=== PATIENT | female | born 1940 | race Caucasian/White ===

== ENCOUNTER 2023-05-11 09:53 | Outpatient (OUT) | payer MEDICARE, OTHER, SELFPAY ==
--- NOTE | 2023-05-11 09:56 | VEIN_ITS ---
Patient: DANIS MARTINO Exam Date: 05/11/2023 : 1940 Gender:F Ordering : DR UNA BACON M.D. Admission #: [id number] Family : DR Robert Lopez D.O. Order #: [id number] CLICK HERE TO VIEW EXAM RADIOLOGY REPORT PROCEDURE: FACILITY [facility] COMPREHENSIVE VEIN CENTER - OFFICE VISIT INITIAL COMPARISON: None. PROGRESS NOTES: [age] old female who presents with a 20 year history of bulging dilated veins, discolored and painful legs, swelling, cramping, edema. The patient's right leg symptoms are worse than the left. There has been a progression of symptoms over time. This increases with prolonged leg dependency. The patient describes an improvement with rest and elevation. The patient denies any signs and symptoms to suggest arterial ischemia. The patient describes a family history varicose veins on maternal side, diabetes, heart disease, cancer. The patient has drinking and smoking history of : Former smoker. Denies alcohol use. Patient has a past medical history significant for history of deep vein thrombosis, pulmonary hypertension, chronic venous insufficiency, back pain, arthritis, sciatica, diabetes. The patient has history of prior deep venous thrombus and pulmonary embolus. See separate history and physical for medication list. No prior treatment for varicose or spider veins. Past treatments have included use of compression stockings. After review of nurse notes, history and physical exam I discussed at length the pathophysiology of venous hypertension and possible treatments, therapies and strategies available. We discussed at length the importance of elevating the lower extremities above the level of the heart, increased physical activity and compression stocking use. Ultrasound venous reflux study performed today was discussed at length with the patient. The report demonstrates abnormally dilated and incompetent bilateral great saphenous and anterior accessory saphenous veins, numerous dilated incompetent branch saphenous varicosities, several incompetent applied science and technologies dean veins. PHYSICAL EXAM: The right leg demonstrates multiple varicosities, prominent reticular and spider veins, no ulceration, marked edema, moderate skin discoloration. The left leg demonstrates multiple varicosities, several reticular and spider veins, no ulceration, moderate edema, moderate skin discoloration. Both thighs, legs and feet were symmetrically warm to the touch. Good posterior tibial and dorsalis pedis pulses were present bilaterally. IMPRESSION: 1. Bilateral lower extremity venous insufficiency 2. Bilateral lower extremity varicose veins 3. Bilateral lower extremity subcutaneous edema 4. No flow significant arterial disease 5. CEAP: C4a, EC, AP, MA PLAN: 1. Continued use of compression stockings 2. Elevated legs and increased physical activity symptomatic relief 3. Endovenous laser ablation of right GSV, left GSV, right AASV, left AASV, bilateral microfoam chemical ablation, and bilateral sclerotherapy. Nurse notes, history and physical were reviewed and confirmed, see attached forms. The nurse was present throughout the physical exam and consultation Dictated by: Nick Sanchez M.D. on 05/11/2023 at 12:43 Approved by: Nick Sanchez M.D. on 05/11/2023 at 12:51
--- NOTE | 2023-05-11 09:56 | VEIN_ITS ---
Patient: DANIS MARTINO Exam Date: 05/11/2023 : 1940 Gender:F Ordering : DR UNA BACON M.D. Admission #: [id number] Family : DR Robert Lopez D.O. Order #: [id number] CLICK HERE TO VIEW EXAM RADIOLOGY REPORT PROCEDURE: VC EXT VENOUS REFLUX DEBRA LMTD COMPARISON: None. INDICATIONS: Pain due to varicose veins of bilateral legs I83.813 TECHNIQUE: Duplex imaging of the lower extremity to assess the deep and superficial venous system for the presence of deep or superficial venous incompetence and to document the location and severity of disease. The study includes evaluation of the great saphenous vein (GSV), anterior accessory saphenous vein (AASV) and small saphenous vein (SSV). Patient scanned in reverse Trendelenburg and standing. FINDINGS: RIGHT LOWER EXTREMITY: Saphenofemoral Junction Reflux: Yes 10.3mm 1.1 sec GSV: Diam (mm) Reflux/ Time (sec) Proximal Thigh 9.5 Yes 0.8 Mid Thigh 6.6 Yes 0.6 Distal Thigh 3.3 Yes 2.1 Prox Calf 5.5 Yes 1.7 Mid Calf 4.0 Yes 0.4 Saphenopopliteal Junction Reflux: 3.3mm Yes 0.5 SSV: Proximal Calf 3.6 Yes 0.2 Mid Calf 2.8 Yes 0.3 AASV: Proximal Thigh 5.5 Yes 2.1 Mid Thigh 5.5 Yes 1.6 Distal Thigh Thrombi: No acute or chronic thrombus visualized. Compressibility: Normal. Flow: Mild deep venous reflux. Preforator: Dist/medial lower leg 3.1mm, 4.2s reflux. Dist medial lower leg 5.8 mm, 2.2s reflux. Prox post medial calf 3.4 mm, 1.2s reflux. Tech Note: Complex fluid collection medial right popliteal fossa measures 3.1 x 1.8 x 0.9 cm. Limited visualization of calf veins due to edema and body habitus. Large varicose vein mid thigh that decompresses GSV measures 6.7 mm with 0.7s reflux. Incompetent varicose vein medial knee measures 4.7 mm with 1.0s reflux. Distal medial lower leg varicosity off of machine burrer measures 4.0 mm with 1.2s reflux. Mid lateral lower leg varicose vein measures 4.1 mm with 0.8s reflux. LEFT LOWER EXTREMITY: Saphenofemoral Junction Reflux: Yes 11.9 mm 3.6 sec GSV: Diam (mm) Reflux/Time (sec) Proximal Thigh 10.2 Yes 4.5 Mid Thigh 6.9 Yes 0.9 Distal Thigh 5.8 Yes 1.7 Prox Calf 5.0 Yes 0.4 Mid Calf 3.8 Yes 2.6 Saphenopopliteal Junction Relux: 3.1 mm Yes 0.2 SSV: Proximal Calf 3.3 Yes 0.2 Mid Calf 3.3 Yes 1.3 AASV: Proximal Thigh 5.5 Yes 1.0 Mid Thigh 6.7 Yes 1.6 Distal Thigh Thrombi: Partial compression of distal femoral vein. Compressibility: Partial compression of dist FV. Flow: Moderate reflux in popliteal vein. Operations Consultant: Distal medial lower leg 2.5 mm, 1.4s reflux. Proximal posterior calf 4.1 mm with 1.5s reflux. Tech Note: Limited visualization of calf veins due to edema and body habitus. Patient unable to tolerate compression of distal thigh femoral vein. Thigh extension of SSV. Incompetent varicose vein proximal medial lower leg 4.4mm with 1.0s reflux. Proximal posterior calf varicose vein off of machine burrer measures 3.4 mm with 2.6s reflux. Varicose vein proximal medial anterior lower leg measures 3.5 mm with 0.4s reflux. Mid medial thigh varicose vein off GSV measures 4.0 mm with 3.3s reflux. CONCLUSION: 1. Abnormally dilated and incompetent bilateral great saphenous veins and bilateral anterior accessory saphenous veins. 2. Numerous dilated and incompetent branch saphenous varicosities bilaterally. 3. Several dilated and incompetent machine burrer veins bilaterally. Dictated by: Nick Sanchez M.D. on 05/11/2023 at 11:33 Approved by: Nick Sanchez M.D. on 05/11/2023 at 12:43
== END 2023-05-11 09:54 ==
PROVIDERS: PCP Radiology Diagnostic Radiology; Visit Provider Radiology Diagnostic Radiology
DX: I83.813 Varicose veins of bilateral lower extremities with pain (principal)
CPT/HCPCS: 93970; G0463

== ENCOUNTER 2023-05-24 09:54 | Outpatient (OUT) | payer MEDICARE, OTHER, SELFPAY ==
--- NOTE | 2023-05-24 09:56 | VEIN_ITS ---
The [address] [address] Patient Name: DANIS MARTINO MRN: [id number] date: 1940 Sex: F Assigned Patient Location: Current Patient Location: Accession/Order Number: [id number] Exam Date: 05/24/2023 10:00 Report Date: 05/24/2023 11:25 At the request of: UNA BACON Procedure: VC Endovenous Ablation 1VeinRT EXAMINATION: VC Endovenous Ablation 1VeinRT HISTORY: Pain due to varicose veins of bilateral legs I83.813 COMPARISON: No relevant comparison available. TECHNIQUE: The risks and benefits of the procedure had been previously discussed, and were rediscussed at length. Informed written consent was obtained. Sarah Beth Holly and Khanh Kenny assisted. Time out procedure was performed. The right lower extremity was prepared and draped in the usual sterile fashion to allow knee flexion in the sterile field. Duplex ultrasound probe was draped in a sterile cover, sterile transmission gel was used. Venous mapping was performed with the areas of dilation and large tributaries marked. The total length was 39 cm from the entry 5 cm below the knee to 3 cm below the saphenofemoral junction. Initial access was obtained in the lower calf however the wire could not be advanced through the area of tortuosity in the upper to mid calf. The diameter of the greater saphenous vein ranged from 4-10 mm. A 30 gauge needle and 1% buffered lidocaine was used to anesthetize the entry site. A 4 mm incision was made with a scalpel and the saphenous vein was entered percutaneously under direct ultrasound guidance with a micropuncture set, a single stick was successful in gaining access. A micro-guide wire was inserted and the needle removed. A micro-set including a dilator was inserted over the microwire and the needle and dilator were removed. A 0.018 guide wire was inserted through the micro-set and threaded through the saphenous vein to the saphenofemoral junction. The dilator was removed and an introducer sheath was inserted over the wire until the end of the sheath entered the saphenofemoral junction. The dilator and wire were removed and the 600 micron fiber was introduced and placed and positioned so that it extended beyond the sheath and was 3 cm peripheral to the saphenofemoral femoral junction. Final position of the fiber was determined by ultrasound guidance and duplex imaging. Tumescent anesthetic was delivered by ultrasound guidance. 300 cc of fluid was delivered along the entire course of the saphenous vein. The solution consisted of 1000 cc of normal saline with 40 mL of 1% lidocaine and 20 mL of sodium bicarbonate. A final positioning check was made. The energy source was turned on by means of the foot pedal and the fiber and sheath were withdrawn. The total number of Joules delivered was 2368. The laser was active for 296 seconds under continuous pulse, average laser use of 8 J. Laser start time 10:59 AM 05/24/2023 . Laser stop time 11:04 AM 05/24/2023 . A duplex ultrasound revealed compressibility and flow at the saphenofemoral junction immediately after the procedure. Hemostasis at the access site was achieved. The skin incision of the saphenous vein was closed with a 4 x 4. A compression stocking was applied. Postop instructions were given. A follow up appointment was recommended and scheduled. The patient tolerated the procedure well and was discharged in good condition . IMPRESSION: Technically successful endovenous laser ablation right great saphenous vein Electronically authenticated by: UNA BACON Date: 05/24/2023 11:25
[2023-05-24] MEDS: 0.9 % SODIUM CHLORIDE 500 ML, LIDOCAINE HCL 20 ML, SODIUM BICARBONATE 10 MEQ INJ (10:23)
[2023-05-24] MEDS: LIDOCAINE HCL 10 ML, SODIUM BICARBONATE 1 MEQ INJ (10:24)
== END 2023-05-24 09:55 | disposition home or self-care (01) ==
LOC: VC 09:55
PROVIDERS: PCP Radiology Diagnostic Radiology; Visit Provider Radiology Diagnostic Radiology
DX: I83.813 Varicose veins of bilateral lower extremities with pain (principal)
CPT/HCPCS: 36478

== ENCOUNTER 2023-06-02 08:53 | Outpatient (RCR) | payer MEDICARE, OTHER, SELFPAY | END 2023-06-27 16:50 | disposition home or self-care (01) | LOC: MM 08:53 | PROVIDERS: PCP Internal Medicine; Visit Provider Internal Medicine | DX: Z51.81 Encounter for therapeutic drug level monitoring (principal); Z79.01 Long term (current) use of anticoagulants; I82.409 Acute embolism and thrombosis of unspecified deep veins of unspecified lower extremity | CPT/HCPCS: 85610; G0463 ==

== ENCOUNTER 2023-06-02 10:47 | Outpatient (OUT) | payer MEDICARE, OTHER, SELFPAY ==
--- NOTE | 2023-06-02 10:48 | VEIN_ITS ---
Patient: DANIS MARTINO Exam Date: 06/02/2023 : 1940 Gender:F Ordering : DR UNA BACON M.D. Admission #: [id number] Family : Order #: [id number] CLICK HERE TO VIEW EXAM RADIOLOGY REPORT PROCEDURE: VC FACILITY EST LMTD VEIN CENTER - OFFICE VISIT FOLLOW UP COMPARISON: None. PROGRESS NOTES: The patient reports pronounced tenderness within medial right thigh which has slowly been improving. Patient was unable to wear compression stockings postprocedure and has been having her leg wrapped by her daughter. The patient has followed our recommendations to walk 20-30 minutes once or twice per day on most days, but some days is unable to walk due to pain from chronic sciatica. Physical exam demonstrates mild bruising of medial right thigh. No erythema or swelling to suggest infection. 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 Review of the ultrasound performed the same day demonstrates occlusive thrombus extending throughout the treated vein, see separate report, consistent with a successful ablation. No thrombus extending into or beyond the saphenofemoral junction. The patient expressed a desire to proceed with treatment of left great saphenous vein after allowing more time for right leg to heal. The patient was informed that treatment was a process and would require several procedures/sessions, but these could be stretched out to accommodate patient. IMPRESSION: 1. Successful ablation of the right great saphenous vein 2. Persistent varicose veins and bilateral lower extremity symptoms PLAN: Endovenous laser ablation of left great saphenous vein. Nurse notes, history and physical were reviewed and confirmed, see attached forms. The nurse was present throughout the physical exam and consultation Dictated by: Nick Sanchez M.D. on 06/02/2023 at 11:47 Approved by: Nick Sanchez M.D. on 06/02/2023 at 11:54
--- NOTE | 2023-06-02 10:49 | VEIN_ITS ---
Patient: DANIS MARTINO Exam Date: 06/02/2023 : 1940 Gender:F Ordering : DR UNA BACON M.D. Admission #: [id number] Family : Order #: [id number] CLICK HERE TO VIEW EXAM RADIOLOGY REPORT PROCEDURE: VC EXT VENOUS RT LMTD COMPARISON: None. INDICATIONS: I80.01 Phlebitis of superficial veins of rt lower extremity TECHNIQUE: Lower extremity albert scale and Duplex Doppler evaluation of the deep venous system from the inguinal ligament through the calf veins. FINDINGS: REGION: Right lower extremity. THROMBI: Negative for DVT. Heat induced thrombus visualized 1.9 cm from the SFJ. The heat induced thrombus extends from groin to mid thigh. COMPRESSIBILITY: Non-compressible segments. FLOW: Areas of no flow. OTHER: CONCLUSION: 1. Successful post ablation occlusion of treated portion of right great saphenous vein. Dictated by: Nick Sanchez M.D. on 06/02/2023 at 11:46 Approved by: Nick Sanchez M.D. on 06/02/2023 at 11:47
== END 2023-06-02 10:48 | disposition home or self-care (01) ==
LOC: VC 10:47
PROVIDERS: PCP Radiology Diagnostic Radiology; Visit Provider Radiology Diagnostic Radiology
DX: I80.01 Phlebitis and thrombophlebitis of superficial vessels of right lower extremity (principal); I83.813 Varicose veins of bilateral lower extremities with pain
CPT/HCPCS: 93971; G0463

== ENCOUNTER 2023-06-28 09:04 | Outpatient (RCR) | payer MEDICARE, OTHER, SELFPAY | END 2023-07-28 17:23 | disposition home or self-care (01) | LOC: MM 09:04 | PROVIDERS: Visit Provider Internal Medicine | DX: I83.813 Varicose veins of bilateral lower extremities with pain (principal); Z51.81 Encounter for therapeutic drug level monitoring; Z79.01 Long term (current) use of anticoagulants; I82.409 Acute embolism and thrombosis of unspecified deep veins of unspecified lower extremity | CPT/HCPCS: 36478; 85610; G0463 ==

== ENCOUNTER 2023-06-28 10:02 | Outpatient (OUT) | payer MEDICARE, OTHER, SELFPAY ==
--- NOTE | 2023-06-28 10:04 | VEIN_ITS ---
[address] [address] Patient Name: DANIS MARTINO MRN: [id number] date: 1940 Sex: F Assigned Patient Location: Current Patient Location: Accession/Order Number: [id number] Exam Date: 06/28/2023 10:05 Report Date: 06/28/2023 11:08 At the request of: UNA BACON Procedure: VC Endovenous Ablation 1VeinRT EXAMINATION: VC Endovenous Ablation 1VeinRT HISTORY: I83.813 Pain due to varicose veins of bilateral leg veins COMPARISON: No relevant comparison available. TECHNIQUE: The risks and benefits of the procedure had been previously discussed, and were rediscussed at length. Informed written consent was obtained. Sarah Beth Holly and Khanh Kenny assisted. Time out procedure was performed. The right lower extremity was prepared and draped in the usual sterile fashion to allow knee flexion in the sterile field. Duplex ultrasound probe was draped in a sterile cover, sterile transmission gel was used. Venous mapping was performed with the areas of dilation and large tributaries marked. The total length was 17 cm from the entry mid thigh to 3 cm below the saphenofemoral junction. The diameter of the anterior accessory saphenous vein ranged from 4-6 mm. A 30 gauge needle and 1% buffered lidocaine was used to anesthetize the entry site. A 4 mm incision was made with a scalpel and the saphenous vein was entered percutaneously under direct ultrasound guidance with a micropuncture set, a single stick was successful in gaining access. A micro-guide wire was inserted and the needle removed. A micro-set including a dilator was inserted over the microwire and the needle and dilator were removed. A 0.018 guide wire was inserted through the micro-set and threaded through the saphenous vein to the saphenofemoral junction. The dilator was removed and an introducer sheath was inserted over the wire until the end of the sheath entered the saphenofemoral junction. The dilator and wire were removed and the 600 micron fiber was introduced and placed and positioned so that it extended beyond the sheath and was 3 cm peripheral to the saphenofemoral femoral junction. Final position of the fiber was determined by ultrasound guidance and duplex imaging. Tumescent anesthetic was delivered by ultrasound guidance. 150 cc of fluid was delivered along the entire course of the saphenous vein. The solution consisted of 1000 cc of normal saline with 40 mL of 1% lidocaine and 20 mL of sodium bicarbonate. A final positioning check was made. The energy source was turned on by means of the foot pedal and the fiber and sheath were withdrawn. The total number of Joules delivered was 640. The laser was active for 80 seconds under continuous pulse, average laser use of 8 J. Laser start time 10:39 AM 06/28/2023 . Laser stop time 10:43 AM 06/28/2023 . A duplex ultrasound revealed compressibility and flow at the saphenofemoral junction immediately after the procedure. Hemostasis at the access site was achieved. The skin incision of the saphenous vein was closed with a 4 x 4. A compression stocking was applied. Postop instructions were given. A follow up appointment was recommended and scheduled. The patient tolerated the procedure well and was discharged in good condition . VEIN/VC Endovenous Ablation 1VeinRT IMPRESSION: Technically successful endovenous laser ablation of the right anterior accessory saphenous vein Electronically authenticated by: UNA BACON Date: 06/28/2023 11:08
[2023-06-28] MEDS: LIDOCAINE HCL 10 ML, SODIUM BICARBONATE 1 MEQ INJ (11:05)
[2023-06-28] MEDS: 0.9 % SODIUM CHLORIDE 500 ML, LIDOCAINE HCL 20 ML, SODIUM BICARBONATE 10 MEQ INJ (11:10)
== END 2023-06-28 10:03 | disposition home or self-care (01) ==
LOC: VC 10:02
PROVIDERS: PCP Radiology Diagnostic Radiology; Visit Provider Radiology Diagnostic Radiology
DX: I83.813 Varicose veins of bilateral lower extremities with pain (principal)
CPT/HCPCS: 36478

== ENCOUNTER 2023-06-30 15:59 | Emergency (ER) | payer MEDICARE, OTHER, SELFPAY ==
[2023-06-30 16:04] VITALS: BP 158/90; PULSE 82; RESP 18; TEMP 36.6; O2SAT 94
[2023-06-30] MEDS: BACITRACIN 0.9 GM PACKET 1 PACKET TOPICAL (17:03)
[2023-06-30] MEDS: ADACEL DIPH,PERTUSS(ACELL),TET VAC/PF 0.5 ML ADULT SYRINGE IM (17:04)
--- NOTE | 2023-06-30 17:18 | ED.SKABFB1 ---
HPI - Skin/Abscess/Foreign Bdy General Chief complaint: Skin/Abscess/Foreign Body Stated complaint: LACERATION Time Seen by Provider: 06/30/23 16:26 Source: patient Mode of arrival: Wheelchair Limitations: no limitations History of Present Illness HPI narrative: patient is an 82-year-old female presents to the emergency department for the evaluation of a skin tear/laceration to the right doherty. She states just prior to arrival she bumped her doherty into a wheelchair and sustained a laceration. She has a history of peripheral edema and takes a diuretic daily for this. She has also had cellulitis in this leg previously so she states it is sore. She denies any falls or other injuries. Unknown last tetanus shot. Currently she is draining serosanguineous fluid from the area of laceration. Related Data Previous Rx's Medication Instructions Recorded cephalexin 500 mg capsule 500 mg PO Q8H 7 days #21 caps 06/30/23 mupirocin 2 % topical ointment 1 applic topical BID #15 grams 06/30/23 Allergies Allergy/AdvReac Type Severity Reaction Status Date / Time Penicillins Allergy Severe Verified 06/30/23 16:08 adhesive tape Allergy Intermediate Verified 06/30/23 16:08 celecoxib [From Celebrex] Allergy Intermediate Verified 06/30/23 16:08 Review of Systems ROS Constitutional Denies: fever or chills Cardiovascular Denies: chest pain Respiratory Denies: shortness of breath Gastrointestinal Denies: nausea or vomiting Musculoskeletal Reports: extremity pain; Denies: back pain or neck pain Integumentary/Breast Denies: rash Hematologic/Lymphatic Reports: easy bruising Exam Narrative Exam Narrative: Gen.: Awake, alert, in no distress Head: Normocephalic, atraumatic ENT: Moist mucous membranes Respiratory: No respiratory distress Extremities: Moves extremities equally, 5 cm L-shaped laceration to the right anterior doherty, the surface of the skin appears bruised and ecchymotic consistent with a skin tear, laceration extends mildly into the subcutaneous tissue and there is serosanguineous fluid leaking from the laceration. No muscle, fascia or bony visualization Psych: Normal mood and affect Neuro: No focal neuro deficit Skin: Warm, dry Constitutional Vital Signs, click to edit/add: Last Vital Signs Temp 98 F 06/30/23 16:04 Pulse 82 06/30/23 16:04 Resp 18 08/03/23 16:04 BP 158/90 H 06/30/23 16:04 Pulse Ox 94 L 06/30/23 16:04 O2 Del Method Room Air 06/30/23 16:04 Course Vital Signs Vital signs: Vital Signs Temperature 98 F 06/30/23 16:04 Pulse Rate 82 06/30/23 16:04 Respiratory Rate 18 06/30/23 16:04 Blood Pressure 158/90 H 06/30/23 16:04 Pulse Oximetry 94 L 06/30/23 16:04 Oxygen Delivery Method Room Air 06/30/23 16:04 Temperature 98 F 06/30/23 16:04 Pulse Rate 82 06/30/23 16:04 Respiratory Rate 18 06/30/23 16:04 Blood Pressure 158/90 H 06/30/23 16:04 Pulse Oximetry 94 L 06/30/23 16:04 Oxygen Delivery Method Room Air 06/30/23 16:04 MDM - Skin/Abscess/Foreign Bdy MDM Narrative Medical decision making narrative: Laceration was repaired without difficulty, tetanus updated in the Emergency Room. The patient was cautioned that because of her peripheral edema, the area will continue to leak fluid for several days. she has an appointment with her doctor next week who can reevaluate the area and determine when sutures need to be removed although she was instructed to have the sutures removed in 8-10 days. Antibiotic ointment and Keflex were given for home to prevent infection as the patient has a history of cellulitis to this leg. She is neurovascularly intact at discharge. Laceration repair: Done under sterile conditions. The use of Shur-Clens prep the area. Local injection with lidocaine 1% was used, approximately 5 cc. The wound was irrigated copiously with normal saline. The wound was explored there was no evidence of foreign material. The laceration was approximated with 3-0 nylon. 5 simple interrupted sutures were placed. Patient tolerated the procedure well. The patient was neurovascularly intact post. the patient had bacitracin applied to the laceration and a dry sterile dressing was place. The patient will need to follow-up in the next 8-10 days for removal Discharge Plan Discharge Chief Complaint: Skin/Abscess/Foreign Body Clinical Impression: Laceration of right lower leg Patient Disposition: Home, Self-Care Time of Disposition Decision: 17:14 Condition: Good Prescriptions / Home Meds: New mupirocin 2 % ointment 1 applic topical BID Qty: 15 0RF cephalexin 500 mg capsule 500 mg PO Q8H 7 Days Qty: 21 0RF Instructions: Laceration (ED) Additional Instructions: Sutures removed in 8-[address] Lopez; apply antibiotic ointment to sutures and cover with dressing of your choice; dressing changes once daily Stand Alone Forms: Portal Instructions Referrals: Robert Lopez DO [Primary Care Provider] - 1 week
--- NOTE | 2023-06-30 17:20 | PC.NURSE ---
laceration cleansed with sterile saline and hibiclens, [address] and bacitracin applied prior to dessing.
== END 2023-06-30 17:56 | disposition home or self-care (01) ==
PROVIDERS: Emergency Provider Emergency Medicine; PCP Internal Medicine
DX: S81.811A Laceration without foreign body, right lower leg, initial encounter (principal); Z23 Encounter for immunization; W22.8XXA Striking against or struck by other objects, initial encounter
CPT/HCPCS: 12002; 90471; 90715; 99283

== ENCOUNTER 2023-07-06 12:50 | Outpatient (OUT) | payer MEDICARE, OTHER, SELFPAY ==
--- NOTE | 2023-07-06 12:52 | VEIN_ITS ---
Patient: DANIS MARTINO Exam Date: 07/06/2023 : 1940 Gender:F Ordering : DR UNA BACON M.D. Admission #: [id number] Family : Order #: [id number] CLICK HERE TO VIEW EXAM RADIOLOGY REPORT PROCEDURE: VC EXT VENOUS RT LMTD COMPARISON: VC EXT VENOUS RT LMTD, 06/02/2023. INDICATIONS: I80.01 Phlebitis of superficial veins of rt lower extremity TECHNIQUE: Lower extremity albert scale and Duplex Doppler evaluation of the deep venous system from the inguinal ligament through the calf veins. FINDINGS: REGION: Right lower extremity. THROMBI: Negative for DVT. Heat induced thrombus in AASV 4.1 cm from SFJ and extends to mid thigh. COMPRESSIBILITY: Non-compressible segments. FLOW: Areas of no flow. OTHER: Complex cystic area medial right popliteal fossa measures 4.4 x 2.8 x 1.6 cm. CONCLUSION: 1. Successful post ablation occlusion of right anterior accessory saphenous vein. Dictated by: Nick Sanchez M.D. on 07/06/2023 at 13:58 Approved by: Nick Sanchez M.D. on 07/06/2023 at 14:00
--- NOTE | 2023-07-06 12:52 | VEIN_ITS ---
Patient: DANIS MARTINO Exam Date: 07/06/2023 : 1940 Gender:F Ordering : DR UNA BACON M.D. Admission #: [id number] Family : Order #: [id number] CLICK HERE TO VIEW EXAM RADIOLOGY REPORT PROCEDURE: [facility] EST [facility] - OFFICE VISIT FOLLOW UP [facility] PROGRESS NOTES: The patient reports improvement in leg symptoms. There has been interval reduction in varicosities. The patient has followed our recommendations to walk 20-30 minutes once or twice per day since the procedure. Physical exam demonstrates decrease in varicosities of the leg. 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 New wound anterior right doherty; patient describes injuring area on her wheelchair and is currently being seen by wound clinic. Review of the ultrasound performed the same day demonstrates occlusive thrombus extending throughout the treated vein(s), see separate report, consistent with a successful ablation. No thrombus extending into or beyond the saphenofemoral junction. The patient expressed a desire to proceed with treatment of remaining incompetent varicosities. The patient was informed that treatment was a process and would require several procedures/sessions. VEIN/[facility] EST LMTD IMPRESSION: 1. Successful ablation of the right anterior accessory saphenous vein(s). 2. 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 PLAN: 1. Endovenous laser ablation of left anterior accessory saphenous vein. Nurse notes, history and physical were reviewed and confirmed, see attached forms. The nurse was present throughout the physical exam and consultation Dictated by: Nick Sanchez M.D. on 07/06/2023 at 14:00 Approved by: Nick Sanchez M.D. on 07/06/2023 at 14:02
== END 2023-07-06 12:51 | disposition home or self-care (01) ==
LOC: VC 12:51
PROVIDERS: PCP Radiology Diagnostic Radiology; Visit Provider Radiology Diagnostic Radiology
DX: I80.01 Phlebitis and thrombophlebitis of superficial vessels of right lower extremity (principal); I83.813 Varicose veins of bilateral lower extremities with pain
CPT/HCPCS: 93971; G0463

== ENCOUNTER 2023-07-18 12:58 | Outpatient (OUT) | payer MEDICARE, OTHER, SELFPAY | END 2023-07-18 12:59 | disposition home or self-care (01) | LOC: WC 12:58 | PROVIDERS: PCP Radiology Diagnostic Radiology; Visit Provider Physician Assistant | DX: I87.331 Chronic venous hypertension (idiopathic) with ulcer and inflammation of right lower extremity (principal); L97.811 Non-pressure chronic ulcer of other part of right lower leg limited to breakdown of skin; R60.1 Generalized edema | CPT/HCPCS: G0463 ==

== ENCOUNTER 2023-07-20 11:01 | Outpatient (OUT) | payer MEDICARE, OTHER, SELFPAY ==
[2023-07-20 11:37] LABS: Bilirubin Urine NEGATIVE (NEGATIVE); Blood Urine TRACE-I (NEGATIVE); Color Urine LT. YELLOW (YELLOW); Glucose Urine UA NEGATIVE (NEGATIVE); Ketones Urine NEGATIVE (NEGATIVE); Leukocyte Esterase Urine MODERATE (NEGATIVE); Nitrite Urine NEGATIVE (NEGATIVE); Protein Urine NEGATIVE (NEG/TRACE); Specific Gravity Urine 1.015 (1.005-1.025); Urobilinogen Urine 0.2 EU/dL (0.2-1.0); pH Urine 6.5 (5.0-9.0)
[2023-07-20 11:38] LABS: Clarity Urine SLIGHTLY CLOUDY (CLEAR)
[2023-07-20 11:49] LABS: Bacteria Urine TRACE #/HPF (NONE SEEN); Mucus Urine NONE SEEN (NONE SEEN); RBC Urine NONE SEEN #/HPF (0-2); Squamous Epithelial Cell Urine FEW #/LPF (NONE/RARE)
[2023-07-20 11:50] LABS: Cast Seen? NONE SEEN #/LPF (NONE SEEN); Crystals Seen? None Seen #/HPF (None Seen); Urine Culture Indicated ALREADY ORDERED
== END 2023-07-20 11:02 | disposition home or self-care (01) ==
PROVIDERS: PCP Internal Medicine; Visit Provider Internal Medicine
DX: R30.0 Dysuria (principal); I83.813 Varicose veins of bilateral lower extremities with pain; Z51.81 Encounter for therapeutic drug level monitoring; Z79.01 Long term (current) use of anticoagulants; I82.409 Acute embolism and thrombosis of unspecified deep veins of unspecified lower extremity
CPT/HCPCS: 81001; 85610; 87086

== ENCOUNTER 2023-07-29 08:37 | Outpatient (RCR) | payer MEDICARE, OTHER, SELFPAY | END 2023-08-26 16:41 | disposition home or self-care (01) | LOC: MM 08:37 | PROVIDERS: PCP Internal Medicine; Visit Provider Internal Medicine | DX: Z51.81 Encounter for therapeutic drug level monitoring (principal); Z79.01 Long term (current) use of anticoagulants; I82.409 Acute embolism and thrombosis of unspecified deep veins of unspecified lower extremity | CPT/HCPCS: 85610; G0463 ==

== ENCOUNTER 2023-08-04 10:54 | Outpatient (OUT) | payer MEDICARE, OTHER, SELFPAY | END 2023-08-04 10:55 | disposition home or self-care (01) | LOC: WC 10:54 | PROVIDERS: PCP Internal Medicine; Visit Provider Surgery | DX: I87.331 Chronic venous hypertension (idiopathic) with ulcer and inflammation of right lower extremity (principal); L97.811 Non-pressure chronic ulcer of other part of right lower leg limited to breakdown of skin; Z51.81 Encounter for therapeutic drug level monitoring; Z79.01 Long term (current) use of anticoagulants; I82.409 Acute embolism and thrombosis of unspecified deep veins of unspecified lower extremity | CPT/HCPCS: A6213; G0463 ==

== ENCOUNTER 2023-08-04 11:49 | Outpatient (OUT) | payer MEDICARE, OTHER, SELFPAY ==
[2023-08-04 12:16] LABS: Basophils Percent Auto 0.8 % (0.2-2.0); Eosinophils Absolute Auto 0.1 10^3/uL (0.0-0.7); Eosinophils Percent Auto 1.7 % (0.9-7.0); Hematocrit 41.5 % (36.0-48.0); Hemoglobin 13.6 g/dL (12.0-16.0); Immature Granulocytes Abs Auto 0.01 10^3/uL (0.00-0.03); Immature Granulocytes Pct Auto 0.2 % (0.0-0.5); Lymphocytes Absolute Auto 0.9 10^3/uL (1.2-3.8); Mean Corpuscular HGB Conc 32.8 g/dL (29.9-35.2); Mean Corpuscular Hemoglobin 30.3 pg (26.7-34.0); Mean Corpuscular Volume 92.4 fL (81.0-99.0); Monocytes Absolute Auto 0.6 10^3/uL (0.3-0.8); Monocytes Percent Auto 10.7 % (1.7-12.0); Neutrophils Absolute Auto 3.7 10^3/uL (1.4-6.5); Neutrophils Percent Auto 69.6 % (43.0-75.0); Platelet Count 182 10^3/uL (150-450); Red Blood Count 4.49 10^6/uL (4.20-5.40); Red Cell Distribution Width 13.3 % (11.0-15.0); White Blood Count 5.2 10^3/uL (4.0-11.0)
[2023-08-04 13:22] LABS: Anion Gap 10.6; BUN Creatinine Ratio 19.5; Calcium 9.5 mg/dL (8.5-10.1); Carbon Dioxide 29.7 mmol/L (21.0-32.0); Chloride 105 mmol/L (98-107); Estimated GFR (African America >60 (>=60); Estimated GFR (Non-African Ame >60 (>=60); Glucose 112 mg/dL (74-106); Potassium 4.3 mmol/L (3.5-5.1); Sodium 141 mmol/L (136-145)
== END 2023-08-04 11:50 | disposition home or self-care (01) ==
LOC: LAB 11:56
PROVIDERS: PCP Internal Medicine; Visit Provider Physician Assistant
DX: L03.115 Cellulitis of right lower limb (principal); Z51.81 Encounter for therapeutic drug level monitoring; Z79.01 Long term (current) use of anticoagulants; I82.409 Acute embolism and thrombosis of unspecified deep veins of unspecified lower extremity
CPT/HCPCS: 36415; 80048; 85025; 85610

== ENCOUNTER 2023-08-11 09:23 | Outpatient (OUT) | payer MEDICARE, OTHER, SELFPAY | END 2023-08-11 09:24 | disposition home or self-care (01) | LOC: WC 09:24 | PROVIDERS: PCP Internal Medicine; Visit Provider Physician Assistant | DX: I87.331 Chronic venous hypertension (idiopathic) with ulcer and inflammation of right lower extremity (principal); L97.811 Non-pressure chronic ulcer of other part of right lower leg limited to breakdown of skin | CPT/HCPCS: 94667; A6213; G0463 ==

== ENCOUNTER 2023-08-11 11:36 | Inpatient (IN) | payer MEDICARE, OTHER, SELFPAY ==
[2023-08-11] VITALS (9 sets, daily range): BP systolic 149–161; BP diastolic 55–89; PULSE 64–88; RESP 16–20; TEMP 36.3–37.2; O2SAT 93–98; BMI 52.1; BMI 54.1
--- NOTE | 2023-08-11 11:58 | ED_ITS ---
HPI - General Adult General Chief complaint: Extremity Injury, Lower Stated complaint: LOWER EXTREMITY INJURY RIGHT LEG Time Seen by Provider: 08/11/23 11:52 Source: patient Mode of arrival: Wheelchair History of Present Illness HPI narrative: 82-year-old female presents for right leg wound and to be admitted. She was sent here from wound care. In early June she sustained a wound to her lower right leg anteriorly when she hit it on a piece of metal. She's been on two different antibiotics and it has not improved and now has foul-smelling purulent drainage. No fever or vomiting. the pain is moderate. Related Data Home Medications Medication Instructions Recorded Confirmed atorvastatin 20 mg tablet 20 mg PO QPM 08/11/23 08/11/23 colestipol 1 gram tablet 1 g PO DAILY 08/11/23 08/11/23 furosemide 40 mg tablet 40 mg PO DAILY 08/11/23 08/11/23 levetiracetam 500 mg tablet 1,500 mg PO DAILY 08/11/23 08/11/23 losartan 50 mg tablet 50 mg PO DAILY 08/11/23 08/11/23 polysaccharide iron complex 150 mg 150 mg PO .every other day 08/11/23 08/11/23 iron capsule (iFerex 150) potassium chloride 10 mEq 10 meq PO DAILY 08/11/23 08/11/23 capsule,extended release warfarin 5 mg tablet 2.5 mg PO DAILY 08/11/23 08/11/23 Allergies Allergy/AdvReac Type Severity Reaction Status Date / Time Penicillins Allergy Severe Verified 06/30/23 16:08 adhesive tape Allergy Intermediate Verified 06/30/23 16:08 celecoxib [From Celebrex] Allergy Intermediate Verified 06/30/23 16:08 Review of Systems ROS Narrative A ten point review of systems is negative except as noted above. Exam Narrative Exam Narrative: Nurses note and vital signs reviewed and patient is not hypoxic. General: The patient appears well and in no apparent distress. Patient is resting comfortably on cart. Skin: Warm, dry, no pallor noted. There is no rash noted. Head: Normocephalic, atraumatic Eye: Normal conjunctiva, no drainage Ears, Nose, Mouth, and Throat: oral mucosa is moist. Nares patent. Cardiovascular: Regular Rate and Rhythm Respiratory: Patient is in no distress, no accessory muscle use, lungs are clear to auscultation, no wheezing, rales or rhonchi Back: non-tender GI: nontender Musculoskeletal: right lower leg anteriorly has an open wound with foul-smelling purulent drainage. Culture taken. Neurological: A&O, normal speech Psychiatric: Cooperative Constitutional Vital Signs, click to edit/add: Last Vital Signs Temp 98.4 F 08/11/23 11:43 Pulse 78 08/11/23 13:04 Resp 16 08/11/23 13:04 BP 160/55 H 08/11/23 13:04 Pulse Ox 98 08/11/23 13:04 O2 Del Method Room Air 08/11/23 12:23 Course Vital Signs Vital signs: Vital Signs Temperature 98.4 F 08/11/23 11:43 Pulse Rate 88 08/11/23 11:43 Respiratory Rate 16 08/11/23 11:43 Blood Pressure 154/88 H 08/11/23 11:43 Pulse Oximetry 97 08/11/23 11:43 Oxygen Delivery Method Room Air 08/11/23 11:43 Temperature 98.4 F 08/11/23 11:43 Pulse Rate 78 08/11/23 13:04 Respiratory Rate 16 08/11/23 13:04 Blood Pressure 160/55 H 08/11/23 13:04 Pulse Oximetry 98 08/11/23 13:04 Oxygen Delivery Method Room Air 08/11/23 12:23 Medical Decision Making MDM Narrative Medical decision making narrative: there is no gas in the soft tissues. Blood cultures are obtained as well as a wound culture and she's given IV Vanco and Zosyn with cultures pending. Treatment diagnosis and disposition were discussed with the patient. Differential Diagnosis Differential Diagnosis: cellulitis, abscess, osteomyelitis Lab Data Lab results reviewed: Yes I reviewed the patient's lab results Labs: Lab Results 08/11/23 Range/Units 12:15 WBC 5.5 (4.0-11.0) 10^3/uL RBC 4.38 (4.20-5.40) 10^6/uL Hgb 13.5 (12.0-16.0) g/dL Hct 41.2 (36.0-48.0) % MCV 94.1 (81.0-99.0) fL MCH 30.8 (26.7-34.0) pg MCHC 32.8 (29.9-35.2) g/dL RDW 13.3 (11.0-15.0) % Plt Count 197 (150-450) 10^3/uL MPV 10.4 (9.5-13.5) fL Neut % (Auto) 72.9 (43.0-75.0) % Lymph % (Auto) 16.5 L (20.5-60.0) % [place] % (Auto) 8.4 (1.7-12.0) % Eos % (Auto) 1.3 (0.9-7.0) % Baso % (Auto) 0.7 (0.2-2.0) % Neut # (Auto) 4.0 (1.4-6.5) 10^3/uL Lymph # (Auto) 0.9 L (1.2-3.8) 10^3/uL [place] # (Auto) 0.5 (0.3-0.8) 10^3/uL Eos # (Auto) 0.1 (0.0-0.7) 10^3/uL Baso # (Auto) 0.0 (0.0-0.1) 10^3/uL Abs Immat Gran (auto) 0.01 (0.00-0.03) 10^3/uL Imm/Tot Granulo (auto) 0.2 (0.0-0.5) % Sodium 141 (136-145) mmol/L Potassium 4.2 (3.5-5.1) mmol/L Chloride 104 (98-107) mmol/L Carbon Dioxide 28.2 (21.0-32.0) mmol/L Anion Gap 13.0 BUN 21.0 H (7.0-18.0) mg/dL Creatinine 0.80 (0.55-1.02) mg/dL Est GFR ( Amer) >60 (>=60) Est GFR (Non-Af Amer) >60 (>=60) BUN/Creatinine Ratio 26.3 Glucose 105 (74-106) mg/dL Calcium 9.5 (8.5-10.1) mg/dL Imaging Data right tibia-fibula: Radiologist's impression: Procedure: XR tibia fibula RT 2V STUDY: XR tibia fibula RT 2V, [id number] HISTORY: leg wound, rule out soft tissue gas COMPARISON: None FINDINGS: No acute fracture, dislocation, or suspicious osseous lesion. Soft tissue defect of the mid/lower anterior doherty. No underlying soft tissue gas or radiopaque foreign body. No adjacent osteolysis to suggest osteomyelitis. Large plantar calcaneal spur and mild Achilles insertional enthesopathy. 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 IMPRESSION: No soft tissue gas or evidence of osteomyelitis. Electronically authenticated by: JAREN WRIGHT Date: 08/11/2023 12:54 Discharge Plan Discharge Chief Complaint: Extremity Injury, Lower Clinical Impression: Cellulitis of leg Patient Disposition: Admitted As Inpatient Time of Disposition Decision: 13:20 Condition: Good
--- NOTE | 2023-08-11 12:00 | XR_ITS ---
The [address] [address] Patient Name: DANIS MARTINO MRN: [id number] date: 1940 Sex: F Assigned Patient Location: ER Current Patient Location: ER Accession/Order Number: [id number] Exam Date: 08/11/2023 12:10 Report Date: 08/11/2023 12:54 At the request of: SACHA LUCAS Procedure: XR tibia fibula RT 2V STUDY: XR tibia fibula RT 2V, [id number] HISTORY: leg wound, rule out soft tissue gas COMPARISON: None FINDINGS: No acute fracture, dislocation, or suspicious osseous lesion. Soft tissue defect of the mid/lower anterior doherty. No underlying soft tissue gas or radiopaque foreign body. No adjacent osteolysis to suggest osteomyelitis. Large plantar calcaneal spur and mild Achilles insertional enthesopathy. 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 XR/XR tibia fibula RT 2V IMPRESSION: No soft tissue gas or evidence of osteomyelitis. Electronically authenticated by: JAREN WRIGHT Date: 08/11/2023 12:54
--- NOTE | 2023-08-11 12:24 | PC.NURSE ---
wound culture completa nd wet to dry dressing in place using sterile saline and gauze.
[2023-08-11 13:01] LABS: Basophils Percent Auto 0.7 % (0.2-2.0); Eosinophils Absolute Auto 0.1 10^3/uL (0.0-0.7); Eosinophils Percent Auto 1.3 % (0.9-7.0); Hematocrit 41.2 % (36.0-48.0); Hemoglobin 13.5 g/dL (12.0-16.0); Immature Granulocytes Abs Auto 0.01 10^3/uL (0.00-0.03); Immature Granulocytes Pct Auto 0.2 % (0.0-0.5); Lymphocytes Absolute Auto 0.9 10^3/uL (1.2-3.8); Lymphocytes Percent Auto 16.5 % (20.5-60.0); Mean Corpuscular HGB Conc 32.8 g/dL (29.9-35.2); Mean Corpuscular Hemoglobin 30.8 pg (26.7-34.0); Mean Corpuscular Volume 94.1 fL (81.0-99.0); Mean Platelet Volume 10.4 fL (9.5-13.5); Monocytes Absolute Auto 0.5 10^3/uL (0.3-0.8); Monocytes Percent Auto 8.4 % (1.7-12.0); Neutrophils Percent Auto 72.9 % (43.0-75.0); Platelet Count 197 10^3/uL (150-450); Red Blood Count 4.38 10^6/uL (4.20-5.40); Red Cell Distribution Width 13.3 % (11.0-15.0); White Blood Count 5.5 10^3/uL (4.0-11.0)
[2023-08-11 13:17] LABS: Calcium 9.5 mg/dL (8.5-10.1); Carbon Dioxide 28.2 mmol/L (21.0-32.0); Chloride 104 mmol/L (98-107); Estimated GFR (African America >60 (>=60); Estimated GFR (Non-African Ame >60 (>=60); Glucose 105 mg/dL (74-106); Potassium 4.2 mmol/L (3.5-5.1); Sodium 141 mmol/L (136-145)
[2023-08-11 13:20] LABS: BUN Creatinine Ratio 26.3
[2023-08-11] MEDS: PIPERACILLIN SODIUM/TAZOBACTAM 4.5 GM in 0.9 % SODIUM CHLORIDE 50 ML IV (13:35)
[2023-08-11] MEDS: VANCOMYCIN HCL 2,000 MG in 0.9 % SODIUM CHLORIDE 500 ML 250 MG IV (14:07)
[2023-08-11] MEDS: DIPHENHYDRAMINE HCL 50 MG/ML (1ML) VIAL 25 MG IV (16:55)
[2023-08-11] MEDS: DEXAMETHASONE SODIUM PHOSPHATE 4 MG/ML VIAL IV (16:55)
[2023-08-11] MEDS: LACTATED RINGER'S SOLUTION 1,000 ML 50 ML IV (17:07)
[2023-08-11] MEDS: HYOSCYAMINE SULFATE 0.125 MG TAB.SUBL SL (17:07)
[2023-08-11] MEDS: LEVETIRACETAM 500 MG TABLET 1500 MG PO (17:54)
[2023-08-11] MEDS: IRON POLYSACCHARIDE COMPLEX 150 MG CAPSULE PO (17:54)
[2023-08-11] MEDS: POTASSIUM CHLORIDE 10 MEQ ER TABLET PO (17:54)
[2023-08-11] MEDS: LOSARTAN POTASSIUM 50 MG TABLET PO (17:54)
--- NOTE | 2023-08-11 18:14 | P.HP_ITS ---
H&P: HPI History of Present Illness Chief complaint: LOWER EXTREMITY INJURY RIGHT LEG/CELLULITIS OF LEG Narrative: Seen over thelast 2 week with infectin right lower leg -= was better on doxy, and then worse - seen by wound, recommended admission for IV antibiotics and possible surgical procedure Review of Systems ROS Status of ROS 10 or more systems reviewed and unremarkable except as noted in history and below [facility] Medical History (Updated 08/11/23 @ 15:24 by Jeanna Godinez) Surgical History (Updated 08/11/23 @ 15:24 by Jeanna Godinez) Meds Home Medications and Allergies Home Medications Medication Instructions Recorded Confirmed Type atorvastatin 20 mg tablet 20 mg PO QPM 08/11/23 08/11/23 History colestipol 1 gram tablet 1 g PO DAILY 08/11/23 08/11/23 History furosemide 40 mg tablet 40 mg PO DAILY 08/11/23 08/11/23 History levetiracetam 500 mg tablet 750 mg PO BID 08/11/23 08/11/23 History losartan 50 mg tablet 50 mg PO DAILY 08/11/23 08/11/23 History polysaccharide iron complex 150 mg 150 mg PO .every other day 08/11/23 08/11/23 History iron capsule (iFerex 150) potassium chloride 10 mEq 10 meq PO DAILY 08/11/23 08/11/23 History capsule,extended release warfarin 5 mg tablet 2.5 mg PO DAILY 08/11/23 08/11/23 History Allergies Allergy/AdvReac Type Severity Reaction Status Date / Time Penicillins Allergy Severe Verified 06/30/23 16:08 adhesive tape Allergy Intermediate Verified 06/30/23 16:08 celecoxib [From Celebrex] Allergy Intermediate Verified 06/30/23 16:08 Exam Constitutional Vital Signs, click to edit/add: Last Vital Signs Temp 99 F 08/11/23 17:07 Pulse 76 08/11/23 17:07 Resp 16 08/11/23 17:07 BP 149/73 H 08/11/23 17:07 Pulse Ox 96 08/11/23 17:49 O2 Del Method Room Air 08/11/23 17:49 Documenting provider has reviewed patient's vital signs: yes Common normals: no apparent distress Chest Common normals: inspection of chest normal and palpation of chest normal Cardio Common normals: regular rate and no murmurs GI Common normals: Normal to inspection, nondistended, normoactive bowel sounds present, soft to palpation, non-tender and no masses Extremity Common normals: abnormal to inspection (open wound R lower ext - see wound consult notes for details) Results Labs Labs: Short CBC 08/11/23 Range/Units 12:15 WBC 5.5 (4.0-11.0) 10^3/uL Hgb 13.5 (12.0-16.0) g/dL Hct 41.2 (36.0-48.0) % Plt Count 197 (150-450) 10^3/uL BMP 08/11/23 12:15 Sodium 141 Potassium 4.2 Chloride 104 Carbon Dioxide 28.2 BUN 21.0 H Creatinine 0.80 Glucose 105 Calcium 9.5 Assessment and Plan Assessment and Plan (1) Cellulitis of leg: (2) Laceration of right lower leg: (3) Apnea, sleep: Plan Open wound Right lower leg - IV ab, culture taken, - serial labs Hx DVT and Pulm embolism - follow inr - sl low but with antibiotics it may creep up - monitor daily Hypercholesrterolemia - diet and meds Seizure D/O - maintain meds Hypertension - on meds - follow -= with possible spread of infection - watch for hypotension Sleep apnea - hjas home machine - ok to use
[2023-08-11 18:29] LABS: INR 1.74; Prothrombin Time 17.9 sec (9.0-11.6)
[2023-08-11] MEDS: TRAMADOL HCL 50 MG TABLET PO (18:49)
[2023-08-11] MEDS: WARFARIN SODIUM 2.5 MG TABLET PO (20:24)
[2023-08-11] MEDS: ATORVASTATIN CALCIUM 20 MG TABLET PO (20:24)
[2023-08-11] MEDS: L. ACIDOPHILUS/L.BULGARICUS 1 PACKET GRAN.PACK PO (20:24)
[2023-08-11] MEDS: PIPERACILLIN SODIUM/TAZOBACTAM 3.375 GM in 0.9 % SODIUM CHLORIDE 50 ML IV (21:48)
[2023-08-12] MEDS: TRAMADOL HCL 50 MG TABLET PO ×2 (01:59→10:42)
[2023-08-12] MEDS: PIPERACILLIN SODIUM/TAZOBACTAM 3.375 GM in 0.9 % SODIUM CHLORIDE 50 ML IV ×3 (04:05→22:21)
[2023-08-12 04:43] VITALS: O2SAT 94
[2023-08-12 05:27] LABS: Basophils Percent Auto 0.5 % (0.2-2.0); Hematocrit 39.6 % (36.0-48.0); Hemoglobin 12.8 g/dL (12.0-16.0); Immature Granulocytes Abs Auto 0.01 10^3/uL (0.00-0.03); Immature Granulocytes Pct Auto 0.2 % (0.0-0.5); Lymphocytes Absolute Auto 0.4 10^3/uL (1.2-3.8); Lymphocytes Percent Auto 9.1 % (20.5-60.0); Mean Corpuscular HGB Conc 32.3 g/dL (29.9-35.2); Mean Corpuscular Hemoglobin 30.3 pg (26.7-34.0); Mean Corpuscular Volume 93.8 fL (81.0-99.0); Mean Platelet Volume 10.6 fL (9.5-13.5); Monocytes Absolute Auto 0.2 10^3/uL (0.3-0.8); Neutrophils Absolute Auto 3.7 10^3/uL (1.4-6.5); Neutrophils Percent Auto 86.2 % (43.0-75.0); Platelet Count 198 10^3/uL (150-450); Red Blood Count 4.22 10^6/uL (4.20-5.40); Red Cell Distribution Width 13.2 % (11.0-15.0); White Blood Count 4.3 10^3/uL (4.0-11.0)
[2023-08-12 05:29] VITALS: BP 128/67; PULSE 67; RESP 20; TEMP 36.4; O2SAT 95
[2023-08-12 05:37] LABS: Erythrocyte Sedimentation Rate 34 mm/hr (<=30)
[2023-08-12 05:43] LABS: Anion Gap 13.2; BUN Creatinine Ratio 22.2; Calcium 9.2 mg/dL (8.5-10.1); Chloride 104 mmol/L (98-107); Estimated GFR (African America >60 (>=60); Estimated GFR (Non-African Ame >60 (>=60); Glucose 151 mg/dL (74-106); Potassium 4.2 mmol/L (3.5-5.1); Sodium 140 mmol/L (136-145)
[2023-08-12 05:53] LABS: C Reactive Protein <0.2 mg/dL (<=1.0)
[2023-08-12 07:48] LABS: INR 1.76; Prothrombin Time 18.1 sec (9.0-11.6)
[2023-08-12] MEDS: L. ACIDOPHILUS/L.BULGARICUS 1 PACKET GRAN.PACK PO ×2 (08:38→21:18)
[2023-08-12] MEDS: LOSARTAN POTASSIUM 50 MG TABLET PO (08:39)
[2023-08-12] MEDS: LEVETIRACETAM 250 MG TABLET 750 MG PO ×2 (08:39→21:18)
[2023-08-12] MEDS: HYOSCYAMINE SULFATE 0.125 MG TAB.SUBL SL ×2 (08:39→10:40)
[2023-08-12] MEDS: POTASSIUM CHLORIDE 10 MEQ ER TABLET PO (08:39)
--- NOTE | 2023-08-12 09:13 | P.PN_ITS ---
Progress Note: Subjective Subjective Interval history: No complaints this morning, pain fairly well controlled with tramadol Exam Constitutional Vital Signs, click to edit/add: Last Vital Signs Temp 97.6 F 08/12/23 05:29 Pulse 67 08/12/23 05:29 Resp 20 08/12/23 05:29 BP 128/67 08/12/23 05:29 Pulse Ox 95 08/12/23 05:29 O2 Del Method Room Air 08/12/23 05:29 Documenting provider has reviewed patient's vital signs: yes Common normals: no apparent distress Chest Common normals: inspection of chest normal and palpation of chest normal Cardio Common normals: regular rate and no murmurs GI Common normals: Normal to inspection, nondistended, normoactive bowel sounds present, soft to palpation, non-tender and no masses Extremity Common normals: abnormal to inspection (open wound R lower ext - see wound consult notes for details) Progress Note: Objective Labs Labs: Short CBC 08/11/23 08/12/23 Range/Units 12:15 05:01 WBC 5.5 4.3 (4.0-11.0) 10^3/uL Hgb 13.5 12.8 (12.0-16.0) g/dL Hct 41.2 39.6 (36.0-48.0) % Plt Count 197 198 (150-450) 10^3/uL BMP 08/11/23 08/12/23 12:15 05:01 Sodium 141 140 Potassium 4.2 4.2 Chloride 104 104 Carbon Dioxide 28.2 27.0 BUN 21.0 H 18.0 Creatinine 0.80 0.81 Glucose 105 151 H Calcium 9.5 9.2 Progress Note: A&P Assessment and Plan (1) Cellulitis of leg: (2) Laceration of right lower leg: (3) Apnea, sleep: Plan Open wound Right lower leg - IV ab, culture taken, patient was seen and wound management the previous day, will reevaluate again today. Previous surgical interventions or debridements Hx DVT and Pulm embolism - follow inr - sl low but with antibiotics it may creep up - monitor daily Hypercholesterolemia - diet and meds Seizure D/O - maintain meds Hypertension - on meds - follow -= with possible spread of infection - watch for hypotension Sleep apnea - has home machine - ok to use
--- NOTE | 2023-08-12 09:26 | CM.NOTE ---
Rounds made with Dr. Alcantara, awaiting podiatry input for plan of care. No discharge today. PT will also evaluate pt today.
--- NOTE | 2023-08-12 09:39 | SWNOTE1 ---
SW received fax and pt is current with [facility].
--- NOTE | 2023-08-12 10:19 | SWNOTE1 ---
SW met with pt to discuss dc needs. Pt lives at home by herself. She has family in the area she can call if needed. Pt uses a walker at home and it is [address] Pt has [facility] coming in daily to do dressing changes on wounds. Pt denies having any needs at this time and her plan is to return home. SW to follow as needed.
[2023-08-12] MEDS: LOSARTAN POTASSIUM 50 MG TABLET 100 MG PO (10:40)
--- NOTE | 2023-08-12 11:00 | PT.DAILY ---
Physical Therapy Daily Note PT Daily Note/Assess Start: 08/12/23 10:58 Freq: Status: Active Protocol: Document 08/12/23 10:58 NISHANT (Rec: 08/12/23 10:59 NISHANT [id number]) Visit Not Completed Visit Not Completed Visit Not Completed Due to: Pt refusing Other Reason Visit Not Completed Pt declines PT this morning as she is in a lot of pain (at wound site) and just got comfortable in bed. Reports she has been up with nursing to the restroom and this went well. Will follow up later time/date. Physical Therapy Daily Note/Assessment Time In/Time Out Time In 09:35 Time Out 09:37 Pain In Pain N/A Pain Out Pain N/A GG. Functional Abilities and Goals-Complete for Swing Bed Patients Only [id number]. Self-Care [id number]. Mobility
[2023-08-12] MEDS: SODIUM HYPOCHLORITE HALF STRENGTH (0.25%) 473 ML BOTTLE 30 ML MISC (14:09)
[2023-08-12] MEDS: HYDROMORPHONE HCL 0.5 MG/0.5 ML SYRINGE IV (14:28)
[2023-08-12 14:31] VITALS: BP 145/75; PULSE 97; RESP 16; TEMP 36.8; O2SAT 95
--- NOTE | 2023-08-12 14:33 | CM.NOTE ---
Important Message From Medicare discussed with pt, pt verbalizes understanding and signs paper. Original given to pt and copy placed on pt's chart.
--- NOTE | 2023-08-12 15:58 | SWNOTE1 ---
SW left packet on floor for nursing to send dc orders to [facility] if pt leaves over the weekend.
[2023-08-12 20:00] VITALS: RESP 16
[2023-08-12 20:10] VITALS: O2SAT 98
[2023-08-12 20:32] VITALS: BP 121/63; PULSE 67; RESP 18; TEMP 36.4; O2SAT 95
[2023-08-12] MEDS: ATORVASTATIN CALCIUM 20 MG TABLET PO (21:18)
[2023-08-12] MEDS: WARFARIN SODIUM 2.5 MG TABLET PO (21:18)
[2023-08-12] MEDS: TRAMADOL HCL 50 MG TABLET 100 MG PO (21:18)
[2023-08-13] MEDS: HYDROMORPHONE HCL 0.5 MG/0.5 ML SYRINGE IV (00:11)
[2023-08-13 00:29] VITALS: O2SAT 87
[2023-08-13 05:17] LABS: Basophils Percent Auto 0.6 % (0.2-2.0); Eosinophils Absolute Auto 0.1 10^3/uL (0.0-0.7); Eosinophils Percent Auto 1.3 % (0.9-7.0); Hematocrit 38.8 % (36.0-48.0); Hemoglobin 12.2 g/dL (12.0-16.0); Immature Granulocytes Abs Auto 0.03 10^3/uL (0.00-0.03); Immature Granulocytes Pct Auto 0.4 % (0.0-0.5); Lymphocytes Percent Auto 14.6 % (20.5-60.0); Mean Corpuscular HGB Conc 31.4 g/dL (29.9-35.2); Mean Corpuscular Hemoglobin 30.3 pg (26.7-34.0); Mean Corpuscular Volume 96.3 fL (81.0-99.0); Mean Platelet Volume 10.3 fL (9.5-13.5); Monocytes Absolute Auto 0.6 10^3/uL (0.3-0.8); Neutrophils Absolute Auto 5.4 10^3/uL (1.4-6.5); Neutrophils Percent Auto 75.1 % (43.0-75.0); Platelet Count 191 10^3/uL (150-450); Red Blood Count 4.03 10^6/uL (4.20-5.40); Red Cell Distribution Width 13.3 % (11.0-15.0); White Blood Count 7.1 10^3/uL (4.0-11.0)
[2023-08-13 05:43] LABS: Anion Gap 8.4; BUN Creatinine Ratio 24.8; Calcium 8.8 mg/dL (8.5-10.1); Carbon Dioxide 32.1 mmol/L (21.0-32.0); Chloride 103 mmol/L (98-107); Estimated GFR (African America >60 (>=60); Estimated GFR (Non-African Ame 53 (>=60); Glucose 124 mg/dL (74-106); Potassium 4.5 mmol/L (3.5-5.1); Sodium 139 mmol/L (136-145)
[2023-08-13 05:46] LABS: C Reactive Protein <0.2 mg/dL (<=1.0)
[2023-08-13 05:47] LABS: INR 2.16; Prothrombin Time 21.9 sec (9.0-11.6)
[2023-08-13 06:19] LABS: Erythrocyte Sedimentation Rate 15 mm/hr (<=30)
[2023-08-13] MEDS: TRAMADOL HCL 50 MG TABLET 100 MG PO (06:28)
[2023-08-13] MEDS: PIPERACILLIN SODIUM/TAZOBACTAM 3.375 GM in 0.9 % SODIUM CHLORIDE 50 ML IV (06:29)
[2023-08-13 06:45] VITALS: BP 185/77; PULSE 65; RESP 18; TEMP 36.9; O2SAT 99
[2023-08-13 07:14] VITALS: O2SAT 99
[2023-08-13] MEDS: L. ACIDOPHILUS/L.BULGARICUS 1 PACKET GRAN.PACK PO (10:42)
[2023-08-13] MEDS: HYOSCYAMINE SULFATE 0.125 MG TAB.SUBL SL (10:42)
[2023-08-13] MEDS: LOSARTAN POTASSIUM 50 MG TABLET 100 MG PO (10:42)
[2023-08-13] MEDS: LEVETIRACETAM 250 MG TABLET 750 MG PO (10:42)
[2023-08-13] MEDS: SODIUM HYPOCHLORITE HALF STRENGTH (0.25%) 473 ML BOTTLE 30 ML MISC (10:43)
[2023-08-13] MEDS: POTASSIUM CHLORIDE 10 MEQ ER TABLET PO (10:43)
[2023-08-13 10:45] VITALS: O2SAT 92
--- NOTE | 2023-08-13 11:01 | PM.DS1 ---
DS: Providers Provider Date of admission: 08/11/23 15:15 Primary care physician: Robert Lopez DO Consults: 08/11/23 16:12 Consult to Wound Care Routine Consulting Provider: Dandy Awan Reason for consultation: wound Has provider been notified: No Physical Therapy Eval and Treat Routine Reason for consultation: eval Has provider been notified: No DS: Diagnosis Discharge Diagnosis (1) Cellulitis of leg: (2) Laceration of right lower leg: (3) Apnea, sleep: DS: Summary Hospital Course Hospital Course: Patient was admitted with failed outpatient treatment of cellulitis of lower extremity. She is been off and on antibiotics for the last 3 weeks without improvement. Patient was placed on IV antibiotics, cultures obtained, culture ended up growing Proteus, sensitive to Cipro and Levaquin the patient was discharged home in improving condition. Medications see list. Follow-up with PCP after discharge Time Spent with Patient Time attestation: Total time spent providing and/or coordinating discharge services: Exam Constitutional Vital Signs, click to edit/add: Last Vital Signs Temp 98.4 F 08/13/23 06:45 Pulse 65 08/13/23 06:45 Resp 18 08/13/23 06:45 BP 185/77 H 08/13/23 06:45 Pulse Ox 99 08/13/23 07:14 O2 Del Method Room Air 08/13/23 07:14 Documenting provider has reviewed patient's vital signs: yes Common normals: no apparent distress Chest Common normals: inspection of chest normal and palpation of chest normal Cardio Common normals: regular rate and no murmurs GI Common normals: Normal to inspection, nondistended, normoactive bowel sounds present, soft to palpation, non-tender and no masses Extremity Common normals: abnormal to inspection (open wound R lower ext - see wound consult notes for details) DS: Data Data Completed and Pending Labs on day of discharge: Labs from last 24 hours 08/13/23 04:54 WBC 7.1 RBC 4.03 L Hgb 12.2 Hct 38.8 MCV 96.3 MCH 30.3 MCHC 31.4 RDW 13.3 Plt Count 191 MPV 10.3 Neut % (Auto) 75.1 H Lymph % (Auto) 14.6 L [place] % (Auto) 8.0 Eos % (Auto) 1.3 Baso % (Auto) 0.6 Neut # (Auto) 5.4 Lymph # (Auto) 1.0 L [place] # (Auto) 0.6 Eos # (Auto) 0.1 Baso # (Auto) 0.0 Abs Immat Gran (auto) 0.03 Imm/Tot Granulo (auto) 0.4 ESR 15 PT 21.9 H INR 2.16 Sodium 139 Potassium 4.5 Chloride 103 Carbon Dioxide 32.1 H Anion Gap 8.4 BUN 25.0 H Creatinine 1.01 Est GFR ( Amer) >60 Est GFR (Non-Af Amer) 53 L BUN/Creatinine Ratio 24.8 Glucose 124 H Calcium 8.8 C-Reactive Protein <0.2 Preliminary micro results at discharge 08/11/23 12:15 Wound Culture - Preliminary Leg - Wound Proteus mirabilis Pseudomonas aeruginosa Discharge Plan Discharge Disposition: Home, Self-Care Condition: Good Discharge Medications: New levofloxacin 750 mg tablet 750 mg PO DAILY 28 Days Qty: 28 0RF Continued atorvastatin 20 mg tablet 20 mg PO QPM colestipol 1 gram tablet 1 g PO DAILY furosemide 40 mg tablet 40 mg PO DAILY levetiracetam 500 mg tablet 750 mg PO BID losartan 50 mg tablet 50 mg PO DAILY potassium chloride 10 mEq capsule, extended release 10 meq PO DAILY polysaccharide iron complex [iFerex 150] 150 mg iron capsule 150 mg PO .every other day warfarin 5 mg tablet 2.5 mg PO DAILY Patient Instructions: Cellulitis (GEN) Forms: Portal Instructions Follow Up Appointments: Follow up with primary care physician in 1 week. Follow up with outpt wound 1 week. [phone] Discharge Date/Time: 08/13/23 13:52
--- NOTE | 2023-08-13 13:51 | PC.NURSE ---
1345: dressing change completed prior to patient discharging home.
--- NOTE | 2023-08-15 14:19 | CM.DCFOLLOWU ---
Person spoke with: patient How are you feeling? having some pain How is your pain? pain is affecting her sleeping Did you understand your discharge instructions? yes Do you have any questions about your discharge instructions? no Were you given any prescriptions at discharge? yes Were you able to get your prescriptions filled? yes Do you understand how to take your medications as ordered? She was concerned about taking pain pill as it could become addictive Do you have any questions about your follow up appointment and do you plan to keep your follow up appointment? no questions and she has follow up today with PCP and she will talk with him about pain pill Is there anything else that you would like to discuss? no Questions/Comments/Concerns/Other:
== END 2023-08-13 13:52 | disposition home health service (06) | DRG 603 ==
LOC: ER 13:21 → MS 08-12 07:55
PROVIDERS: Admitting Provider Family Medicine; Emergency Provider Emergency Medicine; PCP Internal Medicine; Visit Provider Family Medicine
DX: L03.115 Cellulitis of right lower limb (principal); B96.4 Proteus (mirabilis) (morganii) as the cause of diseases classified elsewhere; B96.5 Pseudomonas (aeruginosa) (mallei) (pseudomallei) as the cause of diseases classified elsewhere; S81.811A Laceration without foreign body, right lower leg, initial encounter; W22.8XXA Striking against or struck by other objects, initial encounter; G40.909 Epilepsy, unspecified, not intractable, without status epilepticus; G47.30 Sleep apnea, unspecified; I10 Essential (primary) hypertension; E78.00 Pure hypercholesterolemia, unspecified; Z88.0 Allergy status to penicillin; Z88.6 Allergy status to analgesic agent; Z91.048 Other nonmedicinal substance allergy status; Z79.01 Long term (current) use of anticoagulants; Z86.711 Personal history of pulmonary embolism; Z86.718 Personal history of other venous thrombosis and embolism; Z79.899 Other long term (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 therapy
CPT/HCPCS: 36415; 73590; 80048; 85025; 85610; 85652; 86140; 87040; 87070; 87150; 87186; 94667; 94668; 94761; 96365; 96366; 96367; 96368; 96375; 96376; 97161; 99285; A6213; G0463; J1170; J3370

== ENCOUNTER 2023-08-19 09:23 | Outpatient (OUT) | payer MEDICARE, OTHER, SELFPAY | END 2023-08-19 09:24 | disposition home or self-care (01) | LOC: WC 09:23 | PROVIDERS: PCP Internal Medicine; Visit Provider Podiatrist Foot & Ankle Surgery | DX: I87.331 Chronic venous hypertension (idiopathic) with ulcer and inflammation of right lower extremity (principal); L97.811 Non-pressure chronic ulcer of other part of right lower leg limited to breakdown of skin | CPT/HCPCS: G0463 ==

== ENCOUNTER 2023-08-29 01:38 | Outpatient (RCR) | payer MEDICARE, OTHER, SELFPAY | END 2023-09-27 17:16 | disposition home or self-care (01) | LOC: MM 01:38 | PROVIDERS: PCP Internal Medicine; Visit Provider Internal Medicine | DX: Z51.81 Encounter for therapeutic drug level monitoring (principal); Z79.01 Long term (current) use of anticoagulants; I82.409 Acute embolism and thrombosis of unspecified deep veins of unspecified lower extremity | CPT/HCPCS: 85610; G0463 ==

== ENCOUNTER 2023-09-05 15:30 | Outpatient (OUT) | payer MEDICARE, OTHER, SELFPAY | END 2023-09-05 15:31 | disposition home or self-care (01) | LOC: WC 15:31 | PROVIDERS: PCP Internal Medicine; Visit Provider Physician Assistant | DX: I87.331 Chronic venous hypertension (idiopathic) with ulcer and inflammation of right lower extremity (principal); L97.811 Non-pressure chronic ulcer of other part of right lower leg limited to breakdown of skin; R60.1 Generalized edema | CPT/HCPCS: G0463 ==

== ENCOUNTER 2023-09-19 15:54 | Outpatient (OUT) | payer MEDICARE, OTHER, SELFPAY | END 2023-09-19 15:55 | disposition home or self-care (01) | LOC: WC 15:54 | PROVIDERS: PCP Internal Medicine; Visit Provider Physician Assistant | DX: I87.331 Chronic venous hypertension (idiopathic) with ulcer and inflammation of right lower extremity (principal); L97.811 Non-pressure chronic ulcer of other part of right lower leg limited to breakdown of skin | CPT/HCPCS: G0463 ==

== ENCOUNTER 2023-09-28 00:13 | Outpatient (RCR) | payer MEDICARE, OTHER, SELFPAY | END 2023-10-27 16:03 | disposition home or self-care (01) | LOC: MM 00:13 | PROVIDERS: PCP Internal Medicine; Visit Provider Internal Medicine | DX: I83.813 Varicose veins of bilateral lower extremities with pain (principal); Z51.81 Encounter for therapeutic drug level monitoring; Z79.01 Long term (current) use of anticoagulants; I82.409 Acute embolism and thrombosis of unspecified deep veins of unspecified lower extremity | CPT/HCPCS: 85610; G0463 ==

== ENCOUNTER 2023-10-10 15:08 | Outpatient (OUT) | payer MEDICARE, OTHER, SELFPAY | END 2023-10-10 15:09 | disposition home or self-care (01) | LOC: WC 15:08 | PROVIDERS: PCP Internal Medicine; Visit Provider Physician Assistant | DX: I87.331 Chronic venous hypertension (idiopathic) with ulcer and inflammation of right lower extremity (principal); L97.811 Non-pressure chronic ulcer of other part of right lower leg limited to breakdown of skin | CPT/HCPCS: G0463 ==

== ENCOUNTER 2023-10-18 11:05 | Outpatient (OUT) | payer MEDICARE, OTHER, SELFPAY ==
[2023-10-18 12:28] LABS: Estimated Average Glucose 137 mg/dL; Glycohemoglobin A1C 6.4 % (4.5-6.2)
== END 2023-10-18 11:06 | disposition home or self-care (01) ==
LOC: LAB 11:06
PROVIDERS: PCP Internal Medicine; Visit Provider Internal Medicine
DX: E11.65 Type 2 diabetes mellitus with hyperglycemia (principal)
CPT/HCPCS: 36415; 83036

== ENCOUNTER 2023-10-26 12:36 | Outpatient (RCR) | payer MEDICARE, OTHER, SELFPAY | END 2023-11-27 08:13 | disposition home or self-care (01) | LOC: OT 12:36 | PROVIDERS: PCP Internal Medicine; Visit Provider Physician Assistant | DX: I89.0 Lymphedema, not elsewhere classified (principal); R60.9 Edema, unspecified | CPT/HCPCS: 97140; 97166; 97530; 97535 ==

== ENCOUNTER 2023-10-28 09:13 | Outpatient (RCR) | payer MEDICARE, OTHER, SELFPAY | END 2023-11-25 14:33 | disposition home or self-care (01) | LOC: MM 09:13 | PROVIDERS: PCP Internal Medicine; Visit Provider Internal Medicine | DX: Z51.81 Encounter for therapeutic drug level monitoring (principal); Z79.01 Long term (current) use of anticoagulants; I82.409 Acute embolism and thrombosis of unspecified deep veins of unspecified lower extremity | CPT/HCPCS: 85610; G0463 ==

== ENCOUNTER 2023-11-28 01:02 | Outpatient (RCR) | payer MEDICARE, OTHER, SELFPAY | END 2023-12-28 16:44 | disposition home or self-care (01) | LOC: MM 01:02 | PROVIDERS: PCP Internal Medicine; Visit Provider Internal Medicine | DX: I83.813 Varicose veins of bilateral lower extremities with pain (principal); Z51.81 Encounter for therapeutic drug level monitoring; Z79.01 Long term (current) use of anticoagulants; I83.209 Varicose veins of unspecified lower extremity with both ulcer of unspecified site and inflammation ==

== ENCOUNTER 2023-11-28 09:38 | Outpatient (RCR) | payer MEDICARE, OTHER, SELFPAY | END 2023-11-29 13:23 | disposition home or self-care (01) | LOC: OT 09:38 | PROVIDERS: PCP Internal Medicine; Visit Provider Physician Assistant | DX: I89.0 Lymphedema, not elsewhere classified (principal); R60.9 Edema, unspecified ==

== ENCOUNTER 2023-12-09 12:26 | Outpatient (OUT) | payer MEDICARE, OTHER, SELFPAY ==
--- OUTSIDE RECORDS SUMMARY | 2023-12-09 12:29 | XMS_ITS | CCD ---
Author Name Unknown Address [address] [place] [address] Organization [facility] Care Team Providers Care Slag Mixer Name Role Phone ROBERT VAIL Primary Care Physician Quita Simmons Unavailable Usama Batista Unavailable Michael Dunaway Unavailable Maico Lloyd Unavailable DO Robert Vail Primary Care Provider DO Maico Lloyd Attending Provider MD Michael Dunaway Attending Provider Kaitlynn Foy Unavailable Ursula Velarde Unavailable Robert Vail Unavailable Ivon Batista Unavailable GENNA, DR CABAN Admitting Unavailable GENNA, DR CABAN Attending Unavailable GENNA, DR CABAN Primary Care Unavailable GENNA, DR CABAN Consulting Unavailable ANTONIO, DR NIDA Lopez Consulting Unavailable GENNA, DR CABAN Admitting Unavailable GENNA, DR CABNA Attending Unavailable GENNA, DR CABAN Primary Care Unavailable GENNA, DR CABAN Consulting Unavailable GENNA, DR CABAN Admitting Unavailable GENNA, DR CABAN Attending Unavailable GENNA, DR CABAN Primary Care Unavailable GENNA, DR CABAN Consulting Unavailable ANTONIO, DR NIDA Lopez Consulting Unavailable GENNA, DR CABAN Admitting Unavailable GENNA, DR CABAN Attending Unavailable GENNA, DR CABAN Primary Care Unavailable GENNA, DR CABAN Consulting Unavailable FEICELINA DE LA O Consulting Unavailable GENNA, DR CABAN Admitting Unavailable GENNA, DR CABAN Attending Unavailable GENNA, DR CABAN Primary Care Unavailable GENNA, DR CABAN Admitting Unavailable GENNA, DR CABAN Attending Unavailable GENNA, DR CABAN Primary Care Unavailable GENNA, DR CABAN Consulting Unavailable MAYTE MARLOW Attending Unavailable Allergies Allergy Classification Reported Allergen(s) Allergy Type Date of Onset Reaction(s) Facility (1 source) Adhesive Tape Drug allergy rash [facility] [place] (20 sources) celecoxib; 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: [celecoxib] Drug Allergy 05-05-20 rash, Hives, Unknown [facility] (1 source) Penicillins; 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: [penicillins] Drug allergy groggy [facility] Comment on above: Pt. states PCN does n't work for me, it just doesn't work (20 sources) Penicillin G Drug Allergy rash [employer] [facility] [employer] Other (3 sources) Penicillins; 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: [Penicillins] Allergy to substance 12-04-19 14 [facility] [place] (2 sources) celecoxib Drug Allergy 12-04-19 14 [facility] (1 source) Citalopram Drug Allergy [facility] (1 source) Desonide Drug Allergy [facility] (15 sources) Citalopram Drug Allergy Unknown [employer] Other (15 sources) Penicillin Drug Allergy 08-17-20 13 Unknown [employer] [facility] [facility] Other (1 source) Substance with penicillin structure and antibacterial mechanism of action (substance) Drug allergy Unknown [employer] [facility] Other (1 source) patient allergy list reviewed by nurse or physicia Propensity to adverse reactions 09-19-20 14 Comment:Done [employer] Other Medications Current Medications Medication Drug Class(es) Dates Sig (Normalized) Sig (Original) acetaminophen 325 mg / HYDROcodone bitartrate 5 mg oral tablet (7 sources) Opioid Agonist Start: 09-08-2023 take 1 tablet by mouth twice daily as needed HYDROcodone-Acetam inophen 5-325 MG 1 tablet as needed Orally twice daily for 14 days Aug, Active AeroChamber Mini Chamber - (20 sources) Start: 03-14-2023 AeroChamber Mini Chamber - Use with MDI inhaled Use q 4 hours as needed for cough for 30 days Feb, Active [id number] actuat albuterol 0.09 mg/actuat metered dose inhaler (20 sources) beta2-Adrenergic Agonist Start: 03-14-2023 take 2 puff(s) by inhalation every four hours as needed for cough Albuterol Sulfate HFA 108 (90 Base) MCG/ACT 2 puffs Inhalation every 4 hrs as needed for cough and SOB Feb, Active Start: 03-14-2023 take 2 puff(s) by in halation every four hours as needed for cough Albuterol Sulfate HFA 108 (90 Base) MCG/ACT 2 puffs Inhalation every 4 hrs as needed for cough and SOB Feb, Active Start: 03-14-2023 take 2 puff(s) by in halation every four hours as needed for cough Albuterol Sulfate HFA 108 (90 Base) MCG/ACT 2 puffs Inhalation every 4 hrs as needed for cough and SOB Feb, Active Carole Allergy 180 MG (20 sources) Start: 03-10-2023 take 1 tablet by mouth once daily Carole Allergy 180 MG 1 tablet Swallow whole with water; do not take with fruit juices. Orally Once a day for 30 days Feb, Active apixaban 5 mg oral tablet (20 sources) Factor Xa Inhibitor Start: 05-05-2022 take 1 tablet by mouth once daily Apixaban (Eliquis) 5 mg tablet Active 5 MG PO Daily May 05, 2022 12:00am Eliquis 5 MG KAYLAN E 1 TABLET TWICE DAILY Active Eliquis Active atorvastatin 20 mg oral tablet (20 sources) HMG-CoA Reductase Inhibitor Start: 03-27-2015 take 20 mg by mouth once daily Atorvastatin Active 20 MG PO Daily May 05, 2022 12:00am benzonatate 100 mg oral capsule (20 sources) Non-narcotic Antitussive Start: 11-10-2023 take 1 capsule by mouth every eight hours Benzonatate 100 MG 1 capsule as needed Orally Three times a day for 10 days Oct, Active Start: 03-10-20[address] [facility] every eight hours Benzonatate 200 MG 1 capsule Orally Three times a day for 10 Feb, Active Start: 09-11-2022 take [address] [facility] every eight hours Tesbijalon Perles 100 MG 1 capsule as needed Orally Three times a day for 7 days Aug, Active colestipol hydrochloride 1000 mg oral tablet (14 sources) Bile Acid Sequestrant Start: 07-11-2023 take 2 tablets by mouth every twenty-four hours Colestipol HCl 1 GM 2 tablets Orally Once a day for 30 days Jun, Active take [address] [facility] every twenty-four hours Colestipol HCl 1 GM 2 tablets Orally Onc e a day for 90 days Active fexofenadine hydrochloride 180 mg oral tablet (3 sources) Histamine-1 Receptor Antagonist Start: 03-10-2023 take 1 tablet by mouth once daily Carole Allergy 180 MG 1 tablet Swallow whole with water; do not take with fruit juices. Orally Once a day for 30 days Feb, Active furosemide 20 mg oral tablet (20 sources) Loop Diuretic Start: 03-03-2022 take 1 tablet by mouth twice daily Lasix 20 mg Tab 20 mg = 1 tab(s), Oral, BID, Refills(s) 0 Start Date: 03/03/22 Status: Ordered take 1 tablet by [facility] every twenty-four hours Furosemide 40 MG 1 tablet Orally Once a day Active levETIRAcetam 500 mg oral tablet (20 sources) Start: 05-05-2022 take 500 mg by mouth once daily Levetiracetam Active 500 MG PO Daily May 05, 2022 12:00am Start: 11-20-2014 take [address] [facility] twice daily at bedtime Keppra 500 mg Tab 500 mg = 1 tab(s), Oral, BID, 1 caps in AM 1 cap at bedtime, Refills(s) 0, Seizure Start Date: 11/20/14 Status: Ordered take 1 tablet by [facility] every eight hours Keppra 500 MG 1 tablet Orally tid Not-Taking levoFLOXacin 750 mg oral tablet (10 sources) Quinolone Antimicrobial take 1 tablet by mouth every twenty-four hours levoFLOXacin 750 MG 1 tablet Orally Once a day Active losartan potassium 50 mg oral tablet (20 sources) Angiotensin 2 Receptor Kareem Start: 022 take 50 mg by mouth once daily Losartan Active 50 MG PO Daily May 05, 2022 12:00am [facility] Losartan Potassium 25 MG 1 tablet Orally Once a day Active methylPREDNISolone 4 mg oral tablet (1 source) Corticosteroid Start: 11-07-2021 Medrol 4 MG as directed Orally as directed for 6 days Oct, Active polysaccharide iron complex 150 mg oral capsule (20 sources) Start: 06-22-2022 Polysaccharide Iron Complex (Ferrex 150) 150 mg iron capsule Active 150 MG PO Daily June 22, 2022 12:00am Start: 03-03-2022 take [address] [facility] once daily Ferrex-150 oral capsule 150 mg = 1 cap(s), Oral, Daily, Refills(s) 0 Start Date: 03/03/22 Status: Ordered take [address] [facility] every other day IFerex 150 150 MG 1 capsule Orally qod for 30 days Active take [address] [facility] once daily IFerex 150 150 MG take 1 capsule by mouth once daily for 30 Not-Taking take [address] [facility] once daily IFerex 150 150 MG 1 capsule Orally Once a day Active potassium chloride 10 meq extended release oral capsule (20 sources) Start: 05-05-2022 take 10 mEq by mouth once daily Potassium Chloride Active 10 MEQ PO Daily May 05, 2022 12:00am Start: 03-27-2015 take 1 tablet by mouth once da farrukh potassium chloride 10 mEq ER Tab 10 mEq = 1 tab(s), Oral, Daily, Refills(s) 0, Other (see comment) Start Date: 03/27/15 Status: Ordered take 1 dose by mouth once daily at mealtime Potassium Chloride 20 MEQ 1 packet with food Orally Once a day Not-Taking/PRN tiZANidine 4 mg oral tablet (4 sources) Central alpha-2 Adrenergic Agonist Start: 07-29-2022 tiZANidine HCl 4 MG 1/2-1 tablet as needed Orally at bedtime for 30 days Jul, Active traMADol hydrochloride 50 mg oral tablet (10 sources) Opioid Agonist Start: 08-29-2023 take 1 tablet by mouth once daily at bedtime as needed traMADol HCl 50 MG 1 tablet as needed Orally Once a day at bedtime for 14 days Aug, Active Start: 08-15-2023 take 1 tablet by [facility] once daily at bedtime as needed traMADol HCl 50 MG 1 tablet as needed Orally Once a day at bedtime for 14 days Jul, Active warfarin sodium 5 mg oral tablet (20 sources) Vitamin K Antagonist Start: 04-21-2023 take 1 tablet by mouth every twenty-four hours Warfarin Sodium 5 MG 1 tablet Orally Once a day March, Active Start: 08-15-2017 Coumadin 5 mg Tab See Instructions, as directed, Refills(s) 0, Blood Thinner Start Date: 08/15/17 Status: Ordered take 1 tablet by danika th two times weekly Coumadin 5 5 MG 1 tablet Orally Two times a Week Active Completed/Discontinued Medications Medication Drug Class(es) Dates Sig (Normalized) Sig (Original) alendronic acid 70 mg oral tablet (20 sources) Bisphosphonate Start: 05-05-2022 End: 06-23-2022 take 70 mg by mouth every week Alendronate Discontinued 70 MG PO every week May 05, 2022 12:00am June 23, 2022 10:21am Start: 03-03-2022 take 1 tablet by danika every week Fosamax 70 mg oral tablet 70 mg = 1 tab(s), Oral, qWeek, Refills(s) 0 Start Date: 03/03/22 Status: Ordered Alendronate Sodi um 5 MG 1 tablet 30 minutes before the first food, beverage or medicine of the day with plain water Orally Once a day Active azithromycin 250 mg oral tablet (20 sources) Macrolide Antimicrobial Start: 03-10-2023 Azithromycin 250 MG as directed Orally daily for 5 days Feb, Not-Taking/PRN Start: 12-27-2022 Azithromycin 5 00 MG 1 tablet Orally for 5 days Nov, Not-Taking/PRN cephalexin 500 mg oral capsule (16 sources) Cephalosporin Antibacterial Start: 07-11-2023 take 1 capsule by mouth twice daily as needed Cephalexin 500 MG 1 capsule Orally twice daily for 14 days Jun, Not-Taking/PRN Start: 09-27-2016 take 1 capsule by mo [facility] every twelve hours Cephalexin 500 MG 1 tablet Orally Twice a day for 7 days Aug, Not-Taking codeine phosphate 2 mg/ml / guaiFENesin 20 mg/ml oral solution (20 sources) Opioid Agonist Start: 03-14-2023 take 10 mL by mouth every six hours as needed for cough guaiFENesin-Codeine 100-10 MG/5ML 10 mL as needed Orally every 6 hours as needed for cough Feb, Not-Taking/PRN doxycycline hyclate 100 mg oral capsule (19 sources) Tetracycline- class Drug Start: 04-08-2023 take 1 capsule by mouth twice daily as needed Doxycycline Hyclate 100 MG 1 capsule Orally twice daily for 7 days March, Not-Taking/PRN Start: 05-05-2022 End: 06-23-2022 take 100 mg by mouth once daily Doxycycline Hyclate Discontinued 100 MG PO Daily May 05, 2022 12:00am June 23, 2022 10:21am ferrous sulfate 325 mg oral tablet (2 sources) Start: 06-23-2022 End: 06-23-2022 take 325 mg by mouth once daily Ferrous Sulfate Discontinued 325 MG PO Daily June 23, 2022 12:00am June 23, 2022 10:22am [facility] Iron 325 (65 Fe) MG 1 tablet Orally Once a day Not-Taking Iron (1 source) take 1 tablet by mouth once daily Iron 325 (65 Fe) MG 1 tablet Orally Once a day Not-Taking phenytoin sodium 100 mg extended release oral capsule (20 sources) Anti-epileptic Agent Start: 05-05-2022 End: 06-23-2022 take 100 mg by mouth three times daily Phenytoin Sodium Extended Discontinued 100 MG PO Three times daily May 05, 2022 12:00am June 23, 2022 10:21am Start: 04-10-2015 take 1 capsule by mo [facility] twice daily Dilantin 100 mg Cap-ER 100 mg = 1 cap(s), Oral, BID, Refills(s) 0, Seizure Start Date: 04/10/15 Status: Ordered take 1 capsule by mo [facility] every twelve hours Dilantin 100 MG 1 capsule Orally every 12 hrs Not-Taking take 1.5 tablets by mouth every six hours Phenytoin 50 MG 1.5 tablets Orally Four times a day Active Problems Active Problems Problem Classification Problem Date Documented Date Episodic/Chronic Abdominal hernia (1 source) Diaphragmatic hernia; 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: [Diaphragmatic hernia without mention of obstruction or gangrene] Episodic Acute bronchitis (7 sources) Acute bronchitis due to other specified organisms; 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: [Acute bronchitis] Onset: Episodic Administrative/social admission (2 sources) Persons encountering health services in other specified circumstances Episodic Biliary tract disease (2 sources) Biliary calculus; 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] 11-20-2014 Episodic Chronic obstructive pulmonary disease and bronchiectasis (20 sources) Simple chronic bronchitis; 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: [Simple chronic bronchitis] Chronic Chronic ulcer of skin (6 sources) Non-pressure chronic ulcer of right calf limited to breakdown of skin; 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: [Non-pressure chronic ulcer of right calf limited to breakdown of skin] Chronic Coagulation and hemorrhagic disorders (20 sources) Hypercoagulability state; 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: [Other primary thrombophilia] Onset: 7 03-03-2022 Chronic Complications of surgical procedures or medical care (1 source) Infection following a procedure, other surgical site, initial encounter; 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: [Infection following a procedure, other surgical site, initial encounter] Episodic Congestive heart failure; nonhypertensive (1 source) Chronic combined systolic and diastolic heart failure; 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: [Chronic combined systolic (congestive) and diastolic (congestive) heart failure] Chronic Deficiency and other anemia (4 sources) Iron deficiency anemia secondary to blood loss (chronic); 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: [IRON DEFIC ANEMIA SEC BLD LOSS CHRN] Onset: 2 Chronic Deficiency and other anemia (1 source) Anemia due to chronic blood loss; 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: [Iron deficiency anemia secondary to blood loss (chronic)] Chronic Deficiency and other anemia (20 sources) Iron deficiency anemia; 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: [Iron deficiency anemia, unspecified] Onset: 2 Episodic Diabetes mellitus with complications (20 sources) Type 2 diabetes mellitus; 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: [Type 2 diabetes mellitus with hyperglycemia] Onset: 3 Chronic Diabetes mellitus without complication (1 source) Diabetes mellitus 03-03-2022 Chronic Disorders of lipid metabolism (20 sources) Hyperlipidemia; 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: [Pure hypercholesterolemia] Onset: 0 03-03-2022 Chronic Diverticulosis and diverticulitis (2 sources) Diverticular disease; 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: [Diverticulitis of colon] Onset: 8 11-20-2014 Chronic Epilepsy; convulsions (20 sources) Seizure disorder; 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: [Generalized idiopathic epilepsy and epileptic syndromes, not intractable, without status epilepticus] Onset: 0 Chronic Epilepsy; convulsions (3 sources) Seizure disorder; 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: [Seizure] 03-03-2022 Episodic Esophageal disorders (20 sources) Gastroesophageal reflux disease; 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: [Gastro-esophageal reflux disease with esophagitis] 03-03-2022 Chronic Esophageal disorders (2 sources) Esophageal disorders; 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: [Gastro-esophageal reflux disease with esophagitis, without bleeding] Essential hypertension (20 sources) Hypertensive disorder; 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: [Essential (primary) hypertension] Onset: 5 03-03-2022 Chronic Genitourinary symptoms and ill-defined conditions (1 source) Dysuria Episodic Immunity disorders (1 source) 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 Immunizations and screening for infectious disease (20 sources) Contact with and (suspected) exposure to other viral communicable diseases; 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: [Vaccination given] Episodic Menopausal disorders (1 source) Primary ovarian failure; 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: [Other primary ovarian failure] Onset: 8 Chronic Mood disorders (2 sources) Depressive disorder; 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] 03-03-2022 Chronic Osteoarthritis (3 sources) Degenerative joint disease of pelvis; 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: [Osteoarthrosis, unspecified whether generalized or localized, pelvic region and thigh] Onset: 7 Chronic Osteoporosis (20 sources) Osteoporosis; 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: [Age-related osteoporosis without current pathological fracture] 03-03-2022 Chronic Other acquired deformities (1 source) Acquired spondylolisthesis 04-07-2015 Episodic Other aftercare (20 sources) Long-term current use of anticoagulant; 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: [MCC (current) use of anticoagulants] Onset: 2 Episodic Other aftercare (4 sources) MCC (current) use of anticoagulants Onset: 2 Resolved: 2 Episodic Other aftercare (1 source) Long-term current use of drug therapy; 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: [Other chcf (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 therapy] Episodic Other and unspecified benign neoplasm (1 source) Adrenal adenoma 03-03-2022 Episodic Other and unspecified benign neoplasm (1 source) Benign neoplasm of adrenal gland; 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: [Benign neoplasm of unspecified adrenal gland] Episodic Other and unspecified benign neoplasm (1 source) Benign neoplasm of right adrenal gland; 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: [Benign neoplasm of right adrenal gland] Episodic Other congenital anomalies (1 source) Congenital spondylolysis of lumbosacral region; 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: [Congenital spondylolysis, lumbosacral region] Onset: 8 Chronic Other connective tissue disease (1 source) Artificial knee joint present; 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: [Presence of left artificial knee joint] Chronic Other connective tissue disease (20 sources) History of lumbar fusion; 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: [Arthrodesis status] Episodic Other connective tissue disease (1 source) Pain in calf; 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: [Pain in unspecified lower leg] 03-24-2022 Episodic Other connective tissue disease (1 source) Neuralgia; 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: [Unspecified neuralgia, neuritis, and radiculitis] Episodic Other connective tissue disease (1 source) Spasm; 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: [Other muscle spasm] Episodic Other connective tissue disease (2 sources) Pain in right leg Episodic Other diseases of bladder and urethra (2 sources) 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 Other diseases of bladder and urethra (2 sources) Intestinovesical fistula; 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] Chronic Other diseases of veins and lymphatics (1 source) Chronic venous hypertension (idiopathic) without complications of unspecified lower extremity; 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: [Chronic venous hypertension (idiopathic) without complications of unspecified lower extremity] Chronic Other diseases of veins and lymphatics (5 sources) Chronic peripheral venous hypertension; 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: [Chronic venous hypertension (idiopathic) without complications of right lower extremity] Chronic Other diseases of veins and lymphatics (1 source) Chronic venous hypertension (idiopathic) without complications of right lower extremity Chronic Other diseases of veins and lymphatics (20 sources) Peripheral venous insufficiency; 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: [Venous insufficiency (chronic) (peripheral)] Onset: 4 03-03-2022 Episodic Other diseases of veins and lymphatics (3 sources) Venous insufficiency (chronic) (peripheral) Episodic Other diseases of veins and lymphatics (3 sources) Stasis dermatitis; 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: [Venous insufficiency (chronic) (peripheral)] Episodic Other ear and sense organ disorders (1 source) Sensorineural hearing loss 11-20-2014 Chronic Other female genital disorders (1 source) Abnormal uterine bleeding; 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: [Abnormal uterine and vaginal bleeding, unspecified] Onset: 2 Chronic Other gastrointestinal disorders (1 source) Intra-abdominal and pelvic swelling, mass and lump; 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: [Intra-abdominal and pelvic swelling, mass and lump, unspecified site] Episodic Other injuries and conditions due to external causes (2 sources) History of fall; 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: [Personal history of fall] Onset: 6 Episodic Other nervous system disorders (20 sources) Chronic pain; 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: [Other chronic pain] Chronic Other nervous system disorders (12 sources) Other chronic pain Onset: 2 Resolved: 2 Chronic Other nervous system disorders (1 source) Carpal tunnel syndrome; 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: [Carpal tunnel syndrome, unspecified upper limb] Chronic Other nervous system disorders (1 source) Paresthesia; 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: [Paresthesia of skin] Episodic Other non-traumatic joint disorders (1 source) Lower limb joint arthritis; 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: [Osteoarthrosis, unspecified whether generalized or localized, lower leg] Onset: 7 Chronic Other nutritional; endocrine; and metabolic disorders (4 sources) Body mass index 40+ - severely obese; 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: [Body mass index (BMI) 50.0-59.9, adult] Onset: 0 Chronic Other nutritional; endocrine; and metabolic disorders (2 sources) Morbid obesity; 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: [Morbid (severe) obesity due to excess calories] 11-20-2014 Chronic Other nutritional; endocrine; and metabolic disorders (2 sources) Obesity; 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: [Obesity, unspecified] 11-20-2014 Chronic Other upper respiratory disease (20 sources) Allergic rhinitis due to pollen; 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: [Allergic rhinitis due to pollen] Chronic Other upper respiratory disease (1 source) Allergic rhinitis due to pollen Chronic Other upper respiratory disease (1 source) Seasonal allergic rhinitis; 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: [Other seasonal allergic rhinitis] Onset: 6 Chronic Carmina-; endo-; and myocarditis; cardiomyopathy (except that caused by tuberculosis or sexually transmitted disease) (1 source) Dilated cardiomyopathy; 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: [Dilated cardiomyopathy] Chronic Peripheral and visceral atherosclerosis (1 source) Peripheral vascular disease; 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: [Other peripheral vascular disease] Onset: 5 Chronic Phlebitis; thrombophlebitis and thromboembolism (4 sources) H/O: Deep vein thrombosis; 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: [Embolism from thrombosis of vein of distal lower extremity] Onset: 7 03-03-2022 Episodic Pulmonary heart disease (3 sources) Pulmonary hypertension; 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: [Chronic pulmonary heart disease] Onset: 5 04-08-2015 Chronic Pulmonary heart disease (4 sources) H/O: pulmonary embolus; 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: [Pulmonary thromboembolism] 03-03-2022 Episodic Residual codes; unclassified (20 sources) Obstructive sleep apnea syndrome; 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: [Obstructive sleep apnea (adult) (pediatric)] 04-07-2015 Chronic Residual codes; unclassified (2 sources) Obstructive sleep apnea (adult) (pediatric) Chronic Residual codes; unclassified (1 source) Family history of leukemia; 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: [FAMILY HISTORY OF LEUKEMIA] Onset: 3 Episodic Residual codes; unclassified (1 source) Family history of malignant neoplasm of other organs or systems; 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: [FAM HX MALIG NEOPLASM OTH ORGN/SYS] Onset: 3 Episodic Residual codes; unclassified (1 source) Postmenopausal state; 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: [Asymptomatic menopausal state] Episodic Skin and subcutaneous tissue infections (8 sources) Erysipelas; 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: [Cellulitis of right lower limb] Onset: 7 Resolved: 2 Episodic Spondylosis; intervertebral disc disorders; other back problems (20 sources) Solitary sacroiliitis; 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: [Sacroiliitis, not elsewhere classified] Onset: 2 Resolved: 2 Chronic Spondylosis; intervertebral disc disorders; other back problems (20 sources) Spinal stenosis of lumbar region; 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: [Spinal stenosis, lumbar region without neurogenic claudication] Onset: 7 Resolved: 2 04-07-2015 Episodic Sprains and strains (2 sources) Sprain of ligament of tarsometatarsal joint; 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: [Sprain of tarsometatarsal ligament of left foot, initial encounter] Onset: 8 Episodic Superficial injury; contusion (5 sources) Contusion of lower leg; 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: [Contusion of left lower leg, initial encounter] Onset: 6 Episodic Thyroid disorders (20 sources) Thyroid nodule; 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: [Nontoxic single thyroid nodule] Onset: 5 Chronic Unclassified (1 source) Long-term current use of drug therapy; 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: [Long-term (current) use of other medications] Onset: 8 Unclassified (1 source) 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); 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: [Post COVID-19 condition, unspecified] Unclassified (1 source) Non-healing surgical wound; 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: [Non-healing surgical wound] Onset: 5 Unclassified (1 source) Acute candidiasis of vulva and vagina; 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: [Acute candidiasis of vulva and vagina] Varicose veins of lower extremity (20 sources) Varicose veins of lower extremity; 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: [Varicose veins of bilateral lower extremities with other complications] Episodic Viral infection (1 source) Viral infection, unspecified Episodic Viral infection (2 sources) COVID-19; 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: [Disease caused by 2019-nCoV] Past or Other Problems Problem Classification Problem Date Documented Da te Episodic/Chronic Abdominal pain (1 source) Right lower quadrant pain; 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: [Right lower quadrant pain] Onset: 08-22-2017 Episodic Bacterial infection; unspecified site (1 source) Bacterial infectious disease; 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: [Bacterial infection, unspecified, in conditions classified elsewhere and of unspecified site] Onset: 08-17-2017 Episodic Coagulation and hemorrhagic disorders (1 source) Bleeding; 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: [Hemorrhagic condition, unspecified] Onset: 03-20-2014 Episodic Deficiency and other anemia (1 source) Anemia; 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: [Anemia, unspecified] Resolved: 02-15-2022 Episodic Diabetes mellitus without complication (1 source) Impaired fasting glycemia; 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: [Impaired fasting glucose] Resolved: 01-05-2021 Episodic Fluid and electrolyte disorders (1 source) Hypokalemia; 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: [Hypokalemia] Onset: 07-17-2018 Episodic Intestinal infection (1 source) Infectious colitis, enteritis and gastroenteritis; 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: [Infectious gastroenteritis and colitis, unspecified] Resolved: 11-24-2022 Episodic Joint disorders and dislocations; trauma-related (1 source) Current tear of medial cartilage AND/OR meniscus of knee; 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: [Other tear of medial meniscus, current injury, left knee, initial encounter] Onset: 05-18-2017 Episodic Malaise and fatigue (1 source) Malaise and fatigue; 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: [Other malaise and fatigue] Onset: 11-18-2014 Episodic Nonspecific chest pain (1 source) Chest pain; 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: [Chest pain, unspecified] Onset: 02-14-2014 Episodic Other connective tissue disease (1 source) Achilles tendinitis, left leg Onset: 11-07-2021 Resolved: 11-07-2021 Episodic Other connective tissue disease (1 source) Arthrodesis status Onset: 01-28-2022 Resolved: 01-28-2022 Episodic Other connective tissue disease (1 source) Prepatellar bursitis of left knee; 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: [Prepatellar bursitis, left knee] Onset: 10-07-2016 Episodic Other connective tissue disease (1 source) Pain in left lower limb; 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: [Pain in left leg] Onset: 05-06-2017 Episodic Other gastrointestinal disorders (4 sources) Intra-abdominal and pelvic swelling, mass and lump, unspecified site; 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: [INTRA-ABD PELV SWELL MASS LUMP] Onset: 04-30-2022 Episodic Other injuries and conditions due to external causes (1 source) Contusion; 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: [Contusion of unspecified site] Onset: 03-20-2014 Episodic Other lower respiratory disease (3 sources) Dyspnea; 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: [Shortness of breath] Onset: 11-18-2014 03-24-2022 Episodic Other nervous system disorders (1 source) Neurogenic claudication; 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: [Spinal Stenosis, lumbar region with neurogenic claudication] Onset: 01-28-2015 Episodic Other non-traumatic joint disorders (1 source) Pain in left ankle and joints of left foot Onset: 11-07-2021 Resolved: 11-07-2021 Episodic Other non-traumatic joint disorders (1 source) Arthralgia of the ankle and/or foot; 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: [Pain in joint, ankle and foot] Onset: 03-12-2019 Episodic Other non-traumatic joint disorders (1 source) Knee joint effusion; 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: [Effusion, left knee] Onset: 05-12-2017 Episodic Other non-traumatic joint disorders (1 source) Arthralgia of the lower leg; 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: [Pain in right knee] Onset: 05-12-2017 Episodic Other screening for suspected conditions (not mental disorders or infectious disease) (6 sources) Encounter for screening mammogram for malignant neoplasm of breast; 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: [Imaging of abdomen abnormal] Onset: 06-16-2015 Episodic Other skin disorders (1 source) Mass in head or neck; 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: [Swelling, mass, or lump in head and neck] Onset: 02-06-2015 Episodic Residual codes; unclassified (1 source) Asymptomatic menopausal state Onset: 01-28-2022 Resolved: 01-28-2022 Episodic Residual codes; unclassified (1 source) Family history of ischemic heart disease; 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: [Family history of ischemic heart disease] Onset: 02-14-2014 Episodic Residual codes; unclassified (1 source) Edema; 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: [Edema] Onset: 11-06-2014 Episodic Residual codes; unclassified (1 source) Requires influenza virus vaccination; 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: [Need for prophylactic vaccination and inoculation, Influenza] Onset: 08-19-2015 Episodic Residual codes; unclassified (1 source) Localized edema; 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: [Localized edema] Onset: 10-07-2016 Episodic Screening and history of mental health and substance abuse codes (1 source) History of tobacco use; 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: [Personal history of tobacco use, presenting hazards to health] Onset: 02-22-2017 Episodic Unclassified (1 source) Low back pain, unspecified M54.50 Onset: 01-28-2022 Resolved: 01-28-2022 Unclassified (1 source) Acute cough R05.1 Results Test Name Value Interpretation Reference Range Facility MG MAMM SCREEN 3D DEBRA CADon 04-07-2023 MG MAMM SCREEN 3D DEBRA CAD Patient: SANDRA TAVAREZ Exam Date: 04/07/2023 : 1940 Gender:F Ordering : DR ROBERT VAIL D.O. Admission #: [id number] Family : Order #: [id number] CLICK HERE TO VIEW EXAM RADIOLOGY REPORT PROCEDURE: MAMMOGRAM SCREENING 3D BILATERAL CAD COMPARISON: MG MAMM SCREEN 3D DEBRA CAD, 02/05/2022. MG MAMM SCREEN DEBRA W CAD, 12/08/2020. MG MAMM SCREEN DEBRA W CAD, 11/27/2019. MG MAMM SCREEN DEBRA W CAD, 11/23/2018. INDICATIONS: Screening mammography Calculator Name NCI Breast Cancer Risk Assessment Tool 5 Year Breast Cancer Risk 1.40% Lifetime Breast Cancer Risk 2.10% Personal Breast Cancer No Personal Ovarian Cancer No Treatments None Family Cancers Grandmother-maternal with liver cancer at age 85; Father with leukemia cancer at age 42. LOCATION: [facility] BREAST COMPOSITION: Scattered areas fibroglandular density. FINDINGS: DIAGNOSTIC CATEGORY 2--BENIGN FINDING: RIGHT BREAST: No significant suspicious finding. Scattered benign-appearing calcifications are present. Scattered benign-appearing lymph nodes are present. No significant change has occurred. LEFT BREAST: No significant suspicious finding. Scattered benign-appearing calcifications are present. Scattered benign-appearing lymph nodes are present. No significant change has occurred. RECOMMENDATIONS: ROUTINE MAMMOGRAM AND CLINICAL EVALUATION IN 12 MONTHS. PLEASE NOTE: A NORMAL MAMMOGRAM DOES NOT EXCLUDE THE POSSIBILITY OF BREAST CANCER. A CLINICALLY SUSPICIOUS PALPABLE LUMP SHOULD BE BIOPSIED. Dictated by: Nida Alvarez M.D. on 04/07/2023 at 14:33 Approved by: Nida Alvarez M.D. on 04/07/2023 at 14:36 Normal [facility] CBC AUTO DIFFon 03-14-2023 BASO # 0.1 103/ul Normal 0.0-0.1 [facility] Comment on above: Performed By: #### C BC ####[facility] [address] [place] [address]Dr. Gaurav Louis Basophils/100 WBC (Bld) 0.9 % Normal 0.2-2.0 [facility] Comment on above: Performed By: #### C BC ####[facility] [address] [place], [place] [address]Dr. Gaurav Louis EO # 0.1 103/ul Normal 0.0-0.7 [facility] Comment on above: Performed By: #### C BC ####[facility] [address] [place], [place] [id number]. Gaurav Louis Eosinophils/100 WBC (Bld) 1.2 % Normal 0.9-7.0 [facility] Comment on above: Performed By: #### C BC ####[facility] [address] [place] [address]Dr. Gaurav Louis Erythrocyte distribution width (RBC) [Ratio] 13.2 % Normal 11.0-15.0 [facility] Comment on above: Performed By: #### C BC ####[facility] [address] [place] [address]Dr. Gaurav Louis Hematocrit (Bld) [Volume fraction] 44.1 % Normal 36.0-48.0 [facility] Comment on above: Performed By: #### C BC ####[facility] [address] [place] [id number]. Gaurav Louis Hemoglobin (Bld) [Mass/Vol] 14.7 g/dL Normal 12.0-16.0 [facility] Comment on above: Performed By: #### C BC ####[facility] [address] [place] [id number]. Gaurav Louis IG # 0.02 10e3/ul Normal 0.00-0.03 [facility] Comment on above: Performed By: #### C BC ####[facility] [address] [place] [phone]. Gaurav Louis IG % 0.4 % Normal 0.0-0.5 [facility] Comment on above: Performed By: #### C BC ####[facility] [address] [place] [address]Dr. Gaurav Louis LYMPH # 0.9 103/ul Critically low 1.2-3.8 [facility] Comment on above: Performed By: #### C BC ####[facility] [address] [place] [address]Dr. Gaurav Louis Lymphocytes/100 WBC (Bld) 16.5 % Critically low 20.5-60.0 [facility] Comment on above: Performed By: #### C BC ####[facility] [address] [place] [id number]. Gaurav Louis MANUAL DIFF REQ NO Normal [facility] Comment on above: Performed By: #### C BC ####[facility] [address] [place] [address]Dr. Gaurav Louis MCH (RBC) [Entitic mass] 30.7 pg Normal 26.7-34.0 [facility] Comment on above: Performed By: #### C BC ####[facility] [address] [place] [address]Dr. Gaurav Louis MCHC (RBC) [Mass/Vol] 33.3 g/dL Normal 29.9-35.2 [facility] Comment on above: Performed By: #### C BC ####[facility] [address] [place] [phone]. Gaurav Louis MCV (RBC) [Entitic vol] 92.1 fL Normal 81.0-99.0 [facility] Comment on above: Performed By: #### C BC ####[facility] [address] [place] [phone]. Gaurav Louis MONO # 0.5 103/ul Normal 0.3-0.8 [facility] Comment on above: Performed By: #### C BC ####[facility] [address] [place] [phone]. Gaurav Louis Monocytes/100 WBC (Bld) 8.0 % Normal 1.7-12.0 [facility] Comment on above: Performed By: #### C BC ####[facility] [address] [place], [place] [id number]. Gaurav Louis NEUT # 4.1 103/ul Normal 1.4-6.5 [facility] Comment on above: Performed By: #### C BC ####[facility] [address] [place], [place] [id number]. Gaurav Louis Neutrophils/100 WBC (Bld) 73.0 % Normal 43.0-75.0 [facility] Comment on above: Performed By: #### C BC ####[facility] [address] [place], [place] [id number]. Gaurav Louis Platelet mean volume (Bld) [Entitic vol] 10.0 fL Normal 9.5-13.5 [facility] Comment on above: Performed By: #### C BC ####[facility] [address] [place] [phone]. Gaurav Louis PLT 184 103/ul Normal 150-450 [facility] Comment on above: Performed By: #### C BC ####[facility] [address] [place], [place] [address]Dr. Gaurav Louis RBC 4.79 106/ul Normal 4.20-5.40 [facility] Comment on above: Performed By: #### C BC ####[facility] [address] [place] [phone]. Gaurav Louis WBC 5.6 103/ul Normal 4.0-11.0 [facility] Comment on above: Performed By: #### C BC ####[facility] [address] [place] [phone]. Gaurav Louis GLYCOHEMOGLOBIN A1Con 2022 ADA RECOMMENDATION SEE BELOW Normal [facility] Comment on above: Result Comment: ADA RECOMMENDED LIMIT 4.0 - 6.0 ADA THERAPEUTIC TARGET < 7.0 ACTION SUGGESTED > 7.0 Performed By: #### A 1C #### [facility] [address] [address] [address] Gaurav Louis Glucose [Mass/Vol] 148 mg/dL Normal [facility] Comment on above: Performed By: #### A 1C #### [facility] [address] [address] [address] Gaurav Louis HbA1c (Bld) [Mass fraction] 6.8 % Critically high 4.5-6.2 [facility] Comment on above: Performed By: #### A 1C #### [facility] [address] [address] [address] Gaurav Louis LIPID PROFILEon 03-14-2023 CHOL-HDL RATIO NORM SEE BELOW Normal [facility] Comment on above: Result Comment: 3.3 - 4.4 LOW RISK 4.4 - 7.1 AVERAGE RISK 7.1 - 11.0 MODERATE RISK >11.0 HIGH RISK Performed By: #### T TANIKA, LIPID, BMP #### [facility] [address] [address] [address] Gaurav Louis Cholesterol [Mass/Vol] 137 mg/dL Normal <=200 [facility] Comment on above: Performed By: #### T TANIKA, LIPID, BMP #### [facility] [address] [address] [address] Gaurav Louis Cholesterol in HDL [Mass/Vol] 63 mg/dL Critically high 40-60 [facility] Comment on above: Performed By: #### T TANIKA, LIPID, BMP #### [facility] [address] [address] [address] Gaurav Louis Cholesterol in LDL [Mass/Vol] 57.8 mg/dL Normal [facility] Comment on above: Performed By: #### T TANIKA, LIPID, BMP #### [facility] [address] [address] [address] Gaurav Louis Cholesterol.total/C holesterol in HDL [Mass ratio] 2.2 {ratio} Normal [facility] Comment on above: Performed By: #### T SH, LIPID, BMP #### [facility] [address] [address] [address] Gaurav Louis HDL NORMAL > or = 60 mg/dl - LO W CARDIOVASCULAR RISK <40 mg/dl - HIGH CARDIOVASCULAR RISK Normal [facility] Comment on above: Performed By: #### T TANIKA, LIPID, BMP #### [facility] [address] [place] [address] Dr. Gaurav Louis LDL CALC NORMAL SEE BELOW Normal [facility] Comment on above: Result Comment: <100 mg/dl OPTIMAL 100 - 129 mg/dl NEAR OR ABOVE OPTIMAL 130 - 159 mg/dl BORDERLINE HIGH 160 - 189 mg/dl HIGH >190 mg/dl VERY HIGH Performed By: #### T TANIKA, LIPID, BMP #### [facility] [address] [place] [address] Dr. Gaurav Louis Triglyceride [Mass/Vol] 81 mg/dL Normal <=150 [facility] Comment on above: Performed By: #### T TANIKA, LIPID, BMP #### [facility] [address] [place] [address] Dr. Gaurav Louis VLDL CALC 16.2 mg/dL Normal [facility] Comment on above: Performed By: #### T TANIKA, LIPID, BMP #### [facility] [address] [address] [address] Gaurav Louis MICROALBUMIN, RAND URon 04- mALB 2.8 mg/L Normal <=30.0 [facility] Comment on above: Performed By: #### M ALBR #### [facility] [address] [place] [address] Dr. Gaurav Louis PROF CHEM 8 (BAS METB)on Anion gap [Moles/Vol] 13.4 mmol/L Normal [facility] Comment on above: Performed By: #### T TANIKA LIPID, BMP #### [facility] [address] [address] [address] Gaurav Louis Calcium [Mass/Vol] 9.7 mg/dL Normal 8.5-10.1 [facility] Comment on above: Performed By: #### T TANIKA LIPID, BMP #### [facility] [address] [address] [address] Gaurav Louis Chloride [Moles/Vol] 103 mmol/L Normal 98-107 [facility] Comment on above: Performed By: #### T TANIKA LIPID, BMP #### [facility] [address] [place] [address] Dr. Gaurav Louis CO2 [Moles/Vol] 28.2 mmol/L Normal 21.0-32.0 [facility] Comment on above: Performed By: #### T TANIKA LIPID, BMP #### [facility] [address] [place] [address] Dr. Gaurav Louis Creatinine [Mass/Vol] 0.94 mg/dL Normal 0.55-1.02 [facility] Comment on above: Performed By: #### T TANIKA LIPID, BMP #### [facility] [address] [place] [address] Dr. Gaurav Louis EGFR-AF [place] >60 Normal >=60 [facility] Comment on above: Performed By: #### T TANIKA LIPID, BMP #### [facility] [address] [place] [address] Dr. Gaurav Louis EGFR-NON AF [place] 57 mL/min/1.73m2 Critically low >=60 [facility] Comment on above: Performed By: #### T TANIKA LIPID, BMP #### [facility] [address] [place] [address] Dr. Gaurav Louis Glucose [Mass/Vol] 155 mg/dL Critically high 74-106 [facility] Comment on above: Performed By: #### T TANIKA, LIPID, BMP #### [facility] [address] [address] [address] Gaurav Louis Potassium [Moles/Vol] 3.6 mmol/L Normal 3.5-5.1 [facility] Comment on above: Performed By: #### T TANIKA, LIPID, BMP #### [facility] [address] [address] [address] Gaurav Louis Sodium [Moles/Vol] 141 mmol/L Normal 136-145 [facility] Comment on above: Performed By: #### T TANIKA, LIPID, BMP #### [facility] [address] [address] [address] Gaurav Louis Urea nitrogen [Mass/Vol] 19.0 mg/dL Critically high 7.0-18.0 [facility] Comment on above: Performed By: #### T TANIKA, LIPID, BMP #### [facility] [address] [place] [address] Dr. Gaurav Louis Urea nitrogen/Creatinine [Mass ratio] 20.2 mg/mg Normal [facility] Comment on above: Performed By: #### T TANIKA, LIPID, BMP #### [facility] [address] [place] [address] Dr. Gaurav Louis TSHon 03-14-2023 TSH 0.784 uIU/mL Normal 0.358-3.740 [facility] Comment on above: Performed By: #### T TANIKA, LIPID, BMP #### [facility] [address] [address] [address] Gaurav Louis SARS-CoV-2 (COVID-19) RNA NA A+probe Ql (Resp)on 09-11-2022 SARS-CoV-2 (COVID-19) RNA LANDEN+probe Ql (Unsp spec) Positive [employer] Other CBC AUTO DIFFon 07-06-2022 BASO # 0.1 103/ul Normal 0.0-0.1 [facility] Comment on above: Performed By: #### C BC #### [facility] [address] [place] [address] Dr. Gaurav Louis Basophils/100 WBC (Bld) 0.5 % Normal 0.2-2.0 [facility] Comment on above: Performed By: #### C BC #### [facility] [address] [place] [address] Dr. Gaurav Louis EO # 0.1 103/ul Normal 0.0-0.7 [facility] Comment on above: Performed By: #### C BC #### [facility] [address] [place] [address] Dr. Gaurav Louis Eosinophils/100 WBC (Bld) 0.7 % Critically low 0.9-7.0 [facility] Comment on above: Performed By: #### C BC #### [facility] [address] [place] [address] Dr. Gaurav Louis Erythrocyte distribution width (RBC) [Ratio] 22.5 % Critically high 11.0-15.0 [facility] Comment on above: Result Comment: 2+ a nisocytosis Performed By: #### C BC #### [facility] [address] [place] [address] Dr. Gaurav Louis Hematocrit (Bld) [Volume fraction] 41.4 % Normal 36.0-48.0 [facility] Comment on above: Performed By: #### C BC #### [facility] [address] [place] [address] Dr. Gaurav Louis Hemoglobin (Bld) [Mass/Vol] 13.4 g/dL Normal 12.0-16.0 [facility] Comment on above: Performed By: #### C BC #### [facility] [address] [place] [address] Dr. Gaurav Louis IG # 0.04 10e3/ul Critically high 0.00-0.03 [facility] Comment on above: Performed By: #### C BC #### [facility] [address] [place] [address] Dr. Gaurav Louis IG % 0.4 % Normal 0.0-0.5 [facility] Comment on above: Performed By: #### C BC #### [facility] [address] [place] [address] Dr. Gaurav Louis LYMPH # 1.1 103/ul Critically low 1.2-3.8 [facility] Comment on above: Performed By: #### C BC #### [facility] [address] [place] [address] Dr. Gaurav Louis Lymphocytes/100 WBC (Bld) 10.2 % Critically low 20.5-60.0 [facility] Comment on above: Performed By: #### C BC #### [facility] [address] [place] [address] Dr. Gaurav Louis MANUAL DIFF REQ NO Normal [facility] Comment on above: Performed By: #### C BC #### [facility] [address] [place] [address] Dr. Gaurav Louis MCH (RBC) [Entitic mass] 28.3 pg Normal 26.7-34.0 [facility] Comment on above: Performed By: #### C BC #### [facility] [address] [place] [address] Dr. Gaurav Louis MCHC (RBC) [Mass/Vol] 32.4 g/dL Normal 29.9-35.2 [facility] Comment on above: Performed By: #### C BC #### [facility] [address] [place] [address] Dr. Gaurav Louis MCV (RBC) [Entitic vol] 87.5 fL Normal 81.0-99.0 [facility] Comment on above: Performed By: #### C BC #### [facility] [address] [place] [address] Dr. Gaurav Louis MONO # 0.8 103/ul Normal 0.3-0.8 [facility] Comment on above: Performed By: #### C BC #### [facility] [address] [place] [address] Dr. Gaurav Louis Monocytes/100 WBC (Bld) 7.3 % Normal 1.7-12.0 [facility] Comment on above: Performed By: #### C BC #### [facility] [address] [place] [address] Dr. Gaurav Louis NEUT # 8.4 103/ul Critically high 1.4-6.5 [facility] Comment on above: Performed By: #### C BC #### [facility] [facility] [address] [address] [address] Gaurav Louis Neutrophils/100 WBC (Bld) 80.9 % Critically high 43.0-75.0 [facility] Comment on above: Performed By: #### C BC #### [facility] [address] [address] [address] Gaurav Louis Platelet mean volume (Bld) [Entitic vol] 10.0 fL Normal 9.5-13.5 [facility] Comment on above: Performed By: #### C BC #### [facility] [address] [place] [address] Dr. Gaurav Louis PLT 178 103/ul Normal 150-450 [facility] Comment on above: Performed By: #### C BC #### [facility] [address] [place] [address] Dr. Gaurav Louis RBC 4.73 106/ul Normal 4.20-5.40 [facility] Comment on above: Performed By: #### C BC #### [facility] [address] [address] [address] Gaurav Louis WBC 10.3 103/ul Normal 4.0-11.0 [facility] Comment on above: Performed By: #### C BC #### [facility] [address] [place] [address] Dr. Gaurav Louis US SINGLE QUAD LT LOWERon US SINGLE QUAD LT LOWER EXAM: US SINGLE QUAD LT LOWER HISTORY: Swollen abdomen , cellulitis, pain and erythema COMPARISON: None. TECHNIQUE: Transabdominal ultrasound. FINDINGS: Several geographic shaped, hypoechoic, heterogeneous, and avascular area is within the subcutaneous fat in the region of concern; largest is 4.3 cm. IMPRESSION: 1. Several small irregular fluid collections within the subcutaneous fat corresponding to the region of concern suspected to represent abscesses. Electronically authenticated by: NIDA ALVAREZ Date: 2022-04-30 18:10 Normal [facility] CBC AUTO DIFFon 04-13-2022 BASO # 0.0 103/ul Normal 0.0-0.1 [facility] Comment on above: Performed By: #### C BC #### [facility] [address] [place] [address] Dr. Gaurav Louis Basophils/100 WBC (Bld) 0.6 % Normal 0.2-2.0 [facility] Comment on above: Performed By: #### C BC #### [facility] [address] [place] [address] Dr. Gaurav Louis EO # 0.1 103/ul Normal 0.0-0.7 [facility] Comment on above: Performed By: #### C BC #### [facility] [address] [place] [address] Dr. Gaurav Louis Eosinophils/100 WBC (Bld) 1.7 % Normal 0.9-7.0 [facility] Comment on above: Performed By: #### C BC #### [facility] [address] [place] [address] Dr. Gaurav Louis Erythrocyte distribution width (RBC) [Ratio] 21.1 % Critically high 11.0-15.0 [facility] Comment on above: Performed By: #### C BC #### [facility] [address] [place] [address] Dr. Gaurav Louis Hematocrit (Bld) [Volume fraction] 33.6 % Critically low 36.0-48.0 [facility] Comment on above: Performed By: #### C BC #### [facility] [address] [place] [address] Dr. Garuav Louis Hemoglobin (Bld) [Mass/Vol] 10.0 g/dL Critically low 12.0-16.0 [facility] Comment on above: Performed By: #### C BC #### [facility] [address] [place] [address] Dr. Gaurav Louis IG # 0.02 10e3/ul Normal 0.00-0.03 [facility] Comment on above: Performed By: #### C BC #### [facility] [address] [place] [address] Dr. Gaurav Louis IG % 0.4 % Normal 0.0-0.5 [facility] Comment on above: Performed By: #### C BC #### [facility] [address] [address] [address] Gaurav Louis LYMPH # 1.0 103/ul Critically low 1.2-3.8 [facility] Comment on above: Performed By: #### C BC #### [facility] [address] [address] [address] Gaurav Louis Lymphocytes/100 WBC (Bld) 18.3 % Critically low 20.5-60.0 [facility] Comment on above: Performed By: #### C BC #### [facility] [address] [place] [address] Dr. Gaurav Louis MANUAL DIFF REQ NO Normal [facility] Comment on above: Performed By: #### C BC #### [facility] [address] [place] [address] Dr. Gaurav Louis MCH (RBC) [Entitic mass] 22.8 pg Critically low 26.7-34.0 [facility] Comment on above: Performed By: #### C BC #### [facility] [address] [place] [address] Dr. Gaurav Louis MCHC (RBC) [Mass/Vol] 29.8 g/dL Critically low 29.9-35.2 [facility] Comment on above: Performed By: #### C BC #### [facility] [address] [place] [address] Dr. Gaurav Louis MCV (RBC) [Entitic vol] 76.7 fL Critically low 81.0-99.0 [facility] Comment on above: Performed By: #### C BC #### [facility] [address] [place] [address] Dr. Gaurav Louis MONO # 0.5 103/ul Normal 0.3-0.8 [facility] Comment on above: Performed By: #### C BC #### [facility] [address] [place] [address] Dr. Gaurav Louis Monocytes/100 WBC (Bld) 8.8 % Normal 1.7-12.0 [facility] Comment on above: Performed By: #### C BC #### [facility] [address] [address] [address] Gaurav Louis NEUT # 3.8 103/ul Normal 1.4-6.5 [facility] Comment on above: Performed By: #### C BC #### [facility] [address] [address] [address] Gaurav Louis Neutrophils/100 WBC (Bld) 70.2 % Normal 43.0-75.0 [facility] Comment on above: Performed By: #### C BC #### [facility] [address] [address] [address] Gaurav Louis Platelet mean volume (Bld) [Entitic vol] 9.4 fL Critically low 9.5-13.5 [facility] Comment on above: Performed By: #### C BC #### [facility] [address] [address] [address] Gaurav Louis PLT 226 103/ul Normal 150-450 [facility] Comment on above: Performed By: #### C BC #### [facility] [address] [address] [address] Gaurav Louis RBC 4.38 106/ul Normal 4.20-5.40 [facility] Comment on above: Performed By: #### C BC #### [facility] [address] [address] [address] Gaurav Louis WBC 5.4 103/ul Normal 4.0-11.0 [facility] Comment on above: Performed By: #### C BC #### [facility] [address] [place] [address] Dr. Gaurav Louis US venous duplex LE [facility] US venous duplex [facility] [address] [place] [id number] Ultrasound Report Signed Patient: Sandra Tavarez MR#: [id number] 7 : 1940 Acct:[id number] Age/Sex: 81 / F ADM Date: 03/24/22 Loc: ER Room: Type: [facility] ER Attending Dr: Ordering Provider: Kanu Root DO Date of Service: 03/24/22 US/US venous duplex LE LT: leg swelling Copies to: Kanu Root DO LEFT LOWER EXTREMITY VENOUS DUPLEX INDICATION: Swollen painful left leg Unilateral left lower extremity venous duplex Doppler study was obtained utilizing B-mode, color- flow and spectral Doppler. FINDINGS: The left common femoral, femoral, and popliteal veins showed adequate compressibility, color-flow and augmentation. . Posterior tibial veins compress. The peroneal veins are not well visualized. The proximal greater saphenous vein is compressible. The contralateral right common femoral vein was compressible with color-flow and augmentation. US/US venous duplex LE LT IMPRESSION: NO EVIDENCE OF DEEP VENOUS THROMBOSIS IN THE LEFT LOWER EXTREMITY. NO SUPERFICIAL THROMBOPHLEBITIS WAS NOTED. Impression dictated by: Tyrone Duncan M.D.03/25/2022 10:37 AM Dictation Location: [address] [address] Tech: Morena Guillory Transcribed By: SHAHIDA 03/25/22 1037 Dictated By: Tyrone Duncan MD 03/25/22 1036 Signed By: 03/25/22 1037 [facility] XR chest 1V portableon 03-25 XR chest 1V portable [facility] [address] [place] [address] [place] [address] XRay Report Signed Patient: Sandra Tavarez MR#: [id number] 7 : 1940 Acct:[id number] Age/Sex: 81 / F ADM Date: 03/24/22 Loc: ER Room: Type: [facility] ER Attending Dr: Ordering Provider: Kanu Root DO Date of Service: 03/24/22 XR/XR chest 1V portable: Extremity Problem, Nontraumatic Copies to: Kanu Root DO PORTABLE AP ERECT CHEST 2112 hours CLINICAL HISTORY: Left lower extremity warmth COMPARISON: None There is shallow inspiration. Interstitial changes are present. There is minor groundglass density. This may be soft tissue attenuation related to patient's breasts. No sizable effusion or pneumothorax is seen. The heart is borderline prominent. There is a suspected hiatal hernia. The bony structures are osteopenic. XR/XR chest 1V portable IMPRESSION: MILD NONSPECIFIC INTERSTITIAL CHANGE OF UNCERTAIN CHRONICITY WITHOUT PRIORS. SUSPECTED HIATAL HERNIA. Impression dictated by: Deonna Arita M.D.03/25/2022 7:56 AM Dictation Location: [address] [address] Transcribed By: [facility] 03/25/22 075 Dictated By: Deonna Arita MD 03/25/22 0754 Signed By: 03/25/22 075 Normal [facility] B-Type Natriuretic Peptideon 03-24-2022 Natriuretic peptide B (Bld) [Mass/Vol] 57.0 pg/mL Normal 5-100 [facility] Comment on above: Result Comment: PERF ORMED BY: [place] [address] PATHOLOGIST [employer]SULTANT HERMELINDO BLUM M.D. Performed By: #### C BC, CMP, BNP #### [address] Complete Blood Count Auto Di ffon 03-24-2022 Basophils (Bld) [#/Vol] 0.1 10*3/uL Normal 0.0-0.2 [facility] Comment on above: Result Comment: PERF ORMED BY: [place] [address] PATHOLOGIST [employer] CONSULTANT HERMELINDO BLUM M.D. Performed By: #### C BC, CMP, BNP #### [address] Basophils/100 WBC (Bld) 1.3 % Normal . [facility] Comment on above: Performed By: #### C BC, CMP, BNP #### [place] [address] [place] Eosinophils (Bld) [#/Vol] 0.1 10*3/uL Normal 0.0-0.45 [facility] Comment on above: Performed By: #### C BC, CMP, BNP #### [place] [address] [place] Eosinophils/100 WBC (Bld) 0.8 % Normal . [facility] Comment on above: Performed By: #### C BC, CMP, BNP #### [address] Erythrocyte distribution width (RBC) [Ratio] 19.6 % High 11.9-15.3 [facility] Comment on above: Performed By: #### C BC, CMP, BNP #### [address] Hematocrit (Bld) [Volume fraction] 32.1 % Low 34.0-46.4 [facility] Comment on above: Performed By: #### C BC, CMP, BNP #### [address] Hemoglobin (Bld) [Mass/Vol] 10.0 g/dL Low 11.8-15.4 [facility] Comment on above: Performed By: #### C BC, CMP, BNP #### [address] Lymphocytes (Bld) [#/Vol] 1.2 10*3/uL Normal 1.00-4.8 [facility] Comment on above: Performed By: #### C BC, CMP, BNP #### [address] Lymphocytes/100 WBC (Bld) 16.9 % Normal . [facility] Comment on above: Performed By: #### C BC, CMP, BNP #### [address] MCH (RBC) [Entitic mass] 22.5 pg Low 24.7-34.3 [facility] Comment on above: Performed By: #### C BC, CMP, BNP #### [address] MCV (RBC) [Entitic vol] 71.9 fL Low 80-100 [facility] Comment on above: Performed By: #### C BC, CMP, BNP #### [address] Mean Corpuscular HGB Conc 31.3 g/dL Low 32.0-35.0 [facility] Comment on above: Performed By: #### C BC, CMP, BNP #### [facility] [address] [place] [address] [place] Monocytes (Bld) [#/Vol] 0.7 10*3/uL Normal 0.0-0.8 [facility] Comment on above: Performed By: #### C BC, CMP, BNP #### [facility] [address] [place] [address] [place] Monocytes/100 WBC (Bld) 9.8 % Normal . [facility] Comment on above: Performed By: #### C BC, CMP, BNP #### [facility] [address] Neutrophils (Bld) [#/Vol] 5.0 10*3/uL Normal 1.8-7.7 [facility] Comment on above: Performed By: #### C BC, CMP, BNP #### [address] Neutrophils/100 WBC (Bld) 71.2 % Normal . [facility] Comment on above: Performed By: #### C BC, CMP, BNP #### [place] [address] [place] Nucleated RBC/100 WBC (Bld) [Ratio] 0.1 % Normal 0-0.5 [facility] Comment on above: Performed By: #### C BC, CMP, BNP #### [facility] [address] [place] [address] [place] Platelet mean volume (Bld) [Entitic vol] 8.1 fL Normal 6.3-10.7 [facility] Comment on above: Performed By: #### C BC, CMP, BNP #### [facility] [address] [place] [address] [place] Platelets (Bld) [#/Vol] 304 10*3/uL Normal 150-450 [facility] Comment on above: Performed By: #### C BC, CMP, BNP #### [facility] [address] RBC (Bld) [#/Vol] 4.46 10*6/uL Normal 3.60-5.00 [facility] Comment on above: Performed By: #### C BC, CMP, BNP #### [facility] [address] WBC (Bld) [#/Vol] 7.0 10*3/uL Normal 4.5-11.0 [facility] Comment on above: Performed By: #### C BC, CMP, BNP #### [address] Comprehensive Metabolic Pane lorri 03-24-2022 Albumin [Mass/Vol] 3.2 g/dL Normal 3.2-5.5 [facility] Comment on above: Performed By: #### C BC, CMP, BNP #### [address] Albumin/Globulin [Mass ratio] 1.0 {ratio} Normal [facility] Comment on above: Performed By: #### C BC, CMP, BNP #### [address] ALP [Catalytic activity/Vol] 97 U/L High 32-92 [facility] Comment on above: Performed By: #### C BC, CMP, BNP #### [address] ALT [Catalytic activity/Vol] 16 U/L Normal 10-60 [facility] Comment on above: Performed By: #### C BC, CMP, BNP #### [address] AST [Catalytic activity/Vol] 18 U/L Normal 10-42 [facility] Comment on above: Performed By: #### C BC, CMP, BNP #### [address] Bilirubin [Mass/Vol] 0.2 mg/dL Low 0.3-1.2 [facility] Comment on above: Performed By: #### C BC, CMP, BNP #### [address] Calcium [Mass/Vol] 8.8 mg/dL Normal 8.2-10.2 [facility] Comment on above: Performed By: #### C BC, CMP, BNP #### [address] Chloride [Moles/Vol] 100 mmol/L Normal 95-114 [facility] Comment on above: Performed By: #### C BC, CMP, BNP #### [address] CO2 [Moles/Vol] 23.6 mmol/L Normal 22.0-30.0 [facility] Comment on above: Performed By: #### C BC, CMP, BNP #### [address] Creatinine [Mass/Vol] 0.83 mg/dL Normal 0.44-1.03 [facility] Comment on above: Performed By: #### C BC, CMP, BNP #### [address] Creatinine Clr Calc Pharmacy 65.29 [facility] Comment on above: Result Comment: PERF ORMED BY: [place] [address] PATHOLOGIST [employer]SULTANT HERMELINDO BLUM M.D. Performed By: #### C BC, CMP, BNP #### [address] Estimated GFR ( Gemini > 60 [facility] Comment on above: Result Comment: GFR estimated reference range: According to KDOQI guidelines, <60 ml/min/1.73m2 is sufficient to diagnose a patient with chronic kidney disease. Performed By: #### C BC, CMP, BNP #### [address] Estimated GFR (Non- Am > 60 [facility] Comment on above: Performed By: #### C BC, CMP, BNP #### [address] Globulin (S) [Mass/Vol] 3.1 g/dL Normal [facility] Comment on above: Performed By: #### C BC, CMP, BNP #### [facility] [address] Glucose [Mass/Vol] 116 mg/dL High 70-100 [facility] Comment on above: Result Comment: [facility] Glucose Reference Range is dependent on time and content of last meal. Glucose of more than 200 mg/dL in a nonstressed, ambulatory subject supports the diagnosis of Diabetes Mellitus. ADA recommended reference range Performed By: #### C BC, CMP, BNP #### [facility] [address] Potassium [Moles/Vol] 3.9 mmol/L Normal 3.5-5.1 [facility] Comment on above: Performed By: #### C BC, CMP, BNP #### [facility] [address] Protein [Mass/Vol] 6.3 g/dL Normal 6.1-7.9 [facility] Comment on above: Performed By: #### C BC, CMP, BNP #### [facility] [address] Sodium [Moles/Vol] 135 mmol/L Low 136-146 [facility] Comment on above: Performed By: #### C BC, CMP, BNP #### [facility] [address] Urea nitrogen [Mass/Vol] 24 mg/dL High 9-23 [facility] Comment on above: Performed By: #### C BC, CMP, BNP #### [facility] [address] Outside Colonoscopyon 2021 Outside Colonoscopy [id number] .[id number]:127 Normal [facility] Reminderson 03-11-2022 Reminders - From: Gabi Hernandez LPN To: GSN - Clinical; Sent: 03/11/2022 15:08:38 EDT Show up: 02/07/2025 07:00:00 EDT Subject: colonoscopy recall Due Date/Time: 03/10/2025 07:00:00 EDT Reminder/Recall Patient is due for colonoscopy 03/10/2025 to attempt to retrieve cecal polyp that was unable to be removed due to location and redundant colon. Normal [facility] Lab Reportson 03-09-2022 Lab Reports [id number]. 00CD:127 Normal [facility] Consent for Procedure/Surger yon 03-05-2022 Consent for Procedure/Surgery [id number] .[id number]:127 Normal [facility] Ambulatory Visit Summaryon 0 03-04-2022 Ambulatory Visit Summary SANDRA TAVAREZ :1940 Visit Date:03/04/2022 Ambulatory Visit Instructions Your Diagnosis Iron deficiency anemia Chronic anticoagulation BMI 50.0-59.9, adult Your Care Team Attending Physician - GEORGE JENNINGS, Taye Lopez Primary Care Physician - ROBERT VAIL DO This Is Your Medications List Contact prescribing physician if questions or concerns alendronate (Fosamax 70 mg oral tablet) atorvastatin (atorvastatin 20 mg Tab) furosemide (Lasix 20 mg Tab) iron polysaccharide (Ferrex-150 oral capsule) levetiracetam (Keppra 500 mg Tab) losartan (losartan 50 mg Tab) phenytoin (Dilantin 100 mg Cap-ER) potassium chloride (potassium chloride 10 mEq ER Tab) warfarin (Coumadin 5 mg Tab) Procedures Performed IOL - Cataract extraction and insertion of intraocular lens (09/13/2017), Cataract extraction and insertion of intraocular lens (08/16/2017), L4-L5 lumbar laminectomy, foraminotomy with facetectomy with decompression L5 nerve roots bilaterally (04/07/2015), Colonoscopy (2009), Colonoscopy (2004), Craniotomy (1964), Arthroplasty of knee, Cholecystectomy, Chondroplasty, Cystoscopy, EGD, insertion of jaspreet filter, Knee arthroplasty, Lap sigmoid resection, orif right femur, right knee arthroscopy, Rotator cuff repair. Discharge Vitals Heart Rate (Peripheral) 72 Respiratory Rate 20 Blood Pressure 160/82 Height 152.5 cm Height 152.5 cm Weight 122.6 kg Weight 122.6 kg BMI 52.72 Medications What How Much When Instructions Unchanged alendronate (Fosamax 70 mg oral tablet) 1 Tablets By Mouth Every week Contact prescribing physician if questions or concerns Unchanged atorvastatin (atorvastatin 20 mg Tab) 1 Tablets By Mouth Once a day (at bedtime) Contact prescribing physician if questions or concerns Unchanged furosemide (Lasix 20 mg Tab) 1 Tablets By Mouth 2 times a day Contact prescribing physician if questions or concerns Unchanged iron polysaccharide (Ferrex-150 oral capsule) 1 Capsules By Mouth Every day Contact prescribing physician if questions or concerns Unchanged levetiracetam (Keppra 500 mg Tab) 1 Tablets By Mouth 2 times a day 1 caps in AM 1 cap at bedtime Contact prescribing physician if questions or concerns Unchanged losartan (losartan 50 mg Tab) 1 Tablets By Mouth Every day Contact prescribing physician if questions or concerns Unchanged phenytoin (Dilantin 100 mg Cap-ER) 1 Capsules By Mouth 2 times a day Contact prescribing physician if questions or concerns Unchanged potassium chloride (potassium chloride 10 mEq ER Tab) 1 Tablets By Mouth Every day Contact prescribing physician if questions or concerns Unchanged warfarin (Coumadin 5 mg Tab) See instructions as directed Contact prescribing physician if questions or concerns Allergies CeleBREX (rash) Tape (rash) penicillins (groggy) Problems Ongoing - Any problem that you are currently receiving treatment for. Acquired spondylolisthesis Adrenal adenoma Anemia, iron deficiency BMI 50.0-59.9, adult Chronic anticoagulation Chronic venous insufficiency CVF (colovesical fistula) Depression Diabetes Extreme obesity GERD (gastroesophageal reflux disease) History of deep vein thrombosis History of pulmonary embolism HTN (hypertension) Hypercoagulable state Hyperlipidemia Iron deficiency anemia Lumbar stenosis with neurogenic claudication Obstructive sleep apnea Osteoporosis Pulmonary hypertension Seizure disorder Historical - Any problem that you are no longer receiving treatment for. Cholelithiasis Colovesical fistula CVI (common variable immunodeficiency) Diverticulosis Hyperlipidemia Obesity PE (pulmonary thromboembolism) Seizure SNHL (sensorineural hearing loss) Normal [facility] Lab Reportson 03-04-2022 Lab Reports [id number] .[id number]:127 Normal [facility] Lab Reports [id number]. 00CD:127 Normal [facility] Lab Reports [id number]. 00CD:127 Normal [facility] Physician Referralon 022 Physician Referral [id number] .[id number]:127 Normal [facility] Prothrombin Time INRon 02-24 INR Coag (PPP) [Relative time] 1.2 {INR} Normal [facility] Comment on above: Order Comment: Reaso n for Exam Anticoagulant long-term use List the anticoagulant: COUMADIN/WARFARIN Result Comment: INR Therapeutic Range A) Pre- and Peroperative OAT started two weeks before surgery. NOT HIP SURGERY: 1.5 - 2.5 HIP SURGERY: 2 - 3 B) Primary and secondary prevention of venous THROMBOSIS: 2 - 3 C) Active venous thrombosis, pulmonary embolism and prevention of recurrent venous thrombosis: 2 - 3 D) Prevention of arterial thromboembolism including patients with mechanical heart valves: 3 - 4.5 PERFORMED BY: [place] [address] PATHOLOGIST [employer] CONSULTANT HERMELINDO BLUM M.D. Performed By: #### P T #### [facility] [address] [place] [address] PT Coag (PPP) [Time] 13.9 s High 9.0-12.9 [facility] Comment on above: Order Comment: Reaso n for Exam Anticoagulant long-term use List the anticoagulant: COUMADIN/WARFARIN Performed By: #### P T #### [facility] [address] [place] [address] [place] XR pre/post mri xrayon 01-02 XR pre/post mri xray [facility] [place] [address] MRI Report Signed Patient: Sandra Tavarez MR#: [id number] 7 : 1940 Acct:[id number] Age/Sex: 81 / F ADM Date: 01/02/22 Loc: MR Room: Type: [facility] Attending Dr: Jamie Conley DO Ordering Provider: Jamie Conley DO Date of Service: 01/02/22 MR/MR lumbar spine wo con: M48.062, M54.17, M79.2 ([id number]) XR/XR pre/post mri xray: LUMBAR Copies to: Jamie Conley DO MR lumbar spine wo con, XR pre/post mri xray 01/02/2022 10:37 AM SIGNS AND SYMPTOMS: Chronic low back pain radiating down legs bilaterally for 2 years PROTOCOL: Frontal and lateral radiograph the lumbar spine. Multiplanar multisequence MR images of the lumbar spine were obtained without IV contrast. COMPARISON: None. FINDINGS: Radiographs of the lumbar spine: There is posterior fusion hardware at L4-L5 on the left. There is lucency surrounding the transpedicular screws suggesting hardware loosening. There is mild to moderate disc height loss with vacuum disc phenomena at L2-L3, L3-L4, L4-5. There is anterior osteophyte formation throughout the thoracolumbar spine. There is an inferior vena cava filter. Atherosclerotic changes are noted in the abdominal aorta. Degenerative changes noted in the sacral iliac joints and hips. MRI lumbar spine: There is posterior fusion hardware as noted above. Disc height loss and alignment is as noted above. There is mild endplate edema at L1-L2. The marrow signal is within normal limits. The conus terminates at the inferior endplate of the L1 vertebral body level. No epidural or paraspinous fluid collection is appreciated. There is an 8mm fat-containing nodule in the right adrenal gland. There is a simple cyst in the right renal cortex. Fatty atrophy is noted in the paraspinous musculature posteriorly. At T12-L1: There is a circumferential disc bulge with facet hypertrophy contributing to moderate spinal canal stenosis. There is moderate left and mild right neural foraminal narrowing. At L1-L2: Facet degenerative changes are present bilaterally with a broad-based disc bulge. There is moderate bilateral neural foraminal narrowing with mild spinal canal narrowing. At L2-L3: There is a circumferential disc bulge with facet hypertrophy. There is mild to moderate spinal canal stenosis with moderate to severe right and moderate left neural foraminal narrowing. At L3-L4: There is a circumferential disc bulge with facet hypertrophy contributing to moderate to severe spinal canal stenosis. There is severe bilateral neural foraminal narrowing. At L4-L5: There is a circumferential disc bulge with residual anterolisthesis. There is moderate to severe bilateral neural foraminal narrowing with moderate to severe spinal canal narrowing. At L5-S1: Facet degenerative changes are present, left greater than right. There is mild spinal canal narrowing. There is moderate to severe left and moderate right neural foraminal narrowing. MR/MR lumbar spine wo con IMPRESSION: There is posterior fusion hardware at L4-L5 on the left. There is lucency surrounding the transpedicular screws suggesting hardware loosening. There is mild to moderate disc height loss with vacuum disc phenomena at L2-L3, L3-L4, L4-5. Extensive multilevel degenerative change contributing to spinal canal or neural foraminal narrowing throughout, as above. Stenosis appears to be greatest at the L3-L4 level suggesting adjacent segment degenerative change. Impression dictated by: Tex Diaz M.D.01/02/2022 11:48 AM Dictation Location: [place] [address] Transcribed By: [facility] 01/02/22 1148 Dictated By: Tex Diaz II, MD 01/02/22 1140 Signed By: 01/02/22 1148 Normal [facility] XR ankle LT min 3V*on 2020 XR ankle LT min 3V* [facility] [place] [address] [place] [address] XRay Report Signed Patient: Sandra Tavarez MR#: [id number] 7 : 1940 Acct:[id number] Age/Sex: 80 / F ADM Date: 11/07/21 Loc: XDUCLY Room: Type: [facility] Attending Dr: Quita ZUNIGA Ordering Provider: NADIA Winslow Date of Service: 11/07/21 XR/XR ankle LT min 3V*: Acute left ankle pain Copies to: NADIA Winslow XR ankle LT min 3V* 11/07/2021 12:15 PM SIGNS AND SYMPTOMS: Pain along the left Achilles and lateral aspect of the calcaneus, limited range of motion PROTOCOL: Frontal, lateral, and oblique radiographs of the left ankle COMPARISON: None FINDINGS: The ankle mortise is preserved. There is cortical irregularity along the inferior margin of the lateral malleolus which may represent sequelae of a previous avulsive-type injury. There is soft tissue swelling diffusely but greatest along the dorsal soft tissues. There is plantar surface calcaneal spurring. Vascular calcifications are present. Degenerative changes are noted in the midfoot. XR/XR ankle LT min 3V* IMPRESSION: No acute displaced fracture. Diffuse soft tissue swelling greatest posteriorly. There is plantar surface calcaneal spurring. Impression dictated by: Tex Diaz M.D.11/07/2021 12:50 PM Dictation Location: [place] [address] Transcribed By: [facility] 11/07/21 1250 Dictated By: Tex Diaz II, MD 11/07/21 1248 Signed By: 11/07/21 1250 [facility] XR ankle LT min 3V* [facility] [employer] Other XR ankle LT min 3V* [facility] [employer] Other XR ankle LT min 3V* [address] [facility] [employer] Other XR ankle LT min 3V* [place] [address] [employer] Other XR ankle LT min 3V* XRay Report [employer] Other XR ankle LT min 3V* Signed [employer] Other XR ankle LT min 3V* Patient: Sandra Tavarez MR#: [id number] [employer] Other XR ankle LT min 3V* 7 [employer] Other XR ankle LT min 3V* : 1940 Acct:[id number] [employer] Other XR ankle LT min 3V* Age/Sex: 80 / F ADM Date: 11/07/21 [employer] Other XR ankle LT min 3V* Loc: XDUCLY Room: Type: REG CLI [employer] Other XR ankle LT min 3V* Attending Dr: Quita ZUNIGA [employer] Other XR ankle LT min 3V* Ordering Provider: NADIA Winslow [employer] Other XR ankle LT min 3V* Date of Service: 11/07/21 [employer] Other XR ankle LT min 3V* XR/XR ankle LT min 3V*: Acute left ankle pain [employer] Other XR ankle LT min 3V* Copies to: NADIA Winslow [employer] Other XR ankle LT min 3V* XR ankle LT min 3V* 11/07/2021 12:15 PM [employer] Other XR ankle LT min 3V* SIGNS AND SYMPTOMS: Pain along the left Achilles and lateral aspect of the calcaneus, limited range [employer] Other XR ankle LT min 3V* of motion [employer] Other XR ankle LT min 3V* PROTOCOL: Frontal, lateral, and oblique radiographs of the left ankle [employer] Other XR ankle LT min 3V* COMPARISON: None [employer] Other XR ankle LT min 3V* FINDINGS: [employer] Other XR ankle LT min 3V* The ankle mortise is preserved. There is cortical irregularity along the inferior margin of the [employer] Other XR ankle LT min 3V* lateral malleolus which may represent sequelae of a previous avulsive-type injury. There is soft [employer] Other XR ankle LT min 3V* tissue swelling diffusely but greatest along the dorsal soft tissues. There is plantar surface [employer] Other XR ankle LT min 3V* calcaneal spurring. Vascular calcifications are present. Degenerative changes are noted in the [employer] Other XR ankle LT min 3V* midfoot. [employer] Other XR ankle LT min 3V* XR/XR ankle LT min 3V* [employer] Other XR ankle LT min 3V* IMPRESSION: [employer] Other XR ankle LT min 3V* No acute displaced fracture. [employer] Other XR ankle LT min 3V* Diffuse soft tissue swelling greatest posteriorly. [employer] Other XR ankle LT min 3V* There is plantar surface calcaneal spurring. [employer] Other XR ankle LT min 3V* Impression dictated by: Tex Diaz M.D.11/07/2021 12:50 PM [employer] Other XR ankle LT min 3V* Dictation Location: [place] [address] [employer] Other XR ankle LT min 3V* Transcribed By: SHAHIDA 11/07/21 1250 [employer] Other XR ankle LT min 3V* Dictated By: Tex Diaz II, MD 11/07/21 1248 [employer] Other XR ankle LT min 3V* Signed By: [employer] Other XR ankle LT min 3V* 11/07/21 1250 No [employer] Other [facility] Preoperative Recordon 0 06-04-2020 [facility] Preoperative Record [facility] Pre-Op Record Summary Primary Physician: FERNANDO SILVA Finalized Date/Time: 06/04/20 08:46:37 Pt. Name: SANDRA TAVAREZ/Sex: 1940 FEMALE Med Rec #: [id number] Physician: FERNANDO SILVA Financial #: [id number] Pt. Type: I Room/Bed: [facility] Admit/Disch: 05/23/20 09:44:18 - 05/27/20 15:15:00 Institution: Pre-Op Case Times [facility] Pre-Care Text: Patient will be optimally prepared for surgery. Patient is free from s/s of injury. Provide information to patient/family related to plan of care. Verify patient allergies. Confirm identity and verify consent before the operative or invasive procedure. Entry 1 Patient Arrival Time 05/23/20 09:44:00 Preop Departure 05/23/20 13:15:00 Last Modified By: Stacy Pena RN 06/04/20 08:46:33 Post-Care Text: Patient is prepared mentally and physically and is ready for surgery. The patient remains free from s/s of injury. Patient/family express understanding of plan of care and participate in decisions affecting his or her perioperrative plan of care. Allergies documented appropriately. Patient identifiers and consent correct. Finalized By: Stacy Pena RN Document Signatures Signed By: Satcy Pena RN 06/04/20 08:46 [facility] Consent Formson 05-28-2020 Consent Forms [id number]#1 .00[facility] Outside Recordson 05-28-2020 Outside Records [id number]#1 .00[facility] Outside Records [id number]#1 .00[facility] Provider Orderson 05-28-2020 Provider Orders [id number]#[address] [place] [address] Telemetry Stripson 0 Telemetry Strips [id number]#1 .00[facility] .Auto Diff 105-27-2020 Auto Harding % 13 % High 1-12 [facility] Comment on above: Performed By: #### 1 [id number], [id number], [id number] #### [facility] (DEFAULT) [address] [place] [address] 99581 Baso Abs# 0.0 x10 Normal 0.0-0.2 [facility] Comment on above: Performed By: #### 1 [id number], [id number], [id number] #### [facility] (DEFAULT) [address] [place] [address] 92935 Basophils/100 WBC (Bld) 0.3 % Normal 0.2-2.0 [facility] Comment on above: Performed By: #### 1 [id number], [id number], [id number] #### [facility] (DEFAULT) [address] [place] [address] 55646 Eos Abs# 0.1 x10 Normal 0.0-0.4 [facility] Comment on above: Performed By: #### 1 [id number], [id number], [id number] #### [facility] (DEFAULT) [address] [place] [address] 64201 Eosinophils/100 WBC (Bld) 1.4 % Normal 0.9-4.0 [facility] Comment on above: Performed By: #### 1 [id number], [id number], [id number] #### [facility] (DEFAULT) [address] [place] [address] 17798 Lymphocytes (Bld) [#/Vol] 1.4 x10 Normal 1.3-2.9 [facility] Comment on above: Performed By: #### 1 [id number], [id number], [id number] #### [facility] (DEFAULT) [address] [place] [address] 25072 Lymphocytes/100 WBC (Bld) 16 % Normal 14-48 [facility] Comment on above: Performed By: #### 1 [id number], [id number], [id number] #### [facility] (DEFAULT) [address] [place] [address] 88149 Harding Abs# 1.1 x10 High 0.0-0.8 [facility] Comment on above: Performed By: #### 1 [id number], [id number], 9703607 #### [facility] (DEFAULT) [address] [place] [address] Neut Abs# 6.1 x10 Normal 1.5-9.2 [facility] Comment on above: Performed By: #### 1 [id number], [id number], [id number] #### [facility] (DEFAULT) [address] [place] [address] Neutrophils/100 WBC (Bld) 70 % Normal 44-88 [facility] Comment on above: Performed By: #### 1 [id number], [id number], [id number] #### [facility] (DEFAULT) [address] [place] [address] Standardon 05-27-2020 eGFR Non AA >60 [facility] Comment on above: Performed By: #### 1 [id number], [id number], [id number] #### [facility] (DEFAULT) [address] [place] [address] eGFR AA >60 [facility] Comment on above: Result Comment: Cleat Blanker ghazal Kidney disease could be indicated at eGFRs of less than 60 ml/min/1.73m2. Kidney Failure is indicated at less than 15 ml/min/1.73m2 Performed By: #### 1 [id number], [id number], [id number] #### [facility] (DEFAULT) [address] [place] [address] 40499 Anion gap [Moles/Vol] 15.0 mmol/L Normal 5.0-19.0 [facility] Comment on above: Performed By: #### 1 [id number], [id number], [id number] #### [facility] (DEFAULT) [address] [place] [address] 20370 Calcium [Mass/Vol] 9.2 mg/dL Normal 8.9-10.3 [facility] Comment on above: Performed By: #### 1 [id number], [id number], [id number] #### [facility] (DEFAULT) [address] [place] [address] Chloride [Moles/Vol] 101 mmol/L Normal 101-111 [facility] Comment on above: Performed By: #### 1 [id number], [id number], [id number] #### [facility] (DEFAULT) [address] [place] [address] CO2 [Moles/Vol] 26 mmol/L Normal 21-32 [facility] Comment on above: Performed By: #### 1 [id number], [id number], 6059709 #### [facility] (DEFAULT) [address] [place] [address] 13326 Creatinine [Mass/Vol] 0.58 mg/dL Low 0.60-1.30 [facility] Comment on above: Performed By: #### 1 [id number], 95765710, [id number] #### [facility] (DEFAULT) [address] [place] [address] 83816 Glucose [Mass/Vol] 120.0 mg/dL High 74.0-118.0 [facility] Comment on above: Performed By: #### 1 [id number], [id number], [id number] #### [facility] (DEFAULT) [address] [place] [address] Osmolality [Osmolality] 279 mOsm/L [facility] Comment on above: Performed By: #### 1 [id number], [id number], [id number] #### [facility] (DEFAULT) [address] [place] [address] 74703 Potassium [Moles/Vol] 3.7 mmol/L Normal 3.6-5.1 [facility] Comment on above: Performed By: #### 1 [id number], [id number], [id number] #### [facility] (DEFAULT) [address] [place] [address] 73728 Sodium [Moles/Vol] 138.0 mmol/L Normal 136.0-144.0 [facility] Comment on above: Performed By: #### 1 [id number], [id number], [id number] #### [facility] (DEFAULT) [address] [place] [address] 76466 Urea nitrogen [Mass/Vol] 19 mg/dL Normal 8-26 [facility] Comment on above: Performed By: #### 1 [id number], [id number], 0272706 #### [facility] (DEFAULT) [address] [place] [address] Urea nitrogen/Creatinine [Mass ratio] 33.0 mg/mg High 4.6-16.2 [facility] Comment on above: Performed By: #### 1 [id number], [id number], [id number] #### [facility] (DEFAULT) [address] [place] [address] CBC w/ Auto Diffon 0 Erythrocyte distribution width (RBC) [Ratio] 18.4 % High 11.5-15.0 [facility] Comment on above: Performed By: #### 1 [id number], [id number], 6116763 #### [facility] (DEFAULT) [address] [place] [address] Hematocrit (Bld) [Volume fraction] 29.7 % Low 33.7-40.4 [facility] Comment on above: Performed By: #### 1 [id number], 77600857, 1558954 #### [facility] (DEFAULT) [address] [place] [address] Hemoglobin (Bld) [Mass/Vol] 9.0 g/dL Low 11.3-15.9 [facility] Comment on above: Performed By: #### 1 [id number], 08944573, 7405353 #### [facility] (DEFAULT) [address] [place] [address] Man Diff? Auto Normal [facility] Comment on above: Performed By: #### 1 [id number], [id number], 7106386 #### [facility] (DEFAULT) [address] [place] [address] MCH (RBC) [Entitic mass] 25 pg Normal 24-34 [facility] Comment on above: Performed By: #### 1 [id number], [id number], 3413662 #### [facility] (DEFAULT) [address] [place] [address] MCHC (RBC) [Mass/Vol] 30 g/dL Normal 26-37 [facility] Comment on above: Performed By: #### 1 [id number], 84416608, 9307752 #### [facility] (DEFAULT) [address] [place] [address] 67703 MCV (RBC) [Entitic vol] 82 fL Normal 81-100 [facility] Comment on above: Performed By: #### 1 [id number], 36667436, 3495686 #### [facility] (DEFAULT) [address] [place] [address] 81799 Platelet mean volume (Bld) [Entitic vol] 10.7 fL High 6.3-10.2 [facility] Comment on above: Performed By: #### 1 [id number], 79667696, 2286925 #### [facility] (DEFAULT) [address] [place] [address] 49994 Platelets (Bld) [#/Vol] 230 x10 Normal 138-427 [facility] Comment on above: Performed By: #### 1 [id number], 87784001, 4813004 #### [facility] (DEFAULT) [address] [place] [address] 75351 RBC (Bld) [#/Vol] 3.60 x10 Low 3.70-5.30 [facility] Comment on above: Performed By: #### 1 [id number], [id number], 3955934 #### [facility] (DEFAULT) [address] [place] [address] 87623 WBC (Bld) [#/Vol] 8.8 x10 [facility] Comment on above: Performed By: #### 1 [id number], [id number], 7770279 #### [facility] (DEFAULT) [address] [place] [address] 60647 Coding Summaryon 05-27-2020 Coding Summary CODING DATE: 05/27/2020 [facility] STATUS: Transfer to Snf PAYOR: Medicare Grouper: 470 MS[employer]G [employer] JOINT REPLACEMENT OR REATTACHMENT OF LOWER EXTREMITY W/O HALFWAY Low Trim 0 High Trim 999 ADMIT DX: M17.12 Unilateral primary osteoarthritis, left knee REASON FOR VISIT DX: FINAL DX: PRINCIPAL: M17.12 Y Unilateral primary osteoarthritis, left knee SECONDARY: D62 N Acute posthemorrhagic anemia I42.9 Y Cardiomyopathy, unspecified R50.82 N Postprocedural fever Y83.1 N Surgical operation with implant of artificial internal device as the cause of abnormal reaction of the patient, or of later complication, without mention of misadventure at the time of the procedure Y92.230 N Patient room in hospital as the place of occurrence of the external cause Z86.711 1 Personal history of pulmonary embolism Z86.718 1 Personal history of other venous thrombosis and embolism 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 G47.33 Y Obstructive sleep apnea (adult) (pediatric) Z99.89 1 Dependence on other enabling machines and devices G40.909 Y Epilepsy, unspecified, not intractable, without status epilepticus Z79.899 1 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 However, the narrative phrase printed from the coding software may appear abbreviated, or result in slightly different terminology. Revised Coded By: Jeane Mccormick Revised Date Saved: 05/27/2020 06:30 pm Normal [facility] Education Noteon 05-27-2020 Education Note Education Materials POST OPERATIVE TOTAL KNEE/HIP DISCHARGE INTRUCTIONS SURGEONS WRITTEN INSTRUCTIONS: Walk with walker; bear weight to tolerance on operative extremity Elevate extremity 1 hour 3 times/day to control pain and swelling and apply cyrocuff Range of motion to ankle 10 times/hour Range of motion to knee hourly Change dressing daily. Reapply silver dressing for next four days then discontinue Rafiq hose (compression stockings) for 6 weeks Physical therapy as prescribed May shower, no tub bath. Do not rub/scrub incision. Wash gently Take Aspirin 325mg 2x daily to prevent blood clots, coated or uncoated per patient preference. WHAT YOU SHOULD KNOW AFTER YOUR OPERATION: If you need pain pills, start before the pain becomes intense. Pain pills are frequently less upsetting to your stomach if you take them with food such as crackers or bread. If you have excessive or persistent pain, swelling, bleeding, nausea, vomiting or any other problems, you should first call your surgeon for advice. If you are unable to contact your surgeon, seek help from the emergency room. FOR THE PREVENTION OF DVT AFTER LOWER EXTREMITY SURGERY What is a DVT? There is always the risk of DVT after lower extremity surgery. DVT, or deep vein thrombosis, is a blood blot in a major vein that may partially or completely block the flow of blood. The clot occurs in the legs or pelvis, in areas where blood flow is slow, or in an injured blood vessel. DVT can be life-threatening should pieces of the clot break away and travel to the lungs. This is called pulmonary embolism What are the symptoms of DVT? The area affected by the blood clot may become swollen and painful, and possibly turn red as the normal flow of blood is blocked. You may also develop edema, which is the build up of fluid in the skin tissues surrounding the clot. If the clot is somewhere other than your leg, there may be no physical signs of DVT. If the clot breaks away and travels to your lungs, you may experience shortness of breath and chest pain. If this occurs you should call your doctor immediately or go to the emergency room. How can I prevent DVT? You should keep active. Moving the ankle and foot and bending the knee as tolerated when you are in bed and walking as tolerated. Take medication, especially the Aspirin, as prescribed by your doctor. What should I do if I think I have a DVT? You should call your doctor or go to the emergency room any time you have a sudden and unusual shortness of breath that is not related to exercise, exertion or anxiety. If you have swelling with redness and pain in your leg, you should call your doctor immediately. If there is concern then a test called ?Venous Doppler? can be done to rule of a DVT. #1 change dressing daily. You may shower starting 3 days after surgery. No scrubbing or rubbing incision during shower just let the water run over the incision #2 stop smoking and drinking alcohol #3 ice to operative knee 20 minutes every hour while awake until pain and swelling control. Keep head flat with knee straight and elevated above heart with a ramp of pillows until pain and swelling controlled #4 flex and extend both feet/ankles 10 times per hour while awake #5 push both knees backwards into the bed 10 times every hour while awake, clench buttock muscles together 10 times every hour while awake #6 use walker weight-bear as tolerated to operative knee. Get up every 2 hours while awake and walk around with walker for 1 to 2 minutes. #7 Flex and extend knee over the side of the bed 10?4 times a day #8 follow up in office with physician visual merchandising assistant Octavio Centeno as scheduled #9 [facility] will be contacting you within the next 24 hours to set up home therapy visits #11 You have been given a prescription for Percocet, Percocet is narcotic, narcotics are addictive. If you feel you have problems with addiction please feel free to contact Dr. Silva, your family physician, or proceed to the nearest hospital's emergency services department. Normal [facility] Patient Summaryon 05-27-2020 [place] [address] Patient Discharge Instructions Name: SANDRA TAVAREZ Lyndsay : 1940 Patient Address: [address] [place] [address] Primary Care Provider: Name: Robert Vail After you are discharged if you find you have any questions, please, call [phone] ext [phone] to speak to a nurse. Discharge Diagnosis: Acute pain of left knee Prescription Information: If you have been given a prescription for narcotics, seek immediate medical attention if you have any difficulty breathing or any sudden status changes such as confusion and sleepiness. If you or anyone you know is experiencing suicidal thoughts, mental health, alcohol and/or drug addiction problems; contact the [facility] 20/06 Crisis Hotline -Text 4HOPE to 274655. If you received any narcotics, sedation, or any other medication that causes drowsiness for the next 24 hours, unless otherwise directed: ? Do not drive a car. ? Do not operate machinery such as power tools, lawn mowers, drills, sewing machines, or stoves ? Avoid alcoholic beverages and drugs for allergies, nerves, or sleep ? Do not make important personal or business decisions or sign any legal documents [facility] would like to thank you for allowing us to assist you with your healthcare needs. The following includes patient education materials and information regarding your injury/illness. SANDRA TAVAREZ has been given the following list of follow-up instructions, prescriptions, and patient education materials: Follow-up Instructions With: Address: When: Robert Vail [address] [place] [id number] Business (1) With: Address: When: Tom Centeno [address] [place] [address], [facility] [address] [place], [place] [address] Business (1) 06/06/2020 1:00 PM Medications During the course of your visit, your medication list was updated with the most current information. The details of those changes are reflected below: New Medications Printed Prescriptions acetaminophen-oxycodo ne (Percocet 5/325 oral tablet) 1 tab(s) Oral every 6 hours as needed for pain for 7 Days. Refills: 0. Medications That Were Updated - Follow Below Instructions Other Medications Updated: warfarin (warfarin 2.5 mg oral tablet) 1 tab(s) Oral Every . Updated: warfarin (warfarin 5 mg oral tablet) 1 tab(s) Oral Tuesday, Tuesday, Tuesday, Tuesday, . Medications to Continue That Have Not Changed Other Medications atorvastatin (atorvastatin 20 mg oral tablet) 1 tab(s) Oral every day. furosemide (furosemide 20 mg oral tablet) 1 tab(s) Oral every day. levETIRAcetam (levETIRAcetam 500 mg oral tablet) 1 tab(s) Oral 2 times a day. losartan (losartan 50 mg oral tablet) 1 tab(s) Oral every day. multivitamin with iron (Poly Iron 150 Forte oral capsule) 1 tab(s) Oral every day. phenytoin (phenytoin 100 mg oral capsule, extended release) 2 cap(s) Oral every day. phenytoin (phenytoin 100 mg oral capsule, extended release) 2 cap(s) Oral At bedtime. potassium chloride (potassium chloride 10 mEq oral tablet, extended release) 1 tab(s) Oral every day. No Longer Take the Following Medications enoxaparin (Lovenox 100 mg/mL injectable solution) 40 Milligram Subcutaneous every 12 hours for 5 Days. It is important to always keep an active list of medications available so that you can share with other providers and manage your medications appropriately. As an additional courtesy, we are also providing you with your final active medications list that you can keep with you. acetaminophen-oxycodo ne (Percocet 5/325 oral tablet) 1 tab(s) Oral every 6 hours as needed for pain for 7 Days. Refills: 0. atorvastatin (atorvastatin 20 mg oral tablet) 1 tab(s) Oral every day. furosemide (furosemide 20 mg oral tablet) 1 tab(s) Oral every day. levETIRAcetam (levETIRAcetam 500 mg oral tablet) 1 tab(s) Oral 2 times a day. losartan (losartan 50 mg oral tablet) 1 tab(s) Oral every day. multivitamin with iron (Poly Iron 150 Forte oral capsule) 1 tab(s) Oral every day. phenytoin (phenytoin 100 mg oral capsule, extended release) 2 cap(s) Oral every day. phenytoin (phenytoin 100 mg oral capsule, extended release) 2 cap(s) Oral At bedtime. potassium chloride (potassium chloride 10 mEq oral tablet, extended release) 1 tab(s) Oral every day. warfarin (warfarin 2.5 mg oral tablet) 1 tab(s) Oral Every . warfarin (warfarin 5 mg oral tablet) 1 tab(s) Oral Tuesday, Tuesday, Tuesday, Tuesday, . Take only the medications listed above. Contact your doctor prior to taking any medications not on this list. Medication leaflets, if any, will display below Diet & Activity Patient Activity Level: As Tolerated Patient Diet: Patient Activity Restrictions: Patient education materials, if any, will display below POST OPERATIVE TOTAL KNEE/HIP DISCHARGE INTRUCTIONS SURGEONS WRITTEN INSTRUCTIONS: Walk with walker; bear weight to tolerance on operative extremity Elevate extremity 1 hour 3 times/day to control pain and swelling and apply cyrocuff Range of motion to ankle 10 times/hour Range of motion to knee hourly Change dressing daily. Reapply silver dressing for next four days then discontinue Rafiq hose (compression stockings) for 6 weeks Physical therapy as prescribed May shower, no tub bath. Do not rub/scrub incision. Wash gently Take Aspirin 325mg 2x daily to prevent blood clots, coated or uncoated per patient preference. WHAT YOU SHOULD KNOW AFTER YOUR OPERATION: If you need pain pills, start before the pain becomes intense. Pain pills are frequently less upsetting to your stomach if you take them with food such as crackers or bread. If you have excessive or persistent pain, swelling, bleeding, nausea, vomiting or any other problems, you should first call your surgeon for advice. If you are unable to contact your surgeon, seek help from the emergency room. FOR THE PREVENTION OF DVT AFTER LOWER EXTREMITY SURGERY What is a DVT? There is always the risk of DVT after lower extremity surgery. DVT, or deep vein thrombosis, is a blood blot in a major vein that may partially or completely block the flow of blood. The clot occurs in the legs or pelvis, in areas where blood flow is slow, or in an injured blood vessel. DVT can be life-threatening should pieces of the clot break away and travel to the lungs. This is called pulmonary embolism What are the symptoms of DVT? The area affected by the blood clot may become swollen and painful, and possibly turn red as the normal flow of blood is blocked. You may also develop edema, which is the build up of fluid in the skin tissues surrounding the clot. If the clot is somewhere other than your leg, there may be no physical signs of DVT. If the clot breaks away and travels to your lungs, you may experience shortness of breath and chest pain. If this occurs you should call your doctor immediately or go to the emergency room. How can I prevent DVT? You should keep active. Moving the ankle and foot and bending the knee as tolerated when you are in bed and walking as tolerated. Take medication, especially the Aspirin, as prescribed by your doctor. What should I do if I think I have a DVT? You should call your doctor or go to the emergency room any time you have a sudden and unusual shortness of breath that is not related to exercise, exertion or anxiety. If you have swelling with redness and pain in your leg, you should call your doctor immediately. If there is concern then a test called ?Venous Doppler? can be done to rule of a DVT. #1 change dressing daily. You may shower starting 3 days after surgery. No scrubbing or rubbing incision during shower just let the water run over the incision #2 stop smoking and drinking alcohol #3 ice to operative knee 20 minutes every hour while awake until pain and swelling control. Keep head flat with knee straight and elevated above heart with a ramp of pillows until pain and swelling controlled #4 flex and extend both feet/ankles 10 times per hour while awake #5 push both knees backwards into the bed 10 times every hour while awake, clench buttock muscles together 10 times every hour while awake #6 use walker weight-bear as tolerated to operative knee. Get up every 2 hours while awake and walk around with walker for 1 to 2 minutes. #7 Flex and extend knee over the side of the bed 10?4 times a day #8 follow up in office with physician visual merchandising assistant Octavio Centeno as scheduled #9 [facility] will be contacting you within the next 24 hours to set up home therapy visits #11 You have been given a prescription for Percocet, Percocet is narcotic, narcotics are addictive. If you feel you have problems with addiction please feel free to contact Dr. Silva, your family physician, or proceed to the nearest hospital's emergency services department. Viruses or Bacteria What?s got you sick? Antibiotics only treat bacterial infections. Viral illnesses cannot be treated with antibiotics. When an antibiotic is not prescribed, ask your healthcare professional for tips on how to relieve symptoms and feel better. Usual Cause Illness Viruses Bacteria Antibiotic Needed Cold/Runny Nose NO Bronchitis/Chest Cold (in otherwise healthy children and adults) NO Whooping Cough Yes Flu NO Strep Throat Yes Sore Throat (except strep) NO Fluid in the middle ear (otitis media with effusion) NO Urinary Tract Infection Yes Antibiotics Aren?t Always the Answer www.cdc.gov/getsmart GET SMART Know When Antibiotics Work U.S. Department of Health and Human Services Centers for Disease Control and Prevention July 2014 Normal [facility] POCT Glucose Levelon 020 Glucose [Mass/Vol] 125 mg/dL High 74-118 [facility] Comment on above: Performed By: #### 4 [id number] ####[facility] (DEFAULT)[address] [place] [address] PTon 05-27-2020 INR Coag (PPP) [Relative time] 2.29 {INR} High 0.91-1.11 [facility] Comment on above: Performed By: #### 1 [id number], [id number] #### [facility] (DEFAULT) [address] [place] [address] PT Coag (PPP) [Time] 22.2 second(s) High 9.7-11.8 [facility] Comment on above: Performed By: #### 1 [id number], [id number], [id number] #### [facility] (DEFAULT) [address] [place] [id number] Progress Note - Nurseon 04-30 Progress Note - Nurse Dressing change per Dr Moon. RAFIQ hose applied to both lower legs. Daughter here for transfer to the [facility]. Discharged to custodial per private vehicle with daughter. PT and OT assisted patient into car. [Electronically Signed on: 05/27/2020 18:20 EDT] Mayra Tafoya RN [Verified on: 05/27/2020 18:20 EDT] Mayra Tafoya RN Normal [facility] Progress Note-Physicianon Progress Note-Physician DATE OF ORTHOPEDIC PROGRESS NOTE: 05/27/2020 TIME: 2:00 pm The patient is up in her bedside chair. She is 4 days postop total left knee replacement. She states she still gets shortness of breath when she gets up and moves about but when she is at rest she does not have shortness of breath. She still has dizziness and light-headedness when she gets up but this was a condition she had prior to her admission and prior to her total knee replacement. She denies chest pain. She denies nausea or vomiting. She did have a bowel movement today and urinating without difficulty. Her pain level is mid-range. PHYSICAL EXAMINATION: VITAL SIGNS: Once again, are stable. LOWER EXTREMITIES: Today, we did change her dressing. The wound is clean, dry and intact. She still cannot do a straight leg raise. There is no sign of sepsis. A sterile dressing was re-applied. LABORATORY STUDIES: Her electrolytes are good. Her glucose is 120. BUN/creatinine ratio is 33. WBC count is 8.8, hemoglobin 9 and hematocrit 29.7. PT is 22.2 and INR is 2.29. PLAN: The patient will be going to [facility] today. CONDITION ON DISCHARGE: Stable. Tino Moon DO JOB #: [id number] [Electronically Signed on: 05/28/2020 10:10 EDT] TINO MOON DO [Verified on: 05/28/2020 10:10 EDT] TINO MOON DO [Transcribed on: 05/27/2020 14:44 EDT] [facility] Progress Note-Physician DATE OF POSTOPERATIVE ORTHOPEDIC PROGRESS NOTE: 05/26/2020 TIME: 2:15 pm The patient is in her bedside chair. She is in a reclined position with her feet up. She states that she is having some dizziness again and a little shortness of breath with activity. She denies chest pain. She denies dizziness or light-headedness. She is urinating without difficulty. She is passing flatus. PHYSICAL EXAMINATION: VITAL SIGNS: Stable. She has tachycardia. She had been running temperatures throughout last evening to this morning. The SpO2 is 95 on room air. LOWER EXTREMITIES: Her dressing was changed and her surgical wound looks excellent. She has moderate calf tenderness and a positive Tammy's sign. LABORATORY STUDIES: The CBC reveals the WBC count is 8.2, hemoglobin is 8.5 and hematocrit 28.5 and there is no left shift. She did receive a unit of blood yesterday. Her PT is 24.4 and INR is 2.54. RADIOLOGY: The patient did have a chest x-ray this morning and it did show what appeared to be fluid content in the lower lobes bilaterally. IMPRESSION: DAY #3 STATUS POST TOTAL LEFT KNEE. PLAN: 1. Because the patient is already on anticoagulation and also has an inferior vena cava filter, we chose not to do the Doppler ultrasound to rule out a deep venous thrombosis. 2. Because of the recent onset of increased fluid in the lungs, we are going to observe this patient for another 24 hours per the hospitalist. 3. We will repeat her H&H in the morning. PROGNOSIS: Fair. Tino Moon DO JOB #: [id number] [Electronically Signed on: 05/27/2020 12:30 EDT] TINO MOON DO [Verified on: 05/27/2020 12:30 EDT] TINO MOON DO [Transcribed on: 05/27/2020 10:45 EDT] GDU Normal [facility] .Auto Diff 1on 05-26-2020 Auto Harding % 16 % High 1-12 [facility] Comment on above: Performed By: #### 1 [id number], [id number] #### [facility] (DEFAULT) [address] [place] [address] Baso Abs# 0.0 x10 Normal 0.0-0.2 [facility] Comment on above: Performed By: #### 1 [id number], [id number], [id number] #### [facility] (DEFAULT) [address] [place] [address] Basophils/100 WBC (Bld) 0.2 % Normal 0.2-2.0 [facility] Comment on above: Performed By: #### 1 [id number], [id number], [id number] #### [facility] (DEFAULT) [address] [place] [address] Eos Abs# 0.0 x10 Normal 0.0-0.4 [facility] Comment on above: Performed By: #### 1 [id number], [id number], [id number] #### [facility] (DEFAULT) [address] [place] [address] Eosinophils/100 WBC (Bld) 0.5 % Low 0.9-4.0 [facility] Comment on above: Performed By: #### 1 [id number], [id number], [id number] #### [facility] (DEFAULT) [address] [place] [address] Lymphocytes (Bld) [#/Vol] 1.2 x10 Low 1.3-2.9 [facility] Comment on above: Performed By: #### 1 [id number], [id number], [id number] #### [facility] (DEFAULT) [address] [place] [address] Lymphocytes/100 WBC (Bld) 15 % Normal 14-48 [facility] Comment on above: Performed By: #### 1 [id number], [id number], [id number] #### [facility] (DEFAULT) [address] [place] [address] Harding Abs# 1.3 x10 High 0.0-0.8 [facility] Comment on above: Performed By: #### 1 [id number], [id number], [id number] #### [facility] (DEFAULT) [address] [place] [address] Neut Abs# 5.6 x10 Normal 1.5-9.2 [facility] Comment on above: Performed By: #### 1 [id number], [id number], [id number] #### [facility] (DEFAULT) [address] [place] [address] Neutrophils/100 WBC (Bld) 68 % Normal 44-88 [facility] Comment on above: Performed By: #### 1 [id number], [id number], [id number] #### [facility] (DEFAULT) [address] [place] [address] CBC w/ Auto Diffon 0 Erythrocyte distribution width (RBC) [Ratio] 17.9 % High 11.5-15.0 [facility] Comment on above: Performed By: #### 1 [id number], [id number], [id number] #### [facility] (DEFAULT) [address] [place] [address] Hematocrit (Bld) [Volume fraction] 28.5 % Low 33.7-40.4 [facility] Comment on above: Performed By: #### 1 [id number], [id number], [id number] #### [facility] (DEFAULT) [address] [place] [address] Hemoglobin (Bld) [Mass/Vol] 8.5 g/dL Low 11.3-15.9 [facility] Comment on above: Performed By: #### 1 [id number], [id number], [id number] #### [facility] (DEFAULT) [address] [place] [address] Man Diff? Auto Normal [facility] Comment on above: Performed By: #### 1 [id number], [id number], [id number] #### [facility] (DEFAULT) [address] [place] [address] MCH (RBC) [Entitic mass] 24 pg Normal 24-34 [facility] Comment on above: Performed By: #### 1 [id number], [id number], [id number] #### [facility] (DEFAULT) [address] [place] [address] MCHC (RBC) [Mass/Vol] 30 g/dL Normal 26-37 [facility] Comment on above: Performed By: #### 1 [id number], [id number], [id number] #### [facility] (DEFAULT) [address] [place] [address] MCV (RBC) [Entitic vol] 81 fL Normal 81-100 [facility] Comment on above: Performed By: #### 1 [id number], [id number], [id number] #### [facility] (DEFAULT) [address] [place] [address] Platelet mean volume (Bld) [Entitic vol] 10.5 fL High 6.3-10.2 [facility] Comment on above: Performed By: #### 1 [id number], [id number], [id number] #### [facility] (DEFAULT) [address] [place] [address] Platelets (Bld) [#/Vol] 178 x10 Normal 138-427 [facility] Comment on above: Performed By: #### 1 [id number], [id number], [id number] #### [facility] (DEFAULT) [address] [place] [address] RBC (Bld) [#/Vol] 3.50 x10 Low 3.70-5.30 [facility] Comment on above: Performed By: #### 1 [id number], [id number], [id number] #### [facility] (DEFAULT) [address] [place] [address] WBC (Bld) [#/Vol] 8.2 x10 [facility] Comment on above: Performed By: #### 1 [id number], [id number], [id number] #### [facility] (DEFAULT) [address] [place] [address] Extra Greenon 05-26-2020 Tube Collected Yes [facility] Comment on above: Performed By: #### 1 [id number], [id number], [id number] #### [facility] (DEFAULT) [address] [place] [address] History and Physicalon 05-26 History and Physical [id number] #[id number] Normal [facility] Nutrition Noteon 05-26-2020 Nutrition Note Per intake records, Pt avg 50% of past 6 meals with inconsistent supplement intake avg 1X/d. Last BM on 05/23, will offer prune juice. Post op anemia noted; per ortho 1unit PRBC given. CXR obtained for fever, dyspnea which was wnl. Possible discharge later today. Will continue to monitor. Normal [facility] PTon 05-26-2020 INR Coag (PPP) [Relative time] 2.54 {INR} High 0.91-1.11 [facility] Comment on above: Performed By: #### 1 [id number], [id number], [id number] #### [facility] (DEFAULT) [address] [place] [address] PT Coag (PPP) [Time] 24.4 second(s) High 9.7-11.8 [facility] Comment on above: Performed By: #### 1 [id number], [id number], [id number] #### [facility] (DEFAULT) [address] [place] [address] Progress Note-Physicianon Progress Note-Physician DATE OF ORTHOPEDIC POSTOPERATIVE PROGRESS NOTE: 05/25/2020 TIME: 11:14 am The patient is up in her bedside chair. She is awake, alert and oriented. She feels somewhat tired. She states she gets light-headed and dizziness if she gets up and moves with physical therapy. She got up and was able to go to the bathroom and walked just to the door in her room. She denies chest pain but does get a little shortness of breath with exertion. She denies nausea or vomiting. She is urinating without difficulty. She is passing flatus but no bowel movement. Her pain level is approximately a 6 or 7 with movement. PHYSICAL EXAMINATION: VITAL SIGNS: She is still tachycardic. Blood pressure is 104/67, SpO2 is 92 on room air. LOWER EXTREMITIES: Examination of the left lower extremity reveals she has good motion to her foot and ankle. She does have some moderate calf tenderness but Tammy's sign is negative. Her dressing was changed today. The wound appears to be clean and dry. The dressing was changed yesterday and it was fairly blood soaked. The incision is non-erythematous. There is no sign of sepsis. There is no significant swelling about the knee. Today, a sterile dressing was reapplied. LABORATORY STUDIES: Her WBC count is 6.8. Electrolytes are within normal limits. Hemoglobin is 8.1 down from 10.1 on 05/23/2020. The hematocrit is 2 7.4 with no left shift. PT is 18.6 and INR is 1.89. IMPRESSION: 1. DAY #2 STATUS TOTAL LEFT ARTHROPLASTY. 2. POST SURGICAL ANEMIA. PLAN: 1. I feel that her tachycardia and possible light-headedness and dizziness on motion is hemodynamically related. The hospitalist is recommending transfusion of one unit followed by Joanna and I agree with that decision. 2. We will watch the patient for another 24-hours. 3. We will repeat her lab work tomorrow. 4. Her PT and INR are coming up satisfactorily and hopefully we will be able to switch her back onto the Coumadin tomorrow. PROGNOSIS: Overall is good. Tino NicknehalDO JOB #: [id number] [Electronically Signed on: 05/26/2020 13:12 EDT] NICKTINO Strauss [Verified on: 05/26/2020 13:12 EDT] NICKJV StraussErica SIERRA [Transcribed on: 05/26/2020 10:28 EDT] [facility] XR Chest 1 View Frontalon XR Chest 1 View Frontal EXAM: XR Chest 1 View Frontal HISTORY: Fever. COMPARISON: None. TECHNIQUE: AP view of the chest was obtained with portable technique at 1153 hours. FINDINGS: Heart is mildly enlarged. No acute infiltrate or consolidations are seen. There is a moderate size hiatal hernia when correlated with the CT exam. A few linear densities are noted in the lower lung cruz compatible with atelectatic and/or fibrotic changes. IMPRESSION: Mild cardiomegaly. Mild atelectatic and/or fibrotic changes in the lower lung cruz. No acute infiltrate or consolidation. Moderate size hiatal hernia, this was noted previously. Final Dictated by: Jesus Green MD Dictated DT/TM: 05/26/20 2:08 Signed (Electronic Signature): Jesus Green MD 05/26/20 3:37 pm Technologist: AUGUSTO LEE [facility] .Auto Diff 1on 05-25-2020 Auto Harding % 17 % High 12 [facility] Comment on above: Performed By: #### 1 [id number], [id number], [id number] #### [facility] (DEFAULT) [address] [place] [address] Baso Abs# 0.0 x10 Normal 0.0-0.2 [facility] Comment on above: Performed By: #### 1 [id number], [id number], [id number] #### [facility] (DEFAULT) [address] [place] [address] Basophils/100 WBC (Bld) 0.3 % Normal 0.2-2.0 [facility] Comment on above: Performed By: #### 1 [id number], [id number], [id number] #### [facility] (DEFAULT) [address] [place] [address] Eos Abs# 0.0 x10 Normal 0.0-0.4 [facility] Comment on above: Performed By: #### 1 [id number], [id number], [id number] #### [facility] (DEFAULT) [address] [place] [address] Eosinophils/100 WBC (Bld) 0.1 % Low 0.9-4.0 [facility] Comment on above: Performed By: #### 1 [id number], [id number], [id number] #### [facility] (DEFAULT) [address] [place] [address] Lymphocytes (Bld) [#/Vol] 0.8 x10 Low 1.3-2.9 [facility] Comment on above: Performed By: #### 1 [id number], [id number], [id number] #### [facility] (DEFAULT) [address] [place] [address] 65059 Lymphocytes/100 WBC (Bld) 11 % Low 14-48 [facility] Comment on above: Performed By: #### 1 [id number], [id number], [id number] #### [facility] (DEFAULT) [address] [place] [address] 28588 Harding Abs# 1.1 x10 High 0.0-0.8 [facility] Comment on above: Performed By: #### 1 [id number], [id number], [id number] #### [facility] (DEFAULT) [address] [place] [address] Neut Abs# 4.8 x10 Normal 1.5-9.2 [facility] Comment on above: Performed By: #### 1 [id number], [id number], [id number] #### [facility] (DEFAULT) [address] [place] [address] Neutrophils/100 WBC (Bld) 72 % Normal 44-88 [facility] Comment on above: Performed By: #### 1 [id number], [id number], [id number] #### [facility] (DEFAULT) [address] [place] [address] CBC w/ Auto Diffon 0 Erythrocyte distribution width (RBC) [Ratio] 17.6 % High 11.5-15.0 [facility] Comment on above: Performed By: #### 1 [id number], [id number], [id number] #### [facility] (DEFAULT) [address] [place] [address] Hematocrit (Bld) [Volume fraction] 27.4 % Low 33.7-40.4 [facility] Comment on above: Performed By: #### 1 [id number], [id number], [id number] #### [facility] (DEFAULT) [address] [place] [address] Hemoglobin (Bld) [Mass/Vol] 8.1 g/dL Low 11.3-15.9 [facility] Comment on above: Performed By: #### 1 [id number], [id number], [id number] #### [facility] (DEFAULT) [address] [place] [address] Man Diff? Auto Normal [facility] Comment on above: Performed By: #### 1 [id number], [id number], [id number] #### [facility] (DEFAULT) [address] [place] [address] MCH (RBC) [Entitic mass] 24 pg Normal 24-34 [facility] Comment on above: Performed By: #### 1 [id number], [id number], [id number] #### [facility] (DEFAULT) [address] [place] [address] 66497 MCHC (RBC) [Mass/Vol] 30 g/dL Normal 26-37 [facility] Comment on above: Performed By: #### 1 [id number], [id number], [id number] #### [facility] (DEFAULT) [address] [place] [address] MCV (RBC) [Entitic vol] 80 fL Low 81-100 [facility] Comment on above: Performed By: #### 1 [id number], [id number], [id number] #### [facility] (DEFAULT) [address] [place] [address] Platelet mean volume (Bld) [Entitic vol] 10.8 fL High 6.3-10.2 [facility] Comment on above: Performed By: #### 1 [id number], [id number], [id number] #### [facility] (DEFAULT) [address] [place] [address] Platelets (Bld) [#/Vol] 186 x10 Normal 138-427 [facility] Comment on above: Performed By: #### 1 [id number], [id number], [id number] #### [facility] (DEFAULT) [address] [place] [address] 50672 RBC (Bld) [#/Vol] 3.42 x10 Low 3.70-5.30 [facility] Comment on above: Performed By: #### 1 [id number], [id number], [id number] #### [facility] (DEFAULT) [address] [place] [address] 87788 WBC (Bld) [#/Vol] 6.8 x10 Normal 3.5-10.5 [facility] Comment on above: Performed By: #### 1 [id number], 74573078, [id number] #### [facility] (DEFAULT) [address] [place] [address] Electrolyte Panel Standardon 05-25-2020 Anion gap [Moles/Vol] 12.0 mmol/L Normal 5.0-19.0 [facility] Comment on above: Performed By: #### 1 [id number], [id number], [id number] #### [facility] (DEFAULT) [address] [place] [address] 83708 Chloride [Moles/Vol] 102 mmol/L Normal 101-111 [facility] Comment on above: Performed By: #### 1 [id number], 52980605, 0807371 #### [facility] (DEFAULT) [address] [place] [address] 35156 CO2 [Moles/Vol] 28 mmol/L Normal 21-32 [facility] Comment on above: Performed By: #### 1 [id number], 02943726, 0766055 #### [facility] (DEFAULT) [address] [place] [address] 98205 Potassium [Moles/Vol] 4.0 mmol/L Normal 3.6-5.1 [facility] Comment on above: Performed By: #### 1 [id number], 42665862, 3539053 #### [facility] (DEFAULT) [address] [place] [address] 04318 Sodium [Moles/Vol] 138.0 mmol/L Normal 136.0-144.0 [facility] Comment on above: Performed By: #### 1 [id number], 83959872, [id number] #### [facility] (DEFAULT) [address] [place] [address] 60863 PTon 05-25-2020 INR Coag (PPP) [Relative time] 1.89 {INR} High 0.91-1.11 [facility] Comment on above: Performed By: #### 1 [id number], [id number], 1454581 #### [facility] (DEFAULT) [address] [place] [address] 03225 PT Coag (PPP) [Time] 18.6 second(s) High 9.7-11.8 [facility] Comment on above: Performed By: #### 1 [id number], 08535520, 4600971 #### [facility] (DEFAULT) [address] [place] [address] 58506 Progress Note - Nurseon 04-29 Progress Note - Nurse pt requiring three assist to get back to bed. appears hesitant and scared with movement. states the oxy has been helping her pain today butlacking confidence with her mobility. educated importance of kicking leg out as instructed by PT. positioned and will give pain meds to keep comfortable [Electronically Signed on: 05/25/2020 18:51 EDT] Jessica Abernathy RN [Verified on: 05/25/2020 18:51 EDT] Jessica Abernathy RN [facility] Progress Note - Nurse Unable to get mask to fit correctly so placed on 2 L overnight. [Electronically Signed on: 05/25/2020 01:45 EDT] Lyndsay Lou RN [Verified on: 05/25/2020 01:45 EDT] Lyndsay Lou RN [facility] Progress Note - Nurse Pt asleep with cpap mask off, woke her to put it back on. [Electronically Signed on: 05/25/2020 01:33 EDT] Lyndsay Lou RN [Verified on: 05/25/2020 01:33 EDT] Lyndsay Lou RN [facility] Progress Note - Nurse Pt up to bedside commode with 2 assist and walker, transfers very poorly and reports alot of knee pain. [Electronically Signed on: 05/25/2020 00:22 EDT] Lyndsay Lou RN [Verified on: 05/25/2020 00:22 EDT] Lyndsay Lou RN Normal [facility] RBC.on 05-25-2020 RBC (Bld) [#/Vol] # of Units: 1 RBC Indication: Post-Op Bleed Additional Units?: No Date Needed: 05/25/2002 Red Cell Status: RBC Ready Normal [facility] Comment on above: Performed By: #### 1 [id number], [id number], [id number] #### [facility] (DEFAULT) [address] [place] [address] .Auto Diff 1on 05-24-2020 Auto Harding % 9 % Normal 1-12 [facility] Comment on above: Performed By: #### 1 [id number], [id number], 0370396 #### [facility] (DEFAULT) [address] [place] [address] Baso Abs# 0.0 x10 Normal 0.0-0.2 [facility] Comment on above: Performed By: #### 1 [id number], 59376110, 8297706 #### [facility] (DEFAULT) [address] [place] [address] Basophils/100 WBC (Bld) 0.2 % Normal 0.2-2.0 [facility] Comment on above: Performed By: #### 1 [id number], 61088085, [id number] #### [facility] (DEFAULT) [address] [place] [address] Eos Abs# 0.0 x10 Normal 0.0-0.4 [facility] Comment on above: Performed By: #### 1 [id number], 97823091, 5737913 #### [facility] (DEFAULT) [address] [place] [address] 20463 Eosinophils/100 WBC (Bld) 0.0 % Low 0.9-4.0 [facility] Comment on above: Performed By: #### 1 [id number], 17523419, 1090756 #### [facility] (DEFAULT) [address] [place] [address] Lymphocytes (Bld) [#/Vol] 0.7 x10 Low 1.3-2.9 [facility] Comment on above: Performed By: #### 1 [id number], 91639395, 7457633 #### [facility] (DEFAULT) [address] [place] [address] Lymphocytes/100 WBC (Bld) 6 % Low 14-48 [facility] Comment on above: Performed By: #### 1 [id number], 63692462, 2890197 #### [facility] (DEFAULT) [address] [place] [address] Harding Abs# 0.9 x10 High 0.0-0.8 [facility] Comment on above: Performed By: #### 1 [id number], 63546301, 7418475 #### [facility] (DEFAULT) [address] [place] [address] Neut Abs# 8.7 x10 Normal 1.5-9.2 [facility] Comment on above: Performed By: #### 1 [id number], 55066142, [id number] #### [facility] (DEFAULT) [address] [place] [address] Neutrophils/100 WBC (Bld) 84 % Normal 44-88 [facility] Comment on above: Performed By: #### 1 [id number], 13508590, 9968871 #### [facility] (DEFAULT) [address] [place] [address] BMP Standardon 05-24-2020 eGFR Non AA >60 [facility] Comment on above: Performed By: #### 1 [id number], 32492478, 0957698 #### [facility] (DEFAULT) [address] [place] [address] 32785 eGFR AA >60 [facility] Comment on above: Result Comment: Cleat Blanker ghazal Kidney disease could be indicated at eGFRs of less than 60 ml/min/1.73m2. Kidney Failure is indicated at less than 15 ml/min/1.73m2 Performed By: #### 1 [id number], 47558504, 6254788 #### [facility] (DEFAULT) [address] [place] [address] 58595 Anion gap [Moles/Vol] 13.0 mmol/L Normal 5.0-19.0 [facility] Comment on above: Performed By: #### 1 [id number], [id number], 7407629 #### [facility] (DEFAULT) [address] [place] [address] 56283 Calcium [Mass/Vol] 8.5 mg/dL Low 8.9-10.3 [facility] Comment on above: Performed By: #### 1 [id number], 77477324, 1836070 #### [facility] (DEFAULT) [address] [place] [address] 28207 Chloride [Moles/Vol] 102 mmol/L Normal 101-111 [facility] Comment on above: Performed By: #### 1 [id number], 42747428, 5842698 #### [facility] (DEFAULT) [address] [place] [address] 44578 CO2 [Moles/Vol] 27 mmol/L Normal 21-32 [facility] Comment on above: Performed By: #### 1 [id number], 59921257, 4609506 #### [facility] (DEFAULT) [address] [place] [address] 38306 Creatinine [Mass/Vol] 0.57 mg/dL Low 0.60-1.30 [facility] Comment on above: Performed By: #### 1 [id number], 09204935, 8898912 #### [facility] (DEFAULT) [address] [place] [address] 89640 Glucose [Mass/Vol] 134.0 mg/dL High 74.0-118.0 [facility] Comment on above: Performed By: #### 1 [id number], 14722355, 4445837 #### [facility] (DEFAULT) [address] [place] [address] Osmolality [Osmolality] 280 mOsm/L [facility] Comment on above: Performed By: #### 1 [id number], 39426023, 7268157 #### [facility] (DEFAULT) [address] [place] [address] 63931 Potassium [Moles/Vol] 4.4 mmol/L Normal 3.6-5.1 [facility] Comment on above: Performed By: #### 1 [id number], 94667872, 0269209 #### [facility] (DEFAULT) [address] [place] [address] Sodium [Moles/Vol] 138.0 mmol/L Normal 136.0-144.0 [facility] Comment on above: Performed By: #### 1 [id number], 76139904, 0963879 #### [facility] (DEFAULT) [address] [place] [address] Urea nitrogen [Mass/Vol] 19 mg/dL Normal 8-26 [facility] Comment on above: Performed By: #### 1 [id number], 19078474, 4257883 #### [facility] (DEFAULT) [address] [place] [address] Urea nitrogen/Creatinine [Mass ratio] 33.0 mg/mg High 4.6-16.2 [facility] Comment on above: Performed By: #### 1 [id number], 14551022, 3664409 #### [facility] (DEFAULT) [address] [place] [address] 43420 CBC w/ Auto Diffon 0 Erythrocyte distribution width (RBC) [Ratio] 17.4 % High 11.5-15.0 [facility] Comment on above: Performed By: #### 7 [id number], [id number], [id number] #### [facility] (DEFAULT) [address] [place] [address] Hematocrit (Bld) [Volume fraction] 29.3 % Low 33.7-40.4 [facility] Comment on above: Performed By: #### 7 [id number], 68934454, [id number] #### [facility] (DEFAULT) [address] [place] [address] 96027 Hemoglobin (Bld) [Mass/Vol] 8.7 g/dL Low 11.3-15.9 [facility] Comment on above: Performed By: #### 7 [id number], [id number], [id number] #### [facility] (DEFAULT) [address] [place] [address] 48815 Man Diff? Auto Normal [facility] Comment on above: Performed By: #### 7 [id number], 16902909, [id number] #### [facility] (DEFAULT) [address] [place] [address] 19788 MCH (RBC) [Entitic mass] 24 pg Normal 24-34 [facility] Comment on above: Performed By: #### 7 [id number], 64404215, [id number] #### [facility] (DEFAULT) [address] [place] [address] 80159 MCHC (RBC) [Mass/Vol] 30 g/dL Normal 26-37 [facility] Comment on above: Performed By: #### 7 [id number], 95373795, [id number] #### [facility] (DEFAULT) [address] [place] [address] 82031 MCV (RBC) [Entitic vol] 81 fL Normal 81-100 [facility] Comment on above: Performed By: #### 7 [id number], 55756869, [id number] #### [facility] (DEFAULT) [address] [place] [address] 04211 Platelet mean volume (Bld) [Entitic vol] 10.6 fL High 6.3-10.2 [facility] Comment on above: Performed By: #### 7 [id number], 42681293, [id number] #### [facility] (DEFAULT) [address] [place] [address] 80341 Platelets (Bld) [#/Vol] 211 x10 Normal 138-427 [facility] Comment on above: Performed By: #### 7 [id number], 42746849, [id number] #### [facility] (DEFAULT) [address] [place] [address] RBC (Bld) [#/Vol] 3.63 x10 Low 3.70-5.30 [facility] Comment on above: Performed By: #### 7 [id number], 10577465, [id number] #### [facility] (DEFAULT) [address] [place] [address] WBC (Bld) [#/Vol] 10.4 x10 Normal 3.5-10.5 [facility] Comment on above: Performed By: #### 7 [id number], 43783970, [id number] #### [facility] (DEFAULT) [address] [place] [address] Nutrition Noteon 05-24-2020 Nutrition Note Diet ordered as 3000kcal, DM w/ Boost Glucose Control BID. Diet adjusted to 2gr Na to reflect Pts home diet and supplement changed to Ensure Compact BID which is available in house. Pt does not have DM. Will continue to monitor. Normal [facility] PTon 05-24-2020 INR Coag (PPP) [Relative time] 1.21 {INR} High 0.91-1.11 [facility] Comment on above: Performed By: #### 1 [id number], [id number], [id number] #### [facility] (DEFAULT) [address] [place] [address] PT Coag (PPP) [Time] 12.3 second(s) High 9.7-11.8 [facility] Comment on above: Performed By: #### 1 [id number], [id number], 3456452 #### [facility] (DEFAULT) [address] [place] [address] Pharmacy Noteon 05-24-2020 Pharmacy Note I have personally reviewed the patient's current home medication list including, prescription medications, OTC products, vitamins and supplements. Home medications reviewed upon admission as follows: Active Medications acetaminophen-oxycodo ne: 1 tab(s), PO, q6hr (int), for 7 day(s), PRN: for pain, 28 tab(s), 0 Refill(s), Refills: 0 atorvastatin: 20 mg = 1 tab(s), PO, Daily, 30 tab(s), 0 Refill(s), Refills: 0 enoxaparin: 40 mg, SubQ, q12hr (int), for 5 day(s), 10 EA, 0 Refill(s), Refills: 0 furosemide: 20 mg = 1 tab(s), PO, Daily, 30 tab(s), 0 Refill(s), Refills: 0 levETIRAcetam: 500 mg = 1 tab(s), PO, BID, 0 Refill(s), Refills: 0 losartan: 50 mg = 1 tab(s), PO, Daily, 30 tab(s), 0 Refill(s), Refills: 0 multivitamin with iron: 1 tab(s), PO, Daily, 0 Refill(s), Refills: 0 phenytoin: 200 mg = 2 cap(s), PO, Daily, 270 cap(s), 0 Refill(s), Refills: 0 phenytoin: 200 mg = 2 cap(s), PO, HS, 270 cap(s), 0 Refill(s), Refills: 0 potassium chloride: 10 mEq = 1 tab(s), PO, Daily, 0 Refill(s), Refills: 0 warfarin: 5 mg = 1 tab(s), PO, SuMTuWFSa, 30 tab(s), 0 Refill(s), Refills: 0 warfarin: 2.5 mg = 1 tab(s), PO, qThursday, 30 tab(s), 0 Refill(s), Refills: 0 Status of medication History: Complete Source of information: Pharmacy Records Changes Made: - Medications Added to List: - Medications Held at Admission: warfarin but restarted later - Medications Modified:phenytoin 200 mg bid on external history and 100 mg bid on initial orders. Corrected warfarin to include Tuesday Dose. Post op patient is currently receiving home doses. - Medications Removed from List: state reason (i.e. no longer taking, strength change, etc) Other Comments: [Electronically Signed on: 05/24/2020 16:28 EDT] Kellee Molina [Verified on: 05/24/2020 16:28 EDT] Kellee Molina [facility] Progress Note - Nurseon 04-29 Progress Note - Nurse pts pain becming worse. giving 10mg oxy po every four hours, polar care in place and dr epperson notified of pain not controlled. will administer po gabepentin per order. will continue to monitor [Electronically Signed on: 05/24/2020 17:20 EDT] Jessica Abernathy RN [Verified on: 05/24/2020 17:20 EDT] Jessica Abernathy RN [facility] Progress Note - Nurse pt requires assistance getting in and out of bed. still a little stiff from surgery but does ok once up w the walker. pain so far has been controlled w 10 mg po oxy. [Electronically Signed on: 05/24/2020 10:54 EDT] Jessica Abernathy RN [Verified on: 05/24/2020 10:54 EDT] Jessica Abernathy RN [facility] ABORhon 05-23-2020 ABO and Rh group Nom (Bld) Hx Check: Not Found Anti-A: 4+ Anti-B: 0 Anti-D: 4+ DCon: NT A1: mf+ B: 4+ ABORh Interp: A POS [facility] Comment on above: Performed By: #### 7 [id number], [id number], [id number] #### [facility] (DEFAULT) [address] [place] [address] ABORh Retypeon 05-23-2020 ABO and Rh group Nom (Bld) Ordered by Discern. Anti-A: 4+ Anti-B: 0 Anti-D: 4+ DCon: NT A1: mf+ B: 4+ ABORh Retype: A POS [facility] Comment on above: Performed By: #### 7 [id number], [id number], [id number] #### [facility] (DEFAULT) [address] [place] [address] ABSC Gelon 05-23-2020 ABSC Gel Negative Normal [facility] Comment on above: Performed By: #### 7 [id number], [id number], [id number] #### [facility] (DEFAULT) [address] [place] [address] Anesthesia Noteon 05-23-2020 Anesthesia Note Patient: KEY TAVAREZ Age: 79 years Sex: FEMALE : 1940 Associated Diagnoses: None Author: Maico Sandhu DO Preoperative Information Anesthesia history: Patient history: No difficult intubation, No malignant hyperthermia. Family history: No malignant hyperthermia, No prior anesthesia problems. Review of Systems Constitutional: Negative. Eye Ear/Nose/Mouth/Throat Respiratory: No shortness of breath, No cough. Cardiovascular: No chest pain. Gastrointestinal: No heartburn. Endocrine: Negative. Musculoskeletal: Joint pain. Neurologic: Alert and oriented X4. Health Status Allergies: Allergic Reactions (All) Severity Not Documented Amoxicillin- No reactions were documented. CeleBREX- No reactions were documented. Penicillin- No reactions were documented. Current medications: Home Medications (12) Active atorvastatin 20 mg oral tablet 20 mg = 1 tab(s), PO, Daily furosemide 20 mg oral tablet 20 mg = 1 tab(s), PO, Daily levETIRAcetam 500 mg oral tablet 500 mg = 1 tab(s), PO, BID losartan 50 mg oral tablet 50 mg = 1 tab(s), PO, Daily Lovenox 100 mg/mL injectable solution 40 mg, SubQ, q12hr (int) Percocet 5/325 oral tablet 1 tab(s), PRN, PO, q6hr (int) phenytoin 100 mg oral capsule, extended release 200 mg = 2 cap(s), PO, Daily phenytoin 100 mg oral capsule, extended release 200 mg = 2 cap(s), PO, HS Poly Iron 150 Forte oral capsule 1 tab(s), PO, Daily potassium chloride 10 mEq oral tablet, extended release 10 mEq = 1 tab(s), PO, Daily warfarin 2.5 mg oral tablet 2.5 mg = 1 tab(s), PO, qThursday warfarin 5 mg oral tablet 5 mg = 1 tab(s), PO, SuMTuWF Problem list (past medical history): All Problems Anemia / SNOMED CT 687302179 / Confirmed At risk of pressure sore / SNOMED CT 895233835 / Confirmed Cardiomyopathy / SNOMED CT 230438847 / Confirmed DVT (deep venous thrombosis) / SNOMED CT 119946475 / Confirmed GERD (gastroesophageal reflux disease) / SNOMED CT 474864094 / Confirmed Hyperlipidemia / SNOMED CT 90908480 / Confirmed Hypertension / SNOMED CT 6892587435 / Confirmed Lumbar spondylosis / SNOMED CT 242294151 / Confirmed Mass / SNOMED CT 042652904 / Confirmed KERMIT (obstructive sleep apnea) / SNOMED CT 607543702 / Confirmed Pulmonary hypertension / SNOMED CT 958357048 / Confirmed Seizure / SNOMED CT 173732135 / Confirmed Venous insufficiency / SNOMED CT 996352906 / Confirmed Resolved: Adrenal adenoma / SNOMED CT 866779723 Resolved: Pulmonary emboli / SNOMED CT 51313047 Histories Family History: Diabetes mellitus Sister Heart attack Father Leukemia Father Stroke.... Mother Procedure history: Cholecystectomy (35687425). Colectomy (36080263). Colonoscopy (029796336). Jaspreet filter (878000352). Femur fracture, right (69649645). Shoulder (84014548). Comments: 02/08/2020 9:57 Stacy Reynolds RN torn rotator cuff 02/08/2020 7:28 EDT - Halblaub, Sidsel RN arthroplasty Knee arthroplasty (329525315). Craniotomy (45955390). Laminectomy (9101338183). Comments: 02/08/2020 7:30 EDT - Stacy Pena RN foraminotomy, facetectomy with decompression and fusion Cataract (866926988). Social History Electronic Cigarette/Vaping Assessment Electronic Cigarette Use: Never. Alcohol Assessment Use: Never. Tobacco Assessment Former smoker, quit more than 30 days ago Tobacco Use:. Substance Abuse Assessment Substance use: Never. . Social & Psychosocial Habits Alcohol 02/08/2020 Alcohol Use: Never Substance Abuse 02/08/2020 Substance use: Never Tobacco 02/08/2020 Smoking tobacco use: Former smoker, quit more Electronic Cigarette/Vaping 02/08/2020 Electronic Cigarette Use: Never . Physical Examination VS/Measurements Measurements from flowsheet : Measurements 05/23/2020 11:00 EDT Height 152.4 cm Weight 119.9 kg Weight Measured (lbs) 263.78 lb , Vital Signs (last 24 hrs) Last Charted Temp Tympanic L 36.4DegC (MAY 23 10:00) Heart Rate Peripheral 66 bpm (MAY 23:) Resp Rate 16 br/min (MAY 23:) SBP H 147mmHg (MAY 23:) DBP L 58mmHg (MAY 23:) SpO2 100 % (MAY 23:) Weight 119.9 kg (MAY 23 11:00) General: Alert and oriented, No acute distress. Airway: Mallampati classification: II (soft palate, fauces, uvula visible). Temporomandibular joint mobility: Good. Mouth: Dentures ( Upper and lower dentures ). Neck: Full range of motion. Respiratory: Lungs are clear to auscultation. Cardiovascular: Normal rate, Regular rhythm. Neurologic: Alert, Oriented. Review / Management Laboratory Results Plan [employer]#( A) physical status classification: Class III. Anesthetic Preoperative Plan Anesthesia: General. , Regional Left Adductor Canal Block. Anesthetic plan, risks, benefits, and alternatives discussed with the patient and/or family. Risks discussed: nausea, vomiting, sore throat, serious complications. Patient verbalized understanding. Informed consent was given. Consent was signed by the patient. [Electronically Signed on: 05/23/2020 13:34 EDT] Macio Sandhu DO [Verified on: 05/23/2020 13:34 EDT] PhoebeMaico DO Normal [facility] Blood Bank IDon 05-23-2020 Blood Bank ID BBID: [id number] [facility] Comment on above: Performed By: #### 7 [id number] #### [facility] (DEFAULT) [address] [place] [address] Extra [place] 05-23-2020 Tube Collected Yes [facility] Comment on above: Performed By: #### 7 [id number] #### [facility] (DEFAULT) [address] [place] [address] Tube Collected Yes [facility] Comment on above: Performed By: #### 7 [id number], [id number] #### [facility] (DEFAULT) [address] [place] [id number] [place] 05-23-2020 Hemoglobin (Bld) [Mass/Vol] 10.1 g/dL Low 11.3-15.9 [facility] Comment on above: Performed By: #### 7 [id number] #### [facility] (DEFAULT) [address] [place] [address] MAGR Intraoperative Recordon 05-23-2020 MAGR Intraoperative Record MAGR Intra-Op Record Summary Primary Physician: FERNANDO SILVA Finalized Date/Time: 05/23/20 16:19:21 Pt. Name: SANDRA TAVAREZ/Sex: 1940 FEMALE Med Rec #: [id number] Physician: FERNANDO SILVA Financial #: [id number] Pt. Type: I Room/Bed: Formerly [facility]/ Admit/Disch: 05/23/20 09:44:18 - Institution: Case Times MAGR Entry 1 Patient In Room Time 05/23/20 13:19:00 Out Room Time 05/23/20 16:17:00 Anesthesia Start Time 05/23/20 13:19:00 Stop Time 05/23/20 16:15:00 Surgery Start Time 05/23/20 14:00:00 Stop Time 05/23/20 16:00:00 Last Modified By: Shanique Brown RN 05/23/20 16:18:55 Case Attendance MAGR Entry 1 Entry 2 Entry 3 Case Attendee FERNANDO SILVA David DO Long, Barbara RN Role Performed Surgeon - Primary Anesthesiologist of Estimating Engineer Record Time In 05/23/20 13:19:00 05/23/20 13:19:00 05/23/20 13:19:00 Time Out 05/23/20 16:17:00 05/23/20 16:17:00 05/23/20 15:52:00 Procedure Arthroplasty Knee Arthroplasty Knee Arthroplasty Knee Total(Left) Total(Left) Total(Left) Last Modified By: Shanique Brown RN, Barbara RN Long, Barbara RN 05/23/20 16:19:02 05/23/20 16:19:02 05/23/20 16:19:02 Entry 4 Entry 5 Entry 6 Case Attendee Thomas ANN, Sridhar Vallejo Jennifer RN Regina PIPE PROCESSOR Role Performed Scrub Personnel Ultrasonic Cleaner Ultrasonic Cleaner Time In 05/23/20 13:19:00 05/23/20 13:19:00 05/23/20 13:19:00 Time Out 05/23/20 16:17:00 05/23/20 16:17:00 05/23/20 16:17:00 Procedure Arthroplasty Knee Arthroplasty Knee Arthroplasty Knee Total(Left) Total(Left) Total(Left) Last Modified By: Shanique Brown RN, Barbara RN Long, Barbara RN 05/23/20 16:19:02 05/23/20 16:19:02 05/23/20 16:19:02 General Comments: Jae tyler rep Surgical Procedures MAGR Pre-Care Text: A.20 Verifies operative procedure, surgical site, and laterality Im.150 Develops individualized plan of care Entry 1 Procedure Arthroplasty Knee Total Primary Procedure Yes Primary Surgeon FERNANDO SILVA Left Surgeon Comment LEFT TOTAL KNEE Start 05/23/20 14:00:00 Stop 05/23/20 16:00:00 Anesthesia Type General Surgical Service Orthopedics Wound Class Clean Technique Details Closure Technique Primary Entire procedure No was performed via laparoscope or robotic assistance Last Modified By: Shanique Brown RN 05/23/20 16:18:57 Post-Care Text: O.730 The patient's care is consistent with the individualized perioperative plan of care General Case Data MAGR Pre-Care Text: A.350.1 Classifies surgical wound Entry 1 Case Information OR MAGR OR 01 Case Level Level 5 Wound Class Clean Specialty Orthopedics ASA Class 3 Diagnosis Preop Diagnosis DJD LEFT KNEE Postop Same As Preop Yes Postop Diagnosis DJD LEFT KNEE Blunt or No Is the procedure No penetrating injury considered occured prior to Emergent/Urgent? the start of the procedure: Last Modified By: Shanique Brown RN 05/23/20 14:06:20 Post-Care Text: O.760 Patient receives consistent and comparable care regardless of the setting Time Out MAGR Entry 1 Time out date/time 05/23/20 13:53:00 All team members Yes have introduced themselves by name and role Surgeon, Yes Surgeon reviews Yes anesthesia, nurse critical or confirm patient, unexpected steps, site, procedure operative duration, anticipated blood loss Anesthesia team Yes Nursing team Yes reviews any reviews sterility patient-specific (including concerns indicator results) and equipment issues/concerns Antibiotic Antibiotic Yes Administration Time 13:30 prophylaxis given within the last 60 minutes Last Modified By: Shanique Brown RN 05/23/20 14:08:00 Patient Positioning MAGR Pre-Care Text: A.280 Identifies baseline musculoskeletal status Im.40 Positions the patient Im.80 Applies safety devices Entry 1 Procedure Arthroplasty Knee Body Position Supine Total(Left) Left Arm Position Extended on padded arm Right Arm Position Extended on padded arm board board Left Leg Position Extended Right Leg Position Extended Feet Uncrossed? Yes Press Points Checked Yes Positioning Device Arm Boards, Arm Strap, Outcome Met (O.80) Yes Pillow, Safety Strap Last Modified By: Shanique Brown RN 05/23/20 14:08:17 Post-Care Text: E.290 Evaluates musculoskeletal status O.80 Patient is free from signs and symptoms of injury related to positioning General Comments: left knee in knee [place] Skin Prep MAGR Pre-Care Text: A.30 Verifies allergies Im.270 Performs skin preparation Im.270.1 Implements protective measures to prevent skin and tissue injury due to chemical sources Entry 1 Skin Prep Syntegrity Prep Agents (Im.270) Povidone-Iodine Prep By Shanique Brown RN Prep Area (Im.270) Knee, Leg, Foot Skin Prep Agent Dry Yes Without Pooling Hair Removal Syntegrity Hair Removal Methods No hair removal performed Outcome Met (O.100) Yes Last Modified By: Shanique Brown RN 05/23/20 14:08:49 Post-Care Text: E.10 Evaluates for signs and symptoms of physical injury to skin and tissue O.100 Patient is free from signs and symptoms of chemical injury Counts Verification MAGR Pre-Care Text: A.20 Verifies operative procedure, surgical site, and laterality A.20.2 Assesses the risk for unintended retained foreign body Im.20 Performs required counts Entry 1 Procedure Arthroplasty Knee Total(Left) Counts Verification Initial Counts Items included in Sponges, Sharps Initial Counts Manual the Initial Count Method Initial Counts Shanique Brown RN, Initial Count Time 05/23/20 13:15:00 Performed By Pam Guzman CST Counts Verification Final Counts Items Included in Sponges, Sharps Final Count Method Manual Final Count Final Count Status Correct Final Counts Shanique Brown RN, Performed By Pam Guzman CST Final Count Time 05/23/20 15:32:00 Surgeon notified of Yes final counts status Outcome Met (O.20) Yes Last Modified By: Shanique Brown RN 05/23/20 15:32:46 Post-Care Text: E.50 Evaluates results of the surgical count O.20 Patient is free from unintended retained foreign objects Patient Care Devices MAGR Pre-Care Text: A.200 Assesses risk for normothermia regulation A.40 Verifies presence of prosthetics or corrective devices Im.280 Implements thermoregulation measures Im.60 Uses supplies and equipment within safe parameters Entry 1 Entry 2 Equipment Type FORCED WARM AIR UNIT right calf flowtron pump blanket upper body Serial ?# [id number] Equipment Setting 43 DEGREES C factory set Last Modified By: Shanique Brown RN, Barbara RN 05/23/20 14:09:41 05/23/20 14:09:41 Post-Care Text: E.10 Evaluates signs and symptoms of physical injury to skin and tissue O.700 Patient is free from signs and symptoms of injury caused by extraneous objects Tourniquet MAGR Pre-Care Text: A.240 Assesses baseline skin condition Im.120 Implements protective measures to prevent skin or tissue injury due to mechanical sources Entry 1 Tourniquet Type TOURNQUET/AC OR2 (3603) Cuff Size 15 cm Setting 350 mmHg Placement Leg upper Padding (Im.120) Yes Placement Details Left Tourniquet Times Inflated 05/23/20 14:00:00 Deflated 05/23/20 15:47:00 Total Time 107 Applied By FERNANDO SILVA Removed By Pam Guzman CST Outcome Met (O.60) Yes Last Modified By: Shanique Brown RN 05/23/20 15:42:29 Post-Care Text: E.10 Evaluates for signs and symptoms of physical injury to skin and tissue O.60 Patient is free from sign and symptoms of injury caused by extraneous objects Cautery MAGR Pre-Care Text: A.240 Assesses baseline skin condition A.40 Verifies presence of prosthetics or corrective devices Im.50 Implements protective measures to prevent injury due to electrical sources Entry 1 ESU Type Electrosurgical Unit Identification [id number] Number ESU Settings Syntegrity Cut Setting 75 Coag Setting 75 Grounding Pad Details Grounding Pad Yes Verified By Shanique Brown RN Needed? Grounding Pad Site Table Grounding Pad Within Expiration Yes Date? Outcome Met (O.10) Yes Last Modified By: Shanique Brown RN 05/23/20 14:10:32 Post-Care Text: E.10 Evaluates for signs and symptoms of physical injury to skin and tissue O.10 Patient is free from signs and symptoms of injury related to thermal sources Medication Administration MAGR Pre-Care Text: A.210 Identifies physiological status Im.220 Administers prescribed medications Entry 1 Time Administered 05/23/20 14:10:00 Medication bacitracin oint Route of Admin TOP By FERNANDO SILVA Outcome Met (O.130) Yes Last Modified By: Shanique Brown RN 05/23/20 14:10:56 Post-Care Text: E.20 Evaluates response to medications O.130 Patient receives appropriately administered medication(s) Implant Log MAGR Pre-Care Text: A.20 Verifies operative procedure, surgical site, and laterality Im.350 Records implants inserted during the operative or invasive procedure Entry 1 Entry 2 Entry 3 Procedure Arthroplasty Knee Arthroplasty Knee Arthroplasty Knee Total(Left) Total(Left) Total(Left) Implant Action Not Implanted Not Implanted Not Implanted Description [place] bone screw 6.5mm [place] headed screw 48mm WALESKA PATELLA REAMER BLADE Implant Information Implant/Explant Date/Time Implanted/Explanted By: Size 6.5mm 48mm 29MM ISADORA Nuclear Reactor Engineer w[place]ka WALESKA WALESKA Catalog # Lot Number [id number] Expiration Date 10/27/29 11/27/29 10/27/29 Serial Number REF [id number] REF 5983 40 [id number] REF [id number] Device Identifier Human Readable CHASE Machine Readable CHASE MR Class Implant Usage Data Site Knee L Knee L Knee L Quantity 1 1 1 Reason for Explant Reason Not Retained Explant Disposition Hand Grinder Sterility External Indicator Result Internal Indicator Results Outcome Met (O.30) Yes Yes Yes Last Modified By: Shanique Brown RN, Barbara RN Long, Barbara RN 05/23/20 14:18:04 05/23/20 15:32:06 05/23/20 15:32:06 Entry 4 Entry 5 Entry 6 Procedure Arthroplasty Knee Arthroplasty Knee Arthroplasty Knee Total(Left) Total(Left) Total(Left) Implant Action Not Implanted Implant Implant Description [place] HEADED SCREW 48 [place] ARTICULAR SURFACE W[place]KA STEM EXTENSION Implant Information Implant/Explant 05/23/20 15:14:00 05/23/20 15:14:00 Date/Time Implanted/Explanted FERNANDO SILVA GEORGE By: Size 48MM C D 15MM ISADORA X 30MM L Nuclear Reactor Engineer WALESKA WALESKA WALESKA Catalog # Lot Number [id number] Expiration Date 02/25/30 01/25/25 08/27/29 Serial Number REF [id number] RE 59 62 30 10 REF [id number] 12 15 Device Identifier Human Readable CHASE Machine Readable CHASE MR Class Implant Usage Data Site Knee L Knee L Knee L Quantity 1 1 1 Reason for Explant Reason Not Retained Explant Disposition Hand Grinder Sterility External Indicator Result Internal Indicator Results Outcome Met (O.30) Yes Yes Yes Last Modified By: Shanique Brown RN, Barbara RN Long, Barbara RN 05/23/20 14:18:04 05/23/20 14:18:04 05/23/20 14:18:04 Entry 7 Entry 8 Entry 9 Procedure Arthroplasty Knee Arthroplasty Knee Arthroplasty Knee Total(Left) Total(Left) Total(Left) Implant Action Implant Implant Implant Description WAL[place]KA POLY PATELLA WALESKA TIBIAL COMP WALESKA FEMORAL COMP Implant Information Implant/Explant 05/23/20 15:15:00 05/23/20 15:16:00 05/23/20 15:16:00 Date/Time Implanted/Explanted FERNANDO SILVA GEORGE STEPANIC, GEORGE By: Size 29 MM ISADORA 4 D Nuclear Reactor Engineer WALESKA WALESKA WALESKA Catalog # Lot Number [id number] Expiration Date 09/27/27 09/25/29 07/28/26 Serial Number REF 42 [id number] 29 REF [id number] 37 02 REF 00 [id number] Device Identifier Human Readable CHASE Machine Readable CHASE MR Class Implant Usage Data Site Knee L Knee L Knee L Quantity 1 1 1 Reason for Explant Reason Not Retained Explant Disposition Hand Grinder Sterility External Indicator Result Internal Indicator Results Outcome Met (O.30) Yes Yes Yes Last Modified By: Shanique Brown RN, Barbara RN Long, Barbara RN 05/23/20 15:29:09 05/23/20 15:29:09 05/23/20 15:29:09 Entry 10 Entry 11 Procedure Arthroplasty Knee Arthroplasty Knee Total(Left) Total(Left) Implant Action Implant Implant Description WALESKA BIOMET BONE WALESKA/BIOMET BONE CEMENT CEMENT Implant Information Implant/Explant 05/23/20 15:29:00 05/23/20 15:30:00 Date/Time Implanted/Explanted FERNANDO SILVA GEORGE By: Size Nuclear Reactor Engineer WALESKA/BIOMET WALESKA/BIOMET Catalog # Lot Number [id number] Expiration Date 05/27/24 05/27/24 Serial Number REF [id number] REF [id number] Device Identifier Human Readable CHASE Machine Readable CHASE MR Class Implant Usage Data Site Knee L Knee L Quantity 1 1 Reason for Explant Reason Not Retained Explant Disposition Hand Grinder Sterility External Indicator Result Internal Indicator Results Outcome Met (O.30) Yes Yes Last Modified By: Shanique Brown RN, Barbara RN 05/23/20 15:29:09 05/23/20 15:29:09 Post-Care Text: E.30 Evaluates verification process for correct patient, site, side and level surgery O.30 Patient's procedure is performed on the correct site, side, and level Dressing/Packing MAGR Pre-Care Text: A.350 Assesses susceptibility for infection Im.290 Administer care to wound sites Entry 1 Skin Prep Agent Yes Site Knee Removed Prior to Dressing? Site Details Left Dressing Item Details Dressing Item 4x4's, ABD, Occlusive Tape (Im.290) Elastic Sports Bandage (Im.290) dressing Outcome Met Yes Last Modified By: Shanique Brown RN 05/23/20 14:53:22 Post-Care Text: E.200 Evaluates progress of wound healing O.200 Patient's wound perfusion is consistent with or improved from baseline levels Departure from OR MAGR Entry 1 Present on Depart Oxygen Via Bed Post-op Destination PACU Skin DFO Condition Dry Description Condition Intact Description Report Given To Shanique Brown RN Airway Maintenance Patient Status Stable Oxygen in Use? Yes Airway Device Simple mask Flow Rate 15 L/min Last Modified By: Shanique Brown RN 05/23/20 16:19:17 Case Comments Finalized By: Shanique Brown RN Document Signatures Signed By: Shanique Brown RN 05/23/20 16:19 [facility] MAGR Intraoperative Record MAGR Intra-Op Record Summary Primary Physician: Finalized Date/Time: 05/23/20 13:14:24 Pt. Name: SANDRA TAVAREZ/Sex: 1940 FEMALE Med Rec #: [id number] Physician: FERNANDO SILVA Financial #: [id number] Pt. Type: I Room/Bed: [facility] Admit/Disch: 05/23/20 09:44:18 - Institution: Case Times MAGR Entry 1 Patient In Room Time 05/23/20 12:58:00 Out Room Time 05/23/20 13:12:00 Anesthesia Start Time 05/23/20 13:03:00 Stop Time 05/23/20 13:09:00 Surgery Start Time 05/23/20 13:07:00 Stop Time 05/23/20 13:09:00 Last Modified By: Stacy Pena RN 05/23/20 13:12:44 Case Attendance MAGR Entry 1 Entry 2 Entry 3 Case Attendee Maico Sandhu Sidsel RN Warga, Laura RN Role Performed Anesthesiologist of Estimating Engineer Estimating Engineer Record Time In 05/23/20 12:58:00 05/23/20 12:58:00 05/23/20 12:58:00 Time Out 05/23/20 13:12:00 05/23/20 13:12:00 05/23/20 13:12:00 Procedure Adductor Canal Adductor Canal Adductor Canal Block(Left) Block(Left) Block(Left) Last Modified By: Stacy Pena RN, Sidsel RN Halblaub, Sidsel RN 05/23/20 13:12:49 05/23/20 13:12:49 05/23/20 13:12:49 Surgical Procedures MAGR Pre-Care Text: A.20 Verifies operative procedure, surgical site, and laterality Im.150 Develops individualized plan of care Entry 1 Procedure Adductor Canal Block Primary Procedure Yes Primary Surgeon Maico Sandhu DO Modifiers Left Surgeon Comment ADDUCTOR CANAL BLOCK Start 05/23/20 13:01:00 PRIOR TO LEFT TOTAL KNEE Stop 05/23/20 13:09:00 Anesthesia Type Regional Block Surgical Service Anesthesia Wound Class Clean Technique Details Closure Technique Non-Primary Entire procedure No was performed via laparoscope or robotic assistance Last Modified By: Stacy Pena RN 05/23/20 13:12:56 Post-Care Text: O.730 The patient's care is consistent with the individualized perioperative plan of care General Case Data MAGR Pre-Care Text: A.350.1 Classifies surgical wound Entry 1 Case Information OR MAGR Proc Room Case Level None Wound Class Clean Specialty Anesthesia ASA Class 3 Diagnosis Preop Diagnosis ADDUCTOR CANAL BLOCK Postop Same As Preop Yes PRIOR TO LEFT TOTAL KNEE Postop Diagnosis ADDUCTOR CANAL BLOCK PRIOR TO LEFT TOTAL KNEE Blunt or No Is the procedure No penetrating injury considered occured prior to Emergent/Urgent? the start of the procedure: Last Modified By: Stacy Pena RN 05/23/20 13:13:41 Post-Care Text: O.760 Patient receives consistent and comparable care regardless of the setting Time Out MAGR Entry 1 Time out date/time 05/23/20 13:01:00 All team members Yes have introduced themselves by name and role Surgeon, Yes Surgeon reviews Yes anesthesia, nurse critical or confirm patient, unexpected steps, site, procedure operative duration, anticipated blood loss Anesthesia team Yes Nursing team Yes reviews any reviews sterility patient-specific (including concerns indicator results) and equipment issues/concerns Antibiotic Antibiotic N/A prophylaxis given within the last 60 minutes Is essential N/A imaging displayed? Last Modified By: Stacy Pena RN 05/23/20 13:13:18 Patient Positioning MAGR Pre-Care Text: A.280 Identifies baseline musculoskeletal status Im.40 Positions the patient Im.80 Applies safety devices Entry 1 Procedure Adductor Canal Body Position Supine Block(Left) Left Arm Position Resting at Side Right Arm Position Resting at Side Left Leg Position Extended Right Leg Position Extended Feet Uncrossed? Yes Press Points Checked Yes Outcome Met (O.80) Yes Last Modified By: Stacy Pena RN 05/23/20 13:08:52 Post-Care Text: E.290 Evaluates musculoskeletal status O.80 Patient is free from signs and symptoms of injury related to positioning Skin Prep MAGR Pre-Care Text: A.30 Verifies allergies Im.270 Performs skin preparation Im.270.1 Implements protective measures to prevent skin and tissue injury due to chemical sources Entry 1 Skin Prep Syntegrity Prep Agents (Im.270) Chlorhexidine Gluconate Prep By Maico Sandhu DO and Alcohol Prep Area (Im.270) Thigh Prep Area Details Left Skin Prep Agent Dry Yes Without Pooling Hair Removal Syntegrity Hair Removal Methods No hair removal performed Outcome Met (O.100) Yes Last Modified By: Stacy Pena RN 05/23/20 13:10:18 Post-Care Text: E.10 Evaluates for signs and symptoms of physical injury to skin and tissue O.100 Patient is free from signs and symptoms of chemical injury Departure from OR MAGR Entry 1 Present on Depart N/A Via Stretcher Post-op Destination [place] Skin DFO Condition Dry Description Condition Intact Description Report Given To Shanique Brown RN Airway Maintenance Patient Status Stable Oxygen in Use? Yes Airway Device Nasal cannula Flow Rate 2 Last Modified By: Stacy Pena RN 05/23/20 13:11:05 Case Comments Finalized By: Stacy Pena RN Document Signatures Signed By: Stacy Pena RN 05/23/20 13:14 [facility] MAGR PACU Recordon 0 MAGR PACU Record MAGR PACU Record Summary Primary Physician: FERNANDO SILVA Finalized Date/Time: 05/23/20 16:49:56 Pt. Name: SANDRA TAVAREZ /Sex: 1940 FEMALE Med Rec #: [id number] Physician: FERNANDO SILVA Financial #: [id number] Pt. Type: I Room/Bed: [facility]/ Admit/Disch: 05/23/20 09:44:18 - Institution: PACU Case Times MAGR Entry 1 In PACU I 05/23/20 16:18:00 Discharge from PACU 05/23/20 16:51:00 I Last Modified By: Shanique Brown RN 05/23/20 16:49:54 Finalized By: Shanique Brown RN Document Signatures Signed By: Shanique Brown RN 05/23/20 16:49 [facility] Nutrition Noteon 05-23-2020 Nutrition Note Pt admitted for scheduled Lt total knee surgery; diet order still pending. No wt hx available from the past year. No recent labs. Last labs on file from January and . Pt follows a low Na diet at home and would rec'd continuing given hx of HTN, edema. No hx of DM. Will need to adjust diet and/or supplements once in place. Full nutrition assessment completed d/t Pt at high nutrition risk r/t age greater than 65y and surgery. [facility] PTon 05-23-2020 INR Coag (PPP) [Relative time] 1.22 {INR} High 0.91-1.11 [facility] Comment on above: Performed By: #### 7 [id number], [id number] #### [facility] (DEFAULT) [address] [place] [address] PT Coag (PPP) [Time] 12.4 second(s) High 9.7-11.8 [facility] Comment on above: Result Comment: Call ed Shira in Pre - Surg at 1059 Performed By: #### 7 [id number], [id number] #### [facility] (DEFAULT) [address] [place] [id number] SARS-CoV-2 (COVID-19) PCRon 05-23-2020 COVID-19 PCR Not Detected Normal Not Detected [facility] Comment on above: Result Comment: perf ormed in house Results Called To Sidsel in pre-surg By ARIADNA And Read Back For Confirmation On 05/23/2020 10:55:59 EDT Performed By: #### 7 [id number], [id number], [id number] #### [facility] (DEFAULT) [address] [place] [id number] XR Knee One or Two Views [place] 05-23-2020 XR Knee One or Two Views Left EXAM: XR KNEE 2 VIEWS LEFT HISTORY: knee replacement left . COMPARISON: 02/08/2020 left knee TECHNIQUE: AP and crosstable lateral views of the left knee FINDINGS: There has been interval knee replacement with satisfactory appearance and position of prosthetic components. Anterior vertical row of skin lacie and residual soft tissue and joint space air is present. IMPRESSION: Satisfactory postoperative appearance of interval left knee replacement. Postsurgical soft tissue air and anterior skin lacie are present. Final Dictated by: Jae Cardona Dictated DT/TM: 05/23/20 4:49 Signed (Electronic Signature): Jae Cardona 05/23/20 4:50 pm Technologist: Michelle BLANTON [facility] Progress Note - Nurseon 04-28 Progress Note - Nurse Chart reviewed by Dr. Maria and no new orders received. May proceed to surgery. [Electronically Signed on: 05/07/2020 15:56 EDT] Chrissie Contreras RN [Verified on: 05/07/2020 15:56 EDT] Chrissie Contreras RN [facility] Coding Summaryon 02-27-2020 Coding Summary CODING DATE: 02/27/2020 [facility] STATUS: Home PAYOR: Medicare APC DESCRIPTION 5522 Level 2 Imaging without Contrast ADMIT DX: REASON FOR VISIT DX: Z01.818 Encounter for other preprocedural examination FINAL DX: PRINCIPAL: Z01.818 Encounter for other preprocedural examination SECONDARY: I10 Essential (primary) hypertension D64.9 Anemia, unspecified Z87.891 Personal history of nicotine dependence K21.9 Gastro-esophageal reflux disease without esophagitis I82.409 Acute embolism and thrombosis of unspecified deep veins of unspecified lower extremity I42.9 Cardiomyopathy, unspecified PYMT PROC APC STAT DESCRIPTION DOCTOR NAME DATE NOTE: The code number assigned matches the documented diagnosis and / or procedure in the patient's chart. However, the narrative phrase printed from the coding software may appear abbreviated, or result in slightly different terminology. Revised Coded By: Morena Fang Revised Date Saved: 02/27/2020 01:41 pm [facility] Progress Note - Nurseon 01-26 Progress Note - Nurse Chart reviewed by Dr. Garcia and no new orders received. [Electronically Signed on: 02/12/2020 15:52 EDT] Chrissie Contreras RN [Verified on: 02/12/2020 15:52 EDT] Chrissie Contreras RN [facility] Provider Orderson 02-11-2020 Provider Orders [id number] [facility] C Urineon 02-10-2020 C Urine Urine Culture ordere d as a result of parameters set on specific urine dip and urine microsopic results. Mixed skin, or urogenital paddy. Clinically insignificant [facility] Comment on above: Performed By: #### 1 [id number], [id number], [id number] #### [facility] (DEFAULT) [address] [place] [address] .Auto Diff 1on 02-08-2020 Auto Harding % 12 % Normal 1-12 [facility] Comment on above: Performed By: #### 7 [id number], [id number], [id number] #### [facility] (DEFAULT) [address] [place] [address] 52819 Baso Abs# 0.0 x10 Normal 0.0-0.2 [facility] Comment on above: Performed By: #### 7 [id number], [id number], [id number] #### [facility] (DEFAULT) [address] [place] [address] 27154 Basophils/100 WBC (Bld) 0.4 % Normal 0.2-2.0 [facility] Comment on above: Performed By: #### 7 [id number], [id number], [id number] #### [facility] (DEFAULT) [address] [place] [address] 41976 Eos Abs# 0.1 x10 Normal 0.0-0.4 [facility] Comment on above: Performed By: #### 7 366947, [id number], [id number] #### [facility] (DEFAULT) [address] [place] [address] 65133 Eosinophils/100 WBC (Bld) 1.9 % Normal 0.9-4.0 [facility] Comment on above: Performed By: #### 7 114584, [id number], [id number] #### [facility] (DEFAULT) [address] [place] [address] 76244 Lymphocytes (Bld) [#/Vol] 1.0 x10 Low 1.3-2.9 [facility] Comment on above: Performed By: #### 7 998433, [id number], [id number] #### [facility] (DEFAULT) [address] [place] [address] 46353 Lymphocytes/100 WBC (Bld) 22 % Normal 14-48 [facility] Comment on above: Performed By: #### 7 [id number], [id number], [id number] #### [facility] (DEFAULT) [address] [place] [address] 58718 Harding Abs# 0.6 x10 Normal 0.0-0.8 [facility] Comment on above: Performed By: #### 7 127806, [id number], [id number] #### [facility] (DEFAULT) [address] [place] [address] Neut Abs# 3.0 x10 Normal 1.5-9.2 [facility] Comment on above: Performed By: #### 7 294335, [id number], [id number] #### [facility] (DEFAULT) [address] [place] [address] Neutrophils/100 WBC (Bld) 64 % Normal 44-88 [facility] Comment on above: Performed By: #### 7 [id number], [id number], [id number] #### [facility] (DEFAULT) [address] [place] [address] BMP Standardon 02-08-2020 eGFR Non AA >60 [facility] Comment on above: Performed By: #### 7 [id number], [id number], [id number] #### [facility] (DEFAULT) [address] [place] [address] eGFR AA >60 [facility] Comment on above: Result Comment: Cleat Blanker ghazal Kidney disease could be indicated at eGFRs of less than 60 ml/min/1.73m2. Kidney Failure is indicated at less than 15 ml/min/1.73m2 Performed By: #### 7 746376, [id number], [id number] #### [facility] (DEFAULT) [address] [place] [address] 53501 Anion gap [Moles/Vol] 15.0 mmol/L Normal 5.0-19.0 [facility] Comment on above: Performed By: #### 7 431222, [id number], [id number] #### [facility] (DEFAULT) [address] [place] [address] 78209 Calcium [Mass/Vol] 9.4 mg/dL Normal 8.9-10.3 [facility] Comment on above: Performed By: #### 7 118751, [id number], [id number] #### [facility] (DEFAULT) [address] [place] [address] 65343 Chloride [Moles/Vol] 102 mmol/L Normal 101-111 [facility] Comment on above: Performed By: #### 7 504055, 82075083, [id number] #### [facility] (DEFAULT) [address] [place] [address] 76662 CO2 [Moles/Vol] 26 mmol/L Normal 21-32 [facility] Comment on above: Performed By: #### 7 363773, 79886446, [id number] #### [facility] (DEFAULT) [address] [place] [address] 26643 Creatinine [Mass/Vol] 0.64 mg/dL Normal 0.60-1.30 [facility] Comment on above: Performed By: #### 7 081241, 38964034, [id number] #### [facility] (DEFAULT) [address] [place] [address] 20533 Glucose [Mass/Vol] 112.0 mg/dL Normal 74.0-118.0 [facility] Comment on above: Performed By: #### 7 711528, 12290716, [id number] #### [facility] (DEFAULT) [address] [place] [address] 12521 Osmolality [Osmolality] 280 mOsm/L [facility] Comment on above: Performed By: #### 7 810659, [id number], [id number] #### [facility] (DEFAULT) [address] [place] [address] 76690 Potassium [Moles/Vol] 4.1 mmol/L Normal 3.6-5.1 [facility] Comment on above: Performed By: #### 7 531418, 94602737, [id number] #### [facility] (DEFAULT) [address] [place] [address] 32592 Sodium [Moles/Vol] 139.0 mmol/L Normal 136.0-144.0 [facility] Comment on above: Performed By: #### 7 084536, 34103953, [id number] #### [facility] (DEFAULT) [address] [place] [address] 97098 Urea nitrogen [Mass/Vol] 19 mg/dL Normal 8-26 [facility] Comment on above: Performed By: #### 7 437778, 94042298, [id number] #### [facility] (DEFAULT) [address] [place] [address] Urea nitrogen/Creatinine [Mass ratio] 30.0 mg/mg High 4.6-16.2 [facility] Comment on above: Performed By: #### 7 800182, 75611247, [id number] #### [facility] (DEFAULT) [address] [place] [address] CBC w/ Auto Diffon 0 Erythrocyte distribution width (RBC) [Ratio] 14.8 % Normal 11.5-15.0 [facility] Comment on above: Performed By: #### 7 855525, 37960979, [id number] #### [facility] (DEFAULT) [address] [place] [address] Hematocrit (Bld) [Volume fraction] 37.2 % Normal 33.7-40.4 [facility] Comment on above: Performed By: #### 7 193865, 14434041, [id number] #### [facility] (DEFAULT) [address] [place] [address] Hemoglobin (Bld) [Mass/Vol] 11.6 g/dL Normal 11.3-15.9 [facility] Comment on above: Performed By: #### 7 651325, [id number], [id number] #### [facility] (DEFAULT) [address] [place] [address] Man Diff? Auto Normal [facility] Comment on above: Performed By: #### 7 318900, 14449310, [id number] #### [facility] (DEFAULT) [address] [place] [address] 50611 MCH (RBC) [Entitic mass] 26 pg Normal 24-34 [facility] Comment on above: Performed By: #### 7 264037, 11508610, [id number] #### [facility] (DEFAULT) [address] [place] [address] 68263 MCHC (RBC) [Mass/Vol] 31 g/dL Normal 26-37 [facility] Comment on above: Performed By: #### 7 237976, 10611450, [id number] #### [facility] (DEFAULT) [address] [place] [address] 20784 MCV (RBC) [Entitic vol] 83 fL Normal 81-100 [facility] Comment on above: Performed By: #### 7 503511, 57589122, [id number] #### [facility] (DEFAULT) [address] [place] [address] 28009 Platelet mean volume (Bld) [Entitic vol] 10.8 fL High 6.3-10.2 [facility] Comment on above: Performed By: #### 7 918162, 06767964, [id number] #### [facility] (DEFAULT) [address] [place] [address] 21620 Platelets (Bld) [#/Vol] 218 x10 Normal 138-427 [facility] Comment on above: Performed By: #### 7 228280, 64714247, [id number] #### [facility] (DEFAULT) [address] [place] [address] 85983 RBC (Bld) [#/Vol] 4.47 x10 Normal 3.70-5.30 [facility] Comment on above: Performed By: #### 7 967514, 35660928, [id number] #### [facility] (DEFAULT) [address] [place] [address] 04733 WBC (Bld) [#/Vol] 4.8 x10 Normal 3.5-10.5 [facility] Comment on above: Performed By: #### 7 616955, 11242834, [id number] #### [facility] (DEFAULT) [address] [place] [address] 67346 UA Eltuu9pg 02-08-2020 RBC (U) [#/Vol] None Seen Normal [facility] Comment on above: Order Comment: Urina lysis Microscopic order added on by [employer] system. Performed By: #### 1 [id number], [id number], [id number] #### [facility] (DEFAULT) [address] [place] [address] 28608 UA Bacteria 2+ [facility] Comment on above: Order Comment: Urina lysis Microscopic order added on by [employer] system. Performed By: #### 1 [id number], [id number], [id number] #### [facility] (DEFAULT) [address] [place] [address] 69056 UA Squam Epi Moderate [facility] Comment on above: Order Comment: Urina lysis Microscopic order added on by [employer] system. Performed By: #### 1 [id number], [id number], [id number] #### [facility] (DEFAULT) [address] [place] [address] 83714 UA WBC 3-5 [facility] Comment on above: Order Comment: Urina lysis Microscopic order added on by [employer] system. Performed By: #### 1 [id number], [id number], [id number] #### [facility] (DEFAULT) [address] [place] [address] UA w Culture if Ind Standard on 02-08-2020 Breakpoint UA [facility] Comment on above: Performed By: #### 1 [id number], [id number], [id number] #### [facility] (DEFAULT) [address] [place] [address] Color (U) Yellow [facility] Comment on above: Performed By: #### 1 [id number], [id number], [id number] #### [facility] (DEFAULT) [address] [place] [address] Culture? Yes [facility] Comment on above: Performed By: #### 1 [id number], [id number], [id number] #### [facility] (DEFAULT) [address] [place] [address] 23602 Glucose (U) [Mass/Vol] Negative [facility] Comment on above: Performed By: #### 1 [id number], 85762092, [id number] #### [facility] (DEFAULT) [address] [place] [address] 19096 Ketones Ql (U) Negative [facility] Comment on above: Performed By: #### 1 [id number], [id number], [id number] #### [facility] (DEFAULT) [address] [place] [address] 76323 Micro? Indicated [facility] Comment on above: Performed By: #### 1 [id number], 75242602, [id number] #### [facility] (DEFAULT) [address] [place] [address] 89710 UA Bilirubin Negative Normal [facility] Comment on above: Performed By: #### 1 [id number], 64748065, [id number] #### [facility] (DEFAULT) [address] [place] [address] 41836 UA Blood Negative Normal NEGATIVE [facility] Comment on above: Performed By: #### 1 [id number], [id number], [id number] #### [facility] (DEFAULT) [address] [place] [address] 82807 UA Clarity SL CLOUDY Abnormal CLEAR [facility] Comment on above: Performed By: #### 1 [id number], [id number], [id number] #### [facility] (DEFAULT) [address] [place] [address] 71486 UA Leuk Est TRACE Abnormal NEGATIVE [facility] Comment on above: Performed By: #### 1 [id number], 80772749, [id number] #### [facility] (DEFAULT) [address] [place] [address] 77592 UA Nitrite Negative Normal NEGATIVE [facility] Comment on above: Performed By: #### 1 [id number], [id number], [id number] #### [facility] (DEFAULT) [address] [place] [address] 71869 UA pH 6.0 Normal 5-8 [facility] Comment on above: Performed By: #### 1 [id number], [id number], [id number] #### [facility] (DEFAULT) [address] [place] [address] 41337 UA Protein Negative Normal NEGATIVE [facility] Comment on above: Performed By: #### 1 [id number], 96794036, [id number] #### [facility] (DEFAULT) [address] [place] [address] UA Spec Grav 1.025 Normal 1.001-1.035 [facility] Comment on above: Performed By: #### 1 [id number], 41071186, [id number] #### [facility] (DEFAULT) [address] [place] [address] UA Urobilinogen 0.2 mg/dL Normal 0.2-1.0 [facility] Comment on above: Performed By: #### 1 [id number], [id number], [id number] #### [facility] (DEFAULT) [address] [place] [address] Urine Source Clean Catch [facility] Comment on above: Performed By: #### 1 [id number], [id number], [id number] #### [facility] (DEFAULT) [address] [place] [address] XR Knee Complete Left Standi [facility] 02-08-2020 XR Knee Complete Left Standing EXAM: XR Knee Complete Left Standing HISTORY: left total knee COMPARISON: None. TECHNIQUE: 4 views of the left knee. FINDINGS: There are no acute fractures or dislocations. No radiopaque foreign bodies. There is severe medial prominent joint space loss. There are osteophytes arising from the distal femur. There is tiny spurring off the patella. There is patellofemoral joint space narrowing. There are vascular calcifications. 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 Final Dictated by: Hieu Mcpherson Dictated DT/TM: 02/08/20 2:44 Signed (Electronic Signature): Hieu Mcpherson 02/08/20 3:02 pm Technologist: Rony ANTONIO [facility] Vital Signs Date Time Vital Sign Value Performing Clinician Facility 09-21-2023 14:00-0400 Body height 152.4 cm [employer] Other [employer] [facility] Other 09-21-2023 14:00-0400 Body mass index (BMI) [Ratio] 52.69 kg/m2 [employer] Other [facility] Other 09-21-2023 14:00-0400 Body weight 122.38 kg Robert Ball Other [facility] Other 09-21-2023 14:00-0400 Diastolic blood pressure 70 mm[Hg] Robert Ball Other [facility] Other 09-21-2023 14:00-0400 Respiratory rate 20 /min Robert Ball Other [employer] [facility] Other 09-21-2023 14:00-0400 Systolic blood pressure 150 mm[Hg] Robert Ball Other [facility] [facility] Other 08-15-2023 15:00-0400 Body height 152.4 cm Robert Ball Other [employer] [facility] Other 08-15-2023 15:00-0400 Body mass index (BMI) [Ratio] 54.33 kg/m2 Robert Ball Other [facility] Other 08-15-2023 15:00-0400 Body weight 126.19 kg Robert Ball Other [employer] [facility] Other 08-15-2023 15:00-0400 Diastolic blood pressure 79 mm[Hg] Robert Ball Other [facility] [facility] Other 08-15-2023 15:00-0400 Respiratory rate 16 /min Robert Ball Other [facility] [facility] Other 08-15-2023 15:00-0400 Systolic blood pressure 147 mm[Hg] Robert Ball Other [facility] Other 07-11-2023 11:00-0400 Body height 152.4 cm Robert Ball Other [facility] Other 07-11-2023 11:00-0400 Body mass index (BMI) [Ratio] 55.26 kg/m2 Robert Ball Other [facility] Other 07-11-2023 11:00-0400 Body weight 128.37 kg Robert Ball Other [facility] Other 07-11-2023 11:00-0400 Diastolic blood pressure 90 mm[Hg] Robert Ball Other [facility] [facility] Other 07-11-2023 11:00-0400 Respiratory rate 16 /min Robert Ball Other [facility] Other 07-11-2023 11:00-0400 Systolic blood pressure 140 mm[Hg] Robert Ball Other [facility] [facility] Other 05-25-2023 14:00-0400 Body height 152.4 cm Robert Ball Other [facility] [facility] Other 05-25-2023 14:00-0400 Body mass index (BMI) [Ratio] 54.25 kg/m2 Robert Ball Other [facility] Other 05-25-2023 14:00-0400 Body weight 126.01 kg Robert Ball Other [employer] [facility] Other 05-25-2023 14:00-0400 Diastolic blood pressure 76 mm[Hg] Robert Ball Other [employer] [facility] Other 05-25-2023 14:00-0400 Respiratory rate 16 /min Robert Ball Other [employer] [facility] Other 05-25-2023 14:00-0400 Systolic blood pressure 151 mm[Hg] Robert Ball Other [employer] [facility] Other 04-08-2023 12:15-0400 Body height 152.4 cm Robert Ball Other [facility] [facility] Other 04-08-2023 12:15-0400 Body mass index (BMI) [Ratio] 53.84 kg/m2 Robert Ball Other [facility] Other 04-08-2023 12:15-0400 Body weight 125.06 kg Robert Ball Other [facility] Other 04-08-2023 12:15-0400 Diastolic blood pressure 80 mm[Hg] Robert Ball Other [employer] [facility] Other 04-08-2023 12:15-0400 Respiratory rate 12 /min Robert Ball Other [facility] Other 04-08-2023 12:15-0400 Systolic blood pressure 124 mm[Hg] Robert Ball Other [employer] [facility] Other 03-23-2023 14:30-0400 Body height 152.4 cm Robert Ball Other [employer] [facility] Other 03-23-2023 14:30-0400 Body mass index (BMI) [Ratio] 53.82 kg/m2 Robert Ball Other [employer] Other 03-23-2023 14:30-0400 Body weight 125.01 kg Robert Ball Other [employer] [facility] Other 03-23-2023 14:30-0400 Diastolic blood pressure 84 mm[Hg] Robert Ball Other [employer] Other 03-23-2023 14:30-0400 Respiratory rate 12 /min Robert Ball Other [employer] Other 03-23-2023 14:30-0400 Systolic blood pressure 122 mm[Hg] Robert Ball Other [employer] Other 03-02-2023 12:00-0400 Body height 152.4 cm Robert Ball Other [employer] [facility] Other 03-02-2023 12:00-0400 Body mass index (BMI) [Ratio] 54.01 kg/m2 Robert Ball Other [employer] Other 03-02-2023 12:00-0400 Body weight 125.47 kg Robert Ball Other [employer] [facility] Other 03-02-2023 12:00-0400 Diastolic blood pressure 72 mm[Hg] Robert Ball Other [employer] Other 03-02-2023 12:00-0400 Respiratory rate 12 /min Robert Ball Other [employer] Other 03-02-2023 12:00-0400 Systolic blood pressure 122 mm[Hg] Robert Ball Other [employer] Other 02-14-2023 14:15-0400 Body height 152.4 cm Michael Dunaway Other [employer] [facility] [facility] Other 02-14-2023 14:15-0400 SaO2% (BldA) [Mass fraction] 98 % Michaelrancho Dunaway Other [employer] [facility] Other 01-27-2023 15:00-0500 Body height 152.4 cm Michael Dunaway Other [employer] [facility] [facility] Other 01-27-2023 15:00-0500 Diastolic blood pressure 84 mm[Hg] Michael Dunaway Other [employer] Other 01-27-2023 15:00-0500 SaO2% (BldA) [Mass fraction] 98 % Michael Dunaway Other [employer] [facility] Other 01-27-2023 15:00-0500 Systolic blood pressure 126 mm[Hg] Michael Dunaway Other [employer] Other 12-31-2022 12:30-0500 Body height 152.4 cm Michael Dunaway Other [employer] Other 12-31-2022 12:30-0500 SaO2% (BldA) [Mass fraction] 96 % Michael Dunaway Other [employer] [facility] Other 12-27-2022 11:15-0500 Body height 152.4 cm Ivon Batista Other [employer] Other 12-27-2022 11:15-0500 Body mass index (BMI) [Ratio] 53.08 kg/m2 Ivon Batista Other [employer] Other 12-27-2022 11:15-0500 Body temperature 96 [degF] Ivon Batista Other [employer] Other 12-27-2022 11:15-0500 Body weight 123.29 kg Ivon Batista Other [employer] [facility] Other 12-27-2022 11:15-0500 Diastolic blood pressure 92 mm[Hg] Ivon Batista Other [employer] Other 12-27-2022 11:15-0500 SaO2% (BldA) [Mass fraction] 96 % Ivon Batista Other [employer] Other 12-27-2022 11:15-0500 Systolic blood pressure 156 mm[Hg] Ivon Batista Other [employer] Other 12-02-2022 11:45-0500 Body height 152.4 cm Ursula Velarde Other [employer] Other 12-02-2022 11:45-0500 Diastolic blood pressure 80 mm[Hg] Ursula Velarde Other [employer] Other 12-02-2022 11:45-0500 SaO2% (BldA) [Mass fraction] 97 % Ursula Velarde Other [employer] Other 12-02-2022 11:45-0500 Systolic blood pressure 126 mm[Hg] Ursula Velarde Other [employer] Other 11-02-2022 12:15-0500 Body height 152.4 cm Michaelrancho Dunaway Other [employer] Other 11-02-2022 12:15-0500 Diastolic blood pressure 80 mm[Hg] Michaelrancho Dunaway Other [employer] Other 11-02-2022 12:15-0500 SaO2% (BldA) [Mass fraction] 98 % Michael Emelyn Other [employer] Other 11-02-2022 12:15-0500 Systolic blood pressure 140 mm[Hg] Michael Emelyn Other [employer] Other 09-11-2022 11:55-0400 Body height 152.4 cm Kaitlynn Foy Other [employer] Other 09-11-2022 11:55-0400 Body mass index (BMI) [Ratio] 50.77 kg/m2 Kaitlynn Foy Other [employer] [facility] Other 09-11-2022 11:55-0400 Body temperature 96.8 [degF] Kaitlynn Foy Other [employer] Other 09-11-2022 11:55-0400 Body weight 117.94 kg Kaitlynn Foy Other [employer] [facility] Other 09-11-2022 11:55-0400 Respiratory rate 18 /min Kaitlynn Fyo Other [facility] [facility] Other 09-11-2022 11:55-0400 SaO2% (BldA) [Mass fraction] 97 % Kaitlynn Foy Other [facility] Other 09-10-2022 12:30-0400 Body height 152.4 cm Mihcael Dunaway Other [employer] [facility] Other 09-10-2022 12:30-0400 Diastolic blood pressure 80 mm[Hg] Michael Dunaway Other [employer] Other 09-10-2022 12:30-0400 SaO2% (BldA) [Mass fraction] 99 % Michael Dunaway Other [employer] [facility] Other 09-10-2022 12:30-0400 Systolic blood pressure 120 mm[Hg] Michael Dunaway Other [employer] [facility] Other 07-29-2022 17:45-0400 Body height 152.4 cm Michael Dunaway Other [employer] [facility] Other 07-29-2022 17:45-0400 Diastolic blood pressure 76 mm[Hg] Michael Dunaway Other [facility] [facility] Other 07-29-2022 17:45-0400 SaO2% (BldA) [Mass fraction] 99 % Michael Dunaway Other [facility] Other 07-29-2022 17:45-0400 Systolic blood pressure 124 mm[Hg] Michael Dunaway Other [employer] Other 07-02-2022 13:00-0400 Body height 152.4 cm Michael Dunaway Other [employer] Other 07-02-2022 13:00-0400 Body mass index (BMI) [Ratio] 53.97 kg/m2 Michael Dunaway Other [employer] Other 07-02-2022 13:00-0400 Body weight 125.38 kg Michael Dunaway Other [employer] Other 07-02-2022 13:00-0400 Diastolic blood pressure 88 mm[Hg] Michael Dunaway Other [employer] [facility] Other 07-02-2022 13:00-0400 SaO2% (BldA) [Mass fraction] 97 % Michael Dunaway Other [employer] [facility] Other 07-02-2022 13:00-0400 Systolic blood pressure 142 mm[Hg] Michael Dunaway Other [employer] Other 06-23-2022 12:52-0400 Diastolic blood pressure 64 mm[Hg] DO Robert Ball Work Phone: [facility] 06-23-2022 12:52-0400 Heart rate 73 /min DO Robert Ball Work Phone: [facility] 06-23-2022 12:52-0400 Respiratory rate 20 /min DO Robert Ball Work Phone: [facility] 06-23-2022 12:52-0400 SaO2% (BldA) [Mass fraction] 97 % DO Robert Ball Work Phone: [facility] 06-23-2022 12:52-0400 Systolic blood pressure 132 mm[Hg] DO Robert Ball Work Phone: [facility] 06-23-2022 12:16-0400 Inhaled oxygen flow rate 3 L/min DO Robert Ball Work Phone: [facility] 06-23-2022 10:24-0400 Body height 152.4 cm DO Robert Ball Work Phone: [facility] 06-23-2022 10:24-0400 Body weight 123.37 kg DO Robert Ball Work Phone: [facility] 06-18-2022 12:15-0400 Body height 152.4 cm Michael Dunaway Other [employer] Other 06-18-2022 12:15-0400 Body mass index (BMI) [Ratio] 53.19 kg/m2 Michael Dunaway Other [employer] Other 06-18-2022 12:15-0400 Body weight 123.56 kg Michael Dunaway Other [employer] [facility] Other 06-18-2022 12:15-0400 Diastolic blood pressure 78 mm[Hg] Michael Dunaway Other [employer] Other 06-18-2022 12:15-0400 SaO2% (BldA) [Mass fraction] 96 % Michael Anthonyky Other [employer] Other 06-18-2022 12:15-0400 Systolic blood pressure 146 mm[Hg] Michaelrancho Dunaway Other [employer] [facility] Other 05-05-2022 06:31-0400 Body height 152.4 cm DO Robert Ball Work Phone: [facility] 05-05-2022 06:31-0400 Body mass index (BMI) [Ratio] 51.7 kg/m2 DO Robert Ball Work Phone: [facility] 05-05-2022 06:31-0400 Body weight 120.2 kg DO Robert Ball Work Phone: [facility] 03-11-2022 17:15-0400 Body height 152.4 cm Michael Emelyn Other [employer] Other 03-11-2022 17:15-0400 Diastolic blood pressure 70 mm[Hg] Michaelrancho Dunaway Other [employer] Other 03-11-2022 17:15-0400 SaO2% (BldA) [Mass fraction] 98 % Michaelrancho Dunaway Other [employer] Other 03-11-2022 17:15-0400 Systolic blood pressure 144 mm[Hg] Michaelrancho Dunaway Other [employer] Other 03-04-2022 09:59-0400 Blood Pressure Location Taye MUROG[facility] [place] 04-07-2022 09:59-0400 Diastolic blood pressure 82 mm[Hg] Taye NILL [facility] [place] 03-04-2022 09:59-0400 Heart rate 72 /min Taye NILL [facility] [place] 03-04-2022 09:59-0400 Respiratory rate 20 /min Taye NILL [facility] Surgery [place] 03-04-2022 09:59-0400 Systolic blood pressure 160 mm[Hg] Taye NILL [facility] Surgery [place] 02-18-2022 17:00-0400 Body height 152.4 cm Michael Dunaway Other [employer] Other 02-18-2022 17:00-0400 Body mass index (BMI) [Ratio] 53.51 kg/m2 Michael Dunaway Other [employer] Other 02-18-2022 17:00-0400 Body weight 124.29 kg Michael Dunaway Other [employer] Other 02-18-2022 17:00-0400 Diastolic blood pressure 70 mm[Hg] Michael Dunaway Other [employer] Other 02-18-2022 17:00-0400 SaO2% (BldA) [Mass fraction] 94 % Michael Dunaway Other [employer] Other 02-18-2022 17:00-0400 Systolic blood pressure 130 mm[Hg] Michael Dunaway Other [employer] Other 01-28-2022 17:00-0500 Body height 152.4 cm Usama Batista Other [employer] Other 01-28-2022 17:00-0500 Body mass index (BMI) [Ratio] 50.38 kg/m2 Usama Batista Other [employer] Other 01-28-2022 17:00-0500 Body weight 117.03 kg Usama Batista Other [employer] Other 11-07-2021 12:20-0500 Body height 152.4 cm Quita Iris Other [employer] Other 11-07-2021 12:20-0500 Body mass index (BMI) [Ratio] 50.38 kg/m2 Quita Iris Other [employer] Other 11-07-2021 12:20-0500 Body temperature 97.9 [degF] Quita Iris Other [employer] Other 11-07-2021 12:20-0500 Body weight 117.03 kg Quita Iris Other [employer] Other 11-07-2021 12:20-0500 Diastolic blood pressure 71 mm[Hg] Quita Iris Other [employer] Other 11-07-2021 12:20-0500 Respiratory rate 18 /min Quita Iris Other [employer] Other 11-07-2021 12:20-0500 SaO2% (BldA) [Mass fraction] 96 % Quita Simmons Other [employer] Other 11-07-2021 12:20-0500 Systolic blood pressure 159 mm[Hg] Quita Simmons Other [employer] Other Encounters Encounter Date Encounter Type Care Provider Facility Start: 11-11-2023 End: 11-11-2023 ambulatory Robert Ball Other [employer] Other Start: 11-11-2023 Telephone encounter Robert Ball [facility] Start: 11-10-2023 End: 11-10-2023 ambulatory Robert Ball Other [employer] Other Start: 11-10-2023 Telephone encounter Robert Ball [facility] Start: 11-04-2023 End: 11-04-2023 ambulatory Robert Ball Other [employer] Other Start: 11-04-2023 Telephone encounter Robert Ball [facility] Start: 10-31-2023 End: 11-01-2023 ambulatory MAYTE Godwin MARLOW Not Available Start: 10-19-2023 End: 10-19-2023 ambulatory Robert Ball Other [employer] Other Start: 10-19-2023 Telephone encounter Robert Ball [facility] Start: 09-21-2023 End: 09-21-2023 ambulatory Robert Ball Other [employer] Other Start: 09-21-2023 Office outpatient vi sit 25 minutes Robert Ball [facility] Start: 09-08-2023 End: 09-08-2023 ambulatory Robert Ball Other [employer] Other Start: 09-08-2023 Telephone encounter Robert Ball [facility] Start: 08-29-2023 End: 08-29-2023 ambulatory Robert Ball Other [employer] Other Start: 08-29-2023 Telephone encounter Robert Ball [facility] Start: 08-16-2023 End: 08-16-2023 ambulatory Robert Genna Other [employer] Other Start: 08-16-2023 Telephone encounter Robert Ball [facility] Start: 08-15-2023 End: 08-15-2023 ambulatory Robert Ball Other [employer] Other Start: 08-15-2023 Transitional care manage srvc 14 day discharge Robert Ball [facility] Start: 07-25-2023 End: 07-25-2023 ambulatory Robert Ball Other [employer] Other Start: 07-25-2023 Telephone encounter Robert Ball [facility] Start: 07-21-2023 End: 07-21-2023 ambulatory Robert Ball Other [employer] Other Start: 07-21-2023 Telephone encounter Robert Ball [facility] Start: 07-19-2023 End: 07-19-2023 ambulatory Robert Ball Other [employer] Other Start: 07-19-2023 Telephone encounter Robert Ball [facility] Start: 07-11-2023 End: 07-11-2023 ambulatory Robert Ball Other [employer] Other Start: 07-11-2023 Office outpatient vi sit 25 minutes Robert Ball [facility] Start: 05-25-2023 End: 05-25-2023 ambulatory Robert Ball Other [employer] Other Start: 05-25-2023 Office outpatient vi sit 15 minutes Robert Ball [facility] Start: 04-26-2023 End: 04-26-2023 ambulatory Robert Ball Other [employer] Other Start: 04-26-2023 Telephone encounter Robert Vail [facility] Start: 04-08-2023 End: 04-08-2023 ambulatory Robert Vail Other [employer] Other Start: 04-08-2023 Office outpatient vi sit 15 minutes Robert Vail [facility] Start: 04-07-2023 End: 04-08-[address] ROBERT VAIL Facility: Start: 03-23-2023 End: 03-23-2023 ambulatory Robert Vail Other [employer] Other Start: 03-23-2023 Office outpatient vi sit 15 minutes Robert Vail [facility] Start: 03-16-2023 End: 03-16-2023 ambulatory Robert Vail Other [employer] Other Start: 03-16-2023 Telephone encounter Robert Vail [facility] Start: 03-14-2023 End: 03-15-[address] ROBERT VAIL [facility] [employer] Other Start: 03-14-2023 Telephone encounter Robert Genna [facility] Start: 03-10-2023 End: 03-10-2023 ambulatory Robert Genna Other [employer] Other Start: 03-10-2023 Office outpatient vi sit 15 minutes Robert Vail [facility] Start: 03-10-2023 Telephone encounter Robert Genna [facility] Start: 03-02-2023 End: 03-02-2023 ambulatory Robert Vail Other [employer] Other Start: 03-02-2023 Patient encounter procedure Robert Vail [facility] Start: 02-14-2023 End: 02-14-2023 ambulatory Robert Vail Other [employer] Other Start: 02-14-2023 Office outpatient vi sit 25 minutes Michael Dunaway [facility] Start: 02-14-2023 Telephone encounter Robert Vail [facility] Start: 02-03-2023 (PROC) PROCEDURE Michael Ramírez [facility] Start: 02-03-2023 End: 02-03-2023 ambulatory Michael Dunaway Other [employer] Other Start: 01-27-2023 End: 01-27-2023 ambulatory Michael Dunaway Other [employer] Other Start: 01-27-2023 Follow-up encounter Michael Dunaway [facility] Start: 01-19-2023 End: 01-19-2023 ambulatory Robert Vail Other [employer] Other Start: 01-19-2023 Telephone encounter Robert Vail [facility] Start: 01-04-2023 (PROC) PROCEDURE Michael Ramírez [facility] Start: 01-04-2023 End: 01-04-2023 ambulatory Michael Dunaway Other [employer] Other Start: 12-31-2022 End: 12-31-2022 ambulatory Michael Dunaway Other [employer] Other Start: 12-31-2022 Office outpatient vi sit 25 minutes Michael Dunaway [facility] Start: 12-27-2022 End: 12-27-2022 ambulatory Ivon Batista Other [employer] Other Start: 12-27-2022 Office outpatient vi sit 15 minutes Ivon Batista [facility] Start: 12-02-2022 End: 12-02-2022 ambulatory Ursula Velarde Other [employer] Other Start: 12-02-2022 Office outpatient vi sit 15 minutes Ursula Velarde [facility] Start: 11-18-2022 (PROC) PROCEDURE Michael Ramírez [facility] Start: 11-18-2022 End: 11-18-2022 ambulatory Michael Emelyn Other [employer] Other Start: 11-03-2022 Pre-procedure evaluation check Robert Vail Other [employer] Other Start: 11-02-2022 End: 11-02-2022 ambulatory Michael Emelyn Other [employer] Other Start: 11-02-2022 Office outpatient vi sit 25 minutes Michael Emelyn [facility] Start: 10-26-2022 (Procedure) Short Michael Dunaway [facility] Start: 10-26-2022 End: 10-26-2022 ambulatory Michael Emelyn Other [employer] Other Start: 09-11-2022 End: 09-11-2022 ambulatory Kaitlynn Foy Other [employer] Other Start: 09-11-2022 Office outpatient vi sit 25 minutes Kaitlynn Foy [facility] Start: 09-10-2022 End: 09-10-2022 ambulatory Michael Emelyn Other [employer] Other Start: 09-10-2022 Office outpatient vi sit 15 minutes Michael Emelyn [facility] Start: 08-24-2022 (Procedure) Short Michael Dunaway [facility] Start: 08-24-2022 End: 08-24-2022 ambulatory Michael Emelyn Other [employer] Other Start: 08-03-2022 (Procedure) Short Michael Dunaway [facility] Start: 08-03-2022 End: 08-03-2022 ambulatory Michael Emelyn Other [employer] Other Start: 07-29-2022 End: 07-29-2022 ambulatory Michael Emelyn Other [employer] Other Start: 07-29-2022 Office outpatient vi sit 15 minutes Michael Emelyn [facility] Start: 07-25-[address] ROBERT VAIL Facili ty:[facility] Start: 07-22-2022 (Procedure) Short Michael Dunaway [facility] Start: 07-22-2022 End: 07-22-2022 ambulatory Michael Dunaway Other [employer] Other Start: 07-06-2022 End: 07-07-[address] ROBERT VAIL Facility:[facility] Start: 07-02-2022 End: 07-02-2022 ambulatory Michael Dunaway Other [employer] Other Start: 07-02-2022 Office outpatient vi sit 25 minutes Michael Emelyn [facility] Start: 06-23-2022 (Procedure) Short Michael Dunaway [facility] Start: 06-23-2022 End: 06-23-2022 ambulatory Michael Dunaway Other [employer] Other Start: 06-23-2022 End: 06-23-2022 Admission to same day surgery center DO [facility]ail [facility] Start: 06-18-2022 End: 06-18-2022 ambulatory Michael Dunaway Other [employer] Other Start: 06-18-2022 Office outpatient vi sit 25 minutes Michael Emelyn [facility] Start: 05-05-2022 End: 05-05-2022 Patient encounter procedure DO Robert Vail [facility] Start: 04-30-2022 End: 05-01-[address] ROBERT VAIL Facility:[facility] Start: 04-13-2022 End: 04-14-[address] ROBERT VAIL Facility:[facility] Start: 04-01-2022 End: 04-01-2022 ambulatory Maico Lloyd Other [employer] Other Start: 04-01-2022 Telephone encounter Maico Lloyd [facility] Start: 03-19-2022 End: 03-19-2022 ambulatory Michael Dunaway Other [employer] Other Start: 03-19-2022 Telephone encounter Michael Dunaway [facility] Start: 03-11-2022 End: 03-11-2022 ambulatory Michael Dunaway Other [employer] Other Start: 03-11-2022 Office outpatient vi sit 25 minutes Michaelrancoh Dunaway [facility] Start: 03-04-2022 End: 03-04-2022 Patient encounter procedure Taye VAZQUEZ [facility] [place] Start: 02-25-2022 (Procedure) Short Michael Dunaway [facility] Start: 02-25-2022 End: 02-25-2022 ambulatory Michael Dunaway Other [employer] Other Start: 02-18-2022 End: 02-18-2022 ambulatory Michael Dunaway Other [employer] Other Start: 02-18-2022 Office outpatient ne w 45 minutes Michaelrancho Dunaway [facility] Start: 01-28-2022 End: 01-28-2022 ambulatory Usama Batista Other [employer] Other Start: 01-28-2022 Office outpatient ne w 45 minutes Usama Batista [facility] Start: 01-20-2022 Adult health examination Robert Vail Other [employer] Other Start: 11-07-2021 End: 11-07-2021 ambulatory Quita Simmons Other [facility] [employer] Other Start: 11-07-2021 Office outpatient ne w 20 minutes Quita Simmons [facility] Procedures Date Procedure Procedure Detail Performing Clinician Start: 06-23-2022 Injection of local anesthetic into sacroiliac joint DO Robert Vail Work Phone: Start: 05-05-2022 Capsule endoscopy DO Robert Vail Work Phone: Start: 09-18-2018 Screening for osteoporosis Robert Vail Other Start: 09-13-2017 Cataract extraction and insertion of intraocular lens Taye NILL Start: 08-16-2017 Cataract extraction and insertion of intraocular lens Taye NILL Comment on above: right eye Start: 10-07-2015 Screening mammography Robert Vail Other Start: 04-07-2015 L4-L5 lumbar laminectomy, foraminotomy with facetectomy with decompression L5 nerve roots bilaterally 2 Taye NILL Comment on above: see operative report for further details Start: 01-28-2015 Pre-surgery evaluation Robert Vail Other Start: 01-28-2015 Preoperative cardiovascular examination Robert Vail Other Start: 01-28-2015 Preoperative pulmonary examination Kyle Vail Other Start: 11-28-2009 Colonoscopy Taye NILL Start: 11-28-2004 Colonoscopy Taye NILL Start: 11-28-1964 Craniotomy Taye NILL Arthroplasty of knee Taye NILL Comment on above: left Arthroplasty of knee Taye NILL Comment on above: right Cholecystectomy Taye NILL Chondroplasty Taye NILL Cystoscopy Taye NILL Depression screening Perez Vail Other Esophagogastroduodenoscopy Rony douglas NILL insertion of jaspreet filter Taye NILL Lap sigmoid resection Zina montano NILL orif right femur Taye MURO L Repair of musculoten dinous cuff of shoulder Taye NILL right knee arthroscopy Howard boston NILL Screening for malign ant neoplasm of breast Robert Vail Other Plan of Treatment Date Care Activity Detail Author Start: 06-23-2022 [facility] Work Phone: Start: 05-05-2022 [facility] Work Phone: Patient Education Emelyn Non Diagnostic Blo ck [facility] Work Phone: Patient referral [facility] Work Phone: Immunizations Immunization Date Immunization Notes Care Provider Jonatan hu 08-15-2023 influenza, high dose seasonal, preservative-free Robert Vail Other [employer] Other 10-13-2022 influenza virus vaccine, split virus (incl. purified surface antigen) Robert Vail Other [employer] Other 10-08-2022 influenza, high dose seasonal, preservative-free Robert Vail Other [employer] Other 10-05-2021 COVID-19 Vaccine Pfi zer - Documentation Purposes Only Robert Vail Other [employer] Other 09-02-2021 influenza virus vaccine, split virus (incl. purified surface antigen) Robert Vail Other [employer] Other 02-11-2021 COVID-19 Vaccine Pfi zer - Documentation Purposes Only Robert Vial Other [employer] Other 01-21-2021 COVID-19 Vaccine Pfi zer - Documentation Purposes Only Robert Vail Other [employer] Other 08-25-2020 influenza virus vaccine, split virus (incl. purified surface antigen) Robert Vail Other [employer] Other 08-30-2019 influenza virus vaccine, split virus (incl. purified surface antigen) Robert Vail Other [employer] Other 09-18-2018 influenza virus vaccine, split virus (incl. purified surface antigen) Robert Vail Other [employer] Other 08-17-2017 influenza virus vaccine, split virus (incl. purified surface antigen) Robert Vail Other [employer] Other 07-29-2017 pneumococcal polysaccharide vaccine, 23 valent Robert Vail Other [employer] Other 02-14-2017 influenza virus vaccine, split virus (incl. purified surface antigen) Robert Vail Other [employer] Other 10-07-2015 pneumococcal conjuga te vaccine, 13 valent Robert Vail Other [employer] Other 08-19-2015 influenza virus vaccine, split virus (incl. purified surface antigen) Robert Vail Other [employer] Other 09-19-2014 tetanus and diphther ia toxoids, adsorbed, preservative free, for adult use (5 Lf of tetanus toxoid and 2 Lf of diphtheria toxoid) Robert Vail Other [employer] Other 08-17-2013 tetanus and diphther ia toxoids, adsorbed, preservative free, for adult use (5 Lf of tetanus toxoid and 2 Lf of diphtheria toxoid) Robert Vail Other [employer] Other 08-02-2012 tetanus and diphther ia toxoids, adsorbed, preservative free, for adult use (5 Lf of tetanus toxoid and 2 Lf of diphtheria toxoid) Robert Vail Other [employer] Other 07-03-2009 pneumococcal polysaccharide vaccine, 23 valent Robert Vail Other [employer] Other Payers Date Payer Category Payer Medicare [id number] 2.1 [id number] 1958 Self-pay [id number] 1958 Unknown [id number] 1941 Unknown [id number] 2.16.84 [id number] 1941 Unknown [id number] 2.16.84 [id number] 1941 Unknown [id number] 2.16.84 [id number] 1941 Unknown [id number] 2.16.84 [id number] 1941 Unknown [id number] 2.16.84 [id number] 1941 Unknown [id number] 2.16.84 [id number] 1941 Unknown [id number] Self-pay Self Pay [id number] Unknown [place] [facility] [id number] Social History Date Type Detail Facility Start: 03-04-2022 Tobacco smoking status Ex-smoker (fi nding) [employer] [facility] [place] Sex Assigned At Female [employer] Other Start: 03-24-2022 Tobacco smoking stat us ALIS Never smoked tobacco (finding) [facility] Start: 1940 Sex Assigned At Female [facility] Medical Equipment Procedure Code Equipment Code Equipment Origin al Text Equipment Identifier Dates Capsule endoscopy, for patency of lumen evaluation Video capsule endoscopy system [id number] [facility] Start: 05-05-2022 Goals Date Patient Goal Desired Activity /State Clinical Notes 11-07-2021 to 11-10-2023 Note Date & Type Note Facility 11-10-2023 Evaluation note Encounter Date Diagnosis Assessment Notes Oct, Acute cough (ICD-10 - R05.1) [facility] [employer] Other 10-25-2023 Evaluation note* Encounter Date Diagnosis Assessment Notes Treatment Notes Treatment Clinical Notes Aug, Primary hypertension (ICD-10 - I10) This patient is instructed to consume a healthy, low-fat, low-salt diet. They are also encouraged to continue exercise to achieve/maintain a normal BMI. Patient is instructed on home BP measurements: - rest for 5 minutes w/o talking- positioned w/ feet on floor and arm supported- average best 2/3 readings w/ goal < 135/85 _update office in couple weeks Aug, Type 2 diabetes mellitus with hyperglycemia, without long-term current use of insulin (ICD-10 - E11.65) This patient is following a comprehensive diabetic treatment plan. They are checking their feet daily for calluses and nonhealing ulcers. They are being seen for yearly dilated eye examinations. Goals: SBP less than 130, LDL less than 100, FBS less than 140, A1C less than 7%. They are checking their BS daily, will which are reviewed at the office visit. 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 Aug, Chronic venous hypertension involving right side (ICD-10 - I87.301) Avoid salt and elevate lower extremities, support stockings, inspect legs and feet daily for blisters and ulcerations. 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 Daily dressing changes w/ HH. Aug, Other Continue daily dressing changes Cleanse w/ soap and water. HH to wrap daily until healed. Associated w/ healing ulceration Much improved w/ HH treatment - daily cleansing and wrapping Continue until completely closed, after which time she may return to the vein clinic for additional treatment Discussed compression, pumps etc [employer] Other 10-12-2023 Evaluation note* Encounter Date Diagnosis Assessment Notes Treatment Notes Treatment Clinical Notes Aug, Lumbar spondylosis (ICD-10 - M47.816) [employer] Other 10-02-2023 Evaluation note* Encounter Date Diagnosis Assessment Notes Treatment Notes Treatment Clinical Notes Aug, Pain of right lower extremity (ICD-10 - M79.604) [employer] Other 09-18-2023 Evaluation note* Encounter Date Diagnosis Assessment Notes Treatment Notes Treatment Clinical Notes Jul, Cellulitis of right leg without foot (ICD-10 - L03.115) Elevate as much as possible. Continue Levaquin as prescribed. - instructed to take w/ food, add probiotics and call if develops diarrhea f/u Wound Clinic Jul, Ulcer associated wit h varicose vein, with infection (ICD-10 - I83.209) Keep bandaged, f/u wound clinic for debridement and bandage changes Jul, Primary hypertension (ICD-10 - I10) This patient is instructed to consume a healthy, low-fat, low-salt diet. They are also encouraged to continue exercise to achieve/maintain a normal BMI. Patient is instructed on home BP measurements: - rest for 5 minutes w/o talking- positioned w/ feet on floor and arm supported- average best 2/3 readings w/ goal < 135/85 Jul, Type 2 diabetes mellitus with hyperglycemia, without long-term current use of insulin (ICD-10 - E11.65) This patient is following a comprehensive diabetic treatment plan. They are checking their feet daily for calluses and nonhealing ulcers. They are being seen for yearly dilated eye examinations. Goals: SBP less than 130, LDL less than 100, FBS less than 140, AC and A1C less than 7%. They are checking their BS daily, will which are reviewed at the office visit. Continue regular routine monitoring of A1C,] Microalbumin, Dilated eye exam and Foot exam Jul, Hypercoagulable stat e (ICD-10 - D68.59) Continue w/ Warfarin, checking INR to maintain level 2-3. Instructed to call Med Clinic for adjustments w/ Warfarin (due to antibiotic) Jul, Pain of right lower extremity (ICD-10 - M79.604) [employer] Other 08-22-2023 Evaluation note* Encounter Date Diagnosis Assessment Notes Treatment Notes Treatment Clinical Notes Jun, Dysuria (ICD-10 - R30.0) [employer] Other 08-14-2023 Evaluation note* Encounter Date Diagnosis Assessment Notes Treatment Notes Treatment Clinical Notes Jun, Primary hypertension (ICD-10 - I10) This patient is instructed to consume a healthy, low-fat, low-salt diet. They are also encouraged to continue exercise to achieve/maintain a normal BMI. Jun, Type 2 diabetes mellitus with hyperglycemia, without long-term current use of insulin (ICD-10 - E11.65) This patient is following a comprehensive diabetic treatment plan. They are checking their feet daily for calluses and nonhealing ulcers. They are being seen for yearly dilated eye examinations. Goals: SBP less than 130, LDL less than 100, FBS less than 140, AC and A1C less than 7%. They are checking their BS daily, will which are reviewed at the office visit. Continue regular routine monitoring of A1C,] Microalbumin, Dilated eye exam and Foot exam Jun, KERMIT (obstructive sleep apnea) (ICD-10 - G47.33) This patient is aware of the benefits associated with KERMIT: With continued use, the patient reduces the risk for NH, CVA, HTN, cardiac dysrhythmias and sudden cardiac deaths.The patient is also aware of the association between KERMIT and morning headaches, daytime somnolence, fatigue and obesity, which also has been improved with continued use.The patient is compliant with treatment, wearing the equipment every night for greater than 4 hours.The patient is instructed to continue use of the CPAP for KERMIT treatment. Jun, Hypercoagulable stat e (ICD-10 - D68.59) COntinue Warfarin MOnitor w/ med management clinic: INR 2-3 No bleeding disorder Jun, Chronic venous insufficiency (ICD-10 - I87.2) Avoid salt and elevate lower extremities, support stockings, inspect legs and feet daily for blisters and ulcerations. Jun, Simple chronic bronchitis (ICD-10 - J41.0) Mucinex as needed. Cough and deep breathing exercises Jun, Ulcer associated wit h varicose vein, with infection (ICD-10 - I83.209) 5 sutures removed that were not able to approximate skin. Bleeding w/ macerated skin INstructed to cleanse daily, keep clean and dry. 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 Imodium partially helpful Trial of Colestipol Colonoscopy recently completed for anemia evaluation: negative for colitis or polyps Jun, Other The patient is instructed to avoid bending, twisting or lifting. They are to use intermittent heat and ice as needed. They may schedule a massage or gentle manipulation. They may safely use Tylenol as needed. Diet instructions: Smaller portions, avoid eating and laying flat, avoid eating or drinking prior to bedtime. Weight loss. [facility] Other 06-28-2023 Evaluation note* Encounter Date Diagnosis Assessment Notes Treatment Notes Treatment Clinical Notes Apr, Lumbar spondylosis (ICD-10 - M47.816) The patient is instructed to avoid bending, twisting or lifting. They are to use intermittent heat and ice as needed. They may schedule a massage or gentle manipulation. They may safely use Tylenol as needed. 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 s/p laser treatment of RLL Continue w/ wraps f/u/ Vein Clinic Apr, Hypercoagulable stat e (ICD-10 - D68.59) Continue Eliquis to prevent thromboembolic events. No s/s bleeding Apr, Encounter for wheelchair assessment (ICD-10 - Z76.89) Required WC to complete MRADL. Rx supplied to the patient after her assessment [facility] Other 05-30-2023 Evaluation note* Encounter Date Diagnosis Assessment Notes Treatment Notes Treatment Clinical Notes March, Cellulitis of right lower extremity (ICD-10 - L03.115) [facility] Other 05-12-2023 Evaluation note* Encounter Date Diagnosis Assessment Notes Treatment Notes Treatment Clinical Notes March, Cellulitis of right lower extremity (ICD-10 - L03.115) Elevate and use warm compresses. March, Chronic venous insufficiency (ICD-10 - I87.2) Avoid salt and elevate lower extremities, support stockings, inspect legs and feet daily for blisters and ulcerations. March, Hypercoagulable stat e (ICD-10 - D68.59) Not able to use NSAIDs [facility] Other 04-26-2023 Evaluation note* Encounter Date Diagnosis Assessment Notes Treatment Notes Treatment Clinical Notes Feb, Acute bronchitis due to other specified organisms (ICD-10 - J20.8) Continue Mucinex and AUGUSTINE as needed - explained that coughing may persists for couple weeks - no further antibiotics necessary Feb, HTN (hypertension) (ICD-10 - I10) This patient is instructed to consume a healthy, low-fat, low-salt diet. They are also encouraged to continue exercise to achieve/maintain a normal BMI. Feb, Hypercoagulable stat e (ICD-10 - D68.59) Finish Mendoza and refer to med management clinic in [facility] Other 04-19-2023 Evaluation note* Encounter Date Diagnosis Assessment Notes Treatment Notes Treatment Clinical Notes Feb, Generalized seizure disorder (ICD-10 - G40.309) [facility] Other 04-17-2023 NotePROCEDURE: XR CHEST 2 V DATE: 03/14/2023 1:41 PM CDT COMPARISONS: 05/26/2020 CLINICAL INDICATION: 82 years Female Acute bronchitis FINDINGS: The heart is mildly prominent and stable. The pulmonary vasculature does not appear congested. Large hiatal hernia overlies the lower mediastinum, stable. Slight diffuse increase interstitial markings are noted of the lungs likely representing mild chronic lung changes. No consolidating infiltrates to suggest pneumonia. There is no evidence of pleural effusion or pneumothorax. IMPRESSION: Stable chest. Electronically authenticated by: CELINA JONES Date: 2023-03-14 15:11[facility]04-17-2023 Evaluation note* Encounter Date Diagnosis Assessment Notes Treatment Notes Treatment Clinical Notes Feb, Simple chronic bronchitis (ICD-10 - J41.0) [facility] [employer] Other 04-13-2023 Evaluation note* Encounter Date Diagnosis Assessment Notes Treatment Notes Treatment Clinical Notes Feb, Acute bronchitis due to other specified organisms (ICD-10 - J20.8) Instructed to use Robitussin or Mucinex for cough, saline or Flonase NS for congestion, Tylenol for pain and fever. Feb, Seasonal allergic rhinitis due to pollen (ICD-10 - J30.1) [facility] Other 04-05-2023 Evaluation note* Encounter Date Diagnosis Assessment Notes Treatment Notes Treatment Clinical Notes Feb, Medicare annual wellness visit, subsequent (ICD-10 - Z00.00) Personalized health advice was given to the beneficiary including a written plan for screenings discussed and provided. Advanced care planning reviewed and/or information given as requested. Additional counseling was provided here today in regards to, [ ]. The above visit was performed by [ ], under direct supervision of [ ]. Document reviewed and amended by provider signed below. Feb, HTN (hypertension) (ICD-10 - I10) This patient is instructed to consume a healthy, low-fat, low-salt diet. They are also encouraged to continue exercise to achieve/maintain a normal BMI. Feb, Type 2 diabetes mellitus with hyperglycemia, without long-term current use of insulin (ICD-10 - E11.65) This patient is following a comprehensive diabetic treatment plan. They are checking their feet daily for calluses and nonhealing ulcers. They are being seen for yearly dilated eye examinations. Goals: SBP less than 130, LDL less than 100, FBS less than 140, AC and A1C less than 7%. They are checking their BS daily, will which are reviewed at the office visit. Feb, KERMIT (obstructive sle ep apnea) (ICD-10 - G47.33) This patient is aware of the benefits associated with KERMIT: With continued use, the patient reduces the risk for NH, CVA, HTN, cardiac dysrhythmias and sudden cardiac deaths.The patient is also aware of the association between KERMIT and morning headaches, daytime somnolence, fatigue and obesity, which also has been improved with continued use.The patient is compliant with treatment, wearing the equipment every night for greater than 4 hours.The patient is instructed to continue use of the CPAP for KERMIT treatment. Feb, Hypercholesteremia (ICD-10 - E78.00) Diet and exercise with continued statin therapy. Feb, Generalized seizure disorder (ICD-10 - G40.309) No seizure activity, no longer seeing Neurology. Monitor for now, maintain present treatment Feb, Hypercoagulable stat e (ICD-10 - D68.59) Life long AC No bleeding complications Feb, Lumbosacral spondylo sis (ICD-10 - M47.817) The patient is instructed to avoid bending, twisting or lifting. They are to use intermittent heat and ice as needed. They may schedule a massage or gentle manipulation. They may safely use Tylenol as needed. Feb, Chronic venous insufficiency (ICD-10 - I87.2) Avoid salt and elevate lower extremities, support stockings, inspect legs and feet daily for blisters and ulcerations. Feb, Gastroesophageal ref lux disease with esophagitis without hemorrhage (ICD-10 - K21.00) Diet instructions: Smaller portions, avoid eating and laying flat, avoid eating or drinking prior to bedtime. Weight loss. 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 Consider referral to a neurosurgeon in the future, she denies a referral currently. Jan, Lumbar radiculopathy (ICD-10 - M54.16) 82 year old female here for follow up status post bilateral S1 transforaminal epidural steroid injection under fluoroscopic guidance. Patient reports 60% pain relief as well as improved walking, standing and daily functions for 1 day following procedure. She voices continued complaints of buttock pain with radiation down the posterior aspect of bilateral thighs to the knees. I offered to prescribe Gabapentin however she is already on Keppra for a history of seizures. She also cannot take Tramadol also due to the history of seizures. I offered to prescribe a low dose of Semora, she states she does not want to be on opioid pain medications. She can follow up in 3 months or as needed. 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 Jan, Lumbar radiculopathy (ICD-10 - M54.16) 82 year old female here for follow up status post caudal epidural steroid injection with a Racz catheter and lysis of adhesions under fluoroscopic guidance. Patient reports 90-100% pain relief as well as improved walking, standing and daily functions for 1 day following procedure. She complains of butocks pain with radiation down the posterior aspect of the bilateral lower extremities to the knees. Pertinent imaging of the lumbar spine was reviewed and discussed in detail with the patient which showed severe stenosis of the lumbar spinal canal. Anatomy of spine as well as different treatment options were discussed in detail with patient in regards to patients condition. I recommend we proceed with a bilateral S1 transforaminal epidural steroid injection under fluoroscopic guidance. Risks and benefits of procedure explained to patient; patient verbalizes understanding. Jan, Chronic pain (ICD-10 - G89.29) Follow up after procedure. [facility] Other 02-03-2023 Evaluation note* Encounter Date Diagnosis Assessment Notes Treatment Notes Treatment Clinical Notes Dec, Arthritis of sacroiliac joint (ICD-10 - M47.818) Patient denies any sacral pain today. 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 Patient reports 70-80% pain relief as well as improved walking, standing and daily functions following procedure. She voices complaints of bilateral posterior thigh pain. I recommend proceeding with a caudal epidural steroid injection with a Racz catheter. Risks and benefits of procedure explained to patient; patient verbalizes understanding. Dec, Lumbosacral spondylosis (ICD-10 - M47.817) Stable, she denies any lumbar pain today. Dec, Sacroiliitis (ICD-10 - M46.1) Patient denies any sacral pain today. Dec, Chronic pain (ICD-10 - G89.29) Follow up after procedure. [facility] Other 01-30-2023 Evaluation note* Encounter Date Diagnosis Assessment Notes Treatment Notes Treatment Clinical Notes Nov, Erysipelas (ICD-10 - A46) Start w antibiotic, take entire course. Call if no improvement for other prescription or dermatology referral. 30 Darinel, 2023 Systemic viral illness (ICD-10 - B34.9) Chills and nausea has resolved Continue to monitor symptoms [facility] [facility] Other 01-05-2023 Evaluation note* Encounter Date Diagnosis Assessment Notes Treatment Notes Treatment Clinical Notes Nov, Arthritis of sacroiliac joint (ICD-10 - M47.818) 81 year old female here for follow up status post sacral lateral branch radiofrequency ablation bilaterally at S1, S2, S3 using bipolar radiofrequency under fluoroscopic guidance. Patient reports minimal pain relief as well as improved walking, standing and daily functions following procedure. She continues to complain of low back pain today. She feels her pain is negatively impacting her activities of daily living. I discussed different treatment options with the patient and I recommend that she give the procedure more time as it can take up to 6 weeks for maximum relief. She is encouraged to continue with conservative treatment options such as ice/heat or topical creams as tolerated in the meantime. Nov, Lumbosacral spondylosis (ICD-10 - M47.817) Stable. Continue with current treatment plan. Nov, Sacroiliitis (ICD-10 - M46.1) Continue with conservative treatment at this time. Nov, Chronic pain (ICD-10 - G89.29) Follow up in 4 weeks. [facility] Other 12-06-2022 Evaluation note* Encounter Date Diagnosis Assessment Notes Treatment Notes Treatment Clinical Notes Oct, Arthritis of sacroiliac joint (ICD-10 - M47.818) 81 year old female here for follow up status post bilateral sacral lateral branch nerve block at S1, S2 and S3 as well as L5 dorsal ramus under fluoroscopic guidance. Patient reports 70-80% pain relief as well as improved walking, standing and daily functions for 8 hours following the procedure. She complains of low back pain with radiation down the posterior aspect of the bilateral lower extremities to the knees. Anatomy of spine discussed in detail with patient in regards to patients condition. Patient is a candidate for a right followed by a left sacral lateral RFA under fluoroscopic guidance. Risks and benefits of procedure explained to patient; patient verbalizes understanding. Oct, Lumbosacral spondylosis (ICD-10 - M47.817) Stable. Patient feels lumbar pain is tolerable at this time. Oct, Sacroiliitis (ICD-10 - M46.1) Continue with current treatment plan Oct, Chronic pain (ICD-10 - G89.29) Patient is aware to hold Eliquis for three days prior to each procedure [facility] Other 10-15-2022 Evaluation note* Encounter Date Diagnosis Assessment Notes Treatment Notes Treatment Clinical Notes Aug, Contact with and (suspected) exposure to other viral communicable diseases (ICD-10 - Z20.828) Aug, COVID-19 (ICD-10 - U07.1) COVID PCR test performed in office today. Advised patient that test was positive. Instructed patient to isolate per CDC guidelines for 5 days from symptom onset, mask 5 days following. May return to work/activities outside home after isolation period as long as symptoms are improving and has been afebrile for 24 hours without use of antipyretic. Advised patient that treatment of COVID is with viral supportive care, OTC cold medications as directed, Tylenol/Motrin as needed for body aches/fever, rx of Tessalon Perles as needed. Increase fluids and rest. Encouraged use of cool mist humidifier. Follow-up with PCP to advise of positive result and further management. Immediate eval for SOB, difficulty, chest pain, fevers that do not break with antipyretic or any other concerning symptoms as reviewed on patient education handout. Patient verbalizes understanding and is agreeable to treatment plan. Patient left in stable condition [facility] Other 10-14-2022 Evaluation note* Encounter Date Diagnosis Assessment Notes Treatment Notes Treatment Clinical Notes Aug, Sacroiliitis (ICD-10 - M46.1) If her pain persists or worsens, we can consider other interventional options in the future. Aug, Lumbosacral spondylosis (ICD-10 - M47.817) 81 year old female here for follow up status post lumbar facet medial branch radiofrequency ablation bilaterally at L3, L4 as well as L5 dorsal ramus for denervation of L4-5 and L5-S1 facet joints under fluoroscopic guidance. Patient reports minimal pain relief as well as improved walking, standing and daily functions following procedure. She continues to complain of low back pain today. She also complains of bilateral lower extremity pain. I discussed different treatment options with the patient and I recommend that she give the procedure more time as it can take up to 6 weeks for maximum relief. She is counseled against any excessive bending or twisting. In the meantime, she is encouraged to use ice/heat or topical creams as tolerated for pain. Aug, Chronic pain (ICD-10 - G89.29) Follow up in 4 weeks. [facility] Other 09-01-2022 Evaluation note* Encounter Date Diagnosis Assessment Notes Treatment Notes Treatment Clinical Notes Jul, Sacroiliitis (ICD-10 - M46.1) Stable. Patient denies sacral pain Jul, Lumbosacral spondylosis (ICD-10 - M47.817) 81 year old female here for follow up status post lumbar facet medial branch nerve block bilaterally at the L3 and L4 levels, as well as the L5 dorsal ramus under fluoroscopic guidance. Patient reports 75-80% pain relief as well as improved walking, standing and daily functions for 9 hours following the procedure. She continues to complain of low back pain today as expected. She also notes an ocassional muscle cramp to the bilateral lower extremities, most often at night. Anatomy of spine discussed in detail with patient in regards to patients condition. Patient is a candidate for a confirmatory bilateral lumbar facet MBB under fluoroscopic guidance. Risks and benefits of procedure explained to patient; patient verbalizes understanding. In the meantime, I will prescribe Tizanidine 4mg 1/2-1 tab at bedtime as needed for muscle cramps. Jul, Chronic pain (ICD-10 - G89.29) Continue with current treatment plan. Patient is aware to hold Eliquis for 3 days prior to procedure [facility] Other 08-05-2022 Evaluation note* Encounter Date Diagnosis Assessment Notes Treatment Notes Treatment Clinical Notes Jun, Sacroiliitis (ICD-10 - M46.1) Sacral pain is mild. Jun, Lumbosacral spondylosis (ICD-10 - M47.817) 81 year old female here for follow up status post bilateral sacroiliac joint injection under fluoroscopic guidance. Patient reports 60% pain relief as well as improved walking, standing and daily functions following procedure. She voices continued complaints of residual low back pain with radiation into the buttocks. She reports 80-90% of her lower extremity pain has improved since the procedure. Clinically her residual pain presents as lumbosacral spondylosis. I recommend proceeding with a bilateral lumbar facet medial branch nerve blocks. Risks and benefits of procedure explained to patient; patient verbalizes understanding. Jun, Chronic pain (ICD-10 - G89.29) Continue with current treatment plan Jun, Anticoagulant long-term use (ICD-10 - Z79.01) Patient is aware to hold Eliquis for 3 days prior to procedure [facility] [employer] [facility] Encounter Date Diagnosis Assessment Notes Treatment Notes Treatment Clinical Notes May, Sacroiliitis (ICD-10 - M46.1) 81 year old female here for follow up for chronic pain. She voices complaints of low back pain with radiation down the posterior aspect of the bilateral thighs to the knees. She feels pain can negatively impact her daily activities. Anatomy of spine discussed in detail with patient in regards to patients condition. Patient is a candidate for a bilateral sacroiliac joint injection under fluoroscopic guidance. Risks and benefits of procedure explained to patient; patient verbalizes understanding. May, Lumbosacral spondylosis (ICD-10 - M47.817) In the future if the pain persists, we can consider proceeding with a bilateral lumbar facet medial branch nerve block followed by a RFA if applicable under fluoroscopic guidance. May, Chronic pain (ICD-10 - G89.29) Continue with current treatment plan May, Anticoagulant long-term use (ICD-10 - Z79.01) Patient is aware to hold Eliquis for 3 days prior to procedure [facility] Other 04-14-2022 Evaluation note* Encounter Date Diagnosis Assessment Notes Treatment Notes Treatment Clinical Notes Feb, Chronic pain (ICD-10 - G89.29) Follow up after procedure. Feb, Sacroiliitis (ICD-10 - M46.1) 81 year old female here for follow up status post caudal epidural steroid injection with insertion of a Racz catheter and lysis of adhesions under fluoroscopic guidance. Patient reports 50% pain relief as well as improved walking, standing and daily functions following procedure. She voices complaints low low back pain today. She also notes some pain to the posterior aspect of bilateral thighs. To help relieve her back pain I recommend proceeding with a bilateral SI joint injection. Risks and benefits of procedure explained to patient; patient verbalizes understanding. 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 Feb, Lumbosacral spondylosis (ICD-10 - M47.817) Consider lumbar facet medial branch nerve blocks in the future. [facility] Other 04-07-2022 NoteChief Complaint consultation for iron deficiency anemia HPI Staff 81 year old female presents on consultation from Dr. Vail for iron deficiency anemia. 02/12- HGB 9.4, HCT 32.4, iron 18. 02/22- HGB 9.6, HCT 33. Denies dizziness or lightheadedness. She is SOB with exertion. Denies blood in stool. Patient is taking Warfarin. Last colonoscopy 2009, reported normal perPCP. 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 no SBE prophylaxis, no fmhx of GI malignancy or IBD; no tobacco use. Review of Systems PHQ Score Initial Depression Screen Score: 0 ROS - Provider Constitutional: no fever, no sweats, no weight loss. Eyes: no glasses, no blurred vision, no visual loss. ENMT: no dentures, no hoarseness, no swallowing difficulties, no hearing loss, no ear infection(s),no nose bleeds. Cardiovascular: high blood pressure, no chest pain, regular heartbeat, no heart murmur. Respiratory: yes shortness of breath, no cough, no asthma, no wheezing. Gastrointestinal: no nausea, no vomiting, no diarrhea, no constipation, no blood in stool, no change in bowel habits, no abdominal pain, no hepatitis. Genitourinary: no kidney stones, no urine infection, no dysuria. Musculoskeletal: yes pain, no weakness. Skin: no changing moles, no rash, no skin lumps. Neurologic: no seizures, no epilepsy, no headache. Psychiatric: no emotional or psychiatric problem. Heme/Lymph: no bleeding problems, no anemia, no blood clots, no transfusions. Allergy/Immunologic: no swollen lymph nodes/glands, no IV drug abuse. Other: Additional ROS info: Except as noted in the above Review of Systems and in the History of Present Illness, all other systems have been reviewed and are negative or noncontributory. Physical Exam Vitals & Measurements HR: 72(Peripheral) RR: 20 BP: 160/82 HT: 152.5 cm HT: 152.5 cm WT: 122.6 kg WT: 122.6 kg BMI: 52.72 HEENT: normal conjunctiva, sclera clear, no scleral icterus, EOM intact, PERRLA, oral mucosa moist without lesions. Neck: trachea midline, no mass, symmetric, no thyromegaly or nodules, no adenopathy Respiratory: lungs CTA, respirations non labored. Cardiovascular: regular rate and rhythm, no murmur, no pedal edema or varicosities. Gastrointestinal: obese, soft, non distended, no tenderness, no masses, no palpable hernias, diastasis recti yes, no hepatosplenomegaly; normal bs Lymphatic: no cervical adenopathy, Musculoskeletal: normal gait, digits and nails without infection, nodes, cyanosis, clubbing. Skin: no rashes, no lesions, no ulcers, no subcutaneous nodules, induration. Psychiatric/Neuro: oriented to time, place, person, judgement normal, affect appropriate for age, insight intact, no focal deficits. Tests: labs reviewed, review of old records completed, Discussed surgical options, risks, and possible complications with patient. Assessment/Plan 1. Iron deficiency anemia (D50.9: Iron deficiency anemia, unspecified) plan EGD and colonoscopy under anesthesia for further evaluation, informed consent obtained. 2. 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 3. BMI 50.0-59.9, adult (Z68.43: Body mass index [BMI] 50.0-59.9, adult) recommend diet and exercise. Follow-up No qualifying data available Problem List/Past Medical History Ongoing Acquired spondylolisthesis Adrenal adenoma Anemia, iron deficiency BMI 50.0-59.9, adult Chronic anticoagulation Chronic venous insufficiency CVF (colovesical fistula) Depression Diabetes Extreme obesity GERD (gastroesophageal reflux disease) History of deep vein thrombosis History of pulmonary embolism HTN (hypertension) Hypercoagulable state Hyperlipidemia Iron deficiency anemia Lumbar stenosis with neurogenic claudication Obstructive sleep apnea Osteoporosis Pulmonary hypertension Seizure disorder Historical Cholelithiasis Colovesical fistula CVI (common variable immunodeficiency) Diverticulosis Hyperlipidemia Obesity PE (pulmonary thromboembolism) Seizure SNHL (sensorineural hearing loss) Procedure/Surgical History IOL - Cataract extraction and insertion of intraocular lens (09/13/2017), Cataract extraction and insertion of intraocular lens (08/16/2017), L4-L5 lumbar laminectomy, foraminotomy with facetectomy with decompression L5 nerve roots bilaterally (04/07/2015), C (more content not included)...[facility]Result Comment: Electronically Signed By: GEORGE JENNINGS, Taye Ellington\Date and Time Signed: 03/04/22 12:52 [id number] Evaluation note * Encounter Date Diagnosis Assessment Notes Treatment Notes Treatment Clinical Notes Jan, 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 She states her pain started over 20 years ago with no known inciting trauma, but has significantly increased in the last 3-4 years. She reports prior surgery with Dr. Rivers at [facility] 8 years ago. She also reports prior epidural steroid injections with Dr. Deacon Smallwood and Dr Kothari, last received Nov 2021. She also notes previous physical therapy with minimal relief of her symptoms. She feels pain can negatively impact her ADL's and sleep pattern. Prior to examining the patient, I reviewed progress notes from her referring physician Dr Batista. I also independetly reviewed previous imaging of the lumbar spine which shows mutilevel degenerative disc disease as well as facet arthropathy. Anatomy of spine discussed in detail with patient in regards to patients condition. Patient is a candidate for a caudal epidural steroid injection with a RACZ catheter under fluoroscopic guidance. Risks and benefits of procedure explained to patient; patient verbalizes understanding. Jan, Sacroiliitis (ICD-10 - M46.1) In the future if the pain persists, we can consider proceeding with a bilateral sacroiliac joint injection under fluoroscopic guidance. Jan, Lumbosacral spondylosis (ICD-10 - M47.817) In the future if the pain persists, we can consider proceeding with a bilateral lumbar facet medial branch nerve block followed by a RFA if applicable under fluoroscopic guidance. Jan, Chronic pain (ICD-10 - G89.29) Continue with current treatment plan Jan, Neurogenic claudication due to lumbar spinal stenosis (ICD-10 - M48.062) If her symptoms persist, we can consider other interventional options in the future Jan, Anticoagulant long-term use (ICD-10 - Z79.01) Patient is aware she must hold her Coumadin for 5 days prior to procedure. She will check with her PCP to make sure she will be able to hold this. She must have her PT/INR checked the day prior to procedure. Jan, Other Medical deci arminda making shows a new problem to me with further workup planned or suggested with the potential for extensive treatment options that were considered with the most applicable given this patient's situation as noted above. Treatment options considered include a combination of physical therapy approaches, pharmacologic management, and interventional procedures. Those most applicable to the patient were discussed at this time. Risk of complications and/or morbidity and mortality is high given that acute and chronic pain poses a threat to life and bodily function if undertreated, poorly treated or with failure to maintain adequate treatment and timely followup. Given the serious and fluctuating nature of pain with extensive consideration for whenever pain changes, there always remains the possibility of prolonged functional impairment requiring constant patient reassessment and high-level medical decision making. The amount and complexity of data reviewed is high given that patient labs, radiology reports, and other test were obtained, reviewed and summarized as applicable from the physician portal and/or outside medical records. Pertinent positive and negative findings were considered in medical decision-making. [employer] Other 03-03-2022 Evaluation note* Encounter Date Diagnosis Assessment Notes Treatment Notes Treatment Clinical Notes Jan, Spinal stenosis of lumbar region, unspecified whether neurogenic claudication present (ICD-10 - M48.061) I have independently reviewed the MRI of the lumbar spine and the plain x-ray of the lumbar spine. I have also reviewed the report. The fact that the report says the screws are reported as being loose, I am not totally convinced. The patient I think overall has a solid construct. She has lumbar stenosis above the fusion moderate with foraminal stenosis inferior. I am not certain clinically with pain running down from her back to the back of her knees if this constitutes neurogenic claudication or not. Majority of her pain is lumbar back pain. This has been chronic for years. This patient has propensity for blood clots is and is on lifetime Coumadin. This carries significant risk; she also has advanced age [age] years old and has class III obesity. I am going to send the patient for dynamic x-ray 6 view of the lumbar spine and DEXA scan to check bone quality and schedule a 6-week follow-up. I have also referred her to pain management. Jan, Low back pain, unspecified (ICD-10 - M54.50) Jan, Other chronic pain (ICD-10 - G89.29) Jan, History of lumbar fusion (ICD-10 - Z98.1) Jan, Asymptomatic age-related postmenopausal state (ICD-10 - Z78.0) [employer] Other 2021 Evaluation note* Encounter Date Diagnosis Assessment Notes Treatment Notes Treatment Clinical Notes Oct, Acute left ankle pain (ICD-10 - M25.572) Oct, Achilles tendinitis of left lower extremity (ICD-10 - M76.62) Wear the Mainor wrap for comfort and compression. Take the Medrol Dosepak as prescribed until gone. You may take Tylenol as needed for pain. Follow-up with your family doctor or your orthopedic physician if no improvement in 2 to 3 days [employer] Other Evaluation + Plan note No data available for this section [facility] [place] Evaluation noteNo InformationNort [employer] Other Evaluation noteNo assessment information available [facility] Work Phone: Hisgqpm general Narrative - Reported* Type Description Date Medical History astma Medical History Osteoporosis Medical History HTN (hypertension) Medical History Hypercholesteremia Surgical History BL/CTR Surgical History craniotomy Surgical History rotator cup repair Surgical History rt knee arthosopy,chondroplasty Surgical History colonoscopy Surgical History EGD-2004 Surgical History RT TKA Surgical History Cystoscopy Surgical History ecuadorean sigmoid resection Surgical History cholecystectomy Surgical History IVC filter Surgical History knee replacement left Surgical History fracture repair right femur Hospitalization History see above [employer] Other [facility]an[facility] general Narrative - Reported* Type Description Date Medical History astma Medical History Osteoporosis Medical History HTN (hypertension) Medical History Hypercholesteremia Surgical History BL/CTR Surgical History craniotomy Surgical History rotator cup repair Surgical History rt knee arthosopy,chondroplasty Surgical History Colonoscopy 02/2022 Surgical History EGD-2004 Surgical History RT TKA Surgical History Cystoscopy Surgical History ecuadorean sigmoid resection Surgical History cholecystectomy Surgical History IVC filter Surgical History knee replacement left Surgical History fracture repair right femur Hospitalization History see above [employer] Other Hospital Discharge instructions No data available for this section [facility] [place] Reason for referral (narrative)* Reason Referral for lower e xtremity ulceration Diagnosis 1 Ulcer associated wit h varicose vein, with infection (I83.209) Referral Organization [facility] rachael Referring Provider First Name Robert Referring Provider Last Name Genna Referring Provider Specialty Internal Me dicine Referred Organization [facility] Referred Address [address] [place], [place],[address] Referred Provider Specialty Wound Care Referral Priority Routine General Notes Mrs. Tavarez has chroni c venous insufficiency and suffered a contusion injury to her RLE, which resulted in a nonhealing ulceration. It was sutured by the ER but didn't result in wound closure. She is being referred for debridement and bandaging. She was empirically placed on Mupirocin and Cephalexin. [employer] Other Reason for visit NarrativeReferral Dr. Conley [facility]opathyN[facility] [employer] Other Summary Purpose Family History Relationship Condition Age at Onset Recorded Date/T mg Not Specified Cerebrovascular accident (CVA) Unknown Heart disease Unknown Advance Directives Advance Directive Response Recorded Date/ Time Advance Directives No October 9:37am Hospital Course Note [facility] Clinical Discharge Summary PERSON INFORMATION Name SANDRA TAVAREZ Age 79 Years 1940 Sex FEMALE Language Bulgarian PCP Robert Vail Marital Status Med Service Med/Surg Acct# Arrival 05/23/2020 09:44:18 Visit Reason SURGERY - LEFT TOTAL KNEE Acuity LOS Address: [facility] [place] [address] Comment: PROVIDER INFORMATION VITALS INFORMATION Vital Sign Triage Latest Temp Oral Temp Temporal Temp Intravascular Temp Axillary Temp Rectal 02 Sat 96 % 96 % Respiratory Rate Peripheral Pulse Rate Apical Heart Rate Blood Pressure / 63 mmHg / 68 mmHg Comment: MEDICAL INFORMATION Allergy Info: CeleBREX; penicillin; amoxicillin Prescriptions Given: acetaminophen- oxycodone (Percocet 5/325 oral tablet) 1 tab(s) Oral every 6 hours as needed for pain for 7 Days. Refills: 0. atorvastatin (atorvastatin 20 mg oral tablet) 1 tab(s) Oral every day. furosemide (furosemide 20 mg oral tablet) 1 tab(s) Oral every day. levETIRAc (more content not included)... Note Patient: SANDRA TAVAREZ Age: 79 years Sex: FEMALE : 1940 Associated Diagnoses: None Author: Maico Sandhu DO Postoperative Information Post Operative Note: Post Anesthesia Care Unit. Review / Management Condition: Stable. Assessment Anesthetic outcome No anesthetic complications noted. Plan Transfer/ Discharge: Patient can be discharged from PACU when criteria met. Condition good. [Electronically Signed on: 05/23/2020 16:35 EDT] Maico Sandhu DO [Verified on: 05/23/2020 16:35 EDT] Maico Sandhu DO Procedure Findings Note Patient: SANDRA TAVAREZ Age: 79 years Sex: FEMALE : 1940 Associated Diagnoses: None Author: Maico Sandhu DO Postoperative Information Post Operative Note: Post Anesthesia Care Unit. Review / Management Condition: Stable. Assessment Anesthetic outcome No anesthetic complications noted. Plan Transfer/ Discharge: Patient can be discharged from PACU when criteria met. Condition good. [Electronically Signed on: 05/23/2020 16:35 EDT] Maico Sandhu DO [Verified on: 05/23/2020 16:35 EDT] Maico Sandhu DO Reason for Referral Reason *Waiting for appt Evaluate and Treat Diagnosis 1 Low back pain, unspe cified back pain laterality, unspecified chronicity, unspecified whether sciatica present (M54.50) Diagnosis 2 History of lumbar fu arminda (Z98.1) Diagnosis 3 Spinal stenosis of l umbar region, unspecified whether neurogenic claudication present (M48.061) Referral Organization [facility] Referring Provider First Name Usama Referring Provider Last Name Eusebio Referring Provider Specialty Neurologica l Surgery Referred Organization [facility] Referred Provider Michael Dunaway Referred Address [address],[place] [address] ,[place], [place],[address] Referred Provider Specialty Pain Medicin e Referral Priority Routine General Notes John Pamela Uribe 022 10:55:11 AM >Received today and sent P2P Chief Complaint and Reason for Visit Chief Complaint Iron Deficiency Anem ia Back Pain Additional Source Comments INFORMATION SOURCE (unrecogn ized section and content) DATE CREATED AUTHOR 08/15/2020 [facility] DATE CREATED AUTHOR AUTHOR'S ORGANIZ ATION 03/28/2022 [facility] [place] [facility] DATE CREATED AUTHOR AUTHOR'S ORGANIZ ATION 06/30/2022 [facility] DATE CREATED AUTHOR AUTHOR'S ORGANIZ ATION 04/11/2023 [facility] DATE CREATED AUTHOR AUTHOR'S ORGANIZ ATION 11/06/2023 [facility] EPIC REASON FOR VISIT (unrecogniz ed section and content) Lab resultstemp mlufnazD5N r esults1 month Follow upTBHMedication Questionmessage4 month/suture removaldiscuss wheelchairATBred spot on rightleg/ankle warm to the touch1 weekrefillCOUGHING, WHEEZINGMEDICARE WELLNESSF/U AFTER DEBRA S1 LTRELIQUIS BILATERAL S1 TRANSFORAMINAL EPIDURAL STEROID INJECTIONfollow up after caudal w/raczPossible CellulitisRash/Itchingeliquis caudal epidural steroid injection with a Racz catheter6 week follow upFOLLOW UP AFTER SACRAL LATERAL RFAELIQUIS*LEFT SACRAL LATERAL RFA/ELF/U AFTER DEBRA SACRAL LATERAL NBELIQUISBILATERAL SACRAL LATERAL BRANCH NBIN CAR FEVER, COUGH, H/AFOLLOW UP AFTER DEBRA LUMBAR RFAELIQUIS*DEBRA LUMBAR FACET RFA L4-5, L5-S1/ELELIQUIS*DEBRA LUMBAR FACET MEDIAL BRANCH NERVE BLOCK L3-4, L4-5/ELfollow up after lumbar facet medial branch nerve blockeliquis bilateral lumbar facet medial branch nerve block L3-4, L4-5FOLLOW UP AFTER DEBRA SIELIQUIS*BILATERAL SACROILIAC JOINT INJ/ELINCREASE BACK PAIN RADIATING TO LOWER EXTREMITYMAIL PPW2 WEEK FOLLOW UP AFTER CAUDAL /RACZ COUMADIN CAUDAL EPIDURAL W/RACZREF BY DR USAMA BATISTA FOR SPINAL STENOSIS OF LUMBAR Care Teams (unrecognized sec tion and content) Team Status: Inactive Member Role Status Dates Robert Vail , DO Primary Care Provider Active Michael Dunaway MD Attending Provider Active Team Status: Inactive Member Role Status Dates Robert Vail , DO Primary Care Provider Active Maico Lloyd , Attending Provider Active Team Status: Active Member Role Status Dates Robert Vail , DO Primary Care Provider Active FOR RECORDS PERTAINING TO PATIENTS WHO ARE OR HAVE BEEN ENROLLED IN A CHEMICAL DEPENDENCY/SUBSTANCEABUSE PROGRAM, SOME INFORMATION MAY BE OMITTED. This clinical summary was aggregated from multiple sources. Caution should be exercised in using it in the provision of clinical care. This summary normalizes information from multiple sources, and as a consequence, information in this document may materially change the coding, format and clinical context of patient data. In addition, data may be omitted in some cases. CLINICAL DECISIONS SHOULD BE BASED ON THE PRIMARY CLINICAL RECORDS. [facility] [employer] [facility]. provides no warranty or guarantee of the accuracy or completeness of information in this document.
[2023-12-09 13:30] LABS: SARS-CoV-2 NAA NOT DETECTED (NOT DETECTE)
== END 2023-12-09 12:27 | disposition home or self-care (01) ==
LOC: LAB 12:27
PROVIDERS: PCP Internal Medicine; Visit Provider Internal Medicine
DX: Z20.822 Contact with and (suspected) exposure to COVID-19 (principal)
CPT/HCPCS: 87635

== ENCOUNTER 2023-12-29 00:45 | Outpatient (RCR) | payer MEDICARE, OTHER, SELFPAY | END 2024-01-26 17:15 | disposition home or self-care (01) | LOC: MM 00:45 | PROVIDERS: PCP Internal Medicine; Visit Provider Internal Medicine | DX: Z51.81 Encounter for therapeutic drug level monitoring (principal); Z79.01 Long term (current) use of anticoagulants; I83.813 Varicose veins of bilateral lower extremities with pain | CPT/HCPCS: 85610; G0463 ==

== ENCOUNTER 2024-01-27 01:09 | Outpatient (RCR) | payer MEDICARE, OTHER, SELFPAY | END 2024-02-24 13:08 | disposition home or self-care (01) | LOC: MM 01:09 | PROVIDERS: PCP Internal Medicine; Visit Provider Internal Medicine | DX: I83.813 Varicose veins of bilateral lower extremities with pain (principal); Z51.81 Encounter for therapeutic drug level monitoring; Z79.01 Long term (current) use of anticoagulants; I82.409 Acute embolism and thrombosis of unspecified deep veins of unspecified lower extremity | CPT/HCPCS: 85610; G0463 ==

== ENCOUNTER 2024-02-27 00:06 | Outpatient (RCR) | payer MEDICARE, OTHER, SELFPAY | END 2024-03-27 17:51 | disposition home or self-care (01) | LOC: MM 00:06 | PROVIDERS: PCP Internal Medicine; Visit Provider Internal Medicine | DX: I83.813 Varicose veins of bilateral lower extremities with pain (principal); Z51.81 Encounter for therapeutic drug level monitoring; Z79.01 Long term (current) use of anticoagulants; I82.409 Acute embolism and thrombosis of unspecified deep veins of unspecified lower extremity ==

== ENCOUNTER 2024-02-28 10:46 | Outpatient (OUT) | payer MEDICARE, OTHER, SELFPAY | END 2024-02-28 10:47 | disposition home or self-care (01) | LOC: WC 10:46 | PROVIDERS: PCP Internal Medicine; Visit Provider Podiatrist Foot & Ankle Surgery | DX: L97.922 Non-pressure chronic ulcer of unspecified part of left lower leg with fat layer exposed (principal); I89.0 Lymphedema, not elsewhere classified | CPT/HCPCS: A6213; G0463 ==

== ENCOUNTER 2024-03-26 13:18 | Outpatient (OUT) | payer MEDICARE, OTHER, SELFPAY | END 2024-03-26 13:19 | disposition home or self-care (01) | LOC: WC 13:19 | PROVIDERS: PCP Internal Medicine; Visit Provider Physician Assistant | DX: L97.922 Non-pressure chronic ulcer of unspecified part of left lower leg with fat layer exposed (principal) | CPT/HCPCS: A6213; G0463 ==

== ENCOUNTER 2024-03-28 00:18 | Outpatient (RCR) | payer MEDICARE, OTHER, SELFPAY | END 2024-04-27 11:14 | disposition home or self-care (01) | LOC: MM 00:18 | PROVIDERS: PCP Internal Medicine; Visit Provider Internal Medicine | DX: Z51.81 Encounter for therapeutic drug level monitoring (principal); Z79.01 Long term (current) use of anticoagulants; I82.409 Acute embolism and thrombosis of unspecified deep veins of unspecified lower extremity | CPT/HCPCS: 85610; G0463 ==

== ENCOUNTER 2024-04-16 11:37 | Outpatient (OUT) | payer MEDICARE, OTHER, SELFPAY | END 2024-04-16 11:38 | disposition home or self-care (01) | LOC: WC 11:37 | PROVIDERS: PCP Internal Medicine; Visit Provider Physician Assistant | DX: L97.922 Non-pressure chronic ulcer of unspecified part of left lower leg with fat layer exposed (principal) | CPT/HCPCS: G0463 ==

== ENCOUNTER 2024-04-30 00:21 | Outpatient (RCR) | payer MEDICARE, OTHER, SELFPAY ==
[2024-05-16 11:19] LABS: INR 1.36
== END 2024-05-25 10:42 | disposition home or self-care (01) ==
LOC: MM 00:21
PROVIDERS: PCP Internal Medicine; Visit Provider Internal Medicine
DX: I83.813 Varicose veins of bilateral lower extremities with pain (principal); Z51.81 Encounter for therapeutic drug level monitoring; Z79.01 Long term (current) use of anticoagulants; I82.409 Acute embolism and thrombosis of unspecified deep veins of unspecified lower extremity
CPT/HCPCS: 36415; 85610; G0463

== ENCOUNTER 2024-04-30 12:35 | Outpatient (OUT) | payer MEDICARE, OTHER, SELFPAY ==
[2024-04-30 13:39] LABS: Basophils Percent Auto 0.7 % (0.2-2.0); Eosinophils Absolute Auto 0.1 10^3/uL (0.0-0.7); Eosinophils Percent Auto 1.9 % (0.9-7.0); Hematocrit 39.8 % (36.0-48.0); Immature Granulocytes Abs Auto 0.02 10^3/uL (0.00-0.03); Immature Granulocytes Pct Auto 0.4 % (0.0-0.5); Lymphocytes Percent Auto 17.8 % (20.5-60.0); Mean Corpuscular HGB Conc 32.7 g/dL (29.9-35.2); Mean Corpuscular Hemoglobin 30.1 pg (26.7-34.0); Mean Corpuscular Volume 92.1 fL (81.0-99.0); Mean Platelet Volume 10.5 fL (9.5-13.5); Monocytes Absolute Auto 0.6 10^3/uL (0.3-0.8); Monocytes Percent Auto 10.3 % (1.7-12.0); Neutrophils Absolute Auto 3.7 10^3/uL (1.4-6.5); Neutrophils Percent Auto 68.9 % (43.0-75.0); Platelet Count 188 10^3/uL (150-450); Red Blood Count 4.32 10^6/uL (4.20-5.40); Red Cell Distribution Width 13.6 % (11.0-15.0); White Blood Count 5.3 10^3/uL (4.0-11.0)
[2024-04-30 13:58] LABS: Estimated Average Glucose 137 mg/dL; Glycohemoglobin A1C 6.4 % (4.5-6.2)
[2024-04-30 14:54] LABS: Alanine Aminotransferase 25 U/L (14-59); Albumin Level 3.5 g/dL (3.4-5.0); Alkaline Phosphatase 89 U/L (46-116); Anion Gap 13.9; Aspartate Amino Transferase 21 U/L (15-37); BUN Creatinine Ratio 22.5; Bilirubin Total 1.1 mg/dL (0.2-1.0); Calcium 9.3 mg/dL (8.5-10.1); Carbon Dioxide 26.1 mmol/L (21.0-32.0); Chloride 105 mmol/L (98-107); Chol HDL Ratio 1.8; Cholesterol 123 mg/dL (<=200); Estimated GFR (African America >60 (>=60); Estimated GFR (Non-African Ame >60 (>=60); Globulin 3.4 g/dL; Glucose 96 mg/dL (74-106); HDL Cholesterol 70 mg/dL (40-60); Sodium 141 mmol/L (136-145); Thyroid Stimulating Hormone 0.705 uIU/mL (0.358-3.740); Total Protein 6.9 g/dL (6.4-8.2); Triglycerides 53 mg/dL (<=150); VLDL CHOLESTEROL 10.6 mg/dL
== END 2024-04-30 12:36 | disposition home or self-care (01) ==
LOC: LAB 12:36
PROVIDERS: PCP Internal Medicine; Visit Provider Internal Medicine
DX: E78.00 Pure hypercholesterolemia, unspecified (principal); I10 Essential (primary) hypertension; E11.65 Type 2 diabetes mellitus with hyperglycemia; G40.309 Generalized idiopathic epilepsy and epileptic syndromes, not intractable, without status epilepticus
CPT/HCPCS: 36415; 80053; 80061; 83036; 84443; 85025

== ENCOUNTER 2024-05-07 16:38 | Outpatient (OUT) | payer MEDICARE, OTHER, SELFPAY ==
--- OUTSIDE RECORDS SUMMARY | 2024-05-07 16:57 | XMS_ITS | CCD ---
Author Organization [facility] Inform ion Partnership [facility] Care Team Providers Care Rand Maker Name Role Phone ROBERT VAIL Primary Care Physician Quita Simmons Unavailable Usama Batista Unavailable Michael Dunaway Unavailable Maico Lloyd Unavailable DO Robert Vail Primary Care Provider [phone] DO Maico Lloyd Attending Provider MD Michael Dunaway Attending Provider Kaitlynn Foy Unavailable Ursula Velarde Unavailable Robert Vail Unavailable Ivon Batista Unavailable GENNA, DR CABAN Admitting Unavailable BALL, DR CABAN Attending Unavailable BALL, DR CABAN Primary Care Unavailable GENNA, DR CABAN Consulting Unavailable CAROLEBNANCY, DR NIDA Lopez Consulting Unavailable GENNA, DR CABAN Admitting Unavailable BALL, DR CABAN Attending Unavailable BALL, DR CABAN Primary Care Unavailable BALL, DR CABAN Consulting Unavailable GENNA, DR CABAN Admitting Unavailable BALL, DR CABAN Attending Unavailable BALL, DR CABAN Primary Care Unavailable GENNA, DR CABAN Consulting Unavailable ANTONIO, DR NIDA Lopez Consulting Unavailable GENNA, DR CABAN Admitting Unavailable BALL, DR CABAN Attending Unavailable GENNA, DR CABAN Primary Care Unavailable GENNA, DR CABAN Consulting Unavailable FEIDERCELINA Consulting Unavailable GENNA, DR CABAN Admitting Unavailable BALL, DR CABAN Attending Unavailable BALL, DR CABAN Primary Care Unavailable BALL, DR CABAN Admitting Unavailable BALL, DR CABAN Attending Unavailable BALL, DR CABAN Primary Care Unavailable GNENA, DR CABAN Consulting Unavailable DO Robert Vail Primary Care Provider MD Juancarlos Campbell Attending Provider Juancarlos Campbell Attending Unavailable Juancarlos Campbell Admitting Unavailable Robert Vail Primary Care Unavailable DO Robert Vail Primary Care Provider MD Juancarlos Campbell Attending Provider FÉLIX MUNROE Attending Unavailable ZAYNAB JUÁREZ Referring Unavailable JR. SILVA GEORGE C Attending Unavaila ble MAYTE MARLOW Attending Unavailable JR. SILVA GEORGE C Referring Unavaila ble Allergies Allergy Classification Reported Allergen(s) Allergy Type Date of Onset Reaction(s) Facility (1 source) Adhesive Tape Drug allergy rash [facility] (20 sources) celecoxib; 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: [celecoxib] Drug Allergy 05-05-20 22 rash, Hives, Unknown [facility] (1 source) Penicillins; 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: [penicillins] Drug allergy [facility] Comment on above: Pt. states PCN does n't work for me, it just doesn't work (20 sources) Penicillin G Drug Allergy rash [facility] Other (7 sources) Penicillins; 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: [Penicillins] Allergy to substance 12-04-19 14 [facility] (2 sources) celecoxib Drug Allergy 12-04-19 14 [facility] (1 source) Citalopram Drug Allergy [facility] (1 source) Desonide Drug Allergy [facility] (20 sources) Citalopram Drug Allergy 12-27-19 24 Unknown, [facility] (18 sources) Penicillin Drug Allergy 08-17-20 13 Unknown [facility] Other (1 source) Substance with penicillin structure and antibacterial mechanism of action (substance) Drug allergy Unknown [facility] Other (1 source) patient allergy list reviewed by nurse or physicia Propensity to adverse reactions 09-19-20 14 Comment:Done [facility] Other (1 source) celecoxib Drug Allergy 05-05-20 [facility] (1 source) Citalopram Drug Allergy 12-27-19 24 [facility] Medications Current Medications Medication Drug Class(es) Dates Sig (Normalized) Sig (Original) AeroChamber Mini Chamber - (20 sources) Start: 03-14-2023 AeroChamber Mini Chamber - Use with MDI inhaled Use q 4 hours as needed for cough for 30 days Feb, Active [id number] 200 actuat albuterol 0.09 mg/actuat metered dose inhaler (20 sources) beta2-Adrenergic Agonist Start: 02-14-2024 take 1 puff(s) by inhalation every four hours Albuterol Sulfate Active 2 PUFF INHALATION Every 4 hours February 14, 2024 12:00am Start: 03-14-2023 take 2 puff(s) by in [...] (20 sources) HMG-CoA Reductase Inhibitor Start: 03-27-2015 End: 03-12-2024 take 20 mg by mouth once daily Atorvastatin Active 20 MG PO Daily March 12, 2024 6:04pm colestipol hydrochloride 1000 mg oral tablet (19 sources) Bile Acid Sequestrant Start: 02-14-2024 take 2 g by mouth once daily Colestipol Active 2 GM PO Daily February 14, 2024 12:00am Start: 07-11-2023 take 2 tablets by [facility] every twenty-four hours Colestipol HCl 1 GM 2 tablets Orally Once a day for 30 days Jun, Active take 2 tablets by [facility] every twenty-four hours Colestipol HCl 1 GM 2 tablets Orally Once a day for 90 days Active doxycycline hyclate 100 mg oral capsule (20 sources) Tetracycline-class Drug Start: 02-15-2024 take 100 mg by mouth twice daily Doxycycline Hyclate Active 100 MG PO Twice daily 16 09February 15, 2024 12:00am Start: 04-08-2023 take 1 capsule by [facility] twice daily as needed Doxycycline Hyclate 100 MG 1 capsule Orally twice daily for 7 days March, Not-Taking/PRN Start: 05-05-2022 End: 06-23-2022 take 100 mg by mouth once daily Doxycycline Hyclate Discontinued 100 MG PO Daily May 05, 2022 12:00am June 23, 2022 10:21am fexofenadine hydrochloride 180 mg oral tablet (8 sources) Histamine-1 Receptor Antagonist Start: 02-14-2024 take 1 tablet by mouth once daily Fexofenadine (Carole Allergy) 180 mg tablet Active 180 MG PO Daily February 14, 2024 12:00am Start: 03-10-2023 take 1 tablet by mouth once da farrukh Carole Allergy 180 MG 1 tablet Swallow whole with water; do not take with fruit juices. Orally Once a day for 30 days Feb, Active furosemide 40 mg oral tablet (20 sources) Loop Diuretic Start: 02-14-2024 take 40 mg by mouth once daily Furosemide Active 40 MG PO Daily February 14, 2024 12:00am Start: 03-03-2022 take 1 tablet by [facility] twice daily Lasix 20 mg Tab 20 mg = 1 tab(s), Oral, BID, Refills(s) 0 Start Date: 03/03/22 Status: Ordered take 1 tablet by [facility] every twenty-four hours Furosemide 40 MG 1 tablet Orally Once a day Active Inhalational Spacing Device (Aerochamber Mini) spacer (2 sources) Start: 02-14-2024 Inhalational S pacing Device (Aerochamber Mini) spacer Active 0 .Route February 14, 2024 12:00am As directed levETIRAcetam 500 mg oral tablet (20 sources) Start: 03-12-2024 End: 03-12-2024 take 750 mg by mouth twice daily Levetiracetam Active 750 MG PO Twice daily 270 90 March 12, 2024 6:04pm Start: 02-14-2024 End: 03-12-2024 take 500 mg by mouth twice daily Levetiracetam Discontinued 500 MG PO Twice daily February 14, 2024 1:04pm March 12, 2024 5:05pm Start: 02-14-2024 End: 03-12-2024 take 750 mg by mouth once daily Levetiracetam Disconti nued 750 MG PO Daily February 14, 2024 12:00am March 12, 2024 5:05pm Start: 05-05-2022 End: 02-14-2024 take 500 mg by mouth once daily Levetiracetam Disconti nued 500 MG PO Daily May 05, 2022 12:00am February 14, 2024 1:06pm Start: 11-20-2014 take 1 capsule by mo [facility] twice daily at bedtime Keppra 500 mg Tab 500 mg = 1 tab(s), Oral, BID, 1 caps in AM 1 cap at bedtime, Refills(s) 0, Seizure Start Date: 11/20/14 Status: Ordered take 1 tablet by [facility] every eight hours Keppra 500 MG 1 tablet Orally tid Not-Taking levoFLOXacin 750 mg oral tablet (13 sources) Quinolone Antimicrobial take 1 tablet by mouth every twenty-four hours levoFLOXacin 750 MG 1 tablet Orally Once a day Active losartan potassium 50 mg oral tablet (20 sources) Angiotensin 2 Receptor Kareem Start: End: take 50 mg by mouth once daily Losartan Active 50 MG PO Daily March 12, 2024 6:05pm take 1 tablet by [facility] every twenty-four hours Losartan Potassium 25 MG 1 tablet Orally Once a day Active methylPREDNISolone 4 mg oral tablet (1 source) Corticosteroid Start: 11-07-2021 Medrol 4 MG as directed Orally as directed for 6 days Oct, Active polysaccharide iron complex 150 mg oral capsule (20 sources) Start: 06-22-2022 End: 02-15-2024 Polysaccharide Iron Complex (Ferrex 150) 150 mg iron capsule Active 150 MG PO Daily February 15, 2024 3:00pm Start: 03-03-2022 take 1 capsule by [facility] once daily Ferrex-150 oral capsule 150 mg = 1 cap(s), Oral, Daily, Refills(s) 0 Start Date: 03/03/22 Status: Ordered take 1 capsule by [facility] every other day IFerex 150 150 MG 1 capsule Orally qod for 30 days Active take 1 capsule by [facility] once daily IFerex 150 150 MG take 1 capsule by mouth once daily for 30 Not-Taking take 1 capsule by [facility] once daily IFerex 150 150 MG 1 capsule Orally Once a day Active potassium chloride 10 meq extended release oral capsule (20 sources) Start: 05-05-2022 End: 03-12-2024 take 10 mEq by mouth once daily Potassium Chloride Active 10 MEQ PO Daily March 12, 2024 6:05pm Start: 03-27-2015 take 1 tablet by mouth [...] at bedtime for 30 days Jul, Active warfarin sodium 5 mg oral tablet (20 sources) Vitamin K Antagonist Start: 08-15-2017 take 1 tablet by mouth every twenty-four hours Warfarin Sodium 5 MG 1 tablet Orally Once a day March, Active take 1 tablet by mouth two times weekly Coumadin 5 5 MG 1 tablet Orally Two times a Week Active Completed/Discontinued Medications Medication Drug Class(es) Dates Sig (Normalized) Sig (Original) acetaminophen 325 mg / HYDROcodone bitartrate 5 mg oral tablet (12 sources) Opioid Agonist Start: 02-14-2024 End: 03-29-2024 take 1 tablet by mouth twice daily Hydrocodone-Acetami nophen Discontinued 1 TAB PO Twice daily February 14, 2024 12:00am March 29, 2024 11:00am Start: 09-08-2023 take 1 tablet by [facility]ika [facility] twice daily as needed HYDROcodone-Acetaminophen 5-325 MG 1 tab let as needed Orally twice daily for 14 days Aug, Active alendronic acid 5 mg oral tablet (20 sources) Bisphosphonate Start: 02-14-2024 End: 03-29-2024 Alendronate Discontinued 5 MG PO February 14, 2024 12:00am March 29, 2024 11:00am 1 tablet 30 minutes before the first food, beverage or medicine of the day with plain water Orally Once a day Start: 05-05-2022 End: 06-23-2022 take 70 mg by mouth every week Alendronate Discontinue d 70 MG PO every week May 05, [...] tablet Orally for 5 days Nov, Not-Taking/PRN benzonatate 100 mg oral capsule (20 sources) Non-narcotic Antitussive Start: 02-14-2024 End: 04-30-2024 take 100 mg by mouth three times daily Benzonatate Discontinued 100 MG PO Three times daily February 14, 2024 12:00am April 30, 2024 3:05pm Start: 02-14-2024 End: 04-30-2024 take 200 mg by mouth three times daily Benzonatate Discontinued 200 MG PO Three times daily February 14, 2024 12:00am April 30, 2024 3:05pm Start: 11-10-2023 take 1 capsule by [facility] every eight hours Benzonatate 100 MG 1 capsule as needed Orally Three times a day for 10 days Oct, Active Start: 03-10-2023 take 1 capsule by [facility] every eight hours Benzonatate 200 MG 1 capsule Orally Three times a day for 10 13 Feb, 2023 Active Start: 09-11-2022 take 1 capsule by mo [facility] every eight hours Tessalon Perles 100 MG 1 capsule as needed Orally Three times a day for 7 days Aug, Active cephalexin 500 mg oral capsule (19 sources) Cephalosporin Antibacterial Start: 07-11-2023 take 1 capsule by mouth twice daily as needed Cephalexin 500 MG 1 capsule Orally twice daily for 14 days Jun, Not-Taking/PRN Start: 09-27-2016 take 1 capsule by [facility] every twelve hours Cephalexin 500 MG 1 tablet Orally Twice a day for 7 days Aug, Not-Taking codeine phosphate 2 mg/ml / guaiFENesin 20 mg/ml oral solution (20 sources) Opioid Agonist Start: 03-14-2023 take 10 mL by mouth every six hours as needed for cough guaiFENesin-Codeine 100-10 MG/5ML 10 mL as needed Orally every 6 hours as needed for cough Feb, Not-Taking/PRN ferrous sulfate 325 mg oral tablet (5 sources) Start: 06-23-2022 End: 06-23-2022 take 325 mg by mouth once daily Ferrous Sulfate Discontinued 325 MG PO Daily June 23, 2022 12:00am June 23, 2022 10:22am [facility] Iron 325 (65 [...] 10:21am Start: 04-10-2015 take 1 capsule by [facility] twice daily Dilantin 100 mg Cap-ER 100 mg = 1 cap(s), Oral, BID, Refills(s) 0, Seizure Start Date: 04/10/15 Status: Ordered take 1 capsule by [facility] every twelve hours Dilantin 100 MG 1 capsule Orally every 12 hrs Not-Taking take 1.5 tablets by mouth every six hours Phenytoin 50 MG 1.5 tablets Orally Four times a day Active traMADol hydrochloride 50 mg oral tablet (15 sources) Opioid Agonist Start: 02-14-2024 End: 03-29-2024 take 50 mg by mouth once daily at bedtime Tramadol Discontinued 50 MG PO Daily at bedtime February 14, 2024 12:00am March 29, 2024 11:00am Start: 08-29-2023 take 1 tablet by [facility] once daily at bedtime as needed traMADol HCl 50 MG 1 tablet as needed Orally Once a day at bedtime for 14 days Aug, Active Start: 08-15-2023 take 1 tablet by [facility] once daily at bedtime as needed traMADol HCl 50 MG 1 tablet as needed Orally Once a day at bedtime for 14 days Jul, Active Problems Active Problems Problem Classification Problem Date Documented Date Episodic/Chronic Abdominal hernia (1 source) Diaphragmatic hernia; 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: [Diaphragmatic hernia without mention of obstruction or gangrene] Episodic Acute bronchitis (7 sources) Acute bronchitis due to other specified organisms; 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: [Acute bronchitis] Onset: Episodic Administrative/social admission (2 sources) Persons encountering health services in other specified circumstances Episodic Asthma (2 sources) Asthma - currently active; 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: [Unspecified asthma, uncomplicated] 02-14-2024 Chronic Biliary tract disease (2 sources) Biliary calculus; 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] 11-20-2014 Episodic Chronic obstructive pulmonary disease and bronchiectasis (20 sources) Simple chronic bronchitis; 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: [Simple chronic bronchitis] Chronic Chronic ulcer of skin (9 sources) Non-pressure chronic ulcer of right calf limited to breakdown of skin; 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: [Non-pressure chronic ulcer of right calf limited to breakdown of skin] Chronic Coagulation and hemorrhagic disorders (20 sources) Hypercoagulability state; 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: [Other primary thrombophilia] Onset: 7 03-03-2022 Chronic Complications of surgical procedures or medical care (2 sources) Infection following a procedure, other surgical site, initial encounter; 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: [Other complications of procedures, not elsewhere classified, initial encounter] 02-15-2024 Episodic Congestive heart failure; nonhypertensive (1 source) [...] [Gastro-esophageal reflux disease with esophagitis] 03-03-2022 Chronic Essential hypertension (20 sources) Hypertensive disorder; 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: [...] sources) Long-term current use of anticoagulant; 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] Onset: 2 Episodic Other aftercare (5 sources) 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; 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: [Long-term (current) use of anticoagulants] Onset: 2 Resolved: 2 Episodic Other aftercare (1 source) Long-term current use of drug therapy; 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: [Other halfway (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 therapy] Episodic Other and unspecified [...] [Arthrodesis status] Episodic Other connective tissue disease (4 sources) Pain in calf; 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: [Pain in unspecified lower leg] 03-24-2022 Episodic Other connective tissue disease (1 source) Neuralgia; 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: [Unspecified neuralgia, neuritis, and radiculitis] Episodic Other connective tissue disease (1 source) Spasm; 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: [Other muscle spasm] Episodic Other connective tissue disease (2 sources) Pain in right leg Episodic Other connective tissue disease (1 source) Ischial bursitis ; 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: [Other bursitis of hip, unspecified hip] 04-30-2024 Episodic Other connective tissue disease (1 source) Other bursitis of hip, unspecified hip; 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: [Enthesopathy of hip region] 04-30-2024 Episodic Other diseases of bladder and urethra (2 sources) 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 Other diseases of bladder and urethra (2 sources) Intestinovesical fistula; 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] Chronic Other diseases of veins and lymphatics (1 source) Chronic venous hypertension (idiopathic) without complications of unspecified lower extremity; 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: [Chronic venous hypertension (idiopathic) without complications of unspecified lower extremity] Chronic Other diseases of veins and lymphatics (9 sources) Chronic peripheral venous hypertension; 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: [Chronic venous hypertension (idiopathic) without complications of right lower extremity] 02-14-2024 Chronic Other diseases of veins and lymphatics (1 source) Chronic venous hypertension (idiopathic) without complications of right lower extremity Chronic Other diseases of veins and lymphatics (20 sources) Peripheral venous insufficiency; 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: [Venous insufficiency (chronic) (peripheral)] Onset: 4 03-03-2022 Episodic Other diseases of veins and lymphatics (6 sources) Venous insufficiency (chronic) (peripheral); 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: [Venous (peripheral) insufficiency, unspecified] Episodic Other diseases of veins and lymphatics [...] history of fall] Onset: 6 Episodic Other lower respiratory disease (6 sources) Dyspnea; 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: [Shortness of breath] Onset: 4 03-24-2022 Episodic Other nervous system disorders (20 sources) Chronic pain; 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: [Other chronic pain] 02-14-2024 Chronic Other nervous system disorders (13 sources) Other chronic pain; 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: [Other chronic pain] Onset: 2 Resolved: 2 Chronic Other nervous [...] pollen; 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: [Allergic rhinitis due to pollen] 02-14-2024 Chronic Other upper respiratory disease (1 source) Allergic rhinitis due to pollen Chronic Other upper respiratory disease (1 source) Seasonal allergic rhinitis; 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: [Other seasonal allergic rhinitis] Onset: 6 Chronic Other upper respiratory disease (1 source) Other specified disorders of nose and nasal sinuses Episodic Carmina-; endo-; and myocarditis; cardiomyopathy (except that [...] (adult) (pediatric)] 04-07-2015 Chronic Residual codes; unclassified (4 sources) Obstructive sleep apnea (adult) (pediatric); 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: [Obstructive sleep apnea (adult)(pediatric)] Chronic Residual codes; unclassified (1 source) Family [...] 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: [Acute candidiasis of vulva and vagina] Unclassified (1 source) Infection following a procedure, unspecified, initial encounter; 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: [Infection following a procedure, unspecified, initial encounter] Onset: 4 Varicose veins of lower extremity (20 sources) [...] 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: [Impaired fasting glucose] Resolved: 01-05-2021 Episodic Esophageal disorders (3 sources) Esophageal disorders; 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: [Gastro-esophageal reflux disease with esophagitis, without bleeding] Fluid and electrolyte disorders (1 source) Hypokalemia; [...] of unspecified site] Onset: 03-20-2014 Episodic Other nervous system disorders (1 source) [...] 01-28-2022 Unclassified (1 source) Acute cough R05.1 Unclassified (1 source) Suspected COVID-19 virus infection Z20.822 Results Test Name Value Interpretation Reference Range Facility Basophils Auto (Bld) [#/Vol] on 04-30-2024 Basophils (Bld) [#/Vol] 0.0 10 3/uL 0.0-0.1 [facility] Basophils/100 WBC Auto (Bld) on 04-30-2024 Basophils/100 WBC (Bld) 0.7 % 0.2-2.0 [facility] Cholesterol in LDL Calc [Mas s/Vol]on 04-30-2024 Cholesterol in LDL [Mass/Vol] 43.0 mg/dL [facility] Comment on above: <100 mg/dl [id number] 0-129 mg/dl NEAR OR ABOVE [id number] mg/dl BORDERLINE [id number] mg/dl HIGH>190 mg/dl VERY HIGH Cholesterol in VLDL Calc [Ma ss/Vol]on 04-30-2024 Cholesterol in VLDL [Mass/Vol] 10.6 mg/dL [facility] Eosinophils/100 WBC Auto (Bl d)on 04-30-2024 Eosinophils/100 WBC (Bld) 1.9 % 0.9-7.0 [facility] Erythrocyte distribution wid th Auto (RBC) [Ratio]on 04-30-2024 Erythrocyte distribution width (RBC) [Ratio] 13.6 % 11.0-15.0 [facility] Estimated glomerular filtrat ion rate (GFR) non- Americanon 04-30-2024 GFR/1.73 sq M.predicted among non-blacks MDRD (S/P/Bld) [Vol rate/Area] mL/min/{1.73_m2} >=60 [facility] Globulin Calc (S) [Mass/Vol] on 04-30-2024 Globulin (S) [Mass/Vol] 3.4 g/dL [facility] Glucose mean value [Mass/vol ume] in Blood Estimated from glycated hemoglobinon 04-30-2024 Average glucose Estimated from glycated hemoglobin (Bld) [Mass/Vol] 137 mg/dL [facility] Hematocrit Auto (Bld) [Volum e fraction]on 04-30-2024 Hematocrit (Bld) [Volume fraction] 39.8 % 36.0-48.0 [facility] Hemoglobin [Mass/volume] in Bloodon 04-30-2024 Hemoglobin (Bld) [Mass/Vol] 13.0 g/dL 12.0-16.0 [facility] Laboratory - Chemistry and C hemistry - challengeon 04-30-2024 Albumin [Mass/Vol] 3.5 g/dL 3.4-5.0 [facility] ALP [Catalytic activity/Vol] 89 U/L 46-116 [facility] ALT [Catalytic activity/Vol] 25 U/L 14-59 [facility] AST [Catalytic activity/Vol] 21 U/L 15-37 [facility] Bilirubin [Mass/Vol] 1.1 mg/dL 0.2-1.0 [facility] Calcium [Mass/Vol] 9.3 mg/dL 8.5-10.1 [facility] Chloride [Moles/Vol] 105 mmol/L 98-107 [facility] Cholesterol [Mass/Vol] 123 mg/dL <=200 [facility] Cholesterol in HDL [Mass/Vol] 70 mg/dL 40-60 [facility] Comment on above: > or =60 mg/dl - LOW CARDIOVASCULAR RISK<40 mg/dl - HIGH CARDIOVASCULAR RISK CO2 [Moles/Vol] 26.1 mmol/L 21.0-32.0 [facility] Creatinine [Mass/Vol] 0.71 mg/dL 0.55-1.02 [facility] GFR/1.73 sq M.predicted MDRD (S/P/Bld) [Vol rate/Area] mL/min/{1.73_m2} >=60 [facility] Glucose [Mass/Vol] 96 mg/dL 74-106 [facility] Potassium [Moles/Vol] 4.0 mmol/L 3.5-5.1 [facility] Protein [Mass/Vol] 6.9 g/dL 6.4-8.2 [facility] Sodium [Moles/Vol] 141 mmol/L 136-145 [facility] Triglyceride [Mass/Vol] 53 mg/dL <=150 [facility] TSH Qn 0.705 m[IU]/L 0.358-3.740 [facility] Urea nitrogen [Mass/Vol] 16.0 mg/dL 7.0-18.0 [facility] Urea nitrogen/Creatinine [Mass ratio] 22.5 mg/mg [facility] Laboratory - Hematology and Cell countson 04-30-2024 HbA1c (Bld) [Mass fraction] 6.4 % 4.5-6.2 [facility] Comment on above: ADA RECOMMENDED LIMI T 4.0 - 6.0ADA THERAPEUTIC TARGET < 7.0ACTION SUGGESTED> 7.0 Immature granulocytes/100 WBC (Bld) 0.4 % 0.0-0.5 [facility] Leukocytes [#/volume] correc torri for nucleated erythrocytes in Blood by Automated counon 04-30-2024 WBC corrected for nucl RBC Auto (Bld) [#/Vol] 5.3 10 3/uL 4.0-11.0 [facility] Lymphocytes Auto (Bld) [#/Vo l]on 04-30-2024 Lymphocytes (Bld) [#/Vol] 1.0 10 3/uL 1.2-3.8 [facility] Lymphocytes/100 WBC Auto (Bl d)on 04-30-2024 Lymphocytes/100 WBC (Bld) 17.8 % 20.5-60.0 [facility] MCH Auto (RBC) [Entitic mass ]on 04-30-2024 MCH (RBC) [Entitic mass] 30.1 pg 26.7-34.0 [facility] MCHC Auto (RBC) [Mass/Vol]on 04-30-2024 MCHC (RBC) [Mass/Vol] 32.7 g/dL 29.9-35.2 [facility] MCV Auto (RBC) [Entitic vol] on 04-30-2024 MCV (RBC) [Entitic vol] 92.1 fL 81.0-99.0 [facility] Monocytes Auto (Bld) [#/Vol] on 04-30-2024 Monocytes (Bld) [#/Vol] 0.6 10 3/uL 0.3-0.8 [facility] Monocytes/100 WBC Auto (Bld) on 04-30-2024 Monocytes/100 WBC (Bld) 10.3 % 1.7-12.0 [facility] Neutrophils Auto (Bld) [#/Vo l]on 04-30-2024 Neutrophils (Bld) [#/Vol] 3.7 10 3/uL 1.4-6.5 [facility] Neutrophils/100 WBC Auto (Bl d)on 04-30-2024 Neutrophils/100 WBC (Bld) 68.9 % 43.0-75.0 [facility] No Panel Informationon 04-30 Eosinophils # (Auto) 0.1 10 3/uL 0.0-0.7 [facility] Immature Granulocyte # (Auto) 0.02 10 3/uL 0.00-0.03 [facility] [facility] Platelet mean volume Auto (B ld) [Entitic vol]on 04-30-2024 Platelet mean volume (Bld) [Entitic vol] 10.5 fL 9.5-13.5 [facility] Platelets Auto (Bld) [#/Vol] on 04-30-2024 Platelets (Bld) [#/Vol] 188 10 3/uL 150-450 [facility] RBC Auto (Bld) [#/Vol]on RBC (Bld) [#/Vol] 4.32 10 6/uL 4.20-5.40 [facility] Serum or plasma albumin/glob ulin mass ratioon 04-30-2024 Albumin/Globulin [Mass ratio] 1.0 {ratio} [facility] Serum or plasma anion gap de terminationon 04-30-2024 Anion gap [Moles/Vol] 13.9 mmol/L [facility] Serum or plasma total choles terol/high density lipoprotein (HDL) cholesterol mass stephane 04-30-2024 Cholesterol.total/C holesterol in HDL [Mass ratio] 1.8 {ratio} [facility] Comment on above: 3.3 - 4.4 LOW RISK4. 4 - 7.1 AVERAGE RISK7.1 - 11.0 MODERATE RISK>11.0 HIGH RISK Bacteria identified Aer cx N om (Unsp spec)Ordered By: Juancarlos Campbell on 01-12-2024 Superficial Wound Culture Pseudomonas aeruginosa [facility] Superficial Wound Cultureon 01-12-2024 Superficial Wound Culture LT POSTERIOR ANKLE AND LEFT LEG ORGANISM: Pseudomonas aeruginosa (O:PSEAER) Quantity of Growth Heavy Growth Aerobic RAINA Charge (NMIC56) ---- SUSCEPTIBILITY --- ORGANISM: O:PSEAER ANTIBIOTIC INTERPRETATION RAINA Amikacin S <16 Aztreonam IB <4 Cefepime S <2 Ceftazidime IB <1 Ceftazidime/Avibactam S <4 Ceftolozane/Tazobacta m S <2 Ciprofloxacin S <0.25 Gentamicin S <2 Levofloxacin S <0.5 Meropenem S <1 Piperacillin/Tazobact am IB <8 Tobramycin S <2 S = SUSCEPTIBLE I = INTERMEDIATE R = RESISTANT BLANK = DATA NOT AVAILABLE, OR DRUG NOT ADVISABLE OR TESTED R* = RESISTANCE DUE TO EXTENDED SPECTRUM BETA-LACTAMASES ESBL = EXTENDED SPECTRUM BETA-LACTAMASE TFG = THYMIDINE-DEPENDENT STRAIN COLLIN = BETA-LACTAMASE POSITIVE IB = INDUCIBLE BETA-LACTAMASE. APPEARS IN PLACE OF 'S' WITH SPECIES KNOWN TO POSSESS INDUCIBLE BETA-LACTAMASES. POTENTIALLY THEY MAY BECOME RESISTANT TO ALL B-LACTAM DRUGS. PERFORMED BY: [place] [address] PATHOLOGIST [employer]IST HERMELINDO BLUM M.D. Normal [facility] Comment on above: Performed By: #### C USUP #### [address] MG MAMM SCREEN 3D DEBRA CADon 04-07-2023 MG MAMM SCREEN 3D DEBRA CAD Patient: SANDRA TAVAREZ Exam Date: 04/07/2023 : 1940 Gender:F Ordering : DR ROBERT VAIL D.O. Admission #: [id number] Family : Order #: [id number] CLICK HERE TO VIEW EXAM RADIOLOGY REPORT [...] at age 43. LOCATION: [facility] BREAST COMPOSITION: Scattered areas fibroglandular density. FINDINGS: [...] 04/07/2023 at 14:36 Normal [facility] CBC AUTO DIFFon 03-14-2023 BASO # 0.1 103/ul Normal 0.0-0.1 [facility] Comment on above: Performed By: #### C BC ####[facility] [address] [place] [address]DrKen Louis Basophils/100 WBC (Bld) 0.9 % Normal 0.2-2.0 [facility] Comment on above: Performed By: #### C BC ####[facility] [address] [place], [place] [address]DrKen Louis EO # 0.1 103/ul Normal 0.0-0.7 [facility] Comment on above: Performed By: #### C BC ####[facility] [address] [place] [id number] Louis Eosinophils/100 WBC (Bld) 1.2 % Normal 0.9-7.0 [facility] Comment on above: Performed By: #### C BC ####[facility] [address] [place] [id number]. Gaurav Louis Erythrocyte distribution width (RBC) [Ratio] 13.2 % Normal 11.0-15.0 [facility] Comment on above: Performed By: #### C BC ####[facility] [address] [place], [place] [address]DrKen Louis Hematocrit (Bld) [Volume fraction] 44.1 % Normal 36.0-48.0 [facility] Comment on above: Performed By: #### C BC ####[facility] [address] [place] [address]DrKen Louis Hemoglobin (Bld) [Mass/Vol] 14.7 g/dL Normal 12.0-16.0 [facility] Comment on above: Performed By: #### C BC ####[facility] [address] [place] [address]Dr. Violettealtagracia Heriberto IG # 0.02 10e3/ul Normal 0.00-0.03 [facility] Comment on above: Performed By: #### C BC ####[facility] [address] [place] [address]Dr. Gaurav Louis IG % 0.4 % Normal 0.0-0.5 [facility] Comment on above: Performed By: #### C BC ####[facility] [address] [place] [address]DrKen Louis LYMPH # 0.9 103/ul Critically low 1.2-3.8 [facility] Comment on above: Performed By: #### C BC ####[facility] [address] [place] [address]Dr. Gaurav Louis Lymphocytes/100 WBC (Bld) 16.5 % Critically low 20.5-60.0 [facility] Comment on above: Performed By: #### C BC ####[facility] [address] [place] [address]Dr. Gaurav Louis MANUAL DIFF REQ NO Normal [facility] Comment on above: Performed By: #### C BC ####[facility] [address] [place] [address]Dr. Gaurav Louis MCH (RBC) [Entitic mass] 30.7 pg Normal 26.7-34.0 [facility] Comment on above: Performed By: #### C BC ####[facility] [address] [place] [address]Dr. Gaurav Louis MCHC (RBC) [Mass/Vol] 33.3 g/dL Normal 29.9-35.2 [facility] Comment on above: Performed By: #### C BC ####[facility] [address] [place] [address]DrKen Louis MCV (RBC) [Entitic vol] 92.1 fL Normal 81.0-99.0 [facility] Comment on above: Performed By: #### C BC ####[facility] [address] [place] [id number]. Gaurav Louis MONO # 0.5 103/ul Normal 0.3-0.8 [facility] Comment on above: Performed By: #### C BC ####[facility] [address] [place] [id number]. Gaurav Louis Monocytes/100 WBC (Bld) 8.0 % Normal 1.7-12.0 [facility] Comment on above: Performed By: #### C BC ####[facility] [address] [place], [place] [address]Dr. Gaurav Louis NEUT # 4.1 103/ul Normal 1.4-6.5 [facility] Comment on above: Performed By: #### C BC ####[facility] [address] [place], [place] [address]Dr. Gaurav Louis Neutrophils/100 WBC (Bld) 73.0 % Normal 43.0-75.0 [facility] Comment on above: Performed By: #### C BC ####[facility] [address] [place], [place] [address]Dr. Gaurav Louis Platelet mean volume (Bld) [Entitic vol] 10.0 fL Normal 9.5-13.5 [facility] Comment on above: Performed By: #### C BC ####[facility] [address] [place], [place] [address]Dr. Gaurav Louis PLT 184 103/ul Normal 150-450 [facility] Comment on above: Performed By: #### C BC ####[facility] [address] [place], [place] [address]Dr. Gaurav Louis RBC 4.79 106/ul Normal 4.20-5.40 [facility] Comment on above: Performed By: #### C BC ####[facility] [address] [place], [place] [address]Dr. Gaurav Louis WBC 5.6 103/ul Normal 4.0-11.0 [facility] Comment on above: Performed By: #### C BC ####[facility] [address] [place], [place] [address]GqDr. Gaurav Louis GLYCOHEMOGLOBIN A1Con 2022 ADA RECOMMENDATION SEE BELOW Normal [facility] Comment on above: Result Comment: ADA RECOMMENDED LIMIT 4.0 - 6.0 ADA THERAPEUTIC TARGET < 7.0 ACTION SUGGESTED > 7.0 Performed By: #### A 1C #### [facility] [address] [address] [address] Gaurav Louis Glucose [Mass/Vol] 148 mg/dL Normal [facility] Comment on above: Performed By: #### A 1C #### [facility] [address] [address] [address] Gaurav Louis HbA1c (Bld) [Mass fraction] 6.8 % Critically high 4.5-6.2 [facility] Comment on above: Performed By: #### A 1C #### [facility] [address] [place] [address] Dr. Gaurav Louis LIPID PROFILEon 03-14-2023 CHOL-HDL RATIO NORM SEE BELOW Normal [facility] Comment on above: Result Comment: 3.3 - 4.4 LOW RISK 4.4 - 7.1 AVERAGE RISK 7.1 - 11.0 MODERATE RISK >11.0 HIGH RISK Performed By: #### T TANIKA, LIPID, BMP #### [facility] [address] [place] [address] Dr. Gaurav Louis Cholesterol [Mass/Vol] 137 mg/dL Normal <=200 [facility] Comment on above: Performed By: #### T SH, LIPID, BMP #### [facility] [address] [address] [address] Gaurav Louis Cholesterol in HDL [Mass/Vol] 63 mg/dL Critically high 40-60 [facility] Comment on above: Performed By: #### T SH, LIPID, BMP #### [facility] [address] [address] [address] Gaurav Louis Cholesterol in LDL [Mass/Vol] 57.8 mg/dL Normal [facility] Comment on above: Performed By: #### T SH, LIPID, BMP #### [facility] [address] [address] [address] Gaurav Louis Cholesterol.total/C holesterol in HDL [Mass ratio] 2.2 {ratio} Normal [facility] Comment on above: Performed By: #### T SH, LIPID, BMP #### [facility] [address] [address] [address] Gaurav Louis HDL NORMAL > or = 60 mg/dl - LO W CARDIOVASCULAR RISK <40 mg/dl - HIGH CARDIOVASCULAR RISK Normal [facility] Comment on above: Performed By: #### T SH, LIPID, BMP #### [facility] [address] [place] [address] Dr. Gaurav Louis LDL CALC NORMAL SEE BELOW Normal [facility] Comment on above: Result Comment: <100 mg/dl OPTIMAL 100 - 129 mg/dl NEAR OR ABOVE OPTIMAL 130 - 159 mg/dl BORDERLINE HIGH 160 - 189 mg/dl HIGH >190 mg/dl VERY HIGH Performed By: #### T TANIKA, LIPID, BMP #### [facility] [address] [place] [address] Dr. Gaurav Louis Triglyceride [Mass/Vol] 81 mg/dL Normal <=150 [facility] Comment on above: Performed By: #### T TANIKA, LIPID, BMP #### [facility] [address] [place] [address] Dr. Gaurav Louis VLDL CALC 16.2 mg/dL Normal [facility] Comment on above: Performed By: #### T TANIKA, LIPID, BMP #### [facility] [address] [place] [address] Dr. Gaurav Louis MICROALBUMIN, RAND URon 04- mALB 2.8 mg/L Normal <=30.0 [facility] Comment on above: Performed By: #### M ALBR #### [facility] [address] [place] [address] Dr. Gaurav Louis PROF CHEM 8 (BAS METB)on Anion gap [Moles/Vol] 13.4 mmol/L Normal [facility] Comment on above: Performed By: #### T SH, LIPID, BMP #### [facility] [address] [address] [address] Gaurav Louis Calcium [Mass/Vol] 9.7 mg/dL Normal 8.5-10.1 [facility] Comment on above: Performed By: #### T SH, LIPID, BMP #### [facility] [address] [address] [address] Gaurav Louis Chloride [Moles/Vol] 103 mmol/L Normal 98-107 [facility] Comment on above: Performed By: #### T SH, LIPID, BMP #### [facility] [address] [address] [address] Gaurav Louis CO2 [Moles/Vol] 28.2 mmol/L Normal 21.0-32.0 [facility] Comment on above: Performed By: #### T SH, LIPID, BMP #### [facility] [address] [place] [address] Dr. Gaurav Louis Creatinine [Mass/Vol] 0.94 mg/dL Normal 0.55-1.02 [facility] Comment on above: Performed By: #### T SH, LIPID, BMP #### [facility] [address] [address] [address] Gaurav Louis EGFR-AF BOLIVIAN >60 Normal >=60 [facility] Comment on above: Performed By: #### T SH, LIPID, BMP #### [facility] [address] [place] [address] Dr. Gaurav Louis EGFR-NON AF BOLIVIAN 57 mL/min/1.73m2 Critically low >=60 [facility] Comment on above: Performed By: #### T SH, LIPID, BMP #### [facility] [address] [address] [address] Gaurav Louis Glucose [Mass/Vol] 155 mg/dL Critically high 74-106 [facility] Comment on above: Performed By: #### T SH, LIPID, BMP #### [facility] [address] [place] [address] Dr. Gaurav Louis Potassium [Moles/Vol] 3.6 mmol/L Normal 3.5-5.1 [facility] Comment on above: Performed By: #### T SH, LIPID, BMP #### [facility] [address] [address] [address] Gaurav Louis Sodium [Moles/Vol] 141 mmol/L Normal 136-145 [facility] Comment on above: Performed By: #### T TANIKA, LIPID, BMP #### [facility] [address] [place] [address] Dr. Gaurav Louis Urea nitrogen [Mass/Vol] 19.0 mg/dL Critically high 7.0-18.0 [facility] Comment on above: Performed By: #### T TANIKA, LIPID, BMP #### [facility] [address] [place] [address] Dr. Gaurav Louis Urea nitrogen/Creatinine [Mass ratio] 20.2 mg/mg Normal [facility] Comment on above: Performed By: #### T TANIKA LIPID, BMP #### [facility] [address] [place] [address] Dr. Gaurav Louis TSHon 03-14-2023 TSH 0.784 uIU/mL Normal 0.358-3.740 [facility] Comment on above: Performed By: #### T TANIKA LIPID, BMP #### [facility] [address] [place] [address] Dr. Gaurav Louis SARS-CoV-2 (COVID-19) RNA NA A+probe Ql (Resp)on 09-11-2022 SARS-CoV-2 (COVID-19) RNA LANDEN+probe Ql (Unsp spec) Positive [facility] Other CBC AUTO DIFFon 07-06-2022 BASO # 0.1 103/ul Normal 0.0-0.1 [facility] Comment on above: Performed By: #### C BC #### [facility] [address] [place] [address] Dr. Gaurav Louis Basophils/100 WBC (Bld) 0.5 % Normal 0.2-2.0 [facility] Comment on above: Performed By: #### C BC #### [facility] [address] [place] [address] Dr. Gaurav Louis EO # 0.1 103/ul Normal 0.0-0.7 [facility] Comment on above: Performed By: #### C BC #### [facility] [address] [place] [address] Dr. Gaurav Louis Eosinophils/100 WBC (Bld) 0.7 % Critically low 0.9-7.0 [facility] Comment on above: Performed By: #### C BC #### [facility] [address] [place] [address] Dr. Gaurav Louis Erythrocyte distribution width (RBC) [Ratio] 22.5 % Critically high 11.0-15.0 [facility] Comment on above: Result Comment: 2+ a nisocytosis Performed By: #### C BC #### [facility] [address] [place] [address] Dr. Gaurav Louis Hematocrit (Bld) [Volume fraction] 41.4 % Normal 36.0-48.0 [facility] Comment on above: Performed By: #### C BC #### [facility] [address] [place] [address] Dr. Gaurav Louis Hemoglobin (Bld) [Mass/Vol] 13.4 g/dL Normal 12.0-16.0 [facility] Comment on above: Performed By: #### C BC #### [facility] [address] [place] [address] Dr. Gaurav Louis IG # 0.04 10e3/ul Critically high 0.00-0.03 [facility] Comment on above: Performed By: #### C BC #### [facility] [address] [place] [address] Dr. Gaurav Louis IG % 0.4 % Normal 0.0-0.5 [facility] Comment on above: Performed By: #### C BC #### [facility] [address] [place] [address] Dr. Gaurav Louis LYMPH # 1.1 103/ul Critically low 1.2-3.8 [facility] Comment on above: Performed By: #### C BC #### [facility] [address] [place] [address] Dr. Gaurav Louis Lymphocytes/100 WBC (Bld) 10.2 % Critically low 20.5-60.0 [facility] Comment on above: Performed By: #### C BC #### [facility] [address] [place] [address] Dr. Gaurav Louis MANUAL DIFF REQ NO Normal [facility] Comment on above: Performed By: #### C BC #### [facility] [address] [place] [address] Dr. Gaurav Louis MCH (RBC) [Entitic mass] 28.3 pg Normal 26.7-34.0 [facility] Comment on above: Performed By: #### C BC #### [facility] [address] [place] [address] Dr. Gaurav Louis MCHC (RBC) [Mass/Vol] 32.4 g/dL Normal 29.9-35.2 [facility] Comment on above: Performed By: #### C BC #### [facility] [address] [place] [address] Dr. Gaurav Louis MCV (RBC) [Entitic vol] 87.5 fL Normal 81.0-99.0 [facility] Comment on above: Performed By: #### C BC #### [facility] [address] [place] [address] Dr. Gaurav Louis MONO # 0.8 103/ul Normal 0.3-0.8 [facility] Comment on above: Performed By: #### C BC #### [facility] [address] [place] [address] Dr. Gaurav Louis Monocytes/100 WBC (Bld) 7.3 % Normal 1.7-12.0 [facility] Comment on above: Performed By: #### C BC #### [facility] [address] [place] [address] Dr. Gaurav Louis NEUT # 8.4 103/ul Critically high 1.4-6.5 [facility] Comment on above: Performed By: #### C BC #### [facility] [address] [place] [address] Dr. Gaurav Louis Neutrophils/100 WBC (Bld) 80.9 % Critically high 43.0-75.0 [facility] Comment on above: Performed By: #### C BC #### [facility] [address] [place] [address] Dr. Gaurav Louis Platelet mean volume (Bld) [Entitic vol] 10.0 fL Normal 9.5-13.5 [facility] Comment on above: Performed By: #### C BC #### [facility] [address] [place] [address] Dr. Gaurav Louis PLT 178 103/ul Normal 150-450 [facility] Comment on above: Performed By: #### C BC #### [facility] [address] [place] [address] Dr. Gaurav Louis RBC 4.73 106/ul Normal 4.20-5.40 [facility] Comment on above: Performed By: #### C BC #### [facility] [address] [place] [address] Dr. Gaurav Louis WBC 10.3 103/ul Normal 4.0-11.0 [facility] Comment on above: Performed By: #### C BC #### [facility] [address] [place] [address] Dr. Gaurav Louis US SINGLE QUAD LT [...] Date: 2022-04-30 18:10 Normal [facility] CBC AUTO DIFFon 04-13-2022 BASO # 0.0 103/ul Normal 0.0-0.1 [facility] Comment on above: Performed By: #### C BC #### [facility] [address] [place] [address] Dr. Gaurav Louis Basophils/100 WBC (Bld) 0.6 % Normal 0.2-2.0 [facility] Comment on above: Performed By: #### C BC #### [facility] [address] [place] [address] Dr. Gaurav Louis EO # 0.1 103/ul Normal 0.0-0.7 [facility] Comment on above: Performed By: #### C BC #### [facility] [address] [place] [address] Dr. Gaurav Louis Eosinophils/100 WBC (Bld) 1.7 % Normal 0.9-7.0 [facility] Comment on above: Performed By: #### C BC #### [facility] [address] [place] [address] Dr. Gaurav Louis Erythrocyte distribution width (RBC) [Ratio] 21.1 % Critically high 11.0-15.0 [facility] Comment on above: Performed By: #### C BC #### [facility] [address] [place] [address] Dr. Gaurav Louis Hematocrit (Bld) [Volume fraction] 33.6 % Critically low 36.0-48.0 [facility] Comment on above: Performed By: #### C BC #### [facility] [address] [place] [address] Dr. Gaurav Louis Hemoglobin (Bld) [Mass/Vol] 10.0 g/dL Critically low 12.0-16.0 [facility] Comment on above: Performed By: #### C BC #### [facility] [address] [place] [address] Dr. Gaurav Louis IG # 0.02 10e3/ul Normal 0.00-0.03 [facility] Comment on above: Performed By: #### C BC #### [facility] [address] [place] [address] Dr. Gaurav Louis IG % 0.4 % Normal 0.0-0.5 [facility] Comment on above: Performed By: #### C BC #### [facility] [address] [place] [address] Dr. Gaurav Louis LYMPH # 1.0 103/ul Critically low 1.2-3.8 [facility] Comment on above: Performed By: #### C BC #### [facility] [address] [place] [address] Dr. Gaurav Louis Lymphocytes/100 WBC (Bld) 18.3 % Critically low 20.5-60.0 [facility] Comment on above: Performed By: #### C BC #### [facility] [address] [place] [address] Dr. Gaurav Louis MANUAL DIFF REQ NO Normal [facility] Comment on above: Performed By: #### C BC #### [facility] [address] [place] [address] Dr. Gaurav Louis MCH (RBC) [Entitic mass] 22.8 pg Critically low 26.7-34.0 [facility] Comment on above: Performed By: #### C BC #### [facility] [address] [place] [address] Dr. Gaurav Louis MCHC (RBC) [Mass/Vol] 29.8 g/dL Critically low 29.9-35.2 [facility] Comment on above: Performed By: #### C BC #### [facility] [address] [place] [address] Dr. Gaurav Louis MCV (RBC) [Entitic vol] 76.7 fL Critically low 81.0-99.0 [facility] Comment on above: Performed By: #### C BC #### [facility] [address] [place] [address] Dr. Gaurav Louis MONO # 0.5 103/ul Normal 0.3-0.8 [facility] Comment on above: Performed By: #### C BC #### [facility] [address] [place] [address] Dr. Gaurav Louis Monocytes/100 WBC (Bld) 8.8 % Normal 1.7-12.0 [facility] Comment on above: Performed By: #### C BC #### [facility] [address] [place] [address] Dr. Gaurav Louis NEUT # 3.8 103/ul Normal 1.4-6.5 [facility] Comment on above: Performed By: #### C BC #### [facility] [address] [place] [address] Dr. Gaurav Louis Neutrophils/100 WBC (Bld) 70.2 % Normal 43.0-75.0 [facility] Comment on above: Performed By: #### C BC #### [facility] [facility] [address] [place] [address] Dr. Gaurav Louis Platelet mean volume (Bld) [Entitic vol] 9.4 fL Critically low 9.5-13.5 [facility] Comment on above: Performed By: #### C BC #### [facility] [address] [place] [address] Dr. Gaurav Louis PLT 226 103/ul Normal 150-450 [facility] Comment on above: Performed By: #### C BC #### [facility] [address] [place] [address] Dr. Gaurav Louis RBC 4.38 106/ul Normal 4.20-5.40 [facility] Comment on above: Performed By: #### C BC #### [facility] [address] [place] [address] Dr. Gaurav Louis WBC 5.4 103/ul Normal 4.0-11.0 [facility] Comment on above: Performed By: #### C BC #### [facility] [address] [place] [address] Dr. Gaurav Louis Outside Colonoscopyon 2021 Outside Colonoscopy [id number] .00CD:127 Normal [facility] Reminderson 03-11-2022 Reminders - From: Gabi Hernandez LPN To: N - Clinical; Sent: 03/11/2022 15:08:38 EDT Show up: 02/07/2025 07:00:00 EDT Subject: colonoscopy recall Due Date/Time: 03/10/2025 07:00:00 EDT Reminder/Recall Patient is due for colonoscopy 03/10/2025 to attempt to retrieve cecal polyp that was unable to be removed due to location and redundant colon. Normal [facility] Lab Reportson 03-09-2022 Lab Reports [id number]. 00CD:127 Normal [facility] Consent for Procedure/Surger yon 03-05-2022 Consent for Procedure/Surgery [id number]#1 .00CD:127 Normal [facility] Ambulatory Visit Summaryon 0 03-04-2022 Ambulatory Visit [...] thromboembolism) Seizure SNHL (sensorineural hearing loss) Normal [facility] Lab Reportson 03-04-2022 Lab Reports [id number]#1 .00CD:127 Normal [facility] Lab Reports [id number]#1. 00CD:127 Normal [facility] Lab Reports [id number]#1. 00CD:127 Normal [facility] Physician Referralon 022 Physician Referral [id number] .00CD:127 [facility] XR ankle LT min 3V*on 2020 XR ankle LT min 3V* [facility] [employer] Other XR ankle LT min 3V* [facility] [employer] Other XR ankle LT min 3V* [address] [facility] [employer] Other XR ankle LT min 3V* LASHONDA Esposito [address] [place] [employer] Other XR ankle LT min 3V* XRay Report [facility] [employer] Other XR ankle LT min 3V* Signed [employer] Other XR ankle LT min 3V* Patient: Sandra Tavarez MR#: [id number] [place] [employer] Other XR ankle LT min 3V* 7 [employer] Other XR ankle LT min 3V* : 1940 Acct:[id number] [employer] Other XR ankle LT min 3V* Age/Sex: 80 / F ADM Date: 11/07/21 [employer] Other XR ankle LT min 3V* Loc: XDUCLY Room: Type: REG CLI [employer] Other XR ankle LT min 3V* Attending Dr: Quita ZUNIGA [employer] Other XR ankle LT min 3V* Ordering Provider: NADIA Winslow [employer] Other XR ankle LT min 3V* Date of Service: 11/07/21 [employer] Other XR ankle LT min 3V* XR/XR ankle LT min 3V*: Acute left ankle pain [employer] Other XR ankle LT min 3V* Copies to: Quita Simmons TUNNEL MUCKER-C [employer] Other XR ankle LT min 3V* XR ankle LT min 3V* 11/07/2021 12:15 PM [employer] Other XR ankle LT min 3V* SIGNS AND SYMPTOMS: Pain along the left Achilles and lateral aspect of the calcaneus, limited range [employer] Other XR ankle LT min 3V* of motion [employer] Other XR ankle LT min 3V* PROTOCOL: Frontal, lateral, and oblique radiographs of the left ankle [employer] Other XR ankle LT min 3V* COMPARISON: None [employer] Other XR ankle LT min 3V* FINDINGS: [employer] Other XR ankle LT min 3V* The ankle mortise is preserved. There is cortical irregularity along the inferior margin of the [employer] Other XR ankle LT min 3V* lateral malleolus which may represent sequelae of a previous avulsive-type injury. There is soft [employer] Other XR ankle LT min 3V* tissue swelling diffusely but greatest along the dorsal soft tissues. There is plantar surface [employer] Other XR ankle LT min 3V* calcaneal spurring. Vascular calcifications are present. Degenerative changes are noted in the [employer] Other XR ankle LT min 3V* midfoot. [employer] Other XR ankle LT min 3V* XR/XR ankle LT min 3V* [employer] Other XR ankle LT min 3V* IMPRESSION: [employer] Other XR ankle LT min 3V* No acute displaced fracture. [employer] Other XR ankle LT min 3V* Diffuse soft tissue swelling greatest posteriorly. [employer] Other XR ankle LT min 3V* There is plantar surface calcaneal spurring. [employer] Other XR ankle LT min 3V* Impression dictated by: Tex Diaz M.D.11/07/2021 12:50 PM [employer] Other XR ankle LT min 3V* Dictation Location: [place] [address] [employer] Other XR ankle LT min 3V* Transcribed By: SHAHIDA 11/07/21 1250 [employer] Other XR ankle LT min 3V* Dictated By: Tex Diaz II, MD 11/07/21 1248 [employer] Other XR ankle LT min 3V* Signed By: [employer] Other XR ankle LT min 3V* 11/07/21 1250 No rt [employer] Other [facility] Preoperative Recordon 0 06-04-2020 [facility] Preoperative Record [facility] Pre-Op Record Summary Primary Physician: FERNANDO SILVA Finalized Date/Time: 06/04/20 08:46:37 Pt. Name: SANDRA TAVAREZ/Sex: 1940 FEMALE Med Rec #: [id number] Physician: FERNANDO SILVA Financial #: [id number] Pt. Type: I Room/Bed: [facility] Admit/Disch: 05/23/20 09:44:18 - 05/27/20 15:15:00 Institution: [...] Document Signatures Signed By: Stacy Pena RN 06/04/20 08:46 [facility] Consent Formson 05-28-2020 Consent Forms [id number] .00[facility] Outside Recordson 05-28-2020 Outside Records [id number] .00[facility] Outside Records [id number] .00[facility] Provider Orderson 05-28-2020 Provider Orders [id number] .00[facility] Telemetry Stripson 0 Telemetry Strips [id number]#1 .00[facility] .Auto Diff 105-27-2020 Auto Leake % 13 % High 1-12 [facility] Comment on above: Performed By: #### 1 [id number], [id number], [id number] #### [facility] [address] [place] [address] Baso Abs# 0.0 x10 Normal 0.0-0.2 [facility] Comment on above: Performed By: #### 1 [id number], [id number], [id number] #### [facility] (DEFAULT) [address] [place] [address] Basophils/100 WBC (Bld) 0.3 % Normal 0.2-2.0 [facility] Comment on above: Performed By: #### 1 [id number], [id number], 7195681 #### [facility] (DEFAULT) [address] [place] [address] 29902 Eos Abs# 0.1 x10 Normal 0.0-0.4 [facility] Comment on above: Performed By: #### 1 [id number], [id number], 6285613 #### [facility] (DEFAULT) [address] [place] [address] 70005 Eosinophils/100 WBC (Bld) 1.4 % Normal 0.9-4.0 [facility] Comment on above: Performed By: #### 1 [id number], 68731321, 6591222 #### [facility] (DEFAULT) [address] [place] [address] 93440 Lymphocytes (Bld) [#/Vol] 1.4 x10 Normal 1.3-2.9 [facility] Comment on above: Performed By: #### 1 [id number], 31515829, 0675149 #### [facility] (DEFAULT) [address] [place] [address] 08856 Lymphocytes/100 WBC (Bld) 16 % Normal 14-48 [facility] Comment on above: Performed By: #### 1 [id number], 88685116, 4831397 #### [facility] (DEFAULT) [address] [place] [address] 05713 Leake Abs# 1.1 x10 High 0.0-0.8 [facility] Comment on above: Performed By: #### 1 [id number], 23289651, 2928643 #### [facility] (DEFAULT) [address] [place] [address] 47513 Neut Abs# 6.1 x10 Normal 1.5-9.2 [facility] Comment on above: Performed By: #### 1 [id number], 05257278, 9344769 #### [facility] (DEFAULT) [address] [place] [address] 44013 Neutrophils/100 WBC (Bld) 70 % Normal 44-88 [facility] Comment on above: Performed By: #### 1 [id number], 60165893, 7152616 #### [facility] (DEFAULT) [address] [place] [address] 15678 BMP Standardon 05-27-2020 eGFR Non AA >60 [facility] Comment on above: Performed By: #### 1 [id number], 60919362, 1167058 #### [facility] (DEFAULT) [address] [place] [address] 97393 eGFR AA >60 [facility] Comment on above: Result Comment: Marketing Financial Analyst ghazal Kidney disease could be indicated at eGFRs of less than 60 ml/min/1.73m2. Kidney Failure is indicated at less than 15 ml/min/1.73m2 Performed By: #### 1 [id number], 28871241, 7693576 #### [facility] (DEFAULT) [address] [place] [address] 94851 Anion gap [Moles/Vol] 15.0 mmol/L Normal 5.0-19.0 [facility] Comment on above: Performed By: #### 1 [id number], 09321617, 4445320 #### [facility] (DEFAULT) [address] [place] [address] 92499 Calcium [Mass/Vol] 9.2 mg/dL Normal 8.9-10.3 [facility] Comment on above: Performed By: #### 1 [id number], 52245404, 3445460 #### [facility] (DEFAULT) [address] [place] [address] 79012 Chloride [Moles/Vol] 101 mmol/L Normal 101-111 [facility] Comment on above: Performed By: #### 1 [id number], 59097523, 8128374 #### [facility] (DEFAULT) [address] [place] [address] 68603 CO2 [Moles/Vol] 26 mmol/L Normal 21-32 [facility] Comment on above: Performed By: #### 1 [id number], 58273548, 6477813 #### [facility] (DEFAULT) [address] [place] [address] 96800 Creatinine [Mass/Vol] 0.58 mg/dL Low 0.60-1.30 [facility] Comment on above: Performed By: #### 1 [id number], 62250916, 5352204 #### [facility] (DEFAULT) [address] [place] [address] 91448 Glucose [Mass/Vol] 120.0 mg/dL High 74.0-118.0 [facility] Comment on above: Performed By: #### 1 [id number], 61690593, 8657236 #### [facility] (DEFAULT) [address] [place] [address] Osmolality [Osmolality] 279 mOsm/L [facility] Comment on above: Performed By: #### 1 [id number], 27132165, 9838195 #### [facility] (DEFAULT) [address] [place] [address] 49997 Potassium [Moles/Vol] 3.7 mmol/L Normal 3.6-5.1 [facility] Comment on above: Performed By: #### 1 [id number], 69575110, 0992751 #### [facility] (DEFAULT) [address] [place] [address] 21637 Sodium [Moles/Vol] 138.0 mmol/L Normal 136.0-144.0 [facility] Comment on above: Performed By: #### 1 [id number], 21027088, 7759018 #### [facility] (DEFAULT) [address] [place] [address] 73001 Urea nitrogen [Mass/Vol] 19 mg/dL Normal 8-26 [facility] Comment on above: Performed By: #### 1 [id number], 46512195, 3276614 #### [facility] (DEFAULT) [address] [place] [address] 22206 Urea nitrogen/Creatinine [Mass ratio] 33.0 mg/mg High 4.6-16.2 [facility] Comment on above: Performed By: #### 1 [id number], 54979811, 4409428 #### [facility] (DEFAULT) [address] [place] [address] CBC w/ Auto Diffon 0 Erythrocyte distribution width (RBC) [Ratio] 18.4 % High 11.5-15.0 [facility] Comment on above: Performed By: #### 1 [id number], 03423275, 7398690 #### [facility] (DEFAULT) [address] [place] [address] Hematocrit (Bld) [Volume fraction] 29.7 % Low 33.7-40.4 [facility] Comment on above: Performed By: #### 1 [id number], 89570811, 8925199 #### [facility] (DEFAULT) [address] [place] [address] Hemoglobin (Bld) [Mass/Vol] 9.0 g/dL Low 11.3-15.9 [facility] Comment on above: Performed By: #### 1 [id number], 65430785, 4090798 #### [facility] (DEFAULT) [address] [place] [address] Man Diff? Auto Normal [facility] Comment on above: Performed By: #### 1 [id number], 53913812, 8945425 #### [facility] (DEFAULT) [address] [place] [address] MCH (RBC) [Entitic mass] 25 pg Normal 24-34 [facility] Comment on above: Performed By: #### 1 [id number], 48755409, 0374431 #### [facility] (DEFAULT) [address] [place] [address] MCHC (RBC) [Mass/Vol] 30 g/dL Normal 26-37 [facility] Comment on above: Performed By: #### 1 [id number], 29552542, 2893240 #### [facility] (DEFAULT) [address] [place] [address] MCV (RBC) [Entitic vol] 82 fL Normal 81-100 [facility] Comment on above: Performed By: #### 1 [id number], 55363805, 2327851 #### [facility] (DEFAULT) [address] [place] [address] 52902 Platelet mean volume (Bld) [Entitic vol] 10.7 fL High 6.3-10.2 [facility] Comment on above: Performed By: #### 1 [id number], 01888085, 2813216 #### [facility] (DEFAULT) [address] [place] [address] 21957 Platelets (Bld) [#/Vol] 230 x10 Normal 138-427 [facility] Comment on above: Performed By: #### 1 [id number], 75882180, 9491158 #### [facility] (DEFAULT) [address] [place] [address] 64972 RBC (Bld) [#/Vol] 3.60 x10 Low 3.70-5.30 [facility] Comment on above: Performed By: #### 1 [id number], 83437327, 8290894 #### [facility] (DEFAULT) [address] [place] [address] 15604 WBC (Bld) [#/Vol] 8.8 x10 [facility] Comment on above: Performed By: #### 1 [id number], 33321462, 1473182 #### [facility] (DEFAULT) [address] [place] [address] 88717 Coding Summaryon 05-27-2020 Coding Summary CODING DATE: 05/27/2020 [facility] STATUS: Transfer to [facility] PAYOR: Medicare Grouper: 470 MS-DRG MAJOR HIP AND KNEE JOINT REPLACEMENT OR REATTACHMENT OF LOWER EXTREMITY W/O [facility] Low Trim 0 High Trim 999 ADMIT [...] other venous thrombosis and embolism Z79.01 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 G47.33 Y Obstructive sleep apnea (adult) (pediatric) Z99.89 1 Dependence on other enabling machines and devices G40.909 Y Epilepsy, unspecified, not intractable, without status epilepticus Z79.899 1 Other buttermaker continuous churn (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 therapy E66.01 Y Morbid (severe) obesity due to excess calories PROCEDURES DOCTOR NAME DATE [id number] Replacement of Left Knee Joint FERNANDO SILVA 05/23/2020 with Oxidized Zirconium on Polyethylene Synthetic Substitute, Cemented, Open Approach 55837F3 Transfusion of Nonautologous 05/25/2020 Red Blood Cells into Peripheral Vein, Percutaneous Approach NOTE: The code number assigned matches the documented diagnosis and / or procedure in the patient's chart. However, the narrative phrase printed from the coding software may appear abbreviated, or result in slightly different terminology. Revised Coded By: Jeane Mccormick Revised Date Saved: 05/27/2020 06:30 pm [facility] Education Noteon 05-27-2020 Education Note Education [...] dressing for next four days then discontinue Torri hose (compression stockings) for 6 weeks Physical [...] #8 follow up in office with physician claims assistant Octavio Centeno as scheduled #9 NOMS [...] the nearest hospital's emergency services department. Normal [facility] Inpatient Patient Summaryon 05-27-2020 Inpatient [place] [address] Patient Discharge Instructions Name: SALENA K : 1940 Patient Address: [address] [place] [address] Primary Care Provider: Name: Robert Vail After you are discharged if you find you have any questions, please, call [phone] ext [phone] to speak to a nurse. Discharge Diagnosis: Acute pain of left knee Prescription Information: If you have been given a prescription for narcotics, seek immediate medical attention if you have any difficulty breathing or any sudden status changes such as confusion and sleepiness. If you or anyone you know is experiencing suicidal thoughts, mental health, alcohol and/or drug addiction problems; contact the [facility] 20/06 Crisis Hotline -Text 4HLYH to 372604. If you received any narcotics, sedation, or [...] business decisions or sign any legal documents [facility] would like to thank you for allowing us to assist you with your healthcare needs. The following includes patient education materials and information regarding your injury/illness. SANDRA TAVAREZ has been given the following list of follow-up instructions, prescriptions, and patient education materials: Follow-up Instructions With: Address: When: Robert Vail [address] [place] [address] [employer] (1) With: Address: When: Tom Centeno [address] [place] [address], [address] [place], [place] [address] [employer] (1) 06/06/2020 1:00 PM Medications During the [...] dressing for next four days then discontinue Trori hose (compression stockings) for 6 weeks Physical [...] #8 follow up in office with physician claims assistant Octavio Centeno as scheduled #9 NOMS [...] Disease Control and Prevention July 2014 Normal [facility] POCT Glucose Levelon 020 Glucose [Mass/Vol] 125 mg/dL High 74-118 [facility] Comment on above: Performed By: #### 4 [id number] ####[facility] (DEFAULT)[address] [place] [address] 61299 PTon 05-27-2020 INR Coag (PPP) [Relative time] 2.29 {INR} High 0.91-1.11 [facility] Comment on above: Performed By: #### 1 [id number], 52315740, 7775432 #### [facility] (DEFAULT) [address] [place] [address] 84411 PT Coag (PPP) [Time] 22.2 second(s) High 9.7-11.8 [facility] Comment on above: Performed By: #### 1 [id number], [id number], 4507556 #### [facility] (DEFAULT) [address] [place] [address] 20778 Progress Note - Nurseon 04-30 Progress Note - Nurse Dressing change per Dr Moon. TORRI hose applied to both lower legs. Daughter here for transfer to the [place] intermediate. Discharged to intermediate per private vehicle with daughter. PT and OT assisted patient into car. [Electronically Signed on: 05/27/2020 18:20 EDT] Mayra Tafoya RN [Verified on: 05/27/2020 18:20 EDT] Mayra Tafoya RN [facility] Progress Note-Physicianon Progress Note-Physician DATE OF [...] The patient will be going to [facility] today. CONDITION ON DISCHARGE: Stable. Tino Moon DO JOB #: [id number] [Electronically Signed on: 05/28/2020 10:10 EDT] TINO MOON DO [Verified on: 05/28/2020 10:10 EDT] TINO MOON DO [Transcribed on: 05/27/2020 14:44 EDT] [facility] Progress Note-Physician DATE OF POSTOPERATIVE ORTHOPEDIC PROGRESS [...] PROGNOSIS: Fair. Tino Moon DO JOB #: [id number] [Electronically Signed on: 05/27/2020 12:30 EDT] TINO MOON DO [Verified on: 05/27/2020 12:30 EDT] TINO MOON DO [Transcribed on: 05/27/2020 10:45 EDT] [facility] Normal [facility] .Auto Diff 1on 05-26-2020 Auto Leake % 16 % High 1-12 [facility] Comment on above: Performed By: #### 1 [id number], 43665405, 4612684 #### [facility] (DEFAULT) [address] [place] [address] 40248 Baso Abs# 0.0 x10 Normal 0.0-0.2 [facility] Comment on above: Performed By: #### 1 [id number], 94141617, 5565306 #### [facility] (DEFAULT) [address] [place] [address] 85661 Basophils/100 WBC (Bld) 0.2 % Normal 0.2-2.0 [facility] Comment on above: Performed By: #### 1 [id number], 42443973, 7085314 #### [facility] (DEFAULT) [address] [place] [address] 70206 Eos Abs# 0.0 x10 Normal 0.0-0.4 [facility] Comment on above: Performed By: #### 1 [id number], 89970990, 6958124 #### [facility] (DEFAULT) [address] [place] [address] 30140 Eosinophils/100 WBC (Bld) 0.5 % Low 0.9-4.0 [facility] Comment on above: Performed By: #### 1 [id number], 29791774, 1865454 #### [facility] (DEFAULT) [address] [place] [address] 67735 Lymphocytes (Bld) [#/Vol] 1.2 x10 Low 1.3-2.9 [facility] Comment on above: Performed By: #### 1 [id number], 92987869, 4320429 #### [facility] (DEFAULT) [address] [place] [address] Lymphocytes/100 WBC (Bld) 15 % Normal 14-48 [facility] Comment on above: Performed By: #### 1 [id number], 73134781, 2978952 #### [facility] (DEFAULT) [address] [place] [address] Leake Abs# 1.3 x10 High 0.0-0.8 [facility] Comment on above: Performed By: #### 1 [id number], 45974496, 5820130 #### [facility] (DEFAULT) [address] [place] [address] Neut Abs# 5.6 x10 Normal 1.5-9.2 [facility] Comment on above: Performed By: #### 1 [id number], 68604473, 8872153 #### [facility] (DEFAULT) [address] [place] [address] Neutrophils/100 WBC (Bld) 68 % Normal 44-88 [facility] Comment on above: Performed By: #### 1 [id number], 24784116, 1796943 #### [facility] (DEFAULT) [address] [place] [address] CBC w/ Auto Diffon 0 Erythrocyte distribution width (RBC) [Ratio] 17.9 % High 11.5-15.0 [facility] Comment on above: Performed By: #### 1 [id number], 60800412, 0238347 #### [facility] (DEFAULT) [address] [place] [address] Hematocrit (Bld) [Volume fraction] 28.5 % Low 33.7-40.4 [facility] Comment on above: Performed By: #### 1 [id number], 57285710, 4650151 #### [facility] (DEFAULT) [address] [place] [address] Hemoglobin (Bld) [Mass/Vol] 8.5 g/dL Low 11.3-15.9 [facility] Comment on above: Performed By: #### 1 [id number], 92200185, 1390575 #### [facility] (DEFAULT) [address] [place] [address] Man Diff? Auto Normal [facility] Comment on above: Performed By: #### 1 [id number], 80395475, 9428381 #### [facility] (DEFAULT) [address] [place] [address] MCH (RBC) [Entitic mass] 24 pg Normal 24-34 [facility] Comment on above: Performed By: #### 1 [id number], 15990584, 2438249 #### [facility] (DEFAULT) [address] [place] [address] MCHC (RBC) [Mass/Vol] 30 g/dL Normal 26-37 [facility] Comment on above: Performed By: #### 1 [id number], 88629651, 0008541 #### [facility] (DEFAULT) [address] [place] [address] MCV (RBC) [Entitic vol] 81 fL Normal 81-100 [facility] Comment on above: Performed By: #### 1 [id number], 52444994, 7696505 #### [facility] (DEFAULT) [address] [place] [address] Platelet mean volume (Bld) [Entitic vol] 10.5 fL High 6.3-10.2 [facility] Comment on above: Performed By: #### 1 [id number], 20772775, 7396253 #### [facility] (DEFAULT) [address] [place] [address] Platelets (Bld) [#/Vol] 178 x10 Normal 138-427 [facility] Comment on above: Performed By: #### 1 [id number], 65488184, 9984282 #### [facility] (DEFAULT) [address] [place] [address] RBC (Bld) [#/Vol] 3.50 x10 Low 3.70-5.30 [facility] Comment on above: Performed By: #### 1 [id number], 06881875, 4737513 #### [facility] (DEFAULT) [address] [place] [address] 71033 WBC (Bld) [#/Vol] 8.2 x10 [facility] Comment on above: Performed By: #### 1 [id number], 84236714, 0478512 #### [facility] (DEFAULT) [address] [place] [address] 13507 Extra Greenon 05-26-2020 Tube Collected Yes [facility] Comment on above: Performed By: #### 1 [id number], [id number], [id number] #### [facility] ([facility] [address] [place] [address] 71114 History and Physicalon 05-26 History and Physical [id number] #[id number] Normal [facility] Nutrition Noteon 05-26-2020 Nutrition Note Per intake records, Pt avg 50% of past 6 meals with inconsistent supplement intake avg 1X/d. Last BM on 05/23, will offer prune juice. Post op anemia noted; per ortho 1unit PRBC given. CXR obtained for fever, dyspnea which was wnl. Possible discharge later today. Will continue to monitor. Normal [facility] PTon 05-26-2020 INR Coag (PPP) [Relative time] 2.54 {INR} High 0.91-1.11 [facility] Comment on above: Performed By: #### 1 [id number], [id number], [id number] #### [facility] (DEFAULT) [address] [place] [address] 36611 PT Coag (PPP) [Time] 24.4 second(s) High 9.7-11.8 [facility] Comment on above: Performed By: #### 1 [id number], 50138614, [id number] #### [facility] (DEFAULT) [address] [place] [address] 77003 Progress Note-Physicianon Progress Note-Physician DATE OF ORTHOPEDIC [...] Coumadin tomorrow. PROGNOSIS: Overall is good. Tino Moon DO JOB #: [id number] [Electronically Signed on: 05/26/2020 13:12 EDT] TINO MOON DO [Verified on: 05/26/2020 13:12 EDT] TINO MOON DO [Transcribed on: 05/26/2020 10:28 EDT] [facility] XR Chest 1 View Frontalon XR Chest [...] MD 05/26/20 3:37 pm Technologist: AUGUSTO LEE [facility] .Auto Diff 1on 05-25-2020 Auto Leake % 17 % High 1-12 [facility] Comment on above: Performed By: #### 1 [id number], [id number], [id number] #### [facility] (DEFAULT) [address] [place] [address] 43625 Baso Abs# 0.0 x10 Normal 0.0-0.2 [facility] Comment on above: Performed By: #### 1 [id number], 62843688, [id number] #### [facility] (DEFAULT) [address] [place] [address] 28787 Basophils/100 WBC (Bld) 0.3 % Normal 0.2-2.0 [facility] Comment on above: Performed By: #### 1 [id number], 30157741, 8563982 #### [facility] (DEFAULT) [address] [place] [address] 39224 Eos Abs# 0.0 x10 Normal 0.0-0.4 [facility] Comment on above: Performed By: #### 1 [id number], 26603103, [id number] #### [facility] (DEFAULT) [address] [place] [address] 53521 Eosinophils/100 WBC (Bld) 0.1 % Low 0.9-4.0 [facility] Comment on above: Performed By: #### 1 [id number], 06347079, 7504559 #### [facility] (DEFAULT) [address] [place] [address] 62923 Lymphocytes (Bld) [#/Vol] 0.8 x10 Low 1.3-2.9 [facility] Comment on above: Performed By: #### 1 [id number], 57667641, 6013688 #### [facility] (DEFAULT) [address] [place] [address] 36502 Lymphocytes/100 WBC (Bld) 11 % Low 14-48 [facility] Comment on above: Performed By: #### 1 [id number], 41084171, 5740196 #### [facility] (DEFAULT) [address] [place] [address] 07002 Leake Abs# 1.1 x10 High 0.0-0.8 [facility] Comment on above: Performed By: #### 1 [id number], 34265723, [id number] #### [facility] (DEFAULT) [address] [place] [address] 41274 Neut Abs# 4.8 x10 Normal 1.5-9.2 [facility] Comment on above: Performed By: #### 1 [id number], 19533566, 8319570 #### [facility] (DEFAULT) [address] [place] [address] 18005 Neutrophils/100 WBC (Bld) 72 % Normal 44-88 [facility] Comment on above: Performed By: #### 1 [id number], 52464132, 4943727 #### [facility] (DEFAULT) [address] [place] [address] CBC w/ Auto Diffon 0 Erythrocyte distribution width (RBC) [Ratio] 17.6 % High 11.5-15.0 [facility] Comment on above: Performed By: #### 1 [id number], 61560082, 4495599 #### [facility] (DEFAULT) [address] [place] [address] Hematocrit (Bld) [Volume fraction] 27.4 % Low 33.7-40.4 [facility] Comment on above: Performed By: #### 1 [id number], 81915041, 5501771 #### [facility] (DEFAULT) [address] [place] [address] Hemoglobin (Bld) [Mass/Vol] 8.1 g/dL Low 11.3-15.9 [facility] Comment on above: Performed By: #### 1 [id number], 77216779, 9453732 #### [facility] (DEFAULT) [address] [place] [address] Man Diff? Auto Normal [facility] Comment on above: Performed By: #### 1 [id number], 55032471, 9090371 #### [facility] (DEFAULT) [address] [place] [address] MCH (RBC) [Entitic mass] 24 pg Normal 24-34 [facility] Comment on above: Performed By: #### 1 [id number], 72380159, 0843090 #### [facility] (DEFAULT) [address] [place] [address] 29417 MCHC (RBC) [Mass/Vol] 30 g/dL Normal 26-37 [facility] Comment on above: Performed By: #### 1 [id number], 59828176, 5564150 #### [facility] (DEFAULT) [address] [place] [address] MCV (RBC) [Entitic vol] 80 fL Low 81-100 [facility] Comment on above: Performed By: #### 1 [id number], 53558263, 5183964 #### [facility] (DEFAULT) [address] [place] [address] 87172 Platelet mean volume (Bld) [Entitic vol] 10.8 fL High 6.3-10.2 [facility] Comment on above: Performed By: #### 1 [id number], 81763649, 6549236 #### [facility] (DEFAULT) [address] [place] [address] 09069 Platelets (Bld) [#/Vol] 186 x10 Normal 138-427 [facility] Comment on above: Performed By: #### 1 [id number], 66022092, 7064612 #### [facility] (DEFAULT) [address] [place] [address] RBC (Bld) [#/Vol] 3.42 x10 Low 3.70-5.30 [facility] Comment on above: Performed By: #### 1 [id number], 14716794, 3217441 #### [facility] (DEFAULT) [address] [place] [address] 88705 WBC (Bld) [#/Vol] 6.8 x10 Normal 3.5-10.5 [facility] Comment on above: Performed By: #### 1 [id number], 45236184, 2236036 #### [facility] (DEFAULT) [address] [place] [address] 54507 Electrolyte Panel Standardon 05-25-2020 Anion gap [Moles/Vol] 12.0 mmol/L Normal 5.0-19.0 [facility] Comment on above: Performed By: #### 1 [id number], 82408336, 8863833 #### [facility] (DEFAULT) [address] [place] [address] 73098 Chloride [Moles/Vol] 102 mmol/L Normal 101-111 [facility] Comment on above: Performed By: #### 1 [id number], 72507838, 7942490 #### [facility] (DEFAULT) [address] [place] [address] CO2 [Moles/Vol] 28 mmol/L Normal 21-32 [facility] Comment on above: Performed By: #### 1 [id number], 82337887, 6395836 #### [facility] (DEFAULT) [address] [place] [address] Potassium [Moles/Vol] 4.0 mmol/L Normal 3.6-5.1 [facility] Comment on above: Performed By: #### 1 [id number], 78846443, 5563167 #### [facility] (DEFAULT) [address] [place] [address] Sodium [Moles/Vol] 138.0 mmol/L Normal 136.0-144.0 [facility] Comment on above: Performed By: #### 1 [id number], 77170726, 3116238 #### [facility] (DEFAULT) [address] [place] [address] 69420 PTon 05-25-2020 INR Coag (PPP) [Relative time] 1.89 {INR} High 0.91-1.11 [facility] Comment on above: Performed By: #### 1 [id number], 89117342, 4865769 #### [facility] (DEFAULT) [address] [place] [address] PT Coag (PPP) [Time] 18.6 second(s) High 9.7-11.8 [facility] Comment on above: Performed By: #### 1 [id number], 07273528, 4677757 #### [facility] (DEFAULT) [address] [place] [address] Progress Note - Nurseon 04-29 Progress Note - Nurse pt requiring three assist to get back to bed. appears hesitant and scared with movement. states the oxy has been helping her pain today butlacking confidence with her mobility. educated importance of kicking leg out as instructed by PT. positioned and will give pain meds to keep comfortable [Electronically Signed on: 05/25/2020 18:51 EDT] [place], Hope RN [Verified on: 05/25/2020 18:51 EDT] Jessica Abernathy RN [facility] Progress Note - Nurse Unable to get mask to fit correctly so placed on 2 L overnight. [Electronically Signed on: 05/25/2020 01:45 EDT] Lyndsay Lou RN [Verified on: 05/25/2020 01:45 EDT] Lyndsay Lou RN [facility] Progress Note - Nurse Pt asleep with cpap mask off, woke her to put it back on. [Electronically Signed on: 05/25/2020 01:33 EDT] Lyndsay Lou RN [Verified on: 05/25/2020 01:33 EDT] Lyndsay Lou RN [facility] Progress Note - Nurse Pt up to bedside commode with 2 assist and walker, transfers very poorly and reports alot of knee pain. [Electronically Signed on: 05/25/2020 00:22 EDT] Lyndsay Lou RN [Verified on: 05/25/2020 00:22 EDT] Lyndsay Lou RN [facility] RBC.on 05-25-2020 RBC (Bld) [#/Vol] # of Units: 1 RBC Indication: Post-Op Bleed Additional Units?: No Date Needed: 05/25/2002 Red Cell Status: RBC Ready [facility] Comment on above: Performed By: #### 1 [id number], [id number], [id number] #### [facility] (DEFAULT) [address] [place] [address] .Auto Diff 1on 05-24-2020 Auto Leake % 9 % Normal 1-12 [facility] Comment on above: Performed By: #### 1 [id number], 68642079, [id number] #### [facility] (DEFAULT) [address] [place] [address] Baso Abs# 0.0 x10 Normal 0.0-0.2 [facility] Comment on above: Performed By: #### 1 [id number], 42883165, 9184913 #### [facility] (DEFAULT) [address] [place] [address] Basophils/100 WBC (Bld) 0.2 % Normal 0.2-2.0 [facility] Comment on above: Performed By: #### 1 [id number], 61849347, 1620490 #### [facility] (DEFAULT) [address] [place] [address] Eos Abs# 0.0 x10 Normal 0.0-0.4 [facility] Comment on above: Performed By: #### 1 [id number], 92668133, 4864830 #### [facility] (DEFAULT) [address] [place] [address] Eosinophils/100 WBC (Bld) 0.0 % Low 0.9-4.0 [facility] Comment on above: Performed By: #### 1 [id number], 78970952, 3809623 #### [facility] (DEFAULT) [address] [place] [address] Lymphocytes (Bld) [#/Vol] 0.7 x10 Low 1.3-2.9 [facility] Comment on above: Performed By: #### 1 [id number], 12335104, 1910219 #### [facility] (DEFAULT) [address] [place] [address] Lymphocytes/100 WBC (Bld) 6 % Low 14-48 [facility] Comment on above: Performed By: #### 1 [id number], 22900968, 1491370 #### [facility] (DEFAULT) [address] [place] [address] Leake Abs# 0.9 x10 High 0.0-0.8 [facility] Comment on above: Performed By: #### 1 [id number], 73520617, 3728298 #### [facility] (DEFAULT) [address] [place] [address] Neut Abs# 8.7 x10 Normal 1.5-9.2 [facility] Comment on above: Performed By: #### 1 [id number], 65151391, 4184663 #### [facility] (DEFAULT) [address] [place] [address] Neutrophils/100 WBC (Bld) 84 % Normal 44-88 [facility] Comment on above: Performed By: #### 1 [id number], 66118827, 1087225 #### [facility] (DEFAULT) [address] [place] [address] Standardon 05-24-2020 eGFR Non AA >60 [facility] Comment on above: Performed By: #### 1 [id number], 54247516, 9253241 #### [facility] (DEFAULT) [address] [place] [address] eGFR AA >60 [facility] Comment on above: Result Comment: Marketing Financial Analyst ghazal Kidney disease could be indicated at eGFRs of less than 60 ml/min/1.73m2. Kidney Failure is indicated at less than 15 ml/min/1.73m2 Performed By: #### 1 [id number], 24696164, 5633110 #### [facility] (DEFAULT) [address] [place] [address] Anion gap [Moles/Vol] 13.0 mmol/L Normal 5.0-19.0 [facility] Comment on above: Performed By: #### 1 [id number], 60699370, 8639324 #### [facility] (DEFAULT) [address] [place] [address] 23317 Calcium [Mass/Vol] 8.5 mg/dL Low 8.9-10.3 [facility] Comment on above: Performed By: #### 1 [id number], 22440608, 0673301 #### [facility] (DEFAULT) [address] [place] [address] 22537 Chloride [Moles/Vol] 102 mmol/L Normal 101-111 [facility] Comment on above: Performed By: #### 1 [id number], 12572419, 9311409 #### [facility] (DEFAULT) [address] [place] [address] 96117 CO2 [Moles/Vol] 27 mmol/L Normal 21-32 [facility] Comment on above: Performed By: #### 1 [id number], 04597260, 7632392 #### [facility] (DEFAULT) [address] [place] [address] 30083 Creatinine [Mass/Vol] 0.57 mg/dL Low 0.60-1.30 [facility] Comment on above: Performed By: #### 1 [id number], 40317533, 0528534 #### [facility] (DEFAULT) [address] [place] [address] 09231 Glucose [Mass/Vol] 134.0 mg/dL High 74.0-118.0 [facility] Comment on above: Performed By: #### 1 [id number], 59542070, 6920301 #### [facility] (DEFAULT) [address] [place] [address] 15094 Osmolality [Osmolality] 280 mOsm/L [facility] Comment on above: Performed By: #### 1 [id number], 29847687, 8743801 #### [facility] (DEFAULT) [address] [place] [address] 71996 Potassium [Moles/Vol] 4.4 mmol/L Normal 3.6-5.1 [facility] Comment on above: Performed By: #### 1 [id number], 69013155, 3438759 #### [facility] (DEFAULT) [address] [place] [address] Sodium [Moles/Vol] 138.0 mmol/L Normal 136.0-144.0 [facility] Comment on above: Performed By: #### 1 [id number], 85270325, 4608410 #### [facility] (DEFAULT) [address] [place] [address] Urea nitrogen [Mass/Vol] 19 mg/dL Normal 8-26 [facility] Comment on above: Performed By: #### 1 [id number], 28372341, 8206518 #### [facility] (DEFAULT) [address] [place] [address] Urea nitrogen/Creatinine [Mass ratio] 33.0 mg/mg High 4.6-16.2 [facility] Comment on above: Performed By: #### 1 [id number], 24686408, 3401149 #### [facility] (DEFAULT) [address] [place] [address] CBC w/ Auto Diffon 0 Erythrocyte distribution width (RBC) [Ratio] 17.4 % High 11.5-15.0 [facility] Comment on above: Performed By: #### 7 [id number], 30556314, [id number] #### [facility] (DEFAULT) [address] [place] [address] Hematocrit (Bld) [Volume fraction] 29.3 % Low 33.7-40.4 [facility] Comment on above: Performed By: #### 7 858384, 78363557, [id number] #### [facility] (DEFAULT) [address] [place] [address] Hemoglobin (Bld) [Mass/Vol] 8.7 g/dL Low 11.3-15.9 [facility] Comment on above: Performed By: #### 7 186729, 25861760, [id number] #### [facility] (DEFAULT) [address] [place] [address] 17454 Man Diff? Auto Normal [facility] Comment on above: Performed By: #### 7 621165, 41511637, [id number] #### [facility] (DEFAULT) [address] [place] [address] 98568 MCH (RBC) [Entitic mass] 24 pg Normal 24-34 [facility] Comment on above: Performed By: #### 7 339066, 68264073, [id number] #### [facility] (DEFAULT) [address] [place] [address] 41386 MCHC (RBC) [Mass/Vol] 30 g/dL Normal 26-37 [facility] Comment on above: Performed By: #### 7 666196, 09579977, [id number] #### [facility] (DEFAULT) [address] [place] [address] 53926 MCV (RBC) [Entitic vol] 81 fL Normal 81-100 [facility] Comment on above: Performed By: #### 7 315561, 33458519, [id number] #### [facility] (DEFAULT) [address] [place] [address] 80128 Platelet mean volume (Bld) [Entitic vol] 10.6 fL High 6.3-10.2 [facility] Comment on above: Performed By: #### 7 906910, 73804484, 4058583965 #### [facility] (DEFAULT) [address] [place] [address] 09128 Platelets (Bld) [#/Vol] 211 x10 Normal 138-427 [facility] Comment on above: Performed By: #### 7 486374, 49265427, [id number] #### [facility] (DEFAULT) [address] [place] [address] 02162 RBC (Bld) [#/Vol] 3.63 x10 Low 3.70-5.30 [facility] Comment on above: Performed By: #### 7 026406, 35983517, [id number] #### [facility] (DEFAULT) [address] [place] [address] 58303 WBC (Bld) [#/Vol] 10.4 x10 Normal 3.5-10.5 [facility] Comment on above: Performed By: #### 7 449332, 09258413, [id number] #### [facility] (DEFAULT) [address] [place] [address] Nutrition Noteon 05-24-2020 Nutrition Note Diet ordered as 3000kcal, DM w/ Boost Glucose Control BID. Diet adjusted to 2gr Na to reflect Pts home diet and supplement changed to Ensure Compact BID which is available in house. Pt does not have DM. Will continue to monitor. Normal [facility] PTon 05-24-2020 INR Coag (PPP) [Relative time] 1.21 {INR} High 0.91-1.11 [facility] Comment on above: Performed By: #### 1 [id number], 09130456, 0992765 #### [facility] (DEFAULT) [address] [place] [address] PT Coag (PPP) [Time] 12.3 second(s) High 9.7-11.8 [facility] Comment on above: Performed By: #### 1 [id number], 53047445, 7959980 #### [facility] (DEFAULT) [address] [place] [address] Pharmacy Noteon 05-24-2020 Pharmacy Note I have [...] [Verified on: 05/24/2020 16:28 EDT] Kellee Molina [facility] Progress Note - Nurseon 06-2 Progress Note - Nurse pts pain becming worse. giving 10mg oxy po every four hours, polar care in place and dr epperson notified of pain not controlled. will administer po gabepentin per order. will continue to monitor [Electronically Signed on: 05/24/2020 17:20 EDT] Jessica Abernathy RN [Verified on: 05/24/2020 17:20 EDT] Jessica Abernathy RN [facility] Progress Note - Nurse pt requires assistance getting in and out of bed. still a little stiff from surgery but does ok once up w the walker. pain so far has been controlled w 10 mg po oxy. [Electronically Signed on: 05/24/2020 10:54 EDT] Jessica Abernathy RN [Verified on: 05/24/2020 10:54 EDT] Jessica Abernathy RN [facility] ABORhon 05-23-2020 [facility] and group Nom (d) Hx Check: Not Found Anti-A: 4+ Anti-B: 0 Anti-D: 4+ DCon: NT A1: mf+ B: 4+ ABORh Interp: A POS [facility] Comment on above: Performed By: #### 7 [id number], 56296862, [id number] #### [facility] ([facility] [address] [place] [address] ABORh Retypeon 05-23-2020 [facility] and group Nom (d) Ordered by Discern. Anti-A: 4+ Anti-B: 0 Anti-D: 4+ DCon: NT A1: mf+ B: 4+ ABORh Retype: A POS [facility] Comment on above: Performed By: #### 7 966504, 66632585, [id number] #### [facility] (DEFAULT) [address] [place] [address] ABSC Gelon 05-23-2020 ABSC Gel Negative Normal [facility] Comment on above: Performed By: #### 7 637010, 76149004, [id number] #### [facility] (DEFAULT) [address] [place] [address] Anesthesia Noteon 05-23-2020 Anesthesia Note Patient: KEY [...] history): All Problems Anemia / SNOMED CT 136919082 / Confirmed At risk of pressure sore / SNOMED CT 043673629 / Confirmed Cardiomyopathy / SNOMED CT 197518275 / Confirmed DVT (deep venous thrombosis) / SNOMED CT 077177103 / Confirmed GERD (gastroesophageal reflux disease) / SNOMED CT 085790220 / Confirmed Hyperlipidemia / SNOMED CT 82869378 / Confirmed Hypertension / SNOMED CT 4702802824 / Confirmed Lumbar spondylosis / SNOMED CT 536716371 / Confirmed Mass / SNOMED CT 028971532 / Confirmed KERMIT (obstructive sleep apnea) / SNOMED CT 683337267 / Confirmed Pulmonary hypertension / SNOMED CT 543050645 / Confirmed Seizure / SNOMED CT 122782139 / Confirmed Venous insufficiency / SNOMED CT 095377527 / Confirmed Resolved: Adrenal adenoma / SNOMED CT 493684756 Resolved: Pulmonary emboli / SNOMED CT 64667882 Histories Family History: Diabetes mellitus Sister Heart attack Father Leukemia Father Stroke.... Mother Procedure history: Cholecystectomy (70384087). Colectomy (52647687). Colonoscopy (747927348). Jaspreet filter (111773278). Femur fracture, right (18250188). Shoulder (08493272). Comments: 02/08/2020 9:57 Stacy Reynolds RN torn rotator cuff 02/08/2020 7:28 Stacy Reynolds RN arthroplasty Knee arthroplasty (738413091). Craniotomy (98382585). Laminectomy (0178009654). Comments: 02/08/2020 7:30 Stacy Reynolds RN foraminotomy, facetectomy with decompression and fusion Cataract (942183431). Social History Electronic Cigarette/Vaping Assessment Electronic Cigarette [...] Oriented. Review / Management Laboratory Results Plan [place] [employer]#( A) physical status classification: Class III. Anesthetic Preoperative Plan Anesthesia: General. , Regional Left Adductor Canal Block. Anesthetic plan, risks, benefits, and alternatives discussed with the patient and/or family. Risks discussed: nausea, vomiting, sore throat, serious complications. Patient verbalized understanding. Informed consent was given. Consent was signed by the patient. [Electronically Signed on: 05/23/2020 13:34 EDT] Maico Sandhu DO [Verified on: 05/23/2020 13:34 EDT] Maico Sandhu DO [facility] Blood Bank IDon 05-23-2020 Blood Bank ID BBID: [id number] [facility] Comment on above: Performed By: #### 7 [id number], 89360907, [id number] #### [facility] (DEFAULT[facility] [address] [place] [address] 01695 Extra [place]snabrock 05-23-2020 Tube Collected Yes [facility] Comment on above: Performed By: #### 7 273833, 32774289, [id number] #### [facility] (DEFAULT) [address] [place] [address] 48766 Tube Collected Yes [facility] Comment on above: Performed By: #### 7 290329, 89030366, [id number] #### [facility] (DEFAULT) [address] [place] [address] 12215 Hgbon 05-23-2020 Hemoglobin (Bld) [Mass/Vol] 10.1 g/dL Low 11.3-15.9 [facility] Comment on above: Performed By: #### 7 569996, 96372831, [id number] #### [facility] (DEFAULT) [address] [place] [address] 40506 MAGR Intraoperative Recordon 05-23-2020 MAGR Intraoperative Record MAGR Intra-Op Record Summary Primary Physician: FERNANDO SILVA Finalized Date/Time: 05/23/20 16:19:21 Pt. Name: SANDRA TAVAREZ/Sex: 1940 FEMALE Med Rec #: [id number] Physician: FERNANDO SILVA Financial #: [id number] Pt. Type: I Room/Bed: [facility]/ Admit/Disch: 05/23/20 09:44:18 - Institution: Case Times [...] Role Performed Surgeon - Primary Anesthesiologist of Assembler Molded Frames Record Time In 05/23/20 13:19:00 05/23/20 13:19:00 05/23/20 13:19:00 Time Out 05/23/20 16:17:00 05/23/20 16:17:00 05/23/20 15:52:00 Procedure Arthroplasty Knee Arthroplasty Knee Arthroplasty Knee Total(Left) Total(Left) Total(Left) Last Modified By: Shanique Brown RN, Barbara RN Long, Barbara RN 05/23/20 16:19:02 05/23/20 16:19:02 05/23/20 16:19:02 Entry 4 Entry 5 Entry 6 Case Attendee Thomas ANN, Sridhar Vallejo Jennifer RN Regina REGIONAL DRIVER Role Performed Scrub Personnel Laboratory Animal Caretaker Laboratory Animal Caretaker Time In 05/23/20 13:19:00 05/23/20 13:19:00 05/23/20 [...] Initial Count Time 05/23/20 13:15:00 Performed By Thomas REGIONAL DRIVER, Pam Counts Verification Final Counts Items Included in Sponges, Sharps Final Count Method Manual Final Count Final Count Status Correct Final Counts Shanique Brown RN, Performed By Thomas ANN, Pam Final Count Time 05/23/20 15:32:00 Surgeon notified [...] Implanted/Explanted By: Size 6.5mm 48mm 29MM [employer] Geospatial Developer [employer] Catalog # Lot Number [id number] Expiration Date 10/27/29 11/27/29 10/27/29 Serial Number REF [id number] REF [id number] REF [id number] Device Identifier Human Readable CHASE Machine Readable CHASE MR Class Implant Usage Data Site Knee L Knee L Knee L Quantity 1 1 1 Reason for Explant Reason Not Retained Explant Disposition Litigation Specialist Sterility External Indicator Result Internal Indicator Results [...] C D 15MM ISADORA X 30MM L Geospatial Developer WALESKA WALESKA WALESKA Catalog # Lot Number [id number] Expiration Date 02/25/30 01/25/25 08/27/29 Serial Number REF [id number] RE 59 [id number] 10 REF [id number] 15 Device Identifier Human Readable CHASE Machine Readable CHASE MR Class Implant Usage Data Site Knee L Knee L Knee L Quantity 1 1 1 Reason for Explant Reason Not Retained Explant Disposition Litigation Specialist Sterility External Indicator Result Internal Indicator Results [...] By: Size 29 MM ISADORA 4 D Geospatial Developer WALESKA WALESKA WAL[employer] Catalog # Lot Number [id number] Expiration Date 09/27/27 09/25/29 07/28/26 Serial Number REF [id number] REF [id number] 02 REF [id number] Device Identifier Human Readable CHASE Machine Readable CHASE MR Class Implant Usage Data Site Knee L Knee L Knee L Quantity 1 1 1 Reason for Explant Reason Not Retained Explant Disposition Litigation Specialist Sterility External Indicator Result Internal Indicator Results [...] Date/Time Implanted/Explanted FERNANDO SILVA GEORGE By: Size Geospatial Developer WALESKA/BIOMET WALESKA/BIOMET Catalog # Lot Number [id number] Expiration Date 05/27/24 05/27/24 Serial Number REF [id number] REF [id number] Device Identifier Human Readable CHASE Machine Readable CHASE MR Class Implant Usage Data Site Knee L Knee L Quantity 1 1 Reason for Explant Reason Not Retained Explant Disposition Litigation Specialist Sterility External Indicator Result Internal Indicator Results [...] Condition Intact Description Report Given To Shanique Brwon RN Airway Maintenance Patient Status Stable Oxygen in Use? Yes Airway Device Simple mask Flow Rate 15 L/min Last Modified By: Shanique Brown RN 05/23/20 16:19:17 Case Comments Finalized By: Shanique Brown RN Document Signatures Signed By: Shanique Brown RN 05/23/20 16:19 [facility] MAGR Intraoperative Record MAGR Intra-Op Record Summary Primary Physician: Finalized Date/Time: 05/23/20 13:14:24 Pt. Name: SANDRA TAVAREZ Lyndsay ValdezB./Sex: 1940 FEMALE Med Rec #: [id number] Physician: FERNANDO SILVA Financial #: [id number] Pt. Type: I Room/Bed: [facility] Admit/Disch: 05/23/20 09:44:18 - Institution: Case Times [...] Warga, Laura RN Role Performed Anesthesiologist of Assembler Molded Frames Assembler Molded Frames Record Time In 05/23/20 12:58:00 05/23/20 12:58:00 [...] Signed By: Stacy Pena RN 05/23/20 [facility]14 [facility] PAC[facility] Record [facility] PACU Record Summary Primary Physician: FERNANDO SILVA Finalized Date/Time: 05/23/20 16:49:56 Pt. Name: SANDRA TAVAREZ/Sex: 1940 FEMALE Med Rec #: [id number] Physician: FERNANDO SILVA Financial #: [id number] Pt. Type: I Room/Bed: 234/1 Admit/Disch: 05/23/20 09:44:18 - Institution: PACU Case Times MAGR Entry 1 In PACU I 05/23/20 16:18:00 Discharge from PACU 05/23/20 16:51:00 I Last Modified By: Shanique Brown RN 05/23/20 16:49:54 Finalized By: Shanique Brown RN Document Signatures Signed By: Shanique Brown RN 05/23/20 16:49 Normal [facility] Nutrition Noteon 05-23-2020 Nutrition Note Pt [...] r/t age greater than 65y and surgery. Normal [facility] PTon 05-23-2020 INR Coag (PPP) [Relative time] 1.22 {INR} High 0.91-1.11 [facility] Comment on above: Performed By: #### 7 [id number], [id number], [id number] #### [facility] (DEFAULT) [address] [place] [address] 09979 PT Coag (PPP) [Time] 12.4 second(s) High 9.7-11.8 [facility] Comment on above: Result Comment: Call ed Shira in Pre - Surg at 1059 Performed By: #### 7 [id number], [id number], [id number] #### [facility] (DEFAULT) [address] [place] [address] 13880 SARS-CoV-2 (COVID-19) PCRon 05-23-2020 COVID-19 PCR Not Detected Normal Not Detected [facility] Comment on above: Result Comment: perf ormed in house Results Called To Stacy in pre-surg By ARIADNA And Read Back For Confirmation On 05/23/2020 10:55:59 EDT Performed By: #### 7 [id number], [id number], [id number] #### [facility] (DEFAULT) [address] [place] [address] XR Knee One or Two Views Lef [...] Cardona 05/23/20 4:50 pm Technologist: Michelle BLANTON [facility] Progress Note - Nurseon 04-28 Progress Note - Nurse Chart reviewed by Dr. Maria and no new orders received. May proceed to surgery. [Electronically Signed on: 05/07/2020 15:56 EDT] Chrissie Contreras RN [Verified on: 05/07/2020 15:56 EDT] Chrissie Contreras RN [facility] Coding Summaryon 02-27-2020 Coding Summary CODING DATE: 02/27/2020 [facility] STATUS: Home PAYOR: Medicare APC [...] Fang Revised Date Saved: 02/27/2020 01:41 pm [facility] Progress Note - Nurseon 01-26 Progress Note - Nurse Chart reviewed by Dr. Garcia and no new orders received. [Electronically Signed on: 02/12/2020 15:52 EDT] Chrissie Contreras RN [Verified on: 02/12/2020 15:52 EDT] Chrissie Contreras RN [facility] Provider Orderson 02-11-2020 Provider Orders [id number] [facility] C Urineon 02-10-2020 C Urine Urine Culture ordere d as a result of parameters set on specific urine dip and urine microsopic results. Mixed skin, or urogenital paddy. Clinically insignificant [facility] Comment on above: Performed By: #### 1 [id number], [id number], [id number] #### [facility] (DEFAULT) [address] [place] [address] .Auto Diff 1on 02-08-2020 Auto Leake % 12 % Normal 12-09 [facility] Comment on above: Performed By: #### 7 [id number], [id number], [id number] #### [facility] (DEFAULT) [address] [place] [address] Baso Abs# 0.0 x10 Normal 0.0-0.2 [facility] Comment on above: Performed By: #### 7 [id number], [id number], [id number] #### [facility] (DEFAULT) [address] [place] [address] 75693 Basophils/100 WBC (Bld) 0.4 % Normal 0.2-2.0 [facility] Comment on above: Performed By: #### 7 [id number], [id number], [id number] #### [facility] (DEFAULT) [address] [place] [address] 69910 Eos Abs# 0.1 x10 Normal 0.0-0.4 [facility] Comment on above: Performed By: #### 7 041338, [id number], [id number] #### [facility] (DEFAULT) [address] [place] [address] 06964 Eosinophils/100 WBC (Bld) 1.9 % Normal 0.9-4.0 [facility] Comment on above: Performed By: #### 7 976880, [id number], [id number] #### [facility] (DEFAULT) [address] [place] [address] 79109 Lymphocytes (Bld) [#/Vol] 1.0 x10 Low 1.3-2.9 [facility] Comment on above: Performed By: #### 7 630042, [id number], [id number] #### [facility] (DEFAULT) [address] [place] [address] 39701 Lymphocytes/100 WBC (Bld) 22 % Normal 14-48 [facility] Comment on above: Performed By: #### 7 [id number], [id number], [id number] #### [facility] (DEFAULT) [address] [place] [address] 10938 Leake Abs# 0.6 x10 Normal 0.0-0.8 [facility] Comment on above: Performed By: #### 7 656626, [id number], [id number] #### [facility] (DEFAULT) [address] [place] [address] 85161 Neut Abs# 3.0 x10 Normal 1.5-9.2 [facility] Comment on above: Performed By: #### 7 385275, [id number], [id number] #### [facility] (DEFAULT) [address] [place] [address] 21025 Neutrophils/100 WBC (Bld) 64 % Normal 44-88 [facility] Comment on above: Performed By: #### 7 901268, [id number], [id number] #### [facility] (DEFAULT) [address] [place] [address] 63508 [facility] Standardon 02-08-2020 eGFR Non AA >60 [facility] Comment on above: Performed By: #### 7 925118, [id number], [id number] #### [facility] (DEFAULT) [address] [place] [address] 97134 eGFR AA >60 [facility] Comment on above: Result Comment: Marketing Financial Analyst ghazal Kidney disease could be indicated at eGFRs of less than 60 ml/min/1.73m2. Kidney Failure is indicated at less than 15 ml/min/1.73m2 Performed By: #### 7 922709, [id number], [id number] #### [facility] (DEFAULT) [address] [place] [address] 86207 Anion gap [Moles/Vol] 15.0 mmol/L Normal 5.0-19.0 [facility] Comment on above: Performed By: #### 7 172355, [id number], [id number] #### [facility] (DEFAULT) [address] [place] [address] 36980 Calcium [Mass/Vol] 9.4 mg/dL Normal 8.9-10.3 [facility] Comment on above: Performed By: #### 7 660315, [id number], [id number] #### [facility] (DEFAULT) [address] [place] [address] 97940 Chloride [Moles/Vol] 102 mmol/L Normal 101-111 [facility] Comment on above: Performed By: #### 7 707770, [id number], [id number] #### [facility] (DEFAULT) [address] [place] [address] 04291 CO2 [Moles/Vol] 26 mmol/L Normal 21-32 [facility] Comment on above: Performed By: #### 7 653245, [id number], [id number] #### [facility] (DEFAULT) [address] [place] [address] 52462 Creatinine [Mass/Vol] 0.64 mg/dL Normal 0.60-1.30 [facility] Comment on above: Performed By: #### 7 772527, [id number], [id number] #### [facility] (DEFAULT) [address] [place] [address] 51665 Glucose [Mass/Vol] 112.0 mg/dL Normal 74.0-118.0 [facility] Comment on above: Performed By: #### 7 680378, [id number], [id number] #### [facility] (DEFAULT) [address] [place] [address] 88389 Osmolality [Osmolality] 280 mOsm/L [facility] Comment on above: Performed By: #### 7 785211, [id number], [id number] #### [facility] (DEFAULT) [address] [place] [address] 80770 Potassium [Moles/Vol] 4.1 mmol/L Normal 3.6-5.1 [facility] Comment on above: Performed By: #### 7 757256, 81230755, [id number] #### [facility] (DEFAULT) [address] [place] [address] 33884 Sodium [Moles/Vol] 139.0 mmol/L Normal 136.0-144.0 [facility] Comment on above: Performed By: #### 7 626770, [id number], [id number] #### [facility] (DEFAULT) [address] [place] [address] 27311 Urea nitrogen [Mass/Vol] 19 mg/dL Normal 8-26 [facility] Comment on above: Performed By: #### 7 000595, [id number], [id number] #### [facility] (DEFAULT) [address] [place] [address] 02994 Urea nitrogen/Creatinine [Mass ratio] 30.0 mg/mg High 4.6-16.2 [facility] Comment on above: Performed By: #### 7 919762, 56061007, [id number] #### [facility] (DEFAULT) [address] [place] [address] CBC w/ Auto Diffon 0 Erythrocyte distribution width (RBC) [Ratio] 14.8 % Normal 11.5-15.0 [facility] Comment on above: Performed By: #### 7 751519, 95376088, [id number] #### [facility] (DEFAULT) [address] [place] [address] Hematocrit (Bld) [Volume fraction] 37.2 % Normal 33.7-40.4 [facility] Comment on above: Performed By: #### 7 900767, [id number], [id number] #### [facility] (DEFAULT) [address] [place] [address] Hemoglobin (Bld) [Mass/Vol] 11.6 g/dL Normal 11.3-15.9 [facility] Comment on above: Performed By: #### 7 038081, 95960215, [id number] #### [facility] (DEFAULT) [address] [place] [address] Man Diff? Auto Normal [facility] Comment on above: Performed By: #### 7 159385, [id number], [id number] #### [facility] (DEFAULT) [address] [place] [address] MCH (RBC) [Entitic mass] 26 pg Normal 24-34 [facility] Comment on above: Performed By: #### 7 120054, [id number], [id number] #### [facility] (DEFAULT) [address] [place] [address] MCHC (RBC) [Mass/Vol] 31 g/dL Normal 26-37 [facility] Comment on above: Performed By: #### 7 595368, 95427316, [id number] #### [facility] (DEFAULT) [address] [place] [address] MCV (RBC) [Entitic vol] 83 fL Normal 81-100 [facility] Comment on above: Performed By: #### 7 323005, 99329013, [id number] #### [facility] (DEFAULT) [address] [place] [address] Platelet mean volume (Bld) [Entitic vol] 10.8 fL High 6.3-10.2 [facility] Comment on above: Performed By: #### 7 375914, [id number], [id number] #### [facility] (DEFAULT) [address] [place] [address] 06251 Platelets (Bld) [#/Vol] 218 x10 Normal 138-427 [facility] Comment on above: Performed By: #### 7 857574, [id number], [id number] #### [facility] (DEFAULT) [address] [place] [address] 21637 RBC (Bld) [#/Vol] 4.47 x10 Normal 3.70-5.30 [facility] Comment on above: Performed By: #### 7 358423, 65430844, [id number] #### [facility] (DEFAULT) [address] [place] [address] 67469 WBC (Bld) [#/Vol] 4.8 x10 Normal 3.5-10.5 [facility] Comment on above: Performed By: #### 7 371644, 34071589, [id number] #### [facility] (DEFAULT) [address] [place] [address] UA [id number] 02-08-2020 RBC (U) [#/Vol] None Seen [facility] Comment on above: Order Comment: Urina lysis Microscopic order added on by Discern Expert Rules system. Performed By: #### 1 [id number], [id number], [id number] #### [facility] (DEFAULT) [address] [place] [address] 72866 UA Bacteria 2+ Normal [facility] Comment on above: Order Comment: Urina lysis Microscopic order added on by Discern Expert Rules system. Performed By: #### 1 [id number], [id number], [id number] #### [facility] (DEFAULT) [address] [place] [address] 34897 UA Squam Epi Moderate Normal [facility] Comment on above: Order Comment: Urina lysis Microscopic order added on by Discern Expert Rules system. Performed By: #### 1 [id number], [id number], [id number] #### [facility] (DEFAULT) [address] [place] [address] 66801 UA WBC 3-5 Normal [facility] Comment on above: Order Comment: Urina lysis Microscopic order added on by Discern Expert Rules system. Performed By: #### 1 [id number], [id number], [id number] #### [facility] (DEFAULT) [address] [place] [address] UA w Culture if Ind Standard on 02-08-2020 Breakpoint UA [facility] Comment on above: Performed By: #### 1 [id number], [id number], [id number] #### [facility] (DEFAULT) [address] [place] [address] Color (U) Yellow [facility] Comment on above: Performed By: #### 1 [id number], [id number], [id number] #### [facility] (DEFAULT) [address] [place] [address] Culture? Yes Normal [facility] Comment on above: Performed By: #### 1 [id number], [id number], [id number] #### [facility] (DEFAULT) [address] [place] [address] Glucose (U) [Mass/Vol] Negative [facility] Comment on above: Performed By: #### 1 [id number], [id number], [id number] #### [facility] (DEFAULT) [address] [place] [address] Ketones Ql (U) Negative [facility] Comment on above: Performed By: #### 1 [id number], 29462839, [id number] #### [facility] (DEFAULT) [address] [place] [address] 19311 Micro? Indicated [facility] Comment on above: Performed By: #### 1 [id number], [id number], [id number] #### [facility] (DEFAULT) [address] [place] [address] 70549 UA Bilirubin Negative Normal [facility] Comment on above: Performed By: #### 1 [id number], [id number], [id number] #### [facility] (DEFAULT) [address] [place] [address] 86906 UA Blood Negative Normal NEGATIVE [facility] Comment on above: Performed By: #### 1 [id number], 55703844, [id number] #### [facility] (DEFAULT) [address] [place] [address] 58123 UA Clarity SL CLOUDY Abnormal CLEAR [facility] Comment on above: Performed By: #### 1 [id number], [id number], [id number] #### [facility] (DEFAULT) [address] [place] [address] 51448 UA Leuk Est TRACE Abnormal NEGATIVE [facility] Comment on above: Performed By: #### 1 [id number], [id number], [id number] #### [facility] (DEFAULT) [address] [place] [address] 10462 UA Nitrite Negative Normal NEGATIVE [facility] Comment on above: Performed By: #### 1 [id number], 86092678, [id number] #### [facility] (DEFAULT) [address] [place] [address] 99406 UA pH 6.0 Normal 5-8 [facility] Comment on above: Performed By: #### 1 [id number], 39788838, [id number] #### [facility] (DEFAULT) [address] [place] [address] 15691 UA Protein Negative Normal NEGATIVE [facility] Comment on above: Performed By: #### 1 [id number], [id number], [id number] #### [facility] (DEFAULT) [address] [place] [address] 77528 UA Spec Grav 1.025 Normal 1.001-1.035 [facility] Comment on above: Performed By: #### 1 [id number], [id number], [id number] #### [facility] (DEFAULT) [address] [place] [address] 65079 UA Urobilinogen 0.2 mg/dL Normal 0.2-1.0 [facility] Comment on above: Performed By: #### 1 [id number], [id number], [id number] #### [facility] (DEFAULT) [address] [place] [address] Urine Source Clean Catch [facility] Comment on above: Performed By: #### 1 [id number], [id number], [id number] #### [facility] (DEFAULT) [address] [place] [address] XR Knee Complete Left Standi ngon 02-08-2020 XR Knee Complete Left Standing EXAM: [...] Mcpherson 02/08/20 3:02 pm Technologist: Rony ANTONIO [facility] Vital Signs Date Time Vital Sign Value Performing Clinician Facility 04-30-2024 15:05-0400 Diastolic blood pressure 70 mm[Hg] [facility] 04-30-2024 15:05-0400 Heart rate 98 /min [facility] 04-30-2024 15:05-0400 SaO2% (BldA) [Mass fraction] 97 % [facility] 04-30-2024 15:05-0400 Systolic blood pressure 126 mm[Hg] [facility] 03-29-2024 10:44-0400 Body height 152.4 cm [facility] 03-29-2024 10:44-0400 Body mass index (BMI) [Ratio] 53.6 kg/m2 [facility] 03-29-2024 10:44-0400 Body weight 124.45 kg [facility] 03-29-2024 10:44-0400 Diastolic blood pressure 71 mm[Hg] [facility] 03-29-2024 10:44-0400 Heart rate 75 /min [facility] 03-29-2024 10:44-0400 Respiratory rate 16 /min [facility] 03-29-2024 10:44-0400 Systolic blood pressure 116 mm[Hg] [facility] 02-15-2024 14:20-0400 Body height 152.4 cm DO Robert Ball Work Phone: [facility] 02-15-2024 14:20-0400 Body mass index (BMI) [Ratio] 53.1 kg/m2 DO Robert Ball Work Phone: [facility] 02-15-2024 14:20-0400 Body weight 123.37 kg DO Robert Ball Work Phone: [facility] 02-15-2024 14:20-0400 Diastolic blood pressure 65 mm[Hg] DO Robert Ball Work Phone: [facility] 02-15-2024 14:20-0400 Heart rate 77 /min DO Robert Ball Work Phone: [facility] 02-15-2024 14:20-0400 Respiratory rate 16 /min DO Robert Ball Work Phone: [facility] 02-15-2024 14:20-0400 Systolic blood pressure 170 mm[Hg] DO Robert Ball Work Phone: [facility] 09-21-2023 14:00-0400 Body height 152.4 cm Robert Ball Other [facility] [employer] Other 09-21-2023 14:00-0400 Body mass index (BMI) [Ratio] 52.69 kg/m2 Robert Ball Other [facility] [employer] Other 09-21-2023 14:00-0400 Body weight 122.38 kg Robert Ball Other [facility] [employer] Other 09-21-2023 14:00-0400 Diastolic blood pressure 70 mm[Hg] Robert Ball Other [employer] Other 09-21-2023 14:00-0400 Respiratory rate 20 /min Robert Ball Other [employer] Other 09-21-2023 14:00-0400 Systolic blood pressure 150 mm[Hg] Robert Ball Other [employer] Other 08-15-2023 15:00-0400 Body height 152.4 cm Robert Ball Other [employer] Other 08-15-2023 15:00-0400 Body mass index (BMI) [Ratio] 54.33 kg/m2 Robert Ball Other [employer] Other 08-15-2023 15:00-0400 Body weight 126.19 kg Robert Ball Other [employer] Other 08-15-2023 15:00-0400 Diastolic blood pressure 79 mm[Hg] Robert Ball Other [employer] Other 08-15-2023 15:00-0400 Respiratory rate 16 /min Robert Ball Other [employer] Other 08-15-2023 15:00-0400 Systolic blood pressure 147 mm[Hg] Robert Ball Other [employer] Other 07-11-2023 11:00-0400 Body height 152.4 cm Robert Ball Other [employer] [facility] Other 07-11-2023 11:00-0400 Body mass index (BMI) [Ratio] 55.26 kg/m2 Robert Ball Other [employer] Other 07-11-2023 11:00-0400 Body weight 128.37 kg Robert Ball Other [employer] Other 07-11-2023 11:00-0400 Diastolic blood pressure 90 mm[Hg] Robert Ball Other [employer] Other 07-11-2023 11:00-0400 Respiratory rate 16 /min Robert Ball Other [employer] Other 07-11-2023 11:00-0400 Systolic blood pressure 140 mm[Hg] Robert Ball Other [employer] Other 05-25-2023 14:00-0400 Body height 152.4 cm Robert Ball Other [employer] Other 05-25-2023 14:00-0400 Body mass index (BMI) [Ratio] 54.25 kg/m2 Robert Ball Other [employer] Other 05-25-2023 14:00-0400 Body weight 126.01 kg Robert Ball Other [employer] Other 05-25-2023 14:00-0400 Diastolic blood pressure 76 mm[Hg] Robert Ball Other [employer] Other 05-25-2023 14:00-0400 Respiratory rate 16 /min Robert Ball Other [employer] Other 05-25-2023 14:00-0400 Systolic blood pressure 151 mm[Hg] Robert Ball Other [employer] Other 04-08-2023 12:15-0400 Body height 152.4 cm Robert Ball Other [employer] Other 04-08-2023 12:15-0400 Body mass index (BMI) [Ratio] 53.84 kg/m2 Robert Ball Other [employer] Other 04-08-2023 12:15-0400 Body weight 125.06 kg Robert Ball Other [employer] Other 04-08-2023 12:15-0400 Diastolic blood pressure 80 mm[Hg] Robert Ball Other [employer] Other 04-08-2023 12:15-0400 Respiratory rate 12 /min Robert Ball Other [employer] Other 04-08-2023 12:15-0400 Systolic blood pressure 124 mm[Hg] Robert Ball Other [employer] Other 03-23-2023 14:30-0400 Body height 152.4 cm Robert Ball Other [employer] Other 03-23-2023 14:30-0400 Body mass index (BMI) [Ratio] 53.82 kg/m2 Robert Ball Other [employer] Other 03-23-2023 14:30-0400 Body weight 125.01 kg Robert Ball Other [employer] Other 03-23-2023 14:30-0400 Diastolic blood pressure 84 mm[Hg] Robert Ball Other [employer] Other 03-23-2023 14:30-0400 Respiratory rate 12 /min Robert Ball Other [employer] Other 03-23-2023 14:30-0400 Systolic blood pressure 122 mm[Hg] Robert Ball Other [employer] Other 03-02-2023 12:00-0400 Body height 152.4 cm Robert Ball Other [employer] Other 03-02-2023 12:00-0400 Body mass index (BMI) [Ratio] 54.01 kg/m2 Robert Ball Other [employer] Other 03-02-2023 12:00-0400 Body weight 125.47 kg Robert Ball Other [employer] Other 03-02-2023 12:00-0400 Diastolic blood pressure 72 mm[Hg] Robert Ball Other [employer] Other 03-02-2023 12:00-0400 Respiratory rate 12 /min Robert [employer] Other [employer] Other 03-02-2023 12:00-0400 Systolic blood pressure 122 mm[Hg] Robert [employer] Other [employer] [facility] Other 02-14-2023 14:15-0400 Body height 152.4 cm Michael Dunaway Other [employer] Other 02-14-2023 14:15-0400 SaO2% (BldA) [Mass fraction] 98 % Michael Dunaway Other [employer] [facility] Other 01-27-2023 15:00-0500 Body height 152.4 cm Michael Dunaway Other [employer] Other 01-27-2023 15:00-0500 Diastolic blood pressure 84 mm[Hg] Michael Emelyn Other [employer] Other 01-27-2023 15:00-0500 SaO2% (BldA) [Mass fraction] 98 % Michael Emelyn Other [employer] [facility] Other 01-27-2023 15:00-0500 Systolic blood pressure 126 mm[Hg] Michael Dunaway Other [facility] Other 12-31-2022 12:30-0500 Body height 152.4 cm Michael Dunaway Other [facility] Other 12-31-2022 12:30-0500 SaO2% (BldA) [Mass fraction] 96 % Michael Dunaway Other [facility] Other 12-27-2022 11:15-0500 Body height 152.4 cm Ivon Batista Other [facility] Other 12-27-2022 11:15-0500 Body mass index (BMI) [Ratio] 53.08 kg/m2 Ivon Batista Other [facility] Other 12-27-2022 11:15-0500 Body temperature 96 [degF] Ivon Batista Other [facility] Other 12-27-2022 11:15-0500 Body weight 123.29 kg Ivon Batista Other [facility] Other 12-27-2022 11:15-0500 Diastolic blood pressure 92 mm[Hg] Ivon Batista Other [facility] Other 12-27-2022 11:15-0500 SaO2% (BldA) [Mass fraction] 96 % Ivon Batista Other [facility] Other 12-27-2022 11:15-0500 Systolic blood pressure 156 mm[Hg] Ivon Batista Other [facility] Other 12-02-2022 11:45-0500 Body height 152.4 cm Ursula Velarde Other [facility] Other 12-02-2022 11:45-0500 Diastolic blood pressure 80 mm[Hg] Ursula Velarde Other [facility] Other 12-02-2022 11:45-0500 SaO2% (BldA) [Mass fraction] 97 % Ursula Velarde Other [facility] Other 12-02-2022 11:45-0500 Systolic blood pressure 126 mm[Hg] Ursula Velarde Other [facility] Other 11-02-2022 12:15-0500 Body height 152.4 cm Michael Dunaway Other [facility] Other 11-02-2022 12:15-0500 Diastolic blood pressure 80 mm[Hg] Michaelrancho Dunaway Other [facility] Other 11-02-2022 12:15-0500 SaO2% (BldA) [Mass fraction] 98 % Michael Dunaway Other [facility] Other 11-02-2022 12:15-0500 Systolic blood pressure 140 mm[Hg] Michael Dunaway Other [facility] Other 09-11-2022 11:55-0400 Body height 152.4 cm Kaitlynn Foy Other [facility] Other 09-11-2022 11:55-0400 Body mass index (BMI) [Ratio] 50.77 kg/m2 Kaitlynn Foy Other [facility] Other 09-11-2022 11:55-0400 Body temperature 96.8 [degF] Kaitlynn Foy Other [facility] Other 09-11-2022 11:55-0400 Body weight 117.94 kg Kaitlynn Foy Other [facility] Other 09-11-2022 11:55-0400 Respiratory rate 18 /min Kaitlynn Foy Other [facility] Other 09-11-2022 11:55-0400 SaO2% (BldA) [Mass fraction] 97 % Kaitlynn Foy Other [facility] Other 09-10-2022 12:30-0400 Body height 152.4 cm Michael Dunaway Other [facility] Other 09-10-2022 12:30-0400 Diastolic blood pressure 80 mm[Hg] Michael Dunaway Other [facility] Other 09-10-2022 12:30-0400 SaO2% (BldA) [Mass fraction] 99 % Michael Dunaway Other [facility] Other 09-10-2022 12:30-0400 Systolic blood pressure 120 mm[Hg] Michael Dunaway Other [facility] Other 07-29-2022 17:45-0400 Body height 152.4 cm Michael Dunaway Other [facility] Other 07-29-2022 17:45-0400 Diastolic blood pressure 76 mm[Hg] Michael Dunaway Other [facility] Other 07-29-2022 17:45-0400 SaO2% (BldA) [Mass fraction] 99 % Michael Dunaway Other [facility] Other 07-29-2022 17:45-0400 Systolic blood pressure 124 mm[Hg] Michael Dunaway Other [facility] Other 07-02-2022 13:00-0400 Body height 152.4 cm Michael Dunaway Other [facility] Other 07-02-2022 13:00-0400 Body mass index (BMI) [Ratio] 53.97 kg/m2 Michael Dunaway Other [facility] Other 07-02-2022 13:00-0400 Body weight 125.38 kg Michael Dunaway Other [facility] Other 07-02-2022 13:00-0400 Diastolic blood pressure 88 mm[Hg] Michael Dunaway Other [facility] Other 07-02-2022 13:00-0400 SaO2% (BldA) [Mass fraction] 97 % Michael Dunaway Other [facility] Other 07-02-2022 13:00-0400 Systolic blood pressure 142 mm[Hg] Michael Dunaway Other [facility] Other 06-23-2022 12:52-0400 Diastolic blood pressure 64 mm[Hg] DO Robert Ball Work Phone: [facility] 06-23-2022 12:52-0400 Heart rate 73 /min DO Robert Ball Work Phone: [facility] 06-23-2022 12:52-0400 Respiratory rate 20 /min DO Robert Ball Work Phone: [facility] 06-23-2022 12:52-0400 SaO2% (BldA) [Mass fraction] 97 % DO Robert Ball Work Phone: [facility] 06-23-2022 12:52-0400 Systolic blood pressure 132 mm[Hg] DO Robert Ball Work Phone: [facility] 06-23-2022 12:16-0400 Inhaled oxygen flow rate 3 L/min DO Robert Ball Work Phone: [facility] 06-23-2022 10:24-0400 Body height 152.4 cm DO Robert Ball Work Phone: [facility] 06-23-2022 10:24-0400 Body weight 123.37 kg DO Robert Ball Work Phone: [facility] 06-18-2022 12:15-0400 Body height 152.4 cm Michael Dunaway Other [facility] Other 06-18-2022 12:15-0400 Body mass index (BMI) [Ratio] 53.19 kg/m2 Michael Dunaway Other [facility] Other 06-18-2022 12:15-0400 Body weight 123.56 kg Michael Dunaway Other [facility] Other 06-18-2022 12:15-0400 Diastolic blood pressure 78 mm[Hg] Michael Dunaway Other [facility] Other 06-18-2022 12:15-0400 SaO2% (BldA) [Mass fraction] 96 % Michael Dunaway Other [facility] Other 06-18-2022 12:15-0400 Systolic blood pressure 146 mm[Hg] Michaelrancho Dunaway Other [facility] Other 05-05-2022 06:31-0400 Body height 152.4 cm DO Robert Ball Work Phone: [facility] 05-05-2022 06:31-0400 Body mass index (BMI) [Ratio] 51.7 kg/m2 DO Robert Ball Work Phone: [facility] 05-05-2022 06:31-0400 Body weight 120.2 kg DO Robert Ball Work Phone: [facility] 03-11-2022 17:15-0400 Body height 152.4 cm Michael Anthonyky Other [employer] [facility] [employer] Other 03-11-2022 17:15-0400 Diastolic blood pressure 70 mm[Hg] Michael Dunaway Other [facility] Other 03-11-2022 17:15-0400 SaO2% (BldA) [Mass fraction] 98 % Michaelrancho Dunaway Other [facility] Other 03-11-2022 17:15-0400 Systolic blood pressure 144 mm[Hg] Michael Dunaway Other [facility] [employer] Other 03-04-2022 09:59-0400 Blood Pressure Location Taye MUROL [facility] [place] 03-04-2022 09:59-0400 Diastolic blood pressure 82 mm[Hg] Taye NILL [facility] [place] 03-04-2022 09:59-0400 Heart rate 72 /min Taye MUROL [facility] [place] 03-04-2022 09:59-0400 Respiratory rate 20 /min Taye VAZQUEZ [facility] [place] 03-04-2022 09:59-0400 Systolic blood pressure 160 mm[Hg] Taye VAZQUEZ [facility] 02-18-2022 17:00-0400 Body height 152.4 cm Michael Dunaway Other [employer] [facility] [employer] Other 02-18-2022 17:00-0400 Body mass index (BMI) [Ratio] 53.51 kg/m2 Michael Dunaway Other [facility] Other 02-18-2022 17:00-0400 Body weight 124.29 kg Michael Dunaway Other [facility] Other 02-18-2022 17:00-0400 Diastolic blood pressure 70 mm[Hg] Michael Dunaway Other [facility] Other 02-18-2022 17:00-0400 SaO2% (BldA) [Mass fraction] 94 % Michael Dunaway Other [facility] Other 02-18-2022 17:00-0400 Systolic blood pressure 130 mm[Hg] Michael Dunaway Other [facility] Other 01-28-2022 17:00-0500 Body height 152.4 cm Usama Batista Other [facility] Other 03-03-2022 17:00-0500 Body mass index (BMI) [Ratio] 50.38 kg/m2 Usama Batista Other [facility] Other 01-28-2022 17:00-0500 Body weight 117.03 kg Usama Batista Other [facility] Other 11-07-2021 12:20-0500 Body height 152.4 cm Quita Maiermond Other [facility] Other 11-07-2021 12:20-0500 Body mass index (BMI) [Ratio] 50.38 kg/m2 Quita Iris Other [facility] Other 11-07-2021 12:20-0500 Body temperature 97.9 [degF] Quita Iris Other [facility] Other 11-07-2021 12:20-0500 Body weight 117.03 kg Quita Iris Other [facility] Other 11-07-2021 12:20-0500 Diastolic blood pressure 71 mm[Hg] Quita Iris Other [facility] Other 11-07-2021 12:20-0500 Respiratory rate 18 /min Quita Iris Other [facility] Other 11-07-2021 12:20-0500 SaO2% (BldA) [Mass fraction] 96 % Quita Iris Other [facility] Other 11-07-2021 12:20-0500 Systolic blood pressure 159 mm[Hg] Quita Iris Other [facility] Other Encounters Encounter Date Encounter Type Care Provider Facility Start: 04-30-2024 End: 04-30-2024 ambulatory [facility] Work Phone: Start: 04-30-2024 End: 04-30-2024 Patient encounter procedure Replaced By [facility] Work Phone: Start: 04-30-2024 Non-patient / Non-visit Replaced By [facility] Work Phone: Start: 04-09-2024 End: 04-10-2024 ambulatory FERNANDO VIVAR Not Available Start: 04-03-2024 End: 04-03-2024 ambulatory FÉLIX MUNROE Not Available Start: 03-29-2024 End: 03-29-2024 Patient encounter procedure Replaced By [facility] Work Phone: Start: 02-17-2024 Non-patient / Non-visit Replaced By [facility] Work Phone: Start: 02-15-2024 End: 02-15-2024 ambulatory DO Robert Ball Work Phone: [facility] Work Phone: Start: 02-15-2024 End: 02-15-2024 Patient encounter procedure DO Robert Ball Work Phone: Replaced By [facility] Work Phone: Start: 01-12-2024 End: 01-12-2024 ambulatory DO Robert Ball Work Phone: [facility] Work Phone: Start: 01-12-2024 End: 01-12-2024 Departed Referred DO Robert Ball Work Phone: [facility] Work Phone: Start: 12-29-2023 End: 12-29-2023 ambulatory Robert Ball Other [facility] [employer] Other Start: 12-29-2023 Telephone encounter Robert Ball FP [facility] Start: 12-22-2023 End: 12-22-2023 ambulatory Robert Genna Other [facility] Other Start: 12-22-2023 Office outpatient vi sit 25 minutes Robert Ball [facility] Start: 12-09-2023 End: 12-09-2023 ambulatory Robert Ball Other [facility] Other Start: 12-09-2023 Office outpatient vi sit 15 minutes Robert Ball [facility] Start: 12-09-2023 Patient encounter procedure DO Robert Vail Work Phone: Replaced By [facility]- Start: 11-11-2023 End: 11-11-2023 ambulatory Robert Ball Other [facility] Other Start: 11-11-2023 Telephone encounter Robert Vail [facility] Start: 11-10-2023 End: 11-10-2023 ambulatory Robert Genna Other [facility] Other Start: 11-10-2023 Telephone encounter Robert Vail [facility] Start: 11-04-2023 End: 11-04-2023 ambulatory Robert Vail Other [facility] Other Start: 11-04-2023 Telephone encounter Robert Ball FP [facility] Start: 10-31-2023 End: 11-01-2023 ambulatory MAYTE MARLOW Not Available Start: 10-19-2023 End: 10-19-2023 ambulatory Robert Ball Other [facility] Other Start: 10-19-2023 Telephone encounter Robert Ball FP [facility] Start: 09-21-2023 End: 09-21-2023 ambulatory Robert Ball Other [facility] Other Start: 09-21-2023 Office outpatient vi sit 25 minutes Robert Ball [facility] Start: 09-08-2023 End: 09-08-2023 ambulatory Robert Ball Other [facility] Other Start: 09-08-2023 Telephone encounter Robert Vail [facility] Start: 08-29-2023 End: 08-29-2023 ambulatory Robert Vail Other [facility] Other Start: 08-29-2023 Telephone encounter Robert Vail [facility] Start: 08-16-2023 End: 08-16-2023 ambulatory Robert Vail Other [facility] Other Start: 08-16-2023 Telephone encounter Robert Vail [facility] Start: 08-15-2023 End: 08-15-2023 ambulatory Robert Vail Other [facility] Other Start: 08-15-2023 Transitional care manage srvc 14 day discharge Robert Vail [facility] Start: 07-25-2023 End: 07-25-2023 ambulatory Robert Vail Other [facility] Other Start: 07-25-2023 Telephone encounter Robert Vail [facility] Start: 07-21-2023 End: 07-21-2023 ambulatory Robert Vail Other [facility] Other Start: 07-21-2023 Telephone encounter Robert Vail [facility] Start: 07-19-2023 End: 07-19-2023 ambulatory Robert Vail Other [facility] Other Start: 07-19-2023 Telephone encounter Robert Vail [facility] Start: 07-11-2023 End: 07-11-2023 ambulatory Robert Vail Other [facility] Other Start: 07-11-2023 Office outpatient vi sit 25 minutes Robert Vail [facility] Start: 05-25-2023 End: 05-25-2023 ambulatory Robert Genna Other [facility] Other Start: 05-25-2023 Office outpatient vi sit 15 minutes Robert Ball [facility] Start: 04-26-2023 End: 04-26-2023 ambulatory Robert Vail Other [facility] Other Start: 04-26-2023 Telephone encounter Robert Vail [facility] Start: 04-08-2023 End: 04-08-2023 ambulatory Robert Genna Other [facility] Other Start: 04-08-2023 Office outpatient vi sit 15 minutes Robert Ball [facility] Start: 04-07-2023 End: 04-08-[address] ROBERT VAIL Facility: Start: 03-23-2023 End: 03-23-2023 ambulatory Robert Genna Other [facility] Other Start: 03-23-2023 Office outpatient vi sit 15 minutes Robert Ball [facility] Start: 03-16-2023 End: 03-16-2023 ambulatory Robert Vail Other [facility] Other Start: 03-16-2023 Telephone encounter Robert Genna [facility] Start: 03-14-2023 End: 03-15-[address] ROBERT VAIL [facility] [employer] Other Start: 03-14-2023 Telephone encounter Robert Genna [facility] Start: 03-10-2023 End: 03-10-2023 ambulatory Robert Vail Other [facility] Other Start: 03-10-2023 Office outpatient vi sit 15 minutes Robert Ball [facility] Start: 03-10-2023 Telephone encounter Robert Vail [facility] Start: 03-02-2023 End: 03-02-2023 ambulatory Robert Vail Other [facility] Other Start: 03-02-2023 Patient encounter procedure Robert Vail [facility] Start: 02-14-2023 End: 02-14-2023 ambulatory Robert Vail Other [facility] Other Start: 02-14-2023 Office outpatient vi sit 25 minutes Michael Emelyn [facility] Start: 02-14-2023 Telephone encounter Robert ALVES [facility] Start: 02-03-2023 (PROC) PROCEDURE Michaelrancho Zimmerman [facility] Start: 02-03-2023 End: 02-03-2023 ambulatory Michaelrancho Dunaway Other [facility] Other Start: 01-27-2023 End: 01-27-2023 ambulatory Michaelrancho Dunaway Other [facility] Other Start: 01-27-2023 Follow-up encounter Michael Dunaway [facility] Start: 01-19-2023 End: 01-19-2023 ambulatory Robert Vial Other [facility] Other Start: 01-19-2023 Telephone encounter Robert ALVES [facility] Start: 01-04-2023 (PROC) PROCEDURE Michaelrancho Zimmerman [facility] Start: 01-04-2023 End: 01-04-2023 ambulatory Michaelrancho Dunaway Other [facility] Other Start: 12-31-2022 End: 12-31-2022 ambulatory Michaelrancho Dunaway Other [facility] Other Start: 12-31-2022 Office outpatient vi sit 25 minutes Michael Emelyn [facility] Start: 12-27-2022 End: 12-27-2022 ambulatory Ivon Batista Other [facility] Other Start: 12-27-2022 Office outpatient vi sit 15 minutes Ivon Batista [facility] Start: 12-02-2022 End: 12-02-2022 ambulatory Ursula Velarde Other [facility] Other Start: 12-02-2022 Office outpatient vi sit 15 minutes Ursula Velarde [facility] Start: 11-18-2022 (PROC) PROCEDURE Michael Zimmerman [facility] Start: 11-18-2022 End: 11-18-2022 ambulatory Michael Dunaway Other [facility] Other Start: 11-03-2022 Pre-procedure evaluation check Robert Vail Other [facility] Other Start: 11-02-2022 End: 11-02-2022 ambulatory Michael Dunaway Other [facility] Other Start: 11-02-2022 Office outpatient vi sit 25 minutes Michael Dunaway [facility] Start: 10-26-2022 (Procedure) Short Michael Dunaway [facility] Start: 10-26-2022 End: 10-26-2022 ambulatory Michael Dunaway Other [facility] Other Start: 09-11-2022 End: 09-11-2022 ambulatory Kaitlynn Foy Other [facility] Other Start: 09-11-2022 Office outpatient vi sit 25 minutes Kaitlynn Foy [facility] Start: 09-10-2022 End: 09-10-2022 ambulatory Michael Dunaway Other [facility] Other Start: 09-10-2022 Office outpatient vi sit 15 minutes Michael Dunaway [facility] Start: 08-24-2022 (Procedure) Short Michael Dunaway [facility] Start: 08-24-2022 End: 08-24-2022 ambulatory Michael Dunaway Other [facility] Other Start: 08-03-2022 (Procedure) Short Michael Dunaway [facility] Start: 08-03-2022 End: 08-03-2022 ambulatory Michael Dunaway Other [facility] Other Start: 07-29-2022 End: 07-29-2022 ambulatory Michael Emelyn Other [facility] Other Start: 07-29-2022 Office outpatient vi sit 15 minutes Michael Emelyn [facility] Start: 07-25-[address] ROBERT VAIL Facili ty:[facility] Start: 07-22-2022 (Procedure) Short Michael Dunaway [facility] Start: 07-22-2022 End: 07-22-2022 ambulatory Michael Dunaway Other [facility] Other Start: 07-06-2022 End: 07-07-[address] ROBERT VAIL Facility:[facility] Start: 07-02-2022 End: 07-02-2022 ambulatory Michael Dunaway Other [facility] Other Start: 07-02-2022 Office outpatient vi sit 25 minutes Michael Emelyn [facility] Start: 06-23-2022 (Procedure) Short Michael Dunaway [facility] Start: 06-23-2022 End: 06-23-2022 ambulatory Michael Emelyn Other [facility] Other Start: 06-23-2022 End: 06-23-2022 Admission to same day surgery center DO Robert Vail Work Phone: [facility] Start: 06-18-2022 End: 06-18-2022 ambulatory Michael Emelyn Other [facility] Other Start: 06-18-2022 Office outpatient vi sit 25 minutes Michael Emelyn [facility] Start: 05-05-2022 End: 05-05-2022 Patient encounter procedure DO [facility] Start: 04-30-2022 End: 05-01-[address] ROBERT VAIL Facility:[facility] Start: 04-13-2022 End: 04-14-[address] ROBERT VAIL Facility:[facility] Start: 04-01-2022 End: 04-01-2022 ambulatory Maioc Lloyd Other [facility] Other Start: 04-01-2022 Telephone encounter Maico Lloyd [facility] Start: 03-19-2022 End: 03-19-2022 ambulatory Michael Dunaway Other [facility] Other Start: 03-19-2022 Telephone encounter Michael Dunaway [facility] Start: 03-11-2022 End: 03-11-2022 ambulatory Michael Dunaway Other [facility] Other Start: 03-11-2022 Office outpatient vi sit 25 minutes Michael Emelyn [facility] Start: 03-04-2022 End: 03-04-2022 Patient encounter procedure Taye VAZQUEZ [facility] [place] Start: 02-25-2022 (Procedure) Short Michael Dunaway [facility] Start: 02-25-2022 End: 02-25-2022 ambulatory Michael Emelyn Other [facility] Other Start: 02-18-2022 End: 02-18-2022 ambulatory Michael Emelyn Other [facility] Other Start: 02-18-2022 Office outpatient ne w 45 minutes Michael Emelyn [facility] Start: 01-28-2022 End: 01-28-2022 ambulatory Usama Batista Other [facility] Other Start: 01-28-2022 Office outpatient ne w 45 minutes Usama Batista [facility] Start: 01-20-2022 Adult health examination Robert Vail Other [facility] [employer] Other Start: 11-07-2021 End: 11-07-2021 ambulatory Quita Simmons Other [facility] [employer] Other Start: 11-07-2021 Office outpatient ne w 20 minutes Quita Simmons [facility] Procedures Date Procedure Procedure Detail Performing Clinician Start: 01-12-2024 Aerobic microbial culture DO Robert henderson Work Phone: Start: 06-23-2022 Injection of local anesthetic into sacroiliac joint DO Robert Vail Work Phone: Start: 05-05-2022 Capsule endoscopy DO Robert Vail Work Phone: Start: 09-18-2018 Screening for osteoporosis Robert Vail Other Start: 09-13-2017 Cataract extraction and insertion of intraocular lens Taye MUROL Start: 08-16-2017 Cataract extraction and insertion of intraocular lens Taye BHASKARL Comment on above: right eye Start: 10-07-2015 Screening mammography Robert Vail Other Start: 04-07-2015 L4-L5 lumbar laminectomy, foraminotomy with facetectomy with decompression L5 nerve roots bilaterally 2 Taye BHASKARL Comment on above: see operative report for further details Start: 01-28-2015 Pre-surgery evaluation Robert Vail Other Start: 01-28-2015 Preoperative cardiovascular examination Robert Vail Other Start: 01-28-2015 Preoperative pulmonary examination Kyle Vail Other Start: 11-28-2009 Colonoscopy Taye NILL Start: 11-28-2004 Colonoscopy Taye MUROL Start: 11-28-1964 Craniotomy Taye MUROL Arthroplasty of knee Taye NILL Comment on above: left Arthroplasty of knee Taye NILL Comment on above: right Cholecystectomy Taye NILL Chondroplasty Taye NILL Cystoscopy Taye NILL Depression screening Benjami belia Vail Other Esophagogastroduodenoscopy M ichjacey NILL insertion of jaspreet filter Taye NILL Lap sigmoid resection Zina montano NILL orif right femur Taye NIL L Repair of musculoten dinous cuff of shoulder Taye NILL right knee arthroscopy Howard boston NILL Screening for malign ant neoplasm of breast Robert Vail Other Plan of Treatment Date Care Activity Detail Author Start: 01-12-2024 Superficial Wound Culture Superficial Wound Culture [facility] Start: 06-23-2022 [facility] Work Phone: Start: 05-05-2022 [facility] Work Phone: Comprehensive metabo lic 2000 panel - Serum or Plasma [facility] Patient Education Emelyn Non Diagn ostic Block [facility] Work Phone: Patient referral [facility] Work Phone: XR Lumbar spine 4 Views [facility] XR Pelvis 1 or 2 Views [facility] XR Sacrum and Coccyx GE 2 Views [facility] Immunizations Immunization Date Immunization Notes Care Provider Fa cility 08-15-2023 influenza, high dose seasonal, preservative-free Robert Vail Other [facility] [employer] Other 08-15-2023 influenza virus vaccine, unspecified formulation DO Robert Vail Work Phone: [facility] 10-13-2022 influenza virus vaccine, split virus (incl. purified surface antigen) Robert Vail Other [facility] [employer] Other 10-13-2022 influenza virus vaccine, unspecified formulation DO Robert Vail Work Phone: [facility] 10-08-2022 influenza virus vaccine, unspecified formulation DO Robert Vail Work Phone: [facility] 10-08-2022 influenza, high dose seasonal, preservative-free Robert Vail Other [facility] [employer] Other 10-05-2021 COVID-19 Vaccine Pfi zer - Documentation Purposes Only Robert Vail Other [facility] 09-02-2021 influenza virus vaccine, split virus (incl. purified surface antigen) Robert Vail Other [facility] [employer] Other 09-02-2021 influenza virus vaccine, unspecified formulation DO Robert Vail Work Phone: [facility] 02-11-2021 COVID-19 Vaccine Pfi zer - Documentation Purposes Only Robert Vail Other [facility] 01-21-2021 COVID-19 Vaccine Pfi zer - Documentation Purposes Only Robert Vail Other [facility] 08-25-2020 influenza virus vaccine, split virus (incl. purified surface antigen) Robert Vail Other [facility] [employer] Other 08-25-2020 influenza virus vaccine, unspecified formulation DO Robert Vail Work Phone: [facility] 08-30-2019 influenza virus vaccine, split virus (incl. purified surface antigen) Robert Vail Other [facility] [employer] Other 08-30-2019 influenza virus vaccine, unspecified formulation DO Robert Vail Work Phone: [facility] 09-18-2018 influenza virus vaccine, split virus (incl. purified surface antigen) Robert Vail Other [facility] [employer] Other 09-18-2018 influenza virus vaccine, unspecified formulation DO Robert Vail Work Phone: [facility] 08-17-2017 influenza virus vaccine, split virus (incl. purified surface antigen) Robert Vail Other [facility] [employer] Other 08-17-2017 influenza virus vaccine, unspecified formulation DO Robert Vail Work Phone: [facility] 07-29-2017 pneumococcal polysaccharide vaccine, 23 valent Robert Vail Other [facility] 02-14-2017 influenza virus vaccine, split virus (incl. purified surface antigen) Robert Vail Other [facility] [employer] Other 02-14-2017 influenza virus vaccine, unspecified formulation DO [employer] Work Phone: [facility] 10-07-2015 pneumococcal conjuga te vaccine, 13 valent Robert Vail Other [facility] 08-19-2015 influenza virus vaccine, split virus (incl. purified surface antigen) Robert Vail Other [facility] [employer] Other 08-19-2015 influenza virus vaccine, unspecified formulation DO Robert Vail Work Phone: [facility] 09-19-2014 tetanus and diphther ia toxoids, adsorbed, preservative free, for adult use (5 Lf of tetanus toxoid and 2 Lf of diphtheria toxoid) Robert Vail Other [facility] 08-17-2013 tetanus and diphther ia toxoids, adsorbed, preservative free, for adult use (5 Lf of tetanus toxoid and 2 Lf of diphtheria toxoid) Robert [employer] Other [facility] 08-02-2012 tetanus and diphther ia toxoids, adsorbed, preservative free, for adult use (5 Lf of tetanus toxoid and 2 Lf of diphtheria toxoid) Robert Vail Other [facility] 07-03-2009 pneumococcal polysaccharide vaccine, 23 valent Robert Vail Other [facility] Payers Date Payer Category Payer Self-pay [id number] 1958 Medicare [id number] 2.1 [id number] 1958 Self-pay [id number] 1958 Unknown [id number] 2.16.8 [id number] 1940 Unknown [id number] 2.16.84 0.1.574737.3.579.2.593 1940 Unknown [id number] 2.16.84 0.1.111445.3.579.2.593 1940 Unknown [id number] 2.16.84 0.1.407521.3.579.2.593 1941 Unknown [id number] 2.16.84 0.1.118624.3.579.2.593 1940 Unknown [id number] 2.16.84 0.1.384867.3.579.2.593 1940 Unknown [id number] 2.16.84 0.1.668858.3.579.2.593 1940 Unknown [id number] 2.16.84 0.1.324316.3.579.2.1259 1941 Unknown [id number] 2.16.84 0.1.257319.3.579.2.1259 1940 Unknown [id number] 2.16.84 0.1.025841.3.579.2.1259 1940 Unknown [id number] 2.16.84 0.1.799673.3.579.2.1259 1940 Unknown [id number] 2.16.840 .1.131155.3.579.2.1259 Unknown Alejandra [id number] Unknown [id number] 2.16.8 [id number] Social History Date Type Detail Facility Start: 03-04-2022 Tobacco smoking status Ex-smoker (fi nding) [facility] [employer] Other Tobacco smoking status Never [facility] [employer] Sex Assigned At Female [employer] Other Start: 03-24-2022 End: 12-26-2023 Tobacco smoking status NHIS Never smoked tobacco (finding) [facility] Start: 1940 Sex Assigned At Female [facility] Medical Equipment Procedure Code Equipment Code Equipment Origin al Text Equipment Identifier Dates Capsule endoscopy, for patency of lumen evaluation Video capsule endoscopy system [id number] [facility] Start: 05-05-2022 Goals Date Patient Goal Desired Activity /State Clinical Notes 11-07-2021 to 12-22-2023 Note Date & Type Note Facility 12-22-2023 Evaluation note Encounter Date Diagnosis Assessment Notes Nov, Primary hypertension (ICD-10 - I10) This patient is instructed to consume a healthy, low-fat, low-salt diet. They are also encouraged to continue exercise to achieve/maintain a normal BMI. Patient is instructed on home BP measurements: - rest for 5 minutes w/o talking.- positioned w/ feet on floor and arm supported.- average best 2/3 readings w/ goal < 135/85.- update office w/ home readings in 2 weeks. Nov, Type 2 diabetes mellitus with hyperglycemia, without [...] office visit. Continue regular routine monitoring of A1C, Microalbumin, Dilated eye exam and Foot exam Nov, Hypercoagulable state (ICD-10 - D68.59) No thrombotic or bleeding complications. Continue Warfarin w/ INR monitoring routinely INR goal 2-3 Nov, Lumbar spondylosis (ICD-10 - M47.816) The patient is instructed to avoid bending, twisting or lifting. They are to use intermittent heat and ice as needed. They may schedule a massage or gentle manipulation. They may safely use Tylenol as needed. Nov, Simple chronic bronchitis (ICD-10 - J41.0) Mucolytics as needed. No ER visits for AE Weight loss would improve respiratory status Nov, KERMIT (obstructive sleep apnea) (ICD-10 - G47.33) This patient is aware of the benefits associated with KERMIT: With continued use, the patient reduces the risk for [place], CVA, HTN, cardiac dysrhythmias and sudden cardiac deaths.The patient is also aware of the association between KERMIT and morning headaches, daytime somnolence, fatigue and obesity, which also has been improved with continued use.The patient is compliant with treatment, wearing the equipment every night for greater than 4 hours.The patient is instructed to continue use of the CPAP for KERMIT treatment. Nov, Gastroesophageal reflux disease with esophagitis without hemorrhage (ICD-10 - K21.00) Avoid lying flat after eating. Avoid eating 2 hours prior to bedtime. Smaller, frequent meals may be better tolerated.Weight loss if overweight.PPI with any heartburn.Monitor for dysphagia. Nov, Chronic venous insufficiency (ICD-10 - I87.2) Avoid salt and elevate lower extremities, support stockings, inspect legs and feet daily for blisters and ulcerations. Nov, Hypercholesteremia (ICD-10 - E78.00) Instructed on diet and exercise with continued statin therapy.Discussed the beneficial effects of lowering cholesterol in reducing the risk for cerebrovascular and cardiovascular disease. [employer] Other 01-12-2024 Evaluation note* Encounter Date Diagnosis Assessment Notes Treatment Notes Treatment Clinical Notes Nov, Rhinorrhea (ICD-10 - J34.89) Monitor for now. Recommend Saline/Flonase NS. Mucinex (mucolytic) Push fluids, rest. Notify office w/ purulent drainage or fever Nov, Primary hypertension (ICD-10 - I10) This patient is instructed to consume a healthy, low-fat, low-salt diet. They are also encouraged to continue exercise to achieve/maintain a normal BMI. Avoid use of NSAIDs and Decongestants as they would adversely elevate the BP Nov, Suspected COVID-19 virus infection (ICD-10 - Z20.822) Order sent to [facility], results negative for COVID infection. [employer] Other 12-14-2023 Evaluation note* Encounter Date Diagnosis Assessment Notes Treatment Notes Treatment Clinical Notes Oct, Acute cough (ICD-10 - R05.1) [employer] [facility] Other 10-25-2023 Evaluation note* Encounter Date Diagnosis [...] for additional treatment Discussed compression, pumps etc [employer] [facility] Other 10-12-2023 Evaluation note* Encounter Date Diagnosis Assessment Notes Treatment Notes Treatment Clinical Notes Aug, Lumbar spondylosis (ICD-10 - M47.816) [facility] Other 10-02-2023 Evaluation note* Encounter Date Diagnosis Assessment Notes Treatment Notes Treatment Clinical Notes Aug, Pain of right lower extremity (ICD-10 - M79.604) [facility] Other 09-18-2023 Evaluation note* Encounter Date Diagnosis [...] of right lower extremity (ICD-10 - M79.604) [facility] [facility] Other 08-22-2023 Evaluation note* Encounter Date Diagnosis Assessment Notes Treatment Notes Treatment Clinical Notes Jun, Dysuria (ICD-10 - R30.0) [facility] Other 08-14-2023 Evaluation note* Encounter Date Diagnosis [...] use, the patient reduces the risk for [place], CVA, HTN, cardiac dysrhythmias and sudden cardiac [...] or drinking prior to bedtime. Weight loss. [facility] [facility] Other 06-28-2023 Evaluation note* Encounter Date Diagnosis [...] supplied to the patient after her assessment [employer] [facility] Other 05-30-2023 Evaluation note* Encounter Date Diagnosis Assessment Notes Treatment Notes Treatment Clinical Notes March, Cellulitis of right lower extremity (ICD-10 - L03.115) [employer] [facility] Other 05-12-2023 Evaluation note* Encounter Date Diagnosis [...] - D68.59) Not able to use NSAIDs [facility] [employer] [facility] Other 04-26-2023 Evaluation note* Encounter Date Diagnosis [...] Hypercoagulable stat e (ICD-10 - D68.59) Finish Eliquis and refer to med management clinic in [place] [employer] [facility] Other 04-19-2023 Evaluation note* Encounter Date Diagnosis Assessment Notes Treatment Notes Treatment Clinical Notes Feb, Generalized seizure disorder (ICD-10 - G40.309) [employer] [facility] Other 04-17-2023 NotePROCEDURE: XR CHEST 2 V [...] Electronically authenticated by: CELINA JONES Date: 2023-03-14 15:11[facility]04-17-2023 Evaluation note* Encounter Date Diagnosis Assessment Notes Treatment Notes Treatment Clinical Notes Feb, Simple chronic bronchitis (ICD-10 - J41.0) [employer] [facility] Other 04-13-2023 Evaluation note* Encounter Date Diagnosis Assessment Notes Treatment Notes Treatment Clinical Notes Feb, Acute bronchitis due to other specified organisms (ICD-10 - J20.8) Instructed to use Robitussin or Mucinex for cough, saline or Flonase NS for congestion, Tylenol for pain and fever. Feb, Seasonal allergic rhinitis due to pollen (ICD-10 - J30.1) [employer] [facility] Other 04-05-2023 Evaluation note* Encounter Date Diagnosis [...] use, the patient reduces the risk for [place], CVA, HTN, cardiac dysrhythmias and sudden cardiac [...] mammogram for breast cancer (ICD-10 - Z12.31) [facility] Other 03-20-2023 Evaluation note* Encounter Date Diagnosis [...] offered to prescribe a low dose of [place], she states she does not want to be on opioid pain medications. She can follow up in 3 months or as needed. Jan, Chronic pain (ICD-10 - G89.29) Follow up as needed [facility] Other 03-02-2023 Evaluation note* Encounter Date Diagnosis [...] (ICD-10 - G89.29) Follow up after procedure. [facility] Other 02-03-2023 Evaluation note* Encounter Date Diagnosis [...] (ICD-10 - G89.29) Follow up after procedure. [facility] Other 01-30-2023 Evaluation note* Encounter Date Diagnosis Assessment Notes Treatment Notes Treatment Clinical Notes Nov, Erysipelas (ICD-10 - A46) Start w antibiotic, take entire course. Call if no improvement for other prescription or dermatology referral. Nov, Systemic viral illness (ICD-10 - B34.9) Chills and nausea has resolved Continue to monitor symptoms [employer] [facility] Other 01-05-2023 Evaluation note* Encounter Date Diagnosis [...] - G89.29) Follow up in 4 weeks. [facility] Other 12-06-2022 Evaluation note* Encounter Date Diagnosis [...] for three days prior to each procedure [facility] Other 10-15-2022 Evaluation note* Encounter Date Diagnosis [...] treatment plan. Patient left in stable condition [facility] Other 10-14-2022 Evaluation note* Encounter Date Diagnosis [...] - G89.29) Follow up in 4 weeks. [facility] Other 09-01-2022 Evaluation note* Encounter Date Diagnosis [...] Eliquis for 3 days prior to procedure [facility] Other 08-05-2022 Evaluation note* Encounter Date Diagnosis [...] Eliquis for 3 days prior to procedure [employer] [facility] Encounter Date Diagnosis Assessment [...] Eliquis for 3 days prior to procedure [facility] [facility] Other 04-14-2022 Evaluation note* Encounter Date Diagnosis [...] medial branch nerve blocks in the future. [facility] [facility] Other 04-07-2022 NoteChief Complaint consultation for iron [...] informed consent obtained. 2. Chronic anticoagulation (Z79.01: [facility] (current) use of anticoagulants) will hold Coumadin starting today and continue Lovenox bid, patient to hold Lovenox morning of procedure; my office will notify the [facility] Coumadin clinic of these changes. 3. BMI [...] roots bilaterally (04/07/2015), C (more content not included)...[facility]Comment [facility]:Result Comment: Electronically Signed By: GEORGE JENNINGS, Taye Ellington\Date and Time Signed: 03/04/22 12:52 [id number] Evaluation note * Encounter Date Diagnosis Assessment [...] reports prior surgery with Dr. Rivers at [facility] 8 years ago. She also reports prior [...] negative findings were considered in medical decision-making. [employer] [facility] Other 03-03-2022 Evaluation note* Encounter Date Diagnosis [...] Asymptomatic age-related postmenopausal state (ICD-10 - Z78.0) [employer] [facility] Other 2021 Evaluation note* Encounter Date Diagnosis [...] no improvement in 2 to 3 days [employer] [facility] Other Evaluation + Plan note No data available for this section [facility] [place] Evaluation noteNo InformationNort [employer] Other Evaluation noteNo assessment information available [facility] Work Phone: Evaluation note* Diagnosis Onset Date Resolution Status Chronic venous insufficiency acute Hypertension acute Lumbar spondylosis acute Thrombophilia acute [facility] Work Phone: Evaluation note* Diagnosis Onset Date Resolution Status Chronic venous insufficiency acute Thrombophilia acute Nonhealing surgical wound no neactive Generalized seizure disorder acute Hypercholesteremia acute Hypertension acute Lumbar spondylosis acute KERMIT (obstructive sleep apnea) acute Thrombophilia acute Type 2 diabetes mellitus with hyperglycemia acute Medicare annual wellness visit, subsequent noneactive Anticoagulant long-term use acute Arthritis of sacroiliac joint acute Chronic pain acute Ischial bursitis acute Lumbosacral spondylosis acut e [facility] Work Phone: History general Narrative - Reported* Type Description Date Medical History astma Medical History Osteoporosis Medical History HTN (hypertension) Medical History Hypercholesteremia Surgical History BL/CTR Surgical History craniotomy Surgical History rotator cup repair Surgical History rt knee arthosopy,chondroplasty Surgical History colonoscopy Surgical History EGD-2004 Surgical History RT TKA Surgical History Cystoscopy Surgical History nadine sigmoid resection Surgical History cholecystectomy Surgical History IVC filter Surgical History knee replacement left Surgical History fracture repair right femur Hospitalization History see above [employer] [facility] Other Hisfezb general Narrative - Reported* Type Description Date Medical History astma Medical History Osteoporosis Medical History HTN (hypertension) Medical History Hypercholesteremia Surgical History BL/CTR Surgical History craniotomy Surgical History rotator cup repair Surgical History rt knee arthosopy,chondroplasty Surgical History Colonoscopy 02/2022 Surgical History EGD-2004 Surgical History RT TKA Surgical History Cystoscopy Surgical History nadine sigmoid resection Surgical History cholecystectomy Surgical History IVC filter Surgical History knee replacement left Surgical History fracture repair right femur Hospitalization History see above [employer] [facility] Other Hospital Discharge instructions No data available for this section [facility] [place] Reason for referral (narrative)* Reason Referral for lower e xtremity ulceration Diagnosis 1 Ulcer associated wit h varicose vein, with infection (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 Tavarez has chroni c venous insufficiency and suffered a contusion injury to her RLE, which resulted in a nonhealing ulceration. It was sutured by the ER but didn't result in wound closure. She is being referred for debridement and bandaging. She was empirically placed on Mupirocin and Cephalexin. [employer] Other Reason for visit NarrativeReferral Dr. Conley [facility] [employer] Other Summary Purpose Family History Relationship Condition Age at Onset Recorded Date/T mg Not Specified Cerebrovascular accident (CVA) Unknown Heart disease Unknown Relationship Condition Age at Onset Recorded Date/T mg Not Specified Cerebrovascular accident (CVA) Unknown Heart disease Unknown father Unknown Not Specified Unknown History of stroke Unknown Advance Directives Advance Directive Response Recorded Date/ Time Advance Directives No October 9:37am Advance Directive Response Recorded Date/ Time Advance Directives No October 8:37am Hospital Course Note [facility] Discharge Summary PERSON INFORMATION Name SANDRA TAVAREZ Age 79 Years 1940 Sex FEMALE Language Belgian PCP Robert Vail Marital Status Med Service Med/Surg Acct# Arrival 05/23/2020 09:44:18 Visit Reason SURGERY - LEFT TOTAL KNEE Acuity LOS Address: [address] [facility] [address] Comment: PROVIDER INFORMATION VITALS INFORMATION Vital Sign [...] whether neurogenic claudication present (M48.061) Referral Organization [facility] Referring Provider First Name Usama Referring Provider Last Name Eusebio Referring Provider Specialty Neurologica l Surgery Referred Organization [facility] Pain Managemen t Referred Provider Michael Dunaway Referred Address [address] [address] ,[place], [place],[address] Referred Provider Specialty Pain Medicin e Referral Priority Routine General Notes Pamela Lopez 022 10:55:11 AM >Received today and sent P2P Chief Complaint and Reason for Visit Chief Complaint Iron Deficiency Anem ia Back Pain Chief Complaint t81.40xa left leg wound Reason for Visit Chronic venous insuf ficiency Hypertension Lumbar spondylosis Thrombophilia Chief Complaint left leg wound Amb Documentation [facility] Wellness INCREASED BUTTOCK PAIN Reason for Visit Chronic venous insuf ficiency Thrombophilia Nonhealing surgical wound Generalized seizure disorder Hypercholesteremia Hypertension Lumbar spondylosis KERMIT (obstructive sleep apnea) Thrombophilia Type 2 diabetes mellitus with hyperglycemia Medicare annual wellness visit, subsequent Anticoagulant long-term use Arthritis of sacroiliac joint Chronic pain Ischial bursitis Lumbosacral spondylosis Additional Source Comments INFORMATION SOURCE (unrecogn ized section and content) DATE CREATED AUTHOR 08/15/2020 [facility] DATE CREATED AUTHOR AUTHOR'S ORGANIZ ATION 03/28/2022 [facility] DATE CREATED AUTHOR AUTHOR'S ORGANIZ ATION 04/11/2023 [facility] DATE CREATED AUTHOR AUTHOR'S ORGANIZ ATION 01/27/2024 [facility] DATE CREATED AUTHOR AUTHOR'S ORGANIZ ATION 04/15/2024 [facility] EPIC REASON FOR VISIT (unrecogniz ed section and content) 3 month Follow upHEAD COLD, TIREDLab resultstemp [id number] results1 month Follow upTBHMedication Questionmessage4 month/suture removaldiscuss wheelchairATBred [...] (unrecognized sec tion and content) Team Status: Active Member Role Status Dates Robert Vail DO Primary Care Provider Active Team Status: Inactive Member Role Status Shannon Vail DO Primary Care Provide r, Attending Provider Active Start: February 15, 2024 End: February 15, 2024 Team Status: Active Member Role Status Shannon Vail DO Primary Care Provider Active Start: February 17, 2024 MAREN Beatty Attending Provider Active St art: February 17, 2024 Team Status: Inactive Member Role Status Shannon Vail DO Primary Care Provide r, Attending Provider Active Start: March 29, 2024 End: March 29, 2024 Team Status: Active Member Role Status Shannon Vail DO Primary Care Provide r, Attending Provider Active Start: April 30, 2024 Team Status: Inactive Member Role Status Shannon Vail DO Primary Care Provider Active Start: April 30, 2024 End: April 30, 2024 Michael Dunaway MD Attending Provider Active Sta rt: April 30, 2024 End: April 30, 2024 Team Status: Inactive Member Role Status Shannon Vail DO Primary Care Provider Active Michael Dunaway MD Attending Provider Active Team Status: Inactive Member Role Status Shannon Vail DO Primary Care Provider Active Maico Lloyd DO Attending Provider Active Team Status: Active Member Role Status Shannon Vail DO Primary Care Provider Active Team Status: Active Member Role Status Dates Provider Conversion Attending Provider Active St art: December 09, 2023 Team Status: Inactive Member Role Status Dates Robert Genna , DO Primary Care Provider Active Start: January 12, 2024 End: January 12, 2024 Juancarlos Campbell MD Attending Provider Active Start: January 12, 2024 End: January 12, 2024 Team Status: Inactive Member Role Status Dates Robert Genna , DO Primary Care Provide r, Attending Provider Active Start: February 15, 2024 End: February 15, 2024 Team Status: Active Member Role Status Dates Robert Vail , DO Primary Care Provider Active Start: February 17, 2024 MAREN Beatty Attending Provider Active St art: February 17, 2024 Team Status: Inactive Member Role Status Dates Robert Vail , DO Primary Care Provide r, Attending Provider Active Start: March 29, 2024 End: March 29, 2024 Team Status: Active Member Role Status Dates Robert Vail , DO Primary Care Provide r, Attending Provider Active Start: April 30, 2024 Team Status: Inactive Member Role Status Dates Robert Vail , DO Primary Care Provider Active Start: April 30, 2024 End: April 30, 2024 Michael Dunaway MD Attending Provider Active Sta rt: April 30, 2024 End: April 30, 2024 Goals (unrecognized section and content) Goals may be documented in a n alternate section FOR RECORDS PERTAINING TO PATIENTS WHO ARE [...] BE BASED ON THE PRIMARY CLINICAL RECORDS. [facility] [place] [employer] [facility]. provides no warranty or guarantee of the accuracy or completeness of information in this document.
== END 2024-05-07 16:39 | disposition home or self-care (01) ==
LOC: WC 16:38
PROVIDERS: PCP Internal Medicine; Visit Provider Physician Assistant
DX: L97.922 Non-pressure chronic ulcer of unspecified part of left lower leg with fat layer exposed (principal)
CPT/HCPCS: G0463

== ENCOUNTER 2024-05-21 10:30 | Outpatient (OUT) | payer MEDICARE, OTHER, SELFPAY | END 2024-05-21 10:31 | disposition home or self-care (01) | LOC: WC 15:34 | PROVIDERS: PCP Internal Medicine; Visit Provider Physician Assistant | DX: L97.922 Non-pressure chronic ulcer of unspecified part of left lower leg with fat layer exposed (principal) | CPT/HCPCS: G0463 ==

== ENCOUNTER 2024-05-28 00:43 | Outpatient (RCR) | payer MEDICARE, OTHER, SELFPAY | END 2024-06-27 09:41 | disposition home or self-care (01) | LOC: MM 00:43 | PROVIDERS: PCP Internal Medicine; Visit Provider Internal Medicine | DX: I83.813 Varicose veins of bilateral lower extremities with pain (principal); Z51.81 Encounter for therapeutic drug level monitoring; Z79.01 Long term (current) use of anticoagulants; I82.409 Acute embolism and thrombosis of unspecified deep veins of unspecified lower extremity | CPT/HCPCS: 85610; G0463 ==

== ENCOUNTER 2024-06-11 15:21 | Outpatient (OUT) | payer MEDICARE, OTHER, SELFPAY | END 2024-06-11 15:22 | disposition home or self-care (01) | LOC: WC 15:21 | PROVIDERS: PCP Internal Medicine; Visit Provider Physician Assistant | DX: L97.922 Non-pressure chronic ulcer of unspecified part of left lower leg with fat layer exposed (principal) | CPT/HCPCS: G0463 ==

== ENCOUNTER 2024-06-28 00:31 | Outpatient (RCR) | payer MEDICARE, OTHER, SELFPAY | END 2024-07-27 09:32 | disposition home or self-care (01) | LOC: MM 00:31 | PROVIDERS: PCP Internal Medicine; Visit Provider Internal Medicine | DX: I83.813 Varicose veins of bilateral lower extremities with pain (principal); Z51.81 Encounter for therapeutic drug level monitoring; Z79.01 Long term (current) use of anticoagulants; I82.409 Acute embolism and thrombosis of unspecified deep veins of unspecified lower extremity | CPT/HCPCS: 85610; G0463 ==

== ENCOUNTER 2024-07-30 00:56 | Outpatient (RCR) | payer MEDICARE, OTHER, SELFPAY | END 2024-08-27 23:36 | disposition home or self-care (01) | LOC: MM 00:56 | PROVIDERS: PCP Internal Medicine; Visit Provider Internal Medicine | DX: I83.813 Varicose veins of bilateral lower extremities with pain (principal); Z51.81 Encounter for therapeutic drug level monitoring; Z79.01 Long term (current) use of anticoagulants; I82.409 Acute embolism and thrombosis of unspecified deep veins of unspecified lower extremity | CPT/HCPCS: 85610; G0463 ==

== ENCOUNTER 2024-08-28 01:29 | Outpatient (RCR) | payer MEDICARE, OTHER, SELFPAY | END 2024-09-27 23:10 | disposition home or self-care (01) | LOC: MM 01:29 | PROVIDERS: PCP Internal Medicine; Visit Provider Internal Medicine | DX: I83.813 Varicose veins of bilateral lower extremities with pain (principal); Z51.81 Encounter for therapeutic drug level monitoring; Z79.01 Long term (current) use of anticoagulants; I82.409 Acute embolism and thrombosis of unspecified deep veins of unspecified lower extremity | CPT/HCPCS: 85610; G0463 ==

== ENCOUNTER 2024-09-28 11:14 | Outpatient (RCR) | payer MEDICARE, OTHER, SELFPAY | END 2024-10-27 23:59 | disposition home or self-care (01) | LOC: MM 11:14 | PROVIDERS: PCP Internal Medicine; Visit Provider Internal Medicine | DX: Z51.81 Encounter for therapeutic drug level monitoring (principal); I83.813 Varicose veins of bilateral lower extremities with pain; Z79.01 Long term (current) use of anticoagulants; I82.409 Acute embolism and thrombosis of unspecified deep veins of unspecified lower extremity ==

== ENCOUNTER 2024-10-29 03:27 | Outpatient (RCR) | payer MEDICARE, OTHER, SELFPAY | END 2024-11-27 09:38 | disposition home or self-care (01) | LOC: MM 03:27 | PROVIDERS: PCP Internal Medicine; Visit Provider Internal Medicine | DX: Z51.81 Encounter for therapeutic drug level monitoring (principal); Z79.01 Long term (current) use of anticoagulants; I82.409 Acute embolism and thrombosis of unspecified deep veins of unspecified lower extremity ==

== ENCOUNTER 2024-11-29 00:30 | Outpatient (RCR) | payer MEDICARE, OTHER, SELFPAY | END 2024-12-28 14:58 | disposition home or self-care (01) | LOC: MM 00:30 | PROVIDERS: PCP Internal Medicine; Visit Provider Internal Medicine | DX: Z51.81 Encounter for therapeutic drug level monitoring (principal); Z79.01 Long term (current) use of anticoagulants; I82.409 Acute embolism and thrombosis of unspecified deep veins of unspecified lower extremity | CPT/HCPCS: 85610; G0463 ==

== ENCOUNTER 2024-12-12 11:18 | Outpatient (OUT) | payer MEDICARE, OTHER, SELFPAY ==
[2024-12-12 11:31] LABS: Basophils Percent Auto 0.5 % (0.2-2.0); Eosinophils Absolute Auto 0.1 10^3/uL (0.0-0.7); Hematocrit 41.4 % (36.0-48.0); Hemoglobin 13.4 g/dL (12.0-16.0); Immature Granulocytes Abs Auto 0.02 10^3/uL (0.00-0.03); Immature Granulocytes Pct Auto 0.4 % (0.0-0.5); Lymphocytes Absolute Auto 0.7 10^3/uL (1.2-3.8); Mean Corpuscular HGB Conc 32.4 g/dL (29.9-35.2); Mean Corpuscular Hemoglobin 29.1 pg (26.7-34.0); Mean Corpuscular Volume 89.8 fL (81.0-99.0); Mean Platelet Volume 10.1 fL (9.5-13.5); Monocytes Absolute Auto 0.6 10^3/uL (0.3-0.8); Neutrophils Absolute Auto 4.1 10^3/uL (1.4-6.5); Neutrophils Percent Auto 75.1 % (43.0-75.0); Platelet Count 202 10^3/uL (150-450); Red Blood Count 4.61 10^6/uL (4.20-5.40); White Blood Count 5.5 10^3/uL (4.0-11.0)
[2024-12-12 11:57] LABS: Estimated Average Glucose 140 mg/dL; Glycohemoglobin A1C 6.5 % (4.5-6.2)
== END 2024-12-12 11:19 | disposition home or self-care (01) ==
LOC: LAB 11:18
PROVIDERS: PCP Internal Medicine; Visit Provider Internal Medicine
DX: E11.65 Type 2 diabetes mellitus with hyperglycemia (principal); D50.9 Iron deficiency anemia, unspecified
CPT/HCPCS: 36415; 82728; 83036; 85025; 85610; G0463

== ENCOUNTER 2024-12-31 02:28 | Outpatient (RCR) | payer MEDICARE, OTHER, SELFPAY | END 2025-01-25 12:41 | disposition home or self-care (01) | LOC: MM 02:28 | PROVIDERS: PCP Internal Medicine; Visit Provider Internal Medicine | DX: Z51.81 Encounter for therapeutic drug level monitoring (principal); Z79.01 Long term (current) use of anticoagulants; I82.409 Acute embolism and thrombosis of unspecified deep veins of unspecified lower extremity | CPT/HCPCS: 85610; G0463 ==

== ENCOUNTER 2025-01-26 11:57 | Outpatient (RCR) | payer MEDICARE, OTHER, SELFPAY | END 2025-02-22 12:23 | disposition home or self-care (01) | LOC: MM 11:57 | PROVIDERS: PCP Internal Medicine; Visit Provider Internal Medicine | DX: Z51.81 Encounter for therapeutic drug level monitoring (principal); Z79.01 Long term (current) use of anticoagulants; I82.409 Acute embolism and thrombosis of unspecified deep veins of unspecified lower extremity ==

== ENCOUNTER 2025-02-26 05:32 | Outpatient (RCR) | payer MEDICARE, OTHER, SELFPAY | END 2025-03-27 15:56 | disposition home or self-care (01) | LOC: MM 05:32 | PROVIDERS: PCP Internal Medicine; Visit Provider Internal Medicine | DX: Z51.81 Encounter for therapeutic drug level monitoring (principal); Z79.01 Long term (current) use of anticoagulants | CPT/HCPCS: 85610; G0463 ==

== ENCOUNTER 2025-03-28 04:46 | Outpatient (RCR) | payer MEDICARE, OTHER, SELFPAY | END 2025-04-26 15:44 | disposition home or self-care (01) | LOC: MM 04:46 | PROVIDERS: PCP Internal Medicine; Visit Provider Internal Medicine | DX: Z51.81 Encounter for therapeutic drug level monitoring (principal); Z79.01 Long term (current) use of anticoagulants | CPT/HCPCS: 85610; G0463 ==

== ENCOUNTER 2025-04-18 10:08 | Outpatient (OUT) | payer MEDICARE, OTHER, SELFPAY ==
--- OUTSIDE RECORDS SUMMARY | 2025-04-04 14:30 | XMS_ITS | Encounter Summary ---
Author Organization [facility] Address [address] [facility] [place] [address] Care Team Providers Care Agency Recruiter Name Role Phone Robert Lopez DO Primary Care Provider [phone] Reason for Visit * Rehabilitation - Outpatient (Routine) - Authorized Specialty Diagnoses / Procedures Referred By Rachel espinoza Referred To Contact Physical Therapy Diagnoses Low back pain, unspecified Proximal Leg Pain Procedures NM PHYSICAL THERAPY EVALUATION LOW COMPLEX 20 MINS NM OFFICE/OUTPATIENT NEW HIGH MDM 60 MINUTES Robert Lopez DO Phone: tel: fax: [facility] [address] [facility] [address] [place] [address] Phone: tel: fax: Referral ID Status Reason Start Date Expiration Date V isits Requested Visits Authorized [id number] Authorized 01/11/2025 11/27/2025 20 30 Encounter Details Date Type Department Care Team (Late st Contact Info) Description 04/04/2025 2:30 PM EDT Treatment [facility] [address] [facility] [address] [place] [id number] Gabriel Loco, SLIVER MACHINE OPERATOR Low back pain, unspecified back pain laterality, unspecified chronicity, unspecified whether sciatica present (Primary Dx) Social History Tobacco Use Types Packs/Day Years Used Date Smoking Tobacco: Former Cigarettes Smokeless Tobacco: Never Alcohol Use Standard Drinks/Week Comments Not Currently 0 (1 standard drink = 0.6 oz pur e alcohol) Comments No Sex and Gender Information Value Date Recorded Sex Assigned at Not on file Legal Sex Female 6:56 PM EDT Gender Identity Not on file Sexual Orientation Not on file documented as of this encounter Progress Notes * Gabriel Loco, SLIVER MACHINE OPERATOR - 04/04/2025 2:30 PM EDT Images from the original note were not included. Physical Therapy Treatment Visit Patient Name: Sandra Tavarez Today's Date: 04/04/2025 Encounter Diagnoses Name Primary? Low back pain, unspecified back pain laterality, unspecified chronicity, unspecified whether sciatica present Yes Visit number: 14 Timed Code Treatment: 45 minutes Total Treatment Time: 62 minutes Time In: 2:32 PM Time Out: 3:34 PM History: Pt presents with history of low back pain. Has been seeing pain management and has received injections and RFA's. States she only gets a little bit of relief from pain management. Can only stand for short periods of time due to increase low back pain. Has been using RW for pain since last spring or summer. Has tried cane but does not feel as secure. Pt states this past Tuesday, she bent forward to grab something and felt a pop in her low back. Since then, pain has been worse in low backand bilateral buttock. Pain is slightly worse on left vs right. Precautions: Falls, universal Subjective: States she does continue with pain in bilateral buttock and back of both legs. Pt has not heard from Pain Management yet. Pain: 6/10 Objective: PT Evaluation (01/14/2025) LUMBAR SPINE AROM: no end range pain with flexion, increase bilateral buttock pain at end range extension (limited to neutral), increase pain ipsilateral buttock at end range SB. Strength: left hip 3+ to 4-/5, right hip 4- to 4/5; core fair/poor Palpation: moderate to severe tenderness bilateral lower lumbar region; moderate to severe tenderness bilateral buttock. Special Test: negative slump and SLR Neurological: Reflexes: 1 bilateral patellar Myotomes: negative bilateral Dermatomes: negative bilateral Special Test: negative clonus Treatment: Manual Therapy: () STM with massage ball in prone to left low back and buttock bilateral lumbar regions. Therapeutic Exercise: (45 minutes supervised ) Exercises and home program reviewed with good pt understanding. Goals re-assessed for UPOC. Pt continues to require sitting rest breaks due to LE pain with prolong standing. Therapeutic Activity: Exercises to improve dynamic activities, functional tasks, functional mobility to return to prior activity level as needed. Neuromuscular re-education: Balance Training, Muscle Facilitation, Dynamic Stability, Core Stabilization, and Blood Flow Restriction Training (BFRT) as needed. Modalities: (10 minutes) HP to low back and buttock in sitting following treatment Assessment: Pt has completed 14 PT sessions for low back pain. Pt unable to obtain neutral trunk ROM due to increase bilateral LE pain near trunk extension. Pt with limited standing tolerance due to increasing bilateral buttock and LE pain, prefers forward trunk in standing. Introduced resistance to standing strengthening, pt had no increased pain but noted fatigue and required rest breaks. Will continue PT in order to progress LE and core strength. Outcome Measure: Lower Extremity Functional Scale (LEFS): 24/80 Rehab Diagnosis: low back pain, bilateral LE pain and weakness, difficulty walking Short Term Goal: To be met in 2 weeks Goal 1: Pt to be instructed in home exercise program. - met Half-Way Goals: To be met in 10 weeks Goal 1: Pt to report independence and compliance with home program. - progressing Goal 2: Pt to have full trunk ROM without complaints of increase pain at end ranges to assist with functional tasks. - progressing Goal 3: Pt to report pain no greater than 4/10 with function tasks, ADL's, and work related activities. - not met Goal 4: Pt to score no less than 40/80 on LEFS indicating improved QOL. - not met Goal 5: Pt to achieve 4- to 4/5 strength left hip to assist with functional mobility and ADL's. - progressing Pt will benefit from skilled PT for 2x/week from 04/01/2025 to 06/10/2025 to address the above impairments. I hereby deem this POC medically necessary. Please sign below. Date: Cosigned by Jacqui Harper PT at 04/11/2025 12:05 PM EDT documented in this encounter Plan of Treatment Upcoming Encounters Date Type Department Care Team (Late st Contact Info) Description 04/19/2025 10:30 AM EDT Treatment [facility] [address] [facility] [address] [place] [address] Jacqui Harper, PT 04/07/2026 11:15 AM EDT Office Visit [facility] [address] [place] [id number] Jr. Jovi Silva, [address] [facility] [address] [place] [address] documented as of this encounter Visit Diagnoses Diagnosis Low back pain, unspecified back pain laterality, unspecified chronicity, unspecified whether sciatica present- Primary documented in this encounter Care Teams Agency Recruiter Relationship Specialty Start Date End Date Robert Lopez DO PCP - General Internal Medicine 04/03/24 documented as of this encounter
--- OUTSIDE RECORDS SUMMARY | 2025-04-11 09:00 | XMS_ITS | Encounter Summary ---
Author Organization [facility] Address [address] [facility] [place] [address] Care Team Providers Care Peanut Farmer Name Role Phone Robert Lopez DO Primary Care Provider [phone] Reason for Visit * Rehabilitation - Outpatient (Routine) - Authorized Specialty Diagnoses / Procedures Referred By Rachel espinoza Referred To Contact Physical Therapy Diagnoses Low back pain, unspecified Proximal Leg Pain Procedures NE PHYSICAL THERAPY EVALUATION LOW COMPLEX 20 MINS NE OFFICE/OUTPATIENT NEW HIGH MDM 60 MINUTES Robert Lopez DO Phone: tel: fax: [facility] [address] [facility] [address] [place] [address] Phone: tel: fax: Referral ID Status Reason Start Date Expiration Date V isits Requested Visits Authorized [id number] Authorized 01/11/2025 11/27/2025 20 30 Encounter Details Date Type Department Care Team (Late st Contact Info) Description 04/11/2025 9:00 AM EDT Treatment [facility] [address] [facility] [address] [place] [phone] Jacqui Harper, PT Low back pain, unspecified back pain laterality, [...] as of this encounter Progress Notes * Jacqui Harper, PT - 04/11/2025 9:00 AM EDT Images from the original note were not included. Physical Therapy Treatment Visit Patient Name: Sandra Tavarez Today's Date: 04/11/2025 Encounter Diagnoses Name Primary? Low back pain, unspecified back pain laterality, unspecified chronicity, unspecified whether sciatica present Yes Visit number: 15 Timed Code Treatment: 55 minutes Total Treatment Time: 65 minutes Time In: 9:00 AM Time Out: 10:10 AM History: Pt presents with history of low [...] vs right. Precautions: Falls, universal Subjective: States night she was having horrible pain down left LE and mainly in her calf. States she will see Pain Management again on Tuesday. Pain: 05/07 Objective: PT Evaluation (01/14/2025) LUMBAR SPINE AROM: [...] and buttock bilateral lumbar regions. Therapeutic Exercise: (42 minutes supervised ) Exercises and home program reviewed with good pt understanding. Goals re-assessed for UPOC. Pt continues to require sitting rest breaks due to LE pain with prolong standing. Therapeutic Activity: (13 minutes) Exercises to improve dynamic activities, functional tasks, functional mobility to return to prior activity level as needed. Neuromuscular re-education: Balance Training, Muscle Facilitation, Dynamic Stability, Core Stabilization, and Blood Flow Restriction Training (BFRT) as needed. Modalities: (10 minutes) HP to low back and buttock in sitting following treatment Assessment: Pt has completed 15 PT sessions for low back pain. Progressed standing exercises this date to include step ups in order to increase functional strength of bilateral LE's. Added sitting calf stretch to address complaints of cramping at night. Will continue to progress as pt tolerates. Outcome Measure: Lower Extremity Functional Scale (LEFS): 24 Rehab Diagnosis: low back pain, bilateral LE pain and weakness, difficulty walking Short Term Goal: To be met in 2 weeks Goal 1: Pt to be instructed in home exercise program. - met Molding Technician Goals: To be met in 10 weeks [...] POC medically necessary. Please sign below. Date: documented in this encounter Plan of Treatment Upcoming Encounters Date Type Department Care Team (Late st Contact Info) Description 04/19/2025 10:30 AM EDT Treatment [facility] [address] [facility] [address] [place] [address] Jacqui Harper, PT 04/07/2026 11:15 AM EDT Office Visit [facility] [address] [place] [phone] Jr. Jovi Silva DO [address] [address] documented as of this encounter Visit Diagnoses Diagnosis Low back pain, unspecified back pain laterality, unspecified chronicity, unspecified whether sciatica present- Primary documented in this encounter Care Teams Peanut Farmer Relationship Specialty Start Date End Date Robert Lopez DO PCP - General Internal Medicine 04/03/24 documented as of this encounter
--- OUTSIDE RECORDS SUMMARY | 2025-04-15 09:30 | XMS_ITS | Encounter Summary ---
Author Organization [facility] Address [address] [facility] [place] [address] Care Team Providers Care Thread Grinder Tool Name Role Phone Robert Lopez DO Primary Care Provider [phone] Reason for Visit * Rehabilitation - Outpatient (Routine) - Authorized Specialty Diagnoses / Procedures Referred By Rachel espinoza Referred To Contact Physical Therapy Diagnoses Low back pain, unspecified Proximal Leg Pain Procedures PA PHYSICAL THERAPY EVALUATION LOW COMPLEX 20 MINS PA OFFICE/OUTPATIENT NEW HIGH MDM 60 MINUTES Robert Lopez DO Phone: tel: fax: [facility] [address] [facility] [address] [place] [address] Phone: tel: fax: Referral ID Status Reason Start Date Expiration Date V isits Requested Visits Authorized [id number] Authorized 01/11/2025 11/27/2025 20 30 Encounter Details Date Type Department Care Team (Late st Contact Info) Description 04/15/2025 9:30 AM EDT Treatment [facility] [address] [facility] [address] [place] [phone] Jacqui Harper, PT Low back pain, unspecified [...] Progress Notes * Jacqui Harper, PT - 04/15/2025 9:30 AM EDT Images from the original note were not included. Physical Therapy Treatment Visit Patient Name: Sandra Tavarez Today's Date: 04/15/2025 Encounter Diagnoses Name Primary? Low back pain, unspecified back pain laterality, unspecified chronicity, unspecified whether sciatica present Yes Visit number: 16 Timed Code Treatment: 42 minutes Total Treatment Time: 60 minutes Time In: 9:36 AM Time Out: 10:39 AM History: Pt presents with history of [...] right. Precautions: Falls, universal Subjective: States she did OK following last session, pain was no worse. Will see again this afternoon. Pain: 610 Objective: PT Evaluation (01/14/2025) LUMBAR SPINE AROM: [...] Therapeutic Exercise: (42 minutes supervised ) Exercises per grid with sitting rest breaks as needed. Scifit x 8 mins unsupervised Therapeutic Activity: () Exercises to improve dynamic activities, functional tasks, functional mobility to return to prior activity level as needed. Neuromuscular re-education: Balance Training, Muscle Facilitation, Dynamic Stability, Core Stabilization, and Blood Flow Restriction Training (BFRT) as needed. Modalities: (10 minutes) HP to low back and buttock in sitting following treatment Assessment: Pt has completed 16 PT sessions for low back pain. Weakness noted right LE this date with standing exercises. Continues to require moderate to max UE assistance to ascend 4 inch step. Pt will benefit from further PT. Outcome Measure: Lower Extremity Functional Scale (LEFS): 24/80 Rehab Diagnosis: low back pain, bilateral LE pain and weakness, difficulty walking Short Term Goal: To be met in 2 weeks Goal 1: Pt to be instructed in home exercise program. - met Commercial Analyst Goals: To be met in 10 weeks [...] CI PT [address] [facility] [address] [place] [address] Jacqui Harper PT 04/07/2026 11:15 AM EDT Office Visit [facility] [address] [place] [address] Jr. Jovi Silva DO [address] [facility] [address] [place] [address] documented as of this encounter Visit Diagnoses Diagnosis Low back pain, unspecified back pain laterality, unspecified chronicity, unspecified whether sciatica present- Primary documented in this encounter Care Teams Thread Grinder Tool Relationship Specialty Start Date End Date Robert Lopez DO PCP - General Internal Medicine 04/03/24 documented as of this encounter
--- OUTSIDE RECORDS SUMMARY | 2025-04-15 09:37 | XMS_ITS ---
Author Name Auto Generated Organization OHIP Support Name Relationship Address Phone ASHLEY, DEONNA Next of Kin Unknown + ASHLEY, DEONNA Next of Kin Unknown + ASHLEY, DEONNA Next of Kin Unknown + ASHLEY, DEONNA Next of Kin Unknown + ASHLEY, DEONNA Next of Kin Unknown + ASHLEY, DEONNA Next of Kin Unknown + ASHLEY, DEONNA Next of Kin Unknown + ASHLEY, DEONNA Next of Kin Unknown + ASHLEY, DEONNA Next of Kin Unknown + ASHLEY, DEONNA Next of Kin Unknown + ASHLEY, DEONNA Next of Kin Unknown + ASHLEY, DEONNA Next of Kin Unknown + ASHLEY, DEONNA Next of Kin Unknown + ASHLEY, DEONNA Next of Kin Unknown + ASHLEY, DEONNA Next of Kin Unknown + ASHLEY, DEONNA Next of Kin Unknown + [place] [address] +[phone] Ashley, Deonna Next of Kin [address] [facility] [place] [address] + [place] [address] +[phone] Ashley, Deonna Next of Kin [address] [facility] [place] [address] + [place] [address] [phone] Deonna Ramirez Next of Kin [address] [facility] [place] [address] + [place] [address] +[phone] Deonna Ramirez Next of Kin [address] [place] [address], [place] [address] + [place] [address] +[phone] Deonna Ramirez Next of Kin [address] [place] [address], [place] [address] + [place] [address] +[phone] Deonna Ramirez Next of Kin [address] [place] [address], [place] [address] + [place] [address] +[phone] Deonna Ramirez Next of Kin [address] [place] [address], [place] [address] + Care Team Providers Care Unstacker Name Role Phone Emelyn, Michael S Admitting Unavailable Ball, Robert Primary Care Unavailable Emelyn, Michael S Attending Unavailable Ball, Robert Primary Care Unavailable Emelyn, Michael S Attending Unavailable Emelyn, Michael S Admitting Unavailable Ball, Robert Primary Care Unavailable Emelyn, Michael S Admitting Unavailable Emelyn, Michael S Attending Unavailable Emelyn, Michael S Admitting Unavailable Ball, Robert Primary Care Unavailable Emelyn, Michael S Attending Unavailable Emelyn, Michael S Admitting Unavailable Ball, Robert Primary Care Unavailable Emelyn, Michael S Attending Unavailable Emelyn, Ziad S Admitting Unavailable Emelyn, Ziad S Attending Unavailable Ball, Robert Primary Care Unavailable Emelyn, Michael S Admitting Unavailable Ball, Robert Primary Care Unavailable Emelyn, Michael S Attending Unavailable Taye VAZQUEZ Attending Unavailable Jeff Medellin Attending Unavailable Taye VAZQUEZ Attending Unavailable LINDA VARGAS Attending Unavailable BALL, ROBERT E Referring Unavailable CLEMENTINE HAGEN Attending Unavailable BALL, ROBERT E Referring Unavailable CLEMENTINE HAGEN Attending Unavailable BALL, ROBERT E Referring Unavailable VARGASLINDA Attending Unavailable BALL, ROBERT E Referring Unavailable KELBLEY, SHEREE Attending Unavailable BALL, ROBERT E Referring Unavailable KELBLEY, SHEREE Attending Unavailable BALL, ROBERT E Referring Unavailable XIAO, CLEMENTINE Attending Unavailable BALL, ROBERT E Referring Unavailable KELBLEY, SHEREE Attending Unavailable BALL, ROBERT E Referring Unavailable KELBLEY, SHEREE Attending Unavailable BALL, ROBERT E Referring Unavailable VARGAS, LINDA Attending Unavailable BALL, ROBERT E Referring Unavailable VARGAS, LINDA Attending Unavailable BALL, ORBERT E Referring Unavailable VARGAS, LINDA Attending Unavailable BALL, ROBERT E Referring Unavailable VARGAS, LINDA Attending Unavailable BALL, ROBERT E Referring Unavailable XIAO, CLEMENTINE Attending Unavailable BALL, ROBERT E Referring Unavailable VARGAS, LINDA Attending Unavailable BALL, ROBERT E Referring Unavailable VARGAS, LINDA Attending Unavailable BALL, ROBERT E Referring Unavailable PROBLEMS DATE TYPE CONDITION / CODE ATTENDING STATUS [facility] 08/10/2024 Unknown Other chronic pa in / G89.29(ICD-10) [facility] 06/15/2024 Unknown Postlaminectomy syndrome, not elsewhere classified / M96.1(ICD-10) [facility] 05/09/2024 Unknown Other bursitis o f hip, unspecified hip / M70.70(ICD-10) [facility] 05/09/2024 Unknown Spondylosis with out myelopathy or radiculopathy, lumbosacral region / M47.817(ICD-10) [facility] 05/09/2024 Unknown Spondylosis with out myelopathy or radiculopathy, sacral and sacrococcygeal region / M47.818(ICD-10) [facility] 05/07/2024 Unknown retirement (curre nt) use of anticoagulants / Z79.01(ICD-10) [facility] PROCEDURES No Procedure Records Found RESULTS AMBULATORY VISIT SUMMARY Observed: 04/01 1:57 PM Status: F Source: [facility] Ambulatory Visit Summary SANDRA TAVAREZ :1940 Visit Date:04/01/2025 Ambulatory Visit Instructions Your Diagnosis Cecal polyp Chronic anticoagulation Redundant colon Your Care Team Attending Physician - Lacie JENNINGS, Mohamad A. Primary Care Physician - BALL DO, ROBERT This Is Your Medications List Contact prescribing physician if questions or concerns atorvastatin (atorvastatin 20 mg Tab) furosemide (Lasix 20 mg Tab) iron polysaccharide (Ferrex-150 oral capsule) levetiracetam (Keppra 500 mg Tab) loperamide (Imodium A-D) losartan (losartan 50 mg Tab) potassium chloride (potassium chloride 10 mEq ER Tab) warfarin (Coumadin 5 mg Tab) Procedures Performed Colonoscopy (03/10/2022), EGD - esophagogastroduodenoscopy (03/10/2022), IOL - Cataract extraction and insertion of [...] cuff repair. Discharge Vitals Heart Rate (Peripheral) 86 Respiratory Rate 14 Blood Pressure 182/95 Height 152 cm Height 60 in Weight 124 kg Weight 273.373 lb BMI 53.67 Medications What How Much When Instructions Unchanged atorvastatin (atorvastatin 20 mg Tab) 1 Tablets By Mouth Once a day (at bedtime) Contact prescribing physician if questions or concerns Unchanged furosemide (Lasix 20 mg Tab) 1 Tablets By Mouth 2 times a day Contact prescribing physician if questions or concerns Unchanged iron polysaccharide (Ferrex-150 oral capsule) 1 Capsules By Mouth Every other day Contact prescribing physician if questions or concerns Unchanged levetiracetam (Keppra 500 mg Tab) See instructions 1 1/ 2 am 1 1/ 2 om Contact prescribing physician if questions or concerns Unchanged loperamide (Imodium A-D) By Mouth As needed for as needed for loose stool Contact prescribing physician if questions or concerns [...] or concerns Allergies CeleBREX (rash) Tape (rash) penicillin (Unknown) Problems Ongoing - Any problem that you are currently receiving treatment for. Acquired spondylolisthesis Adrenal adenoma BMI 50.0-59.9, adult Cecal polyp Chronic anticoagulation Chronic venous insufficiency Class 3 obesity Common variable agammaglobulinemia Congestive heart failure CVF (colovesical fistula) Depression Diabetes GERD (gastroesophageal reflux disease) History of deep vein thrombosis History of pulmonary embolism HTN (hypertension) Hyperlipidemia Iron deficiency anemia Lumbar stenosis with neurogenic claudication Morbid obesity with BMI of 50.0-59.9, adult Obstructive sleep apnea Osteoporosis Pulmonary hypertension Redundant colon Seizure disorder Historical - Any problem that you are no longer receiving treatment for. Cholelithiasis Colovesical fistula CVI (common variable immunodeficiency) Diverticulosis Hyperlipidemia Obesity PE (pulmonary thromboembolism) Seizure SNHL (sensorineural hearing loss) Patient Survey You may receive a survey via text or e-mail asking about your office visit. Please share your experience with us by completing your survey. We appreciate your feedback and thank you for choosing us for your care. GASTROENTEROLOGY OFFICE/CLINIC NOTE Obse rved: 04/01/2025 1:57 PM Status: C Source: [facility] Gastroenterology Office/Clin ic Note Chief Complaint 3 year colon recall HPI Staff This is a 84 year old female who presents today for a 3 year recall. Blood Thinners- Warfarin. Denies GLP-1 Agonists. Denies any family history of colon cancer/polyps or IBD. Denies Dysphagia, abdominal pain, or bloody stools. EGD/colonoscopy 03/10/22- no biopsies taken Postoperative diagnosis: Iron deficiency anemia with Hiatal hernia and redundant colon, as well as 3 mm cecal polyp Labs 12/26/24 Prothrombin Time 13.1 High INR 1.1 Partial Thromboplastin Time 29.0 White Blood Count 5.5 Red Blood Count 4.61 Hemoglobin 13.4 Hematocrit 41.4 Mean Corpuscular Volume 89.8 Mean Corpuscular Hemoglobin 29.1 Mean Corpuscular HGB Conc 32.4 Red Cell Distribution Width14.0 Platelet Count 202 Mean Platelet Volume 0.1 History of Present Illness I have reviewed HPI staff note, most recent labs and imaging, I agree with the above documentation with the following additions/exceptions : pt is here to discuss repeat colonoscopy last one showed small bowel - redundant Review of Systems PHQ Score Initial Depression Screen Score: 0 SCORE All systems reviewed, negative except as mentioned above Physical Exam Vitals & Measurements HR: 86(Peripheral) RR: 14 BP: 182/95 HT: 152 cm HT: 60 in WT: 124 kg WT: 273.373 lb BMI: 53.67 General: alert, no acute distress HEENT: atraumatic normocephalic Cardiovascular: regular rate and rhythm, normal peripheral perfusion Respiratory: Lungs CTA, respirations non labored Extremities: no deformity, no trauma Abdomen: Benign, soft, nontender nondistended Assessment/Plan 1. Cecal polyp (K63.5: Polyp of colon) Ordered: Current tobacco non-user 1036F Most recent diastolic blood pressure >=90 mm Hg 3080F Most recent systolic blood pressure >= 140 mm Hg 3077F 2. 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 The polyp measured 3 mm and could not be removed given her excessive redundancy. She is referred back to have her polyp removed. Discussed and counseled the patient about the chance of developing colon cancer in his age is very low and the risk of potential complications from being on chronic anticoagulation, her age, and redundant colon. Patient wants to think about proceeding with colonoscopy before scheduling it. Will review endoscopy pictures. Patient will benefit from losing weight and eating healthy Follow-up No qualifying data available Problem List/Past Medical History Ongoing Acquired spondylolisthesis Adrenal adenoma BMI 50.0-59.9, adult Cecal polyp Chronic anticoagulation Chronic venous insufficiency Class 3 obesity Common variable agammaglobulinemia Congestive heart failure CVF (colovesical fistula) Depression Diabetes GERD (gastroesophageal reflux disease) History of deep vein thrombosis History of pulmonary embolism HTN (hypertension) Hyperlipidemia Iron deficiency anemia Lumbar stenosis with neurogenic claudication Morbid obesity with BMI of 50.0-59.9, adult Obstructive sleep apnea Osteoporosis Pulmonary hypertension Redundant colon Seizure disorder Historical Cholelithiasis Colovesical fistula CVI (common variable immunodeficiency) Diverticulosis Hyperlipidemia Obesity PE (pulmonary thromboembolism) Seizure SNHL (sensorineural hearing loss) Procedure/Surgical History Colonoscopy (03/10/2022), EGD - esophagogastroduodenoscopy (03/10/2022), IOL - Cataract extraction and insertion of intraocular lens (09/13/2017), Cataract extraction and insertion of intraocular lens (08/16/2017), L4-L5 lumbar laminectomy, foraminotomy with facetectomy with decompression L5 nerve roots bilaterally (04/07/2015), Colonoscopy (2009), Colonoscopy (2004), Craniotomy (1964), Arthroplasty of knee, Cholecystectomy, Chondroplasty, Cystoscopy, EGD, insertion of jaspreet filter, Knee arthroplasty, Lap sigmoid resection, orif right femur, right knee arthroscopy, Rotator cuff repair. Medications atorvastatin 20 mg Tab, 20 mg= 1 tab(s), Oral, Once a day (at bedtime) Coumadin 5 mg Tab, See Instructions Ferrex-150 oral capsule, 150 mg= 1 cap(s), Oral, Every other day Imodium A-D, Oral, PRN Keppra 500 mg Tab, See Instructions Lasix 20 mg Tab, 20 mg= 1 tab(s), Oral, BID losartan 50 mg Tab, 50 mg= 1 tab(s), Oral, Daily potassium chloride 10 mEq ER Tab, 10 mEq= 1 tab(s), Oral, Daily Allergies CeleBREX (rash) Tape (rash) penicillin (Unknown) Social History Alcohol - Denies Alcohol Use, 03/27/2015 Never., 03/31/2025 Substance Abuse - Denies Substance Abuse, 03/27/2015 Never., 03/31/2025 Tobacco - Denies Tobacco Use, 03/27/2015 Former smoker, quit more than 30 days ago Tobacco Use:., 04/01/2025 Former smoker, quit more than 30 days ago Tobacco Use:., 03/31/2025 Family History Cardiac arrest: Father. Diabetes mellitus type 2: Sister. Hypertension: Father, Sister and Grandparent. Leukemia: Father. Metastatic cancer: Grandparent. Stroke: Mother. Immunizations Vaccine Date Status influenza virus vaccine, inactivated 08/06/2024 Recorded SARS-CoV-2 (COVID-19) mRNA BNT-162b2 vax 10/05/2021 Recorded SARS-CoV-2 (COVID-19) mRNA BNT-162b2 vax 02/11/2021 Recorded SARS-CoV-2 (COVID-19) mRNA BNT-162b2 vax 01/21/2021 Recorded Patient called into office and stated that she does not want to proceed with colonoscopy Result Comment: Electronical ly Signed By: Carmen Goss MA\.br\Date and Time Signed: 04/11/25 10:07 EDT AMBULATORY VISIT SUMMARY Observed: 02/26 1:13 PM Status: F Source: [facility] Ambulatory Visit Summary SANDRA TAVAREZ :1940 Visit Date:02/26/2025 Ambulatory Visit Instructions Your Care Team Attending Physician - GEORGE JENNINGS, Taye Lopez Primary Care Physician - ROBERT VAIL DO This Is Your Medications List atorvastatin (atorvastatin 20 mg Tab) furosemide (Lasix 20 mg Tab) iron polysaccharide (Ferrex-150 oral capsule) levetiracetam (Keppra 500 mg Tab) losartan (losartan 50 mg Tab) potassium chloride (potassium chloride 10 mEq ER Tab) warfarin (Coumadin 5 mg Tab) Procedures Performed Colonoscopy (03/10/2022), EGD - esophagogastroduodenoscopy (03/10/2022), IOL - Cataract extraction and insertion of [...] cuff repair. Discharge Vitals Heart Rate (Peripheral) 76 Respiratory Rate 20 Blood Pressure 132/82 Height 152.5 cm Height 60 in Weight 124.3 kg Weight 274.034 lb BMI 53.45 Medications What How Much When Instructions Unchanged atorvastatin (atorvastatin 20 mg Tab) 1 Tablets By Mouth Once a day (at bedtime) Unchanged furosemide (Lasix 20 mg Tab) 1 Tablets By Mouth 2 times a day Unchanged iron polysaccharide (Ferrex-150 oral capsule) 1 Capsules By Mouth Every other day Unchanged levetiracetam (Keppra 500 mg Tab) 1 Tablets By Mouth 2 times a day 1 caps in AM 1 cap at bedtime Unchanged losartan (losartan 50 mg Tab) 1 Tablets By Mouth Every day Unchanged potassium chloride (potassium chloride 10 mEq ER Tab) 1 Tablets By Mouth Every day Unchanged warfarin (Coumadin 5 mg Tab) See instructions as directed Allergies CeleBREX (rash) Tape (rash) Problems Ongoing - Any problem that you are currently receiving treatment for. Acquired spondylolisthesis Adrenal adenoma BMI 50.0-59.9, adult Chronic anticoagulation Chronic venous insufficiency Class 3 obesity Common variable agammaglobulinemia Congestive heart failure CVF (colovesical fistula) Depression Diabetes GERD (gastroesophageal reflux disease) History of deep vein thrombosis History of pulmonary embolism HTN (hypertension) Hyperlipidemia Iron deficiency anemia Lumbar stenosis with neurogenic claudication Obstructive sleep apnea Osteoporosis Pulmonary hypertension Seizure disorder Historical - Any problem that you are no longer receiving treatment for. Cholelithiasis Colovesical fistula CVI (common variable immunodeficiency) Diverticulosis Hyperlipidemia Obesity PE (pulmonary thromboembolism) Seizure SNHL (sensorineural hearing loss) Patient Survey You may receive a survey via text or e-mail asking about your office visit. Please share your experience with us by completing your survey. We appreciate your feedback and thank you for choosing us for your care. GENERAL SURGERY OFFICE/CLINIC NOTE Obser makayla: 02/26/2025 1:13 PM Status: F Source: [facility] General Surgery Office/Clini c Note Chief Complaint consultation for colonoscopy HPI Staff 84 year old female presents on consultation for surveillance colonoscopy. Last colonoscopy completed 02/2022 with redundant colon and irretrievable cecal polyp. Denies abdominal or rectal pain. No rectal bleeding or change in bowel habits. Denies nausea or vomiting. No unexplained weight loss. History of Present Illness 84 yo female with h/o DVT/PE, on Coumadin, htn, pulmonary htn, hyperlipidemia, KERMIT, morbid obesity, seizure d/o, lumbar stenosis, presents for surveillance colonoscopy, patient s/p EGD/colonoscopy 02/2022 due to iron deficiency anemia; 3 mm sessile polyp noted behind ileocecal valve; due to location and redundancy of colon, unable to remove; patient denies change in bms or blood in stools, no abd complaints; abd operations significant for cholecystectomy and LS sigmoid colectomy; no tobacc use; no fmhx of GI malignancy or IBD. Review of Systems PHQ Score Initial Depression Screen Score: 0 SCORE ROS - Provider Constitutional: no fever, no sweats, no weight loss. Eyes: no glasses, no blurred vision, no visual loss. ENMT: no dentures, no hoarseness, no swallowing difficulties, no hearing loss, no ear infection(s), no nose bleeds. Cardiovascular: normal blood pressure, no chest pain, regular heartbeat, no heart murmur. Respiratory: no shortness of breath, no cough, no asthma, no wheezing. Gastrointestinal: no nausea, no vomiting, no diarrhea, no constipation, no blood in stool, no change in bowel habits, no abdominal pain, no hepatitis. Genitourinary: no kidney stones, no urine infection, no dysuria. Musculoskeletal: moderate pain, yes weakness. Skin: no changing moles, no rash, [...] noncontributory. Physical Exam Vitals & Measurements HR: 76(Peripheral) RR: 20 BP: 132/82 HT: 152.5 cm HT: 60 in WT: 274.034 lb WT: 124.3 kg BMI: 53.45 Assessment/Plan 1. Cecal polyp (K63.5: Polyp of colon) recommend repeat colonoscopy by Gastroenterology, may require lift technique; patient requests referral to [facility]; call with problems/questions. Ordered: [facility] Internal Ambulatory Referral Follow-up No qualifying data available Problem List/Past Medical History Ongoing Acquired spondylolisthesis Adrenal adenoma BMI 50.0-59.9, adult Cecal polyp Chronic anticoagulation Chronic venous insufficiency Class 3 obesity Common variable agammaglobulinemia Congestive heart failure CVF (colovesical fistula) Depression Diabetes GERD (gastroesophageal reflux disease) History of deep vein thrombosis History of pulmonary embolism HTN (hypertension) Hyperlipidemia Iron deficiency anemia Lumbar stenosis with neurogenic claudication Obstructive sleep apnea Osteoporosis Pulmonary hypertension Seizure disorder Historical Cholelithiasis Colovesical fistula CVI (common variable immunodeficiency) Diverticulosis Hyperlipidemia Obesity PE (pulmonary thromboembolism) Seizure SNHL (sensorineural hearing loss) Procedure/Surgical History Colonoscopy (03/10/2022), EGD - esophagogastroduodenoscopy (03/10/2022), IOL - Cataract extraction and insertion of intraocular lens (09/13/2017), Cataract extraction and insertion of intraocular lens (08/16/2017), L4-L5 lumbar laminectomy, foraminotomy with facetectomy with decompression L5 nerve roots bilaterally (04/07/2015), Colonoscopy (2009), Colonoscopy (2004), Craniotomy (1964), Arthroplasty of knee, Cholecystectomy, Chondroplasty, Cystoscopy, EGD, insertion of jaspreet filter, Knee arthroplasty, Lap sigmoid resection, orif right femur, right knee arthroscopy, Rotator cuff repair. Medications atorvastatin 20 mg Tab, 20 mg= 1 tab(s), Oral, Once a day (at bedtime) Coumadin 5 mg Tab, See Instructions Ferrex-150 oral capsule, 150 mg= 1 cap(s), Oral, Every other day Keppra 500 mg Tab, 500 mg= 1 tab(s), Oral, BID Lasix 20 mg Tab, 20 mg= 1 tab(s), Oral, BID losartan 50 mg Tab, 50 mg= 1 tab(s), Oral, Daily potassium chloride 10 mEq ER Tab, 10 mEq= 1 tab(s), Oral, Daily Allergies CeleBREX (rash) Tape (rash) Social History Alcohol - Denies Alcohol Use, 03/27/2015 Substance Abuse - Denies Substance Abuse, 03/27/2015 Tobacco - Denies Tobacco Use, 03/27/2015 Former smoker, quit more than 30 days ago Tobacco Use:. Never Smokeless Tobacco Use:. Cigarettes, 1 per day. Started age 17.0 Years. Stopped age 51 Years., 02/26/2025 Family History Cardiac arrest: Father. Diabetes mellitus type 2: Sister. Hypertension: Father, Sister and Grandparent. Leukemia: Father. Metastatic cancer: Grandparent. Stroke: Mother. Immunizations Vaccine Date Status influenza virus vaccine, inactivated 08/06/2024 Recorded SARS-CoV-2 (COVID-19) mRNA BNT-162b2 vax 10/05/2021 Recorded SARS-CoV-2 (COVID-19) mRNA BNT-162b2 vax 02/11/2021 Recorded SARS-CoV-2 (COVID-19) mRNA BNT-162b2 vax 01/21/2021 Recorded Result Comment: Electronical ly Signed By: GEORGE JENNINGS, Taye Ellington\Date and Time Signed: 02/26/25 13:52 EDT PROTHROMBIN TIME INR Collected: 12/26/2024 9:15 AM S tatus: F Source: [facility] TYPE CODE TESTS RESULT OUT OF RANGE REFERENCE UNITS LAB R PT Prothrombin Time 13.1 High 9.0-12.9 s Result Comment: A hematocrit value greater than 55% may lead to inaccurate results in coagulation testing. Patients having hematocrit values >55% require a special collection tube for coagulation studies. Please contact the laboratory at [phone] for redraw instructions. LAB INR INR 1.1 Result Comment: INR Therapeu tic Range A) Pre- and Peroperative OAT started two weeks before surgery. NOT HIP SURGERY: 1.5 - 2.5 HIP SURGERY: 2 - 3 B) Primary and secondary prevention of venous THROMBOSIS: 2 - 3 C) Active venous thrombosis, pulmonary embolism and prevention of recurrent venous thrombosis: 2 - 3 D) Prevention of arterial thromboembolism including patients with mechanical heart valves: 3 - 4.5 Performed By: #### PT, PTT # ### [facility] [address] [place] [id number] [facility] PARTIAL THROMBOPLASTIN TIME Collected: 12/26/2024 9:1 5 AM Status: F Source: [facility] TYPE CODE TESTS RESULT OUT OF RANGE REFERENCE UNITS LAB PTT Partial Thromboplastin Time 29.0 Normal 25.1-36.5 s Result Comment: A hematocrit value greater than 55% may lead to inaccurate results in coagulation testing. Patients having hematocrit values >55% require a special collection tube for coagulation studies. Please contact the laboratory at [phone] for redraw instructions. PERFORMED BY: [place] [id number] PATHOLOGIST SEWER HEAD ESDRAS MOREL M.D. Performed By: #### PT, PTT # ### [facility] [address] [place] [id number] [facility] PROTHROMBIN TIME INR Collected: 025 12:28 PM Status: F Source: [facility] TYPE CODE TESTS RESULT OUT OF RANGE REFERENCE UNITS LAB R PT Prothrombin Time 18.8 High 9.0-12.9 s Result Comment: A hematocrit value greater than 55% may lead to inaccurate results in coagulation testing. Patients having hematocrit values >55% require a special collection tube for coagulation studies. Please contact the laboratory at [phone] for redraw instructions. LAB INR INR 1.6 Result Comment: INR Therapeu tic Range A) Pre- and Peroperative OAT started [...] heart valves: 3 - 4.5 PERFORMED BY: [place] [address] PATHOLOGIST SEWER HEAD ESDRAS MOREL M.D. Performed By: #### PT #### [facility] [address] [place] [id number] [facility] PROTHROMBIN TIME INR Collected: 12:19 PM Status: F Source: [facility] TYPE CODE TESTS RESULT OUT OF RANGE REFERENCE UNITS LAB R PT Prothrombin Time 15.1 High 9.0-12.9 s Result Comment: A hematocrit value greater than 55% may lead to inaccurate results in coagulation testing. Patients having hematocrit values >55% require a special collection tube for coagulation studies. Please contact the laboratory at [phone] for redraw instructions. LAB INR INR 1.3 Result Comment: INR Therapeu tic Range A) Pre- and Peroperative OAT started [...] heart valves: 3 - 4.5 PERFORMED BY: [place] [id number] PATHOLOGIST SEWER HEAD HERMELINDO BULM M.D. Performed By: #### PT #### [facility] [address] [place] [address] [facility] PROTHROMBIN TIME INR Collected: 08/09/2024 8:24 AM S tatus: F Source: [facility] TYPE CODE TESTS RESULT OUT OF RANGE REFERENCE UNITS LAB R PT Prothrombin Time 19.0 High 9.0-12.9 s Result Comment: A hematocrit value greater than 55% may lead to inaccurate results in coagulation testing. Patients having hematocrit values >55% require a special collection tube for coagulation studies. Please contact the laboratory at [phone] for redraw instructions. LAB INR INR 1.7 Result Comment: INR Therapeu tic Range A) Pre- and Peroperative OAT started [...] heart valves: 3 - 4.5 PERFORMED BY: [place] [address] PATHOLOGIST SEWER HEAD HERMELINDO BLUM M.D. Performed By: #### PT #### [facility] [address] [place] [address] MR LUMBAR SPINE WO CON Observed: 024 8:26 PM Status: COMPLETED Source: [facility] [place] [address] MRI Report Signed Patient: Sandra Tavarez MR#: [id number] 7 : 1940 Acct:[id number] Age/Sex: 83 / F ADM Date: 06/15/24 Loc: Room: Type: [facility] Attending Dr: Michael Dunaway MD Copies to: Michael Dunaway MD Ordering Provider: Michael Dunaway MD Date of Service: 06/15/24 MR/MR lumbar spine wo con: M96.1 MR lumbar spine wo con 06/15/2024 7:08 PM SIGNS AND SYMPTOMS: Chronic back pain, history of lumbar fusion PROTOCOL: Multiplanar multisequence MR images of the lumbar spine were obtained without IV contrast COMPARISON: 01/02/2022. FINDINGS: There is 8 millimeters of anterolisthesis of L4 upon L5. Fusion hardware is noted on the left. There is preservation of vertebral body heights. There is moderate severe disc height loss at T11-T12. There is mild to moderate disc height loss in the lower thoracic spine. There is mild disc height loss at L2-3, L3-4, and L4-5. The marrow signal is within normal limits. The conus terminates at the inferior endplate of the L1 vertebral body level. No epidural or paraspinous fluid collection is appreciated. At T12-L1: There is a broad-based disc bulge with facet. There is mild spinal canal stenosis with mild right and moderate left neural foraminal stenosis. This is similar to the prior exam. At L1-L2: There is a broad-based disc bulge with facet hypertrophy and ligamentum flavum thickening. There is mild spinal canal stenosis with moderate bilateral neural foraminal narrowing. This is similar to the prior exam. At L2-L3: There is a circumferential disc bulge with facet hypertrophy and ligamentum flavum thickening. There is mild spinal canal stenosis with mild left and moderate to severe right neural foraminal narrowing similar to the prior exam. At L3-L4: There is a circumferential disc bulge with facet hypertrophy and ligamentum flavum thickening there is severe spinal canal stenosis similar to the prior exam. There is moderate severe left and severe right neural foraminal narrowing with mass effect on the exiting L3 nerve roots right greater than left. This is similar to the prior exam. At L4-L5: There is 8 mm of anterolisthesis of L4 upon L5. There is a circumferential disc bulge with facet hypertrophy and left-sided posterior fusion hardware. There is a new focal right foraminal disc protrusion on the right. There is moderate to severe spinal canal stenosis similar to the prior exam. There is severe right and moderate to severe left neural foraminal narrowing with mass effect on the exiting L4 nerve roots right greater than left. This is slightly worse on the right when compared to the prior exam. At L5-S1: There is a broad-based disc bulge with facet hypertrophy and ligamentum flavum thickening. There is severe left and moderate right neural foraminal narrowing with moderate spinal canal stenosis. This is similar to the prior exam. MR/MR lumbar spine wo con IMPRESSION: At L4-L5: There is 8 mm of anterolisthesis of L4 upon L5. There is a circumferential disc bulge with facet hypertrophy and left-sided posterior fusion hardware. There is a new focal right foraminal disc protrusion on the right. There is moderate to severe spinal canal stenosis similar to the prior exam. There is severe right and moderate to severe left neural foraminal narrowing with mass effect on the exiting L4 nerve roots right greater than left. This is slightly worse on the right when compared to the prior exam. There are additional degenerative changes of aging degrees throughout the lumbar spine which are unchanged when compared to the prior exam. Impression dictated by: Tex Diaz M.D.06/15/2024 8:35 PM Dictation Location: [place] [address] Transcribed By: [facility] 06/15/242034 Dictated By: Tex Diaz II, MD 06/15/242025 Signed By: <Electronically signed by Tex Diaz II, MD in [place]> 06/15/242034 XR PELVIS 1-2V Observed: 05/09/2024 3:56 PM Status: COMPLETED Source: [facility] [place] [address] XRay Report Signed Patient: Sandra Tavarez MR#: [id number] 7 : 1940 Acct:[id number] Age/Sex: 83 / F ADM Date: 05/07/24 Loc: XD Room: Type: PRE CLI Attending Dr: Michael Dunaway MD Copies to: Michael Dunaway MD Ordering Provider: Michael Dunaway MD Date of Service: 05/09/24 XR/XR pelvis 1-2V: M70.70 - Other bursitis of hip, unspecified hip ([id number]) XR/XR lumbar spine AP/LAT/FLX/EXT: M47.817 - Spondylosis without myelopathy or radiculopathy... ([id number]) XR/XR sacrum coccyx min 2V: M47.818 - Spondylosis without myelopathy or radiculopathy... LUMBAR SPINE - 4 views, pelvis one view, sacrum/coccyx 4 views CLINICAL HISTORY: Leg weakness difficulty standing low back pain radiates into hips. COMPARISON: None. FINDINGS: Bones are grossly demineralized limiting evaluation for fracture. Lumbar spine: Scattered endplate and facet joint degenerative changes with hardware fixation L4-L5 without evidence of hardware complication. No pathological motion on flexion or extension views. Mild diffuse disc space narrowing. No significant vertebral body height loss. Sacrum/coccyx: Degenerative changes involving the SI joints. Sacral foramina appear grossly intact. Coccyx appears grossly intact. Pelvis: Mild degenerative changes of the hips. No acute bony process is seen. Degenerative changes involving the pubic symphysis. XR/XR lumbar spine AP/LAT/FLX/EXT IMPRESSION: DEGENERATIVE CHANGES INVOLVING THE LUMBAR SPINE, SACRUM AND PELVIS WITHOUT ACUTE BONY PROCESS. Impression dictated by: Jaspreet Orozco Jr., D.OKen05/09/2024 3:59 PM Dictation Location: [place] [address] Transcribed By: [facility] 05/09/24 1559 Dictated By: Jaspreet Orozco Jr, DO 05/09/24 1556 Signed By: <Electronically signed by Jasrpeet Orozco Jr, in [place]> 05/09/24 1559 PROTHROMBIN TIME INR Collected: 024 11:55 AM Status: F Source: [facility] TYPE CODE TESTS RESULT OUT OF RANGE REFERENCE UNITS LAB R PT Prothrombin Time 22.3 High 9.0-12.9 s Result Comment: A hematocrit value greater than 55% may lead to inaccurate results in coagulation testing. Patients having hematocrit values >55% require a special collection tube for coagulation studies. Please contact the laboratory at [phone] for redraw instructions. LAB INR INR 2.0 Result Comment: INR Therapeu tic Range A) Pre- and Peroperative OAT started [...] heart valves: 3 - 4.5 PERFORMED BY: [place] [address] PATHOLOGIST SEWER HEAD HERMELINDO BLUM M.D. Performed By: #### PT #### [place] [address] [place] ALLERGIES DATE TYPE / CODE NAME / CODE REACTION SEVERITY SOURCE 01/04/2025 Drug Allergy/5773269 02(SNOMED CT) Penicillins/[id number] (RXNORM) Hives Unknown [facility] 01/04/2025 Drug Allergy/7071990 02(SNOMED CT) celecoxib/L092290456(R XNORM) Hives Unknown [facility] 01/04/2025 Drug Allergy/6358499 02(SNOMED CT) citalopram/X546195968( RXNORM) Hives Unknown [facility] /394147538(SN OMED CT) Tape Rash [facility] RICARDO588722252(SN OMED CT) penicillins groggy [facility] RICARDO149554360(SN OMED CT) CeleBREX Rash [facility] ENCOUNTERS ADMIT/DISCHARGE ACCOUNT NUMBER ADMITTING ENCOUNTER CLASS LOCATION SOURCE 04/15/2025/04/15/20 [id number] Ambulatory Building:[facility] 04/11/2025/04/11/20 [id number] Ambulatory Building:[facility] 04/04/2025/04/04/20 [id number] Ambulatory Building:[facility] 04/01/2025/04/01/20 [id number] Ambulatory [facility] DHBuilding:[place] D[place]oom: CD:[id number] [facility] 04/01/2025/04/01/20 [id number] Ambulatory Building:[facility] 03/21/2025/03/21/20 [id number] Ambulatory Building:[facility] 03/14/2025/03/14/20 25 [id number] Ambulatory Building:[facility] 02/28/2025/02/29/20 25 [id number] Ambulatory Building:[facility] 02/26/2025 [id number] [place] [facility] 02/26/2025/02/27/20 25 [id number] [place] : Procedure [facility] 02/25/2025/02/26/20 [id number] Ambulatory Building:NOM [facility] 02/21/2025 [id number] Ambulatory [place] [facility] 02/20/2025/02/21/20 25 [id number] Ambulatory Building:NOM SCIPT [facility] 02/13/2025/02/14/20 25 [id number] Ambulatory Building:NOM SCIPT [facility] 02/07/2025/02/08/20 [id number] Ambulatory Building:NOM SCIPT [facility] 02/04/2025/02/05/20 25 [id number] Ambulatory Building:NOM SCIPT [facility] 01/23/2025/01/23/20 25 [id number] Ambulatory Building:NOM SCIPT [facility] 01/21/2025/01/21/20 25 [id number] Ambulatory Building:NOM SCIPT [facility] 01/17/2025/01/18/20 [id number] Ambulatory Building:NOM SCIPT [facility] 01/14/2025/01/14/20 25 [id number] Ambulatory Building:NOM SCIPT [facility] 12/26/2024/12/26/19 [id number] [facility] 12/24/2024/12/24/19 [id number] [facility] 08/10/2024/08/10/20 [id number] [facility] 08/09/2024/08/09/20 24 [id number] [facility] 06/15/2024/06/15/20 24 [id number] [facility] 05/09/2024/05/09/20 24 [id number] [facility] 05/07/2024/05/07/20 24 [id number] [facility] PAYERS ENCOUNTER GUARANTOR PAYER SUBSCRIBER SOURCE 04/15/2025 SANDRA ALVAREZ: [address] [place] [address]Zix: (HP) Primary Insurance:MEDICAREP olicy Number: [id number] e Date:7616-24-04Ibrn Name:Medicare SANDRA K GRAYDOB: [id number] [place] [address] [facility] EPIC 04/15/2025 Secondary Insurance:MUTUAL OF OMAHAPolicy Number: [id number] Date:2010-11-28 SANDRA PHOENIXB: [id number] [place] [address] [facility] EPIC 04/11/2025 SANDRA TAVAREZB: [address] [place] [address]Izi: (HP) Primary Insurance:MEDICAREP olicy Number: [id number] e Date:1588-19-45Njwk Name:Medicare SANDRA K GRAYDOB: [id number] [address] [facility] EPIC 04/11/2025 Secondary Insurance:[place]UTUAL OF [place]icy Number: [id number] Date:2010-11-28 SANDRA PHOENIXB: [id number] [address] [facility] EPIC 04/04/2025 SANDRA TAVAREZB: [id number] [address] [place] [address]Oof: (HP) Primary Insurance:MEDICAREP olicy Number: [id number] e Date:4009-08-64Nrys Name:Medicare SANDRA K GRAYDOB: [id number] [place] [address] [facility] EPIC 04/04/2025 Secondary Insurance:MUTUAL OF [place]NA[place]APolicy Number: [id number] Date:2010-11-28 SANDRA Umana ALBANB: [id number] [place] [address] [facility] EPIC 04/01/2025 K ALBANB: [address]Tel: ~([phone] (ZN) Primary Insurance:MEDICAREP olicy Number: [id number] e Date:0653-44-97[id number] [place] [address]GX: SANDRA HENDRICKS [facility] 04/01/2025 Secondary Insurance:MUTUAL OF [place]olicy Number: [id number] Date:3232-47-99SUZO AL [place], [place] [address]NI: SANDRA HENDRICKS [facility] 04/01/2025 SANDRA Umana ALBANB: [id number] [address] [place] [address]Qim: (HP) Primary Insurance:MEDICAREP olicy Number: [id number] e Date:6257-53-29Ulza Name:Medicare SANDRA Umana ALBANB: [id number] [address] [facility] EPIC 04/01/2025 Secondary Insurance:MUTUAL OF [place]MANA[place]KAAPolicy Number: [id number] Date:2010-11-28 K KIM: [id number] [address] [facility] 03/21/2025 K ALBANB: [id number] [address] [place] [address]Akv: (HP) Primary Insurance:MEDICAREP olicy Number: [id number] e Date:9564-93-21Nipd Name:Medicare SANDRA K GRAYDOB: [id number] [address] [facility] 03/21/2025 Secondary Insurance:MUTUAL OF [place]olicy Number: [id number] Date:2010-11-28 SANDRA TAVAREZB: [id number] [address] [facility] 03/14/2025 SANDRA Umana ALBANB: [address] [address]Ojh: (HP) Primary Insurance:MEDICAREP olicy Number: [id number] e Date:2936-02-63Jtpt Name:Medicare SANDRA K GRAYDOB: [id number] [address] [facility] 03/14/2025 Secondary Insurance:MUTUAL OF [place]olicy Number: [id number] Date:2022-11-28 SANDRA Umana ALBANB: [id number] [place] [address] [facility] 02/28/2025 SANDRA Umana ALBANB: [address] [address]Iws: (HP) Primary Insurance:MEDICAREP olicy Number: [id number] e Date:2455-85-24Wyoi Name:Medicare SANDRA K GRAYDOB: [id number] [place] [address] [facility] 02/28/2025 Secondary Insurance:MUTUAL OF [place]olicy Number: [id number] Date:2022-11-28 SANDRA Umana ALBANB: [id number] [place] [address] [facility] EP[facility] 02/26/2025 SANDRA TAVAREZB: [address]Tel: ~[phone] (HP) Primary Insurance:MUTUAL OF OMAHAPolicy Number: [id number] Date:9760-82-93ZQIE AL [place], [place] [address]BI: SANDRA HENDRICKS [facility] 02/26/2025 Secondary Insurance:MEDICAREP olicy Number: [id number] e Date:7267-47-22DA [address] [place] [address]AG: SANDRA HENDRICKS [facility] 02/26/2025 SANDRA TAVAREZB: [address]Tel: ~[phone] (HP) Primary Insurance:MEDICAREP olicy Number: [id number] e Date:8764-32-66EQ [address] [place] [address]MK: SANDRA HENDRICKS [facility] 02/26/2025 Secondary Insurance:MUTUAL OF [place]MAHAPolicy Number: [id number] Date:7883-51-80QEZK AL [place] [address]JN: SANDRA HENDRICKS [facility] 02/25/2025 SANDRA TAVAREZB: [address] [address]Ile: (HP) Primary Insurance:MEDICAREP olicy Number: [id number] e Date:3296-70-90Lmsh Name:Medicare SANDRA TAVAREZB: [id number] [address] [facility] EP[facility] 02/25/2025 Secondary Insurance:MUTUAL OF [place]olicy Number: [id number] Date:2022-11-28 SANDRA PHOENIXB: [id number] [address] [facility] 02/20/2025 SANDRA TAVAREZDOB: [address] [address]Dkl: (HP) Primary Insurance:MEDICAREP olicy Number: [id number] e Date:9813-33-79Ljsv Name:Medicare SANDRA K GRAYDOB: [id number] [address] [facility] 02/20/2025 Secondary Insurance:MUTUAL OF Julia Number: [id number] Date:2022-11-28 SANDRA TAVAREZDOB: [id number] [address] [facility] 02/13/2025 SANDRA TAVAREZDOB: [address] [address]Fxj: (HP) Primary Insurance:MEDICAREP olicy Number: [id number] Date:2073-55-09Rodu Name:Medicare SANDRA K GRAYDOB: [id number] [address] [facility] EP[facility] 02/13/2025 Secondary Insurance:MUTUAL OF MONIKAANAMIKAWillis Number: [id number] Date:2022-11-28 SANDRA TAVAREZDOB: [id number] [address] [facility] 02/07/2025 SANDRA TAVAREZDOB: [id number] [address] [place] [address]Aeh: (HP) Primary Insurance:MEDICAREP olicy Number: [id number] e Date:7164-80-09Gvzc Name:Medicare SANDRA TAVAREZDOB: [id number] [address] [facility] 02/07/2025 Secondary Insurance:MUTUAL OF [place]olicy Number: [id number] Date:2022-11-28 SANDRA TAVAREZDOB: [id number] [place] [address] [facility] 02/04/2025 SANDRA Umana SALENADOB: [id number] [address] [address]Bmu: (HP) Primary Insurance:MEDICAREP olicy Number: [id number] e Date:4760-83-82Dyyj Name:Medicare SANDRA K GRAYDOB: [id number] [address] [facility] 02/04/2025 Secondary Insurance:MUTUAL OF [place]olicy Number: [id number] Date:2022-11-28 SANDRA Umana ALBANB: [id number] [address] [facility] 01/23/2025 SANDRA Umana ALBANB: [id number] [address] [place] [address]Opf: (HP) Primary Insurance:MEDICAREP olicy Number: [id number] e Date:2525-17-24Olkh Name:Medicare SANDRA TAVAREZDOB: [id number] [place] [address] [facility] 01/23/2025 Secondary Insurance:MUTUAL OF [place]olicy Number: [id number] Date:2022-11-28 SANDRA Umana ALBANB: [id number] [address] [facility] 01/21/2025 SANDRA PHOENIXB: [id number] [address] [place] [address]Zyh: () Primary Insurance:MEDICAREP olicy Number: [id number] e Date:2941-91-84Hgln Name:Medicare SANDRA K GRAYDOB: [id number] [address] [facility] 01/21/2025 Secondary Insurance:MUTUAL OF [place]olicy Number: [id number] Date:2022-11-28 SANDRA TAVAREZDOB: [id number] [place] [address] [facility] 01/17/2025 SANDRA TAVAREZB: [address] [address]Quv: () Primary Insurance:MEDICAREP olicy Number: [id number] e Date:6905-88-12Dfui Name:Medicare SANDRA K GRAYDOB: [id number] [address] [facility] 01/17/2025 Secondary Insurance:MUTUAL OF [place]olicy Number: [id number] Date:2022-11-28 SANDRA PHOENIXB: [id number] [address] [facility] 01/14/2025 SANDRA TAVAREZDOB: [id number] [address] [place] [address]Rgs: () Primary Insurance:MEDICAREP olicy Number: [id number] e Date:9063-85-34Auzi Name:Medicare SANDRA K GRAYDOB: [id number] [place] [address] [facility] 01/14/2025 Secondary Insurance:MUTUAL OF [place]olicy Number: [id number] Date:2022-11-28 SANDRA TAVAREZMELISA: [id number] [place] [address] [facility] 12/26/2024 Sandra Tavarez[address], [place] [address]Eev: (HP) Primary Insurance:MedicareP olicy Number: [id number] e Date:2024-12-25 Sandra TavarezB: [id number], [place] [address]Pgz: (HP) [facility] 12/26/2024 Secondary Insurance:[place] Number: [id number] Date:2024-12-25 Sandra Umana Kim: [id number], [place] [address]Ttg: (HP) [facility] 12/26/2024 Tertiary Insurance:Self PayPolicy Number: Effective Date:2024-12-25 [facility]20[facility] Sandra Johnson[address], [place] [address]Bcb: (HP) Primary Insurance:MedicareP olicy Number: [id number] e Date:2024-12-24 Sandra Umana Kim: [id number], [place] [address]Gbm: (HP) [facility] 12/24/2024 Secondary Insurance:[place] Number: [id number] Date:2024-12-24 Sandra Umana AlbanB: [id number], [place] [address]Kih: (HP) [facility] 12/24/2024 Tertiary Insurance:Self PayPolicy Number: Effective Date:2024-12-24 NOT GIVENUNK [facility] 08/10/20[address], [place] [address]Jgw: () Primary Insurance:MedicareP olicy Number: [id number] e Date:2024-08-09 Sandra Avlarez: [id number], [place] [address]Kfy: () [facility] 08/10/2024 Secondary Insurance:[place] Number: [id number] Date:2024-08-09 Sandra Alvarez: [id number], [place] [address]Unl: () [facility] 08/10/2024 Tertiary Insurance:Self PayPolicy Number: Effective Date:2024-08-09 [facility] 08/09/2024 Sandra Umana [id number], [place] [address]Ynx: () Primary Insurance:MedicareP olicy Number: [id number] e Date:2024-08-09 Sandra Alvarez: [id number], [place] [address]Oxp: () [facility] 08/09/2024 [place] Insurance:[place]: [id number] Date:2024-08-09 Sandra Alvarez: [id number], [place] [address]Qdn: () [facility] 08/09/2024 Tertiary Insurance:Self PayPolicy Number: Effective Date:2024-08-09 [facility], [place] [address]Tlw: () Primary Insurance:MedicareP olicy Number: [id number] e Date:2024-05-28 Lyndsay Alvarez: [id number], [place] [address]Cop: (HP) [facility] 06/15/2024 Secondary Insurance:[place] Number: [id number] Date:2024-05-28 Lyndsay Alvarez: [id number], [place] [address]Ara: () [facility] 06/15/2024 Tertiary Insurance:Self PayPolicy Number: Effective Date:2024-06-01 [facility], [place] [address]Rtw: () Primary Insurance:MedicareP olicy Number: [id number] e Date:2024-05-07 Sandra Alvarez: [id number], [place] [address]Qey: (HP) [facility] 05/09/2024 Secondary Insurance:[place]Policy Number: [id number] Date:2024-05-07 Sandra Alvarez: [id number], [place] [address]Wiv: () [facility] 05/09/2024 Tertiary Insurance:Self PayPolicy Number: Effective Date:2024-05-07 NOT GIVENUNK [facility] 05/07/20[id number], [place] [address]Pdr: (HP) Primary Insurance:MedicareP olicy Number: [id number] e Date:2024-05-07 Sandra Alvarez: [id number], [place] [address]Yyu: (HP) [facility] 05/07/2024 Secondary Insurance:[place] Number: [id number] Date:2024-05-07 Sandra Alvarez: [id number], [place] [address]Daj: (HP) [facility] 05/07/2024 Tertiary Insurance:Self PayPolicy Number: Effective Date:2024-05-07 [facility]
--- OUTSIDE RECORDS SUMMARY | 2025-04-18 10:14 | XMS_ITS | Encounter Summary ---
Author Organization [employer] Address [facility] [id number] [address] [place] [address] Care Team Providers Care Cda Teacher Name Role Phone Robert Lopez DO Primary Care Provider [phone] Encounter Details Date Type Department Care Team (Late st Contact Info) Description 01/17/2019 Telephone [facility] [address] [address] Torrey Guevara RN Social History Tobacco Use Types Packs/Day Years Used Date Smoking Tobacco: Former Cigarettes Q uit: 11/08/1992 Smokeless Tobacco: Never Alcohol Use Standard Drinks/Week Comments No 0 (1 standard drink = 0.6 oz pur e alcohol) Comments No Sex and Gender Information Value Date Recorded Sex Assigned at Not on file Legal Sex Female 11:22 AM EDT Gender Identity Not on file Sexual Orientation Not on file documented as of this encounter Plan of Treatment Not on file documented as of this encounter Goals Goal Patient Goal Type Associated Problems Recent Progress Patient-Stated? Author discharge home General Yes Flora Vila, RN Note: Evaluation of progress towards goal: Pt reports she is independent with care but does have children that live near by to help if needed. Denies needs for home documented as of this encounter Visit Diagnoses Not on filedocumented in this encounter Care Teams Cda Teacher Relationship Specialty Start Date End Date Robert Lopez DO [address] [place] [address] PCP - General 01/19/13 documented as of this encounter
--- OUTSIDE RECORDS SUMMARY | 2025-04-18 10:14 | XMS_ITS | Encounter Summary ---
Author Organization [facility] Address [address] [facility] [place] [address] Care Team Providers Care Sales Superintendent Name Role Phone Robert Lopez DO Primary Care Provider [phone] Encounter Details Date Type Department Care Team (Late Contact Info) Description 04/15/2025 Bamboo flowsheet [facility] [address] [facility] [address] [place] [address] Jacqui Harper, JAMAL Social History Tobacco Use Types Packs/Day Years [...] as of this encounter Plan of Treatment Upcoming Encounters Date Type Department Care Team (Late Contact Info) Description 04/19/2025 10:30 AM EDT Treatment [facility] [address] [facility] [address] [place] [address] Jacqui Harper PT 04/07/2026 11:15 AM EDT Office Visit [facility] [address] [place] [address] Jr. Jovi Silva DO [address] [place] [address] documented as of this encounter Visit Diagnoses Not on filedocumented in this encounter Care Teams Sales Superintendent Relationship Specialty Start Date End Date Robert Lopez DO PCP - General Internal Medicine 04/03/24 documented as of this encounter
--- OUTSIDE RECORDS SUMMARY | 2025-04-18 10:14 | XMS_ITS | Encounter Summary ---
Author Organization [facility] Address [address] [place] [address] Care Team Providers Care Zigzag Topstitcher Name Role Phone Robert Lopez DO Primary Care Provider [phone] Encounter Details Date Type Department Care Team (Late Contact Info) Description 04/04/2025 Bamboo flowsheet [facility] [address] [facility] [address] [place] [address] Gabriel Loco, KODAK Social History Tobacco Use Types Packs/Day Years [...] Treatment [facility] [address] [facility] [address] [place] [address] Jacqui Harper, JAMAL 04/07/2026 11:15 AM EDT Office Visit [facility] [address] [place] [address] Jr. Jovi Silva, DO [address] [place] [address] documented as of this encounter Visit Diagnoses Not on filedocumented in this encounter Care Teams Zigzag Topstitcher Relationship Specialty Start Date End Date Robert Lopez DO PCP - General Internal Medicine 04/03/24 documented as of this encounter
--- OUTSIDE RECORDS SUMMARY | 2025-04-18 10:14 | XMS_ITS | Clinical Summary ---
Author Organization [facility] Address [id number] [address] [place] [address] Care Team Providers Care Link Fabric Machine Operator Name Role Phone Robert Lopez DO Primary Care Provider [phone] Allergies Active Allergy Reactions Criticality Noted Date Comments Adhesive Tape-Silicones Rash Low 03/08/2017 Celecoxib Itching 01/16/2017 Penicillins Itching 01/16/2017 Medications atorvastatin (LIPITOR) 20 mg tablet Take 20 mg by mouth once. Active levETIRAcetam (KEPPRA) 500 mg tablet Take 750 mg by mouth in the morning and 750 mg before bedtime. Active potassium chloride (K-DUR) 10 MEQ CR tablet Take 10 mEq by mouth once. 10/06/2015 Active furosemide (LASIX) 40 mg tablet Take 40 mg by mouth once. 09/08/2015 Active losartan (COZAAR) 25 mg tablet Take 50 mg by mouth once. Active IRON, FERROUS SULFATE, ORAL Take 324 mg by mouth once. Active alendronate (FOSAMAX) 70 mg tablet Take 70 mg by mouth once a week. 02/15/2021 Active ELIQUIS 5 mg tablet Take 5 mg by mouth 2 (two) times a day. 05/16/2022 Active Active Problems Problem Noted Date Diagnosed Date Iron deficiency anemia due to chronic blood loss 05/14/2022 History of pulmonary embolism 02/04/2020 Anticoagulation management encounter 02/04/2020 Anemia 03/08/2017 Hypertension 03/08/2017 Morbid (severe) obesity due to excess calories 0 04/29/2015 Thyroid lump 02/06/2015 Osteoporosis 01/30/2015 Morbid obesity Adrenal mass Lumbar stenosis with neurogenic claudication Spondylolisthesis at L4-L5 level HLD (hyperlipidemia) Sleep apnea Spinal stenosis Resolved Problems Problem Noted Date Diagnosed Date Resolved Date FPC (current) use of a nticoagulants [Z79.01] 01/19/2017 01/21/2017 Multiple pulmonary emboli 01/16/2017 Pulmonary embolism 04/03/2015 2 Family History Medical History Relation Name Comments Cancer Father Heart attack Father Stroke Maternal Grandmother Arthritis Mother Stroke Mother Diabetes Sister Hypertension Sister Relation Name Status Comments Father Maternal Grandmother Mother Sister Social History Tobacco Use Types Packs/Day Years Used Date Smoking Tobacco: Former Cigarettes Q uit: 11/08/1992 Smokeless Tobacco: Never Alcohol Use Standard Drinks/Week Comments No 0 (1 standard drink = 0.6 oz pur e alcohol) Childcare Answer Date Recorded Childcare Unknown 05/09/2019 Employment Answer Date Recorded Employment Unknown 05/09/2019 Purpose - Life Answer Date Recorded Purpose and direction in life Unknown Comments No Sex and Gender Information Value Date Recorded Sex Assigned at Not on file Legal Sex Female 11:22 AM EDT Gender Identity Not on file Sexual Orientation Not on file Last Filed Vital Signs Vital Sign Reading Time Taken Comments Blood Pressure 156/81 10/15/2022 2:22 PM EST Pulse 117 10/15/2022 2:22 PM EST Temperature 36.9 C (98.4 F) 10/15/2022 2:22 PM EST Respiratory Rate 20 10/15/2022 2:22 PM EST Oxygen Saturation 98% 10/15/2022 2:22 PM EST Inhaled Oxygen Concentration - - Weight 127 kg (280 lb) 10/15/2022 2:22 PM EST Height 152 cm (4' 11.84 ) 10/15/2022 2:22 PM EST Body Mass Index 54.97 10/15/2022 2:22 PM EST Plan of Treatment Health Maintenance Due Date Last Done Comments Depression Screening 1952 Tobacco Screening 1952 DTaP,Tdap and Td Vaccines (1 - Tdap) 1960 Fall Risk Screening 2006 Zoster (Shingles) Vaccine (2 of 3) 07/30/2011 06/04/2011 COVID-19 Vaccine (4 - 2023-2 5 season) 2024 10/05/2021, 02/11/2021, 01/21/2021 Influenza Vaccine 07/29/2025 10/13/2022, , 09/18/2018, Additional history exists Goals Goal Patient Goal Type Associated Problems Recent Progress Patient-Stated? Author discharge home General Yes Flora Vila, RN Note: Evaluation of progress towards goal: Pt reports she is independent with care but does have children that live near by to help if needed. Denies needs for home Medical Devices Not on file Insurance MEDICARE [facility] [place] [address] Advance Directives * Full Code (Latest Code Status on File) Date Activated Date Inactivated Comments 01/16/2017 4:15 PM 01/20/2017 6:55 PM Care Teams Link Fabric Machine Operator Relationship Specialty Start Date End Date Robert Lopez DO [address] [place] [address] PCP - General 01/19/13
--- OUTSIDE RECORDS SUMMARY | 2025-04-18 10:14 | XMS_ITS | Encounter Summary ---
Author Organization [facility] Address [address] [place] [address] Care Team Providers Care Medical Service Technician Name Role Phone Robert Lopez DO Primary Care Provider [phone] Encounter Details Date Type Department Care Team (Latest Contact Info) Description 04/04/2025 Travel Social History Tobacco Use Types Packs/Day Years [...] Treatment [facility] [address] [place] [place] [address] Jacqui Harper, PT 04/07/2026 11:15 AM EDT Office Visit [facility] [address] [place] [address] Jr. Jovi Silva DO [address] [place] [address] documented as of this encounter Visit Diagnoses Not on filedocumented in this encounter Care Teams Medical Service Technician Relationship Specialty Start Date End Date Robert Lopez DO PCP - General Internal Medicine 04/03/24 documented as of this encounter
--- OUTSIDE RECORDS SUMMARY | 2025-04-18 10:14 | XMS_ITS | Encounter Summary ---
Author Organization [employer] Address [facility] [place][id number] [address] [place] [address] Care Team Providers Care Chain Builder Name Role Phone Robert Lopez DO Primary Care Provider [phone] Encounter Details Date Type Department Care Team (Late st Contact Info) Description 05/18/2022 Orders Only [facility] [address] [place] [address] Heriberto Marroquin MD [address] [place] [address] [address] [place] [address] Social History Tobacco Use Types Packs/Day Years [...] on file Sexual Orientation Not on file COVID-19 Exposure Response Date Recorded In the last month, have you been in contact with someone who was confirmed or suspected to have Coronavirus / COVID-19? No / Unsure 05/17/2022 12:50 PM EDT documented as of this encounter Plan of Treatment Not on file documented as of this encounter Goals Goal Patient Goal Type Associated Problems Recent Progress Patient-Stated? Author discharge home General Yes Flora Vila RN Note: Evaluation of progress towards goal: Pt reports she is independent with care but does have children that live near by to help if needed. Denies needs for home documented as of this encounter Visit Diagnoses Not on filedocumented in this encounter Care Teams Chain Builder Relationship Specialty Start Date End Date Robert Lopez DO [address] [place] [address] PCP - General 01/19/13 documented as of this encounter
--- OUTSIDE RECORDS SUMMARY | 2025-04-18 10:14 | XMS_ITS | Clinical Summary ---
Author Organization [facility] Address [address] [place] [address] Care Team Providers Care Qc Chemist Name Role Phone Unavailable Primary Care Provider Unavailabl e Allergies Active Allergy Reactions Criticality Noted Date Comments Adhesive Tape (Rosins) Rash 04/03/2015 Celecoxib Swelling 01/16/2015 Penicillins Swelling 01/16/2015 Medications phenytoin SR (DILANTIN) 100 mg ER capsule Take by mouth three times daily. Total of 5 a day, two in the morning, two at supper, one at bedtime Active levETIRAcetam (KEPPRA) 500 mg tablet Take 500 mg by mouth twice daily. Active losartan (COZAAR) 25 mg tablet Take 50 mg by mouth once daily. Active IRON, FERROUS SULFATE, ORAL Take 324 mg by mouth. Active atorvastatin (LIPITOR) 20 mg tablet Take 20 mg by mouth once daily. Active furosemide (LASIX) 40 mg tablet Take 1 tablet by mouth twice daily. 09/08/2015 Active potassium chloride (K-TAB) 10 mEq tablet Take 1 tablet by mouth twice daily. 180 tablet 3 10/06/2015 Active CALCIUM ORAL Take by mouth once daily. Active metOLAzone (ZAROXOLYN) 5 mg tablet Take 1 tablet by mouth as needed (One Tablet in AM only for weight more than 250 pounds.). 90 tablet 3 04/27/2016 Active Active Problems Problem Noted Date Diagnosed Date Bilateral leg edema 07/08/2015 Delayed surgical wound healing 06/06/2015 Delayed wound healing 04/29/2015 Morbid obesity with BMI of 50.0-59.9, adult 12/2014 S/P laminectomy with spinal fusion 04/29/2015 Pulmonary embolism 04/03/2015 Adrenal mass 02/06/2015 Thyroid mass 02/06/2015 Thoracic compression fracture 01/30/2015 Osteoporosis 01/30/2015 Preoperative cardiovascular examination 01/21/20 15 Lumbar stenosis with neurogenic claudication Spondylolisthesis at L4-L5 level 01/16/2015 Anemia Bursitis HTN (hypertension) High cholesterol Sleep apnea CHF (congestive heart failure) BMI 45.0-49.9, adult Family History Medical History Relation Comments Cancer Father heart attack [Other] Father Stroke Maternal Grandfather Arthritis Mother Stroke Mother Diabetes Sister HTN [Other] Sister Relation Status Comments Father Maternal Grandfather Mother Sister Social History Tobacco Use Types Packs/Day Years Used Date Smoking Tobacco: Former Cigarettes 1 32 0 11/28/1959 - 11/28/1991 Comments:Quit 1991 Alcohol Use Standard Drinks/Week Comments No 0 (1 standard drink = 0.6 oz pur e alcohol) Comments No Sex and Gender Information Value Date Recorded Sex Assigned at Not on file Legal Sex Female 11:48 AM EST Gender Identity Not on file Sexual Orientation Not on file 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 file Not on file Not on file Last Filed Vital Signs Vital Sign Reading Time Taken Comments Blood Pressure 134/78 04/27/2016 9:34 AM EDT Pulse 68 04/27/2016 9:34 AM EDT Temperature 36.5 C (97.7 F) 04/27/2016 9:34 AM EDT Respiratory Rate 16 04/27/2016 9:34 AM EDT Oxygen Saturation 96% 04/27/2016 9:34 AM EDT Inhaled Oxygen Concentration - - Weight 114.7 kg (252 lb 12.8 oz) 04/27/2016 9:34 AM EDT Height 152.4 cm (5') 04/27/2016 9:34 AM EDT Body Mass Index 49.37 04/27/2016 9:34 AM EDT Plan of Treatment Health Maintenance Due Date Last Done Comments Anxiety Screening 1959 Depression Screening 1959 DTaP,Tdap,Td Vaccine (1 - Tdap) 1960 Diabetes Screening 1986 Pneumococcal Vaccine: 50+ (1 of 1 - PCV) 1991 Shingrix Vaccine (1 of 2) 1991 Bone Density Screening 2006 RSV Vaccine (1 - 1-dose 75+ series) 2016 Covid-19 Vaccine ( season) 2024 Advance Directive Discussion 11/28/2024 Influenza Vaccine (Season Ended) 2025 Insurance MEDICARE
--- OUTSIDE RECORDS SUMMARY | 2025-04-18 10:14 | XMS_ITS | Encounter Summary ---
Author Organization [facility] Address [facility] [id number] [address] [place] [address] Care Team Providers Care Materials Inspector Name Role Phone Robert Lopez DO Primary Care Provider [phone] Encounter Details Date Type Department Care Team (Late st Contact Info) Description 03/15/2017 Documentation [facility] [address] [place] [phone] Valorie Cruz RMA Social History Tobacco Use Types Packs/Day Years Used Date Smoking Tobacco: Former Cigarettes Alcohol Use Standard Drinks/Week Comments No 0 [...] on filedocumented in this encounter Care Teams Materials Inspector Relationship Specialty Start Date End Date Robert Lopez DO [address] [place] [address] PCP - General 01/19/13 documented as of this encounter
--- OUTSIDE RECORDS SUMMARY | 2025-04-18 10:14 | XMS_ITS | Encounter Summary ---
Author Organization [employer] Address [facility] [id number] [address] [place] [address] Care Team Providers Care City Councilman Name Role Phone Robert Lopez Primary Care Provider [phone] Encounter Details Date Type Department Care Team (Late st Contact Info) Description 07/31/2020 Telephone [facility] [address] [place] [phone] Torrey Guevara RN Social History Tobacco Use Types Packs/Day Years Used Date Smoking Tobacco: Former Cigarettes Q uit: 11/08/1992 Smokeless Tobacco: Never Alcohol Use Standard Drinks/Week Comments No 0 (1 standard drink = 0.6 oz pur e alcohol) Childcare Answer Date Recorded Childcare Unknown 05/09/2019 Employment Answer Date Recorded Employment Unknown 05/09/2019 Comments No Sex and Gender Information Value Date Recorded Sex Assigned at Not on file Legal Sex Female 11:22 AM EDT Gender Identity Not on file Sexual Orientation Not on file COVID-19 Exposure Response Date Recorded In the last month, have you been in contact with someone who was confirmed or suspected to have Coronavirus / COVID-19? No / Unsure 07/10/2020 1:03 PM EDT documented as of this encounter [...] on filedocumented in this encounter Care Teams City Councilman Relationship Specialty Start Date End Date Robert Lopez DO [facility] [place] [address] PCP - General 01/19/13 documented as of this encounter
--- OUTSIDE RECORDS SUMMARY | 2025-04-18 10:14 | XMS_ITS | Encounter Summary ---
Author Organization [facility] Address [address] [facility] [place] [address] Care Team Providers Care Photovoltaic Installer Name Role Phone Robert Lopez DO Primary Care Provider [phone] Encounter Details Date Type Department Care Team (Late Contact Info) Description 04/11/2025 Bamboo flowsheet [facility] [address] [facility] [address] [place] [address] Jacqui Harper, JAMAL Social History Tobacco Use [...] [facility] [address] [facility] [address] [place] [address] Jacqui Harper PT 04/07/2026 11:15 AM EDT Office Visit [facility] [address] [place] [address] Jr. Jovi Silva DO [address] [place] [address] documented as of this encounter Visit Diagnoses Not on filedocumented in this encounter Care Teams Photovoltaic Installer Relationship Specialty Start Date End Date Robert Lopez DO PCP - General Internal Medicine 04/03/24 documented as of this encounter
--- OUTSIDE RECORDS SUMMARY | 2025-04-18 10:14 | XMS_ITS | Encounter Summary ---
Author Organization [employer] tem Address [id number] [address] [place] [address] Care Team Providers Care Four Slide Machine Setter Name Role Phone Robert Lopez DO Primary Care Provider [phone] Encounter Details Date Type Department Care Team (Late st Contact Info) Description 04/07/2022 Abstract [facility] - Medical Oncology [address] [place] [address] Heriberto Marroquin MD [address] [place] [address] [address] [place] [address] Social History Tobacco Use Types Packs/Day Years [...] for home documented as of this encounter Procedures Procedure Name Priority Date/Time Associated Diagnosis Comments MULTIPLE LABS Routine 02/05/2022 documented in this encounter Results * Multiple labs (02/05/2022) 02/05/2022 us Not In System Ref Prov DC IMAGING Final Res ult documented in this encounter Visit Diagnoses Not on filedocumented in this encounter Care Teams Four Slide Machine Setter Relationship Specialty Start Date End Date Robert Lopez DO [address] [place] [address] PCP - General 01/19/13 documented as of this encounter
--- OUTSIDE RECORDS SUMMARY | 2025-04-18 10:14 | XMS_ITS | Encounter Summary ---
Author Organization [facility] Address [address] [facility] [address] [place] [address] Care Team Providers Care Petroleum Refinery Worker Name Role Phone Robert Lopez DO Primary Care Provider [phone] Encounter Details Date Type Department Care Team (Latest Contact Info) Description 04/15/2025 Travel Social History Tobacco Use Types Packs/Day [...] Treatment [facility] [address] [place] [place] [address] Jacqui Harper, PT 04/07/2026 11:15 AM EDT Office Visit [facility] [address] [place] [address] Jr. Jovi Silva DO [address] [place] [address] documented as of this encounter Visit Diagnoses Not on filedocumented in this encounter Care Teams Petroleum Refinery Worker Relationship Specialty Start Date End Date Robert Lopez DO PCP - General Internal Medicine 04/03/24 documented as of this encounter
--- OUTSIDE RECORDS SUMMARY | 2025-04-18 10:14 | XMS_ITS | Clinical Summary ---
Author Organization [facility] Healthcare Address [address] [place] [address] Care Team Providers Care Taxation Inspector Name Role Phone Robert Lopez DO Primary Care Provider [phone] Allergies Active Allergy Reactions Criticality Noted Date Comments Celecoxib Hives,Itching,Rash,S welling Low 01/16/2015 Penicillins Rash,Itching,Swellin g Low 01/16/2015 Pt. states PCN doesn't work for me, it just doesn't work Wound Dressing Adhesive Rash Low 10/31/2023 Medications ferrous sulfate ER 142 mg ER tablet Take 324 mg by mouth Active furosemide (Lasix) 40 MG tablet Take 40 mg by mouth in the morning. Active levETIRAcetam (Keppra) 500 MG tablet Take 500 mg by mouth in the morning and 500 mg before bedtime. Active losartan (Cozaar) 25 MG tablet Take 25 mg by mouth in the morning. Active potassium chloride ER (Micro-K) 10 MEQ ER capsule Take 10 mEq by mouth in the morning. 3 Active warfarin (Coumadin) 5 MG tablet Take 5 mg by mouth 1 (one) time each day 3 Active Witch Cally (Preparation H Totables Wipes) 50 % padsIndications: Hemorrhoids, unspecified hemorrhoid type Apply 1 Dose topically every 8 (eight) hours if needed (with loose stool to wipe gently) 10 each 3 3 Active Active Problems Problem Noted Date Diagnosed Date Bilateral posterior capsular opacification 04/03 Epiretinal membrane (ERM) of right eye 4 Dry eyes 04/03/2024 Blepharitis of upper and lower eyelids of both e yes 04/03/2024 Encounters Date Type Department Care Team Description 04/15/2025 9:30 AM EDT Treatment [facility] [address] [facility] [address] [place] [address] Jacqui Harper, PT Low back pain, unspecified back pain laterality, unspecified chronicity, unspecified whether sciatica present (Primary Dx) 04/15/2025 Bamboo flowsheet [facility] [address] [facility] [address] [place] [address] Jacqui Harper, PT 04/15/2025 Travel 04/11/2025 9:00 AM EDT Treatment [facility] [address] [facility] [address] [place] [address] Jacqui Harper, PT Low back pain, unspecified back pain laterality, unspecified chronicity, unspecified whether sciatica present (Primary Dx) 04/11/2025 Bamboo flowsheet [facility] [address] [facility] [address] [place] [address] Jacqui Harper, PT 04/11/2025 Travel 04/04/2025 2:30 PM EDT Treatment [facility] [address] [facility] [address] [place] [address] Gabriel Loco, PBX INSPECTOR Low back pain, unspecified back pain laterality, unspecified chronicity, unspecified whether sciatica present (Primary Dx) 04/04/2025 Bamboo flowsheet [facility] [address] [facility] [address] [place] [address] Gabriel Loco, PBX INSPECTOR 04/04/2025 Travel 04/01/2025 10:00 AM EDT Treatment [facility] [address] [facility] [address] [place] [address] Jacqui Harper, PT Low back pain, unspecified back pain laterality, unspecified chronicity, unspecified whether sciatica present (Primary Dx) 04/01/2025 Travel 04/01/2025 Plan of Care Documentation [facility] [address] [facility] [address] [place] [address] 03/21/2025 8:30 AM EDT Treatment [facility] [address] [facility] [address] [place] [address] Jacqui Harper, PT Low back pain, unspecified back pain laterality, unspecified chronicity, unspecified whether sciatica present (Primary Dx) 03/21/2025 Bamboo flowsheet [facility] [address] [facility] [address] [place] [address] Jacqui Harper, PT 03/21/2025 Travel 03/14/2025 1:30 PM EDT Treatment [facility] [address] [facility] [address] [place] [address] Jacqui Harper, PT Low back pain, unspecified back pain laterality, unspecified chronicity, unspecified whether sciatica present (Primary Dx) 03/14/2025 Bamboo flowsheet [facility] [address] [facility] [address] [place] [address] Jacqui Harper, PT 03/14/2025 Travel 02/28/2025 12:30 PM EDT Treatment [facility] [address] [facility] [address] [place] [address] Jacqui Harper, PT Low back pain, unspecified back pain laterality, unspecified chronicity, unspecified whether sciatica present (Primary Dx) 02/28/2025 Bamboo flowsheet [facility] [address] [facility] [address] [place] [address] Jacqui Harper, PT 02/28/2025 Travel 02/25/2025 12:00 PM EDT Treatment [facility] [address] [facility] [address] [place] [address] Carmen Pazissa, PBX INSPECTOR Low back pain, unspecified back pain laterality, unspecified chronicity, unspecified whether sciatica present (Primary Dx) 02/25/2025 Bamboo flowsheet [facility] [address] [facility] [address] [place] [address] Carmen Pazissa, PBX INSPECTOR 02/25/2025 Travel 02/20/2025 1:00 PM EDT Treatment [facility] [address] [facility] [address] [place] [address] Kelbley, Tierney, PBX INSPECTOR Low back pain, unspecified back pain laterality, unspecified chronicity, unspecified whether sciatica present (Primary Dx) 02/20/2025 Bamboo flowsheet [facility] [address] [facility] [address] [place] [address] Kelbley, Tierney, PBX INSPECTOR 02/20/2025 Travel 02/13/2025 1:00 PM EDT Treatment [facility] [address] [facility] [address] [place] [address] Claudy Gabriel, PBX INSPECTOR Low back pain, unspecified back pain laterality, unspecified chronicity, unspecified whether sciatica present (Primary Dx) 02/13/2025 Bamboo flowsheet [facility] [address] [facility] [address] [place] [address] Claudy Gabriel, PBX INSPECTOR 02/13/2025 Travel 02/07/2025 12:30 PM EDT Treatment [facility] [address] [facility] [address] [place] [address] Kelbley, Tierney, PBX INSPECTOR Low back pain, unspecified back pain laterality, unspecified chronicity, unspecified whether sciatica present (Primary Dx) 02/07/2025 Bamboo flowsheet [facility] [address] [facility] [address] [place] [address] Kelbley, Tierney, PBX INSPECTOR 02/07/2025 Travel 02/04/2025 12:00 PM EDT Treatment [facility] [address] [facility] [address] [place] [address] Kelbley, Tierney, PBX INSPECTOR Low back pain, unspecified back pain laterality, unspecified chronicity, unspecified whether sciatica present (Primary Dx) 02/04/2025 Bamboo flowsheet [facility] [address] [facility] [address] [place] [address] Kelbley, Tierney, PBX INSPECTOR 02/04/2025 Travel 01/28/2025 Telephone [facility] [address] [facility] [address] [place] [address] Jacqui Harper, PT Cx PT 01/28/25 01/23/2025 1:00 PM EST Treatment [facility] [address] [facility] [address] [place] [address] Jacqui Harper, PT Low back pain, unspecified back pain laterality, unspecified chronicity, unspecified whether sciatica present (Primary Dx) 01/23/2025 Bamboo flowsheet [facility] [address] [facility] [address] [place] [address] Jacqui Harper, PT 01/23/2025 Travel 01/21/2025 2:30 PM EST Treatment [facility] [address] [facility] [address] [place] [address] Gabriel Loco, PBX INSPECTOR Low back pain, unspecified back pain laterality, unspecified chronicity, unspecified whether sciatica present (Primary Dx) 01/21/2025 Bamboo flowsheet [facility] [address] [facility] [address] [place] [address] Gabriel Loco, PBX INSPECTOR 01/21/2025 Travel from Last 3 Months Social History Tobacco Use Types Packs/Day Years Used Date Smoking Tobacco: Former Cigarettes Smokeless Tobacco: Never Tobacco Cessation:Counseling Given: Not Answered Alcohol Use Standard Drinks/Week Comments Not Currently 0 (1 standard drink = 0.6 oz pur e alcohol) Comments No Sex and Gender Information Value Date Recorded Sex Assigned at Not on file Legal Sex Female 6:56 PM EDT Gender Identity Not on file Sexual Orientation Not on file Last Filed Vital Signs Vital Sign Reading Time Taken Comments Blood Pressure 130/90 07/15/2022 12:00 PM EDT Pulse - - Temperature - - Respiratory Rate - - Oxygen Saturation - - Inhaled Oxygen Concentration - - Weight 125 kg (275 lb) 10/31/2023 10:59 AM EST Height 152.4 cm (5') 07/15/2022 12:00 PM EDT Body Mass Index 53.71 07/15/2022 12:00 PM EDT Plan of Treatment Upcoming Encounters Date Type Department Care Team (Late st Contact Info) Description 04/19/2025 10:30 AM EDT Treatment [facility] [address] [place] [address] [place] [address] Jacqui Harper, PT 04/07/2026 11:15 AM EDT Office Visit [facility] [address] [place] [address] Jr. Jovi Silva, DO [address] [place] [address] Health Maintenance Due Date Last Done Comments Pneumococcal Vaccine: 65+ Ye ars (2 of 2 - PCV) 07/29/2018 07/29/2017 Influenza Vaccine Completed 08/06/2024, , 11/16/2019, Additional history exists Insurance MEDICARE [facility] [place] [id number] Care Teams Taxation Inspector Relationship Specialty Start Date End Date Robert Lopez DO PCP - General Internal Medicine 04/03/24
--- OUTSIDE RECORDS SUMMARY | 2025-04-18 10:14 | XMS_ITS | Encounter Summary ---
Author Organization [facility] Address [address] [place] [address] Care Team Providers Care Laser Beam Color Scanner Operator Name Role Phone Robert Lopez DO Primary Care Provider [phone] Encounter Details Date Type Department Care Team (Latest Contact Info) Description 04/11/2025 Travel Social History Tobacco Use Types Packs/Day [...] CI PT [address] [facility] [address] [place] [address] Jacqui Harper, PT 04/07/2026 11:15 AM EDT Office Visit [facility] [address] [place] [address] Jr. Jovi Silva DO [address] [place] [address] documented as of this encounter Visit Diagnoses Not on filedocumented in this encounter Care Teams Laser Beam Color Scanner Operator Relationship Specialty Start Date End Date Robert Lopez DO PCP - General Internal Medicine 04/03/24 documented as of this encounter
--- OUTSIDE RECORDS SUMMARY | 2025-04-18 10:14 | XMS_ITS | Patient Health Record ---
Author Organization [facility] [place] Address [address] [place] [address] Care Team Providers Care Home Energy Auditor Name Role Phone Robert Lopez DO Primary Care Provider Unavaila ble Reason For Referral No Information Medications Medication SIG (Take, Route, Frequency, Duration) Notes Start Date End Date Status hydroCHLOROthiazide 25 mg tablet DAILY Active [place] 325 mg-5 mg tablet Q6H Active Depakote Active Dilantin Active SM Iron tablet Active Pepcid Active potassium chloride Active senna PRN Active Problems Problem Type SNOMED Code ICD Code Onset Dates Problem Status W/U Status Risk Notes Problem 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 due to chronic peripheral venous hypertension (032024320238702) Chronic venous hypertension (idiopathic) with ulcer and inflammation of right lower extremity (I87.331) Active confirmed Problem Chronic ulcer of lower extremity (81106721) Non-pressure chronic ulcer of other part of right lower leg limited to breakdown of skin (L97.811) Active confirmed Problem Sleep apnea (93082222) Sleep apnea (G47.30) Active confirmed Problem Acquired lymphedema (69499253) Acquired lymphedema (I89.0) Active confirmed Problem Essential hypertension (52209127) BP (high blood pressure) (I10) Active confirmed Problem Hypercholesterolemia (99790035) Hypercholesterolemia (E78.00) Active confirmed Problem Chronic ulcer of left leg, with fat layer exposed (L97.922) Active confirmed Problem Non-pressure chr onic ulcer of right lower leg, limited to breakdown of skin (L97.911) Active confirmed Problem Chronic ulcer of left leg with fat layer exposed (L97.922) Active confirmed Plan Of Treatment No Information Insurance Providers Payer Name Payer Address Payer Phone Subscriber Number Group Number Insured Name Patient Relationship to Insured Coverage Start Date Coverage End Date [place] [address] [place] [address] [id number] Sandra Tavarez Self - patient is the insured 7 [employer] [place] [address] MEDICARE SUPP [facility] [place] [id number] [phone] [id number] PLAN F Sandra Tavarez Self - patient is the insured 1 Medical (General) History Surgical History Surgery Date(Month/Year) History of gallbladder surgery History of colon surgery History of knee surgery History of bladder surgery History of surgery of the left knee bilateral carpal tunnel surg meenu, trigger finger repair, rotator cuff repair, craniotomy, surger on femur Knee replacement History of ventral hernia repair Surgical / procedural history craniotomy History of rotator cuff repair History of arthroscopy of the knee History of decompression of median nerve at carpal tunnel Previous EGD procedure History of Colonoscopy History of laparoscopic cholecystectomy 03/05/2013- Dr. Daniel
[2025-04-18 10:38] LABS: Basophils Percent Auto 0.6 % (0.2-2.0); Eosinophils Absolute Auto 0.1 10^3/uL (0.0-0.7); Eosinophils Percent Auto 1.3 % (0.9-7.0); Hematocrit 41.2 % (36.0-48.0); Hemoglobin 13.3 g/dL (12.0-16.0); Immature Granulocytes Abs Auto 0.03 10^3/uL (0.00-0.03); Immature Granulocytes Pct Auto 0.6 % (0.0-0.5); Lymphocytes Absolute Auto 0.7 10^3/uL (1.2-3.8); Lymphocytes Percent Auto 13.5 % (20.5-60.0); Mean Corpuscular HGB Conc 32.3 g/dL (29.9-35.2); Mean Corpuscular Hemoglobin 29.2 pg (26.7-34.0); Mean Corpuscular Volume 90.5 fL (81.0-99.0); Mean Platelet Volume 10.2 fL (9.5-13.5); Monocytes Absolute Auto 0.5 10^3/uL (0.3-0.8); Monocytes Percent Auto 8.3 % (1.7-12.0); Neutrophils Absolute Auto 4.1 10^3/uL (1.4-6.5); Neutrophils Percent Auto 75.7 % (43.0-75.0); Platelet Count 194 10^3/uL (150-450); Red Blood Count 4.55 10^6/uL (4.20-5.40); Red Cell Distribution Width 14.6 % (11.0-15.0); White Blood Count 5.4 10^3/uL (4.0-11.0)
[2025-04-18 11:10] LABS: Estimated Average Glucose 154 mg/dL
[2025-04-18 11:10] LABS: Creatinine Urine Random 49.06 mg/dL (20.00-300.00); Microalbum Creatinine Ratio Ur 44.8 mg/g (0.0-29.9); Microalbumin Urine Random 2.2 mg/dL (<=30.0)
[2025-04-18 11:20] LABS: Alanine Aminotransferase 25 U/L (14-59); Albumin Level 3.5 g/dL (3.4-5.0); Alkaline Phosphatase 103 U/L (46-116); Anion Gap 12.5; Aspartate Amino Transferase 16 U/L (15-37); Bilirubin Total 0.9 mg/dL (0.2-1.0); Calcium 9.6 mg/dL (8.5-10.1); Carbon Dioxide 30.8 mmol/L (21.0-32.0); Chloride 103 mmol/L (98-107); Chol HDL Ratio 1.8; Cholesterol 140 mg/dL (<=200); Estimated GFR (African America >60 (>=60 mL/min/1.73m^2); Estimated GFR (Non-African Ame >60 (>=60 mL/min/1.73m^2); Globulin 3.5 g/dL; Glucose 123 mg/dL (74-106); HDL Cholesterol 78 mg/dL (40-60); Potassium 4.3 mmol/L (3.5-5.1); Sodium 142 mmol/L (136-145); Thyroid Stimulating Hormone 0.678 uIU/mL (0.358-3.740); Triglycerides 50 mg/dL (<=150)
== END 2025-04-18 10:09 | disposition home or self-care (01) ==
LOC: LAB 10:11
PROVIDERS: PCP Internal Medicine; Visit Provider Internal Medicine
DX: E11.65 Type 2 diabetes mellitus with hyperglycemia (principal); D68.59 Other primary thrombophilia; E78.00 Pure hypercholesterolemia, unspecified; I10 Essential (primary) hypertension; R53.83 Other fatigue; D64.9 Anemia, unspecified; Z51.81 Encounter for therapeutic drug level monitoring; Z79.01 Long term (current) use of anticoagulants
CPT/HCPCS: 36415; 80053; 80061; 82043; 82570; 83036; 84443; 85025; 85610

== ENCOUNTER 2025-04-28 08:13 | Outpatient (RCR) | payer MEDICARE, OTHER, SELFPAY | END 2025-05-23 14:59 | disposition home or self-care (01) | LOC: MM 08:13 | PROVIDERS: PCP Internal Medicine; Visit Provider Internal Medicine | DX: Z51.81 Encounter for therapeutic drug level monitoring (principal); Z79.01 Long term (current) use of anticoagulants; I82.509 Chronic embolism and thrombosis of unspecified deep veins of unspecified lower extremity | CPT/HCPCS: 85610; G0463 ==

== ENCOUNTER 2025-05-28 02:40 | Outpatient (RCR) | payer MEDICARE, OTHER, SELFPAY | END 2025-06-27 16:41 | disposition home or self-care (01) | LOC: MM 02:40 | PROVIDERS: PCP Internal Medicine; Visit Provider Internal Medicine | DX: Z51.81 Encounter for therapeutic drug level monitoring (principal); Z79.01 Long term (current) use of anticoagulants | CPT/HCPCS: 85610; G0463 ==

== ENCOUNTER 2025-06-20 15:43 | Outpatient (OUT) | payer MEDICARE, OTHER, SELFPAY ==
--- OUTSIDE RECORDS SUMMARY | 2025-06-20 15:46 | XMS_ITS | Clinical Summary ---
Author Organization [facility] Address [address] [place], [place] [address] Care Team Providers Care Occupational Health Physiotherapist Name Role Phone Unavailable Primary Care Provider [...] 2024 Advance Directive Discussion 11/28/2024 Influenza Vaccine (#1) 2025 Insurance MEDICARE
--- OUTSIDE RECORDS SUMMARY | 2025-06-20 15:46 | XMS_ITS | Encounter Summary ---
Author Organization [facility] Address [id number] [address] [place] [address] Care Team Providers Care Project Executive Name Role Phone Robert Lopez Primary Care Provider [phone] Encounter Details Date Type Department Care Team (Late st Contact Info) Description 07/31/2020 Telephone [facility] [address] [place] [address] Torrey Guevara RN Social History Tobacco Use [...] on filedocumented in this encounter Care Teams Project Executive Relationship Specialty Start Date End Date Robert Lopez DO [facility] [place] [address] PCP - General 01/19/13 documented as of this encounter
--- OUTSIDE RECORDS SUMMARY | 2025-06-20 15:46 | XMS_ITS | Clinical Summary ---
Author Organization [employer] [facility] Address [id number] [address] [place] [address] Care Team Providers Care Terrazzo Tile Maker Name Role Phone Robert Lopez DO Primary Care Provider Allergies Active Allergy Reactions Criticality Noted Date [...] Problem Noted Date Diagnosed Date Resolved Date custodial (current) use of a nticoagulants [Z79.01] 01/19/2017 [...] Progress Patient-Stated? Author discharge home General Yes Flroa Vila, RN Note: Evaluation of progress towards goal: Pt reports she is independent with care but does have children that live near by to help if needed. Denies needs for home Medical Devices Not on file Insurance MEDICARE [facility] [place] [address] Advance Directives * Full Code (Latest Code Status on File) Date Activated Date Inactivated Comments 01/16/2017 4:15 PM 01/20/2017 6:55 PM Care Teams Terrazzo Tile Maker Relationship Specialty Start Date End Date Robert Lopez DO [address] [place] [address] PCP - General 01/19/13
--- OUTSIDE RECORDS SUMMARY | 2025-06-20 15:46 | XMS_ITS | Clinical Summary ---
Author Organization [facility] Healthcare Address [address] [place] [address] Care Team Providers Care Life Enrichment Assistant Name Role Phone Robert Lopez DO Primary Care Provider [phone] Allergies Active Allergy Reactions Criticality Noted Date [...] Encounters Date Type Department Care Team Description 05/09/2025 10:30 AM EDT Treatment [facility] [address] [facility] [address] [place] [address] Jacqui Harper, PT Low back pain, unspecified back pain laterality, unspecified chronicity, unspecified whether sciatica present (Primary Dx) 05/09/2025 Bamboo flowsheet [facility] [address] [facility] [address] [place] [address] Jacqui Harper, PT 05/09/2025 Travel 05/07/2025 12:30 PM EDT Treatment [facility] [address] [facility] [address] [place] [address] Gabriel Loco, GROUP COUNSELOR Low back pain, unspecified back pain laterality, unspecified chronicity, unspecified whether sciatica present (Primary Dx) 05/07/2025 Bamboo flowsheet [facility] [address] [facility] [address] [place] [address] Gabriel Loco, GROUP COUNSELOR 05/07/2025 Travel 05/03/2025 9:00 AM EDT Treatment [facility] [address] [facility] [address] [place] [address] Jacqui Harper, PT Low back pain, unspecified back pain laterality, unspecified chronicity, unspecified whether sciatica present (Primary Dx) 05/03/2025 Bamboo flowsheet [facility] [address] [facility] [address] [place] [address] Jacqui Harper, PT 05/03/2025 Travel 04/30/2025 9:00 AM EDT Treatment [facility] [address] [facility] [address] [place] [address] Gabriel Loco, GROUP COUNSELOR Low back pain, unspecified back pain laterality, unspecified chronicity, unspecified whether sciatica present (Primary Dx) 04/30/2025 Bamboo flowsheet [facility] [address] [facility] [address] [place] [address] Gabriel Looc, GROUP COUNSELOR 04/30/2025 Travel 04/26/2025 9:00 AM EDT Treatment [facility] [address] [facility] [address] [place] [address] Gabriel Loco, GROUP COUNSELOR Low back pain, unspecified back pain laterality, unspecified chronicity, unspecified whether sciatica present (Primary Dx) 04/26/2025 Bamboo flowsheet [facility] [address] [facility] [address] [place] [address] Gabriel Loco, GROUP COUNSELOR 04/26/2025 Travel 04/23/2025 4:30 PM EDT Treatment [facility] [address] [facility] [address] [place] [address] Gabriel Loco, GROUP COUNSELOR Low back pain, unspecified back pain laterality, unspecified chronicity, unspecified whether sciatica present (Primary Dx) 04/23/2025 Bamboo flowsheet [facility] [address] [facility] [address] [place] [address] Gabriel Loco, GROUP COUNSELOR 04/23/2025 Travel 04/19/2025 10:30 AM EDT Treatment [facility] [address] [facility] [address] [place] [address] Jacqui Harper, PT Low back pain, unspecified back pain laterality, unspecified chronicity, unspecified whether sciatica present (Primary Dx) 04/19/2025 Bamboo flowsheet [facility] [address] [facility] [address] [place] [address] Jacqui Harper, PT 04/19/2025 Travel 04/15/2025 9:30 AM EDT Treatment [facility] [address] [facility] [address] [place] [address] Jacqui Harper, PT Low back pain, unspecified back pain laterality, unspecified chronicity, unspecified whether sciatica present (Primary Dx) 04/15/2025 Bamboo flowsheet [facility] [address] [facility] [address] [place] [address] Jacqui Harper, PT 04/15/2025 Travel 04/11/2025 9:00 AM EDT Treatment [facility] [address] [facility] [address] [place] [address] Jacqui Harper, PT Low back pain, unspecified back pain laterality, unspecified chronicity, unspecified whether sciatica present (Primary Dx) 04/11/2025 Bamboo flowsheet [facility] [address] [facility] [address] [place] [address] Jacqui Harper, PT 04/11/2025 Travel 04/04/2025 2:30 PM EDT Treatment [facility] [address] [facility] [address] [place] [address] Gabriel Looc, GROUP COUNSELOR Low back pain, unspecified back pain laterality, unspecified chronicity, unspecified whether sciatica present (Primary Dx) 04/04/2025 Bamboo flowsheet [facility] [address] [facility] [address] [place] [address] Gabriel Loco, GROUP COUNSELOR 04/04/2025 Travel 04/01/2025 10:00 AM EDT Treatment [facility] [address] [facility] [address] [place] [address] Jacqui Harper, PT Low back pain, unspecified back pain laterality, unspecified chronicity, unspecified whether sciatica present (Primary Dx) 04/01/2025 Travel 04/01/2025 Plan of Care Documentation [facility] [address] [facility] [address] [place] [address] 03/21/2025 8:30 AM EDT Treatment [facility] [address] [facility] [address] [place] [address] Jacqui Harper, PT Low back pain, unspecified back pain laterality, unspecified chronicity, unspecified whether sciatica present (Primary Dx) 03/21/2025 Bamboo flowsheet [facility] [address] [facility] [address] [place] [address] Jacqui Harper, PT 03/21/2025 Travel from Last 3 Months Social History [...] Care Team (Late st Contact Info) Description 04/07/2026 11:15 AM EDT Office Visit [facility] [address] [place] [address] Jr. Jovi Silva C, DO [address] [place] [address] Health Maintenance Due Date Last Done Comments Pneumococcal Vaccine: 65+ Ye ars (2 of 2 - PCV) 07/29/2018 07/29/2017 Influenza Vaccine (#1) 2025 4, 10/13/2022, 11/16/2019, Additional history exists Insurance MEDICARE [facility] [place] [address] Care Teams Life Enrichment Assistant Relationship Specialty Start Date End Date Robert Lopez DO PCP - General Internal Medicine 04/03/24
--- OUTSIDE RECORDS SUMMARY | 2025-06-20 15:46 | XMS_ITS | Patient Health Record ---
Author Organization [facility] [place] Address [address] [place] [address] Care Team Providers Care Manufacturing Technology Professor Name Role Phone Robert Lopez DO Primary Care Provider Unavaila ble Reason For Referral No Information Medications Medication SIG (Take, Route, Frequency, Duration) Notes Start Date End Date Status hydroCHLOROthiazide 25 mg tablet DAILY Active [place] 325 mg-5 mg tablet Q6H Active Depakote Active Dilantin Active SM Iron tablet Active Pepcid Active potassium chloride Active senna PRN Active Problems Problem Type SNOMED Code ICD Code Onset Dates Problem Status W/U Status Risk Notes Problem 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 due to chronic peripheral venous hypertension (710964644038506) Chronic venous hypertension (idiopathic) with ulcer and inflammation of right lower extremity (I87.331) Active confirmed Problem Chronic ulcer of lower extremity (10257985) Non-pressure chronic ulcer of other part of right lower leg limited to breakdown of skin (L97.811) Active confirmed Problem Sleep apnea (68586659) Sleep apnea (G47.30) Active confirmed Problem Acquired lymphedema (97343080) Acquired lymphedema (I89.0) Active confirmed Problem Essential hypertension (24320908) BP (high blood pressure) (I10) Active confirmed Problem Hypercholesterolemia (60559762) Hypercholesterolemia (E78.00) Active confirmed Problem Chronic ulcer [...] End Date [place] [address] [place] [address] [id number] Sandra Tavarez Self - patient is the insured 7 [employer] [address] [address] MEDICARE SUPP [facility] [place]PT [place] [id number] PLAN F Sandra Tavarez Self - patient is the insured 1 Medical (General) History Surgical History Surgery Date(Month/Year) History of laparoscopic cholecystectomy 03/05/2013- Dr. Daniel History of Colonoscopy Previous EGD procedure History of decompression of median nerve at carpal tunnel History of arthroscopy of the knee History of rotator cuff repair Surgical / procedural history craniotomy History of ventral hernia repair Knee replacement bilateral carpal tunnel surg meenu, trigger finger repair, rotator cuff repair, craniotomy, surger on femur History of surgery of the left knee History of bladder surgery History of knee surgery History of colon surgery History of gallbladder surgery
--- OUTSIDE RECORDS SUMMARY | 2025-06-20 15:46 | XMS_ITS | Encounter Summary ---
Author Organization [employer] tem Address [facility] [place]-[id number] [address] [place] [address] Care Team Providers Care Manager Php Name Role Phone Robert Lopez DO Primary Care Provider [phone] Encounter Details Date Type Department Care Team (Late st Contact Info) Description 01/17/2019 Telephone [facility] [address] [place] [address] [address] Torrey Guevara RN Social History [...] on filedocumented in this encounter Care Teams Manager Php Relationship Specialty Start Date End Date Robert Lopez DO [address] [place] [address] PCP - General 01/19/13 documented as of this encounter
--- OUTSIDE RECORDS SUMMARY | 2025-06-20 15:46 | XMS_ITS | Encounter Summary ---
Author Organization [facility] Address [facility] [place]-[id number] [address] [place] [address] Care Team Providers Care Gerontology Aide Name Role Phone Robert Lopez DO Primary Care Provider [phone] Encounter Details Date Type Department Care Team (Late st Contact Info) Description 03/15/2017 Documentation [facility] [address] [place] [address] Valorie Cruz RMA Social History Tobacco Use [...] on filedocumented in this encounter Care Teams Gerontology Aide Relationship Specialty Start Date End Date Robert Lopez DO [address] [place] [address] PCP - General 01/19/13 documented as of this encounter
--- OUTSIDE RECORDS SUMMARY | 2025-06-20 15:47 | XMS_ITS | Encounter Summary ---
Author Organization [employer] tem Address [facility] [id number] [address] [place] [address] Care Team Providers Care Final Assembly Inspector Name Role Phone Robert Lopez DO Primary Care Provider [phone] Encounter Details Date Type Department Care Team (Late st Contact Info) Description 04/07/2022 Abstract [facility] - Medical Oncology [address] [place] [address] Heriberto Marroquin MD [address] [place] [address] [address] [place] [address] Social History Tobacco Use Types Packs/Day Years [...] 02/05/2022 us Not In System Ref Prov [place] IMAGING Final Res ult documented in this encounter Visit Diagnoses Not on filedocumented in this encounter Care Teams Final Assembly Inspector Relationship Specialty Start Date End Date Robert Lopez DO [address] [place] [address] PCP - General 01/19/13 documented as of this encounter
--- OUTSIDE RECORDS SUMMARY | 2025-06-20 15:47 | XMS_ITS | Encounter Summary ---
Author Organization [employer] [facility] tem Address [facility] [place]-[id number] [address] [place] [address] Care Team Providers Care Embedded Nurse Name Role Phone Robert Lopez DO Primary Care Provider Encounter Details Date Type Department Care Team (Late st Contact Info) Description 05/18/2022 Orders Only [facility] [address] [place] [address] Heriberto Marroquin MD [address] [place] [address] [address] [place] [address] Social History Tobacco Use Types Packs/Day [...] on filedocumented in this encounter Care Teams Embedded Nurse Relationship Specialty Start Date End Date Robert Lopez DO [address] [place] [address] PCP - General 01/19/13 documented as of this encounter
== END 2025-06-20 15:44 | disposition home or self-care (01) ==
LOC: WC 15:43
PROVIDERS: PCP Internal Medicine; Visit Provider Podiatrist Foot & Ankle Surgery
DX: I87.311 Chronic venous hypertension (idiopathic) with ulcer of right lower extremity (principal); L97.812 Non-pressure chronic ulcer of other part of right lower leg with fat layer exposed
CPT/HCPCS: G0463

== ENCOUNTER 2025-06-28 00:39 | Outpatient (RCR) | payer MEDICARE, OTHER, SELFPAY | END 2025-07-25 12:58 | disposition home or self-care (01) | LOC: MM 00:39 | PROVIDERS: PCP Internal Medicine; Visit Provider Internal Medicine | DX: Z51.81 Encounter for therapeutic drug level monitoring (principal); Z79.01 Long term (current) use of anticoagulants | CPT/HCPCS: 85610; G0463 ==

== ENCOUNTER 2025-07-03 09:56 | Outpatient (OUT) | payer MEDICARE, OTHER, SELFPAY ==
--- OUTSIDE RECORDS SUMMARY | 2025-07-03 10:00 | XMS_ITS | Clinical Summary ---
Author Organization [employer] s tem Address [facility] [place]-[id number] [address] [place] [address] Care Team Providers Care Solution Strategist Name Role Phone Robert Lopez DO Primary Care Provider [phone] Allergies Active Allergy Reactions Criticality Noted Date [...] Problem Noted Date Diagnosed Date Resolved Date terminal operations manager (current) use of a nticoagulants [Z79.01] 01/19/2017 [...] Medical Devices Not on file Insurance MEDICARE [facility] [place] [address] Advance Directives * Full Code (Latest Code Status on File) Date Activated Date Inactivated Comments 01/16/2017 4:15 PM 01/20/2017 6:55 PM Care Teams Solution Strategist Relationship Specialty Start Date End Date Robert Lopez DO [address] [place] [address] PCP - General 01/19/13
--- OUTSIDE RECORDS SUMMARY | 2025-07-03 10:00 | XMS_ITS | Clinical Summary ---
Author Organization [facility] Address [address] [place], [place] [address] Care Team Providers Care Behavioral Health Consultant Name Role Phone Unavailable Primary Care Provider [...] Vaccine (1 - 1-dose 75+ series) 2016 Advance Directive Discussion 11/28/2024 Influenza Vaccine (#1) 2025 Insurance MEDICARE
--- OUTSIDE RECORDS SUMMARY | 2025-07-03 10:00 | XMS_ITS | Encounter Summary ---
Author Organization [employer] s tem Address [facility] [place][id number] [address] [place] [address] Care Team Providers Care Conveyor Monitor Name Role Phone Robert Lopez DO Primary Care Provider [phone] Encounter Details Date Type Department Care Team (Late st Contact Info) Description 05/18/2022 Orders Only [facility] [address] [place] [address] Heriberto Marroquin MD [address] [place] [address] [address] [place] [address] Social History Tobacco Use Types Packs/Day [...] on filedocumented in this encounter Care Teams Conveyor Monitor Relationship Specialty Start Date End Date Robert Lopez DO [address] [place] [address] PCP - General 01/19/13 documented as of this encounter
--- OUTSIDE RECORDS SUMMARY | 2025-07-03 10:00 | XMS_ITS | Encounter Summary ---
Author Organization [employer] tem Address [facility] [place][id number] [address] [place] [address] Care Team Providers Care Soap Worker Name Role Phone Robert Lopez DO Primary Care Provider [phone] Encounter Details Date Type Department Care Team (Late st Contact Info) Description 04/07/2022 Abstract [facility] - Medical Oncology [address] [place] [address] Heriberto Marroquin MD [address] [place] [address] [place] [address] Social History Tobacco Use Types Packs/Day Years [...] 02/05/2022 us Not In System Ref Prov [place] IMAGING Final Res ult documented in this encounter Visit Diagnoses Not on filedocumented in this encounter Care Teams Soap Worker Relationship Specialty Start Date End Date Robert Lopez DO [address] [place] [address] PCP - General 01/19/13 documented as of this encounter
--- OUTSIDE RECORDS SUMMARY | 2025-07-03 10:00 | XMS_ITS | Encounter Summary ---
Author Organization [employer] tem Address [facility] [place]-[id number] [address] [place] [address] Care Team Providers Care Chemical Checker Name Role Phone Robert Lopez Primary Care Provider [phone] Encounter Details Date Type Department Care Team (Late st Contact Info) Description 07/31/2020 Telephone [facility] [address] [place] [phone] Torrey Guevara RN Social History Tobacco Use [...] on filedocumented in this encounter Care Teams Chemical Checker Relationship Specialty Start Date End Date Robert Lopez DO [facility] [place] [address] PCP - General 01/19/13 documented as of this encounter
--- OUTSIDE RECORDS SUMMARY | 2025-07-03 10:00 | XMS_ITS | Encounter Summary ---
Author Organization [facility] Address [facility] [place]-[id number] [address] [place] [address] Care Team Providers Care Manager Software Name Role Phone Robert Lopez DO Primary Care Provider [phone] Encounter Details Date Type Department Care Team (Late st Contact Info) Description 03/15/2017 Documentation [facility] [address] [place] [address] Valorie Cruz RMA Social History Tobacco Use [...] filedocumented in this encounter Care Teams Manager Software Relationship Specialty Start Date End Date Robert Lopez DO [address] [place] [address] PCP - General 01/19/13 documented as of this encounter
--- OUTSIDE RECORDS SUMMARY | 2025-07-03 10:00 | XMS_ITS | Patient Health Record ---
Author Organization [facility] [place] Address [address] [place] [address] Care Team Providers Care Clerical Car Checker Name Role Phone Robert Lopez DO Primary Care Provider Unavaila ble Reason For Referral No Information Medications Medication SIG (Take, Route, Frequency, Duration) Notes Start Date End Date Status hydroCHLOROthiazide 25 mg tablet DAILY Active Sullivan 325 mg-5 mg tablet Q6H Active Depakote Active Dilantin Active SM Iron tablet Active Pepcid Active potassium chloride Active senna PRN Active Problems Problem Type SNOMED Code ICD Code Onset Dates Problem Status W/U Status Risk Notes Problem 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 due to chronic peripheral venous hypertension (751449356611987) Chronic venous hypertension (idiopathic) with ulcer and inflammation of right lower extremity (I87.331) Active confirmed Problem Chronic ulcer of lower extremity (57191186) Non-pressure chronic ulcer of other part of right lower leg limited to breakdown of skin (L97.811) Active confirmed Problem Sleep apnea (54644094) Sleep apnea (G47.30) Active confirmed Problem Acquired lymphedema (61985718) Acquired lymphedema (I89.0) Active confirmed Problem Essential hypertension (35360888) BP (high blood pressure) (I10) Active confirmed Problem Hypercholesterolemia (68286233) Hypercholesterolemia (E78.00) Active confirmed Problem Chronic ulcer [...] End Date MEDICARE [place] [address] [place] [address] [id number] Sandra Tavarez Self - patient is the insured [address] [employer] [address] MEDICARE SUPP [facility] DEPT [place] [id number] [phone] [id number] PLAN F Sandra Tavarez Self - patient [...]
--- OUTSIDE RECORDS SUMMARY | 2025-07-03 10:00 | XMS_ITS | Clinical Summary ---
Author Organization [facility] Address [address] [place] [address] Care Team Providers Care Lunchroom Operator Name Role Phone Robert Lopez DO Primary Care Provider [phone] Allergies Active Allergy Reactions Criticality Noted Date [...] Description 05/09/2025 10:30 AM EDT Treatment [facility] [address] [facility] [address] [place] [address] Jacqui Harper, PT Low back pain, unspecified back pain laterality, unspecified chronicity, unspecified whether sciatica present (Primary Dx) 05/09/2025 Bamboo flowsheet [facility] [address] [facility] [address] [place] [address] Jacqui Harper, PT 05/09/2025 Travel 05/07/2025 12:30 PM EDT Treatment [facility] [address] [facility] [address] [place] [address] Gabriel Loco, DIRECTOR ON AIR Low back pain, unspecified back pain laterality, unspecified chronicity, unspecified whether sciatica present (Primary Dx) 05/07/2025 Bamboo flowsheet [facility] [address] [facility] [address] [place] [address] Gabriel Loco, DIRECTOR ON AIR 05/07/2025 Travel 05/03/2025 9:00 AM EDT Treatment [facility] [address] [facility] [address] [place] [address] Jacqui Harper, PT Low back pain, unspecified back pain laterality, unspecified chronicity, unspecified whether sciatica present (Primary Dx) 05/03/2025 Bamboo flowsheet [facility] [address] [facility] [address] [place] [address] Jacqui Harper, PT 05/03/2025 Travel 04/30/2025 9:00 AM EDT Treatment [facility] [address] [facility] [address] [place] [address] Gabriel Loco, DIRECTOR ON AIR Low back pain, unspecified back pain laterality, unspecified chronicity, unspecified whether sciatica present (Primary Dx) 04/30/2025 Bamboo flowsheet [facility] [address] [facility] [address] [place] [address] ClaudyGabriel, DIRECTOR ON AIR 04/30/2025 Travel 04/26/2025 9:00 AM EDT Treatment [facility] [address] [facility] [address] [place] [address] ClaudyOvidioGabriel, DIRECTOR ON AIR Low back pain, unspecified back pain laterality, unspecified chronicity, unspecified whether sciatica present (Primary Dx) 04/26/2025 Bamboo flowsheet [facility] [address] [facility] [address] [place] [address] ClaudyOvidioGabriel, DIRECTOR ON AIR 04/26/2025 Travel 04/23/2025 4:30 PM EDT Treatment [facility] [address] [facility] [address] [place] [address] ClaudyOvidioGabriel, DIRECTOR ON AIR Low back pain, unspecified back pain laterality, unspecified chronicity, unspecified whether sciatica present (Primary Dx) 04/23/2025 Bamboo flowsheet [facility] [address] [facility] [address] [place] [address] ClaudyOvidioGabriel, DIRECTOR ON AIR 04/23/2025 Travel 04/19/2025 10:30 AM EDT Treatment [facility] [address] [facility] [address] [place] [address] Jacqui Harper, PT Low back pain, unspecified back pain laterality, unspecified chronicity, unspecified whether sciatica present (Primary Dx) 04/19/2025 Bamboo flowsheet [facility] [address] [facility] [address] [place] [address] Jacqui Harper, PT 04/19/2025 Travel 04/15/2025 9:30 AM EDT Treatment [facility] [address] [facility] [address] [place] [address] Fabiola Harpera, PT Low back pain, unspecified back pain laterality, unspecified chronicity, unspecified whether sciatica present (Primary Dx) 04/15/2025 Bamboo flowsheet [facility] [address] [facility] [address] [place] [address] Jacqui Harper, PT 04/15/2025 Travel 04/11/2025 9:00 AM EDT Treatment [facility] [address] [facility] [address] [place] [address] Jacqui Harper, PT Low back pain, unspecified back pain laterality, unspecified chronicity, unspecified whether sciatica present (Primary Dx) 04/11/2025 Bamboo flowsheet [facility] [address] [facility] [address] [place] [address] Jacqui Harper, PT 04/11/2025 Travel 04/04/2025 2:30 PM EDT Treatment [facility] [address] [facility] [address] [place] [address] Gabriel Loco, DIRECTOR ON AIR Low back pain, unspecified back pain laterality, unspecified chronicity, unspecified whether sciatica present (Primary Dx) 04/04/2025 Bamboo flowsheet [facility] [address] [facility] [address] [place] [address] Gabriel Loco, KODAK 04/04/2025 Travel from Last 3 Months Social History [...] Description 04/07/2026 11:15 AM EDT Office Visit [facility] [address] [place] [address] Jr. Jovi Silva DO [address] [place] [id number] Health Maintenance Due Date Last Done Comments Pneumococcal Vaccine: 65+ Ye ars (2 of 2 - PCV) 07/29/2018 07/29/2017 Influenza Vaccine (#1) 2025 4, 10/13/2022, 11/16/2019, Additional history exists Insurance MEDICARE [facility] [place], [place] [id number] Care Teams Lunchroom Operator Relationship Specialty Start Date End Date Robert Lopze DO PCP - General Internal Medicine 04/03/24
--- OUTSIDE RECORDS SUMMARY | 2025-07-03 10:00 | XMS_ITS | Encounter Summary ---
Author Organization [employer] Sys tem Address [facility] [place][id number] [address] [place] [address] Care Team Providers Care Survey Compiler Name Role Phone Robert Lopez DO Primary Care Provider [phone] Encounter Details Date Type Department Care Team (Late st Contact Info) Description 01/17/2019 Telephone [facility] [address] [place] [address] [address] Torrey Guevara RN Social History [...] on filedocumented in this encounter Care Teams Survey Compiler Relationship Specialty Start Date End Date Robert Lopez DO [address] [place] [address] PCP - General 01/19/13 documented as of this encounter
== END 2025-07-03 09:57 | disposition home or self-care (01) ==
LOC: WC 09:56
PROVIDERS: PCP Internal Medicine; Visit Provider Physician Assistant
DX: I87.311 Chronic venous hypertension (idiopathic) with ulcer of right lower extremity (principal); L97.812 Non-pressure chronic ulcer of other part of right lower leg with fat layer exposed
CPT/HCPCS: G0463

== ENCOUNTER 2025-07-17 10:29 | Outpatient (OUT) | payer MEDICARE, OTHER, SELFPAY ==
--- OUTSIDE RECORDS SUMMARY | 2025-07-17 10:32 | XMS_ITS | Encounter Summary ---
Author Organization [employer] tem Address [facility] [place][id number] [address] [place] [address] Care Team Providers Care Retail Center Receptionist Name Role Phone Robert Lopez DO Primary Care Provider [phone] Encounter Details Date Type Department Care Team (Late st Contact Info) Description 04/07/2022 Abstract [facility] - Medical Oncology [address] [place] [address] Heriberto Marroquin MD [address] [place] [address] [address] [place] [address] Social History Tobacco Use Types Packs/Day Years [...] 02/05/2022 us Not In System Ref Prov [place] IMAGING Final Res ult documented in this encounter Visit Diagnoses Not on filedocumented in this encounter Care Teams Retail Center Receptionist Relationship Specialty Start Date End Date Robert Lopez DO [address] [place] [address] PCP - General 01/19/13 documented as of this encounter
--- OUTSIDE RECORDS SUMMARY | 2025-07-17 10:32 | XMS_ITS | Encounter Summary ---
Author Organization [facility] Address [facility] [place]-[id number] [address] [place] [address] Care Team Providers Care Consultant Dietitian Name Role Phone Robert Lopez DO Primary Care Provider [phone] Encounter Details Date Type Department Care Team (Late st Contact Info) Description 03/15/2017 Documentation [facility] [address] [place] [address] Valorie Cruz RMA Social History Tobacco Use [...] on filedocumented in this encounter Care Teams Consultant Dietitian Relationship Specialty Start Date End Date Robert Lopez DO [address] [place] [address] PCP - General 01/19/13 documented as of this encounter
--- OUTSIDE RECORDS SUMMARY | 2025-07-17 10:32 | XMS_ITS | Encounter Summary ---
Author Organization [employer] Address [facility] [place]-[id number] [address] [place] [address] Care Team Providers Care Skiver Blockers Name Role Phone Robert Lopez Primary Care Provider [phone] Encounter Details Date Type Department Care Team (Late st Contact Info) Description 07/31/2020 Telephone [facility] [address] [place] [phone] Torrey Guevara RN Social History Tobacco Use [...] on filedocumented in this encounter Care Teams Skiver Blockers Relationship Specialty Start Date End Date Robert Lopez DO [facility] [place] [address] PCP - General 01/19/13 documented as of this encounter
--- OUTSIDE RECORDS SUMMARY | 2025-07-17 10:32 | XMS_ITS | Clinical Summary ---
Author Organization [employer] [facility] tem Address [facility] [place][id number] [address] 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
--- OUTSIDE RECORDS SUMMARY | 2025-07-17 10:32 | XMS_ITS | Clinical Summary ---
Author Organization [facility] Healthcare Address [address] [place] [address] Care Team Providers Care Railroad Mechanic Name Role Phone Robert Lopez DO Primary Care Provider [phone] Allergies Active Allergy Reactions Criticality Noted Date [...] Treatment [facility] [address] [facility] [address] [place] [address] Jacqui Harper, PT Low back pain, unspecified back pain laterality, unspecified chronicity, unspecified whether sciatica present (Primary Dx) 05/09/2025 Bamboo flowsheet [facility] [address] [facility] [address] [place] [address] Jacqui Harper, PT 05/09/2025 Travel 05/07/2025 12:30 PM EDT Treatment [facility] [address] [facility] [address] [place] [address] Gabriel Loco, COLLATERAL CLERK Low back pain, unspecified back pain laterality, unspecified chronicity, unspecified whether sciatica present (Primary Dx) 05/07/2025 Bamboo flowsheet [facility] [address] [facility] [address] [place] [address] Gabriel Loco, COLLATERAL CLERK 05/07/2025 Travel 05/03/2025 9:00 AM EDT Treatment [facility] [address] [facility] [address] [place] [address] Jacqui Harper, PT Low back pain, unspecified back pain laterality, unspecified chronicity, unspecified whether sciatica present (Primary Dx) 05/03/2025 Bamboo flowsheet [facility] [address] [facility] [address] [place] [address] Jacqui Harper, PT 05/03/2025 Travel 04/30/2025 9:00 AM EDT Treatment [facility] [address] [facility] [address] [place] [address] Gabriel Loco, COLLATERAL CLERK Low back pain, unspecified back pain laterality, unspecified chronicity, unspecified whether sciatica present (Primary Dx) 04/30/2025 Bamboo flowsheet [facility] [address] [facility] [address] [place] [address] Gabriel Loco, COLLATERAL CLERK 04/30/2025 Travel 04/26/2025 9:00 AM EDT Treatment [facility] [address] [facility] [address] [place] [address] Claudy Gabriel, COLLATERAL CLERK Low back pain, unspecified back pain laterality, unspecified chronicity, unspecified whether sciatica present (Primary Dx) 04/26/2025 Bamboo flowsheet [facility] [address] [facility] [address] [place] [address] Gabriel Loco, COLLATERAL CLERK 04/26/2025 Travel 04/23/2025 4:30 PM EDT Treatment [facility] [address] [facility] [address] [place] [address] Gabriel Loco, COLLATERAL CLERK Low back pain, unspecified back pain laterality, unspecified chronicity, unspecified whether sciatica present (Primary Dx) 04/23/2025 Bamboo flowsheet [facility] [address] [facility] [address] [place] [address] Gabriel Loco, COLLATERAL CLERK 04/23/2025 Travel 04/19/2025 10:30 AM EDT Treatment [facility] [address] [facility] [address] [place] [address] Jacqui Harper, PT Low back pain, unspecified back pain laterality, unspecified chronicity, unspecified whether sciatica present (Primary Dx) 04/19/2025 Bamboo flowsheet [facility] [address] [facility] [address] [place] [address] Jacqui Harper, PT 04/19/2025 Travel from Last 3 Months Social History [...] 04/07/2026 11:15 AM EDT Office Visit [facility] [address] [place] [address] Jr. Jovi Silva, DO [address] [place] [address] Health Maintenance Due Date Last Done Comments Pneumococcal Vaccine: 65+ Ye ars (2 of 2 - PCV) 07/29/2018 07/29/2017 Influenza Vaccine (#1) 2025 4, 10/13/2022, 11/16/2019, Additional history exists Insurance MEDICARE [facility] [place] [id number] Care Teams Railroad Mechanic Relationship Specialty Start Date End Date Robert Lopez DO PCP - General Internal Medicine 04/03/24
--- OUTSIDE RECORDS SUMMARY | 2025-07-17 10:32 | XMS_ITS | Encounter Summary ---
Author Organization [facility] [facility] tem Address [id number] [address] [place] [address] Care Team Providers Care Welfare Officer Name Role Phone Robert Lopez DO Primary Care Provider [phone] Encounter Details Date Type Department Care Team (Late st Contact Info) Description 05/18/2022 Orders Only [facility] [address] [place] [phone] Heriberto Marroquin MD [address] [place] [address] [address] [place] [id number] Social History Tobacco Use Types Packs/Day [...] on filedocumented in this encounter Care Teams Welfare Officer Relationship Specialty Start Date End Date Robert Lopez DO [address] [place] [address] PCP - General 01/19/13 documented as of this encounter
--- OUTSIDE RECORDS SUMMARY | 2025-07-17 10:32 | XMS_ITS | Clinical Summary ---
Author Organization [facility] Address [address] [place] [id number] Care Team Providers Care Manager Business Management Name Role Phone Unavailable Primary Care Provider [...]
--- OUTSIDE RECORDS SUMMARY | 2025-07-17 10:32 | XMS_ITS | Encounter Summary ---
Author Organization [employer] Address [facility] [id number] [address] [place] [address] Care Team Providers Care Graphics Specialist Name Role Phone Robert Lopez DO Primary Care Provider [phone] Encounter Details Date Type Department Care Team (Late st Contact Info) Description 01/17/2019 Telephone [facility] [address] [phone] Torrey Guevara RN Social History [...] on filedocumented in this encounter Care Teams Graphics Specialist Relationship Specialty Start Date End Date Robert Lopez DO [address] [place] [address] PCP - General 01/19/13 documented as of this encounter
--- OUTSIDE RECORDS SUMMARY | 2025-07-17 10:43 | XMS_ITS | CCD ---
Author Organization [facility] Care Team Providers Care Tree Farmer Name Role Phone ROBERT VAIL Primary Care Physician Quita Simmons Unavailable Usama Batista Unavailable Michael Dunaway Unavailable Maico Lloyd Unavailable DO Robert Vail Primary Care Provider DO Maico Lloyd Attending Provider MD Michael Dunaway Attending Provider Kaitlynn Foy Unavailable Ursula Velarde Unavailable Robert Vail Unavailable Ivon Batista Unavailable GENNA, DR JONES Admitting Unavailable BALL, DR JONES Attending Unavailable BALL, DR JONES Primary Care Unavailable BALL, DR JONES Consulting Unavailable ZIEBER, DR NIDA Lopez Consulting Unavailable BALL, DR JONES Admitting Unavailable BALL, DR JONES Attending Unavailable BALL, DR JONES Primary Care Unavailable BALL, DR JONES Consulting Unavailable BALL, DR JONES Admitting Unavailable BALL, DR JONES Attending Unavailable BALL, DR JONES Primary Care Unavailable BALL, DR JONES Consulting Unavailable ZIEBNANCY, DR NIDA Lopez Consulting Unavailable BALL, DR JONES Admitting Unavailable BALL, DR JONES Attending Unavailable BALL, DR JONES Primary Care Unavailable BALL, DR JONES Consulting Unavailable FEIDERCELINA Consulting Unavailable BALL, DR JONES Admitting Unavailable BALL, DR JONES Attending Unavailable BALL, DR JONES Primary Care Unavailable BALL, DR JONES Admitting Unavailable BALL, DR JONES Attending Unavailable BALL, DR JONES Primary Care Unavailable BALL, DR JONES Consulting Unavailable Genna, DO Jones Primary Care Provider MD Juancarlos Campbell Attending Provider [phone] DO Robert Vail Primary Care Provider MD Juancarlos Campbell Attending Provider Genna, DO Jones Primary Care Provider MD Michael Dunaway Attending Provider [phone] Genna, DO Jones Primary Care Provider MD Michael Dunaway Attending Provider Genna, DO Jones Primary Care Provider MD Michael Dunaway Attending Provider MD Micheal Dunaway Attending Provider Robert Vail DO Primary Care Provider Michael Dunaway MD Attending Provider Robert Vail Primary Care Unavailable Emelyn, Michael S Admitting Unavailable Emelyn, Michael S Attending Unavailable Robert Vail Primary Care Unavailable Emelyn, Ziad S Admitting Unavailable Emelyn, Ziad S Attending Unavailable Emelyn, Michael S Attending Unavailable Emelyn, Michael S Admitting Unavailable Robert Vail Primary Care Unavailable Genna, Robert Primary Care Unavailable Emelyn, Michael S Attending Unavailable Emelyn, Michael S Admitting Unavailable Emelyn, Michael S Admitting Unavailable Emelyn, Michael S Attending Unavailable Robert Vail Primary Care Unavailable Genna, Robert Primary Care Unavailable Juancarlos Campbell Admitting Unavailable Juancarlos Campbell Attending Unavailable Robert Vail Primary Care Unavailable Emelyn, Michael S Admitting Unavailable Emelyn, Michael S Attending Unavailable Robert Vail Primary Care Unavailable Emelyn, Michael S Admitting Unavailable Emelyn, Michael S Attending Unavailable Robert Vail MD Primary Care Provider Robert Vail DO Primary Care Provider [phone] Michael Dunaway MD Attending Provider Robert Vail MD Primary Care Provider Robert Vail MD Primary Care Provider Robert Vail DO Primary Care Provider Taye VAZQUEZ Attending Unavailable Jeff Medellin Attending Unavailable Taye VAZQUEZ Attending Unavailable HARPER, JACQUI Attending Unavailable BALL, ROBERT E Referring Unavailable XIAO, GABRIEL Attending Unavailable BALL, ROBERT E Referring Unavailable XIAO, GABRIEL Attending Unavailable BALL, ROBERT E Referring Unavailable HARPER, JACQUI Attending Unavailable BALL, ROBERT E Referring Unavailable KELBLEY, TIERNEY Attending Unavailable BALL, ROBERT E Referring Unavailable KELBLEY, TIERNEY Attending Unavailable BALL, ROBERT E Referring Unavailable XIAO, GABRIEL Attending Unavailable BALL, ROBERT E Referring Unavailable KELBLEY, TIERNEY Attending Unavailable BALL, ROBERT E Referring Unavailable KELBLEY, TIERNEY Attending Unavailable BALL, ROBERT E Referring Unavailable HARPER, JACQUI Attending Unavailable BALL, ROBERT E Referring Unavailable HARPER, JACQUI Attending Unavailable BALL, ROBERT E Referring Unavailable HARPER, JACQUI Attending Unavailable BALL, ROBERT E Referring Unavailable HARPER, JACQUI Attending Unavailable BALL, ROBERT E Referring Unavailable XIAO, GABRIEL Attending Unavailable BALL, ROBERT E Referring Unavailable HARPER, JACQUI Attending Unavailable BALL, ROBERT E Referring Unavailable HARPER, JACQUI Attending Unavailable BALL, ROBERT E Referring Unavailable HARPER, JACQUI Attending Unavailable BALL, ROBERT E Referring Unavailable XIAO, GABRIEL Attending Unavailable BALL, ROBERT E Referring Unavailable IXAO, GABRIEL Attending Unavailable BALL, ROBERT E Referring Unavailable XIAO, GABRIEL Attending Unavailable BALL, ROBERT E Referring Unavailable HARPER, JACQUI Attending Unavailable BALL, ROBERT E Referring Unavailable XIAO, GABRIEL Attending Unavailable BALL, ROBERT E Referring Unavailable HARPER, JACQUI Attending Unavailable BALL, ROBERT E Referring Unavailable Ball Robert SIERRA Primary Care Provider Michael Dunaway MD Attending Provider Robert Vail DO Attending Provider Morena Donato APRN Attending Provider [phone] Allergies Allergy Classification Reported Allergen(s) Allergy Type Date of Onset Reaction(s) Facility NSAIDs (1 source) celecoxib Drug Allergy 05-28-20 24 [facility] Penicillins (antibiotic) (1 source) Penicillins Drug Allergy 05-28-20 [facility] Serotonin Reuptake Inhibitors (SSRIs) (1 source) Citalopram Drug Allergy 05-28-20 24 [facility] (2 sources) Adhesive Tape; 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: [Tape] Drug allergy rash [facility] [place] (20 sources) celecoxib; 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: [celecoxib] Drug Allergy 05-05-20 22 rash, Hives, Unknown [facility] (1 source) Penicillins; 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: [penicillins] Drug allergy groggy [facility] Comment on above: Pt. states PCN does n't work for me, it just doesn't work (20 sources) Penicillin G Drug Allergy rash [facility] Other (20 sources) Penicillins; 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: [Penicillins] Allergy to substance 12-04-19 14 Rash, Itching, Swelling [facility] (2 sources) celecoxib Drug Allergy 12-04-19 14 [facility] (1 source) Citalopram Drug Allergy [facility] (1 source) Desonide Drug Allergy [facility] (20 sources) Citalopram Drug Allergy 12-27-19 24 Unknown, Hives [facility] (18 sources) Penicillin Drug Allergy 08-17-20 13 Unknown [email or web address] [employer] Other (1 source) Substance with penicillin structure and antibacterial mechanism of action (substance) Drug allergy Unknown [facility] Other (1 source) patient allergy list reviewed by nurse or physicia Propensity to adverse reactions 09-19-20 14 Comment:Done [email or web address] Other (1 source) celecoxib Drug Allergy 01-04-20 25 [facility] (1 source) Citalopram Drug Allergy 01-04-20 25 [facility] (20 sources) celecoxib Drug Allergy 01-16-20 15 Hives, Itching, Rash, Swelling [facility] (20 sources) Wound Dressing Adhesive Drug Allergy 10-31-20 23 Rash [facility] Medications Current Medications Medication Drug Class(es) Dates Sig (Normalized) Sig (Original) AeroChamber Mini Chamber - (20 sources) Start: 03-14-2023 AeroChamber Mini Chamber - Use with MDI inhaled Use q 4 hours as needed for cough for 30 days Feb, Active Carole Allergy 180 MG (20 sources) Start: 03-10-2023 take 1 tablet by mouth once daily Carole Allergy 180 MG 1 tablet Swallow whole with water; do not take with fruit juices. Orally Once a day for 30 days Feb, Active atorvastatin 20 mg oral tablet (20 sources) HMG-CoA Reductase Inhibitor Start: 06-18-2025 take 1 tablet by mouth once daily in the evening Atorvastatin 20 mg tablet Active 20 MG PO Every evening June 18, 2025 2:44pm Complies with drug therapy Start: 03-18-2025 End: 06-18-2025 Atorvastatin 20 mg tablet Discontinued 0 .ROUTE .COMPLEX March 18, 2025 6:30pm June 18, 2025 2:46pm TAKE 1 TABLET EVERY DAY Start: 03-18-2025 Atorvastatin 2 0 mg tablet Active 0 .ROUTE .COMPLEX March 18, 2025 6:30pm TAKE 1 TABLET EVERY DAY Start: 03-27-2015 End: 03-18-2025 take 1 tablet by mouth once daily Atorvastatin 20 mg tablet Discontinued 20 MG PO Daily May 05, 2022 12:00am March 12, 2024 6:05pm doxycycline monohydrate 100 mg oral tablet (20 sources) Tetracycline-class Drug Start: 06-14-2025 take 1 tablet by mouth twice daily Doxycycline Monohydrate 100 mg tablet Active 100 MG PO Twice daily 16 09June 14, 2025 12:00am Complies with drug therapy Start: 01-04-2025 End: 04-09-2025 take 1 capsule by mouth twice daily Doxycycline Hyclate 100 mg capsule Discontinued 100 MG PO Twice daily 10 06January 16, 2025 1:46pm April 09, 2025 10:23am Start: 02-15-2024 End: 05-28-2024 take 1 capsule by mouth twice daily Doxycycline Hyclate 100 mg capsule Discontinued 100 MG PO Twice daily 16 09February 15, 2024 12:00am May 28, 2024 2:25pm Start: 04-08-2023 take 1 capsule by [facility] twice daily as needed Doxycycline Hyclate 100 MG 1 capsule Orally twice daily for 7 days March, Not-Taking/PRN Start: 05-05-2022 End: 06-23-2022 take 1 capsule by mouth once daily Doxycycline Hyclate 100 mg capsule Discontinued 100 MG PO Daily May 05, 2022 12:00am June 23, 2022 10:21am empagliflozin 10 mg oral tablet (4 sources) Sodium-Glucose Cotransporter 2 Inhibitor Start: 04-19-2025 take 1 tablet by mouth once daily in the morning Empagliflozin (Jardiance) 10 mg tablet Active 10 MG PO Every morning 30 April 19, 2025 12:00am Complies with drug therapy furosemide 20 mg oral tablet (20 sources) Loop Diuretic Start: 09-21-2024 End: 09-21-2024 take 1 tablet by mouth twice daily Furosemide 20 mg tablet Active 20 MG PO Twice daily 180 90 September 21, 2024 4:20pm Complies with drug therapy Start: 02-14-2024 End: 09-21-2024 take 1 tablet by mouth once daily Furosemide 40 mg tablet Discontinued 40 MG PO Daily February 14, 2024 12:00am September 21, 2024 3:26pm Start: 03-03-2022 take 1 tablet by danika th twice daily Lasix 20 mg Tab 20 mg = 1 tab(s), Oral, BID, Refills(s) 0 Start Date: 03/03/22 Status: Ordered Inhalational Spacing Device (Aerochamber Mini) spacer (20 sources) Start: 02-14-2024 Inhalational S pacing Device (Aerochamber Mini) spacer Active 0 .Route February 13, 2024 11:00pm As directed Start: 02-14-2024 Inhalational S pacing Device (Aerochamber Mini) spacer Active 0 .Route February 14, 2024 12:00am As directed levETIRAcetam 500 mg oral ta blet (20 sources) Start: 03-12-2024 End: 06-18-2025 Levetiracetam 500 mg tablet Active 750 MG PO Twice daily 270 90 June 18, 2025 2:42pm Complies with drug therapy Start: 03-12-2024 End: 03-12-2024 take 750 mg by mouth twice daily Levetiracetam Active 750 MG PO Twice daily 270 90 March 12, 2024 6:04pm Start: 02-14-2024 End: 03-12-2024 Levetiracetam 500 mg tablet Discontinued 750 MG PO Daily February 14, 2024 12:00am March 12, 2024 5:05pm Start: 02-14-2024 End: 03-12-2024 take 750 mg by mouth once daily Levetiracetam Discontinued 750 MG PO Daily February 14, 2024 12:00am March 12, 2024 5:05pm Start: 05-05-2022 End: 02-14-2024 take 1 tablet by mouth once daily Levetiracetam 500 mg tablet Discontinued 500 MG PO Daily May 05, 2022 12:00am February 14, 2024 1:06pm Start: 11-20-2014 End: 03-12-2024 take 1 tablet by mouth twice daily Levetiracetam 500 mg tablet Discontinued 500 MG PO Twice daily February 14, 2024 1:04pm March 12, 2024 5:05pm take 1 tablet by danika th every eight hours Keppra 500 MG 1 tablet Orally tid Not-Taking levoFLOXacin 750 mg oral tablet (13 sources) Quinolone Antimicrobial take 1 tablet by mouth every twenty-four hours levoFLOXacin 750 MG 1 tablet Orally Once a day Active losartan potassium 50 mg oral tablet (20 sources) Angiotensin 2 Receptor Kareem Start: 025 take 1 tablet by mouth once daily Losartan 50 mg tablet Active 50 MG PO Daily 90 90 June 18, 2025 2:42pm Complies with drug therapy Start: 03-18-2025 End: 06-18-2025 Losartan 50 mg tablet Discon tinued 0 .ROUTE .COMPLEX 90 March 18, 2025 6:31pm June 18, 2025 2:46pm TAKE 1 TABLET EVERY DAY Start: 03-03-2022 End: 03-18-2025 take 1 tablet by mouth once daily Losartan 50 mg tablet Discontinued 50 MG PO Daily February 14, 2024 12:00am March 12, 2024 6:05pm take 1 tablet by danika th in the morning losartan (Cozaar) 25 MG tablet Take 25 mg by mouth in the morning. Active methylPREDNISolone 4 mg oral tablet (1 source) Corticosteroid Start: 11-07-2021 Medrol 4 MG as directed Orally as directed for 6 days Oct, Active mupirocin 0.02 mg/mg topical ointment (2 sources) RNA Synthetase Inhibitor Antibacterial Start: 06-14-2025 Mupirocin 2 % ointment Active 1 APPLIC TOPICAL Twice daily June 14, 2025 12:00am Complies with drug therapy polysaccharide iron complex 150 mg oral capsule (20 sources) Start: 12-10-2024 Polysaccharide Iron Complex (Ferrex 150) 150 mg iron capsule Active 150 MG PO Daily December 10, 2024 2:45pm Complies with drug therapy Start: 08-27-2024 End: 12-10-2024 take 1 capsule by mouth once daily Polysaccharide Iron Complex (Ferrex 150) 150 mg iron capsule Discontinued 0 .ROUTE .COMPLEX August 27, 2024 12:37pm December 10, 2024 2:45pm TAKE 1 CAPSULE BY MOUTH DAILY Start: 08-10-2024 End: 08-27-2024 Polysaccharide Iron Complex (Ferrex 150) 150 mg iron capsule Discontinued 150 MG PO every other day August 10, 2024 12:00am August 27, 2024 12:37pm Start: 06-22-2022 End: 08-10-2024 Polysaccharide Iron Complex (Ferrex 150) 150 mg iron capsule Discontinued 150 MG PO Daily February 15, 2024 3:00pm August 10, 2024 12:24pm Start: 03-03-2022 take 1 capsule by [facility] once daily Ferrex-150 oral capsule 150 mg = 1 cap(s), Oral, Daily, Refills(s) 0 Start Date: 03/03/22 Status: Ordered take 1 capsule by [facility] every other day IFerex 150 150 MG 1 capsule Orally qod for 30 days Active take 1 capsule by [facility] once daily IFerex 150 150 MG take 1 capsule by mouth once daily for 30 Not-Taking take 1 capsule by [facility] once daily IFerex 150 150 MG 1 capsule Orally Once a day Active potassium chloride 10 meq extended release oral capsule (20 sources) Start: 03-18-2025 Potassium Chlo ride 10 mEq capsule, extended release Active 0 .ROUTE .COMPLEX March 18, 2025 6:31pm TAKE 1 CAPSULE EVERY DAY Complies with drug therapy Start: 03-18-2025 Potassium Chlo ride 10 mEq capsule, extended release Active 0 .ROUTE .COMPLEX March 18, 2025 6:31pm TAKE 1 CAPSULE EVERY DAY Start: 05-05-2022 End: 03-18-2025 take 1 capsule by mouth once daily Potassium Chloride 10 mEq capsule, extended release Discontinued 10 MEQ PO Daily February 14, 2024 12:00am March 12, 2024 6:05pm Start: 03-27-2015 take 1 tablet by danika once daily potassium chloride 10 mEq ER Tab 10 [...] tablet (20 sources) Vitamin K Antagonist Start: 03-20-2025 take 1 tablet by mouth four times weekly Warfarin 5 mg tablet Active 5 MG PO 4 times per week March 20, 2025 1:37pm Complies with drug therapy Start: 03-20-2025 take 1 tablet by danika three times weekly Warfarin 2.5 mg tablet Active 2.5 MG PO 3 Times a week March 20, 2025 1:36pm Complies with drug therapy Start: 12-13-2024 End: 03-20-2025 take 1 tablet by mouth once daily Warfarin 5 mg tablet Discontinued 0 .ROUTE .COMPLEX 240 December 13, 2024 6:15pm March 20, 2025 1:38pm TAKE 1 TABLET BY MOUTH DAILY Start: 08-10-2024 End: 03-20-2025 take 1 tablet by mouth two times weekly Warfarin 2.5 mg tablet Discontinued 2.5 MG PO Twice a Week August 10, 2024 12:00am March 20, 2025 1:38pm Start: 05-28-2024 End: 12-13-2024 take 1 tablet by mouth five times weekly Warfarin 5 mg tablet Discontinued 5 MG PO 5 TIMES PER WEEK May 28, 2024 12:00am December 13, 2024 6:16pm Start: 08-15-2017 take 1 tablet by danika once daily warfarin (Coumadin) 5 MG tablet Take 5 mg by mouth 1 (one) time each day 10/10/2023 Active take 1 tablet by danika th two times weekly Coumadin 5 5 MG 1 tablet Orally Two times a Week Active witch darien 200 mg/ml medicated pad (20 sources) Start: 10-31-2023 Shimon Alamo (P reparation H Totables Wipes) 50 % pads Indications: Hemorrhoids, unspecified hemorrhoid type Apply 1 Dose topically every 8 (eight) hours if needed (with loose stool to wipe gently) 10 each 3 10/31/2023 Active Completed/Discontinued Medications Medication Drug Class(es) Dates Sig (Normalized) Sig (Original) acetaminophen 325 mg / HYDROcodone bitartrate 5 mg oral tablet (20 sources) Opioid Agonist Start: 02-14-2024 End: 03-29-2024 take 1 tablet by mouth twice daily Hydrocodone-Acetami nophen 5-325 mg tablet Discontinued 1 TAB PO Twice daily February 14, 2024 12:00am March 29, 2024 11:00am Start: 09-08-2023 take 1 tablet by danika twice daily as needed HYDROcodone-Acetaminophen 5-325 MG 1 tab let as needed Orally twice daily for 14 days Aug, Active [id number] 200 actuat albuterol 0.09 mg/actuat metered dose inhaler (20 sources) beta2-Adrenergic Agonist Start: 02-14-2024 End: 05-28-2024 take 1 puff(s) by inhalation every four hours Albuterol Sulfate 90 mcg/actuation HFA aerosol inhaler Discontinued 2 PUFF INHALATION Every 4 hours February 14, 2024 12:00am May 28, 2024 2:24pm Start: 03-14-2023 take 2 puff(s) by in [...] needed for cough and SOB Feb, Active alendronic acid 5 mg oral tablet (20 sources) Bisphosphonate Start: 02-14-2024 End: 03-29-2024 Alendronate 5 mg tablet Discontinued 5 MG PO February 14, 2024 12:00am March 29, 2024 11:00am 1 tablet 30 minutes before the first food, beverage or medicine of the day with plain water Orally Once a day Start: 05-05-2022 End: 06-23-2022 take 1 tablet by mouth every week Alendronate 70 mg tablet Discontinued 70 MG PO every week May 05, 2022 12:00am June 23, 2022 10:21am Start: 03-03-2022 take 1 tablet by danika th every week Fosamax 70 mg oral tablet 70 mg = 1 tab(s), Oral, qWeek, Refills(s) 0 Start Date: 03/03/22 Status: Ordered Alendronate Sodi um 5 MG 1 tablet 30 minutes before the first food, beverage or medicine of the day with plain water Orally Once a day Active apixaban 5 mg oral tablet (20 sources) Factor Xa Inhibitor Start: 05-05-2022 End: 05-28-2024 take 1 tablet by mouth once daily Apixaban (Eliquis) 5 mg tablet Discontinued 5 MG PO Daily May 05, 2022 12:00am May 28, 2024 2:24pm Eliquis 5 MG KAYLAN E 1 TABLET TWICE DAILY Active Eliquis Active azithromycin 250 mg oral tablet (20 sources) Macrolide Antimicrobial Start: 03-10-2023 Azithromycin 250 MG as directed Orally daily for 5 days Feb, Not-Taking/PRN Start: 12-27-2022 Azithromycin 5 00 MG 1 tablet Orally for 5 days Nov, Not-Taking/PRN benzonatate 200 mg oral capsule (20 sources) Non-narcotic Antitussive Start: 02-14-2024 End: 04-30-2024 take 1 capsule by mouth three times daily Benzonatate 100 mg capsule Discontinued 100 MG PO Three times daily February 14, 2024 12:00am April 30, 2024 3:05pm Start: 02-14-2024 End: 04-30-2024 take 1 capsule by mouth three times daily Benzonatate 200 mg capsule Discontinued 200 MG PO Three times daily February 14, 2024 12:00am April 30, 2024 3:05pm Start: 11-10-2023 take 1 capsule by mo ut every eight hours Benzonatate 100 MG 1 capsule as needed Orally Three times a day for 10 days Oct, Active Start: 03-10-2023 take 1 capsule by mo ut every eight hours Benzonatate 200 MG 1 capsule Orally Three times a day for 10 13 Feb, 2023 Active Start: 09-11-2022 take 1 capsule by mo uth every eight hours Tessalon Perles 100 MG 1 capsule as needed Orally Three times a day for 7 days Aug, Active cephalexin 500 mg oral capsule (19 sources) Cephalosporin Antibacterial Start: 07-11-2023 take 1 capsule by mouth twice daily as needed Cephalexin 500 MG 1 capsule Orally twice daily for 14 days Jun, Not-Taking/PRN Start: 09-27-2016 take 1 capsule by mo [facility] every twelve hours Cephalexin 500 MG 1 tablet Orally Twice a day for 7 days Aug, Not-Taking codeine phosphate 2 mg/ml / guaiFENesin 20 mg/ml oral solution (20 sources) Opioid Agonist Start: 03-14-2023 take 10 mL by mouth every six hours as needed for cough guaiFENesin-Codeine 100-10 MG/5ML 10 mL as needed Orally every 6 hours as needed for cough Feb, Not-Taking/PRN colestipol hydrochloride 1000 mg oral tablet (20 sources) Bile Acid Sequestrant Start: 02-14-2024 End: 05-28-2024 Colestipol 1 gram tablet Discontinued 2 GM PO Daily February 14, 2024 12:00am May 28, 2024 2:25pm Start: 02-14-2024 End: 05-28-2024 take 2 g by mouth once daily Colestipol Discontinued 2 GM PO Daily February 14, 2024 12:00am May 28, 2024 2:25pm Start: 07-11-2023 take 2 tablets by mo ut every twenty-four hours Colestipol HCl 1 GM 2 tablets Orally Once a day for 30 days Jun, Active take 2 tablets by mo uth every twenty-four hours Colestipol HCl 1 GM 2 tablets Orally Once a day for 90 days Active 0.8 ml enoxaparin sodium 150 mg/ml prefilled syringe (16 sources) Low Molecular Weight Heparin Start: 12-14-2024 End: 03-20-2025 Enoxaparin 120 mg/0.8 mL syringe Discontinued 0 .ROUTE .COMPLEX 4.8 December 14, 2024 6:34pm March 20, 2025 1:35pm INJECT 1 syringe EVERY 12 HOURS FOR 6 DAYS Start: 12-14-2024 End: 12-14-2024 Enoxaparin (Lovenox) 120 mg/ 0.8 mL syringe Discontinued 0 SUBCUT Every 12 hours 4.8 6 December 14, 2024 1:00am December 14, 2024 6:34pm subcutaneously every 12 hours; Start 3 days prior to surgery, hold on morning of surgery, restart when surgeon determines safe. Enoxaparin 120 mg/0.8 mL syringe (12 sources) Start: 12-14-2024 End: 03-20-2025 Enoxaparin 120 mg/0.8 mL syr jose luis Discontinued 0 .ROUTE .COMPLEX 4.8 December 14, 2024 6:34pm March 20, 2025 1:35pm INJECT 1 syringe EVERY 12 HOURS FOR 6 DAYS Start: 12-14-2024 Enoxaparin 120 mg/0.8 mL syringe Active 0 .ROUTE .COMPLEX 4.8 December 14, 2024 6:34pm INJECT 1 syringe EVERY 12 HOURS FOR 6 DAYS Start: 12-14-2024 Enoxaparin 120 mg/0.8 mL syringe Active 0 .ROUTE .COMPLEX 4.8 December 14, 2024 5:34pm INJECT 1 syringe EVERY 12 HOURS FOR 6 DAYS ferrous sulfate 325 mg oral tablet (20 sources) Start: 06-23-2022 End: 06-23-2022 take 1 tablet by mouth once daily Ferrous Sulfate 325 mg (65 mg iron) Tablet Discontinued 325 MG PO Daily June 23, 2022 12:00am June 23, 2022 10:22am ferrous sulfate ER 142 mg ER tablet Take 324 mg by mouth Active take 1 tablet by danika th every twenty-four hours Iron 325 (65 Fe) MG 1 tablet Orally Once a day Not-Taking fexofenadine hydrochloride 180 mg oral tablet (20 sources) Histamine-1 Receptor Antagonist Start: 02-14-2024 End: 03-20-2025 take 1 tablet by mouth once daily as needed Fexofenadine (Carole Allergy) 180 mg tablet Discontinued 180 MG PO Daily as needed for allergic symptoms February 14, 2024 12:00am March 20, 2025 1:35pm Start: 03-10-2023 take 1 tablet by mouth once da farrukh Carole Allergy 180 MG 1 tablet Swallow whole with water; do not take with fruit juices. Orally Once a day for 30 days Feb, Active Iron (1 source) take 1 tablet by mouth once daily Iron 325 (65 Fe) MG 1 tablet Orally Once a day Not-Taking phenytoin sodium 100 mg extended release oral capsule (20 sources) Anti-epileptic Agent Start: 05-05-2022 End: 06-23-2022 take 1 capsule by mouth three times daily Phenytoin Sodium Extended 100 mg capsule Discontinued 100 MG PO Three times daily May 05, 2022 12:00am June 23, 2022 10:21am Start: 04-10-2015 take 1 capsule by [facility] twice daily Dilantin 100 mg Cap-ER 100 mg = 1 cap(s), Oral, BID, Refills(s) 0, Seizure Start Date: 04/10/15 Status: Ordered take 1 capsule by [facility] every twelve hours Dilantin 100 MG 1 capsule Orally every 12 hrs Not-Taking take 1.5 tablets by mouth every six hours Phenytoin 50 MG 1.5 tablets Orally Four times a day Active traMADol hydrochloride 50 mg oral tablet (20 sources) Opioid Agonist Start: 02-14-2024 End: 03-29-2024 take 1 tablet by mouth once daily at bedtime Tramadol 50 mg tablet Discontinued 50 MG PO Daily at bedtime February 14, 2024 12:00am March 29, 2024 11:00am Start: 08-29-2023 take 1 tablet by danika th once [...] other specified organisms; 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: [Acute bronchitis] Onset: 3 Episodic Administrative/social admission (2 sources) Persons encountering health services in other specified circumstances Episodic Asthma (20 sources) Asthma - currently active; 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: [Unspecified asthma, uncomplicated] 02-14-2024 Chronic Biliary tract disease (2 sources) Biliary calculus; 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] 11-20-2014 Episodic Cataract (20 sources) After-cataract of bilateral eyes; 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, bilateral] Onset: 4 04-03-2024 Chronic Chronic obstructive pulmonary disease and bronchiectasis (20 [...] Complications of surgical procedures or medical care (4 sources) Infection following a procedure, other surgical [...] [Iron deficiency anemia, unspecified] Onset: 2 Episodic Deficiency and other anemia (8 sources) Anemia; 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: [Anemia, unspecified] Resolved: 2 04-09-2025 Episodic Deficiency and other anemia (9 sources) Iron deficiency anemia, unspecified; 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: [Iron deficiency anemia, unspecified] 12-07-2024 Episodic Deficiency and other anemia (3 sources) Anemia, unspecified; 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: [Anemia, unspecified] 04-09-2025 Episodic Diabetes mellitus with complications (20 sources) Type 2 diabetes mellitus; 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: [Type 2 diabetes mellitus with hyperglycemia] Onset: 3 Chronic Diabetes mellitus without complication (1 source) Diabetes mellitus 03-03-2022 Chronic Disorders of lipid metabolism (20 sources) Hyperlipidemia; 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: [Pure hypercholesterolemia] Onset: 0 03-03-2022 Chronic Diverticulosis and diverticulitis (2 sources) Diverticular disease; 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: [Diverticulitis of colon] Onset: 8 11-20-2014 Chronic E Codes: Adverse effects of medical drugs (6 sources) Adverse effect of anticoagulants, initial encounter; 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: [Anticoagulants causing adverse effects in therapeutic use] 01-04-2025 Episodic Epilepsy; convulsions (20 sources) Seizure disorder; 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: [...] 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] 03-03-2022 Chronic Open wounds of extremities (20 sources) Laceration of lower limb; 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: [Laceration without foreign body, unspecified lower leg, initial encounter] 12-12-2024 Episodic Open wounds of head; neck; and trunk (5 sources) Tear of skin; 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: [Open wound(s) (multiple) of unspecified site(s), without mention of complication] 06-14-2025 Episodic Osteoarthritis (3 sources) Degenerative joint disease of pelvis; 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: [Osteoarthrosis, unspecified whether generalized or localized, pelvic region and thigh] Onset: 7 Chronic Osteoporosis (20 sources) Osteoporosis; 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: [Age-related osteoporosis without current pathological fracture] 03-03-2022 Chronic Other acquired deformities (1 source) Acquired spondylolisthesis 04-07-2015 Episodic Other aftercare (20 sources) Long-term current use of anticoagulant; 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: [intermediate (current) use of anticoagulants] Onset: 2 Episodic Other aftercare (20 sources) watermaster (current) use of anticoagulants; 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: [Long-term (current) use of anticoagulants] Onset: 2 Resolved: 2 Episodic Other aftercare (1 source) Long-term current use of drug therapy; 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: [Other fdc (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 therapy] Episodic Other aftercare (20 sources) Encounter for therapeutic drug level monitoring; 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: [Encounter for therapeutic drug monitoring] 12-10-2024 Episodic Other and unspecified benign neoplasm (1 [...] [Arthrodesis status] Episodic Other connective tissue disease (20 sources) Pain in calf; 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: [Pain in unspecified lower leg] 03-24-2022 Episodic Comment on above: Problem List clean-u p per request of Phys. EHR Cmte Other connective tissue disease (1 source) Neuralgia; 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: [Unspecified neuralgia, neuritis, and radiculitis] Episodic Other connective tissue disease (1 source) Spasm; 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: [Other muscle spasm] Episodic Other connective tissue disease (2 sources) Pain in right leg Episodic Other connective tissue disease (20 sources) Ischial bursitis ; 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: [Other bursitis of hip, unspecified hip] 04-30-2024 Episodic Other diseases of bladder and [...] Episodic Other diseases of veins and lymphatics (15 sources) Venous insufficiency (chronic) (peripheral); 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: [Venous [...] Onset: 6 Episodic Other lower respiratory disease (20 sources) Dyspnea; 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: [Shortness of breath] Onset: 4 03-24-2022 Episodic Comment on above: Problem List clean-u p per request of Phys. EHR Cmte Other nervous system disorders (20 sources) Chronic pain; 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: [Other chronic pain] 02-14-2024 Chronic Other nervous system disorders (20 sources) Other chronic pain; 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: [Other chronic [...] (adult) (pediatric)] 04-07-2015 Chronic Residual codes; unclassified (20 sources) Obstructive sleep apnea (adult) (pediatric); 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: [...] Postmenopausal state; 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: [Asymptomatic menopausal state] Episodic Residual codes; unclassified (7 sources) Mammogram declined; 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: [Procedure and treatment not carried out because of patient's decision for unspecified reasons] 04-07-2025 Episodic Residual codes; unclassified (3 sources) Procedure and treatment not carried out because of patient's decision for unspecified reasons; 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: [Surgical or other procedure not carried out because of patient's decision] 04-09-2025 Episodic Retinal detachments; defects; vascular occlusion; and retinopathy (20 sources) Epiretinal membrane of right eye; 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, right eye] Onset: 4 04-03-2024 Chronic Skin and subcutaneous tissue infections (20 sources) Erysipelas; 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: [Cellulitis of right lower [...] encounter] Onset: 8 Episodic Superficial injury; contusion (17 sources) Contusion of lower leg; 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: [Contusion [...] 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: [Hemorrhagic condition, unspecified] Onset: 03-20-2014 Episodic Diabetes mellitus without complication (1 source) Impaired fasting glycemia; 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: [Impaired fasting glucose] Resolved: 01-05-2021 Episodic Esophageal disorders (3 sources) Esophageal disorders; 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: [Gastro-esophageal reflux disease with esophagitis, without bleeding] Fluid and electrolyte disorders (1 source) Hypokalemia; 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: [Hypokalemia] Onset: 07-17-2018 Episodic Inflammation; infection of eye (except that caused by tuberculosis or sexually transmitteddisease) (20 sources) Blepharitis of upper and lower eyelids of bilateral eyes; 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: [Unspecified blepharitis right eye, upper and lower eyelids] Onset: 04-03-2024 04-03-2024 Episodic Intestinal infection (1 source) Infectious colitis, [...] in left leg] Onset: 05-06-2017 Episodic Other connective tissue disease (14 sources) Other bursitis of hip, unspecified hip; 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: [Enthesopathy of hip region] Onset: 05-09-2024 04-30-2024 Episodic Other eye disorders (20 sources) Dry eyes; 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: [Dry eye syndrome of bilateral lacrimal glands] Onset: 04-03-2024 04-03-2024 Episodic Other gastrointestinal disorders (4 sources) Intra-abdominal [...] Range Facility Basophils Auto (Bld) [#/Vol] on 04-18-2025 Basophils (Bld) [#/Vol] Automated basophil count 0.0-0.1 [facility] Basophils (Bld) [#/Vol] 0.0 10 3/uL 0.0-0.1 [facility] Basophils/100 WBC Auto (Bld) on 04-18-2025 Basophils/100 WBC (Bld) Automated basophil % 0.2-2.0 [facility] Basophils/100 WBC (Bld) 0.6 % 0.2-2.0 [facility] Cholesterol in LDL Calc [Mas s/Vol]on 04-18-2025 Cholesterol in LDL [Mass/Vol] Cholesterol in LDL [Mass/volume] in Serum or Plasma by calculation [facility] Comment on above: <100 mg/dl [id number] 0-129 mg/dl NEAR OR ABOVE [id number] mg/dl BORDERLINE [id number] mg/dl HIGH>190 mg/dl VERY HIGH Cholesterol in LDL [Mass/Vol] 52.0 mg/dL [facility] Comment on above: <100 mg/dl [id number] 0-129 mg/dl NEAR OR ABOVE [id number] mg/dl BORDERLINE [id number] mg/dl HIGH>190 mg/dl VERY HIGH Cholesterol in VLDL Calc [Ma ss/Vol]on 04-18-2025 Cholesterol in VLDL [Mass/Vol] Cholesterol in VLDL [Mass/volume] in Serum or Plasma by calculation [facility] Cholesterol in VLDL [Mass/Vol] 10.0 mg/dL [facility] Eosinophils/100 WBC Auto (Bl d)on 04-18-2025 Eosinophils/100 WBC (Bld) Automated eosinophil % 0.9-7.0 [facility] Eosinophils/100 WBC (Bld) 1.3 % 0.9-7.0 [facility] Erythrocyte distribution wid th Auto (RBC) [Ratio]on 04-18-2025 Erythrocyte distribution width (RBC) [Ratio] Erythrocyte distribution width [Ratio] by Automated count 11.0-15.0 [facility] Erythrocyte distribution width (RBC) [Ratio] 14.6 % 11.0-15.0 [facility] Estimated glomerular filtrat ion rate (GFR) non- Americanon 04-18-2025 GFR/1.73 sq M.predicted among non-blacks MDRD (S/P/Bld) [Vol rate/Area] Estimated glomerular filtration rate (GFR) non- >=60 mL/min/1.7 3m 2 [facility] GFR/1.73 sq M.predicted among non-blacks MDRD (S/P/Bld) [Vol rate/Area] mL/min/{1.73_m2} >=60 mL/min/1.7 3m 2 [facility] Globulin Calc (S) [Mass/Vol] on 04-18-2025 Globulin (S) [Mass/Vol] Serum globulin measurement by calculation (mass/volume) [facility] Globulin (S) [Mass/Vol] 3.5 g/dL [facility] Glucose mean value [Mass/vol ume] in Blood Estimated from glycated hemoglobinon 04-18-2025 Average glucose Estimated from glycated hemoglobin (Bld) [Mass/Vol] Glucose mean value [Mass/volume] in Blood Estimated from glycated hemoglobin [facility] Average glucose Estimated from glycated hemoglobin (Bld) [Mass/Vol] 154 mg/dL [facility] Hematocrit Auto (Bld) [Volum e fraction]on 04-18-2025 Hematocrit (Bld) [Volume fraction] Hematocrit [Volume Fraction] of Blood by Automated count 36.0-48.0 [facility] Hematocrit (Bld) [Volume fraction] 41.2 % 36.0-48.0 [facility] Hemoglobin A1c percentageon 04-18-2025 HbA1c (Bld) [Mass fraction] Hemoglobin A1c percentage High 4.5-6.2 [facility] Comment on above: ADA RECOMMENDED LIMI T 4.0 - 6.0ADA THERAPEUTIC TARGET < 7.0ACTION SUGGESTED> 7.0 HbA1c (Bld) [Mass fraction] 7.0 % High 4.5-6.2 [facility] Comment on above: ADA RECOMMENDED LIMI T 4.0 - 6.0ADA THERAPEUTIC TARGET < 7.0ACTION SUGGESTED> 7.0 Hemoglobin [Mass/volume] in Bloodon 04-18-2025 Hemoglobin (Bld) [Mass/Vol] Hemoglobin [Mass/volume] in Blood 12.0-16.0 [facility] Hemoglobin (Bld) [Mass/Vol] 13.3 g/dL 12.0-16.0 [facility] Laboratory - Chemistry and C hemistry - challengeon 04-18-2025 Albumin [Mass/Vol] 3.5 g/dL 3.4-5.0 [facility] ALP [Catalytic activity/Vol] 103 U/L 46-116 [facility] ALT [Catalytic activity/Vol] 25 U/L 14-59 [facility] AST [Catalytic activity/Vol] 16 U/L 15-37 [facility] Bilirubin [Mass/Vol] 0.9 mg/dL 0.2-1.0 [facility] Calcium [Mass/Vol] 9.6 mg/dL 8.5-10.1 [facility] Chloride [Moles/Vol] 103 mmol/L 98-107 [facility] Cholesterol [Mass/Vol] 140 mg/dL <=200 [facility] Cholesterol in HDL [Mass/Vol] 78 mg/dL High 40-60 [facility] Comment on above: > or =60 mg/dl - LOW CARDIOVASCULAR RISK<40 mg/dl - HIGH CARDIOVASCULAR RISK CO2 [Moles/Vol] 30.8 mmol/L 21.0-32.0 [facility] Creatinine [Mass/Vol] 0.80 mg/dL 0.55-1.02 [facility] GFR/1.73 sq M.predicted MDRD (S/P/Bld) [Vol rate/Area] mL/min/{1.73_m2} >=60 mL/min/1.7 3m 2 [facility] Glucose [Mass/Vol] 123 mg/dL High 74-106 [facility] Potassium [Moles/Vol] 4.3 mmol/L 3.5-5.1 [facility] Protein [Mass/Vol] 7.0 g/dL 6.4-8.2 [facility] Sodium [Moles/Vol] 142 mmol/L 136-145 [facility] Triglyceride [Mass/Vol] 50 mg/dL <=150 [facility] TSH Qn 0.678 m[IU]/L 0.358-3.74 0 [facility] Urea nitrogen [Mass/Vol] 16.0 mg/dL 7.0-18.0 [facility] Urea nitrogen/Creatinin e [Mass ratio] 20.0 mg/mg [facility] Laboratory - Hematology and Cell countson 04-18-2025 Immature granulocytes/100 WBC (Bld) 0.6 % High 0.0-0.5 [facility] Leukocytes [#/volume] correc torri for nucleated erythrocytes in Blood by Automated counon 04-18-2025 WBC corrected for nucl RBC Auto (Bld) [#/Vol] Leukocytes [#/volume] corrected for nucleated erythrocytes in Blood by Automated coun 4.0-11.0 [facility] WBC corrected for nucl RBC Auto (Bld) [#/Vol] 5.4 10 3/uL 4.0-11.0 [facility] Lymphocytes Auto (Bld) [#/Vo l]on 04-18-2025 Lymphocytes (Bld) [#/Vol] Lymphocytes [#/volume] in Blood by Automated count Low 1.2-3.8 [facility] Lymphocytes (Bld) [#/Vol] 0.7 10 3/uL Low 1.2-3.8 [facility] Lymphocytes/100 WBC Auto (Bl d)on 04-18-2025 Lymphocytes/100 WBC (Bld) Lymphocytes/100 leukocytes in Blood by Automated count Low 20.5-60.0 [facility] Lymphocytes/100 WBC (Bld) 13.5 % Low 20.5-60.0 [facility] MCH Auto (RBC) [Entitic mass ]on 04-18-2025 MCH (RBC) [Entitic mass] MCH [Entitic mass] by Automated count 26.7-34.0 [facility] MCH (RBC) [Entitic mass] 29.2 pg 26.7-34.0 [facility] MCHC Auto (RBC) [Mass/Vol]on 04-18-2025 MCHC (RBC) [Mass/Vol] MCHC [Mass/volume] by Automated count 29.9-35.2 [facility] MCHC (RBC) [Mass/Vol] 32.3 g/dL 29.9-35.2 [facility] MCV Auto (RBC) [Entitic vol] on 04-18-2025 MCV (RBC) [Entitic vol] MCV [Entitic volume] by Automated count 81.0-99.0 [facility] MCV (RBC) [Entitic vol] 90.5 fL 81.0-99.0 [facility] Microalbumin [Mass/volume] i n Urineon 04-18-2025 Albumin DL <= 20 mg/L (U) [Mass/Vol] Microalbumin [Mass/volume] in Urine <=30.0 [facility] Albumin DL <= 20 mg/L (U) [Mass/Vol] 2.2 mg/dL <=30.0 [facility] Monocytes Auto (Bld) [#/Vol] on 04-18-2025 Monocytes (Bld) [#/Vol] Automated blood monocyte count 0.3-0.8 [facility] Monocytes (Bld) [#/Vol] 0.5 10 3/uL 0.3-0.8 [facility] Monocytes/100 WBC Auto (Bld) on 04-18-2025 Monocytes/100 WBC (Bld) Automated monocyte % 1.7-12.0 [facility] Monocytes/100 WBC (Bld) 8.3 % 1.7-12.0 [facility] Neutrophils Auto (Bld) [#/Vo l]on 04-18-2025 Neutrophils (Bld) [#/Vol] Neutrophils [#/volume] in Blood by Automated count 1.4-6.5 [facility] Neutrophils (Bld) [#/Vol] 4.1 10 3/uL 1.4-6.5 [facility] Neutrophils/100 WBC Auto (Bl d)on 04-18-2025 Neutrophils/100 WBC (Bld) Automated neutrophil % High 43.0-75.0 [facility] Neutrophils/100 WBC (Bld) 75.7 % High 43.0-75.0 [facility] No Panel Informationon 04-18 Urine Random Creatinine 49.06 mg/dL 20.00-300. 00 [facility] Eosinophils # (Auto) 0.1 10 3/uL 0.0-0.7 [facility] Immature Granulocyte # (Auto) 0.03 10 3/uL 0.00-0.03 [facility] Platelet mean volume Auto (B ld) [Entitic vol]on 04-18-2025 Platelet mean volume (Bld) [Entitic vol] Platelet mean volume [Entitic volume] in Blood by Automated count 9.5-13.5 [facility] Platelet mean volume (Bld) [Entitic vol] 10.2 fL 9.5-13.5 [facility] Platelets Auto (Bld) [#/Vol] on 04-18-2025 Platelets (Bld) [#/Vol] Platelets [#/volume] in Blood by Automated count 150-450 [facility] Platelets (Bld) [#/Vol] 194 10 3/uL 150-450 [facility] RBC Auto (Bld) [#/Vol]on RBC (Bld) [#/Vol] Erythrocytes [#/volu me] in Blood by Automated count 4.20-5.40 [facility] RBC (Bld) [#/Vol] 4.55 10 6/uL 4.20-5.40 [facility] Serum or plasma albumin/glob ulin mass ratioon 04-18-2025 Albumin/Globulin [Mass ratio] Serum or plasma albumin/globulin mass ratio [facility] Albumin/Globulin [Mass ratio] 1.0 {ratio} [facility] Serum or plasma anion gap de terminationon 04-18-2025 Anion gap [Moles/Vol] Serum or plasma anion gap determination [facility] Anion gap [Moles/Vol] 12.5 mmol/L [facility] Serum or plasma total choles terol/high density lipoprotein (HDL) cholesterol mass stephane 04-18-2025 Cholesterol.total/ Cholesterol in HDL [Mass ratio] Serum or plasma total cholesterol/high density lipoprotein (HDL) cholesterol mass rat [facility] Comment on above: 3.3 - 4.4 LOW RISK4. 4 - 7.1 AVERAGE RISK7.1 - 11.0 MODERATE RISK>11.0 HIGH RISK Cholesterol.total/ Cholesterol in HDL [Mass ratio] 1.8 {ratio} [facility] Comment on above: 3.3 - 4.4 LOW RISK4. 4 - 7.1 AVERAGE RISK7.1 - 11.0 MODERATE RISK>11.0 HIGH RISK Urine microalbumin/creatinin e mass ratioon 04-18-2025 Albumin/Creatinine DL <= 20 mg/L (U) [Mass ratio] Urine microalbumin/creatinine mass ratio High 0.0-29.9 [facility] Comment on above: NO MICROALBUMINURIA 0-29 MG/GCLINICAL MICROALBUMINURIA 30-300 MG/GMACROALBUMINURIA >300 MG/G Albumin/Creatinine DL <= 20 mg/L (U) [Mass ratio] 44.8 mg/g High 0.0-29.9 [facility] Comment on above: NO MICROALBUMINURIA 0-29 MG/GCLINICAL MICROALBUMINURIA 30-300 MG/GMACROALBUMINURIA >300 MG/G Gastroenterology Office/Clin ic Noteon 04-11-2025 Gastroenterology Office/Clinic Note Gastroenterology Office/Clinic Note Chief Complaint 3 year colon recall [...] mm Hg 3077F 2. Chronic anticoagulation (Z79.01: watermaster (current) use of anticoagulants) 3. Redundant colon [...] smoker, quit more than 30 days ago Toba (more content not included)... Normal [facility] Comment on above: Result Comment: Elec tronically Signed By: Carmen Goss MA S\.br\Date and Time Signed: 04/11/25 10:07 EDT Ambulatory Visit Summaryon 0 04-01-2025 Ambulatory Visit Summary Ambulatory Visit Summary SANDRA TAVAREZ :1940 Visit Date:04/01/2025 Ambulatory Visit Instructions Your Diagnosis Cecal polyp Chronic anticoagulation Redundant colon Your Care Team Attending Physician - Lacie JENNINGS, Jeff Morales Primary Care Physician - BALL DO, ROBERT [...] you for choosing us for your care. [facility] Ambulatory Visit Summaryon 0 02-26-2025 Ambulatory Visit Summary Ambulatory Visit Summary SALENA K :1940 Visit Date:02/26/2025 Ambulatory Visit Instructions Your [...] you for choosing us for your care. Normal [facility] INR in Platelet poor plasma by Coagulation assayOrdered By: Michael Dunaway on 12-26-2024 INR Coag (PPP) [Relative time] INR in Platelet poor plasma by Coagulation assay [facility] Comment on above: INR Therapeutic Rang e A) Pre- and Peroperative OAT started two weeks before surgery. NOT HIP SURGERY: 1.5 - 2.5 HIP SURGERY: 2 - 3B) Primary and secondary prevention of venous THROMBOSIS: 2 - 3C) Active venous thrombosis, pulmonary embolismand prevention of recurrent venous thrombosis: 2 - 3D) Prevention of arterial thromboembolismincluding patients with mechanical heart valves: 3 - 4.5 Partial Thromboplastin Timeo n 12-26-2024 aPTT Coag (Bld) [Time] 29.0 s Normal 25.1-36.5 [facility] Comment on above: Result Comment: A he matocrit value greater than 55% may lead to inaccurate results in coagulation testing. Patients having hematocrit values >55% require a special collection tube for coagulation studies. Please contact the laboratory at [phone] for redraw instructions. PERFORMED BY: [place] [address] PATHOLOGIST SLAGGER ESDRAS MOREL M.D. Performed By: #### P T, PTT #### [place] [id number] [facility] Prothrombin Time INRon 12-26 INR Coag (PPP) [Relative time] 1.1 {INR} Normal [facility] Comment on above: Result Comment: INR Therapeutic Range A) Pre- [...] valves: 3 - 4.5 Performed By: #### P T, PTT #### [place] [id number] [facility] PT Coag (PPP) [Time] 13.1 s High 9.0-12.9 [facility] Comment on above: Result Comment: A he matocrit value greater than 55% may lead to inaccurate results in coagulation testing. Patients having hematocrit values >55% require a special collection tube for coagulation studies. Please contact the laboratory at [phone] for redraw instructions. Performed By: #### P T, PTT #### [place] [id number] [facility] Prothrombin time (PT)Ordered By: Michael Dunaway on 12-26-2024 PT Coag (PPP) [Time] Prothrombin time (PT) High 9.0-12.9 [facility] Comment on above: A hematocrit value g reater than 55% may lead to inaccurate results in coagulation testing. Patients having hematocrit values >55% require a special collection tube for coagulation studies. Please contact the laboratory at [phone] for redraw instructions. aPTT in Platelet poor plasma by Coagulation assayOrdered By: Michael Dunaway on 12-26-2024 aPTT Coag (PPP) [Time] Activated partial thromboplastin time (aPTT) in platelet poor plasma by coagulation a 25.1-36.5 [facility] Comment on above: A hematocrit value g reater than 55% may lead to inaccurate results in coagulation testing. Patients having hematocrit values >55% require a special collection tube for coagulation studies. Please contact the laboratory at [phone] for redraw instructions. INR in Platelet poor plasma by Coagulation assayOrdered By: Michael Dunaway on 12-24-2024 INR Coag (PPP) [Relative time] INR in Platelet poor plasma by Coagulation assay [facility] Comment on above: INR Therapeutic Rang e A) Pre- and Peroperative OAT started two weeks before surgery. NOT HIP SURGERY: 1.5 - 2.5 HIP SURGERY: 2 - 3B) Primary and secondary prevention of venous THROMBOSIS: 2 - 3C) Active venous thrombosis, pulmonary embolismand prevention of recurrent venous thrombosis: 2 - 3D) Prevention of arterial thromboembolismincluding patients with mechanical heart valves: 3 - 4.5 Prothrombin Time INRon 12-24 INR Coag (PPP) [Relative time] 1.6 {INR} Normal [facility] Comment on above: Result Comment: INR Therapeutic Range A) Pre- [...] heart valves: 3 - 4.5 PERFORMED BY: [address] [address] PATHOLOGIST SLAGGER ESDRAS MOREL M.D. Performed By: #### P T #### [address] [place] [address] [facility] PT Coag (PPP) [Time] 18.8 s High 9.0-12.9 [facility] Comment on above: Result Comment: A he matocrit value greater than 55% may lead to inaccurate results in coagulation testing. Patients having hematocrit values >55% require a special collection tube for coagulation studies. Please contact the laboratory at [phone] for redraw instructions. Performed By: #### P T #### [facility] [address] [id number] [facility] Prothrombin time (PT)Ordered By: Michael Dunaway on 12-24-2024 PT Coag (PPP) [Time] Prothrombin time (PT) High 9.0-12.9 [facility] Comment on above: A hematocrit value g reater than 55% may lead to inaccurate results in coagulation testing. Patients having hematocrit values >55% require a special collection tube for coagulation studies. Please contact the laboratory at [phone] for redraw instructions. Basophils Auto (Bld) [#/Vol] on 12-12-2024 Basophils (Bld) [#/Vol] Automated basophil count 0.0-0.1 [facility] Basophils/100 WBC Auto (Bld) on 12-12-2024 Basophils/100 WBC (Bld) Automated basophil % 0.2-2.0 [facility] Eosinophils/100 WBC Auto (Bl d)on 12-12-2024 Eosinophils/100 WBC (Bld) Automated eosinophil % 0.9-7.0 [facility] Erythrocyte distribution wid th Auto (RBC) [Ratio]on 12-12-2024 Erythrocyte distribution width (RBC) [Ratio] Erythrocyte distribution width [Ratio] by Automated count 11.0-15.0 [facility] Glucose mean value [Mass/vol ume] in Blood Estimated from glycated hemoglobinon 12-12-2024 Average glucose Estimated from glycated hemoglobin (Bld) [Mass/Vol] Glucose mean value [Mass/volume] in Blood Estimated from glycated hemoglobin [facility] Hematocrit Auto (Bld) [Volum e fraction]on 12-12-2024 Hematocrit (Bld) [Volume fraction] Hematocrit [Volume Fraction] of Blood by Automated count 36.0-48.0 [facility] Hemoglobin [Mass/volume] in Bloodon 12-12-2024 Hemoglobin (Bld) [Mass/Vol] Hemoglobin [Mass/volume] in Blood 12.0-16.0 [facility] Laboratory - Chemistry and C hemistry - challengeon 12-12-2024 Ferritin [Mass/Vol] 39.0 ng/mL 8.0-252.0 [facility] Laboratory - Hematology and Cell countson 12-12-2024 HbA1c (Bld) [Mass fraction] 6.5 % High 4.5-6.2 [facility] Comment on above: ADA RECOMMENDED LIMI T 4.0 - 6.0ADA THERAPEUTIC TARGET < 7.0ACTION SUGGESTED> 7.0 Immature granulocytes/100 WBC (Bld) 0.4 % 0.0-0.5 [facility] Leukocytes [#/volume] correc torri for nucleated erythrocytes in Blood by Automated counon 12-12-2024 WBC corrected for nucl RBC Auto (Bld) [#/Vol] Leukocytes [#/volume] corrected for nucleated erythrocytes in Blood by Automated coun 4.0-11.0 [facility] Lymphocytes Auto (Bld) [#/Vo l]on 12-12-2024 Lymphocytes (Bld) [#/Vol] Lymphocytes [#/volume] in Blood by Automated count Low 1.2-3.8 [facility] Lymphocytes/100 WBC Auto (Bl d)on 12-12-2024 Lymphocytes/100 WBC (Bld) Lymphocytes/100 leukocytes in Blood by Automated count Low 20.5-60.0 [facility] MCH Auto (RBC) [Entitic mass ]on 12-12-2024 MCH (RBC) [Entitic mass] MCH [Entitic mass] by Automated count 26.7-34.0 [facility] MCHC Auto (RBC) [Mass/Vol]on 12-12-2024 MCHC (RBC) [Mass/Vol] MCHC [Mass/volume] by Automated count 29.9-35.2 [facility] MCV Auto (RBC) [Entitic vol] on 12-12-2024 MCV (RBC) [Entitic vol] MCV [Entitic volume] by Automated count 81.0-99.0 [facility] Monocytes Auto (Bld) [#/Vol] on 12-12-2024 Monocytes (Bld) [#/Vol] Automated blood monocyte count 0.3-0.8 [facility] Monocytes/100 WBC Auto (Bld) on 12-12-2024 Monocytes/100 WBC (Bld) Automated monocyte % 1.7-12.0 [facility] Neutrophils Auto (Bld) [#/Vo l]on 12-12-2024 Neutrophils (Bld) [#/Vol] Neutrophils [#/volume] in Blood by Automated count 1.4-6.5 [facility] Neutrophils/100 WBC Auto (Bl d)on 12-12-2024 Neutrophils/100 WBC (Bld) Automated neutrophil % High 43.0-75.0 [facility] No Panel Informationon 12-12 Eosinophils # (Auto) 0.1 10 3/uL 0.0-0.7 [facility] Immature Granulocyte # (Auto) 0.02 10 3/uL 0.00-0.03 [facility] Platelet mean volume Auto (B ld) [Entitic vol]on 12-12-2024 Platelet mean volume (Bld) [Entitic vol] Platelet mean volume [Entitic volume] in Blood by Automated count 9.5-13.5 [facility] Platelets Auto (Bld) [#/Vol] on 12-12-2024 Platelets (Bld) [#/Vol] Platelets [#/volume] in Blood by Automated count 150-450 [facility] RBC Auto (Bld) [#/Vol]on RBC (Bld) [#/Vol] Erythrocytes [#/volu me] in Blood by Automated count 4.20-5.40 [facility] INR in Platelet poor plasma by Coagulation assayOrdered By: Michael Dunaway on 08-10-2024 INR Coag (PPP) [Relative time] 1.3 {INR} Normal [facility] Comment on above: INR Therapeutic Rang e A) Pre- and Peroperative OAT started two weeks before surgery. NOT HIP SURGERY: 1.5 - 2.5 HIP SURGERY: 2 - 3B) Primary and secondary prevention of venous THROMBOSIS: 2 - 3C) Active venous thrombosis, pulmonary embolismand prevention of recurrent venous thrombosis: 2 - 3D) Prevention of arterial thromboembolismincluding patients with mechanical heart valves: 3 - 4.5 Result Comment: INR Therapeutic Range A) Pre- [...] heart valves: 3 - 4.5 PERFORMED BY: [place] [address] PATHOLOGIST SLAGGER HERMELINDO BLUM M.D. Performed By: #### P T #### [facility] [address] [place], [place] [id number] [facility] Prothrombin time (PT)Ordered By: Michael Dunaway on 08-10-2024 PT Coag (PPP) [Time] 15.1 s High 9.0-12.9 [facility] Comment on above: A hematocrit value g reater than 55% may lead to inaccurate results in coagulation testing. Patients having hematocrit values >55% require a special collection tube for coagulation studies. Please contact the laboratory at [phone] for redraw instructions. Result Comment: A he matocrit value greater than 55% may lead to inaccurate results in coagulation testing. Patients having hematocrit values >55% require a special collection tube for coagulation studies. Please contact the laboratory at [phone] for redraw instructions. Performed By: #### P T #### [facility] [address] [place], [place] [id number] [facility] INR in Platelet poor plasma by Coagulation assayOrdered By: Michael Dunaway on 08-09-2024 INR Coag (PPP) [Relative time] 1.7 {INR} Normal [facility] Comment on above: INR Therapeutic Rang e A) Pre- and Peroperative OAT started two weeks before surgery. NOT HIP SURGERY: 1.5 - 2.5 HIP SURGERY: 2 - 3B) Primary and secondary prevention of venous THROMBOSIS: 2 - 3C) Active venous thrombosis, pulmonary embolismand prevention of recurrent venous thrombosis: 2 - 3D) Prevention of arterial thromboembolismincluding patients with mechanical heart valves: 3 - 4.5 Result Comment: INR Therapeutic Range A) Pre- [...] heart valves: 3 - 4.5 PERFORMED BY: [place] [address] PATHOLOGIST SLAGGER HERMELINDO BLUM M.D. Performed By: #### P T #### [address] Prothrombin time (PT)Ordered By: Michael Dunaway on 08-09-2024 PT Coag (PPP) [Time] 19.0 s High 9.0-12.9 [facility] Comment on above: A hematocrit value g reater than 55% may lead to inaccurate results in coagulation testing. Patients having hematocrit values >55% require a special collection tube for coagulation studies. Please contact the laboratory at [phone] for redraw instructions. Result Comment: A he matocrit value greater than 55% may lead to inaccurate results in coagulation testing. Patients having hematocrit values >55% require a special collection tube for coagulation studies. Please contact the laboratory at [phone] for redraw instructions. Performed By: #### P T #### [address] MR lumbar spine wo conon MR lumbar spine wo con [facility] [address] [place] [id number] MRI Report Signed Patient: Sandra Tavarez MR#: [id number] 7 : 1940 Acct:[id number] Age/Sex: 83 / F ADM Date: 06/15/24 Loc: MR Room: Type: [facility] Attending Dr: Michael Dunaway MD Copies to: [...] Tex Diaz M.D.06/15/2024 8:35 PM Dictation Location: [place] [address] Transcribed By: [facility] 06/15/242034 Dictated By: Tex Diaz II, MD 06/15/242025 Signed By: 06/15/242034 Normal [facility] INR in Platelet poor plasma by Coagulation assayon 05-16-2024 INR Coag (PPP) [Relative time] 1.36 {INR} [facility] Comment on above: DESIRED INR:2.0-3.0 CONDITIONS NOT LISTED BELOW2.5-3.5 FOR PROSTHETIC HEART VALVE REPLACEMENT2.5-3.5 RECURRENT THROMBOSIS Prothrombin time (PT)on 04-28 PT Coag (PPP) [Time] 14.0 s High 9.0-11.6 [facility] XR pelvis 1-2Von 05-09-2024 XR pelvis 1-2V [facility] [place] [address] XRay Report Signed Patient: Sadnra Tavarez MR#: [id number] 7 : 1940 Acct:[id number] Age/Sex: 83 / F ADM Date: 05/07/24 Loc: XD Room: Type: PRE CLI Attending Dr: Michael Dunaway MD Copies to: Michael Dunaway MD Ordering Provider: Michael Dunaway MD Date of Service: 05/09/24 XR/XR pelvis 1-2V: M70.70 - Other bursitis of hip, unspecified hip ([id number]) XR/XR lumbar spine AP/LAT/FLX/EXT: M47.817 - Spondylosis without myelopathy or radiculopathy... ([id number]) XR/XR sacrum coccyx min 2V: M47.818 - [...] PROCESS. Impression dictated by: Jaspreet Orozco Jr., D.O.05/09/2024 3:59 PM Dictation Location: [place] [address] Transcribed By: [facility] 05/09/24 1559 Dictated By: Jaspreet Orozco Jr, DO 05/09/24 1556 Signed By: 05/09/24 1559 Normal [facility] INR in Platelet poor plasma by Coagulation assayOrdered By: Michael Dunaway on 05-07-2024 INR Coag (PPP) [Relative time] 2.0 {INR} Normal [facility] Comment on above: INR Therapeutic Rang e A) Pre- and Peroperative OAT started two weeks before surgery. NOT HIP SURGERY: 1.5 - 2.5 HIP SURGERY: 2 - 3B) Primary and secondary prevention of venous THROMBOSIS: 2 - 3C) Active venous thrombosis, pulmonary embolismand prevention of recurrent venous thrombosis: 2 - 3D) Prevention of arterial thromboembolismincluding patients with mechanical heart valves: 3 - 4.5 Result Comment: INR Therapeutic Range A) Pre- [...] heart valves: 3 - 4.5 PERFORMED BY: [place] [address] PATHOLOGIST SLAGGER HERMELINDO BLUM M.D. Performed By: #### P T #### [address] Prothrombin time (PT)Ordered By: Michael Dunaway on 05-07-2024 PT Coag (PPP) [Time] 22.3 s High 9.0-12.9 [facility] Comment on above: A hematocrit value g reater than 55% may lead to inaccurate results in coagulation testing. Patients having hematocrit values >55% require a special collection tube for coagulation studies. Please contact the laboratory at [phone] for redraw instructions. Result Comment: A he matocrit value greater than 55% may lead to inaccurate results in coagulation testing. Patients having hematocrit values >55% require a special collection tube for coagulation studies. Please contact the laboratory at [phone] for redraw instructions. Performed By: #### P T #### [facility] [address] [place], [place] [id number] [facility] Basophils Auto (Bld) [#/Vol] on 04-30-2024 Basophils (Bld) [#/Vol] 0.0 10 3/uL 0.0-0.1 [facility] Basophils/100 WBC Auto (Bld) on 04-30-2024 Basophils/100 WBC (Bld) 0.7 % 0.2-2.0 [facility] Cholesterol in LDL Calc [Mas s/Vol]on 04-30-2024 Cholesterol in LDL [Mass/Vol] 43.0 mg/dL [facility] Comment on above: <100 mg/dl [id number] 0-129 mg/dl NEAR OR ABOVE [id number] mg/dl BORDERLINE UIUA301-063 mg/dl HIGH>190 mg/dl VERY HIGH Cholesterol in VLDL Calc [Ma ss/Vol]on 04-30-2024 Cholesterol in VLDL [Mass/Vol] 10.6 mg/dL [facility] Eosinophils/100 WBC Auto (Bl d)on 04-30-2024 Eosinophils/100 WBC (Bld) 1.9 % 0.9-7.0 [facility] Erythrocyte distribution wid th Auto (RBC) [Ratio]on 04-30-2024 Erythrocyte distribution width (RBC) [Ratio] 13.6 % 11.0-15.0 [facility] Estimated glomerular filtrat ion rate (GFR) non- Americanon 04-30-2024 GFR/1.73 sq M.predicted among non-blacks MDRD (S/P/Bld) [Vol rate/Area] mL/min/{1.73_m2} >=60 [facility] Globulin Calc (S) [Mass/Vol] on 04-30-2024 Globulin (S) [Mass/Vol] 3.4 g/dL [facility] Glucose mean value [Mass/vol ume] in Blood Estimated from glycated hemoglobinon 04-30-2024 Average glucose Estimated from glycated hemoglobin (Bld) [Mass/Vol] 137 mg/dL [facility] Hematocrit Auto (Bld) [Volum e fraction]on 04-30-2024 Hematocrit (Bld) [Volume fraction] 39.8 % 36.0-48.0 [facility] Hemoglobin [Mass/volume] in Bloodon 04-30-2024 Hemoglobin (Bld) [Mass/Vol] 13.0 g/dL 12.0-16.0 [facility] Laboratory - Chemistry and C hemistry - challengeon 04-30-2024 Albumin [Mass/Vol] 3.5 g/dL 3.4-5.0 [facility] ALP [Catalytic activity/Vol] 89 U/L 46-116 [facility] ALT [Catalytic activity/Vol] 25 U/L 14-59 [facility] AST [Catalytic activity/Vol] 21 U/L 15-37 [facility] Bilirubin [Mass/Vol] 1.1 mg/dL High 0.2-1.0 [facility] Calcium [Mass/Vol] 9.3 mg/dL 8.5-10.1 [facility] Chloride [Moles/Vol] 105 mmol/L 98-107 [facility] Cholesterol [Mass/Vol] 123 mg/dL <=200 [facility] Cholesterol in HDL [Mass/Vol] 70 mg/dL High 40-60 [facility] Comment on above: > or =60 mg/dl - LOW CARDIOVASCULAR RISK<40 mg/dl - HIGH CARDIOVASCULAR RISK CO2 [Moles/Vol] 26.1 mmol/L 21.0-32.0 [facility] Creatinine [Mass/Vol] 0.71 mg/dL 0.55-1.02 [facility] GFR/1.73 sq M.predicted MDRD (S/P/Bld) [Vol rate/Area] mL/min/{1.73_m2} >=60 [facility] Glucose [Mass/Vol] 96 mg/dL 74-106 [facility] Potassium [Moles/Vol] 4.0 mmol/L 3.5-5.1 [facility] Protein [Mass/Vol] 6.9 g/dL 6.4-8.2 [facility] Sodium [Moles/Vol] 141 mmol/L 136-145 [facility] Triglyceride [Mass/Vol] 53 mg/dL <=150 [facility] TSH Qn 0.705 m[IU]/L 0.358-3.74 0 [facility] Urea nitrogen [Mass/Vol] 16.0 mg/dL 7.0-18.0 [facility] Urea nitrogen/Creatinin e [Mass ratio] 22.5 mg/mg [facility] Laboratory - Hematology and Cell countson 04-30-2024 HbA1c (Bld) [Mass fraction] 6.4 % High 4.5-6.2 [facility] Comment on above: ADA RECOMMENDED LIMI T 4.0 - 6.0ADA THERAPEUTIC TARGET < 7.0ACTION SUGGESTED> 7.0 Immature granulocytes/100 WBC (Bld) 0.4 % 0.0-0.5 [facility] Leukocytes [#/volume] correc torri for nucleated erythrocytes in Blood by Automated counon 04-30-2024 WBC corrected for nucl RBC Auto (Bld) [#/Vol] 5.3 10 3/uL 4.0-11.0 [facility] Lymphocytes Auto (Bld) [#/Vo l]on 04-30-2024 Lymphocytes (Bld) [#/Vol] 1.0 10 3/uL Low 1.2-3.8 [facility] Lymphocytes/100 WBC Auto (Bl d)on 04-30-2024 Lymphocytes/100 WBC (Bld) 17.8 % Low 20.5-60.0 [facility] MCH Auto (RBC) [Entitic mass ]on 04-30-2024 MCH (RBC) [Entitic mass] 30.1 pg 26.7-34.0 [facility] MCHC Auto (RBC) [Mass/Vol]on 04-30-2024 MCHC (RBC) [Mass/Vol] 32.7 g/dL 29.9-35.2 [facility] MCV Auto (RBC) [Entitic vol] on 04-30-2024 MCV (RBC) [Entitic vol] 92.1 fL 81.0-99.0 [facility] Monocytes Auto (Bld) [#/Vol] on 04-30-2024 Monocytes (Bld) [#/Vol] 0.6 10 3/uL 0.3-0.8 [facility] Monocytes/100 WBC Auto (Bld) on 04-30-2024 Monocytes/100 WBC (Bld) 10.3 % 1.7-12.0 [facility] Neutrophils Auto (Bld) [#/Vo l]on 04-30-2024 Neutrophils (Bld) [#/Vol] 3.7 10 3/uL 1.4-6.5 [facility] Neutrophils/100 WBC Auto (Bl d)on 04-30-2024 Neutrophils/100 WBC (Bld) 68.9 % 43.0-75.0 [facility] No Panel Informationon 04-30 Eosinophils # (Auto) 0.1 10 3/uL 0.0-0.7 [facility] Immature Granulocyte # (Auto) 0.02 10 3/uL 0.00-0.03 [facility] Platelet mean volume Auto (B ld) [Entitic vol]on 04-30-2024 Platelet mean volume (Bld) [Entitic vol] 10.5 fL 9.5-13.5 [facility] Platelets Auto (Bld) [#/Vol] on 04-30-2024 Platelets (Bld) [#/Vol] 188 10 3/uL 150-450 [facility] RBC Auto (Bld) [#/Vol]on RBC (Bld) [#/Vol] 4.32 10 6/uL 4.20-5.40 [facility] Serum or plasma albumin/glob ulin mass ratioon 04-30-2024 Albumin/Globulin [Mass ratio] 1.0 {ratio} [facility] Serum or plasma anion gap de terminationon 04-30-2024 Anion gap [Moles/Vol] 13.9 mmol/L [facility] Serum or plasma total choles terol/high density lipoprotein (HDL) cholesterol mass stephane 04-30-2024 Cholesterol.total/ Cholesterol in HDL [Mass ratio] 1.8 {ratio} [facility] Comment on above: 3.3 - 4.4 LOW RISK4. 4 - 7.1 AVERAGE RISK7.1 - 11.0 MODERATE RISK>11.0 HIGH RISK Bacteria identified Aer cx N om (Unsp spec)Ordered By: Juancarlos Campbell on 01-12-2024 Superficial Wound Culture Pseudomonas aeruginosa [facility] Superficial Wound Cultureon 01-12-2024 Superficial Wound Culture LT POSTERIOR ANKLE AND LEFT LEG ORGANISM: Pseudomonas aeruginosa (O:PSEAER) Quantity of Growth Heavy Growth Aerobic RAINA Charge (NMIC56) SUSCEPTIBILITY ORGANISM: O:PSEAER ANTIBIOTIC INTERPRETATION RAINA Amikacin S <16 Aztreonam IB <4 Cefepime S <2 Ceftazidime IB <1 Ceftazidime/Avibactam S <4 Ceftolozane/Tazobactam S <2 Ciprofloxacin S <0.25 Gentamicin S <2 Levofloxacin S <0.5 Meropenem S <1 Piperacillin/Tazobactam IB <8 Tobramycin S <2 S = [...] RESISTANT TO ALL B-LACTAM DRUGS. PERFORMED BY: [place] [address] PATHOLOGIST SLAGGER HERMELINDO BLUM M.D. Normal [facility] Comment on above: Performed By: #### C USUP #### [address] MG MAMM SCREEN 3D KRISTOFER CADon 04-07-2023 MG MAMM SCREEN 3D KRISTOFER CAD Patient: SANDRA TAVAREZ Exam Date: 04/07/2023 : 1940 Gender:F Ordering : DR ROBERT VAIL D.O. Admission #: [id number] Family : Order #: [id number] CLICK HERE TO VIEW EXAM RADIOLOGY REPORT PROCEDURE: MAMMOGRAM SCREENING 3D BILATERAL CAD COMPARISON: MG MAMM SCREEN 3D KRISTOFER CAD, 02/05/2022. MG MAMM SCREEN KRISTOFER W CAD, 12/08/2020. MG MAMM SCREEN KRISTOFER W CAD, 11/27/2019. MG MAMM SCREEN KRISTOFER W CAD, 11/23/2018. INDICATIONS: Screening mammography Calculator Name NCI Breast Cancer Risk Assessment Tool 5 Year Breast Cancer Risk 1.40% Lifetime Breast Cancer Risk 2.10% Personal Breast Cancer No Personal Ovarian Cancer No Treatments None Family Cancers Grandmother-maternal with liver cancer at age 85; Father with leukemia cancer at age 42. LOCATION: [facility] BREAST COMPOSITION: Scattered areas fibroglandular density. FINDINGS: [...] M.D. on 04/07/2023 at 14:36 Normal [facility] CBC AUTO DIFFon 03-14-2023 BASO # 0.1 103/ul Normal 0.0-0.1 [facility] Comment on above: Performed By: #### C BC ####[facility] [id number] [place] [id number]. Gaurav Heriberto Basophils/100 WBC (Bld) 0.9 % Normal 0.2-2.0 [facility] Comment on above: Performed By: #### C BC ####[facility] [address] [place] [id number]. Gaurav Louis EO # 0.1 103/ul Normal 0.0-0.7 [facility] Comment on above: Performed By: #### C BC ####[facility] [address] [place] [id number]. Gaurav Louis Eosinophils/100 WBC (Bld) 1.2 % Normal 0.9-7.0 [facility] Comment on above: Performed By: #### C BC ####[facility] [address] [place] [id number]. Gaurav Louis Erythrocyte distribution width (RBC) [Ratio] 13.2 % Normal 11.0-15.0 [facility] Comment on above: Performed By: #### C BC ####[facility] [address] [place] [id number]. Gaurav Louis Hematocrit (Bld) [Volume fraction] 44.1 % Normal 36.0-48.0 [facility] Comment on above: Performed By: #### C BC ####[facility] [address] [place] [id number]. Gaurav Heriberto Hemoglobin (Bld) [Mass/Vol] 14.7 g/dL Normal 12.0-16.0 [facility] Comment on above: Performed By: #### C BC ####[facility] [address] [place] [id number]. Gaurav Louis IG # 0.02 10e3/ul Normal 0.00-0.03 [facility] Comment on above: Performed By: #### C BC ####[facility] [address] [place] [id number]. Gaurav Louis IG % 0.4 % Normal 0.0-0.5 [facility] Comment on above: Performed By: #### C BC ####[facility] [address] [place] [address]Dr. Gaurav Louis LYMPH # 0.9 103/ul Critically low 1.2-3.8 [facility] Comment on above: Performed By: #### C BC ####[facility] [address] [place] [address]Dr. Gaurav Louis Lymphocytes/100 WBC (Bld) 16.5 % Critically low 20.5-60.0 [facility] Comment on above: Performed By: #### C BC ####[facility] [address] [place] [address]Dr. Gaurav Louis MANUAL DIFF REQ NO Normal [facility] Comment on above: Performed By: #### C BC ####[facility] [address] [place] [address]Dr. Gaurav Louis MCH (RBC) [Entitic mass] 30.7 pg Normal 26.7-34.0 [facility] Comment on above: Performed By: #### C BC ####[facility] [address] [place] [address]Dr. Gaurav Louis MCHC (RBC) [Mass/Vol] 33.3 g/dL Normal 29.9-35.2 [facility] Comment on above: Performed By: #### C BC ####[facility] [address] [place] [address]Dr. Gaurav Louis MCV (RBC) [Entitic vol] 92.1 fL Normal 81.0-99.0 [facility] Comment on above: Performed By: #### C BC ####[facility] [address] [place] [id number]. Gaurav Louis MONO # 0.5 103/ul Normal 0.3-0.8 [facility] Comment on above: Performed By: #### C BC ####[facility] [address] [place] [id number]. Gaurav Louis Monocytes/100 WBC (Bld) 8.0 % Normal 1.7-12.0 [facility] Comment on above: Performed By: #### C BC ####[facility] [id number] [place] [id number]. Gaurav Louis NEUT # 4.1 103/ul Normal 1.4-6.5 [facility] Comment on above: Performed By: #### C BC ####[facility] [id number] [place] [address]Dr. Gaurav Louis Neutrophils/100 WBC (Bld) 73.0 % Normal 43.0-75.0 [facility] Comment on above: Performed By: #### C BC ####[facility] [id number] [place] [id number]. Gaurav Louis Platelet mean volume (Bld) [Entitic vol] 10.0 fL Normal 9.5-13.5 [facility] Comment on above: Performed By: #### C BC ####[facility] [id number] [place] [id number]. Gaurav Louis PLT 184 103/ul Normal 150-450 [facility] Comment on above: Performed By: #### C BC ####[facility] [id number] [id number]. Gaurav Louis RBC 4.79 106/ul Normal 4.20-5.40 [facility] Comment on above: Performed By: #### C BC ####[facility] [address] [place] [address]Dr. Gaurav Louis WBC 5.6 103/ul Normal 4.0-11.0 [facility] Comment on above: Performed By: #### C BC ####[facility] [id number] [place], [place] [id number]. Gaurav Louis GLYCOHEMOGLOBIN A1Con 2022 ADA RECOMMENDATION SEE BELOW Normal [facility] Comment on above: Result Comment: ADA RECOMMENDED LIMIT 4.0 - 6.0 ADA THERAPEUTIC TARGET < 7.0 ACTION SUGGESTED > 7.0 Performed By: #### A 1C #### [facility] [address] [place] [address] Dr. Gaurav Louis Glucose [Mass/Vol] 148 mg/dL Normal [facility] Comment on above: Performed By: #### A 1C #### [facility] [address] [place] [address] Dr. Gaurav Louis HbA1c (Bld) [Mass fraction] 6.8 % Critically high 4.5-6.2 [facility] Comment on above: Performed By: #### A 1C #### [facility] [address] [place] [address] Dr. Gaurav Louis LIPID PROFILEon 03-14-2023 CHOL-HDL RATIO NORM SEE BELOW Normal [facility] Comment on above: Result Comment: 3.3 - 4.4 LOW RISK 4.4 - 7.1 AVERAGE RISK 7.1 - 11.0 MODERATE RISK >11.0 HIGH RISK Performed By: #### T TANIKA, LIPID, BMP #### [facility] [address] [place] [address] Dr. Gaurav Louis Cholesterol [Mass/Vol] 137 mg/dL Normal <=200 [facility] Comment on above: Performed By: #### T TANIKA, LIPID, BMP #### [facility] [address] [place] [address] Dr. Gaurav Louis Cholesterol in HDL [Mass/Vol] 63 mg/dL Critically high 40-60 [facility] Comment on above: Performed By: #### T TANIKA, LIPID, BMP #### [facility] [address] [place] [address] Dr. Gaurav Louis Cholesterol in LDL [Mass/Vol] 57.8 mg/dL Normal [facility] Comment on above: Performed By: #### T TANIKA, LIPID, BMP #### [facility] [address] [place] [address] Dr. Gaurav Louis Cholesterol.total/ Cholesterol in HDL [Mass ratio] 2.2 {ratio} Normal [facility] Comment on above: Performed By: #### T SH, LIPID, BMP #### [facility] [address] [address] [address] Gaurav Louis HDL NORMAL > or = 60 mg/dl - LO W CARDIOVASCULAR RISK <40 mg/dl - HIGH CARDIOVASCULAR RISK Normal [facility] Comment on above: Performed By: #### T SH, LIPID, BMP #### [facility] [address] [place] [address] Dr. Gaurav Louis LDL CALC NORMAL SEE BELOW Normal [facility] Comment on above: Result Comment: <100 mg/dl OPTIMAL 100 - 129 mg/dl NEAR OR ABOVE OPTIMAL 130 - 159 mg/dl BORDERLINE HIGH 160 - 189 mg/dl HIGH >190 mg/dl VERY HIGH Performed By: #### T TANIKA, LIPID, BMP #### [facility] [address] [place] [address] Dr. Gaurav Louis Triglyceride [Mass/Vol] 81 mg/dL Normal <=150 [facility] Comment on above: Performed By: #### T TANIKA, LIPID, BMP #### [facility] [address] [place] [address] Dr. Gaurav Louis VLDL CALC 16.2 mg/dL Normal [facility] Comment on above: Performed By: #### T TANIKA, LIPID, BMP #### [facility] [address] [place] [address] Dr. Gaurav Louis MICROALBUMIN, RAND URon 04- mALB 2.8 mg/L Normal <=30.0 [facility] Comment on above: Performed By: #### M ALBR #### [facility] [address] [place] [address] Dr. Gaurav Louis PROF CHEM 8 (BAS METB)on Anion gap [Moles/Vol] 13.4 mmol/L Normal [facility] Comment on above: Performed By: #### T TANIKA, LIPID, BMP #### [facility] [address] [place] [address] Dr. Gaurav Louis Calcium [Mass/Vol] 9.7 mg/dL Normal 8.5-10.1 [facility] Comment on above: Performed By: #### T TANIKA, LIPID, BMP #### [facility] [address] [address] [address] Gaurav Louis Chloride [Moles/Vol] 103 mmol/L Normal 98-107 [facility] Comment on above: Performed By: #### T TANIKA, LIPID, BMP #### [facility] [address] [address] [address] Gaurav Louis CO2 [Moles/Vol] 28.2 mmol/L Normal 21.0-32.0 [facility] Comment on above: Performed By: #### T TANIKA LIPID, BMP #### [facility] [address] [place] [address] Dr. Gaurav Louis Creatinine [Mass/Vol] 0.94 mg/dL Normal 0.55-1.02 [facility] Comment on above: Performed By: #### T TANIKA, LIPID, BMP #### [facility] [address] [place] [address] Dr. Gaurav Louis EGFR-AF SWAZI >60 Normal >=60 [facility] Comment on above: Performed By: #### T TANIKA LIPID, BMP #### [facility] [address] [place] [address] Dr. Gaurav Louis EGFR-NON AF SWAZI 57 mL/min/1.73m2 Critically low >=60 [facility] Comment on above: Performed By: #### T TANIKA, LIPID, BMP #### [facility] [address] [place] [address] Dr. Gaurav Louis Glucose [Mass/Vol] 155 mg/dL Critically high 74-106 [facility] Comment on above: Performed By: #### T TANIKA, LIPID, BMP #### [facility] [address] [place] [address] Dr. Gaurav Louis Potassium [Moles/Vol] 3.6 mmol/L Normal 3.5-5.1 [facility] Comment on above: Performed By: #### T TANIKA, LIPID, BMP #### [facility] [address] [address] [address] Gaurav Louis Sodium [Moles/Vol] 141 mmol/L Normal 136-145 [facility] Comment on above: Performed By: #### T TANIKA, LIPID, BMP #### [facility] [address] [address] [address] Gaurav Louis Urea nitrogen [Mass/Vol] 19.0 mg/dL Critically high 7.0-18.0 [facility] Comment on above: Performed By: #### T TANIKA, LIPID, BMP #### [facility] [address] [address] [address] Gaurav Louis Urea nitrogen/Creatinin e [Mass ratio] 20.2 mg/mg Normal [facility] Comment on above: Performed By: #### T TANIKA, LIPID, BMP #### [facility] [address] [place] [address] Dr. Gaurav Louis TSHon 03-14-2023 TSH 0.784 uIU/mL Normal 0.358-3.74 0 [facility] Comment on above: Performed By: #### T TANIKA, LIPID, BMP #### [facility] [address] [address] [address] Gaurav Louis SARS-CoV-2 (COVID-19) RNA NA A+probe Ql (Resp)on 09-11-2022 SARS-CoV-2 (COVID-19) RNA LANDEN+probe Ql (Unsp spec) Positive [employer] Other CBC AUTO DIFFon 07-06-2022 BASO # 0.1 103/ul Normal 0.0-0.1 [facility] Comment on above: Performed By: #### C BC #### [facility] [address] [place] [address] Dr. Gaurav Louis Basophils/100 WBC (Bld) 0.5 % Normal 0.2-2.0 [facility] Comment on above: Performed By: #### C BC #### [facility] [address] [place] [address] Dr. Gaurav Louis EO # 0.1 103/ul Normal 0.0-0.7 [facility] Comment on above: Performed By: #### C BC #### [facility] [address] [place] [address] Dr. Gaurav Louis Eosinophils/100 WBC (Bld) 0.7 % Critically low 0.9-7.0 [facility] Comment on above: Performed By: #### C BC #### [facility] [address] [place] [address] Dr. Gaurav Louis Erythrocyte distribution width (RBC) [Ratio] 22.5 % Critically high 11.0-15.0 [facility] Comment on above: Result Comment: 2+ a nisocytosis Performed By: #### C BC #### [facility] [address] [place] [address] Dr. Gaurav Louis Hematocrit (Bld) [Volume fraction] 41.4 % Normal 36.0-48.0 [facility] Comment on above: Performed By: #### C BC #### [facility] [address] [place] [address] Dr. Gaurav Louis Hemoglobin (Bld) [Mass/Vol] 13.4 g/dL Normal 12.0-16.0 [facility] Comment on above: Performed By: #### C BC #### [facility] [address] [place] [address] Dr. Gaurav Louis IG # 0.04 10e3/ul Critically high 0.00-0.03 [facility] Comment on above: Performed By: #### C BC #### [facility] [address] [place] [address] Dr. Gaurav Louis IG % 0.4 % Normal 0.0-0.5 [facility] Comment on above: Performed By: #### C BC #### [facility] [address] [place] [address] Dr. Gaurav Louis LYMPH # 1.1 103/ul Critically low 1.2-3.8 [facility] Comment on above: Performed By: #### C BC #### [facility] [address] [place] [address] Dr. Gaurav Louis Lymphocytes/100 WBC (Bld) 10.2 % Critically low 20.5-60.0 [facility] Comment on above: Performed By: #### C BC #### [facility] [address] [place] [address] Dr. Gaurav Louis MANUAL DIFF REQ NO Normal [facility] Comment on above: Performed By: #### C BC #### [facility] [address] [place] [address] Dr. Gaurav Louis MCH (RBC) [Entitic mass] 28.3 pg Normal 26.7-34.0 [facility] Comment on above: Performed By: #### C BC #### [facility] [address] [place] [address] Dr. Gaurav Louis MCHC (RBC) [Mass/Vol] 32.4 g/dL Normal 29.9-35.2 [facility] Comment on above: Performed By: #### C BC #### [facility] [address] [place] [address] Dr. Gaurav Louis MCV (RBC) [Entitic vol] 87.5 fL Normal 81.0-99.0 [facility] Comment on above: Performed By: #### C BC #### [facility] [address] [place] [address] Dr. Gaurav Louis MONO # 0.8 103/ul Normal 0.3-0.8 [facility] Comment on above: Performed By: #### C BC #### [facility] [address] [place] [address] Dr. Gaurav Louis Monocytes/100 WBC (Bld) 7.3 % Normal 1.7-12.0 [facility] Comment on above: Performed By: #### C BC #### [facility] [address] [place] [address] Dr. Gaurav Louis NEUT # 8.4 103/ul Critically high 1.4-6.5 [facility] Comment on above: Performed By: #### C BC #### [facility] [address] [place] [address] Dr. Gaurav Louis Neutrophils/100 WBC (Bld) 80.9 % Critically high 43.0-75.0 [facility] Comment on above: Performed By: #### C BC #### [facility] [address] [address] [address] Gaurav Louis Platelet mean volume (Bld) [Entitic vol] 10.0 fL Normal 9.5-13.5 [facility] Comment on above: Performed By: #### C BC #### [facility] [address] [address] [address] Gaurav Louis PLT 178 103/ul Normal 150-450 [facility] Comment on above: Performed By: #### C BC #### [facility] [address] [address] [address] Gaurav Louis RBC 4.73 106/ul Normal 4.20-5.40 [facility] Comment on above: Performed By: #### C BC #### [facility] [address] [address] [address] Gaurav Louis WBC 10.3 103/ul Normal 4.0-11.0 [facility] Comment on above: Performed By: #### C BC #### [facility] [address] [place] [address] Dr. Gaurav Louis US SINGLE QUAD LT [...] NIDA ALVAREZ Date: 2022-04-30 18:10 Normal [facility] CBC AUTO DIFFon 04-13-2022 BASO # 0.0 103/ul Normal 0.0-0.1 [facility] Comment on above: Performed By: #### C BC #### [facility] [address] [address] [address] Gaurav Louis Basophils/100 WBC (Bld) 0.6 % Normal 0.2-2.0 [facility] Comment on above: Performed By: #### C BC #### [facility] [address] [place] [address] Dr. Gaurav Louis EO # 0.1 103/ul Normal 0.0-0.7 [facility] Comment on above: Performed By: #### C BC #### [facility] [address] [place] [address] Dr. Gaurav Louis Eosinophils/100 WBC (Bld) 1.7 % Normal 0.9-7.0 [facility] Comment on above: Performed By: #### C BC #### [facility] [address] [place] [address] Dr. Gaurav Louis Erythrocyte distribution width (RBC) [Ratio] 21.1 % Critically high 11.0-15.0 [facility] Comment on above: Performed By: #### C BC #### [facility] [address] [place] [address] Dr. Gaurav Louis Hematocrit (Bld) [Volume fraction] 33.6 % Critically low 36.0-48.0 [facility] Comment on above: Performed By: #### C BC #### [facility] [address] [place] [address] Dr. Gaurav Louis Hemoglobin (Bld) [Mass/Vol] 10.0 g/dL Critically low 12.0-16.0 [facility] Comment on above: Performed By: #### C BC #### [facility] [address] [place] [address] Dr. Gaurav Louis IG # 0.02 10e3/ul Normal 0.00-0.03 [facility] Comment on above: Performed By: #### C BC #### [facility] [address] [place] [address] Dr. Gaurav Louis IG % 0.4 % Normal 0.0-0.5 [facility] Comment on above: Performed By: #### C BC #### [facility] [address] [place] [address] Dr. Gaurav Louis LYMPH # 1.0 103/ul Critically low 1.2-3.8 [facility] Comment on above: Performed By: #### C BC #### [facility] [address] [place] [address] Dr. Gaurav Louis Lymphocytes/100 WBC (Bld) 18.3 % Critically low 20.5-60.0 [facility] Comment on above: Performed By: #### C BC #### [facility] [address] [place] [address] Dr. Gaurav Louis MANUAL DIFF REQ NO Normal [facility] Comment on above: Performed By: #### C BC #### [facility] [address] [place] [address] Dr. Gaurav Louis MCH (RBC) [Entitic mass] 22.8 pg Critically low 26.7-34.0 [facility] Comment on above: Performed By: #### C BC #### [facility] [address] [place] [address] Dr. Gaurav Louis MCHC (RBC) [Mass/Vol] 29.8 g/dL Critically low 29.9-35.2 [facility] Comment on above: Performed By: #### C BC #### [facility] [address] [place] [address] Dr. Gaurav Louis MCV (RBC) [Entitic vol] 76.7 fL Critically low 81.0-99.0 [facility] Comment on above: Performed By: #### C BC #### [facility] [address] [place] [address] Dr. Gaurav Louis MONO # 0.5 103/ul Normal 0.3-0.8 [facility] Comment on above: Performed By: #### C BC #### [facility] [address] [place] [address] Dr. Gaurav Louis Monocytes/100 WBC (Bld) 8.8 % Normal 1.7-12.0 [facility] Comment on above: Performed By: #### C BC #### [facility] [address] [place] [address] Dr. Gaurav Louis NEUT # 3.8 103/ul Normal 1.4-6.5 [facility] Comment on above: Performed By: #### C BC #### [facility] [address] [place], [place] [address] Dr. Gaurav Louis Neutrophils/100 WBC (Bld) 70.2 % Normal 43.0-75.0 [facility] Comment on above: Performed By: #### C BC #### [facility] [address] [address] [address] Gaurav Louis Platelet mean volume (Bld) [Entitic vol] 9.4 fL Critically low 9.5-13.5 [facility] Comment on above: Performed By: #### C BC #### [facility] [address] [address] [address] Gaurav Louis PLT 226 103/ul Normal 150-450 [facility] Comment on above: Performed By: #### C BC #### [facility] [address] [address] [address] Gaurav Louis RBC 4.38 106/ul Normal 4.20-5.40 [facility] Comment on above: Performed By: #### C BC #### [facility] [address] [address] [address] Gaurav Louis WBC 5.4 103/ul Normal 4.0-11.0 [facility] Comment on above: Performed By: #### C BC #### [facility] [address] [address] [address] Gaurav Louis XR ankle LT min 3V*on 2020 XR ankle LT min 3V* [facility] [employer] Other XR ankle LT min 3V* [facility] [employer] Other XR ankle LT min 3V* [address] [place] [address] [employer] Other XR ankle LT min 3V* [place] [address] [employer] Other XR ankle LT min 3V* XRay Report [employer] Other XR ankle LT min 3V* Signed [employer] Other XR ankle LT min 3V* Patient: Sandra Tavarez MR#: [id number] [employer] Other XR ankle LT min 3V* 7 [employer] Other XR ankle LT min 3V* : 1940 Acct:[id number] [employer] Other XR ankle LT min 3V* Age/Sex: 80 / F ADM Date: 11/07/21 [employer] Other XR ankle LT min 3V* Loc: XDUCLY Room: Type: [facility] [employer] Other XR ankle LT min 3V* Attending Dr: Quita ZUNIGA [employer] Other XR ankle LT min 3V* Ordering Provider: NADIA Winslow [employer] Other XR ankle LT min 3V* Date of Service: 11/07/21 [employer] Other XR ankle LT min 3V* XR/XR ankle LT min 3V*: Acute left ankle pain [employer] Other XR ankle LT min 3V* Copies to: NADIA Winslow [employer] Other XR ankle LT min 3V* XR ankle LT min 3V* 11/07/2021 12:15 PM [employer] Other XR ankle LT min 3V* SIGNS AND SYMPTOMS: Pain along the left Achilles and lateral aspect of the calcaneus, limited range [employer] Other XR ankle LT min 3V* of motion [employer] Other XR ankle LT min 3V* PROTOCOL: Frontal, lateral, and oblique radiographs of the left ankle [employer] Other XR ankle LT min 3V* COMPARISON: None [employer] Other XR ankle LT min 3V* FINDINGS: [employer] Other XR ankle LT min 3V* The ankle mortise is preserved. There is cortical irregularity along the inferior margin of the [employer] Other XR ankle LT min 3V* lateral malleolus which may represent sequelae of a previous avulsive-type injury. There is soft [employer] Other XR ankle LT min 3V* tissue swelling diffusely but greatest along the dorsal soft tissues. There is plantar surface [employer] Other XR ankle LT min 3V* calcaneal spurring. Vascular calcifications are present. Degenerative changes are noted in the [employer] Other XR ankle LT min 3V* midfoot. [employer] Other XR ankle LT min 3V* XR/XR ankle LT min 3V* [employer] Other XR ankle LT min 3V* IMPRESSION: [employer] Other XR ankle LT min 3V* No acute displaced fracture. [employer] Other XR ankle LT min 3V* Diffuse soft tissue swelling greatest posteriorly. [employer] Other XR ankle LT min 3V* There is plantar surface calcaneal spurring. [employer] Other XR ankle LT min 3V* Impression dictated by: Tex Diaz M.D.11/07/2021 12:50 PM [employer] Other XR ankle LT min 3V* Dictation Location: [place] [address] [employer] Other XR ankle LT min 3V* Transcribed By: SHAHIDA 11/07/21 1250 [employer] Other XR ankle LT min 3V* Dictated By: Tex Diaz II, MD 11/07/21 1248 [employer] Other XR ankle LT min 3V* Signed By: [employer] Other XR ankle LT min 3V* 11/07/21 1250 [employer] Other [facility] Preoperative Recordon 0 06-04-2020 [facility] Preoperative Record [facility] Pre-Op Record Summary Primary Physician: FERNANDO SILVA Finalized Date/Time: 06/04/20 08:46:37 Pt. Name: SANDRA TAVAREZ /Sex: 1940 FEMALE Med Rec #: [id number] Physician: FERNANDO SILVA Financial #: [id number] Pt. Type: I Room/Bed: [facility] Admit/Disch: 05/23/20 09:44:18 - 05/27/20 15:15:00 Institution: [...] Signed By: Stacy Pena RN 06/04/20 08:46 [facility] Consent Formson 05-28-2020 Consent Forms [id number]#1.00OTGTIFF [facility] Outside Recordson 05-28-2020 Outside Records [id number][facility] [id number]#[facility] Provider Orderson 05-28-2020 Provider Orders [id number]#[facility] Telemetry Stripson 0 Telemetry Strips [id number]#[facility] .Auto Diff 105-27-2020 Auto Ida % 13 % High 12-09 [facility] Comment on above: Performed By: #### 1 [id number], [id number] #### [facility] (DEFAULT) [address] [place] [address] Baso Abs# 0.0 x10 Normal 0.0-0.2 [facility] Comment on above: Performed By: #### 1 [id number], [id number] #### [facility] (DEFAULT) [address] [place] [address] Basophils/100 WBC (Bld) 0.3 % Normal 0.2-2.0 [facility] Comment on above: Performed By: #### 1 [id number], [id number] #### [facility] (DEFAULT) [address] [place] [address]648 Eos Abs# 0.1 x10 Normal 0.0-0.4 [facility] Comment on above: Performed By: #### 1 [id number], [id number], [id number] #### [facility] (DEFAULT) [address] [place] [address] Eosinophils/100 WBC (Bld) 1.4 % Normal 0.9-4.0 [facility] Comment on above: Performed By: #### 1 [id number], [id number], [id number] #### [facility] (DEFAULT) [address] [place] [address] 78167 Lymphocytes (Bld) [#/Vol] 1.4 x10 Normal 1.3-2.9 [facility] Comment on above: Performed By: #### 1 [id number], [id number], [id number] #### [facility] (DEFAULT) [address] [place] [address] Lymphocytes/100 WBC (Bld) 16 % Normal 14-48 [facility] Comment on above: Performed By: #### 1 [id number], [id number], [id number] #### [facility] (DEFAULT) [address] [place] [address] Ida Abs# 1.1 x10 High 0.0-0.8 [facility] Comment on above: Performed By: #### 1 [id number], [id number], [id number] #### [facility] (DEFAULT) [address] [place] [address] Neut Abs# 6.1 x10 Normal 1.5-9.2 [facility] Comment on above: Performed By: #### 1 [id number], [id number], [id number] #### [facility] (DEFAULT) [address] [place] [address] Neutrophils/100 WBC (Bld) 70 % Normal 44-88 [facility] Comment on above: Performed By: #### 1 [id number], [id number], 4892872 #### [facility] (DEFAULT) [address] [place] [address] Standardon 05-27-2020 eGFR Non AA >60 [facility] Comment on above: Performed By: #### 1 [id number], 90074725, 2757011 #### [facility] (DEFAULT) [address] [place] [address] eGFR AA >60 [facility] Comment on above: Result Comment: Asphalt Smoother ghazal Kidney disease could be indicated at eGFRs of less than 60 ml/min/1.73m2. Kidney Failure is indicated at less than 15 ml/min/1.73m2 Performed By: #### 1 [id number], 91999560, 1144925 #### [facility] (DEFAULT) [address] [place] [address] 44132 Anion gap [Moles/Vol] 15.0 mmol/L Normal 5.0-19.0 [facility] Comment on above: Performed By: #### 1 [id number], 88963466, 9229860 #### [facility] (DEFAULT) [address] [place] [address] 77400 Calcium [Mass/Vol] 9.2 mg/dL Normal 8.9-10.3 [facility] Comment on above: Performed By: #### 1 [id number], 70561968, 7084028 #### [facility] (DEFAULT) [address] [place] [address] 81274 Chloride [Moles/Vol] 101 mmol/L Normal 101-111 [facility] Comment on above: Performed By: #### 1 [id number], 87629087, 3799499 #### [facility] (DEFAULT) [address] [place] [address] 27781 CO2 [Moles/Vol] 26 mmol/L Normal 21-32 [facility] Comment on above: Performed By: #### 1 [id number], 99328810, 6432639 #### [facility] (DEFAULT) [address] [place] [address] 69384 Creatinine [Mass/Vol] 0.58 mg/dL Low 0.60-1.30 [facility] Comment on above: Performed By: #### 1 [id number], 59188511, 8949584 #### [facility] (DEFAULT) [address] [place] [address] 49238 Glucose [Mass/Vol] 120.0 mg/dL High 74.0-118.0 [facility] Comment on above: Performed By: #### 1 [id number], 89832841, 5237626 #### [facility] (DEFAULT) [address] [place] [address] 61319 Osmolality [Osmolality] 279 mOsm/L [facility] Comment on above: Performed By: #### 1 [id number], 39145047, 6918136 #### [facility] (DEFAULT) [address] [place] [address] 94252 Potassium [Moles/Vol] 3.7 mmol/L Normal 3.6-5.1 [facility] Comment on above: Performed By: #### 1 [id number], 03962695, 4606645 #### [facility] (DEFAULT) [address] [place] [address] 82638 Sodium [Moles/Vol] 138.0 mmol/L Normal 136.0-144 . 0 [facility] Comment on above: Performed By: #### 1 [id number], 06182188, 7821036 #### [facility] (DEFAULT) [address] [place] [address] 68625 Urea nitrogen [Mass/Vol] 19 mg/dL Normal 8-26 [facility] Comment on above: Performed By: #### 1 [id number], 12417579, 7926528 #### [facility] (DEFAULT) [address] [place] [address] Urea nitrogen/Creatinin e [Mass ratio] 33.0 mg/mg High 4.6-16.2 [facility] Comment on above: Performed By: #### 1 [id number], 45497283, 8444619 #### [facility] (DEFAULT) [address] [place], [place] [address] CBC w/ Auto Diffon 0 Erythrocyte distribution width (RBC) [Ratio] 18.4 % High 11.5-15.0 [facility] Comment on above: Performed By: #### 1 [id number], 06212537, 2397531 #### [facility] (DEFAULT) [address] [place] [address] 84776 Hematocrit (Bld) [Volume fraction] 29.7 % Low 33.7-40.4 [facility] Comment on above: Performed By: #### 1 [id number], 50383005, 3320375 #### [facility] (DEFAULT) [address] [place] [address] Hemoglobin (Bld) [Mass/Vol] 9.0 g/dL Low 11.3-15.9 [facility] Comment on above: Performed By: #### 1 [id number], 46971860, 4942833 #### [facility] (DEFAULT) [address] [place] [address] 73885 Man Diff? Auto Normal [facility] Comment on above: Performed By: #### 1 [id number], 17130533, 8122476 #### [facility] (DEFAULT) [address] [place] [address] 48333 MCH (RBC) [Entitic mass] 25 pg Normal 24-34 [facility] Comment on above: Performed By: #### 1 [id number], 80775883, 2390724 #### [facility] (DEFAULT) [address] [place] [address] 91142 MCHC (RBC) [Mass/Vol] 30 g/dL Normal 26-37 [facility] Comment on above: Performed By: #### 1 [id number], 59612287, 9420315 #### [facility] (DEFAULT) [address] [place] [address] 26532 MCV (RBC) [Entitic vol] 82 fL Normal 81-100 [facility] Comment on above: Performed By: #### 1 [id number], 94563783, 9988591 #### [facility] (DEFAULT) [address] [place] [address] 05209 Platelet mean volume (Bld) [Entitic vol] 10.7 fL High 6.3-10.2 [facility] Comment on above: Performed By: #### 1 [id number], 31578472, 2560587 #### [facility] (DEFAULT) [address] [place] [address] 41155 Platelets (Bld) [#/Vol] 230 x10 Normal 138-427 [facility] Comment on above: Performed By: #### 1 [id number], 36056024, 5512407 #### [facility] (DEFAULT) [address] [place] [address] 28336 RBC (Bld) [#/Vol] 3.60 x10 Low 3.70-5.30 [facility] Comment on above: Performed By: #### 1 [id number], 69920679, 7795322 #### [facility] (DEFAULT) [address] [place] [address] WBC (Bld) [#/Vol] 8.8 x10 [facility] Comment on above: Performed By: #### 1 [id number], 93484132, 5505237 #### [facility] (DEFAULT) [address] [place] [address] Coding Summaryon 05-27-2020 Coding Summary CODING DATE: 020 FINAL [facility] STATUS: Transfer to Correction PAYOR: Medicare Grouper: 470 MS-DRG MAJOR HIP AND KNEE JOINT REPLACEMENT OR REATTACHMENT OF LOWER EXTREMITY W/O SENIOR LIVING Low Trim 0 High Trim 999 ADMIT [...] venous thrombosis and embolism Z79.01 1 intermediate (current) use of anticoagulants G47.33 Y Obstructive sleep apnea (adult) (pediatric) Z99.89 1 Dependence on other enabling machines and devices G40.909 Y Epilepsy, unspecified, not intractable, without status epilepticus Z79.899 1 Other fdc (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 therapy E66.01 Y Morbid (severe) obesity due to excess calories PROCEDURES DOCTOR NAME DATE [id number] Replacement of Left Knee Joint SUBHASH FERNANDO 05/23/2020 with Oxidized Zirconium on Polyethylene Synthetic Substitute, Cemented, Open Approach 46753B4 Transfusion of Nonautologous 05/25/2020 Red Blood Cells into Peripheral Vein, Percutaneous Approach NOTE: The code number assigned matches the documented diagnosis and / or procedure in the patient's chart. However, the narrative phrase printed from the coding software may appear abbreviated, or result in slightly different terminology. Revised Coded By: Jeane Mccormick Revised Date Saved: 05/27/2020 06:30 pm Normal [facility] Education Noteon 05-27-2020 Education Note Education [...] #8 follow up in office with physician assistant professor of german Octavio Centeno as scheduled #9 NOMS 360 [...] the nearest hospital's emergency services department. Normal [facility] Inpatient Patient Summaryon 05-27-2020 Inpatient Patient Summary [place] [id number] Patient Discharge Instructions Name: ASNDRA TAVAREZ : 1940 Patient Address: [address] [place] [address] Primary Care Provider: Name: Robert Vail After you are discharged if you find you have any questions, please, call [phone] ext [phone] to speak to a nurse. Discharge Diagnosis: Acute pain of left knee Prescription Information: If you have been given a prescription for narcotics, seek immediate medical attention if you have any difficulty breathing or any sudden status changes such as confusion and sleepiness. If you or anyone you know is experiencing suicidal thoughts, mental health, alcohol and/or drug addiction problems; contact the [facility] 20/06 Crisis Hotline -Text 4HBAW to 827775. If you received any narcotics, sedation, or [...] business decisions or sign any legal documents [facility] would like to thank you for allowing us to assist you with your healthcare needs. The following includes patient education materials and information regarding your injury/illness. SANDRA TAVAREZ has been given the following list of follow-up instructions, prescriptions, and patient education materials: Follow-up Instructions With: Address: When: Robert Vail [address] [place] [address] Business (1) With: Address: When: Tom Centeno [address] [place] [address], [facility] [address] [place] [address] [facility] (1) 06/06/2020 1:00 PM Medications During the course of your visit, your medication list was updated with the most current information. The details of those changes are reflected below: New Medications Printed Prescriptions acetaminophen-oxycodone (Percocet 5/325 oral tablet) 1 tab(s) Oral [...] list that you can keep with you. acetaminophen-oxycodone (Percocet 5/325 oral tablet) 1 tab(s) Oral [...] #8 follow up in office with physician assistant professor of german Octavio Centeno as scheduled #9 NOMS 360 [...] Disease Control and Prevention July 2014 Normal [facility] POCT Glucose Levelon 020 Glucose [Mass/Vol] 125 mg/dL High 74-118 [facility] Comment on above: Performed By: #### 4 [id number] ####[facility] (DEFAULT)[address] [place] [address] 10465 PTon 05-27-2020 INR Coag (PPP) [Relative time] 2.29 {INR} High 0.91-1.11 [facility] Comment on above: Performed By: #### 1 [id number], [id number], 0775816 #### [facility] (DEFAULT) [address] [place] [address] 78273 PT Coag (PPP) [Time] 22.2 second(s) High 9.7-11.8 [facility] Comment on above: Performed By: #### 1 [id number], [id number], 0822181 #### [facility] (DEFAULT) [address] [place] [address] 57206 Progress Note - Nurseon 04-30 Progress Note - Nurse Dressing change per Dr Moon. TORRI hose applied to both lower legs. Daughter here for transfer to the [facility]. Discharged to usp per private vehicle with daughter. PT and OT assisted patient into car. [Electronically Signed on: 05/27/2020 18:20 EDT] Mayra Tafoya RN [Verified on: 05/27/2020 18:20 EDT] Mayra Tafoya RN [facility] Progress Note-Physicianon Progress Note-Physician DATE OF ORTHOPEDIC [...] The patient will be going to [facility] today. CONDITION ON DISCHARGE: Stable. Tino Moon DO JOB #: [id number] bk [Electronically Signed on: 05/28/2020 10:10 EDT] TINO MOON DO [Verified on: 05/28/2020 10:10 EDT] TINO MOON DO [Transcribed on: 05/27/2020 14:44 EDT] [facility] Progress Note-Physician DATE OF POSTOPERATIVE ORTHOPEDIC PROGRESS [...] PROGNOSIS: Fair. Tino Moon DO JOB #: [id number] [Electronically Signed on: 05/27/2020 12:30 EDT] TINO MOON DO [Verified on: 05/27/2020 12:30 EDT] TINO MOON DO [Transcribed on: 05/27/2020 10:45 EDT] [facility] Normal [facility] .Auto Diff 105-26-2020 Auto Ida % 16 % High 12 [facility] Comment on above: Performed By: #### 1 [id number], 85609596, 1126514 #### [facility] (DEFAULT) [address] [place] [address] Baso Abs# 0.0 x10 Normal 0.0-0.2 [facility] Comment on above: Performed By: #### 1 [id number], 41790262, 5566448 #### [facility] (DEFAULT) [address] [place] [address] 68079 Basophils/100 WBC (Bld) 0.2 % Normal 0.2-2.0 [facility] Comment on above: Performed By: #### 1 [id number], 28674606, 7738570 #### [facility] (DEFAULT) [address] [place] [address] 51989 Eos Abs# 0.0 x10 Normal 0.0-0.4 [facility] Comment on above: Performed By: #### 1 [id number], 74571758, 8359686 #### [facility] (DEFAULT) [address] [place] [address] 67995 Eosinophils/100 WBC (Bld) 0.5 % Low 0.9-4.0 [facility] Comment on above: Performed By: #### 1 [id number], 38260021, 4714948 #### [facility] (DEFAULT) [address] [place] [address] 88390 Lymphocytes (Bld) [#/Vol] 1.2 x10 Low 1.3-2.9 [facility] Comment on above: Performed By: #### 1 [id number], 72556282, 0830848 #### [facility] (DEFAULT) [address] [place] [address] 29351 Lymphocytes/100 WBC (Bld) 15 % Normal 14-48 [facility] Comment on above: Performed By: #### 1 [id number], 27418545, 6626192 #### [facility] (DEFAULT) [address] [place] [address] 87683 Ida Abs# 1.3 x10 High 0.0-0.8 [facility] Comment on above: Performed By: #### 1 [id number], 07557085, 3994774 #### [facility] (DEFAULT) [address] [place] [address] 20760 Neut Abs# 5.6 x10 Normal 1.5-9.2 [facility] Comment on above: Performed By: #### 1 [id number], 40449704, 7787026 #### [facility] (DEFAULT) [address] [place] [address] 87031 Neutrophils/100 WBC (Bld) 68 % Normal 44-88 [facility] Comment on above: Performed By: #### 1 [id number], 04172054, 0517944 #### [facility] (DEFAULT) [address] [place] [address] CBC w/ Auto Diffon 0 Erythrocyte distribution width (RBC) [Ratio] 17.9 % High 11.5-15.0 [facility] Comment on above: Performed By: #### 1 [id number], 99491334, 7821273 #### [facility] (DEFAULT) [address] [place] [address] Hematocrit (Bld) [Volume fraction] 28.5 % Low 33.7-40.4 [facility] Comment on above: Performed By: #### 1 [id number], 98465649, 2880793 #### [facility] (DEFAULT) [address] [place] [address] 01687 Hemoglobin (Bld) [Mass/Vol] 8.5 g/dL Low 11.3-15.9 [facility] Comment on above: Performed By: #### 1 [id number], 74855941, 9051904 #### [facility] (DEFAULT) [address] [place] [address] 34023 Man Diff? Auto Normal [facility] Comment on above: Performed By: #### 1 [id number], 13708664, 0298832 #### [facility] (DEFAULT) [address] [place] [address] 45191 MCH (RBC) [Entitic mass] 24 pg Normal 24-34 [facility] Comment on above: Performed By: #### 1 [id number], 70842390, 8535730 #### [facility] (DEFAULT) [address] [place] [address] 98225 MCHC (RBC) [Mass/Vol] 30 g/dL Normal 26-37 [facility] Comment on above: Performed By: #### 1 [id number], 48804738, 3520567 #### [facility] (DEFAULT) [address] [place] [address] 32612 MCV (RBC) [Entitic vol] 81 fL Normal 81-100 [facility] Comment on above: Performed By: #### 1 [id number], 09050477, 2312428 #### [facility] (DEFAULT) [address] [place] [address] 23060 Platelet mean volume (Bld) [Entitic vol] 10.5 fL High 6.3-10.2 [facility] Comment on above: Performed By: #### 1 [id number], 52596990, 8441924 #### [facility] (DEFAULT) [address] [place] [address] 22508 Platelets (Bld) [#/Vol] 178 x10 Normal 138-427 [facility] Comment on above: Performed By: #### 1 [id number], 97784555, 2606682 #### [facility] (DEFAULT) [address] [place] [address] 28581 RBC (Bld) [#/Vol] 3.50 x10 Low 3.70-5.30 [facility] Comment on above: Performed By: #### 1 [id number], 88037868, 6996464 #### [facility] (DEFAULT) [address] [place] [address] 55893 WBC (Bld) [#/Vol] 8.2 x10 [facility] Comment on above: Performed By: #### 1 [id number], 76572575, 3520304 #### [facility] (DEFAULT) [address] [place] [address] 31842 Extra Greenon 05-26-2020 Tube Collected Yes [facility] Comment on above: Performed By: #### 1 [id number], 72867543, 8092032 #### [facility] (DEFAULT) [address] [place] [address] 43274 History and Physicalon 05-26 History and Physical [id number] [facility] Nutrition Noteon 05-26-2020 Nutrition Note Per intake records, Pt avg 50% of past 6 meals with inconsistent supplement intake avg 1X/d. Last BM on 05/23, will offer prune juice. Post op anemia noted; per ortho 1unit PRBC given. CXR obtained for fever, dyspnea which was wnl. Possible discharge later today. Will continue to monitor. [facility] PTon 05-26-2020 INR Coag (PPP) [Relative time] 2.54 {INR} High 0.91-1.11 [facility] Comment on above: Performed By: #### 1 [id number], 36076636, 4165478 #### [facility] (DEFAULT) [address] [place] [address] 17756 PT Coag (PPP) [Time] 24.4 second(s) High 9.7-11.8 [facility] Comment on above: Performed By: #### 1 [id number], 75524734, 2913597 #### [facility] (DEFAULT) [address] [place] [address] 15125 Progress Note-Physicianon Progress Note-Physician DATE OF ORTHOPEDIC [...] is good. Tino Moon DO JOB #: [id number] [Electronically Signed on: 05/26/2020 13:12 EDT] TINO MOON DO [Verified on: 05/26/2020 13:12 EDT] TINO MOON DO [Transcribed on: 05/26/2020 10:28 EDT] [facility] XR Chest 1 View Frontalon XR Chest [...] MD 05/26/20 3:37 pm Technologist: AUGUSTO LEE Normal [facility] .Auto Diff 05-25-2020 Auto Ida % 17 % High -12 [facility] Comment on above: Performed By: #### 1 [id number], 71109789, 3951290 #### [facility] (DEFAULT) [address] [place] [address] 84510 Baso Abs# 0.0 x10 Normal 0.0-0.2 [facility] Comment on above: Performed By: #### 1 [id number], 36835852, 8093165 #### [facility] (DEFAULT) [address] [place] [address] 27199 Basophils/100 WBC (Bld) 0.3 % Normal 0.2-2.0 [facility] Comment on above: Performed By: #### 1 [id number], 20732507, 2554617 #### [facility] (DEFAULT) [address] [place] [address] 29385 Eos Abs# 0.0 x10 Normal 0.0-0.4 [facility] Comment on above: Performed By: #### 1 [id number], 27832588, 4335465 #### [facility] (DEFAULT) [address] [place] [address] 08545 Eosinophils/100 WBC (Bld) 0.1 % Low 0.9-4.0 [facility] Comment on above: Performed By: #### 1 [id number], 46530349, 2096076 #### [facility] (DEFAULT) [address] [place] [address] 05120 Lymphocytes (Bld) [#/Vol] 0.8 x10 Low 1.3-2.9 [facility] Comment on above: Performed By: #### 1 [id number], 64459072, 7066533 #### [facility] (DEFAULT) [address] [place] [address] Lymphocytes/100 WBC (Bld) 11 % Low 14-48 [facility] Comment on above: Performed By: #### 1 [id number], 88952407, 4624424 #### [facility] (DEFAULT) [address] [place] [address] Ida Abs# 1.1 x10 High 0.0-0.8 [facility] Comment on above: Performed By: #### 1 [id number], 19136468, 7413558 #### [facility] (DEFAULT) [address] [place] [address] Neut Abs# 4.8 x10 Normal 1.5-9.2 [facility] Comment on above: Performed By: #### 1 [id number], 30909151, 3895133 #### [facility] (DEFAULT) [address] [place] [address] Neutrophils/100 WBC (Bld) 72 % Normal 44-88 [facility] Comment on above: Performed By: #### 1 [id number], 42474234, 7643434 #### [facility] (DEFAULT) [address] [place] [address] CBC w/ Auto Diffon 0 Erythrocyte distribution width (RBC) [Ratio] 17.6 % High 11.5-15.0 [facility] Comment on above: Performed By: #### 1 [id number], 67047845, 5827001 #### [facility] (DEFAULT) [address] [place] [address] Hematocrit (Bld) [Volume fraction] 27.4 % Low 33.7-40.4 [facility] Comment on above: Performed By: #### 1 [id number], 99701612, 5558480 #### [facility] (DEFAULT) [address] [place] [address] Hemoglobin (Bld) [Mass/Vol] 8.1 g/dL Low 11.3-15.9 [facility] Comment on above: Performed By: #### 1 [id number], 59592044, 1828061 #### [facility] (DEFAULT) [address] [place] [address] Man Diff? Auto Normal [facility] Comment on above: Performed By: #### 1 [id number], 58052874, 5051551 #### [facility] (DEFAULT) [address] [place] [address] MCH (RBC) [Entitic mass] 24 pg Normal 24-34 [facility] Comment on above: Performed By: #### 1 [id number], 79800993, 8755042 #### [facility] (DEFAULT) [address] [place] [address] MCHC (RBC) [Mass/Vol] 30 g/dL Normal 26-37 [facility] Comment on above: Performed By: #### 1 [id number], 83874925, 8001019 #### [facility] (DEFAULT) [address] [place] [address] MCV (RBC) [Entitic vol] 80 fL Low 81-100 [facility] Comment on above: Performed By: #### 1 [id number], 91212504, 7716250 #### [facility] (DEFAULT) [address] [place] [address] Platelet mean volume (Bld) [Entitic vol] 10.8 fL High 6.3-10.2 [facility] Comment on above: Performed By: #### 1 [id number], 03632367, 6585885 #### [facility] (DEFAULT) [address] [place] [address] Platelets (Bld) [#/Vol] 186 x10 Normal 138-427 [facility] Comment on above: Performed By: #### 1 [id number], 13799650, 0301728 #### [facility] (DEFAULT) [address] [place] [address] 07874 RBC (Bld) [#/Vol] 3.42 x10 Low 3.70-5.30 [facility] Comment on above: Performed By: #### 1 [id number], 90156940, 7912895 #### [facility] (DEFAULT) [address] [place] [address] 51940 WBC (Bld) [#/Vol] 6.8 x10 Normal 3.5-10.5 [facility] Comment on above: Performed By: #### 1 [id number], 71584863, 8929615 #### [facility] (DEFAULT) [address] [place] [address] 38584 Electrolyte Panel Standardon 05-25-2020 Anion gap [Moles/Vol] 12.0 mmol/L Normal 5.0-19.0 [facility] Comment on above: Performed By: #### 1 [id number], 79582022, 7744093 #### [facility] (DEFAULT) [address] [place] [address] 44060 Chloride [Moles/Vol] 102 mmol/L Normal 101-111 [facility] Comment on above: Performed By: #### 1 [id number], 50141143, 8274446 #### [facility] (DEFAULT) [address] [place] [address] 58192 CO2 [Moles/Vol] 28 mmol/L Normal 21-32 [facility] Comment on above: Performed By: #### 1 [id number], 43669079, 5666813 #### [facility] (DEFAULT) [address] [place] [address] 90308 Potassium [Moles/Vol] 4.0 mmol/L Normal 3.6-5.1 [facility] Comment on above: Performed By: #### 1 [id number], 19691976, 9466031 #### [facility] (DEFAULT) [address] [place] [address] 77153 Sodium [Moles/Vol] 138.0 mmol/L Normal 136.0-144 . 0 [facility] Comment on above: Performed By: #### 1 [id number], 56654781, 0292230 #### [facility] (DEFAULT) [address] [place] [address] 86171 PTon 05-25-2020 INR Coag (PPP) [Relative time] 1.89 {INR} High 0.91-1.11 [facility] Comment on above: Performed By: #### 1 [id number], 70874288, 1119847 #### [facility] (DEFAULT) [address] [place] [address] 27460 PT Coag (PPP) [Time] 18.6 second(s) High 9.7-11.8 [facility] Comment on above: Performed By: #### 1 [id number], 23973037, 6044806 #### [facility] (DEFAULT) [address] [place] [address] 90882 Progress Note - Nurseon 04-29 Progress Note [...] on: 05/25/2020 18:51 EDT] Jessica Abernathy RN [facility] Progress Note - Nurse Unable to get mask to fit correctly so placed on 2 L overnight. [Electronically Signed on: 05/25/2020 01:45 EDT] Lyndsay Lou RN [Verified on: 05/25/2020 01:45 EDT] Lyndsay Lou RN [facility] Progress Note - Nurse Pt asleep with cpap mask off, woke her to put it back on. [Electronically Signed on: 05/25/2020 01:33 EDT] Lyndsay Lou RN [Verified on: 05/25/2020 01:33 EDT] Lyndsay Lou RN [facility] Progress Note - Nurse Pt up to bedside commode with 2 assist and walker, transfers very poorly and reports alot of knee pain. [Electronically Signed on: 05/25/2020 00:22 EDT] Lyndsay Lou RN [Verified on: 05/25/2020 00:22 EDT] Lyndsay Lou RN [facility] RBC.on 05-25-2020 RBC (Bld) [#/Vol] # of Units: 1 RBC Indication: Post-Op Bleed Additional Units?: No Date Needed: 05/25/2002 Red Cell Status: RBC Ready [facility] Comment on above: Performed By: #### 1 [id number], [id number], [id number] #### [facility] (DEFAULT) [address] [place] [address] .Auto Diff 1on 05-24-2020 Auto Ida % 9 % Normal 12-09 [facility] Comment on above: Performed By: #### 1 [id number], [id number], [id number] #### [facility] (DEFAULT) [address] [place] [address] Baso Abs# 0.0 x10 Normal 0.0-0.2 [facility] Comment on above: Performed By: #### 1 [id number], [id number], [id number] #### [facility] (DEFAULT) [address] [place] [address] 20916 Basophils/100 WBC (Bld) 0.2 % Normal 0.2-2.0 [facility] Comment on above: Performed By: #### 1 [id number], [id number], [id number] #### [facility] (DEFAULT) [address] [place] [address] 23605 Eos Abs# 0.0 x10 Normal 0.0-0.4 [facility] Comment on above: Performed By: #### 1 [id number], [id number], [id number] #### [facility] (DEFAULT) [address] [place] [address] 84557 Eosinophils/100 WBC (Bld) 0.0 % Low 0.9-4.0 [facility] Comment on above: Performed By: #### 1 [id number], [id number], [id number] #### [facility] (DEFAULT) [address] [place] [address] 66835 Lymphocytes (Bld) [#/Vol] 0.7 x10 Low 1.3-2.9 [facility] Comment on above: Performed By: #### 1 [id number], [id number], [id number] #### [facility] (DEFAULT) [address] [place] [address] 75283 Lymphocytes/100 WBC (Bld) 6 % Low 14-48 [facility] Comment on above: Performed By: #### 1 [id number], [id number], [id number] #### [facility] (DEFAULT) [address] [place] [address] 83282 Ida Abs# 0.9 x10 High 0.0-0.8 [facility] Comment on above: Performed By: #### 1 [id number], [id number], [id number] #### [facility] (DEFAULT) [address] [place] [address] 57333 Neut Abs# 8.7 x10 Normal 1.5-9.2 [facility] Comment on above: Performed By: #### 1 [id number], 50761204, [id number] #### [facility] (DEFAULT) [address] [place] [address] 32647 Neutrophils/100 WBC (Bld) 84 % Normal 44-88 [facility] Comment on above: Performed By: #### 1 [id number], 36206104, [id number] #### [facility] (DEFAULT) [address] [place] [address] 60028 [facility] Standardon 05-24-2020 eGFR Non AA >60 [facility] Comment on above: Performed By: #### 1 [id number], [id number], [id number] #### [facility] (DEFAULT) [address] [place] [address] 27394 eGFR AA >60 [facility] Comment on above: Result Comment: Asphalt Smoother ghazal Kidney disease could be indicated at eGFRs of less than 60 ml/min/1.73m2. Kidney Failure is indicated at less than 15 ml/min/1.73m2 Performed By: #### 1 [id number], 44998051, [id number] #### [facility] (DEFAULT) [address] [place] [address] 02070 Anion gap [Moles/Vol] 13.0 mmol/L Normal 5.0-19.0 [facility] Comment on above: Performed By: #### 1 [id number], [id number], [id number] #### [facility] (DEFAULT) [address] [place] [address] 97090 Calcium [Mass/Vol] 8.5 mg/dL Low 8.9-10.3 [facility] Comment on above: Performed By: #### 1 [id number], [id number], [id number] #### [facility] (DEFAULT) [address] [place] [address] 62058 Chloride [Moles/Vol] 102 mmol/L Normal 101-111 [facility] Comment on above: Performed By: #### 1 [id number], 92352343, [id number] #### [facility] (DEFAULT) [address] [place] [address] 77906 CO2 [Moles/Vol] 27 mmol/L Normal 21-32 [facility] Comment on above: Performed By: #### 1 [id number], 77433545, [id number] #### [facility] (DEFAULT) [address] [place] [address] 70832 Creatinine [Mass/Vol] 0.57 mg/dL Low 0.60-1.30 [facility] Comment on above: Performed By: #### 1 [id number], [id number], [id number] #### [facility] (DEFAULT) [address] [place] [address] 31377 Glucose [Mass/Vol] 134.0 mg/dL High 74.0-118.0 [facility] Comment on above: Performed By: #### 1 [id number], [id number], [id number] #### [facility] (DEFAULT) [address] [place] [address] 30481 Osmolality [Osmolality] 280 mOsm/L [facility] Comment on above: Performed By: #### 1 [id number], 47763760, [id number] #### [facility] (DEFAULT) [address] [place] [address] 68973 Potassium [Moles/Vol] 4.4 mmol/L Normal 3.6-5.1 [facility] Comment on above: Performed By: #### 1 [id number], 51878455, 2505460 #### [facility] (DEFAULT) [address] [place] [address] 58810 Sodium [Moles/Vol] 138.0 mmol/L Normal 136.0-144 . 0 [facility] Comment on above: Performed By: #### 1 [id number], 10404204, [id number] #### [facility] (DEFAULT) [address] [place] [address] 78711 Urea nitrogen [Mass/Vol] 19 mg/dL Normal 8-26 [facility] Comment on above: Performed By: #### 1 [id number], 68097120, 8195220 #### [facility] (DEFAULT) [address] [place] [address] 64169 Urea nitrogen/Creatinin e [Mass ratio] 33.0 mg/mg High 4.6-16.2 [facility] Comment on above: Performed By: #### 1 [id number], 92332175, 8937917 #### [facility] (DEFAULT) [address] [place] [address] CBC w/ Auto Diffon 0 Erythrocyte distribution width (RBC) [Ratio] 17.4 % High 11.5-15.0 [facility] Comment on above: Performed By: #### 7 776238, 47137739, [id number] #### [facility] (DEFAULT) [address] [place] [address] Hematocrit (Bld) [Volume fraction] 29.3 % Low 33.7-40.4 [facility] Comment on above: Performed By: #### 7 076226, 14433548, [id number] #### [facility] (DEFAULT) [address] [place] [address] Hemoglobin (Bld) [Mass/Vol] 8.7 g/dL Low 11.3-15.9 [facility] Comment on above: Performed By: #### 7 241359, 91792278, [id number] #### [facility] (DEFAULT) [address] [place] [address] Man Diff? Auto Normal [facility] Comment on above: Performed By: #### 7 628892, 26729215, [id number] #### [facility] (DEFAULT) [address] [place] [address] MCH (RBC) [Entitic mass] 24 pg Normal 24-34 [facility] Comment on above: Performed By: #### 7 657591, 27568240, [id number] #### [facility] (DEFAULT) [address] [place] [address] MCHC (RBC) [Mass/Vol] 30 g/dL Normal 26-37 [facility] Comment on above: Performed By: #### 7 104396, 82427867, [id number] #### [facility] (DEFAULT) [address] [place] [address] MCV (RBC) [Entitic vol] 81 fL Normal 81-100 [facility] Comment on above: Performed By: #### 7 292743, 65912990, [id number] #### [facility] (DEFAULT) [address] [place] [address] 43881 Platelet mean volume (Bld) [Entitic vol] 10.6 fL High 6.3-10.2 [facility] Comment on above: Performed By: #### 7 005549, 25553050, [id number] #### [facility] (DEFAULT) [address] [place] [address] 22579 Platelets (Bld) [#/Vol] 211 x10 Normal 138-427 [facility] Comment on above: Performed By: #### 7 514305, 02377369, [id number] #### [facility] (DEFAULT) [address] [place] [address] 03946 RBC (Bld) [#/Vol] 3.63 x10 Low 3.70-5.30 [facility] Comment on above: Performed By: #### 7 076389, 25582256, [id number] #### [facility] (DEFAULT) [address] [place] [address] 50039 WBC (Bld) [#/Vol] 10.4 x10 Normal 3.5-10.5 [facility] Comment on above: Performed By: #### 7 783405, 05572537, [id number] #### [facility] (DEFAULT) [address] [place] [address] 79087 Nutrition Noteon 05-24-2020 Nutrition Note Diet ordered as 3000 kcal, DM w/ Boost Glucose Control BID. Diet adjusted to 2gr Na to reflect Pts home diet and supplement changed to Ensure Compact BID which is available in house. Pt does not have DM. Will continue to monitor. Normal [facility] PTon 05-24-2020 INR Coag (PPP) [Relative time] 1.21 {INR} High 0.91-1.11 [facility] Comment on above: Performed By: #### 1 [id number], 98656138, [id number] #### [facility] (DEFAULT) [address] [place] [address] PT Coag (PPP) [Time] 12.3 second(s) High 9.7-11.8 [facility] Comment on above: Performed By: #### 1 [id number], [id number], [id number] #### [facility] (DEFAULT) [address] [place] [address] Pharmacy Noteon 05-24-2020 Pharmacy Note I have personally re viewed the patient's current home medication list including, prescription medications, OTC products, vitamins and supplements. Home medications reviewed upon admission as follows: Active Medications acetaminophen-oxycodone: 1 tab(s), PO, q6hr (int), for 7 [...] [Verified on: 05/24/2020 16:28 EDT] Kellee Molina [facility] Progress Note - Nurseon 04-29 Progress Note - Nurse pts pain becming worse. giving 10mg oxy po every four hours, polar care in place and dr epperson notified of pain not controlled. will administer po gabepentin per order. will continue to monitor [Electronically Signed on: 05/24/2020 17:20 EDT] Jessica Abernathy RN [Verified on: 05/24/2020 17:20 EDT] Jessica Abernathy RN [facility] Progress Note - Nurse pt requires assistance getting in and out of bed. still a little stiff from surgery but does ok once up w the walker. pain so far has been controlled w 10 mg po oxy. [Electronically Signed on: 05/24/2020 10:54 EDT] Jessica Abernathy RN [Verified on: 05/24/2020 10:54 EDT] Jessica Abernathy RN Normal [facility] ABORhon 05-23-2020 ABO and Rh group Nom (d) Hx Check: Not Found Anti-A: 4+ Anti-B: 0 Anti-D: 4+ DCon: NT A1: mf+ B: 4+ ABORh Interp: A [facility] Comment on above: Performed By: #### 7 [id number], [id number], [id number] #### [facility] (DEFAULT) [address] [place] [address] ABORh Retypeon 05-23-2020 ABO and Rh group Nom (d) Ordered by Discern. Anti-A: 4+ Anti-B: 0 Anti-D: 4+ DCon: NT A1: mf+ B: 4+ ABORh Retype: A [facility] Comment on above: Performed By: #### 7 [id number], [id number], [id number] #### [facility] (DEFAULT) [address] [place] [address] 09339 ABSC Gelon 05-23-2020 ABSC Gel Negative [facility] Comment on above: Performed By: #### 7 081526, 56193036, [id number] #### [facility] (DEFAULT) [address] [place] [address] 61060 Anesthesia Noteon 05-23-2020 Anesthesia Note Patient: KEY [...] history): All Problems Anemia / SNOMED CT 653041189 / Confirmed At risk of pressure sore / SNOMED CT 590599855 / Confirmed Cardiomyopathy / SNOMED CT 034867144 / Confirmed DVT (deep venous thrombosis) / SNOMED CT 819357701 / Confirmed GERD (gastroesophageal reflux disease) / SNOMED CT 713871759 / Confirmed Hyperlipidemia / SNOMED CT 68779012 / Confirmed Hypertension / SNOMED CT 3540117943 / Confirmed Lumbar spondylosis / SNOMED CT 345816299 / Confirmed Mass / SNOMED CT 240290076 / Confirmed KERMIT (obstructive sleep apnea) / SNOMED CT 211757576 / Confirmed Pulmonary hypertension / SNOMED CT 053999187 / Confirmed Seizure / SNOMED CT 986322657 / Confirmed Venous insufficiency / SNOMED CT 902007041 / Confirmed Resolved: Adrenal adenoma / SNOMED CT 109356034 Resolved: Pulmonary emboli / SNOMED CT 87939876 Histories Family History: Diabetes mellitus Sister Heart attack Father Leukemia Father Stroke.... Mother Procedure history: Cholecystectomy (40491723). Colectomy (51189143). Colonoscopy (997273766). Manderson filter (564939367). Femur fracture, right (60303396). Shoulder (53118310). Comments: 02/08/2020 9:57 EDT Stacy Booker RN torn rotator cuff 02/08/2020 7:28 EDT Stacy Booker RN arthroplasty Knee arthroplasty (367356047). Craniotomy (24144963). Laminectomy (3651778973). Comments: 02/08/2020 7:30 Stacy Reynolds RN foraminotomy, facetectomy with decompression and fusion Cataract (867226282). Social History Electronic Cigarette/Vaping Assessment Electronic Cigarette [...] 147mmHg (MAY 23:) DBP L 58mmHg (MAY 23:11) SpO2 100 % (MAY 23:) Weight 119.9 [...] Oriented. Review / Management Laboratory Results Plan [place] [employer]esthesiologists#(ASA) physical status classification: Class III. Anesthetic Preoperative [...] on: 05/23/2020 13:34 EDT] Maico Sandhu DO Normal [facility] Blood Bank [facility] 05-23-2020 Blood Bank ID BBID: [id number] [facility] Comment on above: Performed By: #### 7 908693, 60149462, [id number] #### [facility] (DEFAULT) [address] [place] [address] Extra Eullaio 05-23-2020 Tube Collected Yes [facility] Comment on above: Performed By: #### 7 644821, 42744197, [id number] #### [facility] (DEFAULT) [address] [place] [address] 91305 Tube Collected Yes [facility] Comment on above: Performed By: #### 7 738494, 94325857, [id number] #### [facility] (DEFAULT) [address] [place] [address] 40285 Hgbon 05-23-2020 Hemoglobin (Bld) [Mass/Vol] 10.1 g/dL Low 11.3-15.9 [facility] Comment on above: Performed By: #### 7 938275, 84774469, [id number] #### [facility] (DEFAULT) [address] [place] [address] 16643 MAGR Intraoperative Recordon 05-23-2020 MAGR Intraoperative Record MAGR Intra-Op Record Summary Primary Physician: FERNANDO SILVA Finalized Date/Time: 05/23/20 16:19:21 Pt. Name: SANDRA TAVAREZ Lyndsay White/Sex: 1940 FEMALE Med Rec #: [id number] Physician: FERNANDO SILVA Financial #: [id number] Pt. Type: I Room/Bed: [facility] Admit/Disch: 05/23/20 09:44:18 - Institution: Case Times [...] Role Performed Surgeon - Primary Anesthesiologist of Gas Cutter Record Time In 05/23/20 13:19:00 05/23/20 13:19:00 05/23/20 13:19:00 Time Out 05/23/20 16:17:00 05/23/20 16:17:00 05/23/20 15:52:00 Procedure Arthroplasty Knee Arthroplasty Knee Arthroplasty Knee Total(Left) Total(Left) Total(Left) Last Modified By: Shanique Brown RN, Barbara RN Long, Barbara RN 05/23/20 16:19:02 05/23/20 16:19:02 05/23/20 16:19:02 Entry 4 Entry 5 Entry 6 Case Attendee Thomas ANN, Sridhar Vallejo Jennifer RN Regina CST Role Performed Scrub Personnel Laser Machine Operator Laser Machine Operator Time In 05/23/20 13:19:00 05/23/20 13:19:00 05/23/20 13:19:00 Time Out 05/23/20 16:17:00 05/23/20 16:17:00 05/23/20 16:17:00 Procedure Arthroplasty Knee Arthroplasty Knee Arthroplasty Knee Total(Left) Total(Left) Total(Left) Last Modified By: Shanique Brown RN, Barbara RN Long, Barbara RN 05/23/20 16:19:02 05/23/20 16:19:02 05/23/20 16:19:02 General Comments: J Sky waleska rep Surgical Procedures MAGR Pre-Care Text: A.20 [...] Implanted/Explanted By: Size 6.5mm 48mm 29MM ISADORA Cement Mason Apprentice waleska [employer]ALES[employer] WALESKA Catalog # Lot Number [id number] Expiration Date 10/27/29 11/27/29 10/27/29 Serial Number REF [id number] 35 REF 5983 40 48 REF 5979 95 29 Device Identifier Human Readable CHASE Machine Readable CHASE MR Class Implant Usage Data Site Knee L Knee L Knee L Quantity 1 1 1 Reason for Explant Reason Not Retained Explant Disposition Manager Financial Services Sterility External Indicator Result Internal Indicator Results [...] C D 15MM ISADORA X 30MM L Cement Mason Apprentice WALES[employer] WALESKA WALESKA Catalog # Lot Number [id number] Expiration Date 02/25/30 01/25/25 08/27/29 Serial Number REF [id number] RE 59 62 30 10 REF 5099 12 15 Device Identifier Human Readable CHASE Machine Readable CHASE MR Class Implant Usage Data Site Knee L Knee L Knee L Quantity 1 1 1 Reason for Explant Reason Not Retained Explant Disposition Manager Financial Services Sterility External Indicator Result Internal Indicator Results [...] By: Size 29 MM ISADORA 4 D Cement Mason Apprentice WALESKA WALESKA WALESKA Catalog # Lot Number [id number] Expiration Date 09/27/27 09/25/29 07/28/26 Serial Number REF 42 [id number] 000 29 REF 5980 37 02 REF 00 [id number] Device Identifier Human Readable CHASE Machine Readable CHASE MR Class Implant Usage Data Site Knee L Knee L Knee L Quantity 1 1 1 Reason for Explant Reason Not Retained Explant Disposition Manager Financial Services Sterility External Indicator Result Internal Indicator Results [...] Date/Time Implanted/Explanted FERNANDO SILVA GEORGE By: Size Cement Mason Apprentice WALESKA/BIOMET WALESKA/BIOMET Catalog # Lot Number [id number] Expiration Date 05/27/24 05/27/24 Serial Number REF [id number] REF [id number] Device Identifier Human Readable CHASE Machine Readable CHASE MR Class Implant Usage Data Site Knee L Knee L Quantity 1 1 Reason for Explant Reason Not Retained Explant Disposition Manager Financial Services Sterility External Indicator Result Internal Indicator Results [...] Signed By: Shanique Brown RN 05/23/20 16:19 [facility] MAGR Intraoperative Record MAGR Intra-Op Record Summary Primary Physician: Finalized Date/Time: 05/23/20 13:14:24 Pt. Name: SANDRA TAVAREZ/Sex: 1940 FEMALE Med Rec #: [id number] Physician: FERNANDO SILVA Financial #: [id number] Pt. Type: I Room/Bed: [facility] Admit/Disch: 05/23/20 09:44:18 - Institution: Case Times [...] Warga, Laura RN Role Performed Anesthesiologist of Gas Cutter Gas Cutter Record Time In 05/23/20 12:58:00 05/23/20 12:58:00 [...] Signed By: Stacy Pena RN 05/23/[facility] Primary Physician: FERNANDO SILVA Finalized Date/Time: 05/23/20 16:49:56 Pt. Name: SANDRA TAVAREZ/Sex: 1940 FEMALE Med Rec #: [id number] Physician: FERNANDO SILVA Financial #: [id number] Pt. Type: I Room/Bed: [facility] Admit/Disch: 05/23/20 09:44:18 - Institution: PACU Case Times MAGR Entry 1 In PACU I 05/23/20 16:18:00 Discharge from PACU 05/23/20 16:51:00 I Last Modified By: Shanique Brown RN 05/23/20 16:49:54 Finalized By: Shanique Brown RN Document Signatures Signed By: Shanique Brown RN 05/23/20 16:49 [facility] Nutrition Noteon 05-23-2020 Nutrition Note Pt admitted for sche duled Lt total knee surgery; diet order still [...] age greater than 65y and surgery. Normal [facility] PTon 05-23-2020 INR Coag (PPP) [Relative time] 1.22 {INR} High 0.91-1.11 [facility] Comment on above: Performed By: #### 7 815119, [id number], [id number] #### [facility] (DEFAULT) [address] [place] [address] 65710 PT Coag (PPP) [Time] 12.4 second(s) High 9.7-11.8 [facility] Comment on above: Result Comment: Call ed Shira in Pre - Surg at 1059 Performed By: #### 7 872563, 22523021, [id number] #### [facility] (DEFAULT) [address] [place] [address] 73139 SARS-CoV-2 (COVID-19) PCRon 05-23-2020 COVID-19 PCR Not Detected Normal Not Detected [facility] Comment on above: Result Comment: perf ormed in house Results Called To Stacy in pre-surg By ARIADNA And Read Back For Confirmation On 05/23/2020 10:55:59 EDT Performed By: #### 7 046169, 11624760, [id number] #### [facility] (DEFAULT) [address] [place] [address] 71989 XR Knee One or Two Views Lef [...] Cardona 05/23/20 4:50 pm Technologist: Michelle BLANTON Normal [facility] Progress Note - Nurseon 04-28 Progress Note - Nurse Chart reviewed by Dr. Fish and no new orders received. May proceed to surgery. [Electronically Signed on: 05/07/2020 15:56 EDT] Chrissie Contreras RN [Verified on: 05/07/2020 15:56 EDT] Chrissie Contreras RN [facility] Coding Summaryon 02-27-2020 Coding Summary CODING DATE: 020 [facility] STATUS: Home PAYOR: Medicare APC DESCRIPTION 5522 [...] Fang Revised Date Saved: 02/27/2020 01:41 pm [facility] Progress Note - Nurseon - Progress Note - Nurse Chart reviewed by Dr. Garcia and no new orders received. [Electronically Signed on: 02/12/2020 15:52 EDT] Chrissie Contreras RN [Verified on: 02/12/2020 15:52 EDT] Chrissie Contreras RN A [facility] Provider Orderson 02-11-2020 Provider Orders [id number] [facility] C Urineon 02-10-2020 C Urine Urine Culture ordere d as a result of parameters set on specific urine dip and urine microsopic results. Mixed skin, or urogenital paddy. Clinically insignificant [facility] Comment on above: Performed By: #### 1 [id number], [id number], [id number] #### [facility] (DEFAULT) [address] [place] [address] .Auto Diff 1on 02-08-2020 Auto Ida % 12 % Normal 12 [facility] Comment on above: Performed By: #### 7 622444, 65525382, [id number] #### [facility] (DEFAULT) [address] [place] [address] Baso Abs# 0.0 x10 Normal 0.0-0.2 [facility] Comment on above: Performed By: #### 7 266395, 63141084, [id number] #### [facility] (DEFAULT) [address] [place] [address] Basophils/100 WBC (Bld) 0.4 % Normal 0.2-2.0 [facility] Comment on above: Performed By: #### 7 479379, [id number], [id number] #### [facility] (DEFAULT) [address] [place] [address] Eos Abs# 0.1 x10 Normal 0.0-0.4 [facility] Comment on above: Performed By: #### 7 197084, 12381407, [id number] #### [facility] (DEFAULT) [address] [place] [address] Eosinophils/100 WBC (Bld) 1.9 % Normal 0.9-4.0 [facility] Comment on above: Performed By: #### 7 126120, 93997441, [id number] #### [facility] (DEFAULT) [address] [place] [address] 51085 Lymphocytes (Bld) [#/Vol] 1.0 x10 Low 1.3-2.9 [facility] Comment on above: Performed By: #### 7 601992, 85149612, [id number] #### [facility] (DEFAULT) [address] [place] [address] 11875 Lymphocytes/100 WBC (Bld) 22 % Normal 14-48 [facility] Comment on above: Performed By: #### 7 453788, 17694487, [id number] #### [facility] (DEFAULT) [address] [place] [address] Ida Abs# 0.6 x10 Normal 0.0-0.8 [facility] Comment on above: Performed By: #### 7 186505, 47035763, [id number] #### [facility] (DEFAULT) [address] [place] [address] Neut Abs# 3.0 x10 Normal 1.5-9.2 [facility] Comment on above: Performed By: #### 7 142895, 48337256, [id number] #### [facility] (DEFAULT) [address] [place] [address] 19785 Neutrophils/100 WBC (Bld) 64 % Normal 44-88 [facility] Comment on above: Performed By: #### 7 898745, 88715302, [id number] #### [facility] (DEFAULT) [address] [place] [address] Standardon 02-08-2020 eGFR Non AA >60 [facility] Comment on above: Performed By: #### 7 466788, 41880615, [id number] #### [facility] (DEFAULT) [address] [place] [address] eGFR AA >60 [facility] Comment on above: Result Comment: Asphalt Smoother ghazal Kidney disease could be indicated at eGFRs of less than 60 ml/min/1.73m2. Kidney Failure is indicated at less than 15 ml/min/1.73m2 Performed By: #### 7 175719, 81796289, [id number] #### [facility] (DEFAULT) [address] [place] [address] 34245 Anion gap [Moles/Vol] 15.0 mmol/L Normal 5.0-19.0 [facility] Comment on above: Performed By: #### 7 783157, 17882078, [id number] #### [facility] (DEFAULT) [address] [place] [address] 90274 Calcium [Mass/Vol] 9.4 mg/dL Normal 8.9-10.3 [facility] Comment on above: Performed By: #### 7 453621, 46969248, [id number] #### [facility] (DEFAULT) [address] [place] [id number] Chloride [Moles/Vol] 102 mmol/L Normal 101-111 [facility] Comment on above: Performed By: #### 7 [id number], [id number], [id number] #### [facility] (DEFAULT) [address] [place] [address] 94961 CO2 [Moles/Vol] 26 mmol/L Normal 21-32 [facility] Comment on above: Performed By: #### 7 [id number], [id number], [id number] #### [facility] (DEFAULT) [address] [place] [address] 62084 Creatinine [Mass/Vol] 0.64 mg/dL Normal 0.60-1.30 [facility] Comment on above: Performed By: #### 7 [id number], [id number], [id number] #### [facility] (DEFAULT) [address] [place] [address] 98101 Glucose [Mass/Vol] 112.0 mg/dL Normal 74.0-118.0 [facility] Comment on above: Performed By: #### 7 [id number], [id number], [id number] #### [facility] (DEFAULT) [address] [place] [address] 74211 Osmolality [Osmolality] 280 mOsm/L [facility] Comment on above: Performed By: #### 7 [id number], [id number], [id number] #### [facility] (DEFAULT) [address] [place] [address] 15827 Potassium [Moles/Vol] 4.1 mmol/L Normal 3.6-5.1 [facility] Comment on above: Performed By: #### 7 [id number], [id number], [id number] #### [facility] (DEFAULT) [address] [place] [address] 18369 Sodium [Moles/Vol] 139.0 mmol/L Normal 136.0-144 . 0 [facility] Comment on above: Performed By: #### 7 [id number], [id number], [id number] #### [facility] (DEFAULT) [address] [place] [address] 83961 Urea nitrogen [Mass/Vol] 19 mg/dL Normal 8-26 [facility] Comment on above: Performed By: #### 7 [id number], [id number], [id number] #### [facility] (DEFAULT) [address] [place] [address] Urea nitrogen/Creatinin e [Mass ratio] 30.0 mg/mg High 4.6-16.2 [facility] Comment on above: Performed By: #### 7 [id number], [id number], [id number] #### [facility] (DEFAULT) [address] [place] [address] 28265 CBC w/ Auto Diffon 0 Erythrocyte distribution width (RBC) [Ratio] 14.8 % Normal 11.5-15.0 [facility] Comment on above: Performed By: #### 7 [id number], [id number], [id number] #### [facility] (DEFAULT) [address] [place] [address] 40408 Hematocrit (Bld) [Volume fraction] 37.2 % Normal 33.7-40.4 [facility] Comment on above: Performed By: #### 7 [id number], [id number], [id number] #### [facility] (DEFAULT) [address] [place] [address] 11573 Hemoglobin (Bld) [Mass/Vol] 11.6 g/dL Normal 11.3-15.9 [facility] Comment on above: Performed By: #### 7 [id number], [id number], [id number] #### [facility] (DEFAULT) [address] [place] [address] 08213 Man Diff? Auto Normal [facility] Comment on above: Performed By: #### 7 [id number], [id number], [id number] #### [facility] (DEFAULT) [address] [place] [address] 13358 MCH (RBC) [Entitic mass] 26 pg Normal 24-34 [facility] Comment on above: Performed By: #### 7 [id number], [id number], [id number] #### [facility] (DEFAULT) [address] [place] [address] 67707 MCHC (RBC) [Mass/Vol] 31 g/dL Normal 26-37 [facility] Comment on above: Performed By: #### 7 [id number], [id number], [id number] #### [facility] (DEFAULT) [address] [place] [address] 26238 MCV (RBC) [Entitic vol] 83 fL Normal 81-100 [facility] Comment on above: Performed By: #### 7 [id number], [id number], [id number] #### [facility] (DEFAULT) [address] [place] [address] 31886 Platelet mean volume (Bld) [Entitic vol] 10.8 fL High 6.3-10.2 [facility] Comment on above: Performed By: #### 7 [id number], [id number], [id number] #### [facility] (DEFAULT) [address] [place] [address] 63556 Platelets (Bld) [#/Vol] 218 x10 Normal 138-427 [facility] Comment on above: Performed By: #### 7 [id number], [id number], [id number] #### [facility] (DEFAULT) [address] [place] [address] 56634 RBC (Bld) [#/Vol] 4.47 x10 Normal 3.70-5.30 [facility] Comment on above: Performed By: #### 7 [id number], [id number], [id number] #### [facility] (DEFAULT) [address] [place] [address] WBC (Bld) [#/Vol] 4.8 x10 Normal 3.5-10.5 [facility] Comment on above: Performed By: #### 7 [id number], [id number], [id number] #### [facility] (DEFAULT) [address] [place] [address] UA [id number] 02-08-2020 RBC (U) [#/Vol] None Seen [facility] Comment on above: Order Comment: Urina lysis Microscopic order added on by [employer] Rules system. Performed By: #### 1 [id number], [id number], [id number] #### [facility] (DEFAULT) [address] [place] [address] UA Bacteria 2+ [facility] Comment on above: Order Comment: Urina lysis Microscopic order added on by [employer] Rules system. Performed By: #### 1 [id number], [id number], [id number] #### [facility] (DEFAULT) [address] [place] [address] UA Squam Epi Moderate [facility] Comment on above: Order Comment: Urina lysis Microscopic order added on by [employer] Rules system. Performed By: #### 1 [id number], [id number], [id number] #### [facility] (DEFAULT) [address] [place] [address] UA WBC 3-5 [facility] Comment on above: Order Comment: Urina lysis Microscopic order added on by [employer] Rules system. Performed By: #### 1 [id number], [id number], [id number] #### [facility] (DEFAULT) [address] [place] [address] UA w Culture if Ind Standard on 02-08-2020 Breakpoint UA [facility] Comment on above: Performed By: #### 1 [id number], [id number], [id number] #### [facility] (DEFAULT) [address] [place] [address] Color (U) Yellow [facility] Comment on above: Performed By: #### 1 [id number], [id number], [id number] #### [facility] (DEFAULT) [address] [place] [address] 86195 Culture? Yes Normal [facility] Comment on above: Performed By: #### 1 [id number], [id number], [id number] #### [facility] (DEFAULT) [address] [place] [address] 98341 Glucose (U) [Mass/Vol] Negative Normal [facility] Comment on above: Performed By: #### 1 [id number], [id number], [id number] #### [facility] (DEFAULT) [address] [place] [address] 64149 Ketones Ql (U) Negative Normal [facility] Comment on above: Performed By: #### 1 [id number], [id number], [id number] #### [facility] (DEFAULT) [address] [place] [address] 82052 Micro? Indicated [facility] Comment on above: Performed By: #### 1 [id number], [id number], [id number] #### [facility] (DEFAULT) [address] [place] [address] 47834 UA Bilirubin Negative Normal [facility] Comment on above: Performed By: #### 1 [id number], [id number], [id number] #### [facility] (DEFAULT) [address] [place] [address] 38567 UA Blood Negative Normal NEGATIVE [facility] Comment on above: Performed By: #### 1 [id number], [id number], [id number] #### [facility] (DEFAULT) [address] [place] [address] 68082 UA Clarity SL CLOUDY Abnormal CLEAR [facility] Comment on above: Performed By: #### 1 [id number], [id number], [id number] #### [facility] (DEFAULT) [address] [place] [address] 35173 UA Leuk Est TRACE Abnormal NEGATIVE [facility] Comment on above: Performed By: #### 1 [id number], [id number], [id number] #### [facility] (DEFAULT) [address] [place] [address] 86021 UA Nitrite Negative Normal NEGATIVE [facility] Comment on above: Performed By: #### 1 [id number], [id number], [id number] #### [facility] (DEFAULT) [address] [place] [address] UA pH 6.0 Normal 5-8 [facility] Comment on above: Performed By: #### 1 [id number], [id number], [id number] #### [facility] (DEFAULT) [address] [place] [address] UA Protein Negative Normal NEGATIVE [facility] Comment on above: Performed By: #### 1 [id number], [id number], [id number] #### [facility] (DEFAULT) [address] [place] [address] UA Spec Grav 1.025 Normal 1.001-1.[address] [place] [address] Comment on above: Performed By: #### 1 [id number], [id number], [id number] #### [facility] (DEFAULT) [address] [place] [address] UA Urobilinogen 0.2 mg/dL Normal 0.2-1.0 [facility] Comment on above: Performed By: #### 1 [id number], [id number], [id number] #### [facility] (DEFAULT) [address] [place] [address] Urine Source Clean Catch Normal [facility] Comment on above: Performed By: #### 1 [id number], [id number], [id number] #### [facility] (DEFAULT) [address] [place] [address] XR Knee Complete Left Standi ngon 02-08-2020 [...] Mcpherson 02/08/20 3:02 pm Technologist: Rony ANTONIO [facility] Vital Signs Date Time Vital Sign Value Performing Clinician Facility 06-18-2025 14:120400 Body height 152.4 cm Robert Ball DO Work Phone: [facility] 06-18-2025 14:12-0400 Body mass index (BMI) [Ratio] 53.8 kg/m2 Robert Ball DO Work Phone: [facility] 06-18-2025 14:120400 Body weight 125.19 kg Robert Ball DO Work Phone: [facility] 06-18-2025 14:12-0400 Diastolic blood pressure 73 mm[Hg] Robert Ball DO Work Phone: [facility] 06-18-2025 14:12-0400 Heart rate 76 /min Robert Ball DO Work Phone: [facility] 06-18-2025 14:12-0400 Respiratory rate 12 /min Robert Ball DO Work Phone: [facility] 06-18-2025 14:12-0400 Systolic blood pressure 160 mm[Hg] Robert Ball DO Work Phone: [facility] 06-14-2025 11:290400 Body height 152.4 cm Robert Ball DO Work Phone: [facility] 06-14-2025 11:29-0400 Body mass index (BMI) [Ratio] 53.8 kg/m2 Robert Ball DO Work Phone: [facility] 06-14-2025 11:290400 Body temperature 97.4 [degF] Robert Ball DO Work Phone: [facility] 06-14-2025 11:290400 Body weight 125.19 kg Robert Ball DO Work Phone: [facility] 06-14-2025 11:29-0400 Diastolic blood pressure 84 mm[Hg] Robert Ball DO Work Phone: [facility] 06-14-2025 11:29-0400 Heart rate 82 /min Robert Ball DO Work Phone: [facility] 06-14-2025 11:29-0400 SaO2% (BldA) [Mass fraction] 96 % Robert Ball DO Work Phone: [facility] 06-14-2025 11:29-0400 Systolic blood pressure 136 mm[Hg] Robert Ball DO Work Phone: [facility] 05-16-2025 12:03-0400 Body height 152.4 cm Robert Ball DO Work Phone: [facility] 05-16-2025 12:03-0400 Body mass index (BMI) [Ratio] 53.3 kg/m2 Robert Ball DO Work Phone: [facility] 05-16-2025 12:03-0400 Body weight 123.83 kg Robert Ball DO Work Phone: [facility] 05-16-2025 12:03-0400 Diastolic blood pressure 73 mm[Hg] Robert Ball DO Work Phone: [facility] 05-16-2025 12:03-0400 Heart rate 82 /min Robert Ball DO Work Phone: [facility] 05-16-2025 12:03-0400 Respiratory rate 12 /min Robert Ball DO Work Phone: [facility] 05-16-2025 12:03-0400 Systolic blood pressure 192 mm[Hg] Robert Ball DO Work Phone: [facility] 05-06-2025 13:26-0400 Body height 152.4 cm [facility] 05-06-2025 13:26-0400 Body mass index (BMI) [Ratio] 53.3 kg/m2 [facility] 05-06-2025 13:26-0400 Body weight 123.83 kg [facility] 05-06-2025 13:26-0400 Diastolic blood pressure 62 mm[Hg] [facility] 05-06-2025 13:26-0400 Heart rate 77 /min [facility] 05-06-2025 13:26-0400 Respiratory rate 12 /min [facility] 05-06-2025 13:26-0400 Systolic blood pressure 198 mm[Hg] [facility] 05-06-2025 12:07-0400 Diastolic blood pressure 82 mm[Hg] [facility] 05-06-2025 12:07-0400 Heart rate 75 /min [facility] 05-06-2025 12:07-0400 SaO2% (BldA) [Mass fraction] 96 % [facility] 05-06-2025 12:07-0400 Systolic blood pressure 142 mm[Hg] [facility] 04-15-2025 13:57-0400 Body height 152.4 cm [facility] 04-15-2025 13:57-0400 Body mass index (BMI) [Ratio] 53.4 kg/m2 [facility] 04-15-2025 13:57-0400 Body weight 124 kg [facility] 04-15-2025 13:57-0400 Diastolic blood pressure 84 mm[Hg] [facility] 04-15-2025 13:57-0400 Heart rate 77 /min [facility] 04-15-2025 13:57-0400 Respiratory rate 18 /min [facility] 04-15-2025 13:57-0400 SaO2% (BldA) [Mass fraction] 98 % [facility] 04-15-2025 13:57-0400 Systolic blood pressure 150 mm[Hg] [facility] 04-09-2025 10:22-0400 Body height 152.4 cm [facility] 04-09-2025 10:22-0400 Body mass index (BMI) [Ratio] 53.6 kg/m2 [facility] 04-09-2025 10:22-0400 Body weight 124.45 kg [facility] 04-09-2025 10:22-0400 Diastolic blood pressure 86 mm[Hg] [facility] 04-09-2025 10:22-0400 Heart rate 92 /min [facility] 04-09-2025 10:22-0400 Respiratory rate 12 /min [facility] 04-09-2025 10:22-0400 SaO2% (BldA) [Mass fraction] 98 % [facility] 04-09-2025 10:22-0400 Systolic blood pressure 159 mm[Hg] [facility] 03-20-2025 13:29-0400 Body height 152.4 cm Robert Ball DO Work Phone: [facility] 03-20-2025 13:29-0400 Body mass index (BMI) [Ratio] 53.6 kg/m2 Robert Ball DO Work Phone: [facility] 03-20-2025 13:29-0400 Body weight 124.73 kg Robert Ball DO Work Phone: [facility] 03-20-2025 13:29-0400 Diastolic blood pressure 80 mm[Hg] Robert Ball DO Work Phone: [facility] 03-20-2025 13:29-0400 Heart rate 88 /min Robert Ball DO Work Phone: [facility] 03-20-2025 13:29-0400 SaO2% (BldA) [Mass fraction] 97 % Robert Ball DO Work Phone: [facility] 03-20-2025 13:29-0400 Systolic blood pressure 116 mm[Hg] Robert Ball DO Work Phone: [facility] 02-26-2025 10:38-0400 Diastolic blood pressure 90 mm[Hg] Robert Ball DO Work Phone: [facility] 02-26-2025 10:38-0400 Heart rate 73 /min Robert Ball DO Work Phone: [facility] 02-26-2025 10:38-0400 SaO2% (BldA) [Mass fraction] 99 % Robert Ball DO Work Phone: [facility] 02-26-2025 10:38-0400 Systolic blood pressure 140 mm[Hg] Robert Ball DO Work Phone: [facility] 01-16-2025 13:05-0500 Diastolic blood pressure 98 mm[Hg] Robert Ball DO Work Phone: [facility] 01-16-2025 13:05-0500 Heart rate 76 /min Robert Ball DO Work Phone: [facility] 01-16-2025 13:05-0500 SaO2% (BldA) [Mass fraction] 98 % Robert Ball DO Work Phone: [facility] 01-16-2025 13:05-0500 Systolic blood pressure 150 mm[Hg] Robert Ball DO Work Phone: [facility] 01-04-2025 11:57-0500 Body height 162.56 cm Robert Ball DO Work Phone: [facility] 01-04-2025 11:57-0500 Body mass index (BMI) [Ratio] 48.1 kg/m2 Robert Ball DO Work Phone: [facility] 01-04-2025 11:57-0500 Body weight 127.14 kg Robert Ball DO Work Phone: [facility] 01-04-2025 11:57-0500 Diastolic blood pressure 77 mm[Hg] Robert Ball DO Work Phone: [facility] 01-04-2025 11:57-0500 Heart rate 96 /min Robert Ball DO Work Phone: [facility] 01-04-2025 11:57-0500 Respiratory rate 12 /min Robert Ball DO Work Phone: [facility] 01-04-2025 11:57-0500 Systolic blood pressure 169 mm[Hg] Robert Ball DO Work Phone: [facility] 12-26-2024 12:01-0500 Diastolic blood pressure 75 mm[Hg] Robert Ball DO Work Phone: [facility] 12-26-2024 12:01-0500 Heart rate 70 /min Robert Ball DO Work Phone: [facility] 12-26-2024 12:01-0500 Respiratory rate 16 /min Robert Ball DO Work Phone: [facility] 12-26-2024 12:01-0500 SaO2% (BldA) [Mass fraction] 96 % Robert Ball DO Work Phone: [facility] 12-26-2024 12:01-0500 Systolic blood pressure 133 mm[Hg] Robert Ball DO Work Phone: [facility] 12-26-2024 11:26-0500 Inhaled oxygen flow rate 4 L/min Robert Ball DO Work Phone: [facility] 12-26-2024 09:15-0500 Body height 152.4 cm Robert Ball DO Work Phone: [facility] 12-26-2024 09:15-0500 Body weight 122.46 kg Robert Ball DO Work Phone: [facility] 12-12-2024 13:50-0500 Body height 162.56 cm [facility] 12-12-2024 13:50-0500 Body mass index (BMI) [Ratio] 48.1 kg/m2 [facility] 12-12-2024 13:50-0500 Body weight 127.26 kg [facility] 12-12-2024 13:50-0500 Diastolic blood pressure 72 mm[Hg] [facility] 12-12-2024 13:50-0500 Heart rate 89 /min [facility] 12-12-2024 13:50-0500 Respiratory rate 16 /min [facility] 12-12-2024 13:50-0500 Systolic blood pressure 134 mm[Hg] [facility] 12-10-2024 13:38-0500 Body height 162.56 cm [facility] 12-10-2024 13:38-0500 Body mass index (BMI) [Ratio] 48.2 kg/m2 [facility] 12-10-2024 13:38-0500 Body weight 127.45 kg [facility] 12-10-2024 13:38-0500 Diastolic blood pressure 70 mm[Hg] [facility] 12-10-2024 13:38-0500 Heart rate 88 /min [facility] 12-10-2024 13:38-0500 SaO2% (BldA) [Mass fraction] 98 % [facility] 12-10-2024 13:38-0500 Systolic blood pressure 136 mm[Hg] [facility] 12-07-2024 11:02-0500 Body height 162.56 cm [facility] 12-07-2024 11:02-0500 Body mass index (BMI) [Ratio] 48.3 kg/m2 [facility] 12-07-2024 11:02-0500 Body weight 127.68 kg [facility] 12-07-2024 11:02-0500 Diastolic blood pressure 87 mm[Hg] [facility] 12-07-2024 11:02-0500 Heart rate 96 /min [facility] 12-07-2024 11:02-0500 Respiratory rate 12 /min [facility] 12-07-2024 11:02-0500 Systolic blood pressure 177 mm[Hg] [facility] 09-04-2024 09:46-0400 Diastolic blood pressure 80 mm[Hg] DO Robert Ball Work Phone: [facility] 09-04-2024 09:46-0400 Heart rate 73 /min DO Robert Ball Work Phone: [facility] 09-04-2024 09:46-0400 SaO2% (BldA) [Mass fraction] 97 % DO Robert Ball Work Phone: [facility] 09-04-2024 09:46-0400 Systolic blood pressure 130 mm[Hg] DO Robert Ball Work Phone: [facility] 08-24-2024 11:03-0400 Heart rate 97 /min DO Robert Ball Work Phone: [facility] 08-24-2024 11:03-0400 SaO2% (BldA) [Mass fraction] 96 % DO Robert Ball Work Phone: [facility] 08-10-2024 14:18-0400 Diastolic blood pressure 66 mm[Hg] DO Robert Ball Work Phone: [facility] 08-10-2024 14:18-0400 Heart rate 73 /min DO Robert Ball Work Phone: [facility] 08-10-2024 14:18-0400 Respiratory rate 16 /min DO Robert Ball Work Phone: [facility] 08-10-2024 14:18-0400 SaO2% (BldA) [Mass fraction] 98 % DO Robert Ball Work Phone: [facility] 08-10-2024 14:18-0400 Systolic blood pressure 124 mm[Hg] DO Robert Ball Work Phone: [facility] 08-10-2024 12:13-0400 Body height 152.4 cm DO Robert Ball Work Phone: [facility] 08-10-2024 12:13-0400 Body weight 120.2 kg DO Robert Ball Work Phone: [facility] 08-06-2024 10:49-0400 Body height 152.4 cm DO Robert Ball Work Phone: [facility] 08-06-2024 10:49-0400 Body mass index (BMI) [Ratio] 54.5 kg/m2 DO Robert Ball Work Phone: [facility] 08-06-2024 10:49-0400 Body weight 126.6 kg DO Robert Ball Work Phone: [facility] 08-06-2024 10:49-0400 Diastolic blood pressure 78 mm[Hg] DO Robert Ball Work Phone: [facility] 08-06-2024 10:49-0400 Heart rate 65 /min DO Robert Ball Work Phone: [facility] 08-06-2024 10:49-0400 Respiratory rate 12 /min DO Robert Ball Work Phone: [facility] 08-06-2024 10:49-0400 Systolic blood pressure 159 mm[Hg] DO Robert Ball Work Phone: [facility] 07-31-2024 11:13-0400 Diastolic blood pressure 80 mm[Hg] DO Robert Ball Work Phone: [facility] 07-31-2024 11:13-0400 Heart rate 71 /min DO Robert Ball Work Phone: [facility] 07-31-2024 11:13-0400 SaO2% (BldA) [Mass fraction] 97 % DO Robert Ball Work Phone: [facility] 07-31-2024 11:13-0400 Systolic blood pressure 132 mm[Hg] DO Robert Ball Work Phone: [facility] 05-28-2024 14:21-0400 Body height 152.4 cm DO Robert Ball Work Phone: [facility] 05-28-2024 14:21-0400 Body mass index (BMI) [Ratio] 52.1 kg/m2 DO Robert Ball Work Phone: [facility] 05-28-2024 14:21-0400 Body weight 121.1 kg DO Robert Ball Work Phone: [facility] 05-28-2024 14:21-0400 Diastolic blood pressure 70 mm[Hg] DO Robert Ball Work Phone: [facility] 05-28-2024 14:21-0400 Heart rate 68 /min DO Robert Ball Work Phone: [facility] 05-28-2024 14:21-0400 Respiratory rate 18 /min DO Robert Ball Work Phone: [facility] 05-28-2024 14:21-0400 SaO2% (BldA) [Mass fraction] 98 % DO Robert Ball Work Phone: [facility] 05-28-2024 14:21-0400 Systolic blood pressure 132 mm[Hg] DO Robert Ball Work Phone: [facility] 04-30-2024 15:05-0400 Diastolic blood pressure 70 mm[Hg] [facility] 04-30-2024 15:05-0400 Heart rate 98 /min [facility] 04-30-2024 15:05-0400 SaO2% (BldA) [Mass fraction] 97 % [facility] 04-30-2024 15:05-0400 Systolic blood pressure 126 mm[Hg] [facility] 03-29-2024 10:44-0400 Body height 152.4 cm [facility] 03-29-2024 10:44-0400 Body mass index (BMI) [Ratio] 53.6 kg/m2 [facility] 03-29-2024 10:44-0400 Body weight 124.45 kg [facility] 03-29-2024 10:44-0400 Diastolic blood pressure 71 mm[Hg] [facility] 03-29-2024 10:44-0400 Heart rate 75 /min [facility] 03-29-2024 10:44-0400 Respiratory rate 16 /min [facility] 03-29-2024 10:44-0400 Systolic blood pressure 116 mm[Hg] [facility] 02-15-2024 14:20-0400 Body height 152.4 cm DO Robert Ball Work Phone: [facility] 02-15-2024 14:20-0400 Body mass index (BMI) [Ratio] 53.1 kg/m2 DO Robert Ball Work Phone: [facility] 02-15-2024 14:20-0400 Body weight 123.37 kg DO Robert Ball Work Phone: [facility] 02-15-2024 14:20-0400 Diastolic blood pressure 65 mm[Hg] DO Robert Ball Work Phone: [facility] 02-15-2024 14:20-0400 Heart rate 77 /min DO Robert Ball Work Phone: [facility] 02-15-2024 14:20-0400 Respiratory rate 16 /min DO Robert Ball Work Phone: [facility] 02-15-2024 14:20-0400 Systolic blood pressure 170 mm[Hg] DO Robert Ball Work Phone: [facility] 09-21-2023 14:00-0400 Body height 152.4 cm Robert Ball Other [facility] [employer] Other 09-21-2023 14:00-0400 Body mass index (BMI) [Ratio] 52.69 kg/m2 Robert Ball Other [facility] [employer] Other 09-21-2023 14:00-0400 Body weight 122.38 kg Robert Ball Other [facility] [employer] Other 09-21-2023 14:00-0400 Diastolic blood pressure 70 mm[Hg] Robert Ball Other [place] [employer] Other 09-21-2023 14:00-0400 Respiratory rate 20 /min Robert Ball Other [place] [employer] Other 09-21-2023 14:00-0400 Systolic blood pressure 150 mm[Hg] Robert Ball Other [employer] Other 08-15-2023 15:00-0400 Body height 152.4 cm Robert Ball Other [employer] Other 08-15-2023 15:00-0400 Body mass index (BMI) [Ratio] 54.33 kg/m2 Robert Ball Other [employer] Other 08-15-2023 15:00-0400 Body weight 126.19 kg Robert Ball Other [employer] Other 08-15-2023 15:00-0400 Diastolic blood pressure 79 mm[Hg] Robert Ball Other [place] [employer] Other 08-15-2023 15:00-0400 Respiratory rate 16 /min Robert Ball Other [place] [employer] Other 08-15-2023 15:00-0400 Systolic blood pressure 147 mm[Hg] Robert Ball Other [employer] Other 07-11-2023 11:00-0400 Body height 152.4 cm Robert Ball Other [employer] Other 07-11-2023 11:00-0400 Body mass index (BMI) [Ratio] 55.26 kg/m2 Robert Ball Other [employer] Other 07-11-2023 11:00-0400 Body weight 128.37 kg Robert Ball Other [employer] Other 07-11-2023 11:00-0400 Diastolic blood pressure 90 mm[Hg] Robert Ball Other [employer] Other 07-11-2023 11:00-0400 Respiratory rate 16 /min Robert Ball Other [employer] Other 07-11-2023 11:00-0400 Systolic blood pressure 140 mm[Hg] Robert Ball Other [employer] Other 05-25-2023 14:00-0400 Body height 152.4 cm Robert Ball Other [employer] Other 05-25-2023 14:00-0400 Body mass index (BMI) [Ratio] 54.25 kg/m2 Robert Ball Other [employer] Other 05-25-2023 14:00-0400 Body weight 126.01 kg Robert Ball Other [employer] Other 05-25-2023 14:00-0400 Diastolic blood pressure 76 mm[Hg] Robert Ball Other [employer] Other 05-25-2023 14:00-0400 Respiratory rate 16 /min Robert Ball Other [employer] Other 05-25-2023 14:00-0400 Systolic blood pressure 151 mm[Hg] Robert Ball Other [employer] Other 04-08-2023 12:15-0400 Body height 152.4 cm Robert Ball Other [employer] Other 04-08-2023 12:15-0400 Body mass index (BMI) [Ratio] 53.84 kg/m2 Robert Ball Other [employer] Other 04-08-2023 12:15-0400 Body weight 125.06 kg Robert Ball Other [employer] Other 04-08-2023 12:15-0400 Diastolic blood pressure 80 mm[Hg] Robert Ball Other [employer] Other 04-08-2023 12:15-0400 Respiratory rate 12 /min Robert Ball Other [employer] Other 04-08-2023 12:15-0400 Systolic blood pressure 124 mm[Hg] Robert Ball Other [employer] Other 03-23-2023 14:30-0400 Body height 152.4 cm Robert Ball Other [employer] Other 03-23-2023 14:30-0400 Body mass index (BMI) [Ratio] 53.82 kg/m2 Robert Ball Other [employer] Other 03-23-2023 14:30-0400 Body weight 125.01 kg Robert Ball Other [employer] Other 03-23-2023 14:30-0400 Diastolic blood pressure 84 mm[Hg] Robert Ball Other [employer] Other 03-23-2023 14:30-0400 Respiratory rate 12 /min Robert Ball Other [employer] Other 03-23-2023 14:30-0400 Systolic blood pressure 122 mm[Hg] Robert Ball Other [employer] Other 03-02-2023 12:00-0400 Body height 152.4 cm Robert Ball Other [employer] Other 03-02-2023 12:00-0400 Body mass index (BMI) [Ratio] 54.01 kg/m2 Robert Ball Other [employer] Other 03-02-2023 12:00-0400 Body weight 125.47 kg Robert Ball Other [employer] Other 03-02-2023 12:00-0400 Diastolic blood pressure 72 mm[Hg] Robert Ball Other [employer] Other 03-02-2023 12:00-0400 Respiratory rate 12 /min Robert Ball Other [employer] Other 03-02-2023 12:00-0400 Systolic blood pressure 122 mm[Hg] Robert Ball Other [employer] Other 02-14-2023 14:15-0400 Body height 152.4 cm Michael Emelyn Other [employer] Other 02-14-2023 14:15-0400 SaO2% (BldA) [Mass fraction] 98 % Michael Emelyn Other [employer] Other 01-27-2023 15:00-0500 Body height 152.4 cm Michael Emelyn Other [employer] Other 01-27-2023 15:00-0500 Diastolic blood pressure 84 mm[Hg] Michael Emelyn Other [employer] Other 01-27-2023 15:00-0500 SaO2% (BldA) [Mass fraction] 98 % Michael Emelyn Other [employer] Other 01-27-2023 15:00-0500 Systolic blood pressure 126 mm[Hg] Michael Emelyn Other [employer] Other 12-31-2022 12:30-0500 Body height 152.4 cm Michael Emelyn Other [employer] Other 12-31-2022 12:30-0500 SaO2% (BldA) [Mass fraction] 96 % Michael Emelyn Other [employer] Other 12-27-2022 11:15-0500 Body height 152.4 cm Ivon Batista Other [employer] Other 12-27-2022 11:15-0500 Body mass index (BMI) [Ratio] 53.08 kg/m2 Ivon Batista Other [employer] Other 12-27-2022 11:15-0500 Body temperature 96 [degF] Ivon Batista Other [employer] Other 12-27-2022 11:15-0500 Body weight 123.29 kg Ivon Batista Other [employer] Other 12-27-2022 11:15-0500 Diastolic blood pressure 92 mm[Hg] Ivon Batista Other [employer] Other 12-27-2022 11:15-0500 SaO2% (BldA) [Mass fraction] 96 % Ivon Batista Other [employer] Other 12-27-2022 11:15-0500 Systolic blood pressure 156 mm[Hg] Ivon Batista Other [employer] Other 12-02-2022 11:45-0500 Body height 152.4 cm Ursula Velarde Other [employer] Other 12-02-2022 11:45-0500 Diastolic blood pressure 80 mm[Hg] Ursula Velarde Other [employer] Other 12-02-2022 11:45-0500 SaO2% (BldA) [Mass fraction] 97 % Ursula Velarde Other [employer] Other 12-02-2022 11:45-0500 Systolic blood pressure 126 mm[Hg] Ursula Velarde Other [employer] Other 11-02-2022 12:15-0500 Body height 152.4 cm Michael Dunaway Other [employer] Other 11-02-2022 12:15-0500 Diastolic blood pressure 80 mm[Hg] Michael Dunaway Other [employer] Other 11-02-2022 12:15-0500 SaO2% (BldA) [Mass fraction] 98 % Michael Dunaway Other [employer] Other 11-02-2022 12:15-0500 Systolic blood pressure 140 mm[Hg] Michael Dunaway Other [employer] Other 09-11-2022 11:55-0400 Body height 152.4 cm Kaitlynn Foy Other [employer] Other 09-11-2022 11:55-0400 Body mass index (BMI) [Ratio] 50.77 kg/m2 Kaitlynn Foy Other [employer] Other 09-11-2022 11:55-0400 Body temperature 96.8 [degF] Kaitlynn Foy Other [employer] Other 09-11-2022 11:55-0400 Body weight 117.94 kg Kaitlynn Foy Other [employer] Other 09-11-2022 11:55-0400 Respiratory rate 18 /min Kaitlynn Foy Other [employer] Other 09-11-2022 11:55-0400 SaO2% (BldA) [Mass fraction] 97 % Kaitlynn Foy Other [employer] Other 09-10-2022 12:30-0400 Body height 152.4 cm Michael Emelyn Other [employer] Other 09-10-2022 12:30-0400 Diastolic blood pressure 80 mm[Hg] Michael Emelyn Other [employer] Other 09-10-2022 12:30-0400 SaO2% (BldA) [Mass fraction] 99 % Michael Emelyn Other [employer] Other 09-10-2022 12:30-0400 Systolic blood pressure 120 mm[Hg] Michael Emelyn Other [employer] Other 07-29-2022 17:45-0400 Body height 152.4 cm Michael Emelyn Other [employer] Other 07-29-2022 17:45-0400 Diastolic blood pressure 76 mm[Hg] Michael Emelyn Other [employer] Other 07-29-2022 17:45-0400 SaO2% (BldA) [Mass fraction] 99 % Michael Emelyn Other [employer] Other 07-29-2022 17:45-0400 Systolic blood pressure 124 mm[Hg] Michael Emelyn Other [employer] Other 07-02-2022 13:00-0400 Body height 152.4 cm Michael Emelyn Other [employer] Other 07-02-2022 13:00-0400 Body mass index (BMI) [Ratio] 53.97 kg/m2 Michael Emelyn Other [facility] [employer] Other 07-02-2022 13:00-0400 Body weight 125.38 kg Michael Dunaway Other [email or web address] [facility] [employer] Other 07-02-2022 13:00-0400 Diastolic blood pressure 88 mm[Hg] Michael Dunaway Other [email or web address] [facility] [employer] Other 07-02-2022 13:00-0400 SaO2% (BldA) [Mass fraction] 97 % Michael Dunaway Other [email or web address] [facility] [employer] Other 07-02-2022 13:00-0400 Systolic blood pressure 142 mm[Hg] Michael Dunaway Other [facility] [employer] Other 06-23-2022 12:52-0400 Diastolic blood pressure 64 mm[Hg] DO Robert Ball Work Phone: [facility] 06-23-2022 12:52-0400 Heart rate 73 /min DO Robert Ball Work Phone: [facility] 06-23-2022 12:52-0400 Respiratory rate 20 /min DO Robert Ball Work Phone: [facility] 06-23-2022 12:52-0400 SaO2% (BldA) [Mass fraction] 97 % DO Robert Ball Work Phone: [facility] 06-23-2022 12:52-0400 Systolic blood pressure 132 mm[Hg] DO Robert Ball Work Phone: [facility] 06-23-2022 12:16-0400 Inhaled oxygen flow rate 3 L/min DO Robert Ball Work Phone: [facility] 06-23-2022 10:24-0400 Body height 152.4 cm DO Robert Ball Work Phone: [facility] 06-23-2022 10:24-0400 Body weight 123.37 kg DO Robert Ball Work Phone: [facility] 06-18-2022 12:15-0400 Body height 152.4 cm Michaelrancho Dunaway Other [employer] Other 06-18-2022 12:15-0400 Body mass index (BMI) [Ratio] 53.19 kg/m2 Michaelrancho Dunaway Other [employer] Other 06-18-2022 12:15-0400 Body weight 123.56 kg Michaelrancho Dunaway Other [employer] Other 06-18-2022 12:15-0400 Diastolic blood pressure 78 mm[Hg] Michaelrancho Dunaway Other [employer] Other 06-18-2022 12:15-0400 SaO2% (BldA) [Mass fraction] 96 % Michael Anthonyky Other [employer] Other 06-18-2022 12:15-0400 Systolic blood pressure 146 mm[Hg] Michaelrancho Dunaway Other [employer] Other 05-05-2022 06:31-0400 Body height 152.4 cm DO Robert Ball Work Phone: [facility] 05-05-2022 06:31-0400 Body mass index (BMI) [Ratio] 51.7 kg/m2 DO Robert Ball Work Phone: [facility] 05-05-2022 06:31-0400 Body weight 120.2 kg DO Robert Ball Work Phone: [facility] 03-11-2022 17:15-0400 Body height 152.4 cm Michael Dunaway Other [employer] Other 03-11-2022 17:15-0400 Diastolic blood pressure 70 mm[Hg] Michael Dunaway Other [employer] Other 03-11-2022 17:15-0400 SaO2% (BldA) [Mass fraction] 98 % Michael Dunaway Other [employer] Other 03-11-2022 17:15-0400 Systolic blood pressure 144 mm[Hg] Michael Dunaway Other [employer] Other 03-04-2022 09:59-0400 Blood Pressure Location Taye NILL [facility] [place] 03-04-2022 09:59-0400 Diastolic blood pressure 82 mm[Hg] Taye NILL [facility] [place] 03-04-2022 09:59-0400 Heart rate 72 /min Taye NILL [facility] [place] 03-04-2022 09:59-0400 Respiratory rate 20 /min Taye NILL [facility] [place] 03-04-2022 09:59-0400 Systolic blood pressure 160 mm[Hg] Taye NILL [facility] [place] 02-18-2022 17:00-0400 Body height 152.4 cm Michael Anthonyky Other [employer] Other 02-18-2022 17:00-0400 Body mass index (BMI) [Ratio] 53.51 kg/m2 Michael Dunaway Other [employer] Other 02-18-2022 17:00-0400 Body weight 124.29 kg Michael Dunaway Other [employer] Other 02-18-2022 17:00-0400 Diastolic blood pressure 70 mm[Hg] Michael Dunaway Other [employer] Other 02-18-2022 17:00-0400 SaO2% (BldA) [Mass fraction] 94 % Michael Dunaway Other [employer] Other 02-18-2022 17:00-0400 Systolic blood pressure 130 mm[Hg] Michael Dunaway Other [employer] Other 01-28-2022 17:00-0500 Body height 152.4 cm Usama Batista Other [employer] Other 01-28-2022 17:00-0500 Body mass index (BMI) [Ratio] 50.38 kg/m2 Usama Batista Other [employer] Other 01-28-2022 17:00-0500 Body weight 117.03 kg Usama Batista Other [employer] Other 11-07-2021 12:20-0500 Body height 152.4 cm Quita Simmons Other [employer] Other 11-07-2021 12:20-0500 Body mass index (BMI) [Ratio] 50.38 kg/m2 Quita Simmons Other [employer] Other 11-07-2021 12:20-0500 Body temperature 97.9 [degF] Quita Simmons Other [employer] Other 11-07-2021 12:20-0500 Body weight 117.03 kg Quita Simmons Other [employer] Other 11-07-2021 12:20-0500 Diastolic blood pressure 71 mm[Hg] Quita Simmons Other [employer] Other 11-07-2021 12:20-0500 Respiratory rate 18 /min Quita Simmons Other [employer] Other 11-07-2021 12:20-0500 SaO2% (BldA) [Mass fraction] 96 % Quita Simmons Other [employer] Other 11-07-2021 12:20-0500 Systolic blood pressure 159 mm[Hg] Quita Simmons Other [employer] Other Encounters Encounter Date Encounter Type Care Provider Facility Start: 06-18-2025 End: 06-18-2025 ambulatory Robert Vail DO Work Phone: [facility] Work Phone: Start: 06-18-2025 End: 06-18-2025 Patient encounter procedure Robert Genna DO -[facility] Work Phone: Start: 06-14-2025 End: 06-14-2025 ambulatory Robert Vail DO Work Phone: [facility] Work Phone: Start: 06-14-2025 End: 06-14-2025 Patient encounter procedure Morena Donato APRN TELEPRINTER -[facility] Work Phone: Start: 05-16-2025 End: 05-16-2025 Patient encounter procedure Robert Vail DO -[facility] Work Phone: Start: 05-09-2025 End: 05-09-2025 Bamboo flowsheet Jacqui Harper PT [facility] Start: 05-09-2025 End: 05-09-2025 Bamboo flowsheet Jacqui Harper PT [facility] Start: 05-09-2025 End: 05-09-2025 ambulatory Jacqui Harper PT [facility] Comment on above: Low back pain, unspe cified back pain laterality, unspecified chronicity, unspecified whether sciatica present (Primary Dx) Start: 05-07-2025 End: 05-07-2025 Bamboo flowsheet Gabriel Xiao [employer] OPER[employer] OUTSIDE [facility] Start: 05-07-2025 End: 05-07-2025 Bamboo flowsheet Gabriel Xiao [employer] [facility] Start: 05-07-2025 End: 05-07-2025 ambulatory Gabriel Xiao [employer] [facility] Comment on above: Low back pain, unspe cified back pain laterality, unspecified chronicity, unspecified whether sciatica present (Primary Dx) Start: 05-06-2025 End: 05-06-2025 ambulatory [facility] Work Phone: Start: 05-06-2025 End: 05-06-2025 Patient encounter procedure [facility] Physician [facility] Work Phone: Start: 05-06-2025 End: 05-06-2025 ambulatory [facility] Work Phone: Start: 05-06-2025 End: 05-06-2025 Patient encounter procedure [facility] Physician [facility] Work Phone: Start: 05-03-2025 End: 05-03-2025 Bamboo flowsheet Jacqui Harper PT [facility] Start: 05-03-2025 End: 05-03-2025 Bamboo flowsheet Jacqui Harper PT [facility] Start: 05-03-2025 End: 05-03-2025 ambulatory Jacqui Harper PT [facility] Comment on above: Low back pain, unspe cified back pain laterality, unspecified chronicity, unspecified whether sciatica present (Primary Dx) Start: 04-30-2025 End: 04-30-2025 Bamboo flowsyuly Hagen [employer]PER[employer] OUTS[employer] [facility] Start: 04-30-2025 End: 04-30-2025 Bamboo flowsheet Gabriel Hagen [employer] OPER[employer] OUTS[employer] [facility] Start: 04-30-2025 End: 04-30-2025 ambulatory GABRIEL HAGEN [facility] Comment on above: Low back pain, unspe cified back pain laterality, unspecified chronicity, unspecified whether sciatica present (Primary Dx) Start: 04-26-2025 End: 04-26-2025 Bamboo flowsyuly Hagen [employer] OPER[employer] OUTSIDE [facility] Start: 04-26-2025 End: 04-26-2025 Bamboo flowsheet Gabriel Hagen [employer] OPERATOR OUTSIDE [facility] Start: 04-26-2025 End: 04-26-2025 ambulatory Gabriel Hagen [employer]PER[employer] [facility] Comment on above: Low back pain, unspe cified back pain laterality, unspecified chronicity, unspecified whether sciatica present (Primary Dx) Start: 04-23-2025 End: 04-23-2025 ambulatory Gabriel Hagen [employer] OPER[employer] OUTSIDE [facility] Comment on above: Low back pain, unspe cified back pain laterality, unspecified chronicity, unspecified whether sciatica present (Primary Dx) Start: 04-23-2025 End: 04-23-2025 Bamboo flowsyuly Hagen [employer] OPER[employer] OUTS[employer] [facility] Start: 04-23-2025 End: 04-23-2025 Bamboo flowsheet Gabriel Hagen [employer]PER[employer] [facility] Start: 04-19-2025 End: 04-19-2025 ambulatory JACQUI HARPER Not Available Start: 04-18-2025 Non-patient / Non-visit [facility] Work Phone: Start: 04-15-2025 End: 04-15-2025 Bamboo flowsyuly Harper PT [facility] Start: 04-15-2025 End: 04-15-2025 Bamboo flowsheet Jacqui Harper PT [facility] Start: 04-15-2025 End: 04-15-2025 Patient encounter procedure [facility] Physician [facility] Work Phone: Start: 04-15-2025 End: 04-15-2025 ambulatory Jacqui Harper PT [facility] Comment on above: Low back pain, unspe cified back pain laterality, unspecified chronicity, unspecified whether sciatica present (Primary Dx) Start: 04-11-2025 End: 04-11-2025 Bamboo flowsheet Jacqui Harper PT [facility] Start: 04-11-2025 End: 04-11-2025 Bamboo flowsheet Jacqui Harper PT [facility] Start: 04-11-2025 End: 04-11-2025 ambulatory Jacqui Harper PT [facility] Comment on above: Low back pain, unspe cified back pain laterality, unspecified chronicity, unspecified whether sciatica present (Primary Dx) Start: 04-09-2025 End: 04-09-2025 ambulatory [facility] Work Phone: Start: 04-09-2025 End: 04-09-2025 Patient encounter procedure [facility] Work Phone: Start: 04-04-2025 End: 04-04-2025 ambulatory Gabriel Hagen [employer] OPER[employer] OUTSIDE [facility] Comment on above: Low back pain, unspe cified back pain laterality, unspecified chronicity, unspecified whether sciatica present (Primary Dx) Start: 04-04-2025 End: 04-04-2025 Bamboo flowsheet Gabriel Hagen [employer] OPERATOR OUTSIDE [facility] Start: 04-04-2025 End: 04-04-2025 Bamboo flowsheet Gabriel Hagen [employer] OPER[employer] OUTS[employer] [facility] Start: 04-01-2025 End: 04-01-2025 ambulatory Jacqui Harper PT [facility] Comment on above: Low back pain, unspe cified back pain laterality, unspecified chronicity, unspecified whether sciatica present (Primary Dx) Start: 03-28-2025 End: 03-28-2025 ambulatory [facility] Work Phone: Start: 03-28-2025 End: 03-28-2025 Patient encounter procedure [facility] Work Phone: Start: 03-21-2025 End: 03-21-2025 Bamboo flowsheet Jacqui Harper PT [facility] Start: 03-21-2025 End: 03-21-2025 Bamboo flowsheet Jacqui Harper PT [facility] Start: 03-21-2025 End: 03-21-2025 ambulatory Jacqui Harper PT [facility] Comment on above: Low back pain, unspe cified back pain laterality, unspecified chronicity, unspecified whether sciatica present (Primary Dx) Start: 03-20-2025 End: 03-20-2025 ambulatory Robert Ball DO Work Phone: [facility] Work Phone: Start: 03-20-2025 End: 03-20-2025 Patient encounter procedure Robert Ball DO Work Phone: [facility] Work Phone: Start: 03-14-2025 End: 03-14-2025 Bamboo flowsheet Jacqui Harper PT [facility] Start: 03-14-2025 End: 03-14-2025 Bamboo flowsheet Jacqui Harper PT [facility] Start: 03-14-2025 End: 03-14-2025 ambulatory Jacqui Harper PT [facility] Comment on above: Low back pain, unspe cified back pain laterality, unspecified chronicity, unspecified whether sciatica present (Primary Dx) Start: 03-12-2025 End: 03-12-2025 ambulatory Robert Ball DO Work Phone: [facility] Work Phone: Start: 03-12-2025 End: 03-12-2025 Patient encounter procedure Robert Ball DO Work Phone: [facility] Work Phone: Start: 03-12-2025 Non-patient / Non-visit Robert Ball DO Work Phone[facility] Start: 02-28-2025 End: 02-28-2025 Bamboo flowsheet Jacqui Harper PT [facility] Start: 02-28-2025 End: 02-28-2025 Bamboo flowsheet Jacqui Harper PT [facility] Start: 02-28-2025 End: 02-28-2025 ambulatory Jacqui Harper PT [facility] Comment on above: Low back pain, unspe cified back pain laterality, unspecified chronicity, unspecified whether sciatica present (Primary Dx) Start: 02-26-2025 End: 02-26-2025 ambulatory Taye Lopez BHASK[facility]Godwin Facility:[facility] Start: 02-26-2025 End: 02-26-2025 ambulatory Robert Vail DO Work Phone: [facility] Work Phone: Start: 02-26-2025 End: 02-26-2025 Patient encounter procedure Robert Ball DO Work Phone: [facility] Physician [facility] Work Phone: Start: 02-25-2025 End: 02-25-2025 Bamboo flowsheet Tierney Kelbley [employer] OPERATOR OUTSIDE [facility] Start: 02-25-2025 End: 02-25-2025 Bamboo flowsheet Tierney Kelbley [employer] OPERATOR OUTS[facility] Start: 02-25-2025 End: 02-25-2025 ambulatory Tierney Kelbley [employer] OPER[employer] OUTS[employer] [facility] Comment on above: Low back pain, unspe cified back pain laterality, unspecified chronicity, unspecified whether sciatica present (Primary Dx) Start: 02-21-2025 ambulatory Taye MUROL Facility:[facility] Start: 02-20-2025 End: 02-20-2025 Bamboo flowsheet Tierney Kelbley [employer] OPERATOR OUTSIDE [facility] Start: 02-20-2025 End: 02-20-2025 Bamboo flowsheet Tierney Kelbley [employer] OPERATOR OUTSIDE [facility] Start: 02-20-2025 End: 02-20-2025 ambulatory Tierney Schuster [employer] OPER[employer] OUTS[employer] [facility] Comment on above: Low back pain, unspe cified back pain laterality, unspecified chronicity, unspecified whether sciatica present (Primary Dx) Start: 02-14-2025 Non-patient / Non-visit Robert Vail DO Work Phone: [facility] Work Phone: Start: 02-14-2025 End: 02-14-2025 ambulatory Robert Vail DO Work Phone: [facility] Work Phone: Start: 02-14-2025 End: 02-14-2025 Patient encounter procedure Robert Vail DO Work Phone: [facility] Work Phone: Start: 02-13-2025 End: 02-13-2025 ambulatory GABRIEL HAGEN Not Available Start: 02-07-2025 End: 02-07-2025 Bamboo flowsheet Tierney Johnsony [employer] OPERATOR OUTSIDE [facility] Start: 02-07-2025 End: 02-07-2025 Bamboo flowsheet Tierney Johnsony [employer] OPERATOR OUTSIDE [facility] Start: 02-07-2025 End: 02-07-2025 ambulatory Tierney Schuster [employer] OPERATOR OUTS[employer] [facility] Comment on above: Low back pain, unspe cified back pain laterality, unspecified chronicity, unspecified whether sciatica present (Primary Dx) Start: 02-04-2025 End: 02-04-2025 ambulatory TIERNEY SCHUSTER Not Available Start: 01-28-2025 End: 01-28-2025 Telephone encounter Jacqui Harper PT [facility] Comment on above: Cx PT 01/28/25 Start: 01-23-2025 End: 01-23-2025 Bamboo flowsheet Jacqui Harper PT [facility] Start: 01-23-2025 End: 01-23-2025 Garettboo flowsheet Jacqui Harper PT [facility] Start: 01-23-2025 End: 01-23-2025 ambulatory Jacqui Harper PT [facility] Comment on above: Low back pain, unspe cified back pain laterality, unspecified chronicity, unspecified whether sciatica present (Primary Dx) Start: 01-21-2025 End: 01-21-2025 ambulatory Gabriel Hagen BARREL LATHE OPERATOR OUTSIDE [facility] Comment on above: Low back pain, unspe cified back pain laterality, unspecified chronicity, unspecified whether sciatica present (Primary Dx) Start: 01-21-2025 End: 01-21-2025 Bamboo flowsheet Gabriel Hagen BARREL LATHE OPERATOR OUTSIDE [facility] Start: 01-21-2025 End: 01-21-2025 Bamboo flowsheet Gabriel Hagen BARREL LATHE OPERATOR OUTSIDE [facility] Start: 01-17-2025 End: 01-17-2025 Bamboo flowsheet Gabriel Hagen BARREL LATHE OPERATOR OUTSIDE [facility] Start: 01-17-2025 End: 01-17-2025 Bamboo flowsheet Gabriel Hagen BARREL LATHE OPERATOR OUTSIDE [facility] Start: 01-17-2025 End: 01-18-2025 ambulatory Gabriel Xiao BARREL LATHE OPERATOR OUTSIDE [facility] Comment on above: Low back pain, unspe cified back pain laterality, unspecified chronicity, unspecified whether sciatica present (Primary Dx) Start: 01-16-2025 End: 01-16-2025 ambulatory Robert Vail DO Work Phone: [facility] Work Phone: Start: 01-16-2025 End: 01-16-2025 Patient encounter procedure Robert Vail DO Work Phone: [facility] Work Phone: Start: 01-14-2025 End: 01-14-2025 Bamboo flowsheet Jacqui Harper PT [facility] Start: 01-14-2025 End: 01-14-2025 Bamboo flowsheet Jacqui Harper PT [facility] Start: 01-14-2025 End: 01-14-2025 ambulatory Jacqui Harper PT [facility] Comment on above: Low back pain, unspe cified back pain laterality, unspecified chronicity, unspecified whether sciatica present (Primary Dx) Start: 01-04-2025 End: 01-04-2025 ambulatory Robert Ball DO Work Phone: [facility] Work Phone: Start: 01-04-2025 End: 01-04-2025 Patient encounter procedure Robert Ball DO Work Phone: [facility] Work Phone: Start: 12-26-2024 Non-patient / Non-visit Robert Ball DO Work Phone: [facility] Health Pain Mgmt Work Phone: Start: 12-26-2024 End: 12-26-2024 Admission to same day surgery center Robert Ball DO Work Phone: [facility]-Digestive [facility] Work Phone: Start: 12-26-2024 End: 12-26-2024 ambulatory Robert Ball DO Work Phone: [facility] Work Phone: Start: 12-24-2024 End: 12-24-2024 ambulatory Robert Ball DO Work Phone: [facility] Work Phone: Start: 12-24-2024 End: 12-24-2024 Patient encounter procedure Robert Ball DO Work Phone: [facility] [place] Work Phone: Start: 12-12-2024 End: 12-12-2024 ambulatory [facility] Work Phone: Start: 12-12-2024 End: 12-12-2024 Patient encounter procedure [facility] Physician [facility] Work Phone: Start: 12-12-2024 Non-patient / Non-visit [facility] Work Phone: Start: 12-10-2024 End: 12-10-2024 ambulatory [facility] Work Phone: Start: 12-10-2024 End: 12-10-2024 Patient encounter procedure [facility] Health Pain Mgmt Work Phone: Start: 12-07-2024 End: 12-07-2024 ambulatory [facility] Work Phone: Start: 12-07-2024 End: 12-07-2024 Patient encounter procedure [facility] Work Phone: Start: 09-04-2024 End: 09-04-2024 ambulatory DO Robert Ball Work Phone: [facility] Work Phone: Start: 09-04-2024 End: 09-04-2024 Patient encounter procedure DO Robert Ball Work Phone: [facility] Pain Management Work Phone: Start: 08-28-2024 End: 08-28-2024 ambulatory DO Robret Ball Work Phone: [facility] Work Phone: Start: 08-28-2024 End: 08-28-2024 Patient encounter procedure DO Robert Ball Work Phone: [facility] Physician [facility] Work Phone: Start: 08-28-2024 Non-patient / Non-visit DO Robert Ball Work Phone: [facility] Physician [facility] Work Phone: Start: 08-24-2024 End: 08-24-2024 ambulatory DO Robert Ball Work Phone: [facility] Work Phone: Start: 08-24-2024 End: 08-24-2024 Patient encounter procedure DO Robert Ball Work Phone: [facility] Work Phone: Start: 08-10-2024 Non-patient / Non-visit DO Robert Ball Work Phone: [facility] Work Phone: Start: 08-10-2024 End: 08-10-2024 Admission to same day surgery center DO Robert Ball Work Phone: [facility]-Digestive Health Work Phone: Start: 08-10-2024 End: 08-10-2024 ambulatory DO Robert Ball Work Phone: [facility] Work Phone: Start: 08-09-2024 End: 08-09-2024 Patient encounter procedure DO Robert Ball Work Phone: [facility] [place] Work Phone: Start: 08-09-2024 End: 08-09-2024 ambulatory DO Robert Ball Work Phone: [facility] Work Phone: Start: 08-06-2024 End: 08-06-2024 ambulatory DO Robert Ball Work Phone: [facility] Work Phone: Start: 08-06-2024 End: 08-06-2024 Patient encounter procedure DO Robert Ball Work Phone: [facility] Work Phone: Start: 07-31-2024 End: 07-31-2024 ambulatory DO Robert Ball Work Phone: [facility] Work Phone: Start: 07-31-2024 End: 07-31-2024 Patient encounter procedure DO Robert Ball Work Phone: [facility] Work Phone: Start: 06-15-2024 End: 06-15-2024 Patient encounter procedure DO Robert Ball Work Phone: [facility]-MRI [facility] [place] Work Phone: Start: 06-15-2024 End: 06-15-2024 ambulatory DO Robert Ball Work Phone: [facility] Work Phone: Start: 05-28-2024 End: 05-28-2024 ambulatory DO Robert Ball Work Phone: [facility] Work Phone: Start: 05-28-2024 End: 05-28-2024 Patient encounter procedure DO Robert Ball Work Phone: [facility] Pain Management Work Phone: Start: 05-16-2024 Non-patient / Non-visit DO Robert Ball Work Phone: [facility] Work Phone: Start: 05-10-2024 End: 05-10-2024 ambulatory DO Robert Ball Work Phone: [facility] Work Phone: Start: 05-10-2024 End: 05-10-2024 Patient encounter procedure DO Robert Ball Work Phone: [facility] Work [facility] Start: 05-10-2024 Non-patient / Non-visit DO Robret Ball Work Phone: [facility] Physician [facility] Work Phone: Start: 05-09-2024 End: 05-09-2024 ambulatory DO Robert Ball Work Phone: [facility] Work Phone: Start: 05-09-2024 End: 05-09-2024 Patient encounter procedure DO Robert Ball Work Phone: [facility]-XRay [facility] [place] Work Phone: Start: 05-07-2024 End: 05-07-2024 Patient encounter procedure DO Robert Ball Work Phone: [facility] [place] Work Phone: Start: 05-07-2024 End: 05-07-2024 ambulatory DO Robert Ball Work Phone: [facility] Work Phone: Start: 04-30-2024 End: 04-30-2024 ambulatory [facility] Work Phone: Start: 04-30-2024 End: 04-30-2024 Patient encounter procedure [facility] Pain Management Work Phone: Start: 04-30-2024 Non-patient / Non-visit [facility] Work Phone: Start: 03-29-2024 End: 03-29-2024 Patient encounter procedure [facility] Work Phone: Start: 02-17-2024 Non-patient / Non-visit [facility] Work Phone: Start: 02-15-2024 End: 02-15-2024 ambulatory DO Robert Ball Work Phone: [facility] Work Phone: Start: 02-15-2024 End: 02-15-2024 Patient encounter procedure DO Robert Ball Work Phone: [facility] Work Phone: Start: 01-12-2024 End: 01-12-2024 ambulatory DO Robert Ball Work Phone: [facility] Work Phone: Start: 01-12-2024 End: 01-12-2024 Departed Referred DO Robert Ball Work Phone: [facility] [place] Work Phone: Start: 12-29-2023 End: 12-29-2023 ambulatory Robert Ball Other [facility] [employer] Other Start: 12-29-2023 Telephone encounter Robert Ball [facility] Start: 12-22-2023 End: 12-22-2023 ambulatory Robert Ball Other [employer] Other Start: 12-22-2023 Office outpatient visit 25 minutes Robert Ball [facility] Start: 12-09-2023 End: 12-09-2023 ambulatory Robert Ball Other [employer] Other Start: 12-09-2023 Office outpatient visit 15 minutes Robert Ball [facility] Start: 12-09-2023 Patient encounter procedure DO Robert Ball Work Phone: [facility]ician Group- Start: 11-11-2023 End: 11-11-2023 ambulatory Robert Ball Other [employer] Other Start: 11-11-2023 Telephone encounter Robert Ball [facility] Start: 11-10-2023 End: 11-10-2023 ambulatory Robert Ball Other [employer] Other Start: 11-10-2023 Telephone encounter Robert Ball [facility] Start: 11-04-2023 End: 11-04-2023 ambulatory Robert Ball Other [employer] Other Start: 11-04-2023 Telephone encounter Robert Ball [facility] Start: 10-19-2023 End: 10-19-2023 ambulatory Robert Ball Other [employer] Other Start: 10-19-2023 Telephone encounter Robert Ball [facility] Start: 09-21-2023 End: 09-21-2023 ambulatory Robert Ball Other [employer] Other Start: 09-21-2023 Office outpatient visit 25 minutes Robert Ball [facility] Start: 09-08-2023 End: 09-08-2023 ambulatory Robert Ball Other [employer] Other Start: 09-08-2023 Telephone encounter Robert Ball [facility] Start: 08-29-2023 End: 08-29-2023 ambulatory Robert Vail Other [employer] Other Start: 08-29-2023 Telephone encounter Robert Genna [facility] Start: 08-16-2023 End: 08-16-2023 ambulatory Robert Ball Other [employer] Other Start: 08-16-2023 Telephone encounter Robert Ball [facility] Start: 08-15-2023 End: 08-15-2023 ambulatory Robert Ball Other [employer] Other Start: 08-15-2023 Transitional care manage srvc 14 day discharge Robert Vail [facility] Start: 07-25-2023 End: 07-25-2023 ambulatory Robert Ball Other [employer] Other Start: 07-25-2023 Telephone encounter Robert Ball [facility] Start: 07-21-2023 End: 07-21-2023 ambulatory Robert Ball Other [employer] Other Start: 07-21-2023 Telephone encounter Robert Ball [facility] Start: 07-19-2023 End: 07-19-2023 ambulatory Robert Ball Other [employer] Other Start: 07-19-2023 Telephone encounter Robert Ball [facility] Start: 07-11-2023 End: 07-11-2023 ambulatory Robert Ball Other [employer] Other Start: 07-11-2023 Office outpatient visit 25 minutes Robert Ball [facility] Start: 05-25-2023 End: 05-25-2023 ambulatory Robert Ball Other [employer] Other Start: 05-25-2023 Office outpatient visit 15 minutes Robert Ball [facility] Start: 04-26-2023 End: 04-26-2023 ambulatory Robert Ball Other [employer] Other Start: 04-26-2023 Telephone encounter Robert Vail [facility] Start: 04-08-2023 End: 04-08-2023 ambulatory Robert Genna Other [employer] Other Start: 04-08-2023 Office outpatient visit 15 minutes Robert Vail [facility] Start: 04-07-2023 End: 04-08-[address] ROBERT VAIL Facility: Start: 03-23-2023 End: 03-23-2023 ambulatory Robert Vail Other [employer] Other Start: 03-23-2023 Office outpatient visit 15 minutes Robert Vail [facility] Start: 03-16-2023 End: 03-16-2023 ambulatory Robert Vail Other [employer] Other Start: 03-16-2023 Telephone encounter Robert Vail [facility] Start: 03-14-2023 End: 03-15-[address] ROBERT VAIL [facility] [employer] Other Start: 03-14-2023 Telephone encounter Robert Vail [facility] Start: 03-10-2023 End: 03-10-2023 ambulatory Robert Vail Other [employer] Other Start: 03-10-2023 Office outpatient visit 15 minutes Robert Vail [facility] Start: 03-10-2023 Telephone encounter Robert Vail [facility] Start: 03-02-2023 End: 03-02-2023 ambulatory Robert Vail Other [employer] Other Start: 03-02-2023 Patient encounter procedure Robert Genna [facility] Start: 02-14-2023 End: 02-14-2023 ambulatory Robert Vail Other [employer] Other Start: 02-14-2023 Office outpatient visit 25 minutes Michael Emelyn [facility] Start: 02-14-2023 Telephone encounter Robert Vail [facility] Start: 02-03-2023 (PROC) PROCEDURE Michael Ramírez [facility] Start: 02-03-2023 End: 02-03-2023 ambulatory Michael Dunaway Other [employer] Other Start: 01-27-2023 End: 01-27-2023 ambulatory Michael Dunaway Other [employer] Other Start: 01-27-2023 Follow-up encounter Michael Dunaway [facility] Start: 01-19-2023 End: 01-19-2023 ambulatory Robert Vail Other [employer] Other Start: 01-19-2023 Telephone encounter Robert ALVES Count Includes [facility] Start: 01-04-2023 (PROC) PROCEDURE Michaelrancho Ramírez [facility] Start: 01-04-2023 End: 01-04-2023 ambulatory Michael Dunaway Other [employer] Other Start: 12-31-2022 End: 12-31-2022 ambulatory Michael Dunaway Other [employer] Other Start: 12-31-2022 Office outpatient visit 25 minutes Michael Dunaway [facility] Start: 12-27-2022 End: 12-27-2022 ambulatory Ivon Batista Other [employer] Other Start: 12-27-2022 Office outpatient visit 15 minutes Ivon Batista [facility] Start: 12-02-2022 End: 12-02-2022 ambulatory Ursula Velarde Other [employer] Other Start: 12-02-2022 Office outpatient visit 15 minutes Ursula Velarde [facility] Start: 11-18-2022 (PROC) PROCEDURE Michael Ramírez [facility] Start: 11-18-2022 End: 11-18-2022 ambulatory Michael Dunaway Other [employer] Other Start: 11-03-2022 Pre-procedure evaluation check Robert Vail Other [employer] Other Start: 11-02-2022 End: 11-02-2022 ambulatory Michael Dunwaay Other [employer] Other Start: 11-02-2022 Office outpatient visit 25 minutes Michaelrancho Dunaway [facility] Start: 10-26-2022 (Procedure) Short Michael Dunaway [facility] Start: 10-26-2022 End: 10-26-2022 ambulatory Michael Dunaway Other [employer] Other Start: 09-11-2022 End: 09-11-2022 ambulatory Kaitlynn Foy Other [employer] Other Start: 09-11-2022 Office outpatient visit 25 minutes Kaitlynn Foy [facility] Start: 09-10-2022 End: 09-10-2022 ambulatory Michael Dunaway Other [employer] Other Start: 09-10-2022 Office outpatient visit 15 minutes Michael Dunaway [facility] Start: 08-24-2022 (Procedure) Short Michael Dunaway [facility] Start: 08-24-2022 End: 08-24-2022 ambulatory Michael Dunaway Other [employer] Other Start: 08-03-2022 (Procedure) Short Michael Dunaway [facility] Start: 08-03-2022 End: 08-03-2022 ambulatory Michael Dunaway Other [employer] Other Start: 07-29-2022 End: 07-29-2022 ambulatory Michael Dunaway Other [employer] Other Start: 07-29-2022 Office outpatient visit 15 minutes Michael Emelyn [facility] Start: 07-25-[address] ROBERT VAIL Facili ty:[facility] Start: 07-22-2022 (Procedure) Short Michael Dunaway [facility] Start: 07-22-2022 End: 07-22-2022 ambulatory Michael Emelyn Other [place] [employer] Other Start: 07-06-2022 End: 07-07-[address] ROBERT VAIL Facility:[facility] Start: 07-02-2022 End: 07-02-2022 ambulatory Michael Emelyn Other [place] [facility] Other Start: 07-02-2022 Office outpatient visit 25 minutes Michael Emelyn [facility] Start: 06-23-2022 (Procedure) Short Michael Dunaway [facility] Start: 06-23-2022 End: 06-23-2022 ambulatory Michael Dunaway Other [employer] Other Start: 06-23-2022 End: 06-23-2022 Admission to same day surgery center DO [facility] Start: 06-18-2022 End: 06-18-2022 ambulatory Michael Dunaway Other [employer] Other Start: 06-18-2022 Office outpatient visit 25 minutes Michael Emelyn [facility] Start: 05-05-2022 End: 05-05-2022 Patient encounter procedure DO Robert Vail [facility] Start: 04-30-2022 End: 05-01-[address] ROBERT VAIL Facility:[facility] Start: 04-13-2022 End: 04-14-[address] ROBERT VAIL Facility:[facility] Start: 04-01-2022 End: 04-01-2022 ambulatory Maico Lloyd Other [employer] Other Start: 04-01-2022 Telephone encounter Maico Lloyd [facility] Start: 03-19-2022 End: 03-19-2022 ambulatory Michael Dunaway Other [employer] Other Start: 03-19-2022 Telephone encounter Michael Dunaway [facility] Start: 03-11-2022 End: 03-11-2022 ambulatory Michael Dunaway Other [employer] Other Start: 03-11-2022 Office outpatient visit 25 minutes Michaelrancho Dunaway [facility] Start: 03-04-2022 End: 03-04-2022 Patient encounter procedure Taye VAZQUEZ [facility] [place] Start: 02-25-2022 (Procedure) Short Michael Dunaway [facility] Start: 02-25-2022 End: 02-25-2022 ambulatory Michael Dunaway Other [employer] Other Start: 02-18-2022 End: 02-18-2022 ambulatory Michael Dunaway Other [employer] Other Start: 02-18-2022 Office outpatient ne w 45 minutes Michael Emelyn [facility] Start: 01-28-2022 End: 01-28-2022 ambulatory Usama Batista Other [employer] Other Start: 01-28-2022 Office outpatient ne w 45 minutes Usama Batista [facility] Start: 01-20-2022 Adult health examination Robert Vail Other [employer] Other Start: 11-07-2021 End: 11-07-2021 ambulatory Quita Iris Other [facility] [employer] Other Start: 11-07-2021 Office outpatient ne w 20 minutes Quita Iris [facility] Procedures Date Procedure Procedure Detail Performing Clinician Start: 12-26-2024 Local anesthetic sacral epidural block Robert Vail DO Work Phone: Start: 08-10-2024 Local anesthetic sacral epidural block DO Robert Vail Work Phone: Start: 06-15-2024 MR lumbar spine wo con DO Robert Vail Work Phone: Start: 05-09-2024 Pelvis X-ray DO Robert Vail Work Phone: Start: 05-09-2024 Radiography of sacrococcygeal spine DO Robert Vail Work Phone: Start: 05-09-2024 X-ray of lumbar spine, four views DO Clive Vail Work Phone: Start: 01-12-2024 Aerobic microbial culture DO Robert [...] NILL Depression screening Perez Vail Other Esophagogastroduodenoscopy M ichael NILL insertion of jaspreet filter Taye NILL Lap sigmoid resection Zina montano NILL orif right femur Taye NIL L Repair of musculoten dinous cuff of shoulder Taye NILL right knee arthroscopy Howard boston NILL Screening for malign ant neoplasm of breast Robert Vail Other Plan of Treatment Date Care Activity Detail Author Start: 04-07-2026 End: 04-07-2026 Patient encounter procedure 04/07/2026 11:15 AM EDT Office Visit [facility] [address] [place] [address] Jr. Fernando Silva, DO [address] [facility] [address] [place] [address] [facility] Start: 05-09-2025 End: 05-09-2025 ambulatory 05/09/2025 10:30 AM EDT Treatment [facility] [address] [facility] [address] [place] [address] Jacqui Harper, PT [facility] Start: 05-07-2025 End: 05-07-2025 ambulatory 05/07/2025 12:30 PM EDT Treatment [facility] [address] [facility] [address] [place] [address] Gabriel Hagen, BARREL LATHE OPERATOR OUTSIDE [facility] Start: 05-03-2025 End: 05-03-2025 ambulatory [facility] Start: 04-30-2025 End: 04-30-2025 ambulatory [facility] Start: 04-26-2025 End: 04-26-2025 ambulatory 04/26/2025 9:00 AM EDT Treatment [facility] [address] [facility] [address] [place] [address] Gabriel Hagen, BARREL LATHE OPERATOR OUTSIDE [facility] Start: 04-23-2025 End: 04-23-2025 ambulatory 04/23/2025 4:30 PM EDT Treatment [facility] [address] [facility] [address] [place] [address] Gabriel Hagen, BARREL LATHE OPERATOR OUTSIDE Low back pain, unspecified back pain laterality, unspecified chronicity, unspecified whether sciatica present (Primary Dx) [facility] Comment on above: Low back pain, unspe cified back pain laterality, unspecified chronicity, unspecified whether sciatica present (Primary Dx) Start: 04-17-2025 End: 04-17-2025 ambulatory 04/17/2025 11:00 AM EDT Treatment [facility] [address] [facility] [address] [place] [address] Jacqui Harper, PT [facility] Start: 04-15-2025 End: 04-15-2025 ambulatory 04/15/2025 9:30 AM EDT Treatment [facility] [address] [facility] [address] [place] [address] Jacqui Harper, PT [facility] Start: 04-11-2025 End: 04-11-2025 ambulatory 04/11/2025 9:00 AM EDT Treatment [facility] [address] [facility] [address] [place] [address] Jacqui Harper, PT [facility] Start: 04-08-2025 End: 04-08-2025 ambulatory 04/08/2025 1:00 PM EDT Treatment [facility] [address] [facility] [address] [place] [address] Gabriel Hagen, BARREL LATHE OPERATOR OUTSIDE [facility] Start: 04-01-2025 End: 04-01-2025 ambulatory 04/01/2025 9:30 AM EDT Treatment [facility] [address] [facility] [address] [place] [address] Jacqui Harper, PT [facility] Start: 03-21-2025 End: 03-21-2025 ambulatory 03/21/2025 8:30 AM EDT Treatment [facility] [address] [facility] [address] [place] [address] Jacqui Harper, PT [facility] Start: 03-14-2025 End: 03-14-2025 ambulatory [facility] Comment on above: Arrived Start: 02-28-2025 End: 02-28-2025 ambulatory [facility] Start: 02-25-2025 End: 02-25-2025 ambulatory 02/25/2025 12:00 PM EDT Treatment [facility] [address] [facility] [address] [place] [address] Tierney Schuster, BARREL LATHE OPERATOR OUTSIDE [facility] Start: 02-20-2025 End: 02-20-2025 ambulatory 02/20/2025 1:00 PM EDT Treatment [facility] [facility] PT [address] [facility] [address] [place] [address] Tierney Schuster, BARREL LATHE OPERATOR OUTSIDE Arrived [facility] Comment on above: Arrived Start: 02-13-2025 End: 02-13-2025 ambulatory 02/13/2025 1:00 PM EDT Treatment [facility] [address] [facility] [address] [place] [address] Gabriel Hagen, BARREL LATHE OPERATOR OUTSIDE [facility] Start: 02-11-2025 End: 02-11-2025 ambulatory 02/11/2025 12:30 PM EDT Treatment [facility] [address] [facility] [address] [place] [address] Amparo Giron, BARREL LATHE OPERATOR OUTSIDE [facility] Start: 01-31-2025 End: 01-31-2025 ambulatory 01/31/2025 12:00 PM EST Treatment [facility] [address] [facility] [address] [place] [address] Gabriel Hagen, BARREL LATHE OPERATOR OUTSIDE [facility] Start: 01-28-2025 End: 01-28-2025 ambulatory 01/28/2025 12:00 PM EST Treatment [facility] [address] [facility] [address] [place] [address] Jacqui Harper, PT [facility] Start: 01-23-2025 End: 01-23-2025 ambulatory [facility] Comment on above: Low back pain, unspe cified back pain laterality, unspecified chronicity, unspecified whether sciatica present (Primary Dx) Start: 01-21-2025 End: 01-21-2025 ambulatory [facility] Comment on above: Arrived Start: 01-17-2025 End: 01-17-2025 ambulatory [facility] Comment on above: Arrived Start: 01-14-2025 End: 01-14-2025 ambulatory 01/14/2025 11:00 AM EST Evaluation [facility] [address] [facility] [address] [place] [address] Jacqui Harper, PT Arrived [facility] Comment on above: Arrived Start: 12-26-2024 [facility] Start: 08-10-2024 [facility] Start: 01-12-2024 Superficial Wound Culture Superficial Wound Culture [facility] Start: 06-23-2022 [facility] Work Phone: Start: 05-05-2022 [facility] Work Phone: Start: 07-29-2018 Pneumococcal Vaccine : 65+ Years (2 of 2 - PCV) Pneumococcal Vaccine: 65+ Years (2 of 2 - PCV) [facility] aPTT in Platelet poo r plasma by Coagulation assay [facility] Comprehensive metabo lic 1999 panel - Serum or Plasma [facility] Comprehensive metabo lic 1999 panel - Serum or Plasma [facility] Microalbumin [Mass/volume] in Urine [facility] MR Lumbar spine WO contrast [facility] Patient Education [facility] Work Phone: Patient referral [facility] Work Phone: XR Lumbar spine 4 Views [facility] XR Pelvis 1 or 2 Views [facility] XR Sacrum and Coccyx GE 2 Views [facility] Immunizations Immunization Date Immunization Notes Care Provider Fa fritz 08-06-2024 influenza, high dose seasonal, preservative-free DO Robert Vail Work Phone: [facility] 08-15-2023 influenza, high dose seasonal, preservative-free Robert Vail Other [email or web address] [facility] [employer] Other 08-15-2023 influenza virus vaccine, unspecified formulation DO Robert Vail Work Phone: [facility] 10-13-2022 Influenza vaccine, quadrivalent, adjuvanted DO Robert Vail Work Phone: [facility] 10-13-2022 influenza virus vaccine, split virus (incl. purified surface antigen) Robert Vail Other [employer] Other 10-13-2022 influenza virus vaccine, unspecified formulation DO Robert Vail Work Phone: [facility] 10-08-2022 influenza virus vaccine, unspecified formulation DO Robert Vail Work Phone: [facility] 10-08-2022 influenza, high dose seasonal, preservative-free Robert Vail Other [facility] [employer] Other 10-05-2021 COVID-19 Vaccine Pfi zer - Documentation Purposes Only Robert Vail Other [facility] 09-02-2021 influenza virus vaccine, split virus (incl. purified surface antigen) Robert Vail Other [facility] [employer] Other 09-02-2021 influenza virus vaccine, unspecified formulation DO Glance Work Phone: [facility] 02-11-2021 COVID-19 Vaccine Pfi zer - Documentation Purposes Only Robert Vail Other [facility] 01-21-2021 COVID-19 Vaccine Pfi zer - Documentation Purposes Only Robert Vail Other [facility] 08-25-2020 influenza virus vaccine, split virus (incl. purified surface antigen) Robert Vail Other [facility] [employer] Other 08-25-2020 influenza virus vaccine, unspecified formulation DO Glance Work Phone: [facility] 08-30-2019 influenza virus vaccine, split virus (incl. purified surface antigen) Robert Vail Other [facility] [employer] Other 08-30-2019 influenza virus vaccine, unspecified formulation DO Robert Appear Here Work Phone: [facility] 10-11-2018 influenza, injectabl e, quadrivalent, preservative free DO Glance Work Phone: [facility] 09-18-2018 influenza virus vaccine, split virus (incl. purified surface antigen) Robert Vail Other [facility] [employer] Other 09-18-2018 influenza virus vaccine, unspecified formulation DO Glance Work Phone: [facility] 09-18-2018 Seasonal trivalent influenza vaccine, adjuvanted, preservative free DO Robert Appear Here Work Phone: [facility] 08-17-2017 influenza virus vaccine, split virus (incl. purified surface antigen) Robert Vail Other [employer] Other 08-17-2017 influenza virus vaccine, unspecified formulation DO Robert Appear Here Work Phone: [facility] 08-17-2017 influenza, high dose seasonal, preservative-free DO Robert Appear Here Work Phone: [facility] 07-29-2017 pneumococcal polysaccharide vaccine, 23 valent Robert Vail Other [facility] 02-14-2017 influenza virus vaccine, split virus (incl. purified surface antigen) Robert Vail Other [employer] Other 02-14-2017 influenza virus vaccine, unspecified formulation DO [employer] Work Phone: [facility] 10-07-2015 pneumococcal conjuga te vaccine, 13 valent Robert Vail Other [facility] 08-19-2015 influenza virus vaccine, split virus (incl. purified surface antigen) Robert Appear Here Other [facility] [employer] Other 08-19-2015 influenza virus vaccine, unspecified formulation DO [employer] Work Phone: [facility] 09-19-2014 tetanus and diphther ia toxoids, adsorbed, preservative free, for adult use (5 Lf of tetanus toxoid and 2 Lf of diphtheria toxoid) Robert Appear Here Other [facility] 08-17-2013 tetanus and diphther ia toxoids, adsorbed, preservative free, for adult use (5 Lf of tetanus toxoid and 2 Lf of diphtheria toxoid) [employer] Other [facility] 08-02-2012 tetanus and diphther ia toxoids, adsorbed, preservative free, for adult use (5 Lf of tetanus toxoid and 2 Lf of diphtheria toxoid) Robert Vail Other [facility] 06-04-2011 zoster vaccine, live DO Benj anand Vail Work Phone: [facility] 07-03-2009 pneumococcal polysaccharide vaccine, 23 valent Robert Vail Other [facility] Payers Date Payer Category Payer Unknown [id number] 2024 Self-pay [id number] 2010 Private Health Insurance [id number] [id number] 2010 Unknown [id number] 2006 Medicare MEDICARE [id number] 1959 Medicare [id number] .[id number] 1959 Self-pay [id number] 1959 Unknown [id number] 2.16.840.1.808490.19 1941 Unknown [id number] .16840.1.062081.3.579. 2.593 1941 Unknown [id number] 2.16840.1.427062.3.579. 2.593 1941 Unknown [id number] 2.16.840.1.253017.3.579. 2.593 1941 Unknown [id number] 2.16.840.1.462690.3.579. 2.593 1941 Unknown [id number] 2.16.840.1.906507.3.579. 2.593 1941 Unknown [id number] 2.16.840.1.134541.3.579. 2.593 1941 Unknown [id number] 2.16.840.1.610855.3.579. 2.727 1941 Unknown [id number] 2.16.840.1.212601.3.579. 2.727 1941 Unknown [id number] 2.16.840.1.291743.3.579. 2.727 1941 Unknown [id number] 2.16.840.1.648747.3.579. 2.1259 1941 Unknown [id number] 2.16.840.1.650826.3.579. 2.1259 1941 Unknown [id number] 2.16.840.1.174982.3.579. 2.1259 1941 Unknown [id number] 2.16.840.1.718001.3.579. 2.1259 1941 Unknown [id number] 2.16.840.1.612896.3.579. 2.1259 1941 Unknown [id number] 2.16.840.1.519750.3.579. 2.1259 1941 Unknown [id number] 2.16.840.1.137458.3.579. 2.1259 1941 Unknown [id number] 2.16.840.1.021000.3.579. 2.1259 1941 Unknown [id number] 2.16.840.1.079465.3.579. 2.1259 1941 Unknown [id number] 2.16.840.1.680344.3.579. 2.9 1941 Unknown [id number] 2.16.840.1.842544.3.579. 2.125 1941 Unknown [id number] 2.16.840.1.809097.3.579. 2.1258 1941 Unknown [id number] 2.16.840.1.780888.3.579. 2.125 1941 Unknown [id number] 2.16.840.1.014296.3.579. 2.1258 1941 Unknown [id number] 2.16.840.1.697353.3.579. 2.1258 1941 Unknown [id number] 2.16.840.1.209815.3.579. 2.1258 1941 Unknown [id number] 2.16.840.1.995165.3.579. 2.1258 1941 Unknown [id number] 2.16.840.1.965850.3.579. 2.1258 1941 Unknown [id number] 2.16.840.1.050871.3.579. 2.1258 1941 Unknown [id number] 2.16.840.1.111800.3.579. 2.1258 1941 Unknown [id number] 2.16.840.1.408846.3.579. 2.125 1941 Unknown [id number] 2.16.840.1.329924.3.579. 2.1258 1941 Unknown [id number] 2.16.840.1.391415.3.579. 2.1259 Unknown [id number] 2.16.840.1.095285.3.579. 2.531 Unknown [id number] 2.16.840.1.434847.3.579. 2.531 Unknown [id number] 2.16.840.1.642103.3.579. 2.531 Unknown [id number] 2.16.840.1.613039.3.579. 2.531 Unknown [id number] 2.16.840.1.108322.3.579. 2.531 Unknown [id number] 2.16.840.1.615098.3.579. 2.531 Unknown [id number] 2.16.840.1.101765.3.579. 2.531 Unknown [id number] 2.16.840.1.816322.3.579. 2.531 Social History Date Type Detail Facility Start: 03-04-2022 End: 03-20-2025 Tobacco smoking status Ex-smoker (finding) [facility] [employer] Other Tobacco smoking status Never [facility] [place] Start: 04-09-2024 Sex Assigned At Female N [facility] [employer] Other Start: 03-24-2022 End: 08-10-2024 Tobacco smoking status NHIS Never smoked tobacco (finding) [facility] Start: 1940 Sex Assigned At Female F [facility] Start: 12-07-2024 End: 05-06-2025 Sex Female (finding) [facility] History of tobacco use Current smoker [facility] History of tobacco use Cigarette Smoker [facility] Start: 10-31-2023 Tobacco use and exposure Smokeless tobacco non-user [facility] Start: 04-09-2024 Alcoholic beverage intake Ex-drinker (finding) [facility] Start: 04-09-2024 History of Social function [facility] Start: 1940 Sex assigned at Not on file [facility] Medical Equipment Procedure Code Equipment Code Equipment Origin al Text Equipment Identifier Dates Capsule endoscopy, for patency of lumen evaluation Video capsule endoscopy system [id number] [facility] Start: 05-05-2022 Goals Date Patient Goal Desired Activity /State Clinical Notes 11-07-2021 to 05-09-2025 Jacqui Harper, PT - 05/09/2025 10:30 AM Marion Harper, PT - 05/03/2025 9:00 AM Marion Harper, PT - 04/15/2025 9:30 AM Marion Harper, PT - 04/11/2025 9:00 AM EDT Note Date & Type Note Facility 05-09-2025 History of Presen t illness Narrative Images from the original note were not included. Physical Therapy Treatment Visit / DISCHARGE Patient Name: Sandra Tavarez Today's Date: 05/09/2025 Encounter Diagnoses Name Primary? Low back pain, unspecified back pain laterality, unspecified chronicity, unspecified whether sciatica present Yes Visit number: 23 Timed Code Treatment: 39 minutes Total Treatment Time: 59 minutes Time In: 10:30 AM Time Out: 11:29 AM History: Pt presents with history of [...] then, pain has been worse in low back and bilateral buttock. Pain is slightly worse on left vs right. Precautions: Falls, universal Subjective: Pt states she feels as though she has improved with therapy. Will have epidural once cut on right lower leg has healed. Today is last day PT. Pain: 10/10 - standing Objective: PT Evaluation (01/14/2025) LUMBAR SPINE AROM: [...] and buttock bilateral lumbar regions. Therapeutic Exercise: (29 minutes) Exercises per grid with sitting rest breaks as needed. Scifit x10 mins unsupervised Therapeutic Activity: (10 minutes) Exercises to improve dynamic activities, functional tasks, functional mobility to return to prior activity level as needed. Neuromuscular re-education: Balance Training, Muscle Facilitation, Dynamic Stability, Core Stabilization, and Blood Flow Restriction Training (BFRT) as needed. Modalities: (10 minutes) HP to low back and buttock in sitting following treatment Assessment: Pt has completed 23 PT sessions for low back pain. Pt with improved strength of bilateral LE's; however, standing tolerance remains limited due to bilateral radicular pain. Pain increased at end range of trunk extension. Strength bilateral hips 4- to 4/5 with MMT. Core strength is fair. LEFS score: 42/80. We will now discharge due to plateau in progress. Outcome Measure: Lower Extremity Functional Scale (LEFS): 24/80 Rehab Diagnosis: low back pain, bilateral LE pain and weakness, difficulty walking Short Term Goal: To be met in 2 weeks Goal 1: Pt to be instructed in home exercise program. - met Agricultural Appraiser Goals: To be met in 10 weeks Goal 1: Pt to report independence and compliance with home program. - met Goal 2: Pt to have full trunk ROM without complaints of increase pain at end ranges to assist with functional tasks. - not met Goal 3: Pt to report pain no greater than 4/10 with function tasks, ADL's, and work related activities. - not met Goal 4: Pt to score no less than 40/80 on LEFS indicating improved QOL. - met Goal 5: Pt to achieve 4- to 4/5 strength left hip to assist with functional mobility and ADL's. - met Discharge PT documented in this encounter [facility] 05-03-2025 History of Presen t illness Narrative Images from the original note were not included. Physical Therapy Treatment Visit Patient Name: Sandra Tavarez Today's Date: 05/03/2025 Encounter Diagnoses Name Primary? Low back pain, unspecified back pain laterality, unspecified chronicity, unspecified whether sciatica present Yes Visit number: 21 Timed Code Treatment: 55 minutes Total Treatment Time: 75 minutes Time In: 9:00 AM Time Out: 10:16 AM History: Pt presents with history of [...] then, pain has been worse in low back and bilateral buttock. Pain is slightly worse on left vs right. Precautions: Falls, universal Subjective: Pt states she is having a bit more pain in the back of her legs today, not sure why. States will see pain management again in May. Pain: 10/10 - standing Objective: PT Evaluation (01/14/2025) LUMBAR SPINE AROM: [...] and buttock bilateral lumbar regions. Therapeutic Exercise: (40 minutes supervised, 50 minutes total) Exercises per grid with sitting rest breaks as needed. Scifit x10 mins unsupervised Therapeutic Activity: (15 minutes) Exercises to improve dynamic activities, functional tasks, functional mobility to return to prior activity level as needed. Neuromuscular re-education: Balance Training, Muscle Facilitation, Dynamic Stability, Core Stabilization, and Blood Flow Restriction Training (BFRT) as needed. Modalities: (10 minutes) HP to low back and buttock in sitting following treatment Assessment: Pt has completed 21 PT sessions for low back pain. Pt performed exercises per grid. Increased ankle weight with sitting exercises this date. Requires sitting rest breaks due to fatigue and pain in legs. Will continue to progress as tolerates. Outcome Measure: Lower Extremity Functional Scale (LEFS): 24/80 Rehab Diagnosis: low back pain, bilateral LE pain and weakness, difficulty walking Short Term Goal: To be met in 2 weeks Goal 1: Pt to be instructed in home exercise program. - met Mcc Goals: To be met in 10 weeks [...] sign below. Date: documented in this encounter [facility] 04-15-2025 History of Presen t illness Narrative Images from the original note were not [...] then, pain has been worse in low back and bilateral buttock. Pain is slightly worse on left vs right. Precautions: Falls, universal Subjective: States she did OK following last session, pain was no worse. Will see again this afternoon. Pain: 05/07 Objective: PT Evaluation (01/14/2025) LUMBAR [...] Outcome Measure: Lower Extremity Functional Scale (LEFS): Rehab Diagnosis: low back pain, bilateral LE pain and weakness, difficulty walking Short Term Goal: To be met in 2 weeks Goal 1: Pt to be instructed in home exercise program. - met Mcc Goals: To be met in 10 weeks [...] sign below. Date: documented in this encounter [facility] 04-11-2025 History of Presen t illness Narrative Images from the original note were not [...] then, pain has been worse in low back and bilateral buttock. Pain is slightly worse on left vs right. Precautions: Falls, universal Subjective: States Tues night she was having horrible pain down left LE and mainly in her calf. States she will see Pain Management again on Tuesday. Pain: 6/10 Objective: PT Evaluation (01/14/2025) LUMBAR [...] instructed in home exercise program. - met Mcc Goals: To be met in 10 weeks [...] sign below. Date: documented in this encounter [facility] 04-01-2025 History of Presen t illness Narrative Images from the original note were not included. Physical Therapy Treatment Visit Patient Name: Sandra Tavarez Today's Date: 04/01/2025 Encounter Diagnoses Name Primary? Low back pain, unspecified back pain laterality, unspecified chronicity, unspecified whether sciatica present Yes Visit number: 13 Timed Code Treatment: 41 minutes Total Treatment Time: 51 minutes Time In: 10:00 AM Time Out: 10:55 AM History: Pt presents with history of [...] then, pain has been worse in low back and bilateral buttock. Pain is slightly worse on left vs right. Precautions: Falls, universal Subjective: Pt returns after having RFA to lower lumbar region. Pt states back has been doing really well. States she does continue with pain in bilateral buttock and back of both legs. Pt has another follow up with Pain Management and believes epidural will be discussed. Pain: 05/07 Objective: PT Evaluation (01/14/2025) LUMBAR [...] and buttock bilateral lumbar regions. Therapeutic Exercise: (41 minutes supervised ) Exercises and home program [...] sitting following treatment Assessment: Pt has completed 13 PT sessions for low back pain. Pt unable to obtain neutral trunk ROM due to increase bilateral LE pain near trunk extension. Bilateral hip strength is 4-/5. Core strength is fair. Pt with limited standing tolerance due to increasing bilateral buttock and LE pain. LEFS score is currently 34/80. Will continue PT in order to progress LE and core strength. Outcome Measure: Lower Extremity Functional Scale (LEFS): 24/80 Rehab Diagnosis: low back pain, bilateral LE pain and weakness, difficulty walking Short Term Goal: To be met in 2 weeks Goal 1: Pt to be instructed in home exercise program. - met Mcc Goals: To be met in 10 weeks [...] sign below. Date: documented in this encounter [facility] 03-21-2025 History of Presen t illness Narrative Images from the original note were not included. Physical Therapy Treatment Visit Patient Name: Sandra Tavarez Today's Date: 03/21/2025 Encounter Diagnoses Name Primary? Low back pain, unspecified back pain laterality, unspecified chronicity, unspecified whether sciatica present Yes Visit number: 12 Timed Code Treatment: 39 minutes Total Treatment Time: 49 minutes Time In: 8:40 AM Time Out: 9:36 AM History: Pt presents with history of [...] then, pain has been worse in low back and bilateral buttock. Pain is slightly worse on left vs right. Precautions: Falls, universal Subjective: Pt states her back is still doing better but still can only stand for so long. States she was seen again by Pain Management and they want to do RFA next . Pain: 05/07 Objective: PT Evaluation (01/14/2025) LUMBAR [...] and buttock bilateral lumbar regions. Therapeutic Exercise: (39 minutes supervised ) Exercises and home program reviewed with good pt understanding. Therapeutic Activity: Exercises to improve dynamic activities, functional tasks, functional mobility to return to prior activity level as needed. Neuromuscular re-education: Balance Training, Muscle Facilitation, Dynamic Stability, Core Stabilization, and Blood Flow Restriction Training (BFRT) as needed. Modalities: (10 minutes) HP to low back and buttock in sitting following treatment Assessment: Pt has completed 12 PT sessions for low back pain. Pt continues to require sitting rest breaks during standing activities. Pt continues to report increase pain in left buttock and HS with prolong standing. Progressed exercises with min complaints of increase pain overall. Outcome Measure: Lower Extremity Functional Scale (LEFS): 24/80 Rehab Diagnosis: low back pain, bilateral LE pain and weakness, difficulty walking Short Term Goal: To be met in 2 weeks Goal 1: Pt to be instructed in home exercise program. - met Agricultural Appraiser Goals: To be met in 10 weeks [...] benefit from skilled PT for 2x/week from 01/14/2025 to 03/25/2025 to address the above impairments. I hereby deem this POC medically necessary. Please sign below. Date: documented in this encounter [facility] 03-20-2025 Evaluation note Diagnosis Onset Date Resolution Lumbosacral spondylosis acute A pril 2024 1:27pm Post laminectomy syndrome acute March 20, 2025 1:27pm Sacroiliitis acute March 20, 2025 1:27pm Chronic pain deleted March 20, 2025 1:27pm Encounter for monitoring Coumadin therapy deleted March 20 1:27pm Anemia acute April 09, 2025 10:24am Generalized seizure disorder acute April 09, 2025 10:24am Hypercholesteremia acute April 092024 10:24am Hypertension acute April 09 10:24am Mammogram declined acute April 092024 10:24am KERMIT (obstructive sleep apnea) acute April 09, 2025 10:24am Thrombophilia acute April 09, 025 10:24am Type 2 diabetes mellitus with hyperglycemia acute April 09 10:24am Medicare annual wellness visit, subsequent noneactive April 09, 2025 10:24am Lumbosacral spondylosis acute M ay 2024 1:48pm Post laminectomy syndrome acute April 15, 2025 1:48pm Sacroiliitis acute April 15 1:48pm Chronic pain deleted April 15 1:48pm Lumbosacral spondylosis acute J 2024 11:46am Other chronic pain acute May 062024 11:46am Sacroiliitis acute May 06 11:46am Chronic venous insufficiency acute May 06, 2025 1:20pm Noninfected skin tear of right lower extremity acute May 06, 2025 1:20pm Chronic venous insufficiency acute May 16, 2025 11:39am Noninfected skin tear of right lower extremity acute May 16, 2025 11:39am Cellulitis acute June 14 11:24am Skin tear acute June 14 11:24am [facility] Work Phone: [phone]) 507-747504-23-2025 Evaluation note* Diagnosis Onset Date Resolution Status Admit Date Lumbosacral spondylosis acute A pril 2024 1:27pm Post laminectomy syndrome acute March 20, 2025 1:27pm Sacroiliitis acute March 20, 2025 1:27pm Chronic pain deleted March 20, 2025 1:27pm Encounter for monitoring Cou madin therapy deleted March 20, 2025 1:27pm Anemia acute April 09, 2025 10:24am Generalized seizure disorder acute April 09, 2025 10:24am Hypercholesteremia acute April 092024 10:24am Hypertension acute April 09 10:24am Mammogram declined acute April 092024 10:24am KERMIT (obstructive sleep apnea) acute April 09, 2025 10:24am Thrombophilia acute April 09, 2 025 10:24am Type 2 diabetes mellitus wit h hyperglycemia acute April 09, 2025 10:24am Medicare annual wellness vis it, subsequent noneactive April 09, 2025 10:24am Lumbosacral spondylosis acute M 2024 1:48pm Post laminectomy syndrome acute April 15, 2025 1:48pm Sacroiliitis acute April 15 1:48pm Chronic pain deleted April 15 1:48pm Lumbosacral spondylosis acute J 2024 11:46am Other chronic pain acute May 062024 11:46am Sacroiliitis acute May 06 11:46am Chronic venous insufficiency acute May 06, 2025 1:20pm Noninfected skin tear of rig ht lower extremity acute May 06, 2025 1:20pm Chronic venous insufficiency acute May 16, 2025 11:39am Noninfected skin tear of rig ht lower extremity acute May 16, 2025 11:39am Cellulitis acute June 14 11:24am Skin tear acute June 14 11:24am Cellulitis acute June 18 1:46pm Chronic venous insufficiency acute June 18, 2025 1:46pm Skin tear acute June 18 1:46pm [facility] Work Phone: 1(250) 371-915804-17-2025 History of Present illness Narrative* Jacqui Harper, PT - 03/14/2025 1:30 PM EDT Physical Therapy Treatment Visit Patient Name: Sandra Tavarez Today's Date: 03/14/2025 Encounter Diagnoses Name Primary? Low back pain, unspecified back pain laterality, unspecified chronicity, unspecified whether sciatica present Yes Visit number: 11 Timed Code Treatment: 39 minutes Total Treatment Time: 49 minutes Time In: 1:26 PM Time Out: 2:20 PM History: Pt presents with history of [...] left vs right. Precautions: Falls, universal Subjective: Pt states she has been feeling better since injections on . States she is still having pain near glute fold bilateral but back is doing better and pt is able to ambulate more upright.Will see Pain Management again next week for follow up. Pain: 07/07 Objective: PT Evaluation (01/14/2025) LUMBAR SPINE AROM: [...] Special Test: negative clonus Treatment: Manual Therapy: (15 minutes) STM with massage ball in prone to left low back and buttock bilateral lumbar regions. Therapeutic Exercise: (24 minutes supervised ) Exercises and home program reviewed with good pt understanding. Therapeutic Activity: Exercises to improve dynamic activities, functional tasks, functional mobility to return to prior activity level as needed. Neuromuscular re-education: Balance Training, Muscle Facilitation, Dynamic Stability, Core Stabilization, and Blood Flow Restriction Training (BFRT) as needed. Modalities: (10 minutes) HP to low back and buttock in prone following treatment Assessment: Pt has completed 11 PT sessions for low back pain. Pt reports decrease low back pain following Pain Management injections. Progressed to standing exercises with multiple sitting breaks due to increasing low back pain. Min tenderness bilateral low lumbar region; moderate tenderness bilateral piriformis. Outcome Measure: Lower Extremity Functional Scale (LEFS): 24/80 Rehab Diagnosis: low back pain, bilateral LE pain and weakness, difficulty walking Short Term Goal: To be met in 2 weeks Goal 1: Pt to be instructed in home exercise program. - met Agricultural Appraiser Goals: To be met in 10 weeks [...] benefit from skilled PT for 2x/week from 01/14/2025 to 03/25/2025 to address the above impairments. I hereby deem this POC medically necessary. Please sign below. Date: documented in this encounterHedrick Medical [id number] History of Present illness Narrative* Jacqui Harper, PT - 02/28/2025 12:30 PM EDT Physical Therapy Treatment Visit / Progress Note Patient Name: Sandra Tavarez Today's Date: 02/28/2025 Encounter Diagnoses Name Primary? Low back pain, unspecified back pain laterality, unspecified chronicity, unspecified whether sciatica present Yes Visit number: 10 Timed Code Treatment: 30 minutes Total Treatment Time: 45 minutes Time In: 12:30 PM Time Out: 1:22 PM History: Pt presents with history of [...] left vs right. Precautions: Falls, universal Subjective: Left low back was a little better after last session but continues to give her problems. States was seen by Pain Management and will have procedure done on 03/12/25. Pain: 8/10 Objective: PT Evaluation (01/14/2025) LUMBAR SPINE AROM: [...] Special Test: negative clonus Treatment: Manual Therapy: (16 minutes) STM with massage ball in prone to left low back and buttock. Therapeutic Exercise: (14 minutes supervised ) Exercises and home program reviewed with good pt understanding. Therapeutic Activity: Exercises to improve dynamic activities, functional tasks, functional mobility to return to prior activity level as needed. Neuromuscular re-education: Balance Training, Muscle Facilitation, Dynamic Stability, Core Stabilization, and Blood Flow Restriction Training (BFRT) as needed. Modalities: (15 minutes) Pre-session pt prone IFC/MHP to low back/left hip to reduce muscle oreness Assessment: Pt has completed 10 PT sessions for low back pain. Pain continues to rate about 8/10 inleft low back. Moderate to severe tenderness noted with palpation. Strength left hip 4-/5. Core strength is fair/poor. LEFS score is currently 35/80. Will re-assess following pain management procedure. Outcome Measure: Lower Extremity Functional Scale (LEFS): 2480 Rehab Diagnosis: low back pain, bilateral LE pain and weakness, difficulty walking Short Term Goal: To be met in 2 weeks Goal 1: Pt to be instructed in home exercise program. - met Agricultural Appraiser Goals: To be met in 10 weeks [...] benefit from skilled PT for 2x/week from 01/14/2025 to 03/25/2025 to address the above impairments. I hereby deem this POC medically necessary. Please sign below. Date: documented in this encounterHedrick Medical [id number] NoteGeneral Surgery Office/Clinic Note Chief Complaint consultation for colonoscopy HPI [...] Coumadin, htn, pulmonary htn, hyperlipidemia, KERMIT, morbid obesity,seizure d/o, lumbar stenosis, presents for surveillance colonoscopy, patient s/p EGD/colonoscopy 02/2022 due to iron deficiency anemia; 3 mm sessile polyp noted behind ileocecal valve; due to locationand redundancy of colon, unable to remove; patient [...] loss, no ear infection(s),no nose bleeds. Cardiovascular: normal blood pressure, no [...] require lift technique; patient requests referral to [facility]; call with problems/questions. Ordered: [facility] Internal Ambulatory Referral Follow-up No qualifying data [...] bilaterally (04/07/2015), Colonoscopy (2009), Colonoscopy (2004), Craniotomy (1965), Arthroplasty of knee, Cholecystectomy, Chondroplasty, Cystoscopy, EGD, [...] Tobacco Use:. Never Smokeless Tobacco Use:. Cigarettes, 1per day. Started age 18.0 Years. Stopped age 51 Years., 02/26/2025 Family History Cardiac arrest: Father. Diabetes mellitus type 2: Sister. Hypertension: Father, Siste (more content not included)...[facility] HospitalComment on above:Result Comment: Electronically Signed By: GEORGE JENNINGS, Taye Ellington\Date and Time Signed: 02/26/25 13:52 [id number] Evaluation note * Diagnosis Onset Date Resolution Status Admit Date Lumbosacral spondylosis acute A pril 2024 10:33am Post laminectomy syndrome acute February 26, 2025 10:33am Sacroiliitis acute February 26 10:33am Chronic pain deleted February 26 10:33am Encounter for monitoring Cou madin therapy deleted February 26, 2025 10:33am Lumbosacral spondylosis acute A pril 2024 1:27pm Post laminectomy syndrome acute March 20, 2025 1:27pm Sacroiliitis acute March 20, 2025 1:27pm Chronic pain deleted March 20, 2025 1:27pm Encounter for monitoring Cou madin therapy deleted March 20, 2025 1:27pm Anemia acute April 09, 2025 10:24am Generalized seizure disorder acute April 09, 2025 10:24am Hypercholesteremia acute April 092024 10:24am Hypertension acute April 09 10:24am Mammogram declined acute April 092024 10:24am KERMIT (obstructive sleep apnea) acute April 09, 2025 10:24am Thrombophilia acute April 09 10:24am Type 2 diabetes mellitus wit h hyperglycemia acute April 09, 2025 10:24am Medicare annual wellness vis it, subsequent noneactive April 09, 2025 10:24am Lumbosacral spondylosis acute M ay 2024 1:48pm Post laminectomy syndrome acute April 15, 2025 1:48pm Sacroiliitis acute April 15 1:48pm Chronic pain deleted April 15 1:48pm Lumbosacral spondylosis acute J une 2024 11:46am Other chronic pain acute May 062024 11:46am Sacroiliitis acute May 06 11:46am [facility] Work Phone: 1(956) 792-494103-03-2025 Telephone encounter Note* Telephone Encounter - Jenna Servin - 01/28/2025 8:25 AM EST She called noting up all last night not feeling well and no better this morning; she cx her 12:00 PT. I reminded and she said she will try to make her 3/6 PT; if unable she will contact jennifer. [facility] [id number] Miscellaneous Notes* Telephone Encounter - Jenna Servin - 01/28/2025 8:25 AM EST She called noting up all last night not feeling well and no better this morning; she cx her 12:00 PT. I reminded and she said she will try to make her 3/6 PT; if unable she will contact jennifer. documented in this encounterHedrick Medical [id number] History of Present illness Narrative* Jacqui Harper, PT - 01/23/2025 1:00 PM EST Images from the original note were not included. Physical Therapy Treatment Visit Patient Name: Sandra Tavarez Today's Date: 01/23/2025 Encounter Diagnoses Name Primary? Low back pain, unspecified back pain laterality, unspecified chronicity, unspecified whether sciatica present Yes Visit number: 4 Timed Code Treatment Minutes: 42 minutes Total Treatment Time: 52 minutes Time In: 1300 Time Out: 1358 History: Pt presents with history of low [...] left vs right. Precautions: Falls, universal Subjective: Left low back is hurting more today. [place] good after last session but pain returned. Ptis having injections in bilateral hips on 02/07/25. Pain: 10/10 Objective: PT Evaluation (01/14/2025) LUMBAR SPINE AROM: [...] negative bilateral Special Test: negative clonus Treatment: Education: HEP education with demonstration, Educated on Eval Findings and POC Manual Therapy: (11 minutes) Passive ROM, Joint mobilization, Soft Tissue Mobilization, Myofascial Release, Muscle Energy Technique, Neural Mobilization, Myofascial Cupping, Dry Needling, IASTM, and Scar mobilization as needed. Manual lumbar distraction supine with indonesian ball. Therapeutic Exercise: (31 minutes) Strength, Endurance, Flexibility, ROM, HEP, Neural Mobilization,Power, and Core Stability as needed. Pt performed exercises per grid. Added supine core stabilization exercises this date. Therapeutic Activity: Exercises to improve dynamic activities, functional tasks, functional mobility to return to prior activity level as needed. Neuromuscular re-education: Balance Training, Muscle Facilitation, Dynamic Stability, Core Stabilization, and Blood Flow Restriction Training (BFRT) as needed. Modalities: Heat, Ice, Electrical Stimulation, Ultrasound, Cervical Mechanical Traction, Lumbar Mechanical Traction, Iontophoresis, and Fluidotherapy as needed. HP to low back/left hip in SL X 10 minutes Assessment: Pt has completed 4 PT sessions for low back pain. Able to added core stabilization exercises this date; however, progressions were due to right LE cramping during ex. Will continue to progress as pt tolerates. Outcome Measure: Lower Extremity Functional Scale (LEFS): 24/80 Rehab Diagnosis: low back pain, bilateral LE pain and weakness, difficulty walking Short Term Goal: To be met in 2 weeks Goal 1: Pt to be instructed in home exercise program. Mcc Goals: To be met in 10 weeks Goal 1: Pt to report independence and compliance with home program. Goal 2: Pt to have full trunk ROM without complaints of increase pain at end ranges to assist with functional tasks. Goal 3: Pt to report pain no greater than 4/10 with function tasks, ADL's, and work related activities. Goal 4: Pt to score no less than 40/80 on LEFS indicating improved QOL. Goal 5: Pt to achieve 4- to 4/5 strength left hip to assist with functional mobility and ADL's. Pt will benefit from skilled PT for 2x/week from 01/14/2025 to 03/25/2025 to address the above impairments. I hereby deem this POC medically necessary. Please sign below. Date: documented in this encounterHedrick Medical [id number] Evaluation note* Diagnosis Onset Date Resolution Status Admit Date Lumbosacral spondylosis acute F ebruary 2024 12:55pm Post laminectomy syndrome acute January 16, 2025 12:55pm Sacroiliitis acute December 12:55pm Chronic pain deleted December 12:55pm Encounter for monitoring Coumadin therapy deleted January 16, 2025 12:55pm Lumbosacral spondylosis acute A 2024 10:33am Post laminectomy syndrome acute February 26, 2025 10:33am Sacroiliitis acute February 26 10:33am Chronic pain deleted February 26 10:33am Encounter for monitoring Coumadin therapy deleted February 26, 2025 10:33am Lumbosacral spondylosis acute A pril 2024 1:27pm Post laminectomy syndrome acute March 20, 2025 1:27pm Sacroiliitis acute March 20, 2025 1:27pm Chronic pain deleted March 20, 2025 1:27pm Encounter for monitoring Coumadin therapy deleted March 20 1:27pm Anemia acute April 09, 2025 10:24am Generalized seizure disorder acute April 09, 2025 10:24am Hypercholesteremia acute April 092024 10:24am Hypertension acute April 09 10:24am Mammogram declined acute April 092024 10:24am KERMIT (obstructive sleep apnea) acute April 09, 2025 10:24am Thrombophilia acute April 09, 025 10:24am Type 2 diabetes mellitus wit h hyperglycemia acute April 09, 2025 10:24am Medicare annual wellness vis it, subsequent noneactive April 09, 2025 10:24am [facility] Work Phone: 1(731) 623-411702-17-2025 History of Present illness Narrative* Jacqui Harper, PT - 01/14/2025 11:00 AM EST Images from the original note were not included. Physical Therapy Evaluation Visit Patient Name: Sandra Tavarez Today's Date: 01/14/2025 Encounter Diagnoses Name Primary? Low back pain, unspecified back pain laterality, unspecified chronicity, unspecified whether sciatica present Yes Visit number: 1 Timed Code Treatment Minutes: 49 minutes Total Treatment Time: 59 minutes Time In: 1100 Time Out: 1159 History: Pt presents with history of low [...] left vs right. Precautions: Falls, universal Subjective: Low back pain with activity or sitting for long periods, bilateral buttock (left >right) Pain: 10/10 Objective: PT Evaluation (01/14/2025) LUMBAR SPINE AROM: [...] negative bilateral Special Test: negative clonus Treatment: Education: HEP education with demonstration, Educated on Eval Findings and POC Manual Therapy: Passive ROM, Joint mobilization, Soft Tissue Mobilization, Myofascial Release, Muscle Energy Technique, Neural Mobilization, Myofascial Cupping, Dry Needling, IASTM, and Scar mobilization as needed. Therapeutic Exercise: (24 minutes) Strength, Endurance, Flexibility, ROM, HEP, Neural Mobilization,Power, and Core Stability as needed. Pt performed and instructed in home program this date; writteninstructions and pictures issued with good pt understanding. Therapeutic Activity: Exercises to improve dynamic activities, functional tasks, functional mobility to return to prior activity level as needed. Neuromuscular re-education: Balance Training, Muscle Facilitation, Dynamic Stability, Core Stabilization, and Blood Flow Restriction Training (BFRT) as needed. Modalities: Heat, Ice, Electrical Stimulation, Ultrasound, Cervical Mechanical Traction, Lumbar Mechanical Traction, Iontophoresis, and Fluidotherapy as needed. HP to low back in sitting X 10 minutes Assessment: Pt is 84 y/o female with complaints of low back and bilateral buttock pain. Relief noted with flexion based activities. Lumbar extension limited to neutral due to increase bilateral buttock and low back pain. Left hip weakness compared to right. Core strength is fair/poor. Pt instructedin home program and will benefit from further PT. Outcome Measure: Lower Extremity Functional Scale (LEFS): 24/80 Rehab Diagnosis: low back pain, bilateral LE pain and weakness, difficulty walking Short Term Goal: To be met in 2 weeks Goal 1: Pt to be instructed in home exercise program. Mcc Goals: To be met in 10 weeks Goal 1: Pt to report independence and compliance with home program. Goal 2: Pt to have full trunk ROM without complaints of increase pain at end ranges to assist with functional tasks. Goal 3: Pt to report pain no greater than 4/10 with function tasks, ADL's, and work related activities. Goal 4: Pt to score no less than 40/80 on LEFS indicating improved QOL. Goal 5: Pt to achieve 4- to 4/5 strength left hip to assist with functional mobility and ADL's. Pt will benefit from skilled PT for 2x/week from 01/14/2025 to 03/25/2025 to address the above impairments. I hereby deem this POC medically necessary. Please sign below. Date: documented in this [facility]02-07-2025 Evaluation note* Diagnosis Onset Date Resolution Status Admit Date Cellulitis acute January 04, 2025 11:37am Lumbosacral spondylosis acute F ebary 2024 11:37am Superficial bruising of abdominal wall acute January 04 11:37am Adverse reaction to anticoagulant noneactive January 04 11:37am Chronic pain acute December 12:55pm Encounter for monitoring Coumadin therapy acute January 16, 2025 12:55pm Lumbosacral spondylosis acute F ebruary 2024 12:55pm Post laminectomy syndrome acute January 16, 2025 12:55pm Sacroiliitis acute December 12:55pm Chronic pain acute February 26 025 10:33am Encounter for monitoring Coumadin therapy acute February 26, 2025 10:33am Lumbosacral spondylosis acute A pri2024 10:33am Post laminectomy syndrome acute February 26, 2025 10:33am Sacroiliitis acute February 26 025 10:33am Chronic pain acute March 20, 2025 1:27pm Encounter for monitoring Coumadin therapy acute March 20 1:27pm Lumbosacral spondylosis acute A pril 2024 1:27pm Post laminectomy syndrome acute March 20, 2025 1:27pm Sacroiliitis acute March 20, 2025 1:27pm [facility] Work Phone: 1(342) 261-610701-29-2025 [place] [address] Pain Management Procedure Note Signed Patient: Sandra Tavarez MR#: [id number] : 1940 Acct:[id number] Age/Sex: 84 / F Adm Date: 5 Loc: Room: Type: [facility] Attending Dr: Michael Dunaway MD Copies to: DO Michael Brower MD~ Pain Procedure PROCEDURE PERFORMED BY: Michael Dunaway PROCEDURE DATE: 12/26/2024 ADDITIONAL COMMENTS: PREPROCEDURE DIAGNOSIS: 1. Post laminectomy syndrome. 2. Chronic Pain. POSTPROCEDURE DIAGNOSIS: 1. Post laminectomy syndrome. 2. Chronic Pain. PROCEDURE: Caudal epidural steroid injection with a Racz catheter and lysis of adhesions under fluoroscopic guidance. COMPLICATIONS: None. ANESTHESIA: Local and moderate sedation with midazolam 2 mg. Sedation start time: 11:21 Sedation end time: 11:31 CLINICAL NOTE: The patient has a history of low back and leg pain. The patient requests the epidural in an attemptto improve the pain. The risks, benefits, and alternatives of the procedure were explained to the patient. The patient wishesto proceed. PROCEDURE NOTE: The patient was brought to the procedure room and placed in the prone position. The skin was prepped and draped with ChloraPrep and sterile drape. 3 mL of 1% lidocaine were injected through a 27-gauge needle for local anesthesia. A 16- gauge Tuohy needle was guided to the caudal epidural space underfluoroscopic guidance. A Racz catheter was guided to the lumbosacral junction under fluoroscopic guidance. Contrast was injected through the catheter under live fluoroscopy to ensure proper catheter placement. After negative aspiration, 10 mL of half percent lidocaine with 60 mg of methylprednisolone were injected through the Racz catheter under pressure and using rocking movement of the catheterfor lysis of adhesions. The needle and the catheter were removed and band-aid was applied. The patient tolerated the procedure well and was transferred to recovery in stable condition. PLAN: The patient was instructed to call the clinic in 1-2 week to inform us of any progress. The patientwas encouraged to call at any time with any questions or concerns. Documented By: Michael Dunaway MD 12/26/24 1119 Signed By: 12/26/24 1206 [facility]01-15-2025 Evaluation note* Diagnosis Onset Date Resolution Status Admit Date Anticoagulant long-term use acute December 12, 2024 1:39pm Chronic venous insufficiency acute December 12, 2024 1:39pm Laceration of leg excluding thigh acute December 12 1:39pm Cellulitis acute January 04, 2025 11:37am Lumbosacral spondylosis acute F ebruary 2024 11:37am Superficial bruising of abdominal wall acute January 04 11:37am Adverse reaction to anticoagulant noneactive January 04 11:37am Chronic pain acute December 12:55pm Encounter for monitoring Coumadin therapy acute January 16, 2025 12:55pm Lumbosacral spondylosis acute F ebruary 2024 12:55pm Post laminectomy syndrome acute January 16, 2025 12:55pm Sacroiliitis acute December 12:55pm Chronic pain acute February 26 025 10:33am Encounter for monitoring Coumadin therapy acute February 26, 2025 10:33am Lumbosacral spondylosis acute A pri2024 10:33am Post laminectomy syndrome acute February 26, 2025 10:33am Sacroiliitis acute February 26 10:33am [facility] Work Phone: 1(103) 391-373901-10-2025 Evaluation note* Diagnosis Onset Date Resolution Status Admit Date Generalized seizure disorder acute December 07, 2024 10:20am Hypercholesteremia acute 2024 10:20am Hypertension acute November 10:20am Iron deficiency anemia acute [facility] 2024 10:20am Lumbar spondylosis acute 2024 10:20am KERMIT (obstructive sleep apnea) acute December 07, 2024 10:20am Thrombophilia acute November 10:20am Type 2 diabetes mellitus wit h hyperglycemia acute December 07 10:20am Chronic pain acute November 1:37pm Encounter for monitoring Cou madin therapy acute December 10 1:37pm Lumbosacral spondylosis acute J anuary 2024 1:37pm Post laminectomy syndrome acute December 10, 2024 1:37pm Sacroiliitis acute November 1:37pm [facility] Work Phone: 1(355) 666-692801-10-2025 Evaluation note* Diagnosis Onset Date Resolution Status Admit Date Generalized seizure disorder acute December 07, 2024 10:20am Hypercholesteremia acute 2024 10:20am Hypertension acute November 10:20am Iron deficiency anemia acute [facility] 2024 10:20am Lumbar spondylosis acute 2024 10:20am KERMIT (obstructive sleep apnea) acute December 07, 2024 10:20am Thrombophilia acute November 10:20am Type 2 diabetes mellitus wit h hyperglycemia acute December 07 10:20am Chronic pain acute November 1:37pm Encounter for monitoring Cou madin therapy acute December 10 1:37pm Lumbosacral spondylosis acute J anuary 2024 1:37pm Post laminectomy syndrome acute December 10, 2024 1:37pm Sacroiliitis acute November 1:37pm Anticoagulant long-term use acute December 12, 2024 1:39pm Chronic venous insufficiency acute December 12, 2024 1:39pm Laceration of leg excluding thigh [facility] December 12, 2024 1:39pm [facility] Work Phone: 1([phone]) 875-611701-10-2025 Evaluation note* Diagnosis Onset Date Resolution Status Admit Date Generalized seizure disorder acute December 07, 2024 10:20am Hypercholesteremia acute 2024 10:20am Hypertension acute November 10:20am Iron deficiency anemia acute nuary 2024 10:20am Lumbar spondylosis acute 2024 10:20am KERMIT (obstructive sleep apnea) acute December 07, 2024 10:20am Thrombophilia acute November 10:20am Type 2 diabetes mellitus wit h hyperglycemia acute December 07 10:20am Chronic pain acute November 1:37pm Encounter for monitoring Coumadin therapy acute December 10, 1:37pm Lumbosacral spondylosis acute J anuary 2024 1:37pm Post laminectomy syndrome acute December 10, 2024 1:37pm Sacroiliitis acute November 1:37pm Anticoagulant long-term use acute December 12, 2024 1:39pm Chronic venous insufficiency acute December 12, 2024 1:39pm Laceration of leg excluding thigh acute December 12 1:39pm Cellulitis acute January 04, 2025 11:37am Lumbosacral spondylosis acute F ebruary 2024 11:37am Superficial bruising of abdominal wall acute January 04 11:37am Adverse reaction to anticoagulant noneactive January 04 11:37am Chronic pain acute December 12:55pm Encounter for monitoring Coumadin therapy acute January 16, 2025 12:55pm Lumbosacral spondylosis acute ary 2024 12:55pm Post laminectomy syndrome acute January 16, 2025 12:55pm Sacroiliitis acute December 12:55pm [facility] Work Phone: 1(333) 261-410801-10-2025 Evaluation note* Diagnosis Onset Date Resolution Status Admit Date Generalized seizure disorder acute December 07, 2024 10:20am Hypercholesteremia acute 2024 10:20am Hypertension acute November 10:20am Iron deficiency anemia acute 2024 10:20am Lumbar spondylosis acute 2024 10:20am KERMIT (obstructive sleep apnea) acute December 07, 2024 10:20am Thrombophilia acute November 10:20am Type 2 diabetes mellitus wit h hyperglycemia acute December 07 10:20am Chronic pain acute November 1:37pm Encounter for monitoring Coumadin therapy acute December 10 1:37pm Lumbosacral spondylosis acute J anuary 2024 1:37pm Post laminectomy syndrome acute December 10, 2024 1:37pm Sacroiliitis acute November 1:37pm Anticoagulant long-term use acute December 12, 2024 1:39pm Chronic venous insufficiency acute December 12, 2024 1:39pm Laceration of leg excluding thigh acute December 12 1:39pm Cellulitis acute January 04, 2025 11:37am Lumbosacral spondylosis acute 2024 11:37am Superficial bruising of abdominal wall acute January 04 11:37am Adverse reaction to anticoagulant noneactive January 04 11:37am Chronic pain acute December 12:55pm Encounter for monitoring Coumadin therapy acute January 16, 2025 12:55pm Lumbosacral spondylosis acute F ebruary 2024 12:55pm Post laminectomy syndrome acute January 16, 2025 12:55pm Sacroiliitis acute December 12:55pm Chronic pain acute February 26 025 10:33am Encounter for monitoring Coumadin therapy acute February 26, 2025 10:33am Lumbosacral spondylosis acute A pril 2024 10:33am Post laminectomy syndrome acute February 26, 2025 10:33am Sacroiliitis acute February 26 025 10:33am [facility] Work Phone: 1(958) 645-845609-13-2024 [facility]* Encounter Date Diagnosis Assessment Notes Treatment Notes Treatment Clinical Notes Nov, Primary hypertension (ICD-10 - I10) [...] eye exam and Foot exam Nov, Hypercoagulable stat e (ICD-10 - D68.59) No thrombotic or bleeding [...] would improve respiratory status Nov, KERMIT (obstructive sle ep apnea) (ICD-10 - G47.33) This patient is aware of the benefits associated with KERMIT: With continued use, the patient reduces the risk for KS, CVA, HTN, cardiac dysrhythmias and sudden cardiac deaths.The patient is also aware of the association between KERMIT and morning headaches, daytime somnolence, fatigue and obesity, which also has been improved with continued use.The patient is compliant with treatment, wearing the equipment every night for greater than 4 hours.The patient is instructed to continue use of the CPAP for KERMIT treatment. Nov, Gastroesophageal ref lux disease with esophagitis without [...] the risk for cerebrovascular and cardiovascular disease. [employer] Other 01-12-2024 Evaluation note* Encounter Date Diagnosis [...] infection (ICD-10 - Z20.822) Order sent to [facility], results negative for COVID infection. [employer] Other 12-14-2023 Evaluation note* Encounter Date Diagnosis Assessment Notes Treatment Notes Treatment Clinical Notes Oct, Acute cough (ICD-10 - R05.1) [employer] Other 10-25-2023 Evaluation note* Encounter Date Diagnosis [...] for additional treatment Discussed compression, pumps etc [employer] Other 10-12-2023 Evaluation note* Encounter Date Diagnosis Assessment Notes Treatment Notes Treatment Clinical Notes Aug, Lumbar spondylosis (ICD-10 - M47.816) [employer] Other 10-02-2023 Evaluation note* Encounter Date Diagnosis Assessment Notes Treatment Notes Treatment Clinical Notes Aug, Pain of right lower extremity (ICD-10 - M79.604) [employer] Other 09-18-2023 Evaluation note* Encounter Date Diagnosis [...] of right lower extremity (ICD-10 - M79.604) [employer] Other 08-22-2023 Evaluation note* Encounter Date Diagnosis Assessment Notes Treatment Notes Treatment Clinical Notes Jun, Dysuria (ICD-10 - R30.0) [employer] Other 08-14-2023 Evaluation note* Encounter Date Diagnosis [...] use, the patient reduces the risk for KS, CVA, HTN, cardiac dysrhythmias and sudden cardiac [...] or drinking prior to bedtime. Weight loss. [employer] Other 06-28-2023 Evaluation note* Encounter Date Diagnosis [...] supplied to the patient after her assessment [employer] Other 05-30-2023 Evaluation note* Encounter Date Diagnosis Assessment Notes Treatment Notes Treatment Clinical Notes March, Cellulitis of right lower extremity (ICD-10 - L03.115) [employer] Other 05-12-2023 Evaluation note* Encounter Date Diagnosis [...] - D68.59) Not able to use NSAIDs [facility] [employer] Other 04-26-2023 Evaluation note* Encounter Date Diagnosis [...] and refer to med management clinic in [facility] Other 04-19-2023 Evaluation note* Encounter Date Diagnosis Assessment Notes Treatment Notes Treatment Clinical Notes Feb, Generalized seizure disorder (ICD-10 - G40.309) [facility] [email or web address] [facility] Other 04-17-2023 NotePROCEDURE: XR CHEST 2 [...] Electronically authenticated by: CELINA JONES Date: 2023-03-14 15:11[facility]04-17-2023 Evaluation note* Encounter Date Diagnosis Assessment Notes Treatment Notes Treatment Clinical Notes Feb, Simple chronic bronchitis (ICD-10 - J41.0) [employer] Other 04-13-2023 Evaluation note* Encounter Date Diagnosis Assessment Notes Treatment Notes Treatment Clinical Notes Feb, Acute bronchitis due to other specified organisms (ICD-10 - J20.8) Instructed to use Robitussin or Mucinex for cough, saline or Flonase NS for congestion, Tylenol for pain and fever. Feb, Seasonal allergic rhinitis due to pollen (ICD-10 - J30.1) [employer] Other 04-05-2023 Evaluation note* Encounter Date Diagnosis [...] use, the patient reduces the risk for KS, CVA, HTN, cardiac dysrhythmias and sudden cardiac deaths.The patient is also aware of the association between KERMIT and morning headaches, daytime somnolence, fatigue and obesity, which also has been improved with continued use.The patient is compliant with treatment, wearing the equipment every night for greater than 4 hours.The patient is instructed to continue use of the CPAP for KREMIT treatment. Feb, Hypercholesteremia (ICD-10 - E78.00) Diet [...] mammogram for breast cancer (ICD-10 - Z12.31) [employer] Other 03-20-2023 Evaluation note* Encounter Date Diagnosis [...] offered to prescribe a low dose of [place], she states she does not want to be on opioid pain medications. She can follow up in 3 months or as needed. Jan, Chronic pain (ICD-10 - G89.29) Follow up as needed [employer] Other 03-02-2023 Evaluation note* Encounter Date Diagnosis [...] (ICD-10 - G89.29) Follow up after procedure. [employer] Other 02-03-2023 Evaluation note* Encounter Date Diagnosis [...] (ICD-10 - G89.29) Follow up after procedure. [employer] Other 01-30-2023 Evaluation note* Encounter Date Diagnosis Assessment Notes Treatment Notes Treatment Clinical Notes Nov, Erysipelas (ICD-10 - A46) Start w antibiotic, take entire course. Call if no improvement for other prescription or dermatology referral. Nov, Systemic viral illness (ICD-10 - B34.9) Chills and nausea has resolved Continue to monitor symptoms [employer] Other 01-05-2023 Evaluation note* Encounter Date Diagnosis [...] - G89.29) Follow up in 4 weeks. [employer] Other 12-06-2022 Evaluation note* Encounter Date Diagnosis [...] for three days prior to each procedure [employer] Other 10-15-2022 Evaluation note* Encounter Date Diagnosis [...] treatment plan. Patient left in stable condition [employer] Other 10-14-2022 Evaluation note* Encounter Date Diagnosis [...] - G89.29) Follow up in 4 weeks. [employer] Other 09-01-2022 Evaluation note* Encounter Date Diagnosis [...] Eliquis for 3 days prior to procedure [employer] Other 08-05-2022 Evaluation note* Encounter Date Diagnosis [...] Eliquis for 3 days prior to procedure [employer] Other 07-27-2022 [facility] Evaluation note* Encounter Date Diagnosis Assessment Notes [...] Eliquis for 3 days prior to procedure [employer] Other 04-14-2022 Evaluation note* Encounter Date Diagnosis [...] medial branch nerve blocks in the future. [employer] Other 03-24-2022 Evaluation note* Encounter Date Diagnosis Assessment Notes [...] reports prior surgery with Dr. Rivers at [facility] 8 years ago. She also reports prior [...] negative findings were considered in medical decision-making. [employer] Other 03-03-2022 Evaluation note* Encounter Date Diagnosis [...] Asymptomatic age-related postmenopausal state (ICD-10 - Z78.0) [employer] Other 2021 Evaluation note* Encounter Date Diagnosis [...] no improvement in 2 to 3 days [facility] [employer] Other Evaluation + Plan note No data available for this section [facility] [place] Evaluation noteNo InformationNortWell[facility] [employer] Other Evaluation noteNo assessment information available [facility] Work Phone: Evaluation note* Diagnosis Onset Date Resolution Status Chronic venous insufficiency acute Hypertension acute Lumbar spondylosis acute Thrombophilia acute [facility] Work Phone: evaluation note* Diagnosis Onset Date Resolution Status Chronic [...] Ischial bursitis acute Lumbosacral spondylosis acut e [facility] Work Phone: Evaluation note* Diagnosis Onset Date Resolution Status Generalized seizure disorder acute Hypercholesteremia acute Hypertension acute Lumbar spondylosis acute KERMIT (obstructive sleep apnea) acute Thrombophilia acute Type 2 diabetes mellitus with hyperglycemia acute Medicare annual wellness visit, subsequent noneactive Anticoagulant long-term use acute Arthritis of sacroiliac joint acute Chronic pain acute Ischial bursitis acute Lumbosacral spondylosis acut e [facility] Work Phone: Evaluation note* Diagnosis Onset Date Resolution Status Generalized seizure disorder acute Hypercholesteremia acute Hypertension acute Lumbar spondylosis acute KERMIT (obstructive sleep apnea) acute Thrombophilia acute Type 2 diabetes mellitus with hyperglycemia acute Medicare annual wellness visit, subsequent noneactive Anticoagulant long-term use acute Arthritis of sacroiliac joint acute Chronic pain acute Ischial bursitis acute Lumbosacral spondylosis acut e Ischial bursitis acute Lumbosacral spondylosis acut e Post laminectomy syndrome ac [place] Work Phone: Evaluation note* Diagnosis Onset Date Resolution Status Ischial bursitis acute Lumbosacral spondylosis acut e Post laminectomy syndrome ac [place] Anticoagulant long-term use acute Chronic pain acute Lumbosacral spondylosis acut e Post laminectomy syndrome ac [place] Work Phone: Evaluation note* Diagnosis Onset Date Resolution Status Ischial bursitis acute Lumbosacral spondylosis acut e Post laminectomy syndrome ac [place] Anticoagulant long-term use acute Chronic pain acute Lumbosacral spondylosis acut e Post laminectomy syndrome ac [place] Generalized seizure disorder acute Hypercholesteremia acute Hypertension acute Lumbar spondylosis acute KERMIT (obstructive sleep apnea) acute Thrombophilia acute Type 2 diabetes mellitus with hyperglycemia acute [facility] Work Phone: Evaluation note* Diagnosis Onset Date Resolution Status Ischial bursitis acute Lumbosacral spondylosis acut e Post laminectomy syndrome ac [place] Anticoagulant long-term use acute Chronic pain acute Lumbosacral spondylosis acut e Post laminectomy syndrome ac [place] Generalized seizure disorder acute Hypercholesteremia acute Hypertension acute Lumbar spondylosis acute KERMIT (obstructive sleep apnea) acute Thrombophilia acute Type 2 diabetes mellitus with hyperglycemia acute Anticoagulant long-term use acute Chronic pain acute Lumbosacral spondylosis acut e Post laminectomy syndrome ac [place] Sacroiliitis acute [facility] Work Phone: Evaluation note* Diagnosis Onset Date Resolution Status Anticoagulant long-term use acute Chronic pain acute Lumbosacral spondylosis acut e Post laminectomy syndrome ac [place] Generalized seizure disorder acute Hypercholesteremia acute Hypertension acute Lumbar spondylosis acute KERMIT (obstructive sleep apnea) acute Thrombophilia acute Type 2 diabetes mellitus with hyperglycemia acute Anticoagulant long-term use acute Chronic pain acute Lumbosacral spondylosis acut e Post laminectomy syndrome ac [place] Sacroiliitis acute [facility] Work Phone: Evaluation note* Diagnosis Onset Date Resolution Status Anticoagulant long-term use acute Chronic pain acute Lumbosacral spondylosis acut e Post laminectomy syndrome ac [place] Generalized seizure disorder acute Hypercholesteremia acute Hypertension acute Lumbar spondylosis acute KERMIT (obstructive sleep apnea) acute Thrombophilia acute Type 2 diabetes mellitus with hyperglycemia acute Anticoagulant long-term use acute Chronic pain acute Lumbosacral spondylosis acut e Post laminectomy syndrome ac [place] Sacroiliitis acute Chronic pain acute Lumbosacral spondylosis acut e Post laminectomy syndrome ac [place] Sacroiliitis acute [facility] Work Phone: Evaluation note* Diagnosis Onset Date Resolution Status Admit Date Generalized seizure disorder acute December 07, 2024 10:20am Hypercholesteremia acute 2024 10:20am Hypertension acute November 10:20am Iron deficiency anemia acute nuary 2024 10:20am Lumbar spondylosis acute 2024 10:20am KERMIT (obstructive sleep apnea) acute December 07, 2024 10:20am Thrombophilia acute November 10:20am Type 2 diabetes mellitus wit h hyperglycemia acute December 07 10:20am [facility] Work Phone: Evaluation note* Diagnosis Low back pain, unspecified back pain laterality, unspecified chronicity, unspecified whether sciatica present- Primary [facility] Diagnosis Low back pain, unspecified back pain laterality, unspecified chronicity, unspecified whether sciatica present- Primary documented in this encounter [facility] Diagnosis Low back pain, unspecified back pain laterality, unspecified chronicity, unspecified whether sciatica present- Primary [facility] in this encounter [facility]* Diagnosis Low back pain, unspecified back pain laterality, unspecified chronicity, unspecified whether sciatica present- Primary documented in this encounter [facility]* Diagnosis Low back pain, unspecified back pain laterality, unspecified chronicity, unspecified whether sciatica present- Primary documented in this encounter [facility] HealthcareHistory general Narrative - Reported* Type Description Date Medical History astma Medical History Osteoporosis Medical History HTN (hypertension) Medical History Hypercholesteremia Surgical History BL/CTR Surgical History craniotomy Surgical History rotator cup repair Surgical History rt knee arthosopy,chondroplasty Surgical History colonoscopy Surgical History EGD-2004 Surgical History RT TKA Surgical History Cystoscopy Surgical History afghan sigmoid resection Surgical History cholecystectomy Surgical History IVC filter Surgical History knee replacement left Surgical History fracture repair right femur Hospitalization History see above [employer] Other History general Narrative - Reported* Type Description Date Medical History astma Medical History Osteoporosis Medical History HTN (hypertension) Medical History Hypercholesteremia Surgical History BL/CTR Surgical History craniotomy Surgical History rotator cup repair Surgical History rt knee arthosopy,chondroplasty Surgical History Colonoscopy 02/2022 Surgical History EGD-2004 Surgical History RT TKA Surgical History Cystoscopy Surgical History afghan sigmoid resection Surgical History cholecystectomy Surgical History IVC filter Surgical History knee replacement left Surgical History fracture repair right femur Hospitalization History see above [employer] Other Hospital Discharge instructions No data available for this section [facility] [place] Reason for referral (narrative)* Reason Referral for lower e xtremity ulceration Diagnosis 1 Ulcer associated wit h varicose vein, with infection (I83.209) Referral Organization [facility] [place] rachael Referring Provider First Name Robert Referring Provider Last Name Genna Referring Provider Specialty Internal Me dicine Referred Organization [facility] Referred Address [address], [place],[address] Referred Provider Specialty Wound Care Referral Priority Routine General Notes Mrs. Tavarez has chroni c venous insufficiency and suffered a contusion injury to her RLE, which resulted in a nonhealing ulceration. It was sutured by the ER but didn't result in wound closure. She is being referred for debridement and bandaging. She was empirically placed on Mupirocin and Cephalexin. [employer] Other Reason for referral (narrative)No reason for referral [facility] Work Phone: Reason for visit NarrativeReferral Dr. Conley [facility] Other reason for visit Narrative* Rehabilitation - Outpatient (Routine) - Authorized Specialty Diagnoses / Procedures Referred By Rachel espinoza Referred To Contact Physical Therapy Diagnoses Low back pain, unspecified Proximal Leg Pain Procedures DC PHYSICAL THERAPY EVALUATION LOW COMPLEX 20 MINS DC OFFICE/OUTPATIENT [facility] 60 MINUTES Robert Vail MD [address] [place] [address] Phone: tel: fax: [facility] [address] [address] Phone: tel: fax: Referral ID Status Reason Start Date Expiration Date V isits Requested Visits Authorized [id number] Authorized 01/11/2025 07/10/2025 20 20 [facility] for [facility] Narrative* Rehabilitation - Outpatient (Routine) - Authorized Specialty Diagnoses / Procedures Referred By Contac t Referred To Contact Physical Therapy Diagnoses Low back pain, unspecified Proximal Leg Pain Procedures DC PHYSICAL THERAPY EVALUATION LOW COMPLEX 20 MINS DC OFFICE/OUTPATIENT [facility] 60 MINUTES Robert Vail MD [address] [place] [address] Phone: tel: fax: [facility] [address] [address] Phone: tel: fax: Referral ID Status Reason Start Date Expiration Date V isits Requested Visits Authorized [id number] Authorized 01/11/2025 11/27/2025 20 30 [facility] for [facility] Narrative* Rehabilitation - Outpatient (Routine) - Authorized Specialty Diagnoses / Procedures Referred By Contac t Referred To Contact Physical Therapy Diagnoses Low back pain, unspecified Proximal Leg Pain Procedures DC PHYSICAL THERAPY EVALUATION LOW COMPLEX 20 MINS DC OFFICE/OUTPATIENT [facility] 60 MINUTES Robert Vail MD Phone: tel: fax: [facility] [address] [address] Phone: tel: fax: Referral ID Status Reason Start Date Expiration Date V isits Requested Visits Authorized [id number] Authorized 01/11/2025 11/27/2025 20 30 [facility]Reason for [facility] Narrative* Rehabilitation - Outpatient (Routine) - Authorized Specialty Diagnoses / Procedures Referred By Contac t Referred To Contact Physical Therapy Diagnoses Low back pain, unspecified Proximal Leg Pain Procedures DC PHYSICAL THERAPY EVALUATION LOW COMPLEX 20 MINS DC OFFICE/OUTPATIENT [facility] 60 MINUTES Robert Vail MD Phone: tel: fax: [facility] [address] [facility] [address] [place] [address] Phone: tel: fax: Referral ID Status Reason Start Date Expiration Date V isits Requested Visits Authorized [id number] Authorized 01/11/2025 11/27/2025 20 30 [facility] HealthcareReason for [facility] Narrative* Rehabilitation - Outpatient (Routine) - Authorized Specialty Diagnoses / Procedures Referred By Contac t Referred To Contact Physical Therapy Diagnoses Low back pain, unspecified Proximal Leg Pain Procedures DC PHYSICAL THERAPY EVALUATION LOW COMPLEX 20 MINS DC OFFICE/OUTPATIENT [facility] 60 MINUTES Robert Vail DO Phone: tel: fax: [facility] [address] [facility] [address] [place] [address] Phone: tel: fax: Referral ID Status Reason Start Date Expiration Date V isits Requested Visits Authorized [id number] Authorized 01/11/2025 11/27/2025 20 30 [facility] HealthcareReason for visit Narrative* Rehabilitation - Outpatient (Routine) - Closed Specialty Diagnoses / Procedures Referred By Contac t Referred To Contact Physical Therapy Diagnoses Low back pain, unspecified Proximal Leg Pain Procedures DC PHYSICAL THERAPY EVALUATION LOW COMPLEX 20 MINS DC OFFICE/OUTPATIENT [facility] 60 MINUTES Robert Vail DO Phone: tel: fax: [facility] [address] [facility] [address] [place] [address] Phone: tel: fax: Referral ID Status Reason Start Date Expiration Date Visits Re quested Visits Authorized [id number] Closed 01/11/2025 11/27/2025 20 30 [facility] Summary Purpose Family History Relationship Condition Age at Onset Recorded Date/T mg Not Specified Cerebrovascular accident (CVA) Unknown Heart disease Unknown Relationship Condition Age at Onset Recorded Date/T mg Not Specified Cerebrovascular accident (CVA) Unknown Heart disease Unknown father Unknown Not Specified Unknown History of stroke Unknown Relationship Condition Age at Onset Recorded Date/T mg mother Cerebrovascular accident (CVA) Unknown Heart disease Unknown father Unknown mother Unknown History of stroke Unknown Relationship Condition Age at Onset Recorded Date/T mg mother Heart disease Unknown Cerebrovascular accident (CVA) Unknown History of stroke Unknown father Unknown Advance Directives Advance Directive Response Recorded Date/ Time Advance Directives No October 9:37am Advance Directive Response Recorded Date/ Time Advance Directives No October 8:37am Advance Directive Response Recorded Date/ Time Advance Directives No December 1:28pm Advance Directive Response Recorded Date/ Time Advance Directives No December 2:28pm Advance Directive Response Recorded Date/ Time Advance Directives No March 20 1:53pm Hospital Course Note [facility] Clinical Discharge Summary PERSON INFORMATION Name SANDRA TAVAREZ Age 79 Years 1940 Sex FEMALE Language Puerto [place]ican PCP Robert Vail Marital Status Med Service Med/Surg Acct# Arrival 05/23/2020 09:44:18 Visit Reason SURGERY - LEFT TOTAL KNEE Acuity LOS Address: [address] [place] [address] Comment: PROVIDER INFORMATION VITALS INFORMATION Vital Sign [...] whether neurogenic claudication present (M48.061) Referral Organization [facility] Referring Provider First Name Usama Referring Provider Last Name Eusebio Referring Provider Specialty Neurologica l Surgery Referred Organization [facility] Referred Provider Michael Dunaway Referred Address [address] [facility] [address] ,[place], [place],[address] Referred Provider Specialty Pain Medicin e Referral [...] joint Chronic pain Ischial bursitis Lumbosacral spondylosis Chief Complaint left leg wound Amb Documentation [facility] INCREASED BUTTOCK PAIN Z79.01 Reason for Visit Chronic venous insuf ficiency Thrombophilia Nonhealing surgical wound Generalized seizure disorder Hypercholesteremia Hypertension Lumbar spondylosis KERMIT (obstructive sleep apnea) Thrombophilia Type 2 diabetes mellitus with hyperglycemia Medicare annual wellness visit, subsequent Anticoagulant long-term use Arthritis of sacroiliac joint Chronic pain Ischial bursitis Lumbosacral spondylosis Chief Complaint left leg wound Amb Documentation [facility] INCREASED BUTTOCK PAIN Z79.01 ELIQUISKRISTOFER ISCHIAL BURSA INJ Reason for Visit Chronic venous insuf ficiency Thrombophilia Nonhealing surgical wound Generalized seizure disorder Hypercholesteremia Hypertension Lumbar spondylosis KERMIT (obstructive sleep apnea) Thrombophilia Type 2 diabetes mellitus with hyperglycemia Medicare annual wellness visit, subsequent Anticoagulant long-term use Arthritis of sacroiliac joint Chronic pain Ischial bursitis Lumbosacral spondylosis Chief Complaint Amb Documentation [facility] Wellness INCREASED BUTTOCK PAIN Z79.01 M47.817 M70.70 ELIQUISKRISTOFER ISCHIAL BURSA INJ Reason for Visit Generalized seizure disorder Hypercholesteremia Hypertension Lumbar spondylosis KERMIT (obstructive sleep apnea) Thrombophilia Type 2 diabetes mellitus with hyperglycemia Medicare annual wellness visit, subsequent Anticoagulant long-term use Arthritis of sacroiliac joint Chronic pain Ischial bursitis Lumbosacral spondylosis Chief Complaint [facility] Wellness INCREASED BUTTOCK PAIN Z79.01 M47.817 M70.70 ELIQUISKRISTOFER ISCHIAL BURSA INJ FOLLOW UP AFTER KRISTOFER ISCHIAL BURSA INJ Reason for Visit Generalized seizure disorder Hypercholesteremia Hypertension Lumbar spondylosis KERMIT (obstructive sleep apnea) Thrombophilia Type 2 diabetes mellitus with hyperglycemia Medicare annual wellness visit, subsequent Anticoagulant long-term use Arthritis of sacroiliac joint Chronic pain Ischial bursitis Lumbosacral spondylosis Ischial bursitis Lumbosacral spondylosis Post laminectomy syndrome Chief Complaint [facility] Wellness INCREASED BUTTOCK PAIN Z79.01 M47.817 M70.70 ELIQUISKRISTOFER ISCHIAL BURSA INJ FOLLOW UP AFTER KRISTOFER ISCHIAL BURSA INJ M96.1 Reason for Visit Generalized seizure disorder Hypercholesteremia Hypertension Lumbar spondylosis KERMIT (obstructive sleep apnea) Thrombophilia Type 2 diabetes mellitus with hyperglycemia Medicare annual wellness visit, subsequent Anticoagulant long-term use Arthritis of sacroiliac joint Chronic pain Ischial bursitis Lumbosacral spondylosis Ischial bursitis Lumbosacral spondylosis Post laminectomy syndrome Chief Complaint Z79.01 M47.817 M70.70 ELIQUISKRISTOFER ISCHIAL BURSA INJ FOLLOW UP AFTER KRISTOFER ISCHIAL BURSA INJ M96.1 review imaging discuss options Reason for Visit Ischial bursitis Lumbosacral spondylosis Post laminectomy syndrome Anticoagulant long-term use Chronic pain Lumbosacral spondylosis Post laminectomy syndrome Chief Complaint M47.817 M70.70 ELIQUISKRISTOFER ISCHIAL BURSA INJ FOLLOW UP AFTER KRISTOFER ISCHIAL BURSA INJ M96.1 review imaging discuss options 4 month f/u Reason for Visit Ischial bursitis Lumbosacral spondylosis Post laminectomy syndrome Anticoagulant long-term use Chronic pain Lumbosacral spondylosis Post laminectomy syndrome Generalized seizure disorder Hypercholesteremia Hypertension Lumbar spondylosis KERMIT (obstructive sleep apnea) Thrombophilia Type 2 diabetes mellitus with hyperglycemia Chief Complaint FOLLOW UP AFTER KRISTOFER ISCHIAL BURSA INJ M96.1 review imaging discuss options 4 month f/u z79.01 Reason for Visit Ischial bursitis Lumbosacral spondylosis Post laminectomy syndrome Anticoagulant long-term use Chronic pain Lumbosacral spondylosis Post laminectomy syndrome Generalized seizure disorder Hypercholesteremia Hypertension Lumbar spondylosis KREMIT (obstructive sleep apnea) Thrombophilia Type 2 diabetes mellitus with hyperglycemia Chief Complaint FOLLOW UP AFTER KRISTOFER ISCHIAL BURSA INJ M96.1 review imaging discuss options 4 month f/u z79.01 Back Pain Back Pain Reason for Visit Ischial bursitis Lumbosacral spondylosis Post laminectomy syndrome Anticoagulant long-term use Chronic pain Lumbosacral spondylosis Post laminectomy syndrome Generalized seizure disorder Hypercholesteremia Hypertension Lumbar spondylosis KERMIT (obstructive sleep apnea) Thrombophilia Type 2 diabetes mellitus with hyperglycemia Chief Complaint FOLLOW UP AFTER KRISTOFER ISCHIAL BURSA INJ M96.1 review imaging discuss options 4 month f/u z79.01 Back Pain Back Pain FOLLOW UP AFTER CAUDAL Reason for Visit Ischial bursitis Lumbosacral spondylosis Post laminectomy syndrome Anticoagulant long-term use Chronic pain Lumbosacral spondylosis Post laminectomy syndrome Generalized seizure disorder Hypercholesteremia Hypertension Lumbar spondylosis KERMIT (obstructive sleep apnea) Thrombophilia Type 2 diabetes mellitus with hyperglycemia Anticoagulant long-term use Chronic pain Lumbosacral spondylosis Post laminectomy syndrome Sacroiliitis Chief Complaint M96.1 review imaging discuss options 4 month f/u z79.01 Back Pain Back Pain FOLLOW UP AFTER CAUDAL bilateral SI joint injection Reason for Visit Anticoagulant long-t erm use Chronic pain Lumbosacral spondylosis Post laminectomy syndrome Generalized seizure disorder Hypercholesteremia Hypertension Lumbar spondylosis KERMIT (obstructive sleep apnea) Thrombophilia Type 2 diabetes mellitus with hyperglycemia Anticoagulant long-term use Chronic pain Lumbosacral spondylosis Post laminectomy syndrome Sacroiliitis Chief Complaint M96.1 review imaging discuss options 4 month f/u z79.01 Back Pain Back Pain FOLLOW UP AFTER CAUDAL bilateral SI joint injection f/u after kristofer SI joint inj Reason for Visit Anticoagulant long-t erm use Chronic pain Lumbosacral spondylosis Post laminectomy syndrome Generalized seizure disorder Hypercholesteremia Hypertension Lumbar spondylosis KERMIT (obstructive sleep apnea) Thrombophilia Type 2 diabetes mellitus with hyperglycemia Anticoagulant long-term use Chronic pain Lumbosacral spondylosis Post laminectomy syndrome Sacroiliitis Chronic pain Lumbosacral spondylosis Post laminectomy syndrome Sacroiliitis Chief Complaint Admit Date 4 month f/u December 07, 2024 1 0:20am Reason for Visit Admit Date Generalized seizure disorder November 10:20am Hypercholesteremia December 07, 2024 1 0:20am Hypertension December 07, 2024 1 0:20am Iron deficiency anemia December 07 10:20am Lumbar spondylosis December 07, 2024 1 0:20am KERMIT (obstructive sleep apnea) December 072024 10:20am Thrombophilia December 07, 2024 1 0:20am Type 2 diabetes mellitus with hyperglyce osmar December 07, 2024 10:20am Chief Complaint Admit Date 4 month f/u December 07, 2024 1 0:20am f/u to re-evaluate pain December 10 1:37pm Reason for Visit Admit Date Generalized seizure disorder November 10:20am Hypercholesteremia December 07, 2024 1 0:20am Hypertension December 07, 2024 1 0:20am Iron deficiency anemia December 07 10:20am Lumbar spondylosis December 07, 2024 1 0:20am KERMIT (obstructive sleep apnea) December 072024 10:20am Thrombophilia December 07, 2024 1 0:20am Type 2 diabetes mellitus with hyperglyce osmar December 07, 2024 10:20am Chronic pain December 10, 2024 1 :37pm Encounter for monitoring Coumadin therap y December 10, 2024 1:37pm Lumbosacral spondylosis December 10 1:37pm Post laminectomy syndrome December 10, 2024 1:37pm Sacroiliitis December 10, 2024 1 :37pm Chief Complaint Admit Date 4 month f/u December 07, 2024 1 0:20am f/u to re-evaluate pain December 10 1:37pm bleeding - left leg December 12, 2024 1 :39pm Chief Complaint Admit Date 4 month f/u December 07, 2024 1 0:20am f/u to re-evaluate pain December 10 1:37pm bleeding - left leg December 12, 2024 1 :39pm Z79.01 Z51.81 December 24, 2024 1 2:15pm Reason for Visit Admit Date Generalized seizure disorder November 10:20am Hypercholesteremia December 07, 2024 1 0:20am Hypertension December 07, 2024 1 0:20am Iron deficiency anemia December 07 10:20am Lumbar spondylosis December 07, 2024 1 0:20am KERMIT (obstructive sleep apnea) December 072024 10:20am Thrombophilia December 07, 2024 1 0:20am Type 2 diabetes mellitus with hyperglyce osmar December 07, 2024 10:20am Chronic pain December 10, 2024 1 :37pm Encounter for monitoring Coumadin therap y December 10, 2024 1:37pm Lumbosacral spondylosis December 10 1:37pm Post laminectomy syndrome December 10, 2024 1:37pm Sacroiliitis December 10, 2024 1 :37pm Anticoagulant long-term use November 1:39pm Chronic venous insufficiency November 1:39pm Laceration of leg excluding thigh 2024 1:39pm Chief Complaint Admit Date 4 month f/u December 07, 2024 1 0:20am f/u to re-evaluate pain December 10 1:37pm bleeding - left leg December 12, 2024 1 :39pm Z79.01 Z51.81 December 24, 2024 1 2:15pm Back Pain December 26, 2024 8 :46am Back Pain December 26, 2024 1 1:19am Chief Complaint Admit Date 4 month f/u December 07, 2024 1 0:20am f/u to re-evaluate pain December 10 1:37pm bleeding - left leg December 12, 2024 1 :39pm Z79.01 Z51.81 December 24, 2024 1 2:15pm Back Pain December 26, 2024 8 :46am Back Pain December 26, 2024 1 1:19am Cellulitis January 04, 2025 1 1:37am Chief Complaint Admit Date 4 month f/u December 07, 2024 1 0:20am f/u to re-evaluate pain December 10 1:37pm bleeding - left leg December 12, 2024 1 :39pm Z79.01 Z51.81 December 24, 2024 1 2:15pm Back Pain December 26, 2024 8 :46am Back Pain December 26, 2024 1 1:19am Cellulitis January 04, 2025 1 1:37am f/u after caudal with racz December 12:55pm Reason for Visit Admit Date Generalized seizure disorder November 10:20am Hypercholesteremia December 07, 2024 1 0:20am Hypertension December 07, 2024 1 0:20am Iron deficiency anemia December 07 10:20am Lumbar spondylosis December 07, 2024 1 0:20am KERMIT (obstructive sleep apnea) December 072024 10:20am Thrombophilia December 07, 2024 1 0:20am Type 2 diabetes mellitus with hyperglyce osmar December 07, 2024 10:20am Chronic pain December 10, 2024 1 :37pm Encounter for monitoring Coumadin therap y December 10, 2024 1:37pm Lumbosacral spondylosis December 10 1:37pm Post laminectomy syndrome December 10, 2024 1:37pm Sacroiliitis December 10, 2024 1 :37pm Anticoagulant long-term use November 1:39pm Chronic venous insufficiency November 1:39pm Laceration of leg excluding thigh 2024 1:39pm Cellulitis January 04, 2025 1 1:37am Lumbosacral spondylosis January 04 11:37am Superficial bruising of abdominal wall F ebru2024 11:37am Adverse reaction to anticoagulant 2024 11:37am Chronic pain January 16, 2025 12:55pm Encounter for monitoring Coumadin therap y January 16, 2025 12:55pm Lumbosacral spondylosis January 16, 2 025 12:55pm Post laminectomy syndrome January 16, 2025 12:55pm Sacroiliitis January 16, 2025 12:55pm Chief Complaint Admit Date 4 month f/u December 07, 2024 1 0:20am f/u to re-evaluate pain December 10 1:37pm bleeding - left leg December 12, 2024 1 :39pm Z79.01 Z51.81 December 24, 2024 1 2:15pm Back Pain December 26, 2024 8 :46am Back Pain December 26, 2024 1 1:19am Cellulitis January 04, 2025 1 1:37am f/u after caudal with racz December 12:55pm bilateral SI joint injection February 14, 2025 10:10am Chief Complaint Admit Date 4 month f/u December 07, 2024 1 0:20am f/u to re-evaluate pain December 10 1:37pm bleeding - left leg December 12, 2024 1 :39pm Z79.01 Z51.81 December 24, 2024 1 2:15pm Back Pain December 26, 2024 8 :46am Back Pain December 26, 2024 1 1:19am Cellulitis January 04, 2025 1 1:37am f/u after caudal with racz December 12:55pm bilateral SI joint injection February 14, 2025 10:10am f/u after kristofer SI joint inj February 26 10:33am Reason for Visit Admit Date Generalized seizure disorder November 10:20am Hypercholesteremia December 07, 2024 1 0:20am Hypertension December 07, 2024 1 0:20am Iron deficiency anemia December 07 10:20am Lumbar spondylosis December 07, 2024 1 0:20am KERMIT (obstructive sleep apnea) December 072024 10:20am Thrombophilia December 07, 2024 1 0:20am Type 2 diabetes mellitus with hyperglyce osmar December 07, 2024 10:20am Chronic pain December 10, 2024 1 :37pm Encounter for monitoring Coumadin therap y December 10, 2024 1:37pm Lumbosacral spondylosis December 10 1:37pm Post laminectomy syndrome December 10, 2024 1:37pm Sacroiliitis December 10, 2024 1 :37pm Anticoagulant long-term use November 1:39pm Chronic venous insufficiency November 1:39pm Laceration of leg excluding thigh 2024 1:39pm Cellulitis January 04, 2025 1 1:37am Lumbosacral spondylosis January 04 11:37am Superficial bruising of abdominal wall F ebruary 2024 11:37am Adverse reaction to anticoagulant ua 2024 11:37am Chronic pain January 16, 2025 12:55pm Encounter for monitoring Coumadin therap y January 16, 2025 12:55pm Lumbosacral spondylosis January 16 025 12:55pm Post laminectomy syndrome January 16, 2025 12:55pm Sacroiliitis January 16, 2025 12:55pm Chronic pain February 26, 2025 10:3 3am Encounter for monitoring Coumadin therap y February 26, 2025 10:33am Lumbosacral spondylosis February 26, 2025 10:33am Post laminectomy syndrome February 26 10:33am Sacroiliitis February 26, 2025 10:3 3am Chief Complaint Admit Date bleeding - left leg December 12, 2024 1 :39pm Z79.01 Z51.81 December 24, 2024 1 2:15pm Back Pain December 26, 2024 8 :46am Back Pain December 26, 2024 1 1:19am Cellulitis January 04, 2025 1 1:37am f/u after caudal with racz December 12:55pm bilateral SI joint injection February 14, 2025 10:10am f/u after kristofer SI joint inj February 26 10:33am *coumadin*bilateral L3,4,5 lumbar facet MBB March 12, 2025 1:03pm Reason for Visit Admit Date Anticoagulant long-term use November 1:39pm Chronic venous insufficiency November 1:39pm Laceration of leg excluding thigh 2024 1:39pm Cellulitis January 04, 2025 1 1:37am Lumbosacral spondylosis January 04 11:37am Superficial bruising of abdominal wall F ebruary 2024 11:37am Adverse reaction to anticoagulant 2024 11:37am Chronic pain January 16, 2025 12:55pm Encounter for monitoring Coumadin therap y January 16, 2025 12:55pm Lumbosacral spondylosis January 16 025 12:55pm Post laminectomy syndrome January 16, 2025 12:55pm Sacroiliitis January 16, 2025 12:55pm Chronic pain February 26, 2025 10:3 3am Encounter for monitoring Coumadin therap y February 26, 2025 10:33am Lumbosacral spondylosis February 26, 2025 10:33am Post laminectomy syndrome February 26 10:33am Sacroiliitis February 26, 2025 10:3 3am Chief Complaint Admit Date Z79.01 Z51.81 December 24, 2024 1 2:15pm Back Pain December 26, 2024 8 :46am Back Pain December 26, 2024 1 1:19am Cellulitis January 04, 2025 1 1:37am f/u after caudal with racz December 12:55pm bilateral SI joint injection February 14, 2025 10:10am f/u after kristofer SI joint inj February 26 10:33am *coumadin*bilateral L3,4,5 lumbar facet MBB March 12, 2025 1:03pm f/u after kristofer lumbar MBB March 20 1:27pm Reason for Visit Admit Date Cellulitis January 04, 2025 1 1:37am Lumbosacral spondylosis January 04 11:37am Superficial bruising of abdominal wall F ebruary 2024 11:37am Adverse reaction to anticoagulant Februa 2024 11:37am Chronic pain January 16, 2025 12:55pm Encounter for monitoring Coumadin therap y January 16, 2025 12:55pm Lumbosacral spondylosis January 16 12:55pm Post laminectomy syndrome January 16, 2025 12:55pm Sacroiliitis January 16, 2025 12:55pm Chronic pain February 26, 2025 10:3 3am Encounter for monitoring Coumadin therap y February 26, 2025 10:33am Lumbosacral spondylosis February 26, 2025 10:33am Post laminectomy syndrome February 26 10:33am Sacroiliitis February 26, 2025 10:3 3am Chronic pain March 20, 2025 1:2 7pm Encounter for monitoring Coumadin therap y March 20, 2025 1:27pm Lumbosacral spondylosis March 20, 2025 1:27pm Post laminectomy syndrome March 20 1:27pm Sacroiliitis March 20, 2025 1:2 7pm Chief Complaint Admit Date Cellulitis January 04, 2025 1 1:37am f/u after caudal with racz December 12:55pm bilateral SI joint injection February 14, 2025 10:10am f/u after kristofer SI joint inj February 26 10:33am *coumadin*bilateral L3,4,5 lumbar facet MBB March 12, 2025 1:03pm f/u after kristofer lumbar MBB March 20 1:27pm Coumadin kristofer lumbar facet RFA L3, L4, L5 March 28, 2025 10:14am Chief Complaint Admit Date f/u after caudal with racz December 12:55pm bilateral SI joint injection February 14, 2025 10:10am f/u after kristofer SI joint inj February 26 10:33am *coumadin*bilateral L3,4,5 lumbar facet MBB March 12, 2025 1:03pm f/u after kristofer lumbar MBB March 20 1:27pm Coumadin kristofer lumbar facet RFA L3, L4, L5 March 28, 2025 10:14am [facility] Wellness - HIGH RISK April 09, 2025 10:24am Reason for Visit Admit Date Lumbosacral spondylosis January 16, 025 12:55pm Post laminectomy syndrome January 16, 2025 12:55pm Sacroiliitis January 16, 2025 12:55pm Chronic pain January 16, 2025 12:55pm Encounter for monitoring Coumadin therap y January 16, 2025 12:55pm Lumbosacral spondylosis February 26, 2025 10:33am Post laminectomy syndrome February 26 10:33am Sacroiliitis February 26, 2025 10:3 3am Chronic pain February 26, 2025 10:3 3am Encounter for monitoring Coumadin therap y February 26, 2025 10:33am Lumbosacral spondylosis March 20, 2025 1:27pm Post laminectomy syndrome March 20 1:27pm Sacroiliitis March 20, 2025 1:2 7pm Chronic pain March 20, 2025 1:2 7pm Encounter for monitoring Coumadin therap y March 20, 2025 1:27pm Anemia April 09, 2025 10:24 am Generalized seizure disorder April 09, 2 025 10:24am Hypercholesteremia April 09, 2025 10:24 am Hypertension April 09, 2025 10:24 am Mammogram declined April 09, 2025 10:24 am KERMIT (obstructive sleep apnea) April 09, 2025 10:24am Thrombophilia April 09, 2025 10:24 am Type 2 diabetes mellitus with hyperglyce osmar April 09, 2025 10:24am Medicare annual wellness visit, [facility] [place] April 09, 2025 10:24am Chief Complaint Admit Date bilateral SI joint injection February 14, 2025 10:10am f/u after kristofer SI joint inj February 26 10:33am *coumadin*bilateral L3,4,5 lumbar facet MBB March 12, 2025 1:03pm f/u after kristofer lumbar MBB March 20 1:27pm Coumadin kristofer lumbar facet RFA L3, L4, L5 March 28, 2025 10:14am [facility] Wellness - HIGH RISK April 09, 2025 10:24am 2 week follow up after RFA April 15 1:48pm follow up after lumbar RFA May 06 11:46am Reason for Visit Admit Date Lumbosacral spondylosis February 26, 2025 10:33am Post laminectomy syndrome February 26 10:33am Sacroiliitis February 26, 2025 10:3 3am Chronic pain February 26, 2025 10:3 3am Encounter for monitoring Coumadin therap y February 26, 2025 10:33am Lumbosacral spondylosis March 20, 2025 1:27pm Post laminectomy syndrome March 20 1:27pm Sacroiliitis March 20, 2025 1:2 7pm Chronic pain March 20, 2025 1:2 7pm Encounter for monitoring Coumadin therap y March 20, 2025 1:27pm Anemia April 09, 2025 10:24 am Generalized seizure disorder April 09, 2 025 10:24am Hypercholesteremia April 09, 2025 10:24 am Hypertension April 09, 2025 10:24 am Mammogram declined April 09, 2025 10:24 am KERMIT (obstructive sleep apnea) April 09, 2025 10:24am Thrombophilia April 09, 2025 10:24 am Type 2 diabetes mellitus with hyperglyce osmar April 09, 2025 10:24am Medicare annual wellness visit, [facility] [place] April 09, 2025 10:24am Lumbosacral spondylosis April 15, 2025 1 :48pm Post laminectomy syndrome April 15, 2025 1:48pm Sacroiliitis April 15, 2025 1:48p m Chronic pain April 15, 2025 1:48p m Lumbosacral spondylosis May 06, 2025 1 1:46am Other chronic pain May 06, 2025 11:46 am Sacroiliitis May 06, 2025 11:46 am Chief Complaint Admit Date bilateral SI joint injection February 14, 2025 10:10am f/u after kristofer SI joint inj February 26 10:33am *coumadin*bilateral L3,4,5 lumbar facet MBB March 12, 2025 1:03pm f/u after kristofer lumbar MBB March 20 1:27pm Coumadin kristofer lumbar facet RFA L3, L4, L5 March 28, 2025 10:14am [facility] Wellness - HIGH RISK April 09, 2025 10:24am 2 week follow up after RFA April 15 1:48pm follow up after lumbar RFA May 06 11:46am right leg wound May 06, 2025 1:20p m Chief Complaint Admit Date f/u after kristofer lumbar MBB March 20 1:27pm Coumadin kristofer lumbar facet RFA L3, L4, L5 March 28, 2025 10:14am [facility] Wellness - HIGH RISK April 09, 2025 10:24am 2 week follow up after RFA April 15 1:48pm follow up after lumbar RFA May 06 11:46am right leg wound May 06, 2025 1:20p m 10 day f/u May 16, 2025 11:3 9am right leg swelling/sore June 14, 2025 11:24am Reason for Visit Admit Date Lumbosacral spondylosis March 20, 2025 1:27pm Post laminectomy syndrome March 20 1:27pm Sacroiliitis March 20, 2025 1:2 7pm Chronic pain March 20, 2025 1:2 7pm Encounter for monitoring Coumadin therap y March 20, 2025 1:27pm Anemia April 09, 2025 10:24 am Generalized seizure disorder April 09, 2 025 10:24am Hypercholesteremia April 09, 2025 10:24 am Hypertension April 09, 2025 10:24 am Mammogram declined April 09, 2025 10:24 am KERMIT (obstructive sleep apnea) April 09, 2025 10:24am Thrombophilia April 09, 2025 10:24 am Type 2 diabetes mellitus with hyperglyce osmar April 09, 2025 10:24am Medicare annual wellness visit, subseque nt April 09, 2025 10:24am Lumbosacral spondylosis April 15, 2025 1 :48pm Post laminectomy syndrome April 15, 2025 1:48pm Sacroiliitis April 15, 2025 1:48p m Chronic pain April 15, 2025 1:48p m Lumbosacral spondylosis May 06, 2025 1 1:46am Other chronic pain May 06, 2025 11:46 am Sacroiliitis May 06, 2025 11:46 am Chronic venous insufficiency May 06, 025 1:20pm Noninfected skin tear of right lower ext remity May 06, 2025 1:20pm Chronic venous insufficiency May 16, 2025 11:39am Noninfected skin tear of right lower ext remity May 16, 2025 11:39am Cellulitis June 14, 2025 11:2 4am Skin tear June 14, 2025 11:2 4am Chief Complaint Admit Date f/u after kristofer lumbar MBB March 20 1:27pm Coumadin kristofer lumbar facet RFA L3, L4, L5 March 28, 2025 10:14am [facility] Wellness - HIGH RISK April 09, 2025 10:24am 2 week follow up after RFA April 15 1:48pm follow up after lumbar RFA May 06 11:46am right leg wound May 06, 2025 1:20p m 10 day f/u May 16, 2025 11:3 9am right leg swelling/sore June 14, 2025 11:24am leg sore June 18, 2025 1:46 pm Reason for Visit Admit Date Lumbosacral spondylosis March 20, 2025 1:27pm Post laminectomy syndrome March 20 1:27pm Sacroiliitis March 20, 2025 1:2 7pm Chronic pain March 20, 2025 1:2 7pm Encounter for monitoring Coumadin therap y March 20, 2025 1:27pm Anemia April 09, 2025 10:24 am Generalized seizure disorder April 09 025 10:24am Hypercholesteremia April 09, 2025 10:24 am Hypertension April 09, 2025 10:24 am Mammogram declined April 09, 2025 10:24 am KERMIT (obstructive sleep apnea) April 09, 2025 10:24am Thrombophilia April 09, 2025 10:24 am Type 2 diabetes mellitus with hyperglyce osmar April 09, 2025 10:24am Medicare annual wellness visit, subseque nt April 09, 2025 10:24am Lumbosacral spondylosis April 15, 2025 1 :48pm Post laminectomy syndrome April 15, 2025 1:48pm Sacroiliitis April 15, 2025 1:48p m Chronic pain April 15, 2025 1:48p m Lumbosacral spondylosis May 06, 2025 1 1:46am Other chronic pain May 06, 2025 11:46 am Sacroiliitis May 06, 2025 11:46 am Chronic venous insufficiency May 06 025 1:20pm Noninfected skin tear of right lower ext remity May 06, 2025 1:20pm Chronic venous insufficiency May 16, 2025 11:39am Noninfected skin tear of right lower ext remity May 16, 2025 11:39am Cellulitis June 14, 2025 11:2 4am Skin tear June 14, 2025 11:2 4am Cellulitis June 18, 2025 1:46 pm Chronic venous insufficiency June 18, 2025 1:46pm Skin tear June 18, 2025 1:46 pm Additional Source Comments INFORMATION SOURCE (unrecogn ized section and content) DATE CREATED AUTHOR 08/15/2020 [facility] DATE CREATED AUTHOR AUTHOR'S ORGANIZ ATION 04/11/2023 [facility] DATE CREATED AUTHOR AUTHOR'S ORGANIZ ATION 01/08/2025 [facility] DATE CREATED AUTHOR AUTHOR'S ORGANIZ ATION 04/12/2025 [facility] DATE CREATED AUTHOR AUTHOR'S ORGANIZ ATION 05/12/2025 [facility] EPIC REASON FOR VISIT (unrecogniz ed section and content) Reason Onset Date Comments Cx PT 01/28/25 01/28/2025 3 month Follow upHEAD COLD, TIREDLab resultstemp eswpsmsX1M results1 month Follow upTBHMedication Questionmessage4 month/suture removaldiscuss wheelchairATBred spot on rightleg/ankle warm to the touch1 weekrefillCOUGHING, WHEEZINGMEDICARE WELLNESSF/U AFTER KRISTOFER S1 LTRELIQUIS BILATERAL S1 TRANSFO RAMINAL EPIDURAL STEROID INJECTIONfollow up after caudal w/raczPossible CellulitisRash/Itchingeliquis caudal epidural steroid injection with a Racz catheter6 week follow upFOLLOW UP AFTER SACRAL LATERAL RFAELIQUIS*LEFT SACRAL LATERAL RFA/ELF/U AFTER KRISTOFER SACRAL LATERAL NBELIQUISBILATERAL SACRAL LATERAL BRANCH NBIN CAR FEVER, COUGH, H/AFOLLOW UP AFTER KRISTOFER LUMBAR RFAELIQUIS*KRISTOFER LUMBAR FACET RFA L4-5, L5-S1/ELELIQUIS*KRISTOFER LUMBAR FACET MEDIAL BRANCH NERVE BLOCK L3-4, L4-5/ELfollow upafter lumbar facet medial branch nerve blockeliquis bilateral lumbar facet medial branch nerve block L3-4, L4- 5FOLLOW UP AFTER KRISTOFER SIELIQUIS*BILATERAL SACROILIAC JOINT INJ/ELINCREASE BACK PAIN RADIATING TO LOWER EXTREMITYMAIL PPW2 WEEK FOLLOW UP AFTER CAUDAL /RACZ COUMADIN CAUDAL EPIDURAL W/RACZREF BY DR USAMA BATISTA FOR SPINAL STENOSIS OF LUMBAR Care Teams (unrecognized sec tion and content) Team Status: Active Member Role Status Dates Robert Vail DO Primary Care Provider Active Team Status: Inactive Member Role Status Dates Robert Vail DO Primary Care Provider Active Start: December 24, 2024 End: December 24, 2024 Michael Dunaway MD Attending Provider Active Sta rt: December 24, 2024 End: December 24, 2024 Team Status: Inactive Member Role Status Dates Robert Vail DO Primary Care Provider Active Start: December 26, 2024 End: December 26, 2024 Michael Dunaway MD Attending Provider Active Sta rt: December 26, 2024 End: December 26, 2024 Team Status: Active Member Role Status Shannon Vail DO Primary Care Provider Active Start: December 26, 2024 Michael Dunaway MD Attending Provider, Other Provider Active Start: December 26, 2024 Team Status: Inactive Member Role Status Shannon Vail DO Primary Care Provide r, Attending Provider Active Start: January 04, 2025 End: January 04, 2025 Team Status: Inactive Member Role Status Shannon Vail DO Primary Care Provider Active Start: January 16, 2025 End: January 16, 2025 Michael Dunaway MD Attending Provider Active Sta rt: January 16, 2025 End: January 16, 2025 Team Status: Inactive Member Role Status Shannon Vail DO Primary Care Provider Active Start: February 14, 2025 End: February 14, 2025 Michael Dunaway MD Attending Provider Active Sta rt: February 14, 2025 End: February 14, 2025 Team Status: Active Member Role Status Shannon Vail DO Primary Care Provider Active Start: February 14, 2025 Michael Dunaway MD Attending Provider Active Sta rt: February 14, 2025 Team Status: Inactive Member Role Status Shannon Vail DO Primary Care Provider Active Start: February 26, 2025 End: February 26, 2025 Michael Dunaway MD Attending Provider Active Sta rt: February 26, 2025 End: February 26, 2025 Team Status: Active Member Role Status Shannon Vail DO Primary Care Provider Active Start: March 12, 2025 Michael Dunaway MD Attending Provider Active Sta rt: March 12, 2025 Team Status: Inactive Member Role Status Shannon Vail DO Primary Care Provider Active Start: March 12, 2025 End: March 12, 2025 Michael Dunaway MD Attending Provider Active Sta rt: March 12, 2025 End: March 12, 2025 Team Status: Inactive Member Role Status Shannon Vail DO Primary Care Provider Active Start: March 20, 2025 End: March 20, 2025 Michael Dunaway MD Attending Provider Active Sta rt: March 20, 2025 End: March 20, 2025 Team Status: Active Member Role Status Shannon Vail DO Primary Care Provide r, Attending Provider Active Start: December 12, 2024 Team Status: Inactive Member Role Status Shannon Vail DO Primary Care Provide r, Attending Provider Active Start: December 12, 2024 End: December 12, 2024 Team Status: Inactive Member Role Status Shannon Vail DO Primary Care Provider Active Start: May 28, 2024 End: May 28, 2024 Michael Dunaway MD Attending Provider Active Sta rt: May 28, 2024 End: May 28, 2024 Team Status: Inactive Member Role Status Shannon Vail DO Primary Care Provider Active Start: June 15, 2024 End: June 15, 2024 Michael Dunaway MD Attending Provider Active Sta rt: June 15, 2024 End: June 15, 2024 Team Status: Inactive Member Role Status Dates Robert Vail DO Primary Care Provider Active Start: July 31, 2024 End: July 31, 2024 Michael Dunaway MD Attending Provider Active Sta rt: July 31, 2024 End: July 31, 2024 Team Status: Inactive Member Role Status Shannon Vail DO Primary Care Provide r, Attending Provider Active Start: August 06, 2024 End: August 06, 2024 Team Status: Inactive Member Role Status Shannon Vail DO Primary Care Provider Active Start: August 09, 2024 End: August 09, 2024 Micheal Dunaway MD Attending Provider Active Start : August 09, 2024 End: August 09, 2024 Team Status: Inactive Member Role Status Shannon Vail DO Primary Care Provider Active Start: August 10, 2024 End: August 10, 2024 Michael Dunaway MD Attending Provider Active Sta rt: August 10, 2024 End: August 10, 2024 Team Status: Active Member Role Status Shannon Vail DO Primary Care Provider Active Start: August 10, 2024 Michael Dunaway MD Attending Provider, Other Provider Active Start: August 10, 2024 Team Status: Inactive Member Role Status Shannon Vail DO Primary Care Provider Active Start: August 24, 2024 End: August 24, 2024 Michael Dunaway MD Attending Provider Active Sta rt: August 24, 2024 End: August 24, 2024 Team Status: Active Member Role Status Shannon Vail DO Primary Care Provider Active Start: May 16, 2024 Shaikh Eduardo MD Attending Provider Active Sta rt: May 16, 2024 Team Status: Inactive Member Role Status Shannon Vail DO Primary Care Provide r, Attending Provider Active Start: March 29, 2024 End: March 29, 2024 Team Status: Active Member Role Status Dates Robert Vail DO Primary Care Provide r, Attending Provider Active Start: April 30, 2024 Team Status: Inactive Member Role Status Dates Robert Vail DO Primary Care Provider Active Start: April 30, 2024 End: April 30, 2024 Michael Dunaway MD Attending Provider Active Sta rt: April 30, 2024 End: April 30, 2024 Team Status: Inactive Member Role Status Dates Robert Vail DO Primary Care Provider Active Start: May 07, 2024 End: May 07, 2024 Michael Dunaway MD Attending Provider Active Sta rt: May 07, 2024 End: May 07, 2024 Team Status: Inactive Member Role Status Dates Robert Vail DO Primary Care Provider Active Start: May 09, 2024 End: May 09, 2024 Michael Dunaway MD Attending Provider Active Sta rt: May 09, 2024 End: May 09, 2024 Team Status: Active Member Role Status Dates Robert Vail DO Primary Care Provider Active Start: May 10, 2024 Michael Dunaway MD Attending Provider Active Sta rt: May 10, 2024 Team Status: Inactive Member Role Status Dates Robert Vail DO Primary Care Provider Active Start: May 10, 2024 End: May 10, 2024 Micheal Dunaway MD Attending Provider Active Sta rt: May 10, 2024 End: May 10, 2024 Team Status: Active Member Role Status Dates Robert Vail DO Primary Care Provider Active Start: February 17, 2024 MAREN Beatty Attending Provider Active St art: February 17, 2024 Team Status: Inactive Member Role Status Dates Robert Vail DO Primary Care Provide r, Attending Provider Active Start: February 15, 2024 End: February 15, 2024 Team Status: Inactive Member Role Status Dates Robert Vail DO Primary Care Provider Active Michael Dunaway MD Attending Provider Active Team Status: Inactive Member Role Status Dates Robert Vail DO Primary Care Provider Active Maico Lloyd DO Attending Provider Active Team Status: Active Member Role Status Dates Provider Conversion Attending Provider Active St art: December 09, 2023 Team Status: Inactive Member Role Status Dates Robert Vail DO Primary Care Provider Active Start: January 12, 2024 End: January 12, 2024 Juancarlos Campbell MD Attending Provider Active Start: January 12, 2024 End: January 12, 2024 Team Status: Inactive Member Role Status Dates Robert Vail DO Primary Care Provider Active Start: August 28, 2024 End: August 28, 2024 Michael Dunaway MD Attending Provider Active Sta rt: August 28, 2024 End: August 28, 2024 Team Status: Active Member Role Status Dates Robert Vail DO Primary Care Provider Active Start: August 28, 2024 Michael Dunaway MD Attending Provider Active Sta rt: August 28, 2024 Team Status: Inactive Member Role Status Dates Robert Vail DO Primary Care Provider Active Start: September 04, 2024 End: September 04, 2024 Michael Dunaway MD Attending Provider Active Sta rt: September 04, 2024 End: September 04, 2024 Team Status: Inactive Member Role Status Dates Robert Vail DO Primary Care Provide r, Attending Provider Active Start: December 07, 2024 End: December 07, 2024 Team Status: Inactive Member Role Status Dates Robert Vail DO Primary Care Provider Active Start: December 10, 2024 End: December 10, 2024 Michael Dunaway MD Attending Provider Active Sta rt: December 10, 2024 End: December 10, 2024 Tree Farmer Relationship Specialty Start Date End Date Robert Vail MD [address] [place] [id number] PCP - General Internal Medicine 04/03/24 Tree Farmer Relationship Specialty Start Date End Date Robert Vail MD [address] [place] [id number] PCP - General Internal Medicine 04/03/24 Tree Farmer Relationship Specialty Start Date End Date Robert Vail MD [address] [place] [id number] PCP - General Internal Medicine 04/03/24 Tree Farmer Relationship Specialty Start Date End Date Robert Vail MD [address] [place] [address] PCP - General Internal Medicine 04/03/24 Tree Farmer Relationship Specialty Start Date End Date Robert Vail MD [address] [facility] [place] [address] PCP - General Internal Medicine 04/03/24 Tree Farmer Relationship Specialty Start Date End Date Robert Vail MD [address] [facility] [place] [address] PCP - General Internal Medicine 04/03/24 Tree Farmer Relationship Specialty Start Date End Date Robert Vail MD [address] [facility] [place] [address] PCP - General Internal Medicine 04/03/24 Tree Farmer Relationship Specialty Start Date End Date Robert Vail MD [address] [facility] [place] [address] PCP - General Internal Medicine 04/03/24 Tree Farmer Relationship Specialty Start Date End Date Robert Vail MD [address] [facility] [place] [phone] PCP - General Internal Medicine 04/03/24 Tree Farmer Relationship Specialty Start Date End Date Robert Vail MD PCP - General Internal Medicine 04/03/24 Tree Farmer Relationship Specialty Start Date End Date Robert Vail MD PCP - General Internal Medicine 04/03/24 Tree Farmer Relationship Specialty Start Date End Date Robert Vail MD PCP - General Internal Medicine 04/03/24 Tree Farmer Relationship Specialty Start Date End Date Robert Vail MD PCP - General Internal Medicine 04/03/24 Team Status: Inactive Member Role Status Dates Robert Vail DO Primary Care Provider Active Start: March 28, 2025 End: March 28, 2025 Michael Dunaway MD Attending Provider Active Sta rt: March 28, 2025 End: March 28, 2025 Tree Farmer Relationship Specialty Start Date End Date Robert Vail DO PCP - General Internal Medicine 04/03/24 Tree Farmer Relationship Specialty Start Date End Date Robert Vail DO PCP - General Internal Medicine 04/03/24 Tree Farmer Relationship Specialty Start Date End Date Robert Vail DO PCP - General Internal Medicine 04/03/24 Tree Farmer Relationship Specialty Start Date End Date Robert Vail DO PCP - General Internal Medicine 04/03/24 Tree Farmer Relationship Specialty Start Date End Date Robert Vail DO PCP - General Internal Medicine 04/03/24 Team Status: Inactive Member Role Status Dates Robert Vail DO Primary Care Provide r, Attending Provider Active Start: April 09, 2025 End: April 09, 2025 Tree Farmer Relationship Specialty Start Date End Date Robert Vail DO PCP - General Internal Medicine 04/03/24 Tree Farmer Relationship Specialty Start Date End Date Robert Vail DO PCP - General Internal Medicine 04/03/24 Tree Farmer Relationship Specialty Start Date End Date GennaRobert PCP - General Internal Medicine 04/03/24 Tree Farmer Relationship Specialty Start Date End Date Robert Vail DO PCP - General Internal Medicine 04/03/24 Tree Farmer Relationship Specialty Start Date End Date Robert Vail DO PCP - General Internal Medicine 04/03/24 Tree Farmer Relationship Specialty Start Date End Date Robert Vail DO PCP - General Internal Medicine 04/03/24 Team Status: Inactive Member Role Status Dates Robert Vail DO Primary Care Provider Active Start: April 15, 2025 End: April 15, 2025 Michael Dunaway MD Attending Provider Active Sta rt: April 15, 2025 End: April 15, 2025 Team Status: Active Member Role Status Dates Robert Vail DO Primary Care Provide r, Attending Provider Active Start: April 18, 2025 Team Status: Inactive Member Role Status Dates Robert Vail DO Primary Care Provider Active Start: May 06, 2025 End: May 06, 2025 Michael Dunaway MD Attending Provider Active Sta rt: May 06, 2025 End: May 06, 2025 Team Status: Inactive Member Role Status Dates Robert Vail DO Primary Care Provide r, Attending Provider Active Start: May 06, 2025 End: May 06, 2025 Team Status: Inactive Member Role Status Dates Robert Vail DO Primary Care Provider Active Start: April 09, 2025 End: April 09, 2025 Robert Vail DO Attending Provider Active Sta rt: April 09, 2025 End: April 09, 2025 Team Status: Active Member Role Status Dates Robert Vail DO Primary Care Provider Active Start: April 18, 2025 Robert Vail DO Attending Provider Active Sta rt: April 18, 2025 Team Status: Inactive Member Role Status Dates Robert Vail , Primary Care Provider Active Start: May 06, 2025 End: May 06, 2025 Robert Vail , Attending Provider Active Sta rt: May 06, 2025 End: May 06, 2025 Team Status: Inactive Member Role Status Dates Robert Vail , Primary Care Provider Active Start: May 16, 2025 End: May 16, 2025 Robert Vail , Attending Provider Active Sta rt: May 16, 2025 End: May 16, 2025 Team Status: Inactive Member Role Status Dates Robert Vail , Primary Care Provider Active Start: June 14, 2025 End: June 14, 2025 Morena Donato APRN NP-C Attending Provider Act monster Start: June 14, 2025 End: June 14, 2025 Team Status: Inactive Member Role Status Dates Robert Vail , Primary Care Provider Active Start: June 18, 2025 End: June 18, 2025 Robert Vail Attending Provider Active Sta rt: June 18, 2025 End: June 18, 2025 Goals (unrecognized section and content) Goals may [...] BE BASED ON THE PRIMARY CLINICAL RECORDS. [facility] [employer] provides no warranty or guarantee of the accuracy or completeness of information in this document.
== END 2025-07-17 10:30 | disposition home or self-care (01) ==
LOC: WC 10:30
PROVIDERS: PCP Internal Medicine; Visit Provider Physician Assistant
DX: I87.311 Chronic venous hypertension (idiopathic) with ulcer of right lower extremity (principal); L97.812 Non-pressure chronic ulcer of other part of right lower leg with fat layer exposed
CPT/HCPCS: G0463

== ENCOUNTER 2025-07-29 00:48 | Outpatient (RCR) | payer MEDICARE, OTHER, SELFPAY | END 2025-08-27 15:43 | disposition home or self-care (01) | LOC: MM 00:48 | PROVIDERS: PCP Internal Medicine; Visit Provider Internal Medicine | DX: Z51.81 Encounter for therapeutic drug level monitoring (principal); Z79.01 Long term (current) use of anticoagulants; I82.499 Acute embolism and thrombosis of other specified deep vein of unspecified lower extremity | CPT/HCPCS: 85610; G0463 ==

== ENCOUNTER 2025-07-31 12:56 | Outpatient (OUT) | payer MEDICARE, OTHER, SELFPAY ==
--- OUTSIDE RECORDS SUMMARY | 2025-07-31 17:44 | XMS_ITS | CCD ---
Author Organization [facility] Care Team Providers Care Critical Care Cns Name Role Phone ROBERT VAIL Primary Care Physician Quita Simmons Unavailable Usama Batista Unavailable Michael Dunaway Unavailable Maico Lloyd Unavailable DO Robert Vail Primary Care Provider DO Maico Lloyd Attending Provider [phone] MD Michael Dunaway Attending Provider [phone] Kaitlynn Foy Unavailable Ursula Velarde Unavailable Robert Vail Unavailable Ivon Batista Unavailable GENNA, DR JONES Admitting Unavailable BALL, DR JONES Attending Unavailable BALL, DR JONES Primary Care Unavailable BALL, DR JONES Consulting Unavailable CAROLEBER, DR NIDA Lopez Consulting Unavailable BALL, DR [...] Unavailable Genna, DO Jones Primary Care Provider [phone] MD Juancarlos Campbell Attending Provider DO Robert Vail Primary Care Provider MD Juancarlos Campbell Attending Provider Genna, DO Jones Primary Care Provider MD Michael Dunaway Attending Provider Genna, DO Jones Primary Care Provider MD Michael Dunaway Attending Provider Genna, DO Jones Primary Care Provider MD Michael Dunaway Attending Provider [phone] MD Micheal Dunaway Attending Provider Robert Vail [...] Attending Provider Morena Donato APRN Attending Provider [phone] Allergies Allergy Classification Reported Allergen(s) Allergy Type Date of Onset Reaction(s) Facility NSAIDs (1 source) celecoxib Drug Allergy 05-28-20 24 [facility] Penicillins (antibiotic) (1 source) Penicillins Drug Allergy 05-28-20 [facility] Serotonin Reuptake Inhibitors (SSRIs) (1 source) Citalopram Drug Allergy 05-28-20 24 [facility] (2 sources) Adhesive Tape; 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: [Tape] Drug allergy rash [facility] (20 sources) celecoxib; 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: [celecoxib] Drug Allergy 05-05-20 22 rash, Hives, Unknown [facility] (1 source) Penicillins; 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: [penicillins] Drug allergy groggy [facility] Comment on above: Pt. states PCN does n't work for me, it just doesn't work (20 sources) Penicillin G Drug Allergy rash [facility] [place] Other (20 sources) Penicillins; 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: [Penicillins] Allergy to substance 12-04-19 14 Rash, Itching, Swelling [facility] (2 sources) celecoxib Drug Allergy 12-04-19 14 [facility] (1 source) Citalopram Drug Allergy [facility] (1 source) Desonide Drug Allergy [facility] (20 sources) Citalopram Drug Allergy 12-27-19 24 Unknown, Hives [facility] (18 sources) Penicillin Drug Allergy 08-17-20 13 Unknown [facility] [place] Other (1 source) Substance with penicillin structure and antibacterial mechanism of action (substance) Drug allergy Unknown [facility] [place] Other (1 source) patient allergy list reviewed by nurse or physicia Propensity to adverse reactions 09-19-20 14 Comment:Done [facility] [place] Other (1 source) celecoxib Drug Allergy 01-04-20 25 [facility] (1 source) Citalopram Drug Allergy 01-04-20 25 [facility] (20 sources) celecoxib Drug Allergy 01-16-20 [...] 2:25pm Start: 04-08-2023 take 1 capsule by [facility] twice daily as needed Doxycycline Hyclate 100 [...] 12:24pm Start: 03-03-2022 take 1 capsule by [facility] once daily Ferrex-150 oral capsule 150 mg = 1 cap(s), Oral, Daily, Refills(s) 0 Start Date: 03/03/22 Status: Ordered take 1 capsule by [facility] every other day IFerex 150 150 MG 1 capsule Orally qod for 30 days Active take 1 capsule by [facility] once daily IFerex 150 150 MG take 1 capsule by mouth once daily for 30 Not-Taking take 1 capsule by [facility] once daily IFerex 150 150 MG 1 [...] twice daily for 14 days Aug, Active [id number] 200 actuat albuterol 0.09 mg/actuat metered dose [...] Start: 09-27-2016 take 1 capsule by mo [facility] every twelve hours Cephalexin 500 MG 1 [...] by mouth Active take 1 tablet by dankia th every twenty-four hours Iron 325 (65 [...] 10:21am Start: 04-10-2015 take 1 capsule by [facility] twice daily Dilantin 100 mg Cap-ER 100 mg = 1 cap(s), Oral, BID, Refills(s) 0, Seizure Start Date: 04/10/15 Status: Ordered take 1 capsule by [facility] every twelve hours Dilantin 100 MG 1 [...] Onset: 2 Episodic Other aftercare (20 sources) [facility] (current) use of anticoagulants; 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: [Long-term (current) use of anticoagulants] Onset: 2 Resolved: 2 Episodic Other aftercare (1 source) Long-term current use of drug therapy; 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: [Other prison (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 therapy] Episodic Other aftercare (20 [...] Basophils (Bld) [#/Vol] Automated basophil count 0.0-0.1 [facility] Basophils (Bld) [#/Vol] 0.0 10 3/uL 0.0-0.1 [facility] Basophils/100 WBC Auto (Bld) on 04-18-2025 Basophils/100 WBC (Bld) Automated basophil % 0.2-2.0 [facility] Basophils/100 WBC (Bld) 0.6 % 0.2-2.0 [facility] Cholesterol in LDL Calc [Mas s/Vol]on 04-18-2025 Cholesterol in LDL [Mass/Vol] Cholesterol in LDL [Mass/volume] in Serum or Plasma by calculation [facility] Comment on above: <100 mg/dl [id number] 0-129 mg/dl NEAR OR ABOVE [id number] mg/dl BORDERLINE [id number] mg/dl HIGH>190 mg/dl VERY HIGH Cholesterol in LDL [Mass/Vol] 52.0 mg/dL [facility] Comment on above: <100 mg/dl [id number] 0-129 mg/dl NEAR OR ABOVE [id number] mg/dl BORDERLINE [id number] mg/dl HIGH>190 mg/dl VERY HIGH Cholesterol in VLDL Calc [Ma ss/Vol]on 04-18-2025 Cholesterol in VLDL [Mass/Vol] Cholesterol in VLDL [Mass/volume] in Serum or Plasma by calculation [facility] Cholesterol in VLDL [Mass/Vol] 10.0 mg/dL [facility] Eosinophils/100 WBC Auto (Bl d)on 04-18-2025 Eosinophils/100 WBC (Bld) Automated eosinophil % 0.9-7.0 [facility] Eosinophils/100 WBC (Bld) 1.3 % 0.9-7.0 [facility] Erythrocyte distribution wid th Auto (RBC) [Ratio]on 04-18-2025 Erythrocyte distribution width (RBC) [Ratio] Erythrocyte distribution width [Ratio] by Automated count 11.0-15.0 [facility] Erythrocyte distribution width (RBC) [Ratio] 14.6 % 11.0-15.0 [facility] Estimated glomerular filtrat ion rate (GFR) non- Americanon 04-18-2025 GFR/1.73 sq M.predicted among non-blacks MDRD (S/P/Bld) [Vol rate/Area] Estimated glomerular filtration rate (GFR) non- >=60 mL/min/1.7 3m 2 [facility] GFR/1.73 sq M.predicted among non-blacks MDRD (S/P/Bld) [Vol rate/Area] mL/min/{1.73_m2} >=60 mL/min/1.7 3m 2 [facility] Globulin Calc (S) [Mass/Vol] on 04-18-2025 Globulin (S) [Mass/Vol] Serum globulin measurement by calculation (mass/volume) [facility] Globulin (S) [Mass/Vol] 3.5 g/dL [facility] Glucose mean value [Mass/vol ume] in Blood Estimated from glycated hemoglobinon 04-18-2025 Average glucose Estimated from glycated hemoglobin (Bld) [Mass/Vol] Glucose mean value [Mass/volume] in Blood Estimated from glycated hemoglobin [facility] Average glucose Estimated from glycated hemoglobin (Bld) [Mass/Vol] 154 mg/dL [facility] Hematocrit Auto (Bld) [Volum e fraction]on 04-18-2025 Hematocrit (Bld) [Volume fraction] Hematocrit [Volume Fraction] of Blood by Automated count 36.0-48.0 [facility] Hematocrit (Bld) [Volume fraction] 41.2 % 36.0-48.0 [facility] Hemoglobin A1c percentageon 04-18-2025 HbA1c (Bld) [Mass fraction] Hemoglobin A1c percentage High 4.5-6.2 [facility] Comment on above: ADA RECOMMENDED LIMI T 4.0 - 6.0ADA THERAPEUTIC TARGET < 7.0ACTION SUGGESTED> 7.0 HbA1c (Bld) [Mass fraction] 7.0 % High 4.5-6.2 [facility] Comment on above: ADA RECOMMENDED LIMI T 4.0 - 6.0ADA THERAPEUTIC TARGET < 7.0ACTION SUGGESTED> 7.0 Hemoglobin [Mass/volume] in Bloodon 04-18-2025 Hemoglobin (Bld) [Mass/Vol] Hemoglobin [Mass/volume] in Blood 12.0-16.0 [facility] Hemoglobin (Bld) [Mass/Vol] 13.3 g/dL 12.0-16.0 [facility] Laboratory - Chemistry and C hemistry - challengeon 04-18-2025 Albumin [Mass/Vol] 3.5 g/dL 3.4-5.0 [facility] ALP [Catalytic activity/Vol] 103 U/L 46-116 [facility] ALT [Catalytic activity/Vol] 25 U/L 14-59 [facility] AST [Catalytic activity/Vol] 16 U/L 15-37 [facility] Bilirubin [Mass/Vol] 0.9 mg/dL 0.2-1.0 [facility] Calcium [Mass/Vol] 9.6 mg/dL 8.5-10.1 [facility] Chloride [Moles/Vol] 103 mmol/L 98-107 [facility] Cholesterol [Mass/Vol] 140 mg/dL <=200 [facility] Cholesterol in HDL [Mass/Vol] 78 mg/dL High 40-60 [facility] Comment on above: > or =60 mg/dl - LOW CARDIOVASCULAR RISK<40 mg/dl - HIGH CARDIOVASCULAR RISK CO2 [Moles/Vol] 30.8 mmol/L 21.0-32.0 [facility] Creatinine [Mass/Vol] 0.80 mg/dL 0.55-1.02 [facility] GFR/1.73 sq M.predicted MDRD (S/P/Bld) [Vol rate/Area] mL/min/{1.73_m2} >=60 mL/min/1.7 3m 2 [facility] Glucose [Mass/Vol] 123 mg/dL High 74-106 [facility] Potassium [Moles/Vol] 4.3 mmol/L 3.5-5.1 [facility] Protein [Mass/Vol] 7.0 g/dL 6.4-8.2 [facility] Sodium [Moles/Vol] 142 mmol/L 136-145 [facility] Triglyceride [Mass/Vol] 50 mg/dL <=150 [facility] TSH Qn 0.678 m[IU]/L 0.358-3.74 0 [facility] Urea nitrogen [Mass/Vol] 16.0 mg/dL 7.0-18.0 [facility] Urea nitrogen/Creatinin e [Mass ratio] 20.0 mg/mg [facility] Laboratory - Hematology and Cell countson 04-18-2025 Immature granulocytes/100 WBC (Bld) 0.6 % High 0.0-0.5 [facility] Leukocytes [#/volume] correc torri for nucleated erythrocytes in Blood by Automated counon 04-18-2025 WBC corrected for nucl RBC Auto (Bld) [#/Vol] Leukocytes [#/volume] corrected for nucleated erythrocytes in Blood by Automated coun 4.0-11.0 [facility] WBC corrected for nucl RBC Auto (Bld) [#/Vol] 5.4 10 3/uL 4.0-11.0 [facility] Lymphocytes Auto (Bld) [#/Vo l]on 04-18-2025 Lymphocytes (Bld) [#/Vol] Lymphocytes [#/volume] in Blood by Automated count Low 1.2-3.8 [facility] Lymphocytes (Bld) [#/Vol] 0.7 10 3/uL Low 1.2-3.8 [facility] Lymphocytes/100 WBC Auto (Bl d)on 04-18-2025 Lymphocytes/100 WBC (Bld) Lymphocytes/100 leukocytes in Blood by Automated count Low 20.5-60.0 [facility] Lymphocytes/100 WBC (Bld) 13.5 % Low 20.5-60.0 [facility] MCH Auto (RBC) [Entitic mass ]on 04-18-2025 MCH (RBC) [Entitic mass] MCH [Entitic mass] by Automated count 26.7-34.0 [facility] MCH (RBC) [Entitic mass] 29.2 pg 26.7-34.0 [facility] MCHC Auto (RBC) [Mass/Vol]on 04-18-2025 MCHC (RBC) [Mass/Vol] MCHC [Mass/volume] by Automated count 29.9-35.2 [facility] MCHC (RBC) [Mass/Vol] 32.3 g/dL 29.9-35.2 [facility] MCV Auto (RBC) [Entitic vol] on 04-18-2025 MCV (RBC) [Entitic vol] MCV [Entitic volume] by Automated count 81.0-99.0 [facility] MCV (RBC) [Entitic vol] 90.5 fL 81.0-99.0 [facility] Microalbumin [Mass/volume] i n Urineon 04-18-2025 Albumin DL <= 20 mg/L (U) [Mass/Vol] Microalbumin [Mass/volume] in Urine <=30.0 [facility] Albumin DL <= 20 mg/L (U) [Mass/Vol] 2.2 mg/dL <=30.0 [facility] Monocytes Auto (Bld) [#/Vol] on 04-18-2025 Monocytes (Bld) [#/Vol] Automated blood monocyte count 0.3-0.8 [facility] Monocytes (Bld) [#/Vol] 0.5 10 3/uL 0.3-0.8 [facility] Monocytes/100 WBC Auto (Bld) on 04-18-2025 Monocytes/100 WBC (Bld) Automated monocyte % 1.7-12.0 [facility] Monocytes/100 WBC (Bld) 8.3 % 1.7-12.0 [facility] Neutrophils Auto (Bld) [#/Vo l]on 04-18-2025 Neutrophils (Bld) [#/Vol] Neutrophils [#/volume] in Blood by Automated count 1.4-6.5 [facility] Neutrophils (Bld) [#/Vol] 4.1 10 3/uL 1.4-6.5 [facility] Neutrophils/100 WBC Auto (Bl d)on 04-18-2025 Neutrophils/100 WBC (Bld) Automated neutrophil % High 43.0-75.0 [facility] Neutrophils/100 WBC (Bld) 75.7 % High 43.0-75.0 [facility] No Panel Informationon 04-18 Urine Random Creatinine 49.06 mg/dL 20.00-300. 00 [facility] Eosinophils # (Auto) 0.1 10 3/uL 0.0-0.7 [facility] Immature Granulocyte # (Auto) 0.03 10 3/uL 0.00-0.03 [facility] Platelet mean volume Auto (B ld) [Entitic vol]on 04-18-2025 Platelet mean volume (Bld) [Entitic vol] Platelet mean volume [Entitic volume] in Blood by Automated count 9.5-13.5 [facility] Platelet mean volume (Bld) [Entitic vol] 10.2 fL 9.5-13.5 [facility] Platelets Auto (Bld) [#/Vol] on 04-18-2025 Platelets (Bld) [#/Vol] Platelets [#/volume] in Blood by Automated count 150-450 [facility] Platelets (Bld) [#/Vol] 194 10 3/uL 150-450 [facility] RBC Auto (Bld) [#/Vol]on RBC (Bld) [#/Vol] Erythrocytes [#/volu me] in Blood by Automated count 4.20-5.40 [facility] RBC (Bld) [#/Vol] 4.55 10 6/uL 4.20-5.40 [facility] Serum or plasma albumin/glob ulin mass ratioon 04-18-2025 Albumin/Globulin [Mass ratio] Serum or plasma albumin/globulin mass ratio [facility] Albumin/Globulin [Mass ratio] 1.0 {ratio} [facility] Serum or plasma anion gap de terminationon 04-18-2025 Anion gap [Moles/Vol] Serum or plasma anion gap determination [facility] Anion gap [Moles/Vol] 12.5 mmol/L [facility] Serum or plasma total choles terol/high density lipoprotein (HDL) cholesterol mass stephane 04-18-2025 Cholesterol.total/ Cholesterol in HDL [Mass ratio] Serum or plasma total cholesterol/high density lipoprotein (HDL) cholesterol mass rat [facility] Comment on above: 3.3 - 4.4 LOW RISK4. 4 - 7.1 AVERAGE RISK7.1 - 11.0 MODERATE RISK>11.0 HIGH RISK Cholesterol.total/ Cholesterol in HDL [Mass ratio] 1.8 {ratio} [facility] Comment on above: 3.3 - 4.4 LOW RISK4. 4 - 7.1 AVERAGE RISK7.1 - 11.0 MODERATE RISK>11.0 HIGH RISK Urine microalbumin/creatinin e mass ratioon 04-18-2025 Albumin/Creatinine DL <= 20 mg/L (U) [Mass ratio] Urine microalbumin/creatinine mass ratio High 0.0-29.9 [facility] Comment on above: NO MICROALBUMINURIA 0-29 MG/GCLINICAL MICROALBUMINURIA 30-300 MG/GMACROALBUMINURIA >300 MG/G Albumin/Creatinine DL <= 20 mg/L (U) [Mass ratio] 44.8 mg/g High 0.0-29.9 [facility] Comment on above: NO MICROALBUMINURIA 0-29 MG/GCLINICAL [...] mm Hg [id number] 2. 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 Redundant colon [...] ago Toba (more content not included)... Normal [facility] Comment on above: Result Comment: Elec tronically [...] you for choosing us for your care. [facility] Ambulatory Visit Summaryon 0 02-26-2025 Ambulatory Visit [...] for choosing us for your care. Normal [facility] INR in Platelet poor plasma by Coagulation assayOrdered By: Michael uDnaway on 12-26-2024 INR Coag (PPP) [Relative time] INR in Platelet poor plasma by Coagulation assay [facility] Comment on above: INR Therapeutic Rang e [...] 29.0 s Normal 25.1-36.5 [facility] Comment on above: Result Comment: A he matocrit value greater than 55% may lead to inaccurate results in coagulation testing. Patients having hematocrit values >55% require a special collection tube for coagulation studies. Please contact the laboratory at [phone] for redraw instructions. PERFORMED BY: [place] [address] PATHOLOGIST ELECTRIC POWER MACHINE OPERATOR ESDRAS MOREL M.D. Performed By: #### P T, PTT #### [place] [id number] [facility] Prothrombin Time INRon 12-26 INR Coag (PPP) [Relative time] 1.1 {INR} Normal [facility] Comment on above: [...] Performed By: #### P T, PTT #### [place] [id number] [facility] PT Coag (PPP) [Time] 13.1 s High 9.0-12.9 [facility] Comment on above: Result Comment: A he matocrit value greater than 55% may lead to inaccurate results in coagulation testing. Patients having hematocrit values >55% require a special collection tube for coagulation studies. Please contact the laboratory at [phone] for redraw instructions. Performed By: #### P T, PTT #### [place] [id number] [facility] Prothrombin time (PT)Ordered By: Michael Dunaway on 12-26-2024 PT Coag (PPP) [Time] Prothrombin time (PT) High 9.0-12.9 [facility] Comment on above: A hematocrit value g reater than 55% may lead to inaccurate results in coagulation testing. Patients having hematocrit values >55% require a special collection tube for coagulation studies. Please contact the laboratory at [phone] for redraw instructions. aPTT in Platelet poor plasma by Coagulation assayOrdered By: Michael Dunaway on 12-26-2024 aPTT Coag (PPP) [Time] Activated partial thromboplastin time (aPTT) in platelet poor plasma by coagulation a 25.1-36.5 [facility] Comment on above: A hematocrit value g reater than 55% may lead to inaccurate results in coagulation testing. Patients having hematocrit values >55% require a special collection tube for coagulation studies. Please contact the laboratory at [phone] for redraw instructions. INR in Platelet poor plasma by Coagulation assayOrdered By: Michael Dunaway on 12-24-2024 INR Coag (PPP) [Relative time] INR in Platelet poor plasma by Coagulation assay [facility] Comment on above: INR Therapeutic Rang e [...] time] 1.6 {INR} Normal [facility] Comment on above: [...] heart valves: 3 - 4.5 PERFORMED BY: [address] [place] [address] PATHOLOGIST ELECTRIC POWER MACHINE OPERATOR ESDRAS MOREL M.D. Performed By: #### P T #### [address] [place] [address] [facility] PT Coag (PPP) [Time] 18.8 s High 9.0-12.9 [facility] Comment on above: Result Comment: A he matocrit value greater than 55% may lead to inaccurate results in coagulation testing. Patients having hematocrit values >55% require a special collection tube for coagulation studies. Please contact the laboratory at [phone] for redraw instructions. Performed By: #### P T #### [facility] [address] [place] [id number] [facility] Prothrombin time (PT)Ordered By: Michael Dunaway on 12-24-2024 PT Coag (PPP) [Time] Prothrombin time (PT) High 9.0-12.9 [facility] Comment on above: A hematocrit value g reater than 55% may lead to inaccurate results in coagulation testing. Patients having hematocrit values >55% require a special collection tube for coagulation studies. Please contact the laboratory at [phone] for redraw instructions. Basophils Auto (Bld) [#/Vol] on 12-12-2024 Basophils (Bld) [#/Vol] Automated basophil count 0.0-0.1 [facility] Basophils/100 WBC Auto (Bld) on 12-12-2024 Basophils/100 WBC (Bld) Automated basophil % 0.2-2.0 [facility] Eosinophils/100 WBC Auto (Bl d)on 12-12-2024 Eosinophils/100 WBC (Bld) Automated eosinophil % 0.9-7.0 [facility] Erythrocyte distribution wid th Auto (RBC) [Ratio]on 12-12-2024 Erythrocyte distribution width (RBC) [Ratio] Erythrocyte distribution width [Ratio] by Automated count 11.0-15.0 [facility] Glucose mean value [Mass/vol ume] in Blood Estimated from glycated hemoglobinon 12-12-2024 Average glucose Estimated from glycated hemoglobin (Bld) [Mass/Vol] Glucose mean value [Mass/volume] in Blood Estimated from glycated hemoglobin [facility] Hematocrit Auto (Bld) [Volum e fraction]on 12-12-2024 Hematocrit (Bld) [Volume fraction] Hematocrit [Volume Fraction] of Blood by Automated count 36.0-48.0 [facility] Hemoglobin [Mass/volume] in Bloodon 12-12-2024 Hemoglobin (Bld) [Mass/Vol] Hemoglobin [Mass/volume] in Blood 12.0-16.0 [facility] Laboratory - Chemistry and C hemistry - challengeon 12-12-2024 Ferritin [Mass/Vol] 39.0 ng/mL 8.0-252.0 [facility] Laboratory - Hematology and Cell countson 12-12-2024 HbA1c (Bld) [Mass fraction] 6.5 % High 4.5-6.2 [facility] Comment on above: ADA RECOMMENDED LIMI T 4.0 - 6.0ADA THERAPEUTIC TARGET < 7.0ACTION SUGGESTED> 7.0 Immature granulocytes/100 WBC (Bld) 0.4 % 0.0-0.5 [facility] Leukocytes [#/volume] correc torri for nucleated erythrocytes in Blood by Automated counon 12-12-2024 WBC corrected for nucl RBC Auto (Bld) [#/Vol] Leukocytes [#/volume] corrected for nucleated erythrocytes in Blood by Automated coun 4.0-11.0 [facility] Lymphocytes Auto (Bld) [#/Vo l]on 12-12-2024 Lymphocytes (Bld) [#/Vol] Lymphocytes [#/volume] in Blood by Automated count Low 1.2-3.8 [facility] Lymphocytes/100 WBC Auto (Bl d)on 12-12-2024 Lymphocytes/100 WBC (Bld) Lymphocytes/100 leukocytes in Blood by Automated count Low 20.5-60.0 [facility] MCH Auto (RBC) [Entitic mass ]on 12-12-2024 MCH (RBC) [Entitic mass] MCH [Entitic mass] by Automated count 26.7-34.0 [facility] MCHC Auto (RBC) [Mass/Vol]on 12-12-2024 MCHC (RBC) [Mass/Vol] MCHC [Mass/volume] by Automated count 29.9-35.2 [facility] MCV Auto (RBC) [Entitic vol] on 12-12-2024 MCV (RBC) [Entitic vol] MCV [Entitic volume] by Automated count 81.0-99.0 [facility] Monocytes Auto (Bld) [#/Vol] on 12-12-2024 Monocytes (Bld) [#/Vol] Automated blood monocyte count 0.3-0.8 [facility] Monocytes/100 WBC Auto (Bld) on 12-12-2024 Monocytes/100 WBC (Bld) Automated monocyte % 1.7-12.0 [facility] Neutrophils Auto (Bld) [#/Vo l]on 12-12-2024 Neutrophils (Bld) [#/Vol] Neutrophils [#/volume] in Blood by Automated count 1.4-6.5 [facility] Neutrophils/100 WBC Auto (Bl d)on 12-12-2024 Neutrophils/100 WBC (Bld) Automated neutrophil % High 43.0-75.0 [facility] No Panel Informationon 12-12 Eosinophils # (Auto) 0.1 10 3/uL 0.0-0.7 [facility] Immature Granulocyte # (Auto) 0.02 10 3/uL 0.00-0.03 [facility] Platelet mean volume Auto (B ld) [Entitic vol]on 12-12-2024 Platelet mean volume (Bld) [Entitic vol] Platelet mean volume [Entitic volume] in Blood by Automated count 9.5-13.5 [facility] Platelets Auto (Bld) [#/Vol] on 12-12-2024 Platelets (Bld) [#/Vol] Platelets [#/volume] in Blood by Automated count 150-450 [facility] RBC Auto (Bld) [#/Vol]on RBC (Bld) [#/Vol] Erythrocytes [#/volu me] in Blood by Automated count 4.20-5.40 [facility] INR in Platelet poor plasma by Coagulation assayOrdered By: Michael Dunaway on 08-10-2024 INR Coag (PPP) [Relative time] 1.3 {INR} Normal [facility] Comment on above: INR Therapeutic Rang e [...] heart valves: 3 - 4.5 PERFORMED BY: [place] [address] PATHOLOGIST ELECTRIC POWER MACHINE OPERATOR HERMELINDO BLUM M.D. Performed By: #### P T #### [facility] [address] [place], [place] [id number] [facility] Prothrombin time (PT)Ordered By: Michael Dunaway on 08-10-2024 PT Coag (PPP) [Time] 15.1 s High 9.0-12.9 [facility] Comment on above: A hematocrit value g reater than 55% may lead to inaccurate results in coagulation testing. Patients having hematocrit values >55% require a special collection tube for coagulation studies. Please contact the laboratory at [phone] for redraw instructions. Result Comment: A he matocrit value greater than 55% may lead to inaccurate results in coagulation testing. Patients having hematocrit values >55% require a special collection tube for coagulation studies. Please contact the laboratory at [phone] for redraw instructions. Performed By: #### P T #### [facility] [address] [place], [place] [address] [facility] INR in Platelet poor plasma by Coagulation assayOrdered By: Michael Dunaway on 08-09-2024 INR Coag (PPP) [Relative time] 1.7 {INR} Normal [facility] Comment on above: INR Therapeutic Rang e [...] heart valves: 3 - 4.5 PERFORMED BY: [place] [address] PATHOLOGIST ELECTRIC POWER MACHINE OPERATOR HERMELINDO BLUM M.D. Performed By: #### P T #### [address] Prothrombin time (PT)Ordered By: Michael Dunaway on 08-09-2024 PT Coag (PPP) [Time] 19.0 s High 9.0-12.9 [facility] Comment on above: A hematocrit value g reater than 55% may lead to inaccurate results in coagulation testing. Patients having hematocrit values >55% require a special collection tube for coagulation studies. Please contact the laboratory at [phone] for redraw instructions. Result Comment: A he matocrit value greater than 55% may lead to inaccurate results in coagulation testing. Patients having hematocrit values >55% require a special collection tube for coagulation studies. Please contact the laboratory at [phone] for redraw instructions. Performed By: #### P T #### [address] MR lumbar spine wo conon MR lumbar spine wo con [facility] Main [place] [id number] MRI Report Signed Patient: Sandra Tavarez MR#: [id number] 7 : 1940 Acct:[id number] Age/Sex: 83 / F ADM Date: 06/15/24 Loc: MR Room: Type: [facility] Attending Dr: Michael Dunaway MD Copies [...] Tex Diaz M.D.06/15/2024 8:35 PM Dictation Location: [place] [address] Transcribed By: [facility] 06/15/242034 Dictated By: Tex Diaz II, MD 06/15/242025 Signed By: 06/15/242034 Normal [facility] INR in Platelet poor plasma by Coagulation assayon 05-16-2024 INR Coag (PPP) [Relative time] 1.36 {INR} [facility] Comment on above: DESIRED INR:2.0-3.0 CONDITIONS NOT LISTED BELOW2.5-3.5 FOR PROSTHETIC HEART VALVE REPLACEMENT2.5-3.5 RECURRENT THROMBOSIS Prothrombin time (PT)on 04-28 PT Coag (PPP) [Time] 14.0 s High 9.0-11.6 [facility] XR pelvis 1-2Von 05-09-2024 XR pelvis 1-2V [place] [address] XRay Report Signed Patient: Sandra Tavarez MR#: [id number] 7 : 1940 Acct:[id number] Age/Sex: 83 / F ADM Date: 05/07/24 Loc: XD Room: Type: PRE CLI Attending Dr: Michael Dunaway MD Copies to: Michael Dunaway MD Ordering Provider: Michael Dunaway MD Date of Service: 05/09/24 XR/XR pelvis 1-2V: M70.70 - Other bursitis of hip, unspecified hip ([id number]) XR/XR lumbar spine AP/LAT/FLX/EXT: M47.817 - Spondylosis without myelopathy or radiculopathy... ([id number]) XR/XR sacrum coccyx min 2V: M47.818 - [...] Orozco Jr., D.O.05/09/2024 3:59 PM Dictation Location: [place] [address] Transcribed By: [facility] 05/09/24 1559 Dictated By: Jaspreet Orozco Jr, DO 05/09/24 1556 Signed By: 05/09/24 1559 Normal [facility] INR in Platelet poor plasma by Coagulation assayOrdered By: Michael Dunaway on 05-07-2024 INR Coag (PPP) [Relative time] 2.0 {INR} Normal [facility] Comment on above: INR Therapeutic Rang e [...] heart valves: 3 - 4.5 PERFORMED BY: [place] [address] PATHOLOGIST ELECTRIC POWER MACHINE OPERATOR HERMELINDO BLUM M.D. Performed By: #### P T #### [address] Prothrombin time (PT)Ordered By: Michael Dunaway on 05-07-2024 PT Coag (PPP) [Time] 22.3 s High 9.0-12.9 [facility] Comment on above: A hematocrit value g reater than 55% may lead to inaccurate results in coagulation testing. Patients having hematocrit values >55% require a special collection tube for coagulation studies. Please contact the laboratory at [phone] for redraw instructions. Result Comment: A he matocrit value greater than 55% may lead to inaccurate results in coagulation testing. Patients having hematocrit values >55% require a special collection tube for coagulation studies. Please contact the laboratory at [phone] for redraw instructions. Performed By: #### P T #### [facility] [address] [place], [place] [address] [facility] Basophils Auto (Bld) [#/Vol] on 04-30-2024 Basophils (Bld) [#/Vol] 0.0 10 3/uL 0.0-0.1 [facility] Basophils/100 WBC Auto (Bld) on 04-30-2024 Basophils/100 WBC (Bld) 0.7 % 0.2-2.0 [facility] Cholesterol in LDL Calc [Mas s/Vol]on 04-30-2024 Cholesterol in LDL [Mass/Vol] 43.0 mg/dL [facility] Comment on above: <100 mg/dl [id number] 0-129 mg/dl NEAR OR ABOVE [id number] mg/dl BORDERLINE [id number] mg/dl HIGH>190 mg/dl VERY HIGH Cholesterol in VLDL Calc [Ma ss/Vol]on 04-30-2024 Cholesterol in VLDL [Mass/Vol] 10.6 mg/dL [facility] Eosinophils/100 WBC Auto (Bl d)on 04-30-2024 Eosinophils/100 WBC (Bld) 1.9 % 0.9-7.0 [facility] Erythrocyte distribution wid th Auto (RBC) [Ratio]on 04-30-2024 Erythrocyte distribution width (RBC) [Ratio] 13.6 % 11.0-15.0 [facility] Estimated glomerular filtrat ion rate (GFR) non- Americanon 04-30-2024 GFR/1.73 sq M.predicted among non-blacks MDRD (S/P/Bld) [Vol rate/Area] mL/min/{1.73_m2} >=60 [facility] Globulin Calc (S) [Mass/Vol] on 04-30-2024 Globulin (S) [Mass/Vol] 3.4 g/dL [facility] Glucose mean value [Mass/vol ume] in Blood Estimated from glycated hemoglobinon 04-30-2024 Average glucose Estimated from glycated hemoglobin (Bld) [Mass/Vol] 137 mg/dL [facility] Hematocrit Auto (Bld) [Volum e fraction]on 04-30-2024 Hematocrit (Bld) [Volume fraction] 39.8 % 36.0-48.0 [facility] Hemoglobin [Mass/volume] in Bloodon 04-30-2024 Hemoglobin (Bld) [Mass/Vol] 13.0 g/dL 12.0-16.0 [facility] Laboratory - Chemistry and C hemistry - challengeon 04-30-2024 Albumin [Mass/Vol] 3.5 g/dL 3.4-5.0 [facility] ALP [Catalytic activity/Vol] 89 U/L 46-116 [facility] ALT [Catalytic activity/Vol] 25 U/L 14-59 [facility] AST [Catalytic activity/Vol] 21 U/L 15-37 [facility] Bilirubin [Mass/Vol] 1.1 mg/dL High 0.2-1.0 [facility] Calcium [Mass/Vol] 9.3 mg/dL 8.5-10.1 [facility] Chloride [Moles/Vol] 105 mmol/L 98-107 [facility] Cholesterol [Mass/Vol] 123 mg/dL <=200 [facility] Cholesterol in HDL [Mass/Vol] 70 mg/dL High 40-60 [facility] Comment on above: > or =60 mg/dl - LOW CARDIOVASCULAR RISK<40 mg/dl - HIGH CARDIOVASCULAR RISK CO2 [Moles/Vol] 26.1 mmol/L 21.0-32.0 [facility] Creatinine [Mass/Vol] 0.71 mg/dL 0.55-1.02 [facility] GFR/1.73 sq M.predicted MDRD (S/P/Bld) [Vol rate/Area] mL/min/{1.73_m2} >=60 [facility] Glucose [Mass/Vol] 96 mg/dL 74-106 [facility] Potassium [Moles/Vol] 4.0 mmol/L 3.5-5.1 [facility] Protein [Mass/Vol] 6.9 g/dL 6.4-8.2 [facility] Sodium [Moles/Vol] 141 mmol/L 136-145 [facility] Triglyceride [Mass/Vol] 53 mg/dL <=150 [facility] TSH Qn 0.705 m[IU]/L 0.358-3.74 0 [facility] Urea nitrogen [Mass/Vol] 16.0 mg/dL 7.0-18.0 [facility] Urea nitrogen/Creatinin e [Mass ratio] 22.5 mg/mg [facility] Laboratory - Hematology and Cell countson 04-30-2024 HbA1c (Bld) [Mass fraction] 6.4 % High 4.5-6.2 [facility] Comment on above: ADA RECOMMENDED LIMI T 4.0 - 6.0ADA THERAPEUTIC TARGET < 7.0ACTION SUGGESTED> 7.0 Immature granulocytes/100 WBC (Bld) 0.4 % 0.0-0.5 [facility] Leukocytes [#/volume] correc torri for nucleated erythrocytes in Blood by Automated counon 04-30-2024 WBC corrected for nucl RBC Auto (Bld) [#/Vol] 5.3 10 3/uL 4.0-11.0 [facility] Lymphocytes Auto (Bld) [#/Vo l]on 04-30-2024 Lymphocytes (Bld) [#/Vol] 1.0 10 3/uL Low 1.2-3.8 [facility] Lymphocytes/100 WBC Auto (Bl d)on 04-30-2024 Lymphocytes/100 WBC (Bld) 17.8 % Low 20.5-60.0 [facility] MCH Auto (RBC) [Entitic mass ]on 04-30-2024 MCH (RBC) [Entitic mass] 30.1 pg 26.7-34.0 [facility] MCHC Auto (RBC) [Mass/Vol]on 04-30-2024 MCHC (RBC) [Mass/Vol] 32.7 g/dL 29.9-35.2 [facility] MCV Auto (RBC) [Entitic vol] on 04-30-2024 MCV (RBC) [Entitic vol] 92.1 fL 81.0-99.0 [facility] Monocytes Auto (Bld) [#/Vol] on 04-30-2024 Monocytes (Bld) [#/Vol] 0.6 10 3/uL 0.3-0.8 [facility] Monocytes/100 WBC Auto (Bld) on 04-30-2024 Monocytes/100 WBC (Bld) 10.3 % 1.7-12.0 [facility] Neutrophils Auto (Bld) [#/Vo l]on 04-30-2024 Neutrophils (Bld) [#/Vol] 3.7 10 3/uL 1.4-6.5 [facility] Neutrophils/100 WBC Auto (Bl d)on 04-30-2024 Neutrophils/100 WBC (Bld) 68.9 % 43.0-75.0 [facility] No Panel Informationon 04-30 Eosinophils # (Auto) 0.1 10 3/uL 0.0-0.7 [facility] Immature Granulocyte # (Auto) 0.02 10 3/uL 0.00-0.03 [facility] Platelet mean volume Auto (B ld) [Entitic vol]on 04-30-2024 Platelet mean volume (Bld) [Entitic vol] 10.5 fL 9.5-13.5 [facility] Platelets Auto (Bld) [#/Vol] on 04-30-2024 Platelets (Bld) [#/Vol] 188 10 3/uL 150-450 [facility] RBC Auto (Bld) [#/Vol]on RBC (Bld) [#/Vol] 4.32 10 6/uL 4.20-5.40 [facility] Serum or plasma albumin/glob ulin mass ratioon 04-30-2024 Albumin/Globulin [Mass ratio] 1.0 {ratio} [facility] Serum or plasma anion gap de terminationon 04-30-2024 Anion gap [Moles/Vol] 13.9 mmol/L [facility] Serum or plasma total choles terol/high density lipoprotein (HDL) cholesterol mass stephane 04-30-2024 Cholesterol.total/ Cholesterol in HDL [Mass ratio] 1.8 {ratio} [facility] Comment on above: 3.3 - 4.4 LOW RISK4. 4 - 7.1 AVERAGE RISK7.1 - 11.0 MODERATE RISK>11.0 HIGH RISK Bacteria identified Aer cx N om (Unsp spec)Ordered By: Juancarlos Campbell on 01-12-2024 Superficial Wound Culture Pseudomonas aeruginosa [facility] Superficial Wound Cultureon 01-12-2024 Superficial Wound [...] RESISTANT TO ALL B-LACTAM DRUGS. PERFORMED BY: [place] [address] PATHOLOGIST ELECTRIC POWER MACHINE OPERATOR HERMELINDO BLUM M.D. Normal [facility] Comment on above: Performed By: #### C USUP #### [address] MG MAMM SCREEN 3D KRISTOFER CADon 04-07-2023 MG MAMM SCREEN 3D KRISTOFER CAD Patient: SANDRA TAVAREZ Exam Date: 04/07/2023 : 1940 Gender:F Ordering : DR ROBERT VAIL D.O. Admission #: [id number] Family : Order #: [id number] CLICK HERE TO VIEW EXAM RADIOLOGY REPORT [...] leukemia cancer at age 43. LOCATION: [facility] BREAST COMPOSITION: Scattered areas fibroglandular density. FINDINGS: [...] M.D. on 04/07/2023 at 14:36 Normal [facility] CBC AUTO DIFFon 03-14-2023 BASO # 0.1 103/ul Normal 0.0-0.1 [facility] Comment on above: Performed By: #### C BC ####[facility] [address] [place] [id number]. Gaurav Heriberto Basophils/100 WBC (Bld) 0.9 % Normal 0.2-2.0 [facility] Comment on above: Performed By: #### C BC ####[facility] [address] [place] [id number]. Gaurav Louis EO # 0.1 103/ul Normal 0.0-0.7 [facility] Comment on above: Performed By: #### C BC ####[facility] [address] [place] [id number]. Gaurav Louis Eosinophils/100 WBC (Bld) 1.2 % Normal 0.9-7.0 [facility] Comment on above: Performed By: #### C BC ####[facility] [address] [place] [id number]. Gaurav Louis Erythrocyte distribution width (RBC) [Ratio] 13.2 % Normal 11.0-15.0 [facility] Comment on above: Performed By: #### C BC ####[facility] [address] [place] [id number]. Gaurav Louis Hematocrit (Bld) [Volume fraction] 44.1 % Normal 36.0-48.0 [facility] Comment on above: Performed By: #### C BC ####[facility] [address] [place] [id number]. Gaurav Heriberto Hemoglobin (Bld) [Mass/Vol] 14.7 g/dL Normal 12.0-16.0 [facility] Comment on above: Performed By: #### C BC ####[facility] [address] [place] [id number]. Gaurav Louis IG # 0.02 10e3/ul Normal 0.00-0.03 [facility] Comment on above: Performed By: #### C BC ####[facility] [address] [place] [id number]. Gaurav Louis IG % 0.4 % Normal 0.0-0.5 [facility] Comment on above: Performed By: #### C BC ####[facility] [address] [place] [address]Dr. Gaurav Louis LYMPH # 0.9 103/ul Critically low 1.2-3.8 [facility] Comment on above: Performed By: #### C BC ####[facility] [address] [place] [address]Dr. Gaurav Louis Lymphocytes/100 WBC (Bld) 16.5 % Critically low 20.5-60.0 [facility] Comment on above: Performed By: #### C BC ####[facility] [address] [place] [address]Dr. Gaurav Louis MANUAL DIFF REQ NO Normal [facility] Comment on above: Performed By: #### C BC ####[facility] [address] [place] [address]Dr. Gaurav Louis MCH (RBC) [Entitic mass] 30.7 pg Normal 26.7-34.0 [facility] Comment on above: Performed By: #### C BC ####[facility] [address] [place] [address]Dr. Gaurav Louis MCHC (RBC) [Mass/Vol] 33.3 g/dL Normal 29.9-35.2 [facility] Comment on above: Performed By: #### C BC ####[facility] [address] [place] [address]Dr. Gaurav Louis MCV (RBC) [Entitic vol] 92.1 fL Normal 81.0-99.0 [facility] Comment on above: Performed By: #### C BC ####[facility] [address] [place] [id number]. Gaurav Louis MONO # 0.5 103/ul Normal 0.3-0.8 [facility] Comment on above: Performed By: #### C BC ####[facility] [address] [place] [id number]. Gaurav Louis Monocytes/100 WBC (Bld) 8.0 % Normal 1.7-12.0 [facility] Comment on above: Performed By: #### C BC ####[facility] [address] [place] [id number]. Gaurav Louis NEUT # 4.1 103/ul Normal 1.4-6.5 [facility] Comment on above: Performed By: #### C BC ####[facility] [address] [place] [address]Dr. Gaurav Louis Neutrophils/100 WBC (Bld) 73.0 % Normal 43.0-75.0 [facility] Comment on above: Performed By: #### C BC ####[facility] [address] [place] [id number]. Gaurav Louis Platelet mean volume (Bld) [Entitic vol] 10.0 fL Normal 9.5-13.5 [facility] Comment on above: Performed By: #### C BC ####[facility] [address] [place] [id number]. Gaurav Louis PLT 184 103/ul Normal 150-450 [facility] Comment on above: Performed By: #### C BC ####[facility] [address] [place] [id number]. Gaurav Louis RBC 4.79 106/ul Normal 4.20-5.40 [facility] Comment on above: Performed By: #### C BC ####[facility] [address] [place] [address]Dr. Gaurav Louis WBC 5.6 103/ul Normal 4.0-11.0 [facility] Comment on above: Performed By: #### C BC ####[facility] [address] [place], [place] [id number]. Gaurav Louis GLYCOHEMOGLOBIN A1Con 2022 ADA RECOMMENDATION SEE BELOW Normal [facility] Comment on above: Result Comment: ADA RECOMMENDED LIMIT 4.0 - 6.0 ADA THERAPEUTIC TARGET < 7.0 ACTION SUGGESTED > 7.0 Performed By: #### A 1C #### [facility] [address] [place] [address] Dr. Gaurav Louis Glucose [Mass/Vol] 148 mg/dL Normal [facility] Comment on above: Performed By: #### A 1C #### [facility] [address] [place] [address] Dr. Gaurav Louis HbA1c (Bld) [Mass fraction] 6.8 % Critically high 4.5-6.2 [facility] Comment on above: Performed By: #### A 1C #### [facility] [address] [place] [address] Dr. Gaurav Louis LIPID PROFILEon 03-14-2023 CHOL-HDL RATIO NORM SEE BELOW Normal [facility] Comment on above: Result Comment: 3.3 - 4.4 LOW RISK 4.4 - 7.1 AVERAGE RISK 7.1 - 11.0 MODERATE RISK >11.0 HIGH RISK Performed By: #### T TANIKA, LIPID, BMP #### [facility] [address] [place] [address] Dr. Gaurav Louis Cholesterol [Mass/Vol] 137 mg/dL Normal <=200 [facility] Comment on above: Performed By: #### T TANIKA, LIPID, BMP #### [facility] [address] [place] [address] Dr. Gaurav Louis Cholesterol in HDL [Mass/Vol] 63 mg/dL Critically high 40-60 [facility] Comment on above: Performed By: #### T TANIKA, LIPID, BMP #### [facility] [address] [place] [address] Dr. Gaurav Louis Cholesterol in LDL [Mass/Vol] 57.8 mg/dL Normal [facility] Comment on above: Performed By: #### T TANIKA, LIPID, BMP #### [facility] [address] [place] [address] Dr. Gaurav Louis Cholesterol.total/ Cholesterol in HDL [Mass ratio] 2.2 {ratio} Normal [facility] Comment on above: Performed By: #### T SH, LIPID, BMP #### [facility] [address] [place] [address] [address] Gaurav Louis HDL NORMAL > or = 60 mg/dl - LO W CARDIOVASCULAR RISK <40 mg/dl - HIGH CARDIOVASCULAR RISK Normal [facility] Comment on above: Performed By: #### T SH, LIPID, BMP #### [facility] [address] [place] [address] Dr. Gaurav Louis LDL CALC NORMAL SEE BELOW Normal [facility] Comment on above: Result Comment: <100 mg/dl OPTIMAL 100 - 129 mg/dl NEAR OR ABOVE OPTIMAL 130 - 159 mg/dl BORDERLINE HIGH 160 - 189 mg/dl HIGH >190 mg/dl VERY HIGH Performed By: #### T TANIKA, LIPID, BMP #### [facility] [address] [place] [address] Dr. Gaurav Louis Triglyceride [Mass/Vol] 81 mg/dL Normal <=150 [facility] Comment on above: Performed By: #### T TANIKA, LIPID, BMP #### [facility] [address] [place] [address] Dr. Gaurav Louis VLDL CALC 16.2 mg/dL Normal [facility] Comment on above: Performed By: #### T TANIKA, LIPID, BMP #### [facility] [address] [place] [address] Dr. Gaurav Louis MICROALBUMIN, RAND URon 04- mALB 2.8 mg/L Normal <=30.0 [facility] Comment on above: Performed By: #### M ALBR #### [facility] [address] [place] [address] Dr. Gaurav Louis PROF CHEM 8 (BAS METB)on Anion gap [Moles/Vol] 13.4 mmol/L Normal [facility] Comment on above: Performed By: #### T TANIKA, LIPID, BMP #### [facility] [address] [place] [address] Dr. Gaurav Louis Calcium [Mass/Vol] 9.7 mg/dL Normal 8.5-10.1 [facility] Comment on above: Performed By: #### T TANIKA, LIPID, BMP #### [facility] [address] [place] [address] [address] Gaurav Louis Chloride [Moles/Vol] 103 mmol/L Normal 98-107 [facility] Comment on above: Performed By: #### T TANIKA, LIPID, BMP #### [facility] [address] [place] [address] [address] Gaurav Louis CO2 [Moles/Vol] 28.2 mmol/L Normal 21.0-32.0 [facility] Comment on above: Performed By: #### T TANIKA LIPID, BMP #### [facility] [address] [place] [address] Dr. Gaurav Louis Creatinine [Mass/Vol] 0.94 mg/dL Normal 0.55-1.02 [facility] Comment on above: Performed By: #### T TANIKA, LIPID, BMP #### [facility] [address] [place] [address] Dr. Gaurav Louis EGFR-AF GREENLANDIC >60 Normal >=60 [facility] Comment on above: Performed By: #### T TANIKA LIPID, BMP #### [facility] [address] [place] [address] Dr. Gaurav Louis EGFR-NON AF GREENLANDIC 57 mL/min/1.73m2 Critically low >=60 [facility] Comment on above: Performed By: #### T TANIKA, LIPID, BMP #### [facility] [address] [place] [address] Dr. Gaurav Louis Glucose [Mass/Vol] 155 mg/dL Critically high 74-106 [facility] Comment on above: Performed By: #### T TANIKA, LIPID, BMP #### [facility] [address] [place] [address] Dr. Gaurav Louis Potassium [Moles/Vol] 3.6 mmol/L Normal 3.5-5.1 [facility] Comment on above: Performed By: #### T TANIAK, LIPID, BMP #### [facility] [address] [place] [address] [address] Gaurav Louis Sodium [Moles/Vol] 141 mmol/L Normal 136-145 [facility] Comment on above: Performed By: #### T TANIKA, LIPID, BMP #### [facility] [address] [place] [address] [address] Gaurav Louis Urea nitrogen [Mass/Vol] 19.0 mg/dL Critically high 7.0-18.0 [facility] Comment on above: Performed By: #### T TANIKA, LIPID, BMP #### [facility] [address] [place] [address] [address] Gaurav Louis Urea nitrogen/Creatinin e [Mass ratio] 20.2 mg/mg Normal [facility] Comment on above: Performed By: #### T TANIKA, LIPID, BMP #### [facility] [address] [place] [address] Dr. Gaurav Louis TSHon 03-14-2023 TSH 0.784 uIU/mL Normal 0.358-3.74 0 [facility] Comment on above: Performed By: #### T TANIKA, LIPID, BMP #### [facility] [address] [place] [address] [address] Gaurav Louis SARS-CoV-2 (COVID-19) RNA NA A+probe Ql (Resp)on 09-11-2022 SARS-CoV-2 (COVID-19) RNA LANDEN+probe Ql (Unsp spec) Positive [facility] Other CBC AUTO DIFFon 07-06-2022 BASO # 0.1 103/ul Normal 0.0-0.1 [facility] Comment on above: Performed By: #### C BC #### [facility] [address] [place] [address] Dr. Gaurav Louis Basophils/100 WBC (Bld) 0.5 % Normal 0.2-2.0 [facility] Comment on above: Performed By: #### C BC #### [facility] [address] [place] [address] Dr. Gaurav Louis EO # 0.1 103/ul Normal 0.0-0.7 [facility] Comment on above: Performed By: #### C BC #### [facility] [address] [place] [address] Dr. Gaurav Louis Eosinophils/100 WBC (Bld) 0.7 % Critically low 0.9-7.0 [facility] Comment on above: Performed By: #### C BC #### [facility] [address] [place] [address] Dr. Gaurav Louis Erythrocyte distribution width (RBC) [Ratio] 22.5 % Critically high 11.0-15.0 [facility] Comment on above: Result Comment: 2+ a nisocytosis Performed By: #### C BC #### [facility] [address] [place] [address] Dr. Gaurav Louis Hematocrit (Bld) [Volume fraction] 41.4 % Normal 36.0-48.0 [facility] Comment on above: Performed By: #### C BC #### [facility] [address] [place] [address] Dr. Gaurav Louis Hemoglobin (Bld) [Mass/Vol] 13.4 g/dL Normal 12.0-16.0 [facility] Comment on above: Performed By: #### C BC #### [facility] [address] [place] [address] Dr. Gaurav Louis IG # 0.04 10e3/ul Critically high 0.00-0.03 [facility] Comment on above: Performed By: #### C BC #### [facility] [address] [place] [address] Dr. Gaurav Louis IG % 0.4 % Normal 0.0-0.5 [facility] Comment on above: Performed By: #### C BC #### [facility] [address] [place] [address] Dr. Gaurav Louis LYMPH # 1.1 103/ul Critically low 1.2-3.8 [facility] Comment on above: Performed By: #### C BC #### [facility] [address] [place] [address] Dr. Gaurav Louis Lymphocytes/100 WBC (Bld) 10.2 % Critically low 20.5-60.0 [facility] Comment on above: Performed By: #### C BC #### [facility] [address] [place] [address] Dr. Gaurav Louis MANUAL DIFF REQ NO Normal [facility] Comment on above: Performed By: #### C BC #### [facility] [address] [place] [address] Dr. Gaurav Louis MCH (RBC) [Entitic mass] 28.3 pg Normal 26.7-34.0 [facility] Comment on above: Performed By: #### C BC #### [facility] [address] [place] [address] Dr. Gaurav Louis MCHC (RBC) [Mass/Vol] 32.4 g/dL Normal 29.9-35.2 [facility] Comment on above: Performed By: #### C BC #### [facility] [address] [place] [address] Dr. Gaurav Louis MCV (RBC) [Entitic vol] 87.5 fL Normal 81.0-99.0 [facility] Comment on above: Performed By: #### C BC #### [facility] [address] [place] [address] Dr. Gaurav Louis MONO # 0.8 103/ul Normal 0.3-0.8 [facility] Comment on above: Performed By: #### C BC #### [facility] [address] [place] [address] Dr. Gaurav Louis Monocytes/100 WBC (Bld) 7.3 % Normal 1.7-12.0 [facility] Comment on above: Performed By: #### C BC #### [facility] [address] [place] [address] Dr. Gaurav Louis NEUT # 8.4 103/ul Critically high 1.4-6.5 [facility] Comment on above: Performed By: #### C BC #### [facility] [address] [place] [address] Dr. Gaurav Louis Neutrophils/100 WBC (Bld) 80.9 % Critically high 43.0-75.0 [facility] Comment on above: Performed By: #### C BC #### [facility] [address] [address] [address] Gaurav Louis Platelet mean volume (Bld) [Entitic vol] 10.0 fL Normal 9.5-13.5 [facility] Comment on above: Performed By: #### C BC #### [facility] [address] [address] [address] Gaurav Louis PLT 178 103/ul Normal 150-450 [facility] Comment on above: Performed By: #### C BC #### [facility] [address] [address] [address] Gaurav Louis RBC 4.73 106/ul Normal 4.20-5.40 [facility] Comment on above: Performed By: #### C BC #### [facility] [address] [address] [address] Gaurav Louis WBC 10.3 103/ul Normal 4.0-11.0 [facility] Comment on above: Performed By: #### C BC #### [facility] [address] [place] [address] Dr. Gaurav Louis US SINGLE QUAD LT [...] NIDA ALVAREZ Date: 2022-04-30 18:10 Normal [facility] CBC AUTO DIFFon 04-13-2022 BASO # 0.0 103/ul Normal 0.0-0.1 [facility] Comment on above: Performed By: #### C BC #### [facility] [address] [address] [address] Gaurav Louis Basophils/100 WBC (Bld) 0.6 % Normal 0.2-2.0 [facility] Comment on above: Performed By: #### C BC #### [facility] [address] [place] [address] Dr. Gaurav Louis EO # 0.1 103/ul Normal 0.0-0.7 [facility] Comment on above: Performed By: #### C BC #### [facility] [address] [place] [address] Dr. Gaurav Louis Eosinophils/100 WBC (Bld) 1.7 % Normal 0.9-7.0 [facility] Comment on above: Performed By: #### C BC #### [facility] [address] [place] [address] Dr. Gaurav Louis Erythrocyte distribution width (RBC) [Ratio] 21.1 % Critically high 11.0-15.0 [facility] Comment on above: Performed By: #### C BC #### [facility] [address] [place] [address] Dr. Gaurav Louis Hematocrit (Bld) [Volume fraction] 33.6 % Critically low 36.0-48.0 [facility] Comment on above: Performed By: #### C BC #### [facility] [address] [place] [address] Dr. Gaurav Louis Hemoglobin (Bld) [Mass/Vol] 10.0 g/dL Critically low 12.0-16.0 [facility] Comment on above: Performed By: #### C BC #### [facility] [address] [place] [address] Dr. Gaurav Louis IG # 0.02 10e3/ul Normal 0.00-0.03 [facility] Comment on above: Performed By: #### C BC #### [facility] [address] [place] [address] Dr. Gaurav Louis IG % 0.4 % Normal 0.0-0.5 [facility] Comment on above: Performed By: #### C BC #### [facility] [address] [place] [address] Dr. Gaurav Louis LYMPH # 1.0 103/ul Critically low 1.2-3.8 [facility] Comment on above: Performed By: #### C BC #### [facility] [address] [place] [address] Dr. Gaurav Louis Lymphocytes/100 WBC (Bld) 18.3 % Critically low 20.5-60.0 [facility] Comment on above: Performed By: #### C BC #### [facility] [address] [place] [address] Dr. Gaurav Louis MANUAL DIFF REQ NO Normal [facility] Comment on above: Performed By: #### C BC #### [facility] [address] [place] [address] Dr. Gaurav Louis MCH (RBC) [Entitic mass] 22.8 pg Critically low 26.7-34.0 [facility] Comment on above: Performed By: #### C BC #### [facility] [address] [place] [address] Dr. Gaurav Louis MCHC (RBC) [Mass/Vol] 29.8 g/dL Critically low 29.9-35.2 [facility] Comment on above: Performed By: #### C BC #### [facility] [address] [place] [address] Dr. Gaurav Louis MCV (RBC) [Entitic vol] 76.7 fL Critically low 81.0-99.0 [facility] Comment on above: Performed By: #### C BC #### [facility] [address] [place] [address] Dr. Gaurav Louis MONO # 0.5 103/ul Normal 0.3-0.8 [facility] Comment on above: Performed By: #### C BC #### [facility] [address] [place] [address] Dr. Gaurav Louis Monocytes/100 WBC (Bld) 8.8 % Normal 1.7-12.0 [facility] Comment on above: Performed By: #### C BC #### [facility] [address] [place] [address] Dr. Gaurav Louis NEUT # 3.8 103/ul Normal 1.4-6.5 [facility] Comment on above: Performed By: #### C BC #### [facility] [address] [place], [place] [address] Dr. Gaurav Louis Neutrophils/100 WBC (Bld) 70.2 % Normal 43.0-75.0 [facility] Comment on above: Performed By: #### C BC #### [facility] [address] [address] [address] Gaurav Louis Platelet mean volume (Bld) [Entitic vol] 9.4 fL Critically low 9.5-13.5 [facility] Comment on above: Performed By: #### C BC #### [facility] [address] [address] [address] Gaurav Louis PLT 226 103/ul Normal 150-450 [facility] Comment on above: Performed By: #### C BC #### [facility] [address] [address] [address] Gaurav Louis RBC 4.38 106/ul Normal 4.20-5.40 [facility] Comment on above: Performed By: #### C BC #### [facility] [address] [address] [address] Gaurav Louis WBC 5.4 103/ul Normal 4.0-11.0 [facility] Comment on above: Performed By: #### C BC #### [facility] [address] [address] [address] Gaurav Louis XR ankle LT min 3V*on 2020 XR ankle LT min 3V* [facility] [employer]) Other XR ankle LT min 3V* [facility] Other XR ankle LT min 3V* [address] [place] [address] [employer] Other XR ankle LT min 3V* [place] [place] [address] [employer] Other XR ankle LT min 3V* XRay Report [employer] Other XR ankle LT min 3V* Signed [employer] Other XR ankle LT min 3V* Patient: Sandra Tavarez MR#: [id number] [facility] Other XR ankle LT min 3V* 7 [employer] Other XR ankle LT min 3V* : 1940 Acct:[id number] [employer] Other XR ankle LT min 3V* Age/Sex: 80 / F ADM Date: 11/07/21 [employer] Other XR ankle LT min 3V* Loc: XDUCLY Room: Type: [facility] [employer] Other XR ankle LT min 3V* Attending Dr: Quita ZUNIGA [facility] Other XR ankle LT min 3V* Ordering Provider: NADIA Winslow [facility] Other XR ankle LT min 3V* Date of Service: 11/07/21 [facility] Other XR ankle LT min 3V* XR/XR ankle LT min 3V*: Acute left ankle pain [employer] Other XR ankle LT min 3V* Copies to: NADIA Winslow [employer] Other XR ankle LT min 3V* XR ankle LT min 3V* 11/07/2021 12:15 PM [facility] Other XR ankle LT min 3V* SIGNS AND SYMPTOMS: Pain along the left Achilles and lateral aspect of the calcaneus, limited range [facility] Other XR ankle LT min 3V* of motion [facility] Other XR ankle LT min 3V* PROTOCOL: Frontal, lateral, and oblique radiographs of the left ankle [facility] Other XR ankle LT min 3V* COMPARISON: None [facility] Other XR ankle LT min 3V* FINDINGS: [facility] Other XR ankle LT min 3V* The ankle mortise is preserved. There is cortical irregularity along the inferior margin of the [employer] Other XR ankle LT min 3V* lateral malleolus which may represent sequelae of a previous avulsive-type injury. There is soft [facility] Other XR ankle LT min 3V* tissue swelling diffusely but greatest along the dorsal soft tissues. There is plantar surface [employer] Other XR ankle LT min 3V* calcaneal spurring. Vascular calcifications are present. Degenerative changes are noted in the [employer] Other XR ankle LT min 3V* midfoot. [facility] Other XR ankle LT min 3V* XR/XR ankle LT min 3V* [employer] Other XR ankle LT min 3V* IMPRESSION: [facility] Other XR ankle LT min 3V* No acute displaced fracture. Nor BULX Other XR ankle LT min 3V* Diffuse soft tissue swelling greatest posteriorly. [facility] Other XR ankle LT min 3V* There is plantar surface calcaneal spurring. [facility] Other XR ankle LT min 3V* Impression dictated by: Tex Diaz M.D.11/07/2021 12:50 PM [facility] Other XR ankle LT min 3V* Dictation Location: [place] [address] [facility] Other XR ankle LT min 3V* Transcribed By: SHAHIDA 11/07/21 1250 [facility] Other XR ankle LT min 3V* Dictated By: Tex Diaz II, MD 11/07/21 1248 [facility] Other XR ankle LT min 3V* Signed By: [facility] Other XR ankle LT min 3V* 11/07/21 1250 [facility] Other [facility] Preoperative Recordon 0 06-04-2020 [facility] Preoperative Record [facility] Pre-Op Record Summary Primary Physician: FERNANDO SILVA Finalized Date/Time: 06/04/20 08:46:37 Pt. Name: SANDRA TAVAREZ /Sex: 1940 FEMALE Med Rec #: [id number] Physician: FERNANDO SILVA Financial #: [id number] Pt. Type: I Room/Bed: [facility] Admit/Disch: 05/23/20 09:44:18 - 05/27/20 15:15:00 [...] Signed By: Stacy Pena RN 06/04/20 08:46 [facility] Consent Formson 05-28-2020 Consent Forms [id number]#1.00OTGTIFF [facility] Outside Recordson 05-28-2020 Outside Records [id number] [id number][facility] Provider Orderson 05-28-2020 Provider Orders [id number][facility] Tele[facility]pson 0 Telemetry Strips [id number][facility] .Auto Diff 105-27-2020 Auto Pepin % 13 % High 12-09 [facility] Comment on above: Performed By: #### 1 [id number], [id number], [id number] #### [facility] (DEFAULT) [address] [place] [address] Baso Abs# 0.0 x10 Normal 0.0-0.2 [facility] Comment on above: Performed By: #### 1 [id number], [id number], [id number] #### [facility] (DEFAULT) [address] [place] [address] 07305 Basophils/100 WBC (Bld) 0.3 % Normal 0.2-2.0 [facility] Comment on above: Performed By: #### 1 [id number], [id number], [id number] #### [facility] (DEFAULT) [address] [place] [address] 98972 Eos Abs# 0.1 x10 Normal 0.0-0.4 [facility] Comment on above: Performed By: #### 1 [id number], [id number], 9754039 #### [facility] (DEFAULT) [address] [place] [address] 90460 Eosinophils/100 WBC (Bld) 1.4 % Normal 0.9-4.0 [facility] Comment on above: Performed By: #### 1 [id number], [id number], [id number] #### [facility] (DEFAULT) [address] [place] [address] 04818 Lymphocytes (Bld) [#/Vol] 1.4 x10 Normal 1.3-2.9 [facility] Comment on above: Performed By: #### 1 [id number], [id number], [id number] #### [facility] (DEFAULT) [address] [place] [address] Lymphocytes/100 WBC (Bld) 16 % Normal 14-48 [facility] Comment on above: Performed By: #### 1 [id number], [id number], [id number] #### [facility] (DEFAULT) [address] [place] [address] Pepin Abs# 1.1 x10 High 0.0-0.8 [facility] Comment on above: Performed By: #### 1 [id number], [id number], [id number] #### [facility] (DEFAULT) [address] [place] [address] Neut Abs# 6.1 x10 Normal 1.5-9.2 [facility] Comment on above: Performed By: #### 1 [id number], [id number], 1552561 #### [facility] (DEFAULT) [address] [place] [address] Neutrophils/100 WBC (Bld) 70 % Normal 44-88 [facility] Comment on above: Performed By: #### 1 [id number], [id number], [id number] #### [facility] (DEFAULT) [address] [place] [address] Standardon 05-27-2020 eGFR Non AA >60 [facility] Comment on above: Performed By: #### 1 [id number], [id number], [id number] #### [facility] (DEFAULT) [address] [place] [address] eGFR AA >60 [facility] Comment on above: Result Comment: Hydro Technician ghazal Kidney disease could be indicated at eGFRs of less than 60 ml/min/1.73m2. Kidney Failure is indicated at less than 15 ml/min/1.73m2 Performed By: #### 1 [id number], [id number], [id number] #### [facility] (DEFAULT) [address] [place] [address] 05622 Anion gap [Moles/Vol] 15.0 mmol/L Normal 5.0-19.0 [facility] Comment on above: Performed By: #### 1 [id number], [id number], [id number] #### [facility] (DEFAULT) [address] [place] [address] 59216 Calcium [Mass/Vol] 9.2 mg/dL Normal 8.9-10.3 [facility] Comment on above: Performed By: #### 1 [id number], [id number], [id number] #### [facility] (DEFAULT) [address] [place] [address] 64201 Chloride [Moles/Vol] 101 mmol/L Normal 101-111 [facility] Comment on above: Performed By: #### 1 [id number], [id number], [id number] #### [facility] (DEFAULT) [address] [place] [address] 92143 CO2 [Moles/Vol] 26 mmol/L Normal 21-32 [facility] Comment on above: Performed By: #### 1 [id number], [id number], 7239762 #### [facility] (DEFAULT) [address] [place] [address] 80582 Creatinine [Mass/Vol] 0.58 mg/dL Low 0.60-1.30 [facility] Comment on above: Performed By: #### 1 [id number], [id number], 8026111 #### [facility] (DEFAULT) [address] [place] [address] 23980 Glucose [Mass/Vol] 120.0 mg/dL High 74.0-118.0 [facility] Comment on above: Performed By: #### 1 [id number], [id number], 7998359 #### [facility] (DEFAULT) [address] [place] [address] 23296 Osmolality [Osmolality] 279 mOsm/L [facility] Comment on above: Performed By: #### 1 [id number], [id number], 2908893 #### [facility] (DEFAULT) [address] [place] [address] 03808 Potassium [Moles/Vol] 3.7 mmol/L Normal 3.6-5.1 [facility] Comment on above: Performed By: #### 1 [id number], 68206306, 8938486 #### [facility] (DEFAULT) [address] [place] [address] 45715 Sodium [Moles/Vol] 138.0 mmol/L Normal 136.0-144 . 0 [facility] Comment on above: Performed By: #### 1 [id number], 90485174, 2309422 #### [facility] (DEFAULT) [address] [place] [address] 10305 Urea nitrogen [Mass/Vol] 19 mg/dL Normal 8-26 [facility] Comment on above: Performed By: #### 1 [id number], 58864879, 2985761 #### [facility] (DEFAULT) [address] [place] [address] Urea nitrogen/Creatinin e [Mass ratio] 33.0 mg/mg High 4.6-16.2 [facility] Comment on above: Performed By: #### 1 [id number], [id number], 4251605 #### [facility] (DEFAULT) [address] [place], [place] [address] CBC w/ Auto Diffon 0 Erythrocyte distribution width (RBC) [Ratio] 18.4 % High 11.5-15.0 [facility] Comment on above: Performed By: #### 1 [id number], 77248339, 7234785 #### [facility] (DEFAULT) [address] [place] [address] 08401 Hematocrit (Bld) [Volume fraction] 29.7 % Low 33.7-40.4 [facility] Comment on above: Performed By: #### 1 [id number], [id number], 8624834 #### [facility] (DEFAULT) [address] [place] [address] Hemoglobin (Bld) [Mass/Vol] 9.0 g/dL Low 11.3-15.9 [facility] Comment on above: Performed By: #### 1 [id number], 93282331, 5873796 #### [facility] (DEFAULT) [address] [place] [address] 90237 Man Diff? Auto Normal [facility] Comment on above: Performed By: #### 1 [id number], 64505486, 8272694 #### [facility] (DEFAULT) [address] [place] [address] 04147 MCH (RBC) [Entitic mass] 25 pg Normal 24-34 [facility] Comment on above: Performed By: #### 1 [id number], 88039071, 3730444 #### [facility] (DEFAULT) [address] [place] [address] 51958 MCHC (RBC) [Mass/Vol] 30 g/dL Normal 26-37 [facility] Comment on above: Performed By: #### 1 [id number], [id number], 7753139 #### [facility] (DEFAULT) [address] [place] [address] 85714 MCV (RBC) [Entitic vol] 82 fL Normal 81-100 [facility] Comment on above: Performed By: #### 1 [id number], 55028772, 2174123 #### [facility] (DEFAULT) [address] [place] [address] 24516 Platelet mean volume (Bld) [Entitic vol] 10.7 fL High 6.3-10.2 [facility] Comment on above: Performed By: #### 1 [id number], 97711972, 5650251 #### [facility] (DEFAULT) [address] [place] [address] 09660 Platelets (Bld) [#/Vol] 230 x10 Normal 138-427 [facility] Comment on above: Performed By: #### 1 [id number], 97377965, 3488576 #### [facility] (DEFAULT) [address] [place] [address] 75241 RBC (Bld) [#/Vol] 3.60 x10 Low 3.70-5.30 [facility] Comment on above: Performed By: #### 1 [id number], 37027138, 2374526 #### [facility] (DEFAULT) [address] [place] [address] WBC (Bld) [#/Vol] 8.8 x10 [facility] Comment on above: Performed By: #### 1 [id number], [id number], 6207739 #### [facility] (DEFAULT) [address] [place] [address] Coding Summaryon 05-27-2020 Coding Summary CODING DATE: 020 FINAL [facility] STATUS: Transfer to [facility] PAYOR: Medicare Grouper: 470 MS-DRG [employer] HIP [employer] KNEE JOINT REPLACEMENT OR REATTACHMENT OF LOWER EXTREMITY W/O [facility] Low Trim 0 High Trim 999 ADMIT [...] other venous thrombosis and embolism Z79.01 1 FDC (current) use of anticoagulants G47.33 Y Obstructive sleep apnea (adult) (pediatric) Z99.89 1 Dependence on other enabling machines and devices G40.909 Y Epilepsy, unspecified, not intractable, without status epilepticus Z79.899 1 Other prison (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 therapy E66.01 Y Morbid (severe) obesity due to excess calories PROCEDURES DOCTOR NAME DATE [id number] Replacement of Left Knee Joint SUBHASH FERNANDO 05/23/2020 with Oxidized Zirconium on Polyethylene Synthetic Substitute, Cemented, Open Approach 37571K1 Transfusion of Nonautologous 05/25/2020 Red Blood Cells into Peripheral Vein, Percutaneous Approach NOTE: The code number assigned matches the documented diagnosis and / or procedure in the patient's chart. However, the narrative phrase printed from the coding software may appear abbreviated, or result in slightly different terminology. Revised Coded By: Jeane Mccormick Revised Date Saved: 05/27/2020 06:30 pm Normal [facility] Education Noteon 05-27-2020 Education Note [...] in office with physician assistant professor of mathematics Octavio Centeno as scheduled #9 NOMS 360 [...] the nearest hospital's emergency services department. Normal [facility] Inpatient Patient Summaryon 05-27-2020 Inpatient Patient Summary [place] [id number] Patient Discharge Instructions Name: SANDRA TAVAREZ : 1940 Patient Address: [address] [address] Primary Care Provider: Name: Robert aVil After you are discharged if you find you have any questions, please, call [phone] ext [phone] to speak to a nurse. Discharge Diagnosis: Acute pain of left knee Prescription Information: If you have been given a prescription for narcotics, seek immediate medical attention if you have any difficulty breathing or any sudden status changes such as confusion and sleepiness. If you or anyone you know is experiencing suicidal thoughts, mental health, alcohol and/or drug addiction problems; contact the [facility] 20/06 Crisis Hotline -Text 4HNET to 917851. If you received any narcotics, sedation, or [...] business decisions or sign any legal documents [facility] would like to thank you for allowing us to assist you with your healthcare needs. The following includes patient education materials and information regarding your injury/illness. SANDRA TAVAREZ has been given the following list of follow-up instructions, prescriptions, and patient education materials: Follow-up Instructions With: Address: When: Robert Vail [address] [place] [address] Business (1) With: Address: When: Tom Centeno [address] [place] [address], [facility] [[email or web address] [address] [address] [facility] (1) 06/06/2020 1:00 PM Medications [...] in office with physician assistant professor of mathematics Octavio Centeno as scheduled #9 NOMS 360 [...] Disease Control and Prevention July 2014 Normal [facility] POCT Glucose Levelon 020 Glucose [Mass/Vol] 125 mg/dL High 74-118 [facility] Comment on above: Performed By: #### 4 [id number] ####[facility] (DEFAULT)[address] [place] [address] 27399 PTon 05-27-2020 INR Coag (PPP) [Relative time] 2.29 {INR} High 0.91-1.11 [facility] Comment on above: Performed By: #### 1 [id number], [id number], [id number] #### [facility] (DEFAULT) [address] [place] [address] [id number] PT Coag (PPP) [Time] 22.2 second(s) High 9.7-11.8 [facility] Comment on above: Performed By: #### 1 [id number], [id number], [id number] #### [facility] (DEFAULT) [address] [place] [address] [id number] Progress Note - Nurseon 04-30 Progress Note - Nurse Dressing change per Dr Moon. TORRI hose applied to both lower legs. Daughter here for transfer to the [facility]. Discharged to snf per private vehicle with daughter. PT and OT assisted patient into car. [Electronically Signed on: 05/27/2020 18:20 EDT] Mayra Tafoya RN [Verified on: 05/27/2020 18:20 EDT] Mayra Tafoya RN [facility] Progress Note-Physicianon Progress Note-Physician DATE [...] The patient will be going to [facility] today. CONDITION ON DISCHARGE: Stable. Tino Moon DO JOB #: [id number] [Electronically Signed on: 05/28/2020 10:10 EDT] TINO MOON DO [Verified on: 05/28/2020 10:10 EDT] TINO MOON DO [Transcribed on: 05/27/2020 14:44 EDT] [facility] Progress Note-Physician DATE OF POSTOPERATIVE ORTHOPEDIC PROGRESS [...] PROGNOSIS: Fair. Tino Moon DO JOB #: [id number] [Electronically Signed on: 05/27/2020 12:30 EDT] TINO MOON DO [Verified on: 05/27/2020 12:30 EDT] TINO MOON DO [Transcribed on: 05/27/2020 10:45 EDT] [facility] Normal [facility] .Auto Diff 105-26-2020 Auto Pepin % 16 % High 12 [facility] Comment on above: Performed By: #### 1 [id number], [id number], [id number] #### [facility] (DEFAULT) [address] [place] [address] Baso Abs# 0.0 x10 Normal 0.0-0.2 [facility] Comment on above: Performed By: #### 1 [id number], [id number], [id number] #### [facility] (DEFAULT) [address] [place] [address] 23545 Basophils/100 WBC (Bld) 0.2 % Normal 0.2-2.0 [facility] Comment on above: Performed By: #### 1 [id number], [id number], [id number] #### [facility] (DEFAULT) [address] [place] [address] 45572 Eos Abs# 0.0 x10 Normal 0.0-0.4 [facility] Comment on above: Performed By: #### 1 [id number], [id number], [id number] #### [facility] (DEFAULT) [address] [place] [address] 64075 Eosinophils/100 WBC (Bld) 0.5 % Low 0.9-4.0 [facility] Comment on above: Performed By: #### 1 [id number], 53090876, 7927254 #### [facility] (DEFAULT) [address] [place] [address] 74562 Lymphocytes (Bld) [#/Vol] 1.2 x10 Low 1.3-2.9 [facility] Comment on above: Performed By: #### 1 [id number], [id number], 6498892 #### [facility] (DEFAULT) [address] [place] [address] 50881 Lymphocytes/100 WBC (Bld) 15 % Normal 14-48 [facility] Comment on above: Performed By: #### 1 [id number], [id number], [id number] #### [facility] (DEFAULT) [address] [place] [address] 19050 Pepin Abs# 1.3 x10 High 0.0-0.8 [facility] Comment on above: Performed By: #### 1 [id number], [id number], [id number] #### [facility] (DEFAULT) [address] [place] [address] 40434 Neut Abs# 5.6 x10 Normal 1.5-9.2 [facility] Comment on above: Performed By: #### 1 [id number], 58962879, 8902211 #### [facility] (DEFAULT) [address] [place] [address] 37176 Neutrophils/100 WBC (Bld) 68 % Normal 44-88 [facility] Comment on above: Performed By: #### 1 [id number], [id number], 8830784 #### [facility] (DEFAULT) [address] [place] [address] CBC w/ Auto Diffon 0 Erythrocyte distribution width (RBC) [Ratio] 17.9 % High 11.5-15.0 [facility] Comment on above: Performed By: #### 1 [id number], [id number], 7395114 #### [facility] (DEFAULT) [address] [place] [address] Hematocrit (Bld) [Volume fraction] 28.5 % Low 33.7-40.4 [facility] Comment on above: Performed By: #### 1 [id number], [id number], 1350601 #### [facility] (DEFAULT) [address] [place] [address] 96307 Hemoglobin (Bld) [Mass/Vol] 8.5 g/dL Low 11.3-15.9 [facility] Comment on above: Performed By: #### 1 [id number], [id number], 9065415 #### [facility] (DEFAULT) [address] [place] [address] 98044 Man Diff? Auto Normal [facility] Comment on above: Performed By: #### 1 [id number], [id number], 8862710 #### [facility] (DEFAULT) [address] [place] [address] 31718 MCH (RBC) [Entitic mass] 24 pg Normal 24-34 [facility] Comment on above: Performed By: #### 1 [id number], [id number], 5745117 #### [facility] (DEFAULT) [address] [place] [address] 64903 MCHC (RBC) [Mass/Vol] 30 g/dL Normal 26-37 [facility] Comment on above: Performed By: #### 1 [id number], 44723219, 7392767 #### [facility] (DEFAULT) [address] [place] [address] 14520 MCV (RBC) [Entitic vol] 81 fL Normal 81-100 [facility] Comment on above: Performed By: #### 1 [id number], [id number], 0598024 #### [facility] (DEFAULT) [address] [place] [address] 37772 Platelet mean volume (Bld) [Entitic vol] 10.5 fL High 6.3-10.2 [facility] Comment on above: Performed By: #### 1 [id number], 85346861, 6496256 #### [facility] (DEFAULT) [address] [place] [address] 28842 Platelets (Bld) [#/Vol] 178 x10 Normal 138-427 [facility] Comment on above: Performed By: #### 1 [id number], [id number], 9634425 #### [facility] (DEFAULT) [address] [place] [address] 52574 RBC (Bld) [#/Vol] 3.50 x10 Low 3.70-5.30 [facility] Comment on above: Performed By: #### 1 [id number], 20613284, 2119267 #### [facility] (DEFAULT) [address] [place] [address] 94027 WBC (Bld) [#/Vol] 8.2 x10 [facility] Comment on above: Performed By: #### 1 [id number], 98981680, 1275593 #### [facility] (DEFAULT) [address] [place] [address] 84779 Extra Greenon 05-26-2020 Tube Collected Yes [facility] Comment on above: Performed By: #### 1 [id number], 56873522, 7180589 #### [facility] (DEFAULT) [address] [place] [address] 64395 History and Physicalon 05-26 History and Physical [id number] [facility] Nutrition Noteon 05-26-2020 Nutrition Note Per intake records, Pt avg 50% of past 6 meals with inconsistent supplement intake avg 1X/d. Last BM on 05/23, will offer prune juice. Post op anemia noted; per ortho 1unit PRBC given. CXR obtained for fever, dyspnea which was wnl. Possible discharge later today. Will continue to monitor. [facility] PTon 05-26-2020 INR Coag (PPP) [Relative time] 2.54 {INR} High 0.91-1.11 [facility] Comment on above: Performed By: #### 1 [id number], [id number], [id number] #### [facility] (DEFAULT) [address] [place] [address] 58034 PT Coag (PPP) [Time] 24.4 second(s) High 9.7-11.8 [facility] Comment on above: Performed By: #### 1 [id number], 65735571, 0194024 #### [facility] (DEFAULT) [address] [place] [address] 75160 Progress Note-Physicianon Progress Note-Physician DATE OF ORTHOPEDIC [...] is good. Tino Moon DO JOB #: [id number] [Electronically Signed on: 05/26/2020 13:12 EDT] TINO MOON DO [Verified on: 05/26/2020 13:12 EDT] TINO MOON DO [Transcribed on: 05/26/2020 10:28 EDT] [facility] XR Chest 1 View Frontalon XR Chest [...] 05/26/20 3:37 pm Technologist: AUGUSTO LEE Normal [facility] .Auto Diff 05-25-2020 Auto Pepin % 17 % High -12 [facility] Comment on above: Performed By: #### 1 [id number], [id number], 9960110 #### [facility] (DEFAULT) [address] [place] [address] 33053 Baso Abs# 0.0 x10 Normal 0.0-0.2 [facility] Comment on above: Performed By: #### 1 [id number], [id number], 4007087 #### [facility] (DEFAULT) [address] [place] [address] 94920 Basophils/100 WBC (Bld) 0.3 % Normal 0.2-2.0 [facility] Comment on above: Performed By: #### 1 [id number], 78136446, 0852287 #### [facility] (DEFAULT) [address] [place] [address] 07532 Eos Abs# 0.0 x10 Normal 0.0-0.4 [facility] Comment on above: Performed By: #### 1 [id number], 24504055, 6729611 #### [facility] (DEFAULT) [address] [place] [address] 28006 Eosinophils/100 WBC (Bld) 0.1 % Low 0.9-4.0 [facility] Comment on above: Performed By: #### 1 [id number], 28500652, 0045409 #### [facility] (DEFAULT) [address] [place] [address] 17337 Lymphocytes (Bld) [#/Vol] 0.8 x10 Low 1.3-2.9 [facility] Comment on above: Performed By: #### 1 [id number], 21787133, 5997285 #### [facility] (DEFAULT) [address] [place] [address] Lymphocytes/100 WBC (Bld) 11 % Low 14-48 [facility] Comment on above: Performed By: #### 1 [id number], 94287274, 4009308 #### [facility] (DEFAULT) [address] [place] [address] Pepin Abs# 1.1 x10 High 0.0-0.8 [facility] Comment on above: Performed By: #### 1 [id number], 28120410, 0785974 #### [facility] (DEFAULT) [address] [place] [address] Neut Abs# 4.8 x10 Normal 1.5-9.2 [facility] Comment on above: Performed By: #### 1 [id number], 75636902, 2556100 #### [facility] (DEFAULT) [address] [place] [address] Neutrophils/100 WBC (Bld) 72 % Normal 44-88 [facility] Comment on above: Performed By: #### 1 [id number], 05221528, 4813414 #### [facility] (DEFAULT) [address] [place] [address] CBC w/ Auto Diffon 0 Erythrocyte distribution width (RBC) [Ratio] 17.6 % High 11.5-15.0 [facility] Comment on above: Performed By: #### 1 [id number], 70784238, 7417199 #### [facility] (DEFAULT) [address] [place] [address] Hematocrit (Bld) [Volume fraction] 27.4 % Low 33.7-40.4 [facility] Comment on above: Performed By: #### 1 [id number], 38542663, 2626373 #### [facility] (DEFAULT) [address] [place] [address] Hemoglobin (Bld) [Mass/Vol] 8.1 g/dL Low 11.3-15.9 [facility] Comment on above: Performed By: #### 1 [id number], 06118530, 3203713 #### [facility] (DEFAULT) [address] [place] [address] Man Diff? Auto Normal [facility] Comment on above: Performed By: #### 1 [id number], 38680401, 0083525 #### [facility] (DEFAULT) [address] [place] [address] MCH (RBC) [Entitic mass] 24 pg Normal 24-34 [facility] Comment on above: Performed By: #### 1 [id number], 54464708, 9051060 #### [facility] (DEFAULT) [address] [place] [address] MCHC (RBC) [Mass/Vol] 30 g/dL Normal 26-37 [facility] Comment on above: Performed By: #### 1 [id number], 47005710, 3474401 #### [facility] (DEFAULT) [address] [place] [address] MCV (RBC) [Entitic vol] 80 fL Low 81-100 [facility] Comment on above: Performed By: #### 1 [id number], 97328177, 6245367 #### [facility] (DEFAULT) [address] [place] [address] Platelet mean volume (Bld) [Entitic vol] 10.8 fL High 6.3-10.2 [facility] Comment on above: Performed By: #### 1 [id number], 36459009, 2503641 #### [facility] (DEFAULT) [address] [place] [address] Platelets (Bld) [#/Vol] 186 x10 Normal 138-427 [facility] Comment on above: Performed By: #### 1 [id number], 85489396, 6622426 #### [facility] (DEFAULT) [address] [place] [address] 46322 RBC (Bld) [#/Vol] 3.42 x10 Low 3.70-5.30 [facility] Comment on above: Performed By: #### 1 [id number], 54184347, 1861404 #### [facility] (DEFAULT) [address] [place] [address] 23358 WBC (Bld) [#/Vol] 6.8 x10 Normal 3.5-10.5 [facility] Comment on above: Performed By: #### 1 [id number], 73006458, 7306269 #### [facility] (DEFAULT) [address] [place] [address] 92509 Electrolyte Panel Standardon 05-25-2020 Anion gap [Moles/Vol] 12.0 mmol/L Normal 5.0-19.0 [facility] Comment on above: Performed By: #### 1 [id number], 83462993, 4409044 #### [facility] (DEFAULT) [address] [place] [address] 94277 Chloride [Moles/Vol] 102 mmol/L Normal 101-111 [facility] Comment on above: Performed By: #### 1 [id number], 30887963, 6165354 #### [facility] (DEFAULT) [address] [place] [address] 15577 CO2 [Moles/Vol] 28 mmol/L Normal 21-32 [facility] Comment on above: Performed By: #### 1 [id number], 91174377, 8225724 #### [facility] (DEFAULT) [address] [place] [address] 46043 Potassium [Moles/Vol] 4.0 mmol/L Normal 3.6-5.1 [facility] Comment on above: Performed By: #### 1 [id number], 91718330, 8830484 #### [facility] (DEFAULT) [address] [place] [address] 42303 Sodium [Moles/Vol] 138.0 mmol/L Normal 136.0-144 . 0 [facility] Comment on above: Performed By: #### 1 [id number], 80604153, 1767552 #### [facility] (DEFAULT) [address] [place] [address] 05844 PTon 05-25-2020 INR Coag (PPP) [Relative time] 1.89 {INR} High 0.91-1.11 [facility] Comment on above: Performed By: #### 1 [id number], [id number], 9627920 #### [facility] (DEFAULT) [address] [place] [address] 30685 PT Coag (PPP) [Time] 18.6 second(s) High 9.7-11.8 [facility] Comment on above: Performed By: #### 1 [id number], 42300191, 0063544 #### [facility] (DEFAULT) [address] [place] [address] 06054 Progress Note - Nurseon 04-29 Progress Note [...] 05/25/2020 18:51 EDT] Jessica Abernathy RN [facility] Progress Note - Nurse Unable to get mask to fit correctly so placed on 2 L overnight. [Electronically Signed on: 05/25/2020 01:45 EDT] Lyndsay Lou RN [Verified on: 05/25/2020 01:45 EDT] Lyndsay Lou RN [facility] Progress Note - Nurse Pt asleep with cpap mask off, woke her to put it back on. [Electronically Signed on: 05/25/2020 01:33 EDT] Lyndsay Lou RN [Verified on: 05/25/2020 01:33 EDT] Lyndsay Lou RN [facility] Progress Note - Nurse Pt up to bedside commode with 2 assist and walker, transfers very poorly and reports alot of knee pain. [Electronically Signed on: 05/25/2020 00:22 EDT] Lyndsay Lou RN [Verified on: 05/25/2020 00:22 EDT] Lyndsay Lou RN [facility] RBC.on 05-25-2020 RBC (Bld) [#/Vol] # of Units: 1 RBC Indication: Post-Op Bleed Additional Units?: No Date Needed: 05/25/2002 Red Cell Status: RBC Ready [facility] Comment on above: Performed By: #### 1 [id number], [id number], 5502196 #### [facility] (DEFAULT) [address] [place] [address] .Auto Diff 1on 05-24-2020 Auto Pepin % 9 % Normal 12-09 [facility] Comment on above: Performed By: #### 1 [id number], [id number], 6898838 #### [facility] (DEFAULT) [address] [place] [address] Baso Abs# 0.0 x10 Normal 0.0-0.2 [facility] Comment on above: Performed By: #### 1 [id number], 02751172, 1877961 #### [facility] (DEFAULT) [address] [place] [address] 67796 Basophils/100 WBC (Bld) 0.2 % Normal 0.2-2.0 [facility] Comment on above: Performed By: #### 1 [id number], 19684006, 1214032 #### [facility] (DEFAULT) [address] [place] [address] 19145 Eos Abs# 0.0 x10 Normal 0.0-0.4 [facility] Comment on above: Performed By: #### 1 [id number], 89965149, 8311736 #### [facility] (DEFAULT) [address] [place] [address] 29716 Eosinophils/100 WBC (Bld) 0.0 % Low 0.9-4.0 [facility] Comment on above: Performed By: #### 1 [id number], 60056904, 7962968 #### [facility] (DEFAULT) [address] [place] [address] 20591 Lymphocytes (Bld) [#/Vol] 0.7 x10 Low 1.3-2.9 [facility] Comment on above: Performed By: #### 1 [id number], 59762043, 9647467 #### [facility] (DEFAULT) [address] [place] [address] 40826 Lymphocytes/100 WBC (Bld) 6 % Low 14-48 [facility] Comment on above: Performed By: #### 1 [id number], 34421476, 0415950 #### [facility] (DEFAULT) [address] [place] [address] 97685 Pepin Abs# 0.9 x10 High 0.0-0.8 [facility] Comment on above: Performed By: #### 1 [id number], 35382701, 6155931 #### [facility] (DEFAULT) [address] [place] [address] 97967 Neut Abs# 8.7 x10 Normal 1.5-9.2 [facility] Comment on above: Performed By: #### 1 [id number], 16824418, 7872615 #### [facility] (DEFAULT) [address] [place] [address] 88502 Neutrophils/100 WBC (Bld) 84 % Normal 44-88 [facility] Comment on above: Performed By: #### 1 [id number], 89548209, 6034447 #### [facility] (DEFAULT) [address] [place] [address] 72729 [facility] Standardon 05-24-2020 eGFR Non AA >60 [facility] Comment on above: Performed By: #### 1 [id number], 87858212, 7409001 #### [facility] (DEFAULT) [address] [place] [address] 25029 eGFR AA >60 [facility] Comment on above: Result Comment: Hydro Technician ghazal Kidney disease could be indicated at eGFRs of less than 60 ml/min/1.73m2. Kidney Failure is indicated at less than 15 ml/min/1.73m2 Performed By: #### 1 [id number], [id number], 7594373 #### [facility] (DEFAULT) [address] [place] [address] 55749 Anion gap [Moles/Vol] 13.0 mmol/L Normal 5.0-19.0 [facility] Comment on above: Performed By: #### 1 [id number], 16724628, 5336814 #### [facility] (DEFAULT) [address] [place] [address] 08599 Calcium [Mass/Vol] 8.5 mg/dL Low 8.9-10.3 [facility] Comment on above: Performed By: #### 1 [id number], 59718825, 5856840 #### [facility] (DEFAULT) [address] [place] [address] 86927 Chloride [Moles/Vol] 102 mmol/L Normal 101-111 [facility] Comment on above: Performed By: #### 1 [id number], 40424617, 9935119 #### [facility] (DEFAULT) [address] [place] [address] 58111 CO2 [Moles/Vol] 27 mmol/L Normal 21-32 [facility] Comment on above: Performed By: #### 1 [id number], 19081892, 1624674 #### [facility] (DEFAULT) [address] [place] [address] 93424 Creatinine [Mass/Vol] 0.57 mg/dL Low 0.60-1.30 [facility] Comment on above: Performed By: #### 1 [id number], 71210431, 0251120 #### [facility] (DEFAULT) [address] [place] [address] 69906 Glucose [Mass/Vol] 134.0 mg/dL High 74.0-118.0 [facility] Comment on above: Performed By: #### 1 [id number], 87748500, 7292879 #### [facility] (DEFAULT) [address] [place] [address] 60721 Osmolality [Osmolality] 280 mOsm/L [facility] Comment on above: Performed By: #### 1 [id number], 79048975, 7672160 #### [facility] (DEFAULT) [address] [place] [address] 08279 Potassium [Moles/Vol] 4.4 mmol/L Normal 3.6-5.1 [facility] Comment on above: Performed By: #### 1 [id number], 35751097, 1910603 #### [facility] (DEFAULT) [address] [place] [address] 12605 Sodium [Moles/Vol] 138.0 mmol/L Normal 136.0-144 . 0 [facility] Comment on above: Performed By: #### 1 [id number], 53706184, 1570058 #### [facility] (DEFAULT) [address] [place] [address] 81127 Urea nitrogen [Mass/Vol] 19 mg/dL Normal 8-26 [facility] Comment on above: Performed By: #### 1 [id number], 42698148, 9566939 #### [facility] (DEFAULT) [address] [place] [address] 19955 Urea nitrogen/Creatinin e [Mass ratio] 33.0 mg/mg High 4.6-16.2 [facility] Comment on above: Performed By: #### 1 [id number], 92838905, 1333483 #### [facility] (DEFAULT) [address] [place] [address] CBC w/ Auto Diffon 0 Erythrocyte distribution width (RBC) [Ratio] 17.4 % High 11.5-15.0 [facility] Comment on above: Performed By: #### 7 [id number], [id number], [id number] #### [facility] (DEFAULT) [address] [place] [address] Hematocrit (Bld) [Volume fraction] 29.3 % Low 33.7-40.4 [facility] Comment on above: Performed By: #### 7 [id number], [id number] #### [facility] (DEFAULT) [address] [place] [address] Hemoglobin (Bld) [Mass/Vol] 8.7 g/dL Low 11.3-15.9 [facility] Comment on above: Performed By: #### 7 [id number], [id number] #### [facility] (DEFAULT) [address] [place] [address] Man Diff? Auto Normal [facility] Comment on above: Performed By: #### 7 [id number], [id number], [id number] #### [facility] (DEFAULT) [address] [place] [address] MCH (RBC) [Entitic mass] 24 pg Normal 24-34 [facility] Comment on above: Performed By: #### 7 [id number], [id number], [id number] #### [facility] (DEFAULT) [address] [place] [address] MCHC (RBC) [Mass/Vol] 30 g/dL Normal 26-37 [facility] Comment on above: Performed By: #### 7 [id number], [id number], [id number] #### [facility] (DEFAULT) [address] [place] [address] MCV (RBC) [Entitic vol] 81 fL Normal 81-100 [facility] Comment on above: Performed By: #### 7 [id number], [id number], [id number] #### [facility] (DEFAULT) [address] [place] [id number] Platelet mean volume (Bld) [Entitic vol] 10.6 fL High 6.3-10.2 [facility] Comment on above: Performed By: #### 7 [id number], [id number], [id number] #### [facility] (DEFAULT) [address] [place] [address] 02999 Platelets (Bld) [#/Vol] 211 x10 Normal 138-427 [facility] Comment on above: Performed By: #### 7 [id number], [id number], [id number] #### [facility] (DEFAULT) [address] [place] [address] 85189 RBC (Bld) [#/Vol] 3.63 x10 Low 3.70-5.30 [facility] Comment on above: Performed By: #### 7 [id number], [id number], [id number] #### [facility] (DEFAULT) [address] [place] [address] 81658 WBC (Bld) [#/Vol] 10.4 x10 Normal 3.5-10.5 [facility] Comment on above: Performed By: #### 7 495508, [id number], [id number] #### [facility] (DEFAULT) [address] [place] [address] 15282 Nutrition Noteon 05-24-2020 Nutrition Note Diet ordered as 3000 kcal, DM w/ Boost Glucose Control BID. Diet adjusted to 2gr Na to reflect Pts home diet and supplement changed to Ensure Compact BID which is available in house. Pt does not have DM. Will continue to monitor. Normal [facility] PTon 05-24-2020 INR Coag (PPP) [Relative time] 1.21 {INR} High 0.91-1.11 [facility] Comment on above: Performed By: #### 1 [id number], [id number], [id number] #### [facility] (DEFAULT) [address] [place] [address] PT Coag (PPP) [Time] 12.3 second(s) High 9.7-11.8 [facility] Comment on above: Performed By: #### 1 [id number], [id number], [id number] #### [facility] (DEFAULT) [address] [place] [address] Pharmacy Noteon 05-24-2020 Pharmacy Note I have [...] on: 05/24/2020 16:28 EDT] Kellee Molina [facility] Progress Note - Nurseon 04-29 Progress Note - Nurse pts pain becming worse. giving 10mg oxy po every four hours, polar care in place and dr epperson notified of pain not controlled. will administer po gabepentin per order. will continue to monitor [Electronically Signed on: 05/24/2020 17:20 EDT] Jessica Abernathy RN [Verified on: 05/24/2020 17:20 EDT] Jessica Abernathy RN [facility] Progress Note - Nurse pt requires assistance getting in and out of bed. still a little stiff from surgery but does ok once up w the walker. pain so far has been controlled w 10 mg po oxy. [Electronically Signed on: 05/24/2020 10:54 EDT] Jessica Abernathy RN [Verified on: 05/24/2020 10:54 EDT] Jessica Abernathy RN Normal [facility] ABORhon 05-23-2020 ABO and Rh group Nom (d) Hx Check: Not Found Anti-A: 4+ Anti-B: 0 Anti-D: 4+ DCon: NT A1: mf+ B: 4+ ABORh Interp: A [facility] Comment on above: Performed By: #### 7 [id number], [id number], [id number] #### [facility] (DEFAULT) [address] [place] [address] ABORh Retypeon 05-23-2020 ABO and Rh group Nom (d) Ordered by Discern. Anti-A: 4+ Anti-B: 0 Anti-D: 4+ DCon: NT A1: mf+ B: 4+ ABORh Retype: A [facility] Comment on above: Performed By: #### 7 750249, [id number], [id number] #### [facility] (DEFAULT) [address] [place] [address] 22940 ABSC Gelon 05-23-2020 ABSC Gel Negative [facility] Comment on above: Performed By: #### 7 [id number], [id number], [id number] #### [facility] (DEFAULT) [address] [place] [address] 33569 Anesthesia Noteon 05-23-2020 Anesthesia Note Patient: KEY [...] history): All Problems Anemia / SNOMED CT 889333382 / Confirmed At risk of pressure sore / SNOMED CT 292874524 / Confirmed Cardiomyopathy / SNOMED CT 714547775 / Confirmed DVT (deep venous thrombosis) / SNOMED CT 499544844 / Confirmed GERD (gastroesophageal reflux disease) / SNOMED CT 747700170 / Confirmed Hyperlipidemia / SNOMED CT 09411578 / Confirmed Hypertension / SNOMED CT 5466611224 / Confirmed Lumbar spondylosis / SNOMED CT 988815277 / Confirmed Mass / SNOMED CT 288840903 / Confirmed KERMIT (obstructive sleep apnea) / SNOMED CT 138459944 / Confirmed Pulmonary hypertension / SNOMED CT 265742988 / Confirmed Seizure / SNOMED CT 196165803 / Confirmed Venous insufficiency / SNOMED CT 376070879 / Confirmed Resolved: Adrenal adenoma / SNOMED CT 471299198 Resolved: Pulmonary emboli / SNOMED CT 43533563 Histories Family History: Diabetes mellitus Sister Heart attack Father Leukemia Father Stroke.... Mother Procedure history: Cholecystectomy (16752837). Colectomy (58357130). Colonoscopy (994643657). Jaspreet filter (058828078). Femur fracture, right (90823300). Shoulder (46704664). Comments: 02/08/2020 9:57 EDT Stacy Booker RN torn rotator cuff 02/08/2020 7:28 EDT Stacy Booker RN arthroplasty Knee arthroplasty (763028356). Craniotomy (89733278). Laminectomy (9528208775). Comments: 02/08/2020 7:30 Stacy Reynolds RN foraminotomy, facetectomy with decompression and fusion Cataract (179371566). Social History Electronic Cigarette/Vaping Assessment Electronic Cigarette [...] Oriented. Review / Management Laboratory Results Plan [employer] Anesthesiologists#(ASA) physical status classification: Class [...] 05/23/2020 13:34 EDT] Maico Sandhu DO Normal [facility] Blood Bank [facility] 05-23-2020 Blood Bank ID BBID: [id number] [facility] Comment on above: Performed By: #### 7 [id number], [id number], [id number] #### [facility] (DEFAULT) [address] [place] [address] Extra [place]ma 05-23-2020 Tube Collected Yes [facility] Comment on above: Performed By: #### 7 113498, [id number], [id number] #### [facility] (DEFAULT) [address] [place] [address] 94417 Tube Collected Yes [facility] Comment on above: Performed By: #### 7 377098, 13482419, [id number] #### [facility] (DEFAULT) [address] [place] [address] 54776 Hgbon 05-23-2020 Hemoglobin (Bld) [Mass/Vol] 10.1 g/dL Low 11.3-15.9 [facility] Comment on above: Performed By: #### 7 713588, 58210839, [id number] #### [facility] (DEFAULT) [address] [place] [address] 96400 MAGR Intraoperative Recordon 05-23-2020 MAGR Intraoperative Record MAGR Intra-Op Record Summary Primary Physician: FERNANDO SILVA Finalized Date/Time: 05/23/20 16:19:21 Pt. Name: SANDRA TAVAREZ Lyndsay White/Sex: 1940 FEMALE Med Rec #: [id number] Physician: FERNANDO SILVA Financial #: [id number] Pt. Type: I Room/Bed: [facility] Admit/Disch: 05/23/20 09:44:18 - Institution: Case [...] Role Performed Surgeon - Primary Anesthesiologist of Clock Repair Technician Record Time In 05/23/20 13:19:00 05/23/20 13:19:00 [...] RN Regina CST Role Performed Scrub Personnel Cork Slabs Sawyer Cork Slabs Sawyer Time In 05/23/20 13:19:00 05/23/20 13:19:00 05/23/20 [...] Implanted/Explanted By: Size 6.5mm 48mm 29MM ISADORA Jawbone Puller waleska WALESKA WALESKA Catalog # Lot Number [id number] Expiration Date 10/27/29 11/27/29 10/27/29 Serial Number REF 6250 65 35 REF 5983 40 48 REF 5979 95 29 Device Identifier Human Readable CHASE Machine Readable CHASE MR Class Implant Usage Data Site Knee L Knee L Knee L Quantity 1 1 1 Reason for Explant Reason Not Retained Explant Disposition Esl Professor Sterility External Indicator Result Internal Indicator Results [...] C D 15MM ISADORA X 30MM L Jawbone Puller WALESKA WALESKA WALESKA Catalog # Lot Number [id number] Expiration Date 02/25/30 01/25/25 08/27/29 Serial Number REF 5983 [id number] RE 59 62 30 10 REF 5099 12 15 Device Identifier Human Readable CHASE Machine Readable CHASE MR Class Implant Usage Data Site Knee L Knee L Knee L Quantity 1 1 1 Reason for Explant Reason Not Retained Explant Disposition Esl Professor Sterility External Indicator Result Internal Indicator Results [...] By: Size 29 MM ISADORA 4 D Jawbone Puller WALESKA WALESKA WALESKA Catalog # Lot Number [id number] Expiration Date 09/27/27 09/25/29 07/28/26 Serial Number REF 42 [id number] 000 29 REF 5980 37 02 REF 00 [id number] Device Identifier Human Readable CHASE Machine Readable CHASE MR Class Implant Usage Data Site Knee L Knee L Knee L Quantity 1 1 1 Reason for Explant Reason Not Retained Explant Disposition Esl Professor Sterility External Indicator Result Internal Indicator Results [...] Date/Time Implanted/Explanted FERNANDO SILVA GEORGE By: Size Jawbone Puller WALESKA/BIOMET WALESKA/BIOMET Catalog # Lot Number [id number] Expiration Date 05/27/24 05/27/24 Serial Number REF [id number] REF [id number] Device Identifier Human Readable CHASE Machine Readable CHASE MR Class Implant Usage Data Site Knee L Knee L Quantity 1 1 Reason for Explant Reason Not Retained Explant Disposition Esl Professor Sterility External Indicator Result Internal Indicator Results [...] By: Shanique Brown RN 05/23/20 16:19 [facility] MAGR Intraoperative Record MAGR Intra-Op Record Summary Primary Physician: Finalized Date/Time: 05/23/20 13:14:24 Pt. Name: SANDRA TAVAREZ/Sex: 1940 FEMALE Med Rec #: [id number] Physician: FERNANDO SILVA Financial #: [id number] Pt. Type: I Room/Bed: [facility] Admit/Disch: 05/23/20 09:44:18 - Institution: Case [...] Warga, Laura RN Role Performed Anesthesiologist of Clock Repair Technician Clock Repair Technician Record Time In 05/23/20 12:58:00 05/23/20 12:58:00 [...] Signed By: Stacy Pena RN 05/23/20 13:14 [facility] Primary Physician: FERNANDO SILVA Finalized Date/Time: 05/23/20 16:49:56 Pt. Name: SANDRA TAVAREZ/Sex: 1940 FEMALE Med Rec #: [id number] Physician: FERNANDO SILVA Financial #: [id number] Pt. Type: I Room/Bed: [facility] Admit/Disch: 05/23/20 09:44:18 - Institution: PACU Case Times MAGR Entry 1 In PACU I 05/23/20 16:18:00 Discharge from PACU 05/23/20 16:51:00 I Last Modified By: Shanique Brown RN 05/23/20 16:49:54 Finalized By: Shanique Brown RN Document Signatures Signed By: Shanique Brown RN 05/23/20 16:49 [facility] Nutrition Noteon 05-23-2020 Nutrition Note Pt [...] age greater than 65y and surgery. Normal [facility] PTon 05-23-2020 INR Coag (PPP) [Relative time] 1.22 {INR} High 0.91-1.11 [facility] Comment on above: Performed By: #### 7 [id number], [id number], [id number] #### [facility] (DEFAULT) [address] [place] [address] 69584 PT Coag (PPP) [Time] 12.4 second(s) High 9.7-11.8 [facility] Comment on above: Result Comment: Call ed Shira in Pre - Surg at 1059 Performed By: #### 7 053925, [id number], [id number] #### [facility] (DEFAULT) [address] [place] [address] 79922 SARS-CoV-2 (COVID-19) PCRon 05-23-2020 COVID-19 PCR Not Detected Normal Not Detected [facility] Comment on above: Result Comment: perf ormed in house Results Called To Stacy in pre-surg By ARIADNA And Read Back For Confirmation On 05/23/2020 10:55:59 EDT Performed By: #### 7 011115, 63673979, [id number] #### [facility] (DEFAULT) [address] [place] [address] 73602 XR Knee One or Two Views Lef [...] 05/23/20 4:50 pm Technologist: Michelle BLANTON Normal [facility] Progress Note - Nurseon 04-28 Progress Note - Nurse Chart reviewed by Dr. Fish and no new orders received. May proceed to surgery. [Electronically Signed on: 05/07/2020 15:56 EDT] Chrissie Contreras RN [Verified on: 05/07/2020 15:56 EDT] Chrissie Contreras RN [facility] Coding Summaryon 02-27-2020 Coding Summary CODING DATE: 020 [facility] STATUS: Home PAYOR: Medicare APC DESCRIPTION [...] Revised Date Saved: 02/27/2020 01:41 pm [facility] Progress Note - Nurseon - Progress Note - Nurse Chart reviewed by Dr. Garcia and no new orders received. [Electronically Signed on: 02/12/2020 15:52 EDT] Chrissie Contreras RN [Verified on: 02/12/2020 15:52 EDT] Chrissie Contreras RN A [facility] Provider Orderson 02-11-2020 Provider Orders [id number] [facility] C Urineon 02-10-2020 C Urine Urine Culture ordere d as a result of parameters set on specific urine dip and urine microsopic results. Mixed skin, or urogenital paddy. Clinically insignificant [facility] Comment on above: Performed By: #### 1 [id number], [id number], [id number] #### [facility] (DEFAULT) [address] [place] [address] .Auto Diff 1on 02-08-2020 Auto Pepin % 12 % Normal 12 [facility] Comment on above: Performed By: #### 7 009551, [id number], [id number] #### [facility] (DEFAULT) [address] [place] [address] Baso Abs# 0.0 x10 Normal 0.0-0.2 [facility] Comment on above: Performed By: #### 7 791832, 08894469, [id number] #### [facility] (DEFAULT) [address] [place] [address] Basophils/100 WBC (Bld) 0.4 % Normal 0.2-2.0 [facility] Comment on above: Performed By: #### 7 897616, 01265832, [id number] #### [facility] (DEFAULT) [address] [place] [address] Eos Abs# 0.1 x10 Normal 0.0-0.4 [facility] Comment on above: Performed By: #### 7 046629, 11185038, [id number] #### [facility] (DEFAULT) [address] [place] [address] Eosinophils/100 WBC (Bld) 1.9 % Normal 0.9-4.0 [facility] Comment on above: Performed By: #### 7 808803, 68549186, [id number] #### [facility] (DEFAULT) [address] [place] [address] 30693 Lymphocytes (Bld) [#/Vol] 1.0 x10 Low 1.3-2.9 [facility] Comment on above: Performed By: #### 7 672519, 20476759, [id number] #### [facility] (DEFAULT) [address] [place] [address] 55937 Lymphocytes/100 WBC (Bld) 22 % Normal 14-48 [facility] Comment on above: Performed By: #### 7 657290, 19255366, [id number] #### [facility] (DEFAULT) [address] [place] [address] Pepin Abs# 0.6 x10 Normal 0.0-0.8 [facility] Comment on above: Performed By: #### 7 398020, 51615863, [id number] #### [facility] (DEFAULT) [address] [place] [address] Neut Abs# 3.0 x10 Normal 1.5-9.2 [facility] Comment on above: Performed By: #### 7 611245, 28631122, [id number] #### [facility] (DEFAULT) [address] [place] [address] 02091 Neutrophils/100 WBC (Bld) 64 % Normal 44-88 [facility] Comment on above: Performed By: #### 7 386830, 13312186, [id number] #### [facility] (DEFAULT) [address] [place] [address] Standardon 02-08-2020 eGFR Non AA >60 [facility] Comment on above: Performed By: #### 7 070626, 88103368, [id number] #### [facility] (DEFAULT) [address] [place] [address] eGFR AA >60 [facility] Comment on above: Result Comment: Hydro Technician ghazal Kidney disease could be indicated at eGFRs of less than 60 ml/min/1.73m2. Kidney Failure is indicated at less than 15 ml/min/1.73m2 Performed By: #### 7 750999, 96309517, [id number] #### [facility] (DEFAULT) [address] [place] [address] 62697 Anion gap [Moles/Vol] 15.0 mmol/L Normal 5.0-19.0 [facility] Comment on above: Performed By: #### 7 127540, 63008273, [id number] #### [facility] (DEFAULT) [address] [place] [address] 91797 Calcium [Mass/Vol] 9.4 mg/dL Normal 8.9-10.3 [facility] Comment on above: Performed By: #### 7 248550, 78749608, [id number] #### [facility] (DEFAULT) [address] [place] [address] 03943 Chloride [Moles/Vol] 102 mmol/L Normal 101-111 [facility] Comment on above: Performed By: #### 7 217170, 65187342, [id number] #### [facility] (DEFAULT) [address] [place] [address] 29297 CO2 [Moles/Vol] 26 mmol/L Normal 21-32 [facility] Comment on above: Performed By: #### 7 546447, 93588441, [id number] #### [facility] (DEFAULT) [address] [place] [address] 26585 Creatinine [Mass/Vol] 0.64 mg/dL Normal 0.60-1.30 [facility] Comment on above: Performed By: #### 7 006816, 26060964, [id number] #### [facility] (DEFAULT) [address] [place] [address] 64262 Glucose [Mass/Vol] 112.0 mg/dL Normal 74.0-118.0 [facility] Comment on above: Performed By: #### 7 427554, 47085400, [id number] #### [facility] (DEFAULT) [address] [place] [address] 02243 Osmolality [Osmolality] 280 mOsm/L [facility] Comment on above: Performed By: #### 7 682111, 83177071, [id number] #### [facility] (DEFAULT) [address] [place] [address] 15930 Potassium [Moles/Vol] 4.1 mmol/L Normal 3.6-5.1 [facility] Comment on above: Performed By: #### 7 652033, 19071804, [id number] #### [facility] (DEFAULT) [address] [place] [address] 99005 Sodium [Moles/Vol] 139.0 mmol/L Normal 136.0-144 . 0 [facility] Comment on above: Performed By: #### 7 225860, 98122855, [id number] #### [facility] (DEFAULT) [address] [place] [address] 71777 Urea nitrogen [Mass/Vol] 19 mg/dL Normal 8-26 [facility] Comment on above: Performed By: #### 7 760534, 50217984, [id number] #### [facility] (DEFAULT) [address] [place] [address] Urea nitrogen/Creatinin e [Mass ratio] 30.0 mg/mg High 4.6-16.2 [facility] Comment on above: Performed By: #### 7 495445, 74960814, [id number] #### [facility] (DEFAULT) [address] [place] [address] 18547 CBC w/ Auto Diffon 0 Erythrocyte distribution width (RBC) [Ratio] 14.8 % Normal 11.5-15.0 [facility] Comment on above: Performed By: #### 7 807811, 67660515, [id number] #### [facility] (DEFAULT) [address] [place] [address] 09367 Hematocrit (Bld) [Volume fraction] 37.2 % Normal 33.7-40.4 [facility] Comment on above: Performed By: #### 7 672441, 37525823, [id number] #### [facility] (DEFAULT) [address] [place] [address] 80353 Hemoglobin (Bld) [Mass/Vol] 11.6 g/dL Normal 11.3-15.9 [facility] Comment on above: Performed By: #### 7 709012, 84766039, [id number] #### [facility] (DEFAULT) [address] [place] [address] 65651 Man Diff? Auto Normal [facility] Comment on above: Performed By: #### 7 799241, 01095237, [id number] #### [facility] (DEFAULT) [address] [place] [address] 56772 MCH (RBC) [Entitic mass] 26 pg Normal 24-34 [facility] Comment on above: Performed By: #### 7 799452, 49891707, [id number] #### [facility] (DEFAULT) [address] [place] [address] 61275 MCHC (RBC) [Mass/Vol] 31 g/dL Normal 26-37 [facility] Comment on above: Performed By: #### 7 117006, 35293662, [id number] #### [facility] (DEFAULT) [address] [place] [address] 81907 MCV (RBC) [Entitic vol] 83 fL Normal 81-100 [facility] Comment on above: Performed By: #### 7 222510, 55250344, [id number] #### [facility] (DEFAULT) [address] [place] [address] 57588 Platelet mean volume (Bld) [Entitic vol] 10.8 fL High 6.3-10.2 [facility] Comment on above: Performed By: #### 7 837007, 75590575, [id number] #### [facility] (DEFAULT) [address] [place] [address] 01667 Platelets (Bld) [#/Vol] 218 x10 Normal 138-427 [facility] Comment on above: Performed By: #### 7 730949, 06015417, [id number] #### [facility] (DEFAULT) [address] [place] [address] 91230 RBC (Bld) [#/Vol] 4.47 x10 Normal 3.70-5.30 [facility] Comment on above: Performed By: #### 7 127922, 41531385, [id number] #### [facility] (DEFAULT) [address] [place] [address] WBC (Bld) [#/Vol] 4.8 x10 Normal 3.5-10.5 [facility] Comment on above: Performed By: #### 7 673025, 75897620, [id number] #### [facility] (DEFAULT) [address] [place] [address] UA Woamn2ko 02-08-2020 RBC (U) [#/Vol] None Seen [facility] Comment on above: Order Comment: Urina lysis Microscopic order added on by Discern Expert Rules system. Performed By: #### 1 [id number], 96994088, [id number] #### [facility] (DEFAULT) [address] [place] [address] UA Bacteria 2+ [facility] Comment on above: Order Comment: Urina lysis Microscopic order added on by Talasim Expert Rules system. Performed By: #### 1 [id number], 11542229, [id number] #### [facility] (DEFAULT) [address] [place] [address] UA Squam Epi Moderate [facility] Comment on above: Order Comment: Urina lysis Microscopic order added on by [employer]as[employer] Expert Rules system. Performed By: #### 1 [id number], [id number], [id number] #### [facility] (DEFAULT) [address] [place] [address] UA WBC 3-5 [facility] Comment on above: Order Comment: Urina lysis Microscopic order added on by [employer] Expert Rules system. Performed By: #### 1 [id number], 28261631, [id number] #### [facility] (DEFAULT) [address] [place] [address] UA w Culture if Ind Standard on 02-08-2020 Breakpoint UA [facility] Comment on above: Performed By: #### 1 [id number], [id number], [id number] #### [facility] (DEFAULT) [address] [place] [address] Color (U) Yellow [facility] Comment on above: Performed By: #### 1 [id number], [id number], [id number] #### [facility] (DEFAULT) [address] [place] [address] 53738 Culture? Yes Normal [facility] Comment on above: Performed By: #### 1 [id number], 46676700, [id number] #### [facility] (DEFAULT) [address] [place] [address] 29886 Glucose (U) [Mass/Vol] Negative Normal [facility] Comment on above: Performed By: #### 1 [id number], [id number], [id number] #### [facility] (DEFAULT) [address] [place] [address] 69979 Ketones Ql (U) Negative Normal [facility] Comment on above: Performed By: #### 1 [id number], [id number], [id number] #### [facility] (DEFAULT) [address] [place] [address] 66835 Micro? Indicated [facility] Comment on above: Performed By: #### 1 [id number], 81741858, [id number] #### [facility] (DEFAULT) [address] [place] [address] 49468 UA Bilirubin Negative Normal [facility] Comment on above: Performed By: #### 1 [id number], 05507064, [id number] #### [facility] (DEFAULT) [address] [place] [address] 19690 UA Blood Negative Normal NEGATIVE [facility] Comment on above: Performed By: #### 1 [id number] #### [facility] (DEFAULT) [address] [place] [id number] UA Clarity SL CLOUDY Abnormal CLEAR [facility] Comment on above: Performed By: #### 1 [id number] #### [facility] (DEFAULT) [address] [place] [id number] UA Leuk Est TRACE Abnormal NEGATIVE [facility] Comment on above: Performed By: #### 1 [id number] #### [facility] (DEFAULT) [address] [place] [id number] UA Nitrite Negative Normal NEGATIVE [facility] Comment on above: Performed By: #### 1 [id number] #### [facility] (DEFAULT) [address] [place] [address] UA pH 6.0 Normal 5-8 [facility] Comment on above: Performed By: #### 1 [id number] #### [facility] (DEFAULT) [address] [place] [address] UA Protein Negative Normal NEGATIVE [facility] Comment on above: Performed By: #### 1 [id number] #### [facility] (DEFAULT) [address] [place] [address] UA Spec Grav 1.025 Normal 1.001-1.[address] [place] [address] Comment on above: Performed By: #### 1 [id number] #### [facility] (DEFAULT) [address] [place] [address] UA Urobilinogen 0.2 mg/dL Normal 0.2-1.0 [facility] Comment on above: Performed By: #### 1 [id number] #### [facility] (DEFAULT) [address] [place] [address] Urine Source Clean Catch Normal [facility] Comment on above: Performed By: #### 1 [id number] #### [facility] (DEFAULT) [address] [place] [address] XR Knee Complete Left Standi ngon 02-08-2020 [...] 02/08/20 3:02 pm Technologist: Rony ANTONIO [facility] Vital Signs Date Time Vital Sign Value Performing Clinician Facility 06-18-2025 14:120400 Body height 152.4 cm Robert Ball DO Work Phone: [facility] 06-18-2025 14:12-0400 Body mass index (BMI) [Ratio] 53.8 kg/m2 Robert Ball DO Work Phone: [facility] 06-18-2025 14:120400 Body weight 125.19 kg Robert Ball DO Work Phone: [facility] 06-18-2025 14:12-0400 Diastolic blood pressure 73 mm[Hg] Robert Ball DO Work Phone: [facility] 06-18-2025 14:12-0400 Heart rate 76 /min Robert Ball DO Work Phone: [facility] 06-18-2025 14:12-0400 Respiratory rate 12 /min Robert Ball DO Work Phone: [facility] 06-18-2025 14:12-0400 Systolic blood pressure 160 mm[Hg] Robert Ball DO Work Phone: [facility] 06-14-2025 11:290400 Body height 152.4 cm Robert Ball DO Work Phone: [facility] 06-14-2025 11:29-0400 Body mass index (BMI) [Ratio] 53.8 kg/m2 Robert Ball DO Work Phone: [facility] 06-14-2025 11:290400 Body temperature 97.4 [degF] Robert Ball DO Work Phone: [facility] 06-14-2025 11:290400 Body weight 125.19 kg Robert Ball DO Work Phone: [facility] 06-14-2025 11:29-0400 Diastolic blood pressure 84 mm[Hg] Robert Ball DO Work Phone: [facility] 06-14-2025 11:29-0400 Heart rate 82 /min Robert Ball DO Work Phone: [facility] 06-14-2025 11:29-0400 SaO2% (BldA) [Mass fraction] 96 % Robert Ball DO Work Phone: [facility] 06-14-2025 11:29-0400 Systolic blood pressure 136 mm[Hg] Robert Ball DO Work Phone: [facility] 05-16-2025 12:03-0400 Body height 152.4 cm Robert Ball DO Work Phone: [facility] 05-16-2025 12:03-0400 Body mass index (BMI) [Ratio] 53.3 kg/m2 Robert Ball DO Work Phone: [facility] 05-16-2025 12:03-0400 Body weight 123.83 kg Robert Ball DO Work Phone: [facility] 05-16-2025 12:03-0400 Diastolic blood pressure 73 mm[Hg] Robert Ball DO Work Phone: [facility] 05-16-2025 12:03-0400 Heart rate 82 /min Robert Ball DO Work Phone: [facility] 05-16-2025 12:03-0400 Respiratory rate 12 /min Robert Ball DO Work Phone: [facility] 05-16-2025 12:03-0400 Systolic blood pressure 192 mm[Hg] Robert Ball DO Work Phone: [facility] 05-06-2025 13:26-0400 Body height 152.4 cm [facility] 05-06-2025 13:26-0400 Body mass index (BMI) [Ratio] 53.3 kg/m2 [facility] 05-06-2025 13:26-0400 Body weight 123.83 kg [facility] 05-06-2025 13:26-0400 Diastolic blood pressure 62 mm[Hg] [facility] 05-06-2025 13:26-0400 Heart rate 77 /min [facility] 05-06-2025 13:26-0400 Respiratory rate 12 /min [facility] 05-06-2025 13:26-0400 Systolic blood pressure 198 mm[Hg] [facility] 05-06-2025 12:07-0400 Diastolic blood pressure 82 mm[Hg] [facility] 05-06-2025 12:07-0400 Heart rate 75 /min [facility] 05-06-2025 12:07-0400 SaO2% (BldA) [Mass fraction] 96 % [facility] 05-06-2025 12:07-0400 Systolic blood pressure 142 mm[Hg] [facility] 04-15-2025 13:57-0400 Body height 152.4 cm [facility] 04-15-2025 13:57-0400 Body mass index (BMI) [Ratio] 53.4 kg/m2 [facility] 04-15-2025 13:57-0400 Body weight 124 kg [facility] 04-15-2025 13:57-0400 Diastolic blood pressure 84 mm[Hg] [facility] 04-15-2025 13:57-0400 Heart rate 77 /min [facility] 04-15-2025 13:57-0400 Respiratory rate 18 /min [facility] 04-15-2025 13:57-0400 SaO2% (BldA) [Mass fraction] 98 % [facility] 04-15-2025 13:57-0400 Systolic blood pressure 150 mm[Hg] [facility] 04-09-2025 10:22-0400 Body height 152.4 cm [facility] 04-09-2025 10:22-0400 Body mass index (BMI) [Ratio] 53.6 kg/m2 [facility] 04-09-2025 10:22-0400 Body weight 124.45 kg [facility] 04-09-2025 10:22-0400 Diastolic blood pressure 86 mm[Hg] [facility] 04-09-2025 10:22-0400 Heart rate 92 /min [facility] 04-09-2025 10:22-0400 Respiratory rate 12 /min [facility] 04-09-2025 10:22-0400 SaO2% (BldA) [Mass fraction] 98 % [facility] 04-09-2025 10:22-0400 Systolic blood pressure 159 mm[Hg] [facility] 03-20-2025 13:29-0400 Body height 152.4 cm Robert Ball DO Work Phone: [facility] 03-20-2025 13:29-0400 Body mass index (BMI) [Ratio] 53.6 kg/m2 Robert Ball DO Work Phone: [facility] 03-20-2025 13:29-0400 Body weight 124.73 kg Robert Ball DO Work Phone: [facility] 03-20-2025 13:29-0400 Diastolic blood pressure 80 mm[Hg] Robert Ball DO Work Phone: [facility] 03-20-2025 13:29-0400 Heart rate 88 /min Robert Ball DO Work Phone: [facility] 03-20-2025 13:29-0400 SaO2% (BldA) [Mass fraction] 97 % Robert Ball DO Work Phone: [facility] 03-20-2025 13:29-0400 Systolic blood pressure 116 mm[Hg] Robert Ball DO Work Phone: [facility] 02-26-2025 10:38-0400 Diastolic blood pressure 90 mm[Hg] Robert Ball DO Work Phone: [facility] 02-26-2025 10:38-0400 Heart rate 73 /min Robert Ball DO Work Phone: [facility] 02-26-2025 10:38-0400 SaO2% (BldA) [Mass fraction] 99 % Robert Ball DO Work Phone: [facility] 02-26-2025 10:38-0400 Systolic blood pressure 140 mm[Hg] Robert Ball DO Work Phone: [facility] 01-16-2025 13:05-0500 Diastolic blood pressure 98 mm[Hg] Robert Ball DO Work Phone: [facility] 01-16-2025 13:05-0500 Heart rate 76 /min Robert Ball DO Work Phone: [facility] 01-16-2025 13:05-0500 SaO2% (BldA) [Mass fraction] 98 % Robert Ball DO Work Phone: [facility] 01-16-2025 13:05-0500 Systolic blood pressure 150 mm[Hg] Robert Ball DO Work Phone: [facility] 01-04-2025 11:57-0500 Body height 162.56 cm Robert Ball DO Work Phone: [facility] 01-04-2025 11:57-0500 Body mass index (BMI) [Ratio] 48.1 kg/m2 Robert Ball DO Work Phone: [facility] 01-04-2025 11:57-0500 Body weight 127.14 kg Robert Ball DO Work Phone: [facility] 01-04-2025 11:57-0500 Diastolic blood pressure 77 mm[Hg] Robert Ball DO Work Phone: [facility] 01-04-2025 11:57-0500 Heart rate 96 /min Robert Ball DO Work Phone: [facility] 01-04-2025 11:57-0500 Respiratory rate 12 /min Robert Ball DO Work Phone: [facility] 01-04-2025 11:57-0500 Systolic blood pressure 169 mm[Hg] Robert Ball DO Work Phone: [facility] 12-26-2024 12:01-0500 Diastolic blood pressure 75 mm[Hg] Robert Ball DO Work Phone: [facility] 12-26-2024 12:01-0500 Heart rate 70 /min Robert Ball DO Work Phone: [facility] 12-26-2024 12:01-0500 Respiratory rate 16 /min Robert Ball DO Work Phone: [facility] 12-26-2024 12:01-0500 SaO2% (BldA) [Mass fraction] 96 % Robert Ball DO Work Phone: [facility] 12-26-2024 12:01-0500 Systolic blood pressure 133 mm[Hg] Robert Ball DO Work Phone: [facility] 12-26-2024 11:26-0500 Inhaled oxygen flow rate 4 L/min Robert Ball DO Work Phone: [facility] 12-26-2024 09:15-0500 Body height 152.4 cm Robert Ball DO Work Phone: [facility] 12-26-2024 09:15-0500 Body weight 122.46 kg Robert Ball DO Work Phone: [facility] 12-12-2024 13:50-0500 Body height 162.56 cm [facility] 12-12-2024 13:50-0500 Body mass index (BMI) [Ratio] 48.1 kg/m2 [facility] 12-12-2024 13:50-0500 Body weight 127.26 kg [facility] 12-12-2024 13:50-0500 Diastolic blood pressure 72 mm[Hg] [facility] 12-12-2024 13:50-0500 Heart rate 89 /min [facility] 12-12-2024 13:50-0500 Respiratory rate 16 /min [facility] 12-12-2024 13:50-0500 Systolic blood pressure 134 mm[Hg] [facility] 12-10-2024 13:38-0500 Body height 162.56 cm [facility] 12-10-2024 13:38-0500 Body mass index (BMI) [Ratio] 48.2 kg/m2 [facility] 12-10-2024 13:38-0500 Body weight 127.45 kg [facility] 12-10-2024 13:38-0500 Diastolic blood pressure 70 mm[Hg] [facility] 12-10-2024 13:38-0500 Heart rate 88 /min [facility] 12-10-2024 13:38-0500 SaO2% (BldA) [Mass fraction] 98 % [facility] 12-10-2024 13:38-0500 Systolic blood pressure 136 mm[Hg] [facility] 12-07-2024 11:02-0500 Body height 162.56 cm [facility] 12-07-2024 11:02-0500 Body mass index (BMI) [Ratio] 48.3 kg/m2 [facility] 12-07-2024 11:02-0500 Body weight 127.68 kg [facility] 12-07-2024 11:02-0500 Diastolic blood pressure 87 mm[Hg] [facility] 12-07-2024 11:02-0500 Heart rate 96 /min [facility] 12-07-2024 11:02-0500 Respiratory rate 12 /min [facility] 12-07-2024 11:02-0500 Systolic blood pressure 177 mm[Hg] [facility] 09-04-2024 09:46-0400 Diastolic blood pressure 80 mm[Hg] DO Robert Ball Work Phone: [facility] 09-04-2024 09:46-0400 Heart rate 73 /min DO Robert Ball Work Phone: [facility] 09-04-2024 09:46-0400 SaO2% (BldA) [Mass fraction] 97 % DO Robert Ball Work Phone: [facility] 09-04-2024 09:46-0400 Systolic blood pressure 130 mm[Hg] DO Robert Ball Work Phone: [facility] 08-24-2024 11:03-0400 Heart rate 97 /min DO Robert Ball Work Phone: [facility] 08-24-2024 11:03-0400 SaO2% (BldA) [Mass fraction] 96 % DO Robert Ball Work Phone: [facility] 08-10-2024 14:18-0400 Diastolic blood pressure 66 mm[Hg] DO Robert Ball Work Phone: [facility] 08-10-2024 14:18-0400 Heart rate 73 /min DO Robert Ball Work Phone: [facility] 08-10-2024 14:18-0400 Respiratory rate 16 /min DO Robert Ball Work Phone: [facility] 08-10-2024 14:18-0400 SaO2% (BldA) [Mass fraction] 98 % DO Robert Ball Work Phone: [facility] 08-10-2024 14:18-0400 Systolic blood pressure 124 mm[Hg] DO Robert Ball Work Phone: [facility] 08-10-2024 12:13-0400 Body height 152.4 cm DO Robert Ball Work Phone: [facility] 08-10-2024 12:13-0400 Body weight 120.2 kg DO Robert Ball Work Phone: [facility] 08-06-2024 10:49-0400 Body height 152.4 cm DO Robert Ball Work Phone: [facility] 08-06-2024 10:49-0400 Body mass index (BMI) [Ratio] 54.5 kg/m2 DO Robert Ball Work Phone: [facility] 08-06-2024 10:49-0400 Body weight 126.6 kg DO Robert Ball Work Phone: [facility] 08-06-2024 10:49-0400 Diastolic blood pressure 78 mm[Hg] DO Robert Ball Work Phone: [facility] 08-06-2024 10:49-0400 Heart rate 65 /min DO Robert Ball Work Phone: [facility] 08-06-2024 10:49-0400 Respiratory rate 12 /min DO Robert Ball Work Phone: [facility] 08-06-2024 10:49-0400 Systolic blood pressure 159 mm[Hg] DO Robert Ball Work Phone: [facility] 07-31-2024 11:13-0400 Diastolic blood pressure 80 mm[Hg] DO Robert Ball Work Phone: [facility] 07-31-2024 11:13-0400 Heart rate 71 /min DO Robert Ball Work Phone: [facility] 07-31-2024 11:13-0400 SaO2% (BldA) [Mass fraction] 97 % DO Robert Ball Work Phone: [facility] 07-31-2024 11:13-0400 Systolic blood pressure 132 mm[Hg] DO Robert Ball Work Phone: [facility] 05-28-2024 14:21-0400 Body height 152.4 cm DO Robert Ball Work Phone: [facility] 05-28-2024 14:21-0400 Body mass index (BMI) [Ratio] 52.1 kg/m2 DO Robert Ball Work Phone: [facility] 05-28-2024 14:21-0400 Body weight 121.1 kg DO Robert Ball Work Phone: [facility] 05-28-2024 14:21-0400 Diastolic blood pressure 70 mm[Hg] DO Robert Ball Work Phone: [facility] 05-28-2024 14:21-0400 Heart rate 68 /min DO Robert Ball Work Phone: [facility] 05-28-2024 14:21-0400 Respiratory rate 18 /min DO Robert Ball Work Phone: [facility] 05-28-2024 14:21-0400 SaO2% (BldA) [Mass fraction] 98 % DO Robert Ball Work Phone: [facility] 05-28-2024 14:21-0400 Systolic blood pressure 132 mm[Hg] DO Robert Ball Work Phone: [facility] 04-30-2024 15:05-0400 Diastolic blood pressure 70 mm[Hg] [facility] 04-30-2024 15:05-0400 Heart rate 98 /min [facility] 04-30-2024 15:05-0400 SaO2% (BldA) [Mass fraction] 97 % [facility] 04-30-2024 15:05-0400 Systolic blood pressure 126 mm[Hg] [facility] 03-29-2024 10:44-0400 Body height 152.4 cm [facility] 03-29-2024 10:44-0400 Body mass index (BMI) [Ratio] 53.6 kg/m2 [facility] 03-29-2024 10:44-0400 Body weight 124.45 kg [facility] 03-29-2024 10:44-0400 Diastolic blood pressure 71 mm[Hg] [facility] 03-29-2024 10:44-0400 Heart rate 75 /min [facility] 03-29-2024 10:44-0400 Respiratory rate 16 /min [facility] 03-29-2024 10:44-0400 Systolic blood pressure 116 mm[Hg] [facility] 02-15-2024 14:20-0400 Body height 152.4 cm DO Robert Ball Work Phone: [facility] 02-15-2024 14:20-0400 Body mass index (BMI) [Ratio] 53.1 kg/m2 DO Robert Ball Work Phone: [facility] 02-15-2024 14:20-0400 Body weight 123.37 kg DO Robert Ball Work Phone: [facility] 02-15-2024 14:20-0400 Diastolic blood pressure 65 mm[Hg] DO Robert Ball Work Phone: [facility] 02-15-2024 14:20-0400 Heart rate 77 /min DO Robert Ball Work Phone: [facility] 02-15-2024 14:20-0400 Respiratory rate 16 /min DO Robert Ball Work Phone: [facility] 02-15-2024 14:20-0400 Systolic blood pressure 170 mm[Hg] DO Robert Ball Work Phone: [facility] 09-21-2023 14:00-0400 Body height 152.4 cm Robert Ball Other [facility] Other 09-21-2023 14:00-0400 Body mass index (BMI) [Ratio] 52.69 kg/m2 Robert Ball Other [facility] Other 09-21-2023 14:00-0400 Body weight 122.38 kg Robert Ball Other [facility] Other 09-21-2023 14:00-0400 Diastolic blood pressure 70 mm[Hg] Robert Ball Other [facility] Other 09-21-2023 14:00-0400 Respiratory rate 20 /min Robert Ball Other [facility] Other 09-21-2023 14:00-0400 Systolic blood pressure 150 mm[Hg] Robert Ball Other [facility] Other 08-15-2023 15:00-0400 Body height 152.4 cm Robert Ball Other [facility] Other 08-15-2023 15:00-0400 Body mass index (BMI) [Ratio] 54.33 kg/m2 Robert Ball Other [facility] Other 08-15-2023 15:00-0400 Body weight 126.19 kg Robert Ball Other [facility] Other 08-15-2023 15:00-0400 Diastolic blood pressure 79 mm[Hg] Robert Ball Other [facility] Other 08-15-2023 15:00-0400 Respiratory rate 16 /min Robert Ball Other [facility] Other 08-15-2023 15:00-0400 Systolic blood pressure 147 mm[Hg] Robert Ball Other [facility] Other 07-11-2023 11:00-0400 Body height 152.4 cm Robert Ball Other [facility] Other 07-11-2023 11:00-0400 Body mass index (BMI) [Ratio] 55.26 kg/m2 Robert Ball Other [facility] Other 07-11-2023 11:00-0400 Body weight 128.37 kg Robert Ball Other [facility] Other 07-11-2023 11:00-0400 Diastolic blood pressure 90 mm[Hg] Robert Ball Other [facility] Other 07-11-2023 11:00-0400 Respiratory rate 16 /min Robert Ball Other [facility] Other 07-11-2023 11:00-0400 Systolic blood pressure 140 mm[Hg] Robert Ball Other [facility] Other 05-25-2023 14:00-0400 Body height 152.4 cm Robert Ball Other [facility] Other 05-25-2023 14:00-0400 Body mass index (BMI) [Ratio] 54.25 kg/m2 Robert Ball Other [facility] Other 05-25-2023 14:00-0400 Body weight 126.01 kg Robert Ball Other [facility] Other 05-25-2023 14:00-0400 Diastolic blood pressure 76 mm[Hg] Robert Ball Other [facility] Other 05-25-2023 14:00-0400 Respiratory rate 16 /min Robert Ball Other [facility] Other 05-25-2023 14:00-0400 Systolic blood pressure 151 mm[Hg] Robert Ball Other [facility] Other 04-08-2023 12:15-0400 Body height 152.4 cm Robert Ball Other [facility] Other 04-08-2023 12:15-0400 Body mass index (BMI) [Ratio] 53.84 kg/m2 Robert Ball Other [facility] Other 04-08-2023 12:15-0400 Body weight 125.06 kg Robert Ball Other [facility] Other 04-08-2023 12:15-0400 Diastolic blood pressure 80 mm[Hg] Robert Ball Other [facility] Other 04-08-2023 12:15-0400 Respiratory rate 12 /min Robert Ball Other [facility] Other 04-08-2023 12:15-0400 Systolic blood pressure 124 mm[Hg] Robert Ball Other [facility] Other 03-23-2023 14:30-0400 Body height 152.4 cm Robert Ball Other [facility] Other 03-23-2023 14:30-0400 Body mass index (BMI) [Ratio] 53.82 kg/m2 Robert Ball Other [facility] Other 03-23-2023 14:30-0400 Body weight 125.01 kg Robert Ball Other [facility] Other 03-23-2023 14:30-0400 Diastolic blood pressure 84 mm[Hg] Robert Ball Other [facility] Other 03-23-2023 14:30-0400 Respiratory rate 12 /min Robert Ball Other [facility] Other 03-23-2023 14:30-0400 Systolic blood pressure 122 mm[Hg] Robert Ball Other [facility] Other 03-02-2023 12:00-0400 Body height 152.4 cm Robert Ball Other [facility] Other 03-02-2023 12:00-0400 Body mass index (BMI) [Ratio] 54.01 kg/m2 Robert Ball Other [facility] Other 03-02-2023 12:00-0400 Body weight 125.47 kg Robert Ball Other [facility] Other 03-02-2023 12:00-0400 Diastolic blood pressure 72 mm[Hg] Robert Ball Other [facility] Other 03-02-2023 12:00-0400 Respiratory rate 12 /min Robert Ball Other [facility] Other 03-02-2023 12:00-0400 Systolic blood pressure 122 mm[Hg] Robert Ball Other [facility] Other 02-14-2023 14:15-0400 Body height 152.4 cm Michael Emelyn Other [facility] Other 02-14-2023 14:15-0400 SaO2% (BldA) [Mass fraction] 98 % Michael Emelyn Other [facility] Other 01-27-2023 15:00-0500 Body height 152.4 cm Michael Emelyn Other [facility] Other 01-27-2023 15:00-0500 Diastolic blood pressure 84 mm[Hg] Michael Emelyn Other [facility] Other 01-27-2023 15:00-0500 SaO2% (BldA) [Mass fraction] 98 % Michael Emelyn Other [facility] Other 01-27-2023 15:00-0500 Systolic blood pressure 126 mm[Hg] Michael Emelyn Other [facility] Other 12-31-2022 12:30-0500 Body height 152.4 cm Michael Emelyn Other [facility] Other 12-31-2022 12:30-0500 SaO2% (BldA) [Mass fraction] 96 % Michael Emelyn Other [facility] Other 12-27-2022 11:15-0500 Body height 152.4 cm Ivon Batista Other [facility] Other 12-27-2022 11:15-0500 Body mass index (BMI) [Ratio] 53.08 kg/m2 Ivon Batista Other [facility] Other 12-27-2022 11:15-0500 Body temperature 96 [degF] Ivon Batista Other [facility] Other 12-27-2022 11:15-0500 Body weight 123.29 kg Ivon Batista Other [facility] Other 12-27-2022 11:15-0500 Diastolic blood pressure 92 mm[Hg] Ivon Batista Other [facility] Other 12-27-2022 11:15-0500 SaO2% (BldA) [Mass fraction] 96 % Ivon Batista Other [facility] Other 12-27-2022 11:15-0500 Systolic blood pressure 156 mm[Hg] Ivon Batista Other [facility] Other 12-02-2022 11:45-0500 Body height 152.4 cm Ursula Velarde Other [facility] Other 12-02-2022 11:45-0500 Diastolic blood pressure 80 mm[Hg] Ursula Velarde Other [facility] Other 12-02-2022 11:45-0500 SaO2% (BldA) [Mass fraction] 97 % Ursula Velarde Other [facility] Other 12-02-2022 11:45-0500 Systolic blood pressure 126 mm[Hg] Ursula Velarde Other [facility] Other 11-02-2022 12:15-0500 Body height 152.4 cm Michael Dunaway Other [facility] Other 11-02-2022 12:15-0500 Diastolic blood pressure 80 mm[Hg] Michael Dunaway Other [facility] Other 11-02-2022 12:15-0500 SaO2% (BldA) [Mass fraction] 98 % Michael Dunaway Other [facility] Other 11-02-2022 12:15-0500 Systolic blood pressure 140 mm[Hg] Michael Dunaway Other [facility] Other 09-11-2022 11:55-0400 Body height 152.4 cm Kaitlynn Foy Other [facility] Other 09-11-2022 11:55-0400 Body mass index (BMI) [Ratio] 50.77 kg/m2 Kaitlynn Foy Other [facility] Other 09-11-2022 11:55-0400 Body temperature 96.8 [degF] Kaitlynn Foy Other [facility] Other 09-11-2022 11:55-0400 Body weight 117.94 kg Kaitlynn Foy Other [facility] Other 09-11-2022 11:55-0400 Respiratory rate 18 /min Kaitlynn Foy Other [facility] Other 09-11-2022 11:55-0400 SaO2% (BldA) [Mass fraction] 97 % Kaitlynn Foy Other [facility] Other 09-10-2022 12:30-0400 Body height 152.4 cm Michael Emelyn Other [facility] Other 09-10-2022 12:30-0400 Diastolic blood pressure 80 mm[Hg] Michael Emelyn Other [facility] Other 09-10-2022 12:30-0400 SaO2% (BldA) [Mass fraction] 99 % Michael Emelyn Other [facility] Other 09-10-2022 12:30-0400 Systolic blood pressure 120 mm[Hg] Michael Emelyn Other [facility] Other 07-29-2022 17:45-0400 Body height 152.4 cm Michael Emelyn Other [facility] Other 07-29-2022 17:45-0400 Diastolic blood pressure 76 mm[Hg] Michael Emelyn Other [facility] Other 07-29-2022 17:45-0400 SaO2% (BldA) [Mass fraction] 99 % Michael Emelyn Other [facility] Other 07-29-2022 17:45-0400 Systolic blood pressure 124 mm[Hg] Michael Emelyn Other [facility] Other 07-02-2022 13:00-0400 Body height 152.4 cm Michael Emelyn Other [facility] Other 07-02-2022 13:00-0400 Body mass index (BMI) [Ratio] 53.97 kg/m2 Michael Emelyn Other [facility] Other 07-02-2022 13:00-0400 Body weight 125.38 kg Michael Dunaway Other [facility] Other 07-02-2022 13:00-0400 Diastolic blood pressure 88 mm[Hg] Michael Dunaway Other [facility] Other 07-02-2022 13:00-0400 SaO2% (BldA) [Mass fraction] 97 % Michael Dunaway Other [facility] Other 07-02-2022 13:00-0400 Systolic blood pressure 142 mm[Hg] Michael Dunaway Other [facility] Other 06-23-2022 12:52-0400 Diastolic blood pressure 64 mm[Hg] DO Robert Ball Work Phone: [facility] 06-23-2022 12:52-0400 Heart rate 73 /min DO Robert Ball Work Phone: [facility] 06-23-2022 12:52-0400 Respiratory rate 20 /min DO Robert Ball Work Phone: [facility] 06-23-2022 12:52-0400 SaO2% (BldA) [Mass fraction] 97 % DO Robert Ball Work Phone: [facility] 06-23-2022 12:52-0400 Systolic blood pressure 132 mm[Hg] DO Robert Ball Work Phone: [facility] 06-23-2022 12:16-0400 Inhaled oxygen flow rate 3 L/min DO Robert Ball Work Phone: [facility] 06-23-2022 10:24-0400 Body height 152.4 cm DO Robert Ball Work Phone: [facility] 06-23-2022 10:24-0400 Body weight 123.37 kg DO Robert Ball Work Phone: [facility] 06-18-2022 12:15-0400 Body height 152.4 cm Michaelrancho Dunaway Other [facility] Other 06-18-2022 12:15-0400 Body mass index (BMI) [Ratio] 53.19 kg/m2 Michaelrancho Dunaway Other [facility] Other 06-18-2022 12:15-0400 Body weight 123.56 kg Michaelrancho Dunaway Other [facility] Other 06-18-2022 12:15-0400 Diastolic blood pressure 78 mm[Hg] Michaelrancho Dunaway Other [facility] Other 06-18-2022 12:15-0400 SaO2% (BldA) [Mass fraction] 96 % Michael Anthonyky Other [facility] Other 06-18-2022 12:15-0400 Systolic blood pressure 146 mm[Hg] Michaelrancho Dunaway Other [facility] Other 05-05-2022 06:31-0400 Body height 152.4 cm DO Robert Ball Work Phone: [facility] 05-05-2022 06:31-0400 Body mass index (BMI) [Ratio] 51.7 kg/m2 DO Robert Ball Work Phone: [facility] 05-05-2022 06:31-0400 Body weight 120.2 kg DO Robert Ball Work Phone: [facility] 03-11-2022 17:15-0400 Body height 152.4 cm Michael Dunaway Other [facility] Other 03-11-2022 17:15-0400 Diastolic blood pressure 70 mm[Hg] Michael Dunaway Other [facility] Other 03-11-2022 17:15-0400 SaO2% (BldA) [Mass fraction] 98 % Michael Dunaway Other [facility] Other 03-11-2022 17:15-0400 Systolic blood pressure 144 mm[Hg] Michael Dunaway Other [facility] Other 03-04-2022 09:59-0400 Blood Pressure Location Taye NILL [facility] [place] 03-04-2022 09:59-0400 Diastolic blood pressure 82 mm[Hg] Taye NILL [facility] [place] 03-04-2022 09:59-0400 Heart rate 72 /min Taye NILL [facility] [place] 03-04-2022 09:59-0400 Respiratory rate 20 /min Taye NILL [facility] [place] 03-04-2022 09:59-0400 Systolic blood pressure 160 mm[Hg] Taye NILL [facility] [place] 02-18-2022 17:00-0400 Body height 152.4 cm Michael Anthonyky Other [facility] Other 02-18-2022 17:00-0400 Body mass index (BMI) [Ratio] 53.51 kg/m2 Michael Dunaway Other [facility] Other 02-18-2022 17:00-0400 Body weight 124.29 kg Michael Dunaway Other [facility] Other 02-18-2022 17:00-0400 Diastolic blood pressure 70 mm[Hg] Michael Dunaway Other [facility] Other 02-18-2022 17:00-0400 SaO2% (BldA) [Mass fraction] 94 % Michael Dunaway Other [facility] Other 02-18-2022 17:00-0400 Systolic blood pressure 130 mm[Hg] Michael Dunaway Other [facility] Other 01-28-2022 17:00-0500 Body height 152.4 cm Usama Batista Other [facility] Other 01-28-2022 17:00-0500 Body mass index (BMI) [Ratio] 50.38 kg/m2 Usama Batista Other [facility] Other 01-28-2022 17:00-0500 Body weight 117.03 kg Usama Batista Other [facility] Other 11-07-2021 12:20-0500 Body height 152.4 cm Quita Simmons Other [facility] Other 11-07-2021 12:20-0500 Body mass index (BMI) [Ratio] 50.38 kg/m2 Quita Simmons Other [facility] Other 11-07-2021 12:20-0500 Body temperature 97.9 [degF] Quita Simmons Other [facility] Other 11-07-2021 12:20-0500 Body weight 117.03 kg Quita Simmons Other [facility] Other 11-07-2021 12:20-0500 Diastolic blood pressure 71 mm[Hg] Quita Simmons Other [facility] Other 11-07-2021 12:20-0500 Respiratory rate 18 /min Quita Simmons Other [facility] Other 11-07-2021 12:20-0500 SaO2% (BldA) [Mass fraction] 96 % Quita Simmons Other [facility] Other 11-07-2021 12:20-0500 Systolic blood pressure 159 mm[Hg] Quita Simmons Other [facility] Other Encounters Encounter Date Encounter Type Care Provider Facility Start: 06-18-2025 End: 06-18-2025 ambulatory Robert Vail DO Work Phone: [facility] Work Phone: Start: 06-18-2025 End: 06-18-2025 Patient encounter procedure Robert Genna DO -[facility] Work Phone: Start: 06-14-2025 End: 06-14-2025 ambulatory Robert Vail DO Work Phone: [facility] Work Phone: Start: 06-14-2025 End: 06-14-2025 Patient encounter procedure Morena Donato APRN 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 -[facility] Work Phone: Start: 05-16-2025 End: 05-16-2025 Patient encounter procedure Robert Vail DO -[facility] Work Phone: Start: 05-09-2025 End: 05-09-2025 Bamboo [...] 05-07-2025 End: 05-07-2025 Bamboo flowsheet Gabriel Xiao TECHNICAL LEAD [facility] Start: 05-07-2025 End: 05-07-2025 Bamboo flowsheet Gabriel Xiao TECHNICAL LEAD [facility] Start: 05-07-2025 End: 05-07-2025 ambulatory Gabriel Xiao TECHNICAL LEAD [facility] Comment on above: Low back pain, unspe cified back pain laterality, unspecified chronicity, unspecified whether sciatica present (Primary Dx) Start: 05-06-2025 End: 05-06-2025 ambulatory [facility] Work Phone: Start: 05-06-2025 End: 05-06-2025 Patient encounter procedure [facility] Phys[facility] Work Phone: Start: 05-06-2025 End: 05-06-2025 ambulatory [facility] Work Phone: Start: 05-06-2025 End: 05-06-2025 Patient encounter procedure [facility] Physician [facility] Work Phone: Start: 05-03-2025 End: [...] Start: 04-30-2025 End: 04-30-2025 Bamboo flowsyuly Hagen TECHNICAL LEAD [facility] Start: 04-30-2025 End: 04-30-2025 Bamboo flowsheet Gabriel Hagen TECHNICAL LEAD [facility] Start: 04-30-2025 End: 04-30-2025 ambulatory GABRIEL HAGEN [facility] Comment on above: Low back pain, unspe cified back pain laterality, unspecified chronicity, unspecified whether sciatica present (Primary Dx) Start: 04-26-2025 End: 04-26-2025 Bamboo flowsyuly Hagen TECHNICAL LEAD [facility] Start: 04-26-2025 End: 04-26-2025 Bamboo flowsheet Gabriel Hagen TECHNICAL LEAD [facility] Start: 04-26-2025 End: 04-26-2025 ambulatory Gabriel Hagen TECHNICAL LEAD [facility] Comment on above: Low back pain, unspe cified back pain laterality, unspecified chronicity, unspecified whether sciatica present (Primary Dx) Start: 04-23-2025 End: 04-23-2025 ambulatory Gabriel Hagen TECHNICAL LEAD [facility] Comment on above: Low back pain, unspe cified back pain laterality, unspecified chronicity, unspecified whether sciatica present (Primary Dx) Start: 04-23-2025 End: 04-23-2025 Bamboo flowsyuly Hagen TECHNICAL LEAD [facility] Start: 04-23-2025 End: 04-23-2025 Bamboo flowsheet Gabriel Hagen TECHNICAL LEAD [facility] Start: 04-19-2025 End: 04-19-2025 ambulatory JACQUI HARPER Not Available Start: 04-18-2025 Non-patient / Non-visit [facility] Work Phone: Start: 04-15-2025 End: 04-15-2025 Bamboo flowsyuly Harper PT [facility] Start: 04-15-2025 End: 04-15-2025 Bamboo flowsheet Jacqui Harper PT [facility] Start: 04-15-2025 End: 04-15-2025 Patient encounter procedure [facility] Physician [facility] Work Phone: Start: 04-15-2025 End: [...] (Primary Dx) Start: 04-09-2025 End: 04-09-2025 ambulatory [facility] Work Phone: Start: 04-09-2025 End: 04-09-2025 Patient encounter procedure [facility] Work Phone: Start: 04-04-2025 End: 04-04-2025 ambulatory Gabriel Hagen TECHNICAL LEAD [facility] Comment on above: Low back pain, unspe cified back pain laterality, unspecified chronicity, unspecified whether sciatica present (Primary Dx) Start: 04-04-2025 End: 04-04-2025 Bamboo flowsheet Gabriel Hagen TECHNICAL LEAD [facility] Start: 04-04-2025 End: 04-04-2025 Bamboo flowsheet Gabriel Hagen TECHNICAL LEAD [facility] Start: 04-01-2025 End: 04-01-2025 ambulatory Jacqui Harper PT [facility] Comment on above: Low back pain, unspe cified back pain laterality, unspecified chronicity, unspecified whether sciatica present (Primary Dx) Start: 03-28-2025 End: 03-28-2025 ambulatory [facility] Work Phone: Start: 03-28-2025 End: 03-28-2025 Patient encounter procedure [facility] Work Phone: Start: 03-21-2025 End: 03-21-2025 Bamboo flowsheet Jacqui Harper PT [facility] Start: 03-21-2025 End: 03-21-2025 Bamboo flowsheet Jaqcui Harper PT [facility] Start: 03-21-2025 End: 03-21-2025 ambulatory Jacqui Harper PT [facility] Comment on above: Low back pain, unspe cified back pain laterality, unspecified chronicity, unspecified whether sciatica present (Primary Dx) Start: 03-20-2025 End: 03-20-2025 ambulatory Robert Ball DO Work Phone: [facility] Work Phone: Start: 03-20-2025 End: 03-20-2025 Patient encounter procedure Robert Ball DO Work Phone: [facility] Work Phone: Start: 03-14-2025 End: 03-14-2025 [...] 03-12-2025 ambulatory Robert Ball DO Work Phone: [facility] Work Phone: Start: 03-12-2025 End: 03-12-2025 Patient encounter procedure Robert Ball DO Work Phone: [facility] Work Phone: Start: 03-12-2025 Non-patient / Non-visit Robert Ball DO Work Phone[facility] Start: 02-28-2025 End: 02-28-2025 Bamboo [...] 02-26-2025 ambulatory Robert Vail DO Work Phone: [facility] Work Phone: Start: 02-26-2025 End: 02-26-2025 Patient encounter procedure Robert Ball DO Work Phone: [facility] Physician [facility] Work Phone: Start: 02-25-2025 End: 02-25-2025 Bamboo flowsheet Tierney Kelbley TECHNICAL LEAD [facility] Start: 02-25-2025 End: 02-25-2025 Bamboo flowsheet Tierney Kelbley TECHNICAL LEAD [facility] Start: 02-25-2025 End: 02-25-2025 ambulatory Tierney Kelbley TECHNICAL LEAD [facility] Comment on above: Low back pain, unspe cified back pain laterality, unspecified chronicity, unspecified whether sciatica present (Primary Dx) Start: 02-21-2025 ambulatory Taye MUROL Facility:[facility] Start: 02-20-2025 End: 02-20-2025 Bamboo flowsheet Tierney Kelbley TECHNICAL LEAD [facility] Start: 02-20-2025 End: 02-20-2025 Bamboo flowsheet Tierney Kelbley TECHNICAL LEAD [facility] Start: 02-20-2025 End: 02-20-2025 ambulatory Tierney Schuster TECHNICAL LEAD [facility] Comment on above: Low back pain, unspe cified back pain laterality, unspecified chronicity, unspecified whether sciatica present (Primary Dx) Start: 02-14-2025 Non-patient / Non-visit Robert Vail DO Work Phone: [facility] Work Phone: Start: 02-14-2025 End: 02-14-2025 ambulatory Robert Vail DO Work Phone: [facility] Work Phone: Start: 02-14-2025 End: 02-14-2025 Patient encounter procedure Robert Vail DO Work Phone: [facility] Work Phone: Start: 02-13-2025 End: 02-13-2025 ambulatory GABRIEL HAGEN Not Available Start: 02-07-2025 End: 02-07-2025 Bamboo flowsheet Tierney Johnsony TECHNICAL LEAD [facility] Start: 02-07-2025 End: 02-07-2025 Bamboo flowsheet Tierney Johnsony TECHNICAL LEAD [facility] Start: 02-07-2025 End: 02-07-2025 ambulatory Tierney Schuster TECHNICAL LEAD [facility] Comment on above: Low [...] Start: 01-21-2025 End: 01-21-2025 ambulatory Gabriel Hagen TECHNICAL LEAD [facility] Comment on above: Low back pain, unspe cified back pain laterality, unspecified chronicity, unspecified whether sciatica present (Primary Dx) Start: 01-21-2025 End: 01-21-2025 Bamboo flowsheet Gabriel Hagen TECHNICAL LEAD [facility] Start: 01-21-2025 End: 01-21-2025 Bamboo flowsheet Gabriel Hagen TECHNICAL LEAD [facility] Start: 01-17-2025 End: 01-17-2025 Bamboo flowsheet Gabriel Hagen TECHNICAL LEAD [facility] Start: 01-17-2025 End: 01-17-2025 Bamboo flowsheet Gabriel Hagen TECHNICAL LEAD [facility] Start: 01-17-2025 End: 01-18-2025 ambulatory Gabriel Xiao TECHNICAL LEAD [facility] Comment on above: Low back pain, unspe cified back pain laterality, unspecified chronicity, unspecified whether sciatica present (Primary Dx) Start: 01-16-2025 End: 01-16-2025 ambulatory Robert Vail DO Work Phone: [facility] Work Phone: Start: 01-16-2025 End: 01-16-2025 Patient encounter procedure Robert Vail DO Work Phone: [facility] Work Phone: Start: 01-14-2025 End: [...] 01-04-2025 ambulatory Robert Ball DO Work Phone: [facility] Work Phone: Start: 01-04-2025 End: 01-04-2025 Patient encounter procedure Robert Ball DO Work Phone: [facility] Work Phone: Start: 12-26-2024 Non-patient / Non-visit Robert Ball DO Work Phone: [facility] Work Phone: Start: 12-26-2024 End: 12-26-2024 Admission to same day surgery center Robert Ball DO Work Phone: [facility] Work Phone: Start: 12-26-2024 End: 12-26-2024 ambulatory Robert Ball DO Work Phone: [facility] Work Phone: Start: 12-24-2024 End: 12-24-2024 ambulatory Robert Ball DO Work Phone: [facility] Work Phone: Start: 12-24-2024 End: 12-24-2024 Patient encounter procedure Robert Ball DO Work Phone: [facility] [place] Work Phone: Start: 12-12-2024 End: 12-12-[address] [facility] Work Phone: Start: 12-12-2024 End: 12-12-2024 Patient encounter procedure [facility] Physician [facility] Work Phone: Start: 12-12-2024 Non-patient / Non-visit [facility] Work Phone: Start: 12-10-2024 End: 12-10-[address] [facility] Work Phone: Start: 12-10-2024 End: 12-10-2024 Patient encounter procedure [facility] Work Phone: Start: 12-07-2024 End: 12-07-2024 ambulatory [facility] Work Phone: Start: 12-07-2024 End: 12-07-2024 Patient encounter procedure [facility] Work Phone: Start: 09-04-2024 End: 09-04-2024 ambulatory DO Robert Ball Work Phone: [facility] Work Phone: Start: 09-04-2024 End: 09-04-2024 Patient encounter procedure DO Robert Ball Work Phone: [facility] Work Phone: Start: 08-28-2024 End: 08-28-2024 ambulatory DO Robert Ball Work Phone: [facility] Work Phone: Start: 08-28-2024 End: 08-28-2024 Patient encounter procedure DO Robert Ball Work Phone: [facility] Physician [facility] Work Phone: Start: 08-28-2024 Non-patient / Non-visit DO Robert Ball Work Phone: [facility] Physician [facility] Work Phone: Start: 08-24-2024 End: 08-24-2024 ambulatory DO Robert Ball Work Phone: [facility] Work Phone: Start: 08-24-2024 End: 08-24-2024 Patient encounter procedure DO Robert Ball Work Phone: [facility] Work Phone: Start: 08-10-2024 Non-patient / Non-visit DO Robert Ball Work Phone: [facility] Work Phone: Start: 08-10-2024 End: 08-10-2024 Admission to same day surgery center DO Robert Ball Work Phone: [facility] Work Phone: Start: 08-10-2024 End: 08-10-2024 ambulatory DO Robert Ball Work Phone: [facility] Work Phone: Start: 08-09-2024 End: 08-09-2024 Patient encounter procedure DO Robert Ball Work Phone: [facility] [place] Work Phone: Start: 08-09-2024 End: 08-09-2024 ambulatory DO Robert Ball Work Phone: [facility] Work Phone: Start: 08-06-2024 End: 08-06-2024 ambulatory DO Robert Ball Work Phone: [facility] Work Phone: Start: 08-06-2024 End: 08-06-2024 Patient encounter procedure DO Robert Ball Work Phone: [facility] Work Phone: Start: 07-31-2024 End: 07-31-2024 ambulatory DO Robert Ball Work Phone: [facility] Work Phone: Start: 07-31-2024 End: 07-31-2024 Patient encounter procedure DO Robert Ball Work Phone: [facility] Work Phone: Start: 06-15-2024 End: 06-15-2024 Patient encounter procedure DO Robert Ball Work Phone: [facility] [place] Work Phone: Start: 06-15-2024 End: 06-15-2024 ambulatory DO Robert Ball Work Phone: [facility] Work Phone: Start: 05-28-2024 End: 05-28-2024 ambulatory DO Robert Ball Work Phone: [facility] Work Phone: Start: 05-28-2024 End: 05-28-2024 Patient encounter procedure DO Robert Ball Work Phone: [facility] Work Phone: Start: 05-16-2024 Non-patient / Non-visit DO Robert Ball Work Phone: [facility] Work Phone: Start: 05-10-2024 End: 05-10-2024 ambulatory DO Robert Ball Work Phone: [facility] Work Phone: Start: 05-10-2024 End: 05-10-2024 Patient encounter procedure DO Robert Ball Work Phone: [facility] Work [facility]: Start: 05-10-2024 Non-patient / Non-visit DO Robert Ball Work Phone: [facility] Physician [facility] Work Phone: Start: 05-09-2024 End: 05-09-2024 ambulatory DO Robert Ball Work Phone: [facility] Work Phone: Start: 05-09-2024 End: 05-09-2024 Patient encounter procedure DO Robert Ball Work Phone: [facility] [place] Work Phone: Start: 05-07-2024 End: 05-07-2024 Patient encounter procedure DO Robert Ball Work Phone: [facility] [place] Work Phone: Start: 05-07-2024 End: 05-07-2024 ambulatory DO Robert Ball Work Phone: [facility] Work Phone: Start: 04-30-2024 End: 04-30-[address] [facility] Work Phone: Start: 04-30-2024 End: 04-30-2024 Patient encounter procedure [facility] Work Phone: Start: 04-30-2024 Non-patient / Non-visit [facility] Work Phone: Start: 03-29-2024 End: 03-29-2024 Patient encounter procedure [facility] Work Phone: Start: 02-17-2024 Non-patient / Non-visit [facility] Work Phone: Start: 02-15-2024 End: 02-15-2024 ambulatory DO Robert Ball Work Phone: [facility] Work Phone: Start: 02-15-2024 End: 02-15-2024 Patient encounter procedure DO Robert Ball Work Phone: [facility] Work Phone: Start: 01-12-2024 End: 01-12-2024 ambulatory DO Robert Ball Work Phone: [facility] Work Phone: Start: 01-12-2024 End: 01-12-2024 Departed Referred DO Robert Ball Work Phone: [facility] [place] Work Phone: Start: 12-29-2023 End: 12-29-2023 ambulatory Robert Ball Other [facility] Other Start: 12-29-2023 Telephone encounter Robert Ball [facility] Start: 12-22-2023 End: 12-22-2023 ambulatory Robert Ball Other [facility] Other Start: 12-22-2023 Office outpatient visit 25 minutes Robert Ball [facility] Start: 12-09-2023 End: 12-09-2023 ambulatory Robert Ball Other [facility] Other Start: 12-09-2023 Office outpatient visit 15 minutes Robert Ball [facility] Start: 12-09-2023 Patient encounter procedure DO Robert Ball Work Phone: [facility]- Start: 11-11-2023 End: 11-11-2023 ambulatory Robert Ball Other [facility] Other Start: 11-11-2023 Telephone encounter Robert Ball [facility] Start: 11-10-2023 End: 11-10-2023 ambulatory Robert Ball Other [facility] Other Start: 11-10-2023 Telephone encounter Robert Ball [facility] Start: 11-04-2023 End: 11-04-2023 ambulatory Robert Ball Other [facility] Other Start: 11-04-2023 Telephone encounter Robert Ball [facility] Start: 10-19-2023 End: 10-19-2023 ambulatory Robert Ball Other [facility] Other Start: 10-19-2023 Telephone encounter Robert Ball [facility] Start: 09-21-2023 End: 09-21-2023 ambulatory Robert Ball Other [facility] Other Start: 09-21-2023 Office outpatient visit 25 minutes Robert Ball [facility] Start: 09-08-2023 End: 09-08-2023 ambulatory Robert Ball Other [facility] Other Start: 09-08-2023 Telephone encounter Robert Ball [facility] Start: 08-29-2023 End: 08-29-2023 ambulatory Robert Vail Other [facility] Other Start: 08-29-2023 Telephone encounter Robert Genna [facility] Start: 08-16-2023 End: 08-16-2023 ambulatory Robert Ball Other [facility] Other Start: 08-16-2023 Telephone encounter Robert Ball [facility] Start: 08-15-2023 End: 08-15-2023 ambulatory Robert Ball Other [facility] Other Start: 08-15-2023 Transitional care manage srvc 14 day discharge Robert Vail [facility] Start: 07-25-2023 End: 07-25-2023 ambulatory Robert Ball Other [facility] Other Start: 07-25-2023 Telephone encounter Robert Ball [facility] Start: 07-21-2023 End: 07-21-2023 ambulatory Robert Ball Other [facility] Other Start: 07-21-2023 Telephone encounter Robert Ball [facility] Start: 07-19-2023 End: 07-19-2023 ambulatory Robert Ball Other [facility] Other Start: 07-19-2023 Telephone encounter Robert Ball [facility] Start: 07-11-2023 End: 07-11-2023 ambulatory Robert Ball Other [facility] Other Start: 07-11-2023 Office outpatient visit 25 minutes Robert Ball [facility] Start: 05-25-2023 End: 05-25-2023 ambulatory Robert Ball Other [facility] Other Start: 05-25-2023 Office outpatient visit 15 minutes Robert Ball [facility] Start: 04-26-2023 End: 04-26-2023 ambulatory Robert Ball Other [facility] Other Start: 04-26-2023 Telephone encounter Robert Vail [facility] Start: 04-08-2023 End: 04-08-2023 ambulatory Robert Genna Other [facility] Other Start: 04-08-2023 Office outpatient visit 15 minutes Robert Vail [facility] Start: 04-07-2023 End: 04-08-[address] ROBERT VAIL Facility: Start: 03-23-2023 End: 03-23-2023 ambulatory Robert Vail Other [facility] Other Start: 03-23-2023 Office outpatient visit 15 minutes Robert Vail [facility] [facility] Start: 03-16-2023 End: 03-16-2023 ambulatory Robert Vail Other [facility] Other Start: 03-16-2023 Telephone encounter Robert aVil [facility] Start: 03-14-2023 End: 03-15-[address] ROBERT VAIL [facility] [place] Other Start: 03-14-2023 Telephone encounter Robert Vail [facility] Start: 03-10-2023 End: 03-10-2023 ambulatory Robert Vail Other [facility] Other Start: 03-10-2023 Office outpatient visit 15 minutes Robert Vail [facility] Start: 03-10-2023 Telephone encounter Robert Vail [facility] Start: 03-02-2023 End: 03-02-2023 ambulatory Robert Vail Other [facility] Other Start: 03-02-2023 Patient encounter procedure Robert Genna [facility] Start: 02-14-2023 End: 02-14-2023 ambulatory Robert Vail Other [facility] Other Start: 02-14-2023 Office outpatient visit 25 minutes Michael Emelyn [facility] Start: 02-14-2023 Telephone encounter Robert Vail [facility] Start: 02-03-2023 (PROC) PROCEDURE Michael Ramírez [facility] Start: 02-03-2023 End: 02-03-2023 ambulatory Michael Dunaway Other [facility] Other Start: 01-27-2023 End: 01-27-2023 ambulatory Michael Dunaway Other [facility] Other Start: 01-27-2023 Follow-up encounter Michael Dunaway [facility] Start: 01-19-2023 End: 01-19-2023 ambulatory Robert Vail Other [facility] Other Start: 01-19-2023 Telephone encounter Robert ALVES [facility] Start: 01-04-2023 (PROC) PROCEDURE Michaelrancho Ramírez [facility] Start: 01-04-2023 End: 01-04-2023 ambulatory Michael Dunaway Other [facility] Other Start: 12-31-2022 End: 12-31-2022 ambulatory Michael Dunaway Other [facility] Other Start: 12-31-2022 Office outpatient visit 25 minutes Michael Dunaway [facility] Start: 12-27-2022 End: 12-27-2022 ambulatory Ivon Batista Other [facility] Other Start: 12-27-2022 Office outpatient visit 15 minutes Ivon Batista [facility] Start: 12-02-2022 End: 12-02-2022 ambulatory Ursula Velarde Other [facility] Other Start: 12-02-2022 Office outpatient visit 15 minutes Ursula Velarde [facility] Start: 11-18-2022 (PROC) PROCEDURE Michael Ramírez [facility] Start: 11-18-2022 End: 11-18-2022 ambulatory Michael Dunaway Other [facility] Other Start: 11-03-2022 Pre-procedure evaluation check Robert Vail Other [facility] Other Start: 11-02-2022 End: 11-02-2022 ambulatory Michael Dunaway Other [facility] Other Start: 11-02-2022 Office outpatient visit 25 minutes Michaelrancho Dunaway [facility] Start: 10-26-2022 (Procedure) Short Michael Dunaway [facility] Start: 10-26-2022 End: 10-26-2022 ambulatory Michael Dunaway Other [facility] Other Start: 09-11-2022 End: 09-11-2022 ambulatory Kaitlynn Foy Other [facility] Other Start: 09-11-2022 Office outpatient visit 25 minutes Kaitlynn Foy [facility] Start: 09-10-2022 End: 09-10-2022 ambulatory Michael Dunaway Other [facility] Other Start: 09-10-2022 Office outpatient visit 15 minutes Michael Dunaway [facility] Start: 08-24-2022 (Procedure) Short Michael Dunaway [facility] Start: 08-24-2022 End: 08-24-2022 ambulatory Michael Dunaway Other [facility] Other Start: 08-03-2022 (Procedure) Short Michael Dunaway [facility] Start: 08-03-2022 End: 08-03-2022 ambulatory Michael Dunaway Other [facility] Other Start: 07-29-2022 End: 07-29-2022 ambulatory Michael Dunaway Other [facility] Other Start: 07-29-2022 Office outpatient visit 15 minutes Michael Emelyn [facility] Start: 07-25-[address] ROBERT VAIL Facili ty:H1 Start: 07-22-2022 (Procedure) Short Michael Dunaway [facility] Start: 07-22-2022 End: 07-22-2022 ambulatory Michael Emelyn Other [facility] [employer] [employer] [facility] Other Start: 07-06-2022 End: 07-07-[address] ROBERT VAIL Facility:[facility]1 Start: 07-02-2022 End: 07-02-2022 ambulatory Michael Emelyn Other [place] [facility] Other Start: 07-02-2022 Office outpatient visit 25 minutes Michael Emelyn [facility] Start: 06-23-2022 (Procedure) Short Michael Dunaway [facility] Start: 06-23-2022 End: 06-23-2022 ambulatory Michael Dunaway Other [facility] Other Start: 06-23-2022 End: 06-23-2022 Admission to same day surgery center DO Robert Vail [facility] Start: 06-18-2022 End: 06-18-2022 ambulatory Michael Dunaway Other [facility] Other Start: 06-18-2022 Office outpatient visit 25 minutes Michael Emelyn [facility] Start: 05-05-2022 End: 05-05-2022 Patient encounter procedure DO Robert Vail Work Phone: [facility] Start: 04-30-2022 End: 05-01-[address] ROBERT VAIL Facility:[facility]1 Start: 04-13-2022 End: 04-14-[address] ROBERT VAIL Facility:[facility] Start: 04-01-2022 End: 04-01-2022 ambulatory Maico Lloyd Other [facility] Other Start: 04-01-2022 Telephone encounter Maico Lloyd [facility] Start: 03-19-2022 End: 03-19-2022 ambulatory Michael Dunaway Other [facility] Other Start: 03-19-2022 Telephone encounter Michael Dunaway [facility] Start: 03-11-2022 End: 03-11-2022 ambulatory Michael Dunaway Other [facility] Other Start: 03-11-2022 Office outpatient visit 25 minutes Michaelrancho Dunaway [facility] Start: 03-04-2022 End: 03-04-2022 Patient encounter procedure Taye VAZQUEZ [facility] [place] Start: 02-25-2022 (Procedure) Short Michael Dunaway [facility] Start: 02-25-2022 End: 02-25-2022 ambulatory Michael Dunaway Other [facility] Other Start: 02-18-2022 End: 02-18-2022 ambulatory Michael Dunaway Other [facility] Other Start: 02-18-2022 Office outpatient ne w 45 minutes Michael Emelyn [facility] Start: 01-28-2022 End: 01-28-2022 ambulatory Usama Batista Other [facility] Other Start: 01-28-2022 Office outpatient ne w 45 minutes Usama Batista [facility] Start: 01-20-2022 Adult health examination Robert Vail Other [facility] Other Start: 11-07-2021 End: 11-07-2021 ambulatory Quita Iris Other [facility] Other Start: 11-07-2021 Office outpatient ne w [...] Visit [facility] [address] [place] [address] Jr. Fernando Silva, DO [address] [facility] [address] [place] [address] [facility] Start: 05-09-2025 End: 05-09-2025 ambulatory 05/09/2025 10:30 AM EDT Treatment [facility] [address] [facility] [address] [place] [address] Jacqui Harper, PT [facility] Start: 05-07-2025 End: 05-07-2025 ambulatory 05/07/2025 12:30 PM EDT Treatment [facility] [address] [facility] [address] [place] [address] Gabriel Hagen, TECHNICAL LEAD [facility] Start: 05-03-2025 End: 05-03-2025 ambulatory [facility] Start: 04-30-2025 End: 04-30-2025 ambulatory [facility] Start: 04-26-2025 End: 04-26-2025 ambulatory 04/26/2025 9:00 AM EDT Treatment [facility] [address] [facility] [address] [place] [address] Gabriel Hagen, TECHNICAL LEAD [facility] Start: 04-23-2025 End: 04-23-2025 ambulatory 04/23/2025 4:30 PM EDT Treatment [facility] [address] [facility] [address] [place] [address] Gabriel Hagen, TECHNICAL LEAD Low back pain, unspecified back pain laterality, unspecified chronicity, unspecified whether sciatica present (Primary Dx) [facility] Comment on above: Low back pain, unspe cified back pain laterality, unspecified chronicity, unspecified whether sciatica present (Primary Dx) Start: 04-17-2025 End: 04-17-2025 ambulatory 04/17/2025 11:00 AM EDT Treatment [facility] [address] [facility] [address] [place] [address] Jacqui Harper, PT [facility] Start: 04-15-2025 End: 04-15-2025 ambulatory 04/15/2025 9:30 AM EDT Treatment [facility] [address] [facility] [address] [place] [address] Jacqui Harper, PT [facility] Start: 04-11-2025 End: 04-11-2025 ambulatory 04/11/2025 9:00 AM EDT Treatment [facility] [address] [facility] [address] [place] [address] Jacqui Harper, PT [facility] Start: 04-08-2025 End: 04-08-2025 ambulatory 04/08/2025 1:00 PM EDT Treatment [facility] [address] [facility] [address] [place] [address] Gabriel Hagen, TECHNICAL LEAD [facility] Start: 04-01-2025 End: 04-01-2025 ambulatory 04/01/2025 9:30 AM EDT Treatment [facility] [address] [facility] [address] [place] [address] Jacqui Harper, PT [facility] Start: 03-21-2025 End: 03-21-2025 ambulatory 03/21/2025 8:30 AM EDT Treatment [facility] [address] [facility] [address] [place] [address] Jacqui Harper, PT [facility] Start: 03-14-2025 End: 03-14-2025 ambulatory [facility] Comment on above: Arrived Start: 02-28-2025 End: 02-28-2025 ambulatory [facility] Start: 02-25-2025 End: 02-25-2025 ambulatory 02/25/2025 12:00 PM EDT Treatment [facility] [address] [facility] [address] [place] [address] Tierney Schuster, TECHNICAL LEAD [facility] Start: 02-20-2025 End: 02-20-2025 ambulatory 02/20/2025 1:00 PM EDT Treatment [facility] [address] [facility] [address] [place] [address] Tierney Schuster, TECHNICAL LEAD Arrived [facility] Comment on above: Arrived Start: 02-13-2025 End: 02-13-2025 ambulatory 02/13/2025 1:00 PM EDT Treatment [facility] [address] [facility] [address] [place] [address] Gabriel Hagen, TECHNICAL LEAD [facility] Start: 02-11-2025 End: 02-11-2025 ambulatory 02/11/2025 12:30 PM EDT Treatment [facility] [address] [facility] [address] [place] [address] Amparo Giron, TECHNICAL LEAD [facility] Start: 01-31-2025 End: 01-31-2025 ambulatory 01/31/2025 12:00 PM EST Treatment [facility] [address] [facility] [address] [place] [address] Gabriel Hagen, TECHNICAL LEAD [facility] Start: 01-28-2025 End: 01-28-2025 ambulatory 01/28/2025 12:00 PM EST Treatment [facility] [address] [facility] [address] [place] [address] Jacqui Harper, PT [facility] Start: [...] Evaluation [facility] [address] [facility] [address] [place] [address] Jacqui Harper, PT Arrived [facility] Comment on above: Arrived Start: 12-26-2024 [facility] Start: 08-10-2024 [facility] Start: 01-12-2024 Superficial Wound Culture Superficial Wound Culture [facility] Start: 06-23-2022 [facility] Work Phone: Start: 05-05-2022 [facility] Work Phone: Start: 07-29-2018 Pneumococcal Vaccine : 65+ Years (2 of 2 - PCV) Pneumococcal Vaccine: 65+ Years (2 of 2 - PCV) [facility] aPTT in Platelet poo r plasma by Coagulation assay [facility] Comprehensive metabo lic 1999 panel - Serum or Plasma [facility] Comprehensive metabo lic 1999 panel - Serum or Plasma [facility] Microalbumin [Mass/volume] in Urine [facility] MR Lumbar spine WO contrast [facility] Patient Education [facility] Work Phone: Patient referral [facility] Work Phone: XR Lumbar spine 4 Views [facility] XR Pelvis 1 or 2 Views [facility] XR Sacrum and Coccyx GE 2 Views [facility] [place] Immunizations Immunization Date Immunization Notes Care Provider Fa fritz 08-06-2024 influenza, high dose seasonal, preservative-free DO Robert Vail Work Phone: [facility] 08-15-2023 influenza, high dose seasonal, preservative-free Robert Vail Other [facility] Other 08-15-2023 influenza virus vaccine, unspecified formulation DO Robert Vail Work Phone: [facility] 10-13-2022 Influenza vaccine, quadrivalent, adjuvanted DO Robert Vail Work Phone: [facility] 10-13-2022 influenza virus vaccine, split virus (incl. purified surface antigen) Robert Vail Other [facility] Other 10-13-2022 influenza virus vaccine, unspecified formulation DO Robert Vail Work Phone: [facility] 10-08-2022 influenza virus vaccine, unspecified formulation DO Robert Vail Work Phone: [facility] 10-08-2022 influenza, high dose seasonal, preservative-free Robert Vail Other [facility] Other 10-05-2021 COVID-19 Vaccine Pfi zer - Documentation Purposes Only Robert Vail Other [facility] 09-02-2021 influenza virus vaccine, split virus (incl. purified surface antigen) Robert Vail Other [facility] Other 09-02-2021 influenza virus vaccine, unspecified formulation DO [employer] Work Phone: [facility] 02-11-2021 COVID-19 Vaccine Pfi zer - Documentation Purposes Only Robert Vail Other [facility] 01-21-2021 COVID-19 Vaccine Pfi zer - Documentation Purposes Only Robert Vail Other [facility] 08-25-2020 influenza virus vaccine, split virus (incl. purified surface antigen) Robert Vail Other [facility] Other 08-25-2020 influenza virus vaccine, unspecified formulation DO [employer] Work Phone: [facility] 08-30-2019 influenza virus vaccine, split virus (incl. purified surface antigen) Robert Vail Other [facility] Other 08-30-2019 influenza virus vaccine, unspecified formulation DO Robert Ztail Work Phone: [facility] 10-11-2018 influenza, injectabl e, quadrivalent, preservative free DO [employer] Work Phone: [facility] 09-18-2018 influenza virus vaccine, split virus (incl. purified surface antigen) Robert Vail Other [facility] Other 09-18-2018 influenza virus vaccine, unspecified formulation DO [employer] Work Phone: [facility] 09-18-2018 Seasonal trivalent influenza vaccine, adjuvanted, preservative free DO Robert Ztail Work Phone: [facility] 08-17-2017 influenza virus vaccine, split virus (incl. purified surface antigen) Robert Vail Other [facility] Other 08-17-2017 influenza virus vaccine, unspecified formulation DO Robert Ztail Work Phone: [facility] 08-17-2017 influenza, high dose seasonal, preservative-free DO Robert Ztail Work Phone: [facility] 07-29-2017 pneumococcal polysaccharide vaccine, 23 valent Robert Vail Other [facility] 02-14-2017 influenza virus vaccine, split virus (incl. purified surface antigen) Robert Vali Other [facility] Other 02-14-2017 influenza virus vaccine, unspecified formulation DO [employer] Work Phone: [facility] 10-07-2015 pneumococcal conjuga te vaccine, 13 valent Robert Vail Other [facility] 08-19-2015 influenza virus vaccine, split virus (incl. purified surface antigen) Robert Ztail Other [facility] Other 08-19-2015 influenza virus vaccine, unspecified formulation DO [employer] Work Phone: [facility] 09-19-2014 tetanus and diphther ia toxoids, adsorbed, preservative free, for adult use (5 Lf of tetanus toxoid and 2 Lf of diphtheria toxoid) Robert Ztail Other [facility] 08-17-2013 tetanus and diphther ia toxoids, adsorbed, preservative free, for adult use (5 Lf of tetanus toxoid and 2 Lf of diphtheria toxoid) [employer] Other [facility] 08-02-2012 tetanus and diphther ia toxoids, adsorbed, preservative free, for adult use (5 Lf of tetanus toxoid and 2 Lf of diphtheria toxoid) Robert Vail Other [facility] 06-04-2011 zoster vaccine, live DO Benj anand Vail Work Phone: [facility] 07-03-2009 pneumococcal polysaccharide vaccine, 23 valent Robert Vail Other [facility] Payers Date Payer Category Payer Unknown [id number] 2024 Self-pay [id number] 2010 Private Health Insurance [id number]. [id number] 2010 Unknown [id number] 2006 Medicare MEDICARE [id number] 1959 Medicare [id number] .16.840.1.245430.19 1959 Self-pay [id number] 1959 Unknown [id number] 2.16.840.1.669540.19 1941 Unknown [id number] .16840.1.925429.3.579. 2.593 1941 Unknown [id number] 2.16840.1.294440.3.579. 2.593 1941 Unknown [id number] 2.16.840.1.363662.3.579. 2.593 1941 Unknown [id number] 2.16.840.1.975100.3.579. 2.593 1941 Unknown [id number] 2.16.840.1.186753.3.579. 2.593 1941 Unknown [id number] 2.16.840.1.252991.3.579. 2.593 1941 Unknown [id number] 2.16.840.1.645064.3.579. 2.727 1941 Unknown [id number] 2.16.840.1.995418.3.579. 2.727 1941 Unknown [id number] 2.16.840.1.850128.3.579. 2.727 1941 Unknown [id number] 2.16.840.1.794566.3.579. 2.1259 1941 Unknown [id number] 2.16.840.1.944898.3.579. 2.1259 1941 Unknown [id number] 2.16.840.1.886484.3.579. 2.1259 1941 Unknown [id number] 2.16.840.1.348748.3.579. 2.1259 1941 Unknown [id number] 2.16.840.1.276384.3.579. 2.1259 1941 Unknown [id number] 2.16.840.1.833037.3.579. 2.1259 1941 Unknown [id number] 2.16.840.1.272739.3.579. 2.1259 1941 Unknown [id number] 2.16.840.1.063690.3.579. 2.1259 1941 Unknown [id number] 2.16.840.1.918279.3.579. 2.1259 1941 Unknown [id number] 2.16.840.1.895994.3.579. 2.9 1941 Unknown [id number] 2.16.840.1.760100.3.579. 2.125 1941 Unknown [id number] 2.16.840.1.602909.3.579. 2.1258 1941 Unknown [id number] 2.16.840.1.512134.3.579. 2.125 1941 Unknown [id number] 2.16.840.1.313420.3.579. 2.1258 1941 Unknown [id number] 2.16.840.1.471504.3.579. 2.1258 1941 Unknown [id number] 2.16.840.1.586609.3.579. 2.1258 1941 Unknown [id number] 2.16.840.1.100476.3.579. 2.1258 1941 Unknown [id number] 2.16.840.1.540992.3.579. 2.1258 1941 Unknown [id number] 2.16.840.1.262747.3.579. 2.1258 1941 Unknown [id number] 2.16.840.1.285315.3.579. 2.1258 1941 Unknown [id number] 2.16.840.1.719165.3.579. 2.125 1941 Unknown [id number] 2.16.840.1.314264.3.579. 2.1258 1941 Unknown [id number] 2.16.840.1.165370.3.579. 2.1259 Unknown [id number] 2.16.840.1.423245.3.579. 2.531 Unknown [id number] 2.16.840.1.502358.3.579. 2.531 Unknown [id number] 2.16.840.1.260916.3.579. 2.531 Unknown [id number] 2.16.840.1.877912.3.579. 2.531 Unknown [id number] 2.16.840.1.336377.3.579. 2.531 Unknown [id number] 2.16.840.1.857042.3.579. 2.531 Unknown [id number] 2.16.840.1.670112.3.579. 2.531 Unknown [id number] 2.16.840.1.709968.3.579. 2.531 Social History Date Type Detail Facility Start: 03-04-2022 End: 03-20-2025 Tobacco smoking status Ex-smoker (finding) [facility] Other Tobacco smoking status Never [facility] [place] Start: 04-09-2024 Sex Assigned At Female N [facility] Other Start: 03-24-2022 End: 08-10-2024 Tobacco smoking status NHIS Never smoked tobacco (finding) [facility] Start: 1940 Sex Assigned At Female F [facility] Start: 12-07-2024 End: 05-06-2025 Sex Female (finding) [facility] History of tobacco use Current smoker [facility] History of tobacco use Cigarette Smoker [facility] Start: 10-31-2023 Tobacco use and exposure Smokeless tobacco non-user [facility] Start: 04-09-2024 Alcoholic beverage intake Ex-drinker (finding) [facility] Start: 04-09-2024 History of Social function [facility] Start: 1940 Sex assigned at Not on file [facility] Medical Equipment Procedure Code Equipment Code Equipment Origin al Text Equipment Identifier Dates Capsule endoscopy, for patency of lumen evaluation Video capsule endoscopy system [id number] [facility] Start: 05-05-2022 Goals Date Patient Goal Desired [...] instructed in home exercise program. - met Supervisor Type Disk Quality Control Goals: To be met in 10 weeks [...] met Discharge PT documented in this encounter [facility] 05-03-2025 History of Presen t illness Narrative [...] instructed in home exercise program. - met Supervisor Type Disk Quality Control Goals: To be met in 10 weeks [...] sign below. Date: documented in this encounter [facility] 04-15-2025 History of Presen t illness Narrative [...] instructed in home exercise program. - met Supervisor Type Disk Quality Control Goals: To be met in 10 weeks [...] sign below. Date: documented in this encounter [facility] 04-11-2025 History of Presen t illness Narrative [...] instructed in home exercise program. - met Supervisor Type Disk Quality Control Goals: To be met in 10 weeks [...] sign below. Date: documented in this encounter [facility] 04-01-2025 History of Presen t illness Narrative [...] instructed in home exercise program. - met Custodial Goals: To be met in 10 weeks [...] sign below. Date: documented in this encounter [facility] 03-21-2025 History of Presen t illness Narrative [...] instructed in home exercise program. - met Custodial Goals: To be met in 10 weeks [...] sign below. Date: documented in this encounter [facility] 03-20-2025 Evaluation note Diagnosis Onset Date Resolution [...] 11:24am Skin tear acute June 14 11:24am [facility] Work Phone: 1(541) 943-536204-23-2025 Evaluation note* Diagnosis Onset Date Resolution Status [...] 1:46pm Skin tear acute June 18 1:46pm [facility] Work Phone: 1(831) 877-672604-17-2025 History of Present illness Narrative* Jacqui Harper, [...] instructed in home exercise program. - met Custodial Goals: To be met in 10 weeks [...] Please sign below. Date: [id number] History of Present illness Narrative* Jacqui Harper, [...] instructed in home exercise program. - met Supervisor Type Disk Quality Control Goals: To be met in 10 weeks [...] Please sign below. Date: [id number] NoteGeneral Surgery Office/Clinic Note Chief Complaint consultation [...] require lift technique; patient requests referral to [facility]; call with problems/questions. Ordered: [facility] Internal Ambulatory Referral Follow-up No qualifying data [...] Sister. Hypertension: Father, Siste (more content not included)...[facility]:Result Comment: Electronically Signed By: GEORGE JENNINGS, Taye Ellington\Date and Time Signed: 02/26/25 13:52 [id number] Evaluation note * Diagnosis Onset Date Resolution [...] [id number] 11:46am Sacroiliitis acute May 06 11:46am [facility] Work Phone: 1(973) 310-482303-03-2025 Telephone encounter Note* Telephone Encounter - Jenna Servin - 01/28/2025 8:25 AM EST She called noting up all last night not feeling well and no better this morning; she cx her 12:00 PT. I reminded and she said she will try to make her 3/6 PT; if unable she will contact jennifer. [facility] [id number] Miscellaneous Notes* Telephone Encounter - Jenna Servin - 01/28/2025 8:25 AM EST She called noting up all last night not feeling well and no better this morning; she cx her 12:00 PT. I reminded and she said she will try to make her 3/6 PT; if unable she will contact jennifer. documented in this encounterF[id number] History of Present illness Narrative* Jacqui Harper, [...] Left low back is hurting more today. [place] good after last session but pain returned. [...] as needed. Manual lumbar distraction supine with cuban ball. Therapeutic Exercise: (31 minutes) Strength, Endurance, [...] to be instructed in home exercise program. Supervisor Type Disk Quality Control Goals: To be met in 10 weeks [...] Please sign below. Date: [facility] [id number] Evaluation note* Diagnosis Onset Date Resolution Status [...] it, subsequent noneactive April 09, 2025 10:24am [facility] Work Phone: 1(354) 895-784002-17-2025 History of Present illness Narrative* Jacqui Harper, [...] to be instructed in home exercise program. Supervisor Type Disk Quality Control Goals: To be met in 10 weeks [...] Please sign below. Date: documented in this [facility]02-07-2025 Evaluation note* Diagnosis Onset Date Resolution [...] 1:27pm Sacroiliitis acute March 20, 2025 1:27pm [facility] Work Phone: 1(234) 582-321801-29-2025 [place] [address] Pain Management Procedure Note Signed Patient: Sandra Tavarez MR#: [id number] : 1940 Acct:[id number] Age/Sex: 84 / F Adm Date: 5 Loc: Room: Type: [facility] Attending Dr: Michael Dunaway MD Copies [...] MD 12/26/24 1119 Signed By: 12/26/24 1206 [facility]01-15-2025 Evaluation note* Diagnosis Onset Date Resolution Status [...] 2025 10:33am Sacroiliitis acute February 26 10:33am [facility] Work Phone: 1(422) 459-663101-10-2025 Evaluation note* Diagnosis Onset Date Resolution Status Admit Date Generalized seizure disorder acute December 07, 2024 10:20am Hypercholesteremia acute 2024 10:20am Hypertension acute November 10:20am Iron deficiency anemia acute [facility] 2024 10:20am Lumbar spondylosis acute [...] 10, 2024 1:37pm Sacroiliitis acute November 1:37pm [facility] Work Phone: 1(985) 308-869201-10-2025 Evaluation note* Diagnosis Onset Date Resolution Status Admit Date Generalized seizure disorder acute December 07, 2024 10:20am Hypercholesteremia acute 2024 10:20am Hypertension acute November 10:20am Iron deficiency anemia acute [facility] 2024 10:20am Lumbar spondylosis acute [...] 1:39pm Laceration of leg excluding thigh [place] December 12, 2024 1:39pm [facility] Work Phone: 1(200) 401-591301-10-2025 Evaluation note* Diagnosis Onset Date Resolution Status Admit Date Generalized seizure disorder acute December 07, 2024 10:20am Hypercholesteremia acute 2024 10:20am Hypertension acute November 10:20am Iron deficiency anemia acute nuary 2024 10:20am Lumbar spondylosis acute 2024 10:20am EKRMIT (obstructive sleep apnea) acute December 07, 2024 [...] 16, 2025 12:55pm Sacroiliitis acute December 12:55pm [facility] Work Phone: 1(843) 878-367401-10-2025 Evaluation note* Diagnosis Onset Date Resolution Status [...] 10:33am Sacroiliitis acute February 26 025 10:33am [facility] Work Phone: 1([phone]) 287-871609-13-2024 [facility]* Encounter Date Diagnosis Assessment Notes [...] use, the patient reduces the risk for ID, CVA, HTN, cardiac dysrhythmias and sudden cardiac [...] the risk for cerebrovascular and cardiovascular disease. [facility] Other 01-12-2024 Evaluation note* Encounter Date Diagnosis [...] infection (ICD-10 - Z20.822) Order sent to [facility], results negative for COVID infection. [facility] Other 12-14-2023 Evaluation note* Encounter Date Diagnosis Assessment Notes Treatment Notes Treatment Clinical Notes Oct, Acute cough (ICD-10 - R05.1) [facility] Other 10-25-2023 Evaluation note* Encounter Date Diagnosis [...] for additional treatment Discussed compression, pumps etc [facility] Other 10-12-2023 Evaluation note* Encounter Date Diagnosis Assessment Notes Treatment Notes Treatment Clinical Notes Aug, Lumbar spondylosis (ICD-10 - M47.816) [facility] Other 10-02-2023 Evaluation note* Encounter Date Diagnosis Assessment Notes Treatment Notes Treatment Clinical Notes Aug, Pain of right lower extremity (ICD-10 - M79.604) [facility] Other 09-18-2023 Evaluation note* Encounter Date Diagnosis [...] of right lower extremity (ICD-10 - M79.604) [facility] Other 08-22-2023 Evaluation note* Encounter Date Diagnosis Assessment Notes Treatment Notes Treatment Clinical Notes Jun, Dysuria (ICD-10 - R30.0) [facility] Other 08-14-2023 Evaluation note* Encounter Date Diagnosis [...] use, the patient reduces the risk for ID, CVA, HTN, cardiac dysrhythmias and sudden cardiac [...] or drinking prior to bedtime. Weight loss. [facility] Other 06-28-2023 Evaluation note* Encounter Date Diagnosis [...] supplied to the patient after her assessment [facility] Other 05-30-2023 Evaluation note* Encounter Date Diagnosis Assessment Notes Treatment Notes Treatment Clinical Notes March, Cellulitis of right lower extremity (ICD-10 - L03.115) [facility] Other 05-12-2023 Evaluation note* Encounter Date Diagnosis [...] - D68.59) Not able to use NSAIDs [facility] Other 04-26-2023 Evaluation note* Encounter Date Diagnosis [...] and refer to [facility] management [facility] in [facility] Other 04-19-2023 Evaluation note* Encounter Date Diagnosis Assessment Notes Treatment Notes Treatment Clinical Notes Feb, Generalized seizure disorder (ICD-10 - G40.309) [facility]erral [facility] (PRN) [facility] Other 04-17-2023 NotePROCEDURE: XR CHEST 2 [...] Electronically authenticated by: CELINA JONES Date: 2023-03-14 15:11[facility]04-17-2023 Evaluation note* Encounter Date Diagnosis Assessment Notes Treatment Notes Treatment Clinical Notes Feb, Simple chronic bronchitis (ICD-10 - J41.0) [facility] Other 04-13-2023 Evaluation note* Encounter Date Diagnosis Assessment Notes Treatment Notes Treatment Clinical Notes Feb, Acute bronchitis due to other specified organisms (ICD-10 - J20.8) Instructed to use Robitussin or Mucinex for cough, saline or Flonase NS for congestion, Tylenol for pain and fever. Feb, Seasonal allergic rhinitis due to pollen (ICD-10 - J30.1) [facility] Other 04-05-2023 Evaluation note* Encounter Date Diagnosis [...] use, the patient reduces the risk for ID, CVA, HTN, cardiac dysrhythmias and sudden cardiac [...] mammogram for breast cancer (ICD-10 - Z12.31) [facility] Other 03-20-2023 Evaluation note* Encounter Date Diagnosis [...] offered to prescribe a low dose of [place], she states she does not want to be on opioid pain medications. She can follow up in 3 months or as needed. Jan, Chronic pain (ICD-10 - G89.29) Follow up as needed [facility] Other 03-02-2023 Evaluation note* Encounter Date Diagnosis [...] (ICD-10 - G89.29) Follow up after procedure. [facility] Other 02-03-2023 Evaluation note* Encounter Date Diagnosis [...] (ICD-10 - G89.29) Follow up after procedure. [facility] Other 01-30-2023 Evaluation note* Encounter Date Diagnosis Assessment Notes Treatment Notes Treatment Clinical Notes Nov, Erysipelas (ICD-10 - A46) Start w antibiotic, take entire course. Call if no improvement for other prescription or dermatology referral. Nov, Systemic viral illness (ICD-10 - B34.9) Chills and nausea has resolved Continue to monitor symptoms [facility] Other 01-05-2023 Evaluation note* Encounter Date Diagnosis [...] - G89.29) Follow up in 4 weeks. [facility] Other 12-06-2022 Evaluation note* Encounter Date Diagnosis [...] for three days prior to each procedure [facility] Other 10-15-2022 Evaluation note* Encounter Date Diagnosis [...] treatment plan. Patient left in stable condition [facility] Other 10-14-2022 Evaluation note* Encounter Date Diagnosis [...] - G89.29) Follow up in 4 weeks. [facility] Other 09-01-2022 Evaluation note* Encounter Date Diagnosis [...] Eliquis for 3 days prior to procedure [facility] Other 08-05-2022 Evaluation note* Encounter Date Diagnosis [...] Eliquis for 3 days prior to procedure [facility] Other 07-27-2022 [facility] Evaluation note* Encounter Date Diagnosis Assessment [...] Eliquis for 3 days prior to procedure [facility] Other 04-14-2022 Evaluation note* Encounter Date Diagnosis [...] medial branch nerve blocks in the future. [facility] Other 03-24-2022 Evaluation note* Encounter Date Diagnosis [...] reports prior surgery with Dr. Rivers at [facility] 8 years ago. She also reports prior [...] negative findings were considered in medical decision-making. [facility] Other 03-03-2022 Evaluation note* Encounter Date Diagnosis [...] Asymptomatic age-related postmenopausal state (ICD-10 - Z78.0) [facility] Other 2021 Evaluation note* Encounter Date Diagnosis [...] no improvement in 2 to 3 days [facility] Other Evaluation + Plan note No data available for this section [facility] [place] Evaluation noteNo InformationNortDanville State Hospital [facility] Other Evaluation noteNo assessment information available [facility] Work Phone: Evaluation note* Diagnosis Onset Date Resolution Status Chronic venous insufficiency acute Hypertension acute Lumbar spondylosis acute Thrombophilia acute [facility] Work Phone: evaluation note* Diagnosis [...] Ischial bursitis acute Lumbosacral spondylosis acut e [facility] Work Phone: Evaluation note* Diagnosis Onset Date Resolution Status Generalized seizure disorder acute Hypercholesteremia acute Hypertension acute Lumbar spondylosis acute KERMIT (obstructive sleep apnea) acute Thrombophilia acute Type 2 diabetes mellitus with hyperglycemia acute Medicare annual wellness visit, subsequent noneactive Anticoagulant long-term use acute Arthritis of sacroiliac joint acute Chronic pain acute Ischial bursitis acute Lumbosacral spondylosis acut e [facility] Work Phone: Evaluation note* Diagnosis Onset [...] spondylosis acut e Post laminectomy syndrome [place] [facility] Work Phone: Evaluation note* Diagnosis Onset Date Resolution Status Ischial bursitis acute Lumbosacral spondylosis acut e Post laminectomy syndrome [place] Anticoagulant long-term use acute Chronic pain acute Lumbosacral spondylosis acut e Post laminectomy syndrome [place] [facility] Work Phone: Evaluation note* Diagnosis Onset Date Resolution Status Ischial bursitis acute Lumbosacral spondylosis acut e Post laminectomy syndrome [place] Anticoagulant long-term use acute Chronic pain acute Lumbosacral spondylosis acut e Post laminectomy syndrome [place] Generalized seizure disorder acute Hypercholesteremia acute Hypertension acute Lumbar spondylosis acute KERMIT (obstructive sleep apnea) acute Thrombophilia acute Type 2 diabetes mellitus with hyperglycemia acute [facility] Work Phone: Evaluation note* Diagnosis Onset Date Resolution Status Ischial bursitis acute Lumbosacral spondylosis acut e Post laminectomy syndrome [place] Anticoagulant long-term use acute Chronic pain acute Lumbosacral spondylosis acut e Post laminectomy syndrome [place] Generalized seizure disorder acute Hypercholesteremia acute Hypertension acute Lumbar spondylosis acute KERIMT (obstructive sleep apnea) acute Thrombophilia acute Type 2 diabetes mellitus with hyperglycemia acute Anticoagulant long-term use acute Chronic pain acute Lumbosacral spondylosis acut e Post laminectomy syndrome [place] Sacroiliitis acute [facility] Work Phone: Evaluation note* Diagnosis Onset Date Resolution Status Anticoagulant long-term use acute Chronic pain acute Lumbosacral spondylosis acut e Post laminectomy syndrome [place] Generalized seizure disorder acute Hypercholesteremia acute Hypertension acute Lumbar spondylosis acute KERMIT (obstructive sleep apnea) acute Thrombophilia acute Type 2 diabetes mellitus with hyperglycemia acute Anticoagulant long-term use acute Chronic pain acute Lumbosacral spondylosis acut e Post laminectomy syndrome [place] Sacroiliitis acute [facility] Work Phone: Evaluation note* Diagnosis Onset Date Resolution Status Anticoagulant long-term use acute Chronic pain acute Lumbosacral spondylosis acut e Post laminectomy syndrome [place] Generalized seizure disorder acute Hypercholesteremia acute Hypertension acute Lumbar spondylosis acute KERMIT (obstructive sleep apnea) acute Thrombophilia acute Type 2 diabetes mellitus with hyperglycemia acute Anticoagulant long-term use acute Chronic pain acute Lumbosacral spondylosis acut e Post laminectomy syndrome [place] Sacroiliitis acute Chronic pain acute Lumbosacral spondylosis acut e Post laminectomy syndrome [place] Sacroiliitis acute [facility] Work Phone: Evaluation note* Diagnosis [...] wit h hyperglycemia acute December 07 10:20am [facility] Work Phone: Evaluation note* Diagnosis [...] sciatica present- Primary documented in this encounter [facility] HealthcareHistory general Narrative - Reported* Type Description [...] repair right femur Hospitalization History see above [facility] Other History general Narrative - Reported* Type [...] repair right femur Hospitalization History see above [facility] Other Hospital Discharge instructions No data available for this section [facility] [place] Reason for referral (narrative)* Reason Referral for lower e xtremity ulceration Diagnosis 1 Ulcer associated wit h varicose vein, with infection (I83.209) Referral Organization [facility] rachael Referring Provider First Name Robert Referring Provider Last Name Genna Referring Provider Specialty Internal Me dicine Referred Organization [facility] Referred Address [address], [place],[address] Referred Provider Specialty Wound Care Referral Priority Routine General Notes Mrs. Tavarez has chroni c venous insufficiency and suffered a contusion injury to her RLE, which resulted in a nonhealing ulceration. It was sutured by the ER but didn't result in wound closure. She is being referred for debridement and bandaging. She was empirically placed on Mupirocin and Cephalexin. [facility] Other Reason for referral (narrative)No reason for referral information available[facility] Center Work Phone: Reason for visit NarrativeReferral Dr. Conley [facility]opathyN[facility] [employer] Other reason for visit Narrative* Rehabilitation - Outpatient (Routine) - Authorized Specialty Diagnoses / Procedures Referred By Rachel espinoza Referred To Contact Physical Therapy Diagnoses Low back pain, unspecified Proximal Leg Pain Procedures MA PHYSICAL THERAPY EVALUATION LOW COMPLEX 20 MINS MA OFFICE/OUTPATIENT NEW [facility] 60 MINUTES Robert Vail MD [address] [place] [address] Phone: tel: fax: [facility] [address] [address] Phone: tel: fax: Referral ID Status Reason Start Date Expiration Date V isits Requested Visits Authorized [id number] Authorized 01/11/2025 07/10/2025 20 20 [facility] HealthcareReason for visit Narrative* Rehabilitation - Outpatient (Routine) - Authorized Specialty Diagnoses / Procedures Referred By Contac t Referred To Contact Physical Therapy Diagnoses Low back pain, unspecified Proximal Leg Pain Procedures MA PHYSICAL THERAPY EVALUATION LOW COMPLEX 20 MINS MA OFFICE/OUTPATIENT NEW [facility] 60 MINUTES Robert Vail MD [address] [place] [address] Phone: tel: fax: [facility] [address] [address] Phone: tel: fax: Referral ID Status Reason Start Date Expiration Date V isits Requested Visits Authorized [id number] Authorized 01/11/2025 11/27/2025 20 30 [facility] HealthcareReason for visit Narrative* Rehabilitation - Outpatient (Routine) - Authorized Specialty Diagnoses / Procedures Referred By Contac t Referred To Contact Physical Therapy Diagnoses Low back pain, unspecified Proximal Leg Pain Procedures MA PHYSICAL THERAPY EVALUATION LOW COMPLEX 20 MINS MA OFFICE/OUTPATIENT NEW [facility] 60 MINUTES Robert Vail MD Phone: tel: fax: [facility] [address] [address] Phone: tel: fax: Referral ID Status Reason Start Date Expiration Date V isits Requested Visits Authorized [id number] Authorized 01/11/2025 11/27/2025 20 30 [facility] HealthcareReason for visit Narrative* Rehabilitation - Outpatient (Routine) - Authorized Specialty Diagnoses / Procedures Referred By Contac t Referred To Contact Physical Therapy Diagnoses Low back pain, unspecified Proximal Leg Pain Procedures MA PHYSICAL THERAPY EVALUATION LOW COMPLEX 20 MINS MA OFFICE/OUTPATIENT NEW [facility] 60 MINUTES Robert Vail MD Phone: tel: fax: [facility] [address] [facility] [address] [place] [address] Phone: tel: fax: Referral ID Status Reason Start Date Expiration Date V isits Requested Visits Authorized [id number] Authorized 01/11/2025 11/27/2025 20 30 [facility] HealthcareReason for visit Narrative* Rehabilitation - Outpatient (Routine) - Authorized Specialty Diagnoses / Procedures Referred By Contac t Referred To Contact Physical Therapy Diagnoses Low back pain, unspecified Proximal Leg Pain Procedures MA PHYSICAL THERAPY EVALUATION LOW COMPLEX 20 MINS MA OFFICE/OUTPATIENT NEW [facility] 60 MINUTES Robert Vail DO Phone: tel: fax: [facility] [address] [facility] [address] [place] [address] Phone: tel: fax: Referral ID Status Reason Start Date Expiration Date V isits Requested Visits Authorized [id number] Authorized 01/11/2025 11/27/2025 20 30 [facility] HealthcareReason for visit Narrative* Rehabilitation - Outpatient (Routine) - Closed Specialty Diagnoses / Procedures Referred By Contac t Referred To Contact Physical Therapy Diagnoses Low back pain, unspecified Proximal Leg Pain Procedures MA PHYSICAL THERAPY EVALUATION LOW COMPLEX 20 MINS MA OFFICE/OUTPATIENT NEW [facility]DM 60 MINUTES Robert Vail DO Phone: tel: fax: [facility] [address] [facility] [address] [place] [address] Phone: tel: fax: Referral ID Status Reason Start Date Expiration Date Visits Re quested Visits Authorized [id number] Closed 01/11/2025 11/27/2025 20 30 [facility] [...] No March 20 1:53pm Hospital Course Note [facility] Clinical Discharge Summary PERSON INFORMATION Name SANDRA TAVAREZ Age 79 Years 1940 Sex FEMALE Language Nigerian PCP Robert Vail Marital Status Med Service Med/Surg Acct# Arrival 05/23/2020 09:44:18 Visit Reason SURGERY - LEFT TOTAL KNEE Acuity LOS Address: [address] [place] [address] Comment: PROVIDER INFORMATION VITALS INFORMATION Vital Sign [...] whether neurogenic claudication present (M48.061) Referral Organization [facility] Referring Provider First Name Usama Referring Provider Last Name Eusebio Referring Provider Specialty Neurologica l Surgery Referred Organization [facility] Referred Provider Michael Dunaway Referred Address [address] [facility],[place] [address] ,[place],[address] Referred Provider Specialty Pain Medicin e Referral [...] pain Ischial bursitis Lumbosacral spondylosis Chief Complaint [facility] Wellness INCREASED BUTTOCK PAIN Z79.01 M47.817 M70.70 [...] Lumbosacral spondylosis Post laminectomy syndrome Chief Complaint [facility] Wellness INCREASED BUTTOCK PAIN Z79.01 M47.817 M70.70 [...] 09, 2025 10:24am Medicare annual wellness visit, [facility] nt April 09, 2025 10:24am Chief Complaint Admit Date bilateral SI joint injection February 14, 2025 10:10am f/u after kristofer SI joint inj February 26 10:33am *coumadin*bilateral L3,4,5 lumbar facet MBB March 12, 2025 1:03pm f/u after kristofer lumbar MBB March 20 1:27pm Coumadin kristofer lumbar facet RFA L3, L4, L5 March 28, 2025 10:14am [facility] Wellness - HIGH RISK April 09, 2025 [...] 09, 2025 10:24am Medicare annual wellness visit, [facility] nt April 09, 2025 10:24am Lumbosacral spondylosis [...] L3, L4, L5 March 28, 2025 10:14am [facility] Wellness - HIGH RISK April 09, 2025 10:24am 2 week follow up after RFA April 15 1:48pm follow up after lumbar RFA May 06 11:46am right leg wound May 06, 2025 1:20p m Chief Complaint Admit Date f/u after kristofer lumbar MBB March 20 1:27pm Coumadin kristofer lumbar facet RFA L3, L4, L5 March 28, 2025 10:14am [facility] Wellness - HIGH RISK April 09, 2025 [...] L3, L4, L5 March 28, 2025 10:14am [facility] Wellness - HIGH RISK April 09, 2025 [...] CREATED AUTHOR AUTHOR'S ORGANIZ ATION 01/08/2025 [facility] DATE CREATED AUTHOR AUTHOR'S ORGANIZ ATION 04/12/2025 [facility] DATE CREATED AUTHOR AUTHOR'S ORGANIZ ATION 05/12/2025 [facility] EPIC REASON FOR VISIT (unrecogniz ed section and content) Reason Onset Date Comments Cx PT 01/28/25 01/28/2025 3 month Follow upHEAD COLD, TIREDLab resultstemp [id number] results1 month Follow upTBHMedication Questionmessage4 month/suture removaldiscuss [...] NBIN CAR FEVER, COUGH, H/AFOLLOW UP AFTER KRISTOEFR LUMBAR RFAELIQUIS*KRISTOFER LUMBAR FACET RFA L4-5, L5-S1/ELELIQUIS*KRISTOFER [...] May 10, 2024 End: May 10, 2024 Michael Dunaway MD Attending Provider Active Sta rt: May 10, 2024 End: May 10, 2024 Team Status: Active Member Role Status Dates oRbert Vail DO Primary Care Provider Active Start: [...] December 10, 2024 End: December 10, 2024 Critical Care Cns Relationship Specialty Start Date End Date Robert Vail MD [address] [place] [id number] PCP - General Internal Medicine 04/03/24 Critical Care Cns Relationship Specialty Start Date End Date Robert Vail MD [address] [place] [address] PCP - General Internal Medicine 04/03/24 Critical Care Cns Relationship Specialty Start Date End Date Robert Vail MD [address] [place] [address] PCP - General Internal Medicine 04/03/24 Critical Care Cns Relationship Specialty Start Date End Date Robert Vail MD [address] [place] [address] PCP - General Internal Medicine 04/03/24 Critical Care Cns Relationship Specialty Start Date End Date Robert Vail MD [address] [place] [facility] [address] PCP - General Internal Medicine 04/03/24 Critical Care Cns Relationship Specialty Start Date End Date Robert Vail MD [address] [place] [facility] [address] PCP - General Internal Medicine 04/03/24 Critical Care Cns Relationship Specialty Start Date End Date Robert Vail MD [address] [place] [facility] [address] PCP - General Internal Medicine 04/03/24 Critical Care Cns Relationship Specialty Start Date End Date Robert Vail MD [address] [place] [facility] [address] PCP - General Internal Medicine 04/03/24 Critical Care Cns Relationship Specialty Start Date End Date Robert Vail MD [address] [place] [facility] [address] PCP - General Internal Medicine 04/03/24 Critical Care Cns Relationship Specialty Start Date End Date Robert Vail MD PCP - General Internal Medicine 04/03/24 Critical Care Cns Relationship Specialty Start Date End Date Robert Vail MD PCP - General Internal Medicine 04/03/24 Critical Care Cns Relationship Specialty Start Date End Date Robert Vail MD PCP - General Internal Medicine 04/03/24 Critical Care Cns Relationship Specialty Start Date End Date Robert Vail MD PCP - General Internal Medicine 04/03/24 Team Status: Inactive Member Role Status Dates Robert Vail DO Primary Care Provider Active Start: March 28, 2025 End: March 28, 2025 Michael Dunaway MD Attending Provider Active Sta rt: March 28, 2025 End: March 28, 2025 Critical Care Cns Relationship Specialty Start Date End Date Robert Vail DO PCP - General Internal Medicine 04/03/24 Critical Care Cns Relationship Specialty Start Date End Date Robert Vail DO PCP - General Internal Medicine 04/03/24 Critical Care Cns Relationship Specialty Start Date End Date Robert Vail DO PCP - General Internal Medicine 04/03/24 Critical Care Cns Relationship Specialty Start Date End Date Robert Vail DO PCP - General Internal Medicine 04/03/24 Critical Care Cns Relationship Specialty Start Date End Date Robert Vail DO PCP - General Internal Medicine 04/03/24 Team Status: Inactive Member Role Status Dates Robert Vail DO Primary Care Provide r, Attending Provider Active Start: April 09, 2025 End: April 09, 2025 Critical Care Cns Relationship Specialty Start Date End Date Robert Vail DO PCP - General Internal Medicine 04/03/24 Critical Care Cns Relationship Specialty Start Date End Date Robert Vail DO PCP - General Internal Medicine 04/03/24 Critical Care Cns Relationship Specialty Start Date End Date GennaRobert PCP - General Internal Medicine 04/03/24 Critical Care Cns Relationship Specialty Start Date End Date Robert Vail DO PCP - General Internal Medicine 04/03/24 Critical Care Cns Relationship Specialty Start Date End Date Robert Vail DO PCP - General Internal Medicine 04/03/24 Critical Care Cns Relationship Specialty Start Date End Date Robert [...] BE BASED ON THE PRIMARY CLINICAL RECORDS. [facility] [employer] provides no warranty or guarantee of the accuracy or completeness of information in this document.
== END 2025-07-31 12:57 | disposition home or self-care (01) ==
LOC: WC 12:56
PROVIDERS: PCP Internal Medicine; Visit Provider Physician Assistant
DX: I87.311 Chronic venous hypertension (idiopathic) with ulcer of right lower extremity (principal); L97.812 Non-pressure chronic ulcer of other part of right lower leg with fat layer exposed
CPT/HCPCS: 29581

== ENCOUNTER 2025-08-14 10:11 | Outpatient (OUT) | payer MEDICARE, OTHER, SELFPAY ==
--- OUTSIDE RECORDS SUMMARY | 2025-08-14 10:12 | XMS_ITS | Encounter Summary ---
Author Organization [employer] Address [facility] [id number] [address] [place] [address] Care Team Providers Care Prorate Clerk Name Role Phone Robert Lopez Primary Care Provider [phone] Encounter Details Date Type Department Care Team (Late st Contact Info) Description 07/31/2020 Telephone [facility] [address] [place] [id number] Torrey Guevara RN Social History Tobacco Use [...] on filedocumented in this encounter Care Teams Prorate Clerk Relationship Specialty Start Date End Date Robert Lopez DO [facility] [place] [address] PCP - General 01/19/13 documented as of this encounter
--- OUTSIDE RECORDS SUMMARY | 2025-08-14 10:12 | XMS_ITS | Patient Health Record ---
Author Organization [facility] [place] Address [address] [place] [address] Care Team Providers Care Test Architect Name Role Phone Robert Lopez DO Primary Care Provider Unavaila ble Reason For Referral No Information Medications Medication SIG (Take, Route, Frequency, Duration) Notes Start Date End Date Status hydroCHLOROthiazide 25 mg tablet DAILY Active Bristol 325 mg-5 mg tablet Q6H Active Depakote Active Dilantin Active SM Iron tablet Active Pepcid Active potassium chloride Active senna PRN Active Problems Problem Type SNOMED Code ICD Code Onset Dates Problem Status W/U Status Risk Notes Problem 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 due to chronic peripheral venous hypertension (977318319133824) Chronic venous hypertension (idiopathic) with ulcer and inflammation of right lower extremity (I87.331) Active confirmed Problem Chronic ulcer of lower extremity (68943251) Non-pressure chronic ulcer of other part of right lower leg limited to breakdown of skin (L97.811) Active confirmed Problem Chronic non-pressure ulcer of calf extending to fat level (94811411431516320) Non-pressure chronic ulcer of other part of right lower leg with fat layer exposed (L97.812) Active confirmed Problem Sleep apnea (25588499) Sleep apnea (G47.30) Active confirmed Problem Acquired lymphedema (56700938) Acquired lymphedema (I89.0) Active confirmed Problem 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 due to chronic peripheral venous hypertension (244248089773298) Idiopathic chronic venous hypertension of right lower extremity with ulcer (I87.311) Active confirmed Problem Essential hypertension (91707239) BP (high blood pressure) (I10) Active confirmed Problem Hypercholesterolemia (64388304) Hypercholesterolemia (E78.00) Active confirmed Problem Chronic ulcer [...] End Date [place]IC[place] [address] [place] [address] [id number] Sandra Tavarez Self - patient is the insured 7 [facility] [address] [place], [place] [address] [facility] 8 MEDICARE SUPP CLMS DEPT [place] [id number] PLAN F Sandra Tavarez Self - patient [...]
--- OUTSIDE RECORDS SUMMARY | 2025-08-14 10:12 | XMS_ITS | Clinical Summary ---
Author Organization [facility] Address [address] [place] [address] Care Team Providers Care Mental Health Nurse Name Role Phone Unavailable Primary Care Provider [...]
--- OUTSIDE RECORDS SUMMARY | 2025-08-14 10:12 | XMS_ITS | Clinical Summary ---
Author Organization [facility] Address [address] [place] [address] Care Team Providers Care Consultant Internship Name Role Phone Robert Lopez DO Primary Care Provider [phone] Allergies Active Allergy Reactions Criticality Noted Date [...] lower eyelids of both e yes 04/03/2024 Social History Tobacco Use Types Packs/Day Years [...] AM EDT Office Visit [facility] [address] [place] [phone] Jr. Jovi Silva, DO [address] [place] [address] Health Maintenance Due Date Last Done Comments Pneumococcal Vaccine: 65+ Ye ars (2 of 2 - PCV) 07/29/2018 07/29/2017 Influenza Vaccine (#1) 2025 4, 10/13/2022, 11/16/2019, Additional history exists Insurance MEDICARE [employer] [facility] [place] [id number] Care Teams Consultant Internship Relationship Specialty Start Date End Date Robert Lopez DO PCP - General Internal Medicine 04/03/24
--- OUTSIDE RECORDS SUMMARY | 2025-08-14 10:13 | XMS_ITS | Clinical Summary ---
Author Organization [facility] [facility] Address [id number] [address] 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
--- OUTSIDE RECORDS SUMMARY | 2025-08-14 10:13 | XMS_ITS | Encounter Summary ---
Author Organization [employer] [facility] Address [id number] [address] [place] [address] Care Team Providers Care Coroner Forensic Technician Name Role Phone Robert Lopez DO Primary Care Provider [phone] Encounter Details Date Type Department Care Team (Late st Contact Info) Description 01/17/2019 Telephone [facility] [address] [address] Torrey Guevara RN Social History [...] on filedocumented in this encounter Care Teams Coroner Forensic Technician Relationship Specialty Start Date End Date Robert Lopez DO [address] [place] [address] PCP - General 01/19/13 documented as of this encounter
--- OUTSIDE RECORDS SUMMARY | 2025-08-14 10:13 | XMS_ITS | Encounter Summary ---
Author Organization [facility] Address [facility] [id number] [address] [place] [address] Care Team Providers Care Cylinder Dyer Name Role Phone Robert Lopez DO Primary Care Provider [phone] Encounter Details Date Type Department Care Team (Late st Contact Info) Description 03/15/2017 Documentation [facility] [address] [place] [phone] Valorie Cruz RMA Social History Tobacco Use [...] on filedocumented in this encounter Care Teams Cylinder Dyer Relationship Specialty Start Date End Date Robert Lopez DO [address] [place] [address] PCP - General 01/19/13 documented as of this encounter
--- OUTSIDE RECORDS SUMMARY | 2025-08-14 10:13 | XMS_ITS | Encounter Summary ---
Author Organization [employer] [facility] Address [facility] [id number] [address] [place] [address] Care Team Providers Care Building Guard Deputy Sheriff Name Role Phone Robert Lopez DO Primary Care Provider [phone] Encounter Details Date Type Department Care Team (Late st Contact Info) Description 04/07/2022 Abstract [facility] - Medical Oncology [address] [place] [address] Heriberto Marroquin MD [address] [place] [address] [address] [place] [address] Social History Tobacco Use Types Packs/Day Years [...] 02/05/2022 us Not In System Ref Prov [facility] Final Res ult documented in this encounter Visit Diagnoses Not on filedocumented in this encounter Care Teams Building Guard Deputy Sheriff Relationship Specialty Start Date End Date Robert Lopez DO [address] [place] [address] PCP - General 01/19/13 documented as of this encounter
--- OUTSIDE RECORDS SUMMARY | 2025-08-14 10:13 | XMS_ITS | Encounter Summary ---
Author Organization [employer] Address [facility] [id number] [address] [place] [address] Care Team Providers Care Follow Up Manager Name Role Phone Robert Lopez DO Primary Care Provider [phone] Encounter Details Date Type Department Care Team (Late st Contact Info) Description 05/18/2022 Orders Only [facility] [address] [place] [phone] Heriberto Marroquin MD [address] [place] [address] [address] [place] [address] Social History Tobacco Use Types Packs/Day [...] on filedocumented in this encounter Care Teams Follow Up Manager Relationship Specialty Start Date End Date Robert Lopez DO [address] [place] [address] PCP - General 01/19/13 documented as of this encounter
--- OUTSIDE RECORDS SUMMARY | 2025-08-14 10:25 | XMS_ITS | CCD ---
Author Organization [facility] Care Team Providers Care Manager Community Development Name Role Phone ROBERT VAIL Primary Care Physician Quita Simmons Unavailable Usama Batista Unavailable Michael Dunaway Unavailable Maico Lloyd Unavailable DO Robert Vail Primary Care Provider DO Maico Llody Attending Provider MD Michael Dunaway Attending Provider [...] Care Provider MD Juancarlos Campbell Attending Provider DO Robert Vail Primary Care Provider MD Juancarlos Campbell Attending Provider [phone] Genna, DO Jones Primary Care Provider MD Michael Dunaway Attending Provider Genna, DO Jones Primary Care Provider MD Michael Dunaway Attending Provider [phone] Genna, DO Jones Primary Care Provider MD Michael Dunaway Attending Provider [phone] MD Micheal Dunaway Attending Provider Robert aVil DO Primary Care Provider Michael Dunaway MD [...] Referring Unavailable HARPER, JACQUI Attending Unavailable BALL, ROBRET E Referring Unavailable XIAO, GABRIEL Attending Unavailable [...] Attending Provider Morena Donato APRN Attending Provider [phone] Robert Vail DO Primary Care Provider [phone] Robert Vail DO Attending Provider [phone] Allergies Allergy Classification Reported Allergen(s) Allergy Type Date of Onset Reaction(s) Facility NSAIDs (1 source) celecoxib Drug Allergy 05-28-20 [facility] Penicillins (antibiotic) (1 source) Penicillins Drug Allergy 05-28-20 [facility] Serotonin Reuptake Inhibitors (SSRIs) (1 source) Citalopram Drug Allergy 05-28-20 [facility] (2 sources) Adhesive Tape; 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: [Tape] Drug allergy rash [facility] (20 sources) celecoxib; 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: [celecoxib] Drug Allergy 05-05-20 22 rash, Hives, Unknown [facility] (1 source) Penicillins; 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: [penicillins] Drug allergy groggy [facility] Comment on above: Pt. states PCN does n't work for me, it just doesn't work (20 sources) Penicillin G Drug Allergy rash [facility] Other (20 sources) Penicillins; 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: [Penicillins] Allergy to substance 12-04-19 14 Rash, Itching, Swelling [facility] (2 sources) celecoxib Drug Allergy 12-04-19 14 [facility] (1 source) Citalopram Drug Allergy [facility] (1 source) Desonide Drug Allergy [facility] (20 sources) Citalopram Drug Allergy 12-27-19 24 Unknown, [facility] (18 sources) Penicillin Drug Allergy 08-17-20 13 Unknown [facility] Other (1 source) Substance with penicillin structure and antibacterial mechanism of action (substance) Drug allergy Unknown [facility] Other (1 source) patient allergy list reviewed by nurse or physicia Propensity to adverse reactions 09-19-20 14 Comment:Done [place] [facility] Other (1 source) celecoxib Drug Allergy 01-04-20 25 [facility] (1 source) Citalopram Drug Allergy 01-04-20 25 [facility] (20 sources) celecoxib Drug [...] (20 sources) HMG-CoA Reductase Inhibitor Start: 06-18-2025 End: 08-12-2025 take 1 tablet by mouth once daily in the evening Atorvastatin 20 mg tablet Active 20 MG PO Every evening 90 August 12, 2025 11:06am Complies with drug therapy Start: 03-18-2025 End: [...] 05, 2022 12:00am March 12, 2024 6:05pm furosemide 20 mg oral tablet (20 sources) Loop Diuretic Start: 09-21-2024 End: 09-21-2024 take 1 tablet by mouth twice daily Furosemide 20 mg tablet Active 20 MG PO Twice daily 180 September 21, 2024 4:20pm Complies with drug [...] ta blet (20 sources) Start: 03-12-2024 End: 08-12-2025 Levetiracetam 500 mg tablet Active 750 MG PO Twice daily 270 90 August 12, 2025 11:07am Complies with drug therapy Start: 03-12-2024 End: [...] sources) Angiotensin 2 Receptor Kareem Start: 025 End: 025 take 1 tablet by mouth once daily Losartan 50 mg tablet Active 50 MG PO Daily 90 90 August 12, 2025 11:07am Complies with drug therapy Start: 03-18-2025 End: [...] 2024 6:05pm take 1 tablet by danika in the morning losartan (Cozaar) 25 MG tablet Take 25 mg by mouth in the morning. Active methylPREDNISolone 4 mg oral tablet (1 source) Corticosteroid Start: 11-07-2021 Medrol 4 MG as directed Orally as directed for 6 days Oct, Active mupirocin 0.02 mg/mg topical ointment (3 sources) RNA Synthetase Inhibitor Antibacterial Start: 06-14-2025 Mupirocin 2 % ointment Active 1 APPLIC TOPICAL Twice daily June 14, 2025 12:00am Complies with drug therapy polysaccharide iron complex 150 mg oral capsule (20 sources) Start: 12-10-2024 End: 08-12-2025 Polysaccharide Iron Complex (Ferrex 150) 150 mg iron capsule Active 150 MG PO Daily August 12, 2025 11:10am Complies with drug therapy Start: 08-27-2024 End: [...] 12:24pm Start: 03-03-2022 take 1 capsule by mo [facility] once daily Ferrex-150 oral capsule 150 mg = 1 cap(s), Oral, Daily, Refills(s) 0 Start Date: 03/03/22 Status: Ordered take 1 capsule by [facility] every other day IFerex 150 150 MG 1 capsule Orally qod for 30 days Active take 1 capsule by [facility] once daily IFerex 150 150 MG take 1 capsule by mouth once daily for 30 Not-Taking take 1 capsule by [facility] once daily IFerex 150 150 MG 1 capsule Orally Once a day Active potassium chloride 10 meq extended release oral capsule (20 sources) Start: 03-18-2025 End: 08-12-2025 Potassium Chloride 10 mEq capsule, extended release Active 0 .ROUTE .COMPLEX August 12, 2025 11:07am TAKE 1 CAPSULE EVERY DAY Complies with [...] 6:05pm Start: 03-27-2015 take 1 tablet by [facility] once daily potassium chloride 10 mEq ER [...] (20 sources) Vitamin K Antagonist Start: 03-20-2025 End: 08-12-2025 Warfarin 5 mg tablet Active 5 MG PO .COMPLEX August 12, 2025 11:10am 5 mg orally; as directed by [facility] Complies with drug therapy Start: 03-20-2025 End: 08-12-2025 take 1 tablet by mouth three times weekly Warfarin 2.5 mg tablet Discontinued 2.5 MG PO 3 Times a week March 20, 2025 1:36pm August 12, 2025 11:08am Start: 12-13-2024 End: 03-20-2025 take 1 tablet [...] Start: 08-15-2017 take 1 tablet by danika th once daily warfarin (Coumadin) 5 MG tablet Take 5 mg by mouth 1 (one) time each day 10/10/2023 Active take 1 tablet by danika th two times weekly Coumadin 5 5 MG 1 tablet Orally Two times a Week Active witch darien 200 mg/ml medicated pad (20 sources) Start: 10-31-2023 Witch Darien (P reparation H Totables Wipes) 50 % [...] twice daily for 14 days Aug, Active [id number] 200 actuat albuterol 0.09 mg/actuat metered dose [...] 3:05pm Start: 11-10-2023 take 1 capsule by [facility] every eight hours Benzonatate 100 MG 1 capsule as needed Orally Three times a day for 10 days Oct, Active Start: 03-10-2023 take 1 capsule by [facility] every eight hours Benzonatate 200 MG 1 capsule Orally Three times a day for 10 13 Feb, 2023 Active Start: 09-11-2022 take 1 capsule by mo [facility] every eight hours Tessalon Perles 100 MG 1 capsule as needed Orally Three times a day for 7 days Aug, Active cephalexin 500 mg oral capsule (19 sources) Cephalosporin Antibacterial Start: 07-11-2023 take 1 capsule by mouth twice daily as needed Cephalexin 500 MG 1 capsule Orally twice daily for 14 days Jun, Not-Taking/PRN Start: 09-27-2016 take 1 capsule by mo [facility] every twelve hours Cephalexin 500 MG [...] a day for 90 days Active doxycycline monohydrate 100 mg oral tablet (20 sources) Tetracycline-class Drug Start: 06-14-2025 End: 08-12-2025 take 1 tablet by mouth twice daily Doxycycline Monohydrate 100 mg tablet Discontinued 100 MG PO Twice daily 16 09June 14, 2025 12:00am August 12, 2025 10:32am Start: 01-04-2025 End: 04-09-2025 take 1 capsule [...] 2:25pm Start: 04-08-2023 take 1 capsule by mo uth twice daily as needed Doxycycline Hyclate 100 MG 1 capsule Orally twice daily for 7 days March, Not-Taking/PRN Start: 05-05-2022 End: 06-23-2022 take 1 capsule by mouth once daily Doxycycline Hyclate 100 mg capsule Discontinued 100 MG PO Daily May 05, 2022 12:00am June 23, 2022 10:21am empagliflozin 10 mg oral tablet (5 sources) Sodium-Glucose Cotransporter 2 Inhibitor Start: 04-19-2025 End: 08-12-2025 take 1 tablet by mouth once daily in the morning Empagliflozin (Jardiance) 10 mg tablet Discontinued 10 MG PO Every morning 30 April 19, 2025 12:00am August 12, 2025 11:06am 0.8 ml enoxaparin sodium 150 mg/ml prefilled syringe (18 sources) Low Molecular Weight Heparin Start: 12-14-2024 End: 03-20-2025 Enoxaparin 120 mg/0.8 mL syringe Discontinued 0 .ROUTE .COMPLEX 4.8 December 14, 2024 6:34pm March 20, 2025 1:35pm INJECT 1 syringe EVERY 12 HOURS FOR 6 DAYS Start: 12-14-2024 End: 12-14-2024 Enoxaparin (Lovenox) 120 mg/ 0.8 mL syringe Discontinued 0 SUBCUT Every 12 hours 4.8 December 14, 2024 1:00am December 14, 2024 [...] by mouth Active take 1 tablet by [facility] every twenty-four hours Iron 325 (65 [...] 10:21am Start: 04-10-2015 take 1 capsule by [facility] twice daily Dilantin 100 mg Cap-ER 100 mg = 1 cap(s), Oral, BID, Refills(s) 0, Seizure Start Date: 04/10/15 Status: Ordered take 1 capsule by [facility] every twelve hours Dilantin 100 MG [...] Onset: 2 Episodic Deficiency and other anemia (10 sources) Anemia; 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: [Anemia, unspecified] Resolved: 2 [...] Open wounds of head; neck; and trunk (9 sources) Tear of skin; 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: [Open wound(s) [...] sources) Long-term current use of anticoagulant; 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: [custodial (current) use of anticoagulants] Onset: 2 Episodic Other aftercare (20 sources) 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; 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: [Long-term (current) use of anticoagulants] Onset: 2 Resolved: 2 Episodic Other aftercare (1 source) Long-term current use of drug therapy; 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: [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] Episodic Other aftercare (20 [...] Chronic Other diseases of veins and lymphatics (10 sources) Chronic peripheral venous hypertension; 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: [Chronic [...] [Asymptomatic menopausal state] Episodic Residual codes; unclassified (8 sources) Mammogram declined; 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: [Procedure and treatment [...] Basophils (Bld) [#/Vol] Automated basophil count 0.0-0.1 [facility] Basophils (Bld) [#/Vol] 0.0 10 3/uL 0.0-0.1 [facility] Basophils/100 WBC Auto (Bld) on 04-18-2025 Basophils/100 WBC (Bld) Automated basophil % 0.2-2.0 [facility] Basophils/100 WBC (Bld) 0.6 % 0.2-2.0 [facility] Cholesterol in LDL Calc [Mas s/Vol]on 04-18-2025 Cholesterol in LDL [Mass/Vol] Cholesterol in LDL [Mass/volume] in Serum or Plasma by calculation [facility] Comment on above: <100 mg/dl [id number] 0-129 mg/dl NEAR OR ABOVE [id number] mg/dl BORDERLINE [id number] mg/dl HIGH>190 mg/dl VERY HIGH Cholesterol in LDL [Mass/Vol] 52.0 mg/dL [facility] Comment on above: <100 mg/dl [id number] 0-129 mg/dl NEAR OR ABOVE [id number] mg/dl BORDERLINE [id number] mg/dl HIGH>190 mg/dl VERY HIGH Cholesterol in VLDL Calc [Ma ss/Vol]on 04-18-2025 Cholesterol in VLDL [Mass/Vol] Cholesterol in VLDL [Mass/volume] in Serum or Plasma by calculation [facility] Cholesterol in VLDL [Mass/Vol] 10.0 mg/dL [facility] Eosinophils/100 WBC Auto (Bl d)on 04-18-2025 Eosinophils/100 WBC (Bld) Automated eosinophil % 0.9-7.0 [facility] Eosinophils/100 WBC (Bld) 1.3 % 0.9-7.0 [facility] Erythrocyte distribution wid th Auto (RBC) [Ratio]on 04-18-2025 Erythrocyte distribution width (RBC) [Ratio] Erythrocyte distribution width [Ratio] by Automated count 11.0-15.0 [facility] Erythrocyte distribution width (RBC) [Ratio] 14.6 % 11.0-15.0 [facility] Estimated glomerular filtrat ion rate (GFR) non- Americanon 04-18-2025 GFR/1.73 sq M.predicted among non-blacks MDRD (S/P/Bld) [Vol rate/Area] Estimated glomerular filtration rate (GFR) non- >=60 mL/min/1.7 3m 2 [facility] GFR/1.73 sq M.predicted among non-blacks MDRD (S/P/Bld) [Vol rate/Area] mL/min/{1.73_m2} >=60 mL/min/1.7 3m 2 [facility] Globulin Calc (S) [Mass/Vol] on 04-18-2025 Globulin (S) [Mass/Vol] Serum globulin measurement by calculation (mass/volume) [facility] Globulin (S) [Mass/Vol] 3.5 g/dL [facility] Glucose mean value [Mass/vol ume] in Blood Estimated from glycated hemoglobinon 04-18-2025 Average glucose Estimated from glycated hemoglobin (Bld) [Mass/Vol] Glucose mean value [Mass/volume] in Blood Estimated from glycated hemoglobin [facility] Average glucose Estimated from glycated hemoglobin (Bld) [Mass/Vol] 154 mg/dL [facility] Hematocrit Auto (Bld) [Volum e fraction]on 04-18-2025 Hematocrit (Bld) [Volume fraction] Hematocrit [Volume Fraction] of Blood by Automated count 36.0-48.0 [facility] Hematocrit (Bld) [Volume fraction] 41.2 % 36.0-48.0 [facility] Hemoglobin A1c percentageon 04-18-2025 HbA1c (Bld) [Mass fraction] Hemoglobin A1c percentage High 4.5-6.2 [facility] Comment on above: ADA RECOMMENDED LIMI T 4.0 - 6.0ADA THERAPEUTIC TARGET < 7.0ACTION SUGGESTED> 7.0 HbA1c (Bld) [Mass fraction] 7.0 % High 4.5-6.2 [facility] Comment on above: ADA RECOMMENDED LIMI T 4.0 - 6.0ADA THERAPEUTIC TARGET < 7.0ACTION SUGGESTED> 7.0 Hemoglobin [Mass/volume] in Bloodon 04-18-2025 Hemoglobin (Bld) [Mass/Vol] Hemoglobin [Mass/volume] in Blood 12.0-16.0 [facility] Hemoglobin (Bld) [Mass/Vol] 13.3 g/dL 12.0-16.0 [facility] Laboratory - Chemistry and C hemistry - challengeon 04-18-2025 Albumin [Mass/Vol] 3.5 g/dL 3.4-5.0 [facility] ALP [Catalytic activity/Vol] 103 U/L 46-116 [facility] ALT [Catalytic activity/Vol] 25 U/L 14-59 [facility] AST [Catalytic activity/Vol] 16 U/L 15-37 [facility] Bilirubin [Mass/Vol] 0.9 mg/dL 0.2-1.0 [facility] Calcium [Mass/Vol] 9.6 mg/dL 8.5-10.1 [facility] Chloride [Moles/Vol] 103 mmol/L 98-107 [facility] Cholesterol [Mass/Vol] 140 mg/dL <=200 [facility] Cholesterol in HDL [Mass/Vol] 78 mg/dL High 40-60 [facility] Comment on above: > or =60 mg/dl - LOW CARDIOVASCULAR RISK<40 mg/dl - HIGH CARDIOVASCULAR RISK CO2 [Moles/Vol] 30.8 mmol/L 21.0-32.0 [facility] Creatinine [Mass/Vol] 0.80 mg/dL 0.55-1.02 [facility] GFR/1.73 sq M.predicted MDRD (S/P/Bld) [Vol rate/Area] mL/min/{1.73_m2} >=60 mL/min/1.7 3m 2 [facility] Glucose [Mass/Vol] 123 mg/dL High 74-106 [facility] Potassium [Moles/Vol] 4.3 mmol/L 3.5-5.1 [facility] Protein [Mass/Vol] 7.0 g/dL 6.4-8.2 [facility] Sodium [Moles/Vol] 142 mmol/L 136-145 [facility] Triglyceride [Mass/Vol] 50 mg/dL <=150 [facility] TSH Qn 0.678 m[IU]/L 0.358-3.74 0 [facility] Urea nitrogen [Mass/Vol] 16.0 mg/dL 7.0-18.0 [facility] Urea nitrogen/Creatinin e [Mass ratio] 20.0 mg/mg [facility] Laboratory - Hematology and Cell countson 04-18-2025 Immature granulocytes/100 WBC (Bld) 0.6 % High 0.0-0.5 [facility] Leukocytes [#/volume] correc torri for nucleated erythrocytes in Blood by Automated counon 04-18-2025 WBC corrected for nucl RBC Auto (Bld) [#/Vol] Leukocytes [#/volume] corrected for nucleated erythrocytes in Blood by Automated coun 4.0-11.0 [facility] WBC corrected for nucl RBC Auto (Bld) [#/Vol] 5.4 10 3/uL 4.0-11.0 [facility] Lymphocytes Auto (Bld) [#/Vo l]on 04-18-2025 Lymphocytes (Bld) [#/Vol] Lymphocytes [#/volume] in Blood by Automated count Low 1.2-3.8 [facility] Lymphocytes (Bld) [#/Vol] 0.7 10 3/uL Low 1.2-3.8 [facility] Lymphocytes/100 WBC Auto (Bl d)on 04-18-2025 Lymphocytes/100 WBC (Bld) Lymphocytes/100 leukocytes in Blood by Automated count Low 20.5-60.0 [facility] Lymphocytes/100 WBC (Bld) 13.5 % Low 20.5-60.0 [facility] MCH Auto (RBC) [Entitic mass ]on 04-18-2025 MCH (RBC) [Entitic mass] MCH [Entitic mass] by Automated count 26.7-34.0 [facility] MCH (RBC) [Entitic mass] 29.2 pg 26.7-34.0 [facility] MCHC Auto (RBC) [Mass/Vol]on 04-18-2025 MCHC (RBC) [Mass/Vol] MCHC [Mass/volume] by Automated count 29.9-35.2 [facility] MCHC (RBC) [Mass/Vol] 32.3 g/dL 29.9-35.2 [facility] MCV Auto (RBC) [Entitic vol] on 04-18-2025 MCV (RBC) [Entitic vol] MCV [Entitic volume] by Automated count 81.0-99.0 [facility] MCV (RBC) [Entitic vol] 90.5 fL 81.0-99.0 [facility] Microalbumin [Mass/volume] i n Urineon 04-18-2025 Albumin DL <= 20 mg/L (U) [Mass/Vol] Microalbumin [Mass/volume] in Urine <=30.0 [facility] Albumin DL <= 20 mg/L (U) [Mass/Vol] 2.2 mg/dL <=30.0 [facility] Monocytes Auto (Bld) [#/Vol] on 04-18-2025 Monocytes (Bld) [#/Vol] Automated blood monocyte count 0.3-0.8 [facility] Monocytes (Bld) [#/Vol] 0.5 10 3/uL 0.3-0.8 [facility] Monocytes/100 WBC Auto (Bld) on 04-18-2025 Monocytes/100 WBC (Bld) Automated monocyte % 1.7-12.0 [facility] Monocytes/100 WBC (Bld) 8.3 % 1.7-12.0 [facility] Neutrophils Auto (Bld) [#/Vo l]on 04-18-2025 Neutrophils (Bld) [#/Vol] Neutrophils [#/volume] in Blood by Automated count 1.4-6.5 [facility] Neutrophils (Bld) [#/Vol] 4.1 10 3/uL 1.4-6.5 [facility] Neutrophils/100 WBC Auto (Bl d)on 04-18-2025 Neutrophils/100 WBC (Bld) Automated neutrophil % High 43.0-75.0 [facility] Neutrophils/100 WBC (Bld) 75.7 % High 43.0-75.0 [facility] No Panel Informationon 04-18 Urine Random Creatinine 49.06 mg/dL 20.00-300. 00 [facility] Eosinophils # (Auto) 0.1 10 3/uL 0.0-0.7 [facility] Immature Granulocyte # (Auto) 0.03 10 3/uL 0.00-0.03 [facility] Platelet mean volume Auto (B ld) [Entitic vol]on 04-18-2025 Platelet mean volume (Bld) [Entitic vol] Platelet mean volume [Entitic volume] in Blood by Automated count 9.5-13.5 [facility] Platelet mean volume (Bld) [Entitic vol] 10.2 fL 9.5-13.5 [facility] Platelets Auto (Bld) [#/Vol] on 04-18-2025 Platelets (Bld) [#/Vol] Platelets [#/volume] in Blood by Automated count 150-450 [facility] Platelets (Bld) [#/Vol] 194 10 3/uL 150-450 [facility] RBC Auto (Bld) [#/Vol]on RBC (Bld) [#/Vol] Erythrocytes [#/volu me] in Blood by Automated count 4.20-5.40 [facility] RBC (Bld) [#/Vol] 4.55 10 6/uL 4.20-5.40 [facility] Serum or plasma albumin/glob ulin mass ratioon 04-18-2025 Albumin/Globulin [Mass ratio] Serum or plasma albumin/globulin mass ratio [facility] Albumin/Globulin [Mass ratio] 1.0 {ratio} [facility] Serum or plasma anion gap de terminationon 04-18-2025 Anion gap [Moles/Vol] Serum or plasma anion gap determination [facility] Anion gap [Moles/Vol] 12.5 mmol/L [facility] Serum or plasma total choles terol/high density lipoprotein (HDL) cholesterol mass stephane 04-18-2025 Cholesterol.total/ Cholesterol in HDL [Mass ratio] Serum or plasma total cholesterol/high density lipoprotein (HDL) cholesterol mass rat [facility] Comment on above: 3.3 - 4.4 LOW RISK4. 4 - 7.1 AVERAGE RISK7.1 - 11.0 MODERATE RISK>11.0 HIGH RISK Cholesterol.total/ Cholesterol in HDL [Mass ratio] 1.8 {ratio} [facility] Comment on above: 3.3 - 4.4 LOW RISK4. 4 - 7.1 AVERAGE RISK7.1 - 11.0 MODERATE RISK>11.0 HIGH RISK Urine microalbumin/creatinin e mass ratioon 04-18-2025 Albumin/Creatinine DL <= 20 mg/L (U) [Mass ratio] Urine microalbumin/creatinine mass ratio High 0.0-29.9 [facility] Comment on above: NO MICROALBUMINURIA 0-29 MG/GCLINICAL MICROALBUMINURIA 30-300 MG/GMACROALBUMINURIA >300 MG/G Albumin/Creatinine DL <= 20 mg/L (U) [Mass ratio] 44.8 mg/g High 0.0-29.9 [facility] Comment on above: NO MICROALBUMINURIA [...] mm Hg 3077F 2. 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 Redundant colon [...] ago Toba (more content not included)... Normal [facility] Comment on above: Result Comment: Elec tronically Signed By: Goss MA, Carmen S\.br\Date and Time Signed: 04/11/25 10:07 EDT Ambulatory Visit Summaryon 0 04-01-2025 Ambulatory Visit Summary Ambulatory Visit Summary SANDRA TAVAREZ :1940 Visit Date:04/01/2025 Ambulatory Visit Instructions Your Diagnosis Cecal polyp Chronic anticoagulation Redundant colon Your Care Team Attending Physician - Lacie JENNINGS, Jeff Morales Primary Care Physician - ROBERT VAIL DO [...] you for choosing us for your care. [facility] Ambulatory Visit Summaryon 0 02-26-2025 Ambulatory Visit Summary Ambulatory Visit Summary SANDRA [...] for choosing us for your care. Normal [facility] INR in Platelet poor plasma by Coagulation assayOrdered By: Michael Dunaway on 12-26-2024 INR Coag (PPP) [Relative time] INR in Platelet poor plasma by Coagulation assay [facility] Comment on above: INR Therapeutic [...] (Bld) [Time] 29.0 s Normal 25.1-36.5 [facility] Comment on above: Result Comment: A he matocrit value greater than 55% may lead to inaccurate results in coagulation testing. Patients having hematocrit values >55% require a special collection tube for coagulation studies. Please contact the laboratory at [phone] for redraw instructions. PERFORMED BY: [place] [address] PATHOLOGIST INTEGRATION ASSISTANT ESDRAS MOREL M.D. Performed By: #### P T, PTT #### [facility] [address] [place] [address] Prothrombin Time INRon 12-26 INR Coag (PPP) [Relative time] 1.1 {INR} Normal [facility] Comment on above: Result Comment: [...] Performed By: #### P T, PTT #### [facility] [address] [place] [address] PT Coag (PPP) [Time] 13.1 s High 9.0-12.9 [facility] Comment on above: Result Comment: A he matocrit value greater than 55% may lead to inaccurate results in coagulation testing. Patients having hematocrit values >55% require a special collection tube for coagulation studies. Please contact the laboratory at [phone] for redraw instructions. Performed By: #### P T, PTT #### [facility] [address] Prothrombin time (PT)Ordered By: Michael Dunaway on 12-26-2024 PT Coag (PPP) [Time] Prothrombin time (PT) High 9.0-12.9 [facility] Comment on above: A hematocrit value g reater than 55% may lead to inaccurate results in coagulation testing. Patients having hematocrit values >55% require a special collection tube for coagulation studies. Please contact the laboratory at [phone] for redraw instructions. aPTT in Platelet poor plasma by Coagulation assayOrdered By: Michael Dunaway on 12-26-2024 aPTT Coag (PPP) [Time] Activated partial thromboplastin time (aPTT) in platelet poor plasma by coagulation a 25.1-36.5 [facility] Comment on above: A hematocrit value g reater than 55% may lead to inaccurate results in coagulation testing. Patients having hematocrit values >55% require a special collection tube for coagulation studies. Please contact the laboratory at [phone] for redraw instructions. INR in Platelet poor plasma by Coagulation assayOrdered By: Michael Dunaway on 12-24-2024 INR Coag (PPP) [Relative time] INR in Platelet poor plasma by Coagulation assay [facility] Comment on above: INR Therapeutic [...] (PPP) [Relative time] 1.6 {INR} Normal [facility] Comment on above: Result Comment: [...] heart valves: 3 - 4.5 PERFORMED BY: [place] [address] PATHOLOGIST INTEGRATION ASSISTANT ESDRAS MOREL M.D. Performed By: #### P T #### [place] [id number] [facility] PT Coag (PPP) [Time] 18.8 s High 9.0-12.9 [facility] Comment on above: Result Comment: A he matocrit value greater than 55% may lead to inaccurate results in coagulation testing. Patients having hematocrit values >55% require a special collection tube for coagulation studies. Please contact the laboratory at [phone] for redraw instructions. Performed By: #### P T #### [place] [id number] [facility] Prothrombin time (PT)Ordered By: Michael Dunaway on 12-24-2024 PT Coag (PPP) [Time] Prothrombin time (PT) High 9.0-12.9 [facility] Comment on above: A hematocrit value g reater than 55% may lead to inaccurate results in coagulation testing. Patients having hematocrit values >55% require a special collection tube for coagulation studies. Please contact the laboratory at [phone] for redraw instructions. Basophils Auto (Bld) [#/Vol] on 12-12-2024 Basophils (Bld) [#/Vol] Automated basophil count 0.0-0.1 [facility] Basophils/100 WBC Auto (Bld) on 12-12-2024 Basophils/100 WBC (Bld) Automated basophil % 0.2-2.0 [facility] Eosinophils/100 WBC Auto (Bl d)on 12-12-2024 Eosinophils/100 WBC (Bld) Automated eosinophil % 0.9-7.0 [facility] Erythrocyte distribution wid th Auto (RBC) [Ratio]on 12-12-2024 Erythrocyte distribution width (RBC) [Ratio] Erythrocyte distribution width [Ratio] by Automated count 11.0-15.0 [facility] Glucose mean value [Mass/vol ume] in Blood Estimated from glycated hemoglobinon 12-12-2024 Average glucose Estimated from glycated hemoglobin (Bld) [Mass/Vol] Glucose mean value [Mass/volume] in Blood Estimated from glycated hemoglobin [facility] Hematocrit Auto (Bld) [Volum e fraction]on 12-12-2024 Hematocrit (Bld) [Volume fraction] Hematocrit [Volume Fraction] of Blood by Automated count 36.0-48.0 [facility] Hemoglobin [Mass/volume] in Bloodon 12-12-2024 Hemoglobin (Bld) [Mass/Vol] Hemoglobin [Mass/volume] in Blood 12.0-16.0 [facility] Laboratory - Chemistry and C hemistry - challengeon 12-12-2024 Ferritin [Mass/Vol] 39.0 ng/mL 8.0-252.0 [facility] Laboratory - Hematology and Cell countson 12-12-2024 HbA1c (Bld) [Mass fraction] 6.5 % High 4.5-6.2 [facility] Comment on above: ADA RECOMMENDED LIMI T 4.0 - 6.0ADA THERAPEUTIC TARGET < 7.0ACTION SUGGESTED> 7.0 Immature granulocytes/100 WBC (Bld) 0.4 % 0.0-0.5 [facility] Leukocytes [#/volume] correc torri for nucleated erythrocytes in Blood by Automated counon 12-12-2024 WBC corrected for nucl RBC Auto (Bld) [#/Vol] Leukocytes [#/volume] corrected for nucleated erythrocytes in Blood by Automated coun 4.0-11.0 [facility] Lymphocytes Auto (Bld) [#/Vo l]on 12-12-2024 Lymphocytes (Bld) [#/Vol] Lymphocytes [#/volume] in Blood by Automated count Low 1.2-3.8 [facility] Lymphocytes/100 WBC Auto (Bl d)on 12-12-2024 Lymphocytes/100 WBC (Bld) Lymphocytes/100 leukocytes in Blood by Automated count Low 20.5-60.0 [facility] MCH Auto (RBC) [Entitic mass ]on 12-12-2024 MCH (RBC) [Entitic mass] MCH [Entitic mass] by Automated count 26.7-34.0 [facility] MCHC Auto (RBC) [Mass/Vol]on 12-12-2024 MCHC (RBC) [Mass/Vol] MCHC [Mass/volume] by Automated count 29.9-35.2 [facility] MCV Auto (RBC) [Entitic vol] on 12-12-2024 MCV (RBC) [Entitic vol] MCV [Entitic volume] by Automated count 81.0-99.0 [facility] Monocytes Auto (Bld) [#/Vol] on 12-12-2024 Monocytes (Bld) [#/Vol] Automated blood monocyte count 0.3-0.8 [facility] Monocytes/100 WBC Auto (Bld) on 12-12-2024 Monocytes/100 WBC (Bld) Automated monocyte % 1.7-12.0 [facility] Neutrophils Auto (Bld) [#/Vo l]on 12-12-2024 Neutrophils (Bld) [#/Vol] Neutrophils [#/volume] in Blood by Automated count 1.4-6.5 [facility] Neutrophils/100 WBC Auto (Bl d)on 12-12-2024 Neutrophils/100 WBC (Bld) Automated neutrophil % High 43.0-75.0 [facility] No Panel Informationon 12-12 Eosinophils # (Auto) 0.1 10 3/uL 0.0-0.7 [facility] Immature Granulocyte # (Auto) 0.02 10 3/uL 0.00-0.03 [facility] Platelet mean volume Auto (B ld) [Entitic vol]on 12-12-2024 Platelet mean volume (Bld) [Entitic vol] Platelet mean volume [Entitic volume] in Blood by Automated count 9.5-13.5 [facility] Platelets Auto (Bld) [#/Vol] on 12-12-2024 Platelets (Bld) [#/Vol] Platelets [#/volume] in Blood by Automated count 150-450 [facility] RBC Auto (Bld) [#/Vol]on RBC (Bld) [#/Vol] Erythrocytes [#/volu me] in Blood by Automated count 4.20-5.40 [facility] INR in Platelet poor plasma by Coagulation assayOrdered By: Michael Dunaway on 08-10-2024 INR Coag (PPP) [Relative time] 1.3 {INR} Normal [facility] Comment on above: INR Therapeutic [...] heart valves: 3 - 4.5 PERFORMED BY: [place] [address] PATHOLOGIST INTEGRATION ASSISTANT HERMELINDO BLUM M.D. Performed By: #### P T #### [facility] [address] [place] [address] Prothrombin time (PT)Ordered By: Michael Dunaway on 08-10-2024 PT Coag (PPP) [Time] 15.1 s High 9.0-12.9 [facility] Comment on above: A hematocrit value g reater than 55% may lead to inaccurate results in coagulation testing. Patients having hematocrit values >55% require a special collection tube for coagulation studies. Please contact the laboratory at [phone] for redraw instructions. Result Comment: A he matocrit value greater than 55% may lead to inaccurate results in coagulation testing. Patients having hematocrit values >55% require a special collection tube for coagulation studies. Please contact the laboratory at [phone] for redraw instructions. Performed By: #### P T #### [facility] [address] [place] [id number] INR in Platelet poor plasma by Coagulation assayOrdered By: Michael Dunaway on 08-09-2024 INR Coag (PPP) [Relative time] 1.7 {INR} Normal [facility] Comment on above: INR Therapeutic [...] heart valves: 3 - 4.5 PERFORMED BY: [place] [address] PATHOLOGIST INTEGRATION ASSISTANT HERMELINDO BLUM M.D. Performed By: #### P T #### [facility] [address] [place] [address] Prothrombin time (PT)Ordered By: Michael Dunaway on 08-09-2024 PT Coag (PPP) [Time] 19.0 s High 9.0-12.9 [facility] Comment on above: A hematocrit value g reater than 55% may lead to inaccurate results in coagulation testing. Patients having hematocrit values >55% require a special collection tube for coagulation studies. Please contact the laboratory at [phone] for redraw instructions. Result Comment: A he matocrit value greater than 55% may lead to inaccurate results in coagulation testing. Patients having hematocrit values >55% require a special collection tube for coagulation studies. Please contact the laboratory at [phone] for redraw instructions. Performed By: #### P T #### [facility] [address] [place] [address] [facility] MR lumbar spine wo conon MR lumbar spine wo con [facility] [place] [address] [place] [id number] MRI Report Signed Patient: Sandra Tavarez MR#: [id number] 7 : 1940 Acct:[id number] Age/Sex: 83 / F ADM Date: 06/15/24 Loc: MR Room: Type: [facility] Attending Dr: Michael Dunaway MD Copies [...] Tex Diaz M.D.06/15/2024 8:35 PM Dictation Location: [place] [address] Transcribed By: [facility] 06/15/242034 Dictated By: Tex Diaz II, MD 06/15/242025 Signed By: 06/15/242034 Normal [facility] INR in Platelet poor plasma by Coagulation assayon 05-16-2024 INR Coag (PPP) [Relative time] 1.36 {INR} [facility] Comment on above: DESIRED INR:2.0-3.0 CONDITIONS NOT LISTED BELOW2.5-3.5 FOR PROSTHETIC HEART VALVE REPLACEMENT2.5-3.5 RECURRENT THROMBOSIS Prothrombin time (PT)on 04-28 PT Coag (PPP) [Time] 14.0 s High 9.0-11.6 [facility] XR pelvis 1-2Von 05-09-2024 XR pelvis 1-2V [facility] [place] [address] XRay Report Signed Patient: Sandra Tavarez MR#: [id number] 7 : 1940 Acct:[id number] Age/Sex: 83 / F ADM Date: 05/07/24 Loc: XD Room: Type: PRE CLI Attending Dr: Michael Dunaway MD Copies to: Michael Dunaway MD Ordering Provider: Michael Dunaway MD Date of Service: 05/09/24 XR/XR pelvis 1-2V: M70.70 - Other bursitis of hip, unspecified hip ([id number]) XR/XR lumbar spine AP/LAT/FLX/EXT: M47.817 - Spondylosis without myelopathy or radiculopathy... ([id number]) XR/XR sacrum coccyx min 2V: M47.818 - [...] Orozco Jr., D.OKen05/09/2024 3:59 PM Dictation Location: [place] [address] Transcribed By: [facility] 05/09/24 1559 Dictated By: Jaspreet Orozco Jr, DO 05/09/24 1556 Signed By: 05/09/24 1559 [facility] INR in Platelet poor plasma by Coagulation assayOrdered By: Michael Dunaway on 05-07-2024 INR Coag (PPP) [Relative time] 2.0 {INR} Normal [facility] Comment on above: INR Therapeutic [...] heart valves: 3 - 4.5 PERFORMED BY: [place] [address] PATHOLOGIST INTEGRATION ASSISTANT HERMELINDO BLUM M.D. Performed By: #### P T #### [facility] [address] [place] [address] Prothrombin time (PT)Ordered By: Michael Dunaway on 05-07-2024 PT Coag (PPP) [Time] 22.3 s High 9.0-12.9 [facility] Comment on above: A hematocrit value g reater than 55% may lead to inaccurate results in coagulation testing. Patients having hematocrit values >55% require a special collection tube for coagulation studies. Please contact the laboratory at [phone] for redraw instructions. Result Comment: A he matocrit value greater than 55% may lead to inaccurate results in coagulation testing. Patients having hematocrit values >55% require a special collection tube for coagulation studies. Please contact the laboratory at [phone] for redraw instructions. Performed By: #### P T #### [facility] [address] [place] [address] Basophils Auto (Bld) [#/Vol] on 04-30-2024 Basophils (Bld) [#/Vol] 0.0 10 3/uL 0.0-0.1 [facility] Basophils/100 WBC Auto (Bld) on 04-30-2024 Basophils/100 WBC (Bld) 0.7 % 0.2-2.0 [facility] Cholesterol in LDL Calc [Mas s/Vol]on 04-30-2024 Cholesterol in LDL [Mass/Vol] 43.0 mg/dL [facility] Comment on above: <100 mg/dl [id number] 0-129 mg/dl NEAR OR ABOVE [id number] mg/dl BORDERLINE [id number] mg/dl HIGH>190 mg/dl VERY HIGH Cholesterol in VLDL Calc [Ma ss/Vol]on 04-30-2024 Cholesterol in VLDL [Mass/Vol] 10.6 mg/dL [facility] Eosinophils/100 WBC Auto (Bl d)on 04-30-2024 Eosinophils/100 WBC (Bld) 1.9 % 0.9-7.0 [facility] Erythrocyte distribution wid th Auto (RBC) [Ratio]on 04-30-2024 Erythrocyte distribution width (RBC) [Ratio] 13.6 % 11.0-15.0 [facility] Estimated glomerular filtrat ion rate (GFR) non- Americanon 04-30-2024 GFR/1.73 sq M.predicted among non-blacks MDRD (S/P/Bld) [Vol rate/Area] mL/min/{1.73_m2} >=60 [facility] Globulin Calc (S) [Mass/Vol] on 04-30-2024 Globulin (S) [Mass/Vol] 3.4 g/dL [facility] Glucose mean value [Mass/vol ume] in Blood Estimated from glycated hemoglobinon 04-30-2024 Average glucose Estimated from glycated hemoglobin (Bld) [Mass/Vol] 137 mg/dL [facility] Hematocrit Auto (Bld) [Volum e fraction]on 04-30-2024 Hematocrit (Bld) [Volume fraction] 39.8 % 36.0-48.0 [facility] Hemoglobin [Mass/volume] in Bloodon 04-30-2024 Hemoglobin (Bld) [Mass/Vol] 13.0 g/dL 12.0-16.0 [facility] Laboratory - Chemistry and C hemistry - challengeon 04-30-2024 Albumin [Mass/Vol] 3.5 g/dL 3.4-5.0 [facility] ALP [Catalytic activity/Vol] 89 U/L 46-116 [facility] ALT [Catalytic activity/Vol] 25 U/L 14-59 [facility] AST [Catalytic activity/Vol] 21 U/L 15-37 [facility] Bilirubin [Mass/Vol] 1.1 mg/dL High 0.2-1.0 [facility] Calcium [Mass/Vol] 9.3 mg/dL 8.5-10.1 [facility] Chloride [Moles/Vol] 105 mmol/L 98-107 [facility] Cholesterol [Mass/Vol] 123 mg/dL <=200 [facility] Cholesterol in HDL [Mass/Vol] 70 mg/dL High 40-60 [facility] Comment on above: > or =60 mg/dl - LOW CARDIOVASCULAR RISK<40 mg/dl - HIGH CARDIOVASCULAR RISK CO2 [Moles/Vol] 26.1 mmol/L 21.0-32.0 [facility] Creatinine [Mass/Vol] 0.71 mg/dL 0.55-1.02 [facility] GFR/1.73 sq M.predicted MDRD (S/P/Bld) [Vol rate/Area] mL/min/{1.73_m2} >=60 [facility] Glucose [Mass/Vol] 96 mg/dL 74-106 [facility] Potassium [Moles/Vol] 4.0 mmol/L 3.5-5.1 [facility] Protein [Mass/Vol] 6.9 g/dL 6.4-8.2 [facility] Sodium [Moles/Vol] 141 mmol/L 136-145 [facility] Triglyceride [Mass/Vol] 53 mg/dL <=150 [facility] TSH Qn 0.705 m[IU]/L 0.358-3.74 0 [facility] Urea nitrogen [Mass/Vol] 16.0 mg/dL 7.0-18.0 [facility] Urea nitrogen/Creatinin e [Mass ratio] 22.5 mg/mg [facility] Laboratory - Hematology and Cell countson 04-30-2024 HbA1c (Bld) [Mass fraction] 6.4 % High 4.5-6.2 [facility] Comment on above: ADA RECOMMENDED LIMI T 4.0 - 6.0ADA THERAPEUTIC TARGET < 7.0ACTION SUGGESTED> 7.0 Immature granulocytes/100 WBC (Bld) 0.4 % 0.0-0.5 [facility] Leukocytes [#/volume] correc torri for nucleated erythrocytes in Blood by Automated counon 04-30-2024 WBC corrected for nucl RBC Auto (Bld) [#/Vol] 5.3 10 3/uL 4.0-11.0 [facility] Lymphocytes Auto (Bld) [#/Vo l]on 04-30-2024 Lymphocytes (Bld) [#/Vol] 1.0 10 3/uL Low 1.2-3.8 [facility] Lymphocytes/100 WBC Auto (Bl d)on 04-30-2024 Lymphocytes/100 WBC (Bld) 17.8 % Low 20.5-60.0 [facility] MCH Auto (RBC) [Entitic mass ]on 04-30-2024 MCH (RBC) [Entitic mass] 30.1 pg 26.7-34.0 [facility] MCHC Auto (RBC) [Mass/Vol]on 04-30-2024 MCHC (RBC) [Mass/Vol] 32.7 g/dL 29.9-35.2 [facility] MCV Auto (RBC) [Entitic vol] on 04-30-2024 MCV (RBC) [Entitic vol] 92.1 fL 81.0-99.0 [facility] Monocytes Auto (Bld) [#/Vol] on 04-30-2024 Monocytes (Bld) [#/Vol] 0.6 10 3/uL 0.3-0.8 [facility] Monocytes/100 WBC Auto (Bld) on 04-30-2024 Monocytes/100 WBC (Bld) 10.3 % 1.7-12.0 [facility] Neutrophils Auto (Bld) [#/Vo l]on 04-30-2024 Neutrophils (Bld) [#/Vol] 3.7 10 3/uL 1.4-6.5 [facility] Neutrophils/100 WBC Auto (Bl d)on 04-30-2024 Neutrophils/100 WBC (Bld) 68.9 % 43.0-75.0 [facility] No Panel Informationon 04-30 Eosinophils # (Auto) 0.1 10 3/uL 0.0-0.7 [facility] Immature Granulocyte # (Auto) 0.02 10 3/uL 0.00-0.03 [facility] Platelet mean volume Auto (B ld) [Entitic vol]on 04-30-2024 Platelet mean volume (Bld) [Entitic vol] 10.5 fL 9.5-13.5 [facility] Platelets Auto (Bld) [#/Vol] on 04-30-2024 Platelets (Bld) [#/Vol] 188 10 3/uL 150-450 [facility] RBC Auto (Bld) [#/Vol]on RBC (Bld) [#/Vol] 4.32 10 6/uL 4.20-5.40 [facility] Serum or plasma albumin/glob ulin mass ratioon 04-30-2024 Albumin/Globulin [Mass ratio] 1.0 {ratio} [facility] Serum or plasma anion gap de terminationon 04-30-2024 Anion gap [Moles/Vol] 13.9 mmol/L [facility] Serum or plasma total choles terol/high density lipoprotein (HDL) cholesterol mass stephane 04-30-2024 Cholesterol.total/ Cholesterol in HDL [Mass ratio] 1.8 {ratio} [facility] Comment on above: 3.3 - 4.4 LOW RISK4. 4 - 7.1 AVERAGE RISK7.1 - 11.0 MODERATE RISK>11.0 HIGH RISK Bacteria identified Aer cx N om (Unsp spec)Ordered By: Juancarlos Campbell on 01-12-2024 Superficial Wound Culture Pseudomonas aeruginosa [facility] Superficial Wound Cultureon 01-12-2024 Superficial [...] RESISTANT TO ALL B-LACTAM DRUGS. PERFORMED BY: [place] [address] PATHOLOGIST INTEGRATION ASSISTANT HERMELINDO BLUM M.D. [facility] Comment on above: Performed By: #### C [facility] #### [address] MG MAMM SCREEN 3D KRISTOFER CADon 04-07-2023 MG MAMM SCREEN 3D KRISTOFER CAD Patient: SANDRA TAVAREZ Exam Date: 04/07/2023 : 1940 Gender:F Ordering : DR ROBERT VAIL D.O. Admission #: [id number] Family : Order #: [id number] CLICK HERE TO VIEW EXAM RADIOLOGY REPORT [...] leukemia cancer at age 43. LOCATION: [facility] BREAST COMPOSITION: Scattered areas fibroglandular density. [...] M.D. on 04/07/2023 at 14:36 Normal [facility] CBC AUTO DIFFon 03-14-2023 BASO # 0.1 103/ul Normal 0.0-0.1 [facility] Comment on above: Performed By: #### C BC ####[facility] [address] [place] [address]DrKen Louis Basophils/100 WBC (Bld) 0.9 % Normal 0.2-2.0 [facility] Comment on above: Performed By: #### C BC ####[facility] [address] [place], [place] [address]DrKen Louis EO # 0.1 103/ul Normal 0.0-0.7 [facility] Comment on above: Performed By: #### C BC ####[facility] [address] [place], [place] [address]DrKen Louis Eosinophils/100 WBC (Bld) 1.2 % Normal 0.9-7.0 [facility] Comment on above: Performed By: #### C BC ####[facility] [address] [place], [place] [address]DrKen Louis Erythrocyte distribution width (RBC) [Ratio] 13.2 % Normal 11.0-15.0 [facility] Comment on above: Performed By: #### C BC ####[facility] [address] [place], [place] [address]DrKen Louis Hematocrit (Bld) [Volume fraction] 44.1 % Normal 36.0-48.0 [facility] Comment on above: Performed By: #### C BC ####[facility] [address] [place] [address]Dr. Gaurav Louis Hemoglobin (Bld) [Mass/Vol] 14.7 g/dL Normal 12.0-16.0 [facility] Comment on above: Performed By: #### C BC ####[facility] [address] [place], [place] [address]Dr. Gaurav Louis IG # 0.02 10e3/ul Normal 0.00-0.03 [facility] Comment on above: Performed By: #### C BC ####[facility] [address] [place], [place] [address]Dr. Gaurav Louis IG % 0.4 % Normal 0.0-0.5 [facility] Comment on above: Performed By: #### C BC ####[facility] [address] [place], [place] [address]Dr. Gaurav Louis LYMPH # 0.9 103/ul Critically low 1.2-3.8 [facility] Comment on above: Performed By: #### C BC ####[facility] [address] [place], [place] [address]Dr. Gaurav Louis Lymphocytes/100 WBC (Bld) 16.5 % Critically low 20.5-60.0 [facility] Comment on above: Performed By: #### C BC ####[facility] [address] [place], [place] [address]DrKen Louis MANUAL DIFF REQ NO Normal [facility] Comment on above: Performed By: #### C BC ####[facility] [address] [place], [place] [address]Dr. Gaurav Louis MCH (RBC) [Entitic mass] 30.7 pg Normal 26.7-34.0 [facility] Comment on above: Performed By: #### C BC ####[facility] [address] [place], [place] [address]Dr. Gaurav Louis MCHC (RBC) [Mass/Vol] 33.3 g/dL Normal 29.9-35.2 [facility] Comment on above: Performed By: #### C BC ####[facility] [address] [place] [address]DrKen Louis MCV (RBC) [Entitic vol] 92.1 fL Normal 81.0-99.0 [facility] Comment on above: Performed By: #### C BC ####[facility] [address] [place], [place] [address]DrKen Louis MONO # 0.5 103/ul Normal 0.3-0.8 [facility] Comment on above: Performed By: #### C BC ####[facility] [address] [place], [place] [address]DrKen Louis Monocytes/100 WBC (Bld) 8.0 % Normal 1.7-12.0 [facility] Comment on above: Performed By: #### C BC ####[facility] [address] [place], [place] [address]DrKen Louis NEUT # 4.1 103/ul Normal 1.4-6.5 [facility] Comment on above: Performed By: #### C BC ####[facility] [address] [place], [place] [address]DrKen Louis Neutrophils/100 WBC (Bld) 73.0 % Normal 43.0-75.0 [facility] Comment on above: Performed By: #### C BC ####[facility] [address] [place], [place] [address]DrKen Louis Platelet mean volume (Bld) [Entitic vol] 10.0 fL Normal 9.5-13.5 [facility] Comment on above: Performed By: #### C BC ####[facility] [address] [place], [place] [address]DrKen Louis PLT 184 103/ul Normal 150-450 [facility] Comment on above: Performed By: #### C BC ####[facility] [address] [place], [place] [address]Dr. Gaurav Louis RBC 4.79 106/ul Normal 4.20-5.40 [facility] Comment on above: Performed By: #### C BC ####[facility] [address] [place], [place] [address]VxDr. Gaurav Louis WBC 5.6 103/ul Normal 4.0-11.0 [facility] Comment on above: Performed By: #### C BC ####[facility] [address] [place] [id number]. Gaurav Louis GLYCOHEMOGLOBIN A1Con 2022 ADA RECOMMENDATION SEE BELOW Normal [facility] Comment on above: Result Comment: ADA RECOMMENDED LIMIT 4.0 - 6.0 ADA THERAPEUTIC TARGET < 7.0 ACTION SUGGESTED > 7.0 Performed By: #### A 1C #### [facility] [address] [place] [address] [address] Gaurav Louis Glucose [Mass/Vol] 148 mg/dL Normal [facility] Comment on above: Performed By: #### A 1C #### [facility] [address] [place] [address] [address] Gaurav Louis HbA1c (Bld) [Mass fraction] 6.8 % Critically high 4.5-6.2 [facility] Comment on above: Performed By: #### A 1C #### [facility] [address] [place] [address] [address] Gaurav Louis LIPID PROFILEon 03-14-2023 CHOL-HDL RATIO NORM SEE BELOW Normal [facility] Comment on above: Result Comment: 3.3 - 4.4 LOW RISK 4.4 - 7.1 AVERAGE RISK 7.1 - 11.0 MODERATE RISK >11.0 HIGH RISK Performed By: #### T SH, LIPID, BMP #### [facility] [address] [place] [address] [address] Gaurav Louis Cholesterol [Mass/Vol] 137 mg/dL Normal <=200 [facility] Comment on above: Performed By: #### T SH, LIPID, BMP #### [facility] [address] [place] [address] [address] Gaurav Louis Cholesterol in HDL [Mass/Vol] 63 mg/dL Critically high 40-60 [facility] Comment on above: Performed By: #### T SH, LIPID, BMP #### [facility] [address] [place] [address] [address] Gaurav Louis Cholesterol in LDL [Mass/Vol] 57.8 mg/dL Normal [facility] Comment on above: Performed By: #### T SH, LIPID, BMP #### [facility] [address] [place] [address] [address] Gaurav Louis Cholesterol.total/ Cholesterol in HDL [Mass ratio] 2.2 {ratio} Normal [facility] Comment on above: Performed By: #### T SH, LIPID, BMP #### [facility] [address] [place] [address] Dr. Gaurav Louis HDL NORMAL > or = 60 mg/dl - LO W CARDIOVASCULAR RISK <40 mg/dl - HIGH CARDIOVASCULAR RISK Normal [facility] Comment on above: Performed By: #### T SH, LIPID, BMP #### [facility] [address] [address] [address] Gaurav Louis LDL CALC NORMAL SEE BELOW Normal [facility] Comment on above: Result Comment: <100 mg/dl OPTIMAL 100 - 129 mg/dl NEAR OR ABOVE OPTIMAL 130 - 159 mg/dl BORDERLINE HIGH 160 - 189 mg/dl HIGH >190 mg/dl VERY HIGH Performed By: #### T SH, LIPID, BMP #### [facility] [address] [place] [address] Dr. Gaurav Louis Triglyceride [Mass/Vol] 81 mg/dL Normal <=150 [facility] Comment on above: Performed By: #### T SH, LIPID, BMP #### [facility] [address] [place] [address] Dr. Gaurav Louis VLDL CALC 16.2 mg/dL Normal [facility] Comment on above: Performed By: #### T SH, LIPID, BMP #### [facility] [address] [place] [address] Dr. Gaurav Louis MICROALBUMIN, RAND URon 04-1 mALB 2.8 mg/L Normal <=30.0 [facility] Comment on above: Performed By: #### M ALBR #### [facility] [address] [place] [address] Dr. Gaurav Louis PROF CHEM 8 (BAS METB)on Anion gap [Moles/Vol] 13.4 mmol/L Normal [facility] Comment on above: Performed By: #### T SH, LIPID, BMP #### [facility] [address] [place] [address] Dr. Gaurav Louis Calcium [Mass/Vol] 9.7 mg/dL Normal 8.5-10.1 [facility] Comment on above: Performed By: #### T SH, LIPID, BMP #### [facility] [address] [place] [address] Dr. Gaurav Louis Chloride [Moles/Vol] 103 mmol/L Normal 98-107 [facility] Comment on above: Performed By: #### T SH, LIPID, BMP #### [facility] [address] [place] [address] Dr. Gaurav Louis CO2 [Moles/Vol] 28.2 mmol/L Normal 21.0-32.0 [facility] Comment on above: Performed By: #### T SH, LIPID, BMP #### [facility] [address] [place] [address] Dr. Gaurav Louis Creatinine [Mass/Vol] 0.94 mg/dL Normal 0.55-1.02 [facility] Comment on above: Performed By: #### T SH, LIPID, BMP #### [facility] [address] [place] [address] Dr. Gaurav Louis EGFR-AF GIBRALTARIAN >60 Normal >=60 [facility] Comment on above: Performed By: #### T SH, LIPID, BMP #### [facility] [address] [place] [address] Dr. Gaurav Louis EGFR-NON AF GIBRALTARIAN 57 mL/min/1.73m2 Critically low >=60 [facility] Comment on above: Performed By: #### T SH, LIPID, BMP #### [facility] [address] [place] [address] Dr. Gaurav Louis Glucose [Mass/Vol] 155 mg/dL Critically high 74-106 [facility] Comment on above: Performed By: #### T TANIKA LIPID, BMP #### [facility] [address] [place] [address] Dr. Gaurav Louis Potassium [Moles/Vol] 3.6 mmol/L Normal 3.5-5.1 [facility] Comment on above: Performed By: #### T TANIKA LIPID, BMP #### [facility] [address] [place] [address] Dr. Gaurav Louis Sodium [Moles/Vol] 141 mmol/L Normal 136-145 [facility] Comment on above: Performed By: #### T TANIKA LIPID, BMP #### [facility] [address] [place] [address] Dr. Gaurav Louis Urea nitrogen [Mass/Vol] 19.0 mg/dL Critically high 7.0-18.0 [facility] Comment on above: Performed By: #### T TANIKA LIPID, BMP #### [facility] [address] [place] [address] Dr. Gaurav Louis Urea nitrogen/Creatinin e [Mass ratio] 20.2 mg/mg Normal [facility] Comment on above: Performed By: #### T TANIKA LIPID, BMP #### [facility] [address] [place] [address] Dr. Gaurav Louis TSHon 03-14-2023 TSH 0.784 uIU/mL Normal 0.358-3.74 0 [facility] Comment on above: Performed By: #### T TANIKA LIPID, BMP #### [facility] [address] [place] [address] Dr. Gaurav Louis SARS-CoV-2 (COVID-19) RNA NA A+probe Ql (Resp)on 09-11-2022 SARS-CoV-2 (COVID-19) RNA LANDEN+probe Ql (Unsp spec) Positive [facility] Other CBC AUTO DIFFon 07-06-2022 BASO # 0.1 103/ul Normal 0.0-0.1 [facility] Comment on above: Performed By: #### C BC #### [facility] [address] [place] [address] Dr. Gaurav Louis Basophils/100 WBC (Bld) 0.5 % Normal 0.2-2.0 [facility] Comment on above: Performed By: #### C BC #### [facility] [address] [place] [address] Dr. Gaurav Louis EO # 0.1 103/ul Normal 0.0-0.7 [facility] Comment on above: Performed By: #### C BC #### [facility] [address] [place] [address] Dr. Gaurav Louis Eosinophils/100 WBC (Bld) 0.7 % Critically low 0.9-7.0 [facility] Comment on above: Performed By: #### C BC #### [facility] [address] [place] [address] Dr. Gaurav Louis Erythrocyte distribution width (RBC) [Ratio] 22.5 % Critically high 11.0-15.0 [facility] Comment on above: Result Comment: 2+ a nisocytosis Performed By: #### C BC #### [facility] [address] [place] [address] Dr. Gaurav Louis Hematocrit (Bld) [Volume fraction] 41.4 % Normal 36.0-48.0 [facility] Comment on above: Performed By: #### C BC #### [facility] [address] [place] [address] Dr. Gaurav Louis Hemoglobin (Bld) [Mass/Vol] 13.4 g/dL Normal 12.0-16.0 [facility] Comment on above: Performed By: #### C BC #### [facility] [address] [place] [address] Dr. Gaurav Louis IG # 0.04 10e3/ul Critically high 0.00-0.03 [facility] Comment on above: Performed By: #### C BC #### [facility] [address] [place] [address] Dr. Gaurav Louis IG % 0.4 % Normal 0.0-0.5 [facility] Comment on above: Performed By: #### C BC #### [facility] [address] [address] [address] Gaurav Louis LYMPH # 1.1 103/ul Critically low 1.2-3.8 [facility] Comment on above: Performed By: #### C BC #### [facility] [address] [place] [address] Dr. Gaurav Louis Lymphocytes/100 WBC (Bld) 10.2 % Critically low 20.5-60.0 [facility] Comment on above: Performed By: #### C BC #### [facility] [address] [place] [address] Dr. Gaurav Louis MANUAL DIFF REQ NO Normal [facility] Comment on above: Performed By: #### C BC #### [facility] [address] [place] [address] Dr. Gaurav Louis MCH (RBC) [Entitic mass] 28.3 pg Normal 26.7-34.0 [facility] Comment on above: Performed By: #### C BC #### [facility] [address] [place] [address] Dr. Gaurav Louis MCHC (RBC) [Mass/Vol] 32.4 g/dL Normal 29.9-35.2 [facility] Comment on above: Performed By: #### C BC #### [facility] [address] [place] [address] Dr. Gaurav Louis MCV (RBC) [Entitic vol] 87.5 fL Normal 81.0-99.0 [facility] Comment on above: Performed By: #### C BC #### [facility] [address] [place] [address] Dr. Gaurav Louis MONO # 0.8 103/ul Normal 0.3-0.8 [facility] Comment on above: Performed By: #### C BC #### [facility] [address] [place] [address] Dr. Gaurav Louis Monocytes/100 WBC (Bld) 7.3 % Normal 1.7-12.0 [facility] Comment on above: Performed By: #### C BC #### [facility] [address] [address] [address] Gaurav Louis NEUT # 8.4 103/ul Critically high 1.4-6.5 [facility] Comment on above: Performed By: #### C BC #### [facility] [address] [address] [address] Gaurav Louis Neutrophils/100 WBC (Bld) 80.9 % Critically high 43.0-75.0 [facility] Comment on above: Performed By: #### C BC #### [facility] [address] [place] [address] Dr. Gaurav Louis Platelet mean volume (Bld) [Entitic vol] 10.0 fL Normal 9.5-13.5 [facility] Comment on above: Performed By: #### C BC #### [facility] [address] [place] [address] Dr. Gaurav Louis PLT 178 103/ul Normal 150-450 [facility] Comment on above: Performed By: #### C BC #### [facility] [address] [place] [address] Dr. Gaurav Louis RBC 4.73 106/ul Normal 4.20-5.40 [facility] Comment on above: Performed By: #### C BC #### [facility] [address] [place] [address] Dr. Gaurav Louis WBC 10.3 103/ul Normal 4.0-11.0 [facility] Comment on above: Performed By: #### C BC #### [facility] [address] [place] [address] Dr. Gaurav Louis US SINGLE QUAD LT [...] NIDA ALVAREZ Date: 2022-04-30 18:10 Normal [facility] CBC AUTO DIFFon 04-13-2022 BASO # 0.0 103/ul Normal 0.0-0.1 [facility] Comment on above: Performed By: #### C BC #### [facility] [address] [place] [address] Dr. Gaurav Louis Basophils/100 WBC (Bld) 0.6 % Normal 0.2-2.0 [facility] Comment on above: Performed By: #### C BC #### [facility] [address] [place] [address] Dr. Gaurav Louis EO # 0.1 103/ul Normal 0.0-0.7 [facility] Comment on above: Performed By: #### C BC #### [facility] [address] [place] [address] Dr. Gaurav Louis Eosinophils/100 WBC (Bld) 1.7 % Normal 0.9-7.0 [facility] Comment on above: Performed By: #### C BC #### [facility] [address] [place] [address] Dr. Gaurav Louis Erythrocyte distribution width (RBC) [Ratio] 21.1 % Critically high 11.0-15.0 [facility] Comment on above: Performed By: #### C BC #### [facility] [address] [place] [address] Dr. Gaurav Louis Hematocrit (Bld) [Volume fraction] 33.6 % Critically low 36.0-48.0 [facility] Comment on above: Performed By: #### C BC #### [facility] [address] [place] [address] Dr. Gaurav Louis Hemoglobin (Bld) [Mass/Vol] 10.0 g/dL Critically low 12.0-16.0 [facility] Comment on above: Performed By: #### C BC #### [facility] [address] [place] [address] Dr. Gaurav Louis IG # 0.02 10e3/ul Normal 0.00-0.03 [facility] Comment on above: Performed By: #### C BC #### [facility] [address] [address] [address] Gaurav Louis IG % 0.4 % Normal 0.0-0.5 [facility] Comment on above: Performed By: #### C BC #### [facility] [address] [address] [address] Gaurav Louis LYMPH # 1.0 103/ul Critically low 1.2-3.8 [facility] Comment on above: Performed By: #### C BC #### [facility] [address] [place] [address] Dr. Gaurav Louis Lymphocytes/100 WBC (Bld) 18.3 % Critically low 20.5-60.0 [facility] Comment on above: Performed By: #### C BC #### [facility] [address] [place] [address] Dr. Gaurav Louis MANUAL DIFF REQ NO Normal [facility] Comment on above: Performed By: #### C BC #### [facility] [address] [place] [address] Dr. Gaurav Louis MCH (RBC) [Entitic mass] 22.8 pg Critically low 26.7-34.0 [facility] Comment on above: Performed By: #### C BC #### [facility] [address] [place] [address] Dr. Gaurav Louis MCHC (RBC) [Mass/Vol] 29.8 g/dL Critically low 29.9-35.2 [facility] Comment on above: Performed By: #### C BC #### [facility] [address] [place] [address] Dr. Gaurav Louis MCV (RBC) [Entitic vol] 76.7 fL Critically low 81.0-99.0 [facility] Comment on above: Performed By: #### C BC #### [facility] [address] [place] [address] Dr. Gaurav Louis MONO # 0.5 103/ul Normal 0.3-0.8 [facility] Comment on above: Performed By: #### C BC #### [facility] [address] [place] [address] Dr. Gaurav Louis Monocytes/100 WBC (Bld) 8.8 % Normal 1.7-12.0 [facility] Comment on above: Performed By: #### C BC #### [facility] [address] [address] [address] Gaurav Louis NEUT # 3.8 103/ul Normal 1.4-6.5 [facility] Comment on above: Performed By: #### C BC #### [facility] [address] [place] [address] Dr. Gaurav Louis Neutrophils/100 WBC (Bld) 70.2 % Normal 43.0-75.0 [facility] Comment on above: Performed By: #### C BC #### [facility] [address] [place] [address] Dr. Gaurav Louis Platelet mean volume (Bld) [Entitic vol] 9.4 fL Critically low 9.5-13.5 [facility] Comment on above: Performed By: #### C BC #### [facility] [address] [place] [address] Dr. Gaurav Louis PLT 226 103/ul Normal 150-450 [facility] Comment on above: Performed By: #### C BC #### [facility] [address] [place] [address] Dr. Gaurav Louis RBC 4.38 106/ul Normal 4.20-5.40 [facility] Comment on above: Performed By: #### C BC #### [facility] [address] [place] [address] Dr. Gaurav Louis WBC 5.4 103/ul Normal 4.0-11.0 [facility] Comment on above: Performed By: #### C BC #### [facility] [address] [place] [address] Dr. Gaurav Louis XR ankle LT min 3V*on 2020 XR ankle LT min 3V* [facility] [employer] Other XR ankle LT min 3V* [facility] [employer] Other XR ankle LT min 3V* [address] [employer] Other XR ankle LT min 3V* LASHONDA Esposito [address] [employer] Other XR ankle LT min 3V* XRay Report [employer] Other XR ankle LT min 3V* Signed [employer] Other XR ankle LT min 3V* Patient: Sandra Tavarez MR#: [id number] [employer] Other XR ankle LT min 3V* 7 [employer] Other XR ankle LT min 3V* : 1940 Acct:[id number] [employer] Other XR ankle LT min 3V* Age/Sex: 80 / F ADM Date: 11/07/21 [employer] Other XR ankle LT min 3V* Loc: XDUCLY Room: Type: [facility] [employer] Other XR ankle LT min 3V* Attending Dr: Quita ZUNIGA [employer] Other XR ankle LT min 3V* Ordering Provider: NADIA Winslow [employer] Other XR ankle LT min 3V* Date of Service: 11/07/21 [employer] Other XR ankle LT min 3V* XR/XR ankle LT min 3V*: Acute left ankle pain [employer] Other XR ankle LT min 3V* Copies to: NADIA Winslow [employer] Other XR ankle LT min 3V* XR ankle LT min 3V* 11/07/2021 12:15 PM [employer] Other XR ankle LT min 3V* SIGNS AND SYMPTOMS: Pain along the left Achilles and lateral aspect of the calcaneus, limited range [employer] Other XR ankle LT min 3V* of motion [employer] Other XR ankle LT min 3V* PROTOCOL: Frontal, lateral, and oblique radiographs of the left ankle [employer] Other XR ankle LT min 3V* COMPARISON: None [facility] Other XR ankle LT min 3V* FINDINGS: [employer] Other XR ankle LT min 3V* The ankle mortise is preserved. There is cortical irregularity along the inferior margin of the [employer] Other XR ankle LT min 3V* lateral malleolus which may represent sequelae of a previous avulsive-type injury. There is soft [employer] Other XR ankle LT min 3V* tissue swelling diffusely but greatest along the dorsal soft tissues. There is plantar surface [facility] Other XR ankle LT min 3V* calcaneal spurring. Vascular calcifications are present. Degenerative changes are noted in the [employer] Other XR ankle LT min 3V* midfoot. [employer] Other XR ankle LT min 3V* XR/XR ankle LT min 3V* [facility] Other XR ankle LT min 3V* IMPRESSION: [employer] Other XR ankle LT min 3V* No acute displaced fracture. Nor [employer] Other XR ankle LT min 3V* Diffuse soft tissue swelling greatest posteriorly. [employer] Other XR ankle LT min 3V* There is plantar surface calcaneal spurring. [facility] Other XR ankle LT min 3V* Impression dictated by: Tex Diaz M.D.11/07/2021 12:50 PM [facility] Other XR ankle LT min 3V* Dictation Location: [address] [place] [address] [employer] Other XR ankle LT min 3V* Transcribed By: SHAHIDA 11/07/21 1250 [facility] Other XR ankle LT min 3V* Dictated By: eTx Diaz II, MD 11/07/21 1248 [facility] Other XR ankle LT min 3V* Signed By: [facility] Other XR ankle LT min 3V* 11/07/21 1250 [facility] Other [facility] Preoperative Recordon 0 06-04-2020 [facility] Preoperative Record [facility] Pre-Op Record Summary Primary Physician: FERNANDO SILVA Finalized Date/Time: 06/04/20 08:46:37 Pt. Name: BARBARA TAVAREZRA Lyndsay White/Sex: 1940 FEMALE Med Rec #: [id number] Physician: FERNANDO SILVA Financial #: [id number] Pt. Type: I Room/Bed: [facility] Admit/Disch: 05/23/20 09:44:18 - 05/27/20 15:15:00 Institution: [...] Signed By: Stacy Pena RN 06/04/20 08:46 [facility] Consent Formson 05-28-2020 Consent Forms [id number]#[facility].00[facility] 05-28-2020 Outside Records [id number]#1.00[facility] [id number]#1.00[facility] Provider Orderson 05-28-2020 Provider Orders [id number]#1.00[facility] Tele[facility] Stripson 0 Telemetry Strips [id number]#1.00[facility] .Auto Diff 1on 05-27-2020 Auto Borden % 13 % High 1-12 [facility] Comment on above: Performed By: #### 1 [id number], [id number], [id number] #### [facility] (DEFAULT) [address] [place] [address] Baso Abs# 0.0 x10 Normal 0.0-0.2 [facility] Comment on above: Performed By: #### 1 [id number], [id number], [id number] #### [facility] (DEFAULT) [address] [place] [address] Basophils/100 WBC (Bld) 0.3 % Normal 0.2-2.0 [facility] Comment on above: Performed By: #### 1 [id number], [id number], [id number] #### [facility] (DEFAULT) [address] [place] [address] Eos Abs# 0.1 x10 Normal 0.0-0.4 [facility] Comment on above: Performed By: #### 1 [id number], [id number], [id number] #### [facility] (DEFAULT) [address] [place] [address] Eosinophils/100 WBC (Bld) 1.4 % Normal 0.9-4.0 [facility] Comment on above: Performed By: #### 1 [id number], [id number], [id number] #### [facility] (DEFAULT) [address] [place] [address] Lymphocytes (Bld) [#/Vol] 1.4 x10 Normal 1.3-2.9 [facility] Comment on above: Performed By: #### 1 [id number], [id number], [id number] #### [facility] (DEFAULT) [address] [place] [address] Lymphocytes/100 WBC (Bld) 16 % Normal 14-48 [facility] Comment on above: Performed By: #### 1 [id number], [id number], [id number] #### [facility] (DEFAULT) [address] [place] [address] Borden Abs# 1.1 x10 High 0.0-0.8 [facility] Comment on above: Performed By: #### 1 [id number], [id number], [id number] #### [facility] (DEFAULT) [address] [place] [address] Neut Abs# 6.1 x10 Normal 1.5-9.2 [facility] Comment on above: Performed By: #### 1 [id number], [id number], [id number] #### [facility] (DEFAULT) [address] [place] [address] Neutrophils/100 WBC (Bld) 70 % Normal 44-88 [facility] Comment on above: Performed By: #### 1 [id number], [id number], [id number] #### [facility] (DEFAULT) [address] [place] [address] BMP Standardon 05-27-2020 eGFR Non AA >60 [facility] Comment on above: Performed By: #### 1 [id number], [id number], [id number] #### [facility] (DEFAULT) [address] [place] [address]371 eGFR AA >60 [facility] Comment on above: Result Comment: Wind Up Operator ghazal Kidney disease could be indicated at eGFRs of less than 60 ml/min/1.73m2. Kidney Failure is indicated at less than 15 ml/min/1.73m2 Performed By: #### 1 [id number], [id number], [id number] #### [facility] (DEFAULT) [address] [place] [address] Anion gap [Moles/Vol] 15.0 mmol/L Normal 5.0-19.0 [facility] Comment on above: Performed By: #### 1 [id number], [id number], [id number] #### [facility] (DEFAULT) [address] [place] [address]689 Calcium [Mass/Vol] 9.2 mg/dL Normal 8.9-10.3 [facility] Comment on above: Performed By: #### 1 [id number], [id number], [id number] #### [facility] (DEFAULT) [address] [place] [address]677 Chloride [Moles/Vol] 101 mmol/L Normal 101-111 [facility] Comment on above: Performed By: #### 1 [id number], [id number], [id number] #### [facility] (DEFAULT) [address] [place] [address]308 CO2 [Moles/Vol] 26 mmol/L Normal 21-32 [facility] Comment on above: Performed By: #### 1 [id number], [id number], [id number] #### [facility] (DEFAULT) [address] [place] [address] Creatinine [Mass/Vol] 0.58 mg/dL Low 0.60-1.30 [facility] Comment on above: Performed By: #### 1 [id number], [id number], [id number] #### [facility] (DEFAULT) [address] [place] [address]459 Glucose [Mass/Vol] 120.0 mg/dL High 74.0-118.0 [facility] Comment on above: Performed By: #### 1 [id number], [id number], [id number] #### [facility] (DEFAULT) [address] [place] [address]478 Osmolality [Osmolality] 279 mOsm/L [facility] Comment on above: Performed By: #### 1 [id number], [id number], [id number] #### [facility] (DEFAULT) [address] [place] [address]674 Potassium [Moles/Vol] 3.7 mmol/L Normal 3.6-5.1 [facility] Comment on above: Performed By: #### 1 [id number], [id number], [id number] #### [facility] (DEFAULT) [address] [place] [address] Sodium [Moles/Vol] 138.0 mmol/L Normal 136.0-144 . 0 [facility] Comment on above: Performed By: #### 1 [id number], [id number], [id number] #### [facility] (DEFAULT) [address] [place] [address]1170 Urea nitrogen [Mass/Vol] 19 mg/dL Normal 8-26 [facility] Comment on above: Performed By: #### 1 [id number], [id number], [id number] #### [facility] (DEFAULT) [address] [place] [address] Urea nitrogen/Creatinin e [Mass ratio] 33.0 mg/mg High 4.6-16.2 [facility] Comment on above: Performed By: #### 1 [id number], [id number], [id number] #### [facility] (DEFAULT) [address] [place] [address] CBC w/ Auto Diffon 0 Erythrocyte distribution width (RBC) [Ratio] 18.4 % High 11.5-15.0 [facility] Comment on above: Performed By: #### 1 [id number], [id number], [id number] #### [facility] (DEFAULT) [address] [place] [address] Hematocrit (Bld) [Volume fraction] 29.7 % Low 33.7-40.4 [facility] Comment on above: Performed By: #### 1 [id number], [id number], [id number] #### [facility] (DEFAULT) [address] [place] [address] 99430 Hemoglobin (Bld) [Mass/Vol] 9.0 g/dL Low 11.3-15.9 [facility] Comment on above: Performed By: #### 1 [id number], [id number], [id number] #### [facility] (DEFAULT) [address] [place] [address] 14326 Man Diff? Auto Normal [facility] Comment on above: Performed By: #### 1 [id number], [id number], [id number] #### [facility] (DEFAULT) [address] [place] [address] 43198 MCH (RBC) [Entitic mass] 25 pg Normal 24-34 [facility] Comment on above: Performed By: #### 1 [id number], [id number], [id number] #### [facility] (DEFAULT) [address] [place] [address] 37046 MCHC (RBC) [Mass/Vol] 30 g/dL Normal 26-37 [facility] Comment on above: Performed By: #### 1 [id number], [id number], [id number] #### [facility] (DEFAULT) [address] [place] [address] 32353 MCV (RBC) [Entitic vol] 82 fL Normal 81-100 [facility] Comment on above: Performed By: #### 1 [id number], [id number], 9840099 #### [facility] (DEFAULT) [address] [place] [address] 77866 Platelet mean volume (Bld) [Entitic vol] 10.7 fL High 6.3-10.2 [facility] Comment on above: Performed By: #### 1 [id number], [id number], [id number] #### [facility] (DEFAULT) [address] [place] [address] 50151 Platelets (Bld) [#/Vol] 230 x10 Normal 138-427 [facility] Comment on above: Performed By: #### 1 [id number], [id number], [id number] #### [facility] (DEFAULT) [address] [place] [address] 35256 RBC (Bld) [#/Vol] 3.60 x10 Low 3.70-5.30 [facility] Comment on above: Performed By: #### 1 [id number], [id number], [id number] #### [facility] (DEFAULT) [address] [place] [address] 29217 WBC (Bld) [#/Vol] 8.8 x10 [facility] Comment on above: Performed By: #### 1 [id number], [id number], [id number] #### [facility] (DEFAULT) [address] [place] [address] 72652 Coding Summaryon 05-27-2020 Coding Summary CODING DATE: 020 FINAL [facility] STATUS: Transfer to Prison PAYOR: Medicare Grouper: 470 MS-DRG MAJOR HIP AND KNEE JOINT REPLACEMENT OR REATTACHMENT OF LOWER EXTREMITY W/O PENITENTIARY Low Trim 0 High Trim 999 ADMIT [...] other venous thrombosis and embolism 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 G47.33 Y Obstructive sleep apnea (adult) (pediatric) Z99.89 1 Dependence on other enabling machines and devices G40.909 Y Epilepsy, unspecified, not intractable, without status epilepticus Z79.899 1 Other mcc (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 therapy E66.01 Y Morbid (severe) obesity due to excess calories PROCEDURES DOCTOR NAME DATE [id number] Replacement of Left Knee Joint FERNANDO SILVA 05/23/2020 with Oxidized Zirconium on Polyethylene Synthetic Substitute, Cemented, Open Approach 53170H3 Transfusion of Nonautologous 05/25/2020 Red Blood Cells into Peripheral Vein, Percutaneous Approach NOTE: The code number assigned matches the documented diagnosis and / or procedure in the patient's chart. However, the narrative phrase printed from the coding software may appear abbreviated, or result in slightly different terminology. Revised Coded By: Jeane Mccormick Revised Date Saved: 05/27/2020 06:[address] [facility] Education Noteon 05-27-2020 Education Note Education [...] follow up in office with physician assistant Octavio Centeno as scheduled #9 NOMS [...] the nearest hospital's emergency services department. Normal [facility] Inpatient Patient Summaryon 05-27-2020 Inpatient Patient Summary [address] [address] Patient Discharge Instructions Name: SANDRA TAVAREZ : 1940 Patient Address: [address] [address] Primary Care Provider: Name: Robert Vail After you are discharged if you find you have any questions, please, call [phone] ext [phone] to speak to a nurse. Discharge Diagnosis: Acute pain of left knee Prescription Information: If you have been given a prescription for narcotics, seek immediate medical attention if you have any difficulty breathing or any sudden status changes such as confusion and sleepiness. If you or anyone you know is experiencing suicidal thoughts, mental health, alcohol and/or drug addiction problems; contact the [facility] 20/06 Crisis Hotline -text 4HRCP to 175759. If you received any narcotics, sedation, or [...] business decisions or sign any legal documents [facility] would like to thank you for allowing us to assist you with your healthcare needs. The following includes patient education materials and information regarding your injury/illness. SANDRA TAVAREZ has been given the following list of follow-up instructions, prescriptions, and patient education materials: Follow-up Instructions With: Address: When: Robert Vail [address] [place] [address] Business (1) With: Address: When: Tom Centeno [address] [place] [address], [address] [place] [address] Business (1) 06/06/2020 1:00 PM Medications During [...] #8 follow up in office with physician food and nutrition services assistant Octavio Centeno as scheduled #9 NOMS [...] Disease Control and Prevention July 2014 Normal [facility] POCT Glucose Levelon 020 Glucose [Mass/Vol] 125 mg/dL High 74-118 [facility] Comment on above: Performed By: #### 4 [id number] ####[facility] (DEFAULT)[address] [place] [address]2876 PTon 05-27-2020 INR Coag (PPP) [Relative time] 2.29 {INR} High 0.91-1.11 [facility] Comment on above: Performed By: #### 1 [id number], [id number], [id number] #### [facility] (DEFAULT) [address] [place] [address] 11353 PT Coag (PPP) [Time] 22.2 second(s) High 9.7-11.8 [facility] Comment on above: Performed By: #### 1 [id number], [id number], [id number] #### [facility] (DEFAULT) [address] [place] [address] 60739 Progress Note - Nurseon 04-30 Progress Note - Nurse Dressing change per Dr Moon. TORRI hose applied to both lower legs. Daughter here for transfer to the [facility]. [facility] per private vehicle with daughter. PT and OT assisted patient into car. [Electronically Signed on: 05/27/2020 18:20 EDT] Mayra Tafoya RN [Verified on: 05/27/2020 18:20 EDT] Michelet OWEN, [facility] Progress Note-Physicianon Progress Note-Physician DATE OF ORTHOPEDIC [...] The patient will be going to [facility] today. CONDITION ON DISCHARGE: Stable. Tino Moon DO JOB #: [id number] bk [Electronically Signed on: 05/28/2020 10:10 EDT] TINO MOON DO [Verified on: 05/28/2020 10:10 EDT] TINO MOON DO [Transcribed on: 05/27/2020 14:44 EDT] U [facility] Progress Note-Physician DATE OF POSTOPERATIVE ORTHOPEDIC [...] PROGNOSIS: Fair. Tino Moon DO JOB #: [id number] bk [Electronically Signed on: 05/27/2020 12:30 EDT] TINO MOON DO [Verified on: 05/27/2020 12:30 EDT] KRESGE, TINO DO [Transcribed on: 05/27/2020 10:45 EDT] GDU Normal [facility] .Auto Diff 105-26-2020 Auto Borden % 16 % High 1-12 [facility] Comment on above: Performed By: #### 1 [id number], [id number], [id number] #### [facility] (DEFAULT) [address] [place] [address] Baso Abs# 0.0 x10 Normal 0.0-0.2 [facility] Comment on above: Performed By: #### 1 [id number], 82090826, 2167749 #### [facility] (DEFAULT) [address] [place] [address] Basophils/100 WBC (Bld) 0.2 % Normal 0.2-2.0 [facility] Comment on above: Performed By: #### 1 [id number], 36943395, 8288537 #### [facility] (DEFAULT) [address] [place] [address] Eos Abs# 0.0 x10 Normal 0.0-0.4 [facility] Comment on above: Performed By: #### 1 [id number], 02387477, 9460332 #### [facility] (DEFAULT) [address] [place] [address] Eosinophils/100 WBC (Bld) 0.5 % Low 0.9-4.0 [facility] Comment on above: Performed By: #### 1 [id number], [id number], 5850078 #### [facility] (DEFAULT) [address] [place] [address] 86476 Lymphocytes (Bld) [#/Vol] 1.2 x10 Low 1.3-2.9 [facility] Comment on above: Performed By: #### 1 [id number], 16699334, 8247704 #### [facility] (DEFAULT) [address] [place] [address] 15860 Lymphocytes/100 WBC (Bld) 15 % Normal 14-48 [facility] Comment on above: Performed By: #### 1 [id number], 80596192, 5092947 #### [facility] (DEFAULT) [address] [place] [address] Borden Abs# 1.3 x10 High 0.0-0.8 [facility] Comment on above: Performed By: #### 1 [id number], [id number], 1430544 #### [facility] (DEFAULT) [address] [place] [address] Neut Abs# 5.6 x10 Normal 1.5-9.2 [facility] Comment on above: Performed By: #### 1 [id number], 34346383, 1919470 #### [facility] (DEFAULT) [address] [place] [address] Neutrophils/100 WBC (Bld) 68 % Normal 44-88 [facility] Comment on above: Performed By: #### 1 [id number], 01540476, 7228154 #### [facility] (DEFAULT) [address] [place] [address] CBC w/ Auto Diffon 0 Erythrocyte distribution width (RBC) [Ratio] 17.9 % High 11.5-15.0 [facility] Comment on above: Performed By: #### 1 [id number], 01405688, 5373575 #### [facility] (DEFAULT) [address] [place] [address] Hematocrit (Bld) [Volume fraction] 28.5 % Low 33.7-40.4 [facility] Comment on above: Performed By: #### 1 [id number], 47786847, 6429080 #### [facility] (DEFAULT) [address] [place] [address] Hemoglobin (Bld) [Mass/Vol] 8.5 g/dL Low 11.3-15.9 [facility] Comment on above: Performed By: #### 1 [id number], 04914544, 3331082 #### [facility] (DEFAULT) [address] [place] [address] Man Diff? Auto Normal [facility] Comment on above: Performed By: #### 1 [id number], 44185136, 4871579 #### [facility] (DEFAULT) [address] [place] [address] 76768 MCH (RBC) [Entitic mass] 24 pg Normal 24-34 [facility] Comment on above: Performed By: #### 1 [id number], 58638277, 6591863 #### [facility] (DEFAULT) [address] [place] [address] 35453 MCHC (RBC) [Mass/Vol] 30 g/dL Normal 26-37 [facility] Comment on above: Performed By: #### 1 [id number], 71586424, 7861895 #### [facility] (DEFAULT) [address] [place] [address] 92483 MCV (RBC) [Entitic vol] 81 fL Normal 81-100 [facility] Comment on above: Performed By: #### 1 [id number], 08904639, 3375171 #### [facility] (DEFAULT) [address] [place] [address] Platelet mean volume (Bld) [Entitic vol] 10.5 fL High 6.3-10.2 [facility] Comment on above: Performed By: #### 1 [id number], 30160510, 9964586 #### [facility] (DEFAULT) [address] [place] [address] 69300 Platelets (Bld) [#/Vol] 178 x10 Normal 138-427 [facility] Comment on above: Performed By: #### 1 [id number], [id number], 8034629 #### [facility] (DEFAULT) [address] [place] [address] 96310 RBC (Bld) [#/Vol] 3.50 x10 Low 3.70-5.30 [facility] Comment on above: Performed By: #### 1 [id number], 11890410, 1490761 #### [facility] (DEFAULT) [address] [place] [address] 92393 WBC (Bld) [#/Vol] 8.2 x10 [facility] Comment on above: Performed By: #### 1 [id number], 43416835, 5565302 #### [facility] (DEFAULT) [address] [place] [address] 86148 Extra Greenon 05-26-2020 Tube Collected Yes [facility] Comment on above: Performed By: #### 1 [id number], 90724939, 3226431 #### [facility] (DEFAULT) [address] [place] [address] 34510 History and Physicalon 05-26 History and Physical [id number] Normal [facility] Nutrition Noteon 05-26-2020 Nutrition Note Per intake records, Pt avg 50% of past 6 meals with inconsistent supplement intake avg 1X/d. Last BM on 05/23, will offer prune juice. Post op anemia noted; per ortho 1unit PRBC given. CXR obtained for fever, dyspnea which was wnl. Possible discharge later today. Will continue to monitor. Normal [facility] PTon 05-26-2020 INR Coag (PPP) [Relative time] 2.54 {INR} High 0.91-1.11 [facility] Comment on above: Performed By: #### 1 [id number], [id number], [id number] #### [facility] (DEFAULT) [address] [place] [address] 23732 PT Coag (PPP) [Time] 24.4 second(s) High 9.7-11.8 [facility] Comment on above: Performed By: #### 1 [id number], 73003539, 5156769 #### [facility] (DEFAULT) [address] [place] [address] 19250 Progress Note-Physicianon Progress Note-Physician DATE OF ORTHOPEDIC [...] is good. Tino Moon DO JOB #: [id number] [Electronically Signed on: 05/26/2020 13:12 EDT] TINO MOON DO [Verified on: 05/26/2020 13:12 EDT] TINO MOON DO [Transcribed on: 05/26/2020 10:28 EDT] GDU [facility] XR Chest 1 View Frontalon XR [...] MD 05/26/20 3:37 pm Technologist: AUGUSTO LEE [facility] .Auto Diff 1on 05-25-2020 Auto Borden % 17 % High 1-12 [facility] Comment on above: Performed By: #### 1 [id number], [id number], 0388538 #### [facility] (DEFAULT) [address] [place] [address] Baso Abs# 0.0 x10 Normal 0.0-0.2 [facility] Comment on above: Performed By: #### 1 [id number], 28756315, 5391301 #### [facility] (DEFAULT) [address] [place] [address] Basophils/100 WBC (Bld) 0.3 % Normal 0.2-2.0 [facility] Comment on above: Performed By: #### 1 [id number], 53895867, 9922350 #### [facility] (DEFAULT) [address] [place] [address] Eos Abs# 0.0 x10 Normal 0.0-0.4 [facility] Comment on above: Performed By: #### 1 [id number], 93726531, 3556955 #### [facility] (DEFAULT) [address] [place] [address] 52771 Eosinophils/100 WBC (Bld) 0.1 % Low 0.9-4.0 [facility] Comment on above: Performed By: #### 1 [id number], 49735948, 8111354 #### [facility] (DEFAULT) [address] [place] [address] Lymphocytes (Bld) [#/Vol] 0.8 x10 Low 1.3-2.9 [facility] Comment on above: Performed By: #### 1 [id number], 95226660, 7120543 #### [facility] (DEFAULT) [address] [place] [address] 87213 Lymphocytes/100 WBC (Bld) 11 % Low 14-48 [facility] Comment on above: Performed By: #### 1 [id number], 94877099, 1999606 #### [facility] (DEFAULT) [address] [place] [address] Borden Abs# 1.1 x10 High 0.0-0.8 [facility] Comment on above: Performed By: #### 1 [id number], 96625885, 8293516 #### [facility] (DEFAULT) [address] [place] [address] Neut Abs# 4.8 x10 Normal 1.5-9.2 [facility] Comment on above: Performed By: #### 1 [id number], 14228130, 4206116 #### [facility] (DEFAULT) [address] [place] [address] Neutrophils/100 WBC (Bld) 72 % Normal 44-88 [facility] Comment on above: Performed By: #### 1 [id number], 20062724, 2100893 #### [facility] (DEFAULT) [address] [place] [address] CBC w/ Auto Diffon 0 Erythrocyte distribution width (RBC) [Ratio] 17.6 % High 11.5-15.0 [facility] Comment on above: Performed By: #### 1 [id number], 90866109, 7489043 #### [facility] (DEFAULT) [address] [place] [address] Hematocrit (Bld) [Volume fraction] 27.4 % Low 33.7-40.4 [facility] Comment on above: Performed By: #### 1 [id number], 57894748, 5837791 #### [facility] (DEFAULT) [address] [place] [address] Hemoglobin (Bld) [Mass/Vol] 8.1 g/dL Low 11.3-15.9 [facility] Comment on above: Performed By: #### 1 [id number], 36615340, 4030277 #### [facility] (DEFAULT) [address] [place] [address] Man Diff? Auto Normal [facility] Comment on above: Performed By: #### 1 [id number], 65895143, 6180841 #### [facility] (DEFAULT) [address] [place] [address] MCH (RBC) [Entitic mass] 24 pg Normal 24-34 [facility] Comment on above: Performed By: #### 1 [id number], 73057621, 1814121 #### [facility] (DEFAULT) [address] [place] [address] MCHC (RBC) [Mass/Vol] 30 g/dL Normal 26-37 [facility] Comment on above: Performed By: #### 1 [id number], 80741112, 3132464 #### [facility] (DEFAULT) [address] [place] [address] MCV (RBC) [Entitic vol] 80 fL Low 81-100 [facility] Comment on above: Performed By: #### 1 [id number], 20360452, 4412697 #### [facility] (DEFAULT) [address] [place] [address] Platelet mean volume (Bld) [Entitic vol] 10.8 fL High 6.3-10.2 [facility] Comment on above: Performed By: #### 1 [id number], 71475298, 1839725 #### [facility] (DEFAULT) [address] [place] [address] 17581 Platelets (Bld) [#/Vol] 186 x10 Normal 138-427 [facility] Comment on above: Performed By: #### 1 [id number], 25562522, 2974195 #### [facility] (DEFAULT) [address] [place] [address] 70548 RBC (Bld) [#/Vol] 3.42 x10 Low 3.70-5.30 [facility] Comment on above: Performed By: #### 1 [id number], 64302028, 3057979 #### [facility] (DEFAULT) [address] [place] [address] 74631 WBC (Bld) [#/Vol] 6.8 x10 Normal 3.5-10.5 [facility] Comment on above: Performed By: #### 1 [id number], 09325217, 1667540 #### [facility] (DEFAULT) [address] [place] [address] 15895 Electrolyte Panel Standardon 05-25-2020 Anion gap [Moles/Vol] 12.0 mmol/L Normal 5.0-19.0 [facility] Comment on above: Performed By: #### 1 [id number], 84381742, 0245420 #### [facility] (DEFAULT) [address] [place] [address] 72793 Chloride [Moles/Vol] 102 mmol/L Normal 101-111 [facility] Comment on above: Performed By: #### 1 [id number], 25041765, 5913810 #### [facility] (DEFAULT) [address] [place] [address] 27724 CO2 [Moles/Vol] 28 mmol/L Normal 21-32 [facility] Comment on above: Performed By: #### 1 [id number], 46567910, 1657225 #### [facility] (DEFAULT) [address] [place] [address] 97821 Potassium [Moles/Vol] 4.0 mmol/L Normal 3.6-5.1 [facility] Comment on above: Performed By: #### 1 [id number], 97688847, 9226301 #### [facility] (DEFAULT) [address] [place] [address] Sodium [Moles/Vol] 138.0 mmol/L Normal 136.0-144 . 0 [facility] Comment on above: Performed By: #### 1 [id number], 86543949, 6138781 #### [facility] (DEFAULT) [address] [place] [address] 10734 PTon 05-25-2020 INR Coag (PPP) [Relative time] 1.89 {INR} High 0.91-1.11 [facility] Comment on above: Performed By: #### 1 [id number], 16652288, 4399141 #### [facility] (DEFAULT) [address] [place] [address] 67257 PT Coag (PPP) [Time] 18.6 second(s) High 9.7-11.8 [facility] Comment on above: Performed By: #### 1 [id number], 87774851, 1240981 #### [facility] (DEFAULT) [address] [place] [address] Progress Note - Nurseon 04-29 Progress Note [...] on: 05/25/2020 18:51 EDT] Jessica Abernathy RN Normal [facility] Progress Note - Nurse Unable to get mask to fit correctly so placed on 2 L overnight. [Electronically Signed on: 05/25/2020 01:45 EDT] Lyndsay Lou RN [Verified on: 05/25/2020 01:45 EDT] Lyndsay Lou RN [facility] Progress Note - Nurse Pt asleep with cpap mask off, woke her to put it back on. [Electronically Signed on: 05/25/2020 01:33 EDT] Lyndsay Lou RN [Verified on: 05/25/2020 01:33 EDT] Lyndsay Lou RN [facility] Progress Note - Nurse Pt up to bedside commode with 2 assist and walker, transfers very poorly and reports alot of knee pain. [Electronically Signed on: 05/25/2020 00:22 EDT] Lyndsay Lou RN [Verified on: 05/25/2020 00:22 EDT] Lyndsay Lou RN [facility] RBC.on 05-25-2020 RBC (Bld) [#/Vol] # of Units: 1 RBC Indication: Post-Op Bleed Additional Units?: No Date Needed: 05/25/2002 Red Cell Status: RBC Ready [facility] Comment on above: Performed By: #### 1 [id number], [id number], [id number] #### [facility] (DEFAULT) [address] [place] [address] .Auto Diff 05-24-2020 Auto Borden % 9 % Normal 1-12 [facility] Comment on above: Performed By: #### 1 [id number], 60725231, 2160194 #### [facility] (DEFAULT) [address] [place] [address] Baso Abs# 0.0 x10 Normal 0.0-0.2 [facility] Comment on above: Performed By: #### 1 [id number], 40949096, 9947263 #### [facility] (DEFAULT) [address] [place] [address] Basophils/100 WBC (Bld) 0.2 % Normal 0.2-2.0 [facility] Comment on above: Performed By: #### 1 [id number], 80089757, 0652312 #### [facility] (DEFAULT) [address] [place] [address] Eos Abs# 0.0 x10 Normal 0.0-0.4 [facility] Comment on above: Performed By: #### 1 [id number], 94329417, 1885920 #### [facility] (DEFAULT) [address] [place] [address] Eosinophils/100 WBC (Bld) 0.0 % Low 0.9-4.0 [facility] Comment on above: Performed By: #### 1 [id number], 53155383, 5016098 #### [facility] (DEFAULT) [address] [place] [address] Lymphocytes (Bld) [#/Vol] 0.7 x10 Low 1.3-2.9 [facility] Comment on above: Performed By: #### 1 [id number], 47307170, 5866985 #### [facility] (DEFAULT) [address] [place] [address] Lymphocytes/100 WBC (Bld) 6 % Low 14-48 [facility] Comment on above: Performed By: #### 1 [id number], 86783439, 6486058 #### [facility] (DEFAULT) [address] [place] [address] 11967 Borden Abs# 0.9 x10 High 0.0-0.8 [facility] Comment on above: Performed By: #### 1 [id number], 40976518, 9651910 #### [facility] (DEFAULT) [address] [place] [address] 40637 Neut Abs# 8.7 x10 Normal 1.5-9.2 [facility] Comment on above: Performed By: #### 1 [id number], 38660259, 2857943 #### [facility] (DEFAULT) [address] [place] [address] Neutrophils/100 WBC (Bld) 84 % Normal 44-88 [facility] Comment on above: Performed By: #### 1 [id number], 80515573, 3919928 #### [facility] (DEFAULT) [address] [place] [address] Standard 05-24-2020 eGFR Non AA >60 [facility] Comment on above: Performed By: #### 1 [id number], 89862556, 3198500 #### [facility] (DEFAULT) [address] [place] [address] eGFR AA >60 [facility] Comment on above: Result Comment: Wind Up Operator ghazal Kidney disease could be indicated at eGFRs of less than 60 ml/min/1.73m2. Kidney Failure is indicated at less than 15 ml/min/1.73m2 Performed By: #### 1 [id number], [id number], [id number] #### [facility] (DEFAULT) [address] [place] [address] 51154 Anion gap [Moles/Vol] 13.0 mmol/L Normal 5.0-19.0 [facility] Comment on above: Performed By: #### 1 [id number], [id number], [id number] #### [facility] (DEFAULT) [address] [place] [address] 48134 Calcium [Mass/Vol] 8.5 mg/dL Low 8.9-10.3 [facility] Comment on above: Performed By: #### 1 [id number], [id number], [id number] #### [facility] (DEFAULT) [address] [place] [address] 27917 Chloride [Moles/Vol] 102 mmol/L Normal 101-111 [facility] Comment on above: Performed By: #### 1 [id number], [id number], [id number] #### [facility] (DEFAULT) [address] [place] [address] 84164 CO2 [Moles/Vol] 27 mmol/L Normal 21-32 [facility] Comment on above: Performed By: #### 1 [id number], [id number], [id number] #### [facility] (DEFAULT) [address] [place] [address] 14006 Creatinine [Mass/Vol] 0.57 mg/dL Low 0.60-1.30 [facility] Comment on above: Performed By: #### 1 [id number], [id number], [id number] #### [facility] (DEFAULT) [address] [place] [address] 94143 Glucose [Mass/Vol] 134.0 mg/dL High 74.0-118.0 [facility] Comment on above: Performed By: #### 1 [id number], [id number], [id number] #### [facility] (DEFAULT) [address] [place] [address] 69207 Osmolality [Osmolality] 280 mOsm/L [facility] Comment on above: Performed By: #### 1 [id number], [id number], [id number] #### [facility] (DEFAULT) [address] [place] [address] 30453 Potassium [Moles/Vol] 4.4 mmol/L Normal 3.6-5.1 [facility] Comment on above: Performed By: #### 1 [id number], [id number], [id number] #### [facility] (DEFAULT) [address] [place] [address] 99735 Sodium [Moles/Vol] 138.0 mmol/L Normal 136.0-144 . 0 [facility] Comment on above: Performed By: #### 1 [id number], [id number], [id number] #### [facility] (DEFAULT) [address] [place] [address] 67116 Urea nitrogen [Mass/Vol] 19 mg/dL Normal 8-26 [facility] Comment on above: Performed By: #### 1 [id number], [id number], [id number] #### [facility] (DEFAULT) [address] [place] [address] 75515 Urea nitrogen/Creatinin e [Mass ratio] 33.0 mg/mg High 4.6-16.2 [facility] Comment on above: Performed By: #### 1 [id number], [id number], [id number] #### [facility] (DEFAULT) [address] [place] [address] 12136 CBC w/ Auto Diffon 0 Erythrocyte distribution width (RBC) [Ratio] 17.4 % High 11.5-15.0 [facility] Comment on above: Performed By: #### 7 726801, [id number], [id number] #### [facility] (DEFAULT) [address] [place] [address] Hematocrit (Bld) [Volume fraction] 29.3 % Low 33.7-40.4 [facility] Comment on above: Performed By: #### 7 018737, [id number], [id number] #### [facility] (DEFAULT) [address] [place] [address] 14397 Hemoglobin (Bld) [Mass/Vol] 8.7 g/dL Low 11.3-15.9 [facility] Comment on above: Performed By: #### 7 444054, 94298735, [id number] #### [facility] (DEFAULT) [address] [place] [address] 37081 Man Diff? Auto Normal [facility] Comment on above: Performed By: #### 7 637372, 02217094, [id number] #### [facility] (DEFAULT) [address] [place] [address] 20083 MCH (RBC) [Entitic mass] 24 pg Normal 24-34 [facility] Comment on above: Performed By: #### 7 485923, 11953969, [id number] #### [facility] (DEFAULT) [address] [place] [address] MCHC (RBC) [Mass/Vol] 30 g/dL Normal 26-37 [facility] Comment on above: Performed By: #### 7 128203, 86430080, [id number] #### [facility] (DEFAULT) [address] [place] [address] MCV (RBC) [Entitic vol] 81 fL Normal 81-100 [facility] Comment on above: Performed By: #### 7 691449, 76583446, [id number] #### [facility] (DEFAULT) [address] [place] [address] Platelet mean volume (Bld) [Entitic vol] 10.6 fL High 6.3-10.2 [facility] Comment on above: Performed By: #### 7 [id number], 98401355, [id number] #### [facility] (DEFAULT) [address] [place] [address] Platelets (Bld) [#/Vol] 211 x10 Normal 138-427 [facility] Comment on above: Performed By: #### 7 398031, 32940366, [id number] #### [facility] (DEFAULT) [address] [place] [address] 77717 RBC (Bld) [#/Vol] 3.63 x10 Low 3.70-5.30 [facility] Comment on above: Performed By: #### 7 492589, 87225698, [id number] #### [facility] (DEFAULT) [address] [place] [address] 07540 WBC (Bld) [#/Vol] 10.4 x10 Normal 3.5-10.5 [facility] Comment on above: Performed By: #### 7 086008, 03934928, [id number] #### [facility] (DEFAULT) [address] [place] [address] Nutrition Noteon 05-24-2020 Nutrition Note Diet ordered as 3000 kcal, DM w/ Boost Glucose Control BID. Diet adjusted to 2gr Na to reflect Pts home diet and supplement changed to Ensure Compact BID which is available in house. Pt does not have DM. Will continue to monitor. Normal [facility] PTon 05-24-2020 INR Coag (PPP) [Relative time] 1.21 {INR} High 0.91-1.11 [facility] Comment on above: Performed By: #### 1 [id number], 92578356, [id number] #### [facility] (DEFAULT) [address] [place] [address] 80278 PT Coag (PPP) [Time] 12.3 second(s) High 9.7-11.8 [facility] Comment on above: Performed By: #### 1 [id number], 13593986, [id number] #### [facility] (DEFAULT) [address] [place] [address] 54930 Pharmacy Noteon 05-24-2020 Pharmacy Note I have [...] [Verified on: 05/24/2020 16:28 EDT] Kellee Molina [facility] Progress Note - Nurseon 06-2 Progress Note - Nurse pts pain becming worse. giving 10mg oxy po every four hours, polar care in place and dr epperson notified of pain not controlled. will administer po gabepentin per order. will continue to monitor [Electronically Signed on: 05/24/2020 17:20 EDT] Jessica Abernathy RN [Verified on: 05/24/2020 17:20 EDT] Jessica Abernathy RN [facility] Progress Note - Nurse pt requires assistance getting in and out of bed. still a little stiff from surgery but does ok once up w the walker. pain so far has been controlled w 10 mg po oxy. [Electronically Signed on: 05/24/2020 10:54 EDT] Jessica Abernathy RN [Verified on: 05/24/2020 10:54 EDT] Jessica Abernathy RN [facility] ABORhon 05-23-2020 ABO and Rh group Nom (d) Hx Check: Not Found Anti-A: 4+ Anti-B: 0 Anti-D: 4+ DCon: NT A1: mf+ B: 4+ ABORh Interp: A [facility] Comment on above: Performed By: #### 7 135621, [id number], [id number] #### [facility] (DEFAULT) [address] [place] [address] 83484 ABORh Retypeon 05-23-2020 ABO and group Nom (d) Ordered by Discern. Anti-A: 4+ Anti-B: 0 Anti-D: 4+ DCon: NT A1: mf+ B: 4+ ABORh Retype: A [facility] Comment on above: Performed By: #### 7 887250, 27725577, [id number] #### [facility] (DEFAULT) [address] [place] [address] 69545 ABSC Gelon 05-23-[address] [facility] Comment on above: Performed By: #### 7 499901, [id number], [id number] #### [facility] (DEFAULT) [address] [place] [address] Anesthesia Noteon 05-23-2020 Anesthesia Note Patient: KEY [...] history): All Problems Anemia / SNOMED CT 227582146 / Confirmed At risk of pressure sore / SNOMED CT 784924483 / Confirmed Cardiomyopathy / SNOMED CT 577813547 / Confirmed DVT (deep venous thrombosis) / SNOMED CT 531858632 / Confirmed GERD (gastroesophageal reflux disease) / SNOMED CT 913433984 / Confirmed Hyperlipidemia / SNOMED CT 74640281 / Confirmed Hypertension / SNOMED CT 9742377716 / Confirmed Lumbar spondylosis / SNOMED CT 571282083 / Confirmed Mass / SNOMED CT 301843439 / Confirmed KERMIT (obstructive sleep apnea) / SNOMED CT 881333850 / Confirmed Pulmonary hypertension / SNOMED CT 515395550 / Confirmed Seizure / SNOMED CT 848968176 / Confirmed Venous insufficiency / SNOMED CT 102834770 / Confirmed Resolved: Adrenal adenoma / SNOMED CT 311790840 Resolved: Pulmonary emboli / SNOMED CT 28036601 Histories Family History: Diabetes mellitus Sister Heart attack Father Leukemia Father Stroke.... Mother Procedure history: Cholecystectomy (14318688). Colectomy (18167487). Colonoscopy (144955988). [place] filter (188418139). Femur fracture, right (19171983). Shoulder (12576139). Comments: 02/08/2020 9:57 Stacy Reynolds RN torn rotator cuff 02/08/2020 7:28 Stacy Reynolds RN arthroplasty Knee arthroplasty (851901556). Craniotomy (80961761). Laminectomy (1434267180). Comments: 02/08/2020 7:30 Stacy Reynolds RN foraminotomy, facetectomy with decompression and fusion Cataract (612738333). Social History Electronic Cigarette/Vaping Assessment Electronic Cigarette [...] 10:00) Heart Rate Peripheral 66 bpm (MAY 23:11) Resp Rate 16 br/min (MAY 23:) SBP [...] Oriented. Review / Management Laboratory Results Plan [employer]#(ASA) physical status classification: Class [...] 05/23/2020 13:34 EDT] Maico Sandhu DO Normal [facility] Blood Bank IDon 05-23-2020 Blood Bank ID BBID: [id number] [facility] Comment on above: Performed By: #### 7 874751, 67919529, [id number] #### [facility] (DEFAULT) [address] [place] [address] Extra Eulalio 05-23-2020 Tube Collected Yes [facility] Comment on above: Performed By: #### 7 477912, 19019576, [id number] #### [facility] (DEFAULT) [address] [place] [address] Tube Collected Yes [facility] Comment on above: Performed By: #### 7 375509, 90330482, [id number] #### [facility] (DEFAULT) [address] [place] [address] Hgbon 05-23-2020 Hemoglobin (Bld) [Mass/Vol] 10.1 g/dL Low 11.3-15.9 [facility] Comment on above: Performed By: #### 7 573150, 38148116, [id number] #### [facility] (DEFAULT) [address] [place] [address] 15526 MAGR Intraoperative Recordon 05-23-2020 MAGR Intraoperative Record MAGR Intra-Op Record Summary Primary Physician: FERNANDO SILVA Finalized Date/Time: 05/23/20 16:19:21 Pt. Name: SANDRA TAVAREZ/Sex: 1940 FEMALE Med Rec #: [id number] Physician: FERNANDO SILVA Financial #: [id number] Pt. Type: I Room/Bed: [facility] Admit/Disch: 05/23/20 09:44:18 - Institution: Case Times [...] Role Performed Surgeon - Primary Anesthesiologist of [employer] [facility] Record Time In 05/23/20 13:19:00 05/23/20 13:19:00 [...] RN Regina CST Role Performed Scrub Personnel Service Center Specialist Service Center Specialist Time In 05/23/20 13:19:00 05/23/20 13:19:00 05/23/20 [...] last 60 minutes Last Modified By: Shanique Borwn RN 05/23/20 14:08:00 Patient Positioning MAGR Pre-Care [...] Implanted/Explanted By: Size 6.5mm 48mm 29MM ISADORA Insurance Assistant waleska [employer] W[employer] Catalog # Lot Number [id number] Expiration Date 10/27/29 11/27/29 10/27/29 Serial Number REF [id number] 35 REF 5983 40 48 REF 5979 95 29 Device Identifier Human Readable CHASE Machine Readable CHASE MR Class Implant Usage Data Site Knee L Knee L Knee L Quantity 1 1 1 Reason for Explant Reason Not Retained Explant Disposition Oncology Research Rn Sterility External Indicator Result Internal Indicator Results [...] C D 15MM ISADORA X 30MM L Insurance Assistant [employer] Catalog # Lot Number [id number] Expiration Date 02/25/30 01/25/25 08/27/29 Serial Number REF [id number] RE 59 62 30 10 REF 5099 12 15 Device Identifier Human Readable CHASE Machine Readable CAHSE MR Class Implant Usage Data Site Knee L Knee L Knee L Quantity 1 1 1 Reason for Explant Reason Not Retained Explant Disposition Oncology Research Rn Sterility External Indicator Result Internal Indicator Results [...] By: Size 29 MM ISADORA 4 D Insurance Assistant [employer] Catalog # Lot Number [id number] Expiration Date 09/27/27 09/25/29 07/28/26 Serial Number REF 42 [id number] 000 29 REF 5980 37 02 REF 00 [id number] Device Identifier Human Readable CHASE Machine Readable CHASE MR Class Implant Usage Data Site Knee L Knee L Knee L Quantity 1 1 1 Reason for Explant Reason Not Retained Explant Disposition Oncology Research Rn Sterility External Indicator Result Internal Indicator Results [...] Date/Time Implanted/Explanted FERNANDO SILVA GEORGE By: Size Insurance Assistant WALESKA/BIOMET WALESKA/BIOMET Catalog # Lot Number [id number] Expiration Date 05/27/24 05/27/24 Serial Number REF [id number] REF [id number] Device Identifier Human Readable CHASE Machine Readable CHASE MR Class Implant Usage Data Site Knee L Knee L Quantity 1 1 Reason for Explant Reason Not Retained Explant Disposition Oncology Research Rn Sterility External Indicator Result Internal Indicator Results [...] Signed By: Shanique Brown RN 05/23/20 16:19 [facility] MAGR Intraoperative Record MAGR Intra-Op Record Summary Primary Physician: Finalized Date/Time: 05/23/20 13:14:24 Pt. Name: SANDRA TAVAREZ Lyndsay ValdezB./Sex: 1940 FEMALE Med Rec #: [id number] Physician: FERNANDO SILVA Financial #: [id number] Pt. Type: I Room/Bed: [facility] Admit/Disch: 05/23/20 09:44:18 - Institution: Case Times [...] Warga, Laura RN Role Performed Anesthesiologist of [employer] [facility] [employer] [facility] Record Time In 05/23/20 12:58:00 05/23/20 12:58:00 [...] Canal Block Primary Procedure Yes Primary Surgeon Sandhu, Maico DO Modifiers Left Surgeon Comment ADDUCTOR CANAL [...] Outcome Met (O.80) Yes Last Modified By: Satcy Pena RN 05/23/20 13:08:52 Post-Care Text: E.290 [...] By: Stacy Pena RN 05/23/20 13:14 [facility] MAGR PACU Recordon 0 MAGR PACU Record MAGR PACU Record [facility] Physician: FERNANDO SILVA Finalized Date/Time: 05/23/20 16:49:56 Pt. Name: SANDRA TAVAREZ/Sex: 1940 FEMALE Med Rec #: [id number] Physician: FERNANDO SILVA Financial #: [id number] Pt. Type: I Room/Bed: [facility]/ Admit/Disch: 05/23/20 09:44:18 - Institution: PACU Case Times MAGR Entry 1 In PACU I 05/23/20 16:18:00 Discharge from PACU 05/23/20 16:51:00 I Last Modified By: Shanique Brown RN 05/23/20 16:49:54 Finalized By: Shanique Brown RN Document Signatures Signed By: Shanique Brown RN 06/26/20 16:49 [facility] Nutrition Noteon 05-23-2020 Nutrition Note Pt admitted for sche duled Lt total knee surgery; diet order still pending. No wt hx available from the past year. No recent labs. Last labs on file from January and unremarkable. Pt follows a low Na diet at home and would rec'd continuing given hx of HTN, edema. No hx of DM. Will need to adjust diet and/or supplements once in place. Full nutrition assessment completed d/t Pt at high nutrition risk r/t age greater than 65y and surgery. Normal [facility] PTon 05-23-2020 INR Coag (PPP) [Relative time] 1.22 {INR} High 0.91-1.11 [facility] Comment on above: Performed By: #### 7 120655, [id number], [id number] #### [facility] (DEFAULT) [address] [place] [address] 23119 PT Coag (PPP) [Time] 12.4 second(s) High 9.7-11.8 [facility] Comment on above: Result Comment: Call ed Shira in Pre - Surg at 1059 Performed By: #### 7 510253, 93670507, [id number] #### [facility] (DEFAULT) [address] [place] [address] 57708 SARS-CoV-2 (COVID-19) PCRon 05-23-2020 COVID-19 PCR Not Detected Normal Not Detected [facility] Comment on above: Result Comment: perf ormed in house Results Called To Stacy in pre-surg By ARIADNA And Read Back For Confirmation On 05/23/2020 10:55:59 EDT Performed By: #### 7 436160, [id number], [id number] #### [facility] (DEFAULT) [address] [place] [address] 74547 XR Knee One or Two Views Lef [...] Cardona 05/23/20 4:50 pm Technologist: Michelle BLANTON [facility] Progress Note - Nurseon 04-28 Progress Note - Nurse Chart reviewed by Dr. Maria and no new orders received. May proceed to surgery. [Electronically Signed on: 05/07/2020 15:56 EDT] Chrissie Contreras RN [Verified on: 05/07/2020 15:56 EDT] Chrissie Contreras RN [facility] Coding Summaryon 02-27-2020 Coding Summary CODING DATE: 020 [facility] STATUS: Home PAYOR: Medicare APC DESCRIPTION [...] Fang Revised Date Saved: 02/27/2020 01:[address] [facility] Progress Note - Nurseon 01-26 Progress Note - Nurse Chart reviewed by Dr. Garcia and no new orders received. [Electronically Signed on: 02/12/2020 15:52 EDT] Chrissie Contreras RN [Verified on: 02/12/2020 15:52 EDT] Chrissie Contreras RN [facility] Provider Orderson 02-11-2020 Provider Orders [id number] [facility] C Urineon 02-10-2020 C Urine Urine Culture ordere d as a result of parameters set on specific urine dip and urine microsopic results. Mixed skin, or urogenital paddy. Clinically insignificant [facility] Comment on above: Performed By: #### 1 [id number], [id number], [id number] #### [facility] (DEFAULT) [address] [place] [address] .Auto Diff 1on 02-08-2020 Auto Borden % 12 % Normal 1-12 [facility] Comment on above: Performed By: #### 7 781665, 82432945, [id number] #### [facility] (DEFAULT) [address] [place] [address] 46676 Baso Abs# 0.0 x10 Normal 0.0-0.2 [facility] Comment on above: Performed By: #### 7 182906, 62866242, [id number] #### [facility] (DEFAULT) [address] [place] [address] 43248 Basophils/100 WBC (Bld) 0.4 % Normal 0.2-2.0 [facility] Comment on above: Performed By: #### 7 894317, 72491342, [id number] #### [facility] (DEFAULT) [address] [place] [address] Eos Abs# 0.1 x10 Normal 0.0-0.4 [facility] Comment on above: Performed By: #### 7 818707, 45398181, [id number] #### [facility] (DEFAULT) [address] [place] [address] 64913 Eosinophils/100 WBC (Bld) 1.9 % Normal 0.9-4.0 [facility] Comment on above: Performed By: #### 7 581238, 24459943, [id number] #### [facility] (DEFAULT) [address] [place] [address] 47264 Lymphocytes (Bld) [#/Vol] 1.0 x10 Low 1.3-2.9 [facility] Comment on above: Performed By: #### 7 341283, 80333305, [id number] #### [facility] (DEFAULT) [address] [place] [address] 67818 Lymphocytes/100 WBC (Bld) 22 % Normal 14-48 [facility] Comment on above: Performed By: #### 7 904472, 55905970, [id number] #### [facility] (DEFAULT) [address] [place] [address] 66822 Borden Abs# 0.6 x10 Normal 0.0-0.8 [facility] Comment on above: Performed By: #### 7 781631, 46025700, [id number] #### [facility] (DEFAULT) [address] [place] [address] 41246 Neut Abs# 3.0 x10 Normal 1.5-9.2 [facility] Comment on above: Performed By: #### 7 392613, 25359177, [id number] #### [facility] (DEFAULT) [address] [place] [address] 23761 Neutrophils/100 WBC (Bld) 64 % Normal 44-88 [facility] Comment on above: Performed By: #### 7 763866, 30824753, [id number] #### [facility] (DEFAULT) [address] [place] [address] 74348 BMP Standardon 02-08-2020 eGFR Non AA >60 [facility] Comment on above: Performed By: #### 7 194447, 71513444, [id number] #### [facility] (DEFAULT) [address] [place] [address] 09948 eGFR AA >60 [facility] Comment on above: Result Comment: Wind Up Operator ghazal Kidney disease could be indicated at eGFRs of less than 60 ml/min/1.73m2. Kidney Failure is indicated at less than 15 ml/min/1.73m2 Performed By: #### 7 174492, 44176359, [id number] #### [facility] (DEFAULT) [address] [place] [address] 21238 Anion gap [Moles/Vol] 15.0 mmol/L Normal 5.0-19.0 [facility] Comment on above: Performed By: #### 7 517062, 69017350, [id number] #### [facility] (DEFAULT) [address] [place] [address] 41964 Calcium [Mass/Vol] 9.4 mg/dL Normal 8.9-10.3 [facility] Comment on above: Performed By: #### 7 266682, 51865936, [id number] #### [facility] (DEFAULT) [address] [place] [address] 51126 Chloride [Moles/Vol] 102 mmol/L Normal 101-111 [facility] Comment on above: Performed By: #### 7 118416, 00876686, [id number] #### [facility] (DEFAULT) [address] [place] [address] 07281 CO2 [Moles/Vol] 26 mmol/L Normal 21-32 [facility] Comment on above: Performed By: #### 7 628574, 12231557, [id number] #### [facility] (DEFAULT) [address] [place] [address] 36891 Creatinine [Mass/Vol] 0.64 mg/dL Normal 0.60-1.30 [facility] Comment on above: Performed By: #### 7 133246, 13140577, [id number] #### [facility] (DEFAULT) [address] [place] [address] 27372 Glucose [Mass/Vol] 112.0 mg/dL Normal 74.0-118.0 [facility] Comment on above: Performed By: #### 7 194488, 17142715, [id number] #### [facility] (DEFAULT) [address] [place] [address] 29035 Osmolality [Osmolality] 280 mOsm/L [facility] Comment on above: Performed By: #### 7 826427, 00242913, [id number] #### [facility] (DEFAULT) [address] [place] [address] 52572 Potassium [Moles/Vol] 4.1 mmol/L Normal 3.6-5.1 [facility] Comment on above: Performed By: #### 7 076617, 89373639, [id number] #### [facility] (DEFAULT) [address] [place] [address] Sodium [Moles/Vol] 139.0 mmol/L Normal 136.0-144 . 0 [facility] Comment on above: Performed By: #### 7 701155, 28377880, [id number] #### [facility] (DEFAULT) [address] [place] [address] 09902 Urea nitrogen [Mass/Vol] 19 mg/dL Normal 8-26 [facility] Comment on above: Performed By: #### 7 103008, 81689518, [id number] #### [facility] (DEFAULT) [address] [place] [address] 27962 Urea nitrogen/Creatinin e [Mass ratio] 30.0 mg/mg High 4.6-16.2 [facility] Comment on above: Performed By: #### 7 221109, 31727446, [id number] #### [facility] (DEFAULT) [address] [place] [address] 82519 CBC w/ Auto Diffon 0 Erythrocyte distribution width (RBC) [Ratio] 14.8 % Normal 11.5-15.0 [facility] Comment on above: Performed By: #### 7 230423, 30797998, [id number] #### [facility] (DEFAULT) [address] [place] [address] Hematocrit (Bld) [Volume fraction] 37.2 % Normal 33.7-40.4 [facility] Comment on above: Performed By: #### 7 208061, 22064452, [id number] #### [facility] (DEFAULT) [address] [place] [address] 23703 Hemoglobin (Bld) [Mass/Vol] 11.6 g/dL Normal 11.3-15.9 [facility] Comment on above: Performed By: #### 7 429859, 03711183, [id number] #### [facility] (DEFAULT) [address] [place] [address] 61292 Man Diff? Auto Normal [facility] Comment on above: Performed By: #### 7 666160, 98138289, [id number] #### [facility] (DEFAULT) [address] [place] [address] 36106 MCH (RBC) [Entitic mass] 26 pg Normal 24-34 [facility] Comment on above: Performed By: #### 7 [id number], [id number] #### [facility] (DEFAULT) [address] [place] [address] 00815 MCHC (RBC) [Mass/Vol] 31 g/dL Normal 26-37 [facility] Comment on above: Performed By: #### 7 [id number], [id number] #### [facility] (DEFAULT) [address] [place] [address] 89172 MCV (RBC) [Entitic vol] 83 fL Normal 81-100 [facility] Comment on above: Performed By: #### 7 [id number], [id number], [id number] #### [facility] (DEFAULT) [address] [place] [address] 41526 Platelet mean volume (Bld) [Entitic vol] 10.8 fL High 6.3-10.2 [facility] Comment on above: Performed By: #### 7 [id number], [id number] #### [facility] (DEFAULT) [address] [place] [address] 67370 Platelets (Bld) [#/Vol] 218 x10 Normal 138-427 [facility] Comment on above: Performed By: #### 7 [id number], [id number] #### [facility] (DEFAULT) [address] [place] [address] RBC (Bld) [#/Vol] 4.47 x10 Normal 3.70-5.30 [facility] Comment on above: Performed By: #### 7 [id number], [id number], [id number] #### [facility] (DEFAULT) [address] [place] [address] WBC (Bld) [#/Vol] 4.8 x10 Normal 3.5-10.5 [facility] Comment on above: Performed By: #### 7 [id number], [id number] #### [facility] (DEFAULT) [address] [place] [address] UA [id number] 02-08-2020 RBC (U) [#/Vol] None Seen [facility] Comment on above: Order Comment: Urina lysis Microscopic order added on by [employer] Rules system. Performed By: #### 1 [id number], [id number] #### [facility] (DEFAULT) [address] [place] [address] [address] Bacteria 2+ [facility] Comment on above: Order Comment: Urina lysis Microscopic order added on by [employer] Rules system. Performed By: #### 1 [id number] #### [facility] (DEFAULT) [address] [place] [address] UA Squam Epi Moderate Normal [facility] Comment on above: Order Comment: Urina lysis Microscopic order added on by [employer] Rules system. Performed By: #### 1 [id number], [id number], [id number] #### [facility] (DEFAULT) [address] [place] [address] UA WBC 3-5 Normal [facility] Comment on above: Order Comment: Urina lysis Microscopic order added on by [employer] Rules system. Performed By: #### 1 [id number], [id number] #### [facility] (DEFAULT) [address] [place] [address] 89476 UA w Culture if Ind Standard on 02-08-[address] [facility] Comment on above: Performed By: #### 1 [id number], [id number] #### [facility] (DEFAULT) [address] [place] [address] 80506 Color (U) Yellow Normal [facility] Comment on above: Performed By: #### 1 [id number], [id number] #### [facility] (DEFAULT) [address] [place] [address] Culture? Yes Normal [facility] Comment on above: Performed By: #### 1 [id number], [id number], [id number] #### [facility] (DEFAULT) [address] [place] [address] 45925 Glucose (U) [Mass/Vol] Negative Normal [facility] Comment on above: Performed By: #### 1 [id number], [id number] #### [facility] (DEFAULT) [address] [place] [address] 26232 Ketones Ql (U) Negative Normal [facility] Comment on above: Performed By: #### 1 [id number], [id number], [id number] #### [facility] (DEFAULT) [address] [place] [address] 79281 Micro? Indicated [facility] Comment on above: Performed By: #### 1 [id number], [id number], [id number] #### [facility] (DEFAULT) [address] [place] [address] 53491 UA Bilirubin Negative Normal [facility] Comment on above: Performed By: #### 1 [id number], [id number], [id number] #### [facility] (DEFAULT) [address] [place] [address] 55118 UA Blood Negative Normal NEGATIVE [facility] Comment on above: Performed By: #### 1 [id number], [id number], [id number] #### [facility] (DEFAULT) [address] [place] [address] 91620 UA Clarity SL CLOUDY Abnormal CLEAR [facility] Comment on above: Performed By: #### 1 [id number], [id number] #### [facility] (DEFAULT) [address] [place] [address] 66269 UA Leuk Est TRACE Abnormal NEGATIVE [facility] Comment on above: Performed By: #### 1 [id number], [id number], [id number] #### [facility] (DEFAULT) [address] [place] [address] 51811 UA Nitrite Negative Normal NEGATIVE [facility] Comment on above: Performed By: #### 1 [id number], [id number], [id number] #### [facility] (DEFAULT) [address] [place] [address] 89243 UA pH 6.0 Normal 5-8 [facility] Comment on above: Performed By: #### 1 [id number], [id number], [id number] #### [facility] (DEFAULT) [address] [place] [address] 71368 UA Protein Negative Normal NEGATIVE [facility] Comment on above: Performed By: #### 1 [id number], [id number] #### [facility] (DEFAULT) [address] [place] [address] 00293 UA Spec Grav 1.025 Normal 1.001-1.[address] [place] [address] Comment on above: Performed By: #### 1 [id number], [id number], [id number] #### [facility] (DEFAULT) [address] [place] [address] 17796 UA Urobilinogen 0.2 mg/dL Normal 0.2-1.0 [facility] Comment on above: Performed By: #### 1 [id number], [id number] #### [facility] (DEFAULT) [address] [place] [address] 50341 Urine Source Clean Catch Normal [facility] Comment on above: Performed By: #### 1 [id number], [id number], [id number] #### [facility] (DEFAULT) [address] [place] [address] 33227 XR Knee Complete Left Standi ngon 02-08-2020 [...] Mcpherson 02/08/20 3:02 pm Technologist: Rony ANTONIO [facility] Vital Signs Date Time Vital Sign Value Performing Clinician Facility 08-12-2025 10:45-0400 Body height 152.4 cm Robert Ball DO Work Phone: [facility] 08-12-2025 10:45-0400 Body mass index (BMI) [Ratio] 54.6 kg/m2 Robert Ball DO Work Phone: [facility] 08-12-2025 10:45-0400 Body weight 126.77 kg Robert Ball DO Work Phone: [facility] 08-12-2025 10:45-0400 Diastolic blood pressure 85 mm[Hg] Robert Ball DO Work Phone: [facility] 08-12-2025 10:45-0400 Heart rate 81 /min Robert Ball DO Work Phone: [facility] 08-12-2025 10:45-0400 Respiratory rate 12 /min Robert Ball DO Work Phone: [facility] 08-12-2025 10:45-0400 Systolic blood pressure 135 mm[Hg] Robert Ball DO Work Phone: [facility] 06-18-2025 14:12-0400 Body height 152.4 cm Robert Ball DO Work Phone: [facility] 06-18-2025 14:12-0400 Body mass index (BMI) [Ratio] 53.8 kg/m2 Robert Ball DO Work Phone: [facility] 06-18-2025 14:12-0400 Body weight 125.19 kg Robert Ball DO Work Phone: [facility] 06-18-2025 14:12-0400 Diastolic blood pressure 73 mm[Hg] Robert Ball DO Work Phone: [facility] 06-18-2025 14:12-0400 Heart rate 76 /min Robert Ball DO Work Phone: [facility] 06-18-2025 14:12-0400 Respiratory rate 12 /min Robert Ball DO Work Phone: [facility] 06-18-2025 14:12-0400 Systolic blood pressure 160 mm[Hg] Robert Ball DO Work Phone: [facility] 06-14-2025 11:29-0400 Body height 152.4 cm Robert Ball DO Work Phone: [facility] 06-14-2025 11:29-0400 Body mass index (BMI) [Ratio] 53.8 kg/m2 Robert Ball DO Work Phone: [facility] 06-14-2025 11:29-0400 Body temperature 97.4 [degF] Robert Ball DO Work Phone: [facility] 06-14-2025 11:29-0400 Body weight 125.19 kg Robert Ball DO Work Phone: [facility] 06-14-2025 11:29-0400 Diastolic blood pressure 84 mm[Hg] Robert Ball DO Work Phone: [facility] 06-14-2025 11:29-0400 Heart rate 82 /min Robert Ball DO Work Phone: [facility] 06-14-2025 11:29-0400 SaO2% (BldA) [Mass fraction] 96 % Robert Ball DO Work Phone: [facility] 06-14-2025 11:29-0400 Systolic blood pressure 136 mm[Hg] Robert Ball DO Work Phone: [facility] 05-16-2025 12:03-0400 Body height 152.4 cm Robert Ball DO Work Phone: [facility] 05-16-2025 12:03-0400 Body mass index (BMI) [Ratio] 53.3 kg/m2 Robert Ball DO Work Phone: [facility] 05-16-2025 12:03-0400 Body weight 123.83 kg Robert Ball DO Work Phone: [facility] 05-16-2025 12:03-0400 Diastolic blood pressure 73 mm[Hg] Robert Ball DO Work Phone: [facility] 05-16-2025 12:03-0400 Heart rate 82 /min Robert Ball DO Work Phone: [facility] 05-16-2025 12:03-0400 Respiratory rate 12 /min Robert Ball DO Work Phone: [facility] 05-16-2025 12:03-0400 Systolic blood pressure 192 mm[Hg] Robert Ball DO Work Phone: [facility] 05-06-2025 13:26-0400 Body height 152.4 cm [facility] 05-06-2025 13:26-0400 Body mass index (BMI) [Ratio] 53.3 kg/m2 [facility] 05-06-2025 13:26-0400 Body weight 123.83 kg [facility] 05-06-2025 13:26-0400 Diastolic blood pressure 62 mm[Hg] [facility] 05-06-2025 13:26-0400 Heart rate 77 /min [facility] 05-06-2025 13:26-0400 Respiratory rate 12 /min [facility] 05-06-2025 13:26-0400 Systolic blood pressure 198 mm[Hg] [facility] 05-06-2025 12:07-0400 Diastolic blood pressure 82 mm[Hg] [facility] 05-06-2025 12:07-0400 Heart rate 75 /min [facility] 05-06-2025 12:07-0400 SaO2% (BldA) [Mass fraction] 96 % [facility] 05-06-2025 12:07-0400 Systolic blood pressure 142 mm[Hg] [facility] 04-15-2025 13:57-0400 Body height 152.4 cm [facility] 04-15-2025 13:57-0400 Body mass index (BMI) [Ratio] 53.4 kg/m2 [facility] 04-15-2025 13:57-0400 Body weight 124 kg [facility] 04-15-2025 13:57-0400 Diastolic blood pressure 84 mm[Hg] [facility] 04-15-2025 13:57-0400 Heart rate 77 /min [facility] 04-15-2025 13:57-0400 Respiratory rate 18 /min [facility] 04-15-2025 13:57-0400 SaO2% (BldA) [Mass fraction] 98 % [facility] 04-15-2025 13:57-0400 Systolic blood pressure 150 mm[Hg] [facility] 04-09-2025 10:22-0400 Body height 152.4 cm [facility] 04-09-2025 10:22-0400 Body mass index (BMI) [Ratio] 53.6 kg/m2 [facility] 04-09-2025 10:22-0400 Body weight 124.45 kg [facility] 04-09-2025 10:22-0400 Diastolic blood pressure 86 mm[Hg] [facility] 04-09-2025 10:22-0400 Heart rate 92 /min [facility] 04-09-2025 10:22-0400 Respiratory rate 12 /min [facility] 04-09-2025 10:22-0400 SaO2% (BldA) [Mass fraction] 98 % [facility] 04-09-2025 10:22-0400 Systolic blood pressure 159 mm[Hg] [facility] 03-20-2025 13:29-0400 Body height 152.4 cm Robert Ball DO Work Phone: [facility] 03-20-2025 13:29-0400 Body mass index (BMI) [Ratio] 53.6 kg/m2 Robert Ball DO Work Phone: [facility] 03-20-2025 13:29-0400 Body weight 124.73 kg Robert Ball DO Work Phone: [facility] 03-20-2025 13:29-0400 Diastolic blood pressure 80 mm[Hg] Robert Ball DO Work Phone: [facility] 03-20-2025 13:29-0400 Heart rate 88 /min Robert Ball DO Work Phone: [facility] 03-20-2025 13:29-0400 SaO2% (BldA) [Mass fraction] 97 % Robert Ball DO Work Phone: [facility] 03-20-2025 13:29-0400 Systolic blood pressure 116 mm[Hg] Robert Ball DO Work Phone: [facility] 02-26-2025 10:38-0400 Diastolic blood pressure 90 mm[Hg] Robert Ball DO Work Phone: [facility] 02-26-2025 10:38-0400 Heart rate 73 /min Robert Ball DO Work Phone: [facility] 02-26-2025 10:38-0400 SaO2% (BldA) [Mass fraction] 99 % Robert Ball DO Work Phone: [facility] 02-26-2025 10:38-0400 Systolic blood pressure 140 mm[Hg] Robert Ball DO Work Phone: [facility] 01-16-2025 13:05-0500 Diastolic blood pressure 98 mm[Hg] Robert Ball DO Work Phone: [facility] 01-16-2025 13:05-0500 Heart rate 76 /min Robert Ball DO Work Phone: [facility] 01-16-2025 13:05-0500 SaO2% (BldA) [Mass fraction] 98 % Robert Ball DO Work Phone: [facility] 01-16-2025 13:05-0500 Systolic blood pressure 150 mm[Hg] Robert Ball DO Work Phone: [facility] 01-04-2025 11:57-0500 Body height 162.56 cm Robert Ball DO Work Phone: [facility] 01-04-2025 11:57-0500 Body mass index (BMI) [Ratio] 48.1 kg/m2 Robert Ball DO Work Phone: [facility] 01-04-2025 11:57-0500 Body weight 127.14 kg Robert Ball DO Work Phone: [facility] 01-04-2025 11:57-0500 Diastolic blood pressure 77 mm[Hg] Robert Ball DO Work Phone: [facility] 01-04-2025 11:57-0500 Heart rate 96 /min Robert Ball DO Work Phone: [facility] 01-04-2025 11:57-0500 Respiratory rate 12 /min Robert Ball DO Work Phone: [facility] 01-04-2025 11:57-0500 Systolic blood pressure 169 mm[Hg] Robert Ball DO Work Phone: [facility] 12-26-2024 12:01-0500 Diastolic blood pressure 75 mm[Hg] Robert Ball DO Work Phone: [facility] 12-26-2024 12:01-0500 Heart rate 70 /min Robert Ball DO Work Phone: [facility] 12-26-2024 12:01-0500 Respiratory rate 16 /min Robert Ball DO Work Phone: [facility] 12-26-2024 12:01-0500 SaO2% (BldA) [Mass fraction] 96 % Robert Ball DO Work Phone: [facility] 12-26-2024 12:01-0500 Systolic blood pressure 133 mm[Hg] Robert Ball DO Work Phone: [facility] 12-26-2024 11:26-0500 Inhaled oxygen flow rate 4 L/min Robert Ball DO Work Phone: [facility] 12-26-2024 09:15-0500 Body height 152.4 cm Robert Ball DO Work Phone: [facility] 12-26-2024 09:15-0500 Body weight 122.46 kg Robert Ball DO Work Phone: [facility] 12-12-2024 13:50-0500 Body height 162.56 cm [facility] 12-12-2024 13:50-0500 Body mass index (BMI) [Ratio] 48.1 kg/m2 [facility] 12-12-2024 13:50-0500 Body weight 127.26 kg [facility] 12-12-2024 13:50-0500 Diastolic blood pressure 72 mm[Hg] [facility] 12-12-2024 13:50-0500 Heart rate 89 /min [facility] 12-12-2024 13:50-0500 Respiratory rate 16 /min [facility] 12-12-2024 13:50-0500 Systolic blood pressure 134 mm[Hg] [facility] 12-10-2024 13:38-0500 Body height 162.56 cm [facility] 12-10-2024 13:38-0500 Body mass index (BMI) [Ratio] 48.2 kg/m2 [facility] 12-10-2024 13:38-0500 Body weight 127.45 kg [facility] 12-10-2024 13:38-0500 Diastolic blood pressure 70 mm[Hg] [facility] 12-10-2024 13:38-0500 Heart rate 88 /min [facility] 12-10-2024 13:38-0500 SaO2% (BldA) [Mass fraction] 98 % [facility] 12-10-2024 13:38-0500 Systolic blood pressure 136 mm[Hg] [facility] 12-07-2024 11:02-0500 Body height 162.56 cm [facility] 12-07-2024 11:02-0500 Body mass index (BMI) [Ratio] 48.3 kg/m2 [facility] 12-07-2024 11:02-0500 Body weight 127.68 kg [facility] 12-07-2024 11:02-0500 Diastolic blood pressure 87 mm[Hg] [facility] 12-07-2024 11:02-0500 Heart rate 96 /min [facility] 12-07-2024 11:02-0500 Respiratory rate 12 /min [facility] 12-07-2024 11:02-0500 Systolic blood pressure 177 mm[Hg] [facility] 09-04-2024 09:46-0400 Diastolic blood pressure 80 mm[Hg] DO Robert Ball Work Phone: [facility] 09-04-2024 09:46-0400 Heart rate 73 /min DO Robert Ball Work Phone: [facility] 09-04-2024 09:46-0400 SaO2% (BldA) [Mass fraction] 97 % DO Robert Ball Work Phone: [facility] 09-04-2024 09:46-0400 Systolic blood pressure 130 mm[Hg] DO Robert Ball Work Phone: [facility] 08-24-2024 11:03-0400 Heart rate 97 /min DO Robert Ball Work Phone: [facility] 08-24-2024 11:03-0400 SaO2% (BldA) [Mass fraction] 96 % DO Robert Ball Work Phone: [facility] 08-10-2024 14:18-0400 Diastolic blood pressure 66 mm[Hg] DO Robert Ball Work Phone: [facility] 08-10-2024 14:18-0400 Heart rate 73 /min DO Robert Ball Work Phone: [facility] 08-10-2024 14:18-0400 Respiratory rate 16 /min DO Robert Ball Work Phone: [facility] 08-10-2024 14:18-0400 SaO2% (BldA) [Mass fraction] 98 % DO Robert Ball Work Phone: [facility] 08-10-2024 14:18-0400 Systolic blood pressure 124 mm[Hg] DO Robert Ball Work Phone: [facility] 08-10-2024 12:13-0400 Body height 152.4 cm DO Robert Ball Work Phone: [facility] 08-10-2024 12:13-0400 Body weight 120.2 kg DO Robert Ball Work Phone: [facility] 08-06-2024 10:49-0400 Body height 152.4 cm DO Robert Ball Work Phone: [facility] 08-06-2024 10:49-0400 Body mass index (BMI) [Ratio] 54.5 kg/m2 DO Robert Ball Work Phone: [facility] 08-06-2024 10:49-0400 Body weight 126.6 kg DO Robert Ball Work Phone: [facility] 08-06-2024 10:49-0400 Diastolic blood pressure 78 mm[Hg] DO Robert Ball Work Phone: [facility] 08-06-2024 10:49-0400 Heart rate 65 /min DO Robert Ball Work Phone: [facility] 08-06-2024 10:49-0400 Respiratory rate 12 /min DO Robert Ball Work Phone: [facility] 08-06-2024 10:49-0400 Systolic blood pressure 159 mm[Hg] DO Robert Ball Work Phone: [facility] 07-31-2024 11:13-0400 Diastolic blood pressure 80 mm[Hg] DO Robert Ball Work Phone: [facility] 07-31-2024 11:13-0400 Heart rate 71 /min DO Robert Ball Work Phone: [facility] 07-31-2024 11:13-0400 SaO2% (BldA) [Mass fraction] 97 % DO Robert Ball Work Phone: [facility] 07-31-2024 11:13-0400 Systolic blood pressure 132 mm[Hg] DO Robert Ball Work Phone: [facility] 05-28-2024 14:21-0400 Body height 152.4 cm DO Robert Ball Work Phone: [facility] 05-28-2024 14:21-0400 Body mass index (BMI) [Ratio] 52.1 kg/m2 DO Robert Ball Work Phone: [facility] 05-28-2024 14:21-0400 Body weight 121.1 kg DO Robert Ball Work Phone: [facility] 05-28-2024 14:21-0400 Diastolic blood pressure 70 mm[Hg] DO Robert Ball Work Phone: [facility] 05-28-2024 14:21-0400 Heart rate 68 /min DO Robert Ball Work Phone: [facility] 05-28-2024 14:21-0400 Respiratory rate 18 /min DO Robert Ball Work Phone: [facility] 05-28-2024 14:21-0400 SaO2% (BldA) [Mass fraction] 98 % DO Robert Ball Work Phone: [facility] 05-28-2024 14:21-0400 Systolic blood pressure 132 mm[Hg] DO Robert Ball Work Phone: [facility] 04-30-2024 15:05-0400 Diastolic blood pressure 70 mm[Hg] [facility] 04-30-2024 15:05-0400 Heart rate 98 /min [facility] 04-30-2024 15:05-0400 SaO2% (BldA) [Mass fraction] 97 % [facility] 04-30-2024 15:05-0400 Systolic blood pressure 126 mm[Hg] [facility] 03-29-2024 10:44-0400 Body height 152.4 cm [facility] 03-29-2024 10:44-0400 Body mass index (BMI) [Ratio] 53.6 kg/m2 [facility] 03-29-2024 10:44-0400 Body weight 124.45 kg [facility] 03-29-2024 10:44-0400 Diastolic blood pressure 71 mm[Hg] [facility] 03-29-2024 10:44-0400 Heart rate 75 /min [facility] 03-29-2024 10:44-0400 Respiratory rate 16 /min [facility] 03-29-2024 10:44-0400 Systolic blood pressure 116 mm[Hg] [facility] 02-15-2024 14:20-0400 Body height 152.4 cm DO Robert Ball Work Phone: [facility] 02-15-2024 14:20-0400 Body mass index (BMI) [Ratio] 53.1 kg/m2 DO Robert Ball Work Phone: [facility] 02-15-2024 14:20-0400 Body weight 123.37 kg DO Robert Ball Work Phone: [facility] 02-15-2024 14:20-0400 Diastolic blood pressure 65 mm[Hg] DO Robert Ball Work Phone: [facility] 02-15-2024 14:20-0400 Heart rate 77 /min DO Robert Ball Work Phone: [facility] 02-15-2024 14:20-0400 Respiratory rate 16 /min DO Robert Ball Work Phone: [facility] 02-15-2024 14:20-0400 Systolic blood pressure 170 mm[Hg] DO Robert Ball Work Phone: [facility] 09-21-2023 14:00-0400 Body height 152.4 cm Robert Ball Other [facility] Other 09-21-2023 14:00-0400 Body mass index (BMI) [Ratio] 52.69 kg/m2 Robert Ball Other [facility] Other 09-21-2023 14:00-0400 Body weight 122.38 kg Robert Ball Other [facility] Other 09-21-2023 14:00-0400 Diastolic blood pressure 70 mm[Hg] Robert Ball Other [facility] Other 09-21-2023 14:00-0400 Respiratory rate 20 /min Robert Ball Other [facility] Other 09-21-2023 14:00-0400 Systolic blood pressure 150 mm[Hg] Robert Ball Other [facility] Other 08-15-2023 15:00-0400 Body height 152.4 cm Robert Ball Other [facility] Other 08-15-2023 15:00-0400 Body mass index (BMI) [Ratio] 54.33 kg/m2 Robert Ball Other [facility] Other 08-15-2023 15:00-0400 Body weight 126.19 kg Robert Ball Other [facility] Other 08-15-2023 15:00-0400 Diastolic blood pressure 79 mm[Hg] Robert Ball Other [facility] Other 08-15-2023 15:00-0400 Respiratory rate 16 /min Robert Ball Other [facility] Other 08-15-2023 15:00-0400 Systolic blood pressure 147 mm[Hg] Robert Ball Other [facility] Other 07-11-2023 11:00-0400 Body height 152.4 cm Robert Ball Other [facility] Other 07-11-2023 11:00-0400 Body mass index (BMI) [Ratio] 55.26 kg/m2 Robert Ball Other [facility] Other 07-11-2023 11:00-0400 Body weight 128.37 kg Robert Ball Other [facility] Other 07-11-2023 11:00-0400 Diastolic blood pressure 90 mm[Hg] Robert Ball Other [facility] Other 07-11-2023 11:00-0400 Respiratory rate 16 /min Robert Ball Other [facility] Other 07-11-2023 11:00-0400 Systolic blood pressure 140 mm[Hg] Robert Ball Other [facility] Other 05-25-2023 14:00-0400 Body height 152.4 cm Robert Ball Other [facility] Other 05-25-2023 14:00-0400 Body mass index (BMI) [Ratio] 54.25 kg/m2 Robert Ball Other [facility] Other 05-25-2023 14:00-0400 Body weight 126.01 kg Robert Ball Other [facility] Other 05-25-2023 14:00-0400 Diastolic blood pressure 76 mm[Hg] Robert Ball Other [facility] Other 05-25-2023 14:00-0400 Respiratory rate 16 /min Robert Ball Other [facility] Other 05-25-2023 14:00-0400 Systolic blood pressure 151 mm[Hg] Robert Ball Other [facility] Other 04-08-2023 12:15-0400 Body height 152.4 cm Robert Ball Other [facility] Other 04-08-2023 12:15-0400 Body mass index (BMI) [Ratio] 53.84 kg/m2 Robert Ball Other [facility] Other 04-08-2023 12:15-0400 Body weight 125.06 kg Robert Ball Other [facility] Other 04-08-2023 12:15-0400 Diastolic blood pressure 80 mm[Hg] Robert Ball Other [facility] Other 04-08-2023 12:15-0400 Respiratory rate 12 /min Robert Ball Other [facility] Other 04-08-2023 12:15-0400 Systolic blood pressure 124 mm[Hg] Robert Ball Other [facility] Other 03-23-2023 14:30-0400 Body height 152.4 cm Robert Ball Other [facility] Other 03-23-2023 14:30-0400 Body mass index (BMI) [Ratio] 53.82 kg/m2 Robert Ball Other [facility] Other 04-26-2023 14:30-0400 Body weight 125.01 kg Robert Ball Other [facility] Other 03-23-2023 14:30-0400 Diastolic blood pressure 84 mm[Hg] Robert Ball Other [facility] Other 03-23-2023 14:30-0400 Respiratory rate 12 /min Robert Ball Other [facility] Other 03-23-2023 14:30-0400 Systolic blood pressure 122 mm[Hg] Robert Ball Other [facility] Other 03-02-2023 12:00-0400 Body height 152.4 cm Robert Ball Other [facility] Other 03-02-2023 12:00-0400 Body mass index (BMI) [Ratio] 54.01 kg/m2 Robert Ball Other [employer] Other 03-02-2023 12:00-0400 Body weight 125.47 kg Robert Ball Other [employer] Other 03-02-2023 12:00-0400 Diastolic blood pressure 72 mm[Hg] Robert Ball Other [employer] Other 03-02-2023 12:00-0400 Respiratory rate 12 /min Robert Ball Other [employer] Other 03-02-2023 12:00-0400 Systolic blood pressure 122 mm[Hg] Robert Ball Other [employer] Other 02-14-2023 14:15-0400 Body height 152.4 cm Michael Dunaway Other [employer] Other 02-14-2023 14:15-0400 SaO2% (BldA) [Mass fraction] 98 % Michael Dunaway Other [employer] Other 01-27-2023 15:00-0500 Body height 152.4 cm Michael Dunaway Other [employer] Other 01-27-2023 15:00-0500 Diastolic blood pressure 84 mm[Hg] Michael Emelyn Other [employer] Other 01-27-2023 15:00-0500 SaO2% (BldA) [Mass fraction] 98 % Michael Dunaway Other [employer] Other 01-27-2023 15:00-0500 Systolic blood pressure 126 mm[Hg] Michael Emelyn Other [employer] Other 12-31-2022 12:30-0500 Body height 152.4 cm Michael Dunaway Other [employer] Other 12-31-2022 12:30-0500 SaO2% (BldA) [Mass fraction] 96 % Michael Dunaway Other [employer] Other 12-27-2022 11:15-0500 Body height 152.4 cm Ivon Batista Other [employer] Other 12-27-2022 11:15-0500 Body mass index (BMI) [Ratio] 53.08 kg/m2 Ivon Batista Other [employer] Other 12-27-2022 11:15-0500 Body temperature 96 [degF] Ivon Batista Other [employer] Other 12-27-2022 11:15-0500 Body weight 123.29 kg Ivon Batista Other [employer] Other 12-27-2022 11:15-0500 Diastolic blood pressure 92 mm[Hg] Ivon Batista Other [employer] Other 12-27-2022 11:15-0500 SaO2% (BldA) [Mass fraction] 96 % Ivon Batista Other [employer] Other 12-27-2022 11:15-0500 Systolic blood pressure 156 mm[Hg] Ivon Batista Other [employer] Other 12-02-2022 11:45-0500 Body height 152.4 cm Ursula Velarde Other [employer] Other 12-02-2022 11:45-0500 Diastolic blood pressure 80 mm[Hg] Ursula Velarde Other [employer] Other 12-02-2022 11:45-0500 SaO2% (BldA) [Mass fraction] 97 % Ursula Velarde Other [employer] Other 12-02-2022 11:45-0500 Systolic blood pressure 126 mm[Hg] Ursula Velarde Other [employer] Other 11-02-2022 12:15-0500 Body height 152.4 cm Michael Dunaway Other [employer] Other 11-02-2022 12:15-0500 Diastolic blood pressure 80 mm[Hg] Michael Dunaway Other [employer] Other 11-02-2022 12:15-0500 SaO2% (BldA) [Mass fraction] 98 % Michael Dunaway Other [employer] Other 11-02-2022 12:15-0500 Systolic blood pressure 140 mm[Hg] Michael Anthonyky Other [employer] Other 09-11-2022 11:55-0400 Body height 152.4 cm Kaitlynn Foy Other [employer] Other 09-11-2022 11:55-0400 Body mass index (BMI) [Ratio] 50.77 kg/m2 Kaitlynn Foy Other [employer] Other 09-11-2022 11:55-0400 Body temperature 96.8 [degF] Kaitlynn Foy Other [employer] Other 09-11-2022 11:55-0400 Body weight 117.94 kg Kaitlynn Foy Other [employer] Other 09-11-2022 11:55-0400 Respiratory rate 18 /min Kaitlynn Foy Other [employer] Other 09-11-2022 11:55-0400 SaO2% (BldA) [Mass fraction] 97 % Kaitlynn Foy Other [employer] Other 09-10-2022 12:30-0400 Body height 152.4 cm Michael Anthonyky Other [employer] Other 09-10-2022 12:30-0400 Diastolic blood pressure 80 mm[Hg] Michael Emelyn Other [employer] Other 09-10-2022 12:30-0400 SaO2% (BldA) [Mass fraction] 99 % Michael Emelyn Other [employer] Other 09-10-2022 12:30-0400 Systolic blood pressure 120 mm[Hg] Michael Emelyn Other [employer] Other 07-29-2022 17:45-0400 Body height 152.4 cm Michael Dunaway Other [employer] Other 07-29-2022 17:45-0400 Diastolic blood pressure 76 mm[Hg] Michael Emelyn Other [employer] Other 07-29-2022 17:45-0400 SaO2% (BldA) [Mass fraction] 99 % Michael Dunaway Other [employer] Other 07-29-2022 17:45-0400 Systolic blood pressure 124 mm[Hg] Michael Dunaway Other [employer] Other 07-02-2022 13:00-0400 Body height 152.4 cm Michael Dunaway Other [employer] Other 07-02-2022 13:00-0400 Body mass index (BMI) [Ratio] 53.97 kg/m2 Michael Dunaway Other [employer] Other 07-02-2022 13:00-0400 Body weight 125.38 kg Michael Dunaway Other [employer] Other 07-02-2022 13:00-0400 Diastolic blood pressure 88 mm[Hg] Michael Emelyn Other [employer] Other 07-02-2022 13:00-0400 SaO2% (BldA) [Mass fraction] 97 % Michael Dunaway Other [employer] Other 07-02-2022 13:00-0400 Systolic blood pressure 142 mm[Hg] Michael Dunaway Other [employer] Other 06-23-2022 12:52-0400 Diastolic blood pressure 64 mm[Hg] DO Robert Ball Work Phone: [facility] 06-23-2022 12:52-0400 Heart rate 73 /min DO Robert Ball Work Phone: [facility] 06-23-2022 12:52-0400 Respiratory rate 20 /min DO Robert Ball Work Phone: [facility] 06-23-2022 12:52-0400 SaO2% (BldA) [Mass fraction] 97 % DO Robert Ball Work Phone: [facility] 06-23-2022 12:52-0400 Systolic blood pressure 132 mm[Hg] DO Robert Ball Work Phone: [facility] 06-23-2022 12:16-0400 Inhaled oxygen flow rate 3 L/min DO Robert Ball Work Phone: [facility] 06-23-2022 10:24-0400 Body height 152.4 cm DO Robert Ball Work Phone: [facility] 06-23-2022 10:24-0400 Body weight 123.37 kg DO Robert Ball Work Phone: [facility] 06-18-2022 12:15-0400 Body height 152.4 cm Michael Dunaway Other [employer] Other 06-18-2022 12:15-0400 Body mass index (BMI) [Ratio] 53.19 kg/m2 Michael Emelyn Other [employer] Other 06-18-2022 12:15-0400 Body weight 123.56 kg Michael Dunaway Other [employer] Other 06-18-2022 12:15-0400 Diastolic blood pressure 78 mm[Hg] Michael Dunaway Other [employer] Other 06-18-2022 12:15-0400 SaO2% (BldA) [Mass fraction] 96 % Michael Dunaway Other [employer] Other 06-18-2022 12:15-0400 Systolic blood pressure 146 mm[Hg] Michael Dunaway Other [employer] Other 05-05-2022 06:31-0400 Body height 152.4 cm DO Robert Ball Work Phone: [facility] 05-05-2022 06:31-0400 Body mass index (BMI) [Ratio] 51.7 kg/m2 DO Robert Ball Work Phone: [facility] 05-05-2022 06:31-0400 Body weight 120.2 kg DO Robert Ball Work Phone: [facility] 03-11-2022 17:15-0400 Body height 152.4 cm Michael Dunaway Other [employer] Other 03-11-2022 17:15-0400 Diastolic blood pressure 70 mm[Hg] Michael Dunaway Other [employer] Other 03-11-2022 17:15-0400 SaO2% (BldA) [Mass fraction] 98 % Michael Anthonyky Other [employer] Other 03-11-2022 17:15-0400 Systolic blood pressure 144 mm[Hg] Michael Dunaway Other [employer] Other 03-04-2022 09:59-0400 Blood Pressure Location Taye NILL [facility] [place] 03-04-2022 09:59-0400 Diastolic blood pressure 82 mm[Hg] Taye NILL [facility] [place] 03-04-2022 09:59-0400 Heart rate 72 /min Taye NILL [facility] [place] 03-04-2022 09:59-0400 Respiratory rate 20 /min Taye NILL [facility] [place] 03-04-2022 09:59-0400 Systolic blood pressure 160 mm[Hg] Taye NILL [facility] [place] 02-18-2022 17:00-0400 Body height 152.4 cm Michael Dunaway Other [employer] Other 02-18-2022 17:00-0400 Body mass index (BMI) [Ratio] 53.51 kg/m2 Michael Dunaway Other [employer] Other 02-18-2022 17:00-0400 Body weight 124.29 kg Michael Dunaway Other [employer] Other 02-18-2022 17:00-0400 Diastolic blood pressure 70 mm[Hg] Michael Dunaway Other [employer] Other 02-18-2022 17:00-0400 SaO2% (BldA) [Mass fraction] 94 % Michael Dunaway Other [employer] Other 02-18-2022 17:00-0400 Systolic blood pressure 130 mm[Hg] Michael Dunaway Other [employer] Other 01-28-2022 17:00-0500 Body height 152.4 cm Usama Batista Other [employer] Other 01-28-2022 17:00-0500 Body mass index (BMI) [Ratio] 50.38 kg/m2 Usama Batista Other [employer] Other 01-28-2022 17:00-0500 Body weight 117.03 kg Usama Batista Other [employer] Other 11-07-2021 12:20-0500 Body height 152.4 cm Quita Iris Other [employer] Other 11-07-2021 12:20-0500 Body mass index (BMI) [Ratio] 50.38 kg/m2 Quita Simmons Other [employer] Other 11-07-2021 12:20-0500 Body temperature 97.9 [degF] Quita Iris Other [employer] Other 11-07-2021 12:20-0500 Body weight 117.03 kg Quita Iris Other [employer] Other 11-07-2021 12:20-0500 Diastolic blood pressure 71 mm[Hg] Quita Simmons Other [employer] Other 11-07-2021 12:20-0500 Respiratory rate 18 /min Quita Simmons Other [employer] Other 11-07-2021 12:20-0500 SaO2% (BldA) [Mass fraction] 96 % Quita Simmons Other [employer] Other 11-07-2021 12:20-0500 Systolic blood pressure 159 mm[Hg] Quita Simmons Other [employer] Other Encounters Encounter Date Encounter Type Care Provider Facility Start: 08-12-2025 End: 08-12-2025 ambulatory Robert Ball DO Work Phone: [facility] Work Phone: Start: 08-12-2025 End: 08-12-2025 Patient encounter procedure Robert Ball DO -[facility] Work Phone: Start: 06-18-2025 End: 06-18-2025 ambulatory Robert Ball DO Work Phone: [facility] Work Phone: Start: 06-18-2025 End: 06-18-2025 Patient encounter procedure Robert Ball DO -[facility] Work Phone: Start: 06-14-2025 End: 06-14-2025 ambulatory Robert Ball DO Work Phone: [facility] Work Phone: Start: 06-14-2025 End: 06-14-2025 Patient encounter procedure Morena Donato APRN CONSTRUCTION CHECKER -[facility] Work Phone: Start: 05-16-2025 End: 05-16-2025 Patient encounter procedure Robert Ball DO -[facility] Work Phone: Start: 05-09-2025 End: 05-09-2025 Mingo Rodgerstha Harper PT [facility] Start: 05-09-2025 End: 05-09-2025 Bamboo flowsheet Jacqui Harper PT [facility] Start: 05-09-2025 End: 05-09-2025 ambulatory Jacqui Harper PT [facility] Comment on above: Low back pain, unspe cified back pain laterality, unspecified chronicity, unspecified whether sciatica present (Primary Dx) Start: 05-07-2025 End: 05-07-2025 Bamboo flowsheet Gabriel Hagen BEE WORKER [facility] Start: 05-07-2025 End: 05-07-2025 Bamboo flowsheet Gabriel Hagen BEE WORKER [facility] Start: 05-07-2025 End: 05-07-2025 ambulatory Gabriel Hagen BEE WORKER [facility] Comment on above: Low back pain, unspe cified back pain laterality, unspecified chronicity, unspecified whether sciatica present (Primary Dx) Start: 05-06-2025 End: 05-06-2025 ambulatory [facility] Work Phone: Start: 05-06-2025 End: 05-06-2025 Patient encounter procedure [facility] Work Phone: Start: 05-06-2025 End: 05-06-2025 [facility] Work Phone: Start: 05-06-2025 End: 05-06-2025 Patient encounter procedure [facility] Work Phone: Start: 05-03-2025 End: 05-03-2025 Bamboo flowsheet Jacqui Harper PT [facility] Start: 05-03-2025 End: 05-03-2025 Bamboo flowsheet Jacqui Harper PT [facility] Start: 05-03-2025 End: 05-03-2025 ambulatory Jacqui Harper PT [facility] Comment on above: Low back pain, unspe cified back pain laterality, unspecified chronicity, unspecified whether sciatica present (Primary Dx) Start: 04-30-2025 End: 04-30-2025 Bamboo flowsheet Gabriel Hagen BEE WORKER [facility] Start: 04-30-2025 End: 04-30-2025 Bamboo flowsheet Gabriel Hagen BEE WORKER [facility] Start: 04-30-2025 End: 04-30-2025 ambulatory GABRIEL HAGEN [facility] Comment on above: Low back pain, unspe cified back pain laterality, unspecified chronicity, unspecified whether sciatica present (Primary Dx) Start: 04-26-2025 End: 04-26-2025 Bamboo flowsheet Gabriel Hagen BEE WORKER [facility] Start: 04-26-2025 End: 04-26-2025 Bamboo flowsheet Gabriel Hagen BEE WORKER [facility] Start: 04-26-2025 End: 04-26-2025 ambulatory Gabriel Hagen BEE WORKER [facility] Comment on above: Low back pain, unspe cified back pain laterality, unspecified chronicity, unspecified whether sciatica present (Primary Dx) Start: 04-23-2025 End: 04-23-2025 ambulatory Gabriel Hagen BEE WORKER [facility] Comment on above: Low back pain, unspe cified back pain laterality, unspecified chronicity, unspecified whether sciatica present (Primary Dx) Start: 04-23-2025 End: 04-23-2025 Bamboo flowsyuly Hagen BEE WORKER [facility] Start: 04-23-2025 End: 04-23-2025 Bamboo flowsyuly Hagen BEE WORKER [facility] Start: 04-19-2025 End: 04-19-2025 ambulatory JACQUI HARPER Not Available Start: 04-18-2025 Non-patient / Non-visit [facility] Work Phone: Start: 04-15-2025 End: 04-15-2025 Garettboo shiv Harper PT [facility] Start: 04-15-2025 End: 04-15-2025 Garettboo shiv Harper PT [facility] Start: 04-15-2025 End: 04-15-2025 Patient encounter procedure [facility] Work Phone: Start: 04-15-2025 End: [...] (Primary Dx) Start: 04-09-2025 End: 04-09-2025 ambulatory [facility] Work Phone: Start: 04-09-2025 End: 04-09-2025 Patient encounter procedure [facility] Work Phone: Start: 04-04-2025 End: 04-04-2025 ambulatory Gabriel Hagen BEE WORKER [facility] Comment on above: Low back pain, unspe cified back pain laterality, unspecified chronicity, unspecified whether sciatica present (Primary Dx) Start: 04-04-2025 End: 04-04-2025 Bamboo flowsheet Gabriel Hagen BEE WORKER [facility] Start: 04-04-2025 End: 04-04-2025 Bamboo flowsheet Gabriel Hagen BEE WORKER [facility] Start: 04-01-2025 End: 04-01-2025 ambulatory Jacqui Harper PT [facility] Comment on above: Low back pain, unspe cified back pain laterality, unspecified chronicity, unspecified whether sciatica present (Primary Dx) Start: 03-28-2025 End: 03-28-2025 ambulatory [facility] Work Phone: Start: 03-28-2025 End: 03-28-2025 Patient encounter procedure [facility] Work Phone: Start: 03-21-2025 End: 03-21-2025 [...] 03-20-2025 ambulatory Robert Ball DO Work Phone: [facility] Work Phone: Start: 03-20-2025 End: 03-20-2025 Patient encounter procedure Robert Ball DO Work Phone: [facility] Work Phone: Start: 03-14-2025 End: 03-14-2025 Bamboo [...] 03-12-2025 ambulatory Robert Ball DO Work Phone: [facility] Work Phone: Start: 03-12-2025 End: 03-12-2025 Patient encounter procedure Robert Ball DO Work Phone: [facility] Work Phone: Start: 03-12-2025 Non-patient / Non-visit Robert Ball DO Work Phone: [facility] Work Phone: Start: 02-28-2025 End: 02-28-2025 Bamboo flowsheet Jacqui Harper PT [facility] Start: 02-28-2025 End: 02-28-2025 Bamboo flowsheet Jacqui Harper PT [facility] Start: 02-28-2025 End: 02-28-2025 ambulatory Jacqui Leroy PT [facility] Comment on above: Low back pain, unspe cified back pain laterality, unspecified chronicity, unspecified whether sciatica present (Primary Dx) Start: 02-26-2025 End: 02-26-2025 ambulatory Taye VAZQUEZ Facility:[facility] Start: 02-26-2025 End: 02-26-2025 ambulatory Robert Vail DO Work Phone: [facility] Work Phone: Start: 02-26-2025 End: 02-26-2025 Patient encounter procedure Robert Vail DO Work Phone: [facility] Work Phone: Start: 02-25-2025 End: 02-25-2025 Bamboo flowsheet Tierney Kelbley BEE WORKER [facility] Start: 02-25-2025 End: 02-25-2025 Bamboo flowsheet Tierney Kelbley BEE WORKER [facility] Start: 02-25-2025 End: 02-25-2025 ambulatory Tierney Kelbley BEE WORKER [facility] Comment on above: Low back pain, unspe cified back pain laterality, unspecified chronicity, unspecified whether sciatica present (Primary Dx) Start: 02-21-2025 ambulatory Taye VAZQUEZ Facility:[facility] Start: 02-20-2025 End: 02-20-2025 Bamboo flowsheet Tierney Kelbley BEE WORKER [facility] Start: 02-20-2025 End: 02-20-2025 Bamboo flowsheet Tierney Kelbley BEE WORKER [facility] Start: 02-20-2025 End: 02-20-2025 ambulatory Tierney Kelbley BEE WORKER [facility] Comment on above: Low back pain, unspe cified back pain laterality, unspecified chronicity, unspecified whether sciatica present (Primary Dx) Start: 02-14-2025 Non-patient / Non-visit Robert Vail DO Work Phone: [facility] Work Phone: Start: 02-14-2025 End: 02-14-2025 ambulatory Robert Vail DO Work Phone: [facility] Work Phone: Start: 02-14-2025 End: 02-14-2025 Patient encounter procedure Robert Vail DO Work Phone: [facility] Work Phone: Start: 02-13-2025 End: 02-13-2025 ambulatory GABRIEL HAGEN Not Available Start: 02-07-2025 End: 02-07-2025 Bamboo flowsheet Tierney Acuñabley BEE WORKER [facility] Start: 02-07-2025 End: 02-07-2025 Bamboo flowsheet Tierneykathleen Johnsony BEE WORKER [facility] Start: 02-07-2025 End: 02-07-2025 ambulatory Tierney Johnsony BEE WORKER [facility] Comment on above: Low [...] [facility] Start: 01-23-2025 End: 01-23-2025 Bamboo flowsheet Jacqui Harper PT [facility] Start: 01-23-2025 End: 01-23-2025 ambulatory Jacqui Harper PT [facility] Comment on above: Low back pain, unspe cified back pain laterality, unspecified chronicity, unspecified whether sciatica present (Primary Dx) Start: 01-21-2025 End: 01-21-2025 ambulatory Gabriel Hagen BEE WORKER [facility] Comment on above: Low back pain, unspe cified back pain laterality, unspecified chronicity, unspecified whether sciatica present (Primary Dx) Start: 01-21-2025 End: 01-21-2025 Bamboo flowsheet Gabriel Hagen BEE WORKER [facility] Start: 01-21-2025 End: 01-21-2025 Bamboo flowsheet Gabriel Hagen BEE WORKER [facility] Start: 01-17-2025 End: 01-17-2025 Bamboo flowsheet Gabriel Hagen BEE WORKER [facility] Start: 01-17-2025 End: 01-17-2025 Bamboo flowsheet Gabriel Hagen BEE WORKER [facility] Start: 01-17-2025 End: 01-18-2025 ambulatory Gabriel Hagen BEE WORKER [facility] Comment on above: Low back pain, unspe cified back pain laterality, unspecified chronicity, unspecified whether sciatica present (Primary Dx) Start: 01-16-2025 End: 01-16-2025 ambulatory Robert Ball DO Work Phone: [facility] Work Phone: Start: 01-16-2025 End: 01-16-2025 Patient encounter procedure Robert Ball DO Work Phone: [facility] Work Phone: Start: 01-14-2025 End: [...] 01-04-2025 ambulatory Robert Ball DO Work Phone: [facility] Work Phone: Start: 01-04-2025 End: 01-04-2025 Patient encounter procedure Robert Ball DO Work Phone: [facility] Work Phone: Start: 12-26-2024 Non-patient / Non-visit Robert Ball DO Work Phone: [facility] Work Phone: Start: 12-26-2024 End: 12-26-2024 Admission to same day surgery center Robert Ball DO Work Phone: [facility]-Digestive [facility] Work Phone: Start: 12-26-2024 End: 12-26-2024 ambulatory Robert Ball DO Work Phone: [facility] Work Phone: Start: 12-24-2024 End: 12-24-2024 ambulatory Robert Ball DO Work Phone: [facility] Work Phone: Start: 12-24-2024 End: 12-24-2024 Patient encounter procedure Robert Ball DO Work Phone: [facility] [place] Work Phone: Start: 12-12-2024 End: 12-12-2024 ambulatory [facility] Work Phone: Start: 12-12-2024 End: 12-12-2024 Patient encounter procedure [facility] Work Phone: Start: 12-12-2024 Non-patient / Non-visit [facility] Work Phone: Start: 12-10-2024 End: 12-10-2024 ambulatory [facility] Work Phone: Start: 12-10-2024 End: 12-10-2024 Patient encounter procedure [facility] Work Phone: Start: 12-07-2024 End: 12-07-2024 ambulatory [facility] Work Phone: Start: 12-07-2024 End: 12-07-2024 Patient encounter procedure [facility] Work Phone: Start: 09-04-2024 End: 09-04-2024 ambulatory DO Robert Ball Work Phone: [facility] Work Phone: Start: 09-04-2024 End: 09-04-2024 Patient encounter procedure DO Robert Ball Work Phone: [facility] Work Phone: Start: 08-28-2024 End: 08-28-2024 ambulatory DO Robert Ball Work Phone: [facility] Work Phone: Start: 08-28-2024 End: 08-28-2024 Patient encounter procedure DO Robert Ball Work Phone: [facility] Work Phone: Start: 08-28-2024 Non-patient / Non-visit DO Robert Ball Work Phone: [facility] Work Phone: Start: 08-24-2024 End: 08-24-2024 ambulatory DO Robert Ball Work Phone: [facility] Work Phone: Start: 08-24-2024 End: 08-24-2024 Patient encounter procedure DO Robert Ball Work Phone: [facility] Work Phone: Start: 08-10-2024 Non-patient / Non-visit DO Robert Ball Work Phone: [facility] Work Phone: Start: 08-10-2024 End: 08-10-2024 Admission to same day surgery center DO Robert Ball Work Phone: [facility] Work Phone: Start: 08-10-2024 End: 08-10-2024 ambulatory DO Robert Ball Work Phone: [facility] Work Phone: Start: 08-09-2024 End: 08-09-2024 Patient encounter procedure DO Robert Ball Work Phone: [facility] [place] Work Phone: Start: 08-09-2024 End: 08-09-2024 ambulatory DO Robert Ball Work Phone: [facility] Work Phone: Start: 08-06-2024 End: 08-06-2024 ambulatory DO Robert Ball Work Phone: [facility] Work Phone: Start: 08-06-2024 End: 08-06-2024 Patient encounter procedure DO Robert Ball Work Phone: [facility] Work Phone: Start: 07-31-2024 End: 07-31-2024 ambulatory DO Robert Ball Work Phone: [facility] Work Phone: Start: 07-31-2024 End: 07-31-2024 Patient encounter procedure DO Robert Ball Work Phone: [facility] Work Phone: Start: 06-15-2024 End: 06-15-2024 Patient encounter procedure DO Robert Ball Work Phone: [facility] [place] Work Phone: Start: 06-15-2024 End: 06-15-2024 ambulatory DO Robert Ball Work Phone: [facility] Work Phone: Start: 05-28-2024 End: 05-28-2024 ambulatory DO Robert Ball Work Phone: [facility] Work Phone: Start: 05-28-2024 End: 05-28-2024 Patient encounter procedure DO Robert Ball Work Phone: [facility] Work Phone: Start: 05-16-2024 Non-patient / Non-visit DO Robert Ball Work Phone: [facility] Work Phone: Start: 05-10-2024 End: 05-10-2024 ambulatory DO Robert Ball Work Phone: [facility] Work Phone: Start: 05-10-2024 End: 05-10-2024 Patient encounter procedure DO Robert Ball Work Phone: [facility] Work Phone: Start: 05-10-2024 Non-patient / Non-visit DO Robert Ball Work Phone: [facility] Work Phone: Start: 05-09-2024 End: 05-09-2024 ambulatory DO Robert Ball Work Phone: [facility] Work Phone: Start: 05-09-2024 End: 05-09-2024 Patient encounter procedure DO Robert Ball Work Phone: [facility] [place] Work Phone: Start: 05-07-2024 End: 05-07-2024 Patient encounter procedure DO Robert Ball Work Phone: [facility] [place] Work Phone: Start: 05-07-2024 End: 05-07-2024 ambulatory DO Robert Ball Work Phone: [facility] Work Phone: Start: 04-30-2024 End: 04-30-2024 ambulatory [facility] Work Phone: Start: 04-30-2024 End: 04-30-2024 Patient encounter procedure [facility] Work Phone: Start: 04-30-2024 Non-patient / Non-visit [facility]ly [facility] Work Phone: Start: 03-29-2024 End: 03-29-2024 Patient encounter procedure Formerly [facility] Work Phone: Start: 02-17-2024 Non-patient / Non-visit [facility] Work Phone: Start: 02-15-2024 End: 02-15-2024 ambulatory DO Robert Ball Work Phone: [facility] Work Phone: Start: 02-15-2024 End: 02-15-2024 Patient encounter procedure DO oRbert Vail Work Phone: [facility]ly [facility] Work Phone: Start: 01-12-2024 End: 01-12-2024 ambulatory DO Robert Ball Work Phone: [facility] Work Phone: Start: 01-12-2024 End: 01-12-2024 Departed Referred DO Robert Ball Work Phone: [facility] [place] Work Phone: Start: 12-29-2023 End: 12-29-2023 ambulatory Robert Genna Other [employer] Other Start: 12-29-2023 Telephone encounter Robert Vail FP [facility] Start: 12-22-2023 End: 12-22-2023 ambulatory Robert Genna Other [employer] Other Start: 12-22-2023 Office outpatient visit 25 minutes Robert Ball [facility] Start: 12-09-2023 End: 12-09-2023 ambulatory Robert Ball Other [employer] Other Start: 12-09-2023 Office outpatient visit 15 minutes Robert Ball [facility] Start: 12-09-2023 Patient encounter procedure DO Robert Vail Work Phone: [facility]- Start: 11-11-2023 End: 11-11-2023 ambulatory Robert Ball Other [employer] Other Start: 11-11-2023 Telephone encounter Robert Ball FP [facility] Start: 11-10-2023 End: 11-10-2023 ambulatory Robert Ball Other [employer] Other Start: 11-10-2023 Telephone encounter Robert Ball FP [facility] Start: 11-04-2023 End: 11-04-2023 ambulatory Robert Ball Other [employer] Other Start: 11-04-2023 Telephone encounter Robert Ball FP [facility] Start: 10-19-2023 End: 10-19-2023 ambulatory Robert Ball Other [employer] Other Start: 10-19-2023 Telephone encounter Robert Ball FP [facility] Start: 09-21-2023 End: 09-21-2023 ambulatory Robert Ball Other [employer] Other Start: 09-21-2023 Office outpatient visit 25 minutes Robert Ball [facility] Start: 09-08-2023 End: 09-08-2023 ambulatory Robert Ball Other [employer] Other Start: 09-08-2023 Telephone encounter Robert Ball FP [facility] Start: 08-29-2023 End: 08-29-2023 ambulatory Robert Ball Other [employer] Other Start: 08-29-2023 Telephone encounter Robert Vail FP [facility] Start: 08-16-2023 End: 08-16-2023 ambulatory Robert Vail Other [employer] Other Start: 08-16-2023 Telephone encounter Robert Vail [facility] Start: 08-15-2023 End: 08-15-2023 ambulatory Robert Genna Other [employer] Other Start: 08-15-2023 Transitional care manage srvc 14 day discharge Robert Ball [facility] Start: 07-25-2023 End: 07-25-2023 ambulatory Robert Genna Other [employer] Other Start: 07-25-2023 Telephone encounter Robert Vail FP [facility] Start: 07-21-2023 End: 07-21-2023 ambulatory Robert Vail Other [employer] Other Start: 07-21-2023 Telephone encounter Robert Ball FP [facility] Start: 07-19-2023 End: 07-19-2023 ambulatory Robert Genna Other [employer] Other Start: 07-19-2023 Telephone encounter Robert Ball FP [facility] Start: 07-11-2023 End: 07-11-2023 ambulatory Robert Genna Other [employer] Other Start: 07-11-2023 Office outpatient visit 25 minutes Robert Ball [facility] Start: 05-25-2023 End: 05-25-2023 ambulatory Robert Ball Other [employer] Other Start: 05-25-2023 Office outpatient visit 15 minutes Robert Ball [facility] Start: 04-26-2023 End: 04-26-2023 ambulatory Robert Ball Other [employer] Other Start: 04-26-2023 Telephone encounter Robert Ball FP [facility] Start: 04-08-2023 End: 04-08-2023 ambulatory Robert Vail Other [employer] Other Start: 04-08-2023 Office outpatient visit 15 minutes Robert Vail [facility] Start: 04-07-2023 End: 04-08-[address] ROBERT VAIL Facility: Start: 03-23-2023 End: 03-23-2023 ambulatory Robert Vail Other [employer] Other Start: 03-23-2023 Office outpatient visit 15 minutes Robert Genna [facility] Start: 03-16-2023 End: 03-16-2023 ambulatory Robert Vail Other [employer] Other Start: 03-16-2023 Telephone encounter Robert Vail JOSELYN [facility] Start: 03-14-2023 End: 03-15-[address] ROBERT VAIL [facility] Other Start: 03-14-2023 Telephone encounter Robert Genna ALVES [facility] Start: 03-10-2023 End: 03-10-2023 ambulatory Robert Vail Other [employer] Other Start: 03-10-2023 Office outpatient visit 15 minutes Robert Vail [facility] Start: 03-10-2023 Telephone encounter Robert Vail FP [facility] Start: 03-02-2023 End: 03-02-2023 ambulatory Robert Vail Other [employer] Other Start: 03-02-2023 Patient encounter procedure Robert Vail [facility] Start: 02-14-2023 End: 02-14-2023 ambulatory Robert Vail Other [employer] Other Start: 02-14-2023 Office outpatient visit 25 minutes Michael Dunaway [facility] Start: 02-14-2023 Telephone encounter Robert Vail FP [facility] Start: 02-03-2023 (PROC) PROCEDURE Michael Emelyn [place] [facility] Start: 02-03-2023 End: 02-03-2023 ambulatory Michael Dunaway Other [employer] Other Start: 01-27-2023 End: 01-27-2023 ambulatory Michael Dunaway Other [employer] Other Start: 01-27-2023 Follow-up encounter Michael Dunaway [facility] Start: 01-19-2023 End: 01-19-2023 ambulatory Robert Vail Other [employer] Other Start: 01-19-2023 Telephone encounter Robert Vail [facility] Start: 01-04-2023 (PROC) PROCEDURE Michael Ramírez [facility] Start: 01-04-2023 End: 01-04-2023 ambulatory Michael Dunaway Other [employer] Other Start: 12-31-2022 End: 12-31-2022 ambulatory Michael Dunaway Other [employer] Other Start: 12-31-2022 Office outpatient visit 25 minutes Michael Dunaway [facility] Start: 12-27-2022 End: 12-27-2022 ambulatory Ivon Batista Other [employer] Other Start: 12-27-2022 Office outpatient visit 15 minutes Ivon Batista [facility] Start: 12-02-2022 End: 12-02-2022 ambulatory Ursula Velarde Other [employer] Other Start: 12-02-2022 Office outpatient visit 15 minutes Ursula Velarde [facility] Start: 11-18-2022 (PROC) PROCEDURE Michael Ramírez [facility] Start: 11-18-2022 End: 11-18-2022 ambulatory Michael Dunaway Other [employer] Other Start: 11-03-2022 Pre-procedure evaluation check Robert Vail Other [employer] Other Start: 11-02-2022 End: 11-02-2022 ambulatory Michael Dunaway Other [employer] Other Start: 11-02-2022 Office outpatient visit 25 minutes Michael Emelyn [facility] Start: 10-26-2022 (Procedure) Short Michael Dunaway [facility] Start: 10-26-2022 End: 10-26-2022 ambulatory Michaelrancho Dunaway Other [employer] Other Start: 09-11-2022 End: 09-11-2022 ambulatory Kaitlynn Foy Other [employer] Other Start: 09-11-2022 Office outpatient visit 25 minutes Kaitlynn Foy [facility] [place] Start: 09-10-2022 End: 09-10-2022 ambulatory Michaelrancho Dunaway Other [employer] Other Start: 09-10-2022 Office outpatient visit 15 minutes Michaelrancho Dunaway [facility] Start: 08-24-2022 (Procedure) Short Michael Dunaway [facility] Start: 08-24-2022 End: 08-24-2022 ambulatory Michaelrancho Dunaway Other [employer] Other Start: 08-03-2022 (Procedure) Short Michael Dunaway [facility] Start: 08-03-2022 End: 08-03-2022 ambulatory Michael Dunaway Other [employer] Other Start: 07-29-2022 End: 07-29-2022 ambulatory Michael Dunaway Other [employer] Other Start: 07-29-2022 Office outpatient visit 15 minutes Michael Emelyn [facility] Start: 07-25-[address] ROBERT VAIL Facili ty:[facility] Start: 07-22-2022 (Procedure) Short Michael Dunaway [facility] Start: 07-22-2022 End: 07-22-2022 ambulatory Michael Dunaway Other [employer] Other Start: 07-06-2022 End: 07-07-[address] ROBERT VAIL Facility:[facility] Start: 07-02-2022 End: 07-02-2022 ambulatory Michael Dunaway Other [employer] Other Start: 07-02-2022 Office outpatient visit 25 minutes Michael Emelyn [facility] Start: 06-23-2022 (Procedure) Short Michael Dunaway [facility] Start: 06-23-2022 End: 06-23-2022 ambulatory Michael Dunaway Other [employer] Other Start: 06-23-2022 End: 06-23-2022 Admission to same day surgery center DO Robert [facility]ail [facility] Start: 06-18-2022 End: 06-18-2022 ambulatory Michael Dunaway Other [employer] Other Start: 06-18-2022 Office outpatient visit 25 minutes Michael Emelyn [facility] Start: 05-05-2022 End: 05-05-2022 Patient encounter procedure DO Robert Vail Work Phone: [facility] Start: 04-30-2022 End: 05-01-[address] ROBERT VAIL Facility:[facility] Start: 04-13-2022 End: 04-14-[address] ROBERT VAIL Facility:[facility] Start: 04-01-2022 End: 04-01-2022 ambulatory Maico Lloyd Other [employer] Other Start: 04-01-2022 Telephone encounter Maico Lloyd [facility] Start: 03-19-2022 End: 03-19-2022 ambulatory Michael Dunaway Other [employer] Other Start: 03-19-2022 Telephone encounter Michael Dunaway [facility] Start: 03-11-2022 End: 03-11-2022 ambulatory Michael Dunaway Other [employer] Other Start: 03-11-2022 Office outpatient visit 25 minutes Michael Dunaway [facility] Start: 03-04-2022 End: 03-04-2022 Patient encounter procedure Taye VAZQUEZ [facility] [place] Start: 02-25-2022 (Procedure) Short Michael Dunaway [facility] Start: 02-25-2022 End: 02-25-2022 ambulatory Michael Dunaway Other [facility] [employer] Other Start: 02-18-2022 End: 02-18-2022 ambulatory Michael Dunaway Other [place] [employer] Other Start: 02-18-2022 Office outpatient ne w 45 minutes Michael Dunaway [facility] Start: 01-28-2022 End: 01-28-2022 ambulatory Usama Batista Other [employer] Other Start: 01-28-2022 Office outpatient ne w 45 minutes Usama Batista [facility] Start: 01-20-2022 Adult health examination Robert Vail Other [employer] [place] [employer] Other Start: 11-07-2021 End: 11-07-2021 ambulatory Quita Simmons Other [facility] [employer] Other Start: 11-07-2021 Office outpatient ne w 20 minutes Quita Simmons [facility] [place] Procedures Date Procedure Procedure [...] extraction and insertion of intraocular lens Taye VAZQUEZ Start: 08-16-2017 Cataract extraction and insertion of intraocular lens Taye MUROGodwin Comment on above: right eye Start: 10-07-2015 Screening mammography Robert Vail Other Start: 04-07-2015 L4-L5 lumbar laminectomy, foraminotomy with facetectomy with decompression L5 nerve roots bilaterally 2 Taye MUROL Comment on above: see operative report for [...] Office Visit [facility] [address] [place] [address] Jr. Fernando Silva, DO [address] [place] [address] [facility] Start: 05-09-2025 End: 05-09-2025 ambulatory 05/09/2025 10:30 AM EDT Treatment [facility] [address] [place] [address] Jacqui Harper, PT [facility] Start: 05-07-2025 End: 05-07-2025 ambulatory 05/07/2025 12:30 PM EDT Treatment [facility] [address] [facility] [address] [place] [address] Gabriel Hagen, BEE WORKER [facility] Start: 05-03-2025 End: 05-03-2025 ambulatory [facility] Start: 04-30-2025 End: 04-30-2025 ambulatory [facility] Start: 04-26-2025 End: 04-26-2025 ambulatory 04/26/2025 9:00 AM EDT Treatment [facility] [address] [facility] [address] [place] [address] Gabriel Hagen, BEE WORKER [facility] Start: 04-23-2025 End: 04-23-2025 ambulatory 04/23/2025 4:30 PM EDT Treatment [facility] [address] [facility] [address] [place] [address] Gabriel Hagen, BEE WORKER Low back pain, unspecified back pain laterality, unspecified chronicity, unspecified whether sciatica present (Primary Dx) [facility] Comment on above: Low back pain, unspe cified back pain laterality, unspecified chronicity, unspecified whether sciatica present (Primary Dx) Start: 04-17-2025 End: 04-17-2025 ambulatory 04/17/2025 11:00 AM EDT Treatment [facility] [address] [facility] [address] [place] [address] Jacqui Harper, PT [facility] Start: 04-15-2025 End: 04-15-2025 ambulatory 04/15/2025 9:30 AM EDT Treatment [facility] [address] [facility] [address] [place] [address] Jacqui Harper, PT [facility] Start: 04-11-2025 End: 04-11-2025 ambulatory 04/11/2025 9:00 AM EDT Treatment [facility] [address] [place] [address] Jacqui Harper, PT [facility] Start: 04-08-2025 End: 04-08-2025 ambulatory 04/08/2025 1:00 PM EDT Treatment [facility] [address] [place] [address] Gabriel Hagen, BEE WORKER [facility] Start: 04-01-2025 End: 04-01-2025 ambulatory 04/01/2025 9:30 AM EDT Treatment [facility] [address] [place] [address] Jacqui Harper, PT [facility] Start: 03-21-2025 End: 03-21-2025 ambulatory 03/21/2025 8:30 AM EDT Treatment [facility] [address] [place] [address] Jacqui Harper, PT [facility] Start: 03-14-2025 End: 03-14-2025 ambulatory [facility] Comment on above: Arrived Start: 02-28-2025 End: 02-28-2025 ambulatory [facility] Start: 02-25-2025 End: 02-25-2025 ambulatory 02/25/2025 12:00 PM EDT Treatment [facility] [address] [place] [address] Tierney Schuster, BEE WORKER [facility] Start: 02-20-2025 End: 02-20-2025 ambulatory 02/20/2025 1:00 PM EDT Treatment [facility] [address] [place] [address] Tierney Schuster, BEE WORKER Arrived [facility] Comment on above: Arrived Start: 02-13-2025 End: 02-13-2025 ambulatory 02/13/2025 1:00 PM EDT Treatment [facility] [address] [place] [address] Gabriel Hagen, BEE WORKER [facility] Start: 02-11-2025 End: 02-11-2025 ambulatory 02/11/2025 12:30 PM EDT Treatment [facility] [address] [facility] [address] [place] [address] Amparo Giron, BEE WORKER [facility] Start: 01-31-2025 End: 01-31-2025 ambulatory 01/31/2025 12:00 PM EST Treatment [facility] [address] [facility] [address] [place] [address] Gabriel Hagen, BEE WORKER [facility] Start: 01-28-2025 End: 01-28-2025 ambulatory 01/28/2025 12:00 PM EST Treatment [facility] [address] [facility] [address] [place] [address] Jacqui Harper, PT [facility] Start: [...] EST Evaluation [facility] [address] [facility] [address] [place] [address] Jacqui Harper, PT Arrived [facility] Comment on above: Arrived Start: 12-26-2024 [facility] Start: 08-10-2024 [facility] Start: 01-12-2024 Superficial Wound Culture Superficial Wound Culture [facility] Start: 06-23-2022 [facility] Work Phone: Start: 05-05-2022 [facility] Work Phone: Start: 07-29-2018 Pneumococcal Vaccine : 65+ Years (2 of 2 - PCV) Pneumococcal Vaccine: 65+ Years (2 of 2 - PCV) [facility] aPTT in Platelet poo r plasma by Coagulation assay [facility] Comprehensive metabo lic 1999 panel - Serum or Plasma [facility] Comprehensive metabo lic 1999 panel - Serum or Plasma [facility] Microalbumin [Mass/volume] in Urine [facility] MR Lumbar spine WO contrast [facility] Patient Education [facility] Work Phone: Patient referral [facility] Work Phone: XR Lumbar spine 4 Views [facility] XR Pelvis 1 or 2 Views [facility] XR Sacrum and Coccyx GE 2 Views [facility] Immunizations Immunization Date Immunization Notes Care Provider Fa [facility] 08-12-2025 influenza, high dose seasonal, preservative-free Robert Ball DO Work Phone: [facility] 08-06-2024 influenza, high dose seasonal, preservative-free DO Robert Ball Work Phone: [facility] 08-15-2023 influenza, high dose seasonal, preservative-free Robert Ball Other [employer] Other 08-15-2023 influenza virus vaccine, unspecified formulation DO Robert Ball Work Phone: [facility] 10-13-2022 Influenza vaccine, quadrivalent, adjuvanted DO Robert Ball Work Phone: [facility] 10-13-2022 influenza virus vaccine, split virus (incl. purified surface antigen) Robert Ball Other [employer] Other 10-13-2022 influenza virus vaccine, unspecified formulation DO Robert Ball Work Phone: [facility] 10-08-2022 influenza virus vaccine, unspecified formulation DO Robert Ball Work Phone: [facility] 10-08-2022 influenza, high dose seasonal, preservative-free Robert Vail Other [facility] Other 10-05-2021 COVID-19 Vaccine Pfi zer - Documentation Purposes Only Robert Vail Other [facility] 09-02-2021 influenza virus vaccine, split virus (incl. purified surface antigen) Robert Vail Other [facility] Other 09-02-2021 influenza virus vaccine, unspecified formulation DO [facility] Work Phone: [facility] 02-11-2021 COVID-19 Vaccine Pfi zer - Documentation Purposes Only Robert Vail Other [facility] 01-21-2021 COVID-19 Vaccine Pfi zer - Documentation Purposes Only Robert Vail Other [facility] 08-25-2020 influenza virus vaccine, split virus (incl. purified surface antigen) Robert Vail Other [facility] Other 08-25-2020 influenza virus vaccine, unspecified formulation DO [facility] Work Phone: [facility] 08-30-2019 influenza virus vaccine, split virus (incl. purified surface antigen) Robert Vail Other [facility] Other 08-30-2019 influenza virus vaccine, unspecified formulation DO [facility] Work Phone: [facility] 10-11-2018 influenza, injectabl e, quadrivalent, preservative free DO [facility] Work Phone: [facility] 09-18-2018 influenza virus vaccine, split virus (incl. purified surface antigen) Robert Vail Other [facility] Other 09-18-2018 influenza virus vaccine, unspecified formulation DO [facility] Work Phone: [facility] 09-18-2018 Seasonal trivalent influenza vaccine, adjuvanted, preservative free DO [facility] Work Phone: [facility] 08-17-2017 influenza virus vaccine, split virus (incl. purified surface antigen) Robert Vail Other [employer] Other 08-17-2017 influenza virus vaccine, unspecified formulation DO [facility] Work Phone: [facility] 08-17-2017 influenza, high dose seasonal, preservative-free DO [facility] Work Phone: [facility] 07-29-2017 pneumococcal polysaccharide vaccine, 23 valent Robert Vail Other [facility] 02-14-2017 influenza virus vaccine, split virus (incl. purified surface antigen) Robert Vail Other [employer] Other 02-14-2017 influenza virus vaccine, unspecified formulation DO [facility] Work Phone: [facility] 10-07-2015 pneumococcal conjuga te vaccine, 13 valent Robert Vail Other [facility] 08-19-2015 influenza virus vaccine, split virus (incl. purified surface antigen) Robert [facility] Other [facility] Other 08-19-2015 influenza virus vaccine, unspecified formulation DO [facility] Work Phone: [facility] 09-19-2014 tetanus and diphther ia toxoids, adsorbed, preservative free, for adult use (5 Lf of tetanus toxoid and 2 Lf of diphtheria toxoid) Robert [facility] Other [facility] 08-17-2013 tetanus and diphther ia toxoids, adsorbed, preservative free, for adult use (5 Lf of tetanus toxoid and 2 Lf of diphtheria toxoid) [facility] Other [facility] 08-02-2012 tetanus and diphther ia toxoids, adsorbed, preservative free, for adult use (5 Lf of tetanus toxoid and 2 Lf of diphtheria toxoid) Robert Vail Other [facility] 06-04-2011 zoster vaccine, live DO Benj anand Vail Work Phone: [facility] 07-03-2009 pneumococcal polysaccharide vaccine, 23 valent Robert Vail Other [facility] Payers Date Payer Category Payer Unknown [id number] 2024 Self-pay [id number] 2010 Private Health Insurance [id number] [id number] 2010 Unknown [id number] 2006 Medicare MEDICARE [id number] 1959 Medicare [id number] 1959 Self-pay [id number] 1959 Unknown [id number] 2.16.840.1.269420.19 1941 Unknown [id number] .16840.1.333477.3.579. 2.593 1941 Unknown [id number] 2.16840.1.727488.3.579. 2.593 1941 Unknown [id number] 2.16.840.1.529369.3.579. 2.593 1941 Unknown [id number] 2.16.840.1.183139.3.579. 2.593 1941 Unknown [id number] 2.16.840.1.760258.3.579. 2.593 1941 Unknown [id number] 2.16.840.1.942868.3.579. 2.593 1941 Unknown [id number] 2.16.840.1.288109.3.579. 2.727 1941 Unknown [id number] 2.16.840.1.667408.3.579. 2.727 1941 Unknown [id number] 2.16.840.1.409894.3.579. 2.727 1941 Unknown [id number] 2.16.840.1.823649.3.579. 2.1259 1941 Unknown [id number] 2.16.840.1.165939.3.579. 2.1259 1941 Unknown [id number] 2.16.840.1.924873.3.579. 2.1259 1941 Unknown [id number] 2.16.840.1.819785.3.579. 2.1259 1941 Unknown [id number] 2.16.840.1.449697.3.579. 2.1259 1941 Unknown [id number] 2.16.840.1.836557.3.579. 2.1259 1941 Unknown [id number] 2.16.840.1.068940.3.579. 2.1259 1941 Unknown [id number] 2.16.840.1.609810.3.579. 2.1259 1941 Unknown [id number] 2.16.840.1.610245.3.579. 2.1259 1941 Unknown [id number] 2.16.840.1.494120.3.579. 2.1258 1941 Unknown [id number] 2.16.840.1.985852.3.579. 2.125 1941 Unknown [id number] 2.16.840.1.141273.3.579. 2.1258 1941 Unknown [id number] 2.16.840.1.055522.3.579. 2.1258 1941 Unknown [id number] 2.16.840.1.958572.3.579. 2.1258 1941 Unknown [id number] 2.16.840.1.907966.3.579. 2.1258 1941 Unknown [id number] 2.16.840.1.701314.3.579. 2.1258 1941 Unknown [id number] 2.16.840.1.093307.3.579. 2.1258 1941 Unknown [id number] 2.16.840.1.425572.3.579. 2.1258 1941 Unknown [id number] 2.16.840.1.782031.3.579. 2.1258 1941 Unknown [id number] 2.16.840.1.418027.3.579. 2.1258 1941 Unknown [id number] 2.16.840.1.755930.3.579. 2.125 1941 Unknown [id number] 2.16.840.1.543278.3.579. 2.1258 1941 Unknown [id number] 2.16.840.1.861054.3.579. 2.1259 Unknown [id number] 2.16.840.1.232946.3.579. 2.531 Unknown [id number] 2.16.840.1.130149.3.579. 2.531 Unknown [id number] 2.16.840.1.282677.3.579. 2.531 Unknown [id number] 2.16.840.1.860800.3.579. 2.531 Unknown [id number] 2.16.840.1.533642.3.579. 2.531 Unknown [id number] 2.16.840.1.078028.3.579. 2.531 Unknown [id number] 2.16.840.1.144333.3.579. 2.531 Unknown [id number] 2.16.840.1.591452.3.579. 2.531 Social History Date Type Detail Facility Start: 03-04-2022 End: 03-20-2025 Tobacco smoking status Ex-smoker (finding) [facility] [employer] Other Tobacco smoking status Never [facility] [place] Start: 04-09-2024 Sex Assigned At Female N [facility] [employer] Other Start: 03-24-2022 End: 08-10-2024 Tobacco smoking status NHIS Never smoked tobacco (finding) [facility] Start: 1940 Sex Assigned At Female F [facility] Start: 12-07-2024 End: 05-06-2025 Sex Female (finding) [facility] History of tobacco use Current smoker [facility] History of tobacco use Cigarette Smoker [facility] Start: 10-31-2023 Tobacco use and exposure Smokeless tobacco non-user [facility] Start: 04-09-2024 Alcoholic beverage intake Ex-drinker (finding) [facility] Start: 04-09-2024 History of Social function [facility] Start: 1940 Sex assigned at Not on file [facility] Medical Equipment Procedure Code Equipment Code Equipment Origin al Text Equipment Identifier Dates Capsule endoscopy, for patency of lumen evaluation Video capsule endoscopy system [id number] [facility] Start: 05-05-2022 Goals Date Patient Goal Desired Activity /State Clinical Notes 11-07-2021 to 05-16-2025 Note Date & Type Note Facility 05-16-2025 Evaluation note Diagnosis Onset Date Resolution Chronic venous insufficiency acute May 16, 2025 11:39am Noninfected skin tear of right lower extremity acute May 16, 2025 11:39am Cellulitis acute June 14 11:24am Skin tear acute June 14 11:24am Cellulitis acute June 18 1:46pm Chronic venous insufficiency acute June 18, 2025 1:46pm Skin tear acute June 18 1:46pm Anemia acute July 10:31am Cellulitis acute July 10:31am Chronic venous insufficiency acute August 12, 2025 10:31am Generalized seizure disorder acute August 12, 2025 10:31am Hypercholesteremia acute 2024 10:31am Hypertension acute August 122024 10:31am KERMIT (obstructive sleep apnea) acute August 12, 2025 10:31am Skin tear acute July 10:31am Thrombophilia acute July 292024 10:31am Type 2 diabetes mellitus with hyperglycemia acute July 10:31am [facility] Work Phone: 1(459) 623-141406-12-2025 History of Present illness Narrative* Jacqui Leroy, PT - 05/09/2025 10:30 AM EDT Images from the original note [...] healed. Today is last day PT. Pain: 10 - standing Objective: PT Evaluation (01/14/2025) LUMBAR [...] limited due to bilateral radicular pain. Pain increasedat end range of trunk extension. Strength bilateral hips 4- to 4/5 with MMT. Core strength is fair.LEFS score: 42/80. We will now discharge due to plateau in progress. Outcome Measure: Lower Extremity Functional Scale (LEFS): Rehab Diagnosis: low back pain, bilateral LE pain and weakness, difficulty walking Short Term Goal: To be met in 2 weeks Goal 1: Pt to be instructed in home exercise program. - met Utilization Reviewer Goals: To be met in 10 weeks [...] - met Discharge PT documented in this encounterP[facility] [id number] History of Present illness Narrative* Jacqui Harper PT - 05/03/2025 9:00 AM EDT Images from the original [...] instructed in home exercise program. - met Assisted Goals: To be met in 10 weeks [...] Please sign below. Date: documented in this encounterPemiscot Memorial Health [id number] History of Present illness Narrative* Jacqui Harper, PT - 04/15/2025 9:30 AM [...] instructed in home exercise program. - met Assisted Goals: To be met in 10 weeks [...] Please sign below. Date: documented in this encounterPemiscot [facility] [id number] History of Present illness Narrative* Jacqui Harper, PT - 04/11/2025 9:00 AM [...] instructed in home exercise program. - met Utilization Reviewer Goals: To be met in 10 weeks [...] Please sign below. Date: documented in this encounterPemiscot [facility] [id number] History of Present illness Narrative* Jacqui Harper, PT - 04/01/2025 10:00 AM EDT Images from the original note [...] instructed in home exercise program. - met Utilization Reviewer Goals: To be met in 10 weeks [...] Please sign below. Date: documented in this encounterPemiscot [facility] [id number] History of Present illness Narrative* Jacqui Harper PT - 03/21/2025 8:30 AM EDT Images from the original note [...] back pain. Pt continues to require sitting restbreaks during standing activities. Pt continues to report increase pain in left buttock and HS withprolong standing. Progressed exercises with min complaints of increase pain overall. Outcome Measure: Lower Extremity Functional Scale (LEFS): 24/80 Rehab Diagnosis: low back pain, bilateral LE pain and weakness, difficulty walking Short Term Goal: To be met in 2 weeks Goal 1: Pt to be instructed in home exercise program. - met Assisted Goals: To be met in 10 weeks [...] Please sign below. Date: documented in this encounterPemiscot Memorial [facility] [id number] Evaluation note* Diagnosis Onset Date Resolution Status [...] 11:24am Skin tear acute June 14 11:24am [facility] Work Phone: 1(937) 832-519804-23-2025 Evaluation note* Diagnosis Onset Date Resolution Status [...] 1:46pm Skin tear acute June 18 1:46pm [facility] Work Phone: 1(573) 951-483804-17-2025 History of Present illness Narrative* Jacqui Harper, [...] has been feeling better since injections on Tues. States she is still having pain near glute fold bilateral but back is doing better and pt is able to ambulate more upright.Will see Pain Management again next week for follow up. Pain: 8/10 Objective: PT Evaluation (01/14/2025) LUMBAR [...] instructed in home exercise program. - met Assisted Goals: To be met in 10 weeks [...] Please sign below. Date: documented in this encounterPemiscot Memorial Health [id number] History of Present illness Narrative* Jacqui Harper, [...] will have procedure done on 03/12/25. Pain: 07/07 Objective: PT Evaluation (01/14/2025) LUMBAR [...] instructed in home exercise program. - met Assisted Goals: To be met in 10 weeks [...] Please sign below. Date: documented in this encounterPemiscot Memorial Health [id number] NoteGeneral Surgery Office/Clinic Note Chief Complaint consultation [...] require lift technique; patient requests referral to [facility]; call with problems/questions. Ordered: [facility] Internal Ambulatory Referral Follow-up No qualifying data [...] Sister. Hypertension: Father, Siste (more content not included)...[facility] HospitalComment on above:Result Comment: Electronically Signed By: GEORGE JENNINGS, Taye Ellington\Date and Time Signed: 02/26/25 13:52 [id number] Evaluation note * Diagnosis Onset Date Resolution Status Admit Date Lumbosacral spondylosis acute A 2024 10:33am Post laminectomy syndrome acute February 26, 2025 10:33am Sacroiliitis acute February 26 10:33am Chronic pain deleted February 26 10:33am Encounter for monitoring Cou madin therapy deleted February 26, 2025 10:33am Lumbosacral spondylosis acute A 2024 1:27pm Post laminectomy syndrome acute March [...] 062024 11:46am Sacroiliitis acute May 06 11:46am [facility] Work Phone: 1([phone] 151-851203-03-2025 Telephone encounter Note* Telephone Encounter - Jenna Servin - 01/28/2025 8:25 AM EST She called noting up all last night not feeling well and no better this morning; she cx her 12:00 PT. I reminded and she said she will try to make her 3/6 PT; if unable she will contact jennifer. [facility] [id number] Miscellaneous Notes* Telephone Encounter - Jenna Servin - 01/28/2025 8:25 AM EST She called noting up all last night not feeling well and no better this morning; she cx her 12:00 PT. I reminded and she said she will try to make her 3/6 PT; if unable she will contact jennifer. documented in this encounterPemiscot Memorial Health [id number] History of Present illness Narrative* Jacqui Harper, [...] Left low back is hurting more today. [place] good after last session but pain returned. [...] as needed. Manual lumbar distraction supine with irish ball. Therapeutic Exercise: (31 minutes) Strength, Endurance, [...] to be instructed in home exercise program. Assisted Goals: To be met in 10 weeks [...] Please sign below. Date: documented in this [facility]02-19-2025 Evaluation note* Diagnosis Onset Date Resolution Status [...] it, subsequent noneactive April 09, 2025 10:24am [facility] Work Phone: 1(771) 928-786702-17-2025 History of Present illness Narrative* Jacqui Harper, [...] long periods, bilateral buttock (left >right) Pain: 09/06 Objective: PT Evaluation (01/14/2025) LUMBAR SPINE AROM: [...] to be instructed in home exercise program. Utilization Reviewer Goals: To be met in 10 weeks [...] Please sign below. Date: documented in this encounterPemiscot Memorial Health [id number] Evaluation note* Diagnosis Onset Date Resolution Status Admit Date Cellulitis acute January 04, 2025 11:37am Lumbosacral spondylosis acute F 2024 11:37am Superficial bruising of abdominal wall acute January 04 11:37am Adverse reaction to anticoagulant noneactive January 04 11:37am Chronic pain acute December 12:55pm Encounter for monitoring Coumadin therapy acute January 16, 2025 12:55pm Lumbosacral spondylosis acute F [facility]2024 12:55pm Post laminectomy syndrome acute January 16, 2025 12:55pm Sacroiliitis acute December 12:55pm Chronic pain acute February 26 10:33am Encounter for monitoring Coumadin therapy acute February 26, 2025 10:33am Lumbosacral spondylosis acute A l 2024 10:33am Post laminectomy syndrome acute February 26, 2025 10:33am Sacroiliitis acute February 26 10:33am Chronic pain acute March 20, 2025 1:27pm Encounter for monitoring Coumadin therapy acute March 20 1:27pm Lumbosacral spondylosis acute A pril 2024 1:27pm Post laminectomy syndrome acute March 20, 2025 1:27pm Sacroiliitis acute March 20, 2025 1:27pm [facility] Work Phone: 1(236) 848-243101-29-2025 [place] [address] Pain Management Procedure Note Signed Patient: Sandra Tavarez MR#: [id number] : 1940 Acct:[id number] Age/Sex: 84 / F Adm Date: 5 Loc: Room: Type: [facility] Attending Dr: Michael Dunaway MD Copies to: [...] MD 12/26/24 1119 Signed By: 12/26/24 1206 [facility]01-15-2025 Evaluation note* Diagnosis Onset Date Resolution Status Admit Date Anticoagulant long-term use acute December 12, 2024 1:39pm Chronic venous insufficiency acute December 12, 2024 1:39pm Laceration of leg excluding thigh acute December 12 1:39pm Cellulitis acute January 04, 2025 11:37am Lumbosacral spondylosis acute F 2024 11:37am Superficial bruising of abdominal wall acute January 04 11:37am Adverse reaction to anticoagulant noneactive January 04 11:37am Chronic pain acute December 12:55pm Encounter for monitoring Coumadin therapy acute January 16, 2025 12:55pm Lumbosacral spondylosis acute F ebruary 2024 12:55pm Post laminectomy syndrome acute January 16, 2025 12:55pm Sacroiliitis acute December 12:55pm Chronic pain acute February 26 10:33am Encounter for monitoring Coumadin therapy acute February 26, 2025 10:33am Lumbosacral spondylosis acute A pril 2024 10:33am Post laminectomy syndrome acute February 26, 2025 10:33am Sacroiliitis acute February 26 10:33am [facility] Work Phone: 1([phone]) 478-737801-10-2025 Evaluation note* Diagnosis Onset Date Resolution Status Admit Date Generalized seizure disorder acute December 07, 2024 10:20am Hypercholesteremia acute 2024 10:20am Hypertension acute November 10:20am Iron deficiency anemia acute [facility] 2024 10:20am Lumbar spondylosis acute 2024 10:20am [...] 10, 2024 1:37pm Sacroiliitis acute November 1:37pm [facility] Work Phone: 1(937) 540-548901-10-2025 Evaluation note* Diagnosis Onset Date Resolution Status Admit Date Generalized seizure disorder acute December 07, 2024 10:20am Hypercholesteremia acute 2024 10:20am Hypertension acute November 10:20am Iron deficiency anemia acute [facility] 2024 10:20am Lumbar spondylosis acute 2024 10:20am [...] 1:39pm Laceration of leg excluding thigh [place] December 12, 2024 1:39pm [facility] Work Phone: 1(305) 293-858501-10-2025 Evaluation note* Diagnosis Onset Date Resolution Status [...] 16, 2025 12:55pm Sacroiliitis acute December 12:55pm [facility] Work Phone: 1(807) 499-911501-10-2025 Evaluation note* Diagnosis Onset Date Resolution Status Admit Date Generalized seizure disorder acute December 07, 2024 10:20am Hypercholesteremia acute 2024 10:20am Hypertension acute November 10:20am Iron deficiency anemia acute [facility] 2024 10:20am Lumbar spondylosis acute 2024 10:20am [...] December 12:55pm Chronic pain acute February 26 10:33am Encounter for monitoring Coumadin therapy acute February 26, 2025 10:33am Lumbosacral spondylosis acute A pril 2024 10:33am Post laminectomy syndrome acute February 26, 2025 10:33am Sacroiliitis acute February 26 10:33am [facility] Work Phone: 1(735) 836-194909-13-2024 [facility] note* Encounter Date Diagnosis [...] use, the patient reduces the risk for WI, CVA, HTN, cardiac dysrhythmias and sudden cardiac [...] the risk for cerebrovascular and cardiovascular disease. [facility] Other 01-12-2024 Evaluation note* Encounter Date Diagnosis [...] infection (ICD-10 - Z20.822) Order sent to [facility], results negative for COVID infection. [facility] Other 12-14-2023 Evaluation note* Encounter Date Diagnosis Assessment Notes Treatment Notes Treatment Clinical Notes Oct, Acute cough (ICD-10 - R05.1) [facility] Other 10-25-2023 Evaluation note* Encounter Date Diagnosis [...] for additional treatment Discussed compression, pumps etc [facility] Other 10-12-2023 Evaluation note* Encounter Date Diagnosis Assessment Notes Treatment Notes Treatment Clinical Notes Aug, Lumbar spondylosis (ICD-10 - M47.816) [facility] Other 10-02-2023 Evaluation note* Encounter Date Diagnosis Assessment Notes Treatment Notes Treatment Clinical Notes Aug, Pain of right lower extremity (ICD-10 - M79.604) [facility] Other 09-18-2023 Evaluation note* Encounter Date Diagnosis [...] of right lower extremity (ICD-10 - M79.604) [facility] Other 08-22-2023 Evaluation note* Encounter Date Diagnosis Assessment Notes Treatment Notes Treatment Clinical Notes Jun, Dysuria (ICD-10 - R30.0) [facility] Other 08-14-2023 Evaluation note* Encounter Date Diagnosis [...] use, the patient reduces the risk for WI, CVA, HTN, cardiac dysrhythmias and sudden cardiac [...] or drinking prior to bedtime. Weight loss. [facility] Other 06-28-2023 Evaluation note* Encounter Date Diagnosis [...] supplied to the patient after her assessment [facility] Other 05-30-2023 Evaluation note* Encounter Date Diagnosis Assessment Notes Treatment Notes Treatment Clinical Notes March, Cellulitis of right lower extremity (ICD-10 - L03.115) [facility] Other 05-12-2023 Evaluation note* Encounter Date Diagnosis [...] - D68.59) Not able to use NSAIDs [facility] Other 04-26-2023 Evaluation note* Encounter Date Diagnosis [...] Hypercoagulable stat e (ICD-10 - D68.59) Finish [facility] and refer to med management clinic [facility] Other 04-19-2023 Evaluation note* Encounter Date Diagnosis Assessment Notes Treatment Notes Treatment Clinical Notes Feb, Generalized seizure disorder (ICD-10 - G40.309) [facility] Other 04-17-2023 NotePROCEDURE: XR CHEST 2 V [...] Electronically authenticated by: CELINA JONES Date: 2023-03-14 15:11[facility]04-17-2023 Evaluation note* Encounter Date Diagnosis Assessment Notes Treatment Notes Treatment Clinical Notes Feb, Simple chronic bronchitis (ICD-10 - J41.0) [facility] Other 04-13-2023 Evaluation note* Encounter Date Diagnosis Assessment Notes Treatment Notes Treatment Clinical Notes Feb, Acute bronchitis due to other specified organisms (ICD-10 - J20.8) Instructed to use Robitussin or Mucinex for cough, saline or Flonase NS for congestion, Tylenol for pain and fever. Feb, Seasonal allergic rhinitis due to pollen (ICD-10 - J30.1) [facility] Other 04-05-2023 Evaluation note* Encounter Date Diagnosis [...] use, the patient reduces the risk for WI, CVA, HTN, cardiac dysrhythmias and sudden cardiac [...] mammogram for breast cancer (ICD-10 - Z12.31) [facility] Other 03-20-2023 Evaluation note* Encounter Date Diagnosis [...] offered to prescribe a low dose of [place], she states she does not want to be on opioid pain medications. She can follow up in 3 months or as needed. Jan, Chronic pain (ICD-10 - G89.29) Follow up as needed [facility] Other 03-02-2023 Evaluation note* Encounter Date Diagnosis [...] (ICD-10 - G89.29) Follow up after procedure. [facility] Other 02-03-2023 Evaluation note* Encounter Date Diagnosis [...] (ICD-10 - G89.29) Follow up after procedure. [facility] Other 01-30-2023 Evaluation note* Encounter Date Diagnosis Assessment Notes Treatment Notes Treatment Clinical Notes Nov, Erysipelas (ICD-10 - A46) Start w antibiotic, take entire course. Call if no improvement for other prescription or dermatology referral. Nov, Systemic viral illness (ICD-10 - B34.9) Chills and nausea has resolved Continue to monitor symptoms [facility] Other 01-05-2023 Evaluation note* Encounter Date Diagnosis [...] - G89.29) Follow up in 4 weeks. [facility] Other 12-06-2022 Evaluation note* Encounter Date Diagnosis [...] for three days prior to each procedure [facility] Other 10-15-2022 Evaluation note* Encounter Date Diagnosis [...] treatment plan. Patient left in stable condition [facility] Other 10-14-2022 Evaluation note* Encounter Date Diagnosis [...] - G89.29) Follow up in 4 weeks. [facility] Other 09-01-2022 Evaluation note* Encounter Date Diagnosis [...] Eliquis for 3 days prior to procedure [facility] Other 08-05-2022 Evaluation note* Encounter Date Diagnosis [...] Eliquis for 3 days prior to procedure [facility] Other 07-27-2022 [facility]* Encounter Date Diagnosis [...] Eliquis for 3 days prior to procedure [facility] Other 04-14-2022 Evaluation note* Encounter Date Diagnosis [...] medial branch nerve blocks in the future. [facility] Other 03-24-2022 Evaluation note* Encounter Date Diagnosis [...] prior surgery with Dr. Rivers at [facility] 8 years ago. She also reports prior [...] negative findings were considered in medical decision-making. [facility] Other 03-03-2022 Evaluation note* Encounter Date Diagnosis [...] Asymptomatic age-related postmenopausal state (ICD-10 - Z78.0) [facility] Other 2021 Evaluation note* Encounter Date Diagnosis [...] no improvement in 2 to 3 days [facility] Other Evaluation + Plan note No data available for this section [facility] [place] Evaluation noteNo InformationNortHospital of [facility] Other Evaluation noteNo assessment information available [facility] Work Phone: Evaluation note* Diagnosis Onset Date Resolution Status Chronic venous insufficiency acute Hypertension acute Lumbar spondylosis acute Thrombophilia acute [facility] Work Phone: Evaluation note* Diagnosis [...] pain acute Ischial bursitis acute Lumbosacral spondylosis [facility] Work Phone: Evaluation note* Diagnosis Onset Date Resolution Status Generalized seizure disorder acute Hypercholesteremia acute Hypertension acute Lumbar spondylosis acute KERMIT (obstructive sleep apnea) acute Thrombophilia acute Type 2 diabetes mellitus with hyperglycemia acute Medicare annual wellness visit, subsequent noneactive Anticoagulant long-term use acute Arthritis of sacroiliac joint acute Chronic pain acute Ischial bursitis acute Lumbosacral spondylosis [facility] Work Phone: Evaluation note* Diagnosis Onset [...] spondylosis acut e Post laminectomy syndrome ac [facility] Work Phone: Evaluation note* Diagnosis Onset Date Resolution Status Ischial bursitis acute Lumbosacral spondylosis acut e Post laminectomy syndrome [place] Anticoagulant long-term use acute Chronic pain acute Lumbosacral spondylosis acut e Post laminectomy syndrome ac [facility] Work Phone: Evaluation note* Diagnosis Onset Date Resolution Status Ischial bursitis acute Lumbosacral spondylosis acut e Post laminectomy syndrome ac [place] Anticoagulant long-term use acute Chronic pain acute Lumbosacral spondylosis acut e Post laminectomy syndrome [place] Generalized seizure disorder acute Hypercholesteremia acute Hypertension acute Lumbar spondylosis acute KERMIT (obstructive sleep apnea) acute Thrombophilia acute Type 2 diabetes mellitus with hyperglycemia acute [facility] Work Phone: Evaluation note* Diagnosis Onset Date Resolution Status Ischial bursitis acute Lumbosacral spondylosis acut e Post laminectomy syndrome ac [place] Anticoagulant long-term use acute Chronic pain acute Lumbosacral spondylosis acut e Post laminectomy syndrome ac [place] Generalized seizure disorder acute Hypercholesteremia acute Hypertension acute Lumbar spondylosis acute KERMIT (obstructive sleep apnea) acute Thrombophilia acute Type 2 diabetes mellitus with hyperglycemia acute Anticoagulant long-term use acute Chronic pain acute Lumbosacral spondylosis acut e Post laminectomy syndrome [place] Sacroiliitis acute [facility] Work Phone: Evaluation note* Diagnosis Onset Date Resolution Status Anticoagulant long-term use acute Chronic pain acute Lumbosacral spondylosis acut e Post laminectomy syndrome ac [place] Generalized seizure disorder acute Hypercholesteremia acute Hypertension acute Lumbar spondylosis acute KERMIT (obstructive sleep apnea) acute Thrombophilia acute Type 2 diabetes mellitus with hyperglycemia acute Anticoagulant long-term use acute Chronic pain acute Lumbosacral spondylosis acut e Post laminectomy syndrome [place] Sacroiliitis acute [facility] Work Phone: Evaluation note* Diagnosis Onset Date Resolution Status Anticoagulant long-term use acute Chronic pain acute Lumbosacral spondylosis acut e Post laminectomy syndrome [place] Generalized seizure disorder acute Hypercholesteremia acute Hypertension acute Lumbar spondylosis acute KERMIT (obstructive sleep apnea) acute Thrombophilia acute Type 2 diabetes mellitus with hyperglycemia acute Anticoagulant long-term use acute Chronic pain acute Lumbosacral spondylosis acut e Post laminectomy syndrome [place] Sacroiliitis acute Chronic pain acute Lumbosacral spondylosis acut e Post laminectomy syndrome [place] Sacroiliitis acute [facility] Work Phone: Evaluation note* Diagnosis Onset Date Resolution Status Admit Date Generalized seizure disorder acute December 07, 2024 10:20am Hypercholesteremia acute y 2024 10:20am Hypertension acute November 10:20am Iron deficiency anemia acute Ja nuary 2024 10:20am Lumbar spondylosis acute 2024 10:20am KERMIT (obstructive sleep apnea) acute December 07, 2024 10:20am Thrombophilia acute November 10:20am Type 2 diabetes mellitus wit h hyperglycemia acute December 07 10:20am [facility] Work Phone: Evaluation note* Diagnosis Low back [...] sciatica present- Primary documented in this encounter [facility] HealthcareHistory general Narrative - Reported* Type [...] repair right femur Hospitalization History see above [facility] Other History general Narrative - Reported* Type Description Date Medical History astma Medical History Osteoporosis Medical History HTN (hypertension) Medical History Hypercholesteremia Surgical History BL/CTR Surgical History craniotomy Surgical History rotator cup repair Surgical History rt knee arthosopy,chondroplasty Surgical History Colonoscopy 02/2022 Surgical History EGD-2005 Surgical History RT TKA Surgical History Cystoscopy Surgical History nadine sigmoid resection Surgical History cholecystectomy Surgical History IVC filter Surgical History knee replacement left Surgical History fracture repair right femur Hospitalization History see above [facility] Other Hospital Discharge instructions No data available for this section [facility] [place] Reason for referral (narrative)* Reason Referral for lower e xtremity ulceration Diagnosis 1 Ulcer associated wit h varicose vein, with infection (I83.209) Referral Organization [facility] Arelis cano Referring Provider First Name Robert Referring Provider Last Name Genna Referring Provider Specialty Internal Me dicine Referred Organization [facility] Referred Address [address] [place], [place],[address] Referred Provider Specialty Wound Care Referral Priority Routine General Notes Mrs. Tavarez has chroni c venous insufficiency and suffered a contusion injury to her RLE, which resulted in a nonhealing ulceration. It was sutured by the ER but didn't result in wound closure. She is being referred for debridement and bandaging. She was empirically placed on Mupirocin and Cephalexin. [place] [facility] [employer] Other Reason for referral (narrative)No reason for referral information availableSalem City Hospital Work Phone: Reason for visit NarrativeReferral Dr. Conley [facility] Like[employer] Other reason for visit Narrative* Rehabilitation - Outpatient (Routine) - Authorized Specialty Diagnoses / Procedures Referred By Rachel espinoza Referred To Contact Physical Therapy Diagnoses Low back pain, unspecified Proximal Leg Pain Procedures FL PHYSICAL THERAPY EVALUATION LOW COMPLEX 20 MINS FL OFFICE/OUTPATIENT NEW HIGH MDM 60 MINUTES Robert Vail MD [address] [place] [address] Phone: tel: fax: [facility] [address] [facility] [address] [place] [address] Phone: tel: fax: Referral ID Status Reason Start Date Expiration Date V isits Requested Visits Authorized [id number] Authorized 01/11/2025 07/10/2025 20 20 [facility] HealthcareReason for visit Narrative* Rehabilitation - Outpatient (Routine) - Authorized Specialty Diagnoses / Procedures Referred By Rachel espinoza Referred To Contact Physical Therapy Diagnoses Low back pain, unspecified Proximal Leg Pain Procedures FL PHYSICAL THERAPY EVALUATION LOW COMPLEX 20 MINS FL OFFICE/OUTPATIENT NEW HIGH MDM 60 MINUTES Robert Vail MD [address] [place] [address] Phone: tel: fax: [facility] [address] [address] Phone: tel: fax: Referral ID Status Reason Start Date Expiration Date V isits Requested Visits Authorized [id number] Authorized 01/11/2025 11/27/2025 20 30 [facility] HealthcareReason for visit Narrative* Rehabilitation - Outpatient (Routine) - Authorized Specialty Diagnoses / Procedures Referred By Contac t Referred To Contact Physical Therapy Diagnoses Low back pain, unspecified Proximal Leg Pain Procedures FL PHYSICAL THERAPY EVALUATION LOW COMPLEX 20 MINS FL OFFICE/OUTPATIENT NEW HIGH MDM 60 MINUTES Robert Vail MD Phone: tel: fax: [facility] [address] [address] Phone: tel: fax: Referral ID Status Reason Start Date Expiration Date V isits Requested Visits Authorized [id number] Authorized 01/11/2025 11/27/2025 20 30 [facility] HealthcareReason for visit Narrative* Rehabilitation - Outpatient (Routine) - Authorized Specialty Diagnoses / Procedures Referred By Contac t Referred To Contact Physical Therapy Diagnoses Low back pain, unspecified Proximal Leg Pain Procedures FL PHYSICAL THERAPY EVALUATION LOW COMPLEX 20 MINS FL OFFICE/OUTPATIENT NEW HIGH MDM 60 MINUTES Robert Vail MD Phone: tel: fax: [facility] [address] [address] Phone: tel: fax: Referral ID Status Reason Start Date Expiration Date V isits Requested Visits Authorized [id number] Authorized 01/11/2025 11/27/2025 20 30 [facility] HealthcareReason for visit Narrative* Rehabilitation - Outpatient (Routine) - Authorized Specialty Diagnoses / Procedures Referred By Contac t Referred To Contact Physical Therapy Diagnoses Low back pain, unspecified Proximal Leg Pain Procedures FL PHYSICAL THERAPY EVALUATION LOW COMPLEX 20 MINS FL OFFICE/OUTPATIENT NEW HIGH MDM 60 MINUTES Robert Vail DO Phone: tel: fax: [facility] [address] [place] [address] [place] [address] Phone: tel: fax: Referral ID Status Reason Start Date Expiration Date V isits Requested Visits Authorized [id number] Authorized 01/11/2025 11/27/2025 20 30 [facility] HealthcareReason for visit Narrative* Rehabilitation - Outpatient (Routine) - Closed Specialty Diagnoses / Procedures Referred By Rachel espinoza Referred To Contact Physical Therapy Diagnoses Low back pain, unspecified Proximal Leg Pain Procedures FL PHYSICAL THERAPY EVALUATION LOW COMPLEX 20 MINS FL OFFICE/OUTPATIENT NEW HIGH MDM 60 MINUTES Robert Vail DO Phone: tel: fax: [facility] [address] [facility] [address] [place] [address] Phone: tel: fax: Referral ID Status Reason Start Date Expiration Date Visits Re quested Visits Authorized [id number] Closed 01/11/2025 11/27/2025 20 30 [facility] Healthcare Summary Purpose Family History Relationship Condition [...] No March 20 1:53pm [facility]charge Summary PERSON INFORMATION Name SANDRA TAVAREZ Age 79 Years 1940 Sex FEMALE Language Mongolian PCP Robert Vail Marital Status Med Service Med/Surg Acct# Arrival 05/23/2020 09:44:18 Visit Reason SURGERY - LEFT TOTAL KNEE Acuity LOS Address: [address] [place] [address] Comment: PROVIDER INFORMATION VITALS INFORMATION Vital Sign [...] claudication present (M48.061) Referral Organization [facility] urosurgery Referring Provider First Name Usama Referring Provider Last Name Eusebio Referring Provider Specialty Neurologica l Surgery Referred [facility] Pain Managemen t Referred Provider Michael Dunaway Referred Address [address],[address] Referred Provider Specialty Pain Medicin e Referral Priority Routine General Notes Pamela Lopez M 022 10:55:11 AM >Received today and sent [...] pain Ischial bursitis Lumbosacral spondylosis Chief Complaint [facility] INCREASED BUTTOCK PAIN Z79.01 M47.817 [...] Lumbosacral spondylosis Post laminectomy syndrome Chief Complaint [facility] INCREASED BUTTOCK PAIN Z79.01 M47.817 [...] November 1:39pm Laceration of leg excluding thigh Novuar y 2024 1:39pm Chief Complaint Admit Date 4 [...] November 1:39pm Laceration of leg excluding thigh Januar y 2024 1:39pm Cellulitis January 04, 2025 1 1:37am Lumbosacral spondylosis January 04 11:37am Superficial bruising of abdominal wall F ebruary 2024 11:37am Adverse reaction to anticoagulant 2024 11:37am Chronic pain January 16, 2025 12:55pm Encounter for monitoring Coumadin therap y January 16, 2025 12:55pm Lumbosacral spondylosis January 16, 12:55pm Post laminectomy syndrome January 16, 2025 [...] 16, 2025 12:55pm Lumbosacral spondylosis January 16, 025 12:55pm Post [...] 16, 2025 12:55pm Lumbosacral spondylosis January 16, 025 12:55pm Post [...] L3, L4, L5 March 28, 2025 10:14am [facility] Wellness - HIGH RISK April 09, 2025 [...] 10:24 am Generalized seizure disorder April 09, 025 10:24am Hypercholesteremia April 09, 2025 10:24 am Hypertension April 09, 2025 10:24 am Mammogram declined April 09, 2025 10:24 am KERMIT (obstructive sleep apnea) April 09, 2025 10:24am Thrombophilia April 09, 2025 10:24 am Type 2 diabetes mellitus with hyperglyce osmar April 09, 2025 10:24am Medicare annual wellness visit, subseque nt April 09, 2025 10:24am Chief Complaint Admit Date bilateral SI joint injection February 14, 2025 10:10am f/u after kristofer SI joint inj February 26 10:33am *coumadin*bilateral L3,4,5 lumbar facet MBB March 12, 2025 1:03pm f/u after kristofer lumbar MBB March 20 1:27pm Coumadin kristofer lumbar facet RFA L3, L4, L5 March 28, 2025 10:14am [facility] Wellness - HIGH RISK April 09, 2025 [...] L3, L4, L5 March 28, 2025 10:14am [facility] Wellness - HIGH RISK April 09, 2025 10:24am 2 week follow up after RFA April 15 1:48pm follow up after lumbar RFA May 06 11:46am right leg wound May 06, 2025 1:20p m Chief Complaint Admit Date f/u after kristofer lumbar MBB March 20 1:27pm Coumadin kristofer lumbar facet RFA L3, L4, L5 March 28, 2025 10:14am [facility] Wellness - HIGH RISK April 09, 2025 [...] L3, L4, L5 March 28, 2025 10:14am [facility] Wellness - HIGH RISK April 09, 2025 [...] 11:46 am Chronic venous insufficiency May 06 1:20pm Noninfected skin tear of right lower [...] Skin tear June 18, 2025 1:46 pm Chief Complaint Admit Date 10 day f/u May 16, 2025 11:3 9am right leg swelling/sore June 14, 2025 11:24am leg sore June 18, 2025 1:46 pm 4 month f/u August 12, 2025 10:31am Reason for Visit Admit Date Chronic venous insufficiency May 16, 2025 11:39am Noninfected skin tear of right lower ext remity May 16, 2025 11:39am Cellulitis June 14, 2025 11:2 4am Skin tear June 14, 2025 11:2 4am Cellulitis June 18, 2025 1:46 pm Chronic venous insufficiency June 18, 2025 1:46pm Skin tear June 18, 2025 1:46 pm Anemia August 12, 2025 10:31am Cellulitis August 12, 2025 10:31am Chronic venous insufficiency July 292024 10:31am Generalized seizure disorder July 292024 10:31am Hypercholesteremia August 12, 2025 10:31am Hypertension August 12, 2025 10:31am KERMIT (obstructive sleep apnea) August 12, 2025 10:31am Skin tear August 12, 2025 10:31am Thrombophilia August 12, 2025 10:31am Type 2 diabetes mellitus with hyperglyce osmar August 12, 2025 10:31am Additional Source Comments INFORMATION SOURCE (unrecogn ized section and content) DATE CREATED AUTHOR 08/15/2020 [facility] DATE CREATED AUTHOR AUTHOR'S ORGANIZ ATION 04/11/2023 [facility] DATE CREATED AUTHOR AUTHOR'S ORGANIZ ATION 01/08/2025 [facility] DATE CREATED AUTHOR AUTHOR'S ORGANIZ ATION 04/12/2025 [facility] DATE CREATED AUTHOR AUTHOR'S ORGANIZ ATION 05/12/2025 [facility] EPIC REASON FOR VISIT (unrecogniz ed section and content) Reason Onset Date Comments Cx PT 01/28/25 01/28/2025 3 month Follow upHEAD COLD, TIREDLab resultstemp [id number] results1 month Follow upTBHMedication Questionmessage4 month/suture removaldiscuss [...] Status: Active Member Role Status Dates Robert Vali DO Primary Care Provider Active Start: May [...] December 10, 2024 End: December 10, 2024 Manager Community Development Relationship Specialty Start Date End Date Robert Vail MD [address] [place] [address] PCP - General Internal Medicine 04/03/24 Manager Community Development Relationship Specialty Start Date End Date Robert Vail MD [address] [place] [phone] PCP - General Internal Medicine 04/03/24 Manager Community Development Relationship Specialty Start Date End Date Robert Vail MD [address] [facility] [place] [address] PCP - General Internal Medicine 04/03/24 Manager Community Development Relationship Specialty Start Date End Date Robert Vail MD [address] [facility] [place] [address] PCP - General Internal Medicine 04/03/24 Manager Community Development Relationship Specialty Start Date End Date Robert Vail MD [address] [facility] [place] [address] PCP - General Internal Medicine 04/03/24 Manager Community Development Relationship Specialty Start Date End Date Robert Vail MD [address] [facility] [place] [address] PCP - General Internal Medicine 04/03/24 Manager Community Development Relationship Specialty Start Date End Date Robert Vail MD [address] [facility] [place] [address] PCP - General Internal Medicine 04/03/24 Manager Community Development Relationship Specialty Start Date End Date Robert Vail MD [address] [facility] [place] [address] PCP - General Internal Medicine 04/03/24 Manager Community Development Relationship Specialty Start Date End Date Robert Vail MD [address] [facility] [place] [address] PCP - General Internal Medicine 04/03/24 Manager Community Development Relationship Specialty Start Date End Date Robert Vail MD PCP - General Internal Medicine 04/03/24 Manager Community Development Relationship Specialty Start Date End Date Robert Vail MD PCP - General Internal Medicine 04/03/24 Manager Community Development Relationship Specialty Start Date End Date Robert Vail MD PCP - General Internal Medicine 04/03/24 Manager Community Development Relationship Specialty Start Date End Date Robert Vail MD PCP - General Internal Medicine 04/03/24 Team Status: Inactive Member Role Status Dates Robert Vail DO Primary Care Provider Active Start: March 28, 2025 End: March 28, 2025 Michael Dunaway MD Attending Provider Active Sta rt: March 28, 2025 End: March 28, 2025 Manager Community Development Relationship Specialty Start Date End Date Robert Vail DO PCP - General Internal Medicine 04/03/24 Manager Community Development Relationship Specialty Start Date End Date Robert Vail DO PCP - General Internal Medicine 04/03/24 Manager Community Development Relationship Specialty Start Date End Date Robert Vail DO PCP - General Internal Medicine 04/03/24 Manager Community Development Relationship Specialty Start Date End Date Robert Vail DO PCP - General Internal Medicine 04/03/24 Manager Community Development Relationship Specialty Start Date End Date Robert Vail DO PCP - General Internal Medicine 04/03/24 Team Status: Inactive Member Role Status Dates Robert Vail DO Primary Care Provide r, Attending Provider Active Start: April 09, 2025 End: April 09, 2025 Manager Community Development Relationship Specialty Start Date End Date Robert Vail DO PCP - General Internal Medicine 04/03/24 Manager Community Development Relationship Specialty Start Date End Date Robert Vail DO PCP - General Internal Medicine 04/03/24 Manager Community Development Relationship Specialty Start Date End Date Robert Vail DO PCP - General Internal Medicine 04/03/24 Manager Community Development Relationship Specialty Start Date End Date Robert Vail DO PCP - General Internal Medicine 04/03/24 Manager Community Development Relationship Specialty Start Date End Date Robert Vail DO PCP - General Internal Medicine 04/03/24 Manager Community Development Relationship Specialty Start Date End Date Robert [...] 2025 End: April 09, 2025 Robert Vail , DO Attending Provider Active Sta rt: April 09, 2025 End: April 09, 2025 Team Status: Active Member Role Status Dates Robert Vail , DO Primary Care Provider Active Start: April 18, 2025 Robert Vail , DO Attending Provider Active Sta rt: April 18, 2025 Team Status: Inactive Member Role Status Dates Robert Vail , Primary Care Provider Active Start: May 06, 2025 End: May 06, 2025 Robert Vail , DO Attending Provider Active Sta rt: May 06, 2025 End: May 06, 2025 Team Status: Inactive Member Role Status Dates Robert Vail , DO Primary Care Provider Active Start: May 16, 2025 End: May 16, 2025 Robert Vail , DO Attending Provider Active Sta rt: May 16, 2025 End: May 16, 2025 Team Status: Inactive Member Role Status Dates Robert Vail , DO Primary Care Provider Active Start: June 14, 2025 End: June 14, 2025 WILLY Celaya Attending Provider Act monster Start: June 14, 2025 End: June 14, 2025 Team Status: Inactive Member Role Status Dates Robert Vail , Primary Care Provider Active Start: June 18, 2025 End: June 18, 2025 Robert Vail , DO Attending Provider Active Sta rt: June 18, 2025 End: June 18, 2025 Team Status: Inactive Member Role Status Dates Robert Vail , Primary Care Provider Active Start: August 12, 2025 End: August 12, 2025 Robert Vail , DO Attending Provider Active Sta rt: August 12, 2025 End: August 12, 2025 Goals (unrecognized section and content) Goals [...] BE BASED ON THE PRIMARY CLINICAL RECORDS. [facility] [employer] [facility]. provides no warranty or guarantee of the accuracy or completeness of information in this document.
== END 2025-08-14 10:12 | disposition home or self-care (01) ==
LOC: WC 10:11
PROVIDERS: PCP Internal Medicine; Visit Provider Physician Assistant
DX: I87.311 Chronic venous hypertension (idiopathic) with ulcer of right lower extremity (principal); L97.812 Non-pressure chronic ulcer of other part of right lower leg with fat layer exposed
CPT/HCPCS: 29581

== ENCOUNTER 2025-08-28 04:15 | Outpatient (RCR) | payer MEDICARE, OTHER, SELFPAY | END 2025-09-27 23:59 | disposition home or self-care (01) | LOC: MM 04:15 | PROVIDERS: PCP Internal Medicine; Visit Provider Internal Medicine | DX: Z51.81 Encounter for therapeutic drug level monitoring (principal); Z79.01 Long term (current) use of anticoagulants | CPT/HCPCS: 85610; G0463 ==

== ENCOUNTER 2025-09-04 09:53 | Outpatient (OUT) | payer MEDICARE, OTHER, SELFPAY ==
--- OUTSIDE RECORDS SUMMARY | 2025-09-04 10:10 | XMS_ITS | CCD ---
Author Organization [facility] Care Team Providers Care Public Health Nutritionist Name Role Phone ROBERT VAIL Primary Care Physician Quita Simmons Unavailable Usama Batista Unavailable Michael Dunaway Unavailable Maico Lloyd Unavailable DO Robert Vail Primary Care Provider [phone] DO Maico Lloyd Attending Provider MD Michael Dunaway Attending Provider [phone] Kaitlynn Foy Unavailable Ursula Velarde Unavailable Robert [...] Unavailable Genna, DO Jones Primary Care Provider [phone] MD Juancarlos Campbell Attending Provider DO Robert [...] Provider Robert Vail DO Primary Care Provider [phone] Michael Dunaway MD Attending Provider Robert Vail [...] Care Provider Michael Dunaway MD Attending Provider [phone] Robert Vail DO Attending Provider [phone] Morena Donato APRN Attending Provider Robert Vail DO Primary Care Provider [phone] Robert Vail DO Attending Provider [phone] Allergies Allergy Classification Reported Allergen(s) Allergy Type Date of Onset Reaction(s) Facility NSAIDs (1 source) celecoxib Drug Allergy 05-28-20 [facility] Penicillins (antibiotic) (1 source) Penicillins Drug Allergy 05-28-20 [facility] Serotonin Reuptake Inhibitors (SSRIs) (1 source) Citalopram Drug Allergy 05-28-20 [facility] (2 sources) Adhesive Tape; Translations: [Tape] Drug allergy rash [facility] [place] (20 sources) celecoxib; Translations: [celecoxib] Drug Allergy 05-05-20 22 rash, Hives, Unknown [facility] (1 source) Penicillins; Translations: [penicillins] Drug allergy groggy [facility] Comment on above: Pt. states PCN does n't work for me, it just doesn't work (20 sources) Penicillin G Drug Allergy rash [facility] [employer] Other (20 sources) Penicillins; Translations: [Penicillins] Allergy to substance 12-04-19 14 Rash, Itching, Swelling [facility] (2 sources) celecoxib Drug Allergy 12-04-19 14 [facility] (1 source) Citalopram Drug Allergy [facility] (1 source) Desonide Drug Allergy [facility] (20 sources) Citalopram Drug Allergy 12-27-19 24 Unknown, [facility] (18 sources) Penicillin Drug Allergy 08-17-20 13 Unknown [facility] Other (1 source) Substance with penicillin structure and antibacterial mechanism of action (substance) Drug allergy Unknown [facility] [employer] Other (1 source) patient allergy list reviewed by nurse or physicia Propensity to adverse reactions 09-19-20 14 Comment:Done [employer] [facility] [employer] Other (1 source) celecoxib Drug Allergy 01-04-20 25 [facility] (1 source) Citalopram Drug Allergy 01-04-20 25 [facility] (20 sources) celecoxib Drug Allergy 01-16-20 [...] Start: 03-03-2022 take [address] [facility] once daily Ferrex-150 oral capsule 150 mg = 1 cap(s), Oral, Daily, Refills(s) 0 Start Date: 03/03/22 Status: Ordered take 1 capsule by [facility] every other day IFerex 150 150 MG 1 capsule Orally qod for 30 days Active take 1 capsule by [facility] once daily IFerex 150 150 MG take 1 capsule by mouth once daily for 30 Not-Taking take 1 capsule by [facility] once daily IFerex 150 150 MG [...] 6:05pm Start: 03-27-2015 take 1 tablet by [facility] once daily potassium chloride 10 [...] twice daily for 14 days Aug, Active [id number] 200 actuat albuterol 0.09 mg/actuat metered dose [...] 3:05pm Start: 11-10-2023 take 1 capsule by [facility] every eight hours Benzonatate 100 MG 1 capsule as needed Orally Three times a day for 10 days Oct, Active Start: 03-10-2023 take 1 capsule by [facility] every eight hours Benzonatate 200 MG 1 capsule Orally Three times a day for 10 13 Feb, 2023 Active Start: 09-11-2022 take [address] [facility] every eight hours Tessalon Perles 100 MG 1 capsule as needed Orally Three times a day for 7 days Aug, Active cephalexin 500 mg oral capsule (19 sources) Cephalosporin Antibacterial Start: 07-11-2023 take 1 capsule by mouth twice daily as needed Cephalexin 500 MG 1 capsule Orally twice daily for 14 days Jun, Not-Taking/PRN Start: 09-27-2016 take [address] 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] Onset: 2 Episodic Other aftercare (20 sources) intermediate (current) use of anticoagulants; Translations: [Long-term (current) use of anticoagulants] Onset: 2 Resolved: 2 Episodic Other aftercare (1 source) Long-term current use of drug therapy; Translations: [Other intermediate frame tender (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 therapy] Episodic Other aftercare (20 [...] Basophils (Bld) [#/Vol] Automated basophil count 0.0-0.1 [facility] Basophils (Bld) [#/Vol] 0.0 10 3/uL 0.0-0.1 [facility] Basophils/100 WBC Auto (Bld) on 04-18-2025 Basophils/100 WBC (Bld) Automated basophil % 0.2-2.0 [facility] Basophils/100 WBC (Bld) 0.6 % 0.2-2.0 [facility] Cholesterol in LDL Calc [Mas s/Vol]on 04-18-2025 Cholesterol in LDL [Mass/Vol] Cholesterol in LDL [Mass/volume] in Serum or Plasma by calculation [facility] Comment on above: <100 mg/dl [id number] 0-129 mg/dl NEAR OR ABOVE [id number] mg/dl BORDERLINE [id number] mg/dl HIGH>190 mg/dl VERY HIGH Cholesterol in LDL [Mass/Vol] 52.0 mg/dL [facility] Comment on above: <100 mg/dl [id number] 0-129 mg/dl NEAR OR ABOVE [id number] mg/dl BORDERLINE [id number] mg/dl HIGH>190 mg/dl VERY HIGH Cholesterol in VLDL Calc [Ma ss/Vol]on 04-18-2025 Cholesterol in VLDL [Mass/Vol] Cholesterol in VLDL [Mass/volume] in Serum or Plasma by calculation [facility] Cholesterol in VLDL [Mass/Vol] 10.0 mg/dL [facility] Eosinophils/100 WBC Auto (Bl d)on 04-18-2025 Eosinophils/100 WBC (Bld) Automated eosinophil % 0.9-7.0 [facility] Eosinophils/100 WBC (Bld) 1.3 % 0.9-7.0 [facility] Erythrocyte distribution wid th Auto (RBC) [Ratio]on 04-18-2025 Erythrocyte distribution width (RBC) [Ratio] Erythrocyte distribution width [Ratio] by Automated count 11.0-15.0 [facility] Erythrocyte distribution width (RBC) [Ratio] 14.6 % 11.0-15.0 [facility] Estimated glomerular filtrat ion rate (GFR) non- Americanon 04-18-2025 GFR/1.73 sq M.predicted among non-blacks MDRD (S/P/Bld) [Vol rate/Area] Estimated glomerular filtration rate (GFR) non- >=60 mL/min/1.7 3m 2 [facility] GFR/1.73 sq M.predicted among non-blacks MDRD (S/P/Bld) [Vol rate/Area] mL/min/{1.73_m2} >=60 mL/min/1.7 3m 2 [facility] Globulin Calc (S) [Mass/Vol] on 04-18-2025 Globulin (S) [Mass/Vol] Serum globulin measurement by calculation (mass/volume) [facility] Globulin (S) [Mass/Vol] 3.5 g/dL [facility] Glucose mean value [Mass/vol ume] in Blood Estimated from glycated hemoglobinon 04-18-2025 Average glucose Estimated from glycated hemoglobin (Bld) [Mass/Vol] Glucose mean value [Mass/volume] in Blood Estimated from glycated hemoglobin [facility] Average glucose Estimated from glycated hemoglobin (Bld) [Mass/Vol] 154 mg/dL [facility] Hematocrit Auto (Bld) [Volum e fraction]on 04-18-2025 Hematocrit (Bld) [Volume fraction] Hematocrit [Volume Fraction] of Blood by Automated count 36.0-48.0 [facility] Hematocrit (Bld) [Volume fraction] 41.2 % 36.0-48.0 [facility] Hemoglobin A1c percentageon 04-18-2025 HbA1c (Bld) [Mass fraction] Hemoglobin A1c percentage High 4.5-6.2 [facility] Comment on above: ADA RECOMMENDED LIMI T 4.0 - 6.0ADA THERAPEUTIC TARGET < 7.0ACTION SUGGESTED> 7.0 HbA1c (Bld) [Mass fraction] 7.0 % High 4.5-6.2 [facility] Comment on above: ADA RECOMMENDED LIMI T 4.0 - 6.0ADA THERAPEUTIC TARGET < 7.0ACTION SUGGESTED> 7.0 Hemoglobin [Mass/volume] in Bloodon 04-18-2025 Hemoglobin (Bld) [Mass/Vol] Hemoglobin [Mass/volume] in Blood 12.0-16.0 [facility] Hemoglobin (Bld) [Mass/Vol] 13.3 g/dL 12.0-16.0 [facility] Laboratory - Chemistry and C hemistry - challengeon 04-18-2025 Albumin [Mass/Vol] 3.5 g/dL 3.4-5.0 [facility] ALP [Catalytic activity/Vol] 103 U/L 46-116 [facility] ALT [Catalytic activity/Vol] 25 U/L 14-59 [facility] AST [Catalytic activity/Vol] 16 U/L 15-37 [facility] Bilirubin [Mass/Vol] 0.9 mg/dL 0.2-1.0 [facility] Calcium [Mass/Vol] 9.6 mg/dL 8.5-10.1 [facility] Chloride [Moles/Vol] 103 mmol/L 98-107 [facility] Cholesterol [Mass/Vol] 140 mg/dL <=200 [facility] Cholesterol in HDL [Mass/Vol] 78 mg/dL High 40-60 [facility] Comment on above: > or =60 mg/dl - LOW CARDIOVASCULAR RISK<40 mg/dl - HIGH CARDIOVASCULAR RISK CO2 [Moles/Vol] 30.8 mmol/L 21.0-32.0 [facility] Creatinine [Mass/Vol] 0.80 mg/dL 0.55-1.02 [facility] GFR/1.73 sq M.predicted MDRD (S/P/Bld) [Vol rate/Area] mL/min/{1.73_m2} >=60 mL/min/1.7 3m 2 [facility] Glucose [Mass/Vol] 123 mg/dL High 74-106 [facility] Potassium [Moles/Vol] 4.3 mmol/L 3.5-5.1 [facility] Protein [Mass/Vol] 7.0 g/dL 6.4-8.2 [facility] Sodium [Moles/Vol] 142 mmol/L 136-145 [facility] Triglyceride [Mass/Vol] 50 mg/dL <=150 [facility] TSH Qn 0.678 m[IU]/L 0.358-3.74 0 [facility] Urea nitrogen [Mass/Vol] 16.0 mg/dL 7.0-18.0 [facility] Urea nitrogen/Creatinin e [Mass ratio] 20.0 mg/mg [facility] Laboratory - Hematology and Cell countson 04-18-2025 Immature granulocytes/100 WBC (Bld) 0.6 % High 0.0-0.5 [facility] Leukocytes [#/volume] correc torri for nucleated erythrocytes in Blood by Automated counon 04-18-2025 WBC corrected for nucl RBC Auto (Bld) [#/Vol] Leukocytes [#/volume] corrected for nucleated erythrocytes in Blood by Automated coun 4.0-11.0 [facility] WBC corrected for nucl RBC Auto (Bld) [#/Vol] 5.4 10 3/uL 4.0-11.0 [facility] Lymphocytes Auto (Bld) [#/Vo l]on 04-18-2025 Lymphocytes (Bld) [#/Vol] Lymphocytes [#/volume] in Blood by Automated count Low 1.2-3.8 [facility] Lymphocytes (Bld) [#/Vol] 0.7 10 3/uL Low 1.2-3.8 [facility] Lymphocytes/100 WBC Auto (Bl d)on 04-18-2025 Lymphocytes/100 WBC (Bld) Lymphocytes/100 leukocytes in Blood by Automated count Low 20.5-60.0 [facility] Lymphocytes/100 WBC (Bld) 13.5 % Low 20.5-60.0 [facility] MCH Auto (RBC) [Entitic mass ]on 04-18-2025 MCH (RBC) [Entitic mass] MCH [Entitic mass] by Automated count 26.7-34.0 [facility] MCH (RBC) [Entitic mass] 29.2 pg 26.7-34.0 [facility] MCHC Auto (RBC) [Mass/Vol]on 04-18-2025 MCHC (RBC) [Mass/Vol] MCHC [Mass/volume] by Automated count 29.9-35.2 [facility] MCHC (RBC) [Mass/Vol] 32.3 g/dL 29.9-35.2 [facility] MCV Auto (RBC) [Entitic vol] on 04-18-2025 MCV (RBC) [Entitic vol] MCV [Entitic volume] by Automated count 81.0-99.0 [facility] MCV (RBC) [Entitic vol] 90.5 fL 81.0-99.0 [facility] Microalbumin [Mass/volume] i n Urineon 04-18-2025 Albumin DL <= 20 mg/L (U) [Mass/Vol] Microalbumin [Mass/volume] in Urine <=30.0 [facility] Albumin DL <= 20 mg/L (U) [Mass/Vol] 2.2 mg/dL <=30.0 [facility] Monocytes Auto (Bld) [#/Vol] on 04-18-2025 Monocytes (Bld) [#/Vol] Automated blood monocyte count 0.3-0.8 [facility] Monocytes (Bld) [#/Vol] 0.5 10 3/uL 0.3-0.8 [facility] Monocytes/100 WBC Auto (Bld) on 04-18-2025 Monocytes/100 WBC (Bld) Automated monocyte % 1.7-12.0 [facility] Monocytes/100 WBC (Bld) 8.3 % 1.7-12.0 [facility] Neutrophils Auto (Bld) [#/Vo l]on 04-18-2025 Neutrophils (Bld) [#/Vol] Neutrophils [#/volume] in Blood by Automated count 1.4-6.5 [facility] Neutrophils (Bld) [#/Vol] 4.1 10 3/uL 1.4-6.5 [facility] Neutrophils/100 WBC Auto (Bl d)on 04-18-2025 Neutrophils/100 WBC (Bld) Automated neutrophil % High 43.0-75.0 [facility] Neutrophils/100 WBC (Bld) 75.7 % High 43.0-75.0 [facility] No Panel Informationon 04-18 Urine Random Creatinine 49.06 mg/dL 20.00-300. 00 [facility] Eosinophils # (Auto) 0.1 10 3/uL 0.0-0.7 [facility] Immature Granulocyte # (Auto) 0.03 10 3/uL 0.00-0.03 [facility] Platelet mean volume Auto (B ld) [Entitic vol]on 04-18-2025 Platelet mean volume (Bld) [Entitic vol] Platelet mean volume [Entitic volume] in Blood by Automated count 9.5-13.5 [facility] Platelet mean volume (Bld) [Entitic vol] 10.2 fL 9.5-13.5 [facility] Platelets Auto (Bld) [#/Vol] on 04-18-2025 Platelets (Bld) [#/Vol] Platelets [#/volume] in Blood by Automated count 150-450 [facility] Platelets (Bld) [#/Vol] 194 10 3/uL 150-450 [facility] RBC Auto (Bld) [#/Vol]on RBC (Bld) [#/Vol] Erythrocytes [#/volu me] in Blood by Automated count 4.20-5.40 [facility] RBC (Bld) [#/Vol] 4.55 10 6/uL 4.20-5.40 [facility] Serum or plasma albumin/glob ulin mass ratioon 04-18-2025 Albumin/Globulin [Mass ratio] Serum or plasma albumin/globulin mass ratio [facility] Albumin/Globulin [Mass ratio] 1.0 {ratio} [facility] Serum or plasma anion gap de terminationon 04-18-2025 Anion gap [Moles/Vol] Serum or plasma anion gap determination [facility] Anion gap [Moles/Vol] 12.5 mmol/L [facility] Serum or plasma total choles terol/high density lipoprotein (HDL) cholesterol mass stephane 04-18-2025 Cholesterol.total/ Cholesterol in HDL [Mass ratio] Serum or plasma total cholesterol/high density lipoprotein (HDL) cholesterol mass rat [facility] Comment on above: 3.3 - 4.4 LOW RISK4. 4 - 7.1 AVERAGE RISK7.1 - 11.0 MODERATE RISK>11.0 HIGH RISK Cholesterol.total/ Cholesterol in HDL [Mass ratio] 1.8 {ratio} [facility] Comment on above: 3.3 - 4.4 LOW RISK4. 4 - 7.1 AVERAGE RISK7.1 - 11.0 MODERATE RISK>11.0 HIGH RISK Urine microalbumin/creatinin e mass ratioon 04-18-2025 Albumin/Creatinine DL <= 20 mg/L (U) [Mass ratio] Urine microalbumin/creatinine mass ratio High 0.0-29.9 [facility] Comment on above: NO MICROALBUMINURIA 0-29 MG/GCLINICAL MICROALBUMINURIA 30-300 MG/GMACROALBUMINURIA >300 MG/G Albumin/Creatinine DL <= 20 mg/L (U) [Mass ratio] 44.8 mg/g High 0.0-29.9 [facility] Comment on above: NO MICROALBUMINURIA 0-29 MG/GCLINICAL [...] mm Hg [id number] 2. 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 Redundant colon [...] ago Toba (more content not included)... Normal [facility] Comment on above: Result Comment: Elec [...] you for choosing us for your care. [facility] Ambulatory Visit Summaryon 0 02-26-2025 Ambulatory Visit [...] for choosing us for your care. Normal [facility] INR in Platelet poor plasma by Coagulation assayOrdered By: Michael Dunaway on 12-26-2024 INR Coag (PPP) [Relative time] INR in Platelet poor plasma by Coagulation assay [facility] Comment on above: INR Therapeutic Rang e [...] (Bld) [Time] 29.0 s Normal 25.1-36.5 [facility] Comment on above: Result Comment: A he matocrit value greater than 55% may lead to inaccurate results in coagulation testing. Patients having hematocrit values >55% require a special collection tube for coagulation studies. Please contact the laboratory at [phone] for redraw instructions. PERFORMED BY: [place] [address] PATHOLOGIST [employer]ATING [employer] ESDRAS MOREL M.D. Performed By: #### P T, PTT #### [facility] [address] [place] [address] Prothrombin Time INRon 12-26 INR Coag (PPP) [Relative time] 1.1 {INR} Normal [facility] Comment on above: Result Comment: [...] Performed By: #### P T, PTT #### [facility] [address] [place] [address] PT Coag (PPP) [Time] 13.1 s High 9.0-12.9 [facility] Comment on above: Result Comment: A he matocrit value greater than 55% may lead to inaccurate results in coagulation testing. Patients having hematocrit values >55% require a special collection tube for coagulation studies. Please contact the laboratory at [phone] for redraw instructions. Performed By: #### P T, PTT #### [facility] [address] Prothrombin time (PT)Ordered By: Michael Dunaway on 12-26-2024 PT Coag (PPP) [Time] Prothrombin time (PT) High 9.0-12.9 [facility] Comment on above: A hematocrit value g reater than 55% may lead to inaccurate results in coagulation testing. Patients having hematocrit values >55% require a special collection tube for coagulation studies. Please contact the laboratory at [phone] for redraw instructions. aPTT in Platelet poor plasma by Coagulation assayOrdered By: Michael Dunaway on 12-26-2024 aPTT Coag (PPP) [Time] Activated partial thromboplastin time (aPTT) in platelet poor plasma by coagulation a 25.1-36.5 [facility] Comment on above: A hematocrit value g reater than 55% may lead to inaccurate results in coagulation testing. Patients having hematocrit values >55% require a special collection tube for coagulation studies. Please contact the laboratory at [phone] for redraw instructions. INR in Platelet poor plasma by Coagulation assayOrdered By: Michael Dunaway on 12-24-2024 INR Coag (PPP) [Relative time] INR in Platelet poor plasma by Coagulation assay [facility] Comment on above: INR Therapeutic Rang e [...] (PPP) [Relative time] 1.6 {INR} Normal [facility] Comment on above: Result Comment: [...] heart valves: 3 - 4.5 PERFORMED BY: [place] [address] PATHOLOGIST [employer]ATING [employer] ESDRAS MOREL M.D. Performed By: #### P T #### [place] [id number] [facility] PT Coag (PPP) [Time] 18.8 s High 9.0-12.9 [facility] Comment on above: Result Comment: A he matocrit value greater than 55% may lead to inaccurate results in coagulation testing. Patients having hematocrit values >55% require a special collection tube for coagulation studies. Please contact the laboratory at [phone] for redraw instructions. Performed By: #### P T #### [place] [id number] [facility] Prothrombin time (PT)Ordered By: Michael Dunaway on 12-24-2024 PT Coag (PPP) [Time] Prothrombin time (PT) High 9.0-12.9 [facility] Comment on above: A hematocrit value g reater than 55% may lead to inaccurate results in coagulation testing. Patients having hematocrit values >55% require a special collection tube for coagulation studies. Please contact the laboratory at [phone] for redraw instructions. Basophils Auto (Bld) [#/Vol] on 12-12-2024 Basophils (Bld) [#/Vol] Automated basophil count 0.0-0.1 [facility] Basophils/100 WBC Auto (Bld) on 12-12-2024 Basophils/100 WBC (Bld) Automated basophil % 0.2-2.0 [facility] Eosinophils/100 WBC Auto (Bl d)on 12-12-2024 Eosinophils/100 WBC (Bld) Automated eosinophil % 0.9-7.0 [facility] Erythrocyte distribution wid th Auto (RBC) [Ratio]on 12-12-2024 Erythrocyte distribution width (RBC) [Ratio] Erythrocyte distribution width [Ratio] by Automated count 11.0-15.0 [facility] Glucose mean value [Mass/vol ume] in Blood Estimated from glycated hemoglobinon 12-12-2024 Average glucose Estimated from glycated hemoglobin (Bld) [Mass/Vol] Glucose mean value [Mass/volume] in Blood Estimated from glycated hemoglobin [facility] Hematocrit Auto (Bld) [Volum e fraction]on 12-12-2024 Hematocrit (Bld) [Volume fraction] Hematocrit [Volume Fraction] of Blood by Automated count 36.0-48.0 [facility] Hemoglobin [Mass/volume] in Bloodon 12-12-2024 Hemoglobin (Bld) [Mass/Vol] Hemoglobin [Mass/volume] in Blood 12.0-16.0 [facility] Laboratory - Chemistry and C hemistry - challengeon 12-12-2024 Ferritin [Mass/Vol] 39.0 ng/mL 8.0-252.0 [facility] Laboratory - Hematology and Cell countson 12-12-2024 HbA1c (Bld) [Mass fraction] 6.5 % High 4.5-6.2 [facility] Comment on above: ADA RECOMMENDED LIMI T 4.0 - 6.0ADA THERAPEUTIC TARGET < 7.0ACTION SUGGESTED> 7.0 Immature granulocytes/100 WBC (Bld) 0.4 % 0.0-0.5 [facility] Leukocytes [#/volume] correc torri for nucleated erythrocytes in Blood by Automated counon 12-12-2024 WBC corrected for nucl RBC Auto (Bld) [#/Vol] Leukocytes [#/volume] corrected for nucleated erythrocytes in Blood by Automated coun 4.0-11.0 [facility] Lymphocytes Auto (Bld) [#/Vo l]on 12-12-2024 Lymphocytes (Bld) [#/Vol] Lymphocytes [#/volume] in Blood by Automated count Low 1.2-3.8 [facility] Lymphocytes/100 WBC Auto (Bl d)on 12-12-2024 Lymphocytes/100 WBC (Bld) Lymphocytes/100 leukocytes in Blood by Automated count Low 20.5-60.0 [facility] MCH Auto (RBC) [Entitic mass ]on 12-12-2024 MCH (RBC) [Entitic mass] MCH [Entitic mass] by Automated count 26.7-34.0 [facility] MCHC Auto (RBC) [Mass/Vol]on 12-12-2024 MCHC (RBC) [Mass/Vol] MCHC [Mass/volume] by Automated count 29.9-35.2 [facility] MCV Auto (RBC) [Entitic vol] on 12-12-2024 MCV (RBC) [Entitic vol] MCV [Entitic volume] by Automated count 81.0-99.0 [facility] Monocytes Auto (Bld) [#/Vol] on 12-12-2024 Monocytes (Bld) [#/Vol] Automated blood monocyte count 0.3-0.8 [facility] Monocytes/100 WBC Auto (Bld) on 12-12-2024 Monocytes/100 WBC (Bld) Automated monocyte % 1.7-12.0 [facility] Neutrophils Auto (Bld) [#/Vo l]on 12-12-2024 Neutrophils (Bld) [#/Vol] Neutrophils [#/volume] in Blood by Automated count 1.4-6.5 [facility] Neutrophils/100 WBC Auto (Bl d)on 12-12-2024 Neutrophils/100 WBC (Bld) Automated neutrophil % High 43.0-75.0 [facility] No Panel Informationon 12-12 Eosinophils # (Auto) 0.1 10 3/uL 0.0-0.7 [facility] Immature Granulocyte # (Auto) 0.02 10 3/uL 0.00-0.03 [facility] Platelet mean volume Auto (B ld) [Entitic vol]on 12-12-2024 Platelet mean volume (Bld) [Entitic vol] Platelet mean volume [Entitic volume] in Blood by Automated count 9.5-13.5 [facility] Platelets Auto (Bld) [#/Vol] on 12-12-2024 Platelets (Bld) [#/Vol] Platelets [#/volume] in Blood by Automated count 150-450 [facility] RBC Auto (Bld) [#/Vol]on RBC (Bld) [#/Vol] Erythrocytes [#/volu me] in Blood by Automated count 4.20-5.40 [facility] [facility] INR in Platelet poor plasma by Coagulation assayOrdered By: Michael Dunaway on 08-10-2024 INR Coag (PPP) [Relative time] 1.3 {INR} Normal [facility] Comment on above: INR Therapeutic Rang e [...] heart valves: 3 - 4.5 PERFORMED BY: [place] [address] PATHOLOGIST [employer] HERMELINDO BLUM M.D. Performed By: #### P T #### [facility] [address] [place] [address] Prothrombin time (PT)Ordered By: Michael Dunaway on 08-10-2024 PT Coag (PPP) [Time] 15.1 s High 9.0-12.9 [facility] Comment on above: A hematocrit value g reater than 55% may lead to inaccurate results in coagulation testing. Patients having hematocrit values >55% require a special collection tube for coagulation studies. Please contact the laboratory at [phone] for redraw instructions. Result Comment: A he matocrit value greater than 55% may lead to inaccurate results in coagulation testing. Patients having hematocrit values >55% require a special collection tube for coagulation studies. Please contact the laboratory at [phone] for redraw instructions. Performed By: #### P T #### [facility] [address] [place] [id number] INR in Platelet poor plasma by Coagulation assayOrdered By: Michael Dunaway on 08-09-2024 INR Coag (PPP) [Relative time] 1.7 {INR} Normal [facility] Comment on above: INR Therapeutic Rang e [...] heart valves: 3 - 4.5 PERFORMED BY: [place] [address] PATHOLOGIST [employer] HERMELINDO BLUM M.D. Performed By: #### P T #### [facility] [address] [place] [address] Prothrombin time (PT)Ordered By: Michael Dunaway on 08-09-2024 PT Coag (PPP) [Time] 19.0 s High 9.0-12.9 [facility] Comment on above: A hematocrit value g reater than 55% may lead to inaccurate results in coagulation testing. Patients having hematocrit values >55% require a special collection tube for coagulation studies. Please contact the laboratory at [phone] for redraw instructions. Result Comment: A he matocrit value greater than 55% may lead to inaccurate results in coagulation testing. Patients having hematocrit values >55% require a special collection tube for coagulation studies. Please contact the laboratory at [phone] for redraw instructions. Performed By: #### P T #### [facility] [address] [place] [id number] [facility] MR lumbar spine wo conon MR lumbar spine wo con [facility] [place] [address] [place] [address] MRI Report Signed Patient: Sandra Tavarez MR#: [id number] 7 : 1940 Acct:[id number] Age/Sex: 83 / F ADM Date: 06/15/24 Loc: MR Room: Type: [facility] Attending Dr: Michael Dunaway MD [...] Tex Diaz M.D.06/15/2024 8:35 PM Dictation Location: [place] [address] Transcribed By: [facility] 06/15/242034 Dictated By: Tex Diaz II, MD 06/15/242025 Signed By: 06/15/242034 Normal [facility] INR in Platelet poor plasma by Coagulation assayon 05-16-2024 INR Coag (PPP) [Relative time] 1.36 {INR} [facility] Comment on above: DESIRED INR:2.0-3.0 CONDITIONS NOT LISTED BELOW2.5-3.5 FOR PROSTHETIC HEART VALVE REPLACEMENT2.5-3.5 RECURRENT THROMBOSIS Prothrombin time (PT)on 04-28 PT Coag (PPP) [Time] 14.0 s High 9.0-11.6 [facility] XR pelvis 1-2Von 05-09-2024 XR pelvis 1-2V [facility] [place] [place] [address] XRay Report Signed Patient: Sandra Tavarez MR#: [id number] 7 : 1940 Acct:[id number] Age/Sex: 83 / F ADM Date: 05/07/24 Loc: XD Room: Type: PRE CLI Attending Dr: Michael Dunaway MD Copies to: Michael Dunaway MD Ordering Provider: Michael Dunaway MD Date of Service: 05/09/24 XR/XR pelvis 1-2V: M70.70 - Other bursitis of hip, unspecified hip ([id number]) XR/XR lumbar spine AP/LAT/FLX/EXT: M47.817 - Spondylosis without myelopathy or radiculopathy... ([id number]) XR/XR sacrum coccyx min 2V: M47.818 - [...] Orozco Jr., D.OKen05/09/2024 3:59 PM Dictation Location: [place] [address] Transcribed By: [facility] 05/09/24 1559 Dictated By: Jaspreet Orozco Jr, DO 05/09/24 1556 Signed By: 05/09/24 1559 [facility] INR in Platelet poor plasma by Coagulation assayOrdered By: Michael Dunaway on 05-07-2024 INR Coag (PPP) [Relative time] 2.0 {INR} Normal [facility] Comment on above: INR Therapeutic Rang e [...] heart valves: 3 - 4.5 PERFORMED BY: [place] [address] PATHOLOGIST [employer] HERMELINDO BLUM M.D. Performed By: #### P T #### [facility] [address] [place] [address] Prothrombin time (PT)Ordered By: Michael Dunaway on 05-07-2024 PT Coag (PPP) [Time] 22.3 s High 9.0-12.9 [facility] Comment on above: A hematocrit value g reater than 55% may lead to inaccurate results in coagulation testing. Patients having hematocrit values >55% require a special collection tube for coagulation studies. Please contact the laboratory at [phone] for redraw instructions. Result Comment: A he matocrit value greater than 55% may lead to inaccurate results in coagulation testing. Patients having hematocrit values >55% require a special collection tube for coagulation studies. Please contact the laboratory at [phone] for redraw instructions. Performed By: #### P T #### [facility] [address] [place] [address] Basophils Auto (Bld) [#/Vol] on 04-30-2024 Basophils (Bld) [#/Vol] 0.0 10 3/uL 0.0-0.1 [facility] Basophils/100 WBC Auto (Bld) on 04-30-2024 Basophils/100 WBC (Bld) 0.7 % 0.2-2.0 [facility] Cholesterol in LDL Calc [Mas s/Vol]on 04-30-2024 Cholesterol in LDL [Mass/Vol] 43.0 mg/dL [facility] Comment on above: <100 mg/dl [id number] 0-129 mg/dl NEAR OR ABOVE [id number] mg/dl BORDERLINE [id number] mg/dl HIGH>190 mg/dl VERY HIGH Cholesterol in VLDL Calc [Ma ss/Vol]on 04-30-2024 Cholesterol in VLDL [Mass/Vol] 10.6 mg/dL [facility] Eosinophils/100 WBC Auto (Bl d)on 04-30-2024 Eosinophils/100 WBC (Bld) 1.9 % 0.9-7.0 [facility] Erythrocyte distribution wid th Auto (RBC) [Ratio]on 04-30-2024 Erythrocyte distribution width (RBC) [Ratio] 13.6 % 11.0-15.0 [facility] Estimated glomerular filtrat ion rate (GFR) non- Americanon 04-30-2024 GFR/1.73 sq M.predicted among non-blacks MDRD (S/P/Bld) [Vol rate/Area] mL/min/{1.73_m2} >=60 [facility] Globulin Calc (S) [Mass/Vol] on 04-30-2024 Globulin (S) [Mass/Vol] 3.4 g/dL [facility] Glucose mean value [Mass/vol ume] in Blood Estimated from glycated hemoglobinon 04-30-2024 Average glucose Estimated from glycated hemoglobin (Bld) [Mass/Vol] 137 mg/dL [facility] Hematocrit Auto (Bld) [Volum e fraction]on 04-30-2024 Hematocrit (Bld) [Volume fraction] 39.8 % 36.0-48.0 [facility] Hemoglobin [Mass/volume] in Bloodon 04-30-2024 Hemoglobin (Bld) [Mass/Vol] 13.0 g/dL 12.0-16.0 [facility] Laboratory - Chemistry and C hemistry - challengeon 04-30-2024 Albumin [Mass/Vol] 3.5 g/dL 3.4-5.0 [facility] ALP [Catalytic activity/Vol] 89 U/L 46-116 [facility] ALT [Catalytic activity/Vol] 25 U/L 14-59 [facility] AST [Catalytic activity/Vol] 21 U/L 15-37 [facility] Bilirubin [Mass/Vol] 1.1 mg/dL High 0.2-1.0 [facility] Calcium [Mass/Vol] 9.3 mg/dL 8.5-10.1 [facility] Chloride [Moles/Vol] 105 mmol/L 98-107 [facility] Cholesterol [Mass/Vol] 123 mg/dL <=200 [facility] Cholesterol in HDL [Mass/Vol] 70 mg/dL High 40-60 [facility] Comment on above: > or =60 mg/dl - LOW CARDIOVASCULAR RISK<40 mg/dl - HIGH CARDIOVASCULAR RISK CO2 [Moles/Vol] 26.1 mmol/L 21.0-32.0 [facility] Creatinine [Mass/Vol] 0.71 mg/dL 0.55-1.02 [facility] GFR/1.73 sq M.predicted MDRD (S/P/Bld) [Vol rate/Area] mL/min/{1.73_m2} >=60 [facility] Glucose [Mass/Vol] 96 mg/dL 74-106 [facility] Potassium [Moles/Vol] 4.0 mmol/L 3.5-5.1 [facility] Protein [Mass/Vol] 6.9 g/dL 6.4-8.2 [facility] Sodium [Moles/Vol] 141 mmol/L 136-145 [facility] Triglyceride [Mass/Vol] 53 mg/dL <=150 [facility] TSH Qn 0.705 m[IU]/L 0.358-3.74 0 [facility] Urea nitrogen [Mass/Vol] 16.0 mg/dL 7.0-18.0 [facility] Urea nitrogen/Creatinin e [Mass ratio] 22.5 mg/mg [facility] Laboratory - Hematology and Cell countson 04-30-2024 HbA1c (Bld) [Mass fraction] 6.4 % High 4.5-6.2 [facility] Comment on above: ADA RECOMMENDED LIMI T 4.0 - 6.0ADA THERAPEUTIC TARGET < 7.0ACTION SUGGESTED> 7.0 Immature granulocytes/100 WBC (Bld) 0.4 % 0.0-0.5 [facility] Leukocytes [#/volume] correc torri for nucleated erythrocytes in Blood by Automated counon 04-30-2024 WBC corrected for nucl RBC Auto (Bld) [#/Vol] 5.3 10 3/uL 4.0-11.0 [facility] Lymphocytes Auto (Bld) [#/Vo l]on 04-30-2024 Lymphocytes (Bld) [#/Vol] 1.0 10 3/uL Low 1.2-3.8 [facility] Lymphocytes/100 WBC Auto (Bl d)on 04-30-2024 Lymphocytes/100 WBC (Bld) 17.8 % Low 20.5-60.0 [facility] MCH Auto (RBC) [Entitic mass ]on 04-30-2024 MCH (RBC) [Entitic mass] 30.1 pg 26.7-34.0 [facility] MCHC Auto (RBC) [Mass/Vol]on 04-30-2024 MCHC (RBC) [Mass/Vol] 32.7 g/dL 29.9-35.2 [facility] MCV Auto (RBC) [Entitic vol] on 04-30-2024 MCV (RBC) [Entitic vol] 92.1 fL 81.0-99.0 [facility] Monocytes Auto (Bld) [#/Vol] on 04-30-2024 Monocytes (Bld) [#/Vol] 0.6 10 3/uL 0.3-0.8 [facility] Monocytes/100 WBC Auto (Bld) on 04-30-2024 Monocytes/100 WBC (Bld) 10.3 % 1.7-12.0 [facility] Neutrophils Auto (Bld) [#/Vo l]on 04-30-2024 Neutrophils (Bld) [#/Vol] 3.7 10 3/uL 1.4-6.5 [facility] Neutrophils/100 WBC Auto (Bl d)on 04-30-2024 Neutrophils/100 WBC (Bld) 68.9 % 43.0-75.0 [facility] No Panel Informationon 04-30 Eosinophils # (Auto) 0.1 10 3/uL 0.0-0.7 [facility] Immature Granulocyte # (Auto) 0.02 10 3/uL 0.00-0.03 [facility] Platelet mean volume Auto (B ld) [Entitic vol]on 04-30-2024 Platelet mean volume (Bld) [Entitic vol] 10.5 fL 9.5-13.5 [facility] Platelets Auto (Bld) [#/Vol] on 04-30-2024 Platelets (Bld) [#/Vol] 188 10 3/uL 150-450 [facility] RBC Auto (Bld) [#/Vol]on RBC (Bld) [#/Vol] 4.32 10 6/uL 4.20-5.40 [facility] Serum or plasma albumin/glob ulin mass ratioon 04-30-2024 Albumin/Globulin [Mass ratio] 1.0 {ratio} [facility] Serum or plasma anion gap de terminationon 04-30-2024 Anion gap [Moles/Vol] 13.9 mmol/L [facility] Serum or plasma total choles terol/high density lipoprotein (HDL) cholesterol mass stephane 04-30-2024 Cholesterol.total/ Cholesterol in HDL [Mass ratio] 1.8 {ratio} [facility] Comment on above: 3.3 - 4.4 LOW RISK4. 4 - 7.1 AVERAGE RISK7.1 - 11.0 MODERATE RISK>11.0 HIGH RISK Bacteria identified Aer cx N om (Unsp spec)Ordered By: Juancarlos Campbell on 01-12-2024 Superficial Wound Culture Pseudomonas aeruginosa [facility] Superficial Wound Cultureon 01-12-2024 Superficial Wound Culture [...] RESISTANT TO ALL B-LACTAM DRUGS. PERFORMED BY: [place] [address] PATHOLOGIST [employer] HERMELINDO BLUM M.D. [facility] Comment on above: Performed By: #### C [facility] #### [address] MG MAMM SCREEN 3D KRISTOFER CADon 04-07-2023 MG MAMM SCREEN 3D KRISTOFER CAD Patient: SANDRA TAVAREZ Exam Date: 04/07/2023 : 1940 Gender:F Ordering : DR ROBERT VAIL D.O. Admission #: [id number] Family : Order #: [id number] CLICK HERE TO VIEW EXAM RADIOLOGY REPORT [...] leukemia cancer at age 43. LOCATION: [facility] BREAST COMPOSITION: Scattered areas fibroglandular density. FINDINGS: [...] M.D. on 04/07/2023 at 14:36 Normal [facility] CBC AUTO DIFFon 03-14-2023 BASO # 0.1 103/ul Normal 0.0-0.1 [facility] Comment on above: Performed By: #### C BC ####[facility] [address] [place] [address]DrKen Louis Basophils/100 WBC (Bld) 0.9 % Normal 0.2-2.0 [facility] Comment on above: Performed By: #### C BC ####[facility] [address] [place], [place] [address]DrKen Louis EO # 0.1 103/ul Normal 0.0-0.7 [facility] Comment on above: Performed By: #### C BC ####[facility] [address] [place], [place] [address]DrKen Louis Eosinophils/100 WBC (Bld) 1.2 % Normal 0.9-7.0 [facility] Comment on above: Performed By: #### C BC ####[facility] [address] [place], [place] [address]DrKen Louis Erythrocyte distribution width (RBC) [Ratio] 13.2 % Normal 11.0-15.0 [facility] Comment on above: Performed By: #### C BC ####[facility] [address] [place], [place] [address]DrKen Louis Hematocrit (Bld) [Volume fraction] 44.1 % Normal 36.0-48.0 [facility] Comment on above: Performed By: #### C BC ####[facility] [address] [place] [address]Dr. Gaurav Louis Hemoglobin (Bld) [Mass/Vol] 14.7 g/dL Normal 12.0-16.0 [facility] Comment on above: Performed By: #### C BC ####[facility] [address] [place], [place] [address]Dr. Gaurav Louis IG # 0.02 10e3/ul Normal 0.00-0.03 [facility] Comment on above: Performed By: #### C BC ####[facility] [address] [place], [place] [address]Dr. Gaurav Louis IG % 0.4 % Normal 0.0-0.5 [facility] Comment on above: Performed By: #### C BC ####[facility] [address] [place], [place] [address]Dr. Gaurav Louis LYMPH # 0.9 103/ul Critically low 1.2-3.8 [facility] Comment on above: Performed By: #### C BC ####[facility] [address] [place], [place] [address]Dr. Gaurav Louis Lymphocytes/100 WBC (Bld) 16.5 % Critically low 20.5-60.0 [facility] Comment on above: Performed By: #### C BC ####[facility] [address] [place], [place] [address]DrKen Louis MANUAL DIFF REQ NO Normal [facility] Comment on above: Performed By: #### C BC ####[facility] [address] [place], [place] [address]Dr. Gaurav Louis MCH (RBC) [Entitic mass] 30.7 pg Normal 26.7-34.0 [facility] Comment on above: Performed By: #### C BC ####[facility] [address] [place], [place] [address]Dr. Gaurav Louis MCHC (RBC) [Mass/Vol] 33.3 g/dL Normal 29.9-35.2 [facility] Comment on above: Performed By: #### C BC ####[facility] [address] [place] [address]DrKen Louis MCV (RBC) [Entitic vol] 92.1 fL Normal 81.0-99.0 [facility] Comment on above: Performed By: #### C BC ####[facility] [address] [place], [place] [address]DrKen Louis MONO # 0.5 103/ul Normal 0.3-0.8 [facility] Comment on above: Performed By: #### C BC ####[facility] [address] [place], [place] [address]DrKen Louis Monocytes/100 WBC (Bld) 8.0 % Normal 1.7-12.0 [facility] Comment on above: Performed By: #### C BC ####[facility] [address] [place], [place] [address]DrKen Louis NEUT # 4.1 103/ul Normal 1.4-6.5 [facility] Comment on above: Performed By: #### C BC ####[facility] [address] [place], [place] [address]DrKen Louis Neutrophils/100 WBC (Bld) 73.0 % Normal 43.0-75.0 [facility] Comment on above: Performed By: #### C BC ####[facility] [address] [place], [place] [address]DrKen Louis Platelet mean volume (Bld) [Entitic vol] 10.0 fL Normal 9.5-13.5 [facility] Comment on above: Performed By: #### C BC ####[facility] [address] [place], [place] [address]DrKen Louis PLT 184 103/ul Normal 150-450 [facility] Comment on above: Performed By: #### C BC ####[facility] [address] [place], [place] [address]Dr. Gaurav Louis RBC 4.79 106/ul Normal 4.20-5.40 [facility] Comment on above: Performed By: #### C BC ####[facility] [address] [place], [place] [address]MqDr. Gaurav Louis WBC 5.6 103/ul Normal 4.0-11.0 [facility] Comment on above: Performed By: #### C BC ####[facility] [address] [place] [id number]. Gaurav Louis GLYCOHEMOGLOBIN A1Con 2022 ADA RECOMMENDATION SEE BELOW Normal [facility] Comment on above: Result Comment: ADA RECOMMENDED LIMIT 4.0 - 6.0 ADA THERAPEUTIC TARGET < 7.0 ACTION SUGGESTED > 7.0 Performed By: #### A 1C #### [facility] [address] [place] [address] [address] Gaurav Louis Glucose [Mass/Vol] 148 mg/dL Normal [facility] Comment on above: Performed By: #### A 1C #### [facility] [address] [place] [address] [address] Gaurav Louis HbA1c (Bld) [Mass fraction] 6.8 % Critically high 4.5-6.2 [facility] Comment on above: Performed By: #### A 1C #### [facility] [address] [place] [address] [address] Gaurav Louis LIPID PROFILEon 03-14-2023 CHOL-HDL RATIO NORM SEE BELOW Normal [facility] Comment on above: Result Comment: 3.3 - 4.4 LOW RISK 4.4 - 7.1 AVERAGE RISK 7.1 - 11.0 MODERATE RISK >11.0 HIGH RISK Performed By: #### T SH, LIPID, BMP #### [facility] [address] [place] [address] [address] Gaurav Louis Cholesterol [Mass/Vol] 137 mg/dL Normal <=200 [facility] Comment on above: Performed By: #### T SH, LIPID, BMP #### [facility] [address] [place] [address] [address] Gaurav Louis Cholesterol in HDL [Mass/Vol] 63 mg/dL Critically high 40-60 [facility] Comment on above: Performed By: #### T SH, LIPID, BMP #### [facility] [address] [place] [address] [address] Gaurav Louis Cholesterol in LDL [Mass/Vol] 57.8 mg/dL Normal [facility] Comment on above: Performed By: #### T SH, LIPID, BMP #### [facility] [address] [place] [address] [address] Gaurav Louis Cholesterol.total/ Cholesterol in HDL [Mass ratio] 2.2 {ratio} Normal [facility] Comment on above: Performed By: #### T SH, LIPID, BMP #### [facility] [address] [place] [address] Dr. Guarav Louis HDL NORMAL > or = 60 mg/dl - LO W CARDIOVASCULAR RISK <40 mg/dl - HIGH CARDIOVASCULAR RISK Normal [facility] Comment on above: Performed By: #### T SH, LIPID, BMP #### [facility] [address] [place] [address] [address] Gaurav Louis LDL CALC NORMAL SEE BELOW Normal [facility] Comment on above: Result Comment: <100 mg/dl OPTIMAL 100 - 129 mg/dl NEAR OR ABOVE OPTIMAL 130 - 159 mg/dl BORDERLINE HIGH 160 - 189 mg/dl HIGH >190 mg/dl VERY HIGH Performed By: #### T SH, LIPID, BMP #### [facility] [address] [place] [address] Dr. Gaurav Louis Triglyceride [Mass/Vol] 81 mg/dL Normal <=150 [facility] Comment on above: Performed By: #### T SH, LIPID, BMP #### [facility] [address] [place] [address] Dr. Gaurav Louis VLDL CALC 16.2 mg/dL Normal [facility] Comment on above: Performed By: #### T SH, LIPID, BMP #### [facility] [address] [place] [address] Dr. Gaurav Louis MICROALBUMIN, RAND URon 04-1 mALB 2.8 mg/L Normal <=30.0 [facility] Comment on above: Performed By: #### M ALBR #### [facility] [address] [place] [address] Dr. Gaurav Louis PROF CHEM 8 (BAS METB)on Anion gap [Moles/Vol] 13.4 mmol/L Normal [facility] Comment on above: Performed By: #### T SH, LIPID, BMP #### [facility] [address] [place] [address] Dr. Gaurav Louis Calcium [Mass/Vol] 9.7 mg/dL Normal 8.5-10.1 [facility] Comment on above: Performed By: #### T SH, LIPID, BMP #### [facility] [address] [place] [address] Dr. Gaurav Louis Chloride [Moles/Vol] 103 mmol/L Normal 98-107 [facility] Comment on above: Performed By: #### T SH, LIPID, BMP #### [facility] [address] [place] [address] Dr. Gaurav Louis CO2 [Moles/Vol] 28.2 mmol/L Normal 21.0-32.0 [facility] Comment on above: Performed By: #### T SH, LIPID, BMP #### [facility] [address] [place] [address] Dr. Gaurav Louis Creatinine [Mass/Vol] 0.94 mg/dL Normal 0.55-1.02 [facility] Comment on above: Performed By: #### T SH, LIPID, BMP #### [facility] [address] [place] [address] Dr. Gaurav Louis EGFR-AF NIGERIEN >60 Normal >=60 [facility] Comment on above: Performed By: #### T SH, LIPID, BMP #### [facility] [address] [place] [address] Dr. Gaurav Louis EGFR-NON AF NIGERIEN 57 mL/min/1.73m2 Critically low >=60 [facility] Comment on above: Performed By: #### T SH, LIPID, BMP #### [facility] [address] [place] [address] Dr. Gaurav Louis Glucose [Mass/Vol] 155 mg/dL Critically high 74-106 [facility] Comment on above: Performed By: #### T TANIKA LIPID, BMP #### [facility] [address] [place] [address] Dr. Gaurav Louis Potassium [Moles/Vol] 3.6 mmol/L Normal 3.5-5.1 [facility] Comment on above: Performed By: #### T TANIKA LIPID, BMP #### [facility] [address] [place] [address] Dr. Gaurav Louis Sodium [Moles/Vol] 141 mmol/L Normal 136-145 [facility] Comment on above: Performed By: #### T TANIKA LIPID, BMP #### [facility] [address] [place] [address] Dr. Gaurav Louis Urea nitrogen [Mass/Vol] 19.0 mg/dL Critically high 7.0-18.0 [facility] Comment on above: Performed By: #### T TANIKA LIPID, BMP #### [facility] [address] [place] [address] Dr. Gaurav Louis Urea nitrogen/Creatinin e [Mass ratio] 20.2 mg/mg Normal [facility] Comment on above: Performed By: #### T TANIKA LIPID, BMP #### [facility] [address] [place] [address] Dr. Gaurav Louis TSHon 03-14-2023 TSH 0.784 uIU/mL Normal 0.358-3.74 0 [facility] Comment on above: Performed By: #### T TANIKA LIPID, BMP #### [facility] [address] [place] [address] Dr. Gaurav Louis SARS-CoV-2 (COVID-19) RNA NA A+probe Ql (Resp)on 09-11-2022 SARS-CoV-2 (COVID-19) RNA LANDEN+probe Ql (Unsp spec) Positive [employer] Other CBC AUTO DIFFon 07-06-2022 BASO # 0.1 103/ul Normal 0.0-0.1 [facility] Comment on above: Performed By: #### C BC #### [facility] [address] [place] [address] Dr. Gaurav Louis Basophils/100 WBC (Bld) 0.5 % Normal 0.2-2.0 [facility] Comment on above: Performed By: #### C BC #### [facility] [address] [place] [address] Dr. Gaurav Louis EO # 0.1 103/ul Normal 0.0-0.7 [facility] Comment on above: Performed By: #### C BC #### [facility] [address] [place] [address] Dr. Gaurav Louis Eosinophils/100 WBC (Bld) 0.7 % Critically low 0.9-7.0 [facility] Comment on above: Performed By: #### C BC #### [facility] [address] [place] [address] Dr. Gaurav Louis Erythrocyte distribution width (RBC) [Ratio] 22.5 % Critically high 11.0-15.0 [facility] Comment on above: Result Comment: 2+ a nisocytosis Performed By: #### C BC #### [facility] [address] [place] [address] Dr. Gaurav Louis Hematocrit (Bld) [Volume fraction] 41.4 % Normal 36.0-48.0 [facility] Comment on above: Performed By: #### C BC #### [facility] [address] [place] [address] Dr. Gaurav Louis Hemoglobin (Bld) [Mass/Vol] 13.4 g/dL Normal 12.0-16.0 [facility] Comment on above: Performed By: #### C BC #### [facility] [address] [place] [address] Dr. Gaurav Louis IG # 0.04 10e3/ul Critically high 0.00-0.03 [facility] Comment on above: Performed By: #### C BC #### [facility] [address] [place] [address] Dr. Gaurav Louis IG % 0.4 % Normal 0.0-0.5 [facility] Comment on above: Performed By: #### C BC #### [facility] [address] [address] [address] Gaurav Louis LYMPH # 1.1 103/ul Critically low 1.2-3.8 [facility] Comment on above: Performed By: #### C BC #### [facility] [address] [place] [address] Dr. Gaurav Louis Lymphocytes/100 WBC (Bld) 10.2 % Critically low 20.5-60.0 [facility] Comment on above: Performed By: #### C BC #### [facility] [address] [place] [address] Dr. Gaurav Louis MANUAL DIFF REQ NO Normal [facility] Comment on above: Performed By: #### C BC #### [facility] [address] [place] [address] Dr. Gaurav Louis MCH (RBC) [Entitic mass] 28.3 pg Normal 26.7-34.0 [facility] Comment on above: Performed By: #### C BC #### [facility] [address] [place] [address] Dr. Gaurav Louis MCHC (RBC) [Mass/Vol] 32.4 g/dL Normal 29.9-35.2 [facility] Comment on above: Performed By: #### C BC #### [facility] [address] [place] [address] Dr. Gaurav Louis MCV (RBC) [Entitic vol] 87.5 fL Normal 81.0-99.0 [facility] Comment on above: Performed By: #### C BC #### [facility] [address] [place] [address] Dr. Gaurav Louis MONO # 0.8 103/ul Normal 0.3-0.8 [facility] Comment on above: Performed By: #### C BC #### [facility] [address] [place] [address] Dr. Gaurav Louis Monocytes/100 WBC (Bld) 7.3 % Normal 1.7-12.0 [facility] Comment on above: Performed By: #### C BC #### [facility] [address] [address] [address] Gaurav Louis NEUT # 8.4 103/ul Critically high 1.4-6.5 [facility] Comment on above: Performed By: #### C BC #### [facility] [address] [address] [address] Gaurav Louis Neutrophils/100 WBC (Bld) 80.9 % Critically high 43.0-75.0 [facility] Comment on above: Performed By: #### C BC #### [facility] [address] [place] [address] Dr. Gaurav Louis Platelet mean volume (Bld) [Entitic vol] 10.0 fL Normal 9.5-13.5 [facility] Comment on above: Performed By: #### C BC #### [facility] [address] [place] [address] Dr. Gaurav Louis PLT 178 103/ul Normal 150-450 [facility] Comment on above: Performed By: #### C BC #### [facility] [address] [place] [address] Dr. Gaurav Louis RBC 4.73 106/ul Normal 4.20-5.40 [facility] Comment on above: Performed By: #### C BC #### [facility] [address] [place] [address] Dr. Gaurav Louis WBC 10.3 103/ul Normal 4.0-11.0 [facility] Comment on above: Performed By: #### C BC #### [facility] [address] [place] [address] Dr. Gaurav Louis US SINGLE QUAD LT [...] NIDA ALVAREZ Date: 2022-04-30 18:10 Normal [facility] CBC AUTO DIFFon 04-13-2022 BASO # 0.0 103/ul Normal 0.0-0.1 [facility] Comment on above: Performed By: #### C BC #### [facility] [address] [place] [address] Dr. Gaurav Louis Basophils/100 WBC (Bld) 0.6 % Normal 0.2-2.0 [facility] Comment on above: Performed By: #### C BC #### [facility] [address] [place] [address] Dr. Gaurav Louis EO # 0.1 103/ul Normal 0.0-0.7 [facility] Comment on above: Performed By: #### C BC #### [facility] [address] [place] [address] Dr. Gaurav Louis Eosinophils/100 WBC (Bld) 1.7 % Normal 0.9-7.0 [facility] Comment on above: Performed By: #### C BC #### [facility] [address] [place] [address] Dr. Gaurav Louis Erythrocyte distribution width (RBC) [Ratio] 21.1 % Critically high 11.0-15.0 [facility] Comment on above: Performed By: #### C BC #### [facility] [address] [place] [address] Dr. Gaurav Louis Hematocrit (Bld) [Volume fraction] 33.6 % Critically low 36.0-48.0 [facility] Comment on above: Performed By: #### C BC #### [facility] [address] [place] [address] Dr. Gaurav Louis Hemoglobin (Bld) [Mass/Vol] 10.0 g/dL Critically low 12.0-16.0 [facility] Comment on above: Performed By: #### C BC #### [facility] [address] [place] [address] Dr. Gaurav Louis IG # 0.02 10e3/ul Normal 0.00-0.03 [facility] Comment on above: Performed By: #### C BC #### [facility] [address] [address] [address] Gaurav Louis IG % 0.4 % Normal 0.0-0.5 [facility] Comment on above: Performed By: #### C BC #### [facility] [address] [address] [address] Gaurav Louis LYMPH # 1.0 103/ul Critically low 1.2-3.8 [facility] Comment on above: Performed By: #### C BC #### [facility] [address] [place] [address] Dr. Gaurav Louis Lymphocytes/100 WBC (Bld) 18.3 % Critically low 20.5-60.0 [facility] Comment on above: Performed By: #### C BC #### [facility] [address] [place] [address] Dr. Gaurav Louis MANUAL DIFF REQ NO Normal [facility] Comment on above: Performed By: #### C BC #### [facility] [address] [place] [address] Dr. Gaurav Louis MCH (RBC) [Entitic mass] 22.8 pg Critically low 26.7-34.0 [facility] Comment on above: Performed By: #### C BC #### [facility] [address] [place] [address] Dr. Gaurav Louis MCHC (RBC) [Mass/Vol] 29.8 g/dL Critically low 29.9-35.2 [facility] Comment on above: Performed By: #### C BC #### [facility] [address] [place] [address] Dr. Gaurav Louis MCV (RBC) [Entitic vol] 76.7 fL Critically low 81.0-99.0 [facility] Comment on above: Performed By: #### C BC #### [facility] [address] [place] [address] Dr. Gaurav Louis MONO # 0.5 103/ul Normal 0.3-0.8 [facility] Comment on above: Performed By: #### C BC #### [facility] [address] [place] [address] Dr. Gaurav Louis Monocytes/100 WBC (Bld) 8.8 % Normal 1.7-12.0 [facility] Comment on above: Performed By: #### C BC #### [facility] [address] [address] [address] Gaurav Louis NEUT # 3.8 103/ul Normal 1.4-6.5 [facility] Comment on above: Performed By: #### C BC #### [facility] [address] [place] [address] Dr. Gaurav Louis Neutrophils/100 WBC (Bld) 70.2 % Normal 43.0-75.0 [facility] Comment on above: Performed By: #### C BC #### [facility] [address] [place] [address] Dr. Gaurav Louis Platelet mean volume (Bld) [Entitic vol] 9.4 fL Critically low 9.5-13.5 [facility] Comment on above: Performed By: #### C BC #### [facility] [address] [place] [address] Dr. Gaurav Louis PLT 226 103/ul Normal 150-450 [facility] Comment on above: Performed By: #### C BC #### [facility] [address] [place] [address] Dr. Gaurav Louis RBC 4.38 106/ul Normal 4.20-5.40 [facility] Comment on above: Performed By: #### C BC #### [facility] [address] [place] [address] Dr. Gaurav Louis WBC 5.4 103/ul Normal 4.0-11.0 [facility] Comment on above: Performed By: #### C BC #### [facility] [address] [place] [address] Dr. Gaurav Louis XR ankle LT min 3V*on 2020 XR ankle LT min 3V* [facility] [employer] Other XR ankle LT min 3V* [facility] [employer] Other XR ankle LT min 3V* [facility] [employer] Other XR ankle LT min 3V* [place] [address] [employer] Other XR ankle LT min 3V* XRay Report [employer] Other XR ankle LT min 3V* Signed [employer] Other XR ankle LT min 3V* Patient: Sandra Tavarez MR#: [id number] [employer] Other XR ankle LT min 3V* 7 [employer] Other XR ankle LT min 3V* : 1940 Acct:[id number] [employer] Other XR ankle LT min 3V* Age/Sex: 80 / F ADM Date: 11/07/21 [employer] Other XR ankle LT min 3V* Loc: XDUCLY Room: Type: [facility] [employer] Other XR ankle LT min 3V* Attending Dr: Quita ZUNIGA [employer] Other XR ankle LT min 3V* Ordering Provider: NADIA Wins[place] [employer] Other XR ankle LT min 3V* Date of Service: 11/07/21 [employer] Other XR ankle LT min 3V* XR/XR ankle LT min 3V*: Acute left ankle pain [employer] Other XR ankle LT min 3V* Copies to: NADIA [place] [employer] Other XR ankle LT min 3V* XR ankle LT min 3V* 11/07/2021 12:15 PM [employer] Other XR ankle LT min 3V* SIGNS AND SYMPTOMS: Pain along the left Achilles and lateral aspect of the calcaneus, limited range [employer] Other XR ankle LT min 3V* of motion [employer] Other XR ankle LT min 3V* PROTOCOL: Frontal, lateral, and oblique radiographs of the left ankle [employer] Other XR ankle LT min 3V* COMPARISON: None [employer] Other XR ankle LT min 3V* FINDINGS: [employer] Other XR ankle LT min 3V* The ankle mortise is preserved. There is cortical irregularity along the inferior margin of the [employer] Other XR ankle LT min 3V* lateral malleolus which may represent sequelae of a previous avulsive-type injury. There is soft [employer] Other XR ankle LT min 3V* tissue swelling diffusely but greatest along the dorsal soft tissues. There is plantar surface [employer] Other XR ankle LT min 3V* calcaneal spurring. Vascular calcifications are present. Degenerative changes are noted in the [employer] Other XR ankle LT min 3V* midfoot. [employer] Other XR ankle LT min 3V* XR/XR ankle LT min 3V* [employer] Other XR ankle LT min 3V* IMPRESSION: [employer] Other XR ankle LT min 3V* No acute displaced fracture. Nor [employer] Other XR ankle LT min 3V* Diffuse soft tissue swelling greatest posteriorly. [employer] Other XR ankle LT min 3V* There is plantar surface calcaneal spurring. [employer] Other XR ankle LT min 3V* Impression dictated by: Tex Diaz M.D.11/07/2021 12:50 PM [employer] Other XR ankle LT min 3V* Dictation Location: [place] [address] [employer] Other XR ankle LT min 3V* Transcribed By: SHAHIDA 11/07/21 1250 [employer] Other XR ankle LT min 3V* Dictated By: Tex Diaz II, MD 11/07/21 1248 [employer] Other XR ankle LT min 3V* Signed By: [employer] Other XR ankle LT min 3V* 11/07/21 1250 [employer] Other [facility] Preoperative Recordon 0 06-04-2020 [facility] Preoperative Record [facility] Pre-Op Record Summary Primary Physician: FERNANDO SILVA Finalized Date/Time: 06/04/20 08:46:37 Pt. Name: BARBARA TAVAREZRA Lyndsay White/Sex: 1940 FEMALE Med Rec #: [id number] Physician: FERNANDO SILVA Financial #: [id number] Pt. Type: I Room/Bed: [facility] Admit/Disch: 05/23/20 09:44:18 - 05/27/20 15:15:00 Institution: [...] Signed By: Stacy Pena RN 06/04/20 08:46 [facility] Consent Formson 05-28-2020 Consent Forms [id number][facility] 05-28-2020 Outside Records [id number]#[facility] [id number]#1.00[facility] Provider Orderson 05-28-2020 Provider Orders [id number]#1.[facility] Telemetry Stripson 0 Telemetry Strips [id number]#1.[facility] .Auto Diff 1on 05-27-2020 Auto [place] % 13 % High 1-12 [facility] Comment on above: Performed By: #### 1 [id number], [id number], [id number] #### [facility] (DEFAULT) [address] [place] [address] 55008 Baso Abs# 0.0 x10 Normal 0.0-0.2 [facility] Comment on above: Performed By: #### 1 [id number], [id number], 4947502 #### [facility] (DEFAULT) [address] [place] [address] 71800 Basophils/100 WBC (Bld) 0.3 % Normal 0.2-2.0 [facility] Comment on above: Performed By: #### 1 [id number], [id number], 5717704 #### [facility] (DEFAULT) [address] [place] [address] 11990 Eos Abs# 0.1 x10 Normal 0.0-0.4 [facility] Comment on above: Performed By: #### 1 [id number], 03455993, 8574722 #### [facility] (DEFAULT) [address] [place] [address] 49523 Eosinophils/100 WBC (Bld) 1.4 % Normal 0.9-4.0 [facility] Comment on above: Performed By: #### 1 [id number], [id number], 7029501 #### [facility] (DEFAULT) [address] [place] [address] 13020 Lymphocytes (Bld) [#/Vol] 1.4 x10 Normal 1.3-2.9 [facility] Comment on above: Performed By: #### 1 [id number], [id number], 1840502 #### [facility] (DEFAULT) [address] [place] [address] 21506 Lymphocytes/100 WBC (Bld) 16 % Normal 14-48 [facility] Comment on above: Performed By: #### 1 [id number], 38062455, 5549453 #### [facility] (DEFAULT) [address] [place] [address] [place] Abs# 1.1 x10 High 0.0-0.8 [facility] Comment on above: Performed By: #### 1 [id number], 21166960, 9551221 #### [facility] (DEFAULT) [address] [place] [address] 54628 Neut Abs# 6.1 x10 Normal 1.5-9.2 [facility] Comment on above: Performed By: #### 1 [id number], 59421879, 9406161 #### [facility] (DEFAULT) [address] [place] [address] 67473 Neutrophils/100 WBC (Bld) 70 % Normal 44-88 [facility] Comment on above: Performed By: #### 1 [id number], 14983667, 3661017 #### [facility] (DEFAULT) [address] [place] [address] 91856 BMP Standardon 05-27-2020 eGFR Non AA >60 [facility] Comment on above: Performed By: #### 1 [id number], 71507625, 7209697 #### [facility] (DEFAULT) [address] [place] [address] 56631 eGFR AA >60 [facility] Comment on above: Result Comment: Licensed Physical Therapy Assistant ghazal Kidney disease could be indicated at eGFRs of less than 60 ml/min/1.73m2. Kidney Failure is indicated at less than 15 ml/min/1.73m2 Performed By: #### 1 [id number], [id number], 8723559 #### [facility] (DEFAULT) [address] [place] [address] 57424 Anion gap [Moles/Vol] 15.0 mmol/L Normal 5.0-19.0 [facility] Comment on above: Performed By: #### 1 [id number], 19456306, 5424342 #### [facility] (DEFAULT) [address] [place] [address] 70817 Calcium [Mass/Vol] 9.2 mg/dL Normal 8.9-10.3 [facility] Comment on above: Performed By: #### 1 [id number], 86390278, 4674329 #### [facility] (DEFAULT) [address] [place] [address] 46259 Chloride [Moles/Vol] 101 mmol/L Normal 101-111 [facility] Comment on above: Performed By: #### 1 [id number], 92892370, 6720029 #### [facility] (DEFAULT) [address] [place] [address] 76550 CO2 [Moles/Vol] 26 mmol/L Normal 21-32 [facility] Comment on above: Performed By: #### 1 [id number], 06987319, 0575512 #### [facility] (DEFAULT) [address] [place] [address] 29723 Creatinine [Mass/Vol] 0.58 mg/dL Low 0.60-1.30 [facility] Comment on above: Performed By: #### 1 [id number], 40446582, 4345301 #### [facility] (DEFAULT) [address] [place] [address] 82607 Glucose [Mass/Vol] 120.0 mg/dL High 74.0-118.0 [facility] Comment on above: Performed By: #### 1 [id number], 62463141, 3853234 #### [facility] (DEFAULT) [address] [place] [address] 69710 Osmolality [Osmolality] 279 mOsm/L [facility] Comment on above: Performed By: #### 1 [id number], 39378755, 3205433 #### [facility] (DEFAULT) [address] [place] [address] 86873 Potassium [Moles/Vol] 3.7 mmol/L Normal 3.6-5.1 [facility] Comment on above: Performed By: #### 1 [id number], 87946368, 0896675 #### [facility] (DEFAULT) [address] [place] [address] Sodium [Moles/Vol] 138.0 mmol/L Normal 136.0-144 . 0 [facility] Comment on above: Performed By: #### 1 [id number], 93294288, 7741205 #### [facility] (DEFAULT) [address] [place] [address] 72542 Urea nitrogen [Mass/Vol] 19 mg/dL Normal 8-26 [facility] Comment on above: Performed By: #### 1 [id number], 80145439, 0879426 #### [facility] (DEFAULT) [address] [place] [address] Urea nitrogen/Creatinin e [Mass ratio] 33.0 mg/mg High 4.6-16.2 [facility] Comment on above: Performed By: #### 1 [id number], 48750730, 0917734 #### [facility] (DEFAULT) [address] [place] [address] 85519 CBC w/ Auto Diffon 0 Erythrocyte distribution width (RBC) [Ratio] 18.4 % High 11.5-15.0 [facility] Comment on above: Performed By: #### 1 [id number], 65001601, 7196504 #### [facility] (DEFAULT) [address] [place] [address] Hematocrit (Bld) [Volume fraction] 29.7 % Low 33.7-40.4 [facility] Comment on above: Performed By: #### 1 [id number], 63601252, 4812058 #### [facility] (DEFAULT) [address] [place] [address] 82855 Hemoglobin (Bld) [Mass/Vol] 9.0 g/dL Low 11.3-15.9 [facility] Comment on above: Performed By: #### 1 [id number], 76992792, 4864335 #### [facility] (DEFAULT) [address] [place] [address] 34900 Man Diff? Auto Normal [facility] Comment on above: Performed By: #### 1 [id number], 83126262, 1980886 #### [facility] (DEFAULT) [address] [place] [address] 70275 MCH (RBC) [Entitic mass] 25 pg Normal 24-34 [facility] Comment on above: Performed By: #### 1 [id number], 26647151, 8819782 #### [facility] (DEFAULT) [address] [place] [address] 59135 MCHC (RBC) [Mass/Vol] 30 g/dL Normal 26-37 [facility] Comment on above: Performed By: #### 1 [id number], 95312984, 9218960 #### [facility] (DEFAULT) [address] [place] [address] 45108 MCV (RBC) [Entitic vol] 82 fL Normal 81-100 [facility] Comment on above: Performed By: #### 1 [id number], 37417082, 5752844 #### [facility] (DEFAULT) [address] [place] [address] 60889 Platelet mean volume (Bld) [Entitic vol] 10.7 fL High 6.3-10.2 [facility] Comment on above: Performed By: #### 1 [id number], 25297152, 3450630 #### [facility] (DEFAULT) [address] [place] [address] 77276 Platelets (Bld) [#/Vol] 230 x10 Normal 138-427 [facility] Comment on above: Performed By: #### 1 [id number], 01476577, 5645363 #### [facility] (DEFAULT) [address] [place] [address] 85289 RBC (Bld) [#/Vol] 3.60 x10 Low 3.70-5.30 [facility] Comment on above: Performed By: #### 1 [id number], 29095090, 5156677 #### [facility] (DEFAULT) [address] [place] [address] 32307 WBC (Bld) [#/Vol] 8.8 x10 [facility] Comment on above: Performed By: #### 1 [id number], 57021562, 3958393 #### 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 G47.33 Y Obstructive sleep apnea (adult) (pediatric) Z99.89 1 Dependence on other enabling machines and devices G40.909 Y Epilepsy, unspecified, not intractable, without status epilepticus Z79.899 1 Other intermediate frame tender (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 therapy E66.01 Y Morbid (severe) obesity due to excess calories PROCEDURES DOCTOR NAME DATE [id number] Replacement of Left Knee Joint FERNANDO SILVA 05/23/2020 with Oxidized Zirconium on Polyethylene Synthetic Substitute, Cemented, Open Approach 27106K6 Transfusion of Nonautologous 05/25/2020 Red Blood Cells into Peripheral Vein, Percutaneous Approach NOTE: The code number assigned matches the documented diagnosis and / or procedure in the patient's chart. However, the narrative phrase printed from the coding software may appear abbreviated, or result in slightly different terminology. Revised Coded By: Jeane Mccormick Revised Date Saved: 05/27/2020 06:30 pm [facility] Education Noteon 05-27-2020 Education Note Education Materials [...] addiction please feel free to contact Dr. iSlva, your family physician, or proceed to the nearest hospital's emergency services department. Normal [facility] Inpatient Patient Summaryon 05-27-2020 Inpatient Patient Summary [address] [address] Patient Discharge Instructions Name: SANDRA TAVAREZ : 1940 Patient Address: [address] [address] Primary Care Provider: Name: Robert Vail After you are discharged if you find you have any questions, please, call [phone] ext [phone] to speak to a nurse. Discharge Diagnosis: Acute pain of left knee Prescription Information: If you have been given a prescription for narcotics, seek immediate medical attention if you have any difficulty breathing or any sudden status changes such as confusion and sleepiness. If you or anyone you know is experiencing suicidal thoughts, mental health, alcohol and/or drug addiction problems; contact the [facility] 20/06 Crisis Hotline -text 4HFZT to 253969. If you received any narcotics, sedation, or [...] business decisions or sign any legal documents [facility] would like to thank you for allowing us to assist you with your healthcare needs. The following includes patient education materials and information regarding your injury/illness. SANDRA TAVAREZ has been given the following list of follow-up instructions, prescriptions, and patient education materials: Follow-up Instructions With: Address: When: Robert Vail [address] [place] [id number] Business (1) With: Address: When: Tom Centeno [address] [place] [address], [address] [place] [address] Business (1) 06/06/2020 1:00 PM Medications During [...] #8 follow up in office with physician senior administrative assistant Octavio Centeno as scheduled #9 NOMS [...] Disease Control and Prevention July 2014 Normal [facility] POCT Glucose Levelon 020 Glucose [Mass/Vol] 125 mg/dL High 74-118 [facility] Comment on above: Performed By: #### 4 [id number] ####[facility] (DEFAULT)[address] [place] [id number] PTon 05-27-2020 INR Coag (PPP) [Relative time] 2.29 {INR} High 0.91-1.11 [facility] Comment on above: Performed By: #### 1 [id number], [id number], [id number] #### [facility] (DEFAULT) [address] [place] [address] 43600 PT Coag (PPP) [Time] 22.2 second(s) High 9.7-11.8 [facility] Comment on above: Performed By: #### 1 [id number], [id number], [id number] #### [facility] (DEFAULT) [address] [place] [address]173 Progress Note - Nurseon 04-30 Progress Note - Nurse Dressing change per Dr Moon. TORRI hose applied to both lower legs. Daughter here for transfer to the [facility]. Discharged to retirement per private vehicle with daughter. PT and OT assisted patient into car. [Electronically Signed on: 05/27/2020 18:20 EDT] Mayra Tafoya RN [Verified on: 05/27/2020 18:20 EDT] Michelet OWEN, [facility] Progress Note-Physicianon Progress Note-Physician DATE OF [...] The patient will be going to [facility] today. CONDITION ON DISCHARGE: Stable. Tino Moon DO JOB #: [id number] bk [Electronically Signed on: 05/28/2020 10:10 EDT] TINO MOON DO [Verified on: 05/28/2020 10:10 EDT] TINO MOON DO [Transcribed on: 05/27/2020 14:44 EDT] U [facility] Progress Note-Physician DATE OF POSTOPERATIVE [...] PROGNOSIS: Fair. Tino Moon DO JOB #: [id number] bk [Electronically Signed on: 05/27/2020 12:30 EDT] TINO MOON DO [Verified on: 05/27/2020 12:30 EDT] KRESGE, TINO DO [Transcribed on: 05/27/2020 10:45 EDT] GDU Normal [facility] .Auto Diff 105-26-2020 Auto [place] % 16 % High 1-12 [facility] Comment on above: Performed By: #### 1 [id number], [id number], [id number] #### [facility] (DEFAULT) [address] [place] [address] Baso Abs# 0.0 x10 Normal 0.0-0.2 [facility] Comment on above: Performed By: #### 1 [id number], 43782149, 3225898 #### [facility] (DEFAULT) [address] [place] [address] Basophils/100 WBC (Bld) 0.2 % Normal 0.2-2.0 [facility] Comment on above: Performed By: #### 1 [id number], 03403127, 9079119 #### [facility] (DEFAULT) [address] [place] [address] Eos Abs# 0.0 x10 Normal 0.0-0.4 [facility] Comment on above: Performed By: #### 1 [id number], 69949667, 0829784 #### [facility] (DEFAULT) [address] [place] [address] Eosinophils/100 WBC (Bld) 0.5 % Low 0.9-4.0 [facility] Comment on above: Performed By: #### 1 [id number], 27110840, 8859593 #### [facility] (DEFAULT) [address] [place] [address] 96667 Lymphocytes (Bld) [#/Vol] 1.2 x10 Low 1.3-2.9 [facility] Comment on above: Performed By: #### 1 [id number], 00324977, 4205335 #### [facility] (DEFAULT) [address] [place] [address] 85899 Lymphocytes/100 WBC (Bld) 15 % Normal 14-48 [facility] Comment on above: Performed By: #### 1 [id number], 81254062, 4648132 #### [facility] (DEFAULT) [address] [place] [address] [place] Abs# 1.3 x10 High 0.0-0.8 [facility] Comment on above: Performed By: #### 1 [id number], 76535503, 4517004 #### [facility] (DEFAULT) [address] [place] [address] Neut Abs# 5.6 x10 Normal 1.5-9.2 [facility] Comment on above: Performed By: #### 1 [id number], 78339561, 6258884 #### [facility] (DEFAULT) [address] [place] [address] Neutrophils/100 WBC (Bld) 68 % Normal 44-88 [facility] Comment on above: Performed By: #### 1 [id number], 05946156, 0279627 #### [facility] (DEFAULT) [address] [place] [address] CBC w/ Auto Diffon 0 Erythrocyte distribution width (RBC) [Ratio] 17.9 % High 11.5-15.0 [facility] Comment on above: Performed By: #### 1 [id number], 15982712, 3413608 #### [facility] (DEFAULT) [address] [place] [address] Hematocrit (Bld) [Volume fraction] 28.5 % Low 33.7-40.4 [facility] Comment on above: Performed By: #### 1 [id number], 53649478, 7237824 #### [facility] (DEFAULT) [address] [place] [address] Hemoglobin (Bld) [Mass/Vol] 8.5 g/dL Low 11.3-15.9 [facility] Comment on above: Performed By: #### 1 [id number], 32118187, 2162911 #### [facility] (DEFAULT) [address] [place] [address] Man Diff? Auto Normal [facility] Comment on above: Performed By: #### 1 [id number], 38460709, 9856306 #### [facility] (DEFAULT) [address] [place] [address] 80633 MCH (RBC) [Entitic mass] 24 pg Normal 24-34 [facility] Comment on above: Performed By: #### 1 [id number], 58627922, 3363436 #### [facility] (DEFAULT) [address] [place] [address] 20474 MCHC (RBC) [Mass/Vol] 30 g/dL Normal 26-37 [facility] Comment on above: Performed By: #### 1 [id number], 42718387, 8724308 #### [facility] (DEFAULT) [address] [place] [address] 61385 MCV (RBC) [Entitic vol] 81 fL Normal 81-100 [facility] Comment on above: Performed By: #### 1 [id number], 49981715, 6663863 #### [facility] (DEFAULT) [address] [place] [address] Platelet mean volume (Bld) [Entitic vol] 10.5 fL High 6.3-10.2 [facility] Comment on above: Performed By: #### 1 [id number], 24771617, 8742749 #### [facility] (DEFAULT) [address] [place] [address] 29937 Platelets (Bld) [#/Vol] 178 x10 Normal 138-427 [facility] Comment on above: Performed By: #### 1 [id number], 34198293, 7252607 #### [facility] (DEFAULT) [address] [place] [address] 36440 RBC (Bld) [#/Vol] 3.50 x10 Low 3.70-5.30 [facility] Comment on above: Performed By: #### 1 [id number], 61481831, 8344875 #### [facility] (DEFAULT) [address] [place] [address] 29293 WBC (Bld) [#/Vol] 8.2 x10 [facility] Comment on above: Performed By: #### 1 [id number], 39627073, 7971494 #### [facility] (DEFAULT) [address] [place] [address] 24124 Extra Greenon 05-26-2020 Tube Collected Yes [facility] Comment on above: Performed By: #### 1 [id number], 51796099, 3283433 #### [facility] (DEFAULT) [address] [place] [address] 09446 History and Physicalon 05-26 History and Physical [id number] Normal [facility] Nutrition Noteon 05-26-2020 Nutrition Note Per intake records, Pt avg 50% of past 6 meals with inconsistent supplement intake avg 1X/d. Last BM on 05/23, will offer prune juice. Post op anemia noted; per ortho 1unit PRBC given. CXR obtained for fever, dyspnea which was wnl. Possible discharge later today. Will continue to monitor. Normal [facility] PTon 05-26-2020 INR Coag (PPP) [Relative time] 2.54 {INR} High 0.91-1.11 [facility] Comment on above: Performed By: #### 1 [id number], 14119197, 1304413 #### [facility] (DEFAULT) [address] [place] [address] 24652 PT Coag (PPP) [Time] 24.4 second(s) High 9.7-11.8 [facility] Comment on above: Performed By: #### 1 [id number], 33785524, 9287993 #### [facility] (DEFAULT) [address] [place] [address] 59132 Progress Note-Physicianon Progress Note-Physician DATE OF ORTHOPEDIC [...] is good. Tino Moon DO JOB #: [id number] bk [Electronically Signed on: 05/26/2020 13:12 EDT] TINO MOON DO [Verified on: 05/26/2020 13:12 EDT] TINO MOON DO [Transcribed on: 05/26/2020 10:28 EDT] GDU [facility] XR Chest 1 View Frontalon [...] MD 05/26/20 3:37 pm Technologist: AUGUSTO LEE [facility] .Auto Diff 1on 05-25-2020 Auto [place] % 17 % High 1-12 [facility] Comment on above: Performed By: #### 1 [id number], 63852565, 8817537 #### [facility] (DEFAULT) [address] [place] [address] Baso Abs# 0.0 x10 Normal 0.0-0.2 [facility] Comment on above: Performed By: #### 1 [id number], 82106104, 8098429 #### [facility] (DEFAULT) [address] [place] [address] Basophils/100 WBC (Bld) 0.3 % Normal 0.2-2.0 [facility] Comment on above: Performed By: #### 1 [id number], 41694307, 5779580 #### [facility] (DEFAULT) [address] [place] [address] Eos Abs# 0.0 x10 Normal 0.0-0.4 [facility] Comment on above: Performed By: #### 1 335546433, 54794458, 1492423 #### [facility] (DEFAULT) [address] [place] [address] 54705 Eosinophils/100 WBC (Bld) 0.1 % Low 0.9-4.0 [facility] Comment on above: Performed By: #### 1 [id number], 55664983, 9721887 #### [facility] (DEFAULT) [address] [place] [address] Lymphocytes (Bld) [#/Vol] 0.8 x10 Low 1.3-2.9 [facility] Comment on above: Performed By: #### 1 [id number], 57030781, 6457949 #### [facility] (DEFAULT) [address] [place] [address] 56431 Lymphocytes/100 WBC (Bld) 11 % Low 14-48 [facility] Comment on above: Performed By: #### 1 [id number], 52348285, 5366293 #### [facility] (DEFAULT) [address] [place] [address] [place] Abs# 1.1 x10 High 0.0-0.8 [facility] Comment on above: Performed By: #### 1 [id number], 67276865, 4011895 #### [facility] (DEFAULT) [address] [place] [address] Neut Abs# 4.8 x10 Normal 1.5-9.2 [facility] Comment on above: Performed By: #### 1 [id number], 45292821, 2765935 #### [facility] (DEFAULT) [address] [place] [address] Neutrophils/100 WBC (Bld) 72 % Normal 44-88 [facility] Comment on above: Performed By: #### 1 [id number], 30580356, 7519140 #### [facility] (DEFAULT) [address] [place] [address] CBC w/ Auto Diffon 0 Erythrocyte distribution width (RBC) [Ratio] 17.6 % High 11.5-15.0 [facility] Comment on above: Performed By: #### 1 [id number], 34803614, 8283106 #### [facility] (DEFAULT) [address] [place] [address] Hematocrit (Bld) [Volume fraction] 27.4 % Low 33.7-40.4 [facility] Comment on above: Performed By: #### 1 [id number], 04940448, 9960116 #### [facility] (DEFAULT) [address] [place] [address] Hemoglobin (Bld) [Mass/Vol] 8.1 g/dL Low 11.3-15.9 [facility] Comment on above: Performed By: #### 1 [id number], 15509488, 6140681 #### [facility] (DEFAULT) [address] [place] [address] Man Diff? Auto Normal [facility] Comment on above: Performed By: #### 1 [id number], 35505494, 1660699 #### [facility] (DEFAULT) [address] [place] [address] MCH (RBC) [Entitic mass] 24 pg Normal 24-34 [facility] Comment on above: Performed By: #### 1 [id number], 80753104, 9086354 #### [facility] (DEFAULT) [address] [place] [address] MCHC (RBC) [Mass/Vol] 30 g/dL Normal 26-37 [facility] Comment on above: Performed By: #### 1 [id number], 09330791, 9606125 #### [facility] (DEFAULT) [address] [place] [address] MCV (RBC) [Entitic vol] 80 fL Low 81-100 [facility] Comment on above: Performed By: #### 1 [id number], 38888228, 8456365 #### [facility] (DEFAULT) [address] [place] [address] Platelet mean volume (Bld) [Entitic vol] 10.8 fL High 6.3-10.2 [facility] Comment on above: Performed By: #### 1 [id number], 95878242, 2927035 #### [facility] (DEFAULT) [address] [place] [address] 83289 Platelets (Bld) [#/Vol] 186 x10 Normal 138-427 [facility] Comment on above: Performed By: #### 1 [id number], 78290759, 0026496 #### [facility] (DEFAULT) [address] [place] [address] 74943 RBC (Bld) [#/Vol] 3.42 x10 Low 3.70-5.30 [facility] Comment on above: Performed By: #### 1 [id number], 35618597, 1198094 #### [facility] (DEFAULT) [address] [place] [address] 66800 WBC (Bld) [#/Vol] 6.8 x10 Normal 3.5-10.5 [facility] Comment on above: Performed By: #### 1 [id number], 58955104, 0887426 #### [facility] (DEFAULT) [address] [place] [address] 25853 Electrolyte Panel Standardon 05-25-2020 Anion gap [Moles/Vol] 12.0 mmol/L Normal 5.0-19.0 [facility] Comment on above: Performed By: #### 1 [id number], 64084814, 4446241 #### [facility] (DEFAULT) [address] [place] [address] 90271 Chloride [Moles/Vol] 102 mmol/L Normal 101-111 [facility] Comment on above: Performed By: #### 1 [id number], 96139748, 6743182 #### [facility] (DEFAULT) [address] [place] [address] 71535 CO2 [Moles/Vol] 28 mmol/L Normal 21-32 [facility] Comment on above: Performed By: #### 1 [id number], 85090317, 1718625 #### [facility] (DEFAULT) [address] [place] [address] 86576 Potassium [Moles/Vol] 4.0 mmol/L Normal 3.6-5.1 [facility] Comment on above: Performed By: #### 1 [id number], 14581246, 7034565 #### [facility] (DEFAULT) [address] [place] [address] Sodium [Moles/Vol] 138.0 mmol/L Normal 136.0-144 . 0 [facility] Comment on above: Performed By: #### 1 710661871, 45604936, 3294609 #### [facility] (DEFAULT) [address] [place] [address] 33254 PTon 05-25-2020 INR Coag (PPP) [Relative time] 1.89 {INR} High 0.91-1.11 [facility] Comment on above: Performed By: #### 1 [id number], 46099355, 6860399 #### [facility] (DEFAULT) [address] [place] [address] 86152 PT Coag (PPP) [Time] 18.6 second(s) High 9.7-11.8 [facility] Comment on above: Performed By: #### 1 [id number], 58959314, 7789521 #### [facility] (DEFAULT) [address] [place] [address] Progress Note - Nurseon 04-29 Progress Note [...] 05/25/2020 18:51 EDT] Jessica Abernathy RN Normal [facility] Progress Note - Nurse Unable to get mask to fit correctly so placed on 2 L overnight. [Electronically Signed on: 05/25/2020 01:45 EDT] Lyndsay Lou RN [Verified on: 05/25/2020 01:45 EDT] Lyndsay Lou RN [facility] Progress Note - Nurse Pt asleep with cpap mask off, woke her to put it back on. [Electronically Signed on: 05/25/2020 01:33 EDT] Lyndsay Lou RN [Verified on: 05/25/2020 01:33 EDT] Lyndsay Lou RN [facility] Progress Note - Nurse Pt up to bedside commode with 2 assist and walker, transfers very poorly and reports alot of knee pain. [Electronically Signed on: 05/25/2020 00:22 EDT] Lyndsay Lou RN [Verified on: 05/25/2020 00:22 EDT] Lyndsay Lou RN [facility] RBC.on 05-25-2020 RBC (Bld) [#/Vol] # of Units: 1 RBC Indication: Post-Op Bleed Additional Units?: No Date Needed: 05/25/2002 Red Cell Status: RBC Ready [facility] Comment on above: Performed By: #### 1 [id number], 02039793, 2807085 #### [facility] (DEFAULT) [address] [place] [address] .Auto Diff 05-24-2020 Auto [place] % 9 % Normal 1-12 [facility] Comment on above: Performed By: #### 1 [id number], 75099242, 3887348 #### [facility] (DEFAULT) [address] [place] [address] Baso Abs# 0.0 x10 Normal 0.0-0.2 [facility] Comment on above: Performed By: #### 1 [id number], 61117863, 0930176 #### [facility] (DEFAULT) [address] [place] [address] Basophils/100 WBC (Bld) 0.2 % Normal 0.2-2.0 [facility] Comment on above: Performed By: #### 1 [id number], 66438082, 9968687 #### [facility] (DEFAULT) [address] [place] [address] Eos Abs# 0.0 x10 Normal 0.0-0.4 [facility] Comment on above: Performed By: #### 1 [id number], 29290297, 8648593 #### [facility] (DEFAULT) [address] [place] [address] Eosinophils/100 WBC (Bld) 0.0 % Low 0.9-4.0 [facility] Comment on above: Performed By: #### 1 [id number], 24518814, 7485023 #### [facility] (DEFAULT) [address] [place] [address] Lymphocytes (Bld) [#/Vol] 0.7 x10 Low 1.3-2.9 [facility] Comment on above: Performed By: #### 1 [id number], 39347454, 1922493 #### [facility] (DEFAULT) [address] [place] [address] Lymphocytes/100 WBC (Bld) 6 % Low 14-48 [facility] Comment on above: Performed By: #### 1 [id number], 41396501, 5457296 #### [facility] (DEFAULT) [address] [place] [address] 67968 [place] Abs# 0.9 x10 High 0.0-0.8 [facility] Comment on above: Performed By: #### 1 577546472, 21187398, 7165447 #### [facility] (DEFAULT) [address] [place] [address] 91820 Neut Abs# 8.7 x10 Normal 1.5-9.2 [facility] Comment on above: Performed By: #### 1 400087881, 15879948, 9066699 #### [facility] (DEFAULT) [address] [place] [address] Neutrophils/100 WBC (Bld) 84 % Normal 44-88 [facility] Comment on above: Performed By: #### 1 414961456, 26854290, 4653846 #### [facility] (DEFAULT) [address] [place] [address]30[facility] Standard 05-24-2020 eGFR Non AA >60 [facility] Comment on above: Performed By: #### 1 [id number], 40897399, 9447742 #### [facility] (DEFAULT) [address] [place] [address] eGFR AA >60 [facility] Comment on above: Result Comment: Licensed Physical Therapy Assistant ghazal Kidney disease could be indicated at eGFRs of less than 60 ml/min/1.73m2. Kidney Failure is indicated at less than 15 ml/min/1.73m2 Performed By: #### 1 [id number], 29816074, 0584655 #### [facility] (DEFAULT) [address] [place] [address] 88443 Anion gap [Moles/Vol] 13.0 mmol/L Normal 5.0-19.0 [facility] Comment on above: Performed By: #### 1 228773217, 36965383, 2078411 #### [facility] (DEFAULT) [address] [place] [address] 95884 Calcium [Mass/Vol] 8.5 mg/dL Low 8.9-10.3 [facility] Comment on above: Performed By: #### 1 [id number], 38841567, 0734364 #### [facility] (DEFAULT) [address] [place] [address] 96650 Chloride [Moles/Vol] 102 mmol/L Normal 101-111 [facility] Comment on above: Performed By: #### 1 620797563, 79787333, 8731662 #### [facility] (DEFAULT) [address] [place] [address] 48949 CO2 [Moles/Vol] 27 mmol/L Normal 21-32 [facility] Comment on above: Performed By: #### 1 [id number], 90510905, 5695506 #### [facility] (DEFAULT) [address] [place] [address] 66294 Creatinine [Mass/Vol] 0.57 mg/dL Low 0.60-1.30 [facility] Comment on above: Performed By: #### 1 [id number], 66051928, 4092773 #### [facility] (DEFAULT) [address] [place] [address] 48500 Glucose [Mass/Vol] 134.0 mg/dL High 74.0-118.0 [facility] Comment on above: Performed By: #### 1 [id number], 58143142, 0045347 #### [facility] (DEFAULT) [address] [place] [address] 71553 Osmolality [Osmolality] 280 mOsm/L [facility] Comment on above: Performed By: #### 1 [id number], 22126780, 4035001 #### [facility] (DEFAULT) [address] [place] [address] 94078 Potassium [Moles/Vol] 4.4 mmol/L Normal 3.6-5.1 [facility] Comment on above: Performed By: #### 1 [id number], 65023470, 1240595 #### [facility] (DEFAULT) [address] [place] [address] 89192 Sodium [Moles/Vol] 138.0 mmol/L Normal 136.0-144 . 0 [facility] Comment on above: Performed By: #### 1 [id number], 67920905, 6021548 #### [facility] (DEFAULT) [address] [place] [address] 56053 Urea nitrogen [Mass/Vol] 19 mg/dL Normal 8-26 [facility] Comment on above: Performed By: #### 1 [id number], 49381217, 3853843 #### [facility] (DEFAULT) [address] [place] [address] 89597 Urea nitrogen/Creatinin e [Mass ratio] 33.0 mg/mg High 4.6-16.2 [facility] Comment on above: Performed By: #### 1 [id number], 47799895, 7906501 #### [facility] (DEFAULT) [address] [place] [address] 73080 CBC w/ Auto Diffon 0 Erythrocyte distribution width (RBC) [Ratio] 17.4 % High 11.5-15.0 [facility] Comment on above: Performed By: #### 7 513227, 93942789, [id number] #### [facility] (DEFAULT) [address] [place] [address] Hematocrit (Bld) [Volume fraction] 29.3 % Low 33.7-40.4 [facility] Comment on above: Performed By: #### 7 435255, 07512190, [id number] #### [facility] (DEFAULT) [address] [place] [address] 89930 Hemoglobin (Bld) [Mass/Vol] 8.7 g/dL Low 11.3-15.9 [facility] Comment on above: Performed By: #### 7 047771, 03627217, [id number] #### [facility] (DEFAULT) [address] [place] [address] 78276 Man Diff? Auto Normal [facility] Comment on above: Performed By: #### 7 881897, 28265177, [id number] #### [facility] (DEFAULT) [address] [place] [address] 88048 MCH (RBC) [Entitic mass] 24 pg Normal 24-34 [facility] Comment on above: Performed By: #### 7 708647, 45525324, [id number] #### [facility] (DEFAULT) [address] [place] [address] MCHC (RBC) [Mass/Vol] 30 g/dL Normal 26-37 [facility] Comment on above: Performed By: #### 7 134733, 11746877, [id number] #### [facility] (DEFAULT) [address] [place] [address] MCV (RBC) [Entitic vol] 81 fL Normal 81-100 [facility] Comment on above: Performed By: #### 7 363737, 53621863, [id number] #### [facility] (DEFAULT) [address] [place] [address] Platelet mean volume (Bld) [Entitic vol] 10.6 fL High 6.3-10.2 [facility] Comment on above: Performed By: #### 7 193521, 37487294, [id number] #### [facility] (DEFAULT) [address] [place] [address] Platelets (Bld) [#/Vol] 211 x10 Normal 138-427 [facility] Comment on above: Performed By: #### 7 006231, 49250472, [id number] #### [facility] (DEFAULT) [address] [place] [address] 46967 RBC (Bld) [#/Vol] 3.63 x10 Low 3.70-5.30 [facility] Comment on above: Performed By: #### 7 350120, 06001114, [id number] #### [facility] (DEFAULT) [address] [place] [address] 38843 WBC (Bld) [#/Vol] 10.4 x10 Normal 3.5-10.5 [facility] Comment on above: Performed By: #### 7 847535, 95401849, [id number] #### [facility] (DEFAULT) [address] [place] [address] Nutrition Noteon 05-24-2020 Nutrition Note Diet ordered as 3000 kcal, DM w/ Boost Glucose Control BID. Diet adjusted to 2gr Na to reflect Pts home diet and supplement changed to Ensure Compact BID which is available in house. Pt does not have DM. Will continue to monitor. Normal [facility] [facility] INR Coag (PPP) [Relative time] 1.21 {INR} High 0.91-1.11 [facility] Comment on above: Performed By: #### 1 [id number], [id number], [id number] #### [facility] (DEFAULT) [address] [place] [address] 64089 PT Coag (PPP) [Time] 12.3 second(s) High 9.7-11.8 [facility] Comment on above: Performed By: #### 1 [id number], [id number], [id number] #### [facility] (DEFAULT) [address] [place] [address] 28723 Pharmacy Noteon 05-24-2020 Pharmacy Note I have [...] [Verified on: 05/24/2020 16:28 EDT] Kellee Molina [facility] Progress Note - Nurseon 06-2 Progress Note - Nurse pts pain becming worse. giving 10mg oxy po every four hours, polar care in place and dr epperson notified of pain not controlled. will administer po gabepentin per order. will continue to monitor [Electronically Signed on: 05/24/2020 17:20 EDT] Jessica Abernathy RN [Verified on: 05/24/2020 17:20 EDT] Jessica Abernathy RN [facility] Progress Note - Nurse pt requires assistance getting in and out of bed. still a little stiff from surgery but does ok once up w the walker. pain so far has been controlled w 10 mg po oxy. [Electronically Signed on: 05/24/2020 10:54 EDT] Jessica Abernathy RN [Verified on: 05/24/2020 10:54 EDT] Jessica Abernathy RN [facility] ABORhon 05-23-2020 ABO and Rh group Nom (d) Hx Check: Not Found Anti-A: 4+ Anti-B: 0 Anti-D: 4+ DCon: NT A1: mf+ B: 4+ ABORh Interp: A [facility] Comment on above: Performed By: #### 7 [id number], [id number], [id number] #### [facility] (DEFAULT) [address] [place] [address] 85877 ABORh Retypeon 05-23-2020 ABO and group Nom (d) Ordered by Discern. Anti-A: 4+ Anti-B: 0 Anti-D: 4+ DCon: NT A1: mf+ B: 4+ ABORh Retype: A [facility] Comment on above: Performed By: #### 7 [id number], [id number], [id number] #### [facility] (DEFAULT) [address] [place] [address] 95555 ABSC Gelon 05-23-2020 ABSC Gel Negative [facility] Comment on above: Performed By: #### 7 692776, [id number], [id number] #### [facility] (DEFAULT) [address] [place] [address] Anesthesia Noteon 05-23-2020 Anesthesia Note Patient: KEY [...] history): All Problems Anemia / SNOMED CT 870445394 / Confirmed At risk of pressure sore / SNOMED CT 261568706 / Confirmed Cardiomyopathy / SNOMED CT 537118266 / Confirmed DVT (deep venous thrombosis) / SNOMED CT 615892903 / Confirmed GERD (gastroesophageal reflux disease) / SNOMED CT 675284907 / Confirmed Hyperlipidemia / SNOMED CT 68282432 / Confirmed Hypertension / SNOMED CT 5580457830 / Confirmed Lumbar spondylosis / SNOMED CT 317491324 / Confirmed Mass / SNOMED CT 642766292 / Confirmed KERMIT (obstructive sleep apnea) / SNOMED CT 595272301 / Confirmed Pulmonary hypertension / SNOMED CT 466358805 / Confirmed Seizure / SNOMED CT 609059708 / Confirmed Venous insufficiency / SNOMED CT 291257677 / Confirmed Resolved: Adrenal adenoma / SNOMED CT 462541766 Resolved: Pulmonary emboli / SNOMED CT 92990923 Histories Family History: Diabetes mellitus Sister Heart attack Father Leukemia Father Stroke.... Mother Procedure history: Cholecystectomy (52352941). Colectomy (01215592). Colonoscopy (243598836). [place] filter (955686520). Femur fracture, right (96346848). Shoulder (32797652). Comments: 02/08/2020 9:57 Stacy Reynolds RN torn rotator cuff 02/08/2020 7:28 Stacy Reynolds RN arthroplasty Knee arthroplasty (114429230). Craniotomy (27976086). Laminectomy (0761567589). Comments: 02/08/2020 7:30 Stacy Reynolds RN foraminotomy, facetectomy with decompression and fusion Cataract (451132036). Social History Electronic Cigarette/Vaping Assessment Electronic Cigarette [...] Oriented. Review / Management Laboratory Results Plan [place] [employer]hesiologists#(ASA) physical status classification: Class [...] 05/23/2020 13:34 EDT] Maico Sandhu DO Normal [facility] Blood Bank IDon 05-23-2020 Blood Bank ID BBID: [id number] [facility] Comment on above: Performed By: #### 7 [id number], [id number], [id number] #### [facility] (DEFAULT) [address] [place] [address] Extra [place] 05-23-2020 Tube Collected Yes [facility] Comment on above: Performed By: #### 7 465277, 93237022, [id number] #### [facility] (DEFAULT) [address] [place] [address] Tube Collected Yes [facility] Comment on above: Performed By: #### 7 382748, 91657696, [id number] #### [facility] (DEFAULT) [address] [place] [address] Hgbon 05-23-2020 Hemoglobin (Bld) [Mass/Vol] 10.1 g/dL Low 11.3-15.9 [facility] Comment on above: Performed By: #### 7 588802, 46142161, [id number] #### [facility] (DEFAULT) [address] [place] [address] 19322 MAGR Intraoperative Recordon 05-23-2020 MAGR Intraoperative Record MAGR Intra-Op Record Summary Primary Physician: FERNANDO SILVA Finalized Date/Time: 05/23/20 16:19:21 Pt. Name: SANDRA TAVAREZ/Sex: 1940 FEMALE Med Rec #: [id number] Physician: FERNANDO SILVA Financial #: [id number] Pt. Type: I Room/Bed: [facility] Admit/Disch: 05/23/20 09:44:18 - Institution: Case Times [...] Role Performed Surgeon - Primary Anesthesiologist of Manager Services Record Time In 05/23/20 13:19:00 05/23/20 13:19:00 [...] RN Regina CST Role Performed Scrub Personnel Board Certified Orthodontist Board Certified Orthodontist Time In 05/23/20 13:19:00 05/23/20 13:19:00 05/23/20 [...] Implanted/Explanted By: Size 6.5mm 48mm 29MM ISADORA Financial Cost Analyst waleska [employer] Catalog # Lot Number [id number] Expiration Date 10/27/29 11/27/29 10/27/29 Serial Number REF [id number] [id number] 35 REF 5983 40 48 REF 5979 95 29 Device Identifier Human Readable CHASE Machine Readable CHASE MR Class Implant Usage Data Site Knee L Knee L Knee L Quantity 1 1 1 Reason for Explant Reason Not Retained Explant Disposition Molder Vacuum Sterility External Indicator Result Internal Indicator Results [...] C D 15MM ISADORA X 30MM L Financial Cost Analyst [employer] Catalog # Lot Number [id number] Expiration Date 02/25/30 01/25/25 08/27/29 Serial Number REF [id number] RE 59 62 30 10 REF 5099 12 15 Device Identifier Human Readable CHASE Machine Readable CHASE MR Class Implant Usage Data Site Knee L Knee L Knee L Quantity 1 1 1 Reason for Explant Reason Not Retained Explant Disposition Molder Vacuum Sterility External Indicator Result Internal Indicator Results [...] By: Size 29 MM ISADORA 4 D Financial Cost Analyst [employer] Catalog # Lot Number [id number] Expiration Date 09/27/27 09/25/29 07/28/26 Serial Number REF 42 [id number] 000 29 REF 5980 37 02 REF 00 [id number] Device Identifier Human Readable CHASE Machine Readable CHASE MR Class Implant Usage Data Site Knee L Knee L Knee L Quantity 1 1 1 Reason for Explant Reason Not Retained Explant Disposition Molder Vacuum Sterility External Indicator Result Internal Indicator Results [...] Date/Time Implanted/Explanted FERNANDO SILVA GEORGE By: Size Financial Cost Analyst WALESKA/BIOMET WALESKA/BIOMET Catalog # Lot Number [id number] Expiration Date 05/27/24 05/27/24 Serial Number REF [id number] REF [id number] Device Identifier Human Readable CHASE Machine Readable CHASE MR Class Implant Usage Data Site Knee L Knee L Quantity 1 1 Reason for Explant Reason Not Retained Explant Disposition Molder Vacuum Sterility External Indicator Result Internal Indicator Results [...] Signed By: Shanique Brown RN 05/23/20 16:19 [facility] MAGR Intraoperative Record MAGR Intra-Op Record Summary Primary Physician: Finalized Date/Time: 05/23/20 13:14:24 Pt. Name: SANDRA TAVAREZ Lyndsay ValdezB./Sex: 1940 FEMALE Med Rec #: [id number] Physician: FERNANDO SILVA Financial #: [id number] Pt. Type: I Room/Bed: [facility] Admit/Disch: 05/23/20 09:44:18 - Institution: Case Times [...] Warga, Laura RN Role Performed Anesthesiologist of Manager Services Manager Services Record Time In 05/23/20 12:58:00 05/23/20 12:58:00 [...] Signed By: Stacy Pena RN 05/23/20 13:14 [facility] MAGR PACU Recordon 0 MAGR PACU Record MAGR PACU Record [place] Physician: FERNANDO SILVA Finalized Date/Time: 05/23/20 16:49:56 Pt. Name: SANDRA TAVAREZ/Sex: 1940 FEMALE Med Rec #: [id number] Physician: FERNANDO SILVA Financial #: [id number] Pt. Type: I Room/Bed: [facility]/ Admit/Disch: 05/23/20 09:44:18 - Institution: PACU Case Times MAGR Entry 1 In PACU I 05/23/20 16:18:00 Discharge from PACU 05/23/20 16:51:00 I Last Modified By: Shanique Brown RN 05/23/20 16:49:54 Finalized By: Shanique Brown RN Document Signatures Signed By: Shanique Brown RN 06/26/20 16:49 [facility] Nutrition Noteon 05-23-2020 Nutrition Note Pt admitted [...] age greater than 65y and surgery. Normal [facility] PTon 05-23-2020 INR Coag (PPP) [Relative time] 1.22 {INR} High 0.91-1.11 [facility] Comment on above: Performed By: #### 7 367389, 32927868, [id number] #### [facility] (DEFAULT) [address] [place] [address] 83221 PT Coag (PPP) [Time] 12.4 second(s) High 9.7-11.8 [facility] Comment on above: Result Comment: Call ed Shira in Pre - Surg at 1059 Performed By: #### 7 818044, 21851774, [id number] #### [facility] (DEFAULT) [address] [place] [address] 05639 SARS-CoV-2 (COVID-19) PCRon 05-23-2020 COVID-19 PCR Not Detected Normal Not Detected [facility] Comment on above: Result Comment: perf ormed in house Results Called To Stacy in pre-surg By ARIADNA And Read Back For Confirmation On 05/23/2020 10:55:59 EDT Performed By: #### 7 749405, 01560309, [id number] #### [facility] (DEFAULT) [address] [place] [address] 73790 XR Knee One or Two Views Lef [...] Cardona 05/23/20 4:50 pm Technologist: Michelle BLANTON [facility] Progress Note - Nurseon 04-28 Progress Note - Nurse Chart reviewed by Dr. Maria and no new orders received. May proceed to surgery. [Electronically Signed on: 05/07/2020 15:56 EDT] Chrissie Contreras RN [Verified on: 05/07/2020 15:56 EDT] Chrissie Contreras RN [facility] Coding Summaryon 02-27-2020 Coding Summary CODING DATE: 020 [facility] STATUS: Home PAYOR: Medicare APC DESCRIPTION [...] Fang Revised Date Saved: 02/27/2020 01:41 pm [facility] Progress Note - Nurseon 01-26 Progress Note - Nurse Chart reviewed by Dr. Garcia and no new orders received. [Electronically Signed on: 02/12/2020 15:52 EDT] Chrissie Contreras RN [Verified on: 02/12/2020 15:52 EDT] Chrissie Contreras RN [facility] Provider Orderson 02-11-2020 Provider Orders [id number] [facility] C Urineon 02-10-2020 C Urine Urine Culture ordere d as a result of parameters set on specific urine dip and urine microsopic results. Mixed skin, or urogenital paddy. Clinically insignificant [facility] Comment on above: Performed By: #### 1 [id number], [id number], [id number] #### [facility] (DEFAULT) [address] [place] [address] .Auto Diff 1on 02-08-2020 Auto [place] % 12 % Normal 1-12 [facility] Comment on above: Performed By: #### 7 632498, 59292363, [id number] #### [facility] (DEFAULT) [address] [place] [address] 22501 Baso Abs# 0.0 x10 Normal 0.0-0.2 [facility] Comment on above: Performed By: #### 7 959082, 55910360, [id number] #### [facility] (DEFAULT) [address] [place] [address] 82332 Basophils/100 WBC (Bld) 0.4 % Normal 0.2-2.0 [facility] Comment on above: Performed By: #### 7 957430, 59929853, [id number] #### [facility] (DEFAULT) [address] [place] [address] Eos Abs# 0.1 x10 Normal 0.0-0.4 [facility] Comment on above: Performed By: #### 7 209821, 13633095, [id number] #### [facility] (DEFAULT) [address] [place] [address] 60199 Eosinophils/100 WBC (Bld) 1.9 % Normal 0.9-4.0 [facility] Comment on above: Performed By: #### 7 306073, 37486637, [id number] #### [facility] (DEFAULT) [address] [place] [address] 69558 Lymphocytes (Bld) [#/Vol] 1.0 x10 Low 1.3-2.9 [facility] Comment on above: Performed By: #### 7 062809, 36320184, [id number] #### [facility] (DEFAULT) [address] [place] [address] 74381 Lymphocytes/100 WBC (Bld) 22 % Normal 14-48 [facility] Comment on above: Performed By: #### 7 032841, 66343291, [id number] #### [facility] (DEFAULT) [address] [place] [address] 05869 [place] Abs# 0.6 x10 Normal 0.0-0.8 [facility] Comment on above: Performed By: #### 7 273212, 12551221, [id number] #### [facility] (DEFAULT) [address] [place] [address] 15139 Neut Abs# 3.0 x10 Normal 1.5-9.2 [facility] Comment on above: Performed By: #### 7 934665, 09177624, [id number] #### [facility] (DEFAULT) [address] [place] [address] 59377 Neutrophils/100 WBC (Bld) 64 % Normal 44-88 [facility] Comment on above: Performed By: #### 7 533038, 94327153, [id number] #### [facility] (DEFAULT) [address] [place] [address] 17533 BMP Standardon 02-08-2020 eGFR Non AA >60 [facility] Comment on above: Performed By: #### 7 321145, 00067941, [id number] #### [facility] (DEFAULT) [address] [place] [address] 91174 eGFR AA >60 [facility] Comment on above: Result Comment: Licensed Physical Therapy Assistant ghazal Kidney disease could be indicated at eGFRs of less than 60 ml/min/1.73m2. Kidney Failure is indicated at less than 15 ml/min/1.73m2 Performed By: #### 7 992510, 75378002, [id number] #### [facility] (DEFAULT) [address] [place] [address] 50385 Anion gap [Moles/Vol] 15.0 mmol/L Normal 5.0-19.0 [facility] Comment on above: Performed By: #### 7 940702, 83189850, [id number] #### [facility] (DEFAULT) [address] [place] [address] 16241 Calcium [Mass/Vol] 9.4 mg/dL Normal 8.9-10.3 [facility] Comment on above: Performed By: #### 7 010566, 41784763, [id number] #### [facility] (DEFAULT) [address] [place] [address] 04270 Chloride [Moles/Vol] 102 mmol/L Normal 101-111 [facility] Comment on above: Performed By: #### 7 335380, 99796776, [id number] #### [facility] (DEFAULT) [address] [place] [address] 96867 CO2 [Moles/Vol] 26 mmol/L Normal 21-32 [facility] Comment on above: Performed By: #### 7 476504, 66224396, [id number] #### [facility] (DEFAULT) [address] [place] [address] 16044 Creatinine [Mass/Vol] 0.64 mg/dL Normal 0.60-1.30 [facility] Comment on above: Performed By: #### 7 271205, 91031086, [id number] #### [facility] (DEFAULT) [address] [place] [address] 12430 Glucose [Mass/Vol] 112.0 mg/dL Normal 74.0-118.0 [facility] Comment on above: Performed By: #### 7 735957, 80747160, [id number] #### [facility] (DEFAULT) [address] [place] [address] 11907 Osmolality [Osmolality] 280 mOsm/L [facility] Comment on above: Performed By: #### 7 327005, 18341861, [id number] #### [facility] (DEFAULT) [address] [place] [address] 88598 Potassium [Moles/Vol] 4.1 mmol/L Normal 3.6-5.1 [facility] Comment on above: Performed By: #### 7 573308, 23959680, 1870351078 #### [facility] (DEFAULT) [address] [place] [address] Sodium [Moles/Vol] 139.0 mmol/L Normal 136.0-144 . 0 [facility] Comment on above: Performed By: #### 7 476945, 14192277, [id number] #### [facility] (DEFAULT) [address] [place] [address] 09996 Urea nitrogen [Mass/Vol] 19 mg/dL Normal 8-26 [facility] Comment on above: Performed By: #### 7 924850, 41377029, [id number] #### [facility] (DEFAULT) [address] [place] [address] 17883 Urea nitrogen/Creatinin e [Mass ratio] 30.0 mg/mg High 4.6-16.2 [facility] Comment on above: Performed By: #### 7 497045, 59308256, [id number] #### [facility] (DEFAULT) [address] [place] [address] 61478 CBC w/ Auto Diffon 0 Erythrocyte distribution width (RBC) [Ratio] 14.8 % Normal 11.5-15.0 [facility] Comment on above: Performed By: #### 7 235004, 68324111, [id number] #### [facility] (DEFAULT) [address] [place] [address] Hematocrit (Bld) [Volume fraction] 37.2 % Normal 33.7-40.4 [facility] Comment on above: Performed By: #### 7 618080, 64101772, [id number] #### [facility] (DEFAULT) [address] [place] [address] 04815 Hemoglobin (Bld) [Mass/Vol] 11.6 g/dL Normal 11.3-15.9 [facility] Comment on above: Performed By: #### 7 060783, 36931328, [id number] #### [facility] (DEFAULT) [address] [place] [address] 43416 Man Diff? Auto Normal [facility] Comment on above: Performed By: #### 7 433519, 02129600, [id number] #### [facility] (DEFAULT) [address] [place] [address] 26516 MCH (RBC) [Entitic mass] 26 pg Normal 24-34 [facility] Comment on above: Performed By: #### 7 714910, 45980262, [id number] #### [facility] (DEFAULT) [address] [place] [address] 70572 MCHC (RBC) [Mass/Vol] 31 g/dL Normal 26-37 [facility] Comment on above: Performed By: #### 7 692591, 24929651, [id number] #### [facility] (DEFAULT) [address] [place] [address] 54361 MCV (RBC) [Entitic vol] 83 fL Normal 81-100 [facility] Comment on above: Performed By: #### 7 510611, 64428569, [id number] #### [facility] (DEFAULT) [address] [place] [address] 84806 Platelet mean volume (Bld) [Entitic vol] 10.8 fL High 6.3-10.2 [facility] Comment on above: Performed By: #### 7 681911, 21032488, [id number] #### [facility] (DEFAULT) [address] [place] [address] 18817 Platelets (Bld) [#/Vol] 218 x10 Normal 138-427 [facility] Comment on above: Performed By: #### 7 572511, 43037589, [id number] #### [facility] (DEFAULT) [address] [place] [address] RBC (Bld) [#/Vol] 4.47 x10 Normal 3.70-5.30 [facility] Comment on above: Performed By: #### 7 360579, 01565923, [id number] #### [facility] (DEFAULT) [address] [place] [address] WBC (Bld) [#/Vol] 4.8 x10 Normal 3.5-10.5 [facility] Comment on above: Performed By: #### 7 382983, 59748482, [id number] #### [facility] (DEFAULT) [address] [place] [address] UA Zytam3ew 02-08-2020 RBC (U) [#/Vol] None Seen [facility] Comment on above: Order Comment: Urina lysis Microscopic order added on by [employer] Expert Rules system. Performed By: #### 1 [id number], 73449309, 5575274 #### [facility] (DEFAULT) [address] [place] [address] UA Bacteria 2+ [facility] Comment on above: Order Comment: Urina lysis Microscopic order added on by [employer] Expert Rules system. Performed By: #### 1 [id number], 22880643, 7251233 #### [facility] (DEFAULT) [address] [place] [address] UA Squam Epi Moderate Normal [facility] Comment on above: Order Comment: Urina lysis Microscopic order added on by [employer] Expert Rules system. Performed By: #### 1 [id number], 85260307, 1354178 #### [facility] (DEFAULT) [address] [place] [address] UA WBC 3-5 Normal [facility] Comment on above: Order Comment: Urina lysis Microscopic order added on by [employer] Expert Rules system. Performed By: #### 1 [id number], 72542268, [id number] #### [facility] (DEFAULT) [address] [place] [address] 44111 UA w Culture if Ind Standard on 02-08-2020 Breakpoint UA [facility] Comment on above: Performed By: #### 1 [id number], 84036309, 8663982 #### [facility] (DEFAULT) [address] [place] [address] 14299 Color (U) Yellow Normal [facility] Comment on above: Performed By: #### 1 [id number], 32925397, 8606566 #### [facility] (DEFAULT) [address] [place] [address] Culture? Yes Normal [facility] Comment on above: Performed By: #### 1 148190199, 30288592, 4261428 #### [facility] (DEFAULT) [address] [place] [address] 46267 Glucose (U) [Mass/Vol] Negative Normal [facility] Comment on above: Performed By: #### 1 [id number], 48659701, 6152078 #### [facility] (DEFAULT) [address] [place] [address] 28642 Ketones Ql (U) Negative Normal [facility] Comment on above: Performed By: #### 1 [id number], 76438305, 9225085 #### [facility] (DEFAULT) [address] [place] [address] 28391 Micro? Indicated [facility] Comment on above: Performed By: #### 1 815718922, 35764719, 3077383 #### [facility] (DEFAULT) [address] [place] [address] 35721 UA Bilirubin Negative Normal [facility] Comment on above: Performed By: #### 1 710182109, 63258262, 9379998 #### [facility] (DEFAULT) [address] [place] [address] 22786 UA Blood Negative Normal NEGATIVE [facility] Comment on above: Performed By: #### 1 034591346, 50038135, 5010604 #### [facility] (DEFAULT) [address] [place] [address] 71617 UA Clarity SL CLOUDY Abnormal CLEAR [facility] Comment on above: Performed By: #### 1 [id number], 09181310, 9309985 #### [facility] (DEFAULT) [address] [place] [address] 89902 UA Leuk Est TRACE Abnormal NEGATIVE [facility] Comment on above: Performed By: #### 1 177010670, 89203061, 0851189 #### [facility] (DEFAULT) [address] [place] [address] 01148 UA Nitrite Negative Normal NEGATIVE [facility] Comment on above: Performed By: #### 1 [id number], 24180609, 6310876 #### [facility] (DEFAULT) [address] [place] [address] 01822 UA pH 6.0 Normal 5-8 [facility] Comment on above: Performed By: #### 1 802668453, 24715604, 4598426 #### [facility] (DEFAULT) [address] [place] [address] 15739 UA Protein Negative Normal NEGATIVE [facility] Comment on above: Performed By: #### 1 565855740, 46180108, 6039100 #### [facility] (DEFAULT) [address] [place] [address] 82007 UA Spec Grav 1.025 Normal 1.001-1.[address] [place] [address] Comment on above: Performed By: #### 1 [id number], 70720764, 1685453 #### [facility] (DEFAULT) [address] [place] [address] 20049 UA Urobilinogen 0.2 mg/dL Normal 0.2-1.0 [facility] Comment on above: Performed By: #### 1 263544587, 38440418, 5937351 #### [facility] (DEFAULT) [address] [place] [address] 35341 Urine Source Clean Catch Normal [facility] Comment on above: Performed By: #### 1 [id number], 83659429, 5722037 #### [facility] (DEFAULT) [address] [place] [address] 40744 XR Knee Complete Left Standi ngon 02-08-2020 [...] Mcpherson 02/08/20 3:02 pm Technologist: Rony ANTONIO [facility] Vital Signs Date Time Vital Sign Value Performing Clinician Facility 08-12-2025 10:45-0400 Body height 152.4 cm Robert Ball DO Work Phone: [facility] 08-12-2025 10:45-0400 Body mass index (BMI) [Ratio] 54.6 kg/m2 Robert Ball DO Work Phone: [facility] 08-12-2025 10:45-0400 Body weight 126.77 kg Robert Ball DO Work Phone: [facility] 08-12-2025 10:45-0400 Diastolic blood pressure 85 mm[Hg] Robert Ball DO Work Phone: [facility] 08-12-2025 10:45-0400 Heart rate 81 /min Robert Ball DO Work Phone: [facility] 08-12-2025 10:45-0400 Respiratory rate 12 /min Robert Ball DO Work Phone: [facility] 08-12-2025 10:45-0400 Systolic blood pressure 135 mm[Hg] Robert Ball DO Work Phone: [facility] 06-18-2025 14:12-0400 Body height 152.4 cm Robert Ball DO Work Phone: [facility] 06-18-2025 14:12-0400 Body mass index (BMI) [Ratio] 53.8 kg/m2 Robert Ball DO Work Phone: [facility] 06-18-2025 14:12-0400 Body weight 125.19 kg Robert Ball DO Work Phone: [facility] 06-18-2025 14:12-0400 Diastolic blood pressure 73 mm[Hg] Robert Ball DO Work Phone: [facility] 06-18-2025 14:12-0400 Heart rate 76 /min Robert Ball DO Work Phone: [facility] 06-18-2025 14:12-0400 Respiratory rate 12 /min Robert Ball DO Work Phone: [facility] 06-18-2025 14:12-0400 Systolic blood pressure 160 mm[Hg] Robert Ball DO Work Phone: [facility] 06-14-2025 11:29-0400 Body height 152.4 cm Robert Ball DO Work Phone: [facility] 06-14-2025 11:29-0400 Body mass index (BMI) [Ratio] 53.8 kg/m2 Robert Ball DO Work Phone: [facility] 06-14-2025 11:29-0400 Body temperature 97.4 [degF] Robert Ball DO Work Phone: [facility] 06-14-2025 11:29-0400 Body weight 125.19 kg Robert Ball DO Work Phone: [facility] 06-14-2025 11:29-0400 Diastolic blood pressure 84 mm[Hg] Robert Ball DO Work Phone: [facility] 06-14-2025 11:29-0400 Heart rate 82 /min Robert Ball DO Work Phone: [facility] 06-14-2025 11:29-0400 SaO2% (BldA) [Mass fraction] 96 % Robert Ball DO Work Phone: [facility] 06-14-2025 11:29-0400 Systolic blood pressure 136 mm[Hg] Robert Ball DO Work Phone: [facility] 05-16-2025 12:03-0400 Body height 152.4 cm Robert Ball DO Work Phone: [facility] 05-16-2025 12:03-0400 Body mass index (BMI) [Ratio] 53.3 kg/m2 Robert Ball DO Work Phone: [facility] 05-16-2025 12:03-0400 Body weight 123.83 kg Robert Ball DO Work Phone: [facility] 05-16-2025 12:03-0400 Diastolic blood pressure 73 mm[Hg] Robert Ball DO Work Phone: [facility] 05-16-2025 12:03-0400 Heart rate 82 /min Robert Ball DO Work Phone: [facility] 05-16-2025 12:03-0400 Respiratory rate 12 /min Robert Ball DO Work Phone: [facility] 05-16-2025 12:03-0400 Systolic blood pressure 192 mm[Hg] Robert Ball DO Work Phone: [facility] 05-06-2025 13:26-0400 Body height 152.4 cm [facility] 05-06-2025 13:26-0400 Body mass index (BMI) [Ratio] 53.3 kg/m2 [facility] 05-06-2025 13:26-0400 Body weight 123.83 kg [facility] 05-06-2025 13:26-0400 Diastolic blood pressure 62 mm[Hg] [facility] 05-06-2025 13:26-0400 Heart rate 77 /min [facility] 05-06-2025 13:26-0400 Respiratory rate 12 /min [facility] 05-06-2025 13:26-0400 Systolic blood pressure 198 mm[Hg] [facility] 05-06-2025 12:07-0400 Diastolic blood pressure 82 mm[Hg] [facility] 05-06-2025 12:07-0400 Heart rate 75 /min [facility] 05-06-2025 12:07-0400 SaO2% (BldA) [Mass fraction] 96 % [facility] 05-06-2025 12:07-0400 Systolic blood pressure 142 mm[Hg] [facility] 04-15-2025 13:57-0400 Body height 152.4 cm [facility] 04-15-2025 13:57-0400 Body mass index (BMI) [Ratio] 53.4 kg/m2 [facility] 04-15-2025 13:57-0400 Body weight 124 kg [facility] 04-15-2025 13:57-0400 Diastolic blood pressure 84 mm[Hg] [facility] 04-15-2025 13:57-0400 Heart rate 77 /min [facility] 04-15-2025 13:57-0400 Respiratory rate 18 /min [facility] 04-15-2025 13:57-0400 SaO2% (BldA) [Mass fraction] 98 % [facility] 04-15-2025 13:57-0400 Systolic blood pressure 150 mm[Hg] [facility] 04-09-2025 10:22-0400 Body height 152.4 cm [facility] 04-09-2025 10:22-0400 Body mass index (BMI) [Ratio] 53.6 kg/m2 [facility] 04-09-2025 10:22-0400 Body weight 124.45 kg [facility] 04-09-2025 10:22-0400 Diastolic blood pressure 86 mm[Hg] [facility] 04-09-2025 10:22-0400 Heart rate 92 /min [facility] 04-09-2025 10:22-0400 Respiratory rate 12 /min [facility] 04-09-2025 10:22-0400 SaO2% (BldA) [Mass fraction] 98 % [facility] 04-09-2025 10:22-0400 Systolic blood pressure 159 mm[Hg] [facility] 03-20-2025 13:29-0400 Body height 152.4 cm Robert Ball DO Work Phone: [facility] 03-20-2025 13:29-0400 Body mass index (BMI) [Ratio] 53.6 kg/m2 Robert Ball DO Work Phone: [facility] 03-20-2025 13:29-0400 Body weight 124.73 kg Robert Ball DO Work Phone: [facility] 03-20-2025 13:29-0400 Diastolic blood pressure 80 mm[Hg] Robert Ball DO Work Phone: [facility] 03-20-2025 13:29-0400 Heart rate 88 /min Robert Ball DO Work Phone: [facility] 03-20-2025 13:29-0400 SaO2% (BldA) [Mass fraction] 97 % Robert Ball DO Work Phone: [facility] 03-20-2025 13:29-0400 Systolic blood pressure 116 mm[Hg] Robert Ball DO Work Phone: [facility] 02-26-2025 10:38-0400 Diastolic blood pressure 90 mm[Hg] Robert Ball DO Work Phone: [facility] 02-26-2025 10:38-0400 Heart rate 73 /min Robert Ball DO Work Phone: [facility] 02-26-2025 10:38-0400 SaO2% (BldA) [Mass fraction] 99 % Robert Ball DO Work Phone: [facility] 02-26-2025 10:38-0400 Systolic blood pressure 140 mm[Hg] Robert Ball DO Work Phone: [facility] 01-16-2025 13:05-0500 Diastolic blood pressure 98 mm[Hg] Robert Ball DO Work Phone: [facility] 01-16-2025 13:05-0500 Heart rate 76 /min Robert Ball DO Work Phone: [facility] 01-16-2025 13:05-0500 SaO2% (BldA) [Mass fraction] 98 % Robert Ball DO Work Phone: [facility] 01-16-2025 13:05-0500 Systolic blood pressure 150 mm[Hg] Robert Ball DO Work Phone: [facility] 01-04-2025 11:57-0500 Body height 162.56 cm Robert Ball DO Work Phone: [facility] 01-04-2025 11:57-0500 Body mass index (BMI) [Ratio] 48.1 kg/m2 Robert Ball DO Work Phone: [facility] 01-04-2025 11:57-0500 Body weight 127.14 kg Robert Ball DO Work Phone: [facility] 01-04-2025 11:57-0500 Diastolic blood pressure 77 mm[Hg] Robert Ball DO Work Phone: [facility] 01-04-2025 11:57-0500 Heart rate 96 /min Robert Ball DO Work Phone: [facility] 01-04-2025 11:57-0500 Respiratory rate 12 /min Robert Ball DO Work Phone: [facility] 01-04-2025 11:57-0500 Systolic blood pressure 169 mm[Hg] Robert Ball DO Work Phone: [facility] 12-26-2024 12:01-0500 Diastolic blood pressure 75 mm[Hg] Robert Ball DO Work Phone: [facility] 12-26-2024 12:01-0500 Heart rate 70 /min Robert Ball DO Work Phone: [facility] 12-26-2024 12:01-0500 Respiratory rate 16 /min Robert Ball DO Work Phone: [facility] 12-26-2024 12:01-0500 SaO2% (BldA) [Mass fraction] 96 % Robert Ball DO Work Phone: [facility] 12-26-2024 12:01-0500 Systolic blood pressure 133 mm[Hg] Robert Ball DO Work Phone: [facility] 12-26-2024 11:26-0500 Inhaled oxygen flow rate 4 L/min Robert Ball DO Work Phone: [facility] 12-26-2024 09:15-0500 Body height 152.4 cm Robert Ball DO Work Phone: [facility] 12-26-2024 09:15-0500 Body weight 122.46 kg Robert Ball DO Work Phone: [facility] 12-12-2024 13:50-0500 Body height 162.56 cm [facility] 12-12-2024 13:50-0500 Body mass index (BMI) [Ratio] 48.1 kg/m2 [facility] 12-12-2024 13:50-0500 Body weight 127.26 kg [facility] 12-12-2024 13:50-0500 Diastolic blood pressure 72 mm[Hg] [facility] 12-12-2024 13:50-0500 Heart rate 89 /min [facility] 12-12-2024 13:50-0500 Respiratory rate 16 /min [facility] 12-12-2024 13:50-0500 Systolic blood pressure 134 mm[Hg] [facility] 12-10-2024 13:38-0500 Body height 162.56 cm [facility] 12-10-2024 13:38-0500 Body mass index (BMI) [Ratio] 48.2 kg/m2 [facility] 12-10-2024 13:38-0500 Body weight 127.45 kg [facility] 12-10-2024 13:38-0500 Diastolic blood pressure 70 mm[Hg] [facility] 12-10-2024 13:38-0500 Heart rate 88 /min [facility] 12-10-2024 13:38-0500 SaO2% (BldA) [Mass fraction] 98 % [facility] 12-10-2024 13:38-0500 Systolic blood pressure 136 mm[Hg] [facility] 12-07-2024 11:02-0500 Body height 162.56 cm [facility] 12-07-2024 11:02-0500 Body mass index (BMI) [Ratio] 48.3 kg/m2 [facility] 12-07-2024 11:02-0500 Body weight 127.68 kg [facility] 12-07-2024 11:02-0500 Diastolic blood pressure 87 mm[Hg] [facility] 12-07-2024 11:02-0500 Heart rate 96 /min [facility] 12-07-2024 11:02-0500 Respiratory rate 12 /min [facility] 12-07-2024 11:02-0500 Systolic blood pressure 177 mm[Hg] [facility] 09-04-2024 09:46-0400 Diastolic blood pressure 80 mm[Hg] DO Robert Ball Work Phone: [facility] 09-04-2024 09:46-0400 Heart rate 73 /min DO Robert Ball Work Phone: [facility] 09-04-2024 09:46-0400 SaO2% (BldA) [Mass fraction] 97 % DO Robert Ball Work Phone: [facility] 09-04-2024 09:46-0400 Systolic blood pressure 130 mm[Hg] DO Robert Ball Work Phone: [facility] 08-24-2024 11:03-0400 Heart rate 97 /min DO Robert Ball Work Phone: [facility] 08-24-2024 11:03-0400 SaO2% (BldA) [Mass fraction] 96 % DO Robert Ball Work Phone: [facility] 08-10-2024 14:18-0400 Diastolic blood pressure 66 mm[Hg] DO Robert Ball Work Phone: [facility] 08-10-2024 14:18-0400 Heart rate 73 /min DO Robert Ball Work Phone: [facility] 08-10-2024 14:18-0400 Respiratory rate 16 /min DO Robert Ball Work Phone: [facility] 08-10-2024 14:18-0400 SaO2% (BldA) [Mass fraction] 98 % DO Robert Ball Work Phone: [facility] 08-10-2024 14:18-0400 Systolic blood pressure 124 mm[Hg] DO Robert Ball Work Phone: [facility] 08-10-2024 12:13-0400 Body height 152.4 cm DO Robert Ball Work Phone: [facility] 08-10-2024 12:13-0400 Body weight 120.2 kg DO Robert Ball Work Phone: [facility] 08-06-2024 10:49-0400 Body height 152.4 cm DO Robert Ball Work Phone: [facility] 08-06-2024 10:49-0400 Body mass index (BMI) [Ratio] 54.5 kg/m2 DO Robert Ball Work Phone: [facility] 08-06-2024 10:49-0400 Body weight 126.6 kg DO Robert Ball Work Phone: [facility] 08-06-2024 10:49-0400 Diastolic blood pressure 78 mm[Hg] DO Robert Ball Work Phone: [facility] 08-06-2024 10:49-0400 Heart rate 65 /min DO Robert Ball Work Phone: [facility] 08-06-2024 10:49-0400 Respiratory rate 12 /min DO Robert Ball Work Phone: [facility] 08-06-2024 10:49-0400 Systolic blood pressure 159 mm[Hg] DO Robert Ball Work Phone: [facility] 07-31-2024 11:13-0400 Diastolic blood pressure 80 mm[Hg] DO Robert Ball Work Phone: [facility] 07-31-2024 11:13-0400 Heart rate 71 /min DO Robert Ball Work Phone: [facility] 07-31-2024 11:13-0400 SaO2% (BldA) [Mass fraction] 97 % DO Robert Ball Work Phone: [facility] 07-31-2024 11:13-0400 Systolic blood pressure 132 mm[Hg] DO Robert Ball Work Phone: [facility] 05-28-2024 14:21-0400 Body height 152.4 cm DO Robert Ball Work Phone: [facility] 05-28-2024 14:21-0400 Body mass index (BMI) [Ratio] 52.1 kg/m2 DO Robert Ball Work Phone: [facility] 05-28-2024 14:21-0400 Body weight 121.1 kg DO Robert Ball Work Phone: [facility] 05-28-2024 14:21-0400 Diastolic blood pressure 70 mm[Hg] DO Robert Ball Work Phone: [facility] 05-28-2024 14:21-0400 Heart rate 68 /min DO Robert Ball Work Phone: [facility] 05-28-2024 14:21-0400 Respiratory rate 18 /min DO Robert Ball Work Phone: [facility] 05-28-2024 14:21-0400 SaO2% (BldA) [Mass fraction] 98 % DO Robert Ball Work Phone: [facility] 05-28-2024 14:21-0400 Systolic blood pressure 132 mm[Hg] DO Robert Ball Work Phone: [facility] 04-30-2024 15:05-0400 Diastolic blood pressure 70 mm[Hg] [facility] 04-30-2024 15:05-0400 Heart rate 98 /min [facility] 04-30-2024 15:05-0400 SaO2% (BldA) [Mass fraction] 97 % [facility] 04-30-2024 15:05-0400 Systolic blood pressure 126 mm[Hg] [facility] 03-29-2024 10:44-0400 Body height 152.4 cm [facility] 03-29-2024 10:44-0400 Body mass index (BMI) [Ratio] 53.6 kg/m2 [facility] 03-29-2024 10:44-0400 Body weight 124.45 kg [facility] 03-29-2024 10:44-0400 Diastolic blood pressure 71 mm[Hg] [facility] 03-29-2024 10:44-0400 Heart rate 75 /min [facility] 03-29-2024 10:44-0400 Respiratory rate 16 /min [facility] 03-29-2024 10:44-0400 Systolic blood pressure 116 mm[Hg] [facility] 02-15-2024 14:20-0400 Body height 152.4 cm DO Robert Ball Work Phone: [facility] 02-15-2024 14:20-0400 Body mass index (BMI) [Ratio] 53.1 kg/m2 DO Robert Ball Work Phone: [facility] 02-15-2024 14:20-0400 Body weight 123.37 kg DO Robert Ball Work Phone: [facility] 02-15-2024 14:20-0400 Diastolic blood pressure 65 mm[Hg] DO Robert Ball Work Phone: [facility] 02-15-2024 14:20-0400 Heart rate 77 /min DO Robert Ball Work Phone: [facility] 02-15-2024 14:20-0400 Respiratory rate 16 /min DO Robert Ball Work Phone: [facility] 02-15-2024 14:20-0400 Systolic blood pressure 170 mm[Hg] DO Robert Ball Work Phone: [facility] 09-21-2023 14:00-0400 Body height 152.4 cm Robert Ball Other [facility] Other 09-21-2023 14:00-0400 Body mass index (BMI) [Ratio] 52.69 kg/m2 Robert Ball Other [facility] Other 09-21-2023 14:00-0400 Body weight 122.38 kg Robert Ball Other [facility] Other 09-21-2023 14:00-0400 Diastolic blood pressure 70 mm[Hg] Robert Ball Other [facility] Other 09-21-2023 14:00-0400 Respiratory rate 20 /min Robert Ball Other [facility] Other 09-21-2023 14:00-0400 Systolic blood pressure 150 mm[Hg] Robert Ball Other [facility] Other 08-15-2023 15:00-0400 Body height 152.4 cm Robert Ball Other [facility] Other 08-15-2023 15:00-0400 Body mass index (BMI) [Ratio] 54.33 kg/m2 Rboert Ball Other [facility] Other 08-15-2023 15:00-0400 Body weight 126.19 kg Robert Ball Other [facility] Other 08-15-2023 15:00-0400 Diastolic blood pressure 79 mm[Hg] Robert Ball Other [facility] Other 08-15-2023 15:00-0400 Respiratory rate 16 /min Robert Ball Other [facility] Other 08-15-2023 15:00-0400 Systolic blood pressure 147 mm[Hg] Robert Ball Other [facility] Other 07-11-2023 11:00-0400 Body height 152.4 cm Robert Ball Other [facility] Other 07-11-2023 11:00-0400 Body mass index (BMI) [Ratio] 55.26 kg/m2 Robert Ball Other [facility] Other 07-11-2023 11:00-0400 Body weight 128.37 kg Robert Ball Other [facility] Other 07-11-2023 11:00-0400 Diastolic blood pressure 90 mm[Hg] Robert Ball Other [facility] Other 07-11-2023 11:00-0400 Respiratory rate 16 /min Robert Ball Other [facility] Other 07-11-2023 11:00-0400 Systolic blood pressure 140 mm[Hg] Robert Ball Other [facility] Other 05-25-2023 14:00-0400 Body height 152.4 cm Robert Ball Other [facility] Other 05-25-2023 14:00-0400 Body mass index (BMI) [Ratio] 54.25 kg/m2 Robert Ball Other [facility] Other 05-25-2023 14:00-0400 Body weight 126.01 kg Robert Ball Other [facility] Other 05-25-2023 14:00-0400 Diastolic blood pressure 76 mm[Hg] Robert Ball Other [facility] Other 05-25-2023 14:00-0400 Respiratory rate 16 /min Robert Ball Other [facility] Other 05-25-2023 14:00-0400 Systolic blood pressure 151 mm[Hg] Robert Ball Other [facility] Other 04-08-2023 12:15-0400 Body height 152.4 cm Robert Ball Other [facility] Other 04-08-2023 12:15-0400 Body mass index (BMI) [Ratio] 53.84 kg/m2 Robert Ball Other [facility] Other 04-08-2023 12:15-0400 Body weight 125.06 kg Robert Ball Other [facility] Other 04-08-2023 12:15-0400 Diastolic blood pressure 80 mm[Hg] Robert Ball Other [facility] Other 04-08-2023 12:15-0400 Respiratory rate 12 /min Robert Ball Other [facility] Other 04-08-2023 12:15-0400 Systolic blood pressure 124 mm[Hg] Robert Ball Other [facility] Other 03-23-2023 14:30-0400 Body height 152.4 cm Robert Ball Other [facility] Other 03-23-2023 14:30-0400 Body mass index (BMI) [Ratio] 53.82 kg/m2 Robert Ball Other [facility] Other 04-26-2023 14:30-0400 Body weight 125.01 kg Robert Ball Other [facility] Other 03-23-2023 14:30-0400 Diastolic blood pressure 84 mm[Hg] Robert Ball Other [facility] Other 03-23-2023 14:30-0400 Respiratory rate 12 /min Robert Ball Other [facility] Other 03-23-2023 14:30-0400 Systolic blood pressure 122 mm[Hg] Robert Ball Other [facility] Other 03-02-2023 12:00-0400 Body height 152.4 cm Robert Ball Other [facility] Other 03-02-2023 12:00-0400 Body mass index (BMI) [Ratio] 54.01 kg/m2 Robert Ball Other [facility] Other 03-02-2023 12:00-0400 Body weight 125.47 kg Robert Ball Other [facility] Other 03-02-2023 12:00-0400 Diastolic blood pressure 72 mm[Hg] Robert Ball Other [facility] Other 03-02-2023 12:00-0400 Respiratory rate 12 /min Robert Ball Other [facility] Other 03-02-2023 12:00-0400 Systolic blood pressure 122 mm[Hg] Robert Ball Other [facility] Other 02-14-2023 14:15-0400 Body height 152.4 cm Michael Dunaway Other [facility] Other 02-14-2023 14:15-0400 SaO2% (BldA) [Mass fraction] 98 % Michael Dunaway Other [facility] Other 01-27-2023 15:00-0500 Body height 152.4 cm Michael Dunaway Other [facility] Other 01-27-2023 15:00-0500 Diastolic blood pressure 84 mm[Hg] Michael Emelyn Other [facility] Other 01-27-2023 15:00-0500 SaO2% (BldA) [Mass fraction] 98 % Michael Dunaway Other [facility] Other 01-27-2023 15:00-0500 Systolic blood pressure 126 mm[Hg] Michael Emelyn Other [facility] Other 12-31-2022 12:30-0500 Body height 152.4 cm Michael Dunaway Other [facility] Other 12-31-2022 12:30-0500 SaO2% (BldA) [Mass fraction] 96 % Michael Dunaway Other [facility] Other 12-27-2022 11:15-0500 Body height 152.4 cm Ivon Batista Other [facility] Other 12-27-2022 11:15-0500 Body mass index (BMI) [Ratio] 53.08 kg/m2 Ivon Batista Other [facility] Other 12-27-2022 11:15-0500 Body temperature 96 [degF] Ivon Batista Other [facility] Other 12-27-2022 11:15-0500 Body weight 123.29 kg Ivon Batista Other [facility] Other 12-27-2022 11:15-0500 Diastolic blood pressure 92 mm[Hg] Ivon Batista Other [facility] Other 12-27-2022 11:15-0500 SaO2% (BldA) [Mass fraction] 96 % Ivon Batista Other [facility] Other 12-27-2022 11:15-0500 Systolic blood pressure 156 mm[Hg] Ivon Batista Other [facility] Other 12-02-2022 11:45-0500 Body height 152.4 cm Ursula Velarde Other [facility] Other 12-02-2022 11:45-0500 Diastolic blood pressure 80 mm[Hg] Usrula Velarde Other [facility] Other 12-02-2022 11:45-0500 SaO2% (BldA) [Mass fraction] 97 % Ursula Velarde Other [facility] Other 12-02-2022 11:45-0500 Systolic blood pressure 126 mm[Hg] Ursula Velarde Other [facility] Other 11-02-2022 12:15-0500 Body height 152.4 cm Michael Dunaway Other [facility] Other 11-02-2022 12:15-0500 Diastolic blood pressure 80 mm[Hg] Michael Dunaway Other [facility] Other 11-02-2022 12:15-0500 SaO2% (BldA) [Mass fraction] 98 % Michael Dunaway Other [facility] Other 11-02-2022 12:15-0500 Systolic blood pressure 140 mm[Hg] Michael Anthonyky Other [facility] Other 09-11-2022 11:55-0400 Body height 152.4 cm Kaitlynn Foy Other [facility] Other 09-11-2022 11:55-0400 Body mass index (BMI) [Ratio] 50.77 kg/m2 Kaitlynn Foy Other [facility] Other 09-11-2022 11:55-0400 Body temperature 96.8 [degF] Kaitlynn Foy Other [facility] Other 09-11-2022 11:55-0400 Body weight 117.94 kg Kaitlynn Foy Other [facility] Other 09-11-2022 11:55-0400 Respiratory rate 18 /min Kaitlynn Foy Other [facility] Other 09-11-2022 11:55-0400 SaO2% (BldA) [Mass fraction] 97 % Kaitlynn Foy Other [facility] Other 09-10-2022 12:30-0400 Body height 152.4 cm Michael Anthonyky Other [facility] Other 09-10-2022 12:30-0400 Diastolic blood pressure 80 mm[Hg] Michael Emelyn Other [facility] Other 09-10-2022 12:30-0400 SaO2% (BldA) [Mass fraction] 99 % Michael Emelyn Other [facility] Other 09-10-2022 12:30-0400 Systolic blood pressure 120 mm[Hg] Michael Emelyn Other [facility] Other 07-29-2022 17:45-0400 Body height 152.4 cm Michael Dunaway Other [facility] Other 07-29-2022 17:45-0400 Diastolic blood pressure 76 mm[Hg] Michael Emelyn Other [facility] Other 07-29-2022 17:45-0400 SaO2% (BldA) [Mass fraction] 99 % Michael Dunaway Other [facility] Other 07-29-2022 17:45-0400 Systolic blood pressure 124 mm[Hg] Michael Dunaway Other [facility] Other 07-02-2022 13:00-0400 Body height 152.4 cm Michael Dunaway Other [facility] Other 07-02-2022 13:00-0400 Body mass index (BMI) [Ratio] 53.97 kg/m2 Michael Dunaway Other [facility] Other 07-02-2022 13:00-0400 Body weight 125.38 kg Michael Dunaway Other [facility] Other 07-02-2022 13:00-0400 Diastolic blood pressure 88 mm[Hg] Michael Emelyn Other [facility] Other 07-02-2022 13:00-0400 SaO2% (BldA) [Mass fraction] 97 % Michael Dunaway Other [facility] Other 07-02-2022 13:00-0400 Systolic blood pressure 142 mm[Hg] Michael Dunaway Other [facility] Other 06-23-2022 12:52-0400 Diastolic blood pressure 64 mm[Hg] DO Robert Ball Work Phone: [facility] 06-23-2022 12:52-0400 Heart rate 73 /min DO Robert Ball Work Phone: [facility] 06-23-2022 12:52-0400 Respiratory rate 20 /min DO Robert Ball Work Phone: [facility] 06-23-2022 12:52-0400 SaO2% (BldA) [Mass fraction] 97 % DO Robert Ball Work Phone: [facility] 06-23-2022 12:52-0400 Systolic blood pressure 132 mm[Hg] DO Robert Ball Work Phone: [facility] 06-23-2022 12:16-0400 Inhaled oxygen flow rate 3 L/min DO Robert Ball Work Phone: [facility] 06-23-2022 10:24-0400 Body height 152.4 cm DO Robert Ball Work Phone: [facility] 06-23-2022 10:24-0400 Body weight 123.37 kg DO Robert Ball Work Phone: [facility] 06-18-2022 12:15-0400 Body height 152.4 cm Michael Dunaway Other [facility] Other 06-18-2022 12:15-0400 Body mass index (BMI) [Ratio] 53.19 kg/m2 Michael Emelyn Other [facility] Other 06-18-2022 12:15-0400 Body weight 123.56 kg Michael Dunaway Other [facility] Other 06-18-2022 12:15-0400 Diastolic blood pressure 78 mm[Hg] Michael Dunaway Other [facility] Other 06-18-2022 12:15-0400 SaO2% (BldA) [Mass fraction] 96 % Michael Dunaway Other [employer] Other 06-18-2022 12:15-0400 Systolic blood pressure 146 mm[Hg] Michael Dunaway Other [employer] Other 05-05-2022 06:31-0400 Body height 152.4 cm DO Robert Ball Work Phone: [facility] 05-05-2022 06:31-0400 Body mass index (BMI) [Ratio] 51.7 kg/m2 DO Robert Ball Work Phone: [facility] 05-05-2022 06:31-0400 Body weight 120.2 kg DO Robert Ball Work Phone: [facility] 03-11-2022 17:15-0400 Body height 152.4 cm Michael Dunaway Other [employer] Other 03-11-2022 17:15-0400 Diastolic blood pressure 70 mm[Hg] Michael Dunaway Other [employer] Other 03-11-2022 17:15-0400 SaO2% (BldA) [Mass fraction] 98 % Michael Anthonyky Other [employer] Other 03-11-2022 17:15-0400 Systolic blood pressure 144 mm[Hg] Michael Dunaway Other [employer] Other 03-04-2022 09:59-0400 Blood Pressure Location Taye NILL [facility] [place] 03-04-2022 09:59-0400 Diastolic blood pressure 82 mm[Hg] Taye NILL [facility] [place] 03-04-2022 09:59-0400 Heart rate 72 /min Taye NILL [facility] [place] 03-04-2022 09:59-0400 Respiratory rate 20 /min Taye NILL [facility] [place] 03-04-2022 09:59-0400 Systolic blood pressure 160 mm[Hg] Taye NILL [facility] [place] 02-18-2022 17:00-0400 Body height 152.4 cm Michael Dunaway Other [employer] Other 02-18-2022 17:00-0400 Body mass index (BMI) [Ratio] 53.51 kg/m2 Michael Dunaway Other [employer] Other 02-18-2022 17:00-0400 Body weight 124.29 kg Michael Dunaway Other [employer] Other 02-18-2022 17:00-0400 Diastolic blood pressure 70 mm[Hg] Michael Dunaway Other [employer] Other 02-18-2022 17:00-0400 SaO2% (BldA) [Mass fraction] 94 % Michael Dunaway Other [employer] Other 02-18-2022 17:00-0400 Systolic blood pressure 130 mm[Hg] Michael Dunaway Other [employer] Other 01-28-2022 17:00-0500 Body height 152.4 cm Usama Batista Other [employer] Other 01-28-2022 17:00-0500 Body mass index (BMI) [Ratio] 50.38 kg/m2 Usama Batista Other [employer] Other 01-28-2022 17:00-0500 Body weight 117.03 kg Usama Batista Other [employer] Other 11-07-2021 12:20-0500 Body height 152.4 cm Quita Iris Other [employer] Other 11-07-2021 12:20-0500 Body mass index (BMI) [Ratio] 50.38 kg/m2 Quita Simmons Other [employer] Other 11-07-2021 12:20-0500 Body temperature 97.9 [degF] Quita Iris Other [employer] Other 11-07-2021 12:20-0500 Body weight 117.03 kg Quita Iris Other [employer] Other 11-07-2021 12:20-0500 Diastolic blood pressure 71 mm[Hg] Quita Simmons Other [employer] Other 11-07-2021 12:20-0500 Respiratory rate 18 /min Quita Simmons Other [employer] Other 11-07-2021 12:20-0500 SaO2% (BldA) [Mass fraction] 96 % Quita Simmons Other [employer] Other 11-07-2021 12:20-0500 Systolic blood pressure 159 mm[Hg] Quita Simmons Other [employer] Other Encounters Encounter Date Encounter Type Care Provider Facility Start: 08-12-2025 End: 08-12-2025 ambulatory Robert Ball DO Work Phone: [facility] Work Phone: Start: 08-12-2025 End: 08-12-2025 Patient encounter procedure Robert Ball DO -[facility] Work Phone: Start: 06-18-2025 End: 06-18-2025 ambulatory Robert Ball DO Work Phone: [facility] Work Phone: Start: 06-18-2025 End: 06-18-2025 Patient encounter procedure Robert Ball DO -[facility] Work Phone: Start: 06-14-2025 End: 06-14-2025 ambulatory Robert Ball DO Work Phone: [facility] Work Phone: Start: 06-14-2025 End: 06-14-2025 Patient encounter procedure Morena Donato APRN AQUACULTURE DIRECTOR -[facility] Work Phone: Start: 05-16-2025 End: 05-16-2025 Patient encounter procedure Robert Ball DO -[facility] Work Phone: Start: 05-09-2025 End: [...] 05-07-2025 End: 05-07-2025 Bamboo flowsheet Gabriel Hagen [employer] [facility] Start: 05-07-2025 End: 05-07-2025 Bamboo flowsheet Gabriel Hagen [employer] [facility] Start: 05-07-2025 End: 05-07-2025 ambulatory Gabriel Hagen [employer] [facility] Comment on above: Low back pain, unspe cified back pain laterality, unspecified chronicity, unspecified whether sciatica present (Primary Dx) Start: 05-06-2025 End: 05-06-2025 ambulatory [facility] Work Phone: Start: 05-06-2025 End: 05-06-2025 Patient encounter procedure [facility] Work Phone: Start: 05-06-2025 End: 05-06-2025 [facility] Work Phone: Start: 05-06-2025 End: 05-06-2025 Patient encounter procedure [facility] Work Phone: Start: 05-03-2025 End: [...] 04-30-2025 End: 04-30-2025 Bamboo flowsheet Gabriel Hagen [employer] [facility] Start: 04-30-2025 End: 04-30-2025 Bamboo flowsheet Gabriel Hagen [employer] [facility] Start: 04-30-2025 End: 04-30-2025 ambulatory GABRIEL HAGEN [facility] Comment on above: Low back pain, unspe cified back pain laterality, unspecified chronicity, unspecified whether sciatica present (Primary Dx) Start: 04-26-2025 End: 04-26-2025 Bamboo flowsheet Gabriel Hagen [employer] [facility] Start: 04-26-2025 End: 04-26-2025 Bamboo flowsheet Gabriel Hagen [employer] [facility] Start: 04-26-2025 End: 04-26-2025 ambulatory Gabriel Hagen [employer] [facility] Comment on above: Low back pain, unspe cified back pain laterality, unspecified chronicity, unspecified whether sciatica present (Primary Dx) Start: 04-23-2025 End: 04-23-2025 ambulatory Gabriel Hagen [employer] [facility] Comment on above: Low back pain, unspe cified back pain laterality, unspecified chronicity, unspecified whether sciatica present (Primary Dx) Start: 04-23-2025 End: 04-23-2025 Bamboo flowsyuly Hagen [employer] [facility] Start: 04-23-2025 End: 04-23-2025 Bamboo flowsyuly Hagen [employer] [facility] Start: 04-19-2025 End: 04-19-2025 ambulatory JACQUI HARPER Not Available Start: 04-18-2025 Non-patient / Non-visit [facility] Work Phone: Start: 04-15-2025 End: 04-15-2025 Garettboo shiv Harper PT [facility] Start: 04-15-2025 End: 04-15-2025 Garettboo shiv Harper PT [facility] Start: 04-15-2025 End: 04-15-2025 Patient encounter procedure [facility] Work Phone: Start: 04-15-2025 End: [...] (Primary Dx) Start: 04-09-2025 End: 04-09-2025 ambulatory [facility] Work Phone: Start: 04-09-2025 End: 04-09-2025 Patient encounter procedure [facility] Work Phone: Start: 04-04-2025 End: 04-04-2025 ambulatory Gabriel Hagen [employer] [facility] Comment on above: Low back pain, unspe cified back pain laterality, unspecified chronicity, unspecified whether sciatica present (Primary Dx) Start: 04-04-2025 End: 04-04-2025 Bamboo flowsheet Gabriel Hagen [employer] [facility] Start: 04-04-2025 End: 04-04-2025 Bamboo flowsheet Gabriel Hagen [employer] [facility] Start: 04-01-2025 End: 04-01-2025 ambulatory Jacqui Harper PT [facility] Comment on above: Low back pain, unspe cified back pain laterality, unspecified chronicity, unspecified whether sciatica present (Primary Dx) Start: 03-28-2025 End: 03-28-2025 ambulatory [facility] Work Phone: Start: 03-28-2025 End: 03-28-2025 Patient encounter procedure [facility] Work Phone: Start: 03-21-2025 End: 03-21-2025 [...] 03-20-2025 ambulatory Robert Ball DO Work Phone: [facility] Work Phone: Start: 03-20-2025 End: 03-20-2025 Patient encounter procedure Robert Ball DO Work Phone: [facility] Work Phone: Start: 03-14-2025 End: 03-14-2025 Bamboo [...] 03-12-2025 ambulatory Robert Ball DO Work Phone: [facility] Work Phone: Start: 03-12-2025 End: 03-12-2025 Patient encounter procedure Robert Ball DO Work Phone: [facility] Work Phone: Start: 03-12-2025 Non-patient / Non-visit Robert Ball DO Work Phone: [facility] Work Phone: Start: 02-28-2025 End: 02-28-2025 Bamboo [...] 02-26-2025 ambulatory Robert Vail DO Work Phone: [facility] Work Phone: Start: 02-26-2025 End: 02-26-2025 Patient encounter procedure Robert Vail DO Work Phone: [facility] Work Phone: Start: 02-25-2025 End: 02-25-2025 Bamboo flowsheet Tierney Kelbley [employer] [facility] Start: 02-25-2025 End: 02-25-2025 Bamboo flowsheet Tierney Kelbley [employer] [facility] Start: 02-25-2025 End: 02-25-2025 ambulatory Tierney Kelbley [employer] [facility] Comment on above: Low back pain, unspe cified back pain laterality, unspecified chronicity, unspecified whether sciatica present (Primary Dx) Start: 02-21-2025 ambulatory Taye VAZQUEZ Facility:[facility]hel[facility] Start: 02-20-2025 End: 02-20-2025 Bamboo flowsheet Tierney Kelbley [employer] [facility] Start: 02-20-2025 End: 02-20-2025 Bamboo flowsheet Tierney Kelbley [employer] [facility] Start: 02-20-2025 End: 02-20-2025 ambulatory Tierney Kelbley [employer] [facility] Comment on above: Low back pain, unspe cified back pain laterality, unspecified chronicity, unspecified whether sciatica present (Primary Dx) Start: 02-14-2025 Non-patient / Non-visit Robert Vail DO Work Phone: [facility] Work Phone: Start: 02-14-2025 End: 02-14-2025 ambulatory Robert Vail DO Work Phone: [facility] Work Phone: Start: 02-14-2025 End: 02-14-2025 Patient encounter procedure Robert Vail DO Work Phone: [facility] Work Phone: Start: 02-13-2025 End: 02-13-2025 ambulatory GABRIEL HAGEN Not Available Start: 02-07-2025 End: 02-07-2025 Bamboo flowsheet Tierney Acuñabley [employer] [facility] Start: 02-07-2025 End: 02-07-2025 Bamboo flowsheet Tierneykathleen Johnsony [employer] [facility] Start: 02-07-2025 End: 02-07-2025 ambulatory Tierney Johnsony [employer] [facility] Comment on above: Low [...] Start: 01-21-2025 End: 01-21-2025 ambulatory Gabriel Hagen [employer] [facility] Comment on above: Low back pain, unspe cified back pain laterality, unspecified chronicity, unspecified whether sciatica present (Primary Dx) Start: 01-21-2025 End: 01-21-2025 Bamboo flowsheet Gabriel Hagen [employer] [facility] Start: 01-21-2025 End: 01-21-2025 Bamboo flowsheet Gabriel Hagen [employer] [facility] Start: 01-17-2025 End: 01-17-2025 Bamboo flowsheet Gabriel Hagen [employer] [facility] Start: 01-17-2025 End: 01-17-2025 Bamboo flowsheet Gabriel Hagen [employer] [facility] Start: 01-17-2025 End: 01-18-2025 ambulatory Gabriel Hagen [employer] [facility] Comment on above: Low back pain, unspe cified back pain laterality, unspecified chronicity, unspecified whether sciatica present (Primary Dx) Start: 01-16-2025 End: 01-16-2025 ambulatory Robert Ball DO Work Phone: [facility] Work Phone: Start: 01-16-2025 End: 01-16-2025 Patient encounter procedure Robert Ball DO Work Phone: [facility] Work Phone: Start: 01-14-2025 End: [...] Robert Ball DO Work Phone: [facility] Work Phone: Start: 01-04-2025 End: 01-04-2025 Patient encounter procedure Robert Ball DO Work Phone: [facility] Work Phone: Start: 12-26-2024 Non-patient / Non-visit Robert Ball DO Work Phone: [facility] Work Phone: Start: 12-26-2024 End: 12-26-2024 Admission to same day surgery center Robert Ball DO Work Phone: [facility] Work Phone: Start: 12-26-2024 End: 12-26-2024 ambulatory Robert Ball DO Work Phone: [facility] Work Phone: Start: 12-24-2024 End: 12-24-2024 ambulatory Robert Ball DO Work Phone: [facility] Work Phone: Start: 12-24-2024 End: 12-24-2024 Patient encounter procedure Robert Ball DO Work Phone: [facility] [place] Work Phone: Start: 12-12-2024 End: 12-12-2024 ambulatory [facility] Work Phone: Start: 12-12-2024 End: 12-12-2024 Patient encounter procedure [facility] Work Phone: Start: 12-12-2024 Non-patient / Non-visit [facility] Work Phone: Start: 12-10-2024 End: 12-10-2024 ambulatory [facility] Work Phone: Start: 12-10-2024 End: 12-10-2024 Patient encounter procedure [facility] Work Phone: Start: 12-07-2024 End: 12-07-2024 ambulatory [facility] Work Phone: Start: 12-07-2024 End: 12-07-2024 Patient encounter procedure [facility] Work Phone: Start: 09-04-2024 End: 09-04-2024 ambulatory DO Robert Ball Work Phone: [facility] Work Phone: Start: 09-04-2024 End: 09-04-2024 Patient encounter procedure DO Robert Ball Work Phone: [facility] Work Phone: Start: 08-28-2024 End: 08-28-2024 ambulatory DO Robert Ball Work Phone: [facility] Work Phone: Start: 08-28-2024 End: 08-28-2024 Patient encounter procedure DO Robert Ball Work Phone: [facility] Work Phone: Start: 08-28-2024 Non-patient / Non-visit DO Robert Ball Work Phone: [facility] Work Phone: Start: 08-24-2024 End: 08-24-2024 ambulatory DO Robert Ball Work Phone: [facility] Work Phone: Start: 08-24-2024 End: 08-24-2024 Patient encounter procedure DO Robert Ball Work Phone: [facility] Work Phone: Start: 08-10-2024 Non-patient / Non-visit DO Robert Ball Work Phone: [facility] Work Phone: Start: 08-10-2024 End: 08-10-2024 Admission to same day surgery center DO Robert Ball Work Phone: [facility] Work Phone: Start: 08-10-2024 End: 08-10-2024 ambulatory DO Robert Ball Work Phone: [facility] Work Phone: Start: 08-09-2024 End: 08-09-2024 Patient encounter procedure DO Robert Ball Work Phone: [facility] [place] Work Phone: Start: 08-09-2024 End: 08-09-2024 ambulatory DO Robert Ball Work Phone: [facility] Work Phone: Start: 08-06-2024 End: 08-06-2024 ambulatory DO Robert Ball Work Phone: [facility] Work Phone: Start: 08-06-2024 End: 08-06-2024 Patient encounter procedure DO Robert Ball Work Phone: [facility] Work Phone: Start: 07-31-2024 End: 07-31-2024 ambulatory DO Robert Ball Work Phone: [facility] Work Phone: Start: 07-31-2024 End: 07-31-2024 Patient encounter procedure DO Robert Ball Work Phone: [facility] Work Phone: Start: 06-15-2024 End: 06-15-2024 Patient encounter procedure DO Robert Ball Work Phone: [facility] [place] Work Phone: Start: 06-15-2024 End: 06-15-2024 ambulatory DO Robert Ball Work Phone: [facility] Work Phone: Start: 05-28-2024 End: 05-28-2024 ambulatory DO Robert Ball Work Phone: [facility] Work Phone: Start: 05-28-2024 End: 05-28-2024 Patient encounter procedure DO Robert Ball Work Phone: [facility] Work Phone: Start: 05-16-2024 Non-patient / Non-visit DO Robert Ball Work Phone: [facility] Work Phone: Start: 05-10-2024 End: 05-10-2024 ambulatory DO Robert Ball Work Phone: [facility] Work Phone: Start: 05-10-2024 End: 05-10-2024 Patient encounter procedure DO Robert Ball Work Phone: [facility] Work Phone: Start: 05-10-2024 Non-patient / Non-visit DO Robert Ball Work Phone: [facility] Work Phone: Start: 05-09-2024 End: 05-09-2024 ambulatory DO Robert Ball Work Phone: [facility] Work Phone: Start: 05-09-2024 End: 05-09-2024 Patient encounter procedure DO Robert Ball Work Phone: [facility] [place] Work Phone: Start: 05-07-2024 End: 05-07-2024 Patient encounter procedure DO Robert Ball Work Phone: [facility] [place] Work Phone: Start: 05-07-2024 End: 05-07-2024 ambulatory DO Robert Ball Work Phone: [facility] Work Phone: Start: 04-30-2024 End: 04-30-2024 ambulatory [facility] Work Phone: Start: 04-30-2024 End: 04-30-2024 Patient encounter procedure [facility] Work Phone: Start: 04-30-2024 Non-patient / Non-visit [facility] Work Phone: Start: 03-29-2024 End: 03-29-2024 Patient encounter procedure [facility] Work Phone: Start: 02-17-2024 Non-patient / Non-visit [facility] Work Phone: Start: 02-15-2024 End: 02-15-2024 ambulatory DO Robert Ball Work Phone: [facility] Work Phone: Start: 02-15-2024 End: 02-15-2024 Patient encounter procedure DO Robert Vail Work Phone: [facility] Work Phone: Start: 01-12-2024 End: 01-12-2024 ambulatory DO Robert Ball Work Phone: [facility] Work Phone: Start: 01-12-2024 End: 01-12-2024 Departed Referred DO Robert Ball Work Phone: [facility] [place] Work Phone: Start: 12-29-2023 End: 12-29-2023 ambulatory Robert Genna Other [employer] Other Start: 12-29-2023 Telephone encounter Robert Vail [facility] Start: 12-22-2023 End: 12-22-2023 ambulatory Robert Genna Other [employer] Other Start: 12-22-2023 Office outpatient visit 25 minutes Robert Ball [facility] Start: 12-09-2023 End: 12-09-2023 ambulatory Robert Ball Other [employer] Other Start: 12-09-2023 Office outpatient visit 15 minutes Robert Ball [facility] Start: 12-09-2023 Patient encounter procedure DO Robert Vail Work Phone: [facility]- Start: 11-11-2023 End: 11-11-2023 ambulatory Robert Ball Other [employer] Other Start: 11-11-2023 Telephone encounter Robert Ball [facility] Start: 11-10-2023 End: 11-10-2023 ambulatory Robert Ball Other [employer] Other Start: 11-10-2023 Telephone encounter Roebrt Ball [facility] Start: 11-04-2023 End: 11-04-2023 ambulatory Robert Ball Other [employer] Other Start: 11-04-2023 Telephone encounter Robert Ball [facility] Start: 10-19-2023 End: 10-19-2023 ambulatory Robert Ball Other [employer] Other Start: 10-19-2023 Telephone encounter Robert Ball [facility] Start: 09-21-2023 End: 09-21-2023 ambulatory Robert Ball Other [employer] Other Start: 09-21-2023 Office outpatient visit 25 minutes Robert Ball [facility] Start: 09-08-2023 End: 09-08-2023 ambulatory Robert Ball Other [employer] Other Start: 09-08-2023 Telephone encounter Robert Ball [facility] Start: 08-29-2023 End: 08-29-2023 ambulatory Robert Ball Other [employer] Other Start: 08-29-2023 Telephone encounter Robert Vail [facility] Start: 08-16-2023 End: 08-16-2023 ambulatory Robert Vail Other [employer] Other Start: 08-16-2023 Telephone encounter Robert Vail [facility] Start: 08-15-2023 End: 08-15-2023 ambulatory Robert Genna Other [employer] Other Start: 08-15-2023 Transitional care manage srvc 14 day discharge Robert Ball [facility] Start: 07-25-2023 End: 07-25-2023 ambulatory Robert Genna Other [employer] Other Start: 07-25-2023 Telephone encounter Robert Vail [facility] Start: 07-21-2023 End: 07-21-2023 ambulatory Robert Vail Other [employer] Other Start: 07-21-2023 Telephone encounter Robert Ball [facility] Start: 07-19-2023 End: 07-19-2023 ambulatory Robert Genna Other [employer] Other Start: 07-19-2023 Telephone encounter Robert Ball [facility] Start: 07-11-2023 End: 07-11-2023 ambulatory Robert Genna Other [employer] Other Start: 07-11-2023 Office outpatient visit 25 minutes Robert Ball [facility] Start: 05-25-2023 End: 05-25-2023 ambulatory Robert Ball Other [employer] Other Start: 05-25-2023 Office outpatient visit 15 minutes Robert Ball [facility] Start: 04-26-2023 End: 04-26-2023 ambulatory Robert Ball Other [employer] Other Start: 04-26-2023 Telephone encounter Robert Ball [facility] Start: 04-08-2023 End: 04-08-2023 ambulatory Robert Vail Other [employer] Other Start: 04-08-2023 Office outpatient visit 15 minutes Robert Vail [facility] Start: 04-07-2023 End: 04-08-[address] ROBERT VAIL Facility: Start: 03-23-2023 End: 03-23-2023 ambulatory Robert Vail Other [employer] Other Start: 03-23-2023 Office outpatient visit 15 minutes Robert Genna [facility] Start: 03-16-2023 End: 03-16-2023 ambulatory Robert Vail Other [employer] Other Start: 03-16-2023 Telephone encounter Robert Vail JOSELYN [facility] Start: 03-14-2023 End: 03-15-[address] ROBERT VAIL [facility] Other Start: 03-14-2023 Telephone encounter Robert Genna ALVES [facility] Start: 03-10-2023 End: 03-10-2023 ambulatory Robert Vail Other [employer] Other Start: 03-10-2023 Office outpatient visit 15 minutes Robert Vail [facility] Start: 03-10-2023 Telephone encounter Robert Vail [facility] Start: 03-02-2023 End: 03-02-2023 ambulatory Robert Vail Other [employer] Other Start: 03-02-2023 Patient encounter procedure Robert Vail [facility] Start: 02-14-2023 End: 02-14-2023 ambulatory Robert Vail Other [employer] Other Start: 02-14-2023 Office outpatient visit 25 minutes Michael Dunaway [facility] Start: 02-14-2023 Telephone encounter Robert Vail [facility] Start: 02-03-2023 (PROC) PROCEDURE Michael Emelyn [facility] Start: 02-03-2023 End: 02-03-2023 ambulatory Michael Dunaway Other [employer] Other Start: 01-27-2023 End: 01-27-2023 ambulatory Michael Dunaway Other [employer] Other Start: 01-27-2023 Follow-up encounter Michael Dunaway [facility] Start: 01-19-2023 End: 01-19-2023 ambulatory Robert Vail Other [employer] Other Start: 01-19-2023 Telephone encounter Robert Vail [facility] Start: 01-04-2023 (PROC) PROCEDURE Michael Ram[facility]rez [facility] Start: 01-04-2023 End: 01-04-2023 ambulatory Michael Dunaway Other [employer] Other Start: 12-31-2022 End: 12-31-2022 ambulatory Michael Dunaway Other [employer] Other Start: 12-31-2022 Office outpatient visit 25 minutes Michael Dunaway [facility] Start: 12-27-2022 End: 12-27-2022 ambulatory Ivon Batista Other [employer] Other Start: 12-27-2022 Office outpatient visit 15 minutes Ivon Batista [facility] Start: 12-02-2022 End: 12-02-2022 ambulatory Ursula Velarde Other [employer] Other Start: 12-02-2022 Office outpatient visit 15 minutes Ursula Velarde [facility] Start: 11-18-2022 (PROC) PROCEDURE Michael Ramírez [facility] Start: 11-18-2022 End: 11-18-2022 ambulatory Michael Dunaway Other [employer] Other Start: 11-03-2022 Pre-procedure evaluation check Robert Vail Other [employer] Other Start: 11-02-2022 End: 11-02-2022 ambulatory Michael Dunaway Other [employer] Other Start: 11-02-2022 Office outpatient visit 25 minutes Michael Emelyn [facility] Start: 10-26-2022 (Procedure) Short Michael Dunaway [facility] Start: 10-26-2022 End: 10-26-2022 ambulatory Michaelrancho Dunaway Other [employer] Other Start: 09-11-2022 End: 09-11-2022 ambulatory Kaitlynn Foy Other [employer] Other Start: 09-11-2022 Office outpatient visit 25 minutes Kaitlynn Foy [facility] [place] Start: 09-10-2022 End: 09-10-2022 ambulatory Michaelrancho Dunaway Other [employer] Other Start: 09-10-2022 Office outpatient visit 15 minutes Michaelrancho Dunaway [facility] Start: 08-24-2022 (Procedure) Short Michael Dunaway [facility] Start: 08-24-2022 End: 08-24-2022 ambulatory Michaelrancho Dunaway Other [employer] Other Start: 08-03-2022 (Procedure) Short Michael Dunaway [facility] Start: 08-03-2022 End: 08-03-2022 ambulatory Michael Dunaway Other [employer] Other Start: 07-29-2022 End: 07-29-2022 ambulatory Michael Dunaway Other [employer] Other Start: 07-29-2022 Office outpatient visit 15 minutes Michael Emelyn [facility] Start: 07-25-[address] ROBERT VAIL Facili ty:[facility]1 Start: 07-22-2022 (Procedure) Short Michael Dunaway [facility] Start: 07-22-2022 End: 07-22-2022 ambulatory Michael Dunaway Other [employer] Other Start: 07-06-2022 End: 07-07-[address] ROBERT VAIL Facility:[facility] Start: 07-02-2022 End: 07-02-2022 ambulatory Michael Dunaway Other [employer] Other Start: 07-02-2022 Office outpatient visit 25 minutes Michael Emelyn [facility] Start: 06-23-2022 (Procedure) Short Michael Dunaway [facility] Start: 06-23-2022 End: 06-23-2022 ambulatory Michael Dunaway Other [employer] Other Start: 06-23-2022 End: 06-23-2022 Admission to same day surgery center DO Robert Vail Work Phone: [facility] Start: 06-18-2022 End: 06-18-2022 ambulatory Michael Dunaway Other [employer] Other Start: 06-18-2022 Office outpatient visit 25 minutes Michael Emelyn [facility] Start: 05-05-2022 End: 05-05-2022 Patient encounter procedure DO Robert Vail Work Phone: [facility] Start: 04-30-2022 End: 05-01-[address] ROBERT VAIL Facility:[facility] Start: 04-13-2022 End: 04-14-[address] ROBERT VAIL Facility:[facility] Start: 04-01-2022 End: 04-01-2022 ambulatory Maico Lloyd Other [employer] Other Start: 04-01-2022 Telephone encounter Maico Lloyd [facility] Start: 03-19-2022 End: 03-19-2022 ambulatory Michael Dunaway Other [employer] Other Start: 03-19-2022 Telephone encounter Michael Dunaway [facility] Start: 03-11-2022 End: 03-11-2022 ambulatory Michael Dunaway Other [employer] Other Start: 03-11-2022 Office outpatient visit 25 minutes Michael Dunaway [facility] Start: 03-04-2022 End: 03-04-2022 Patient encounter procedure Taye VAZQUEZ [facility] [place] Start: 02-25-2022 (Procedure) Short Michael Dunaway [facility] Start: 02-25-2022 End: 02-25-2022 ambulatory Michael Dunaway Other [facility] Other Start: 02-18-2022 End: 02-18-2022 ambulatory Michael Dunaway Other [employer] Other Start: 02-18-2022 Office outpatient ne w 45 minutes Michael Dunaway [facility] Start: 01-28-2022 End: 01-28-2022 ambulatory Usama Batista Other [employer] Other Start: 01-28-2022 Office outpatient ne w 45 minutes Usama Batista [facility] Start: 01-20-2022 Adult health examination Robert Vail Other [employer] Other Start: 11-07-2021 End: 11-07-2021 ambulatory Quita Simmons Other [facility] [employer] Other Start: 11-07-2021 Office outpatient ne w 20 minutes Quita Simmons [facility] [place] Procedures Date [...] Office Visit [facility] [address] [place] [address] Jr. Fernando Silva, DO [address] [place] [address] [facility] Start: 05-09-2025 End: 05-09-2025 ambulatory 05/09/2025 10:30 AM EDT Treatment [facility] [address] [place] [address] Jacqui Harper, PT [facility] Start: 05-07-2025 End: 05-07-2025 ambulatory 05/07/2025 12:30 PM EDT Treatment [facility] [address] [facility] [address] [place] [address] Gabriel Hagen, [employer] WORKMAN [facility] Start: 05-03-2025 End: 05-03-2025 ambulatory [facility] Start: 04-30-2025 End: 04-30-2025 ambulatory [facility] Start: 04-26-2025 End: 04-26-2025 ambulatory 04/26/2025 9:00 AM EDT Treatment [facility] [address] [facility] [address] [place] [address] Gabriel Hagen, G[employer] WORKMAN [facility] Start: 04-23-2025 End: 04-23-2025 ambulatory 04/23/2025 4:30 PM EDT Treatment [facility] [address] [facility] [address] [place] [address] Gabriel Hagen, [employer] WORKMAN Low back pain, unspecified back pain laterality, unspecified chronicity, unspecified whether sciatica present (Primary Dx) [facility] Comment on above: Low back pain, unspe cified back pain laterality, unspecified chronicity, unspecified whether sciatica present (Primary Dx) Start: 04-17-2025 End: 04-17-2025 ambulatory 04/17/2025 11:00 AM EDT Treatment [facility] [address] [facility] [address] [place] [address] Jacqui Harper, PT [facility] Start: 04-15-2025 End: 04-15-2025 ambulatory 04/15/2025 9:30 AM EDT Treatment [facility] [address] [facility] [address] [place] [address] Jacqui Harper, PT [facility] Start: 04-11-2025 End: 04-11-2025 ambulatory 04/11/2025 9:00 AM EDT Treatment [facility] [address] [place] [address] Jacqui Harper, PT [facility] Start: 04-08-2025 End: 04-08-2025 ambulatory 04/08/2025 1:00 PM EDT Treatment [facility] [address] [place] [address] Gabriel Hagen, [employer] WORKMAN [facility] Start: 04-01-2025 End: 04-01-2025 ambulatory 04/01/2025 9:30 AM EDT Treatment [facility] [address] [place] [address] Jacqui Harper, PT [facility] Start: 03-21-2025 End: 03-21-2025 ambulatory 03/21/2025 8:30 AM EDT Treatment [facility] [address] [place] [address] Jacqui Harper, PT [facility] Start: 03-14-2025 End: 03-14-2025 ambulatory [facility] Comment on above: Arrived Start: 02-28-2025 End: 02-28-2025 ambulatory [facility] Start: 02-25-2025 End: 02-25-2025 ambulatory 02/25/2025 12:00 PM EDT Treatment [facility] [address] [place] [address] Tierney Schuster, [employer] WORKMAN [facility] Start: 02-20-2025 End: 02-20-2025 ambulatory 02/20/2025 1:00 PM EDT Treatment [facility] [address] [place] [address] Tierney Schuster, [employer] WORKMAN Arrived [facility] Comment on above: Arrived Start: 02-13-2025 End: 02-13-2025 ambulatory 02/13/2025 1:00 PM EDT Treatment [facility] [address] [place] [address] Gabriel Haegn, [employer] WORKMAN [facility] Start: 02-11-2025 End: 02-11-2025 ambulatory 02/11/2025 12:30 PM EDT Treatment [facility] [address] [facility] [address] [place] [address] Amparo Giron, [employer] WORKMAN [facility] Start: 01-31-2025 End: 01-31-2025 ambulatory 01/31/2025 12:00 PM EST Treatment [facility] [address] [facility] [address] [place] [address] Gabriel Hagen, G[employer] WORKMAN [facility] Start: 01-28-2025 End: 01-28-2025 ambulatory 01/28/2025 12:00 PM EST Treatment [facility] [address] [facility] [address] [place] [address] Jacqui Harper, PT [facility] Start: [...] EST Evaluation [facility] [address] [facility] [address] [place] [address] Jacqui Harper, PT Arrived [facility] Comment on above: Arrived Start: 12-26-2024 [facility] Start: 08-10-2024 [facility] Start: 01-12-2024 Superficial Wound Culture Superficial Wound Culture [facility] Start: 06-23-2022 [facility] Work Phone: Start: 05-05-2022 [facility] Work Phone: Start: 07-29-2018 Pneumococcal Vaccine : 65+ Years (2 of 2 - PCV) Pneumococcal Vaccine: 65+ Years (2 of 2 - PCV) [facility] aPTT in Platelet poo r plasma by Coagulation assay [facility] Comprehensive metabo lic 1999 panel - Serum or Plasma [facility] Comprehensive metabo lic 1999 panel - Serum or Plasma [facility] Microalbumin [Mass/volume] in Urine [facility] MR Lumbar spine WO contrast [facility] Patient Education [facility] Work Phone: Patient referral [facility] Work Phone: XR Lumbar spine 4 Views [facility] XR Pelvis 1 or 2 Views [facility] XR Sacrum and Coccyx GE 2 Views [facility] Immunizations Immunization Date Immunization Notes Care Provider [facility] 08-12-2025 influenza, high dose seasonal, preservative-free Robert Ball DO Work Phone: [facility] 08-06-2024 influenza, high dose seasonal, preservative-free DO Robert Ball Work Phone: [facility] 08-15-2023 influenza, high dose seasonal, preservative-free Robert Ball Other [employer] Other 08-15-2023 influenza virus vaccine, unspecified formulation DO Robert Ball Work Phone: [facility] 10-13-2022 Influenza vaccine, quadrivalent, adjuvanted DO Robert Ball Work Phone: [facility] 10-13-2022 influenza virus vaccine, split virus (incl. purified surface antigen) Robert Ball Other [employer] Other 10-13-2022 influenza virus vaccine, unspecified formulation DO Robert Ball Work Phone: [facility] 10-08-2022 influenza virus vaccine, unspecified formulation DO Robert Ball Work Phone: [facility] 10-08-2022 influenza, high dose seasonal, preservative-free Robert Vail Other [facility] Other 10-05-2021 COVID-19 Vaccine Pfi zer - Documentation Purposes Only Robert Vail Other [facility] 09-02-2021 influenza virus vaccine, split virus (incl. purified surface antigen) Robert Vail Other [facility] Other 09-02-2021 influenza virus vaccine, unspecified formulation DO [employer] Work Phone: [facility] 02-11-2021 COVID-19 Vaccine Pfi zer - Documentation Purposes Only Robert Vail Other [facility] 01-21-2021 COVID-19 Vaccine Pfi zer - Documentation Purposes Only Robert Vail Other [facility] 08-25-2020 influenza virus vaccine, split virus (incl. purified surface antigen) Robert Vail Other [facility] Other 08-25-2020 influenza virus vaccine, unspecified formulation DO [employer] Work Phone: [facility] 08-30-2019 influenza virus vaccine, split virus (incl. purified surface antigen) Robert Vail Other [facility] Other 08-30-2019 influenza virus vaccine, unspecified formulation DO [employer] Work Phone: [facility] 10-11-2018 influenza, injectabl e, quadrivalent, preservative free DO [employer] Work Phone: [facility] 09-18-2018 influenza virus vaccine, split virus (incl. purified surface antigen) Robert Vail Other [facility] Other 09-18-2018 influenza virus vaccine, unspecified formulation DO [employer] Work Phone: [facility] 09-18-2018 Seasonal trivalent influenza vaccine, adjuvanted, preservative free DO [employer] Work Phone: [facility] 08-17-2017 influenza virus vaccine, split virus (incl. purified surface antigen) Robert Vail Other [employer] Other 08-17-2017 influenza virus vaccine, unspecified formulation DO [employer] Work Phone: [facility] 08-17-2017 influenza, high dose seasonal, preservative-free DO [employer] Work Phone: [facility] 07-29-2017 pneumococcal polysaccharide vaccine, 23 valent Robert Vail Other [facility] 02-14-2017 influenza virus vaccine, split virus (incl. purified surface antigen) Robert Vail Other [employer] Other 02-14-2017 influenza virus vaccine, unspecified formulation DO [employer] Work Phone: [facility] 10-07-2015 pneumococcal conjuga te vaccine, 13 valent Robert Vail Other [facility] 08-19-2015 influenza virus vaccine, split virus (incl. purified surface antigen) [employer] Other [facility] Other 08-19-2015 influenza virus vaccine, unspecified formulation DO [employer] Work Phone: [facility] 09-19-2014 tetanus and diphther ia toxoids, adsorbed, preservative free, for adult use (5 Lf of tetanus toxoid and 2 Lf of diphtheria toxoid) [employer] Other [facility] 08-17-2013 tetanus and diphther ia toxoids, adsorbed, preservative free, for adult use (5 Lf of tetanus toxoid and 2 Lf of diphtheria toxoid) [employer] Other [facility] 08-02-2012 tetanus and diphther ia toxoids, adsorbed, preservative free, for adult use (5 Lf of tetanus toxoid and 2 Lf of diphtheria toxoid) Robert Vail Other [facility] 06-04-2011 zoster vaccine, live DO Benj anand [employer] Work Phone: [facility] 07-03-2009 pneumococcal polysaccharide vaccine, 23 valent Robert Vail Other [facility] Payers Date Payer Category Payer Unknown [id number] 2024 Self-pay [id number] 2010 Private Health Insurance [id number] [id number] 2010 Unknown [id number] 2006 Medicare MEDICARE [id number] 1959 Medicare [id number] .[id number] 1959 Self-pay [id number] 1959 Unknown [id number] 2.16.840.1.114595.19 1941 Unknown [id number] .16840.1.073502.3.579. 2.593 1941 Unknown [id number] 2.16840.1.557438.3.579. 2.593 1941 Unknown [id number] 2.16.840.1.444756.3.579. 2.593 1941 Unknown [id number] 2.16.840.1.178101.3.579. 2.593 1941 Unknown [id number] 2.16.840.1.826711.3.579. 2.593 1941 Unknown [id number] 2.16.840.1.368987.3.579. 2.593 1941 Unknown [id number] 2.16.840.1.097363.3.579. 2.727 1941 Unknown [id number] 2.16.840.1.198718.3.579. 2.727 1941 Unknown [id number] 2.16.840.1.381387.3.579. 2.727 1941 Unknown [id number] 2.16.840.1.992366.3.579. 2.1259 1941 Unknown [id number] 2.16.840.1.375884.3.579. 2.1259 1941 Unknown [id number] 2.16.840.1.229910.3.579. 2.1259 1941 Unknown [id number] 2.16.840.1.183923.3.579. 2.1259 1941 Unknown [id number] 2.16.840.1.760295.3.579. 2.1259 1941 Unknown [id number] 2.16.840.1.304815.3.579. 2.1259 1941 Unknown [id number] 2.16.840.1.567035.3.579. 2.1259 1941 Unknown [id number] 2.16.840.1.949704.3.579. 2.1259 1941 Unknown [id number] 2.16.840.1.055276.3.579. 2.1259 1941 Unknown [id number] 2.16.840.1.981214.3.579. 2.1258 1941 Unknown [id number] 2.16.840.1.336732.3.579. 2.125 1941 Unknown [id number] 2.16.840.1.519302.3.579. 2.1258 1941 Unknown [id number] 2.16.840.1.375764.3.579. 2.1258 1941 Unknown [id number] 2.16.840.1.230219.3.579. 2.1258 1941 Unknown [id number] 2.16.840.1.664148.3.579. 2.1258 1941 Unknown [id number] 2.16.840.1.080909.3.579. 2.1258 1941 Unknown [id number] 2.16.840.1.138426.3.579. 2.1258 1941 Unknown [id number] 2.16.840.1.736966.3.579. 2.1258 1941 Unknown [id number] 2.16.840.1.969888.3.579. 2.1258 1941 Unknown [id number] 2.16.840.1.006909.3.579. 2.1258 1941 Unknown [id number] 2.16.840.1.734151.3.579. 2.125 1941 Unknown [id number] 2.16.840.1.809780.3.579. 2.1258 1941 Unknown [id number] 2.16.840.1.290106.3.579. 2.1259 Unknown [id number] 2.16.840.1.166953.3.579. 2.531 Unknown [id number] 2.16.840.1.917515.3.579. 2.531 Unknown [id number] 2.16.840.1.850498.3.579. 2.531 Unknown [id number] 2.16.840.1.671998.3.579. 2.531 Unknown [id number] 2.16.840.1.676583.3.579. 2.531 Unknown [id number] 2.16.840.1.832118.3.579. 2.531 Unknown [id number] 2.16.840.1.374849.3.579. 2.531 Unknown [id number] 2.16.840.1.597264.3.579. 2.531 Social History Date Type Detail Facility Start: 03-04-2022 End: 03-20-2025 Tobacco smoking status Ex-smoker (finding) [facility] Other Tobacco smoking status Never [facility] [place] Start: 04-09-2024 Sex Assigned At Female N [facility] [employer] Other Start: 03-24-2022 End: 08-10-2024 Tobacco smoking status NHIS Never smoked tobacco (finding) [facility] Start: 1940 Sex Assigned At Female F [facility] Start: 12-07-2024 End: 05-06-2025 Sex Female (finding) [facility] History of tobacco use Current smoker [facility] History of tobacco use Cigarette Smoker N [facility] Start: 10-31-2023 Tobacco use and exposure Smokeless tobacco non-user [facility] [facility] Start: 04-09-2024 Alcoholic beverage intake Ex-drinker (finding) [facility] [facility] Start: 04-09-2024 History of Social function [facility] [facility] [facility] Start: 1940 Sex assigned at Not on file [facility] Medical Equipment Procedure Code Equipment Code Equipment Origin al Text Equipment Identifier Dates Capsule endoscopy, for patency of lumen evaluation Video capsule endoscopy system ()[id number] [facility] Start: 05-05-2022 [...] diabetes mellitus with hyperglycemia acute July 10:31am [facility] Work Phone: 1(420) 569-240506-12-2025 History of Present illness Narrative* Jacqui Leroy, [...] instructed in home exercise program. - met [employer] Goals: To be met in 10 weeks [...] - met Discharge PT documented in this encounterSS[facility] [id number] History of Present illness Narrative* Jacqui Harper [...] instructed in home exercise program. - met Penitentiary Goals: To be met in 10 weeks [...] Please sign below. Date: documented in this encounterSSM Health [facility] Children's [id number] History of Present illness Narrative* Jacqui Harper, [...] instructed in home exercise program. - met [employer] Goals: To be met in 10 weeks [...] Please sign below. Date: documented in this encounterSSM Health [facility] Children's HospitalIsibkzprow39-07-9851 History of Present illness Narrative* Jacqui Harper, [...] instructed in home exercise program. - met Penitentiary Goals: To be met in 10 weeks [...] Please sign below. Date: documented in this encounterSSM [facility] Children's HospitalZgzuoiyjze02-65-3868 History of Present illness Narrative* Jacqui Harper, [...] instructed in home exercise program. - met [employer] Goals: To be met in 10 weeks [...] Please sign below. Date: documented in this encounterSSM Health [facility]'s HospitalIsxdxrsabc24-10-4629 History of Present illness Narrative* Jacqui Harper [...] instructed in home exercise program. - met [employer]er Goals: To be met in 10 weeks [...] Please sign below. Date: documented in this encounterSSM [facility] Children's HospitalPzrfghtdfm43-73-1210 Evaluation note* Diagnosis Onset Date Resolution Status [...] 11:24am Skin tear acute June 14 11:24am [facility] Work Phone: 1(501) 795-350004-23-2025 Evaluation note* Diagnosis Onset Date Resolution Status [...] 1:46pm Skin tear acute June 18 1:46pm [facility] Work Phone: 1(970) 264-125404-17-2025 History of Present illness Narrative* Jacqui Harper, [...] instructed in home exercise program. - met Penitentiary Goals: To be met in 10 weeks [...] Please sign below. Date: documented in this encounterSSM Health [facility] Children's [id number] History of Present illness Narrative* Jacqui Harper, [...] instructed in home exercise program. - met Penitentiary Goals: To be met in 10 weeks [...] Please sign below. Date: documented in this encounterSSM Health Cardinal Glennon Children's HospitalPkaqkopqsr52-66-7838 NoteGeneral Surgery Office/Clinic Note Chief Complaint consultation [...] require lift technique; patient requests referral to [facility]; call with problems/questions. Ordered: [facility] Internal Ambulatory Referral Follow-up No qualifying data [...] Sister. Hypertension: Father, Siste (more content not included)...[facility] HospitalComment on above:Result Comment: Electronically Signed By: GEORGE JENNINGS, Taye Ellington\Date and Time Signed: 02/26/25 13:52 [id number] Evaluation note * Diagnosis Onset Date Resolution [...] 062024 11:46am Sacroiliitis acute May 06 11:46am [facility] Work Phone: 1(880) 599-173403-03-2025 Telephone encounter Note* Telephone Encounter - Jenna Servin - 01/28/2025 8:25 AM EST She called noting up all last night not feeling well and no better this morning; she cx her 12:00 PT. I reminded and she said she will try to make her 3/6 PT; if unable she will contact jennifer. [facility] [id number] Miscellaneous Notes* Telephone Encounter - Jenna Servin - 01/28/2025 8:25 AM EST She called noting up all last night not feeling well and no better this morning; she cx her 12:00 PT. I reminded and she said she will try to make her 3/6 PT; if unable she will contact jennifer. documented in this encounterSSM Health Cardinal Glenn[facility] Children's [id number] History of Present illness Narrative* Jacqui Harper, [...] Left low back is hurting more today. [place] good after last session but pain returned. [...] as needed. Manual lumbar distraction supine with surinamese ball. Therapeutic Exercise: (31 minutes) Strength, Endurance, [...] to be instructed in home exercise program. Penitentiary Goals: To be met in 10 weeks [...] Please sign below. Date: documented in this [facility]02-19-2025 Evaluation note* Diagnosis Onset Date Resolution Status [...] it, subsequent noneactive April 09, 2025 10:24am [facility] Work Phone: 1(160) 378-967502-17-2025 History of Present illness Narrative* Jacqui Harper, [...] to be instructed in home exercise program. [employer]er Goals: To be met in 10 weeks [...] Please sign below. 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, [...] 1:27pm Sacroiliitis acute March 20, 2025 1:27pm [facility] Work Phone: 1(322) 953-799101-29-2025 [place] [address] Pain Management Procedure Note Signed Patient: Sandra Tavarez MR#: [id number] : 1940 Acct:[id number] Age/Sex: 84 / F Adm Date: 5 Loc: Room: Type: [facility] Attending Dr: Michael Dunaway MD Copies [...] MD 12/26/24 1119 Signed By: 12/26/24 1206 [facility]01-15-2025 Evaluation note* Diagnosis Onset Date Resolution Status [...] 2025 10:33am Sacroiliitis acute February 26 10:33am [facility] Work Phone: 1(758) 769-210301-10-2025 Evaluation note* Diagnosis Onset Date Resolution Status Admit Date Generalized seizure disorder acute December 07, 2024 10:20am Hypercholesteremia acute 2024 10:20am Hypertension acute November 10:20am Iron deficiency anemia acute [facility] 2024 10:20am Lumbar spondylosis acute 2024 10:20am [...] 10, 2024 1:37pm Sacroiliitis acute November 1:37pm [facility] Work Phone: 1(529) 554-142301-10-2025 Evaluation note* Diagnosis Onset Date Resolution Status Admit Date Generalized seizure disorder acute December 07, 2024 10:20am Hypercholesteremia acute 2024 10:20am Hypertension acute November 10:20am Iron deficiency anemia acute [facility] 2024 10:20am Lumbar spondylosis acute 2024 10:20am [...] 1:39pm Laceration of leg excluding thigh ac [place] December 12, 2024 1:39pm [facility] Work Phone: 1(861) 932-571801-10-2025 Evaluation note* Diagnosis Onset Date Resolution Status [...] 16, 2025 12:55pm Sacroiliitis acute December 12:55pm [facility] Work Phone: 1([phone]) 879-162801-10-2025 Evaluation note* Diagnosis Onset Date Resolution Status Admit Date Generalized seizure disorder acute December 07, 2024 10:20am Hypercholesteremia acute 2024 10:20am Hypertension acute November 10:20am Iron deficiency anemia acute [facility] 2024 10:20am Lumbar spondylosis acute 2024 10:20am [...] 2025 10:33am Sacroiliitis acute February 26 10:33am [facility] Work Phone: 1(148) 294-470009-13-2024 [facility] Evaluation note* Encounter Date Diagnosis Assessment Notes [...] use, the patient reduces the risk for [place], CVA, HTN, cardiac dysrhythmias and sudden cardiac [...] the risk for cerebrovascular and cardiovascular disease. [employer] Other 01-12-2024 Evaluation note* Encounter Date Diagnosis [...] infection (ICD-10 - Z20.822) Order sent to [facility], results negative for COVID infection. [facility] Other 12-14-2023 Evaluation note* Encounter Date Diagnosis Assessment Notes Treatment Notes Treatment Clinical Notes Oct, Acute cough (ICD-10 - R05.1) [facility] Other 10-25-2023 Evaluation note* Encounter Date Diagnosis [...] for additional treatment Discussed compression, pumps etc [facility] Other 10-12-2023 Evaluation note* Encounter Date Diagnosis Assessment Notes Treatment Notes Treatment Clinical Notes Aug, Lumbar spondylosis (ICD-10 - M47.816) [facility] Other 10-02-2023 Evaluation note* Encounter Date Diagnosis Assessment Notes Treatment Notes Treatment Clinical Notes Aug, Pain of right lower extremity (ICD-10 - M79.604) [facility] Other 09-18-2023 Evaluation note* Encounter Date Diagnosis [...] of right lower extremity (ICD-10 - M79.604) [facility] Other 08-22-2023 Evaluation note* Encounter Date Diagnosis Assessment Notes Treatment Notes Treatment Clinical Notes Jun, Dysuria (ICD-10 - R30.0) [facility] Other 08-14-2023 Evaluation note* Encounter Date Diagnosis [...] use, the patient reduces the risk for [place], CVA, HTN, cardiac dysrhythmias and sudden cardiac [...] or drinking prior to bedtime. Weight loss. [facility] Other 06-28-2023 Evaluation note* Encounter Date Diagnosis [...] supplied to the patient after her assessment [facility] [facility] Other 05-30-2023 Evaluation note* Encounter Date Diagnosis Assessment Notes Treatment Notes Treatment Clinical Notes March, Cellulitis of right lower extremity (ICD-10 - L03.115) [facility] Other 05-12-2023 Evaluation note* Encounter Date Diagnosis [...] - D68.59) Not able to use NSAIDs [facility] [facility] Other 04-26-2023 Evaluation note* Encounter Date Diagnosis [...] Hypercoagulable stat e (ICD-10 - D68.59) [facility] to [facility] clinic in [facility] [facility] Other 04-19-2023 Evaluation note* Encounter Date Diagnosis Assessment Notes Treatment Notes Treatment Clinical Notes Feb, Generalized seizure disorder (ICD-10 - G40.309) [facility] Other 04-17-2023 NotePROCEDURE: XR CHEST 2 V [...] Electronically authenticated by: CELINA JONES Date: 2023-03-14 15:11[facility]04-17-2023 Evaluation note* Encounter Date Diagnosis Assessment Notes Treatment Notes Treatment Clinical Notes Feb, Simple chronic bronchitis (ICD-10 - J41.0) [facility] Other 04-13-2023 Evaluation note* Encounter Date Diagnosis Assessment Notes Treatment Notes Treatment Clinical Notes Feb, Acute bronchitis due to other specified organisms (ICD-10 - J20.8) Instructed to use Robitussin or Mucinex for cough, saline or Flonase NS for congestion, Tylenol for pain and fever. Feb, Seasonal allergic rhinitis due to pollen (ICD-10 - J30.1) [facility] Other 04-05-2023 Evaluation note* Encounter Date Diagnosis [...] use, the patient reduces the risk for [place], CVA, HTN, cardiac dysrhythmias and sudden cardiac [...] mammogram for breast cancer (ICD-10 - Z12.31) [facility] Other 03-20-2023 Evaluation note* Encounter Date Diagnosis [...] offered to prescribe a low dose of [place], she states she does not want to be on opioid pain medications. She can follow up in 3 months or as needed. Jan, Chronic pain (ICD-10 - G89.29) Follow up as needed [facility] Other 03-02-2023 Evaluation note* Encounter Date Diagnosis [...] (ICD-10 - G89.29) Follow up after procedure. [facility] Other 02-03-2023 Evaluation note* Encounter Date Diagnosis [...] (ICD-10 - G89.29) Follow up after procedure. [facility] Other 01-30-2023 Evaluation note* Encounter Date Diagnosis Assessment Notes Treatment Notes Treatment Clinical Notes Nov, Erysipelas (ICD-10 - A46) Start w antibiotic, take entire course. Call if no improvement for other prescription or dermatology referral. Nov, Systemic viral illness (ICD-10 - B34.9) Chills and nausea has resolved Continue to monitor symptoms [facility] Other 01-05-2023 Evaluation note* Encounter Date Diagnosis [...] - G89.29) Follow up in 4 weeks. [facility] Other 12-06-2022 Evaluation note* Encounter Date Diagnosis [...] for three days prior to each procedure [facility] Other 10-15-2022 Evaluation note* Encounter Date Diagnosis [...] treatment plan. Patient left in stable condition [facility] Other 10-14-2022 Evaluation note* Encounter Date Diagnosis [...] - G89.29) Follow up in 4 weeks. [facility] Other 09-01-2022 Evaluation note* Encounter Date Diagnosis [...] Eliquis for 3 days prior to procedure [facility] Other 08-05-2022 Evaluation note* Encounter Date Diagnosis [...] Eliquis for 3 days prior to procedure [facility] Other 07-27-2022 [facility] Evaluation note* Encounter Date Diagnosis Assessment Notes [...] Eliquis for 3 days prior to procedure [facility] Other 04-14-2022 Evaluation note* Encounter Date Diagnosis [...] medial branch nerve blocks in the future. [facility] Other 03-24-2022 Evaluation note* Encounter Date Diagnosis [...] reports prior surgery with Dr. Rivers at [facility] 8 years ago. She also reports prior [...] negative findings were considered in medical decision-making. [facility] Other 03-03-2022 Evaluation note* Encounter Date Diagnosis [...] Asymptomatic age-related postmenopausal state (ICD-10 - Z78.0) [facility] Other 2021 Evaluation note* Encounter Date Diagnosis [...] no improvement in 2 to 3 days [facility] Other Evaluation + Plan note No data available for this section [facility] [place] Evaluation noteNo InformationNortJefferson Health Northeast [employer] Other Evaluation noteNo assessment information available [facility] Work Phone: Evaluation note* Diagnosis Onset Date Resolution Status Chronic venous insufficiency acute Hypertension acute Lumbar spondylosis acute Thrombophilia acute [facility] Work Phone: Evaluation note* Diagnosis [...] pain acute Ischial bursitis acute Lumbosacral spondylosis [facility] Work Phone: Evaluation note* Diagnosis Onset Date Resolution Status Generalized seizure disorder acute Hypercholesteremia acute Hypertension acute Lumbar spondylosis acute [place] (obstructive sleep apnea) acute Thrombophilia acute Type 2 diabetes mellitus with hyperglycemia acute Medicare annual wellness visit, subsequent noneactive Anticoagulant long-term use acute Arthritis of sacroiliac joint acute Chronic pain acute Ischial bursitis acute Lumbosacral spondylosis [facility] Work Phone: Evaluation note* Diagnosis Onset [...] spondylosis acut e Post laminectomy syndrome ac [facility] Work Phone: Evaluation note* Diagnosis Onset Date Resolution Status Ischial bursitis acute Lumbosacral spondylosis acut e Post laminectomy syndrome ac [place] Anticoagulant long-term use acute Chronic pain acute Lumbosacral spondylosis acut e Post laminectomy syndrome ac [facility] Work Phone: Evaluation note* Diagnosis Onset Date Resolution Status Ischial bursitis acute Lumbosacral spondylosis acut e Post laminectomy syndrome ac [place] Anticoagulant long-term use acute Chronic pain acute Lumbosacral spondylosis acut e Post laminectomy syndrome ac [place] Generalized seizure disorder acute Hypercholesteremia acute Hypertension acute Lumbar spondylosis acute [place] (obstructive sleep apnea) acute Thrombophilia acute Type 2 diabetes mellitus with hyperglycemia acute [facility] Work Phone: Evaluation note* Diagnosis Onset Date Resolution Status Ischial bursitis acute Lumbosacral spondylosis acut e Post laminectomy syndrome ac [place] Anticoagulant long-term use acute Chronic pain acute Lumbosacral spondylosis acut e Post laminectomy syndrome ac [place] Generalized seizure disorder acute Hypercholesteremia acute Hypertension acute Lumbar spondylosis acute [place] (obstructive sleep apnea) acute Thrombophilia acute Type 2 diabetes mellitus with hyperglycemia acute Anticoagulant long-term use acute Chronic pain acute Lumbosacral spondylosis acut e Post laminectomy syndrome ac [place] Sacroiliitis acute [facility] Work Phone: Evaluation note* Diagnosis Onset Date Resolution Status Anticoagulant long-term use acute Chronic pain acute Lumbosacral spondylosis acut e Post laminectomy syndrome ac [place] Generalized seizure disorder acute Hypercholesteremia acute Hypertension acute Lumbar spondylosis acute [place] (obstructive sleep apnea) acute Thrombophilia acute Type 2 diabetes mellitus with hyperglycemia acute Anticoagulant long-term use acute Chronic pain acute Lumbosacral spondylosis acut e Post laminectomy syndrome ac [place] Sacroiliitis acute [facility] Work Phone: Evaluation note* Diagnosis Onset Date Resolution Status Anticoagulant long-term use acute Chronic pain acute Lumbosacral spondylosis acut e Post laminectomy syndrome ac [place] Generalized seizure disorder acute Hypercholesteremia acute Hypertension acute Lumbar spondylosis acute [place] (obstructive sleep apnea) acute Thrombophilia acute Type 2 diabetes mellitus with hyperglycemia acute Anticoagulant long-term use acute Chronic pain acute Lumbosacral spondylosis acut e Post laminectomy syndrome ac [place] Sacroiliitis acute Chronic pain acute Lumbosacral spondylosis acut e Post laminectomy syndrome ac [place] Sacroiliitis acute [facility] Work Phone: Evaluation note* Diagnosis [...] wit h hyperglycemia acute December 07 10:20am [facility] Work Phone: Evaluation note* Diagnosis [...] sciatica present- Primary documented in this encounter [employer] [employer] [facility] [facility] HealthcareHistory general Narrative - Reported* Type Description [...] repair right femur Hospitalization History see above [facility] Other History general Narrative - Reported* Type [...] repair right femur Hospitalization History see above [facility] Other Hospital Discharge instructions No data available for this section [facility] [place] Reason for referral (narrative)* Reason Referral for lower e xtremity ulceration Diagnosis 1 Ulcer associated wit h varicose vein, with infection (I83.209) Referral Organization [facility] Arelis cano Referring Provider First Name Robert Referring Provider Last Name Genna Referring Provider Specialty Internal Me dicine Referred Organization [facility] Referred Address [address] [place], [place],[address] Referred Provider Specialty Wound Care Referral Priority Routine General Notes Mrs. Tavarez has chroni c venous insufficiency and suffered a contusion injury to her RLE, which resulted in a nonhealing ulceration. It was sutured by the ER but didn't result in wound closure. She is being referred for debridement and bandaging. She was empirically placed on Mupirocin and Cephalexin. [employer] [facility] [employer] Other Reason for referral (narrative)No reason for referral information availableUniversity [facility]als [facility] Work Phone: Reason for visit NarrativeReferral Dr. Conley [facility] [employer] Other reason for visit Narrative* Rehabilitation - Outpatient (Routine) - Authorized Specialty Diagnoses / Procedures Referred By Rachel espinoza Referred To Contact Physical Therapy Diagnoses Low back pain, unspecified Proximal Leg Pain Procedures [place] PHYSICAL THERAPY EVALUATION LOW COMPLEX 20 MINS [place] OFFICE/OUTPATIENT NEW HIGH MDM 60 MINUTES Robert Vail MD [address] [place] [address] Phone: tel: fax: [facility] [address] [facility] [address] [place] [address] Phone: tel: fax: Referral ID Status Reason Start Date Expiration Date V isits Requested Visits Authorized [id number] Authorized 01/11/2025 07/10/2025 20 20 [facility] HealthcareReason for visit Narrative* Rehabilitation - Outpatient (Routine) - Authorized Specialty Diagnoses / Procedures Referred By Rachel espinoza Referred To Contact Physical Therapy Diagnoses Low back pain, unspecified Proximal Leg Pain Procedures [place] PHYSICAL THERAPY EVALUATION LOW COMPLEX 20 MINS [place] OFFICE/OUTPATIENT NEW HIGH MDM 60 MINUTES Robert Vail MD [address] [place] [address] Phone: tel: fax: [facility] [address] [address] Phone: tel: fax: Referral ID Status Reason Start Date Expiration Date V isits Requested Visits Authorized [id number] Authorized 01/11/2025 11/27/2025 20 30 [facility] HealthcareReason for visit Narrative* Rehabilitation - Outpatient (Routine) - Authorized Specialty Diagnoses / Procedures Referred By Contac t Referred To Contact Physical Therapy Diagnoses Low back pain, unspecified Proximal Leg Pain Procedures [place] PHYSICAL THERAPY EVALUATION LOW COMPLEX 20 MINS [place] OFFICE/OUTPATIENT NEW HIGH MDM 60 MINUTES Robert Vail MD Phone: tel: fax: [facility] [address] [address] Phone: tel: fax: Referral ID Status Reason Start Date Expiration Date V isits Requested Visits Authorized [id number] Authorized 01/11/2025 11/27/2025 20 30 [facility] HealthcareReason for visit Narrative* Rehabilitation - Outpatient (Routine) - Authorized Specialty Diagnoses / Procedures Referred By Contac t Referred To Contact Physical Therapy Diagnoses Low back pain, unspecified Proximal Leg Pain Procedures [place] PHYSICAL THERAPY EVALUATION LOW COMPLEX 20 MINS [place] OFFICE/OUTPATIENT NEW HIGH MDM 60 MINUTES Robert Vail MD Phone: tel: fax: [facility] [address] [address] Phone: tel: fax: Referral ID Status Reason Start Date Expiration Date V isits Requested Visits Authorized [id number] Authorized 01/11/2025 11/27/2025 20 30 [facility] HealthcareReason for visit Narrative* Rehabilitation - Outpatient (Routine) - Authorized Specialty Diagnoses / Procedures Referred By Contac t Referred To Contact Physical Therapy Diagnoses Low back pain, unspecified Proximal Leg Pain Procedures [place] PHYSICAL THERAPY EVALUATION LOW COMPLEX 20 MINS [place] OFFICE/OUTPATIENT NEW HIGH MDM 60 MINUTES Robert Vail DO Phone: tel: fax: [facility] [address] [place] [place] [address] Phone: tel: fax: Referral ID Status Reason Start Date Expiration Date V isits Requested Visits Authorized [id number] Authorized 01/11/2025 11/27/2025 20 30 [facility] HealthcareReason for visit Narrative* Rehabilitation - Outpatient (Routine) - Closed Specialty Diagnoses / Procedures Referred By Rachel espinoza Referred To Contact Physical Therapy Diagnoses Low back pain, unspecified Proximal Leg Pain Procedures [place] PHYSICAL THERAPY EVALUATION LOW COMPLEX 20 MINS [place] OFFICE/OUTPATIENT NEW HIGH MDM 60 MINUTES Robert Vail DO Phone: tel: fax: [facility] [address] [facility] [address] [place] [address] Phone: tel: fax: Referral ID Status Reason Start Date Expiration Date Visits Re quested Visits Authorized [id number] Closed 01/11/2025 11/27/2025 20 30 [facility] [employer] [facility] [facility] Summary Purpose Family History Relationship Condition [...] No March 20 1:53pm Hospital Course Note [facility] Discharge Summary PERSON INFORMATION Name SANDRA TAVAREZ Age 79 Years 1940 Sex FEMALE Language Jamaican PCP Robert Vail Marital Status Med Service Med/Surg Acct# Arrival 05/23/2020 09:44:18 Visit Reason SURGERY - LEFT TOTAL KNEE Acuity LOS Address: [address] [place] [address] Comment: PROVIDER INFORMATION VITALS INFORMATION Vital Sign [...] whether neurogenic claudication present (M48.061) Referral Organization [facility] urosurgery Referring Provider First Name Usama Referring Provider Last Name Eusebio Referring Provider Specialty Neurologica l Surgery Referred Organization [facility] Pain Managemen t Referred Provider Michael Dunaway Referred Address [address],[address] Referred Provider Specialty Pain Medicin e Referral [...] L3, L4, L5 March 28, 2025 10:14am [facility] April 09, 2025 [...] L3, L4, L5 March 28, 2025 10:14am [facility] - [facility] April 09, 2025 [...] L3, L4, L5 March 28, 2025 10:14am [facility] - [facility] April 09, 2025 10:24am 2 week follow up after RFA April 15 1:48pm follow up after lumbar RFA May 06 11:46am right leg wound May 06, 2025 1:20p m Chief Complaint Admit Date f/u after kristofer lumbar MBB March 20 1:27pm Coumadin kristofer lumbar facet RFA L3, L4, L5 March 28, 2025 10:14am [facility] - [facility] April 09, 2025 [...] L3, L4, L5 March 28, 2025 10:14am [facility] - [facility] April 09, 2025 [...] CREATED AUTHOR AUTHOR'S ORGANIZ ATION 01/08/2025 [facility] DATE CREATED AUTHOR AUTHOR'S ORGANIZ ATION 04/12/[address] [facility] DATE CREATED AUTHOR AUTHOR'S ORGANIZ ATION 05/12/2025 [facility] dical Specialists EPIC REASON FOR VISIT (unrecogniz ed section and content) Reason Onset Date Comments Cx PT 01/28/25 01/28/2025 3 month Follow upHEAD COLD, TIREDLab resultstemp [id number] results1 month Follow upTBHMedication Questionmessage4 month/suture removaldiscuss [...] December 10, 2024 End: December 10, 2024 Public Health Nutritionist Relationship Specialty Start Date End Date Robert Vail MD [address] [place] [address] PCP - General Internal Medicine 04/03/24 Public Health Nutritionist Relationship Specialty Start Date End Date Robert Vail MD [address] [place] [phone] PCP - General Internal Medicine 04/03/24 Public Health Nutritionist Relationship Specialty Start Date End Date Robert Vail MD [address] [facility] [address] PCP - General Internal Medicine 04/03/24 Public Health Nutritionist Relationship Specialty Start Date End Date Robert Vail MD [address] [facility] [address] PCP - General Internal Medicine 04/03/24 Public Health Nutritionist Relationship Specialty Start Date End Date Robert Vail MD [address] [facility] [address] PCP - General Internal Medicine 04/03/24 Public Health Nutritionist Relationship Specialty Start Date End Date Robert Vail MD [address] [facility] [place] [address] PCP - General Internal Medicine 04/03/24 Public Health Nutritionist Relationship Specialty Start Date End Date Robert Vail MD [address] [facility] [address] PCP - General Internal Medicine 04/03/24 Public Health Nutritionist Relationship Specialty Start Date End Date Robert Vail MD [address] [facility] [place] [address] PCP - General Internal Medicine 04/03/24 Public Health Nutritionist Relationship Specialty Start Date End Date Robert Vail MD [address] [facility] [phone] PCP - General Internal Medicine 04/03/24 Public Health Nutritionist Relationship Specialty Start Date End Date Robert Vail MD PCP - General Internal Medicine 04/03/24 Public Health Nutritionist Relationship Specialty Start Date End Date Robert Vail MD PCP - General Internal Medicine 04/03/24 Public Health Nutritionist Relationship Specialty Start Date End Date Robert Vail MD PCP - General Internal Medicine 04/03/24 Public Health Nutritionist Relationship Specialty Start Date End Date Robert Vail MD PCP - General Internal Medicine 04/03/24 Team Status: Inactive Member Role Status Dates Robert Vail DO Primary Care Provider Active Start: March 28, 2025 End: March 28, 2025 Michael Dunaway MD Attending Provider Active Sta rt: March 28, 2025 End: March 28, 2025 Public Health Nutritionist Relationship Specialty Start Date End Date Robert Vail DO PCP - General Internal Medicine 04/03/24 Public Health Nutritionist Relationship Specialty Start Date End Date Robert Vail DO PCP - General Internal Medicine 04/03/24 Public Health Nutritionist Relationship Specialty Start Date End Date Robert Vail DO PCP - General Internal Medicine 04/03/24 Public Health Nutritionist Relationship Specialty Start Date End Date Robert Vail DO PCP - General Internal Medicine 04/03/24 Public Health Nutritionist Relationship Specialty Start Date End Date Robert Vail DO PCP - General Internal Medicine 04/03/24 Team Status: Inactive Member Role Status Dates Robert Vail DO Primary Care Provide r, Attending Provider Active Start: April 09, 2025 End: April 09, 2025 Public Health Nutritionist Relationship Specialty Start Date End Date Robert Vail DO PCP - General Internal Medicine 04/03/24 Public Health Nutritionist Relationship Specialty Start Date End Date Robert Vail DO PCP - General Internal Medicine 04/03/24 Public Health Nutritionist Relationship Specialty Start Date End Date Robert Vail DO PCP - General Internal Medicine 04/03/24 Public Health Nutritionist Relationship Specialty Start Date End Date Robert Vail DO PCP - General Internal Medicine 04/03/24 Public Health Nutritionist Relationship Specialty Start Date End Date Robert Vail DO PCP - General Internal Medicine 04/03/24 Public Health Nutritionist Relationship Specialty Start Date End Date Robert [...] PRIMARY CLINICAL RECORDS. [facility] [employer] [facility]. provides no warranty or guarantee of the accuracy or completeness of information in this document.
== END 2025-09-04 09:54 | disposition home or self-care (01) ==
LOC: WC 09:53
PROVIDERS: PCP Internal Medicine; Visit Provider Physician Assistant
DX: I87.311 Chronic venous hypertension (idiopathic) with ulcer of right lower extremity (principal); L97.812 Non-pressure chronic ulcer of other part of right lower leg with fat layer exposed
CPT/HCPCS: 29581

== ENCOUNTER 2025-09-18 10:33 | Outpatient (OUT) | payer MEDICARE, OTHER, SELFPAY ==
--- OUTSIDE RECORDS SUMMARY | 2025-09-18 10:40 | XMS_ITS | Clinical Summary ---
Author Organization [facility] Healthcare Address [address] [place] [address] Care Team Providers Care Grant Manager Name Role Phone Robert Lopez DO Primary Care Provider [phone] Allergies Active AllergyReactionsCriticalityNoted DateCommentsCelecoxibHives,Itching,Rash, RtenhpwvNbh96/19/2015PenicillinsRash,Itching,SccdgmoiDkj77/19/2015 Pt. states PCN doesn't work for me, it just doesn't work Wound Dressing HggbsjqvNmkqZck72/04/2023 Medications MedicationSigDispense QuantityRefillsLast FilledStart DateEnd DateStatus ferrous sulfate ER 142 mg ER tablet Take 324 mg by mouthActive furosemide (Lasix) 40 MG tablet Take 40 mg by mouth in the morning.Active levETIRAcetam (Keppra) 500 MG tablet Take 500 mg by mouth in the morning and 500 mg before bedtime.Active losartan (Cozaar) 25 MG tablet Take 25 mg by mouth in the morning.Active potassium chloride ER (Micro-K) 10 MEQ ER capsule Take 10 mEq by mouth in the morning.08/27/2023ctive warfarin (Coumadin) 5 MG tablet Take 5 mg by mouth 1 (one) time each day10/10/2023ctive Witch Cally (Preparation H Totables Wipes) 50 % pads Indications:Hemorrhoids, unspecified hemorrhoid typeApply 1 Dose topically every 8 (eight) hours if needed (with loose stool to wipe gently) 10 each ctive Active Problems ProblemNoted DateDiagnosed DateBilateral posterior capsular opacification 04/03/2024Epiretinal membrane (ERM) of right eye04/03/2024ry eyes04/03/2024 Blepharitis of upper and lower eyelids of both eyes04/03/2024 Social History Tobacco UseTypesPacks/DayYears UsedDateSmoking Tobacco: FormerCigarettes Smokeless Tobacco: Never Tobacco Cessation:Counseling Given: Not Answered Alcohol UseStandard Drinks/WeekCommentsNot Currently0 (1 standard drink = 0.6 oz pure alcohol)CommentsNoSex and Gender InformationValueDate RecordedSex Assigned at BirthNot on fileLegal JlhFyedmz99/15/2023 6:56 PM EDTGender Identity Not on fileSexual OrientationNot on file Last Filed Vital Signs Vital SignReadingTime TakenCommentsBlood Scmdayzs341/90007/15/2022 12:00 PM EDT Pulse--Temperature--Respiratory Rate--Oxygen Saturation--Inhaled Oxygen Concentration--Gzfogb575 kg (275 lb)10/31/2023 10:59 AM MBMFysqhy619.4 cm (5') 07/15/2022 12:00 PM EDTBody Mass Index53.71007/15/2022 12:00 PM EDT Plan of Treatment DateTypeDepartmentCare Team (Latest Contact Info)Hleyzzhyzdp04/11/2026 11:15 AM EDTOffice Visit [facility] [address] [place] [place] [address] Jr. Jovi Silva, DO [address] [place] [address] [place] [address] Health MaintenanceDue DateLast DoneCommentsPneumococcal Vaccine: 65+ Years (2 of 2 - PCV)07/29/201809Influenza Vaccine (#1)509/07/2024, 10/13/2022, 11/16/2019, Additional [place] [address] Care Teams Team MemberRelationshipSpecialtyStart DateEnd Date Robert Lopez DO PCP - GeneralInternal Medicine04/03/24
--- OUTSIDE RECORDS SUMMARY | 2025-09-18 10:40 | XMS_ITS | Clinical Summary ---
Author Organization [facility] Address [address] [place] [id number] Care Team Providers Care Stain Maker Name Role Phone Unavailable Primary Care Provider Unavailabl e Allergies Active AllergyReactionsCriticalityNoted DateCommentsAdhesive Tape (Rosins)Rash 04/03/20152094YjgkkdyciIyhphiri31/19/2750AhqxakwusduAraregwg15/19/2015 Medications MedicationSigDispense QuantityRefillsLast FilledStart DateEnd DateStatus phenytoin SR (DILANTIN) 100 mg ER capsule Take by mouth three times daily. Total of 5 a day, two in the morning, two at supper, one at bedtimeActive levETIRAcetam (KEPPRA) 500 mg tablet Take 500 mg by mouth twice daily.Active losartan (COZAAR) 25 mg tablet Take 50 mg by mouth once daily.Active IRON, FERROUS SULFATE, ORAL Take 324 mg by mouth.Active atorvastatin (LIPITOR) 20 mg tablet Take 20 mg by mouth once daily.Active furosemide (LASIX) 40 mg tablet Take 1 tablet by mouth twice daily.09/08/2015ctive potassium chloride (K-TAB) 10 mEq tablet Take 1 tablet by mouth twice daily. 180 tablet ctive CALCIUM ORAL Take by mouth once daily.Active metOLAzone (ZAROXOLYN) 5 mg tablet Take 1 tablet by mouth as needed (One Tablet in AM only for weight more than 250 pounds.). 90 tablet Active Active Problems ProblemNoted DateDiagnosed DateBilateral leg edema07/08/2015Delayed surgical wound liujert2006/06/2015Delayed wound ditpkwe3204/29/2015Morbid obesity with BMI of 50.0-59.9, adult04/29/2015S/P laminectomy with spinal aykbow9704/29/2015Pulmonary touyyroj88/07/2015drenal mass02/06/2015Thyroid mass02/06/2015Thoracic compression /05/1880Auuqfkowffle14/05/2015Preoperative cardiovascular dguscsgxxxy36/24/2015Lumbar stenosis with neurogenic ngkyfouabqmy09/19/2015 Spondylolisthesis at L4-L5 level01/16/2015nemiaBursitisHTN (hypertension)High cholesterolSleep apneaCHF (congestive heart failure)BMI 45.0-49.9, adult Family History Medical HistoryRelationCommentsCancerFatherheart attack [Other]FatherStroke Maternal GrandfatherArthritisMotherStrokeMotherDiabetesSisterHTN [Other]Sister RelationStatusCommentsFatherMaternal GrandfatherMotherSister Social History Tobacco UseTypesPacks/DayYears UsedDateSmoking Tobacco: GtgekwQzyedswpuf678 11/28/1959 - 11/28/1991 Comments:Quit 1991 Alcohol UseStandard Drinks/WeekCommentsNo0 (1 standard drink = 0.6 oz pure alcohol)CommentsNoSex and Gender InformationValueDate RecordedSex Assigned at BirthNot on fileLegal AtyWntitt44/17/2014 11:48 AM ESTGender IdentityNot on fileSexual OrientationNot on fileOccupationIndustryJob Start Date Job End DateassemblyNot on fileNot on fileNot on file Last Filed Vital Signs Vital SignReadingTime TakenCommentsBlood Yzwqafta791/7805 9:34 AM EDT Wfuru590904/27/2016 9:34 AM BZMGsuoirebfsz20.5 ??C (97.7 ??F)04/27/2016 9:34 AM EDTRespiratory Nrfm7616 9:34 AM EDTOxygen Ksddcpahzo54%04/27/2016 9:34 AM EDTInhaled Oxygen Concentration--Hevjgc563.7 kg (252 lb 12.8 oz)04/27/2016 9:34 AM LXUZfnhkh521.4 cm (5')04/27/2016 9:34 AM EDTBody Mass Index49.37 04/27/2016 9:34 AM EDT Plan of Treatment Health MaintenanceDue DateLast DoneCommentsAnxiety Bkoixklsy18/14/1960Depression Llqxuajgt54/14/1960DTaP,Tdap,Td Vaccine (1 - Tdap)1Diabetes Screening 1986Pneumococcal Vaccine: 50+ (1 of 1 - PCV)1991Shingrix Vaccine (1 of 2)1991Bone Density Gtktvldtk89/14/2007RSV Vaccine (1 - 1-dose 75+ series)2016Advance Directive Jabxpjypsx98/01/2025ovid-19 Vaccine (1 - 2024-26 season)2025Influenza Vaccine (#1)2025 Insurance
--- OUTSIDE RECORDS SUMMARY | 2025-09-18 10:48 | XMS_ITS | CCD ---
Author Organization [facility] Care Team Providers Care Timber Feller Name Role Phone ROBERT VAIL Primary Care Physician Quita Simmons Unavailable Usama Batista Unavailable Michael Dunaway Unavailable Maico Lloyd Unavailable DO Robert Vail Primary Care Provider [phone] DO Maico Lloyd Attending Provider MD Michael [...] Care Provider MD Juancarlos Campbell Attending Provider [phone] Genna, DO Jones Primary Care Provider MD Michael Dunaway Attending Provider [phone] Genna, DO Jones Primary Care Provider [...] Unavailable Ball Robert SIERRA Primary Care Provider [phone] Michael Dunaway MD Attending Provider [phone] Robert Vail DO Attending Provider Morena Donato APRN Attending Provider Robert Vail DO Primary Care Provider [phone] Robert Vail DO Attending Provider [phone] Allergies Allergy ClassificationReported Allergen(s)Allergy TypeDate of OnsetReaction(s) FacilityNSAIDs (1 source)celecoxibDrug Jrakhcs36-73-7376NzizdBswqlmqcdMiami Valley Hospital Penicillins (antibiotic) (1 source)PenicillinsDrug Atawglw71-91-8898XymkgYvrjfhroySumma Health Akron Campuserotonin Reuptake Inhibitors (SSRIs) (1 source)CitalopramDrug Befjwmi53-48-4258MqvmtGzrxnqcfsMiami Valley Hospital (2 sources)Adhesive Tape; Translations: [Tape]Drug allergyK[facility]tering Health [facility] (20 sources)celecoxib; Translations: [celecoxib]Drug Jgwcwri87-47-9721xthl, Hives, UnknownMer[facility] (1 source)Penicillins; Translations: [penicillins]Drug allergygroggyMercy Health St. [facility] Comment on above:Pt. states PCN doesn't work for me, it just doesn't work (20 sources)Penicillin GDrug AllergyRochester General Hospital [employer] Other (20 sources)Penicillins; Translations: [Penicillins]Allergy to substance 36-91-2590Fccd, Itching, SwellingKettering Health [facility] (2 sources)celecoxibDrug Hqprxgz87-38-7879Oxa [facility] (1 source)CitalopramDrug AllergySouthern [facility] (1 source)DesonideDrug AllergySouthern [facility] Medical Center Rep[facility] (20 sources)CitalopramDrug Jkfvjfu95-30-0654DxuqbqdBellevue Hospital (18 sources)PenicillinDrug Orjybuk77-91-4352HdkhhaiIuhyl [employer] Other (1 source)Substance with penicillin structure and antibacterial mechanism of action (substance)[facility] [employer] Other (1 source)patient allergy list reviewed by nurse or physiciaPropensity to adverse daeontjva39-38-2315Oetnjxp:[facility] [employer] Other (1 source)celecoxibDrug Vwsmwgm76-85-6894EurkwmpzbKettering Health [facility] (1 source)CitalopramDrug Cwttviv68-76-3208QeapnjkjiKettering Health [facility] (20 sources)celecoxibDrug Klzfqsx23-66-8208Wvhse, Itching, Rash, SwellingNOMS Healthcare (20 sources)Wound Dressing AdhesiveDrug Kgtiwrf03-14-3323DukpRJWZ Healthcare Medications Current Medications MedicationDrug Class(es)DatesSig (Normalized)Sig (Original)AeroChamber Mini Chamber - (20 sources)Start: 66-18-0693PngmIswuwul Mini Chamber - Use with MDI inhaled Use q 4 hours as needed for cough for 30 days Feb, ActiveAllegra Allergy 180 MG (20 sources)Start: 12-99-7868hape 1 tablet by mouth once dailyAllegra Allergy 180 MG 1 tablet Swallow whole with water; do not take with fruit juices. Orally Once a day for 30 days Feb, Activeatorvastatin 20 mg oral tablet (20 sources)HMG-CoA Reductase InhibitorStart: 06-18-2025 End: 40-98-5699opld 1 tablet by mouth once daily in the eveningAtorvastatin 20 mg tablet Active 20 MG PO Every evening 90 August 12, 2025 11:06am Complieswith drug therapyStart: 03-18-2025 End: 17-94-9465Snezrxtgeesk 20 mg tablet Discontinued 0 .ROUTE .COMPLEX March 18, 2025 6:30pm June 18:46pm TAKE 1 TABLET EVERY DAYStart: 95-91-7698Ybcqldvdtauq 20 mg tablet Active 0 .ROUTE .COMPLEX March 18, 2025 6:30pm TAKE 1 TABLET EVERY DAYStart: 03-27-2015 End: 52-54-7571ngyk 1 tablet by mouth once dailyAtorvastatin 20 mg tablet Discontinued 20 MG PO Daily May 05, 2022 12:00am March 12, 2024 6:05pm furosemide 20 mg oral tablet (20 sources)Loop DiureticStart: 09-21-2024 End: 84-73-1174unnc 1 tablet by mouth twice dailyFurosemide 20 mg tablet Active 20 MG PO Twice daily 180 September 21, 2024 4:20pm Complies with drug therapy Start: 02-14-2024 End: 16-10-7193egrz 1 tablet by mouth once dailyFurosemide 40 mg tablet Discontinued 40 MG PO Daily February 14, 2024 12:00am September 21, 2024 3:26pm Start: 45-75-2617gagx 1 tablet by mouth twice dailyLasix 20 mg Tab 20 mg = 1 tab(s), Oral, BID, Refills(s) 0 Start Date: 03/03/22 Status: OrderedInhalational Spacing Device (Aerochamber Mini) spacer (20 sources)Start: 54-41-5026Czpyicqnwarv Spacing Device (Aerochamber Mini) spacer Active 0 .Route February 13, 2024 11:00pm As directedStart: 02-14-2024 Inhalational Spacing Device (Aerochamber Mini) spacer Active 0 .Route February 14, 2024 12:00am As directedlevETIRAcetam 500 mg oral tablet (20 sources)Start: 03-12-2024 End: 06-49-1632Micjaqzhuxlgr 500 mg tablet Active 750 MG PO Twice daily 270 90 August 12, 2025 11:07am Complies with drug therapyStart: 03-12-2024 End: 76-24-8072ptkt 750 mg by mouth twice dailyLevetiracetam Active 750 MG PO Twice daily 270 90 March 12, 2024 6:04pmStart: 02-14-2024 End: 73-41-6585Yqchmuyzowsof 500 mg tablet Discontinued 750 MG PO Daily February 14, 2024 12:00am March 12, 2024 5:05pmStart: 02-14-2024 End: 89-54-2237umxb 750 mg by mouth once dailyLevetiracetam Discontinued 750 MG PO Daily February 14, 2024 12:00am March 12, 2024 5:05pmStart: 05-05-2022 End: 97-51-8035foyu 1 tablet by mouth once dailyLevetiracetam 500 mg tablet Discontinued 500 MG PO Daily May 05, 2022 12:00am February 14, 2024 1:06pm Start: 11-20-2014 End: 80-85-3709ffdt 1 tablet by mouth twice dailyLevetiracetam 500 mg tablet Discontinued 500 MG PO Twice daily February 14, 2024 1:04pm March 12, 2024 5:05pmtake 1 tablet by mouth every eight hoursKeppra 500 MG 1 tablet Orally tid Not-TakinglevoFLOXacin 750 mg oral tablet (13 sources)Quinolone Antimicrobialtake 1 tablet by mouth every twenty-four hourslevoFLOXacin 750 MG 1 tablet Orally Once a day Activelosartan potassium 50 mg oral tablet (20 sources)Angiotensin 2 Receptor BlockerStart: 06-18-2025 End: 95-92-4095rtju 1 tablet by mouth once dailyLosartan 50 mg tablet Active 50 MG PO Daily August 12, 2025 11:07am Complies with drug therapyStart: 03-18-2025 End: 98-71-4855Txdoyann 50 mg tablet Discontinued 0 .ROUTE .COMPLEX March 18, 2025 6:31pm June 18, 2025 2:46pm TAKE 1 TABLET EVERY DAYStart: 03-03-2022 End: 39-24-2315krnq 1 tablet by mouth once dailyLosartan 50 mg tablet Discontinued 50 MG PO Daily February 14, 2024 12:00am March 12, 2024 6:05pmtake 1 tablet by mouth in the morninglosartan (Cozaar) 25 MG tablet Take 25 mg by mouth in the morning. ActivemethylPREDNISolone 4 mg oral tablet (1 source)CorticosteroidStart: 19-09-7881Omwiyk 4 MG as directed Orally as directed for 6 days Oct, Activemupirocin 0.02 mg/mg topical ointment (3 sources)RNA Synthetase Inhibitor AntibacterialStart: 34-50-4517Odccbhvoc 2 % ointment Active 1 APPLIC TOPICAL Twice daily June 14, 2025 12:00am Complies withdrug therapypolysaccharide iron complex 150 mg oral capsule (20 sources)Start: 12-10-2024 End: 05-01-7772Donvoxrkxzewrh Iron Complex (Ferrex 150) 150 mg iron capsule Active 150 MG PO Daily 2024 11:10am Complies with drug therapyStart: 08-27-2024 End: 00-49-3562yuyv 1 capsule by mouth once dailyPolysaccharide Iron Complex (Ferrex 150) 150 mg iron capsule Discontinued 0 .ROUTE .COMPLEX August 27, 2024 12:37pm December 10, 2024 2:45pm TAKE 1 CAPSULE BY MOUTH DAILYStart: 08-10-2024 End: 09-59-5648Gelyjjdzxaripc Iron Complex (Ferrex 150) 150 mg iron capsule Discontinued 150 MG PO every other dayS2023 12:00am August 27, 2024 12:37pmStart: 06-22-2022 End: 34-44-5802Irbgikuvciqozn Iron Complex (Ferrex 150) 150 mg iron capsule Discontinued 150 MG PO Daily February 15, 2024 3:00pm August 10, 2024 12:24pmStart: 25-78-9268exud 1 capsule by mouth once dailyFerrex-150 oral capsule 150 mg = 1 cap(s), Oral, Daily, Refills(s) 0 Start Date: 03/03/22 Status: Orderedtake 1 capsule by mouth every other dayIFerex 150 150 MG 1 capsule Orally qod for 30 days Activetake 1 capsule by mouth once dailyIFerex 150 150 MG take 1 capsule by mouth once daily for 30 Not-Takingtake 1 capsule by mouth once dailyIFerex 150 150 MG 1 capsule Orally Once a day Activepotassium chloride 10 meq extended release oral capsule (20 sources)Start: 03-18-2025 End: 64-80-1356Nhkbkxsfq Chloride 10 mEq capsule, extended release Active 0 .ROUTE .COMPLEX August 12, 2025 11:07am TAKE 1 CAPSULE EVERY DAY Complies with drug therapyStart: 23-43-6168Jqpfivhdq Chloride 10 mEq capsule, extended release Active 0 .ROUTE .COMPLEX March 18, 2025 6:31pm TAKE 1 CAPSULE EVERY DAYStart: 05-05-2022 End: 71-89-8296momg 1 capsule by mouth once dailyPotassium Chloride 10 mEq capsule, extended release Discontinued 10 MEQ PO Daily February 14, 2024 12:00am March 12, 2024 6:05pmStart: 80-20-4471mcus 1 tablet by mouth once daily potassium chloride 10 mEq ER Tab 10 mEq = 1 tab(s), Oral, Daily, Refills(s) 0, Other (see comment) Start Date: 03/27/15 Status: Orderedtake 1 dose by mouth once daily at mealtimePotassium Chloride 20 MEQ 1 packet with food Orally Once a day Not-Taking/PRNtiZANidine 4 mg oral tablet (4 sources)Central alpha-2 Adrenergic AgonistStart: 46-47-6402zvWREmtaqt HCl 4 MG 1/2-1 tablet as needed Orally at bedtime for 30 days Jul, Active warfarin sodium 5 mg oral tablet (20 sources)Vitamin K AntagonistStart: 03-20-2025 End: 85-07-6472Yalwakes 5 mg tablet Active 5 MG PO .COMPLEX August 12, 2025 11:10am 5 mg orally; as directed by coumadin clinic Complies with drug therapyStart: 03-20-2025 End: 05-06-0193ikxl 1 tablet by mouth three times weeklyWarfarin 2.5 mg tablet Discontinued 2.5 MG PO 3 Times a week March 20, 2025 1:36pm August 12, 2025 11:08amStart: 12-13-2024 End: 00-62-5821llez 1 tablet by mouth once dailyWarfarin 5 mg tablet Discontinued 0 .ROUTE .COMPLEX 240 December 13, 2024 6:15pm March 20, 2025 1 :38pm TAKE 1 TABLET BY MOUTH DAILYStart: 08-10-2024 End: 40-02-0511iauz 1 tablet by mouth two times weeklyWarfarin 2.5 mg tablet Discontinued 2.5 MG PO Twice a Week August 10, 2024 12:00am February 1:38pmStart: 05-28-2024 End: 34-57-8772ieod 1 tablet by mouth five times weeklyWarfarin 5 mg tablet Discontinued 5 MG PO 5 TIMES PER WEEK May 28, 2024 12:00am December 13, 2024 6:16pmStart: 94-56-4785yyud 1 tablet by mouth once dailywarfarin (Coumadin) 5 MG tablet Take 5 mg by mouth 1 (one) time each day 10/10/2023 Activetake 1 tablet by mouth two times weeklyCoumadin 5 5 MG 1 tablet Orally Two times a Week Active witch darien 200 mg/ml medicated pad (20 sources)Start: 38-09-1689Glaut Darien (Preparation H Totables Wipes) 50 % pads Indications: Hemorrhoids, unspecified hemorrhoid type Apply 1 Dose topically every 8 (eight) hours if needed (with loose stool to wipe gently) 10 e ach 3 10/31/2023 Active Completed/Discontinued Medications MedicationDrug Class(es)DatesSig (Normalized)Sig (Original)acetaminophen 325 mg / HYDROcodone bitartrate 5 mg oral tablet (20 sources)Opioid AgonistStart: 02-14-2024 End: 12-78-7004wpwt 1 tablet by mouth twice dailyHydrocodone-Acetaminophen 5-325 mg tablet Discontinued 1 TAB PO Twice daily February 14, 2024 12:00am March 29, 2024 11:00amStart: 50-70-4361aqqu 1 tablet by mouth twice daily as needed HYDROcodone-Acetaminophen 5-325 MG 1 tablet as needed Orally twice daily for 14 days Aug, Ufpbjyivl188442 200 actuat albuterol 0.09 mg/actuat metered dose inhaler (20 sources)beta2-Adrenergic AgonistStart: 02-14-2024 End: 10-08-2604uxzs 1 puff(s) by inhalation every four hoursAlbuterol Sulfate 90 mcg/actuation HFA aerosol inhaler Discontinued 2 PUFF INHALATION Every 4 hours February 14, 2024 12:00am May 28, 2024 2:24pmStart: 94-73-4168rrtk 2 puff(s) by inhalation every four hours as needed for coughAlbuterol Sulfate HFA 108 (90 Base) MCG/ACT 2 puffs Inhalation every 4 hrs as needed for cough and SOB Feb, ActiveStart: 77-08-1030vqyl 2 puff(s) by inhalation every four hours as needed for coughAlbuterol Sulfate HFA 108 (90 Base) MCG/ACT 2 puffs Inhalation every 4 hrs as needed for cough and SOB Feb, ActiveStart: 22-34-0128ibxi 2 puff(s) by inhalation every four hours as needed for coughAlbuterol Sulfate HFA 108 (90 Base) MCG/ACT 2 puffs Inhalation every 4 hrs as needed for cough and SOB Feb, Activealendronic acid 5 mg oral tablet (20 sources)BisphosphonateStart: 02-14-2024 End: 63-46-5279Qkemvlqjivn 5 mg tablet Discontinued 5 MG PO February 14, 2024 12:00am March 29, 2024 11:00am 1 tablet 30 minutes before the first food, beverage or medicine of the day with plain water Orally Once a dayStart: 05-05-2022 End: 77-05-3031chiq 1 tablet by mouth every weekAlendronate 70 mg tablet Discontinued 70 MG PO every week May 05, 2022 12:00am June 23, 2022 10:21am Start: 66-78-8786wvme 1 tablet by mouth every weekFosamax 70 mg oral tablet 70 mg = 1 tab(s), Oral, qWeek, Refills(s) 0 Start Date: 03/03/22 Status: Ordered Alendronate Sodium 5 MG 1 tablet 30 minutes before the first food, beverage or medicine of the day with plain water Orally Once a day Activeapixaban 5 mg oral tablet (20 sources)Factor Xa InhibitorStart: 05-05-2022 End: 46-22-7167igvx 1 tablet by mouth once dailyApixaban (Eliquis) 5 mg tablet Discontinued 5 MG PO Daily May 05, 2022 12:00am May 28, 2024 2:24pmEliquis 5 MG TAKE 1 TABLET TWICE DAILY ActiveEliquis Activeazithromycin 250 mg oral tablet (20 sources)Macrolide AntimicrobialStart: 21-11-6702Wpwktgnigtyr 250 MG as directed Orally daily for 5 days Feb, Not-Taking/PRNStart: 12-27-2022 Azithromycin 500 MG 1 tablet Orally for 5 days Nov, Not-Taking/PRN benzonatate 200 mg oral capsule (20 sources)Non-narcotic AntitussiveStart: 02-14-2024 End: 08-41-3335mmie 1 capsule by mouth three times dailyBenzonatate 100 mg capsule Discontinued 100 MG PO Three times daily February 14, 2024 12:00am April 30, 2024 3:05pmStart: 02-14-2024 End: 17-94-1698visc 1 capsule by mouth three times dailyBenzonatate 200 mg capsule Discontinued 200 MG PO Three times daily February 14, 2024 12:00am April 30, 2024 3:05pmStart: 98-30-0588ghdb 1 capsule by mouth every eight hours Benzonatate 100 MG 1 capsule as needed Orally Three times a day for 10 days Oct, ActiveStart: 69-87-4882wovc 1 capsule by mouth every eight hours Benzonatate 200 MG 1 capsule Orally Three times a day for 10 13 Feb, 2023 Active Start: 78-78-4771zeiw 1 capsule by mouth every eight hoursTessalon Perles 100 MG 1 capsule as needed Orally Three times a day for 7 days Aug, Active cephalexin 500 mg oral capsule (19 sources)Cephalosporin AntibacterialStart: 37-39-6077byck 1 capsule by mouth twice daily as neededCephalexin 500 MG 1 capsule Orally twice daily for 14 days Jun, Not-Taking/PRNStart: 75-06-6090pqvj 1 capsule by mouth every twelve hoursCephalexin 500 MG 1 tablet Orally Twice a day for 7 days Aug, Not-Takingcodeine phosphate 2 mg/ml / guaiFENesin 20 mg/ml oral solution (20 sources)Opioid AgonistStart: 15-06-7708shhv 10 mL by mouth every six hours as needed for coughguaiFENesin-Codeine 100-10 MG/5ML 10 mL as needed Orally every 6 hours as needed for cough Feb, Not-Taking/PRNcolestipol hydrochloride 1000 mg oral tablet (20 sources)Bile Acid SequestrantStart: 02-14-2024 End: 06-17-5761Tppyhxltiq 1 gram tablet Discontinued 2 GM PO Daily February 14, 2024 12:00am May 28, 2024 2:25pmStart: 02-14-2024 End: 99-65-2223xwib 2 g by mouth once dailyColestipol Discontinued 2 GM PO Daily February 14, 2024 12:00am May 28, 2024 2:25pmStart: 68-52-1963bbaw 2 tablets by mouth every twenty-four hoursColestipol HCl 1 GM 2 tablets Orally Once a day for 30 days Jun, Activetake 2 tablets by mouth every twenty-four hours Colestipol HCl 1 GM 2 tablets Orally Once a day for 90 days Activedoxycycline monohydrate 100 mg oral tablet (20 sources)Tetracycline-class DrugStart: 06-14-2025 End: 44-72-7135oxjw 1 tablet by mouth twice dailyDoxycycline Monohydrate 100 mg tablet Discontinued 100 MG PO Twice daily 16 09June 14, 2025 12:00am August 12, 2025 10:32amStart: 01-04-2025 End: 75-37-7977acmn 1 capsule by mouth twice dailyDoxycycline Hyclate 100 mg capsule Discontinued 100 MG PO Twice daily 10 06January 16, 2025 1:46pm April 09, 2025 10:23amStart: 02-15-2024 End: 31-62-0375etyw 1 capsule by mouth twice dailyDoxycycline Hyclate 100 mg capsule Discontinued 100 MG PO Twice daily 16 09February 15, 2024 12:00am May 28, 2024 2:25pmStart: 09-96-3748thof 1 capsule by mouth twice daily as needed Doxycycline Hyclate 100 MG 1 capsule Orally twice daily for 7 days March, Not-Taking/PRNStart: 05-05-2022 End: 98-93-5245hgjw 1 capsule by mouth once dailyDoxycycline Hyclate 100 mg capsule Discontinued 100 MG PO Daily May 05, 2022 12:00am June 23, 2022 10:21amempagliflozin 10 mg oral tablet (5 sources)Sodium-Glucose Cotransporter 2 InhibitorStart: 04-19-2025 End: 41-97-9986dmbo 1 tablet by mouth once daily in the morningEmpagliflozin (Jardiance) 10 mg tablet Discontinued 10 MG PO Every morning April 19, 2025 12:00am August 12, 2025 11:06am0.8 ml enoxaparin sodium 150 mg/ml prefilled syringe (18 sources)Low Molecular Weight HeparinStart: 12-14-2024 End: 26-06-4346Zdmwatexuu 120 mg/0.8 mL syringe Discontinued 0 .ROUTE .COMPLEX 4.8 December 14, 2024 6:34pm 2024 1:35pm INJECT 1 syringe EVERY 12 HOURS FOR 6 DAYSStart: 12-14-2024 End: 20-92-8303Wdvgryllem (Lovenox) 120 mg/0.8 mL syringe Discontinued 0 SUBCUT Every 12 hours 4.8 November 1:00am December 14, 2024 6:34pm subcutaneously every 12 hours; Start 3 days prior to surgery,hold on morning of surgery, restart when surgeon determines safe.Enoxaparin 120 mg/0.8 mL syringe (12 sources)Start: 12-14-2024 End: 99-07-3064Yqdfsfgcdb 120 mg/0.8 mL syringe Discontinued 0 .ROUTE .COMPLEX 4.8 December 14, 2024 6:34pm 2024 1:35pm INJECT 1 syringe EVERY 12 HOURS FOR 6 DAYSStart: 20-58-8349Wxmfrphgxw 120 mg/0.8 mL syringe Active 0 .ROUTE .COMPLEX 4.8 December 14, 2024 6:34pm INJECT 1 syringe EVERY 12 HOURS FOR 6 DAYSStart: 86-46-9086Ilqxnstouc 120 mg/0.8 mL syringe Active 0 .ROUTE .COMPLEX 4.8 December 14, 2024 5:34pm INJECT 1 syringe EVERY 12 HOURS FOR 6 DAYSferrous sulfate 325 mg oral tablet (20 sources)Start: 06-23-2022 End: 30-40-7441vrgb 1 tablet by mouth once dailyFerrous Sulfate 325 mg (65 mg iron) Tablet Discontinued 325 MG PO Daily June 23, 2022 12:00am June 23, 2022 10:22amferrous sulfate ER 142 mg ER tablet Take 324 mg by mouth Activetake 1 tablet by mouth every twenty-four hoursIron 325 (65 Fe) MG 1 tablet Orally Once a day Not-Takingfexofenadine hydrochloride 180 mg oral tablet (20 sources)Histamine-1 Receptor AntagonistStart: 02-14-2024 End: 00-89-4803qwqx 1 tablet by mouth once daily as neededFexofenadine (Carole Allergy) 180 mg tablet Discontinued 180 MG PO Daily as needed for allergic sym ptoms February 14, 2024 12:00am March 20, 2025 1:35pmStart: 14-79-3409tyjp 1 tablet by mouth once dailyAllegra Allergy 180 MG 1 tablet Swallow whole with water; do not take with fruit juices. Orally Once a day for 30 days Feb, ActiveIron (1 source)take 1 tablet by mouth once dailyIron 325 (65 Fe) MG 1 tablet Orally Once a day Not-Takingphenytoin sodium 100 mg extended release oral capsule (20 sources)Anti-epileptic AgentStart: 05-05-2022 End: 88-21-6996yzjb 1 capsule by mouth three times dailyPhenytoin Sodium Extended 100 mg capsule Discontinued 100 MG PO Three times daily May 05, 2022 12:00am June 23, 2022 10:21amStart: 24-56-2749urnr 1 capsule by mouth twice dailyDilantin 100 mg Cap-ER 100 mg = 1 cap(s), Oral, BID, Refills(s) 0, Seizure Start Date: 04/10/15 Status: Orderedtake 1 capsule by mouth every twelve hours Dilantin 100 MG 1 capsule Orally every 12 hrs Not-Takingtake 1.5 tablets by mouth every six hoursPhenytoin 50 MG 1.5 tablets Orally Four times a day Active traMADol hydrochloride 50 mg oral tablet (20 sources)Opioid AgonistStart: 02-14-2024 End: 68-24-4218opip 1 tablet by mouth once daily at bedtimeTramadol 50 mg tablet Discontinued 50 MG PO Daily at bedtime February 14, 2024 12:00am March 29, 2024 11:00amStart: 33-16-0767lqqh 1 tablet by mouth once daily at bedtime as needed traMADol HCl 50 MG 1 tablet as needed Orally Once a day at bedtime for 14 days Aug, ActiveStart: 05-12-3519hzaw 1 tablet by mouth once daily at bedtime as neededtraMADol HCl 50 MG 1 tablet as needed Orally Once a day at bedtime for 14 days Jul, Active Problems Active Problems Problem ClassificationProblemDateDocumented DateEpisodic/ChronicAbdominal hernia (1 source)Diaphragmatic hernia; Translations: [Diaphragmatic hernia without mention of obstruction or gangrene]EpisodicAcute bronchitis (7 sources)Acute bronchitis due to other specified organisms; Translations: [Acute bronchitis]Onset: 63-75-4986SmsszzszRjfpazqfbraels/social admission (2 sources)Persons encountering health services in other specified circumstances EpisodicAsthma (20 sources)Asthma - currently active; Translations: [Unspecified asthma, uncomplicated]22-20-9031LobtfqiApbqijz tract disease (2 sources)Biliary calculus; 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] 76-26-9992LpmxsnnxWxclnlsz (20 sources)After-cataract of bilateral eyes; 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, bilateral]Onset: [id number] obstructive pulmonary disease and bronchiectasis (20 sources)Simple chronic bronchitis; Translations: [Simple chronic bronchitis] ChronicChronic ulcer of skin (9 sources)Non-pressure chronic ulcer of right calf limited to breakdown of skin; Translations: [Non-pressure chronic ulcer of right calf limited to breakdown of skin]ChronicCoagulation and hemorrhagic disorders (20 sources)Hypercoagulability state; Translations: [Other primary thrombophilia]Onset: 65-40-028680839650-35-8912FxyowpgKhrcnyahxhmtq of surgical procedures or medical care (4 sources)Infection following a procedure, other surgical site, initial encounter; Translations: [Other complications of procedures, not elsewhere classified, initial encounter]25-46-6339FauxytloFspfyhbars heart failure; nonhypertensive (1 source)Chronic combined systolic and diastolic heart failure; Translations: [Chronic combined systolic (congestive) and diastolic (congestive) heart failure]ChronicDeficiency and other anemia (4 sources)Iron deficiency anemia secondary to blood loss (chronic); Translations: [IRON DEFIC ANEMIA SEC BLD LOSS CHRN]Onset: 88-58-2465Oqlmdcd Deficiency and other anemia (1 source)Anemia due to chronic blood loss; Translations: [Iron deficiency anemia secondary to blood loss (chronic)]ChronicDeficiency and other anemia (20 sources)Iron deficiency anemia; Translations: [Iron deficiency anemia, unspecified]Onset: 54-45-4173JrgdnveuBoacbkgguk and other anemia (10 sources)Anemia; Translations: [Anemia, unspecified] Resolved: [id number]tiafcca and other anemia (9 sources)Iron deficiency anemia, unspecified; Translations: [Iron deficiency anemia, unspecified]52-74-1269WupkzgqsOyvpybsoxt and other anemia (3 sources)Anemia, unspecified; Translations: [Anemia, unspecified]04-09-2025 EpisodicDiabetes mellitus with complications (20 sources)Type 2 diabetes mellitus; Translations: [Type 2 diabetes mellitus with hyperglycemia]Onset: 00-14-2959UczijjrQvaivqqq mellitus without complication (1 source)Diabetes ecdxwtwj39-31-1405HfovrnxUcpycyxiz of lipid metabolism (20 sources)Hyperlipidemia; Translations: [Pure hypercholesterolemia]Onset: 143735-86-6959XfmhiweKburvrzeczrmnc and diverticulitis (2 sources)Diverticular disease; Translations: [Diverticulitis of colon]Onset: [id number] Codes: Adverse effects of medical drugs (6 sources)Adverse effect of anticoagulants, initial encounter; Translations: [Anticoagulants causing adverse effects in therapeutic use]15-02-9995Ixsfkvyf Epilepsy; convulsions (20 sources)Seizure disorder; Translations: [Generalized idiopathic epilepsy and epileptic syndromes, not intractable, without status epilepticus]Onset: 78-52-3139QwynjzwNfuqyyws; convulsions (3 sources)Seizure disorder; Translations: [Seizure]97-56-0848OvnwsupeJdpfnwimwf disorders (20 sources)Gastroesophageal reflux disease; Translations: [Gastro-esophageal reflux disease with esophagitis]53-63-8970VtathjxZfrekinaz hypertension (20 sources)Hypertensive disorder; Translations: [Essential (primary) hypertension]Onset: 701251-67-2108BhhqlqeBcgluaeozfdgw symptoms and ill- defined conditions (1 source)DysuriaEpisodicImmunity disorders (1 source)Common variable eibhjtgpipgdbsriis31-98-0923HkggtdiZvoeuyjyueziq and screening for infectious disease (20 sources)Contact with and (suspected) exposure to other viral communicable diseases; Translations: [Vaccination given]EpisodicMenopausal disorders (1 source)Primary ovarian failure; Translations: [Other primary ovarian failure] Onset: 93-27-3973CgqzjtvYvkr disorders (2 sources)Depressive disorder; 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] 54-27-1632KavbqviDadb wounds of extremities (20 sources)Laceration of lower limb; Translations: [Laceration without foreign body, unspecified lower leg, initial encounter]81-57-4295FvvwsrmcWwfu wounds of head; neck; and trunk (9 sources)Tear of skin; Translations: [Open wound(s) (multiple) of unspecified site(s), without mention of complication]33-23-6184DenmyvewPogrmnahalhgfz (3 sources)Degenerative joint disease of pelvis; Translations: [Osteoarthrosis, unspecified whether generalized or localized, pelvic region and thigh]Onset: 61-06-6789FatjcsuHyhwgqbvomjl (20 sources)Osteoporosis; Translations: [Age-related osteoporosis without current pathological fracture]20-52-9155DftfdmnEgfca acquired deformities (1 source)Acquired igjdkuvgnxezidjoi82-21-4784FukiywgnCseqa aftercare (20 sources)Long-term current use of anticoagulant; Translations: [custodial (current) use of anticoagulants]Onset: 38-84-8082UndcxoyzTskfn aftercare (20 sources)custodial (current) use of anticoagulants; Translations: [Long-term (current) use of anticoagulants]Onset: 02-18-2022 Resolved: 91-99-5519IbzzkbjxKhvqq aftercare (1 source)Long-term current use of drug therapy; Translations: [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]EpisodicOther aftercare (20 sources)Encounter for therapeutic drug level monitoring; Translations: [Encounter for therapeutic drug monitoring]20-21-0783AtyvyaulStsin and unspecified benign neoplasm (1 source)Adrenal jhahhbn82-52-0155KkqwobgoCtjis and unspecified benign neoplasm (1 source)Benign neoplasm of adrenal gland; Translations: [Benign neoplasm of unspecified adrenal gland]EpisodicOther and unspecified benign neoplasm (1 source)Benign neoplasm of right adrenal gland; Translations: [Benign neoplasm of right adrenal gland]EpisodicOther congenital anomalies (1 source)Congenital spondylolysis of lumbosacral region; Translations: [Congenital spondylolysis, lumbosacral region]Onset: 93-34-6614NujyrcvEzmfn connective tissue disease (1 source)Artificial knee joint present; Translations: [Presence of left artificial knee joint]ChronicOther connective tissue disease (20 sources)History of lumbar fusion; Translations: [Arthrodesis status]Episodic Other connective tissue disease (20 sources)Pain in calf; Translations: [Pain in unspecified lower leg] 37-99-5221VtbyrtjtLcruoks on above:Problem List clean-up per request of Phys. EHR CmteOther connective tissue disease (1 source)Neuralgia; Translations: [Unspecified neuralgia, neuritis, and radiculitis]EpisodicOther connective tissue disease (1 source)Spasm; Translations: [Other muscle spasm]EpisodicOther connective tissue disease (2 sources)Pain in right legEpisodicOther connective tissue disease (20 sources)Ischial bursitis ; Translations: [Other bursitis of hip, unspecified hip]69-71-6924UcaxuukpWbaox diseases of bladder and urethra (2 sources)Vesicocolic oeevimw90-20-8574IufyzpkFpkjp diseases of bladder and urethra (2 sources)Intestinovesical fistula; 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] ChronicOther diseases of veins and lymphatics (1 source)Chronic venous hypertension (idiopathic) without complications of unspecified lower extremity; Translations: [Chronic venous hypertension (idiopathic) without complications of unspecified lower extremity]ChronicOther diseases of veins and lymphatics (10 sources)Chronic peripheral venous hypertension; Translations: [Chronic venous hypertension (idiopathic) without complications of right lower extremity] 36-48-3246SlwpcnlBdhgq diseases of veins and lymphatics (1 source)Chronic venous hypertension (idiopathic) without complications of right lower extremityChronicOther diseases of veins and lymphatics (20 sources)Peripheral venous insufficiency; Translations: [Venous insufficiency (chronic) (peripheral)]Onset: 590712-96-2485TctvoguwSvcky diseases of veins and lymphatics (15 sources)Venous insufficiency (chronic) (peripheral); Translations: [Venous (peripheral) insufficiency, unspecified]EpisodicOther diseases of veins and lymphatics (3 sources)Stasis dermatitis; Translations: [Venous insufficiency (chronic) (peripheral)]EpisodicOther ear and sense organ disorders (1 source)Sensorineural hearing cenb92-43-4336NlyabgcImlhv female genital disorders (1 source)Abnormal uterine bleeding; Translations: [Abnormal uterine and vaginal bleeding, unspecified]Onset: 88-33-3226AokuawbZncqv gastrointestinal disorders (1 source)Intra-abdominal and pelvic swelling, mass and lump; Translations: [Intra-abdominal and pelvic swelling, mass and lump, unspecified site]Episodic Other injuries and conditions due to external causes (2 sources)History of fall; Translations: [Personal history of fall]Onset: 39-85-1854WlugsfhlXzkuj lower respiratory disease (20 sources)Dyspnea; Translations: [Shortness of breath]Onset: 11-18-2014 66-27-8248UcnfrzsoOeborbf on above:Problem List clean-up per request of Phys. EHR CmteOther nervous system disorders (20 sources)Chronic pain; Translations: [Other chronic pain]64-12-3566Hihchht Other nervous system disorders (20 sources)Other chronic pain; Translations: [Other chronic pain]Onset: 01-28-2022 Resolved: 74-89-5353YkpvhrtHppen nervous system disorders (1 source)Carpal tunnel syndrome; Translations: [Carpal tunnel syndrome, unspecified upper limb]ChronicOther nervous system disorders (1 source)Paresthesia; Translations: [Paresthesia of skin]EpisodicOther non- traumatic joint disorders (1 source)Lower limb joint arthritis; Translations: [Osteoarthrosis, unspecified whether generalized or localized, lower leg]Onset: 77-18-9322UpmstilKqyyy nutritional; endocrine; and metabolic disorders (4 sources)Body mass index 40+ - severely obese; Translations: [Body mass index (BMI) 50.0-59.9, adult]Onset: 67-10-2495CharmziUaqie nutritional; endocrine; and metabolic disorders (2 sources)Morbid obesity; Translations: [Morbid (severe) obesity due to excess calories]24-97-0804ZmfunvhJaxkm nutritional; endocrine; and metabolic disorders (2 sources)Obesity; Translations: [Obesity, unspecified]86-10-4595AlrkyzlYqnmz upper respiratory disease (20 sources)Allergic rhinitis due to pollen; Translations: [Allergic rhinitis due to pollen]19-51-3741SavodevHtpwf upper respiratory disease (1 source)Allergic rhinitis due to pollenChronicOther upper respiratory disease (1 source)Seasonal allergic rhinitis; Translations: [Other seasonal allergic rhinitis]Onset: 75-20-2234AbaunqiHjujn upper respiratory disease (1 source)Other specified disorders of nose and nasal sinusesEpisodicPeri-; endo-; and myocarditis; cardiomyopathy (except that caused by tuberculosis or sexually transmitted disease) (1 source)Dilated cardiomyopathy; Translations: [Dilated cardiomyopathy]Chronic Peripheral and visceral atherosclerosis (1 source)Peripheral vascular disease; Translations: [Other peripheral vascular disease]Onset: 79-95-9401NbhngnfJhcqrnhzr; thrombophlebitis and thromboembolism (4 sources)H/O: Deep vein thrombosis; Translations: [Embolism from thrombosis of vein of distal lower extremity]Onset: 046359-44-9509OdfkqsjfIjgkephpy heart disease (3 sources)Pulmonary hypertension; Translations: [Chronic pulmonary heart disease]Onset: 098009-64-2527HvodtsaHjibofreb heart disease (4 sources)H/O: pulmonary embolus; Translations: [Pulmonary thromboembolism] 11-17-7478BzculhimKpzcdkag codes; unclassified (20 sources)Obstructive sleep apnea syndrome; Translations: [Obstructive sleep apnea (adult) (pediatric)]26-31-8646BiminccJpgjjpvi codes; unclassified (20 sources)Obstructive sleep apnea (adult) (pediatric); Translations: [Obstructive sleep apnea (adult)(pediatric)]ChronicResidual codes; unclassified (1 source)Family history of leukemia; Translations: [FAMILY HISTORY OF LEUKEMIA] Onset: 07-44-5770PjbmevgiBdiezuul codes; unclassified (1 source)Family history of malignant neoplasm of other organs or systems; Translations: [FAM HX MALIG NEOPLASM OTH ORGN/SYS]Onset: 52-39-4347Sewknneg Residual codes; unclassified (1 source)Postmenopausal state; Translations: [Asymptomatic menopausal state] EpisodicResidual codes; unclassified (8 sources)Mammogram declined; Translations: [Procedure and treatment not carried out because of patient's decision for unspecified reasons]04-07-2025 EpisodicResidual codes; unclassified (3 sources)Procedure and treatment not carried out because of patient's decision for unspecified reasons; Translations: [Surgical or other procedure not carried out because of patient's decision]16-22-4376EwsnyzwyEmjgjty detachments; defects; vascular occlusion; and retinopathy (20 sources)Epiretinal membrane of right eye; 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, right eye]Onset: 855773-04-1673BxwifliFwik and subcutaneous tissue infections (20 sources)Erysipelas; Translations: [Cellulitis of right lower limb]Onset: 08-17-2017 Resolved: 77-62-6327BfbtppaaNtabgmpdlfe; intervertebral disc disorders; other back problems (20 sources)Solitary sacroiliitis; Translations: [Sacroiliitis, not elsewhere classified]Onset: 02-18-2022 Resolved: 41-91-7468JhaczjvIwglihjanhk; intervertebral disc disorders; other back problems (20 sources)Spinal stenosis of lumbar region; Translations: [Spinal stenosis, lumbar region without neurogenic claudication]Onset: 02-22-2017 Resolved: 791541-45-5238CzmynelbRcsllrd and strains (2 sources)Sprain of ligament of tarsometatarsal joint; Translations: [Sprain of tarsometatarsal ligament of left foot, initial encounter]Onset: 11-07-2018 EpisodicSuperficial injury; contusion (17 sources)Contusion of lower leg; Translations: [Contusion of left lower leg, initial encounter]Onset: 94-43-3660QikwtparTtpmwaq disorders (20 sources)Thyroid nodule; Translations: [Nontoxic single thyroid nodule]Onset: 66-93-6611NcsshvvWqrsjqzazmcl (1 source)Long-term current use of drug therapy; Translations: [Long-term (current) use of other medications]Onset: 35-14-1164Pqznlcpwrhah (1 source)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); Translations: [Post COVID-19 condition, unspecified]Unclassified (1 source)Non-healing surgical wound; Translations: [Non-healing surgical wound] Onset: 55-24-9405Gpcnlgcyuqxm (1 source)Acute candidiasis of vulva and vagina; Translations: [Acute candidiasis of vulva and vagina]Unclassified (1 source)Infection following a procedure, unspecified, initial encounter; Translations: [Infection followinga procedure, unspecified, initial encounter] Onset: 16-37-4877Unoxrowy veins of lower extremity (20 sources)Varicose veins of lower extremity; Translations: [Varicose veins of bilateral lower extremities with other complications]EpisodicViral infection (1 source)Viral infection, unspecifiedEpisodicViral infection (2 sources)COVID-19; Translations: [Disease caused by 2019-nCoV] Past or Other Problems Problem ClassificationProblemDateDocumented DateEpisodic/ChronicAbdominal pain (1 source)Right lower quadrant pain; Translations: [Right lower quadrant pain] Onset: 53-28-1546AsekmhadNscsdnpyn infection; unspecified site (1 source)Bacterial infectious disease; Translations: [Bacterial infection, unspecified, in conditions classified elsewhere and of unspecified site]Onset: 40-34-9469OrhuctrjDylzrgbgtlj and hemorrhagic disorders (1 source)Bleeding; Translations: [Hemorrhagic condition, unspecified]Onset: 96-71-5381XqbabkmtLljnmxgc mellitus without complication (1 source)Impaired fasting glycemia; Translations: [Impaired fasting glucose] Resolved: 10-26-8405UyqgvmysNqqxtbliaj disorders (3 sources)Esophageal disorders; Translations: [Gastro-esophageal reflux disease with esophagitis, without bleeding]Fluid and electrolyte disorders (1 source)Hypokalemia; Translations: [Hypokalemia]Onset: 81-54-8360Lzohiqmz Inflammation; infection of eye (except that caused by tuberculosis or sexually transmitteddisease) (20 sources)Blepharitis of upper and lower eyelids of bilateral eyes; Translations: [Unspecified blepharitis right eye, upper and lower eyelids]Onset: 962286-78-9076OztfxabhUngorxqnfx infection (1 source)Infectious colitis, enteritis and gastroenteritis; Translations: [Infectious gastroenteritis and colitis, unspecified] Resolved: 14-02-0458KqlzgegwEbivt disorders and dislocations; trauma-related (1 source)Current tear of medial cartilage AND/OR meniscus of knee; Translations: [Other tear of medial meniscus, current injury, left knee, initial encounter]Onset: 54-33-9907BcwcishjIsyzgzi and fatigue (1 source)Malaise and fatigue; Translations: [Other malaise and fatigue]Onset: 26-30-7019ZqniloyiDhdefbipcgd chest pain (1 source)Chest pain; Translations: [Chest pain, unspecified]Onset: 02-14-2014 EpisodicOther connective tissue disease (1 source)Achilles tendinitis, left legOnset: 11-07-2021 Resolved: 52-90-1808OkdhdxazEwcdh connective tissue disease (1 source)Arthrodesis statusOnset: 01-28-2022 Resolved: 51-35-6397YbxxabajDezhd connective tissue disease (1 source)Prepatellar bursitis of left knee; Translations: [Prepatellar bursitis, left knee]Onset: 22-96-5526OkbkqqmyJkglk connective tissue disease (1 source)Pain in left lower limb; Translations: [Pain in left leg]Onset: 59-07-5219GyrypjrcLmmwk connective tissue disease (14 sources)Other bursitis of hip, unspecified hip; Translations: [Enthesopathy of hip region]Onset: 467956-00-5672TaayhixuRmdju eye disorders (20 sources)Dry eyes; Translations: [Dry eye syndrome of bilateral lacrimal glands]Onset: 154580-82-7550PjbcnukrKeijr gastrointestinal disorders (4 sources)Intra-abdominal and pelvic swelling, mass and lump, unspecified site; Translations: [INTRA-ABD PELVSWELL MASS LUMP]Onset: 83-69-7682TxufqsyaFcigz injuries and conditions due to external causes (1 source)Contusion; Translations: [Contusion of unspecified site]Onset: 17-12-9631FjikhgbgBnbpn nervous system disorders (1 source)Neurogenic claudication; Translations: [Spinal Stenosis, lumbar region with neurogenic claudication]Onset: 84-64-4972WrgxpcauCgzxb non-traumatic joint disorders (1 source)Pain in left ankle and joints of left footOnset: 11-07-2021 Resolved: 39-62-4531GubtehzmAmtyp non-traumatic joint disorders (1 source)Arthralgia of the ankle and/or foot; Translations: [Pain in joint, ankle and foot]Onset: 76-92-2543LfbuvyoiLhhjn non-traumatic joint disorders (1 source)Knee joint effusion; Translations: [Effusion, left knee]Onset: 02-54-8672XgozfvsfDwiux non-traumatic joint disorders (1 source)Arthralgia of the lower leg; Translations: [Pain in right knee]Onset: 89-38-7932JgedkcsgLmajy screening for suspected conditions (not mental disorders or infectious disease) (6 sources)Encounter for screening mammogram for malignant neoplasm of breast; Translations: [Imaging of abdomen abnormal]Onset: 61-09-4590WknmvujnNpyfi skin disorders (1 source)Mass in head or neck; Translations: [Swelling, mass, or lump in head and neck]Onset: 97-64-5841MalnsmjwBzjbwmpm codes; unclassified (1 source)Asymptomatic menopausal stateOnset: 01-28-2022 Resolved: 30-46-9198DtpdwxpoSskezmmr codes; unclassified (1 source)Family history of ischemic heart disease; Translations: [Family history of ischemic heart disease]Onset: 22-77-7518JmsxzomtGwjcmkhe codes; unclassified (1 source)Edema; Translations: [Edema]Onset: 88-10-4276UcfhmxxnThfyrxxx codes; unclassified (1 source)Requires influenza virus vaccination; Translations: [Need for prophylactic vaccination and inoculation, Influenza]Onset: 39-32-0100Ntftmkgn Residual codes; unclassified (1 source)Localized edema; Translations: [Localized edema]Onset: 10-07-2016 EpisodicScreening and history of mental health and substance abuse codes (1 source)History of tobacco use; Translations: [Personal history of tobacco use, presenting hazards to health]Onset: 53-75-8231UwuhpbgaCblkyujbcqpn (1 source)Low back pain, unspecified M54.50Onset: 01-28-2022 Resolved: 74-72-9413Plxsuypfmkgq (1 source)Acute cough R05.1Unclassified (1 source)Suspected COVID-19 virus infection Z20.822 Results Test NameValueInterpretationReference RangeFacilityBasophils Auto (Bld) [#/Vol] on 64-24-5042Lvdvjgoyb (Bld) [#/Vol]Automated basophil count0.0-0.1FMercy Health St. Rita's Medical CenterBasophils (Bld) [#/Vol]0.0 10 3/uL0.0-0.1FMercy Health St. Rita's Medical CenterBasophils/100 WBC Auto (Bld)on 64-65-8156Qsigesxnz/100 WBC (Bld)Automated basophil %0.2-2.0[facility] Basophils/100 WBC (Bld)0.6 %0.2-2.0[facility]burgCholesterol in LDL Calc [Mass/Vol]on 62-67-3041Wwtpycnrqhp in LDL [Mass/Vol]Cholesterol in LDL [Mass/volume] in Serum or Plasma by calculationKettering Health MiamisburgComment on above:<100 mg/dl FHYAVHD032-712 mg/dl NEAR OR ABOVE JKAVGYD967- 159 mg/dl BORDERLINE UWCY471-537 mg/dl HIGH>190 mg/dl VERY HIGHCholesterol in LDL [Mass/Vol]52.0 mg/dLKettering Health MiamisburgComment on above:<100 mg/dl MKOVUUD733-194 mg/dl NEAR OR ABOVE WWVSNKS774-004 mg/dl BORDERLINE IUSC275-772 mg/dl HIGH>190 mg/dl VERY HIGHCholesterol in VLDL Calc [Mass/Vol]on 93-63-1056Mvqudwnzfad in VLDL [Mass/Vol]Cholesterol in VLDL [Mass/volume] in Serum or Plasma by calculationK[facility]tering Health MiamisburgCholesterol in VLDL [Mass/Vol]10.0 mg/dLKettering Health MiamisburgEosinophils/100 WBC Auto (Bld)on 86-57-5182Rrtraysbmne/100 WBC (Bld)Automated eosinophil %0.9-7.0 [facility]burgEosinophils/100 WBC (Bld)1.3 %0.9-7.0[facility]burgErythrocyte distribution width Auto (RBC) [Ratio]on 74-93-2948Madpbxmefwn distribution width (RBC) [Ratio]Erythrocyte distribution width [Ratio] by Automated count11.0-15.0[facility] Erythrocyte distribution width (RBC) [Ratio]14.6 %11.0-15.0[facility] MiamisburgEstimated glomerular filtration rate (GFR) non- Americanon 33-31-8348HNZ/1.73 sq M.predicted among non-blacks MDRD (S/P/Bld) [Vol rate/Area]Estimated glomerular filtration rate (GFR) non->=60 mL/min/1.73m 2FMercy Health St. Rita's Medical CenterGFR/1.73 sq M.predicted among non-blacks MDRD (S/P/Bld) [Vol rate/Area]mL/min/{1.73_m2}>=60 mL/min/1.73m 2 [facility]burgGlobulin Calc (S) [Mass/Vol]on 04-18-2025 Globulin (S) [Mass/Vol]Serum globulin measurement by calculation (mass/volume) [facility]burgGlobulin (S) [Mass/Vol]3.5 g/dLKettering Health MiamisburgGlucose mean value [Mass/volume] in Blood Estimated from glycated hemoglobinon 32-28-4933Ytdlaiu glucose Estimated from glycated hemoglobin (Bld) [Mass/Vol]Glucose mean value [Mass/volume] in Blood Estimated from glycated hemoglobinKettering Health MiamisburgAverage glucose Estimated from glycated hemoglobin (Bld) [Mass/Vol]154 mg/dLKettering Health MiamisburgHematocrit Auto (Bld) [Volume fraction]on 34-28-4248Ragphikczb (Bld) [Volume fraction]Hematocrit [Volume Fraction] of Blood by Automated count 36.0-48.0[facility]burgHematocrit (Bld) [Volume fraction]41.2 %36.0-48.0[facility]burgHemoglobin A1c percentageon 65-62-5717RwA5t (Bld) [Mass fraction]Hemoglobin A1c percentageHigh4.5-6.2 [facility]amisburgComment on above:ADA RECOMMENDED LIMIT 4.0 - 6.0ADA THERAPEUTIC TARGET < 7.0ACTION SUGGESTED> 7.0HbA1c (Bld) [Mass fraction] 7.0 %High4.5-6.2FMercy Health St. Rita's Medical CenterComment on above:ADA RECOMMENDED LIMIT 4.0 - 6.0ADA THERAPEUTIC TARGET < 7.0ACTION SUGGESTED> 7.0 Hemoglobin [Mass/volume] in Bloodon 32-95-2559Lkjlfuczfa (Bld) [Mass/Vol] Hemoglobin [Mass/volume] in Blood12.0-16.0[facility] Hemoglobin (Bld) [Mass/Vol]13.3 g/dL12.0-16.0[facility] - Chemistry and Chemistry - challengeon 82-03-4261Kofeudi [Mass/Vol] 3.5 g/dL3.4-5.0[facility]burgALP [Catalytic activity/Vol]103 U/H66-319SrbfswatdKettering Health MiamisburgALT [Catalytic activity/Vol]25 U/L 14-59[facility]burgAST [Catalytic activity/Vol]16 U/L15-37 [facility]burgBilirubin [Mass/Vol]0.9 mg/dL0.2-1.0[facility]burgCalcium [Mass/Vol]9.6 mg/dL8.5-10.1FMercy Health St. Rita's Medical CenterChloride [Moles/Vol]103 mmol/Z38-760WncdzzsvqKettering Health MiamisburgCholesterol [Mass/Vol]140 mg/dL<=200[facility] Cholesterol in HDL [Mass/Vol]78 mg/pEBzww58-16KlvcbslvcKettering Health [facility]burg Comment on above:> or =60 mg/dl - LOW CARDIOVASCULAR RISK<40 mg/dl - HIGH CARDIOVASCULAR RISKCO2 [Moles/Vol]30.8 mmol/L21.0-32.0[facility]amisburgCreatinine [Mass/Vol]0.80 mg/dL0.55-1.02[facility] GFR/1.73 sq M.predicted MDRD (S/P/Bld) [Vol rate/Area]mL/min/{1.73_m2}>=60 mL/min/1.73m 2FMercy Health St[address] Rita's Medical CenterGlucose [Mass/Vol]123 mg/dLHigh 74-106[facility]burgPotassium [Moles/Vol]4.3 mmol/L3.5-5.1 [facility]burgProtein [Mass/Vol]7.0 g/dL6.4-8.2FSouthview Medical Centerodium [Moles/Vol]142 mmol/N166-500QjggfxlrtKettering Health MiamisburgTriglyceride [Mass/Vol]50 mg/dL<=150[facility]amisburgTSH Qn0.678 m[IU]/L0.358-3.740[facility]amisburgUrea nitrogen [Mass/Vol]16.0 mg/dL7.0-18.0[facility]amisburgUrea nitrogen/Creatinine [Mass ratio]20.0 mg/mgKettering Health Miamisburg Laboratory - Hematology and Cell countson 97-27-3091Cgtfteev granulocytes/100 WBC (Bld)0.6 %High0.0-0.5FMercy Health St. Rita's Medical CenterLeukocytes [#/volume] corrected for nucleated erythrocytes in Blood by Automated counon 71-32-3068PSF corrected for nucl RBC Auto (Bld) [#/Vol]Leukocytes [#/volume] corrected for nucleated erythrocytes in Blood by Automated coun4.0-11.0[facility]amisburgWBC corrected for nucl RBC Auto (Bld) [#/Vol]5.4 10 3/uL4.0-11.0 [facility]burgLymphocytes Auto (Bld) [#/Vol]on 04-18-2025 Lymphocytes (Bld) [#/Vol]Lymphocytes [#/volume] in Blood by Automated countLow 1.2-3.8[facility]burgLymphocytes (Bld) [#/Vol]0.7 10 3/uLLow 1.2-3.8[facility]burgLymphocytes/100 WBC Auto (Bld)on 65-50-1130Nxmusudvmcd/100 WBC (Bld)Lymphocytes/100 leukocytes in Blood by Automated ihqoaMxc44.5-60.0[facility]burgLymphocytes/100 WBC (Bld)13.5 %Low20.5-60.0[facility]H Auto (RBC) [Entitic mass]on 74-41-3030AVP (RBC) [Entitic mass]MCH [Entitic mass] by Automated count 26.7-34.0[facility] (RBC) [Entitic mass]29.2 pg 26.7-34.0[facility] Auto (RBC) [Mass/Vol]on 00-82-9297DWXC (RBC) [Mass/Vol]MCHC [Mass/volume] by Automated count29.9-35.2 [facility] HospitalHC (RBC) [Mass/Vol]32.3 g/dL29.9-35.2 [facility] HospitalV Auto (RBC) [Entitic vol]on 78-30-6163EWD (RBC) [Entitic vol]MCV [Entitic volume] by Automated count81.0-99.0[facility] HospitalV (RBC) [Entitic vol]90.5 fL81.0-99.0[facility]burgMicroalbumin [Mass/volume] in Urineon 17-56-5133Oxmpopn DL <= 20 mg/L (U) [Mass/Vol]Microalbumin [Mass/volume] in Urine<=30.0[facility]amisburgAlbumin DL <= 20 mg/L (U) [Mass/Vol]2.2 mg/dL<=30.0[facility]burgMonocytes Auto (Bld) [#/Vol]on 67-72-3909Zmpxtgfei (Bld) [#/Vol]Automated blood monocyte count0.3-0.8[facility] Monocytes (Bld) [#/Vol]0.5 10 3/uL0.3-0.8[facility] Monocytes/100 WBC Auto (Bld)on 97-66-2090Vvdwrrrth/100 WBC (Bld)Automated monocyte %1.7-12.0[facility]amisburgMonocytes/100 WBC (Bld)8.3 % 1.7-12.0[facility] MiamisburgNeutrophils Auto (Bld) [#/Vol]on 41-47-9411Kxpwmbvarri (Bld) [#/Vol]Neutrophils [#/volume] in Blood by Automated count1.4-6.5FMercy Health St. [facility] Medical CenterNeutrophils (Bld) [#/Vol]4.1 10 3/uL1.4-6.5FMercy Health St. Rita's Medical CenterNeutrophils/100 WBC Auto (Bld)on 69-28-9642Ywomrwouhtw/100 WBC (Bld)Automated neutrophil %High43.0-75.0[facility]burgNeutrophils/100 WBC (Bld)75.7 %High43.0-75.0[facility]burgNo Panel Informationon 70-20-8003Npnzv Random Creatinine 49.06 mg/dL20.00-300.00[facility]burgEosinophils # (Auto)0.1 10 3/uL0.0-0.7FMercy Health St. Rita's Medical CenterImmature Granulocyte # (Auto)0.03 10 3/uL0.00-0.03[facility] MiamisburgPlatelet mean volume Auto (Bld) [Entitic vol]on 82-83-1715Pmlpcjky mean volume (Bld) [Entitic vol]Platelet mean volume [Entitic volume] in Blood by Automated count9.5-13.5FMercy Health St. Rita's Medical CenterPlatelet mean volume (Bld) [Entitic vol]10.2 fL9.5-13.5 [facility]burgPlatelets Auto (Bld) [#/Vol]on 04-18-2025 Platelets (Bld) [#/Vol]Platelets [#/volume] in Blood by Automated rsobj027-948 [facility]amisburgPlatelets (Bld) [#/Vol]194 10 3/pA817-716 [facility]amisburgRBC Auto (Bld) [#/Vol]on 31-57-5120EZM (Bld) [#/Vol]Erythrocytes [#/volume] in Blood by Automated count4.20-5.40[facility]amisburgRBC (Bld) [#/Vol]4.55 10 6/uL4.20-5.40[facility] Healtherum or plasma albumin/globulin mass ratioon 04-18-2025 Albumin/Globulin [Mass ratio]Serum or plasma albumin/globulin mass ratio [facility]burgAlbumin/Globulin [Mass ratio]1.0 {ratio} [facility] Healtherum or plasma anion gap determinationon 03-60-3419Oaexo gap [Moles/Vol]Serum or plasma anion gap determinationKettering Health MiamisburgAnion gap [Moles/Vol]12.5 mmol/LFSouthview Medical Centererum or plasma total cholesterol/high density lipoprotein (HDL) cholesterol mass stephane 05-27-1055Cwazzeulhuc.total/Cholesterol in HDL [Mass ratio]Serum or plasma total cholesterol/high density lipoprotein (HDL) cholesterol mass [facility] CenterComment on above:3.3 - 4.4 LOW RISK4.4 - 7.1 AVERAGE RISK7.1 - 11.0 MODERATE RISK>11.0 HIGH RISK Cholesterol.total/Cholesterol in HDL [Mass ratio]1.8 {ratio}[facility]amisburgComment on above:3.3 - 4.4 LOW RISK4.4 - 7.1 AVERAGE RISK7.1 - 11.0 MODERATE RISK>11.0 HIGH RISKUrine microalbumin/creatinine mass ratioon 10-69-6134Doqxkjb/Creatinine DL <= 20 mg/L (U) [Mass ratio]Urine microalbumin/creatinine mass ratioHigh0.0-29.9[facility] Comment on above:NO MICROALBUMINURIA 0-29 MG/GCLINICAL MICROALBUMINURIA 30-300 MG/GMACROALBUMINURIA >300 MG/GAlbumin/Creatinine DL <= 20 mg/L (U) [Mass ratio] 44.8 mg/gHigh0.0-29.9[facility]amisburgComment on above:NO MICROALBUMINURIA 0-29 MG/GCLINICAL MICROALBUMINURIA 30-300 MG/GMACROALBUMINURIA >300 MG/GGastroenterology Office/Clinic Noteon 18-06-2523Bgakmwybtkuarnob Office/Clinic NoteGastroenterology Office/Clinic Note Chief Complaint 3 year colon [...] mm Hg 3077F 2. Chronic anticoagulation (Z79.01: custodial (current) use of anticoagulants) 3. Redundant colon [...] age, and redundant colon. Patient wants to thinkabout proceeding with colonoscopy before scheduling it. Will [...] days ago Toba (more content not included)... [facility] HospitalComment on above:Result Comment: Electronically Signed By: Carmen Goss MA\.ru\Date and Time Signed: 04/11/25 10:07 EDT Ambulatory Visit Summaryon 32-74-9044Eigloegonk Visit SummaryAmbulatory Visit Summary SANDRA TAVAREZ :1940 Visit Date:04/01/2025 Ambulatory Visit Instructions Your Diagnosis Cecal polyp Chronic anticoagulation Redundant colon Your Care Team Attending Physician - Lacie JENNINGS, Jeff Morales Primary Care Physician - GENNA SIERRA ROBERT This Is Your Medications List Contact [...] 1 Capsules By Mouth Every other day Contactprescribing physician if questions or concerns Unchanged levetiracetam [...] you for choosing us for your care. [facility] HospitalAmbulatory Visit Summaryon 65-17-9904Xgtwfykvbg Visit SummaryAmbulatory Visit Summary BARBARA TAVAREZRA Umana :1940 Visit Date:02/26/2025 Ambulatory Visit Instructions Your [...] you for choosing us for your care. NormalFishnancy CarBaltimore VA Medical CenterINR in Platelet poor plasma by Coagulation assayOrdered By: Michael Dunaway on 69-59-0856LIY Coag (PPP) [Relative time]INR in Platelet poor plasma by Coagulation assayKettering Health MiamisburgComment on above:INR Therapeutic Range A) Pre- and Peroperative OAT started two weeks before surgery. NOT HIP SURGERY: 1.5 - 2.5 HIP SURGERY: 2 - 3B) Primary and secondary prevention of venous THROMBOSIS: 2 - 3C) Active venous thrombosis, pulmonary embolismand prevention of recurrent venous thrombosis: 2 - 3D) Prevention of arterial thromboembolismincluding patients with mechanical heart valves: 3 - 4.5Partial Thromboplastin Timeon 87-01-1972sMHT Coag (Bld) [Time]29.0 nOlhlba24.1-36.5[facility] Physician GroupComment on above:Result Comment: A hematocrit value greater than 55% may lead to inaccurate results in coagulation testing. Patients having hematocrit values >55% require a special collection tube for coagulation studies. Please contact the laboratory at [phone] for redraw instructions. PERFORMED BY: [address] [place] [id number] PATHOLOGIST INTERNATIONAL ACCOUNT REPRESENTATIVE ESDRAS MOREL M.D.Performed By: #### PT, PTT #### [place] [address] USAProthrombin Time INRon 80-46-7704XIM Coag (PPP) [Relative time]1.1 {INR}NormalThe [facility] Physician GroupComment on above:Result Comment: INR Therapeutic Range A) Pre- and [...] patients with mechanical heart valves: 3 - 4.5Performed By: #### PT, PTT #### [facility] [address] [place] [address] USAPT Coag (PPP) [Time]13.1 sHigh9.0-12.9[facility] Physician GroupComment on above:Result Comment: A hematocrit value greater than 55% may lead to inaccurate results in coagulation testing. Patients having hematocrit values >55% require a special collection tube for coagulation studies. Please contact the laboratory at [phone] for redraw instructions.Performed By: #### PT, PTT #### [facility] [address] [place] [address] USAProthrombin time (PT)Ordered By: Michael Dunaway on 12-26-2024 PT Coag (PPP) [Time]Prothrombin time (PT)High9.0-12.9[facility]burgComment on above:A hematocrit value greater than 55% may lead to inaccurate results in coagulation testing. Patientshaving hematocrit values >55% require a special collection tube for coagulation studies. Please contact the laboratory at [phone] for redraw instructions.aPTT in Platelet poor plasma by Coagulation assayOrdered By: Michael Dunaway on 72-33-8708fNWH Coag (PPP) [Time] Activated partial thromboplastin time (aPTT) in platelet poor plasma by coagulation a25.1-36.5FMercy Health St. Rita's Medical CenterComment on above:A hematocrit value greater than 55% may lead to inaccurate results in coagulation testing. Patientshaving hematocrit values >55% require a special collection tube for coagulation studies. Please contact the laboratory at [phone] for redraw instructions.INR in Platelet poor plasma by Coagulation assayOrdered By: Michael Dunaway on 11-52-1587MEL Coag (PPP) [Relative time]INR in Platelet poor plasma by Coagulation assayKettering Health MiamisburgComment on above:INR Therapeutic Range A) Pre- and Peroperative OAT started two weeks before surgery. NOT HIP SURGERY: 1.5 - 2.5 HIP SURGERY: 2 - 3B) Primary and secondary prevention of venous THROMBOSIS: 2 - 3C) Active venous thrombosis, pulmonary embolismand prevention of recurrent venous thrombosis: 2 - 3D) Prevention of arterial thromboembolismincluding patients with mechanical heart valves: 3 - 4.5 Prothrombin Time INRon 14-44-7319JBE Coag (PPP) [Relative time]1.6 {INR}Normal [facility] Physician GroupComment on above:Result Comment: INR Therapeutic Range A) Pre- and [...] heart valves: 3 - 4.5 PERFORMED BY: [place] [address] PATHOLOGIST INTERNATIONAL ACCOUNT REPRESENTATIVE ESDRAS MOREL M.D.Performed By: #### PT #### [facility] [address] [place] [address] USAPT Coag (PPP) [Time]18.8 sHigh9.0-12.9The [facility] Physician GroupComment on above:Result Comment: A hematocrit value greater than 55% may lead to inaccurate results in coagulation testing. Patients having hematocrit values >55% require a special collection tube for coagulation studies. Please contact the laboratory at [phone] for redraw instructions.Performed By: #### PT #### [facility] [address] [place], [place] [id number] USAProthrombin time (PT)Ordered By: Michael Dunaway on 12-24-2024 PT Coag (PPP) [Time]Prothrombin time (PT)High9.0-12.9[facility]amisburgComment on above:A hematocrit value greater than 55% may lead to inaccurate results in coagulation testing. Patientshaving hematocrit values >55% require a special collection tube for coagulation studies. Please contact the laboratory at [phone] for redraw instructions.Basophils Auto (Bld) [#/Vol] on 31-20-0878Dalcztkbs (Bld) [#/Vol]Automated basophil count0.0-0.1FMercy Health St. Rita's Medical CenterBasophils/100 WBC Auto (Bld)on 07-07-6364Cnajtcaxi/100 WBC (Bld)Automated basophil %0.2-2.0[facility] Eosinophils/100 WBC Auto (Bld)on 97-03-1004Lsfgmdvvgih/100 WBC (Bld)Automated eosinophil %0.9-7.0[facility]burgErythrocyte distribution width Auto (RBC) [Ratio]on 52-43-2850Qdvhyydwigs distribution width (RBC) [Ratio]Erythrocyte distribution width [Ratio] by Automated count11.0-15.0 [facility]amisburgGlucose mean value [Mass/volume] in Blood Estimated from glycated hemoglobinon 61-65-7271Hqedisx glucose Estimated from glycated hemoglobin (Bld) [Mass/Vol]Glucose mean value [Mass/volume] in Blood Estimated from glycated hemoglobinKettering Health MiamisburgHematocrit Auto (Bld) [Volume fraction]on 06-44-7252Uznobmzgcg (Bld) [Volume fraction] Hematocrit [Volume Fraction] of Blood by Automated count36.0-48.0[facility] MiamisburgHemoglobin [Mass/volume] in Bloodon 30-88-1408Ipzcbnlrcz (Bld) [Mass/Vol]Hemoglobin [Mass/volume] in Blood12.0-16.0[facility]burgLaboratory - Chemistry and Chemistry - challengeon 12-12-2024 Ferritin [Mass/Vol]39.0 ng/mL8.0-252.0[facility] - Hematology and Cell countson 63-99-0105KfV3j (Bld) [Mass fraction] 6.5 %High4.5-6.2FMercy Health St. Rita's Medical CenterComment on above:ADA RECOMMENDED LIMIT 4.0 - 6.0ADA THERAPEUTIC TARGET < 7.0ACTION SUGGESTED> 7.0 Immature granulocytes/100 WBC (Bld)0.4 %0.0-0.5FMercy Health St. Rita's Medical Center Leukocytes [#/volume] corrected for nucleated erythrocytes in Blood by Automated counon 56-18-8631CDM corrected for nucl RBC Auto (Bld) [#/Vol]Leukocytes [#/volume] corrected for nucleated erythrocytes in Blood by Automated coun 4.0-11.0[facility] MiamisburgLymphocytes Auto (Bld) [#/Vol]on 23-73-8836Gzfuyohmugn (Bld) [#/Vol]Lymphocytes [#/volume] in Blood by Automated countLow1.2-3.8[facility] MiamisburgLymphocytes/100 WBC Auto (Bld)on 38-40-5086Rfgntcxfrkc/100 WBC (Bld)Lymphocytes/100 leukocytes in Blood by Automated mpeqaHsc26.5-60.0[facility] HospitalH Auto (RBC) [Entitic mass]on 91-37-9380SIS (RBC) [Entitic mass]MCH [Entitic mass] by Automated count26.7-34.0[facility] MiamisburgMCHC Auto (RBC) [Mass/Vol]on 71-85-3840JFCC (RBC) [Mass/Vol]MCHC [Mass/volume] by Automated count29.9-35.2FMercy Health St. Rita's Medical CenterMCV Auto (RBC) [Entitic vol]on 65-40-7298BIK (RBC) [Entitic vol]MCV [Entitic volume] by Automated count 81.0-99.0[facility]amisburgMonocytes Auto (Bld) [#/Vol]on 08-80-7936Tryrqkasr (Bld) [#/Vol]Automated blood monocyte count0.3-0.8[facility]burgMonocytes/100 WBC Auto (Bld)on 47-21-7063Cftwikcpi/100 WBC (Bld)Automated monocyte %1.7-12.0[facility] Neutrophils Auto (Bld) [#/Vol]on 97-86-4671Uqrecxfadoo (Bld) [#/Vol]Neutrophils [#/volume] in Blood by Automated count1.4-6.5FMercy Health St. Rita's Medical Center Neutrophils/100 WBC Auto (Bld)on 73-10-8872Cykwjqkjlkd/100 WBC (Bld)Automated neutrophil %High43.0-75.0[facility]burgNo Panel Informationon 60-24-1276Kibitpmimtm # (Auto)0.1 10 3/uL0.0-0.7FMercy Health St. Rita's Medical CenterImmature Granulocyte # (Auto)0.02 10 3/uL0.00-0.03[facility] MiamisburgPlatelet mean volume Auto (Bld) [Entitic vol]on 28-16-6472Qwpgypyy mean volume (Bld) [Entitic vol]Platelet mean volume [Entitic volume] in Blood by Automated count9.5-13.5FMercy Health St. Rita's Medical CenterPlatelets Auto (Bld) [#/Vol]on 75-90-4124Uuilqgmzl (Bld) [#/Vol]Platelets [#/volume] in Blood by Automated xuedg886-073AhbizhixdKettering Health MiamisburgRBC Auto (Bld) [#/Vol]on 20-95-6641JTR (Bld) [#/Vol]Erythrocytes [#/volume] in Blood by Automated count 4.20-5.40[facility] MiamisburgINR in Platelet poor plasma by Coagulation assayOrdered By: Michael Dunaway on 50-48-5120OUC Coag (PPP) [Relative time]1.3 {INR}NormalKettering Health MiamisburgComment on above:INR Therapeutic Range A) Pre- and Peroperative OAT started two weeks before surgery. NOT HIP SURGERY: 1.5 - 2.5 HIP SURGERY: 2 - 3B) Primary and secondary prevention of venous THROMBOSIS: 2 - 3C) Active venous thrombosis, pulmonary embolismand prevention of recurrent venous thrombosis: 2 - 3D) Prevention of arterial thromboembolismincluding patients with mechanical heart valves: 3 - 4.5Result Comment: INR Therapeutic Range A) Pre- and [...] heart valves: 3 - 4.5 PERFORMED BY: [place] [address] PATHOLOGIST INTERNATIONAL ACCOUNT REPRESENTATIVE HERMELINDO BLUM M.D.Performed By: #### PT #### [place] [address] USAProthrombin time (PT)Ordered By: Michael Dunaway on 08-10-2024 PT Coag (PPP) [Time]15.1 sHigh9.0-12.9[facility] MiamisburgComment on above:A hematocrit value greater than 55% may lead to inaccurate results in coagulation testing. Patientshaving hematocrit values >55% require a special collection tube for coagulation studies. Please contact the laboratory at [phone] for redraw instructions.Result Comment: A hematocrit value greater than 55% may lead to inaccurate results in coagulation testing. Patients having hematocrit values >55% require a special collection tube for coagulation studies. Please contact the laboratory at [phone] for redraw instructions.Performed By: #### PT #### [facility] [address] [place] [address] USAINR in Platelet poor plasma by Coagulation assayOrdered By: Michael Dunaway on 74-96-4757PFZ Coag (PPP) [Relative time]1.7 {INR}Normal [facility] MiamisburgComment on above:INR Therapeutic Range A) Pre- and Peroperative OAT started two weeks before surgery. NOT HIP SURGERY: 1.5 - 2.5 HIP SURGERY: 2 - 3B) Primary and secondary prevention of venous THROMBOSIS: 2 - 3C) Active venous thrombosis, pulmonary embolismand prevention of recurrent venous thrombosis: 2 - 3D) Prevention of arterial thromboembolismincluding patients with mechanical heart valves: 3 - 4.5Result Comment: INR Therapeutic Range A) Pre- and [...] heart valves: 3 - 4.5 PERFORMED BY: [address] [address] PATHOLOGIST INTERNATIONAL ACCOUNT REPRESENTATIVE HERMELINDO BLUM M.D.Performed By: #### PT #### [facility] [address] [place] [address] USAProthrombin time (PT)Ordered By: Michael Dunaway on 08-09-2024 PT Coag (PPP) [Time]19.0 sHigh9.0-12.9[facility] MiamisburgComment on above:A hematocrit value greater than 55% may lead to inaccurate results in coagulation testing. Patientshaving hematocrit values >55% require a special collection tube for coagulation studies. Please contact the laboratory at [phone] for redraw instructions.Result Comment: A hematocrit value greater than 55% may lead to inaccurate results in coagulation testing. Patients having hematocrit values >55% require a special collection tube for coagulation studies. Please contact the laboratory at [phone] for redraw instructions.Performed By: #### PT #### [facility] [address] [place] [address] [facility] lumbar spine wo conon 86-82-3644FP lumbar spine wo con [facility] [address] [place] [address] [place] [address] MRI Report Signed Patient: Sandra Tavarez MR#: [id number] 7 : 1940 Acct:[id number] Age/Sex: 83 / F ADM Date: 06/15/24 Loc: MR Room: Type: [facility] Attending Dr: Michael Dunaway MD [...] Tex Diaz M.D.06/15/2024 8:35 PM Dictation Location: [place] [address] Transcribed By: SHAHIDA 06/15/242034 Dictated By: Tex Diaz II, MD 06/15/242025 Signed By: 06/15/242034NoUNC Health Physician GroupINR in Platelet poor plasma by Coagulation assayon 61-61-5011MHY Coag (PPP) [Relative time]1.36 {INR}[facility]amisburgComment on above:DESIRED INR:2.0-3.0 CONDITIONS NOT LISTED BELOW2.5-3.5 FOR PROSTHETIC HEART VALVE REPLACEMENT2.5-3.5 RECURRENT THROMBOSISProthrombin time (PT)on 24-51-5222XY Coag (PPP) [Time]14.0 sHigh 9.0-11.6FMercy Health St. Rita's Medical CenterXR pelvis 1-2Von 69-12-7016TW pelvis 1-2[facility] [place] [address] [place] [address] XRay Report Signed Patient: Sandra Tavarez MR#: [id number] 7 : 1940 Acct:[id number] Age/Sex: 83 / F ADM Date: 05/07/24 Loc: XD Room: Type: PRE CLI Attending Dr: Michael Dunaway MD Copies to: Michael Dunaway MD Ordering Provider: Michael Dunaway MD Date of Service: 05/09/24 XR/XR pelvis 1-2V: M70.70 - Other bursitis of hip, unspecified hip ([id number]) XR/XR lumbar spine AP/LAT/FLX/EXT: M47.817 - Spondylosis without myelopathy or radiculopathy... ([id number]) XR/XR sacrum coccyx min 2V: M47.818 - [...] Orozco Jr., D.OKen05/09/2024 3:59 PM Dictation Location: [place] [address] Transcribed By: [facility] 05/09/24 1559 Dictated By: Jaspreet Orozco Jr, DO 05/09/24 1556 Signed By: 05/09/24 1559[facility] Physician GroupINR in Platelet poor plasma by Coagulation assayOrdered By: Michael Dunaway on 68-34-6535RMR Coag (PPP) [Relative time]2.0 {INR}NormalKettering Health MiamisburgComment on above:INR Therapeutic Range A) Pre- and Peroperative OAT started two weeks before surgery. NOT HIP SURGERY: 1.5 - 2.5 HIP SURGERY: 2 - 3B) Primary and secondary prevention of venous THROMBOSIS: 2 - 3C) Active venous thrombosis, pulmonary embolismand prevention of recurrent venous thrombosis: 2 - 3D) Prevention of arterial thromboembolismincluding patients with mechanical heart valves: 3 - 4.5Result Comment: INR Therapeutic Range A) Pre- and [...] heart valves: 3 - 4.5 PERFORMED BY: [place] [address] PATHOLOGIST INTERNATIONAL ACCOUNT REPRESENTATIVE HERMELINDO BLUM M.D.Performed By: #### PT #### [place] [address] USAProthrombin time (PT)Ordered By: Michael Dunaway on 05-07-2024 PT Coag (PPP) [Time]22.3 sHigh9.0-12.9[facility] Medical CenterComment on above:A hematocrit value greater than 55% may lead to inaccurate results in coagulation testing. Patientshaving hematocrit values >55% require a special collection tube for coagulation studies. Please contact the laboratory at [phone] for redraw instructions.Result Comment: A hematocrit value greater than 55% may lead to inaccurate results in coagulation testing. Patients having hematocrit values >55% require a special collection tube for coagulation studies. Please contact the laboratory at [phone] for redraw instructions.Performed By: #### PT #### [place] [address] USABasophils Auto (Bld) [#/Vol]on 72-35-4442Wfcexurhy (Bld) [#/Vol]0.0 10 3/uL0.0-0.1FMercy Health St. Rita's Medical CenterBasophils/100 WBC Auto (Bld)on 86-50-3899Ycdnedkrg/100 WBC (Bld)0.7 %0.2-2.0[facility]amisburgCholesterol in LDL Calc [Mass/Vol]on 88-48-4842Uoszgbhaxgt in LDL [Mass/Vol]43.0 mg/dLKettering Health MiamisburgComment on above:<100 mg/dl BTTNLFY221-071 mg/dl NEAR OR ABOVE YKEMKVD077-385 mg/dl BORDERLINE TVBF473-286 mg/dl HIGH>190 mg/dl VERY HIGHCholesterol in VLDL Calc [Mass/Vol]on 04-30-2024 Cholesterol in VLDL [Mass/Vol]10.6 mg/dLKettering Health Miamisburg Eosinophils/100 WBC Auto (Bld)on 50-26-3351Itotgugebzz/100 WBC (Bld)1.9 %0.9-7.0 [facility] MiamisburgErythrocyte distribution width Auto (RBC) [Ratio]on 41-78-5926Ybltoccqnxp distribution width (RBC) [Ratio]13.6 %11.0-15.0 [facility]amisburgEstimated glomerular filtration rate (GFR) non- Americanon 21-72-1546DHI/1.73 sq M.predicted among non-blacks MDRD (S/P/Bld) [Vol rate/Area]mL/min/{1.73_m2}>=60[facility] Globulin Calc (S) [Mass/Vol]on 84-20-4886Pwxezdry (S) [Mass/Vol]3.4 g/dL [facility] MiamisburgGlucose mean value [Mass/volume] in Blood Estimated from glycated hemoglobinon 20-39-4375Rqqephw glucose Estimated from glycated hemoglobin (Bld) [Mass/Vol]137 mg/dLKettering Health Miamisburg Hematocrit Auto (Bld) [Volume fraction]on 55-93-7333Cggjrnemxj (Bld) [Volume fraction]39.8 %36.0-48.0[facility] MiamisburgHemoglobin [Mass/volume] in Bloodon 69-23-0132Zbrodygczv (Bld) [Mass/Vol]13.0 g/dL12.0-16.0 [facility] MiamisburgLaboratory - Chemistry and Chemistry - challengeon 78-65-1072Fqollmd [Mass/Vol]3.5 g/dL3.4-5.0[facility] MiamisburgALP [Catalytic activity/Vol]89 U/T73-163SoenlnwitKettering Health MiamisburgALT [Catalytic activity/Vol]25 U/G14-06VqvvtodaqKettering Health Miamisburg AST [Catalytic activity/Vol]21 U/R95-62QesrbuiveKettering Health Miamisburg Bilirubin [Mass/Vol]1.1 mg/dLHigh0.2-1.0[facility] MiamisburgCalcium [Mass/Vol]9.3 mg/dL8.5-10.1FMercy Health St. Rita's Medical CenterChloride [Moles/Vol]105 mmol/V10-314LbvhxeooyKettering Health MiamisburgCholesterol [Mass/Vol]123 mg/dL<=200[facility] MiamisburgCholesterol in HDL [Mass/Vol]70 mg/oYEmqc62-28KcchscfxzKettering Health MiamisburgComment on above:> or =60 mg/dl - LOW CARDIOVASCULAR RISK<40 mg/dl - HIGH CARDIOVASCULAR RISKCO2 [Moles/Vol]26.1 mmol/L21.0-32.0[facility] MiamisburgCreatinine [Mass/Vol]0.71 mg/dL0.55-1.02[facility] MiamisburgGFR/1.73 sq M.predicted MDRD (S/P/Bld) [Vol rate/Area]mL/min/{1.73_m2}>=60[facility] MiamisburgGlucose [Mass/Vol]96 mg/iP24-069YztxdtezbKettering Health Miamisburg Potassium [Moles/Vol]4.0 mmol/L3.5-5.1FMercy Health St. Rita's Medical CenterProtein [Mass/Vol]6.9 g/dL6.4-8.2FSouthview Medical Centerodium [Moles/Vol]141 mmol/O608-107ZikwzevqzKettering Health MiamisburgTriglyceride [Mass/Vol]53 mg/dL <=150K[facility] MiamisburgTSH Qn0.705 m[IU]/L0.358-3.740K[facility] MiamisburgUrea nitrogen [Mass/Vol]16.0 mg/dL7.0-18.0[facility] MiamisburgUrea nitrogen/Creatinine [Mass ratio]22.5 mg/mgKettering Health MiamisburgLaboratory - Hematology and Cell countson 28-26-9932LmX2f (Bld) [Mass fraction]6.4 %High4.5-6.2FMercy Health St. Rita's Medical CenterComment on above:ADA RECOMMENDED LIMIT 4.0 - 6.0ADA THERAPEUTIC TARGET < 7.0ACTION SUGGESTED> 7.0Immature granulocytes/100 WBC (Bld)0.4 %0.0-0.5FMercy Health St. Rita's Medical CenterLeukocytes [#/volume] corrected for nucleated erythrocytes in Blood by Automated counon 11-39-4144XOR corrected for nucl RBC Auto (Bld) [#/Vol]5.3 10 3/uL4.0-11.0[facility] MiamisburgLymphocytes Auto (Bld) [#/Vol]on 93-26-0612Oqebchdihvp (Bld) [#/Vol]1.0 10 3/uLLow1.2-3.8 [facility] MiamisburgLymphocytes/100 WBC Auto (Bld)on 04-30-2024 Lymphocytes/100 WBC (Bld)17.8 %Low20.5-60.0[facility] MiamisburgMCH Auto (RBC) [Entitic mass]on 11-93-5554GPN (RBC) [Entitic mass]30.1 pg26.7-34.0 [facility] MiamisburgMCHC Auto (RBC) [Mass/Vol]on 29-21-5385IIII (RBC) [Mass/Vol]32.7 g/dL29.9-35.2FMercy Health St. Rita's Medical CenterMCV Auto (RBC) [Entitic vol]on 47-06-6161DAV (RBC) [Entitic vol]92.1 fL81.0-99.0[facility] MiamisburgMonocytes Auto (Bld) [#/Vol]on 24-57-6931Nsgfftjus (Bld) [#/Vol]0.6 10 3/uL0.3-0.8[facility] MiamisburgMonocytes/100 WBC Auto (Bld)on 72-49-9290Miqmhvxbm/100 WBC (Bld)10.3 %1.7-12.0[facility] MiamisburgNeutrophils Auto (Bld) [#/Vol]on 21-98-2679Ptgkmwajrhc (Bld) [#/Vol]3.7 10 3/uL1.4-6.5FMercy Health St. Rita's Medical CenterNeutrophils/100 WBC Auto (Bld)on 76-91-0306Orsjrtsgyrq/100 WBC (Bld)68.9 %43.0-75.0[facility] MiamisburgNo Panel Informationon 40-31-2360Dstmmpewhsu # (Auto)0.1 10 3/uL0.0-0.7FMercy Health St. Rita's Medical CenterImmature Granulocyte # (Auto)0.02 10 3/uL0.00-0.03[facility] MiamisburgPlatelet mean volume Auto (Bld) [Entitic vol]on 65-75-0175Gyoxowhr mean volume (Bld) [Entitic vol]10.5 fL 9.5-13.5FMercy Health St. Rita's Medical CenterPlatelets Auto (Bld) [#/Vol]on 86-32-7108Mzmrrpdrd (Bld) [#/Vol]188 10 3/dD814-992DuomunqqaKettering Health MiamisburgRBC Auto (Bld) [#/Vol]on 71-41-8852TFL (Bld) [#/Vol]4.32 10 6/uL4.20-5.40 [facility] Healtherum or plasma albumin/globulin mass ratioon 75-10-3213Zaxlxcd/Globulin [Mass ratio]1.0 {ratio}[facility] Healtherum or plasma anion gap determinationon 89-61-7147Pkfxs gap [Moles/Vol] 13.9 mmol/LFSouthview Medical Centererum or plasma total cholesterol/high density lipoprotein (HDL) cholesterol mass stephane 04-30-2024 Cholesterol.total/Cholesterol in HDL [Mass ratio]1.8 {ratio}[facility] MiamisburgComment on above:3.3 - 4.4 LOW RISK4.4 - 7.1 AVERAGE RISK7.1 - 11.0 MODERATE RISK>11.0 HIGH RISKBacteria identified Aer cx Nom (Unsp spec) Ordered By: Juancarlos Campbell on 86-28-9186Eztjdogkxax Wound CulturePseudomonas aeruginosaParkview Healthuperficial Wound Cultureon 46-89-6513Hlufxdqdtgy Wound CultureLT POSTERIOR ANKLE AND LEFT LEG ORGANISM: Pseudomonas aeruginosa (O:PSEAER) Quantity of Growth Heavy Growth Aerobic RAINA Charge (NMIC56) SUSCEPTIBILITY ORGANISM: O:PSEAER ANTIBIOTIC INTERPRETATION ARINA Amikacin S <16 Aztreonam IB <4 Cefepime [...] RESISTANT TO ALL B-LACTAM DRUGS. PERFORMED BY: [place] [id number] PATHOLOGIST INTERNATIONAL ACCOUNT REPRESENTATIVE HERMELINDO BLUM M.D.NormalThe [facility] Physician GroupComment on above:Performed By: #### CUSUP #### [address] [address] USAMG MAMM SCREEN 3D KRISTOFER CADon 99-50-1956JX MAMM SCREEN 3D KRISTOFER CADPatient: SANDRA TAVAREZ Exam Date: 04/07/2023 : 1940 Gender:F Ordering : DR ROBERT VAIL D.O. Admission #: [id number] Family : Order #: [id number] CLICK HERE TO VIEW EXAM RADIOLOGY REPORT [...] leukemia cancer at age 43. LOCATION: [facility] BREAST COMPOSITION: Scattered areas fibroglandular density. FINDINGS: [...] by: Nida Alvarez M.D. on 04/07/2023 at 14:36NormalThAdams County HospitalCB AUTO DIFFon 59-11-7755YJTT #0.1 103/ulNormal0.0-0.1[facility] CenterComment on above:Performed By: #### CBC ####[facility] Bvoeouctge[address] [place], [place] [address]Dr.Gaurav ChangBasophils/100 WBC (Bld)0.9 %Normal0.2-2.0The [facility] YoungstownComment on above:Performed By: #### CBC ####[facility] Avahxqapvm[address] [place], [place] [address]Dr.Gaurav ChangEO #0.1 103/ulNormal0.0-0.7The [facility] YoungstownComment on above:Performed By: #### CBC ####[facility] Mhcm[address]gq[address] [place], [place] [address]Dr.Gaurav ChangEosinophils/100 WBC (Bld)1.2 %Normal 0.9-7.0The [facility] YoungstownComment on above:Performed By: #### CBC ####[facility] Shssgpqzwi[address] [place], [place] [address]Dr.Gaurav Louis Erythrocyte distribution width (RBC) [Ratio]13.2 %Yozbog88.0-15.0The [facility] YoungstownComment on above:Performed By: #### CBC ####[facility] Wfpjnhsmyv[address] [place], [place] [address]Dr.Gaurav LouisHematocrit (Bld) [Volume fraction]44.1 %Slgioc22.0-48.0The [facility] YoungstownComment on above:Performed By: #### CBC ####[facility] Yourggbaau[address] [place], [place] [address]Dr.Gaurav ChangHemoglobin (Bld) [Mass/Vol]14.7 g/dL Eggvvm79.0-16.0The [facility] YoungstownComment on above:Performed By: #### CBC ####[facility] Icqxxvepfo[address] [place], [place] [address]Dr. Gaurav LouisIG #0.02 10e3/ulNormal0.00-0.03The [facility]remont HospitalComment on above: Performed By: #### CBC ####[facility] Btbrkwgfzs[address] [place], [place] [address]Dr.Gaurav LouisIG %0.4 %Normal0.0-0.5The [facility] YoungstownComment on above:Performed By: #### CBC ####[facility] [address] [place] [place] [address]Dr.Gaurav LouisMPH #0.9 103/ulCritically low1.2-3.8The [facility] YoungstownComment on above:Performed By: #### CBC ####[facility] Tjxxpfpvzu[address] [place], [place] [address]Dr.Gaurav LouisLymphocytes/100 WBC (Bld)16.5 %Critically low20.5-60.0The [facility] YoungstownComment on above:Performed By: #### CBC ####[facility] Emwwgxkekb[address] [place], [place] [address]Dr.Gaurav LouisMANUAL DIFF REQ NONormalThe [facility] YoungstownComment on above:Performed By: #### CBC ####[facility] Jjwxshqdzx[address] [place], [place] [address]Dr. Gaurav LouisFAXTON HOSPITAL (RBC) [Entitic mass]30.7 buSxelqs98.7-34.0The [facility] Comment on above:Performed By: #### CBC ####[facility] Blkpwhvgcb[address] [place], [place] [address]Dr.Gaurav LouisBERTRAND CHAFFEE [facility] (RBC) [Mass/Vol]33.3 g/dL Uqpuks67.9-35.2The [facility] YoungstownComment on above:Performed By: #### CBC ####[facility] Qdkxumqion[address] [place], [place] [address]Dr. Gaurav LouisV (RBC) [Entitic vol]92.1 aNCqksvq65.0-99.0The [facility] Comment on above:Performed By: #### CBC ####[facility] Unptpqdgwf[address] [place], [place] [address]Dr.Gaurav LouisST. LOUIS CHILDREN'S HOSPITALO #0.5 103/ulNormal0.3-0.8 The [facility] YoungstownComment on above:Performed By: #### CBC ####[facility] Iqhnspcptu[address] [place], [place] [address]Dr.Gaurav Louis Monocytes/100 WBC (Bld)8.0 %Normal1.7-12.0The [facility]stownComhutzel women's hospital on above: Performed By: #### CBC ####[facility] Mwctavveeq[address] [place], [place] [address]Dr.Gaurav LouisNEUT #4.1 103/ulNormal1.4-6.5The [facility] YoungstownComment on above:Performed By: #### CBC ####[facility] Xdlojqawpw[address] [place], [place] [address]Dr.Gaurav LouisNeutrophils/100 WBC (Bld)73.0 %Frzuwx11.0-75.0The [facility]stownComment on above:Performed By: #### CBC ####[facility] Szajkubhgl[address] [place], [place] [address]Dr.Gaurav LouisPlatelet mean volume (Bld) [Entitic vol]10.0 fLNormal9.5-13.5 The [facility]stownComhutzel women's hospital on above:Performed By: #### CBC ####[facility] Ivtybrsxmw[address] [place], [place] [address]Dr.Gaurav JgbnrKNW491 103/kuDmzlpp797-595Kth [facility] YoungstownComment on above:Performed By: #### CBC ####[facility] Sgandpqord[address] [place], [place] [address]Dr. Gaurav ChangRBC4.79 106/ulNormal4.20-5.40The [facility] YoungstownComhutzel women's hospital on above: Performed By: #### CBC ####[facility] Xqlooqbzcv[address] [place], [place] [address]Dr.Gaurav ChangWBC5.6 103/ulNormal4.0-11.0The [facility]stownComhutzel women's hospital on above:Performed By: #### CBC ####[facility] Lhqruznzib[address] [place], [place] [address]Dr.Gaurav LouisGLYCOHEMOGLOBIN A1Con 80-92-3515VLA RECOMMENDATIONSEE [facility] CenterComhutzel women's hospital on above:Result Comment: ADA RECOMMENDED LIMIT 4.0 - 6.0 ADA THERAPEUTIC TARGET < 7.0 ACTION SUGGESTED > 7.0Performed By: #### A1C #### [facility] Laboratory [address] [address] [address] Gaurav LouisGlucose [Mass/Vol]148 mg/dLNoNewark HospitalComment on above:Performed By: #### A1C #### [facility] Laboratory [address] [address] [address] Gaurav LouisHbA1c (Bld) [Mass fraction]6.8 %Critically high4.5-6.2The [facility]stownComment on above:Performed By: #### A1C #### [facility] Laboratory [address] [address] [address] Gaurav LouisLIPID PROFILEon 85-67-7999STEK-HDL RATIO NORMSEE [facility] Health CenterComment on above:Result Comment: 3.3 - 4.4 LOW RISK 4.4 - 7.1 AVERAGE RISK 7.1 - 11.0 MODERATE RISK >11.0 HIGH RISKPerformed By: #### TSH, LIPID, BMP #### [facility] Laboratory [address] [address] [address] Gaurav Pittmanesterol [Mass/Vol]137 mg/dLNormal<=200The [facility] Comment on above:Performed By: #### TSH, LIPID, BMP #### [facility] Laboratory [address] [address] [address] Gaurav LouisCholesterol in HDL [Mass/Vol]63 mg/dLCritically exqr63-26Vzm [facility]stownComment on above:Performed By: #### TSH, LIPID, BMP #### [facility] Laboratory [address] [address] [address] Gaurav LouisCholesterol in LDL [Mass/Vol]57.8 mg/dLKindred HealthcareComment on above:Performed By: #### TSH, LIPID, BMP #### [facility] Laboratory [address] [address] [address] Gaurav Pittmanesterol.total/Cholesterol in HDL [Mass ratio]2.2 {ratio} NormalThe [facility] YoungstownComment on above:Performed By: #### TSH, LIPID, BMP #### [facility] Laboratory [address] [address] [address] Gaurav Amador NORMAL> or = 60 mg/dl - LOW CARDIOVASCULAR RISK <40 mg/dl - HIGH CARDIOVASCULAR RISKKindred HealthcareComment on above:Performed By: #### TSH, LIPID, BMP #### [facility] Laboratory [address] [address] [address] Gaurav LouisLDL CALC NORMALSEE BELOWNoNewark HospitalComment on above:Result Comment: <100 mg/dl OPTIMAL 100 - 129 mg/dl NEAR OR ABOVE OPTIMAL 130 - 159 mg/dl BORDERLINE HIGH 160 - 189 mg/dl HIGH >190 mg/dl VERY HIGH Performed By: #### TSH, LIPID, BMP #### [facility] Laboratory [address] [address] [address] Gaurav LouisTriglyceride [Mass/Vol]81 mg/dLNormal<=150The [facility] Comment on above:Performed By: #### TSH, LIPID, BMP #### [facility] Laboratory [address] [address] [address] Gaurav LouisVLDL CALC16.2 mg/dLNoNewark HospitalComment on above: Performed By: #### TSH, LIPID, BMP #### [facility] Laboratory [address] [address] [address] Gaurav LouisMICROALBUMIN, RAND URon 03-49-0842lZGW0.8 mg/LNormal<=30.0The [facility]stownComment on above:Performed By: #### MALBR #### [facility] Laboratory [address] [address] [address] Gaurav LouisPROF CHEM 8 (BAS METB)on 57-37-3259Bodml gap [Moles/Vol]13.4 mmol/LNormalThe [facility]stownComment on above:Performed By: #### TSH, LIPID, BMP #### [facility] Laboratory [address] [place] [address] Dr. Gaurav LouisCalcium [Mass/Vol]9.7 mg/dLNormal8.5-10.1The [facility] Comment on above:Performed By: #### TSH, LIPID, BMP #### [facility] Laboratory [address] [address] [address] Gaurav LouisChloride [Moles/Vol]103 mmol/DUxkesx35-762Woa [facility] Comment on above:Performed By: #### TSH, LIPID, BMP #### [facility] Laboratory [address] [place] [address] Dr. Gaurav LouisCO2 [Moles/Vol]28.2 mmol/LBkycfm23.0-32.0The [facility] Comment on above:Performed By: #### TSH, LIPID, BMP #### [facility] Laboratory [address] [place] [address] Dr. Gaurav LouisCreatinine [Mass/Vol]0.94 mg/dLNormal0.55-1.02The [facility]stownComment on above:Performed By: #### TSH, LIPID, BMP #### [facility] Laboratory [address] [place] [address] Dr. Gaurav OntiverosGFR-AF PRYDEINIG>60Normal>=60The [facility] YoungstownComment on above:Performed By: #### TSH, LIPID, BMP #### [facility] Laboratory [address] [place] [address] Dr. Gaurav OntiverosGFR-NON AF IXRLQDGO13 mL/min/1.18s2Yokhooxbpy low>=60The [facility]stownComment on above:Performed By: #### TSH, LIPID, BMP #### [facility] Laboratory [address] [place] [address] Dr. Gaurav LouisGlucose [Mass/Vol]155 mg/dLCritically cilm77-604Nbz [facility] YoungstownComment on above:Performed By: #### TSH, LIPID, BMP #### [facility] Laboratory [address] [place] [address] Dr. Gaurav LouisPotassium [Moles/Vol]3.6 mmol/LNormal3.5-5.1[facility] Comment on above:Performed By: #### TSH, LIPID, BMP #### [facility] Laboratory [address] [place] [address] Dr. Gaurav Quickum [Moles/Vol]141 mmol/DCfokpz728-432LgdSouthern [facility] Medical Center Comment on above:Performed By: #### TSH, LIPID, BMP #### [facility] Laboratory [address] [address] [address] Gaurav Tayolr nitrogen [Mass/Vol]19.0 mg/dLCritically high7.0-18.0The [facility]stownComment on above:Performed By: #### TSH, LIPID, BMP #### [facility] Laboratory [address] [place] [address] Dr. Gaurav Taylor nitrogen/Creatinine [Mass ratio]20.2 mg/mgNormalThe [facility] YoungstownComment on above:Performed By: #### TSH, LIPID, BMP #### [facility] Laboratory [address] [place] [address] Dr. Gaurav San 26-80-7223QQT5.784 uIU/mLNormal0.358-3.740The [facility] YoungstownComment on above:Performed By: #### TSH, LIPID, BMP #### [facility] Laboratory [address] [place] [address] Dr. Gaurav Brooks-CoV-2 (COVID-19) RNA LANDEN+probe Ql (Resp)on 09-11-2022 SARS-CoV-2 (COVID-19) RNA LANDEN+probe Ql (Unsp spec)PositiveNopemiscot memorial health systems [employer] Other cbc AUTO DIFFon 13-37-5980CDCJ #0.1 103/ulNormal 0.0-0.1The [facility] YoungstownComment on above:Performed By: #### CBC #### [facility] Laboratory [address] [place] [address] Dr. Gaurav Javierphils/100 WBC (Bld)0.5 %Normal0.2-2.0[facility] Comment on above:Performed By: #### CBC #### [facility] Laboratory [address] [place] [address] Dr. Gaurav Pal #0.1 103/ulNormal0.0-0.7The [facility]remont HospitalComment on above: Performed By: #### CBC #### [facility] Laboratory [address] [place] [address] Dr. Gaurav Ontiverososinophils/100 WBC (Bld)0.7 %Critically low0.9-7.0The [facility] YoungstownComment on above:Performed By: #### CBC #### [facility] Laboratory [address] [place] [address] Dr. Gaurav Ontiverosrythrocyte distribution width (RBC) [Ratio]22.5 %Critically high 11.0-15.0The [facility] YoungstownComment on above:Result Comment: 2+ anisocytosis Performed By: #### CBC #### [facility] Laboratory [address] [place] [address] Dr. Gaurav LouisHematocrit (Bld) [Volume fraction]41.4 %Vbnswu80.0-48.0The [facility] YoungstownComment on above:Performed By: #### CBC #### [facility] Laboratory [address] [place] [address] Dr. Gaurav LouisHemoglobin (Bld) [Mass/Vol]13.4 g/fNWnphpi61.0-16.0The [facility] YoungstownComment on above:Performed By: #### CBC #### [facility] Laboratory [address] [place] [address] Dr. Gaurav Pineda #0.04 10e3/ulCritically high0.00-0.03[facility] Comment on above:Performed By: #### CBC #### [facility] Laboratory [address] [place] [address] Dr. Gaurav Pineda %0.4 %Normal0.0-0.5The [facility] YoungstownComment on above: Performed By: #### CBC #### [facility] Laboratory [address] [place] [address] Dr. Gaurav Sneed #1.1 103/ulCritically low1.2-3.8The [facility] Comment on above:Performed By: #### CBC #### [facility] Laboratory [address] [place] [address] Dr. Yilan ChangLymphocytes/100 WBC (Bld)10.2 %Critically low20.5-60.0The [facility] YoungstownComment on above:Performed By: #### CBC #### [facility] Laboratory [address] [place] [address] Dr. Gaurav Tolentino DIFF REQNONormalThe [facility] YoungstownComment on above: Performed By: #### CBC #### [facility] Laboratory [address] [place] [address] Dr. Gaurav Bowden (RBC) [Entitic mass]28.3 tgGmvocw12.7-34.0The [facility] YoungstownComment on above:Performed By: #### CBC #### [facility] Laboratory [address] [place] [address] Dr. Gaurav Bowden (RBC) [Mass/Vol]32.4 g/wPNjkdfr53.9-35.2The [facility] YoungstownComment on above:Performed By: #### CBC #### [facility] Laboratory [address] [place] [address] Dr. Gaurav Aguilar (RBC) [Entitic vol]87.5 rGXmfsjq27.0-99.0The [facility] YoungstownComment on above:Performed By: #### CBC #### [facility] Laboratory [address] [place] [address] Dr. Gaurav Jennings #0.8 103/ulNormal0.3-0.8The [facility] YoungstownComment on above:Performed By: #### CBC #### [facility] Laboratory [address] [place] [address] Dr. Gaurav Ashocytes/100 WBC (Bld)7.3 %Normal1.7-12.0[facility] Comment on above:Performed By: #### CBC #### [facility] Laboratory [address] [place] [address] Dr. Gaurav Bucio #8.4 103/ulCritically high1.4-6.5The [facility] Comment on above:Performed By: #### CBC #### [facility] Laboratory [address] [place] [address] Dr. Gaurav Yusufutrophils/100 WBC (Bld)80.9 %Critically high43.0-75.0The [facility]stownComment on above:Performed By: #### CBC #### [facility] Laboratory [address] [address] [address] Gaurav Rhoadeslet mean volume (Bld) [Entitic vol]10.0 fLNormal9.5-13.5The [facility] YoungstownComment on above:Performed By: #### CBC #### [facility] Laboratory [address] [address] [address] Gaurav LouisPLT178 103/hqGtrbtl863-253Oxb [facility] YoungstownComment on above: Performed By: #### CBC #### [facility] Laboratory [address] [place] [address] Dr. Gaurav LouisRBC4.73 106/ulNormal4.20-5.40The [facility] YoungstownComment on above:Performed By: #### CBC #### [facility] Laboratory [address] [place] [address] Dr. Gaurav LouisWBC10.3 103/ulNormal4.0-11.0The [facility] YoungstownComment on above:Performed By: #### CBC #### [facility] Laboratory [address] [place] [address] Dr. Gaurav LouisUS SINGLE QUAD LT LOWERon 51-53-2231KC SINGLE QUAD LT LOWEREXAM: US SINGLE QUAD LT LOWER HISTORY: Swollen [...] Electronically authenticated by: NIDA ALVAREZ Date: 2022-04-30 18:10[facility] AUTO DIFFon 73-84-4034HFZE #0.0 103/ulNormal0.0-0.1The [facility]stownComment on above:Performed By: #### CBC #### [facility] Laboratory [address] [address] [address] Gaurav LouisBasophils/100 WBC (Bld)0.6 %Normal0.2-2.0The [facility] Comment on above:Performed By: #### CBC #### [facility] Laboratory [address] [address] [address] Gaurav Pal #0.1 103/ulNormal0.0-0.7The [facility] YoungstownComment on above: Performed By: #### CBC #### [facility] Laboratory [address] [place] [address] Dr. Gaurav Ontiverososinophils/100 WBC (Bld)1.7 %Normal0.9-7.0The [facility] Comment on above:Performed By: #### CBC #### [facility] Laboratory [address] [place] [address] Dr. Gaurav Ontiverosrythrocyte distribution width (RBC) [Ratio]21.1 %Critically high 11.0-15.0The [facility] YoungstownComment on above:Performed By: #### CBC #### [facility] Laboratory [address] [place] [address] Dr. Gaurav LouisHematocrit (Bld) [Volume fraction]33.6 %Critically low36.0-48.0 The [facility] YoungstownComment on above:Performed By: #### CBC #### [facility] Laboratory [address] [place] [address] Dr. Gaurav LouisHemoglobin (Bld) [Mass/Vol]10.0 g/dLCritically low12.0-16.0The [facility]stownComment on above:Performed By: #### CBC #### [facility] Laboratory [address] [place] [address] Dr. Gaurav Pineda #0.02 10e3/ulNormal0.00-0.03The [facility] YoungstownComment on above:Performed By: #### CBC #### [facility] Laboratory [address] [place] [address] Dr. Gaurav Pineda %0.4 %Normal0.0-0.5The [facility] YoungstownComment on above: Performed By: #### CBC #### [facility] Laboratory [address] [address] [address] Gaurav Sneed #1.0 103/ulCritically low1.2-3.8The [facility] Comment on above:Performed By: #### CBC #### [facility] Laboratory [address] [address] [address] Gaurav Goddardhocytes/100 WBC (Bld)18.3 %Critically low20.5-60.0The [facility] YoungstownComment on above:Performed By: #### CBC #### [facility] Laboratory [address] [address] [address] Gaurav Tolentino DIFF REQNONormalThe [facility] YoungstownComment on above: Performed By: #### CBC #### [facility] Laboratory [address] [address] [address] Gaurav Bruce (RBC) [Entitic mass]22.8 pgCritically low26.7-34.0The [facility] YoungstownComment on above:Performed By: #### CBC #### [facility] Laboratory [address] [address] [address] Gaurav Bowden (RBC) [Mass/Vol]29.8 g/dLCritically low29.9-35.2The [facility] YoungstownComment on above:Performed By: #### CBC #### [facility] [facility] [address] [address] [address] Gaurav Bowden (RBC) [Entitic vol]76.7 fLCritically low81.0-99.0The [facility]stownComment on above:Performed By: #### CBC #### [facility] [address] [address] [address] Gaurav Jennings #0.5 103/ulNormal0.3-0.8The [facility] - [place]stownComment on above:Performed By: #### CBC #### [facility] [address] [address] [address] Gaurav Ashocytes/100 WBC (Bld)8.8 %Normal1.7-12.0The [facility] Comment on above:Performed By: #### CBC #### [facility] [address] [address] [address] Gaurav Bucio #3.8 103/ulNormal1.4-6.5The [facility] - [place]stownComment on above:Performed By: #### CBC #### [facility] [address] [address] [address] Gaurav Yusufutrophils/100 WBC (Bld)70.2 %Mjhjoq86.0-75.0The [facility] [place]stownComment on above:Performed By: #### CBC #### [facility] [address] [place] [address] Dr. Gaurav Rhoadeslet mean volume (Bld) [Entitic vol]9.4 fLCritically low 9.5-13.5The [facility] [place]Comment on above:Performed By: #### CBC #### [facility] [address] [place] [address] Dr. Gaurav LouisPLT226 103/qgPvnplx614-931Zep [facility] - [place]stownComment on above: Performed By: #### CBC #### [facility] [address] [place] [address] Dr. Gaurav LouisRBC4.38 106/ulNormal4.20-5.40The [facility] - [place]stownComment on above:Performed By: #### CBC #### [facility] [address] [place] [address] Dr. Gaurav LouisWBC5.4 103/ulNormal4.0-11.0The [facility] - [place]stownComment on above: Performed By: #### CBC #### [facility] [address] [place] [address] Dr. Gaurav LouisXR ankle LT min 3V*on 02-83-4947KZ ankle LT min 3V*[facility] [employer] Other XR ankle LT min 3V*[facility] [employer] Other XR ankle LT min 3V*[address] [place], [place] [address]h [employer] Other XR ankle LT min 3V*LASHONDA Esposito 13629Okscv [employer] Other XR ankle LT min 3V*XRay ReportEvans [employer] Other XR ankle LT min 3V*SignedEvans [employer] Other XR ankle LT min 3V*Patient: Sandra Tavarez MR#: [id number] [employer] Other XR ankle LT min 3V*7Evans [employer] Other XR ankle LT min 3V*: 1940 Acct:[id number] Evans [employer] Other XR ankle LT min 3V*Age/Sex: 80 / F ADM Date: 11/07/21 Evans [employer] Other XR ankle LT min 3V*Loc: XDUCLY Room: Type: [facility] [employer] Other XR ankle LT min 3V*Attending Dr: [facility]uit[facility] [employer] Other XR ankle LT min 3V*Ordering Provider[facility] [employer] Other XR ankle LT min 3V*Date of Service: 11/07/21Evans [employer] Other XR ankle LT min 3V* XR/XR ankle LT min 3V*: Acute left ankle painEvans [employer] Other XR ankle LT min 3V*Copies to: SIRENA Winslow [employer] Other XR ankle LT min 3V*XR ankle LT min 3V* 11/07/2021 12:15 [facility] [employer] Other XR ankle LT min 3V*SIGNS AND SYMPTOMS: Pain along the left Achilles and lateral aspect of the calcaneus, limited rangeNopemiscot memorial health systems [employer] Other XR ankle LT min 3V*of motionNopemiscot memorial health systems [employer] Other XR ankle LT min 3V*PROTOCOL: Frontal, lateral, and oblique radiographs of the left ankleNopemiscot memorial health systems [employer] Other XR ankle LT min 3V*COMPARISON: NoneEvans [employer] Other XR ankle LT min 3V*FINDINGS:[employer] Other XR ankle LT min 3V*The ankle mortise is preserved. There is cortical irregularity along the inferior margin of [employer] Other XR ankle LT min 3V*lateral malleolus which may represent sequelae of a previous avulsive-type injury. There is softEvans [employer] Other XR ankle LT min 3V*tissue swelling diffusely but greatest along the dorsal soft tissues. There is plantar surfaceNopemiscot memorial health systems [employer] Other XR ankle LT min 3V*calcaneal spurring. Vascular calcifications are present. Degenerative changes are noted in [employer] Other XR ankle LT min 3V*midfoot.[employer] Other XR ankle LT min 3V* XR/XR ankle LT min 3V*[employer] Other XR ankle LT min 3V*IMPRESSION:[employer] Other XR ankle LT min 3V*No acute displaced fracture.[employer] Other XR ankle LT min 3V*Diffuse soft tissue swelling greatest posteriorly.[employer] Other XR ankle LT min 3V*There is plantar surface calcaneal spurring.[employer] Other XR ankle LT min 3V*Impression dictated by: Tex Diaz M.D.11/07/2021 12:50 [facility] [employer] Other XR ankle LT min 3V*Dictation Location: [address] [employer] Other XR ankle LT min 3V*Transcribed By: PWS 11/07/[address] [facility] [employer] Other XR ankle LT min 3V*Dictated By: Tex Diaz II, MD 11/07/[address] [employer] Other xr ankle LT min 3V*Signed By:[employer] Other xr ankle LT min 3V*11/07/[address] [place] [address] [employer] Other MAGR Preoperative Recordon [id number] Preoperative RecordMAGR Pre-Op Record Summary Primary Physician: FERNANDO SILVA Finalized Date/Time: 06/04/20 08:46:37 Pt. Name: SANDRA TAVAREZ Lyndsay Lynne./Sex: 1940 FEMALE Med Rec #: [id number] Physician: FERNANDO SILVA Financial #: [id number] Pt. Type: I Room/Bed: Critical access hospital Admit/Disch: 05/23/20 09:44:18 - 05/27/20 15:15:00 Institution: [...] ready for surgery. The patient remains free froms/s of injury. Patient/family express understanding of plan of care and participate in decisions affectinghis or her perioperrative plan of care. Allergies documented appropriately. Patient identifiers and consent correct. Finalized By: Stacy Pena RN Document Signatures Signed By: Stacy Pena RN 06/04/20 08:46[facility] HospitalConsent Formson 94-60-8933Hljizyz [id number]#1.00OTUniversity of Vermont Medical Center HospitalOutside Recordson 21-75-0951Uvccxtu Records [id number]#1.00OTGTSub[facility] Outside [id number]#1.00OTSelect Medical Specialty Hospital - TrumbullProvider Orderson 38-43-5974Bcxdhdwz Orders [id number]#1.00[facility] Telemetry Stripson 38-80-8943Mtpekliia Strips [id number]#1.00OTMcCullough-Hyde Memorial Hospital.Auto Diff 1on 10-44-9823Dabp Rolette %13 %High1-12[facility] Health CenterComment on above: Performed By: #### [id number], [id number], [id number] #### [facility] (DEFAULT) [address] [place] [address] 68474Eysc Abs#0.0 z39Xlytyi4.0-0.2[facility] HospitalComment on above:Performed By: #### [id number], [id number], 3686697 #### [facility] (DEFAULT) [address] [place] [address] 72438Tezjuhpkx/100 WBC (Bld)0.3 %Normal0.2-2.0[facility] Hospital Comment on above:Performed By: #### [id number], [id number], 2806134 #### [facility] (DEFAULT) [address] [place] [address] 36665Vuo Abs#0.1 p04Htdkhj1.0-0.4[facility] HospitalComment on above:Performed By: #### [id number], [id number], 1594845 #### [facility] (DEFAULT) [address] [place] [address] 55211Xmglkxrsgqq/100 WBC (Bld)1.4 %Normal0.9-4.0[facility] HospitalComment on above:Performed By: #### [id number], [id number], 8764907 #### [facility] (DEFAULT) [address] [place] [address] 50301Zebadinnksf (Bld) [#/Vol]1.4 p57Heartf5.3-2.9[facility] HospitalComment on above:Performed By: #### [id number], [id number], 2365795 #### [facility] (DEFAULT) [address] [place] [address] 56572Ipdeokxeaee/100 WBC (Bld)16 %Jgyrbg46-46Ogaakclq Hospital Comment on above:Performed By: #### [id number], 85967591, 5149398 #### [facility] (DEFAULT) [address] [place] [address] 27755Pllb Abs#1.1 e25Pymb4.0-0.8[facility] HospitalComment on above:Performed By: #### [id number], [id number], 9805811 #### [facility] (DEFAULT) [address] [place] [address] 36359Jmzg Abs#6.1 i42Xmygue5.5-9.2[facility] HospitalComment on above:Performed By: #### [id number], [id number], 0436981 #### [facility] (DEFAULT) [address] [place] [address] 88164Cinijhsajol/100 WBC (Bld)70 %Iidngp82-98Swvoiuzp Hospital Comment on above:Performed By: #### [id number], [id number], 1241345 #### [facility] (DEFAULT) [address] [place] [address] 34945SUT Standardon 51-81-3640cAXX Non AA>60[facility] Hospital Comment on above:Performed By: #### [id number], [id number], 8267618 #### [facility] (DEFAULT) [address] [place] [address] 89517wWEJ AA>60[facility] HospitalComment on above:Result Comment: Chronic Kidney disease could be indicated at eGFRs of less than 60 ml/min/1.73m2. Kidney Failure is indicated at less than 15 ml/min/1.73m2 Performed By: #### [id number], [id number], 7768555 #### [facility] (DEFAULT) [address] [place] [address] 44622Bbiqa gap [Moles/Vol]15.0 mmol/LNormal5.0-19.0[facility] CenterComment on above:Performed By: #### [id number], 83879289, 4306771 #### [facility] (DEFAULT) [address] [place] [address] 10565Ouxbvfp [Mass/Vol]9.2 mg/dLNormal8.9-10.3[facility] Hospital Comment on above:Performed By: #### [id number], [id number], 2242445 #### [facility] (DEFAULT) [address] [place] [address] 23472Moglcpbk [Moles/Vol]101 mmol/GFfvexl694-094Okwiqixf HospitalComment on above:Performed By: #### [id number], 32323763, 4231220 #### [facility] (DEFAULT) [address] [place] [address] 56370HW0 [Moles/Vol]26 mmol/KKezfry54-39Wzmkjbks Hospital Comment on above:Performed By: #### [id number], 07575475, 4130272 #### [facility] (DEFAULT) [address] [place] [address] 91502Hgyblknxvs [Mass/Vol]0.58 mg/dLLow0.60-1.30[facility] HospitalComment on above:Performed By: #### [id number], 66168022, 6460431 #### [facility] (DEFAULT) [address] [place] [address] 24319Slqcuyh [Mass/Vol]120.0 mg/gIYxso80.0-118.0[facility] HospitalComment on above:Performed By: #### [id number], 41259050, 3678049 #### [facility] (DEFAULT) [address] [place] [address] 85383Qarckptwbf [Osmolality]279 mOsm/LMagraccess hospital dayton HospitalComment on above:Performed By: #### [id number], 28292398, 2214014 #### [facility] (DEFAULT) [address] [place] [address] 31005Hvijozsaa [Moles/Vol]3.7 mmol/LNormal3.6-5.1[facility] HospitalComment on above:Performed By: #### [id number], 75954367, 8373592 #### [facility] (DEFAULT) [address] [place] [address] 39237Baeygn [Moles/Vol]138.0 mmol/IXkfjhy384.0-144.0[facility] HospitalComment on above:Performed By: #### [id number], 19893884, 5340108 #### [facility] (DEFAULT) [address] [place] [address] 32915Gotm nitrogen [Mass/Vol]19 mg/dLNormal8-26[facility] HospitalComment on above:Performed By: #### [id number], 57504751, 3156406 #### [facility] (DEFAULT) [address] [place] [address] 50494Thtf nitrogen/Creatinine [Mass ratio]33.0 mg/mgHigh 4.6-16.2[facility] HospitalComment on above:Performed By: #### [id number], 10054196, 0920493 #### [facility] (DEFAULT) [address] [place] [address] 13274RZW w/ Auto Diffon 80-98-8325Hvmjiqnuvvg distribution width (RBC) [Ratio]18.4 %High11.5-15.0[facility] HospitalComment on above: Performed By: #### [id number], 75362188, 8051453 #### [facility] (DEFAULT) [address] [place] [address] 78394Fczyggpbrf (Bld) [Volume fraction]29.7 %Low33.7-40.4 [facility] HospitalComment on above:Performed By: #### [id number], 12674045, 4224845 #### [facility] (DEFAULT) [address] [place] [address] 01334Lfogpdqzob (Bld) [Mass/Vol]9.0 g/dLLow11.3-15.9[facility] Health CenterComment on above:Performed By: #### [id number], 03214127, 3817053 #### [facility] (DEFAULT) [address] [place] [address] 65480Ccy Diff?AutoNormalLicking Memorial Hospital HospitalComment on above: Performed By: #### [id number], 77462046, 5394274 #### [facility] (DEFAULT) [address] [place] [address] 85919AYG (RBC) [Entitic mass]25 agImhrvh23-51Qwnmfrim Hospital Comment on above:Performed By: #### [id number], 05338857, 4304730 #### [facility] (DEFAULT) [address] [place] [address] 97455EHWT (RBC) [Mass/Vol]30 g/kUJvdfyw63-55Rvvyljrr Hospital Comment on above:Performed By: #### [id number], 08374252, 1763994 #### [facility] (DEFAULT) [address] [place] [address] 12034LDH (RBC) [Entitic vol]82 lAJkcrqr65-790Ryqpreit Hospital Comment on above:Performed By: #### [id number], 45390359, 8971381 #### [facility] (DEFAULT) [address] [place] [address] 04348Cjztbwyt mean volume (Bld) [Entitic vol]10.7 fLHigh 6.3-10.2[facility] HospitalComment on above:Performed By: #### [id number], 60457292, 1231884 #### [facility] (DEFAULT) [address] [place] [address] 98582Mubammywb (Bld) [#/Vol]230 c11Mkmtxc453-386Vcdlsuri HospitalComment on above:Performed By: #### [id number], 02101200, 3073548 #### [facility] (DEFAULT) [address] [place] [address] 14153HCG (Bld) [#/Vol]3.60 p79Xqm4.70-5.30[facility] Hospital Comment on above:Performed By: #### [id number], 63764203, 0667493 #### [facility] (DEFAULT) [address] [place] [address] 23760LSG (Bld) [#/Vol]8.8 z44Iypcnxqf HospitalComment on above: Performed By: #### [id number], 88008955, 5745176 #### [facility] (DEFAULT) [address] [place] [address] 74610Xbeorh Summaryon 04-90-6888Gfirgr SummaryCODING DATE: 05/27/2020 [facility] STATUS: Transfer to [place] PAYOR: Medicare Grouper: 470 MS-DRG MAJOR HIP AND KNEE JOINT REPLACEMENT OR REATTACHMENT OF LOWER EXTREMITY W/O LONGTERM Low Trim 0 High Trim 999 ADMIT [...] other venous thrombosis and embolism Z79.01 1 custodial (current) use of anticoagulants G47.33 Y Obstructive sleep apnea (adult) (pediatric) Z99.89 1 Dependence on other enabling machines and devices G40.909 Y Epilepsy, unspecified, not intractable, without status epilepticus Z79.899 1 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 E66.01 Y Morbid (severe) obesity due to excess calories PROCEDURES DOCTOR NAME DATE 1CVB302 Replacement of Left Knee Joint FERNANDO SILVA 05/23/2020 with Oxidized Zirconium on Polyethylene Synthetic Substitute, Cemented, Open Approach 76960B4 Transfusion of Nonautologous 05/25/2020 Red Blood Cells into Peripheral Vein, Percutaneous Approach NOTE: The code number assigned matches the documented diagnosis and / or procedure in the patient's chart. However, the narrative phrase printed from the coding software may appear abbreviated, or result in slightly different terminology. Revised Coded By: Jeane Mccormick Revised Date Saved: 05/27/2020 06:30 [facility] HospitalEducation Noteon 20-68-1745Kbwpkqoyo NoteEducation Materials POST OPERATIVE TOTAL KNEE/HIP DISCHARGE INTRUCTIONS [...] your doctor immediately or go to the emergencyroom. How can I prevent DVT? You should keep active. Moving the ankle and foot and bending the knee as tolerated when you are inbed and walking as tolerated. Take medication, especially [...] up every 2 hours while awake and walkaround with walker for 1 to 2 minutes. [...] for Percocet, Percocet is narcotic, narcotics are addictive.If you feel you have problems with addiction please feel free to contact Dr. Silva, your family physician, or proceed to the nearest hospital's emergency services department.[facility] HospitalInpatient Patient Summaryon 31-55-8047Gynnijijk Patient Summary[address] [address] Patient Discharge Instructions Name: SANDRA TAVAREZ : 1940 Patient Address: [facility] [address] Primary Care Provider: Name: Robert Vail After you are discharged if you find you have any questions, please, call [phone] ext [phone] to speak to a nurse. Discharge Diagnosis: Acute pain of left knee Prescription Information: If you have been given a prescription for narcotics, seek immediate medical attention if you have any difficulty breathing or any sudden status changes such as confusion andsleepiness. If you or anyone you know is experiencing suicidal thoughts, mental health, alcohol and/or drug addiction problems; contact the [facility] 20/06 Crisis Hotline -text 4HYWY to 937504. If you received any narcotics, sedation, or [...] business decisions or sign any legal documents [facility] would like to thank you for allowing us to assist you with your healthcare needs.The following includes patient education materials and information regarding your injury/illness. SANDRA TAVAREZ has been given the following list of follow-up instructions, prescriptions, and patient education materials: Follow-up Instructions With: Address: When: Robert Vail [address] [place] [address] Business (1) With: Address: When: Tom Centeno [address] [facility], [address] [place], [place] [address] [facility] (1) 06/06/2020 1:00 PM Medications During the course of your visit, your medication list was updated with the most current information. The details of those changes are reflected below: New Medications Printed Prescriptions acetaminophen-oxycodone (Percocet 5/325 oral tablet) 1 tab(s) Oral every 6 hours as needed for painfor 7 Days. Refills: 0. Medications That Were [...] Oral every 6 hours as needed for painfor 7 Days. Refills: 0. atorvastatin (atorvastatin 20 [...] your doctor immediately or go to the emergencyroom. How can I prevent DVT? You should keep active. Moving the ankle and foot and bending the knee as tolerated when you are inbed and walking as tolerated. Take medication, especially [...] up every 2 hours while awake and walkaround with walker for 1 to 2 minutes. [...] for Percocet, Percocet is narcotic, narcotics are addictive.If you feel you have problems with addiction [...] Centers for Disease Control and Prevention July 2014[facility] POCT Glucose Levelon 62-57-8781Ocwkcui [Mass/Vol]125 mg/pEWxwr26-142Rxqibzle HospitalComment on above:Performed By: #### [id number] ####[facility] (DEFAULT)[address] [place] [address] 69014DFem 49-16-4028KLI Coag (PPP) [Relative time]2.29 {INR}High0.91-1.11[facility] Health CenterComment on above: Performed By: #### [id number], [id number], 5112508 #### [facility] (DEFAULT) [address] [place] [address] 91422CO Coag (PPP) [Time]22.2 second(s)High9.7-11.8[facility] Health CenterComment on above:Performed By: #### [id number], 13035881, 3891060 #### [facility] (DEFAULT) [address] [place] [address] 64436Scdnxpsr Note - Nurseon 13-78-4022Ieytaxnd Note - Nurse Dressing change per Dr Moon. RAFIQ hose applied to both lower legs. Daughter here for transfer to the [facility]. Discharged to prison per private vehicle with daughter. PT and OT assisted patient into car. [Electronically Signed on: 05/27/2020 18:20 EDT] Mayra Tafoya RN [Verified on: 05/27/2020 18:20 EDT] Lencho Tafoya RNPaulding County Hospital Note-Physicianon 05-27-2020 Progress Note-PhysicianDATE OF ORTHOPEDIC PROGRESS NOTE: 05/27/2020 TIME: 2:00 [...] The patient will be going to [facility] today. CONDITION ON DISCHARGE: Stable. Tino Moon DO JOB #: [id number] [Electronically Signed on: 05/28/2020 10:10 EDT] KASHIFTINO [Verified on: 05/28/2020 10:10 EDT] MABLETINO Strauss [Transcribed on: 05/27/2020 14:44 EDT] [facility] Note-PhysicianDATE OF POSTOPERATIVE ORTHOPEDIC PROGRESS NOTE: 05/26/2020 TIME: [...] PROGNOSIS: Fair. Tino Moon DO JOB #: [id number] [Electronically Signed on: 05/27/2020 12:30 EDT] JORGEFARZANATINO Strauss DO [Verified on: 05/27/2020 12:30 EDT] JORGEFARZANATINO Strauss DO [Transcribed on: 05/27/2020 10:45 EDT] [facility]UNThe [facility].Auto Diff 1on 75-62-6613Tnme Rolette %16 %High1-12 [facility] CenterComment on above:Performed By: #### [id number], [id number], 0811543 #### [facility] (DEFAULT) [address] [place] [address] 32814Xihs Abs#0.0 c30Gnvqoy4.0-0.2[facility] HospitalComment on above:Performed By: #### [id number], 46471430, 3756799 #### [facility] (DEFAULT) [address] [place] [address] 62071Mjxnffyxk/100 WBC (Bld)0.2 %Normal0.2-2.0[facility] Comment on above:Performed By: #### [id number], 03598772, 3618563 #### [facility] (DEFAULT) [address] [place] [address] 62453Uwg Abs#0.0 d34Pyrqlg4.0-0.4[facility] HospitalComment on above:Performed By: #### [id number], 86315039, 1289732 #### [facility] (DEFAULT) [address] [place] [address] 61415Afixbnlbifp/100 WBC (Bld)0.5 %Low0.9-4.0[facility] Comment on above:Performed By: #### [id number], 93093295, 8268531 #### [facility] (DEFAULT) [address] [place] [address] 92779Uzwzlqbznyr (Bld) [#/Vol]1.2 d93Zej7.3-2.9[facility] HospitalComment on above:Performed By: #### [id number], 65840518, 1579073 #### [facility] (DEFAULT) [address] [place] [address] 36591Mtlfxqsmgie/100 WBC (Bld)15 %Fwairu87-27[facility] Comment on above:Performed By: #### [id number], 17176071, 5767173 #### [facility] (DEFAULT) [address] [place] [address] 51296Hwow Abs#1.3 q73Wndw5.0-0.8[facility] HospitalComment on above:Performed By: #### [id number], 83498314, 8374326 #### [facility] (DEFAULT) [address] [place] [address] 82133Apev Abs#5.6 w80Hoivlc7.5-9.2[facility] HospitalComment on above:Performed By: #### [id number], 04055342, 2108178 #### [facility] (DEFAULT) [address] [place] [address] 17643Zuyinhihaka/100 WBC (Bld)68 %Rwjvpb66-71Wqgahyxu Hospital Comment on above:Performed By: #### [id number], 90189606, 2047973 #### [facility] (DEFAULT) [address] [place] [address] 22040HQD w/ Auto Diffon 28-71-0560Ltuqrqcqydz distribution width (RBC) [Ratio]17.9 %High11.5-15.0[facility] HospitalComment on above: Performed By: #### [id number], [id number], 0882810 #### [facility] (DEFAULT) [address] [place] [address] 64315Oynujttzhe (Bld) [Volume fraction]28.5 %Low33.7-40.4 [facility] HospitalComment on above:Performed By: #### [id number], 67940603, 0855750 #### [facility] (DEFAULT) [address] [place] [address] 74060Cqtorupvqu (Bld) [Mass/Vol]8.5 g/dLLow11.3-15.9[facility] CenterComment on above:Performed By: #### [id number], 31481421, 0014375 #### [facility] [facility] [address] [place] [address] 55293Drc Diff?AutoNormalLicking Memorial Hospital HospitalComment on above: Performed By: #### [id number], [id number], [id number] #### [facility] ([facility]) [address] [place] [address] 15935GXJ (RBC) [Entitic mass]24 joFinkaz75-93Snkbwmej Hospital Comment on above:Performed By: #### [id number], [id number], [id number] #### [facility] (DEFAULT) [address] [place] [address] 37605WMFT (RBC) [Mass/Vol]30 g/dWUcbbsv99-60Arjptuqo Hospital Comment on above:Performed By: #### [id number], [id number], [id number] #### [facility] (DEFAULT) [address] [place] [address] 58515WYZ (RBC) [Entitic vol]81 fKXqftzm01-914Xoruxzuy Hospital Comment on above:Performed By: #### [id number], [id number], [id number] #### [facility] (DEFAULT) [address] [place] [address] 81962Ukndvngj mean volume (Bld) [Entitic vol]10.5 fLHigh 6.3-10.2[facility] HospitalComment on above:Performed By: #### [id number], 60425548, 7201056 #### [facility] (DEFAULT) [address] [place] [address] 21980Brmwqhfmy (Bld) [#/Vol]178 z22Etvobs477-587Bzpknpsq HospitalComment on above:Performed By: #### [id number], 75372218, 4181043 #### [facility] (DEFAULT) [address] [place] [address] 65581WBS (Bld) [#/Vol]3.50 e25Vfc7.70-5.30[facility] Comment on above:Performed By: #### [id number], [id number], 9888500 #### [facility] (DEFAULT) [address] [place] [address] 03694SCS (Bld) [#/Vol]8.2 b27Igdwshkk HospitalComment on above: Performed By: #### [id number], [id number], [id number] #### [facility] (DEFAULT) [address] [place] [address] 30829Chjhh Greenon 49-52-6997Niad [facility] Comment on above:Performed By: #### [id number], [id number], 5441163 #### [facility] (DEFAULT[facility] [address] [place] [address] 89176Lnztnlu and Physicalon 21-10-7303Dfrsgej and Physical [id number]#1.00OTGT[facility] Nutrition Noteon 62-02-9286Vyhhcxhah NotePer intake records, Pt avg 50% of past 6 meals with inconsistent supplement intake avg 1X/d. Last BM on 05/23, will offer prunejuice. Post op anemia noted; per ortho 1unit PRBC given. CXR obtained for fever, dyspnea which was wnl. Possible discharge later today. Will continue to monitor.NormalC[facility] Clinic [facility] for [facility] 12-39-3734SXU Coag (PPP) [Relative time]2.54 {INR}High0.91-1.11[facility] CenterComment on above: Performed By: #### [id number], [id number], [id number] #### [facility] (DEFAULT) [address] [place] [address] 07349FV Coag (PPP) [Time]24.4 second(s)High9.7-11.8[facility] CenterComment on above:Performed By: #### [id number], [id number], [id number] #### [facility] (DEFAULT) [address] [place] [address] 02468Reuucotb Note-Physicianon 90-70-0326Firksabj Note-PhysicianDATE OF ORTHOPEDIC POSTOPERATIVE PROGRESS NOTE: 05/25/2020 TIME: [...] Coumadin tomorrow. PROGNOSIS: Overall is good. Tino Moon, JOB #: [id number] [Electronically Signed on: 05/26/2020 13:12 EDT] TINO MOON DO [Verified on: 05/26/2020 13:12 EDT] TINO MOON DO [Transcribed on: 05/26/2020 10:28 EDT] GDOhio Valley HospitalXR Chest 1 View Frontalon 51-94-1965VW Chest 1 View FrontalEXAM: XR Chest 1 View Frontal HISTORY: Fever. [...] Jesus Green MD 05/26/20 3:37 pm Technologist: [facility].Auto Diff 1on 33-48-8141Vkzi Rolette %17 %High1-[address] [place], [place] [address]Comment on above:Performed By: #### [id number], [id number], [id number] #### [facility] (DEFAULT) [address] [place] [address] 51812Hzlk Abs#0.0 q61Zttbkk4.0-0.2MRiverside Methodist HospitalComment on above:Performed By: #### [id number], [id number], [id number] #### [facility] (DEFAULT) [address] [place] [address] 09462Tchwdetix/100 WBC (Bld)0.3 %Normal0.2-2.0[facility] Hospital Comment on above:Performed By: #### [id number], [id number], 9775774 #### [facility] (DEFAULT) [address] [place] [address] 32926Cpa Abs#0.0 u86Zeuxdd9.0-0.4[facility] HospitalComment on above:Performed By: #### [id number], [id number], 7210738 #### [facility] (DEFAULT) [address] [place] [address] 17332Tokuxqcfozh/100 WBC (Bld)0.1 %Low0.9-4.0[facility] Hospital Comment on above:Performed By: #### [id number], 81932856, 6300542 #### [facility] (DEFAULT) [address] [place] [address] 71049Xockpbtryxh (Bld) [#/Vol]0.8 b20Twy2.3-2.9[facility] HospitalComment on above:Performed By: #### [id number], 71973787, 4803627 #### [facility] (DEFAULT) [address] [place] [address] 19039Jgchriwuheo/100 WBC (Bld)11 %Fhj36-43Jjvrsciu Hospital Comment on above:Performed By: #### [id number], 80910709, 0041022 #### [facility] (DEFAULT) [address] [place] [address] 05619Hyqr Abs#1.1 v70Nqzq1.0-0.8[facility] HospitalComment on above:Performed By: #### [id number], 59025420, 4567607 #### [facility] (DEFAULT) [address] [place] [address] 15864Coce Abs#4.8 y17Yolcpu2.5-9.2[facility] HospitalComment on above:Performed By: #### [id number], 84251412, 8113067 #### [facility] (DEFAULT) [address] [place] [address] 67574Gpurfhjtjdq/100 WBC (Bld)72 %Rgldhu43-33Ywccsyxl Hospital Comment on above:Performed By: #### [id number], 01735201, 5876925 #### [facility] (DEFAULT) [address] [place] [address] 55487KCU w/ Auto Diffon 03-75-4897Tieikmxkvxt distribution width (RBC) [Ratio]17.6 %High11.5-15.0[facility] Health CenterComment on above: Performed By: #### [id number], 30125915, 9959045 #### [facility] (DEFAULT) [address] [place] [address] 82605Mklnpqmvgj (Bld) [Volume fraction]27.4 %Low33.7-40.4 [facility] CenterComment on above:Performed By: #### [id number], 09437762, 9750610 #### [facility] (DEFAULT) [address] [place] [address] 78555Yujvwyhxmc (Bld) [Mass/Vol]8.1 g/dLLow11.3-15.9[facility] CenterComment on above:Performed By: #### [id number], 66418666, 2699825 #### [facility] (DEFAULT) [address] [place] [address] 17160Rqs Diff?AutoNormalLicking Memorial Hospital HospitalComment on above: Performed By: #### [id number], 52268536, 1925558 #### [facility] (DEFAULT) [address] [place] [address] 77792SNR (RBC) [Entitic mass]24 tkEqplnr47-01Hwvquucd Hospital Comment on above:Performed By: #### [id number], 23976357, 7278539 #### [facility] (DEFAULT) [address] [place] [address] 89706ZTSI (RBC) [Mass/Vol]30 g/lDHanxlh84-87Sfpwbxbh Hospital Comment on above:Performed By: #### [id number], 39970686, 8952068 #### [facility] (DEFAULT) [address] [place] [address] 06506AGV (RBC) [Entitic vol]80 hCMbb04-928Zxpfqrcl Hospital Comment on above:Performed By: #### [id number], 28183418, 4608109 #### [facility] (DEFAULT) [address] [place] [address] 97290Vxewikwv mean volume (Bld) [Entitic vol]10.8 fLHigh 6.3-10.2[facility] HospitalComment on above:Performed By: #### [id number], 80080621, 3624947 #### [facility] (DEFAULT) [address] [place] [address] 95071Hcwlirmco (Bld) [#/Vol]186 q32Upuamq160-412Amrfkclv HospitalComment on above:Performed By: #### [id number], 23021160, 7315545 #### [facility] (DEFAULT) [address] [place] [address] 77453JKX (Bld) [#/Vol]3.42 v50Elp8.70-5.30[facility] Comment on above:Performed By: #### [id number], 59832793, 4455930 #### [facility] (DEFAULT) [address] [place] [address] 34698UMA (Bld) [#/Vol]6.8 z69Tfvyyq5.5-10.5[facility] Comment on above:Performed By: #### [id number], 91138327, 5505198 #### [facility] (DEFAULT) [address] [place] [address] 29589Mvvgydptdex Panel Standardon 39-46-2943Kuegi gap [Moles/Vol]12.0 mmol/LNormal5.0-19.0[facility] HospitalComment on above:Performed By: #### [id number], 58627250, 5639804 #### [facility] (DEFAULT) [address] [place] [address] 36082Oycknbfo [Moles/Vol]102 mmol/YNeirol302-651Acyjxkvm HospitalComment on above:Performed By: #### [id number], 34817709, 6786645 #### [facility] (DEFAULT) [address] [place] [address] 44908RU9 [Moles/Vol]28 mmol/UCcaidb63-58Gdsjpkwa Hospital Comment on above:Performed By: #### [id number], 37108194, 9438273 #### [facility] (DEFAULT) [address] [place] [address] 80811Wxtvjdchc [Moles/Vol]4.0 mmol/LNormal3.6-5.1[facility] HospitalComment on above:Performed By: #### [id number], 35024139, 5235010 #### [facility] (DEFAULT) [address] [place] [address] 62592Sqaaxa [Moles/Vol]138.0 mmol/NNuhces922.0-144.0[facility] HospitalComment on above:Performed By: #### [id number], 51919250, 1512787 #### [facility] (DEFAULT) [address] [place] [address] 01399PZxe 30-76-5085GGU Coag (PPP) [Relative time]1.89 {INR} High0.91-1.11[facility] HospitalComment on above:Performed By: #### [id number], 62649672, 1673869 #### [facility] (DEFAULT) [address] [place] [address] 58451AJ Coag (PPP) [Time]18.6 second(s)High9.7-11.8[facility] HospitalComment on above:Performed By: #### [id number], 15672117, 4427645 #### [facility] (DEFAULT) [address] [place] [address] 20493Fqhqesod Note - Nurseon 47-57-6881Scwtnclj Note - Nursept requiring three assist to get back to bed. appears hesitant and scared with movement. states theoxy has been helping her pain today butlacking confidence with her mobility. educated importance ofkicking leg out as instructed by PT. positioned and will give pain meds to keep comfortable [Electronically Signed on: 05/25/2020 18:51 EDT] Jessica Abernathy RN [Verified on: 05/25/2020 18:51 EDT] Jessica Abernathy RNBellevue Hospital Note - NurseUnable to get mask to fit correctly so placed on 2 L overnight. [Electronically Signed on: 05/25/2020 01:45 EDT] Lyndsay Lou RN [Verified on: 05/25/2020 01:45 EDT] Lyndsay Lou [facility] Note - NursePt asleep with cpap mask off, woke her to put it back on. [Electronically Signed on: 05/25/2020 01:33 EDT] Lyndsay Lou RN [Verified on: 05/25/2020 01:33 EDT] Lyndsay Lou [facility] Note - NursePt up to bedside commode with 2 assist and walker, transfers very poorly and reports alot of knee pain. [Electronically Signed on: 05/25/2020 00:22 EDT] Lyndsay Lou RN [Verified on: 05/25/2020 00:22 EDT] Lyndsay Lou RNNoParkview HealthRBC.on 06-69-9995QFA (Bld) [#/Vol]# of Units: 1 RBC Indication: Post-Op Bleed Additional Units?: No Date Needed: 05/25/2002 Red Cell Status: [facility] HospitalComment on above:Performed By: #### [id number], 61854853, 4881658 #### [facility] (DEFAULT) [address] [place] [address] 13927.Auto Diff 1on 98-25-6045Usvz Rolette %9 %Normal1-12[facility] HospitalComment on above:Performed By: #### [id number], 41062583, 0895676 #### [facility] (DEFAULT) [address] [place] [address] 23881Leix Abs#0.0 w29Vfdyjh2.0-0.2[facility] HospitalComment on above:Performed By: #### [id number], 80757942, 2509702 #### [facility] (DEFAULT) [address] [place] [address] 10387Wcnldyqbc/100 WBC (Bld)0.2 %Normal0.2-2.0[facility] Hospital Comment on above:Performed By: #### [id number], 59339592, 7351758 #### [facility] (DEFAULT) [address] [place] [address] 73466Pzz Abs#0.0 u49Pcadce9.0-0.4[facility] HospitalComment on above:Performed By: #### [id number], 96868524, 9325522 #### [facility] (DEFAULT) [address] [place] [address] 99240Yqwlfshzaav/100 WBC (Bld)0.0 %Low0.9-4.0[facility] Hospital Comment on above:Performed By: #### [id number], 84666128, 4356497 #### [facility] (DEFAULT) [address] [place] [address] 14940Brshuwuovst (Bld) [#/Vol]0.7 m12Fxm8.3-2.9[facility] HospitalComment on above:Performed By: #### [id number], 88639965, 0336464 #### [facility] (DEFAULT) [address] [place] [address] 76305Ugjgoocfmsf/100 WBC (Bld)6 %Nix83-13SkjnilduSouthwest General Health Center Comment on above:Performed By: #### [id number], 07161853, 3288566 #### [facility] (DEFAULT) [address] [place] [address] 24731Qjbl Abs#0.9 d00Mksd2.0-0.8[facility] HospitalComment on above:Performed By: #### [id number], 94587223, 9225582 #### [facility] (DEFAULT) [address] [place] [address] 83121Tiio Abs#8.7 c78Ayzqdm3.5-9.2[facility] HospitalComment on above:Performed By: #### [id number], 25137556, 6121231 #### [facility] (DEFAULT) [address] [place] [address] 38580Eayirsqqlph/100 WBC (Bld)84 %Uwmgyr07-14[facility] Comment on above:Performed By: #### [id number], 05194709, 3740852 #### [facility] (DEFAULT) [address] [place] [address] 12032FON Standardon 16-77-5769gKDO Non AA>60[facility] Comment on above:Performed By: #### [id number], 39293907, 8234364 #### [facility] (DEFAULT) [address] [place] [address] 19721sNKD AA>60[facility] HospitalComment on above:Result Comment: Chronic Kidney disease could be indicated at eGFRs of less than 60 ml/min/1.73m2. Kidney Failure is indicated at less than 15 ml/min/1.73m2 Performed By: #### [id number], 50758002, 8165284 #### [facility] (DEFAULT) [address] [place] [address] 69796Pzwsd gap [Moles/Vol]13.0 mmol/LNormal5.0-19.0[facility] HospitalComment on above:Performed By: #### [id number], 35749903, 3750118 #### [facility] (DEFAULT) [address] [place] [address] 91535Pieyfld [Mass/Vol]8.5 mg/dLLow8.9-10.3[facility] Hospital Comment on above:Performed By: #### [id number], 31374797, 0348702 #### [facility] (DEFAULT) [address] [place] [address] 56507Hkiviwca [Moles/Vol]102 mmol/QJcxkjn439-528Zxchlsjg HospitalComment on above:Performed By: #### [id number], 48543041, 2060244 #### [facility] (DEFAULT) [address] [place] [address] 70702TN9 [Moles/Vol]27 mmol/NDovblk27-33Dmyzmxcx Hospital Comment on above:Performed By: #### [id number], 51152167, 5771458 #### [facility] (DEFAULT) [address] [place] [address] 62107Sxzterfldp [Mass/Vol]0.57 mg/dLLow0.60-1.30[facility] HospitalComment on above:Performed By: #### [id number], 92714100, 9966046 #### [facility] (DEFAULT) [address] [place] [address] 82836Kzxhxdy [Mass/Vol]134.0 mg/nXHoum82.0-118.0[facility] HospitalComment on above:Performed By: #### [id number], 84546976, 4600275 #### [facility] (DEFAULT) [address] [place] [address] 89495Ilppccuyry [Osmolality]280 mOsm/LMcleveland clinic mercy hospital HospitalComment on above:Performed By: #### [id number], 89494500, 8210058 #### [facility] (DEFAULT) [address] [place] [address] 57832Qsxdbqhep [Moles/Vol]4.4 mmol/LNormal3.6-5.1[facility] HospitalComment on above:Performed By: #### [id number], 50415371, 2300178 #### [facility] (DEFAULT) [address] [place] [address] 28055Pydgti [Moles/Vol]138.0 mmol/CMvkmif082.0-144.0[facility] HospitalComment on above:Performed By: #### [id number], 78508122, 0131387 #### [facility] (DEFAULT) [address] [place] [address] 12625Pesr nitrogen [Mass/Vol]19 mg/dLNormal8-26[facility] HospitalComment on above:Performed By: #### [id number], 81867810, 7194287 #### [facility] (DEFAULT) [address] [place] [address] 17253Gqkt nitrogen/Creatinine [Mass ratio]33.0 mg/mgHigh 4.6-16.2[facility] HospitalComment on above:Performed By: #### [id number], 43635429, 4643709 #### [facility] (DEFAULT) [address] [place] [address] 03526VGS w/ Auto Diffon 03-79-6259Nacxejdgkau distribution width (RBC) [Ratio]17.4 %High11.5-15.0[facility] HospitalComment on above: Performed By: #### [id number], 93182651, [id number] #### [facility] (DEFAULT) [address] [place] [address] 48827Savdlzcpsy (Bld) [Volume fraction]29.3 %Low33.7-40.4 [facility] HospitalComment on above:Performed By: #### [id number], 44170643, [id number] #### [facility] (DEFAULT) [address] [place] [address] 84675Iqktjmrsnh (Bld) [Mass/Vol]8.7 g/dLLow11.3-15.9[facility] CenterComment on above:Performed By: #### [id number], 21782178, [id number] #### [facility] (DEFAULT) [address] [place] [address] 55843Nok Diff?AutoNormalLicking Memorial Hospital HospitalComment on above: Performed By: #### [id number], 82254177, [id number] #### [facility] (DEFAULT) [address] [place] [address] 01145IFK (RBC) [Entitic mass]24 ieYwfjuj11-23Qqybwzge Hospital Comment on above:Performed By: #### [id number], 78524801, [id number] #### [facility] (DEFAULT) [address] [place] [address] 13864AWQO (RBC) [Mass/Vol]30 g/dSUkzesi88-78Zqmdcyhd Hospital Comment on above:Performed By: #### [id number], 70810712, [id number] #### [facility] (DEFAULT) [address] [place] [address] 78698VSN (RBC) [Entitic vol]81 iKBixhjx25-635Pkfwksbo Hospital Comment on above:Performed By: #### [id number], 65052105, 6055451577 #### [facility] (DEFAULT) [address] [place] [address] 44852Mvunrhvx mean volume (Bld) [Entitic vol]10.6 fLHigh 6.3-10.2MRiverside Methodist HospitalComment on above:Performed By: #### [id number], 31999063, [id number] #### [facility] (DEFAULT) [address] [place] [address] 14030Smygcntmy (Bld) [#/Vol]211 g70Mhlpbz422-980Rrnpzxtm HospitalComment on above:Performed By: #### [id number], 37323019, [id number] #### [facility] (DEFAULT) [address] [place] [address] 41942YSV (Bld) [#/Vol]3.63 z87Doi3.70-5.30[facility] Comment on above:Performed By: #### [id number], 91056118, [id number] #### [facility] (DEFAULT) [address] [place] [address] 04896JHM (Bld) [#/Vol]10.4 u94Pomoom1.5-10.5[facility] Comment on above:Performed By: #### 3552909, 71782274, [id number] #### [facility] (DEFAULT) [address] [place] [address] 87217Scthoxjhk Noteon 45-64-7036Purtmdwdc NoteDiet ordered as 3000kcal, DM w/ Boost Glucose Control BID. Diet adjusted to 2gr Na to reflect Pts home diet and supplement changed to Ensure Compact BID which is available in house. Pt does not have DM. Will continue to monitor.NormalSouthwest General Health CenterPT on 44-73-5773JNI Coag (PPP) [Relative time]1.21 {INR}High0.91-1.11[facility] HospitalComment on above:Performed By: #### [id number], 20892319, 4472938 #### [facility] (DEFAULT) [address] [place] [address] 37231IK Coag (PPP) [Time]12.3 second(s)High9.7-11.8[facility] General Health CenterComment on above:Performed By: #### [id number], 31186583, 2102660 #### [facility] (DEFAULT) [address] [place] [address] 65035Cwzavyld Noteon 74-63-6521Gqescnyl NoteI have personally reviewed the patient's current home [...] Molina [Verified on: 05/24/2020 16:28 EDT] Kellee MolinaBellevue Hospital Note - Nurseon 05-24-2020 Progress Note - Nursepts pain becming worse. giving 10mg oxy po every four hours, polar care in place and dr epperson notified of pain not controlled. will administer po gabepentin per order. will continue to monitor [Electronically Signed on: 05/24/2020 17:20 EDT] Jessica Abernathy RN [Verified on: 05/24/2020 17:20 EDT] Jessica Abernathy [facility] Note - Nursept requires assistance getting in and out of bed. still a little stiff from surgery but does ok once up w the walker. pain so far has been controlled w 10 mg po oxy. [Electronically Signed on: 05/24/2020 10:54 EDT] Jessica Abernathy RN [Verified on: 05/24/2020 10:54 EDT] Jessica Abernathy RNWandaParkview HealthABORhon 43-36-5346WET and group Nom (Bld)Hx Check: Not Found Anti-A: 4+ Anti-B: 0 Anti-D: 4+ DCon: NT A1: mf+ B: 4+ ABORh Interp: A [facility] HospitalComment on above:Performed By: #### [id number], [id number], [id number] #### [facility] (DEFAULT) [address] [place] [address] 38015NONOy Retypeon 08-70-8822IIR and Rh group Nom (Bld)Ordered by Discern. Anti-A: 4+ Anti-B: 0 Anti-D: 4+ DCon: NT A1: mf+ B: 4+ ABORh Retype: A POSLicking Memorial Hospital HospitalComment on above:Performed By: #### [id number], 79084405, [id number] #### [facility] (DEFAULT) [address] [place] [address] 61214GJEE Gelon 13-76-9081VCKY GelNegativeNormOhioHealth Dublin Methodist Hospital HospitalComment on above:Performed By: #### [id number], 87603925, [id number] #### [facility] (DEFAULT) [address] [place] [address] 88058Vwthzmavrf Noteon 76-35-0188Huhzqfiggf NotePatient: SANDRA TAVAREZ Age: 79 years Sex: FEMALE [...] history): All Problems Anemia / SNOMED CT 258528895 / Confirmed At risk of pressure sore / SNOMED CT 401773495 / Confirmed Cardiomyopathy / SNOMED CT 344547393 / Confirmed DVT (deep venous thrombosis) / SNOMED CT 600251117 / Confirmed GERD (gastroesophageal reflux disease) / SNOMED CT 442605109 / Confirmed Hyperlipidemia / SNOMED CT 75239511 / Confirmed Hypertension / SNOMED CT 9862804377 / Confirmed Lumbar spondylosis / SNOMED CT 283423670 / Confirmed Mass / SNOMED CT 898469359 / Confirmed KERMIT (obstructive sleep apnea) / SNOMED CT 901715224 / Confirmed Pulmonary hypertension / SNOMED CT 179578701 / Confirmed Seizure / SNOMED CT 735164156 / Confirmed Venous insufficiency / SNOMED CT 082137106 / Confirmed Resolved: Adrenal adenoma / SNOMED CT 401920367 Resolved: Pulmonary emboli / SNOMED CT 14853392 Histories Family History: Diabetes mellitus Sister Heart attack Father Leukemia Father Stroke.... Mother Procedure history: Cholecystectomy (40720015). Colectomy (04995888). Colonoscopy (491487287). [place] filter (327360067). Femur fracture, right (87216608). Shoulder (09818151). Comments: 02/08/2020 9:57 Stacy Reynolds RN torn rotator cuff 02/08/2020 7:28 Stacy Reynolds RN arthroplasty Knee arthroplasty (492552979). Craniotomy (37645473). Laminectomy (5505745099). Comments: 02/08/2020 7:30 Stacy Reynolds RN foraminotomy, facetectomy with decompression and fusion Cataract (705290714). Social History Electronic Cigarette/Vaping Assessment Electronic Cigarette [...] Oriented. Review / Management Laboratory Results Plan [place] [employer]#(ASA) physical status classification: Class [...] [Verified on: 05/23/2020 13:34 EDT] Maico Sandhu [facility] HospitalBlood Bank IDon [id number] Bank ID BBID: [id number] General Health CenterComment on above:Performed By: #### [id number], [id number], [id number] #### [facility] (DEFAULT) [address] [place] [address] [id number] [place] [id number] [facility] Comment on above:Performed By: #### [id number], [id number], [id number] #### [facility] [facility] [address] [place] [address] 40730Cfxj [facility] Medical CenterComment on above: Performed By: #### [id number], [id number], [id number] #### [facility] (DEFAULT) [address] [place] [address] 17533Frovj 78-24-4652Hubqcquuez (Bld) [Mass/Vol]10.1 g/dLLow 11.3-15.9[facility] CenterComment on above:Performed By: #### [id number], [id number], [id number] #### [facility] (DEFAULT) [address] [place] [address] 25944UVYT Intraoperative Recordon [id number] Intraoperative RecordMAGR Intra-Op Record Summary Primary Physician: FERNANDO SILVA Finalized Date/Time: 05/23/20 16:19:21 Pt. Name: SANDRA TAVAREZ /Sex: 1940 FEMALE Med Rec #: [id number] Physician: FERNANDO SILVA Financial #: [id number] Pt. Type: I Room/Bed: Critical access hospital Admit/Disch: 05/23/20 09:44:18 - Institution: Case Times [...] Role Performed Surgeon - Primary Anesthesiologist of Radiator Tester Record Time In 05/23/20 13:19:00 05/23/20 13:19:00 [...] RN Regina CST Role Performed Scrub Personnel Slip Mixer Slip Mixer Time In 05/23/20 13:19:00 05/23/20 13:19:00 05/23/20 [...] Performs skin preparation Im.270.1 Implements protective measures toprevent skin and tissue injury due to chemical [...] regulation A.40 Verifies presence of prosthetics or correctivedevices Im.280 Implements thermoregulation measures Im.60 Uses supplies [...] bone screw 6.5mm waleska headed screw 48mm AWLESKA PATELLA REAMER BLADE Implant Information Implant/Explant Date/Time Implanted/Explanted By: Size 6.5mm 48mm 29MM ISADORA [employer]ry Cook waleska WALESKA WALESKA Catalog # Lot Number [id number] Expiration Date 10/27/29 11/27/29 10/27/29 Serial Number REF [id number] 35 REF 5983 40 48 REF 5979 95 29 Device Identifier Human Readable CHASE Machine Readable CHASE MR Class Implant Usage Data Site Knee L Knee L Knee L Quantity 1 1 1 Reason for Explant Reason Not Retained Explant Disposition Placing Judge Sterility External Indicator Result Internal Indicator Results [...] C D 15MM ISADORA X 30MM L Pantry Cook WALESKA WALESKA WALESKA Catalog # Lot Number [id number] Expiration Date 02/25/30 01/25/25 08/27/29 Serial Number REF [id number] RE 59 62 30 10 REF 5099 12 15 Device Identifier Human Readable CHASE Machine Readable CHASE MR Class Implant Usage Data Site Knee L Knee L Knee L Quantity 1 1 1 Reason for Explant Reason Not Retained Explant Disposition Placing Judge Sterility External Indicator Result Internal Indicator Results [...] By: Size 29 MM ISADORA 4 D Pantry Cook WALESKA WALESKA WALESKA Catalog # Lot Number [id number] Expiration Date 09/27/27 09/25/29 07/28/26 Serial Number REF 42 [id number] 000 29 REF [id number] 37 02 REF 00 [id number] 014 51 Device Identifier Human Readable CHASE Machine Readable CHASE MR Class Implant Usage Data Site Knee L Knee L Knee L Quantity 1 1 1 Reason for Explant Reason Not Retained Explant Disposition Placing Judge Sterility External Indicator Result Internal Indicator Results [...] Date/Time Implanted/Explanted FERNANDO SILVA GEORGE By: Size Pantry Cook WALESKA/BIOMET WALESKA/BIOMET Catalog # Lot Number [id number] Expiration Date 05/27/24 05/27/24 Serial Number REF [id number] REF [id number] Device Identifier Human Readable CHASE Machine Readable CHASE MR Class Implant Usage Data Site Knee L Knee L Quantity 1 1 Reason for Explant Reason Not Retained Explant Disposition Placing Judge Sterility External Indicator Result Internal Indicator Results [...] Signatures Signed By: Shanique Brown RN 05/23/20 16:19[facility] Intraoperative Record MAGR Intra-Op Record Summary Primary Physician: Finalized Date/Time: 05/23/20 13:14:24 Pt. Name: SANDRA TAVAREZ/Sex: 1940 FEMALE Med Rec #: [id number] Physician: FERNANDO SILVA Financial #: [id number] Pt. Type: I Room/Bed: Critical access hospital Admit/Disch: 05/23/20 09:44:18 - Institution: Case Times [...] Warga, Laura RN Role Performed Anesthesiologist of Radiator Tester Radiator Tester Record Time In 05/23/20 12:58:00 05/23/20 12:58:00 [...] Performs skin preparation Im.270.1 Implements protective measures toprevent skin and tissue injury due to chemical [...] Signatures Signed By: Stacy Pena RN 05/23/20 13:14[facility] PACU Recordon [id number] PACU RecordMAGR PACU Record Summary Primary Physician: FERNANDO SILVA Finalized Date/Time: 05/23/20 16:49:56 Pt. Name: SANDRA TAVAREZ /Sex: 1940 FEMALE Med Rec #: [id number] Physician: FERNANDO SILVA Financial #: [id number] Pt. Type: I Room/Bed: Critical access hospital Admit/Disch: 05/23/20 09:44:18 - Institution: PACU Case Times MAGR Entry 1 In PACU I 05/23/20 16:18:00 Discharge from PACU 05/23/20 16:51:00 I Last Modified By: Shanique Brown RN 05/23/20 16:49:54 Finalized By: Shanique Brown RN Document Signatures Signed By: Shanique Brown RN 05/23/20 16:49[facility] HospitalNut[facility] Noteon 01-78-4760Aistdyajo NotePt admitted for scheduled Lt total knee surgery; [...] risk r/t age greater than 65y and surgery.[facility] 88-92-1178OTR Coag (PPP) [Relative time]1.22 {INR}High0.91-1.11 [facility] CenterComment on above:Performed By: #### [id number], [id number], [id number] #### [facility] (DEFAULT) [address] [place] [address] 51716CB Coag (PPP) [Time]12.4 second(s)High9.7-11.8[facility] General Health CenterComment on above:Result Comment: Called Shira in Pre - Surg at 1059 Performed By: #### [id number], [id number], [id number] #### [facility] (DEFAULT) [address] [place] [address] 56599DFKU-NgY-5 (COVID-19) PCRon 16-31-0850YJPTX-19 PCRNot DetectedNormalNot DetectedSouthwest General Health CenterComment on above:Result Comment: performed in house Results Called To Dexteralonzo in pre-surg By ARIADNA And Read Back For Confirmation On 05/23/2020 10:55:59 EDTPerformed By: #### [id number], [id number], [id number] #### [facility] (DEFAULT) [address] [place] [address] 74141LO Knee One or Two Views Lefton 76-01-8766RZ Knee One or Two Views LeftEXAM: XR KNEE 2 VIEWS LEFT HISTORY: knee [...] Signature): Jae Cardona 05/23/20 4:50 pm Technologist: Tabitha BLANTONSouthwest General Health CenterProgress Note - Nurseon 05-07-2020 Progress Note - NurseChart reviewed by Dr. Maria and no new orders received. May proceed to surgery. [Electronically Signed on: 05/07/2020 15:56 EDT] Chrissie Contreras RN [Verified on: 05/07/2020 15:56 EDT] Chrissie Contreras RNSumma Health Barber[facility] Campus HospitalCoding Summaryon 01-95-6707Ivyerv SummaryCODING DATE: 02/27/2020 [facility] STATUS: Home PAYOR: Medicare APC DESCRIPTION [...] Morena Fang Revised Date Saved: 02/27/2020 01:41 [facility] HospitalProgress Note - Nurseon 67-89-8966Nhqbddqw Note - NurseChart reviewed by Dr. Garcia and no new orders received. [Electronically Signed on: 02/12/2020 15:52 EDT] Chrissie Contreras RN [Verified on: 02/12/2020 15:52 EDT] Chrissie Contreras RNSouthwest General Health CenterProvider Orderson 02-11-2020 Provider [id number]#1.00OTGTIFFNoAultman [facility] Urineon 02-10-2020C UrineUrine Culture ordered as a result of parameters set on specific urine dip and urine microsopic results. Mixed skin, or urogenital paddy. Clinically insignificantNormalSouthwest General Health Center Comment on above:Performed By: #### [id number], [id number], [id number] #### [facility] (DEFAULT) [address] [place] [address] 12701.Auto Diff 1on 29-83-5854Rmbc Rolette %12 %Normal1-12[facility] HospitalComment on above:Performed By: #### [id number], [id number], [id number] #### [facility] (DEFAULT) [address] [place] [address] 49225Eoge Abs#0.0 f27Mjgcjm7.0-0.2[facility] HospitalComment on above:Performed By: #### [id number], [id number], [id number] #### [facility] (DEFAULT) [address] [place] [address] 35563Thfgotkff/100 WBC (Bld)0.4 %Normal0.2-2.0[facility] Comment on above:Performed By: #### [id number], [id number], [id number] #### [facility] (DEFAULT) [address] [place] [address] 89572Qqe Abs#0.1 o38Xzunvk8.0-0.4[facility] HospitalComment on above:Performed By: #### [id number], [id number], [id number] #### [facility] (DEFAULT) [address] [place] [address] 12257Isjlbqrojgz/100 WBC (Bld)1.9 %Normal0.9-4.0[facility] HospitalComment on above:Performed By: #### [id number], [id number], [id number] #### [facility] (DEFAULT) [address] [place] [address] 08657Xdgqkgngkrn (Bld) [#/Vol]1.0 o39Fzo9.3-2.9[facility] HospitalComment on above:Performed By: #### [id number], 72286000, [id number] #### [facility] (DEFAULT) [address] [place] [address] 20407Ldadphyqahd/100 WBC (Bld)22 %Cjvmjz78-32Ydydsidx Hospital Comment on above:Performed By: #### [id number], [id number], [id number] #### [facility] (DEFAULT) [address] [place] [address] 93646Yovy Abs#0.6 e74Kskhil3.0-0.8[facility] HospitalComment on above:Performed By: #### [id number], [id number], [id number] #### [facility] (DEFAULT) [address] [place] [address] 21071Tegr Abs#3.0 w39Twcujs8.5-9.2[facility] HospitalComment on above:Performed By: #### [id number], 35857566, [id number] #### [facility] (DEFAULT) [address] [place] [address] 57778Bdhrunlroqb/100 WBC (Bld)64 %Kuvfnv74-08Yrfjrglo Hospital Comment on above:Performed By: #### [id number], 52040643, [id number] #### [facility] (DEFAULT) [address] [place] [address] 62400WYW Standardon 99-79-0190iGDM Non AA>60[facility] Comment on above:Performed By: #### [id number], [id number], [id number] #### [facility] (DEFAULT) [address] [place] [address] 71052vZEN AA>60[facility] Health CenterComment on above:Result Comment: Chronic Kidney disease could be indicated at eGFRs of less than 60 ml/min/1.73m2. Kidney Failure is indicated at less than 15 ml/min/1.73m2 Performed By: #### [id number], [id number], [id number] #### [facility] (DEFAULT[facility] [address] [place] [address] 09520Wkjcz gap [Moles/Vol]15.0 mmol/LNormal5.0-19.0[facility] HospitalComment on above:Performed By: #### [id number], 30729057, [id number] #### [facility] (DEFAULT) [address] [place] [address] 50531Mboqopq [Mass/Vol]9.4 mg/dLNormal8.9-10.3[facility] Hospital Comment on above:Performed By: #### 6857862, 13933539, [id number] #### [facility] (DEFAULT) [address] [place] [address] 49015Lyqmnmwl [Moles/Vol]102 mmol/KMhkzaj134-056Szulynic HospitalComment on above:Performed By: #### 0165548, 97234297, [id number] #### [facility] (DEFAULT) [address] [place] [address] 61598GM0 [Moles/Vol]26 mmol/GJgifyh92-62Vmasaxuz Hospital Comment on above:Performed By: #### [id number], 87392963, [id number] #### [facility] (DEFAULT) [address] [place] [address] 63412Oykfxpjwcz [Mass/Vol]0.64 mg/dLNormal0.60-1.30[facility] HospitalComment on above:Performed By: #### [id number], 91250820, [id number] #### [facility] (DEFAULT) [address] [place] [address] 60920Yduswer [Mass/Vol]112.0 mg/sPTyfyfw96.0-118.0[facility] HospitalComment on above:Performed By: #### 2468048, 47316218, [id number] #### [facility] (DEFAULT) [address] [place] [address] 81084Dfxlaafhth [Osmolality]280 mOsm/LMcleveland clinic mercy hospital HospitalComment on above:Performed By: #### [id number], 69326313, [id number] #### [facility] (DEFAULT) [address] [place] [address] 89573Orgwemmpt [Moles/Vol]4.1 mmol/LNormal3.6-5.1[facility] HospitalComment on above:Performed By: #### 2252147, 25259910, [id number] #### [facility] (DEFAULT) [address] [place] [address] 89914Kmfwxb [Moles/Vol]139.0 mmol/SApdwtm417.0-144.0[facility] HospitalComment on above:Performed By: #### 9249583, 99022436, [id number] #### [facility] (DEFAULT) [address] [place] [address] 10755Unwi nitrogen [Mass/Vol]19 mg/dLNormal8-26[facility] HospitalComment on above:Performed By: #### 1242468, 98695448, [id number] #### [facility] (DEFAULT) [address] [place] [address] 43431Srio nitrogen/Creatinine [Mass ratio]30.0 mg/mgHigh 4.6-16.2[facility] HospitalComment on above:Performed By: #### 4092548, 82412174, [id number] #### [facility] (DEFAULT) [address] [place] [address] 63383OZM w/ Auto Diffon 16-17-7949Jqwejokqvkq distribution width (RBC) [Ratio]14.8 %Atbiqe88.5-15.0[facility] HospitalComment on above: Performed By: #### [id number], 52549043, [id number] #### [facility] (DEFAULT) [address] [place] [address] 72172Futytrtbis (Bld) [Volume fraction]37.2 %Rmpkcy38.7-40.4 [facility] HospitalComment on above:Performed By: #### 1490169, 94120939, [id number] #### [facility] (DEFAULT) [address] [place] [address] 53847Csbxmhpojj (Bld) [Mass/Vol]11.6 g/mRBcoemi92.3-15.9 [facility] HospitalComment on above:Performed By: #### 6177361, 87873688, [id number] #### [facility] (DEFAULT) [address] [place] [address] 36229Cmj Diff?AutoNormalLicking Memorial Hospital HospitalComment on above: Performed By: #### [id number], 32245275, [id number] #### [facility] (DEFAULT) [address] [place] [address] 02174DDU (RBC) [Entitic mass]26 ofTohtxz28-32Fienupop Hospital Comment on above:Performed By: #### 7261599, 95373852, [id number] #### [facility] (DEFAULT) [address] [place] [address] 17276JWET (RBC) [Mass/Vol]31 g/mPQzeqqc70-82Jqalhmdr Hospital Comment on above:Performed By: #### 8439187, 88777118, [id number] #### [facility] (DEFAULT) [address] [place] [address] 62924NDT (RBC) [Entitic vol]83 eBZvnpjt81-178Vgpvjfld Hospital Comment on above:Performed By: #### 7267213, 99634056, [id number] #### [facility] (DEFAULT) [address] [place] [address] 30187Lxoqegnb mean volume (Bld) [Entitic vol]10.8 fLHigh 6.3-10.2[facility] HospitalComment on above:Performed By: #### 2249263, 67214410, [id number] #### [facility] (DEFAULT) [address] [place] [address] 64608Dzhirxxuz (Bld) [#/Vol]218 v25Kweiiz361-950Djxadszm HospitalComment on above:Performed By: #### 8827836, 58264684, [id number] #### [facility] (DEFAULT) [address] [place] [address] 97551QVB (Bld) [#/Vol]4.47 y24Ntybol8.70-5.30[facility] Hospital Comment on above:Performed By: #### 1062948, 29759577, [id number] #### [facility] (DEFAULT) [address] [place] [address] 22691GWT (Bld) [#/Vol]4.8 w98Jfatxc4.5-10.5[facility] Hospital Comment on above:Performed By: #### 1217435, 37602794, [id number] #### [facility] (DEFAULT) [address] [place] [address] 01725QK Dcwfi9vc 60-30-2034GFI (U) [#/Vol]None SeenNormal [facility] HospitalComment on above:Order Comment: Urinalysis Microscopic order added on by [employer] Expert Rules system.Performed By: #### [id number], 95465832, [id number] #### [facility] (DEFAULT) [address] [place] [address] 94347KL Bacteria2+NormalLicking Memorial Hospital HospitalComment on above:Order Comment: Urinalysis Microscopic order added on by [employer] Rules system. Performed By: #### [id number], [id number], [id number] #### [facility] (DEFAULT) [address] [place] [address] 50230CY Squam EpiModerateNoSumma Health Barberton Campus HospitalComment on above:Order Comment: Urinalysis Microscopic order added on by [employer] Rules system.Performed By: #### [id number], [id number], [id number] #### [facility] (DEFAULT) [address] [place] [address] 56210WN WBC3-5NormOhioHealth Dublin Methodist Hospital HospitalComment on above:Order Comment: Urinalysis Microscopic order added on by [employer] Rules system. Performed By: #### [id number], 64535325, [id number] #### [facility] (DEFAULT) [address] [place] [address] 23544SY w Culture if Ind Standardon 99-78-2717Rowvdytuvw UA NormalLicking Memorial Hospital HospitalComment on above:Performed By: #### [id number], 73858165, [id number] #### [facility] (DEFAULT) [address] [place] [address] 23779Lehtd (U)YellowNormalMagraccess hospital [facility] HospitalComment on above: Performed By: #### [id number], [id number], [id number] #### [facility] (DEFAULT) [address] [place] [address] 39526Paiifad?YesNormalMagruder HospitalComment on above: Performed By: #### [id number], [id number], [id number] #### [facility] (DEFAULT) [address] [place] [address] 61009Apgdhwy (U) [Mass/Vol]NegativeNormalLicking Memorial Hospital Hospital Comment on above:Performed By: #### [id number], [id number], [id number] #### [facility] (DEFAULT) [address] [place] [address] 86314Rprqrjf Ql (U)NegativeNormalLicking Memorial Hospital HospitalComment on above:Performed By: #### [id number], [id number], [id number] #### [facility] (DEFAULT) [address] [place] [address] 86112Nhans?IndicatedMagruder HospitalComment on above:Performed By: #### [id number], 72478528, [id number] #### [facility] (DEFAULT) [address] [place] [address] 65181IV BilirubinNegativeNormalMacleveland clinic [facility] hospital HospitalComment on above:Performed By: #### [id number], [id number], [id number] #### [facility] (DEFAULT) [address] [place] [address] 88652FY BloodNegativeNormalNEGATIVEMacleveland clinic avon hospital HospitalComment on above:Performed By: #### [id number], [id number], [id number] #### [facility] (DEFAULT) [address] [place] [address] 04487ZZ ClaritySL CLOUDYAbnormalCLEARMagraccess hospital [facility]ton HospitalComment on above:Performed By: #### [id number], [id number], [id number] #### [facility] (DEFAULT) [address] [place] [address] 17630DQ Leuk EstTRACEAbnormalNEGATIVEMacleveland clinic avon hospital HospitalComment on above:Performed By: #### [id number], 35890743, [id number] #### [facility] (DEFAULT) [address] [place] [address] 26599RB NitriteNegativeNormalNEGATIVELicking Memorial Hospital HospitalComment on above:Performed By: #### [id number], 11711241, [id number] #### [facility] (DEFAULT) [address] [place] [address] 81439TK pH6.0Gnyydq2-7Bonlkctj HospitalComment on above: Performed By: #### [id number], 93269004, [id number] #### [facility] (DEFAULT) [address] [place] [address] 00679IW ProteinNegativeNormalNEGATIVELicking Memorial Hospital HospitalComment on above:Performed By: #### [id number], 28126522, 8707850 #### [facility] (DEFAULT) [address] [place] [address] 18857TK Spec Grav1.411Lozvgu9.001-1.035[facility] HospitalComment on above:Performed By: #### [id number], [id number], [id number] #### [facility] (DEFAULT) [address] [place] [address] 69118AP Urobilinogen0.2 mg/dLNormal0.2-1.0[facility] Hospital Comment on above:Performed By: #### [id number], 76217685, [id number] #### [facility] (DEFAULT) [address] [place] [address] 97922Rcjjg SourceClean CatchNormalLicking Memorial Hospital HospitalComment on above:Performed By: #### [id number], 81649572, [id number] #### [facility] (DEFAULT) [address] [place] [address] 02451WP Knee Complete Left Standingon 57-24-0217YA Knee Complete Left StandingEXAM: XR Knee Complete Left Standing HISTORY: left [...] Signature): Hieu Mcpherson 02/08/20 3:02 pm Technologist[facility] Vital Signs Date TimeVital SignValuePerforming QaowjtovrAasaahbv70-44-4995 10:45-0400Body fbussg727.4 cmBenjamin Ball DO Work Phone: [phone])[address] [place], [place] 9594309-15-2025 10:45-0400 Body mass index (BMI) [Ratio]54.6 kg/d9Boqieozk Ball DO Work Phone: [phone])[address] [place], [place] 9594309-15-2025 10:45-0400 Body .77 kgBenjamin Ball DO Work Phone: 1(419)[address] [place], [place] 9594309-15-2025 10:45-0400 Diastolic blood bxcmelil89 mm[Hg]Robert Ball DO Work Phone: 1(419)[address] [place], [place] 9594309-15-2025 10:45-0400 Heart rate81 /minBenjamin Ball DO Work Phone: 1(419)[address] [place], [place] 9594309-15-2025 10:45-0400 Respiratory rate12 /minBenjamin Ball DO Work Phone: 1(419)[address] [place], [place] 9594309-15-2025 10:45-0400 Systolic blood thiuuhnb929 mm[Hg]Robert Ball DO Work Phone: 1(419)[address] [place], [place] 9594307-22-2025 14:12-0400 Body jomfli922.4 cmBenjamin Ball DO Work Phone: 1(419)[address] [place], [place] 9594307-22-2025 14:12-0400 Body mass index (BMI) [Ratio]53.8 kg/i1Buwvrmen Ball DO Work Phone: 1(048)[address] [place], [place] 9594307-22-2025 14:12-0400 Body chjuan230.19 kgBenjamin Ball DO Work Phone: [phone])[address] [place], [place] 9594307-22-2025 14:12-0400 Diastolic blood lcdlocfw37 mm[Hg]Robert Ball DO Work Phone: [phone])[address] [place], [place] 9594307-22-2025 14:12-0400 Heart rate76 /minBenjamin Ball DO Work Phone: [phone])[address] [place], [place] 9594307-22-2025 14:12-0400 Respiratory rate12 /minBenjamin Ball DO Work Phone: [phone])[address] [place], [place] 9594307-22-2025 14:12-0400 Systolic blood ehbjbfke971 mm[Hg]Robert Ball DO Work Phone: 1(273)[address] [place], [place] 9594307-18-2025 11:29-0400 Body mgxyjp006.4 cmBenjamin Ball DO Work Phone: 1(294)[address] [place], [place] 9594307-18-2025 11:29-0400 Body mass index (BMI) [Ratio]53.8 kg/i0Rxmbpfod Ball DO Work Phone: 1(515)[address] [place], [place] 9594307-18-2025 11:29-0400 Body xrbdyyowcrb79.4 [degF]Robert Ball DO Work Phone: 1(865)[address] [place], [place] 9594307-18-2025 11:29-0400 Body saxelt830.19 kgBenjamin Ball DO Work Phone: [phone])[address] [place], [place] 9594307-18-2025 11:29-0400 Diastolic blood dnulauiv48 mm[Hg]Robert Ball DO Work Phone: 1419)[address] [place], [place] 9594307-18-2025 11:29-0400 Heart rate82 /minBenjamin Ball DO Work Phone: [phone])[address] [place], [place] 9594307-18-2025 11:29-0400 SaO2% (BldA) [Mass fraction]96 %Robert Ball DO Work Phone: 1419)[address] [place], [place] 9594307-18-2025 11:29-0400 Systolic blood doheqkes463 mm[Hg]Robert Ball DO Work Phone: 1419)[address] [place], [place] 9594306-19-2025 12:03-0400 Body jckoqv615.4 cmBenjamin Ball DO Work Phone: [phone])[address] [place], [place] 9594306-19-2025 12:03-0400 Body mass index (BMI) [Ratio]53.3 kg/i5Xvvcqhwo Ball DO Work Phone: 1419)[address] [place], [place] 9594306-19-2025 12:03-0400 Body nlobti729.83 kgBenjamin Ball DO Work Phone: 1419)[address] [place], [place] 9594306-19-2025 12:03-0400 Diastolic blood xhisumts19 mm[Hg]Robert Ball DO Work Phone: 1419)[address] [place], [place] 9594306-19-2025 12:03-0400 Heart rate82 /minBenjamin Ball DO Work Phone: 1419)[address] [place], [place] 9594306-19-2025 12:03-0400 Respiratory rate12 /minBenjamin Ball DO Work Phone: 1(388)[address] [place], [place] [id number] 12:03-0400 Systolic blood mm[Hg]Robert Ball DO Work Phone: [phone])[address] [place], [place] [id number] 13:26-0400 [facility] .[facility] 13:26-0400Body mass index (BMI) [Ratio]53.3 kg/r1OkdrtroieK[facility]06-09-2025 13:26-0400Body ehsuxm285.83 kgK[facility]06-09-2025 13:26-0400Diastolic blood eulrrebq10 mm[Hg][facility] 05-06-2025 13:26-0400Heart rate77 /[facility] 05-06-2025 13:26-0400Respiratory rate12 /[facility] 05-06-2025 13:26-0400Systolic blood qeppkjzd305 mm[Hg][facility]06-09-2025 12:07-0400Diastolic blood zakqhose16 mm[Hg][facility]06-09-2025 12:07-0400Heart rate75 /[facility]06-09-2025 12:07-0929MxY9% (BldA) [Mass fraction]96 %[facility]06-09-2025 12:07-0400Systolic blood mm[Hg][facility]05-19-2025 13:57-0400Body zupzja562.4 cmK[facility]05-19-2025 13:57-0400Body mass index (BMI) [Ratio]53.4 kg/m1QpkgrnspaK[facility]tering Health [facility]05-19-2025 13:57-0400Body kg [facility]05-19-2025 13:57-0400Diastolic blood plviehxm84 mm[Hg][facility]05-19-2025 13:57-0400Heart rate77 /min [facility]05-19-2025 13:57-0400Respiratory rate18 /min [facility]05-19-2025 13:57-3253VxO6% (BldA) [Mass fraction]98 %[facility]05-19-2025 13:57-0400Systolic blood cujpihlf150 mm[Hg][facility]05-13-2025 10:22-0400 Body suclax649.4 cmK[facility]05-13-2025 10:22-0400Body mass index (BMI) [Ratio]53.6 kg/c0VyceookcgK[facility]tering Health [facility]05-13-2025 10:22-0400Body nqokxh021.45 kgK[facility]05-13-2025 10:22-0400Diastolic blood bximyfri65 mm[Hg][facility] 04-09-2025 10:22-0400Heart rate92 /[facility] 04-09-2025 10:22-0400Respiratory rate12 /[facility] 04-09-2025 10:0429CyJ2% (BldA) [Mass fraction]98 %[facility]05-13-2025 10:Systolic blood ttfkwywm187 mm[Hg][facility]04-23-2025 13:29-0400Body pnhyej183.4 cmBenjamin Ball DO Work Phone: 1(490)394-[address] [place], [place] [address]-23-2025 13:29-0400 Body mass index (BMI) [Ratio]53.6 kg/t9Ggfuzgwt Ball DO Work Phone: [phone])[address] [place], [place] 9594304-23-2025 13:29-0400 Body sgidfc087.73 kgBenjamin Ball DO Work Phone: 1(817)[address]04-23-2025 13:29-0400 Diastolic blood mm[Hg]Robert Ball DO Work Phone: 1(679)[address]04-23-2025 13:29-0400 Heart rate88 /minBenjamin Ball DO Work Phone: 1(256)[address]04-23-2025 13:29-0400 SaO2% (BldA) [Mass fraction]97 %Robert Ball DO Work Phone: 1(930)348-[address] [place] [address]-23-2025 13:29-0400 Systolic blood ssqiufly680 mm[Hg]Robert Ball DO Work Phone: 1(586)367-[address] [place] [address]-01-2025 10:38-0400 Diastolic blood ndgokwiq42 mm[Hg]Robert Ball DO Work Phone: 1(502)965-[address] [place] [address]-01-2025 10:38-0400 Heart rate73 /minBenjamin Ball DO Work Phone: 1(672)[address] [place], [place] 9594304-01-2025 10:38-0400 SaO2% (BldA) [Mass fraction]99 %Robert Ball DO Work Phone: 1(980)423-[address] [place] [address]-01-2025 10:38-0400 Systolic blood ubsgiqpn280 mm[Hg]Robert Ball DO Work Phone: 1(656)[facility] [place] [address]-19-2025 13:05-0500 Diastolic blood dbanvmqy56 mm[Hg]Robert Ball DO Work Phone: 1(401)[address] [place], [place] 9594302-19-2025 13:05-0500 Heart rate76 /minBenjamin Ball DO Work Phone: 1419)[address] [place], [place] 9594302-19-2025 13:05-0500 SaO2% (BldA) [Mass fraction]98 %Robert Ball DO Work Phone: [address] [place], [place] 9594302-19-2025 13:05-0500 Systolic blood xlzmsxti450 mm[Hg]Robert Ball DO Work Phone: 1(202)[address] [place], [place] 9594302-07-2025 11:57-0500 Body aaijpk228.56 cmBenjamin Ball DO Work Phone: 1(717)[address] [place], [place] 9594302-07-2025 11:57-0500 Body mass index (BMI) [Ratio]48.1 kg/w9Dniyqsfm Ball DO Work Phone: 1(856)[address] [place], [place] 9594302-07-2025 11:57-0500 Body zmhsum311.14 kgBenjamin Ball DO Work Phone: 1(416)[address] [place], [place] 9594302-07-2025 11:57-0500 Diastolic blood mm[Hg]Robert Ball DO Work Phone: 1(017)[address] [place], [place] 9594302-07-2025 11:57-0500 Heart rate96 /minBenjamin Ball DO Work Phone: 1(776)[address] [place], [place] 9594302-07-2025 11:57-0500 Respiratory rate12 /minBenjamin Ball DO Work Phone: 1(152)[address] [place], [place] 9594302-07-2025 11:57-0500 Systolic blood mm[Hg]Robert Ball DO Work Phone: 1(837)[address] [place], [place] 9594301-29-2025 12:01-0500 Diastolic blood yijvupyt27 mm[Hg]Robert Ball DO Work Phone: 1(756)[facility] [place], [place] [address]-29-2025 12:01-0500 Heart rate70 /minBenjamin Ball DO Work Phone: 1(625)[address] [place], [place] 9594301-29-2025 12:01-0500 Respiratory rate16 /minBenjamin Ball DO Work Phone: 1(959)[address] [place], [place] 9594301-29-2025 12:01-0500 SaO2% (BldA) [Mass fraction]96 %Robert Ball DO Work Phone: 1(512)[address] [place], [place] 9594301-29-2025 12:010500 Systolic blood ksceczce538 mm[Hg]Robert Ball DO Work Phone: 1(895)[address] [place], [place] 9594301-29-2025 11:26-0500 Inhaled oxygen flow rate4 L/minBenjamin Ball DO Work Phone: 1(331)[address] [place], [place] 9594301-29-2025 09:15-0500 Body ugwfck206.4 cmBenjamin Ball DO Work Phone: 1(238)[address] [place], [place] 9594301-29-2025 09:15-0500 Body qgisrf217.46 kgBenjamin Ball DO Work Phone: 1(156)[address] [place], [place] 9594301-15-2025 13:50-0500 Body sebzit854.56 [facility] 13:50-0500Body mass index (BMI) [Ratio]48.1 kg/n5FxztdupdzK[facility]01-15-2025 13:50-0500Body aqcwkc838.26 kgK[facility]01-15-2025 13:50-0500Diastolic blood txkzlofm06 mm[Hg][facility] 12-12-2024 13:50-0500Heart rate89 /[facility] 12-12-2024 13:50-0500Respiratory rate16 /[facility] 12-12-2024 13:50-0500Systolic blood sibfwbnb592 mm[Hg][facility]01-13-2025 13:38-0500Body fedjhz494.56 cmK[facility]01-13-2025 13:38-0500Body mass index (BMI) [Ratio]48.2 kg/s4UkugpjqkaK[facility] Health [facility]01-13-2025 13:38-0500Body .45 kgK[facility]01-13-2025 13:38-0500Diastolic blood pfzniana18 mm[Hg] [facility]01-13-2025 13:38-0500Heart rate88 /[facility]01-13-2025 13:38-9292BeL4% (BldA) [Mass fraction]98 % [facility]01-13-2025 13:38-0500Systolic blood tqwppvxi157 mm[Hg][facility]01-10-2025 11:02-0500Body ybfioq878.56 cm [facility]01-10-2025 11:02-0500Body mass index (BMI) [Ratio]48.3 kg/m9JjpjkkcerK[facility]01-10-2025 11:02-0500Body eulzzx431.68 kgK[facility]01-10-2025 11:02-0500Diastolic blood cayiahxg92 mm[Hg][facility]01-10-2025 11:02-0500 Heart rate96 /[facility]01-10-2025 11:02-0500 Respiratory rate12 /[facility]01-10-2025 11:02-0500 Systolic blood tqumjfni140 mm[Hg][facility]10-08-2024 09:46-0400Diastolic blood lbbaglpy11 mm[Hg]DO Robert Ball Work Phone: [facility]10-08-2024 09:46-0400 Heart rate73 /minDO Robert Ball Work Phone: [facility]10-08-2024 09:46-0400 SaO2% (BldA) [Mass fraction]97 %DO Robert Ball Work Phone: [facility]10-08-2024 09:46-0400 Systolic blood mm[Hg]DO Robert Ball Work Phone: 1(003)[address]09-27-2024 11:03-0400 Heart rate97 /minDO Robert Ball Work Phone: 1(319)[address] [place], [place] 9594309-27-2024 11:03-0400 SaO2% (BldA) [Mass fraction]96 %DO Robert Ball Work Phone: 1(309)[address]09-13-2024 14:18-0400 Diastolic blood kyvdnfnp55 mm[Hg]DO Robert Ball Work Phone: 1(906)[address] [place], [place] 9594309-13-2024 14:18-0400 Heart rate73 /minDO Robert Ball Work Phone: 1(015)[address] [place], [place] 9594309-13-2024 14:18-0400 Respiratory rate16 /minDO Robert Ball Work Phone: 1(144)[address] [place], [place] 9594309-13-2024 14:18-0400 SaO2% (BldA) [Mass fraction]98 %DO Robert Ball Work Phone: 1(794)[address] [place], [place] 9594309-13-2024 14:18-0400 Systolic blood mm[Hg]DO Robert Ball Work Phone: 1(996)[address] [place], [place] 9594309-13-2024 12:13-0400 Body oarmmx070.4 cmDO Robert Ball Work Phone: 1(939)[address]09-13-2024 12:13-0400 Body sbukov095.2 kgDO Robert Ball Work Phone: 1(058)[address]09-09-2024 10:49-0400 Body .4 cmDO Robert Ball Work Phone: 1(092)[address] [place], [place] 9594309-09-2024 10:49-0400 Body mass index (BMI) [Ratio]54.5 kg/m2DO Robert Ball Work Phone: 1(697)[address]09-09-2024 10:49-0400 Body .6 kgDO Robert Ball Work Phone: 1(419)483-[address] [place] [address]-09-2024 10:49-0400 Diastolic blood gzngqaru31 mm[Hg]DO Robert Ball Work Phone: 1(149)426-[address] [place] [address]-09-2024 10:49-0400 Heart rate65 /minDO Robert Ball Work Phone: 1(518)539-[address] [place] [address]-09-2024 10:49-0400 Respiratory rate12 /minDO Robert Ball Work Phone: 1(896)081-[address] [place] [address]-09-2024 10:49-0400 Systolic blood jwowtwzl823 mm[Hg]DO Robert Ball Work Phone: 1(525)[address] [place], [place] 9594309-03-2024 11:13-0400 Diastolic blood sftusgmv70 mm[Hg]DO Robert Ball Work Phone: 1(457)[address] [place], [place] 9594309-03-2024 11:13-0400 Heart rate71 /minDO Robert Ball Work Phone: 1(650)[address] [place], [place] 9594309-03-2024 11:13-0400 SaO2% (BldA) [Mass fraction]97 %DO Robert Ball Work Phone: 1(040)[address] [place], [place] 9594309-03-2024 11:13-0400 Systolic blood xybfsjus384 mm[Hg]DO Robert Ball Work Phone: 1(655)[address] [place], [place] 9594307-01-2024 14:21-0400 Body .4 cmDO Robert Ball Work Phone: 1(103)[address] [place], [place] 9594307-01-2024 14:21-0400 Body mass index (BMI) [Ratio]52.1 kg/m2DO Robert Ball Work Phone: 1(637)[address]07-01-2024 14:21-0400 Body tinfrf232.1 kgDO Robert Ball Work Phone: 1(138)[address]07-01-2024 14:21-0400 Diastolic blood wcgedrvs49 mm[Hg]DO Robert Ball Work Phone: 1(794)[address]07-01-2024 14:21-0400 Heart rate68 /Blanca Vail Work Phone: [facility]07-01-2024 14:21-0400 Respiratory rate18 /Blanca Jones [employer] Work Phone: [facility]07-01-2024 14:21-0400 SaO2% (BldA) [Mass fraction]98 %DO Robert [employer] Work Phone: [facility]07-01-2024 14:21-0400 Systolic blood fanxuznv078 mm[Hg]DO Robert [employer] Work Phone: [facility]06-03-2024 15:05-0400 Diastolic blood mywjraux36 mm[Hg][facility]06-03-2024 15:05-0400Heart rate98 /[facility]06-03-2024 15:05-0923YtN6% (BldA) [Mass fraction]97 %[facility] 04-30-2024 15:05-0400Systolic blood plbprytt011 mm[Hg][facility]05-02-2024 10:44-0400Body .4 cmK[facility] 03-29-2024 10:44-0400Body mass index (BMI) [Ratio]53.6 kg/k5NvatcvgaxK[facility]05-02-2024 10:44-0400Body vnyoka888.45 kgK[facility]05-02-2024 10:44-0400Diastolic blood hdaoicpp06 mm[Hg][facility]05-02-2024 10:44-0400Heart rate75 /[facility]05-02-2024 10:44-0400Respiratory rate16 /[facility]05-02-2024 10:44-0400Systolic blood ihzvmkar515 mm[Hg][facility]03-20-2024 14:20-0400Body tqavbq454.4 cmDO Robert [employer] Work Phone: [facility]03-20-2024 14:20-0400 Body mass index (BMI) [Ratio]53.1 kg/m2DO Robert Ball Work Phone: [facility]03-20-2024 14:20-0400 Body untxzz884.37 kgDO Robert Ball Work Phone: [facility]03-20-2024 14:20-0400 Diastolic blood qvicyucw47 mm[Hg]DO Robert Ball Work Phone: [facility]03-20-2024 14:20-0400 Heart rate77 /minDO Robert Ball Work Phone: [phone]03-20-2024 14:20-0400 Respiratory rate16 /minDO Robert Ball Work Phone: [phone]([phone]03-20-2024 14:20-0400 Systolic blood xvsgvibf518 mm[Hg]DO Robert Ball Work Phone: 1([phone]47[facility]10-25-2023 14:00-0400 Body pbduis896.4 cmBenjamin Ball Other [employer] Other 10-25-2023 14:00-0400Body mass index (BMI) [Ratio] 52.69 kg/n8Hjtbkjve Ball Other [employer] Other 10-25-2023 14:00-0400Body yajhuq751.38 kgBenjamin Ball Other [employer] Other 10-25-2023 14:00-0400Diastolic blood ofeuqufg92 mm[Hg] Robert Ball Other [employer] Other 10-25-2023 14:00-0400Respiratory rate20 /minBenjamin Ball Other [employer] Other 10-25-2023 14:00-0400Systolic blood umrizrtu651 mm[Hg] Robert Ball Other [employer] Other 09-18-2023 15:00-0400Body rnmaqs412.4 cmBenjamin Ball Other [employer] Other 09-18-2023 15:00-0400Body mass index (BMI) [Ratio] 54.33 kg/i6Gfyxdzmf Ball Other [employer] Other 09-18-2023 15:00-0400Body odhrxh332.19 kgBenjamin Ball Other [employer] Other 09-18-2023 15:00-0400Diastolic blood uzvztjov70 mm[Hg] Robert Ball Other [employer] Other 09-18-2023 15:00-0400Respiratory rate16 /minBenjamin Ball Other [employer] Other 09-18-2023 15:00-0400Systolic blood vllylvfw920 mm[Hg] Robert Ball Other [employer] Other 08-14-2023 11:00-0400Body dukysa677.4 cmBenjamin Ball Other [employer] Other 08-14-2023 11:00-0400Body mass index (BMI) [Ratio] 55.26 kg/w4Yehwemye Ball Other [employer] Other 08-14-2023 11:00-0400Body aiznxy700.37 kgBenjamin Ball Other [employer] Other 08-14-2023 11:00-0400Diastolic blood jvbkhsih58 mm[Hg] Robert Ball Other [employer] Other 08-14-2023 11:00-0400Respiratory rate16 /minBenjamin Ball Other [employer] Other 08-14-2023 11:00-0400Systolic blood mnsafgzi318 mm[Hg] Robert Ball Other [employer] Other 06-28-2023 14:00-0400Body xratcq707.4 cmBenjamin Ball Other [employer] Other 06-28-2023 14:00-0400Body mass index (BMI) [Ratio] 54.25 kg/y2Kjbgfghs Ball Other [employer] Other 06-28-2023 14:00-0400Body qzigsy579.01 kgBenjamin Ball Other [employer] Other 06-28-2023 14:00-0400Diastolic blood mm[Hg] Robert Ball Other [employer] Other 06-28-2023 14:00-0400Respiratory rate16 /minBenjamin Ball Other [employer] Other 06-28-2023 14:00-0400Systolic blood ajdwlznf876 mm[Hg] Robert Ball Other [employer] Other 05-12-2023 12:15-0400Body mosinc256.4 cmBenjamin Ball Other [employer] Other 05-12-2023 12:15-0400Body mass index (BMI) [Ratio] 53.84 kg/x7Xlvlsajg Ball Other [employer] Other 05-12-2023 12:15-0400Body rlikgi150.06 kgBenjamin Ball Other [employer] Other 05-12-2023 12:15-0400Diastolic blood dxpupwch45 mm[Hg] Robert Ball Other [employer] Other 05-12-2023 12:15-0400Respiratory rate12 /minBenjamin Ball Other [employer] Other 05-12-2023 12:15-0400Systolic blood dcppyxet875 mm[Hg] Robert Ball Other [employer] Other 04-26-2023 14:30-0400Body .4 cmBenjamin Ball Other [employer] Other 04-26-2023 14:30-0400Body mass index (BMI) [Ratio] 53.82 kg/u7Vjwhqgnq Ball Other [employer] Other 04-26-2023 14:30-0400Body qmkekt100.01 kgBenjamin Ball Other [employer] Other 04-26-2023 14:30-0400Diastolic blood gppohjgn95 mm[Hg] Robert Ball Other [employer] Other 04-26-2023 14:30-0400Respiratory rate12 /minBenjamin Ball Other [employer] Other 04-26-2023 14:30-0400Systolic blood mdotroqh524 mm[Hg] Robert Ball Other [employer] Other 04-05-2023 12:00-0400Body ydiebm438.4 cmBenjamin Ball Other [employer] Other 04-05-2023 12:00-0400Body mass index (BMI) [Ratio] 54.01 kg/y7Rkrithry Ball Other [employer] Other 04-05-2023 12:00-0400Body .47 kgBenjamin Ball [facility] Other 04-05-2023 12:00-0400Diastolic blood hvtiwhjs61 mm[Hg] Robert Ball Other [employer] Other 04-05-2023 12:00-0400Respiratory rate12 /minBenjamin Ball Other [employer] Other 04-05-2023 12:00-0400Systolic blood grolkrvo666 mm[Hg] Robert Ball Other [employer] Other 03-20-2023 14:15-0400Body yzvvsa815.4 Chetan Dunaway Other [facility] [employer] Other 03-20-2023 14:15-5669QxR8% (BldA) [Mass fraction]98 % Michael Dunaway Other [employer] Other 03-02-2023 15:00-0500Body blttjo263.4 Chetan Dunaway Other [employer] Other 03-02-2023 15:00-0500Diastolic blood mvlkaucl40 mm[Hg] Michael [facility]unaway [facility] Other 03-02-2023 15:00-1623WxY4% (BldA) [Mass fraction]98 % Michael Dunaway [facility] 03-02-2023 15:00-0500Systolic blood gietenvp743 mm[Hg] Michael Dunaway Other [employer] Other 02-03-2023 12:30-0500Body fndpun312.4 cmSraúl Dunaway Other [facility] Other 02-03-2023 12:30-9831JbM2% (BldA) [Mass fraction]96 % Michael Dunaway Other [employer] Other 01-30-2023 11:15-0500Body uhacpl931.4 cmIvon Batista Other [employer] Other 01-30-2023 11:15-0500Body mass index (BMI) [Ratio] 53.08 kg/m8QnhzrtIvon Batista Other [employer] Other 01-30-2023 11:15-0500Body ycbfznppmyz97 [degF]Ivon Batista Other [employer] Other 01-30-2023 11:15-0500Body iqxzgh453.29 kgIvon Batista Other [employer] Other 01-30-2023 11:15-0500Diastolic blood qmrsaycx95 mm[Hg] Ivon Batista Other [employer] Other 01-30-2023 11:15-1718MxX6% (BldA) [Mass fraction]96 % Ivon Batista Other [employer] Other 01-30-2023 11:15-0500Systolic blood jepixrbl755 mm[Hg] Ivon Batista Other [employer] Other 01-05-2023 11:45-0500Body umaoak208.4 cmPeggy Velarde Other [facility] Other 01-05-2023 11:45-0500Diastolic blood xzbpwjil49 mm[Hg] Ursula Velarde Other [employer] Other 01-05-2023 11:45-0862KfK2% (BldA) [Mass fraction]97 % Ursula Velarde Other [employer] Other 01-05-2023 11:45-0500Systolic blood mm[Hg] Ursula Velarde Other [employer] Other 12-06-2022 12:15-0500Body rehybh882.4 Chetan Dunaway Other [employer] Other 12-06-2022 12:15-0500Diastolic blood mm[Hg] Michael Dunaway Other [employer] Other 12-06-2022 12:15-0218QpN2% (BldA) [Mass fraction]98 % Michael Dunaway Other [employer] Other 12-06-2022 12:15-0500Systolic blood yworpqsq920 mm[Hg] Michael Dunaway Other [facility] [employer] Other 10-15-2022 11:55-0400Body aiopfe829.4 cmAale Acuñaler Other [facility] [employer] Other 10-15-2022 11:55-0400Body mass index (BMI) [Ratio] 50.77 kg/q8QokcnKaitlynn Foy Other [employer] Other 10-15-2022 11:55-0400Body vueecrsocnb37.8 [degF]Kaitlynn Foy Other [employer] Other 10-15-2022 11:55-0400Body .94 kgKaitlynn Foy Other [employer] Other 10-15-2022 11:55-0400Respiratory rate18 /minKaitlynn Foy Other [employer] Other 10-15-2022 11:55-9716LtK5% (BldA) [Mass fraction]97 % Kaitlynn Foy Other [facility] [employer] Other 10-14-2022 12:30-0400Body anmgjx805.4 cmSraúl Dunaway Other [facility] [employer] Other 10-14-2022 12:30-0400Diastolic blood drtpldfa42 mm[Hg] Michael Dunaway Other [facility] [employer] Other 10-14-2022 12:30-6677ErV9% (BldA) [Mass fraction]99 % Michael Dunaway Other [employer] Other 10-14-2022 12:30-0400Systolic blood hdicpsli443 mm[Hg] Michael Emelyn Other [employer] Other 09-01-2022 17:45-0400Body yeeybq996.4 cmSraúl Anthonyky Other [employer] Other 09-01-2022 17:45-0400Diastolic blood uaidrhjn45 mm[Hg] Michael Dunaway Other [employer] Other 09-01-2022 17:45-9510ZkS6% (BldA) [Mass fraction]99 % Michael Emelyn Other [employer] Other 09-01-2022 17:45-0400Systolic blood cuahnkvz856 mm[Hg] Michael Emelyn Other [employer] Other 08-05-2022 13:00-0400Body mbpdco513.4 Chetan Dunaway Other [employer] Other 08-05-2022 13:00-0400Body mass index (BMI) [Ratio] 53.97 kg/x6Exqcnx Emelyn Other [employer] Other 08-05-2022 13:00-0400Body usdsym228.38 kgSherikash Emelyn Other [employer] Other 08-05-2022 13:00-0400Diastolic blood onforvcx76 mm[Hg] Michael Dunaway Other [facility] [employer] Other 08-05-2022 13:00-8045PkM4% (BldA) [Mass fraction]97 % Michael Dunaway Other [facility] [employer] Other 08-05-2022 13:00-0400Systolic blood llbiggsa579 mm[Hg] Michael Dunaway Other [facility] [employer] Other 07-27-2022 12:52-0400Diastolic blood usywaqlf25 mm[Hg] DO Robert Ball Work Phone: [phone]07-27-2022 12:52-0400 Heart rate73 /minDO Robert Ball Work Phone: 1(203)766-[address] [place], [place] [address]-27-2022 12:52-0400 Respiratory rate20 /minDO Robert Ball Work Phone: [phone]07-27-2022 12:52-0400 SaO2% (BldA) [Mass fraction]97 %DO Robert Ball Work Phone: [phone](405)[phone]07-27-2022 12:52-0400 Systolic blood ohhrbaxf437 mm[Hg]DO Robert Ball Work Phone: 1(239)967-[address] [place], [place] [address]-27-2022 12:16-0400 Inhaled oxygen flow rate3 L/minDO Robert Ball Work Phone: [phone]-[facility]07-27-2022 10:24-0400 Body smfjuq024.4 cmDO Robert Ball Work Phone: [phone]07-27-2022 10:24-0400 Body pivvms303.37 kgDO Robert Ball Work Phone: [phone]07-22-2022 12:15-0400 Body yawmyd412.4 Chetan Dunaway Other [employer] Other 07-22-2022 12:15-0400Body mass index (BMI) [Ratio] 53.19 kg/p2Wxtodz Emelyn Other [facility] [employer] Other 07-22-2022 12:15-0400Body wjrceb700.56 kgSheduardkash Emelyn Other [facility] [employer] Other 07-22-2022 12:15-0400Diastolic blood ufoolmai15 mm[Hg] Michael Dunaway Other [facility] [employer] Other 07-22-2022 12:15-6393GhN4% (BldA) [Mass fraction]96 % Michael Dunaway Other [facility] [employer] Other 07-22-2022 12:15-0400Systolic blood esjlowwl564 mm[Hg] Michael Dunaway Other [facility] [employer] Other 06-08-2022 06:31-0400Body .4 cmDO [employer] Work Phone: [facility]06-08-2022 06:31-0400 Body mass index (BMI) [Ratio]51.7 kg/m2DO [employer] Work Phone: [facility]06-08-2022 06:31-0400 Body .2 kgDO [employer] Work Phone: [facility]04-14-2022 17:15-0400 Body .4 cmSraúl Dunaway Other [employer] Other 04-14-2022 17:15-0400Diastolic blood ielzxksh71 mm[Hg] Michael Dunaway Other [employer] Other 04-14-2022 17:15-9520YjL3% (BldA) [Mass fraction]98 % Michael Dunaway Other [facility] [employer] Other 04-14-2022 17:15-0400Systolic blood mm[Hg] Michael Dunaway [facility] [employer] Other 04-07-2022 09:59-0400Blood Pressure LocationMichael NILL [phone]-[facility]zzTr[facility] [place] 04-07-2022 09:59-0400Diastolic blood [id number] mm[Hg] Taye NILL [phone]-RcigzTr[facility] [place] 04-07-2022 09:59-0400Heart rate72 /minMichael NILL [phone]-LjavfTr[facility] [place] 04-07-2022 09:59-0400Respiratory rate20 /minMichael NILL [phone]-MrxayTr[facility] [place] 04-07-2022 09:59-0400Systolic blood mm[Hg] Taye NILL [phone]-UceesTrinity [facility] [place] 03-24-2022 17:00-0400Body ymsjnw175.4 cmSraúl Dunaway Other [facility] [employer] Other 03-24-2022 17:00-0400Body mass index (BMI) [Ratio] 53.51 kg/c7PzayggMichael Dunaway Other [employer] Other 03-24-2022 17:00-0400Body gzyffz848.29 kgMichael Dunaway Other [employer] Other 03-24-2022 17:00-0400Diastolic blood mm[Hg] Michael Dunaway Other [facility] HospitalIntuitive [facility] Interfaces Other 03-24-2022 17:00-8417QoA8% (BldA) [Mass fraction]94 % Michael Dunaway Other [employer] Other 03-24-2022 17:00-0400Systolic blood kmznpiyj148 mm[Hg] Michael Dunaway Other [employer] Other 03-03-2022 17:00-0500Body uyekpf382.4 cmDale Batista Other [employer] Other 03-03-2022 17:00-0500Body mass index (BMI) [Ratio] 50.38 kg/m2Dale Batista Other [employer] Other 03-03-2022 17:00-0500Body eimpmq833.03 kgDale Batista Other [employer] Other 2021 12:20-0500Body lqxeah404.4 cmPamela Iris Other [employer] Other 2021 12:20-0500Body mass index (BMI) [Ratio] 50.38 kg/u4Cpahhf Iris Other [employer] Other 2021 12:20-0500Body awhapqpozzo25.9 [degF]Quita Simmons Other [employer] Other 2021 12:20-0500Body qtajpi091.03 kgQuita Simmons Other [employer] Other 2021 12:20-0500Diastolic blood bgupvyjy58 mm[Hg] Quita Maiermond Other [employer] Other 2021 12:20-0500Respiratory rate18 /minQuita Simmons Other [employer] Other 2021 12:20-5187HbS2% (BldA) [Mass fraction]96 % Quita Simmons Other [facility] [employer] Other 2021 12:20-0500Systolic blood fibxfzwk807 mm[Hg] Quita Simmons Other [employer] Other Encounters Encounter DateEncounter TypeCare ProviderFacilityStart: 08-12-2025 End: 75-02-3160ynkweflklzWgcdqxse Ball DO Work Phone: [facility] Work Phone: Start: 08-12-2025 End: 63-86-4890Wuhdpkt encounter procedureBenjamin Ball DO-[facility] Work Phone: Start: 06-18-2025 End: 56-54-8617zackuhnnjrSvpilccc Ball DO Work Phone: [facility] Work Phone: Start: 06-18-2025 End: 61-23-4285Rbiwfqs encounter procedureBenjamin Ball DO-[facility] Work Phone: Start: 06-14-2025 End: 69-67-5981ldlsyvffdsUxzrzsuz Ball DO Work Phone: [facility] Work Phone: Start: 06-14-2025 End: 56-44-0207Bdidxrr encounter procedureAndreinadamian Lopezlavellachejackie 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-[facility] Work Phone: Start: 05-16-2025 End: 13-50-5421Dkgwiem encounter procedureBebeliameagan Vail DO-[facility] Work Phone: Start: 05-09-2025 End: 18-71-1010Ijzsoc flowsheetSammantjorge a Harper PTNOMS CI PTStart: 05-09-2025 End: 41-48-3854Ggdith flowsheetSbob Harper PTNOMS CI PTStart: 05-09-2025 End: 93-17-7774upjibiskzoOzvpitlgz Schneider PTNOMS CI PTComment on above:Low back pain, unspecified back pain laterality, unspecified chronicity, unspecified whether sciatica present (Primary Dx)Start: 05-07-2025 End: 33-67-2417Sandis Kathy Hagen PTANOMS CI PTStart: 05-07-2025 End: 85-74-6490Croorc miriNolvia Hagen PTANOMS CI PTStart: 05-07-2025 End: 58-65-3460vdfecvppwlNeslzqa Lawrence PTANOMS CI PTComment on above:Low back pain, unspecified back pain laterality, unspecified chronicity, unspecified whether sciatica present (Primary Dx)Start: 05-06-2025 End: 40-96-2392thjzsqnguuEwrxamwquSt. [facility] of [facility] Hospital Work Phone: Start: 05-06-2025 End: 55-81-5230Rhkrmmb encounter procedureDosher Memorial Hospitaljuancarlos Physician Group-[facility] Work Phone: Start: 05-06-2025 End: 39-70-0337wgkphwaalzOaledaxkeSt. John of God Hospital Work Phone: Start: 05-06-2025 End: 57-41-1053Emmfbrq encounter procedureF[facility]e [facility] Work Phone: Start: 05-03-2025 End: 06-16-9572Zwlqsy flowsheetSbob Harper PTNOMS CI PTStart: 05-03-2025 End: 60-73-9010Qukbpx flowsheetSbob Harper PTNOMS CI PTStart: 05-03-2025 End: 89-20-2401adztxixpwjUnstuuial Schneider PTNOMS CI PTComment on above:Low back pain, unspecified back pain laterality, unspecified chronicity, unspecified whether sciatica present (Primary Dx)Start: 04-30-2025 End: 59-44-4878Pajpwl Kathy Hagen PTANO CI PTStart: 04-30-2025 End: 60-91-1583Gubcpp Kathy Hagen PTANOMS CI PTStart: 04-30-2025 End: 63-87-3651mldqlexzjvNIQJRGI LAWRENCENOMS HealthcareComment on above:Low back pain, unspecified back pain laterality, unspecified chronicity, unspecified whether sciatica present (Primary Dx)Start: 04-26-2025 End: 61-34-6683Flcuks Kathy Hagen PTANOMS CI PTStart: 04-26-2025 End: 95-64-7712Cdwbuj Kathy Hagen PTANOMS CI PTStart: 04-26-2025 End: 03-59-5176pugqtrqescFefcalg Lawrence PTANO CI PTComment on above:Low back pain, unspecified back pain laterality, unspecified chronicity, unspecified whether sciatica present (Primary Dx)Start: 04-23-2025 End: 27-87-1572xroxhnuvytYzdqdmnSonya Hagen PTANOMS CI PTComment on above:Low back pain, unspecified back pain laterality, unspecified chronicity, unspecified whether sciatica present (Primary Dx)Start: 04-23-2025 End: 85-28-4643Jowfie Kathy Hagen PTANOMS CI PTStart: 04-23-2025 End: 34-75-7254Gczcek flowsheetKennetdarius Xiao PTANOMS CI PTStart: 04-19-2025 End: 08-20-9283wzxrvsnohoTIUNFZPMH SCHNEIDERNot AvailableStart: 29-24-7916Pup- patient / Non-visitF[facility]e [facility] Work Phone: Start: 04-15-2025 End: 19-33-5347Bkaezn flowsheetSammantha Harper PTNOMS CI PTStart: 04-15-2025 End: 54-51-3755Axwteh flowsheetSammantha Harper PTNOMS CI PTStart: 04-15-2025 End: 32-79-1559Wlojtap encounter procedureFormerly [facility] Countybrianna Physician [facility] Work Phone: Start: 04-15-2025 End: 22-91-8878kjblyogokzShbrfoiee Harper PTNOMS CI PTComment on above:Low back pain, unspecified back pain laterality, unspecified chronicity, unspecified whether sciatica present (Primary Dx)Start: 04-11-2025 End: 63-45-1814Tcracb flowsheetSammantha Harper PTNOMS CI PTStart: 04-11-2025 End: 71-17-1583Knwgqt flowsheetSammantha Harper PTNOMS CI PTStart: 04-11-2025 End: 36-22-8138sgpspzzlqnRaglwhhru Harper PTNOMS CI PTComment on above:Low back pain, unspecified back pain laterality, unspecified chronicity, unspecified whether sciatica present (Primary Dx)Start: 04-09-2025 End: 21-66-6793zfnsexsjnmSyrxzjsblSt. John of God Hospital Work Phone: Start: 04-09-2025 End: 13-21-5611Eykwosf encounter procedureFrye [facility] Work Phone: Start: 04-04-2025 End: 94-93-3320ikjqzxskvhZprblrk Lawrence PTANOMS CI PTComment on above:Low back pain, unspecified back pain laterality, unspecified chronicity, unspecified whether sciatica present (Primary Dx)Start: 04-04-2025 End: 27-99-5938Xprgjt flowsheetGabriel Hagen PTANOMS CI PTStart: 04-04-2025 End: 81-88-2133Twvvmp flowsheetGabriel Hagen PTANOMS CI PTStart: 04-01-2025 End: 77-67-5536dmmhszwxxnApqkccenx Harper PTNOMS CI PTComment on above:Low back pain, unspecified back pain laterality, unspecified chronicity, unspecified whether sciatica present (Primary Dx)Start: 03-28-2025 End: 21-72-9715jpqhualitaAxmyncgpjSt. John of [facility] Hospital Work Phone: Start: 03-28-2025 End: 20-23-5147Lezcnvu encounter procedureFrye [facility] Center Physician GroupHand [facility] Work Phone: Start: 03-21-2025 End: 37-92-6331Lfoqal flowsheetSammantha Harper PTNOMS CI PTStart: 03-21-2025 End: 95-47-0755Lbjqcx flowsheetSammantha Harper PTNOMS CI PTStart: 03-21-2025 End: 77-00-2393lqzgxdmsmhQczdqwiow Harper PTNOMS CI PTComment on above:Low back pain, unspecified back pain laterality, unspecified chronicity, unspecified whether sciatica present (Primary Dx)Start: 03-20-2025 End: 61-13-0613shjcsfcvfhXfnqswdd Ball DO Work Phone: [facility] Work Phone: Start: 03-20-2025 End: 79-34-6882Fffhezf encounter procedureBenjamin Ball DO Work Phone: [facility] Work Phone: Start: 03-14-2025 End: 89-03-3967Yvymgv flowsheetSammantha Harper PTNOMS CI PTStart: 03-14-2025 End: 71-81-1547Ckbptr flowsheetSammantha Harper PTNOMS CI PTStart: 03-14-2025 End: 14-13-0969qowrwfyragQloqwvnhq Harper PTNOMS CI PTComment on above:Low back pain, unspecified back pain laterality, unspecified chronicity, unspecified whether sciatica present (Primary Dx)Start: 03-12-2025 End: 81-29-4093qlsqdhrybhYvkljddg Ball DO Work Phone: [facility] Work Phone: Start: 03-12-2025 End: 14-82-4268Jppfoum encounter procedureBenjamin Ball DO Work Phone: [facility] Physician [facility] Work Phone: Start: 53-05-4637Ync-patient / Non-visitBenjamin Ball DO Work Phone: [facility] Physician [facility] Work Phone: Start: 02-28-2025 End: 89-30-1857Lbxskf flowsheetSammantha Harper PTNOMS CI PTStart: 02-28-2025 End: 27-74-0447Hcrizy flowsheetSammantha Harper PTNOMS CI PTStart: 02-28-2025 End: 03-72-6066ikexzevokfOojfrnfkw Harper PTNOMS CI PTComment on above:Low back pain, unspecified back pain laterality, unspecified chronicity, unspecified whether sciatica present (Primary Dx)Start: 02-26-2025 End: 91-95-6625oxmwhuewkjAtbimif R NILLFacility:GS BellevueStart: 02-26-2025 End: 72-99-4310iqtovzfjaoObicmpil Ball DO Work Phone: [facility] Work Phone: Start: 02-26-2025 End: 21-78-1267Nxmzgja encounter procedureBenjamin Ball DO Work Phone: [facility] Physician [facility] Work Phone: Start: 02-25-2025 End: 37-80-5893Tkhmtb flowsheetMelissa Kelbley PTANOMS CI PTStart: 02-25-2025 End: 85-69-7456Mxigjs flowsheetMelissa Kelbley PTANOMS CI PTStart: 02-25-2025 End: 35-12-8473xpmxpsriawJqyodqx Kelbley PTANOMS CI PTComment on above:Low back pain, unspecified back pain laterality, unspecified chronicity, unspecified whether sciatica present (Primary Dx)Start: 10-60-9027tcstnhfpkbOidyatv NILL Facility: [place]vueStart: 02-20-2025 End: 50-85-8250Hbmwoj flowsheetMelissa Kelbley PTANOMS CI PTStart: 02-20-2025 End: 18-58-2388Ihfqtn flowsheetMelissa Kelbley PTANOMS CI PTStart: 02-20-2025 End: 24-79-2563laqjimopviNexzlfx Kelbley PTANOMS CI PTComment on above:Low back pain, unspecified back pain laterality, unspecified chronicity, unspecified whether sciatica present (Primary Dx)Start: 21-16-2221Ygf-patient / Non-visit Robert Genna DO Work Phone: [facility] Physician [facility] Work Phone: Start: 02-14-2025 End: 54-15-7323kfsnnwgtmyIgnnogwr Ball DO Work Phone: [facility] Work Phone: Start: 02-14-2025 End: 16-19-3652Mbvlrcf encounter procedureBenmeagan Ball DO Work Phone: [facility] GroupHand [facility] Work Phone: Start: 02-13-2025 End: 24-86-1690slnanqvnlhDISSYJU LAWRENCENot AvailableStart: 02-07-2025 End: 31-55-3226Ctyarp flowsheetMelissa Domenicobley PTANOMS CI PTStart: 02-07-2025 End: 60-86-9937Toghar flowsheetMelissa Kelbley PTANOMS CI PTStart: 02-07-2025 End: 52-61-8029dgihdfdswdImwxqgg Kelbley PTANOMS CI PTComment on above:Low back pain, unspecified back pain laterality, unspecified chronicity, unspecified whether sciatica present (Primary Dx)Start: 02-04-2025 End: 68-81-6866cjxaqnalxfXWKFOBO KELBLEYNot AvailableStart: 01-28-2025 End: 66-85-7068Yonkphcef encounterSammantha Harper PTNOMS CI PTComment on above:Cx PT 01/28/25Start: 01-23-2025 End: 81-54-1383Fecatv flowsheetSammantha Harper PTNOMS CI PTStart: 01-23-2025 End: 90-01-5418Imeyto flowsheetSammantha Harper PTNOMS CI PTStart: 01-23-2025 End: 28-56-3714wiomybvpanHfaugalsn Harper PTNOMS CI PTComment on above:Low back pain, unspecified back pain laterality, unspecified chronicity, unspecified whether sciatica present (Primary Dx)Start: 01-21-2025 End: 96-26-3311xfnguupdfjBmjftelSonya Hagen PTANOMS CI PTComment on above:Low back pain, unspecified back pain laterality, unspecified chronicity, unspecified whether sciatica present (Primary Dx)Start: 01-21-2025 End: 32-12-0488Tubfpi aKthy Hagen PTANOMS CI PTStart: 01-21-2025 End: 89-44-5202Yhpone Kathy Hagen PTANOMS CI PTStart: 01-17-2025 End: 55-98-7083Bfbgtx Kathy Hagen PTANOMS CI PTStart: 01-17-2025 End: 16-59-3228Kvafzr Kathy Hagen PTANOMS CI PTStart: 01-17-2025 End: 73-43-8996hhgftgawyjZcwfkoySonya Hagen PTANOMS CI PTComment on above:Low back pain, unspecified back pain laterality, unspecified chronicity, unspecified whether sciatica present (Primary Dx)Start: 01-16-2025 End: 23-11-0343dexkyyqubdYtazihfp Ball DO Work Phone: [facility] Work Phone: Start: 01-16-2025 End: 48-91-7504Zmcfabh encounter procedureBenmeagan Ball DO Work Phone: [facility] Physician [facility] Work Phone: Start: 01-14-2025 End: 91-29-4858Oalkev flowsheetSammantha Harper PTNOMS CI PTStart: 01-14-2025 End: 23-76-1684Zemyvg flowsheetSammantha Harper PTNOMS CI PTStart: 01-14-2025 End: 40-02-2687bumpgqmrpfNscmxvvbm Harper PTNOMS CI PTComment on above:Low back pain, unspecified back pain laterality, unspecified chronicity, unspecified whether sciatica present (Primary Dx)Start: 01-04-2025 End: 39-45-6906ybsftngdteFutjyplu Ball DO Work Phone: [facility] Work Phone: Start: 01-04-2025 End: 72-23-6818Qjhkowf encounter procedureBenmeagan Ball DO Work Phone: [facility] Physician [facility] Work Phone: Start: 16-18-8228Zab-patient / Non-visitBenmeagan Ball DO Work Phone: [facility] Work Phone: Start: 12-26-2024 End: 38-21-6986Bffyjuiqx to same day surgery centerBenmeagan Ball DO Work Phone: [facility] Work Phone: Start: 12-26-2024 End: 83-39-7196prqfkidcdfIwjwccjq Ball DO Work Phone: [facility] Work Phone: Start: 12-24-2024 End: 47-23-0507enyzadqhikYkisgedx Ball DO Work Phone: [facility] Work Phone: Start: 12-24-2024 End: 88-34-0235Ybxcgil encounter procedureBenjamin Ball DO Work Phone: [facility]-Lab [facility] [place] Work Phone: Start: 12-12-2024 End: 97-96-1440sdwpahnbfeGcwixqwce [facility] Work Phone: Start: 12-12-2024 End: 53-11-9598Gdkjplw encounter procedureJoseline Physician Group-[facility] Work Phone: Start: 08-23-7916Nxs-patient / Non-visitJoseline Physician Group-[facility] Work Phone: Start: 12-10-2024 End: 49-48-0817wxsrggkwnsGtfjeemrtOur Lady of Mercy Hospital Work Phone: Start: 12-10-2024 End: 98-69-7493Zzhhrhq encounter procedureJoseline Physician Group-[facility] Work Phone: Start: 12-07-2024 End: 56-55-8578hbgwoacmuyWwtsdzjhvOur Lady of Mercy Hospital Work Phone: Start: 12-07-2024 End: 71-45-3622Lqynmla encounter procedureJoseline Physician Group-[facility] Work Phone: Start: 09-04-2024 End: 30-53-0103wrdvvrcznoMC Robert Rhodhiss Work Phone: [facility] Work Phone: Start: 09-04-2024 End: 13-72-7365Jfyiwzo encounter procedureDO Robert Vail Work Phone: [facility] Pain Management Work Phone: start: 08-28-2024 End: 40-22-5323rsfhjngbtaGM Robert Vail Work Phone: [facility] Work Phone: Start: 08-28-2024 End: 83-98-4684Bzjfclq encounter procedureDO Robert Vail Work Phone: [facility] Work Phone: Start: 95-50-8973Tgh-patient / Non-visitDO Robert Vail Work Phone: [facility] Work Phone: Start: 08-24-2024 End: 27-77-5791awdefbunklRR Robert Vail Work Phone: [facility] Work Phone: Start: 08-24-2024 End: 24-78-6328Jgwfktl encounter procedureDO Robert Vail Work Phone: [facility] Work Phone: Start: 11-69-7888Pxu-patient / Non-visitDO Robert Vail Work Phone: [facility] Work Phone: Start: 08-10-2024 End: 88-44-6057Dqpnkcltl to same day surgery centerDO Robert Vail Work Phone: [facility]ive [facility] Work Phone: Start: 08-10-2024 End: 89-15-8852atbwgfkrauYU Robert Vail Work Phone: [facility] Work Phone: Start: 08-09-2024 End: 16-34-6505Hkxvmfa encounter procedureDO Robert Vail Work Phone: [facility] [place] Work Phone: start: 08-09-2024 End: 69-49-5153sbmtasfvjkTW Robert Vail Work Phone: [facility] Work Phone: Start: 08-06-2024 End: 08-57-2223mdxdglfgfiZE Robert Vail Work Phone: [facility] Work Phone: Start: 08-06-2024 End: 68-73-0637Xjgvmsz encounter procedureDO Robert Vail Work Phone: [facility] Work Phone: Start: 07-31-2024 End: 10-02-0711abewefxmpaTK Robert Vail Work Phone: [facility] Work Phone: Start: 07-31-2024 End: 66-74-8710Fnioqgq encounter procedureDO Robert Vail Work Phone: [facility] Work Phone: Start: 06-15-2024 End: 46-59-0914Lsergiv encounter procedureDO Robert Vail Work Phone: [facility]-MRI [facility] [place] Work Phone: start: 06-15-2024 End: 64-92-1343mfqcrsjoatPB Robert Vail Work Phone: [facility] Work Phone: Start: 05-28-2024 End: 99-55-6626fvzvntxcyoBX Robert Vail Work Phone: [facility] Work Phone: Start: 05-28-2024 End: 25-58-5687Wmiljnk encounter procedureDO Robert Vail Work Phone: firju[facility]arl[facility] Work Phone: Start: 39-06-9417Rkh-patient / Non-visitDO Robert Vail Work Phone: firjuancarlos [facility] Work Phone: start: 05-10-2024 End: 68-74-1628ynhsnanfbtYO Robert Vail Work Phone: [facility] Work Phone: Start: 05-10-2024 End: 94-38-6571Fiihbhp encounter procedureDO Robert Vail Work Phone: [facility] Work Phone: Start: 00-40-0062Ygz-patient / Non-visitDO Robert Vail Work Phone: [facility] Work Phone: Start: 05-09-2024 End: 87-34-5170kqvbjorzvoIP Robert Vail Work Phone: [facility] Work Phone: Start: 05-09-2024 End: 72-07-4053Yefrfua encounter procedureDO Robert Vail Work Phone: [facility]-XRay [facility] [place] Work Phone: start: 05-07-2024 End: 39-37-3147Ztljxkb encounter procedureDO Robert Vail Work Phone: [facility]-Lab [facility] [place] Work Phone: start: 05-07-2024 End: 57-78-5530lbhyuimwkjRD Robert Vail Work Phone: [facility] Work Phone: Start: 04-30-2024 End: 53-25-0888yorfawpimeNurahreyw [facility] Work Phone: start: 04-30-2024 End: 48-85-5634Uqhjxvc encounter procedureJoseline Physician Group-[facility] Pain Management Work Phone: Start: 08-46-6963Rth-patient / Non-visitJoseline Physician Group-[facility] Work Phone: Start: 03-29-2024 End: 03-69-9844Gjgyjyg encounter procedureF[facility]e [facility] Work Phone: Start: 97-72-5345Uvm-patient / Non-visitFrye [facility] Work Phone: Start: 02-15-2024 End: 49-35-9691nyosporqneUL Robert Vail Work Phone: [facility] Work Phone: Start: 02-15-2024 End: 84-59-7199Klwpuby encounter procedureDO Robert Vail Work Phone: [facility] Work Phone: Start: 01-12-2024 End: 32-88-9844pzarbotjzrQO Robert Vail Work Phone: [facility] Work Phone: Start: 01-12-2024 End: 08-42-6774Bqogjpjb ReferredDO Robert Vail Work Phone: [facility]-Lab [facility] [place] Work Phone: Start: 12-29-2023 End: 48-53-7371xqbufficygSewfymmi Ball Other [employer] Other Start: 94-31-9061Cuwapquck encounterBenmeagan Vail Medical ClinicStart: 12-22-2023 End: 97-14-6165cvzstxrhbfVssxqbxw Ball Other [employer] Other Start: 49-98-9705Enusih outpatient visit 25 minutes Robert Cj [facility] ClinicStart: 12-09-2023 End: 52-49-1643qrzzxnxpctLrlwddiu Ball Other [employer] Other Start: 92-84-4322Oamjra outpatient visit 15 minutes Robert BallFPG [facility] ClinicStart: 18-17-3102Bqbivgj encounter procedure DO Robert Vail Work Phone: [facility]-Start: 11-11-2023 End: 83-47-0512pryedtkhemVkdvnxvd Ball Other [employer] Other Start: 49-74-3021Xavsnttam encounterBenjamin BallFPG [facility] ClinicStart: 11-10-2023 End: 87-70-7975ewqgziqrsbZgtsenvi Ball Other [facility] [employer] Other Start: 63-27-3760Pzyhracjp encounterBenjamin BallFPG [facility] ClinicStart: 11-04-2023 End: 81-70-2842julgaiqhxeLbgvlwiw Ball Other [facility] [employer] Other Start: 78-62-5327Zdveleylv encounterBenjamin BallFPG [facility] ClinicStart: 10-19-2023 End: 58-95-2087aerglsiuflFspazzpc Ball Other [employer] Other Start: 33-41-8112Txicgwlic encounterBenjamin BallFPG [facility] ClinicStart: 09-21-2023 End: 94-34-9952sermdblvawFjnrfbna Ball Other [employer] Other Start: 25-82-1330Uycckl outpatient visit 25 minutes Robert BallFPG [facility] ClinicStart: 09-08-2023 End: 45-09-0487qitemuvpkhSqenwbgt Ball Other [employer] Other Start: 52-20-5431Jnbxgsnvs encounterBenjamin BallFPG [facility] ClinicStart: 08-29-2023 End: 83-19-2075nmtwdsrdjlIamgoiwh Ball Other [employer] Other Start: 88-87-9487Kcowtsngk encounterBenjamin BallFPG [facility] ClinicStart: 08-16-2023 End: 46-96-4701ncsvyhzvdaUomicxsl Ball Other [employer] Other Start: 06-37-3668Xtpzzibeb encounterBenjamin BallFPG [facility] ClinicStart: 08-15-2023 End: 74-91-8682jcqvhwoqhwFpabloat Ball Other [employer] Other Start: 27-59-7012Kcpcxeujdxuu care manage srvc 14 day dischargeBenjamin BallFPG [facility] ClinicStart: 07-25-2023 End: 97-59-7918ogioyzzjxpIszkdcxd Ball Other [employer] Other Start: 84-48-1892Jryltjrzq encounterBenjamin BallFPG [facility] ClinicStart: 07-21-2023 End: 72-83-6419aoxktoaalwPqsewrrg Ball Other [employer] Other Start: 41-96-1299Rcwpiqiez encounterBenjamin BallFPG [facility] ClinicStart: 07-19-2023 End: 88-42-2209hpibeginmbBurahjwp Ball Other [employer] Other Start: 23-93-2297Tlhqirnmf encounterBenjamin BallFPG [facility] ClinicStart: 07-11-2023 End: 34-62-2612qagkuxlrvnTzzobgsk Ball Other [employer] Other Start: 97-58-4963Qvqjtm outpatient visit 25 minutes Robert BallFPG [facility] ClinicStart: 05-25-2023 End: 41-68-5338tanpzaatuwSdycndmy Ball Other [employer] Other Start: 08-41-5343Txsyjr outpatient visit 15 minutes Robert BallFPG [facility] ClinicStart: 04-26-2023 End: 17-66-1892xmtqtkdrkyLzrpcydv Ball Other [employer] Other Start: 14-89-0644Uowdrmeys encounterBenjamin BallFPG [facility] ClinicStart: 04-08-2023 End: 07-48-8664ggnscnfbhpFsqmdftq Ball Other [employer] Other Start: 55-11-0550Qpkbug outpatient visit 15 minutes Robert BallFPG [facility] ClinicStart: 04-07-2023 End: 73-53-3663skhzypotumNH ROBERT BALLFacility:S6Xwxkj: 03-23-2023 End: 14-54-0043nfbpoucqkaRtwifyik Ball Other [employer] Other Start: 13-60-5932Pamauw outpatient visit 15 minutes Robert BallFPG [facility] ClinicStart: 03-16-2023 End: 16-86-4551usgyncfznbHligpddf Ball Other [employer] Other Start: 20-15-0675Peuxocfvp encounterBenjamin BallFPG [facility] ClinicStart: 03-14-2023 End: 53-22-9290afavytuxlgVH ROBERT VAILEvans [employer] Other Start: 10-01-4760Mjkvcpvba encounterBenjamin BallFPG [facility] Medical ClinicStart: 03-10-2023 End: 91-46-7758rjryebeczdSgusxxov Ball Other [employer] Other Start: 24-92-5108Btsjvs outpatient visit 15 minutes [facility] ClinicStart: 35-48-2886Qsowuttfq encounterBenjademetria CrespoG [facility] ClinicStart: 03-02-2023 End: 86-78-6357uynpkbsvzeSxfijesf Ball Other [employer] Other Start: 43-10-2672Uemfaeb encounter procedureBenmeagan CrespoG [facility] ClinicStart: 02-14-2023 End: 90-69-1117aewtfymbatYstrktba Ball Other [employer] Other Start: 93-21-5346Rbtzef outpatient visit 25 minutes Michaelrancho DunawayFPG Pain ManagementStart: 12-09-8228Chmarkzll encounterBenmeagan [facility] Medical ClinicStart: 02-03-2023(PROC) PROCEDURESherif [facility] CenterStart: 02-03-2023 End: 97-66-8182aixbyvezcwHnlfof Emelyn Other [employer] Other Start: 01-27-2023 End: 91-91-2639vabqbiitsnDwezot Emelyn Other [employer] Other Start: 66-18-8908Sppyhs-up encounterSherif ZakyFPG Pain ManagementStart: 01-19-2023 End: 02-46-7018oakpxvjywtSrhtmdan Ball Other [employer] Other Start: 37-66-3394Ibafqbdhy encounterBenmeagan [facility]ail Medical ClinicStart: 01-04-2023(PROC) PROCEDURESherif [facility]akyH[facility] CenterStart: 01-04-2023 End: 20-24-5974atdkskluwcHnwgun Emelyn Other [employer] Other Start: 12-31-2022 End: 51-73-2384rivcqessurNdtgps Zaky Other [employer] Other Start: 02-32-4057Jnqebq outpatient visit 25 minutes Michael EmelynFPG Pain ManagementStart: 12-27-2022 End: 32-06-3894mktshzndzzUnamgj Braun Other [facility] [employer] Other Start: 27-77-4142Rllauc outpatient visit 15 minutes Ivon Ruby [facility] ClinicStart: 12-02-2022 End: 35-25-9262ndoofdnynsMeqbp Velarde Other [facility] [employer] Other Start: 66-05-6926Wjkspq outpatient visit 15 minutes Ursula HartFPG Pain ManagementStart: 11-18-2022(PROC) PROCEDURESherif GabrielleneErie [facility] Surgery CenterStart: 11-18-2022 End: 01-59-5111heydepkbtlEwrsvb Emelyn Other [facility] [employer] Other Start: 94-08-2539Ezv-procedure evaluation check Robert Vail Other [facility] [employer] Other Start: 11-02-2022 End: 43-81-1034pnnettheywXgqxyu Emelyn Other [facility] [employer] Other Start: 44-00-6622Whospw outpatient visit 25 minutes Michael EmelynFPG Pain ManagementStart: 10-26-2022(Procedure) ShortSherif ZakyErie [facility]rigan [facility] Surgery CenterStart: 10-26-2022 End: 44-93-1565ktzasbqtfdOobdow Emelyn Other noPley [employer] Other Start: 09-11-2022 End: 93-85-5679mssrxeznbxQlvub Keller Other [employer] Other Start: 45-70-3417Kmiefc outpatient visit 25 minutes Kaitlynn LawFPAnya Urgent Care ClydeStart: 09-10-2022 End: 13-70-8279qufucdtrizGgtylj Emelyn Other noPley [employer] Other Start: 48-19-4041Jeelvj outpatient visit 15 minutes Michael DunawayFPG Pain ManagementStart: 08-24-2022(Procedure) ShortSherif ZarudyErie Shores Surgery CenterStart: 08-24-2022 End: 83-72-9013efxvwqeibuEcdgor Emelyn Other noPley [employer] Other Start: 08-03-2022(Procedure) ShortSherif ZarudyErie Shores Surgery CenterStart: 08-03-2022 End: 62-54-8466xxvhxqcokrOkqwmr Emelyn Other [employer] Other Start: 07-29-2022 End: 87-67-3547bbzquhwukdIjikfn Emelyn Other noPley [employer] Other Start: 87-16-8132Wsljdl outpatient visit 15 minutes Michael DunawayFPG Pain ManagementStart: 01-91-4129kxcgjssdboVP BENJAMIN BALL Facility:U8Xmbsu: 07-22-2022(Procedure) ShortSherif ZarudyErie Shores Surgery CenterStart: 07-22-2022 End: 19-77-5860glqhqlnhjtFofppv Emelyn Other [employer] Other Start: 07-06-2022 End: 14-40-1881khylqggtzlLK BENJAMIN BALLFacility:C6Ptqgn: 07-02-2022 End: 95-19-5717xetkkrsndxRxxfvd Emelyn Other nort [employer] Other Start: 45-80-2764Mdnicv outpatient visit 25 minutes Michael DunawayFPG Pain ManagementStart: 06-23-2022(Procedure) ShortMichael Dunaway [facility] OutPtStart: 06-23-2022 End: 71-42-8958cijdezumvlTroglu Emelyn Other noPley [employer] Other Start: 06-23-2022 End: 55-80-1268Zsbyevxmq to same day surgery centerDO Robert Vail Work Phone: [facility] HealthStart: 06-18-2022 End: 13-86-0960szbtlupritPgpemo Emelyn Other noPley [employer] Other Start: 73-35-3646Iojnll outpatient visit 25 minutes Michael DunawayFPG Pain ManagementStart: 05-05-2022 End: 44-94-3892Hhhfxaa encounter procedureDO Robert Vail Work Phone: [facility]imaDigestive HealthStart: 04-30-2022 End: 76-63-0956adhiscuvndBR ROBERT VAILFacility:V5Grbrv: 04-13-2022 End: 03-97-6040hyrcboorztOC ROBERT Treviñocility:J6Rzbvz: 04-01-2022 End: 50-13-3739ntvquvhgvaNfewm Hykes Other noPley [employer] Other Start: 07-44-9456Ovslgdclk encounterDavid HykesFPG GastroenterologyStart: 03-19-2022 End: 21-54-9301dhqfvplipbBhvmhb Emelyn Other [employer] Other Start: 61-96-7046Eckzzzwfd encounterSherif GabriellekyFPG Pain ManagementStart: 03-11-2022 End: 32-86-3324bkygctkecrGizoxl Zaky Other [employer] Other Start: 45-61-8376Fbikbv outpatient visit 25 minutes Michael Kenny Pain ManagementStart: 03-04-2022 End: 99-14-7917Kbvdmkr encounter procedureMichael R NILL 884-9933Azuxgj-VzzdtTr[facility] [place] Start: 02-25-2022(Procedure) ShortMichael [facility] Hospitaltart: 02-25-2022 End: 36-35-9053upfoymsbisIsdrre Zaky Other [employer] Other Start: 02-18-2022 End: 50-02-2239ionwekebmmWxflwg Zaky Other [employer] Other Start: 60-48-5340Cyfzmv outpatient new 45 minutes Michael Kenny Pain ManagementStart: 01-28-2022 End: 23-47-4767ekhjzszvqxSgdk Batista Other noPley [employer] Other start: 17-78-7916Lkaurw outpatient new [address] [facility] NeurosurgeryStart: 00-30-2249Xtfib health examination Robert Genna Other noPley [employer] Other Start: 11-07-2021 End: 51-17-5739orrrsfcvykZapicu Dymond Other [employer] Other Start: 19-72-5997Kzvgfl outpatient new 20 minutes Quita SimmonsFPG [facility] Procedures DateProcedureProcedure DetailPerforming ClinicianStart: 96-08-3934Pjoel anesthetic sacral epidural blockBenmeagan Vail DO Work Phone: Start: 42-24-7886Slwgs anesthetic sacral epidural blockDO Robert Vail Work Phone: Start: 62-47-3345HZ lumbar spine wo conDO Robert [employer] Work Phone: Start: 87-49-2659Easgva X-rayDO Robert [employer] Work Phone: Start: 93-65-9068Zefysnsxktv of sacrococcygeal spineDO Robert [employer] Work Phone: Start: 95-98-5308E-ray of lumbar spine, four viewsDO Robert Vail Work Phone: Start: 54-10-9099Yvydbxv microbial cultureDO Robert [employer] Work Phone: Start: 67-71-6652Zwqxnxdaw of local anesthetic into sacroiliac jointDO Robert [employer] Work Phone: Start: 24-61-9544Edzhmtw endoscopyDO Robert Vail Work Phone: Start: 17-53-8251Zkrnwfpvb for osteoporosisBenmeagan Vail Other Start: 92-06-7974Ezigpdsd extraction and insertion of intraocular lensMichael NILL Start: 96-74-3413Bodogtqc extraction and insertion of intraocular lensMichael NILL Comment on above:right eyeStart: 65-72-5836Tfnxzspam mammographyBenmeagan Vail Other Start: 17-85-9941J9-L5 lumbar laminectomy, foraminotomy with facetectomy with decompression L5 nerve roots bilaterally 2 Taye NILL Comment on above:see operative report for further detailsStart: 95-35-0520Oxk-surgery evaluationBebarbara Vail Other Start: 04-41-6593Pyoqbhgwbhnq cardiovascular examinationBebarbara Vail Other start: 59-20-6812Hlzmzgrrchhx pulmonary examination Robert Vail Other Start: 43-80-5338XtymqqirinkCzjgrli NILL Start: 88-76-0339UtopgoztrdvAdzzytv NILL Start: 98-07-8931WsrnfhvyerBdvjnml NILL Arthroplasty of kneeMichael NILL Comment on above:leftArthroplasty of kneeMichael NILL Comment on above:rightCholecystectomyMichael NILL ChondroplastyMichael NILL CystoscopyMichael NILL Depression screeningRobert Vail Other EsophagogastroduodenoscopyMichael NILL insertion of jaspreet filterMichael NILL Lap sigmoid resectionMichael NILL orif right femurMichael NILL Repair of musculotendinous cuff of shoulderMichael NILL right knee arthroscopyMichael NILL Screening for malignant neoplasm of breastRobert Vail Other Plan of Treatment DateCare ActivityDetailAuthorStart: 04-07-2026 End: 13-16-2526Sizonep encounter cuplqtdhw75/11/2026 11:15 AM EDT Office Visit [facility] [address] [facility] [id number] Jr. Fernando Silva C, DO [address] [facility] [address] [place] [address] [facility] ORTHOPAEDICSStart: 05-09-2025 End: 07-50-5659kimflgylms84/12/2025 10:30 AM EDT Treatment [facility] [address] [facility] [address] [place] [address] Jacqui Harper PTNOMS CI PTStart: 05-07-2025 End: 91-66-6032cthhduwjbq31/10/2025 12:30 PM EDT Treatment [facility] [address] [facility] [address] [place] [address] Gabriel Hagen PTANOMS CI PTStart: 05-03-2025 End: 72-17-1815pbnexdbdhhOHCR CI PTStart: 04-30-2025 End: 70-13-2472luvgurevojPGLL CI PTStart: 04-26-2025 End: 13-89-1501icjtzfzzcq70/30/2025 9:00 AM EDT Treatment [facility] [address] [facility] [address] [place] [address] Gabriel Hagen PTANOMS CI PTStart: 04-23-2025 End: 68-14-0517lktzranmid02/27/2025 4:30 PM EDT Treatment [facility] [address] [facility] [address] [place] [address] Gabriel Hagen PTA Low back pain, unspecified back pain laterality, unspecified chronicity, unspecified whether sciatica present (Primary Dx)[facility] CI PTComment on above:Low back pain, unspecified back pain laterality, unspecified chronicity, unspecified whether sciatica present (Primary Dx)Start: 04-17-2025 End: 51-59-4372iemjjfyogh77/21/2025 11:00 AM EDT Treatment [facility] [address] [facility] [address] [place] [address] Jacqui Harper PTNOMS CI PTStart: 04-15-2025 End: 31-21-0008dpfvhahuza21/19/2025 9:30 AM EDT Treatment [facility] [address] [facility] [address] [place] [address] Jacqui Harper PTNOMS CI PTStart: 04-11-2025 End: 90-17-5490evhwwwjkgw87/15/2025 9:00 AM EDT Treatment [facility] [address] [facility] [address] [place] [address] Jacqui Harper PTNOMS CI PTStart: 04-08-2025 End: 26-41-3647lqraktrrmr86/12/2025 1:00 PM EDT Treatment [facility] [address] [facility] [address] [place] [address] Gabriel Hagen PTANOMS CI PTStart: 04-01-2025 End: 07-70-2883rkgngxcbnl93/05/2025 9:30 AM EDT Treatment [facility] [address] [facility] [address] [place] [address] Jacqui Harper, PTNOMS CI PTStart: 03-21-2025 End: 27-69-7384qbmhdcvfyv67/24/2025 8:30 AM EDT Treatment [facility] [address] [facility] [address] [place] [address] Jacqui Harper PTNOMS CI PTStart: 03-14-2025 End: 46-37-1868yesktxnlqzZWCP CI PTComment on above:ArrivedStart: 02-28-2025 End: 94-63-2393uzjyahgpfqZMBJ CI PTStart: 02-25-2025 End: 04-15-6370gugelyifov53/31/2025 12:00 PM EDT Treatment [facility] [address] [facility] [address] [place] [address] Tierney Paz, [place] [facility] CI PTStart: 02-20-2025 End: 23-55-4254wqmwzmslhw06/26/2025 1:00 PM EDT Treatment [facility] [address] [facility] [address] [place] [address] Tierney Paz, DRAWER WAXER ArrivedNOMS CI PTComment on above:ArrivedStart: 02-13-2025 End: 75-23-1430ccvdassowz12/19/2025 1:00 PM EDT Treatment [facility] [address] [facility] [address] [place] [address] Gabriel Hagen PTANOMS CI PTStart: 02-11-2025 End: 11-94-3986xcdrnfmaaw31/17/2025 12:30 PM EDT Treatment [facility] [address] [facility] [address] [place] [address] Amparo Giron PTANOMS CI PTStart: 01-31-2025 End: 36-65-1601mpygwaevoz42/06/2025 12:00 PM EST Treatment [facility] [address] [facility] [address] [place] [address] Gabriel Hagen PTANOMS CI PTStart: 01-28-2025 End: 80-06-5671llavjclbem56/03/2025 12:00 PM EST Treatment [facility] [address] [facility] [address] [place] [address] Jacqui Harper PTNOMS CI PTStart: 01-23-2025 End: 23-41-3922mkwanowdwtYMQL CI PTComment on above:Low back pain, unspecified back pain laterality, unspecified chronicity, unspecified whether sciatica present (Primary Dx)Start: 01-21-2025 End: 08-80-8141zsipfzrstlUJMI CI PTComment on above:ArrivedStart: 01-17-2025 End: 18-90-5614lndugpxqowVMBE CI PTComment on above:ArrivedStart: 01-14-2025 End: 09-33-5973ojfmaasjvg58/17/2025 11:00 AM EST Evaluation [facility] [address] [facility] [address] [place] [address] Jacqui Harper PT ArrivedNOMS CI PTComment on above:ArrivedStart: 05-39-3920XiqfvxltpParkview Healthtart: 22-07-8942XjknnqitbParkview Healthtart: 70-31-1828Mhsitgqmdpn Wound CultureSuperficial Wound CultureParkview Healthtart: 41-46-9919AlfrtwiajSelect [facility]tr Work Phone: Start: 62-56-9416RnfrthjorSelect Medical Specialty Hospital [facility] Ctr Work Phone: Start: 07-40-6341Yeuewbyddvgg Vaccine: 65+ Years (2 of 2 - PCV)Pneumococcal Vaccine: 65+ Years (2 of 2 - PCV)[facility] HealthcareaPTT in Platelet poor plasma by Coagulation assayKettering Health [facility] Comprehensive metabolic 1999 panel - Serum or PlasmaKettering Health MiamisburgComprehensive metabolic 1999 panel - Serum or PlasmaKettering Health MiamisburgMicroalbumin [Mass/volume] in UrineKettering Health MiamisburgMR Lumbar spine WO contrastKettering Health MiamisburgPatient EducationSelect Medical Specialty [facility] Ctr Work Phone: Patient referralSelect Medical Specialty Hospital [facility] Ctr Work Phone: XR Lumbar spine 4 [facility] Pelvis 1 or 2 [facility] Sacrum and Coccyx GE 2 [facility] Immunizations Immunization DateImmunizationNotesCare CtcrcoywWjgvnpwe95-58-1612ruxnuhxyu, high dose seasonal, preservative-freeBenjamin Ball DO Work Phone: [facility]09-09-2024influenza, high dose seasonal, preservative-freeDO Robert Ball Work Phone: [facility]09-18-2023influenza, high dose seasonal, preservative-freeBenjamin Ball Other [employer] Other [id number] virus vaccine, unspecified formulationDO Robert Vail Work Phone: [facility]11-16-2022Influenza vaccine, quadrivalent, adjuvantedDO Robert Vail Work Phone: [facility]11-16-2022influenza virus vaccine, split virus (incl. purified surface antigen)Robert Vail Other [employer] Other [id number] virus vaccine, unspecified formulationDO Robert Vail Work Phone: [facility]11-11-2022influenza virus vaccine, unspecified formulationDO Robert Vail Work Phone: [facility]11-11-2022influenza, high dose seasonal, preservative-freeBenmeagan Vail Other [employer] Other [id number]-04 Vaccine Pfizer - Documentation Purposes OnlyBenmeagan Vail Other [facility]10-06-2021influenza virus vaccine, split virus (incl. purified surface antigen)Robert Vail Other [employer] Other [id number] virus vaccine, unspecified formulationDO Robert Vail Work Phone: [facility]03-17-2021COVID-19 Vaccine Pfizer - Documentation Purposes OnlyBenjamin Genna Other [facility]02-24-2021COVID-19 Vaccine Pfizer - Documentation Purposes OnlyBenjamin Genna Other [facility]09-28-2020influenza virus vaccine, split virus (incl. purified surface antigen)Robert Vail Other [employer] Other [id number] virus vaccine, unspecified formulationDO Robert Vail Work Phone: [facility]10-03-2019influenza virus vaccine, split virus (incl. purified surface antigen)Robert Vail Other [facility] [employer] Other [id number] virus vaccine, unspecified formulationDO Robert Vail Work Phone: [facility]11-14-2018influenza, injectable, quadrivalent, preservative freeDO Robert Vail Work Phone: [facility]10-22-2018influenza virus vaccine, split virus (incl. purified surface antigen)Robert Vail Other [facility] [employer] Other [id number] virus vaccine, unspecified formulationDO Robert Vail Work Phone: [facility]10-22-2018Seasonal trivalent influenza vaccine, adjuvanted, preservative freeDO Robert Vail Work Phone: [facility]09-20-2017influenza virus vaccine, split virus (incl. purified surface antigen)Robert Vail Other [employer] Other 09678984-81-1036lmsdzvkve virus vaccine, unspecified formulationDO Robert Vail Work Phone: [facility]09-20-2017influenza, high dose seasonal, preservative-freeDO Robert Vail Work Phone: [facility]09-01-2017 pneumococcal polysaccharide vaccine, 23 valentBenjocedemetria Vail Other [facility]03-20-2017influenza virus vaccine, split virus (incl. purified surface antigen)Robert Vail Other [employer] Other [id number] virus vaccine, unspecified formulationDO Robert Vail Work Phone: [facility]11-10-2015 pneumococcal conjugate vaccine, 13 valentBebarbara Genna Other [facility]09-22-2015influenza virus vaccine, split virus (incl. purified surface antigen)Robert Vail Other [employer] Other [id number] virus vaccine, unspecified formulationDO Robert Vail Work Phone: [facility]10-23-2014tetanus and diphtheria toxoids, adsorbed, preservative free, for adult use (5 Lf of tetanus toxoid and 2 Lf of diphtheria toxoid)Robert Vail Other [facility]09-20-2013tetanus and diphtheria toxoids, adsorbed, preservative free, for adult use (5 Lf of tetanus toxoid and 2 Lf of diphtheria toxoid)Robert Vail Other [facility]09-05-2012tetanus and diphtheria toxoids, adsorbed, preservative free, for adult use (5 Lf of tetanus toxoid and 2 Lf of diphtheria toxoid)Robert Vail Other [facility]07-08-2011zoster vaccine, liveDO Robert Vail Work Phone: [facility]08-06-2009 pneumococcal polysaccharide vaccine, 23 valentBenmeagan Genna Other [facility] Payers DatePayer CategoryPayerPolicy [id number]-hur [id number] Health Insurance [id number] 2007MedicareMEDICARE Member Subscriber Plan / Payer (Effective 2006-Present) Name: Sandra Tavarez Member ID: [id number] Relation to Subscriber: Self Name: Sandra Tavarez Subscriber ID: [id number] Payer ID: STATE Group ID: Not on file Type: Medicare Address: [address] [id number] [id number] [id number] 2.16840.7.11744[id number] 2.840.1.421800.3.57[id number] 2.16840.1.851010.3.57[id number] 2.16840.1.154187.3.57[id number] 2.16840.1.847125.3.57[id number] 2.16840.1.851301.3.57[id number] 2.16840.1.567422.3.57[id number] 2.16840.1.285792.3.57[id number] 2.16840.1.388975.3.579.2.[id number] 2.16.840.1.205991.3.57[id number] 2.16.840.1.521055.3.57[id number] 2.16.840.1.139534.3.57[id number] 2.16.840.1.571262.3.579.2.148999-41-4758Dfavamw1215975 2.16.840.1.770862.3.579.2.722612-90-2238Oitaywi3446986 2.16.840.1.639553.3.579.2.584089-16-9541Zuzuzec4127816 2.16.840.1.510480.3.579.2.677023-60-6345Grthgzi1888767 2.16.840.1.514884.3.57[id number] 2.16.840.1.858515.3.579.2.240659-36-4814Pwlcfym3542647 2.16.840.1.190795.3.579.2.630414-00-9894Avxymsk5045625 2.16.840.1.915833.3.579.2.478308-21-8818Rfmxgnj6642675 2.16.840.1.545826.3.579.2.724195-77-9091Xsbnnak4846513 2.16.840.1.506507.3.579.2.443800-66-2388Gfjmfnv4933263 2.16.840.1.507206.3.579.2.736221-95-7204Jivlldr3042415 2.16.840.1.033121.3.579.2.919198-71-0111Trvxtmc9649397 2..840.1.422092.3.579.2.624766-22-9284Kjcjjaw1314917 2..840.1.949228.3.579.2.780608-48-7935Kzzuzmu1291168 2.840.1.701831.3.579.2.523849-93-4590Kieqkar7018293 2.840.1.354635.3.579.2.096655-99-5616Ptncfim5011828 2..1.297392.3.579.2.943344-95-7976Pzxevku8956677 2.840.1.206597.3.579.2.514899-72-1661Uqqgxoq6388262 2.0.1.847566.3.579.2.331063-72-3914Fwzmjmo6148943 2..1.197841.3.579.2.587371-46-1066Tcqbnys1232025 2.840.1.177379.3.579.2.2301Dypouse14797196 2.840.1.459885.3.579.2.531 Hebgxgc27270205 2.840.1.736648.3.579.2.394Tzwuzwq04069258 2.840.1.237587.3.579.2.239Lbswakn71302684 2.840.1.310981.3.579.2.531 Nufgonb65754719 2.840.1.343455.3.579.2.197Zytqjsc55371795 2.16840.1.192356.3.579.2.506Jledigx00756392 2.840.1.108860.3.579.2.531 [id number] 2.16.840.1.276921.3.579.2.531 Social History DateTypeDetailFacilityStart: 03-04-2022 End: 42-02-5119Nsjrsvh smoking statusEx-smoker (finding)[facility] [employer] Other Tobacco smoking statusNeverTrinity Health [facility] [place] Start: 31-40-4164Ohu [facility] [employer] Other Start: 03-24-2022 End: 21-10-8464Geojgqh smoking status NHISNever smoked tobacco (finding) [facility]: 10-97-1574Sud [facility]: 12-07-2024 End: 92-35-6484DncNejfmf (finding)[facility]burgHistory of tobacco useCurrent smokerNOMS HealthcareHistory of tobacco useCigarette Smoker [facility] HealthcareStart: 89-29-2793Kjwlhbz use and exposureSmokeless tobacco non-userNOMS HealthcareStart: 84-56-4013Fwxnbqrqb beverage intakeEx-drinker (finding)[facility] HealthcareStart: 83-10-4279Geftpqi of Social functionNOMS HealthcareStart: 64-02-4251Nhd assigned at birthNot on [facility] Medical Equipment Procedure CodeEquipment CodeEquipment Original TextEquipment IdentifierDates Capsule endoscopy, for patency of lumen evaluationVideo capsule endoscopy system ()[id number] FDAStart: 05-05-2022 Goals DatePatient GoalDesired Activity/State Clinical Notes 11-07-2021 to 05-16-2025 Note Date & WywqQvocMhguswos97-22-6629 Evaluation note* Diagnosis Onset Date Resolution Status Admit Date Chronic venous insufficiency acuteJune 2024 11:39amNoninfected skin tear of right lower extremityacute May 16, 2025 11:39amCellulitisacuteJuly 2024 11:24amSkin tearacuteJuly 2024 11:24amCellulitisacuteJuly 2024 1:46pmChronic venous insufficiencyacuteJuly 2024 1:46pmSkin tearacuteJuly 2024 1:46pm AnemiaacuteSeptember 2024 10:31amCellulitisacuteSeptember 2024 10:31amChronic venous insufficiencyacuteSeptember 2024 10:31amGeneralized seizure disorderacuteSeptember 2024 10:31amHypercholesteremiaacute August 12, 2025 10:31amHypertensionacuteSeptember 2024 10:31amOSA (obstructive sleep apnea)acuteSeptember 2024 10:31amSkin tearacute August 12, 2025 10:31amThrombophiliaacuteSeptember 2024 10:31amType 2 diabetes mellitus with hyperglycemiaacuteSept2024 10:31am [facility] Work Phone: 1(687) 582-436906-12-2025 History of Present illness Narrative* Jacqui Harper, PT - 05/09/2025 10:30 AM EDT Images [...] instructed in home exercise program. - met Snf Goals: To be met in 10 weeks [...] - met Discharge PT documented in this encounterOzarks [facility] [id number] History of Present illness Narrative* Jacqui Harper, PT - 05/03/2025 9:00 AM EDT Images [...] instructed in home exercise program. - met Dry End Operator Goals: To be met in 10 weeks [...] Please sign below. Date: documented in this encounterOzarks Medical [id number] History of Present illness Narrative* Jacqui Harper, [...] worse. Will see again this afternoon. Pain: 6/10 Objective: PT Evaluation (01/14/2025) LUMBAR [...] instructed in home exercise program. - met Snf Goals: To be met in 10 weeks [...] Please sign below. Date: documented in this encounterOzarks Medical [id number] History of Present illness Narrative* Jacqui Harper, [...] instructed in home exercise program. - met Snf Goals: To be met in 10 weeks [...] Please sign below. Date: documented in this encounterOzarks Medical [id number] History of Present illness Narrative* Jacqui Harper PT - 04/01/2025 10:00 AM EDT Images [...] instructed in home exercise program. - met Dry End Operator Goals: To be met in 10 weeks [...] Please sign below. Date: documented in this encounterOzarks Medical [id number] History of Present illness Narrative* Jacqui Harper [...] instructed in home exercise program. - met Dry End Operator Goals: To be met in 10 weeks [...] Please sign below. Date: documented in this [facility]04-23-2025 Evaluation note* Diagnosis Onset Date Resolution Status Admit Date Lumbosacral spondylosis acuteApril 2024 1:27pmPost laminectomy syndromeacuteApril 2024 1:27pmSacroiliitisacuteApril 2024 1:27pmChronic paindeletedApril 2024 1:27pmEncounter for monitoring Coumadin therapydeletedApril 2024 1:27pmAnemiaacuteMay 2024 10:24amGeneralized seizure disorderacuteMay 2024 10:24amHypercholesteremiaacuteMay 2024 10:24amHypertensionacute May 2024 10:24amMammogram declinedacuteMay 2024 10:24amOSA (obstructive sleep apnea)acuteMay 2024 10:24amThrombophiliaacuteMay 2024 10:24amType 2 diabetes mellitus with hyperglycemiaacuteMay 2024 10:24amMedicare annual wellness visit, subsequentnoneactiveMay 2024 10:24amLumbosacral spondylosisacuteMay 2024 1:48pmPost laminectomy syndromeacuteMay 2024 1:48pmSacroiliitisacuteMay 2024 1:48pmChronic paindeletedMay 2024 1:48pmLumbosacral spondylosisacuteJune 2024 11:46amOther chronic painacuteJune 2024 11:46amSacroiliitisacuteJune 2024 11:46amChronic venous insufficiencyacuteJune 2024 1:20pmNoninfected skin tear of right lower extremityacuteJune 2024 1:20pmChronic venous insufficiencyacuteJune 2024 11:39amNoninfected skin tear of right lower extremityacuteJune 2024 11:39amCellulitisacuteJuly 2024 11:24amSkin tearacuteJuly 2024 11:24am [facility] Work Phone: 1(443) 322-415004-23-2025 Evaluation note* Diagnosis Onset Date Resolution Status Admit Date Lumbosacral spondylosis acuteApril 2024 1:27pmPost laminectomy syndromeacuteApril 2024 1:27pmSacroiliitisacuteApril 2024 1:27pmChronic paindeletedApril 2024 1:27pmEncounter for monitoring Coumadin therapydeletedApril 2024 1:27pmAnemiaacuteMay 2024 10:24amGeneralized seizure disorderacuteMay 2024 10:24amHypercholesteremiaacuteMay 2024 10:24amHypertensionacute May 2024 10:24amMammogram declinedacuteMay 2024 10:24amOSA (obstructive sleep apnea)acuteMay 2024 10:24amThrombophiliaacuteMay 2024 10:24amType 2 diabetes mellitus with hyperglycemiaacuteMay 2024 10:24amMedicare annual wellness visit, subsequentnoneactiveMay 2024 10:24amLumbosacral spondylosisacuteMay 2024 1:48pmPost laminectomy syndromeacuteMay 2024 1:48pmSacroiliitisacuteMay 2024 1:48pmChronic paindeletedMay 2024 1:48pmLumbosacral spondylosisacuteJune 2024 11:46amOther chronic painacuteJune 2024 11:46amSacroiliitisacuteJune 2024 11:46amChronic venous insufficiencyacuteJune 2024 1:20pmNoninfected skin tear of right lower extremityacuteJune 2024 1:20pmChronic venous insufficiencyacuteJune 2024 11:39amNoninfected skin tear of right lower extremityacuteJune 2024 11:39amCellulitisacuteJuly 2024 11:24amSkin tearacuteJuly 2024 11:24amCellulitisacuteJuly 2024 1:46pmChronic venous insufficiencyacuteJuly 2024 1:46pmSkin tearacuteJuly 2024 1:46pm [facility] Work Phone: 1(128) 922-187804-17-2025 History of Present illness Narrative* Jacqui Leroy, PT - 03/14/2025 1:30 PM EDT Physical [...] instructed in home exercise program. - met Snf Goals: To be met in 10 weeks [...] Please sign below. Date: documented in this encounterOzarks Medical [id number] History of Present illness Narrative* Jacqui Harper, [...] instructed in home exercise program. - met Snf Goals: To be met in 10 weeks [...] Please sign below. Date: documented in this encounterOzarks Medical [id number] NoteGeneral Surgery Office/Clinic Note Chief Complaint consultation [...] require lift technique; patient requests referral to [facility]; call with problems/questions. Ordered: [facility] Internal Ambulatory Referral Follow-up No qualifying data [...] Sister. Hypertension: Father, Siste (more content not included)...[facility]acon[facility] HospitalComment on above:Result Comment: Electronically Signed By: GEORGE JENNINGS, Taye Ellington\Date and Time Signed: 02/26/25 13:52 [id number] Evaluation note * Diagnosis Onset Date Resolution Status Admit Date Lumbosacral spondylosis acuteApril 2024 10:33amPost laminectomy syndromeacuteApril 2024 10:33amSacroiliitisacuteApril 2024 10:33amChronic paindeletedApril 2024 10:33amEncounter for monitoring Coumadin therapydeletedApril 2024 10:33amLumbosacral spondylosisacuteApril 2024 1:27pmPost laminectomy syndromeacuteApril 2024 1:27pmSacroiliitisacuteApril 2024 1:27pm Chronic paindeletedApril 2024 1:27pmEncounter for monitoring Coumadin therapydeletedApril 2024 1:27pmAnemiaacuteMay 2024 10:24am Generalized seizure disorderacuteMay 2024 10:24amHypercholesteremiaacute April 09, 2025 10:24amHypertensionacuteMay 2024 10:24amMammogram declined acuteMay 2024 10:24amOSA (obstructive sleep apnea)acuteMay 2024 10:24amThrombophiliaacuteMay 2024 10:24amType 2 diabetes mellitus with hyperglycemiaacuteMay 2024 10:24amMedicare annual wellness visit, subsequentnoneactiveMay 2024 10:24amLumbosacral spondylosisacuteMay 2024 1:48pmPost laminectomy syndromeacuteMay 2024 1:48pmSacroiliitisacute April 15, 2025 1:48pmChronic paindeletedMay 2024 1:48pmLumbosacral spondylosisacuteJune 2024 11:46amOther chronic painacuteJune 2024 11:46amSacroiliitisacuteJune 2024 11:46am [facility] Work Phone: 1(510) 248-800103-03-2025 Telephone encounter Note* Telephone Encounter - Jenna Servin - 01/28/2025 8:25 AM EST She called noting up all last night not feeling well and no better this morning; she cx her 12:00 PT. I reminded and she said she will try to make her 3/6 PT; if unable she will contact jennifer. [facility] [id number] Miscellaneous Notes* Telephone Encounter - Jenna Servin - 01/28/2025 8:25 AM EST She called noting up all last night not feeling well and no better this morning; she cx her 12:00 PT. I reminded and she said she will try to make her 3/6 PT; if unable she will contact jennifer. documented in this encounterOzarks Medical [id number] History of Present illness Narrative* Jacqui Harper, [...] Left low back is hurting more today. [place] good after last session but pain returned. [...] as needed. Manual lumbar distraction supine with djiboutian ball. Therapeutic Exercise: (31 minutes) Strength, Endurance, [...] to be instructed in home exercise program. Snf Goals: To be met in 10 weeks [...] Please sign below. Date: documented in this encounterWilliam [place] [id number] Evaluation note* Diagnosis Onset Date Resolution Status Admit Date Lumbosacral spondylosis acuteFebruary 2024 12:55pmPost laminectomy syndromeacuteFebruary 2024 12:55pmSacroiliitisacuteFebruary 2024 12:55pmChronic paindeleted January 16, 2025 12:55pmEncounter for monitoring Coumadin therapydeleted January 16, 2025 12:55pmLumbosacral spondylosisacuteApril 2024 10:33am Post laminectomy syndromeacuteApril 2024 10:33amSacroiliitisacuteApril 2024 10:33amChronic paindeletedApril 2024 10:33amEncounter for monitoring Coumadin therapydeletedApril 2024 10:33amLumbosacral spondylosisacuteApril 2024 1:27pmPost laminectomy syndromeacuteApril 2024 1:27pm SacroiliitisacuteApril 2024 1:27pmChronic paindeletedApril 2024 1:27pmEncounter for monitoring Coumadin therapydeletedApril 2024 1:27pm AnemiaacuteMay 2024 10:24amGeneralized seizure disorderacuteMay 2024 10:24amHypercholesteremiaacuteMay 2024 10:24amHypertensionacuteMay 2024 10:24amMammogram declinedacuteMay 2024 10:24amOSA (obstructive sleep apnea)acuteMay 2024 10:24amThrombophiliaacuteMay 2024 10:24amType 2 diabetes mellitus with hyperglycemiaacuteMay 2024 10:24amMedicare annual wellness visit, subsequentnoneactiveMay 2024 10:24am [facility] Work Phone: 1(420) 280-824802-17-2025 History of Present illness Narrative* Jacqui Harper, [...] to be instructed in home exercise program. Snf Goals: To be met in 10 weeks [...] Please sign below. Date: documented in this [facility]02-07-2025 Evaluation note* Diagnosis Onset Date Resolution Status Admit Date Cellulitis acuteFebruary 2024 11:37amLumbosacral spondylosisacuteFebruary 2024 11:37amSuperficial bruising of abdominal wallacuteFebruary 2024 11:37am Adverse reaction to anticoagulantnoneactiveFebruary 2024 11:37amChronic painacuteFebruary 2024 12:55pmEncounter for monitoring Coumadin therapy acuteFebruary 2024 12:55pmLumbosacral spondylosisacuteFebruary 2024 12:55pmPost laminectomy syndromeacuteFebruary 2024 12:55pmSacroiliitis acuteFebruary 2024 12:55pmChronic painacuteApril 2024 10:33am Encounter for monitoring Coumadin therapyacuteApril 2024 10:33amLumbosacral spondylosisacuteApril 2024 10:33amPost laminectomy syndromeacuteApril 2024 10:33amSacroiliitisacuteApril 2024 10:33amChronic painacuteApril 2024 1:27pmEncounter for monitoring Coumadin therapyacuteApril 2024 1:27pmLumbosacral spondylosisacuteApril 2024 1:27pmPost laminectomy syndromeacuteApril 2024 1:27pmSacroiliitisacuteApril 2024 1:27pm [facility] Work Phone: 1(167) 479-936201-29-2025 [place] [address] Pain Management Procedure Note Signed Patient: Sandra Tavarez MR#: [id number] : 1940 Acct:[id number] Age/Sex: 84 / F Adm Date: 5 Loc: Room: Type: [facility] Attending Dr: Michael Dunaway MD Copies to: [...] [id number] Signed By: 12/26/24 1206 [facility]01-15-2025 Evaluation note* Diagnosis Onset Date Resolution Status Admit Date Anticoagulant long-term use acuteJanuary 2024 1:39pmChronic venous insufficiencyacuteJanuary 2024 1:39pmLaceration of leg excluding thighacuteJanuary 2024 1:39pm CellulitisacuteFebruary 2024 11:37amLumbosacral spondylosisacuteFebruary 2024 11:37amSuperficial bruising of abdominal wallacuteFebruary 2024 11:37amAdverse reaction to anticoagulantnoneactiveFebruary 2024 11:37am Chronic painacuteFebruary 2024 12:55pmEncounter for monitoring Coumadin therapyacuteFebruary 2024 12:55pmLumbosacral spondylosisacuteFebruary 2024 12:55pmPost laminectomy syndromeacuteFebruary 2024 12:55pm SacroiliitisacuteFebruary 2024 12:55pmChronic painacuteApril 2024 10:33amEncounter for monitoring Coumadin therapyacuteApril 2024 10:33am Lumbosacral spondylosisacuteApril 2024 10:33amPost laminectomy syndrome acuteApril 2024 10:33amSacroiliitisacuteApril 2024 10:33am [facility] Work Phone: 1(771) 209-587001-10-2025 Evaluation note* Diagnosis Onset Date Resolution Status Admit Date Generalized seizure disorder acuteJanuary 2024 10:20amHypercholesteremiaacuteJanuary 2024 10:20am HypertensionacuteJanuary 2024 10:20amIron deficiency anemiaacuteJanuary 2024 10:20amLumbar spondylosisacuteJanuary 2024 10:20amOSA (obstructive sleep apnea)acuteJanuary 2024 10:20amThrombophiliaacute December 07, 2024 10:20amType 2 diabetes mellitus with hyperglycemiaacute December 07, 2024 10:20amChronic painacuteJanuary 2024 1:37pmEncounter for monitoring Coumadin therapyacuteJanuary 2024 1:37pmLumbosacral spondylosisacuteJanuary 2024 1:37pmPost laminectomy syndromeacuteJanuary 2024 1:37pmSacroiliitisacuteJanuary 2024 1:37pm [facility] Work Phone: 1([phone]) 978-980501-10-2025 Evaluation note* Diagnosis Onset Date Resolution Status Admit Date Generalized seizure disorder acuteJanuary 2024 10:20amHypercholesteremiaacuteJanuary 2024 10:20am HypertensionacuteJanuary 2024 10:20amIron deficiency anemiaacuteJanuary 2024 10:20amLumbar spondylosisacuteJanuary 2024 10:20amOSA (obstructive sleep apnea)acuteJanuary 2024 10:20amThrombophiliaacute December 07, 2024 10:20amType 2 diabetes mellitus with hyperglycemiaacute December 07, 2024 10:20amChronic painacuteJanuary 2024 1:37pmEncounter for monitoring Coumadin therapyacuteJanuary 2024 1:37pmLumbosacral spondylosisacuteJanuary 2024 1:37pmPost laminectomy syndromeacuteJanuary 2024 1:37pmSacroiliitisacuteJanuary 2024 1:37pmAnticoagulant long- term useacuteJanuary 2024 1:39pmChronic venous insufficiencyacuteJanuary 2024 1:39pmLaceration of leg excluding thighacuteJanuary 2024 1:39pm [facility] Work Phone: 1(172) 858-453901-10-2025 Evaluation note* Diagnosis Onset Date Resolution Status Admit Date Generalized seizure disorder acuteJanuary 2024 10:20amHypercholesteremiaacuteJanuary 2024 10:20am HypertensionacuteJanuary 2024 10:20amIron deficiency anemiaacuteJanuary 2024 10:20amLumbar spondylosisacuteJanuary 2024 10:20amOSA (obstructive sleep apnea)acuteJanuary 2024 10:20amThrombophiliaacute December 07, 2024 10:20amType 2 diabetes mellitus with hyperglycemiaacute December 07, 2024 10:20amChronic painacuteJanuary 2024 1:37pmEncounter for monitoring Coumadin therapyacuteJanuary 2024 1:37pmLumbosacral spondylosisacuteJanuary 2024 1:37pmPost laminectomy syndromeacuteJanuary 2024 1:37pmSacroiliitisacuteJanuary 2024 1:37pmAnticoagulant long- term useacuteJanuary 2024 1:39pmChronic venous insufficiencyacuteJanuary 2024 1:39pmLaceration of leg excluding thighacuteJanuary 2024 1:39pm CellulitisacuteFebruary 2024 11:37amLumbosacral spondylosisacuteFebruary 2024 11:37amSuperficial bruising of abdominal wallacuteFebruary 2024 11:37amAdverse reaction to anticoagulantnoneactiveFebruary 2024 11:37am Chronic painacuteFebruary 2024 12:55pmEncounter for monitoring Coumadin therapyacuteFebruary 2024 12:55pmLumbosacral spondylosisacuteFebruary 2024 12:55pmPost laminectomy syndromeacuteFebruary 2024 12:55pm SacroiliitisacuteFebruary 2024 12:55pm [facility] Work Phone: 1(842) 212-280701-10-2025 Evaluation note* Diagnosis Onset Date Resolution Status Admit Date Generalized seizure disorder acuteJanuary 2024 10:20amHypercholesteremiaacuteJanuary 2024 10:20am HypertensionacuteJanuary 2024 10:20amIron deficiency anemiaacuteJanuary 2024 10:20amLumbar spondylosisacuteJanuary 2024 10:20amOSA (obstructive sleep apnea)acuteJanuary 2024 10:20amThrombophiliaacute December 07, 2024 10:20amType 2 diabetes mellitus with hyperglycemiaacute December 07, 2024 10:20amChronic painacuteJanuary 2024 1:37pmEncounter for monitoring Coumadin therapyacuteJanuary 2024 1:37pmLumbosacral spondylosisacuteJanuary 2024 1:37pmPost laminectomy syndromeacuteJanuary 2024 1:37pmSacroiliitisacuteJanuary 2024 1:37pmAnticoagulant long- term useacuteJanuary 2024 1:39pmChronic venous insufficiencyacuteJanuary 2024 1:39pmLaceration of leg excluding thighacuteNovuary 2024 1:39pm CellulitisacuteFebruary 2024 11:37amLumbosacral spondylosisacuteFebruary 2024 11:37amSuperficial bruising of abdominal wallacuteFebruary 2024 11:37amAdverse reaction to anticoagulantnoneactiveFebruary 2024 11:37am Chronic painacuteFebruary 2024 12:55pmEncounter for monitoring Coumadin therapyacuteFebruary 2024 12:55pmLumbosacral spondylosisacuteFebruary 2024 12:55pmPost laminectomy syndromeacuteFebruary 2024 12:55pm SacroiliitisacuteFebruary 2024 12:55pmChronic painacuteApril 2024 10:33amEncounter for monitoring Coumadin therapyacuteApril 2024 10:33am Lumbosacral spondylosisacuteApril 2024 10:33amPost laminectomy syndrome acuteApril 2024 10:33amSacroiliitisacuteApril 2024 10:33am [facility] Work Phone: 1(735) 403-159009-13-2024 [facility] Evaluation note* Encounter Date Diagnosis Assessment Notes Treatment Notes Treatment Clinical Notes Nov, Primary hypertension (ICD-10 - I 10) This patient is instructed to consume a healthy, low-fat, low-salt diet. They are also encouraged to continue exercise to achieve/maintain a normal BMI. Patient is instructed on home BP measurements: - rest for 5 minutes w/o talking.- positioned w/ feet on floor and arm supported.- average best 2/3 readings w/ goal < 135/85.- update office w/ homereadings in 2 weeks. Nov,Type 2 diabetes mellitus with hyperglycemia, without long-term current use of insulin (ICD-10 - E11.65)This patient is following a comprehensive diabetic treatment [...] office visit. Continue regular routine monitoring of A1C,Microalbumin, Dilated eye exam and Foot exam Nov,Hypercoagulable state (ICD-10 - D68.59)No thrombotic or bleeding complications. Continue Warfarin w/ INR monitoring routinely INR goal 2-3 Nov,Lumbar spondylosis (ICD-10 - M47.816)The patient is instructed to avoid bending, twisting or lifting. They are to use intermittent heat and ice as needed. They may schedule a massage or gentle manipulation. They may safely use Tylenol as needed. Nov,Simple chronic bronchitis (ICD-10 - J41.0)Mucolytics as needed. No ER visits for AE Weight loss would improve respiratory status Nov,OSA (obstructive sleep apnea) (ICD-10 - G47.33)This patient is aware of the benefits associated with KERMIT: With continued use, the patient reduces t he risk for CT, CVA, HTN, cardiac dysrhythmias and sudden cardiac deaths.The patient is also aware of the association between KERMIT and morning headaches, daytime somnolence, fatigue and obesity, whichalso has been improved with continued use.The patient is compliant with treatment, wearing the equipment every night for greater than 4 hours.The patient is instructed to continue use of the CPAP forOSA treatment. Nov,Gastroesophageal reflux disease with esophagitis without hemorrhage (ICD-10 - K21.00)Avoid lying flat after eating. Avoid eating 2 hours prior to bedtime. Smaller, frequent meals may be better tolerated.Weight loss if overweight.PPI with any heartburn.Monitor for dysphagia. Nov,hronic venous insufficiency (ICD-10 - I87.2)Avoid salt and elevate lower extremities, support stockings, inspect legs and feet daily for blisters and ulcerations. Nov,Hypercholesteremia (ICD-10 - E78.00)Instructed on diet and exercise with continued statin therapy.Discussed the beneficial effects of lowering cholesterol in reducing the risk for cerebrovascular and cardiovascular disease. [employer] Other 01-12-2024 Evaluation note* Encounter Date Diagnosis Assessment Notes Treatment Notes Treatment Clinical Notes Nov, Rhinorrhea (ICD-10 - J34.89) Monitor for now. Recommend Saline/Flonase NS. Mucinex (mucolytic) Push fluids, rest. Notify office w/ purulent drainage or fever Nov,rimary hypertension (ICD-10 - I10)This patient is instructed to consume a healthy, low-fat, low-salt diet. They are also encouraged to continue exercise to achieve/maintain a normal BMI. Avoid use of NSAIDs and Decongestants as they would adversely elevate the BP Nov,Suspected COVID-19 virus infection (ICD-10 - Z20.822)Order sent to [facility], results negative for COVID infection. [employer] Other 12-14-2023 Evaluation note* Encounter Date Diagnosis Assessment Notes Treatment Notes Treatment Clinical Notes Oct, Acute cough (ICD-10 - R05.1) [employer] Other 10-25-2023 Evaluation note* Encounter Date Diagnosis Assessment Notes Treatment Notes Treatment Clinical Notes Aug, Primary hypertension (ICD-10 - I 10) This patient is instructed to consume a healthy, low-fat, low-salt diet. They are also encouraged to continue exercise to achieve/maintain a normal BMI. Patient is instructed on home BP measurements: - rest for 5 minutes w/o talking- positioned w/ feeton floor and arm supported- average best 2/3 readings w/ goal < 135/85 _update office in couple weeks Aug,Type 2 diabetes mellitus with hyperglycemia, without long-term current use of insulin (ICD-10 - E11.65)This patient is following a comprehensive diabetic treatment [...] eye exam and Foot exam Recheck A1C Aug,Hypercoagulable state (ICD-10 - D68.59)Likely Leiden Factor V mutation Lifelong AC w/o bleeding complications noted. Aug,hronic venous hypertension involving right side (ICD-10 - I87.301) Avoid salt and elevate lower extremities, support stockings, inspect legs and feet daily for blisters and ulcerations. 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 Daily dressing changes w/ HH. Aug,OtherContinue daily dressing changes Cleanse w/ soap and water. HH to wrap daily until healed. Associated w/ healing ulceration Much improved w/ HH treatment - daily cleansing and wrapping Continue until completely closed, after which time she may return to the vein clinic for additionaltreatment Discussed compression, pumps etc [employer] Other 10-12-2023 Evaluation note* Encounter Date Diagnosis Assessment Notes Treatment Notes Treatment Clinical Notes Aug, Lumbar spondylosis (ICD-10 - M47 .816) [employer] Other 10-02-2023 Evaluation note* Encounter Date Diagnosis Assessment Notes Treatment Notes Treatment Clinical Notes Aug, Pain of right lower extremity (I CD-10 - M79.604) [employer] Other 09-18-2023 Evaluation note* Encounter Date Diagnosis Assessment Notes Treatment Notes Treatment Clinical Notes Jul, Cellulitis of right leg without foot (ICD-10 - L03.115) Elevate as much as possible. Continue Levaquin as prescribed. - instructed to take w/ food, add probiotics and call if develops diarrhea f/u Wound Clinic Jul,Ulcer associated with varicose vein, with infection (ICD-10 - I83.209)Keep bandaged, f/u wound clinic for debridement and bandage changes Jul,rimary hypertension (ICD-10 - I10)This patient is instructed to consume a healthy, low-fat, low-salt diet. They are also encouraged to continue exercise to achieve/maintain a normal BMI. Patient is instructed on home BP measurements: - rest for 5 minutes w/o talking- positioned w/ feeton floor and arm supported- average best 2/3 readings w/ goal < 135/85 Jul,Type 2 diabetes mellitus with hyperglycemia, without long-term current use of insulin (ICD-10 - E11.65)This patient is following a comprehensive diabetic treatment [...] Microalbumin, Dilated eye exam and Foot exam Jul,Hypercoagulable state (ICD-10 - D68.59)Continue w/ Warfarin, checking INR to maintain level 2-3. Instructed to call Med Clinic for adjustments w/ Warfarin (due to antibiotic) Jul,ain of right lower extremity (ICD-10 - M79.604) [employer] Other 08-22-2023 Evaluation note* Encounter Date Diagnosis Assessment Notes Treatment Notes Treatment Clinical Notes Jun, Dysuria (ICD-10 - R30.0) [employer] Other 08-14-2023 Evaluation note* Encounter Date Diagnosis Assessment Notes Treatment Notes Treatment Clinical Notes Jun, Primary hypertension (ICD-10 - I 10) This patient is instructed to consume a healthy, low-fat, low-salt diet. They are also encouraged to continue exercise to achieve/maintain a normal BMI. Jun,Type 2 diabetes mellitus with hyperglycemia, without long-term current use of insulin (ICD-10 - E11.65)This patient is following a comprehensive diabetic treatment [...] Microalbumin, Dilated eye exam and Foot exam Jun,OSA (obstructive sleep apnea) (ICD-10 - G47.33)This patient is aware of the benefits associated with KERMIT: With continued use, the patient reduces the risk for CT, CVA, HTN, cardiac dysrhythmias and sudden cardiac deaths.The patient is also aware of the association between KERMIT and morning headaches, daytime somnolence, fatigue and obesity, whichalso has been improved with continued use.The patient is compliant with treatment, wearing the equipment every night for greater than 4 hours.The patient is instructed to continue use of the CPAP forOSA treatment. Jun,Hypercoagulable state (ICD-10 - D68.59)COntinue Warfarin MOnitor w/ med management clinic: INR 2-3 No bleeding disorder Jun,hronic venous insufficiency (ICD-10 - I87.2)Avoid salt and elevate lower extremities, support stockings, inspect legs and feet daily for blisters and ulcerations. Jun,Simple chronic bronchitis (ICD-10 - J41.0)Mucinex as needed. Cough and deep breathing exercises Jun,Ulcer associated with varicose vein, with infection (ICD-10 - I83.209)5 sutures removed that were not able to approximate skin. Bleeding w/ macerated skin INstructed to cleanse daily, keep clean and dry. 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 Imodium partially helpful Trial of Colestipol Colonoscopy recently completed for anemia evaluation: negative for colitis or polyps Jun,OtherThe patient is instructed to avoid bending, twisting or lifting. They are to use intermittent heat and ice as needed. They may schedule a massage or gentle manipulation. They may safely use Tylenol as needed. Diet instructions: Smaller portions, avoid eating and laying flat, avoid eating or drinking prior to bedtime. Weight loss. [employer] Other 06-28-2023 Evaluation note* Encounter Date Diagnosis Assessment Notes Treatment Notes Treatment Clinical Notes Apr, Lumbar spondylosis (ICD-10 - M47 .816) The patient is instructed to avoid bending, twisting or lifting. They are to use intermittent heat and ice as needed. They may schedule a massage or gentle manipulation. They may safely use Tylenol as needed. Weight loss stressed Apr,Symptomatic varicose veins of both lower extremities (ICD-10 - I83.893)Avoid salt and elevate lower extremities, support stockings, inspect legs and feet daily for blisters and ulcerations. s/p laser treatment of RLL Continue w/ wraps f/u/ Vein Clinic Apr,Hypercoagulable state (ICD-10 - D68.59)Continue Eliquis to prevent thromboembolic events. No s/s bleeding Apr,Encounter for wheelchair assessment (ICD-10 - Z76.89)Required WC to complete MRADL. Rx supplied to the patient after her assessment [employer] Other 05-30-2023 Evaluation note* Encounter Date Diagnosis Assessment Notes Treatment Notes Treatment Clinical Notes March, Cellulitis of right lower extrem ity (ICD-10 - L03.115) [employer] Other 05-12-2023 Evaluation note* Encounter Date Diagnosis Assessment Notes Treatment Notes Treatment Clinical Notes March, Cellulitis of right lower extrem ity (ICD-10 - L03.115) Elevate and use warm compresses. March,hronic venous insufficiency (ICD-10 - I87.2)Avoid salt and elevate lower extremities, support stockings, inspect legs and feet daily for blisters and ulcerations. March,Hypercoagulable state (ICD-10 - D68.59)Not able to use NSAIDs [employer] Other 04-26-2023 Evaluation note* Encounter Date Diagnosis Assessment Notes Treatment Notes Treatment Clinical Notes Feb, Acute bronchitis due to other sp ecified organisms (ICD-10 - J20.8) Continue Mucinex and AUGUSTINE as needed - explained that coughing may persists for couple weeks - no further antibiotics necessary Feb,HTN (hypertension) (ICD-10 - I10)This patient is instructed to consume a healthy, low-fat, low-salt diet. They are also encouraged to continue exercise to achieve/maintain a normal BMI. Feb,Hypercoagulable state (ICD-10 - D68.59)Finish Eliquis and refer to med management clinic in [place] [employer] Other 04-19-2023 Evaluation note* Encounter Date Diagnosis Assessment Notes Treatment Notes Treatment Clinical Notes Feb, Generalized seizure disorder (IC D-10 - G40.309) [employer] Other 04-17-2023 NotePROCEDURE: XR CHEST 2 V [...] Electronically authenticated by: CELINA JONES Date: 2023-03-14 15:11[facility]04-17-2023 Evaluation note* Encounter Date Diagnosis Assessment Notes Treatment Notes Treatment Clinical Notes Feb, Simple chronic bronchitis (ICD-1 0 - J41.0) [employer] Other 04-13-2023 Evaluation note* Encounter Date Diagnosis Assessment Notes Treatment Notes Treatment Clinical Notes Feb, Acute bronchitis due to other sp ecified organisms (ICD-10 - J20.8) Instructed to use Robitussin or Mucinex for cough, saline or Flonase NS for congestion, Tylenol forpain and fever. Feb,Seasonal allergic rhinitis due to pollen (ICD-10 - J30.1) [employer] Other 04-05-2023 Evaluation note* Encounter Date Diagnosis [...] reviewed and amended by provider signed below. Feb,HTN (hypertension) (ICD-10 - I10)This patient is instructed to consume a healthy, low-fat, low-salt diet. They are also encouraged to continue exercise to achieve/maintain a normal BMI. Feb,Type 2 diabetes mellitus with hyperglycemia, without long-term current use of insulin (ICD-10 - E11.65)This patient is following a comprehensive diabetic treatment plan. They are checking their feet daily for calluses and nonhealing ulcers. They are being seen for yearly dilated eye examinations. Goals: SBP less than 130, LDL less than 100, FBS less than 140, AC and A1C less than 7%. They are checking their BS daily, will which are reviewed at the office visit. Feb,OSA (obstructive sleep apnea) (ICD-10 - G47.33)This patient is aware of the benefits associated with KERMIT: With continued use, the patient reduces the risk for CT, CVA, HTN, cardiac dysrhythmias and sudden cardiac deaths.The patient is also aware of the association between KERMIT and morning headaches, daytime somnolence, fatigue and obesity, whichalso has been improved with continued use.The patient is compliant with treatment, wearing the equipment every night for greater than 4 hours.The patient is instructed to continue use of the CPAP forOSA treatment. Feb,Hypercholesteremia (ICD-10 - E78.00)Diet and exercise with continued statin therapy. Feb,eneralized seizure disorder (ICD-10 - G40.309)No seizure activity, no longer seeing Neurology. Monitor for now, maintain present treatment Feb,Hypercoagulable state (ICD-10 - D68.59)Life long AC No bleeding complications Feb,Lumbosacral spondylosis (ICD-10 - M47.817)The patient is instructed to avoid bending, twisting or lifting. They are to use intermittent heat and ice as needed. They may schedule a massage or gentle manipulation. They may safely use Tylenol as needed. Feb,hronic venous insufficiency (ICD-10 - I87.2)Avoid salt and elevate lower extremities, support stockings, inspect legs and feet daily for blisters and ulcerations. Feb,astroesophageal reflux disease with esophagitis without hemorrhage (ICD-10 - K21.00)Diet instructions: Smaller portions, avoid eating and laying flat, avoid eating or drinking prior to bedtime. Weight loss. Feb,Thyroid nodule (ICD-10 - E04.1)3.5cm right thyroid nodule, Completed FNA and surveillance US for 6 years, no further US necessary Stable over 5 years, no longer requires surveillance US Feb,nticoagulant long-term use (ICD-10 - Z79.01)No bleeding complications Feb,Screening mammogram for breast cancer (ICD-10 - Z12.31) [employer] Other 03-20-2023 Evaluation note* Encounter Date Diagnosis Assessment Notes Treatment Notes Treatment Clinical Notes Jan, Post laminectomy syndrome (ICD-1 0 - M96.1) Continue with current treatment plan. Consider referral to a neurosurgeon in the future, she deniesa referral currently. Jan,Lumbar radiculopathy (ICD-10 - M54.16) 82 year old [...] offered to prescribe a low dose of Wishon, she states she does not want to be on opioid pain medications. She can follow up in 3 months or as needed. Jan,hronic pain (ICD-10 - G89.29) Follow up as needed [employer] Other 03-02-2023 Evaluation note* Encounter Date Diagnosis Assessment Notes Treatment Notes Treatment Clinical Notes Jan, Post laminectomy syndrome (ICD-1 0 - M96.1) Continue with current treatment plan. Jan,Lumbar radiculopathy (ICD-10 - M54.16) 82 year old female here for follow up status post caudal epidural steroid injection with a Racz catheter and lysis of adhesions under fluoroscopic guidance. Patient reports 90-100% pain relief as well as improved walking, standing and daily functions for 1 day following procedure. She complains of b utocks pain with radiation down the posterior aspect of the bilateral lower extremities to the knees. Pertinent imaging of the lumbar spine was reviewed and discussed in detail with the patient whichshowed severe stenosis of the lumbar spinal canal. Anatomy of spine as well as different treatment options were discussed in detail with patient in regards to patients condition. I recommend we proceed with a bilateral S1 transforaminal epidural steroid injection under fluoroscopic guidance. Risks and benefits of procedure explained to patient; patient verbalizes understanding. Jan,3Chronic pain (ICD-10 - G89.29) Follow up after procedure. [employer] Other 02-03-2023 Evaluation note* Encounter Date Diagnosis Assessment Notes Treatment Notes Treatment Clinical Notes Dec, Arthritis of sacroiliac joint (I CD-10 - M47.818) Patient denies any sacral pain today. Dec,ost laminectomy syndrome (ICD-10 - M96.1) 81 year [...] procedure explained to patient; patient verbalizes understanding. Dec,Lumbosacral spondylosis (ICD-10 - M47.817) Stable, she denies any lumbar pain today. Dec,Sacroiliitis (ICD-10 - M46.1) Patient denies any sacral pain today. Dec, 3Chronic pain (ICD-10 - G89.29) Follow up after procedure. [employer] Other 01-30-2023 Evaluation note* Encounter Date Diagnosis Assessment Notes Treatment Notes Treatment Clinical Notes Nov, Erysipelas (ICD-10 - A46) Start w antibiotic, take entire course. Call if no improvement for other prescription or dermatology referral. Nov,Systemic viral illness (ICD-10 - B34.9)Chills and nausea has resolved Continue to monitor symptoms [employer] Other 01-05-2023 Evaluation note* Encounter Date Diagnosis Assessment Notes Treatment Notes Treatment Clinical Notes Nov, Arthritis of sacroiliac joint (I CD-10 - M47.818) 81 year old female here for follow up status post sacral lateral branch radiofrequency ablation bilaterally at S1, S2, S3 using bipolar radiofrequency under fluoroscopic guidance. Patient reports minimal pain relief as well as improved walking, standing and daily functions following procedure. She c ontinues to complain of low back pain today. [...] topical creams as tolerated in the meantime. Nov,Lumbosacral spondylosis (ICD-10 - M47.817) Stable. Continue with current treatment plan. Nov,Sacroiliitis (ICD-10 - M46.1) Continue with conservative treatment at this time. Nov,hronic pain (ICD-10 - G89.29) Follow up in 4 weeks. [employer] Other 12-06-2022 Evaluation note* Encounter Date Diagnosis Assessment Notes Treatment Notes Treatment Clinical Notes Oct, Arthritis of sacroiliac joint (I CD-10 - M47.818) 81 year old female here [...] procedure explained to patient; patient verbalizes understanding. Oct,Lumbosacral spondylosis (ICD-10 - M47.817) Stable. Patient feels lumbar pain is tolerable at this time. Oct,acroiliitis (ICD-10 - M46.1) Continue with current treatment plan Oct,hronic pain (ICD-10 - G89.29) Patient is aware to hold Eliquis for three days prior to each procedure [employer] Other 10-15-2022 Evaluation note* Encounter Date Diagnosis Assessment Notes Treatment Notes Treatment Clinical Notes Aug, Contact with and (lopez spected) exposure to other viral communicable diseases (ICD-10 - Z20.828) Aug,OVID-19 (ICD-10 - U07.1) COVID PCR test performed [...] treatment plan. Patient left in stable condition [employer] Other 10-14-2022 Evaluation note* Encounter Date Diagnosis Assessment Notes Treatment Notes Treatment Clinical Notes Aug, Sacroiliitis (ICD-10 - M46.1) If her pain persists or worsens, we can consider other interventional options in the future. Aug,Lumbosacral spondylosis (ICD-10 - M47.817) 81 year old female here for follow up status post lumbar facet medial branch radiofrequency ablation bilaterally at L3, L4 as well as L5 dorsal ramus for denervation of L4-5 and L5-S1 facet joints under fluoroscopic guidance. Patient reports minimal pain relief as well as improved walking, standingand daily functions following procedure. She continues to complain of low back pain today. She alsocomplains of bilateral lower extremity pain. I discussed different treatment options with the patient and I recommend that she give the procedure more time as it can take up to 6 weeks for maximum relief. She is counseled against any excessive bending or twisting. In the meantime, she is encouragedto use ice/heat or topical creams as tolerated for pain. Aug,hronic pain (ICD-10 - G89.29) Follow up in 4 weeks. [employer] Other 09-01-2022 Evaluation note* Encounter Date Diagnosis Assessment Notes Treatment Notes Treatment Clinical Notes Jul, Sacroiliitis (ICD-10 - M46.1) Stable. Patient denies sacral pain Jul,Lumbosacral spondylosis (ICD-10 - M47.817) 81 year old [...] at bedtime as needed for muscle cramps. Jul,hronic pain (ICD-10 - G89.29) Continue with current treatment plan. Patient is aware to hold Eliquis for 3 days prior to procedure [employer] Other 08-05-2022 Evaluation note* Encounter Date Diagnosis Assessment Notes Treatment Notes Treatment Clinical Notes Jun, Sacroiliitis (ICD-10 - M46.1) Sacral pain is mild. Jun,Lumbosacral spondylosis (ICD-10 - M47.817) 81 year old female here for follow up status post bilateral sacroiliac joint injection under fluoroscopic guidance. Patient reports 60% pain relief as well as improved walking, standing and daily functions following procedure. She voices continued complaints of residual low back pain with radiationinto the buttocks. She reports 80-90% of her lower extremity pain has improved since the procedure.Clinically her residual pain presents as lumbosacral spondylosis. I recommend proceeding with a bilateral lumbar facet medial branch nerve blocks. Risks and benefits of procedure explained to patient; patient verbalizes understanding. Jun,hronic pain (ICD-10 - G89.29) Continue with current treatment plan Jun,nticoagulant long-term use (ICD-10 - Z79.01) Patient is aware to hold Eliquis for 3 days prior to procedure [employer] Other 07-27-2022 [facility]* Encounter Date Diagnosis Assessment Notes Treatment Notes Treatment Clinical Notes May, Sacroiliitis (ICD-10 - M46.1) 81 year old female here for follow up for chronic pain. She voices complaints of low back pain withradiation down the posterior aspect of the bilateral thighs to the knees. She feels pain can negatively impact her daily activities. Anatomy of spine discussed in detail with patient in regards to patients condition. Patient is a candidate for a bilateral sacroiliac joint injection under fluoroscopic guidance. Risks and benefits of procedure explained to patient; patient verbalizes understanding. May,Lumbosacral spondylosis (ICD-10 - M47.817) In the future if the pain persists, we can consider proceeding with a bilateral lumbar facet medialbranch nerve block followed by a RFA if applicable under fluoroscopic guidance. May,hronic pain (ICD-10 - G89.29) Continue with current treatment plan May,nticoagulant long-term use (ICD-10 - Z79.01) Patient is aware to hold Eliquis for 3 days prior to procedure [employer] Other 04-14-2022 Evaluation note* Encounter Date Diagnosis Assessment Notes Treatment Notes Treatment Clinical Notes Feb, Chronic pain (ICD-10 - G89.29) Follow up after procedure. Feb,acroiliitis (ICD-10 - M46.1)81 year old female here for follow up [...] procedure explained to patient; patient verbalizes understanding. Feb,ost laminectomy syndrome (ICD-10 - M96.1)Stable. Feb,Lumbosacral spondylosis (ICD-10 - M47.817)Consider lumbar facet medial branch nerve blocks in the future. [employer] Other 03-24-2022 Evaluation note* Encounter Date Diagnosis Assessment Notes Treatment Notes Treatment Clinical Notes Jan, Post laminectomy syndrome (ICD-1 0 - M96.1) 81 y/o female here with complaints of low back pain with radiation down the posterior aspect of thebilateral lower extremities to the knees. She states her pain started over 20 years ago with no known inciting trauma, but has significantly increased in the last 3-4 years. She reports prior surgerywith Dr. [facility] at [facility] 8 years ago. She also reports prior epidural steroid injections with Dr. Deacon Smallwood and Dr Kothari, last received Nov 2021. She also notes previous physical therapy with minimal relief of her symptoms. She feels pain can negatively impact her ADL's and sleep pattern. Priorto examining the patient, I reviewed progress notes [...] procedure explained to patient; patient verbalizes understanding. Jan,acroiliitis (ICD-10 - M46.1) In the future if the pain persists, we can consider proceeding with a bilateral sacroiliac joint injection under fluoroscopic guidance. Jan,Lumbosacral spondylosis (ICD-10 - M47.817) In the future if the pain persists, we can consider proceeding with a bilateral lumbar facet medialbranch nerve block followed by a RFA if applicable under fluoroscopic guidance. 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 She will check with her PCP to make sure she will be able to hold this. She must have her PT/INR checked the day prior to procedure. Jan,therMedical decision making shows a new problem to me with further workup planned or suggested with thepotential for extensive treatment options that were considered with the most applicable given this patient's situation as noted above. Treatment options considered include a combination of physical th erapy approaches, pharmacologic management, and interventional procedures. Those most applicable tothe patient were discussed at this time. Risk [...] prolonged functional impairment requiring constant patient reassessment andhigh-level medical decision making. The amount and complexity of data reviewed is high given that patient labs, radiology reports, and other test were obtained, reviewed and summarized as applicable from the physician portal and/or outside medical records. Pertinent positive and negative findings were considered in medical decision-making. [employer] Other 03-03-2022 Evaluation note* Encounter Date Diagnosis Assessment Notes Treatment Notes Treatment Clinical Notes Jan, Spinal stenosis of l umbar region, unspecified whether neurogenic claudication present (ICD-10 [...] check bone quality and schedule a 6-week follow-up.I have also referred her to pain management. Jan,Low back pain, unspecified (ICD-10 - M54.50) Jan,2Other chronic pain (ICD-10 - G89.29) Jan,History of lumbar fusion (ICD-10 - Z98.1) Jan,symptomatic age-related postmenopausal state (ICD-10 - Z78.0) [employer] Other 2021 Evaluation note* Encounter Date Diagnosis Assessment Notes Treatment Notes Treatment Clinical Notes Oct, Acute left ankle pain (ICD-10 - M25.572) Oct,chilles tendinitis of left lower extremity (ICD-10 - M76.62) Wear the Mainor wrap for comfort and compression. Take the Medrol Dosepak as prescribed until gone. You may take Tylenol as needed for pain. Follow-up with your family doctor or your orthopedic physician if no improvement in 2 to 3 days [employer] Other Evaluation + Plan note No data available for this section [facility] General Surgery [place] Evaluation noteNo InformationNort [employer] Other Evaluation noteNo assessment information available [facility] Work Phone: Evaluation note* Diagnosis Onset Date Resolution Status Chronic venous insufficiency acuteHypertensionacuteLumbar spondylosisacuteThrombophiliaacute [facility] Work Phone: Evaluation note* Diagnosis Onset Date Resolution Status Chronic venous insufficiency acuteThrombophiliaacuteNonhealing surgical woundnoneactiveGeneralized seizure disorderacuteHypercholesteremiaacuteHypertensionacuteLumbar spondylosisacuteOSA (obstructive sleep apnea)acuteThrombophiliaacuteType 2 diabetes mellitus with hyperglycemiaacuteMedicare annual wellness visit, subsequentnoneactive Anticoagulant long-term useacuteArthritis of sacroiliac jointacuteChronic pain acuteIschial bursitisacuteLumbosacral spondylosisacute [facility] Work Phone: Evaluation note* Diagnosis Onset Date Resolution Status Generalized seizure disorder acuteHypercholesteremiaacuteHypertensionacuteLumbar spondylosisacuteOSA (obstructive sleep apnea)acuteThrombophiliaacuteType 2 diabetes mellitus with hyperglycemiaacuteMedicare annual wellness visit, subsequentnoneactive Anticoagulant long-term useacuteArthritis of sacroiliac jointacuteChronic pain acuteIschial bursitisacuteLumbosacral spondylosisacute [facility] Work Phone: Evaluation note* Diagnosis Onset Date Resolution Status Generalized seizure disorder acuteHypercholesteremiaacuteHypertensionacuteLumbar spondylosisacuteOSA (obstructive sleep apnea)acuteThrombophiliaacuteType 2 diabetes mellitus with hyperglycemiaacuteMedicare annual wellness visit, subsequentnoneactive Anticoagulant long-term useacuteArthritis of sacroiliac jointacuteChronic pain acuteIschial bursitisacuteLumbosacral spondylosisacuteIschial bursitisacute Lumbosacral spondylosisacutePost laminectomy syndromeacute [facility] Work Phone: Evaluation note* Diagnosis Onset Date Resolution Status Ischial bursitis acuteLumbosacral spondylosisacutePost laminectomy syndromeacuteAnticoagulant long-term useacuteChronic painacuteLumbosacral spondylosisacutePost laminectomy syndromeacute [facility] Work Phone: Evaluation note* Diagnosis Onset Date Resolution Status Ischial bursitis acuteLumbosacral spondylosisacutePost laminectomy syndromeacuteAnticoagulant long-term useacuteChronic painacuteLumbosacral spondylosisacutePost laminectomy syndromeacuteGeneralized seizure disorderacuteHypercholesteremiaacute HypertensionacuteLumbar spondylosisacuteOSA (obstructive sleep apnea)acute ThrombophiliaacuteType 2 diabetes mellitus with hyperglycemiaacute [facility] Work Phone: Evaluation note* Diagnosis Onset Date Resolution Status Ischial bursitis acuteLumbosacral spondylosisacutePost laminectomy syndromeacuteAnticoagulant long-term useacuteChronic painacuteLumbosacral spondylosisacutePost laminectomy syndromeacuteGeneralized seizure disorderacuteHypercholesteremiaacute HypertensionacuteLumbar spondylosisacuteOSA (obstructive sleep apnea)acute ThrombophiliaacuteType 2 diabetes mellitus with hyperglycemiaacuteAnticoagulant long-term useacuteChronic painacuteLumbosacral spondylosisacutePost laminectomy syndromeacuteSacroiliitisacute [facility] Work Phone: Evaluation note* Diagnosis Onset Date Resolution Status Anticoagulant long-term use acuteChronic painacuteLumbosacral spondylosisacutePost laminectomy syndromeacute Generalized seizure disorderacuteHypercholesteremiaacuteHypertensionacuteLumbar spondylosisacuteOSA (obstructive sleep apnea)acuteThrombophiliaacuteType 2 diabetes mellitus with hyperglycemiaacuteAnticoagulant long-term useacuteChronic painacuteLumbosacral spondylosisacutePost laminectomy syndromeacuteSacroiliitis acute [facility] Work Phone: Evaluation note* Diagnosis Onset Date Resolution Status Anticoagulant long-term use acuteChronic painacuteLumbosacral spondylosisacutePost laminectomy syndromeacute Generalized seizure disorderacuteHypercholesteremiaacuteHypertensionacuteLumbar spondylosisacuteOSA (obstructive sleep apnea)acuteThrombophiliaacuteType 2 diabetes mellitus with hyperglycemiaacuteAnticoagulant long-term useacuteChronic painacuteLumbosacral spondylosisacutePost laminectomy syndromeacuteSacroiliitis acuteChronic painacuteLumbosacral spondylosisacutePost laminectomy syndromeacute Sacroiliitisacute [facility] Work Phone: Evaluation note* Diagnosis Onset Date Resolution Status Admit Date Generalized seizure disorder acuteJanuary 2024 10:20amHypercholesteremiaacuteJanuary 2024 10:20am HypertensionacuteJanuary 2024 10:20amIron deficiency anemiaacuteJanuary 2024 10:20amLumbar spondylosisacuteJanuary 2024 10:20amOSA (obstructive sleep apnea)acuteJanuary 2024 10:20amThrombophiliaacute December 07, 2024 10:20amType 2 diabetes mellitus with hyperglycemiaacute December 07, 2024 10:20am [facility] Work Phone: Evaluation note* Diagnosis Low back [...] present- Primary documented in this encounter [facility] HealthcareHistory general Narrative - Reported* Type Description Date Medical History astma Medical HistoryOsteoporosisMedical HistoryHTN (hypertension)Medical History HypercholesteremiaSurgical HistoryBL/CTRSurgical HistorycraniotomySurgical Historyrotator cup repairSurgical Historyrt knee arthosopy,chondroplastySurgical HistorycolonoscopySurgical HistoryEGD-2004Surgical HistoryRT TKASurgical History CystoscopySurgical Historylao sigmoid resectionSurgical Historycholecystectomy Surgical HistoryIVC filterSurgical Historyknee replacement leftSurgical History fracture repair right femurHospitalization Historysee above [employer] Other History general Narrative - Reported* Type Description Date Medical History astma Medical HistoryOsteoporosisMedical HistoryHTN (hypertension)Medical History HypercholesteremiaSurgical HistoryBL/CTRSurgical HistorycraniotomySurgical Historyrotator cup repairSurgical Historyrt knee arthosopy,chondroplastySurgical HistoryColonoscopyurgical HistoryEGD-2004Surgical HistoryRT TKASurgical HistoryCystoscopySurgical Historylao sigmoid resectionSurgical History cholecystectomySurgical HistoryIVC filterSurgical Historyknee replacement left Surgical Historyfracture repair right femurHospitalization Historysee above [facility] XRONet Other Hospital Discharge instructions No data available for this section [facility] General Surgery [place] Reason for referral (narrative)* Reason Referral for lower e xtremity ulceration Diagnosis 1 Ulcer associated wit h varicose vein, with infection (I83.209) Referral Organization [facility] Arelis cano Referring Provider First Name Robert Referring Provider Last Name Genna Referring Provider Specialty Internal Me dicine Referred Organization [facility] Referred Address [address], [place],[address] Referred Provider Specialty Wound Care Referral Priority Routine General Notes Mrs. Tavarez has chroni c venous insufficiency and suffered a contusion injury to her RLE, which resulted in a nonhealing ulceration. It was sutured by the ER but didn't result in wound closure. She is being referred for debridement and bandaging. She was empirically placed on Mupirocin and Cephalexin. [employer] Other Reason for referral (narrative)No reason for referral information availableChildren'S Hospital For [facility] Work Phone: Reason for visit NarrativeReferral Dr. Conley [facility] [employer]RONet Other reason for visit Narrative* Rehabilitation - Outpatient (Routine) - AuthorizedSpecialtyDiagnoses / ProceduresReferred By ContactReferred To ContactPhysical Therapy Diagnoses Low back pain, unspecified Proximal Leg Pain Procedures RI PHYSICAL THERAPY EVALUATION LOW COMPLEX 20 MINS RI OFFICE/OUTPATIENT [facility] 60 MINUTES Robert Vail MD [address] [place] [address] Phone: tel: fax: [facility] [address] [address] Phone: tel: fax: Referral IDStatusReasonStart DateExpiration DateVisits RequestedVisits [id number]/[id number] [facility] HealthcareReason for visit Narrative* Rehabilitation - Outpatient (Routine) - AuthorizedSpecialtyDiagnoses / ProceduresReferred By ContactReferred To ContactPhysical Therapy Diagnoses Low back pain, unspecified Proximal Leg Pain Procedures RI PHYSICAL THERAPY EVALUATION LOW COMPLEX 20 MINS RI OFFICE/OUTPATIENT NEW HIGH MDM 60 MINUTES Robert Vail MD [address] [place] [address] Phone: tel: fax: [facility] [address] [address] Phone: tel: fax: Referral IDStatusReasonStart DateExpiration DateVisits RequestedVisits [id number]/14/202512/31/20252030 [facility] HealthcareReason for visit Narrative* Rehabilitation - Outpatient (Routine) - AuthorizedSpecialtyDiagnoses / ProceduresReferred By ContactReferred To ContactPhysical Therapy Diagnoses Low back pain, unspecified Proximal Leg Pain Procedures RI PHYSICAL THERAPY EVALUATION LOW COMPLEX 20 MINS RI OFFICE/OUTPATIENT NEW HIGH MDM 60 MINUTES Robert Vail MD Phone: tel: fax: [facility] [address] [address] Phone: tel: fax: Referral IDStatusReasonStart DateExpiration DateVisits RequestedVisits [id number]/14/202512/31/20252030 [facility] HealthcareReason for visit Narrative* Rehabilitation - Outpatient (Routine) - AuthorizedSpecialtyDiagnoses / ProceduresReferred By ContactReferred To ContactPhysical Therapy Diagnoses Low back pain, unspecified Proximal Leg Pain Procedures RI PHYSICAL THERAPY EVALUATION LOW COMPLEX 20 MINS RI OFFICE/OUTPATIENT NEW HIGH MDM 60 MINUTES Robert Vail MD Phone: tel: fax: [facility] [address] [address] Phone: tel: fax: Referral IDStatusReasonStart DateExpiration DateVisits RequestedVisits [id number]/14/202512/31/20252030 [facility] HealthcareReason for visit Narrative* Rehabilitation - Outpatient (Routine) - AuthorizedSpecialtyDiagnoses / ProceduresReferred By ContactReferred To ContactPhysical Therapy Diagnoses Low back pain, unspecified Proximal Leg Pain Procedures RI PHYSICAL THERAPY EVALUATION LOW COMPLEX 20 MINS RI OFFICE/OUTPATIENT NEW HIGH MDM 60 MINUTES Robert Vail DO Phone: tel: fax: [facility] [address] [address] Phone: tel: fax: Referral IDStatusReasonStart DateExpiration DateVisits RequestedVisits [id number]/14/202512/31/20252030 [facility] HealthcareReason for visit Narrative* Rehabilitation - Outpatient (Routine) - ClosedSpecialtyDiagnoses / ProceduresReferred By ContactReferred To Contact Physical Therapy Diagnoses Low back pain, unspecified Proximal Leg Pain Procedures RI PHYSICAL THERAPY EVALUATION LOW COMPLEX 20 MINS RI OFFICE/OUTPATIENT NEW HIGH MDM 60 MINUTES Robert Vail DO Phone: tel: fax: [facility] [address] [address] Phone: tel: fax: Referral IDStatusReasonStart DateExpiration DateVisits RequestedVisits [id number]/14/202512/31/20252030 [facility] Healthcare Summary Purpose Family History Relationship Condition Age at Onset Recorded Date/T mg Not Specified Cerebrovascular accident (CVA) Unknown Heart diseaseUnknown Relationship Condition Age at Onset Recorded Date/T mg Not Specified Cerebrovascular accident (CVA) Unknown Heart diseaseUnknownfatherDeceasedUnknownNot SpecifiedDeceasedUnknownHistory of strokeUnknown Relationship Condition Age at Onset Recorded Date/T mg mother Cerebrovascular accident (CVA) Unknown Heart diseaseUnknownfatherDeceasedUnknownmotherDeceasedUnknownHistory of stroke Unknown Relationship Condition Age at Onset Recorded Date/T mg mother Heart disease Unknown Cerebrovascular accident (CVA)UnknownHistory of strokeUnknownfatherDeceased Unknown Advance Directives Advance Directive Response Recorded Date/ Time Advance Directives No October 9:37am Advance Directive Response Recorded Date/ Time Advance Directives No October 8:37am Advance Directive Response Recorded Date/ Time Advance Directives No December 1:28pm Advance Directive Response Recorded Date/ Time Advance Directives No December 2:28pm Advance Directive Response Recorded Date/ Time Advance Directives No March 20 1:53pm Hospital Course Note [facility] Clinical Discharge Summary PERSON INFORMATION Name SANDRA TAVAREZ Age 79 Years 1940 Sex FEMALE Language Citizen Of [place] PCP Robert Vail Marital Status Med Service Med/Surg Acct# Arrival 05/23/2020 09:44:18 Visit Reason SURGERY - LEFT TOTAL KNEE Acuity LOS Address: [address] [place] [address] Comment: PROVIDER INFORMATION VITALS INFORMATION Vital Sign [...] whether neurogenic claudication present (M48.061) Referral Organization [facility] Ne urosurgery Referring Provider First Name Usama Referring Provider Last Name Eusebio Referring Provider Specialty Neurologica l Surgery Ref[facility] Referred Provider Michael Dunaway Referred Address [address] [facility],[place] [address] ,[place], [place],[address] Referred Provider Specialty Pain Medicin e Referral Priority Routine General Notes Pamela Lopez 022 10:55:11 AM >Received today and sent P2P Chief Complaint and Reason for Visit Chief Complaint Iron Deficiency Anem ia Back Pain Chief Complaint t81.40xa left leg woundReason for VisitChronic venous insufficiency Hypertension Lumbar spondylosis Thrombophilia Chief Complaint left leg wound Amb Documentation [facility] Wellness INCREASED BUTTOCK PAINReason for VisitChronic venous insufficiency Thrombophilia Nonhealing surgical wound Generalized seizure disorder Hypercholesteremia Hypertension Lumbar spondylosis KERMIT (obstructive sleep apnea) Thrombophilia Type 2 diabetes mellitus with hyperglycemia Medicare annual wellness visit, subsequent Anticoagulant long-term use Arthritis of sacroiliac joint Chronic pain Ischial bursitis Lumbosacral spondylosis Chief Complaint left leg wound Amb Documentation [facility] Wellness INCREASED BUTTOCK PAIN Z79.01Reason for VisitChronic venous insufficiency Thrombophilia Nonhealing surgical wound Generalized seizure disorder Hypercholesteremia Hypertension Lumbar spondylosis KERMIT (obstructive sleep apnea) Thrombophilia Type 2 diabetes mellitus with hyperglycemia Medicare annual wellness visit, subsequent Anticoagulant long-term use Arthritis of sacroiliac joint Chronic pain Ischial bursitis Lumbosacral spondylosis Chief Complaint left leg wound Amb Documentation [facility] Wellness INCREASED BUTTOCK PAIN Z79.01 ELIQUISKRISTOFER ISCHIAL BURSA INJReason for VisitChronic venous insufficiency Thrombophilia Nonhealing surgical wound Generalized seizure disorder Hypercholesteremia Hypertension Lumbar spondylosis KERMIT (obstructive sleep apnea) Thrombophilia Type 2 diabetes mellitus with hyperglycemia Medicare annual wellness visit, subsequent Anticoagulant long-term use Arthritis of sacroiliac joint Chronic pain Ischial bursitis Lumbosacral spondylosis Chief Complaint Amb Documentation [facility]DC Wellness INCREASED BUTTOCK PAIN Z79.01 M47.817 M70.70 ELIQUISKRISTOFER ISCHIAL BURSA INJReason for VisitGeneralized seizure disorder Hypercholesteremia Hypertension Lumbar spondylosis KERMIT (obstructive sleep apnea) Thrombophilia Type 2 diabetes mellitus with hyperglycemia Medicare annual wellness visit, subsequent Anticoagulant long-term use Arthritis of sacroiliac joint Chronic pain Ischial bursitis Lumbosacral spondylosis Chief Complaint [facility] Wellness INCREASED BUTTOCK PAIN Z79.01 M47.817 M70.70 ELIQUISKRISTOFER ISCHIAL BURSA INJ FOLLOW UP AFTER KRISTOFER ISCHIAL BURSA INJReason for VisitGeneralized seizure disorder Hypercholesteremia Hypertension Lumbar spondylosis KERMIT (obstructive sleep apnea) Thrombophilia Type 2 diabetes mellitus with hyperglycemia Medicare annual wellness visit, subsequent Anticoagulant long-term use Arthritis of sacroiliac joint Chronic pain Ischial bursitis Lumbosacral spondylosis Ischial bursitis Lumbosacral spondylosis Post laminectomy syndrome Chief Complaint [facility] Wellness INCREASED BUTTOCK PAIN Z79.01 M47.817 M70.70 ELIQUISKRISTOFER ISCHIAL BURSA INJ FOLLOW UP AFTER KRISTOFER ISCHIAL BURSA INJ M96.1Reason for VisitGeneralized seizure disorder Hypercholesteremia Hypertension Lumbar spondylosis KERMIT (obstructive sleep apnea) Thrombophilia Type 2 diabetes mellitus with hyperglycemia Medicare annual wellness visit, subsequent Anticoagulant long-term use Arthritis of sacroiliac joint Chronic pain Ischial bursitis Lumbosacral spondylosis Ischial bursitis Lumbosacral spondylosis Post laminectomy syndrome Chief Complaint Z79.01 M47.817 M70.70 ELIQUISKRISTOFER ISCHIAL BURSA INJ FOLLOW UP AFTER KRISTOFER ISCHIAL BURSA INJ M96.1 review imaging discuss optionsReason for VisitIschial bursitis Lumbosacral spondylosis Post laminectomy syndrome Anticoagulant long-term use Chronic pain Lumbosacral spondylosis Post laminectomy syndrome Chief Complaint M47.817 M70.70 ELIQUISKRISTOFER ISCHIAL BURSA INJ FOLLOW UP AFTER KRISTOFER ISCHIAL BURSA INJ M96.1 review imaging discuss options 4 month f/uReason for VisitIschial bursitis Lumbosacral spondylosis Post laminectomy syndrome Anticoagulant long-term use Chronic pain Lumbosacral spondylosis Post laminectomy syndrome Generalized seizure disorder Hypercholesteremia Hypertension Lumbar spondylosis KERMIT (obstructive sleep apnea) Thrombophilia Type 2 diabetes mellitus with hyperglycemia Chief Complaint FOLLOW UP AFTER KRISTOFER ISCHIAL BURSA INJ M96.1 review imaging discuss options 4 month f/u z79.01Reason for VisitIschial bursitis Lumbosacral spondylosis Post laminectomy syndrome Anticoagulant long-term use Chronic pain Lumbosacral spondylosis Post laminectomy syndrome Generalized seizure disorder Hypercholesteremia Hypertension Lumbar spondylosis KERMIT (obstructive sleep apnea) Thrombophilia Type 2 diabetes mellitus with hyperglycemia Chief Complaint FOLLOW UP AFTER KRISTOFER ISCHIAL BURSA INJ M96.1 review imaging discuss options 4 month f/u z79.01 Back Pain Back PainReason for VisitIschial bursitis Lumbosacral spondylosis Post laminectomy syndrome Anticoagulant long-term use Chronic pain Lumbosacral spondylosis Post laminectomy syndrome Generalized seizure disorder Hypercholesteremia Hypertension Lumbar spondylosis KERMIT (obstructive sleep apnea) Thrombophilia Type 2 diabetes mellitus with hyperglycemia Chief Complaint FOLLOW UP AFTER KRISTOFER ISCHIAL BURSA INJ M96.1 review imaging discuss options 4 month f/u z79.01 Back Pain Back Pain FOLLOW UP AFTER CAUDALReason for VisitIschial bursitis Lumbosacral spondylosis Post laminectomy syndrome Anticoagulant [...] FOLLOW UP AFTER CAUDAL bilateral SI joint injectionReason for VisitAnticoagulant long-term use Chronic pain Lumbosacral spondylosis Post [...] joint injection f/u after kristofer SI joint injReason for VisitAnticoagulant long-term use Chronic pain Lumbosacral spondylosis Post [...] 0:20am Type 2 diabetes mellitus with hyperglyce [facility] December 07, 2024 10:20am Chief Complaint Admit [...] 0:20am Type 2 diabetes mellitus with hyperglyce [facility] December 07, 2024 10:20am Chronic pain December [...] November 1:39pm Laceration of leg excluding thigh y 2024 1:39pm Cellulitis January 04, 2025 [...] November 1:39pm Laceration of leg excluding thigh y 2024 1:39pm Cellulitis January 04, 2025 [...] for Visit Admit Date Lumbosacral spondylosis January 16 025 12:55pm Post [...] 09, 2025 10:24am Medicare annual wellness visit, germáne nt April 09, 2025 10:24am Chief Complaint Admit Date bilateral SI joint injection February 14, 2025 10:10am f/u after kristofer SI joint inj February 26 10:33am *coumadin*bilateral L3,4,5 lumbar facet MBB March 12, 2025 1:03pm f/u after kristofer lumbar MBB March 20 1:27pm Coumadin kristofer lumbar facet RFA L3, L4, L5 March 28, 2025 10:14am [facility] Wellness - HIGH RISK April 09, 2025 [...] 09, 2025 10:24am Medicare annual wellness visit, gabriel nt April 09, 2025 10:24am Lumbosacral spondylosis [...] L3, L4, L5 March 28, 2025 10:14am [facility] Wellness - HIGH RISK April 09, 2025 10:24am 2 week follow up after RFA April 15 1:48pm follow up after lumbar RFA May 06 11:46am right leg wound May 06, 2025 1:20p m Chief Complaint Admit Date f/u after kristofer lumbar MBB March 20 1:27pm Coumadin kristofer lumbar facet RFA L3, L4, L5 March 28, 2025 10:14am [facility] Wellness - HIGH RISK April 09, 2025 [...] L3, L4, L5 March 28, 2025 10:14am [facility] Wellness - HIGH RISK April 09, 2025 [...] section and content) DATE CREATED AUTHOR 08/15/2020 [facility] DATE CREATED AUTHOR AUTHOR'S ORGANIZ ATION 04/11/2023 [facility] DATE CREATED AUTHOR AUTHOR'S ORGANIZ ATION 01/08/2025 [facility] DATE CREATED AUTHOR AUTHOR'S ORGANIZ ATION 04/12/2025 [facility] DATE CREATED AUTHOR AUTHOR'S ORGANIZ ATION 05/12/2025 [facility] EPIC REASON FOR VISIT (unrecogniz ed section and content) ReasonOnset DateCommentsCx PT 01/28/2503 month Follow upHEAD COLD, TIREDLab resultstemp rxomhjlV2G results1 month Follow upTBHMedication Qu estionmessage4 month/suture removaldiscuss wheelchairATBred spot on rightleg/ankle warm to the touch1 weekrefillCOUGHING, WHEEZINGMEDICARE WELLNESSF/U AFTER KRISTOFER S1 LTRELIQUIS BILATERAL S1 TRANSFORAMINAL EPIDURAL STEROID [...] content) Team Status: Active Member Role Status Shannon Vail DO Primary Care Provider Active Team Status: Inactive Member Role Status Dates Robert Vail DO Primary Care Provider Active Start: December 24, 2024 End: December 24, 2024Michael Dunaway , MDAttending ProviderActiveStart: December 24, 2024 End: December 24, 2024 Team Status: Inactive Member Role Status Shannon Vail DO Primary Care Provider Active Start: December 26, 2024 End: December 26, 2024Michael Dunaway MDAttending ProviderActiveStart: December 26, 2024 End: December 26, 2024 Team Status: Active Member Role Status Shannon Vail DO Primary Care Provider Active Start: December 26, 2024 Michael Dunaway MDAttending Provider, Other ProviderActiveStart: December 26, 2024 Team Status: Inactive Member Role Status Shannon Vail DO Primary Care Provide r, Attending Provider Active Start: January 04, 2025 End: January 04, 2025 Team Status: Inactive Member Role Status Shannon Vail DO Primary Care Provider Active Start: January 16, 2025 End: January 16, 2025Michael Dunaway MDAttending ProviderActiveStart: January 16, 2025 End: January 16, 2025 Team Status: Inactive Member Role Status Shannon Vail DO Primary Care Provider Active Start: February 14, 2025 End: February 14, 2025Michael Dunaway MDAttending ProviderActiveStart: February 14, 2025 End: February 14, 2025 Team Status: Active Member Role Status Shannon Vail DO Primary Care Provider Active Start: February 14, 2025 Michaelrancho Dunaway , MDAttending ProviderActiveStart: February 14, 2025 Team Status: Inactive Member Role Status Dates Robert Vail DO Primary Care Provider Active Start: February 26, 2025 End: February 26, 2025Michael Dunaway , MDAttending ProviderActiveStart: February 26, 2025 End: February 26, 2025 Team Status: Active Member Role Status Dates Robert Vail DO Primary Care Provider Active Start: March 12, 2025 Michael Dunaway , MDAttending ProviderActiveStart: March 12, 2025 Team Status: Inactive Member Role Status Dates Robert Vail DO Primary Care Provider Active Start: March 12, 2025 End: March 12, 2025Michael Dunaway , MDAttending ProviderActiveStart: March 12, 2025 End: March 12, 2025 Team Status: Inactive Member Role Status Dates Robert Vail DO Primary Care Provider Active Start: March 20, 2025 End: March 20, 2025Shsunni Dunaway , MDAttending ProviderActiveStart: March 20, 2025 End: March 20, 2025 [...] Start: May 28, 2024 End: May 28, 2024Michael Dunaway MDAttending ProviderActiveStart: May 28, 2024 End: May 28, 2024 Team Status: Inactive Member Role Status Dates Robert Vail DO Primary Care Provider Active Start: June 15, 2024 End: June 15, 2024Michael Dunaway MDAttending ProviderActiveStart: June 15, 2024 End: June 15, 2024 Team Status: Inactive Member Role Status Dates Robert Vial DO Primary Care Provider Active Start: July 31, 2024 End: July 31, 2024Michael Dunaway , MDAttending ProviderActiveStart: July 31, 2024 End: July 31, 2024 Team Status: Inactive Member Role Status Dates Robert Vail DO Primary Care Provide r, Attending Provider Active Start: August 06, 2024 End: August 06, 2024 Team Status: Inactive Member Role Status Dates Robert Vail DO Primary Care Provider Active Start: August 09, 2024 End: August 09, 2024Micheal Dunaway MDAttending ProviderActiveStart: August 09, 2024 End: August 09, 2024 Team Status: Inactive Member Role Status Dates Robert Vail DO Primary Care Provider Active Start: August 10, 2024 End: August 10, 2024Michael Dunaway , MDAttending ProviderActiveStart: August 10, 2024 End: August 10, 2024 Team Status: Active Member Role Status Dates Robert Vail DO Primary Care Provider Active Start: August 10, 2024 Michael Dunaway , MDAttending Provider, Other ProviderActiveStart: August 10, 2024 Team Status: Inactive Member Role Status Shannon Vail DO Primary Care Provider Active Start: August 24, 2024 End: August 24, 2024Michael Dunaway MDAttending ProviderActiveStart: August 24, 2024 End: August 24, 2024 Team Status: Active Member Role Status Shannon Vail DO Primary Care Provider Active Start: May 16, 2024 Yonaatn Cuadra ProviderActiveStart: May 16, 2024 Team Status: Inactive Member [...] Start: April 30, 2024 End: April 30, 2024Michael Dunaway MDAttending ProviderActiveStart: April 30, 2024 End: April 30, 2024 Team Status: Inactive Member Role Status Dates Robert Vail DO Primary Care Provider Active Start: May 07, 2024 End: May 07, 2024Michael Dunaway MDAttending ProviderActiveStart: May 07, 2024 End: May 07, 2024 Team Status: Inactive Member Role Status Shannon Vail DO Primary Care Provider Active Start: May 09, 2024 End: May 09, 2024Michael Dunaway , MDAttending ProviderActiveStart: May 09, 2024 End: May 09, 2024 Team Status: Active Member Role Status Dates Robert Vail DO Primary Care Provider Active Start: May 10, 2024 Michael Dunaway , MDAttending ProviderActiveStart: May 10, 2024 Team Status: Inactive Member Role Status Dates Robert Vail DO Primary Care Provider Active Start: May 10, 2024 End: May 10, 2024Michael Dunaway , MDAttending ProviderActiveStart: May 10, 2024 End: May 10, 2024 Team Status: Active Member Role Status Dates Robert Vail DO Primary Care Provider Active Start: February 17, 2024 Armen Beatty ProviderActiveStart: February 17, 2024 Team Status: Inactive Member Role Status Dates Robert Vail DO Primary Care Provide r, Attending Provider Active Start: February 15, 2024 End: February 15, 2024 Team Status: Inactive Member Role Status Dates Robert Vail DO Primary Care Provider Active Michael Dunaway , MDAttending ProviderActive Team Status: Inactive Member Role Status Dates Robert Vail DO Primary Care Provider Active Maico Lloyd DOAttending ProviderActive Team Status: Active Member Role Status Dates Provider Conversion Attending Provider Active St art: December 09, 2023 Team Status: Inactive Member Role Status Dates Robert Vail DO Primary Care Provider Active Start: January 12, 2024 End: January 12, 2024Juancarlos Campbell , MDAttending ProviderActiveStart: January 12, 2024 End: January 12, 2024 Team Status: Inactive Member Role Status Dates Robert Vail DO Primary Care Provider Active Start: August 28, 2024 End: August 28, 2024Michael Dunaway , MDAttending ProviderActiveStart: August 28, 2024 End: August 28, 2024 Team Status: Active Member Role Status Dates Robert Vail DO Primary Care Provider Active Start: August 28, 2024 Michael Dunaway , MDAttending ProviderActiveStart: August 28, 2024 Team Status: Inactive Member Role Status Dates Robert Vail DO Primary Care Provider Active Start: September 04, 2024 End: September 04, 2024Michael Dunaway , MDAttending ProviderActiveStart: September 04, 2024 End: September 04, 2024 Team Status: Inactive Member Role Status Dates Robert Vail DO Primary Care Provide r, Attending Provider Active Start: December 07, 2024 End: December 07, 2024 Team Status: Inactive Member Role Status Dates Robert Vail DO Primary Care Provider Active Start: December 10, 2024 End: December 10, 2024Michael Dunaway MDAttending ProviderActiveStart: December 10, 2024 End: December 10, 2024Team MemberRelationshipSpecialtyStart DateEnd Date Robert Vail MD [address] [facility] [place] [phone] PCP - GeneralInternal Medicine04/03/24Team MemberRelationshipSpecialtyStart Date End Date Robert Vail MD [address] [facility] [place] [phone] PCP - GeneralInternal Medicine04/03/24Team MemberRelationshipSpecialtyStart Date End Date Robert Vail MD [address] [facility] [place] [phone] PCP - GeneralInternal Medicine04/03/24Team MemberRelationshipSpecialtyStart Date End Date Robert Vail MD [address] [facility] [place] [phone] PCP - GeneralInternal Medicine04/03/24Team MemberRelationshipSpecialtyStart Date End Date Robert Vail MD [address] [facility] [place] [phone] PCP - GeneralInternal Medicine04/03/24Team MemberRelationshipSpecialtyStart Date End Date Robert Vail MD [address] [facility] [place] [address] PCP - GeneralInternal Medicine04/03/24Team MemberRelationshipSpecialtyStart Date End Date Robert Vail MD [address] [facility] [place] [phone] PCP - GeneralInternal Medicine04/03/24Team MemberRelationshipSpecialtyStart Date End Date Robert Vail MD [address] [facility] [place] [address] PCP - GeneralInternal Medicine04/03/24Team MemberRelationshipSpecialtyStart Date End Date Robert Vail MD [address] [facility] [place] [phone] PCP - GeneralInternal Medicine04/03/24Team MemberRelationshipSpecialtyStart Date End Date Robert Vail MD PCP - GeneralInternal Medicine04/03/24Team MemberRelationshipSpecialtyStart Date End Date Robert Vail MD PCP - GeneralInternal Medicine04/03/24Team MemberRelationshipSpecialtyStart Date End Date Robert Vail MD PCP - GeneralInternal Medicine04/03/24Team MemberRelationshipSpecialtyStart Date End Date Robert Vail MD PCP - GeneralInternal Medicine04/03/24 Team Status: Inactive Member Role Status Dates Robert Vail DO Primary Care Provider Active Start: March 28, 2025 End: March 28, 2025Michael Dunaway MDAttmelvin ProviderActiveStart: March 28, 2025 End: March 28, 2025Team MemberRelationshipSpecialtyStart DateEnd Date Robert Vail DO PCP - GeneralInternal Medicine04/03/24Team MemberRelationshipSpecialtyStart Date End Date Robert Vail DO PCP - [facility]04/03/24Team MemberRelationshipSpecialtyStart Date End Date Robert Vail DO PCP - [facility]04/03/24Team MemberRelationshipSpecialtyStart Date End Date Robert Vail DO PCP - [facility]04/03/24Team MemberRelationshipSpecialtyStart Date End Date Robert Vail DO PCP - [facility]04/03/24 Team Status: Inactive Member Role Status Dates Robert Vail DO Primary Care Provide r, Attending Provider Active Start: April 09, 2025 End: April 09, 2025Team MemberRelationshipSpecialtyStart DateEnd Date Robert Vail DO PCP - [facility]04/03/24Team MemberRelationshipSpecialtyStart Date End Date Robert Vail DO PCP - [facility]04/03/24Team MemberRelationshipSpecialtyStart Date End Date Robert Vail DO PCP - [facility]04/03/24Team MemberRelationshipSpecialtyStart Date End Date Robert Vail DO PCP - [facility]04/03/24Team MemberRelationshipSpecialtyStart Date End Date Robert Vail DO PCP - [facility]04/03/24Team MemberRelationshipSpecialtyStart Date End Date Robert Vail DO PCP - [facility]04/03/24 Team Status: Inactive Member Role Status Dates Robert Vail DO Primary Care Provider Active Start: April 15, 2025 End: April 15, 2025Shon Cortezending ProviderActiveStart: April 15, 2025 End: April 15, 2025 Team Status: Active Member Role Status Dates Robert Vail DO Primary Care Provide r, Attending Provider Active Start: April 18, 2025 Team Status: Inactive Member Role Status Dates Robert Vail DO Primary Care Provider Active Start: May 06, 2025 End: May 06, 2025Michael Dunaway MDAttmelvin ProviderActiveStart: May 06, 2025 End: May 06, 2025 Team Status: Inactive Member Role Status Dates Robert Vail DO Primary Care Provide r, Attending Provider Active Start: May 06, 2025 End: May 06, 2025 Team Status: Inactive Member Role Status Dates Robert Vail DO Primary Care Provider Active Start: April 09, 2025 End: April 09anushka Vail DOAttmelvin ProviderActiveStart: April 09, 2025 End: April 09, 2025 Team Status: Active Member Role Status Dates Robert Vail DO Primary Care Provider Active Start: April 18, 2025 Bladimir Brower ProviderActiveStart: April 18, 2025 Team Status: Inactive Member Role Status Dates Robert Vail DO Primary Care Provider Active Start: May 06, 2025 End: May 06anushka Vail DOAttending ProviderActiveStart: May 06, 2025 End: May 06, 2025 Team Status: Inactive Member Role Status Dates Robert Vail DO Primary Care Provider Active Start: May 16, 2025 End: May 16enmeagan Vail DOAttending ProviderActiveStart: May 16, 2025 End: May 16, 2025 Team Status: Inactive Member Role Status Dates Robert Vail DO Primary Care Provider Active Start: June 14, 2025 End: June 14, 2025Morena Donato APRN [employer]PERATOR TRUCK DRIVER-CAttending ProviderActive Start: June 14, 2025 End: June 14, 2025 Team Status: Inactive Member Role Status Shannon Vail DO Primary Care Provider Active Start: June 18, 2025 End: June 18enmeagan Vail DOAttending ProviderActiveStart: June 18, 2025 End: June 18, 2025 Team Status: Inactive Member Role Status Shannon Vail DO Primary Care Provider Active Start: August 12, 2025 End: August 12enmeagan Vail DOAttending ProviderActiveStart: August 12, 2025 End: August 12, 2025 [...] ON THE PRIMARY CLINICAL RECORDS. [facility] [employer] provides no warranty or guarantee of the accuracy or completeness of information in this document.
== END 2025-09-18 10:34 | disposition home or self-care (01) ==
LOC: WC 10:33
PROVIDERS: PCP Internal Medicine; Visit Provider Physician Assistant
DX: I87.311 Chronic venous hypertension (idiopathic) with ulcer of right lower extremity (principal); L97.812 Non-pressure chronic ulcer of other part of right lower leg with fat layer exposed
CPT/HCPCS: 29580

== ENCOUNTER 2025-09-28 | Outpatient (RCR) | payer MEDICARE, OTHER, SELFPAY | END 2025-10-27 23:59 | disposition home or self-care (01) | LOC: MM | PROVIDERS: PCP Internal Medicine; Visit Provider Internal Medicine | DX: Z51.81 Encounter for therapeutic drug level monitoring (principal); Z79.01 Long term (current) use of anticoagulants; I82.409 Acute embolism and thrombosis of unspecified deep veins of unspecified lower extremity | CPT/HCPCS: 85610; G0463 ==

== ENCOUNTER 2025-10-02 09:55 | Outpatient (OUT) | payer MEDICARE, OTHER, SELFPAY ==
--- OUTSIDE RECORDS SUMMARY | 2025-09-23 07:44 | XMS_ITS | Continuity of Care Document ---
Author Organization [facility] Address [address] [place] [address] Phone Care Team Providers Care Orchid Transplanter Name Role Phone Robert Lopez DO Primary Care Provider Robert Lopez DO Attending Provider [phone] Michael Dunaway MD Attending Provider [phone] Care Teams Patient Care Team Team Status: Active Member Role/Relationship Status Dates Robert Lopez DO Primary Care Provider Active Visit Care Team Team Status: Inactive Member Role/Relationship Status Dates Robert Lopez DO Primary Care Provider Active Start: August 12, 2025 End: August 12anushka Lopez DOAttmelvin ProviderActiveStart: August 12, 2025 End: August 12, 2025 Patient Care Team Team Status: Inactive Member Role/Relationship Status Dates Robert Lopez DO Primary Care Provider Active Start: September 23, 2025 End: September 23, 2025Michael Dunaway MDAttmelvin ProviderActiveStart: September 23, 2025 End: September 23, 2025 Chief Complaint and Reason for Visit Chief Complaint Admit Date 4 month f/u August 12, 2025 10:31am siatic pain September 23, 2025 1 2:00pm Reason for Visit Admit Date Anticoagulant long-term use August 122024 10:31am Generalized seizure disorder July 292024 10:31am Hypercholesteremia August 12, 2025 10:31am Hypertension August 12, 2025 10:31am Obesity Phyllis 15th, 2025 10:31am KERMIT (obstructive sleep apnea) August 12, 2025 10:31am Thrombophilia August 12, 2025 10:31am Type 2 diabetes mellitus with hyperglyce osmar August 12, 2025 10:31am Venous hypertension, chronic, with ulcer August 12, 2025 10:31am Anticoagulant long-term use August 12:00pm Other chronic pain September 23, 2025 1 2:00pm Post laminectomy syndrome September 23, 2025 12:00pm Sacroiliitis September 23, 2025 1 2:00pm Allergies, Adverse Reactions, Alerts Allergen Type Severity Reaction Last Updated Verified Status celecoxib Allergy Unknown Hives September 23, 2025 12:23pm Yes Active Penicillins Allergy Unknown Hives September 23, 2025 12:23pm Y es Active Social History Smoking Status Status Start Date End Date Date of Observa tion Ex-smoker (finding) March 20, 2025 1:53pm Observation Status Observation Response Date of Response Legal Sex [facility] (finding[facility] [place] [facility] Family History Relationship Condition Age at Onset Recorded Date/T mg mother Heart disease Unknown Cerebrovascular accident (CVA)UnknownHistory of strokeUnknownfatherDeceased Unknown Problems Active Problems Problem Diagnosis/Recorded Date Onset Date Status C omments Gastroesophageal reflux dise ase with esophagitis without hemorrhage February 14, 2024 12:58pm Unknown Active KERMIT (obstructive sleep apnea)February 14, 2024 12:58pmUnknownActiveType 2 diabetes mellitus with hyperglycemiaMay 2023 11:01pmUnknownActive SacroiliitisSeptember 2023 11:10amUnknownActiveSimple chronic bronchitis February 14, 2024 12:58pmUnknownActiveMammogram declinedMay 2024 7:19am UnknownActiveGeneralized seizure disorderMarch 2023 12:58pmUnknownActive AnemiaMay 2024 11:10amUnknownActiveAnticoagulant long-term useMarch 2023 12:58pmUnknownActiveCellulitisJuly 2024 12:03pmUnknownActive HypercholesteremiaJuly 2021 12:43pmUnknownActiveVenous hypertension, chronic, with ulcerSeptember 2024 11:13amUnknownActiveLumbosacral spondylosisMarch 2023 12:58pmUnknownActiveOther chronic painJune 2024 12:22pmUnknownActiveNoninfected skin tear of right lower extremityJune 2024 1:51pmUnknownActiveSkin tearJuly 2024 12:03pmUnknownActiveSeasonal allergic rhinitis due to pollenMarch 2023 12:58pmUnknownActive ThrombophiliaMarch 2023 7:24amUnknownActivePost laminectomy syndromeMarch 2023 12:58pmUnknownActiveIschial bursitisJune 2023 3:20pmUnknown ActiveChronic venous insufficiencyMarch 2023 7:25amUnknownActive HypertensionApril 2021 8:52pmUnknownActiveObesitySeptember 2024 11:16amUnknownActiveInactive/Resolved Problems Problem Diagnosis/Recorded Date Onset Date Status C omments Shortness of breath March 24, 2022 10:27pm Unknown Re solved Problem List clean-up per request of Phys. EHR Cmte Calf pain March 24, 2022 9:25pm Unknown Resolved P roblem List clean-up per request of Phys. EHR Cmte Medications Medication Status Dose Units Route Directions Qty Days Refills S tart Date Stop Date End Date Reason(s) Instructions Adherence Atorvastatin 20 mg tablet Discontinued 20 MG PO Daily 90 90 3 March 12, 2024 6:04pm March 18, 2025 6:31pmLevetiracetam 500 mg zubcdjRhsdhnvrfnkf226BAOGNrfoa daily 134496Itnvi 2023 6:04pmOctober 2023 4:21pmLosartan 50 mg tablet Pmbloerrnwtu73YNXYSlmde68550Atuts 2023 6:05pmApril 2024 6:31pm Potassium Chloride 10 mEq capsule, extended qqjehfrTqokeedwogrc73DNSHNPwhjh61964 March 12, 2024 6:05pmApril 2024 6:31pmPolysaccharide Iron Complex (Ferrex 150) 150 mg iron capsuleDiscontinued0.ROUTE.UEHWCIL916Jtnylmtil 2023 12:37pmJanuary 2024 2:45pmTAKE 1 CAPSULE BY MOUTH DAILYFurosemide 20 mg edvmjlOveopyznxegx81AQZBRbgyu dailyOctober 2023 12:00amOctober 2023 4:21pmFurosemide 20 mg aqakjkVihugo69BKOFWfnhp mwnmz591001Hiyzjzt 2023 4:20pmComplies with drug therapyLevetiracetam 500 mg eysckyRuhbasdootoe865 MGPOTwice fqenu122490Jsyecpt 2023 4:21pmJuly 2024 2:46pmWarfarin 5 mg tabletDiscontinued0.ROUTE.OVJUGKE9953Qlxvyoe 2024 6:15pmApril 2024 1:38pmTAKE 1 TABLET BY MOUTH DAILYEnoxaparin (Lovenox) 120 mg/0.8 mL pytrzbiEaoixdfhzmyb6BLSAIHJhomb 12 hours4.860January 2024 1:00amJanuary 2024 6:34pmsubcutaneously every 12 hours; Start 3 days prior to surgery, hold on morning of surgery, restart when surgeon determines safe.Enoxaparin 120 mg/0.8 mL syringeDiscontinued0.ROUTE.COMPLEX4.80January 2024 6:34pmApril 2024 1:35pmINJECT 1 syringe EVERY 12 HOURS FOR 6 DAYSDoxycycline Hyclate 100 mg xrucbqpTsnddjladwje431ABIHLkpou wlnpq3219Isdhxawm 2024 1:46pmMay 2024 10:23amAtorvastatin 20 mg tabletDiscontinued0.ROUTE.MXDUGTY564Ypygw 2024 6:30pmJuly 2024 2:46pmTAKE 1 TABLET EVERY DAYLosartan 50 mg tabletDiscontinued0.ROUTE.RQSYMVG923Gjcng 2024 6:31pmJuly 2024 2:46pmTAKE 1 TABLET EVERY DAYPotassium Chloride 10 mEq capsule, extended release Discontinued0.ROUTE.ZXVCJYN389Aibmu 2024 6:31pmSeptember 2024 11:09amTAKE 1 CAPSULE EVERY DAYEmpagliflozin (Jardiance) 10 mg tablet Duisaqonmqop16ANQEWlpfq nkihwoi08480Hpd 2024 12:00amSeptember 2024 11:06amLosartan 50 mg wztatbTuwrvlhjusfl47LXIBWwwkiOida 2021 12:00amMarch 2023 1:06pmPotassium Chloride 10 mEq capsule, extended releaseDiscontinued 10MEQPODailyJune 2021 12:00amMarch 2023 1:06pmDoxycycline Hyclate 100 mg jioqagrVpfsgudcvonb947DAPSXszsvKmuh 2021 12:00amJuly 2021 10:21am Atorvastatin 20 mg dayjjaNowqgieldeyl46AOZKZjgpbHcos 2021 12:00amApril 2023 6:05pmAlendronate 70 mg gihhleMrekthyibrjg45ATWIpppqd weekJun2021 12:00amJuly 2021 10:21amPhenytoin Sodium Extended 100 mg capsule Lsoqlfeewriw496SQWRJuhmy times dailyJune 2021 12:00amJuly 2021 10:21amApixaban (Eliquis) 5 mg dycpdzMypnbnkbprya1IBGJXnuxhMazm 2021 12:00amJuly 2023 2:24pmLevetiracetam 500 mg laoovnHszsbxkghvze130HHBLYuazi May 05, 2022 12:00amMarch 2023 1:06pmLevetiracetam 500 mg tablet Dirgfniadghq168VPXAEgpqc dailyMarch 2023 1:04pmApril 2023 5:05pm Polysaccharide Iron Complex (Ferrex 150) 150 mg iron kbuctewIghziqbyskpt110QQLM DailyJuly 2021 12:00amMarch 2023 3:00pmFerrous Sulfate 325 mg (65 mg iron) ZjmsswTtibrzhhnqyg959QHUSOcgxkLpty 2021 12:00amJuly 2021 10:22amWarfarin 2.5 mg tabletDiscontinued2.5MGPOTwice a WeekSeptember 2023 12:00amApril 2024 1:38pmPolysaccharide Iron Complex (Ferrex 150) 150 mg iron mjjvsfiGyrppuyhcvnm980EENEjytap other daySeptember 2023 12:00am August 27, 2024 12:37pmWarfarin 2.5 mg tabletDiscontinued2.5MGPO3 Times a weekApril 2024 1:36pmSeptember 2024 11:08amInhalational Spacing Device (Aerochamber Mini) spacerActive0.RouteMarch 2023 12:00amAs directed Albuterol Sulfate 90 mcg/actuation HFA aerosol dioahtaYzbsyehouihx1UYCW INHALATIONEvery 4 hoursMar 2023 12:00amJuly 2023 2:24pmAlendronate 5 mg klqpsaFratsimtcuno7VJZVRolfc 2023 12:00amMay 2023 11:00am1 tablet 30 minutes before the first food, beverage or medicine of the day with plain water Orally Once a dayFexofenadine (Carole Allergy) 180 mg tablet Nsezyhujsczm953KNGOEhdej as needed for allergic symptomsMar 2023 12:00am March 20, 2025 1:35pmBenzonatate 200 mg iordhxuDsjxspxgthdi259VVCCEdlsm times dailySum[facility] 2023 12:00amJune 2023 3:05pmBenzonatate 100 mg capsule Zssrvcahazfd098EYZAHfznx times dailySum[facility] 2023 12:00amJune 2023 3:05pmColestipol 1 gram bipqrfXqoomktezgjk8ONPNQmwdwHmcki 2023 12:00amJuly 2023 2:25pmFurosemide 40 mg exhsgkXckbhzcvbast34NEHCFpreoWsgup 2023 12:00amOctober 2023 3:26pmHydrocodone-Acetaminophen 5-325 mg tablet Jilrsdlmuclm2MKNGTVvhnw tnqwl8Gjtlk 2023 12:00amMay 2023 11:00am Levetiracetam 500 mg bxzimiIfywuxlyokxe907CANKPekqkEiyoy 2023 12:00amApril 2023 5:05pmLosartan 50 mg pkdrghSvpdbfvsuhld46KCBWCwknrSrkgo 2023 12:00amApril 2023 6:05pmPotassium Chloride 10 mEq capsule, extended xbuxusmBfykmofhlpzt94JSIUPYdhykOiqds 2023 12:00amApril 2023 6:05pm Tramadol 50 mg opohboYqlflmwrvqjb56UZACZccxg at bedtimeSum[facility] Health [facility] 2023 12:00am March 29, 2024 11:00amDoxycycline Hyclate 100 mg vqfzuqxXiuzpcuytwag368LRWUKgfez tynrs30150Faens 2023 12:00amJuly 2023 2:25pmPolysaccharide Iron Complex (Ferrex 150) 150 mg iron tgcjbepDlsppuyoomby415RVAKRtpoy05393Lsils 2023 3:00pmSeptember 2023 12:24pmLevetiracetam 500 mg tabletDiscontinued 750MGPOTwice dailyAprmi 2023 5:05pmApril 2023 6:05pmWarfarin 5 mg bypbkrBzsqumafxdqg8WHWR9 times per weekAprmi 2024 1:37pmSeptember 2024 11:11amAtorvastatin 20 mg crfvsrDreenf59MIIOGzbxw pkezyys32764Qzufafxoa 2024 11:06amComplies with drug therapyLevetiracetam 500 mg lmxrfsYctizf131 MGPOTwice rzara867925Bphgyrwoh 2024 11:07amComplies with drug therapy Losartan 50 mg yljaqmMkrlhq61VKPOXmosu74822Czuntukqy 2024 11:07amComplies with drug therapyPotassium Chloride 10 mEq capsule, extended releaseActive0 .ROUTE.AYKRVGB795Qtbnvsgfd 2024 11:07amTAKE 1 CAPSULE EVERY DAYComplies with drug therapyWarfarin 5 mg ojjcbiDqsfsq7NQMU.VRBWRAD19920Pgumiwrqr 2024 11:10am5 mg orally; as directed by coumadin clinicComplies with drug therapyPolysaccharide Iron Complex (Ferrex 150) 150 mg iron ekwpnsySqbfpw006GCTL Rljyp24243Oszxtuhih 2024 11:10amComplies with drug therapyLevetiracetam 500 mg ktjlzbCnbjcmxpgibx209VZWHDhlzo nhmhq983807Ixyn 2024 2:42pmSeptember 2024 11:09amLosartan 50 mg dhccjeLmmlilvejmiw74HXESJgcai97820Wqen 2024 2:42pmSeptember 2024 11:09amAtorvastatin 20 mg wihlrtYmzmpaleywvy75ME POEvery kfnpidl56245Nudx 2024 2:44pmSeptember 2024 11:09am Doxycycline Monohydrate 100 mg fixkjuGrsuulthcucd736UVOLDlqgk ugmhk15489Plrw 2024 12:00amSeptember 2024 10:32amMupirocin 2 % ointmentActive1 APPLICTOPICALTwice gowbs348Wycx 2024 12:00amCellulitis Skin tear Cellulitis, unspecifiedComplies with drug therapyWarfarin 5 mg tablet Dhhtwisvkxej7DBJH4 TIMES PER WEEKJuly 2023 12:00amJanuary 2024 6:16pm Polysaccharide Iron Complex (Ferrex 150) 150 mg iron nljjenxVfcnjawzoxvm979VNHW DailyJanuary 2024 2:45pmSeptember 2024 11:11amDoxycycline Hyclate 100 mg itdqjyaUkfgncynbydo618FUMCQxfie cjkhq8603Zdzjzmux 2024 1:00am January 16, 2025 1:46pm Immunizations Immunization Event Date Not Given Reason Dose Number Inventory Management Specialist Lot Number Reason(s) Given Vaccine Information Statement (VIS) Detail Administration Location COVID-19 mRNAGrazyna (Eventstagr.am) January 21, 2021 COVID-19 mRNAGrazyna (Eventstagr.am)February 11OVID-19 mRNAGrazyna (Eventstagr.am)October 05, 2021Fluzone TIV High-Dose 65YR+August 06, [id number] [facility]Fl[facility] 65YR+August 17, 2017Fluzone TIV High-Dose 65YR+August 12, [id number] [facility] DallasInfluenza, trivalentOctober 2017Influenza vaccine, quadrivalent, adjuvantedNovember , 2021influenza, unspecified formulationSeptember , 2014influenza, unspecified formulationMarch 2016influenza, unspecified formulation August 17, 2017influenza, unspecified formulationOctober , 2017 influenza, unspecified formulationOctober 2018influenza, unspecified formulationSeptember , 2019influenza, unspecified formulationOctober , 2020influenza, unspecified formulationNovember , 2021influenza, unspecified formulationNovember , 2021influenza, unspecified formulationSeptember , 3Pneumococcal Conjugate Vaccine, 13 valentNovember 2014Pneumococcal Polysacc. Vaccine, 23 valentAugust , 2008Pneumococcal Polysacc. Vaccine, 23 valentSeptember 2016Quadrivalent InfluenzaNovember 2017Tetanus, Diphtheria adult, 5 Lf pres free absSeptember , 2011Tetanus, Diphtheria adult, 5 Lf pres free absSeptember , 2012Tetanus, Diphtheria adult, 5 Lf pres free absOctober , 2013Shingles (Zoster)June 04, 2011 Medical Equipment Device Date Implanted Device Details Video capsule endoscopy system May 05, 2022 U DI: [id number] Issuing Agency: [employer] Device Id: [id number] Expiration Date: 2023-01-06 Vital Signs Vital Reading Result Reference Range Collection Date/Time Height 60 [in_i] August 12, 2025 10:61lcHlrhkx415.77 kgSeptember 2024 10:45amHeart Rate81 /nkt30-525Jjtwyfdbg 15th, 2025 10:45amRespiratory rate12 /bhs63-03 August 12, 2025 10:45amBP Ingsgiiv547 mm[Hg]100-140September 2024 10:45amBP Celpnlzig62 mm[Hg]60-100September 2024 10:45amBMI (Body Mass Index)54.6 kg/g3Oosamehdl 2024 10:45amHeart Rate71 /zpj17-912Eucqrwh 2024 12:26pmOxygen saturation by Pulse %95-100Oct2024 12:26pmBP Qtfcnftj909 mm[Hg]100-140October 2024 12:26pmBP Dckymkzar27 mm[Hg]60-100Octwh[facility] 2024 12:26pm Advance Directives Advance Directive Response Recorded Date/ Time Advance Directives No March 20 1:53pm Insurance Providers Guarantor Sandra Tavarze Address [address] [facility] [address]Zfgqoxh Info.Home Phone: Coverage Status Update:2024 Payer Group Member ID Coverage Type Subscriber Relationship to Subscriber Effective Date Expiration Date Medicare [id number] K Gray Id: [id number] [address] [place] [address] Home Phone: [employer] [id number] K Gray Id: [id number] [address] [place] [address] Home Phone: Self Encounters Encounter Location(s) Arrival/Admit Date Discharge/Departure Date Discharge/Departure Disposition Provider(s) Departed Physician/ Provider Office Visit -[facility] August 12, 2025 10:31am August 12, 2025 11:15am Discharged to home care or self care (routine discharge) Robert Lopez DO Departed Physician/ Provider Office Visit -[facility] September 23, 2025 12:00pm September 23, 2025 12:43pm Discharged to home care or self care (routine discharge) Michael Dunaway MD Recent Diagnosis Onset Date Admit Date Anticoagulant long-term use Unknown Jul emb2024 10:31am Generalized seizure disorder Unknown Sep tember 2024 10:31am Hypercholesteremia Unknown July 10:31am Hypertension Unknown August 12, 2025 10:31am Obesity Unknown August 12, 2025 10:31am KERMIT (obstructive sleep apnea) Unknown Se ptember 2024 10:31am Thrombophilia Unknown August 12, 2025 10:31am Type 2 diabetes mellitus with hyperglycemia Unkn own August 12, 2025 10:31am Venous hypertension, chronic, with ulcer Unknown August 12, 2025 10:31am Anticoagulant long-term use Unknown Octo evette 2024 12:00pm Other chronic pain Unknown September 23, 2025 12:00pm Post laminectomy syndrome Unknown Octobe r 2024 12:00pm Sacroiliitis Unknown September 23 12:00pm Assessments Diagnosis Onset Date Resolution Status Admit Date Anticoagulant long-term use acuteSeptember 2024 10:31amGeneralized seizure disorderacuteSeptember 2024 10:31amHypercholesteremiaacuteSeptember 2024 10:31am HypertensionacuteSeptember 2024 10:31amObesityacuteSeptember 2024 10:31amOSA (obstructive sleep apnea)acuteSeptember 2024 10:31am ThrombophiliaacuteSeptember 2024 10:31amType 2 diabetes mellitus with hyperglycemiaacuteSeptember 2024 10:31amVenous hypertension, chronic, with ulceracuteSeptember 2024 10:31amAnticoagulant long-term useacuteOctober 2024 12:00pmOther chronic painacuteOctober 2024 12:00pmPost laminectomy syndromeacuteOctober 2024 12:00pmSacroiliitisacuteOctober 2024 12:00pm Plan of Treatment Author Robert Lopez [facility] CenterAuthoredSeptember 2024 11:17amI have instructed this patient to follow a comprehensive diabetic treatment plan. I have also instructed them to check their feet daily for calluses and nonhealing ulcers. I have instructed them to have a yearly dilated eye examination. I have reviewed their treatment goals: SBP less than 130, LDL less than 100, FBS less than 140, A1C less than 7%. I have instructed them to maintain a home BS log and bring the results to each of their office visits for review. I have explained the importance of routine monitoring of their A1C, Microalbumin and Lipids. I have explained the benefits of well controlled diabetes in preventing micro and macrovascular complications. I have instructed this patient to consume a healthy, low-fat, low-salt diet. I have also encouraged them to continue exercise with weight loss to achieve/maintain a BMI < 30. I have instructed this patient on the correct procedure for obtaining home BP measurements:? - rest for 5 minutes w/o talking. - positioned w/ feet on floor and arms supported. - average best 2/3 readings w/ goal < 135/85. - update office w/ home readings in 2 weeks. Continue Losartan without interruption Continue lifelong AC w/ Warfarin. Monitor for bleeding complications: denies epistaxis, hemoptysis, hematuria, melena or hematochezia This patient is aware of the benefits associated with KERMIT: With continued use, the patient reduces the risk for ND, CVA, HTN, cardiac dysrhythmias and sudden cardiac deaths. The patient is also aware of the association between KERMIT and morning headaches, daytime somnolence, fatigue and obesity, which also has been improved with continued use. The patient is compliant with treatment, wearing the equipment every night for greater than 4 hours. The patient is instructed to continue use of the CPAP for KERMIT treatment. Compliant No seizure activity Continue medication w/o interruption. f/u Neurology I have instructed this patient on a low fat, high fiber diet and exercise. I have discussed the primary and secondary prevention benefits attributed to lowering LDL cholesterol. I have also discussed the medical treatment of elevated cholesterol, which is based on the 10 year ASCVD risk. s/p cauterized with silver nitrate stick on 05/06/25 to control bleeding. Instructed to cleanse w/ soap and water and apply Mupirocin ointment. She was referred to the [facility] and has Home Health coming for bandages changes 3x weekly. It is slowly retracting and is w/o s/s infection. Mild bleeding on bandages. Continue present treatment Hypercoagulable state w/ chronic Warfarin therapy INR goal 2-3 No bleeding complications Denies hematemesis, hemoptysis, hematuria, melena or hematochezia I have instructed this patient on a low-fat, high-fiber diet.?? I have also instructed them to reduce calories, portions sizes, sweet drinks and snacks.?? I have also recommended they exercise for 30 minutes, 3-5 times weekly. They are aware of the comorbid conditions associated with excessive weight: Diabetes, HTN, Hyperlipidemia, CAD and arthritis. Author Viky Mallory [facility] CenterAuthoredOct2024 12:42pm84 year old female here for follow up to discuss chronic pain. She was last seen April 2025. She voices complaints of low back and right hip pain with radiation down the right lower extremity to the foot. She has numbness/tingling in the RLE. She continues to have an open wound to the right lower extremity, she is seeing wound care for this. Anatomy of spine discussed in detail with patient in regards to patients condition. Patient is a candidate for a caudal epidural steroid injection with a RACZ catheter under fluoroscopic guidance. Risks and benefits of procedure explained to patient; patient verbalizes understanding. Consider proceeding with a sacroiliac joint injection under fluoroscopic guidance. Continue with current treatment plan Patient is currently taking Warfarin. She is aware she must hold this for 5 days prior to procedure. She must also have her PT/INR checked donna day prior to injection. Future Tests Future scheduled test information is unavailable Pending Tests Pending diagnostic test information is unavailable Future Visits Future appointment information is unavailable Future Procedures Procedure Name Ordered Date Scheduled Date Prothrombin Time INR September 23, 2025 12:41pm Future Medications Future medication information is unavailable Patient Instructions Patient instructions are unavailable
--- OUTSIDE RECORDS SUMMARY | 2025-10-02 09:58 | XMS_ITS | Clinical Summary ---
Author Organization [facility] Address [id number] [address] [place] [address] Care Team Providers Care Supply Chain Associate Name Role Phone Robert Lopez Primary Care Provider [phone] Allergies Active AllergyReactionsCriticalityNoted DateCommentsAdhesive Tape-SiliconesRash Low03/08/20173815TwxyjxrnpCqbtozc26/19/0309KbbyqlmulvlSgxaxzl87/19/2017 Medications MedicationSigDispense QuantityRefillsLast FilledStart DateEnd DateStatus atorvastatin (LIPITOR) 20 mg tablet Take 20 mg by mouth once.Active levETIRAcetam (KEPPRA) 500 mg tablet Take 750 mg by mouth in the morning and 750 mg before bedtime.Active potassium chloride (K-DUR) 10 MEQ CR tablet Take 10 mEq by mouth once.10/06/2015ctive furosemide (LASIX) 40 mg tablet Take 40 mg by mouth once.09/08/2015ctive losartan (COZAAR) 25 mg tablet Take 50 mg by mouth once.Active IRON, FERROUS SULFATE, ORAL Take 324 mg by mouth once.Active alendronate (FOSAMAX) 70 mg tablet Take 70 mg by mouth once a week. Qcthrvem84/21/2021ctive ELIQUIS 5 mg tablet Take 5 mg by mouth 2 (two) times a day.05/16/2022ctive Active Problems ProblemNoted DateDiagnosed DateIron deficiency anemia due to chronic blood loss 05/14/2022History of pulmonary cxjltggu09/09/2020Anticoagulation management joysrwnhs87/09/1772Rbkkon62/11/6073Obezsuqrjxvs47/11/2017Morbid (severe) obesity due to excess ajidddzk08/02/2015Thyroid lump02/06/20157151Enobnfidpupv76/05/2015 Morbid obesityAdrenal massLumbar stenosis with neurogenic claudication Spondylolisthesis at L4-L5 levelHLD (hyperlipidemia)Sleep apneaSpinal stenosis Resolved Problems ProblemNoted DateDiagnosed DateResolved DateLong term (current) use of anticoagulants [Z79.01]Multiple pulmonary rphwha8301/16/2017 01/21/2017Pulmonary srmuyelo28 Family History Medical HistoryRelationNameCommentsCancerFatherHeart attackFatherStrokeMaternal GrandmotherArthritisMotherStrokeMotherDiabetesSisterHypertensionSisterRelation NameStatusCommentsFatherMaternal GrandmotherMotherSister Social History Tobacco UseTypesPacks/DayYears UsedDateSmoking Tobacco: FormerCigarettesQuit: 11/08/1992Smokeless Tobacco: NeverAlcohol UseStandard Drinks/WeekCommentsNo0 (1 standard drink = 0.6 oz pure alcohol)ChildcareAnswerDate RecordedChildcare Spsengp9205/09/2019EmploymentAnswerDate CeetbzhiXtrprhlqgxLkqpyho10/12/2019Purpose - LifeAnswerDate RecordedPurpose and direction in hntxGenfmwj96/19/2021 CommentsNoSex and Gender InformationValueDate RecordedSex Assigned at BirthNot on fileLegal PrxGlhwid51/06/2015 11:22 AM EDTGender IdentityNot on fileSexual OrientationNot on file Last Filed Vital Signs Vital SignReadingTime TakenCommentsBlood Jthrmrzd787/8111 2:22 PM EST Aqhdp80765/18/2022 2:22 PM QZTNarojiqgnto89.9 ??C (98.4 ??F)10/15/2022 2:22 PM ESTRespiratory Pkrl5286 2:22 PM ESTOxygen Gbczvueeow98%10/15/2022 2:22 PM ESTInhaled Oxygen Concentration--Dsylmv412 kg (280 lb)10/15/2022 2:22 PM EST Ngiojm684 cm (4' 11.84 )10/15/2022 2:22 PM ESTBody Mass Index54.9710/15/2022 2:22 PM EST Plan of Treatment Health MaintenanceDue DateLast DoneCommentsDepression Ehdzacvie92/14/1954Tobacco Dpgdfzyyj46/14/1954DTaP,Tdap and Td Vaccines (1 - Tdap)1960Fall Risk Txaunfklf59/14/2007Zoster (Shingles) Vaccine (2 of 3)RSV ( or age 60+ yrs) (1 - 1-dose 75+ series)2016COVID-19 Vaccine (4 - season)/06/2021, 02/11/2021, 01/21/2021Influenza Vaccine /, 10/11/2018, 09/18/2018, Additional history exists Goals GoalPatient Goal TypeAssociated ProblemsRecent ProgressPatient-Stated?Author discharge home Flora Sanabria RN Note: Evaluation of progress towards goal: Pt reports she is independent with care but does have childrenthat live near by to help if needed. Denies needs for home Medical Devices [place] [address] Advance Directives * Full Code (Latest Code Status on File) Date ActivatedDate InactivatedComments01/16/2017 4:15 PM2 6:55 PM Care Teams Team MemberRelationshipSpecialtyStart [place] [address] [place] [address] PCP - General01/19/13
--- OUTSIDE RECORDS SUMMARY | 2025-10-02 09:58 | XMS_ITS | Clinical Summary ---
Author Organization [facility] Address [address] [place] [address] Care Team Providers Care Peer Educator Name Role Phone Unavailable Primary Care Provider Unavailabl e Allergies Active AllergyReactionsCriticalityNoted DateCommentsAdhesive Tape (Rosins)Rash 04/03/20151978JkschqfjdNxcjyouj98/19/8083UqgpvulwcpzLdsjwvdj47/19/2015 Medications MedicationSigDispense QuantityRefillsLast FilledStart DateEnd DateStatus phenytoin [...] ProblemNoted DateDiagnosed DateBilateral leg edema07/08/2015Delayed surgical wound pcyizaa4006/06/2015Delayed wound dgytcsl7204/29/2015Morbid obesity with BMI of 50.0-59.9, adult04/29/2015S/P laminectomy with spinal dfuhfi2304/29/2015Pulmonary xzelbhbf23/07/2015drenal mass02/06/2015Thyroid mass02/06/2015Thoracic compression ipywldvo29/05/1789Blpejqptzolv62/05/2015Preoperative cardiovascular kossaolprvl79/24/2015Lumbar stenosis with neurogenic atwswsirfrlw94/19/2015 Spondylolisthesis at L4-L5 level01/16/2015nemiaBursitisHTN (hypertension)High cholesterolSleep apneaCHF (congestive heart failure)BMI 45.0-49.9, adult Family History Medical HistoryRelationCommentsCancerFatherheart attack [Other]FatherStroke Maternal GrandfatherArthritisMotherStrokeMotherDiabetesSisterHTN [Other]Sister RelationStatusCommentsFatherMaternal GrandfatherMotherSister Social History Tobacco UseTypesPacks/DayYears UsedDateSmoking Tobacco: UomckmKiflerhqti639 11/28/1959 - 11/28/1991 Comments:Quit 1991 Alcohol UseStandard Drinks/WeekCommentsNo0 (1 standard drink = 0.6 oz pure alcohol)CommentsNoSex and Gender InformationValueDate RecordedSex Assigned at BirthNot on fileLegal AcqMyzlhx51/17/2014 11:48 AM ESTGender IdentityNot on fileSexual OrientationNot on fileOccupationIndustryJob Start Date Job End DateassemblyNot on fileNot on fileNot on file Last Filed Vital Signs Vital SignReadingTime TakenCommentsBlood Facchdql464/7805 9:34 AM EDT Tcjhg005604/27/2016 9:34 AM QOHUpdaypnxxuy49.5 ??C (97.7 ??F)04/27/2016 9:34 AM EDTRespiratory Vpql5815 9:34 AM EDTOxygen Viooylugla15%04/27/2016 9:34 AM EDTInhaled Oxygen Concentration--Ptekgm511.7 kg (252 lb 12.8 oz)04/27/2016 9:34 AM DUNDjwauf607.4 cm (5')04/27/2016 9:34 AM EDTBody Mass Index49.37 04/27/2016 9:34 AM EDT Plan of Treatment Health MaintenanceDue DateLast DoneCommentsAnxiety Heqofzubu78/14/1960Depression Fbqddtqiq74/14/1960DTaP,Tdap,Td Vaccine (1 - Tdap)1Diabetes Screening 1986Pneumococcal Vaccine: 50+ (1 of 1 - PCV)1991Shingrix Vaccine (1 of 2)1991Bone Density Anhxngnli88/14/2007RSV Vaccine (1 - 1-dose 75+ series)2016Advance Directive Wunmfptddr20/01/2025ovid-19 Vaccine (1 - 2024-26 season)2025Influenza Vaccine (#1)2025 Insurance
--- OUTSIDE RECORDS SUMMARY | 2025-10-02 09:58 | XMS_ITS | Patient Health Record ---
Author Organization [facility] [place] Address [address] [place] [address] Care Team Providers Care Scrap Drop Operator Name Role Phone Robert Lopez DO Primary Care Provider Unavaila ble Reason For Referral No Information Medications Medication SIG (Take, Route, Frequency, Duration) Notes Start Date End Date Status hydroCHLOROthiazide 25 mg tablet DAILY ActiveNorco 325 mg-5 mgtablet Q6H11/28/18995225XgcklvZsdxankv93/01/1900 TosloiOsxckyub44/01/1900ActiveSM Qcpcrqtgep27/01/9879IoylwyDeenwc Activepotassium qzpuifhi64/01/5424LmqjbzxyjmzUGJ60/01/1900Active Problems Problem Type SNOMED Code ICD Code Onset Dates Problem Status W/U Status Risk Notes Problem Stasis dermatitis co -occurrent with venous ulcer of right lower extremity due to chronic peripheral venous hypertension (602905538642570) Chronic venous hypertension (idiopathic) with ulcer and inflammation of right lower extremity (I87.331) ActiveconfirmedProblemChronic ulcer of lower extremity (36903640)Non-pressure chronic ulcer of other part of right lower leg limited to breakdown of skin (L97.811)ActiveconfirmedProblemChronic non-pressure ulcer of calf extending to fat level (37106925407964195)Non-pressure chronic ulcer of other part of right lower leg with fat layer exposed (L97.812)ActiveconfirmedProblemSleep apnea (91974361)Sleep apnea (G47.30)ActiveconfirmedProblemAcquired lymphedema (07194224)Acquired lymphedema (I89.0)ActiveconfirmedProblemStasis dermatitis co- occurrent with venous ulcer of right lower extremity due to chronic peripheral venous hypertension (526864053534630)Idiopathic chronic venous hypertension of right lower extremity with ulcer (I87.311)ActiveconfirmedProblemEssential hypertension (53714973)BP (high blood pressure) (I10)ActiveconfirmedProblem Hypercholesterolemia (16924695)Hypercholesterolemia (E78.00)Activeconfirmed ProblemChronic ulcer of left leg, with fat layer exposed (L97.922)Active confirmedProblemNon-pressure chronic ulcer of right lower leg, limited to breakdown of skin (L97.911)ActiveconfirmedProblemChronic ulcer of left leg with fat layer exposed (L97.922)Activeconfirmed Plan Of Treatment No Information Insurance Providers Payer Name Payer Address Payer Phone Subscriber Number Group Number Insured Name Patient Relationship to Insured Coverage Start Date Coverage End Date MEDIC[place] [address] [address] [id number] Marine Tavarez - patient is the [id number] 2006MUTUAL OF [id number] [facility] 8 MEDICARE SUPP CLMS DEPT [place] [id number] [employer] Gamez - patient is the [id number] 2010 Medical (General) History Surgical History Surgery Date(Month/Year) History of gallbladder surgery History of colon surgeryHistory of knee surgeryHistory of bladder surgeryHistory of surgery of the left kneebilateral carpal tunnel surgery, trigger finger repair, rotator cuff repair, craniotomy, surger on femurKnee replacementHistory of ventral hernia repairSurgical / procedural history craniotomyHistory of rotator cuff repairHistory of arthroscopy of the kneeHistory of decompression of median nerve at carpal tunnelPrevious EGD procedureHistory of ColonoscopyHistory of laparoscopic cholecystectomy 03/05/2013- Dr. Daniel
--- OUTSIDE RECORDS SUMMARY | 2025-10-02 09:58 | XMS_ITS | Clinical Summary ---
Author Organization [facility] Address [address] [place] [address] Care Team Providers Care Hydraulic Technician Name Role Phone Robert Lopez DO Primary Care Provider Allergies Active AllergyReactionsCriticalityNoted DateCommentsCelecoxibHives,Itching,Rash, ThsmtqmlPfi75/19/2015PenicillinsRash,Itching,QlmluijlEjb87/19/2015 Pt. states PCN doesn't work for me, it just doesn't work Wound Dressing OefcmsrwMnaaTcr61/04/2023 Medications MedicationSigDispense QuantityRefillsLast FilledStart DateEnd DateStatus ferrous [...] InformationValueDate RecordedSex Assigned at BirthNot on fileLegal GymJkgvew87/15/2023 6:56 PM EDTGender Identity Not on fileSexual OrientationNot on file Last Filed Vital Signs Vital SignReadingTime TakenCommentsBlood Neftzxif248/90007/15/2022 12:00 PM EDT Pulse--Temperature--Respiratory Rate--Oxygen Saturation--Inhaled Oxygen Concentration--Ieioaf105 kg (275 lb)10/31/2023 10:59 AM NDEYlojhl290.4 cm (5') 07/15/2022 12:00 PM EDTBody Mass Index53.71007/15/2022 12:00 PM EDT Plan of Treatment DateTypeDepartmentCare Team (Latest Contact Info)Goiitewpltp14/11/2026 11:15 AM EDTOffice Visit [facility] [address] [facility] [employer] [place] [address] Jr. Jovi Silva, DO [address] [facility] [address] [place] [address] Health MaintenanceDue DateLast DoneCommentsPneumococcal Vaccine: 65+ Years (2 of 2 - PCV)COVID-19 Vaccine ( season)2025 10/05/2021, 02/11/2021, 01/21/2021Influenza Vaccine (#1)/07/2024, 10/13/2022, 11/16/2019, Additional [place] [id number] Care Teams Team MemberRelationshipSpecialtyStart DateEnd Date Robert Lopez DO PCP - GeneralInternal Medicine04/03/24
--- OUTSIDE RECORDS SUMMARY | 2025-10-02 10:04 | XMS_ITS | CCD ---
Author Organization [facility] Care Team Providers Care Machine Biller Name Role Phone ROBERT VAIL Primary Care Physician Quita Simmons Unavailable Usama Batista Unavailable Michael Dunaway Unavailable Maico Lloyd Unavailable DO Robert Vail Primary Care Provider [phone] DO Maico Lloyd Attending Provider MD Michael [...] Care Provider MD Juancarlos Campbell Attending Provider [phone] Genna, DO Jones Primary Care Provider MD [...] Unavailable Genna, Robert Primary Care Unavailable Emelyn, Micahel S Attending Unavailable Emelyn, Michael S Admitting [...] Care Provider Michael Dunaway MD Attending Provider [phone] Robert Vail MD Primary Care Provider Robert Vail MD Primary Care Provider Robert Vail DO Primary Care Provider Taye VAZQUEZ Attending Unavailable Jeff Medellin Attending Unavailable Taye VAZQUEZ Attending Unavailable HARPER, JACQUI Attending Unavailable BALL, ROBERT E Referring Unavailable XIAO, GABRIEL Attending Unavailable BALL, ROBERT E Referring Unavailable XIAO, GABRIEL Attending Unavailable BALL, ROBERT E Referring Unavailable HAPRER, JACQUI Attending Unavailable BALL, ROBERT E Referring [...] Care Provider Michael Dunaway MD Attending Provider Ball DO, Robert Attending Provider [phone] Morena Donato APRN Attending Provider Ball DO, Robert Primary Care Provider Ball DO, Robert Attending Provider [phone] Ball DO, Robert Primary Care Provider [phone] Ball DO, Robert Attending Provider [phone] Michael Dunaway MD Attending Provider Allergies Allergy ClassificationReported Allergen(s)Allergy TypeDate of OnsetReaction(s) FacilityNSAIDs (1 source)celecoxibDrug Awcrwda92-14-1809JcnalPionqyzezSt. Elizabeth Hospital Penicillins (antibiotic) (1 source)PenicillinsDrug Vggseas32-81-3530MzdcyTgnyvaaauMain Campus Medical Centererotonin Reuptake Inhibitors (SSRIs) (1 source)CitalopramDrug Ptoapnh44-51-0911UqcqwPobrjjqqxUniversity Hospitals Beach[facility] (2 sources)Adhesive Tape; Translations: [Tape]Drug allergyHighland District Hospital (20 sources)celecoxib; Translations: [celecoxib]Drug Nlhhkxh57-17-6704mpei, Hives, UnknownParkwood [facility] (1 source)Penicillins; Translations: [penicillins]Drug allergygrogOhioHealth Grant Medical Center Comment on above:Pt. states PCN doesn't work for me, it just doesn't work (20 sources)Penicillin GDrug AllergyBaptist Health [facility] Other (20 sources)Penicillins; Translations: [Penicillins]Allergy to substance 81-08-4569Hxqq, Itching, SwellingFisher-Titus Medical Center (2 sources)celecoxibDrug Sjduvvj26-62-3530Yfa [facility] (1 source)CitalopramDrug AllergyUc Medical Center Repository (1 source)DesonideDrug AllergyUc Medical Center Repository (20 sources)CitalopramDrug Pjhmmzy63-31-6763NfflecuDayton Children's Hospital (18 sources)PenicillinDrug Ceyylok88-67-0496JzekhshHcxfoThe Library Other (1 source)Substance with penicillin structure and antibacterial mechanism of action (substance)Drug allergyBedford Regional Medical CenterThe Library Other (1 source)patient allergy list reviewed by nurse or physiciaPropensity to adverse glueqdqea24-16-0087Swtvsat:[facility] CenterSprig[facility] Kids Other (1 source)celecoxibDrug Lmoukrk28-66-2532VsrrntwvzFisher-Titus Medical Center Repository (1 source)CitalopramDrug Imxlijt32-82-3591Hjyaxokue[address] [place] [address] Repository (20 sources)celecoxibDrug Jjcqfqx24-63-4320Uuejk, Itching, Rash, SwellingNOMS Healthcare (20 sources)Wound Dressing AdhesiveDrug Cevzkzb22-66-7521AjclQFNZ Healthcare Medications Current Medications MedicationDrug Class(es)DatesSig (Normalized)Sig (Original)AeroChamber Mini Chamber - (20 sources)Start: 61-64-4161JtwxHhsztyu Mini Chamber - Use with MDI inhaled Use q 4 hours as needed for cough for 30 days Feb, ActiveAllegra Allergy 180 MG (20 sources)Start: 51-70-5349kbke 1 tablet by mouth once dailyAllegra Allergy 180 MG 1 tablet Swallow whole with water; do not take with fruit juices. Orally Once a day for 30 days Feb, Activeatorvastatin 20 mg oral tablet (20 sources)HMG-CoA Reductase InhibitorStart: 06-18-2025 End: 91-70-1691vjoy 1 tablet by mouth once daily in the eveningAtorvastatin 20 mg tablet Active 20 MG PO Every evening 90 90 August 12, 2025 11:06am Complies with drug therapyStart: 03-18-2025 End: 14-04-5672Byllzrurzhmb 20 mg tablet Discontinued 0 .ROUTE .COMPLEX 90 3 March 18, 2025 6:30pm June 18, 2025 2:46pm TAKE 1 TABLET EVERY DAYStart: 10-48-0096Qeyjsoqymjfj 20 mg tablet Active 0 .ROUTE .COMPLEX 90 March 18, 2025 6:30pm TAKE 1 TABLET EVERY DAYStart: 03-27-2015 End: 59-64-1011look 1 tablet by mouth once dailyAtorvastatin 20 mg tablet Discontinued 20 MG PO Daily May 05, 2022 12:00am March 12, 2024 6:05pm furosemide 20 mg oral tablet (20 sources)Loop DiureticStart: 09-21-2024 End: 90-46-0138inqe 1 tablet by mouth twice dailyFurosemide 20 mg tablet Active 20 MG PO Twice daily 180 90 September 21, 2024 4:20pm Complies with drug therapyStart: 02-14-2024 End: 87-58-4476imcg 1 tablet by mouth once dailyFurosemide 40 mg tablet Discontinued 40 MG PO Daily February 14, 2024 12:00am September 21, 2024 3:26pm Start: 23-16-6838twax 1 tablet by mouth twice dailyLasix 20 mg Tab 20 mg = 1 tab(s), Oral, BID, Refills(s) 0 Start Date: 03/03/22 Status: OrderedInhalational Spacing Device (Aerochamber Mini) spacer (20 sources)Start: 66-87-1142Dkqmmakiqwvy Spacing Device (Aerochamber Mini) spacer Active 0 .Route February 13, 2024 11:00pm As directedStart: 02-14-2024 Inhalational Spacing Device (Aerochamber Mini) spacer Active 0 .Route February 14, 2024 12:00am As directedlevoFLOXacin 750 mg oral tablet (13 sources)Quinolone Antimicrobialtake 1 tablet by mouth every twenty-four hourslevoFLOXacin 750 MG 1 tablet Orally Once a day Activelosartan potassium 50 mg oral tablet (20 sources)Angiotensin 2 Receptor BlockerStart: 06-18-2025 End: 82-45-0507vjnz 1 tablet by mouth once dailyLosartan 50 mg tablet Active 50 MG PO Daily 90 90 3 August 12, 2025 11:07am Complies with drugtherapyStart: 03-18-2025 End: 67-12-8130Bvpvbkcb 50 mg tablet Discontinued 0 .ROUTE .COMPLEX 90 3 March 18, 2025 6:31pm June 18, 2025 2:46pm TAKE 1 TABLET EVERY DAYStart: 03-03-2022 End: 83-16-5676prmn 1 tablet by mouth once dailyLosartan 50 mg tablet Discontinued 50 MG PO Daily February 14, 2024 12:00am March 12, 2024 6:05pmtake 1 tablet by mouth in the morninglosartan (Cozaar) 25 MG tablet Take 25 mg by mouth in the morning. ActivemethylPREDNISolone 4 mg oral tablet (1 source)CorticosteroidStart: 61-82-8950Gdzrbh 4 MG as directed Orally as directed for 6 days Oct, Activemupirocin 0.02 mg/mg topical ointment (4 sources)RNA Synthetase Inhibitor AntibacterialStart: 59-45-4145Kfxyzlcvs 2 % ointment Active 1 APPLIC TOPICAL Twice daily 22 0 June 14, 2025 12:00am Cellulitis Skin tear Cellulitis, unspecified Complies with drug therapy polysaccharide iron complex 150 mg oral capsule (20 sources)Start: 12-10-2024 End: 84-93-1800Vdiatqmsyerxfk Iron Complex (Ferrex 150) 150 mg iron capsule Active 150 MG PO Daily August 12, 2025 11:10am Complies with drug therapyStart: 08-27-2024 End: 05-20-2526mcbq 1 capsule by mouth once dailyPolysaccharide Iron Complex (Ferrex 150) 150 mg iron capsule Discontinued 0 .ROUTE .COMPLEX 26 04August 27, 2024 12:37pm December 10, 2024 2:45pm TAKE 1 CAPSULE BY MOUTH DAILYStart: 08-10-2024 End: 19-21-0027Gqhexattvspygh Iron Complex (Ferrex 150) 150 mg iron capsule Discontinued 150 MG PO every other dayS2023 12:00am August 27, 2024 12:37pmStart: 06-22-2022 End: 94-61-0539Itjtvakuctwsdy Iron Complex (Ferrex 150) 150 mg iron capsule Discontinued 150 MG PO Daily February 15, 2024 3:00pm August 10, 2024 12:24pmStart: 62-78-5670yjpf 1 capsule by mouth once dailyFerrex-150 oral [...] release oral capsule (20 sources)Start: 03-18-2025 End: 06-94-1897Vneqbukma Chloride 10 mEq capsule, extended release Active 0 .ROUTE .COMPLEX 90 August 12, 2025 11:07am TAKE 1 CAPSULE EVERY DAY Complies with drug therapyStart: 67-52-8664Sutjeyiea Chloride 10 mEq capsule, extended release Active 0 .ROUTE .COMPLEX March 18, 2025 6:31pm TAKE 1 CAPSULE EVERY DAYStart: 05-05-2022 End: 76-22-8942jgzy 1 capsule by mouth once dailyPotassium Chloride 10 mEq capsule, extended release Discontinued 10 MEQ PO Daily February 14, 2024 12:00am March 12, 2024 6:05pmStart: 01-44-9766dmor 1 tablet by mouth once daily potassium chloride 10 mEq ER Tab 10 mEq = 1 tab(s), Oral, Daily, Refills(s) 0, Other (see comment) Start Date: 03/27/15 Status: Orderedtake 1 dose by mouth once daily at mealtimePotassium Chloride 20 MEQ 1 packet with food Orally Once a day Not-Taking/PRNtiZANidine 4 mg oral tablet (4 sources)Central alpha-2 Adrenergic AgonistStart: 03-10-4817dwDOWebjrw HCl 4 MG 1/2-1 tablet as needed Orally at bedtime for 30 days Jul, Active warfarin sodium 5 mg oral tablet (20 sources)Vitamin K AntagonistStart: 03-20-2025 End: 89-88-8512Jdykbjnu 5 mg tablet Active 5 MG PO .COMPLEX 30 30 5 August 12, 2025 11:10am 5 mg orally; as directed by coumadin clinic Complies with drug therapyStart: 03-20-2025 End: 51-65-8709hgtz 1 tablet by mouth three times weeklyWarfarin 2.5 mg tablet Discontinued 2.5 MG PO 3 Times a week March 20, 2025 1:36pm August 12, 2025 11:08amStart: 12-13-2024 End: 97-46-9532abmx 1 tablet by mouth once dailyWarfarin 5 mg tablet Discontinued 0 .ROUTE .COMPLEX 240 3 December 13, 2024 6:15pm March 20, 2025 1:38pm TAKE 1 TABLET BY MOUTH DAILYStart: 08-10-2024 End: 35-99-6755bnzo 1 tablet by mouth two times weeklyWarfarin 2.5 mg tablet Discontinued 2.5 MG PO Twice a Week August 10, 2024 12:00am February 1:38pmStart: 05-28-2024 End: 95-21-9186vjdz 1 tablet by mouth five times weeklyWarfarin 5 mg tablet Discontinued 5 MG PO 5 TIMES PER WEEK May 28, 2024 12:00am December 13, 2024 6:16pmStart: 92-59-1352pfxa 1 tablet by mouth once dailywarfarin (Coumadin) 5 MG tablet Take 5 mg by mouth 1 (one) time each day 10/10/2023 Activetake 1 tablet by mouth two times weeklyCoumadin 5 5 MG 1 tablet Orally Two times a Week Active witch darien 200 mg/ml medicated pad (20 sources)Start: 68-98-4632Gmaso Darien (Preparation H Totables Wipes) 50 % pads Indications: Hemorrhoids, unspecified hemorrhoid type Apply 1 Dose topically every 8 (eight) hours if needed (with loose stool to wipe gently) 10 e ach 3 10/31/2023 Active Completed/Discontinued Medications MedicationDrug Class(es)DatesSig (Normalized)Sig (Original)acetaminophen 325 mg / HYDROcodone bitartrate 5 mg oral tablet (20 sources)Opioid AgonistStart: 02-14-2024 End: 52-92-0829hyzn 1 tablet by mouth twice dailyHydrocodone-Acetaminophen 5-325 mg tablet Discontinued 1 TAB PO Twice daily 0 February 14, 2024 12:00am March 29, 2024 11:00amStart: 55-92-0706smhy 1 tablet by mouth twice daily as needed HYDROcodone-Acetaminophen 5-325 MG 1 tablet as needed Orally twice daily for 14 days Aug, Qnjhwifsu406187 200 actuat albuterol 0.09 mg/actuat metered dose inhaler (20 sources)beta2-Adrenergic AgonistStart: 02-14-2024 End: 35-18-0416bdyc 1 puff(s) by inhalation every four hoursAlbuterol Sulfate 90 mcg/actuation HFA aerosol inhaler Discontinued 2 PUFF INHALATION Every 4 hours February 14, 2024 12:00am May 28, 2024 2:24pmStart: 47-23-2804ouuj 2 puff(s) by inhalation every four hours as needed for coughAlbuterol Sulfate HFA 108 (90 Base) MCG/ACT 2 puffs Inhalation every 4 hrs as needed for cough and SOB Feb, ActiveStart: 32-36-0532fwey 2 puff(s) by inhalation every four hours as needed for coughAlbuterol Sulfate HFA 108 (90 Base) MCG/ACT 2 puffs Inhalation every 4 hrs as needed for cough and SOB Feb, ActiveStart: 47-25-2211vhwm 2 puff(s) by inhalation every four hours as needed for coughAlbuterol Sulfate HFA 108 (90 Base) MCG/ACT 2 puffs Inhalation every 4 hrs as needed for cough and SOB Feb, Activealendronic acid 5 mg oral tablet (20 sources)BisphosphonateStart: 02-14-2024 End: 87-68-9149Fcfhwvbjowo 5 mg tablet Discontinued 5 MG PO February 14, 2024 12:00am March 29, 2024 11:00am 1 tablet 30 minutes before the first food, beverage or medicine of the day with plain water Orally Once a dayStart: 05-05-2022 End: 05-00-6562qsue 1 tablet by mouth every weekAlendronate 70 mg tablet Discontinued 70 MG PO every week May 05, 2022 12:00am June 23, 2022 10:21am Start: 48-71-1254qtbi 1 tablet by mouth every weekFosamax 70 mg oral tablet 70 mg = 1 tab(s), Oral, qWeek, Refills(s) 0 Start Date: 03/03/22 Status: Ordered Alendronate Sodium 5 MG 1 tablet 30 minutes before the first food, beverage or medicine of the day with plain water Orally Once a day Activeapixaban 5 mg oral tablet (20 sources)Factor Xa InhibitorStart: 05-05-2022 End: 97-00-7473kktk 1 tablet by mouth once dailyApixaban (Eliquis) 5 mg tablet Discontinued 5 MG PO Daily May 05, 2022 12:00am May 28, 2024 2:24pmEliquis 5 MG TAKE 1 TABLET TWICE DAILY ActiveEliquis Activeazithromycin 250 mg oral tablet (20 sources)Macrolide AntimicrobialStart: 87-44-4564Mlflzqmtwhxm 250 MG as directed Orally daily for 5 days Feb, Not-Taking/PRNStart: 12-27-2022 Azithromycin 500 MG 1 tablet Orally for 5 days Nov, Not-Taking/PRN benzonatate 200 mg oral capsule (20 sources)Non-narcotic AntitussiveStart: 02-14-2024 End: 60-33-1017ljhq 1 capsule by mouth three times dailyBenzonatate 100 mg capsule Discontinued 100 MG PO Three times daily February 14, 2024 12:00am April 30, 2024 3:05pmStart: 02-14-2024 End: 90-47-6074vrhg 1 capsule by mouth three times dailyBenzonatate 200 mg capsule Discontinued 200 MG PO Three times daily February 14, 2024 12:00am April 30, 2024 3:05pmStart: 52-94-8871vwvy 1 capsule by mouth every eight hours Benzonatate 100 MG 1 capsule as needed Orally Three times a day for 10 days Oct, ActiveStart: 80-27-5915spgw 1 capsule by mouth every eight hours Benzonatate 200 MG 1 capsule Orally Three times a day for 10 13 Feb, 2023 Active Start: 36-60-4499jctu 1 capsule by mouth every eight hoursTessalon Perles 100 MG 1 capsule as needed Orally Three times a day for 7 days Aug, Active cephalexin 500 mg oral capsule (19 sources)Cephalosporin AntibacterialStart: 06-32-3433yifb 1 capsule by mouth twice daily as neededCephalexin 500 MG 1 capsule Orally twice daily for 14 days Jun, Not-Taking/PRNStart: 75-91-8735gcwc 1 capsule by mouth every twelve hoursCephalexin 500 MG 1 tablet Orally Twice a day for 7 days Aug, Not-Takingcodeine phosphate 2 mg/ml / guaiFENesin 20 mg/ml oral solution (20 sources)Opioid AgonistStart: 15-20-4766feyd 10 mL by mouth every six hours as needed for coughguaiFENesin-Codeine 100-10 MG/5ML 10 mL as needed Orally every 6 hours as needed for cough Feb, Not-Taking/PRNcolestipol hydrochloride 1000 mg oral tablet (20 sources)Bile Acid SequestrantStart: 02-14-2024 End: 44-37-1050Ozcytjltjd 1 gram tablet Discontinued 2 GM PO Daily February 14, 2024 12:00am May 28, 2024 2:25pmStart: 02-14-2024 End: 42-75-5871zmms 2 g by mouth once dailyColestipol Discontinued 2 GM PO Daily February 14, 2024 12:00am May 28, 2024 2:25pmStart: 77-39-3408fmoa 2 tablets by mouth every twenty-four hoursColestipol HCl 1 GM 2 tablets Orally Once a day for 30 days Jun, Activetake 2 tablets by mouth every twenty-four hours Colestipol HCl 1 GM 2 tablets Orally Once a day for 90 days Activedoxycycline monohydrate 100 mg oral tablet (20 sources)Tetracycline-class DrugStart: 06-14-2025 End: 02-16-2222uulm 1 tablet by mouth twice dailyDoxycycline Monohydrate 100 mg tablet Discontinued 100 MG PO Twice daily 20 10 0 June 14, 2025 12:00am August 12, 2025 10:32amStart: 01-04-2025 End: 57-98-0918reae 1 capsule by mouth twice dailyDoxycycline Hyclate 100 mg capsule Discontinued 100 MG PO Twice daily 14 7 0 January 16, 2025 1:46pm April 09, 2025 10:23amStart: 02-15-2024 End: 53-15-2431upzl 1 capsule by mouth twice dailyDoxycycline Hyclate 100 mg capsule Discontinued 100 MG PO Twice daily 20 10 0 February 15, 2024 12:00am May 28, 2024 2:25pmStart: 86-39-9052nzpd 1 capsule by mouth twice daily as needed Doxycycline Hyclate 100 MG 1 capsule Orally twice daily for 7 days March, Not-Taking/PRNStart: 05-05-2022 End: 65-75-0653zmjx 1 capsule by mouth once dailyDoxycycline Hyclate 100 mg capsule Discontinued 100 MG PO Daily May 05, 2022 12:00am June 23, 2022 10:21amempagliflozin 10 mg oral tablet (6 sources)Sodium-Glucose Cotransporter 2 InhibitorStart: 04-19-2025 End: 86-44-8837hqna 1 tablet by mouth once daily in the morningEmpagliflozin (Jardiance) 10 mg tablet Discontinued 10 MG PO Every morning 30 30 5 April 19, 2025 12:00am August 12, 2025 11:06am0.8 ml enoxaparin sodium 150 mg/ml prefilled syringe (20 sources)Low Molecular Weight HeparinStart: 12-14-2024 End: 28-94-7470Tydgcymwjh 120 mg/0.8 mL syringe Discontinued 0 .ROUTE .COMPLEX 4.8 0 December 14, 2024 6:34pm March 20, 2025 1:35pm INJECT 1 syringe EVERY 12 HOURS FOR 6 DAYSStart: 12-14-2024 End: 31-49-9027Yvkwjfhong (Lovenox) 120 mg/0.8 mL syringe Discontinued 0 SUBCUT Every 12 hours 4.8 6 0 December 14, 2024 1:00am December 14, 2024 6:34pm subcutaneously every 12 hours; Start 3 days prior to surgery, hold on morning of surgery, restart when surgeon determines safe.Enoxaparin 120 mg/0.8 mL syringe (12 sources)Start: 12-14-2024 End: 77-37-8161Tbdtkslany 120 mg/0.8 mL syringe Discontinued 0 .ROUTE .COMPLEX 4.8 December 14, 2024 6:34pm 2024 1:35pm INJECT 1 syringe EVERY 12 HOURS FOR 6 DAYSStart: 45-94-0683Esyrnybksu 120 mg/0.8 mL syringe Active 0 .ROUTE .COMPLEX 4.8 December 14, 2024 6:34pm INJECT 1 syringe EVERY 12 HOURS FOR 6 DAYSStart: 62-84-4915Oolokbxibr 120 mg/0.8 mL syringe Active 0 .ROUTE .COMPLEX 4.8 December 14, 2024 5:34pm INJECT 1 syringe EVERY 12 HOURS FOR 6 DAYSferrous sulfate 325 mg oral tablet (20 sources)Start: 06-23-2022 End: 35-52-6807xijy 1 tablet by mouth once dailyFerrous Sulfate [...] tablet (20 sources)Histamine-1 Receptor AntagonistStart: 02-14-2024 End: 02-34-9331dqov 1 tablet by mouth once daily as neededFexofenadine (Carole Allergy) 180 mg tablet Discontinued 180 MG PO Daily as needed for allergic sym ptoms February 14, 2024 12:00am March 20, 2025 1:35pmStart: 86-54-8959namd 1 tablet by mouth once dailyAllegra Allergy 180 MG 1 tablet Swallow whole with water; do not take with fruit juices. Orally Once a day for 30 days Feb, ActiveIron (1 source)take 1 tablet by mouth once dailyIron 325 (65 Fe) MG 1 tablet Orally Once a day Not-TakinglevETIRAcetam 500 mg oral tablet (20 sources)Start: 03-12-2024 End: 09-51-5897Gnkhsnrhkelcm 500 mg tablet Discontinued 750 MG PO Twice daily 270 90 3 June 18, 2025 2:42pm August 12, 2025 11:09amStart: 03-12-2024 End: 10-64-1538uvrp 750 mg by mouth twice dailyLevetiracetam Active 750 MG PO Twice daily 270 90 March 12, 2024 6:04pmStart: 02-14-2024 End: 19-62-9514Izswmhrodifdb 500 mg tablet Discontinued 750 MG PO Daily February 14, 2024 12:00am March 12, 2024 5:05pmStart: 02-14-2024 End: 97-13-8176kdjz 750 mg by mouth once dailyLevetiracetam Discontinued 750 MG PO Daily February 14, 2024 12:00am March 12, 2024 5:05pmStart: 05-05-2022 End: 46-74-1817praw 1 tablet by mouth once dailyLevetiracetam 500 mg tablet Discontinued 500 MG PO Daily May 05, 2022 12:00am February 14, 2024 1:06pm Start: 11-20-2014 End: 34-98-6071sqdi 1 tablet by mouth twice dailyLevetiracetam 500 mg tablet Discontinued 500 MG PO Twice daily February 14, 2024 1:04pm March 12, 2024 5:05pmtake 1 tablet by mouth every eight hoursKeppra 500 MG 1 tablet Orally tid Not-Takingphenytoin sodium 100 mg extended release oral capsule (20 sources)Anti-epileptic AgentStart: 05-05-2022 End: 64-61-5458zunj 1 capsule by mouth three times dailyPhenytoin Sodium Extended 100 mg capsule Discontinued 100 MG PO Three times daily May 05, 2022 12:00am June 23, 2022 10:21amStart: 67-01-2590uzrf 1 capsule by mouth twice dailyDilantin 100 [...] oral tablet (20 sources)Opioid AgonistStart: 02-14-2024 End: 23-50-7636huqr 1 tablet by mouth once daily at bedtimeTramadol 50 mg tablet Discontinued 50 MG PO Daily at bedtime February 14, 2024 12:00am March 29, 2024 11:00amStart: 35-35-5831yurg 1 tablet by mouth once daily at bedtime as needed traMADol HCl 50 MG 1 tablet as needed Orally Once a day at bedtime for 14 days Aug, ActiveStart: 19-23-0502ihwh 1 tablet by mouth once daily at bedtime as neededtraMADol HCl 50 MG 1 tablet as needed Orally Once a day at bedtime for 14 days Jul, Active Problems Active Problems Problem ClassificationProblemDateDocumented DateEpisodic/ChronicAbdominal hernia (1 source)Diaphragmatic hernia; Translations: [Diaphragmatic hernia without mention of obstruction or gangrene]EpisodicAcute bronchitis (7 sources)Acute bronchitis due to other specified organisms; Translations: [Acute bronchitis]Onset: 06-75-3066QcpcuulkFznjlcakncrici/social admission (2 sources)Persons encountering health services in other specified circumstances EpisodicAsthma (20 sources)Asthma - currently active; Translations: [Unspecified asthma, uncomplicated]80-61-0845VdjfdxwKiksidm tract disease (2 sources)Biliary calculus; 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] 13-59-2013BugsgjzrFaglzryw (20 sources)After-cataract of bilateral eyes; 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, bilateral]Onset: 292524-16-1365WsuwpnfTbooklh obstructive pulmonary disease and bronchiectasis (20 sources)Simple chronic bronchitis; Translations: [Simple chronic bronchitis] ChronicChronic ulcer of skin (9 sources)Non-pressure chronic ulcer of right calf limited to breakdown of skin; Translations: [Non-pressure chronic ulcer of right calf limited to breakdown of skin]ChronicCoagulation and hemorrhagic disorders (20 sources)Hypercoagulability state; Translations: [Other primary thrombophilia]Onset: 047442-26-8609PrhrktlEndtmocyufczh of surgical procedures or medical care (4 sources)Infection following a procedure, other surgical site, initial encounter; Translations: [Other complications of procedures, not elsewhere classified, initial encounter]87-13-7953OgodapbbLcodyrgirv heart failure; nonhypertensive (1 source)Chronic combined systolic and diastolic heart failure; Translations: [Chronic combined systolic (congestive) and diastolic (congestive) heart failure]ChronicDeficiency and other anemia (4 sources)Iron deficiency anemia secondary to blood loss (chronic); Translations: [IRON DEFIC ANEMIA SEC BLD LOSS CHRN]Onset: 96-63-8112Sirhrlm Deficiency and other anemia (1 source)Anemia due to chronic blood loss; Translations: [Iron deficiency anemia secondary to blood loss (chronic)]ChronicDeficiency and other anemia (20 sources)Iron deficiency anemia; Translations: [Iron deficiency anemia, unspecified]Onset: 22-97-6839WmmkggktHtuzaxgfbs and other anemia (11 sources)Anemia; Translations: [Anemia, unspecified] Resolved: 047801-11-8134ThbpmrloHypraogrjm and other anemia (9 sources)Iron deficiency anemia, unspecified; Translations: [Iron deficiency anemia, unspecified]04-10-8754PaiisbyyOltxszritw and other anemia (3 sources)Anemia, unspecified; Translations: [Anemia, unspecified]04-09-2025 EpisodicDiabetes mellitus with complications (20 sources)Type 2 diabetes mellitus; Translations: [Type 2 diabetes mellitus with hyperglycemia]Onset: 44-36-8502VkvxofgLvyknhgn mellitus without complication (1 source)Diabetes qlkgabks55-74-7100EpaboigSmcgpfnvw of lipid metabolism (20 sources)Hyperlipidemia; Translations: [Pure hypercholesterolemia]Onset: 899086-00-4686CpplqvgRzoxgfyntsxnmf and diverticulitis (2 sources)Diverticular disease; Translations: [Diverticulitis of colon]Onset: 397463-21-4944VjyqvckN Codes: Adverse effects of medical drugs (6 sources)Adverse effect of anticoagulants, initial encounter; Translations: [Anticoagulants causing adverse effects in therapeutic use]51-73-8188Dmtvaopy Epilepsy; convulsions (20 sources)Seizure disorder; Translations: [Generalized idiopathic epilepsy and epileptic syndromes, not intractable, without status epilepticus]Onset: 27-47-9390DchjwyvMqaagggr; convulsions (3 sources)Seizure disorder; Translations: [Seizure]17-93-0561IkznpkziFhgbxtcagt disorders (20 sources)Gastroesophageal reflux disease; Translations: [Gastro-esophageal reflux disease with esophagitis]67-04-2892MjfhtneLcslxwyyz hypertension (20 sources)Hypertensive disorder; Translations: [Essential (primary) hypertension]Onset: 397647-13-5204AzgntmpNgsmnecfwzovy symptoms and ill- defined conditions (1 source)DysuriaEpisodicImmunity disorders (1 source)Common variable hnqkzmphzyqxvyjqqo35-95-9065RwvjldkAwbdvzfalqlxy and screening for infectious disease (20 sources)Contact with and (suspected) exposure to other viral communicable diseases; Translations: [Vaccination given]EpisodicMenopausal disorders (1 source)Primary ovarian failure; Translations: [Other primary ovarian failure] Onset: 12-16-9192VluluerFbhg disorders (2 sources)Depressive disorder; 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] 02-92-8323ZhzpjysZpyb wounds of extremities (20 sources)Laceration of lower limb; Translations: [Laceration without foreign body, unspecified lower leg, initial encounter]25-82-7711ObojrokgZjxn wounds of head; neck; and trunk (10 sources)Tear of skin; Translations: [Open wound(s) (multiple) of unspecified site(s), without mention of complication]99-20-8477GenciriyRdtskevdyuolxt (3 sources)Degenerative joint disease of pelvis; Translations: [Osteoarthrosis, unspecified whether generalized or localized, pelvic region and thigh]Onset: 61-83-4420AkglmzpLyagvvqugkeu (20 sources)Osteoporosis; Translations: [Age-related osteoporosis without current pathological fracture]86-83-0119UdmctavUsncu acquired deformities (1 source)Acquired rolxdswvnsokssyux03-84-0134SqlfxwltWpyhv aftercare (20 sources)Long-term current use of anticoagulant; Translations: [MCFP (current) use of anticoagulants]Onset: 34-44-6619ComqllkzRrwzv aftercare (20 sources)MCFP (current) use of anticoagulants; Translations: [Long-term (current) use of anticoagulants]Onset: 02-18-2022 Resolved: 06-32-7943ChzjbvlzZnhmt aftercare (1 source)Long-term current use of drug therapy; Translations: [Other fci (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 therapy]EpisodicOther aftercare (20 sources)Encounter for therapeutic drug level monitoring; Translations: [Encounter for therapeutic drug monitoring]33-48-7398OqmobwymTmqzp and unspecified benign neoplasm (1 source)Adrenal tdvzmux71-52-1282EspfzgydZihdu and unspecified benign neoplasm (1 source)Benign neoplasm of adrenal gland; Translations: [Benign neoplasm of unspecified adrenal gland]EpisodicOther and unspecified benign neoplasm (1 source)Benign neoplasm of right adrenal gland; Translations: [Benign neoplasm of right adrenal gland]EpisodicOther congenital anomalies (1 source)Congenital spondylolysis of lumbosacral region; Translations: [Congenital spondylolysis, lumbosacral region]Onset: 42-49-1104RxfhferLyafi connective tissue disease (1 source)Artificial knee joint present; Translations: [Presence of left artificial knee joint]ChronicOther connective tissue disease (20 sources)History of lumbar fusion; Translations: [Arthrodesis status]Episodic Other connective tissue disease (20 sources)Pain in calf; Translations: [Pain in unspecified lower leg] 14-64-9557SmnnkuocExhyauj on above:Problem List clean-up per request of Phys. 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] ChronicOther diseases of veins and lymphatics (1 source)Chronic venous hypertension (idiopathic) without complications of unspecified lower extremity; Translations: [Chronic venous hypertension (idiopathic) without complications of unspecified lower extremity]ChronicOther diseases of veins and lymphatics (12 sources)Chronic peripheral venous hypertension; Translations: [Chronic venous hypertension (idiopathic) without complications of right lower extremity] 70-31-2292YduvcauEblgq diseases of veins and lymphatics (1 source)Chronic venous hypertension (idiopathic) without complications of right lower extremityChronicOther diseases of veins and lymphatics (20 sources)Peripheral venous insufficiency; Translations: [Venous insufficiency (chronic) (peripheral)]Onset: 006106-07-4880GugtdogeVsqrp diseases of veins and lymphatics (15 sources)Venous insufficiency (chronic) (peripheral); Translations: [Venous (peripheral) insufficiency, unspecified]EpisodicOther diseases of veins and lymphatics (3 sources)Stasis dermatitis; Translations: [Venous insufficiency (chronic) (peripheral)]EpisodicOther ear and sense organ disorders (1 source)Sensorineural hearing phse97-60-8979CmsnsrjBscll female genital disorders (1 source)Abnormal uterine bleeding; Translations: [Abnormal uterine and vaginal bleeding, unspecified]Onset: 16-76-5721SkppxstJratm gastrointestinal disorders (1 source)Intra-abdominal and pelvic swelling, mass and lump; Translations: [Intra-abdominal and pelvic swelling, mass and lump, unspecified site]Episodic Other injuries and conditions due to external causes (2 sources)History of fall; Translations: [Personal history of fall]Onset: 58-37-0075MkqqubquSzkdq lower respiratory disease (20 sources)Dyspnea; Translations: [Shortness of breath]Onset: 11-18-2014 60-08-8112EuguxzejLdbsvek on above:Problem List clean-up per request of Phys. EHR CmteOther nervous system disorders (20 sources)Chronic pain; Translations: [Other chronic pain]49-31-5272Uzoaktc Other nervous system disorders (20 sources)Other chronic pain; Translations: [Other chronic pain]Onset: 01-28-2022 Resolved: 08-35-9529SamuiueEwtpg nervous system disorders (1 source)Carpal tunnel syndrome; Translations: [Carpal tunnel syndrome, unspecified upper limb]ChronicOther nervous system disorders (1 source)Paresthesia; Translations: [Paresthesia of skin]EpisodicOther non- traumatic joint disorders (1 source)Lower limb joint arthritis; Translations: [Osteoarthrosis, unspecified whether generalized or localized, lower leg]Onset: 62-98-9136SswbfloZbtxj nutritional; endocrine; and metabolic disorders (4 sources)Body mass index 40+ - severely obese; Translations: [Body mass index (BMI) 50.0-59.9, adult]Onset: 24-10-3744NtnpuksRebjh nutritional; endocrine; and metabolic disorders (2 sources)Morbid obesity; Translations: [Morbid (severe) obesity due to excess calories]14-08-8581GtenifnFpuxt nutritional; endocrine; and metabolic disorders (4 sources)Obesity; Translations: [Obesity, unspecified]94-39-9664XsvmoxvNomjs upper respiratory disease (20 sources)Allergic rhinitis due to pollen; Translations: [Allergic rhinitis due to pollen]80-62-1694CkbtamlZfmdc upper respiratory disease (1 source)Allergic rhinitis due to pollenChronicOther upper respiratory disease (1 source)Seasonal allergic rhinitis; Translations: [Other seasonal allergic rhinitis]Onset: 52-69-3641BlqvmmrVwnim upper respiratory disease (1 source)Other specified disorders of nose and nasal sinusesEpisodicPeri-; endo-; and myocarditis; cardiomyopathy (except that caused by tuberculosis or sexually transmitted disease) (1 source)Dilated cardiomyopathy; Translations: [Dilated cardiomyopathy]Chronic Peripheral and visceral atherosclerosis (1 source)Peripheral vascular disease; Translations: [Other peripheral vascular disease]Onset: 46-63-9608PfleeybEhqxccfol; thrombophlebitis and thromboembolism (4 sources)H/O: Deep vein thrombosis; Translations: [Embolism from thrombosis of vein of distal lower extremity]Onset: 159774-01-3206QnzzwvmiKlmpciqww heart disease (3 sources)Pulmonary hypertension; Translations: [Chronic pulmonary heart disease]Onset: 983844-62-2318QofmlqcUufcibdaa heart disease (4 sources)H/O: pulmonary embolus; Translations: [Pulmonary thromboembolism] 58-83-9331BytwvcadYipanmbp codes; unclassified (20 sources)Obstructive sleep apnea syndrome; Translations: [Obstructive sleep apnea (adult) (pediatric)]47-18-9308PtogsvaEnmihpph codes; unclassified (20 sources)Obstructive sleep apnea (adult) (pediatric); Translations: [Obstructive sleep apnea (adult)(pediatric)]ChronicResidual codes; unclassified (1 source)Family history of leukemia; Translations: [FAMILY HISTORY OF LEUKEMIA] Onset: 44-00-0399UygzlzyxPqplamsi codes; unclassified (1 source)Family history of malignant neoplasm of other organs or systems; Translations: [FAM HX MALIG NEOPLASM OTH ORGN/SYS]Onset: 24-12-5165Umxlgqlw Residual codes; unclassified (1 source)Postmenopausal state; Translations: [Asymptomatic menopausal state] EpisodicResidual codes; unclassified (9 sources)Mammogram declined; Translations: [Procedure and treatment not carried out because of patient's decision for unspecified reasons]04-07-2025 EpisodicResidual codes; unclassified (3 sources)Procedure and treatment not carried out because of patient's decision for unspecified reasons; Translations: [Surgical or other procedure not carried out because of patient's decision]94-51-9602KbuohqxnYkjqcao detachments; defects; vascular occlusion; and retinopathy (20 sources)Epiretinal membrane of right eye; 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, right eye]Onset: 426161-71-7133FlkkcvgNpjv and subcutaneous tissue infections (20 sources)Erysipelas; Translations: [Cellulitis of right lower limb]Onset: 08-17-2017 Resolved: 86-80-3749AfzjtzcdUchzapafydi; intervertebral disc disorders; other back problems (20 sources)Solitary sacroiliitis; Translations: [Sacroiliitis, not elsewhere classified]Onset: 02-18-2022 Resolved: 09-37-8633AjldvyiHjonpqfzstc; intervertebral disc disorders; other back problems (20 sources)Spinal stenosis of lumbar region; Translations: [Spinal stenosis, lumbar region without neurogenic claudication]Onset: 02-22-2017 Resolved: 167510-64-5933KytxcpgoTgiqcds and strains (2 sources)Sprain of ligament of tarsometatarsal joint; Translations: [Sprain of tarsometatarsal ligament of left foot, initial encounter]Onset: 11-07-2018 EpisodicSuperficial injury; contusion (17 sources)Contusion of lower leg; Translations: [Contusion of left lower leg, initial encounter]Onset: 34-23-1504WzcfwdgzKeijvrd disorders (20 sources)Thyroid nodule; Translations: [Nontoxic single thyroid nodule]Onset: 95-59-4737UmvuspsRvpiitihubub (1 source)Long-term current use of drug therapy; Translations: [Long-term (current) use of other medications]Onset: 62-28-1166Rgsvkcpemkaq (1 source)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); Translations: [Post COVID-19 condition, unspecified]Unclassified (1 source)Non-healing surgical wound; Translations: [Non-healing surgical wound] Onset: 91-25-9698Iegtdxzdvcor (1 source)Acute candidiasis of vulva and vagina; Translations: [Acute candidiasis of vulva and vagina]Unclassified (1 source)Infection following a procedure, unspecified, initial encounter; Translations: [Infection followinga procedure, unspecified, initial encounter] Onset: 71-17-5536Fhlxlyjn veins of lower extremity (20 sources)Varicose veins of lower extremity; Translations: [Varicose veins of bilateral lower extremities with other complications]EpisodicViral infection (1 source)Viral infection, unspecifiedEpisodicViral infection (2 sources)COVID-19; Translations: [Disease caused by 2019-nCoV] Past or Other Problems Problem ClassificationProblemDateDocumented DateEpisodic/ChronicAbdominal pain (1 source)Right lower quadrant pain; Translations: [Right lower quadrant pain] Onset: 24-95-3357AhbewsqsVjqrqutmc infection; unspecified site (1 source)Bacterial infectious disease; Translations: [Bacterial infection, unspecified, in conditions classified elsewhere and of unspecified site]Onset: 58-75-8065YmcwhkshHwrjyjpuakv and hemorrhagic disorders (1 source)Bleeding; Translations: [Hemorrhagic condition, unspecified]Onset: 62-97-5328KjnvdfqyQbswilvv mellitus without complication (1 source)Impaired fasting glycemia; Translations: [Impaired fasting glucose] Resolved: 14-58-9762YixxclqoPdgeaztxef disorders (3 sources)Esophageal disorders; Translations: [Gastro-esophageal reflux disease with esophagitis, without bleeding]Fluid and electrolyte disorders (1 source)Hypokalemia; Translations: [Hypokalemia]Onset: 86-85-8858Hsqskkml Inflammation; infection of eye (except that caused by tuberculosis or sexually transmitteddisease) (20 sources)Blepharitis of upper and lower eyelids of bilateral eyes; Translations: [Unspecified blepharitis right eye, upper and lower eyelids]Onset: 687302-08-8343AmkehascZwofotcerf infection (1 source)Infectious colitis, enteritis and gastroenteritis; Translations: [Infectious gastroenteritis and colitis, unspecified] Resolved: 81-60-6577MvochhrsJhfxf disorders and dislocations; trauma-related (1 source)Current tear of medial cartilage AND/OR meniscus of knee; Translations: [Other tear of medial meniscus, current injury, left knee, initial encounter]Onset: 84-23-9459NsgnvljgNunzlis and fatigue (1 source)Malaise and fatigue; Translations: [Other malaise and fatigue]Onset: 59-84-6256KaenjxjbYzmldsnbgwa chest pain (1 source)Chest pain; Translations: [Chest pain, unspecified]Onset: 02-14-2014 EpisodicOther connective tissue disease (1 source)Achilles tendinitis, left legOnset: 11-07-2021 Resolved: 60-72-4536QtvvtlvhPyfnb connective tissue disease (1 source)Arthrodesis statusOnset: 01-28-2022 Resolved: 45-35-6270WsnazwluGunaa connective tissue disease (1 source)Prepatellar bursitis of left knee; Translations: [Prepatellar bursitis, left knee]Onset: 65-23-3401XigcufebHqilu connective tissue disease (1 source)Pain in left lower limb; Translations: [Pain in left leg]Onset: 91-32-7102LzohsloxQsznj connective tissue disease (14 sources)Other bursitis of hip, unspecified hip; Translations: [Enthesopathy of hip region]Onset: 627871-08-0403HyttwbqkXemzz eye disorders (20 sources)Dry eyes; Translations: [Dry eye syndrome of bilateral lacrimal glands]Onset: 486985-65-5957FgtyhdkgDavux gastrointestinal disorders (4 sources)Intra-abdominal and pelvic swelling, mass and lump, unspecified site; Translations: [INTRA-ABD PELVSWELL MASS LUMP]Onset: 54-29-8233TxrwnnjeVgrhw injuries and conditions due to external causes (1 source)Contusion; Translations: [Contusion of unspecified site]Onset: 45-59-3067UndclwikPlduk nervous system disorders (1 source)Neurogenic claudication; Translations: [Spinal Stenosis, lumbar region with neurogenic claudication]Onset: 70-36-8745DwrizgywXbxlj non-traumatic joint disorders (1 source)Pain in left ankle and joints of left footOnset: 11-07-2021 Resolved: 10-47-6930YtdfiavxFfubk non-traumatic joint disorders (1 source)Arthralgia of the ankle and/or foot; Translations: [Pain in joint, ankle and foot]Onset: 73-89-2967LoekzuuoWiovr non-traumatic joint disorders (1 source)Knee joint effusion; Translations: [Effusion, left knee]Onset: 71-27-0539DscpktczIzbrh non-traumatic joint disorders (1 source)Arthralgia of the lower leg; Translations: [Pain in right knee]Onset: 76-62-9983KxzmrsyoCspis screening for suspected conditions (not mental disorders or infectious disease) (6 sources)Encounter for screening mammogram for malignant neoplasm of breast; Translations: [Imaging of abdomen abnormal]Onset: 72-54-9296PgfgahwgAqctv skin disorders (1 source)Mass in head or neck; Translations: [Swelling, mass, or lump in head and neck]Onset: 06-65-7035HavhlsacWuhobygm codes; unclassified (1 source)Asymptomatic menopausal stateOnset: 01-28-2022 Resolved: 73-67-5783LlzzgifhZjomsqpd codes; unclassified (1 source)Family history of ischemic heart disease; Translations: [Family history of ischemic heart disease]Onset: 32-89-1533DlsihfbbAyvhobky codes; unclassified (1 source)Edema; Translations: [Edema]Onset: 07-05-8886QzygulwlUqxqjdyt codes; unclassified (1 source)Requires influenza virus vaccination; Translations: [Need for prophylactic vaccination and inoculation, Influenza]Onset: 84-22-2548Hbaepqfr Residual codes; unclassified (1 source)Localized edema; Translations: [Localized edema]Onset: 10-07-2016 EpisodicScreening and history of mental health and substance abuse codes (1 source)History of tobacco use; Translations: [Personal history of tobacco use, presenting hazards to health]Onset: 14-27-1360CutmxkmuYvtlkkutqkvf (1 source)Low back pain, unspecified M54.50Onset: 01-28-2022 Resolved: 22-34-3079Jkuhmtiozlsl (1 source)Acute cough R05.1Unclassified (1 source)Suspected COVID-19 virus infection Z20.822 Results Test NameValueInterpretationReference RangeFacilityBasophils Auto (Bld) [#/Vol] on 54-52-5189Xemzyjosc (Bld) [#/Vol]Automated basophil count0.0-0.1FSouthern [facility] Medical CenterBasophils (Bld) [#/Vol]0.0 10 3/uL0.0-0.1FSouthern [facility] Medical CenterBasophils/100 WBC Auto (Bld)on 39-08-2206Splmaddir/100 WBC (Bld)Automated basophil %0.2-2.0[facility] Basophils/100 WBC (Bld)0.6 %0.2-2.0[facility] CenterCholesterol in LDL Calc [Mass/Vol]on 52-40-8223Aipwdnptnhe in LDL [Mass/Vol]Cholesterol in LDL [Mass/volume] in Serum or Plasma by calculationFisher-Titus Medical CenterComment on above:<100 mg/dl AADDOMY282-506 mg/dl NEAR OR ABOVE TMHLWRS940- 159 mg/dl BORDERLINE MWXS786-042 mg/dl HIGH>190 mg/dl VERY HIGHCholesterol in LDL [Mass/Vol]52.0 mg/dLFisher-Titus Medical CenterComment on above:<100 mg/dl KMIBAUU870-756 mg/dl NEAR OR ABOVE EQLGUQW720-624 mg/dl BORDERLINE ESAL850-656 mg/dl HIGH>190 mg/dl VERY HIGHCholesterol in VLDL Calc [Mass/Vol]on 62-66-4351Krlqbiovuei in VLDL [Mass/Vol]Cholesterol in VLDL [Mass/volume] in Serum or Plasma by calculationFisher-Titus Medical CenterCholesterol in VLDL [Mass/Vol]10.0 mg/dLFisher-Titus Medical CenterEosinophils/100 WBC Auto (Bld)on 41-12-1534Fkcwdbmntzg/100 WBC (Bld)Automated eosinophil %0.9-7.0 [facility] CenterEosinophils/100 WBC (Bld)1.3 %0.9-7.0[facility] CenterErythrocyte distribution width Auto (RBC) [Ratio]on 56-93-7953Wfrglmrgfis distribution width (RBC) [Ratio]Erythrocyte distribution width [Ratio] by Automated count11.0-15.0[facility] Erythrocyte distribution width (RBC) [Ratio]14.6 %11.0-15.0[facility] CenterEstimated glomerular filtration rate (GFR) non- Americanon 85-94-4414NHD/1.73 sq M.predicted among non-blacks MDRD (S/P/Bld) [Vol rate/Area]Estimated glomerular filtration rate (GFR) non->=60 mL/min/1.73m 2FSouthern Ohio Medical CenterGFR/1.73 sq M.predicted among non-blacks MDRD (S/P/Bld) [Vol rate/Area]mL/min/{1.73_m2}>=60 mL/min/1.73m 2 [facility] CenterGlobulin Calc (S) [Mass/Vol]on 04-18-2025 Globulin (S) [Mass/Vol]Serum globulin measurement by calculation (mass/volume) [facility] CenterGlobulin (S) [Mass/Vol]3.5 g/dLFisher-Titus Medical CenterGlucose mean value [Mass/volume] in Blood Estimated from glycated hemoglobinon 17-40-1074Augvcxe glucose Estimated from glycated hemoglobin (Bld) [Mass/Vol]Glucose mean value [Mass/volume] in Blood Estimated from glycated hemoglobinFisher-Titus Medical CenterAverage glucose Estimated from glycated hemoglobin (Bld) [Mass/Vol]154 mg/dLFisher-Titus Medical CenterHematocrit Auto (Bld) [Volume fraction]on 99-44-7776Vkqzwqcolm (Bld) [Volume fraction]Hematocrit [Volume Fraction] of Blood by Automated count 36.0-48.0[facility] CenterHematocrit (Bld) [Volume fraction]41.2 %36.0-48.0[facility] CenterHemoglobin A1c percentageon 62-69-9015JuU7q (Bld) [Mass fraction]Hemoglobin A1c percentageHigh4.5-6.2 [facility] CenterComment on above:ADA RECOMMENDED LIMIT 4.0 - 6.0ADA THERAPEUTIC TARGET < 7.0ACTION SUGGESTED> 7.0HbA1c (Bld) [Mass fraction] 7.0 %High4.5-6.2FSouthern Ohio Medical CenterComment on above:ADA RECOMMENDED LIMIT 4.0 - 6.0ADA THERAPEUTIC TARGET < 7.0ACTION SUGGESTED> 7.0 Hemoglobin [Mass/volume] in Bloodon 32-56-9096Kllwwxzcjq (Bld) [Mass/Vol] Hemoglobin [Mass/volume] in Blood12.0-16.0[facility] Hemoglobin (Bld) [Mass/Vol]13.3 g/dL12.0-16.0[facility] Laboratory - Chemistry and Chemistry - challengeon 30-79-9809Efvjumm [Mass/Vol] 3.5 g/dL3.4-5.0[facility] CenterALP [Catalytic activity/Vol]103 U/X69-802IpadvypohFisher-Titus Medical CenterALT [Catalytic activity/Vol]25 U/L 14-59[facility] CenterAST [Catalytic activity/Vol]16 U/L15-37 [facility] CenterBilirubin [Mass/Vol]0.9 mg/dL0.2-1.0[facility] CenterCalcium [Mass/Vol]9.6 mg/dL8.5-10.1FSouthern [facility] Medical CenterChloride [Moles/Vol]103 mmol/T41-867CysnhehlaFisher-Titus Medical CenterCholesterol [Mass/Vol]140 mg/dL<=200[facility] Cholesterol in HDL [Mass/Vol]78 mg/gWQksy50-50YjtxvfalwFisher-Titus Medical Center Comment on above:> or =60 mg/dl - LOW CARDIOVASCULAR RISK<40 mg/dl - HIGH CARDIOVASCULAR RISKCO2 [Moles/Vol]30.8 mmol/L21.0-32.0[facility] CenterCreatinine [Mass/Vol]0.80 mg/dL0.55-1.02[facility] GFR/1.73 sq M.predicted MDRD (S/P/Bld) [Vol rate/Area]mL/min/{1.73_m2}>=60 mL/min/1.73m 2FSouthern [facility] Medical CenterGlucose [Mass/Vol]123 mg/dLHigh 74-106[facility] CenterPotassium [Moles/Vol]4.3 mmol/L3.5-5.1 [facility] CenterProtein [Mass/Vol]7.0 g/dL6.4-8.2FThe Jewish Hospitalodium [Moles/Vol]142 mmol/V692-367LkdhdjmfoFisher-Titus Medical CenterTriglyceride [Mass/Vol]50 mg/dL<=150[facility] CenterTSH Qn0.678 m[IU]/L0.358-3.740[facility] CenterUrea nitrogen [Mass/Vol]16.0 mg/dL7.0-18.0[facility] CenterUrea nitrogen/Creatinine [Mass ratio]20.0 mg/mgFisher-Titus Medical Center Laboratory - Hematology and Cell countson 64-30-8035Gimlpkjk granulocytes/100 WBC (Bld)0.6 %High0.0-0.5FSouthern [facility] Medical CenterLeukocytes [#/volume] corrected for nucleated erythrocytes in Blood by Automated counon 63-96-2861VBF corrected for nucl RBC Auto (Bld) [#/Vol]Leukocytes [#/volume] corrected for nucleated erythrocytes in Blood by Automated coun4.0-11.0[facility] CenterWBC corrected for nucl RBC Auto (Bld) [#/Vol]5.4 10 3/uL4.0-11.0 [facility] CenterLymphocytes Auto (Bld) [#/Vol]on 04-18-2025 Lymphocytes (Bld) [#/Vol]Lymphocytes [#/volume] in Blood by Automated countLow 1.2-3.8[facility] CenterLymphocytes (Bld) [#/Vol]0.7 10 3/uLLow 1.2-3.8[facility] CenterLymphocytes/100 WBC Auto (Bld)on 54-60-7805Itoqbfxgizt/100 WBC (Bld)Lymphocytes/100 leukocytes in Blood by Automated asjybHbb26.5-60.0[facility] CenterLymphocytes/100 WBC (Bld)13.5 %Low20.5-60.0[facility] HospitalH Auto (RBC) [Entitic mass]on 53-85-7808FRP (RBC) [Entitic mass]MCH [Entitic mass] by Automated count 26.7-34.0[facility] (RBC) [Entitic mass]29.2 pg 26.7-34.0[facility] Medical CenterMCHC Auto (RBC) [Mass/Vol]on 84-98-2980VEDH (RBC) [Mass/Vol]MCHC [Mass/volume] by Automated count29.9-35.2 [facility] HospitalHC (RBC) [Mass/Vol]32.3 g/dL29.9-35.2 [facility] CenterMCV Auto (RBC) [Entitic vol]on 24-02-0592AZF (RBC) [Entitic vol]MCV [Entitic volume] by Automated count81.0-99.0[facility] HospitalV (RBC) [Entitic vol]90.5 fL81.0-99.0[facility] CenterMicroalbumin [Mass/volume] in Urineon 42-22-8814Wlfzgrj DL <= 20 mg/L (U) [Mass/Vol]Microalbumin [Mass/volume] in Urine<=30.0[facility] CenterAlbumin DL <= 20 mg/L (U) [Mass/Vol]2.2 mg/dL<=30.0[facility] CenterMonocytes Auto (Bld) [#/Vol]on 43-55-6527Gofwwlssy (Bld) [#/Vol]Automated blood monocyte count0.3-0.8[facility] Monocytes (Bld) [#/Vol]0.5 10 3/uL0.3-0.8[facility] Monocytes/100 WBC Auto (Bld)on 08-98-4487Vwucyekeo/100 WBC (Bld)Automated monocyte %1.7-12.0[facility] CenterMonocytes/100 WBC (Bld)8.3 % 1.7-12.0[facility] CenterNeutrophils Auto (Bld) [#/Vol]on 35-23-3574Zrxnavpnbxr (Bld) [#/Vol]Neutrophils [#/volume] in Blood by Automated count1.4-6.5FSouthern [facility] Medical CenterNeutrophils (Bld) [#/Vol]4.1 10 3/uL1.4-6.5FSouthern [facility] Medical CenterNeutrophils/100 WBC Auto (Bld)on 79-65-6366Xpnziqwfmbu/100 WBC (Bld)Automated neutrophil %High43.0-75.0[facility] CenterNeutrophils/100 WBC (Bld)75.7 %High43.0-75.0[facility] CenterNo Panel Informationon 95-24-3912Cdfvt Random Creatinine 49.06 mg/dL20.00-300.00[facility] Medical CenterEosinophils # (Auto)0.1 10 3/uL0.0-0.7FSouthern Ohio Medical CenterImmature Granulocyte # (Auto)0.03 10 3/uL0.00-0.03[facility] Medical CenterPlatelet mean volume Auto (Bld) [Entitic vol]on 47-77-6811Gfsfvdxw mean volume (Bld) [Entitic vol]Platelet mean volume [Entitic volume] in Blood by Automated count9.5-13.5FSouthern Ohio Medical CenterPlatelet mean volume (Bld) [Entitic vol]10.2 fL9.5-13.5 [facility] Medical CenterPlatelets Auto (Bld) [#/Vol]on 04-18-2025 Platelets (Bld) [#/Vol]Platelets [#/volume] in Blood by Automated -917 [facility] Medical CenterPlatelets (Bld) [#/Vol]194 10 3/lA760-358 [facility] Medical CenterRB Auto (Bld) [#/Vol]on 86-40-2247XBN (d) [#/Vol]Erythrocytes [#/volume] in Blood by Automated count4.20-5.40[facility] (d) [#/Vol]4.55 10 6/uL4.20-5.40Centervilleerum or plasma albumin/globulin mass ratioon 04-18-2025 Albumin/Globulin [Mass ratio]Serum or plasma albumin/globulin mass ratio [facility] CenterAlbumin/Globulin [Mass ratio]1.0 {ratio} Centervilleerum or plasma anion gap determinationon 11-02-0680Olybr gap [Moles/Vol]Serum or plasma anion gap determinationFisher-Titus Medical CenterAnion gap [Moles/Vol]12.5 mmol/LFThe Jewish Hospitalerum or plasma total cholesterol/high density lipoprotein (HDL) cholesterol mass stephane 93-41-0258Bnthbnwenps.total/Cholesterol in HDL [Mass ratio]Serum or plasma total cholesterol/high density lipoprotein (HDL) cholesterol mass ratFisher-Titus Medical CenterComment on above:3.3 - 4.4 LOW RISK4.4 - 7.1 AVERAGE RISK7.1 - 11.0 MODERATE RISK>11.0 HIGH RISK Cholesterol.total/Cholesterol in HDL [Mass ratio]1.8 {ratio}[facility] Medical CenterComment on above:3.3 - 4.4 LOW RISK4.4 - 7.1 AVERAGE RISK7.1 - 11.0 MODERATE RISK>11.0 HIGH RISKUrine microalbumin/creatinine mass ratioon 19-99-3967Wannodj/Creatinine DL <= 20 mg/L (U) [Mass ratio]Urine microalbumin/creatinine mass ratioHigh0.0-29.9[facility] Comment on above:NO MICROALBUMINURIA 0-29 MG/GCLINICAL MICROALBUMINURIA 30-300 MG/GMACROALBUMINURIA >300 MG/GAlbumin/Creatinine DL <= 20 mg/L (U) [Mass ratio] 44.8 mg/gHigh0.0-29.9[facility] Medical CenterComment on above:NO MICROALBUMINURIA 0-29 MG/GCLINICAL MICROALBUMINURIA 30-300 MG/GMACROALBUMINURIA >300 MG/GGastroenterology Office/Clinic Noteon 06-39-4206Hinsmjptvbejmjwc Office/Clinic NoteGastroenterology Office/Clinic Note Chief Complaint 3 [...] mm Hg 3077F 2. 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 Redundant colon [...] days ago Toba (more content not included)... Wilson HealthComment on above:Result Comment: Electronically Signed By: Carmen Goss MA S\.br\Date and Time Signed: 04/11/25 10:07 EDT Ambulatory Visit Summaryon 17-06-8518Kfroxjanrk Visit SummaryAmbulatory Visit Summary SANDRA TAVAREZ :1940 [...] (Keppra 500 mg Tab) See instructions 1 / am 1 / 2 om Contact prescribing physician if questions [...] you for choosing us for your care. [facility] HealthAmbulatory Visit Summaryon 68-50-8992Trvnybxhnv Visit SummaryAmbulatory Visit Summary SANDRA TAVAREZ :1940 Visit Date:02/26/2025 [...] you for choosing us for your care. Wilson HealthINR in Platelet poor plasma by Coagulation assayOrdered By: Michael Dunaway on 82-32-4483SZT Coag (PPP) [Relative time]INR in Platelet poor plasma by Coagulation assayFisher-Titus Medical CenterComment on above:INR Therapeutic Range A) Pre- and Peroperative OAT started two weeks before surgery. NOT HIP SURGERY: 1.5 - 2.5 HIP SURGERY: 2 - 3B) Primary and secondary prevention of venous THROMBOSIS: 2 - 3C) Active venous thrombosis, pulmonary embolismand prevention of recurrent venous thrombosis: 2 - 3D) Prevention of arterial thromboembolismincluding patients with mechanical heart valves: 3 - 4.5Partial Thromboplastin Timeon 20-38-1526hLTH Coag (Bld) [Time]29.0 wDbzjuj74.1-36.5[facility] Physician GroupComment on above:Result Comment: A hematocrit value greater than 55% may lead to inaccurate results in coagulation testing. Patients having hematocrit values >55% require a special collection tube for coagulation studies. Please contact the laboratory at [phone] for redraw instructions. PERFORMED BY: [address] [address] PATHOLOGIST TELEPHONE WORKER ESDRAS MOREL M.D.Performed By: #### PT, PTT #### [address] [address] USAProthrombin Time INRon 58-22-5798CDZ Coag (PPP) [Relative time]1.1 {INR}NormalThe [facility] Health University City Physician GroupComment on above:Result Comment: INR Therapeutic [...] - 4.5Performed By: #### PT, PTT #### [facility] [address] [place] [address] USAPT Coag (PPP) [Time]13.1 sHigh9.0-12.9[facility] Physician GroupComment on above:Result Comment: A hematocrit value greater than 55% may lead to inaccurate results in coagulation testing. Patients having hematocrit values >55% require a special collection tube for coagulation studies. Please contact the laboratory at [phone] for redraw instructions.Performed By: #### PT, PTT #### [facility] [address] [place] [address] USAProthrombin time (PT)Ordered By: Michael Dunaway on 12-26-2024 PT Coag (PPP) [Time]Prothrombin time (PT)High9.0-12.9[facility] Medical CenterComment on above:A hematocrit value greater than 55% may lead to inaccurate results in coagulation testing. Patientshaving hematocrit values >55% require a special collection tube for coagulation studies. Please contact the laboratory at [phone] for redraw instructions.aPTT in Platelet poor plasma by Coagulation assayOrdered By: Michael Dunaway on 34-48-9385cPJB Coag (PPP) [Time] Activated partial thromboplastin time (aPTT) in platelet poor plasma by coagulation a25.1-36.5FSouthern Ohio Medical CenterComment on above:A hematocrit value greater than 55% may lead to inaccurate results in coagulation testing. Patientshaving hematocrit values >55% require a special collection tube for coagulation studies. Please contact the laboratory at [phone] for redraw instructions.INR in Platelet poor plasma by Coagulation assayOrdered By: Michael Dunaway on 03-15-9216XDK Coag (PPP) [Relative time]INR in Platelet poor plasma by Coagulation assayFisher-Titus Medical CenterComment on above:INR Therapeutic Range A) Pre- and Peroperative OAT started two weeks before surgery. NOT HIP SURGERY: 1.5 - 2.5 HIP SURGERY: 2 - 3B) Primary and secondary prevention of venous THROMBOSIS: 2 - 3C) Active venous thrombosis, pulmonary embolismand prevention of recurrent venous thrombosis: 2 - 3D) Prevention of arterial thromboembolismincluding patients with mechanical heart valves: 3 - 4.5 Prothrombin Time INRon 50-18-2280OXU Coag (PPP) [Relative time]1.6 {INR}Normal [facility] Physician [facility] RankinComment on above:Result Comment: INR Therapeutic Range A) [...] heart valves: 3 - 4.5 PERFORMED BY: [place] [address] PATHOLOGIST TELEPHONE WORKER ESDRAS MOREL M.D.Performed By: #### PT #### [facility] [address] [place], [place] [id number] USAPT Coag (PPP) [Time]18.8 sHigh9.0-12.9[facility] Physician [facility] RankinComment on above:Result Comment: A hematocrit value greater than 55% may lead to inaccurate results in coagulation testing. Patients having hematocrit values >55% require a special collection tube for coagulation studies. Please contact the laboratory at [phone] for redraw instructions.Performed By: #### PT #### [facility] [address] [place] [address] USAProthrombin time (PT)Ordered By: Michael Dunaway on 12-24-2024 PT Coag (PPP) [Time]Prothrombin time (PT)High9.0-12.9[facility] Medical CenterComment on above:A hematocrit value greater than 55% may lead to inaccurate results in coagulation testing. Patientshaving hematocrit values >55% require a special collection tube for coagulation studies. Please contact the laboratory at [phone] for redraw instructions.Basophils Auto (Bld) [#/Vol] on 44-05-3355Ohddfzvlj (Bld) [#/Vol]Automated basophil count0.0-0.1FSouthern Ohio Medical CenterBasophils/100 WBC Auto (Bld)on 98-05-5526Srkziwcyg/100 WBC (Bld)Automated basophil %0.2-2.0[facility] Eosinophils/100 WBC Auto (Bld)on 07-23-6798Pyksdksuznx/100 WBC (Bld)Automated eosinophil %0.9-7.0[facility] Medical CenterErythrocyte distribution width Auto (RBC) [Ratio]on 15-70-0001Pgpboknuykm distribution width (RBC) [Ratio]Erythrocyte distribution width [Ratio] by Automated count11.0-15.0 [facility] Medical CenterGlucose mean value [Mass/volume] in Blood Estimated from glycated hemoglobinon 66-97-7258Qpgxyxy glucose Estimated from glycated hemoglobin (Bld) [Mass/Vol]Glucose mean value [Mass/volume] in Blood Estimated from glycated hemoglobinFisher-Titus Medical CenterHematocrit Auto (Bld) [Volume fraction]on 29-44-5461Plczpihvsr (Bld) [Volume fraction] Hematocrit [Volume Fraction] of Blood by Automated count36.0-48.0[facility] Medical CenterHemoglobin [Mass/volume] in Bloodon 47-12-6150Qnhbkrbttz (Bld) [Mass/Vol]Hemoglobin [Mass/volume] in Blood12.0-16.0[facility] CenterLaboratory - Chemistry and Chemistry - challengeon 12-12-2024 Ferritin [Mass/Vol]39.0 ng/mL8.0-252.0[facility] Laboratory - Hematology and Cell countson 74-45-5481RuG3h (Bld) [Mass fraction] 6.5 %High4.5-6.2FSouthern Ohio Medical CenterComment on above:ADA RECOMMENDED LIMIT 4.0 - 6.0ADA THERAPEUTIC TARGET < 7.0ACTION SUGGESTED> 7.0 Immature granulocytes/100 WBC (Bld)0.4 %0.0-0.5FSouthern [facility] Medical Center Leukocytes [#/volume] corrected for nucleated erythrocytes in Blood by Automated counon 83-85-5569RWN corrected for nucl RBC Auto (Bld) [#/Vol]Leukocytes [#/volume] corrected for nucleated erythrocytes in Blood by Automated coun 4.0-11.0[facility] Medical CenterLymphocytes Auto (Bld) [#/Vol]on 20-47-6499Wfihkxxnvvs (Bld) [#/Vol]Lymphocytes [#/volume] in Blood by Automated countLow1.2-3.8[facility] Medical CenterLymphocytes/100 WBC Auto (Bld)on 29-93-9090Dxudfvdqptu/100 WBC (Bld)Lymphocytes/100 leukocytes in Blood by Automated kdjbiCfx05.5-60.0[facility] HospitalH Auto (RBC) [Entitic mass]on 05-62-0119PLD (RBC) [Entitic mass]MCH [Entitic mass] by Automated count26.7-34.0[facility] Medical CenterMCHC Auto (RBC) [Mass/Vol]on 48-59-7750LTJU (RBC) [Mass/Vol]MCHC [Mass/volume] by Automated count29.9-35.2FSouthern Ohio Medical CenterMCV Auto (RBC) [Entitic vol]on 61-35-1157BRW (RBC) [Entitic vol]MCV [Entitic volume] by Automated count 81.0-99.0[facility] Medical CenterMonocytes Auto (Bld) [#/Vol]on 19-38-5676Gqjmzsiao (Bld) [#/Vol]Automated blood monocyte count0.3-0.8[facility] Medical CenterMonocytes/100 WBC Auto (Bld)on 17-35-3715Cdthizzyi/100 WBC (Bld)Automated monocyte %1.7-12.0[facility] Neutrophils Auto (Bld) [#/Vol]on 13-06-6821Dafijzrmxgv (Bld) [#/Vol]Neutrophils [#/volume] in Blood by Automated count1.4-6.5FSouthern [facility] Medical Center Neutrophils/100 WBC Auto (Bld)on 58-21-8833Geqstnuiiwd/100 WBC (Bld)Automated neutrophil %High43.0-75.0[facility] Medical CenterNo Panel Informationon 05-29-1074Erdbdpmoibe # (Auto)0.1 10 3/uL0.0-0.7FSouthern Ohio Medical CenterImmature Granulocyte # (Auto)0.02 10 3/uL0.00-0.03[facility] Medical CenterPlatelet mean volume Auto (Bld) [Entitic vol]on 23-93-3720Kvwmtmqh mean volume (Bld) [Entitic vol]Platelet mean volume [Entitic volume] in Blood by Automated count9.5-13.5FSouthern Ohio Medical CenterPlatelets Auto (Bld) [#/Vol]on 68-13-2356Yyvhsaczw (Bld) [#/Vol]Platelets [#/volume] in Blood by Automated -495ZaaaobwexFisher-Titus Medical CenterRBC Auto (Bld) [#/Vol]on 03-84-1689JAL (Bld) [#/Vol]Erythrocytes [#/volume] in Blood by Automated count 4.20-5.40[facility] Medical CenterINR in Platelet poor plasma by Coagulation assayOrdered By: Michael Dunaway on 27-08-3247TPV Coag (PPP) [Relative time]1.3 {INR}NormalFisher-Titus Medical CenterComment on above:INR Therapeutic Range A) Pre- and [...] heart valves: 3 - 4.5 PERFORMED BY: [facility] [address] [place] [address] PATHOLOGIST TELEPHONE WORKER HERMELINDO BLUM M.D.Performed By: #### PT #### [facility] [address] [place] [address] USAProthrombin time (PT)Ordered By: Michael Dunaway on 08-10-2024 PT Coag (PPP) [Time]15.1 sHigh9.0-12.9[facility] Medical CenterComment on above:A hematocrit value greater than 55% may lead to inaccurate results in coagulation testing. Patientshaving hematocrit values >55% require a special collection tube for coagulation studies. Please contact the laboratory at [phone] for redraw instructions.Result Comment: A hematocrit value greater than 55% may lead to inaccurate results in coagulation testing. Patients having hematocrit values >55% require a special collection tube for coagulation studies. Please contact the laboratory at [phone] for redraw instructions.Performed By: #### PT #### [address] [address] USAINR in Platelet poor plasma by Coagulation assayOrdered By: Michael Dunaway on 69-93-1829WFQ Coag (PPP) [Relative time]1.7 {INR}Normal [facility]itus Medical CenterComment on above:INR Therapeutic Range A) Pre- and [...] heart valves: 3 - 4.5 PERFORMED BY: [address] [address] PATHOLOGIST TELEPHONE WORKER HERMELINDO BLUM M.D.Performed By: #### PT #### [address] [address] USAProthrombin time (PT)Ordered By: Michael Dunaway on 08-09-2024 PT Coag (PPP) [Time]19.0 sHigh9.0-12.9[facility] Medical CenterComment on above:A hematocrit value greater than 55% may lead to inaccurate results in coagulation testing. Patientshaving hematocrit values >55% require a special collection tube for coagulation studies. Please contact the laboratory at [phone] for redraw instructions.Result Comment: A hematocrit value greater than 55% may lead to inaccurate results in coagulation testing. Patients having hematocrit values >55% require a special collection tube for coagulation studies. Please contact the laboratory at [phone] for redraw instructions.Performed By: #### PT #### [address] [address] USAMR lumbar spine wo conon 10-90-7374OB lumbar spine wo con [facility] [place] [address] [place] [address] MRI Report Signed Patient: Sandra Tavarez MR#: [id number] 7 : 1940 Acct:[id number] Age/Sex: 83 / F ADM Date: 06/15/24 Loc: Room: Type: [facility] Attending Dr: Michael Dunaway MD Copies [...] Tex Diaz M.D.06/15/2024 8:35 PM Dictation Location: [place] [address] Transcribed By: [facility] 06/15/242034 Dictated By: Tex Diaz II, MD 06/15/242025 Signed By: 06/15/242034NoNovant Health/NHRMC Physician GroupINR in Platelet poor plasma by Coagulation assayon 65-14-4975RHV Coag (PPP) [Relative time]1.36 {INR}[facility] Medical CenterComment on above:DESIRED INR:2.0-3.0 CONDITIONS NOT LISTED BELOW2.5-3.5 FOR PROSTHETIC HEART VALVE REPLACEMENT2.5-3.5 RECURRENT THROMBOSISProthrombin time (PT)on 32-27-1388TU Coag (PPP) [Time]14.0 sHigh 9.0-11.6FSouthern Ohio Medical CenterXR pelvis 1-2Von 60-15-8785GF pelvis 1-2VSELECT [facility] [place] [address] XRay Report Signed Patient: Sandra Tavarez MR#: [id number] 7 : 1940 Acct:[id number] Age/Sex: 83 / F ADM Date: 05/07/24 Loc: XD Room: Type: PRE CLI Attending Dr: Michael Dunaway MD Copies to: Michael Dunaway MD Ordering Provider: Michael Dunaway MD Date of Service: 05/09/24 XR/XR pelvis 1-2V: M70.70 - Other bursitis of hip, unspecified hip ([id number]) XR/XR lumbar spine AP/LAT/FLX/EXT: M47.817 - Spondylosis without myelopathy or radiculopathy... ([id number]) XR/XR sacrum coccyx min 2V: M47.818 - [...] Orozco Jr., D.OKen05/09/2024 3:59 PM Dictation Location: [place] [address] Transcribed By: [facility] 05/09/24 1559 Dictated By: Jaspreet Orozco Jr, DO 05/09/24 1556 Signed By: 05/09/24 1559[facility] Physician GroupINR in Platelet poor plasma by Coagulation assayOrdered By: Michael Dunaway on 21-79-7742FHL Coag (PPP) [Relative time]2.0 {INR}[facility] Greene MemorialComment on above:INR Therapeutic Range A) Pre- and [...] heart valves: 3 - 4.5 PERFORMED BY: [facility] [address] [place] [address] PATHOLOGIST TELEPHONE WORKER HERMELINDO BLUM M.D.Performed By: #### PT #### [facility] [address] [place] [address] USAProthrombin time (PT)Ordered By: Michael Dunaway on 05-07-2024 PT Coag (PPP) [Time]22.3 sHigh9.0-12.9[facility] Medical CenterComment on above:A hematocrit value greater than 55% may lead to inaccurate results in coagulation testing. Patientshaving hematocrit values >55% require a special collection tube for coagulation studies. Please contact the laboratory at [phone] for redraw instructions.Result Comment: A hematocrit value greater than 55% may lead to inaccurate results in coagulation testing. Patients having hematocrit values >55% require a special collection tube for coagulation studies. Please contact the laboratory at [phone] for redraw instructions.Performed By: #### PT #### [facility] [address] [place] [address] USABasophils Auto (Bld) [#/Vol]on 17-41-3381Smfojltmr (Bld) [#/Vol]0.0 10 3/uL0.0-0.1FSouthern Ohio Medical CenterBasophils/100 WBC Auto (Bld)on 11-08-9277Wftkggtrt/100 WBC (Bld)0.7 %0.2-2.0[facility] Medical CenterCholesterol in LDL Calc [Mass/Vol]on 34-32-4224Stfntycpavz in LDL [Mass/Vol]43.0 mg/dLFisher-Titus Medical CenterComment on above:<100 mg/dl CVIHKSL168-736 mg/dl NEAR OR ABOVE GTIMJRD075-955 mg/dl BORDERLINE ACYY930-429 mg/dl HIGH>190 mg/dl VERY HIGHCholesterol in VLDL Calc [Mass/Vol]on 04-30-2024 Cholesterol in VLDL [Mass/Vol]10.6 mg/dLFisher-Titus Medical Center Eosinophils/100 WBC Auto (Bld)on 55-03-5784Baybesirrji/100 WBC (Bld)1.9 %0.9-7.0 [facility] Medical CenterErythrocyte distribution width Auto (RBC) [Ratio]on 28-57-6203Kcissryofkl distribution width (RBC) [Ratio]13.6 %11.0-15.0 [facility] Medical CenterEstimated glomerular filtration rate (GFR) non- Americanon 39-35-0568KOZ/1.73 sq M.predicted among non-blacks MDRD (S/P/Bld) [Vol rate/Area]mL/min/{1.73_m2}>=60[facility] Globulin Calc (S) [Mass/Vol]on 54-05-5603Friavigc (S) [Mass/Vol]3.4 g/dL [facility] Medical CenterGlucose mean value [Mass/volume] in Blood Estimated from glycated hemoglobinon 06-29-7851Fmtgqnd glucose Estimated from glycated hemoglobin (Bld) [Mass/Vol]137 mg/dLFisher-Titus Medical Center Hematocrit Auto (Bld) [Volume fraction]on 92-94-7147Gsxvxisdvf (Bld) [Volume fraction]39.8 %36.0-48.0[facility] Medical CenterHemoglobin [Mass/volume] in Bloodon 71-30-9092Hhjpcxxpoa (Bld) [Mass/Vol]13.0 g/dL12.0-16.0 [facility] CenterLaboratory - Chemistry and Chemistry - challengeon 87-69-2796Emnucgc [Mass/Vol]3.5 g/dL3.4-5.0[facility] Medical CenterALP [Catalytic activity/Vol]89 U/O16-862YbppcdehhFisher-Titus Medical CenterALT [Catalytic activity/Vol]25 U/N94-03QrdxnkxetFisher-Titus Medical Center AST [Catalytic activity/Vol]21 U/A99-55KbjlvyfssFisher-Titus Medical Center Bilirubin [Mass/Vol]1.1 mg/dLHigh0.2-1.0[facility] Medical CenterCalcium [Mass/Vol]9.3 mg/dL8.5-10.1FSouthern Ohio Medical CenterChloride [Moles/Vol]105 mmol/Y51-415OweuzcpbxFisher-Titus Medical CenterCholesterol [Mass/Vol]123 mg/dL<=200[facility] CenterCholesterol in HDL [Mass/Vol]70 mg/lYRhch68-03MaeznnfhaFisher-Titus Medical CenterComment on above:> or =60 mg/dl - LOW CARDIOVASCULAR RISK<40 mg/dl - HIGH CARDIOVASCULAR RISKCO2 [Moles/Vol]26.1 mmol/L21.0-32.0[facility] Medical CenterCreatinine [Mass/Vol]0.71 mg/dL0.55-1.02[facility] Medical CenterGFR/1.73 sq M.predicted MDRD (S/P/Bld) [Vol rate/Area]mL/min/{1.73_m2}>=60[facility] Medical CenterGlucose [Mass/Vol]96 mg/aY49-312ZmgbevisrFisher-Titus Medical Center Potassium [Moles/Vol]4.0 mmol/L3.5-5.1FSouthern Ohio Medical CenterProtein [Mass/Vol]6.9 g/dL6.4-8.2FThe Jewish Hospitalodium [Moles/Vol]141 mmol/W656-168EgblpvvbbFisher-Titus Medical CenterTriglyceride [Mass/Vol]53 mg/dL <=150Fisher-[facility] Medical CenterTSH Qn0.705 m[IU]/L0.358-3.740[facility] Medical CenterUrea nitrogen [Mass/Vol]16.0 mg/dL7.0-18.0[facility] Medical CenterUrea nitrogen/Creatinine [Mass ratio]22.5 mg/mgFisher-Titus Medical CenterLaboratory - Hematology and Cell countson 53-84-4591YzH4w (Bld) [Mass fraction]6.4 %High4.5-6.2FSouthern Ohio Medical CenterComment on above:ADA RECOMMENDED LIMIT 4.0 - 6.0ADA THERAPEUTIC TARGET < 7.0ACTION SUGGESTED> 7.0Immature granulocytes/100 WBC (Bld)0.4 %0.0-0.5FSouthern Ohio Medical CenterLeukocytes [#/volume] corrected for nucleated erythrocytes in Blood by Automated counon 27-49-0596VFJ corrected for nucl RBC Auto (Bld) [#/Vol]5.3 10 3/uL4.0-11.0[facility] Medical CenterLymphocytes Auto (Bld) [#/Vol]on 55-62-3242Tdllandwmfc (Bld) [#/Vol]1.0 10 3/uLLow1.2-3.8 [facility] Medical CenterLymphocytes/100 WBC Auto (Bld)on 04-30-2024 Lymphocytes/100 WBC (Bld)17.8 %Low20.5-60.0[facility] County HospitalH Auto (RBC) [Entitic mass]on 72-77-3922WMF (RBC) [Entitic mass]30.1 pg26.7-34.0 [facility] HospitalHC Auto (RBC) [Mass/Vol]on 67-27-4592WKBT (RBC) [Mass/Vol]32.7 g/dL29.9-35.2FSouthern Ohio Medical CenterMCV Auto (RBC) [Entitic vol]on 10-03-5536VTX (RBC) [Entitic vol]92.1 fL81.0-99.0[facility] Medical CenterMonocytes Auto (Bld) [#/Vol]on 50-25-6968Nrzwvvojf (Bld) [#/Vol]0.6 10 3/uL0.3-0.8[facility] Medical CenterMonocytes/100 WBC Auto (Bld)on 84-13-8673Zvmffzvoh/100 WBC (Bld)10.3 %1.7-12.0[facility] Medical CenterNeutrophils Auto (Bld) [#/Vol]on 78-74-6745Nztcmioszqg (Bld) [#/Vol]3.7 10 3/uL1.4-6.5FSouthern Ohio Medical CenterNeutrophils/100 WBC Auto (Bld)on 85-40-5605Mcmgnlodlaz/100 WBC (Bld)68.9 %43.0-75.0[facility] CenterNo Panel Informationon 19-17-5886Ibeesiqplxn # (Auto)0.1 10 3/uL0.0-0.7FSouthern Ohio Medical CenterImmature Granulocyte # (Auto)0.02 10 3/uL0.00-0.03[facility] Medical CenterPlatelet mean volume Auto (Bld) [Entitic vol]on 98-62-4887Hucimnrv mean volume (Bld) [Entitic vol]10.5 fL 9.5-13.5FSouthern Ohio Medical CenterPlatelets Auto (Bld) [#/Vol]on 83-23-0012Uoqxfqfoe (Bld) [#/Vol]188 10 3/lU449-121ZionibiljFisher-Titus Medical CenterRBC Auto (Bld) [#/Vol]on 28-88-4885FKB (Bld) [#/Vol]4.32 10 6/uL4.20-5.40 Centervilleerum or plasma albumin/globulin mass ratioon 08-39-5612Cjqvcvo/Globulin [Mass ratio]1.0 {ratio}Centervilleerum or plasma anion gap determinationon 57-61-4423Czsde gap [Moles/Vol] 13.9 mmol/LFThe Jewish Hospitalerum or plasma total cholesterol/high density lipoprotein (HDL) cholesterol mass stephane 04-30-2024 Cholesterol.total/Cholesterol in HDL [Mass ratio]1.8 {ratio}[facility] Medical CenterComment on above:3.3 - 4.4 LOW RISK4.4 - 7.1 AVERAGE RISK7.1 - 11.0 MODERATE RISK>11.0 HIGH RISKBacteria identified Aer cx Nom (Unsp spec) Ordered By: Juancarlos Campbell on 66-32-6227Rmeiwbbquvo Wound CulturePseudomonas aeruginosaCentervilleuperficial Wound Cultureon 93-64-7576Qulggwzhmir Wound CultureLT POSTERIOR ANKLE AND LEFT LEG [...] RESISTANT TO ALL B-LACTAM DRUGS. PERFORMED BY: [place] [address] PATHOLOGIST TELEPHONE WORKER HERMELINDO BLUM M.D.[facility] Physician GroupComment on above:Performed By: #### CUSUP #### [place] [id number] USAMG MAMM SCREEN 3D KRISTOFER CADon 58-57-7093FL MAMM SCREEN 3D KRISTOFER CADPatient: SANDRA TAVAREZ Exam Date: 04/07/2023 : 1940 Gender:F Ordering : DR ROBERT VAIL D.O. Admission #: [id number] Family : Order #: [id number] CLICK HERE TO VIEW EXAM RADIOLOGY REPORT [...] leukemia cancer at age 43. LOCATION: [facility] BREAST COMPOSITION: Scattered areas fibroglandular density. [...] by: Nida Alvarez M.D. on 04/07/2023 at 14:36NormalThUniversity Hospitals Geauga Medical Center AUTO DIFFon 22-03-3949BQYO #0.1 103/ulNormal0.0-0.1[facility] HospitalComment on above:Performed By: #### CBC ####[facility] [address] [place], [place] [address]Dr.Gaurav ChangBasophils/100 WBC (Bld)0.9 %Normal0.2-2.0[facility] HospitalComment on above:Performed By: #### CBC ####[facility] [address] [place], [place] [address]Dr.Yilan ChangEO #0.1 103/ulNormal0.0-0.7The [facility] HospitalCompontiac [facility] on above:Performed By: #### CBC ####[facility] [address] [place], [place] [address]Dr.Gaurav ChangEosinophils/100 WBC (Bld)1.2 %Normal 0.9-7.0The [facility] HospitalComment on above:Performed By: #### CBC ####[facility] Bbfhy[address]je[address] [place], [place] [address]Dr.Gaurav Louis Erythrocyte distribution width (RBC) [Ratio]13.2 %Wybvlv67.0-15.0The [facility] HospitalComment on above:Performed By: #### CBC ####[facility] Uqqifpup[address] [place], [place] [address]Dr.Gaurav ChangHematocrit (Bld) [Volume fraction]44.1 %Kbtype75.0-48.0The [facility] HospitalComment on above:Performed By: #### CBC ####[facility] [address]fmwikyosr[address] [place], [place] [address]Dr.Gaurav ChangHemoglobin (Bld) [Mass/Vol]14.7 g/dL Kzxipd64.0-16.0The [facility] HospitalComment on above:Performed By: #### CBC ####[facility] [address] [id number]. Gaurav LouisIG #0.02 10e3/ulNormal0.00-0.03The [facility] HospitalComment on above: Performed By: #### CBC ####[facility] [address] [address]Dr.Gaurav LouisIG %0.4 %Normal0.0-0.5The [facility] HospitalComment on above:Performed By: #### CBC ####[facility] [address] [address]Dr.Gaurav LouisLYMPH #0.9 103/ulCritically low1.2-3.8The [facility] HospitalComment on above:Performed By: #### CBC ####[facility] [address] [place] [address] [address]Dr.Gaurav LuoisLymphocytes/100 WBC (Bld)16.5 %Critically low20.5-60.0The [facility] HospitalComment on above:Performed By: #### CBC ####[facility] [address] [place] [address] [address]Dr.Gaurav LouisMANUAL DIFF REQ NONormalThe [facility] HospitalComment on above:Performed By: #### CBC ####[facility] [address] [place] [address] [address]Dr. Gaurav LouisADIRONDACK [facility] (RBC) [Entitic mass]30.7 klHrrowq43.7-34.0The [facility] Comment on above:Performed By: #### CBC ####[facility] [address] [place], [place] [address]Dr.Gaurav LouisHC (RBC) [Mass/Vol]33.3 g/dL Tafufl99.9-35.2The [facility] HospitalComment on above:Performed By: #### CBC ####[facility] [address]xv[address] [place], [place] [address]Dr. Gaurav LouisV (RBC) [Entitic vol]92.1 uYNfuzkj69.0-99.0The [facility] Comment on above:Performed By: #### CBC ####[facility] [address] [address]Dr.Gaurav LouisMONO #0.5 103/ulNormal0.3-0.8 [facility] on above:Performed By: #### CBC ####[facility] Posljcyqzb[address] [place], [place] [address]Dr.Gaurav Louis Monocytes/100 WBC (Bld)8.0 %Normal1.7-12.0The [facility] HospitalComment on above: Performed By: #### CBC ####[facility] Pieikbzbf[address] [place], [place] [address]Dr.Violettelan HeribertoNEUT #4.1 103/ulNormal1.4-6.5The [facility] HospitalComment on above:Performed By: #### CBC ####[facility] [address]jrasir[address] [place], [place] [address]Dr.Gaurav LouisNeutrophils/100 WBC (Bld)73.0 %Xckxqd81.0-75.0The [facility] HospitalComment on above:Performed By: #### CBC ####[facility] Jq[address] [place], [place] [address]Dr.Gaurav LouisPlatelet mean volume (Bld) [Entitic vol]10.0 fLNormal9.5-13.5 The [facility] HospitalCompont[facility] on above:Performed By: #### CBC ####[facility] X[address]zq[address]ra[address] [place], [place] [address]Dr.Violettelan EhoxiGRL965 103/dhIqlfeb038-370Vsd [facility] HospitalComment on above:Performed By: #### CBC ####[facility] Qrvjzsghuw[address] [place], [place] [address]Dr. Violettelan ChangRBC4.79 106/ulNormal4.20-5.40[facility] [place] [facility] on above: Performed By: #### CBC ####[facility] Omnsqikfbx[address] [place], [place] [address]Dr.Violettelan ChangWBC5.6 103/ulNormal4.0-11.0The [facility] HospitalComment on above:Performed By: #### CBC ####[facility] [address] [address]Dr.Yilan LouisGLYCOHEMOGLOBIN A1Con 29-19-8545XWX RECOMMENDATIONSEE [facility]Comp[facility] on above:Result Comment: ADA RECOMMENDED LIMIT 4.0 - 6.0 ADA THERAPEUTIC TARGET < 7.0 ACTION SUGGESTED > 7.0Performed By: #### A1C #### [facility] [address] [address] [address] Gaurav LouisGlucose [Mass/Vol]148 mg/dLNoCherrington HospitalComment on above:Performed By: #### A1C #### [facility] [address] [address] [address] Gaurav LouisHbA1c (Bld) [Mass fraction]6.8 %Critically high4.5-6.2The [facility] HospitalComment on above:Performed By: #### A1C #### [facility] [address] [address] [address] Gaurav LouisLIPID PROFILEon [id number]-HDL RATIO NORMSEE [facility]Comp[facility] on above:Result Comment: 3.3 - 4.4 LOW RISK 4.4 - 7.1 AVERAGE RISK 7.1 - 11.0 MODERATE RISK >11.0 HIGH RISKPerformed By: #### TSH, LIPID, BMP #### [facility] [address] [address] [address] Gaurav LouisCholesterol [Mass/Vol]137 mg/dLNormal<=200The [facility] Comment on above:Performed By: #### TSH, LIPID, BMP #### [facility] [address] [address] [address] Gaurav LouisCholesterol in HDL [Mass/Vol]63 mg/dLCritically bapi98-31Hcm [facility] [place] [facility] on above:Performed By: #### TSH, LIPID, BMP #### [facility] [address] [address] [address] Gaurav Pittmanesterol in LDL [Mass/Vol]57.8 mg/dLNoCherrington HospitalComment on above:Performed By: #### TSH, LIPID, BMP #### [facility] [address] [address] [address] Gaurav LouisCholesterol.total/Cholesterol in HDL [Mass ratio]2.2 {ratio} NormalThe [facility] HospitalComment on above:Performed By: #### TSH, LIPID, BMP #### [facility] [address] [address] [address] Gaurav Amador NORMAL> or = 60 mg/dl - LOW CARDIOVASCULAR RISK <40 mg/dl - HIGH CARDIOVASCULAR RISKNoCherrington HospitalComment on above:Performed By: #### TSH, LIPID, BMP #### [facility] [address] [address] [address] Gaurav LouisLDL CALC NORMALSEE BELOWMorrow County HospitalComment on above:Result Comment: <100 mg/dl OPTIMAL 100 - 129 mg/dl NEAR OR ABOVE OPTIMAL 130 - 159 mg/dl BORDERLINE HIGH 160 - 189 mg/dl HIGH >190 mg/dl VERY HIGH Performed By: #### TSH, LIPID, BMP #### [facility] [address] [address] [address] Gaurav LouisTriglyceride [Mass/Vol]81 mg/dLNormal<=150The [facility] Comment on above:Performed By: #### TSH, LIPID, BMP #### [facility] [address] [address] [address] Gaurav LouisVLDL CALC16.2 mg/dLNormGood Samaritan HospitalComment on above: Performed By: #### TSH, LIPID, BMP #### [facility] [address] [address] [address] Gaurav LouisMICROALBUMIN, RAND URon 16-88-3444hBFG3.8 mg/LNormal<=30.0The [facility] HospitalComment on above:Performed By: #### MALBR #### [facility] [address] [address] [address] Gaurav LouisPROF CHEM 8 (BAS METB)on 62-82-3567Dbrwe gap [Moles/Vol]13.4 mmol/LNormalThe [facility] HospitalComment on above:Performed By: #### TSH, LIPID, BMP #### [facility] [address] [place] [address] Dr. Gaurav LouisCalcium [Mass/Vol]9.7 mg/dLNormal8.5-10.1[facility] Comment on above:Performed By: #### TSH, LIPID, BMP #### [facility] [address] [place] [address] Dr. Gaurav LouisChloride [Moles/Vol]103 mmol/YHrsgue52-836Rql [facility] Comment on above:Performed By: #### TSH, LIPID, BMP #### [facility] [address] [place] [address] Dr. Gaurav LouisCO2 [Moles/Vol]28.2 mmol/JCadyfi73.0-32.0The [facility] Comment on above:Performed By: #### TSH, LIPID, BMP #### [facility] [address] [place] [address] Dr. Gaurav LouisCreatinine [Mass/Vol]0.94 mg/dLNormal0.55-1.02The [facility] HospitalComment on above:Performed By: #### TSH, LIPID, BMP #### [facility] [address] [place] [address] Dr. Nolasco ChangEGFR-AF NEPALESE>60Normal>=60The [facility] HospitalComment on above:Performed By: #### TSH, LIPID, BMP #### [facility] [address] [place] [address] Dr. Gaurav OntiverosGFR-NON AF VIVQKAAN66 mL/min/1.32d7Xuardhhfmf low>=60The [facility] HospitalComment on above:Performed By: #### TSH, LIPID, BMP #### [facility] [address] [place] [address] Dr. Gaurav LouisGlucose [Mass/Vol]155 mg/dLCritically vmrr56-243Iww [facility] HospitalComment on above:Performed By: #### TSH, LIPID, BMP #### [facility] [address] [address] [address] Gaurav LouisPotassium [Moles/Vol]3.6 mmol/LNormal3.5-5.1The [facility] Comment on above:Performed By: #### TSH, LIPID, BMP #### [facility] [address] [address] [address] Gaurav LouisSodium [Moles/Vol]141 mmol/RQjltkn166-660Hpp [facility] Comment on above:Performed By: #### TSH, LIPID, BMP #### [facility] [address] [address] [address] Gaurav LouisUrea nitrogen [Mass/Vol]19.0 mg/dLCritically high7.0-18.0The [facility] HospitalComment on above:Performed By: #### TSH, LIPID, BMP #### [facility] [address] [place] [address] Dr. Gaurav Taylor nitrogen/Creatinine [Mass ratio]20.2 mg/mgNormalThe [facility] HospitalComment on above:Performed By: #### TSH, LIPID, BMP #### [facility] [address] [place] [address] Dr. Gaurav San 63-18-1004ZOJ8.784 uIU/mLNormal0.358-3.740The [facility] HospitalComment on above:Performed By: #### TSH, LIPID, BMP #### [facility] [address] [place] [address] Dr. Gaurav Brooks-CoV-2 (COVID-19) RNA LANDEN+probe Ql (Resp)on 09-11-2022 SARS-CoV-2 (COVID-19) RNA LANDEN+probe Ql (Unsp spec)PositiveNort [facility] Other cbc AUTO DIFFon [id number] #0.1 103/ulNormal 0.0-0.1The [facility] HospitalComment on above:Performed By: #### CBC #### [facility] [address] [place] [address] Dr. Yilan ChangBasophils/100 WBC (Bld)0.5 %Normal0.2-2.0[facility] Comment on above:Performed By: #### CBC #### [facility] [address] [place] [address] Dr. Gaurav Pal #0.1 103/ulNormal0.0-0.7The [facility] HospitalComment on above: Performed By: #### CBC #### [facility] [address] [place] [address] Dr. Gaurav Ontiverososinophils/100 WBC (Bld)0.7 %Critically low0.9-7.0The [facility] HospitalComment on above:Performed By: #### CBC #### [facility] [address] [place] [address] Dr. Gaurav Ontiverosrythrocyte distribution width (RBC) [Ratio]22.5 %Critically high 11.0-15.0The [facility] HospitalComment on above:Result Comment: 2+ anisocytosis Performed By: #### CBC #### [facility] [address] [place] [address] Dr. Gaurav LouisHematocrit (Bld) [Volume fraction]41.4 %Obzsqt24.0-48.0The [facility] HospitalComment on above:Performed By: #### CBC #### [facility] [address] [place] [address] Dr. Gaurav LouisHemoglobin (Bld) [Mass/Vol]13.4 g/gOEujpgn20.0-16.0The [facility] HospitalComment on above:Performed By: #### CBC #### [facility] [address] [place] [address] Dr. Gaurav Pineda #0.04 10e3/ulCritically high0.00-0.03The [facility] Comment on above:Performed By: #### CBC #### [facility] [address] [place] [address] Dr. Gaurav Pineda %0.4 %Normal0.0-0.5The [facility] HospitalComment on above: Performed By: #### CBC #### [facility] [address] [address] [address] Gaurav Sneed #1.1 103/ulCritically low1.2-3.8The [facility] Comment on above:Performed By: #### CBC #### [facility] [address] [address] [address] Gaurav Busbymphocytes/100 WBC (Bld)10.2 %Critically low20.5-60.0The [facility] HospitalComment on above:Performed By: #### CBC #### [facility] [address] [address] [address] Gaurav Tolentino DIFF REQNONormalThe [facility] HospitalComment on above: Performed By: #### CBC #### [facility] [address] [place] [address] Dr. Gaurav Bowden (RBC) [Entitic mass]28.3 gySxhxti61.7-34.0The [facility] HospitalComment on above:Performed By: #### CBC #### [facility] [address] [place] [address] Dr. Gaurav Bowden (RBC) [Mass/Vol]32.4 g/rTYfcoep10.9-35.2The [facility] HospitalComment on above:Performed By: #### CBC #### [facility] [address] [place] [address] Dr. Gaurav Bowden (RBC) [Entitic vol]87.5 rNBdntzh29.0-99.0The [facility] HospitalComment on above:Performed By: #### CBC #### [facility] [address] [place] [address] Dr. Gaurav Jennings #0.8 103/ulNormal0.3-0.8The [facility] HospitalComment on above:Performed By: #### CBC #### [facility] [address] [place] [address] Dr. Gaurav Ashocytes/100 WBC (Bld)7.3 %Normal1.7-12.0[facility] Comment on above:Performed By: #### CBC #### [facility] [address] [address] [address] Gaurav Bucio #8.4 103/ulCritically high1.4-6.5The [facility] Comment on above:Performed By: #### CBC #### [facility] [address] [place] [address] Dr. Gaurav Yusufutrophils/100 WBC (Bld)80.9 %Critically high43.0-75.0The [facility] HospitalComment on above:Performed By: #### CBC #### [facility] [address] [place] [address] Dr. Gaurav LouisPlatelet mean volume (Bld) [Entitic vol]10.0 fLNormal9.5-13.5The [facility] HospitalComment on above:Performed By: #### CBC #### [facility] [address] [place] [address] Dr. Gaurav LouisPLT178 103/muAhogoq312-517Atp [facility] HospitalComment on above: Performed By: #### CBC #### [facility] [address] [place] [address] Dr. Gaurav LouisRBC4.73 106/ulNormal4.20-5.40The [facility] HospitalComment on above:Performed By: #### CBC #### [facility] [address] [place] [address] Dr. Gaurav LouisWBC10.3 103/ulNormal4.0-11.0The [facility] HospitalComment on above:Performed By: #### CBC #### [facility] [address] [place] [address] Dr. Gaurav LouisUS SINGLE QUAD LT LOWERon [id number] SINGLE QUAD LT LOWEREXAM: US SINGLE QUAD [...] Electronically authenticated by: NIDA ALVAREZ Date: 2022-04-30 18:10NormUC [facility] AUTO DIFFon [id number] #0.0 103/ulNormal0.0-0.1The [facility] HospitalComment on above:Performed By: #### CBC #### [facility] [address] [place] [address] Dr. Gaurav LouisBasophils/100 WBC (Bld)0.6 %Normal0.2-2.0The [facility] Comment on above:Performed By: #### CBC #### [facility] [address] [place] [address] Dr. Gaurav Pal #0.1 103/ulNormal0.0-0.7The [facility] HospitalComment on above: Performed By: #### CBC #### [facility] [address] [place] [address] Dr. Gaurav Ontiverososinophils/100 WBC (Bld)1.7 %Normal0.9-7.0The [facility] Comment on above:Performed By: #### CBC #### [facility] [address] [place] [address] Dr. Gaurav Ontiverosrythrocyte distribution width (RBC) [Ratio]21.1 %Critically high 11.0-15.0The [facility] HospitalComment on above:Performed By: #### CBC #### [facility] [address] [place] [address] Dr. Gaurav LouisHematocrit (Bld) [Volume fraction]33.6 %Critically low36.0-48.0 The [facility] HospitalComment on above:Performed By: #### CBC #### [facility] [address] [place] [address] Dr. Gaurav LouisHemoglobin (Bld) [Mass/Vol]10.0 g/dLCritically low12.0-16.0The [facility] HospitalComment on above:Performed By: #### CBC #### [facility] [address] [place] [address] Dr. Gaurav Pineda #0.02 10e3/ulNormal0.00-0.03The [facility] HospitalComment on above:Performed By: #### CBC #### [facility] [address] [place] [address] Dr. Gaurav Pineda %0.4 %Normal0.0-0.5The [facility] HospitalComment on above: Performed By: #### CBC #### [facility] [address] [place] [address] Dr. Gaurav Sneed #1.0 103/ulCritically low1.2-3.8The [facility] Comment on above:Performed By: #### CBC #### [facility] [address] [place] [address] Dr. Gaurav Goddardhocytes/100 WBC (Bld)18.3 %Critically low20.5-60.0The [facility] HospitalComment on above:Performed By: #### CBC #### [facility] [address] [place] [address] Dr. Gaurav Tolentino DIFF REQNONormalThe [facility] HospitalComment on above: Performed By: #### CBC #### [facility] [address] [place] [address] Dr. Gaurav Bruce (RBC) [Entitic mass]22.8 pgCritically low26.7-34.0The [facility] HospitalComment on above:Performed By: #### CBC #### [facility] [address] [place] [address] Dr. Gaurav Bowden (RBC) [Mass/Vol]29.8 g/dLCritically low29.9-35.2The [facility] HospitalComment on above:Performed By: #### CBC #### [facility] [address] [place] [address] Dr. Gaurav Bowden (RBC) [Entitic vol]76.7 fLCritically low81.0-99.0The [facility] HospitalComment on above:Performed By: #### CBC #### [facility] [address] [place] [address] Dr. Gaurav Jennings #0.5 103/ulNormal0.3-0.8The [facility] HospitalComment on above:Performed By: #### CBC #### [facility] [address] [place] [address] Dr. Gaurav Ashocytes/100 WBC (Bld)8.8 %Normal1.7-12.0The [facility] Comment on above:Performed By: #### CBC #### [facility] [address] [place] [address] Dr. Gaurav Bucio #3.8 103/ulNormal1.4-6.5The [facility] HospitalComment on above:Performed By: #### CBC #### [facility] [address] [place] [address] Dr. Gaurav Yusufutrophils/100 WBC (Bld)70.2 %Zdjwop76.0-75.0The [facility] HospitalComment on above:Performed By: #### CBC #### [facility] [address] [place] [address] Dr. Gaurav Goldberg mean volume (Bld) [Entitic vol]9.4 fLCritically low 9.5-13.5The [facility] HospitalComment on above:Performed By: #### CBC #### [facility] [address] [place] [address] Dr. Gaurav LouisPLT226 103/nvEfjnqj216-625Ogq [facility] HospitalComment on above: Performed By: #### CBC #### [facility] [address] [place] [address] Dr. Gaurav LouisRBC4.38 106/ulNormal4.20-5.40The [facility] HospitalComment on above:Performed By: #### CBC #### [facility] [address] [place] [address] Dr. Gaurav LouisWBC5.4 103/ulNormal4.0-11.0The [facility] HospitalComment on above: Performed By: #### CBC #### [facility] [address] [place] [address] Dr. Yilan ChangXR ankle LT min 3V*on [id number] ankle LT min 3V*[facility] Other XR ankle LT min 3V*[facility] Other XR ankle LT min 3V*[address] [facility] Other XR ankle LT min 3V*LASHONDA Beckett [address]Xzdfm [facility] Other XR ankle LT min 3V*[facility] Other XR ankle LT min 3V*[facility] Other XR ankle LT min 3V*Patient: Sandra Tavarez MR#: [id number] [facility] Other XR ankle LT min 3V*[facility] Other XR ankle LT min 3V*: 1940 Acct:[id number] [facility] Other XR ankle LT min 3V*Age/Sex: 80 / F ADM Date: 11/07/21 [employer] Other XR ankle LT min 3V*Loc: XDUCLY Room: Type: [facility] Other XR ankle LT min 3V*Attending Dr: Quita ZUNIGA [facility] Other XR ankle LT min 3V*Ordering Provider: [facility] Other XR ankle LT min 3V*Date of Service: 11/07/21[facility] Other XR ankle LT min 3V* XR/XR ankle LT min 3V*: Acute left ankle painDougherty [facility] Other XR ankle LT min 3V*Copies to: Quita Simmons, AIRLINE SECURITY REPRESENTATIVE-C [facility] Other XR ankle LT min 3V*XR ankle LT min 3V* 11/07/2021 12:15 [facility] Other XR ankle LT min 3V*SIGNS AND SYMPTOMS: Pain along the left Achilles and lateral aspect of the calcaneus, limited rangeDougherty [facility] Other XR ankle LT min 3V*of motionDougherty [facility] Other XR ankle LT min 3V*PROTOCOL: Frontal, lateral, and oblique radiographs of the left ankleDougherty [facility] Other XR ankle LT min 3V*COMPARISON: [facility] Other XR ankle LT min 3V*FINDINGS:[employer] Other XR ankle LT min 3V*The ankle mortise is preserved. There is cortical irregularity along the inferior margin of [facility] [place] Other XR ankle LT min 3V*lateral malleolus which may represent sequelae of a previous avulsive-type injury. There is softDougherty [facility] Other XR ankle LT min 3V*tissue swelling diffusely but greatest along the dorsal soft tissues. There is plantar surfaceDougherty [facility] Other XR ankle LT min 3V*calcaneal spurring. Vascular calcifications are present. Degenerative changes are noted in [facility] Other XR ankle LT min 3V*midfoot.[employer] Other XR ankle LT min 3V* XR/XR ankle LT min 3V*[employer] Other XR ankle LT min 3V*IMPRESSION:[employer] Other XR ankle LT min 3V*No acute displaced fracture.[employer] Other XR ankle LT min 3V*Diffuse soft tissue swelling greatest posteriorly.[employer] Other XR ankle LT min 3V*There is plantar surface calcaneal spurring.[employer] Other XR ankle LT min 3V*Impression dictated by: Tex Diaz M.D.11/07/2021 12:50 [facility] Other XR ankle LT min 3V*Dictation Location: [place] [address] [employer] Other XR ankle LT min 3V*Transcribed By: [facility] 11/07/21 [facility] Other XR ankle LT min 3V*Dictated By: Tex Diaz II, MD 11/07/21 1248[facility] Other XR ankle LT min 3V*Signed By:[employer] Other XR ankle LT min 3V*11/07/[address] [place], [place] [address] Other [facility] Preoperative Recordon [id number] Preoperative RecordMAGR Pre-Op Record Summary Primary Physician: FERNANDO SILVA Finalized Date/Time: 06/04/20 08:46:37 Pt. Name: SANDRA TAVAREZ/Sex: 1940 FEMALE Med Rec #: [id number] Physician: FERNANDO SILVA Financial #: [id number] Pt. Type: I Room/Bed: [facility] Admit/Disch: 05/23/20 09:44:18 - 05/27/20 15:15:00 [...] Signatures Signed By: Stacy Pena RN 06/04/20 08:46[facility] for RehabilitationConsent Formson 62-84-2091Iknakyr [id number]#1.00[facility] CenterOutside Recordson 06-71-0957Rngogcc Records [id number]#1.00[facility] Outside [id number]#1.00[facility] HospitalProvider Orderson 69-53-6349Ttqksiqr Orders [id number]#1.00[facility] Telemetry Stripson 05-96-8345Zlbxhcbkp Strips [id number]#1.00[facility].Auto Diff 1on 32-73-1360Jcit Tate %13 %High1-[address] [place], [place] [address]Comment on above: Performed By: #### [id number], [id number], 0363602 #### [facility] (DEFAULT) [address] [place] [address] 63650Iimo Abs#0.0 f74Imzmwj7.0-0.2MCincinnati VA Medical CenterComment on above:Performed By: #### [id number], [id number], 3553788 #### [facility] (DEFAULT) [address] [place] [address] 35892Czimifles/100 WBC (Bld)0.3 %Normal0.2-2.0[facility] Comment on above:Performed By: #### [id number], 95050151, 3091338 #### [facility] (DEFAULT) [address] [place] [address] 83150Vlf Abs#0.1 l64Vyuhuh1.0-0.4Magruder HospitalComment on above:Performed By: #### [id number], [id number], [id number] #### [facility] (DEFAULT) [address] [place] [address] 78297Dgjylxwkxma/100 WBC (Bld)1.4 %Normal0.9-4.0[facility]hio[facility] hospital HospitalComment on above:Performed By: #### [id number], [id number], 9598199 #### [facility] (DEFAULT) [address] [place] [address] 22652Kbgtxlgkdva (Bld) [#/Vol]1.4 t65Flpzob1.3-2.9Magruder HospitalComment on above:Performed By: #### [id number], [id number], 7170483 #### [facility] (DEFAULT) [address] [place] [address] 33104Ewlxvaqsedg/100 WBC (Bld)16 %Knjwlj36-65Ehjfvjhh Hospital Comment on above:Performed By: #### [id number], 03587375, 4091001 #### [facility] (DEFAULT) [address] [place] [address] 21278Azlt Abs#1.1 b45Sjry2.0-0.8Magruder HospitalComment on above:Performed By: #### [id number], [id number], [id number] #### [facility] (DEFAULT) [address] [place] [address] 48416Xume Abs#6.1 y55Kuzmqn4.5-9.2Mag[facility]uder HospitalComment on above:Performed By: #### [id number], 73697691, 9926278 #### [facility] (DEFAULT) [address] [place] [address] 77816Uqzkdyjcfuo/100 WBC (Bld)70 %Bwlzhr64-81Wukoxsfk Hospital Comment on above:Performed By: #### [id number], [id number], [id number] #### [facility] (DEFAULT) [address] [place] [address] 62865XGL Standardon 05-70-7132kCYL Non AA>60[facility] Comment on above:Performed By: #### [id number], [id number], [id number] #### [facility] (DEFAULT) [address] [place] [address] 55305tUXS AA>60[facility] HospitalComment on above:Result Comment: Chronic Kidney disease could be indicated at eGFRs of less than 60 ml/min/1.73m2. Kidney Failure is indicated at less than 15 ml/min/1.73m2 Performed By: #### [id number], [id number], 1530550 #### [facility] (DEFAULT) [address] [place] [address] 05222Erdpm gap [Moles/Vol]15.0 mmol/LNormal5.0-19.0[facility] HospitalComment on above:Performed By: #### [id number], [id number], 2052459 #### [facility] (DEFAULT) [address] [place] [address] 82212Vtgeoqy [Mass/Vol]9.2 mg/dLNormal8.9-10.3[facility] Comment on above:Performed By: #### [id number], [id number], 1559636 #### [facility] (DEFAULT) [address] [place] [address] 67424Vruwgykp [Moles/Vol]101 mmol/TRrvmzc852-078Pgkrpmqs HospitalComment on above:Performed By: #### [id number], [id number], 8296286 #### [facility] (DEFAULT) [address] [place] [address] 49848RM3 [Moles/Vol]26 mmol/INrudoh04-46Fqrnwtda Hospital Comment on above:Performed By: #### [id number], 36085867, 7643837 #### [facility] (DEFAULT) [address] [place] [address] 33025Lrpwdpfyat [Mass/Vol]0.58 mg/dLLow0.60-1.30[facility] HospitalComment on above:Performed By: #### [id number], [id number], 7476070 #### [facility] (DEFAULT) [address] [place] [address] 39001Fcpwjkd [Mass/Vol]120.0 mg/jUAdfx37.0-118.0[facility] HospitalComment on above:Performed By: #### [id number], [id number], 8977042 #### [facility] (DEFAULT) [address] [place] [address] 68129Bfppumpugx [Osmolality]279 mOsm/LMagrohiohealth mansfield hospital HospitalComment on above:Performed By: #### [id number], 53841407, 4030245 #### [facility] (DEFAULT) [address] [place] [address] 29255Qnjtphady [Moles/Vol]3.7 mmol/LNormal3.6-5.1[facility]hio[facility] hospital HospitalComment on above:Performed By: #### [id number], [id number], 8936011 #### [facility] (DEFAULT) [address] [place] [address] 07317Xsxjft [Moles/Vol]138.0 mmol/ARdtifa729.0-144.0[facility] HospitalComment on above:Performed By: #### [id number], [id number], 3324385 #### [facility] (DEFAULT) [address] [place] [address] 51417Rguy nitrogen [Mass/Vol]19 mg/dLNormal8-26[facility] HospitalComment on above:Performed By: #### [id number], 38658486, 9768659 #### [facility] (DEFAULT) [address] [place] [address] 89849Mtua nitrogen/Creatinine [Mass ratio]33.0 mg/mgHigh 4.6-16.2[facility] HospitalComment on above:Performed By: #### [id number], [id number], [id number] #### [facility] (DEFAULT) [address] [place] [address] 55529MIW w/ Auto Diffon 43-90-3883Cbcwdllvcpa distribution width (RBC) [Ratio]18.4 %High11.5-15.0[facility] HospitalComment on above: Performed By: #### [id number], [id number], 5119357 #### [facility] (DEFAULT) [address] [place] [address] 36032Evlvezxqaj (Bld) [Volume fraction]29.7 %Low33.7-40.4 [facility] HospitalComment on above:Performed By: #### [id number], 77813076, 6925941 #### [facility] (DEFAULT) [address] [place] [address] 92367Pidinpzxxf (Bld) [Mass/Vol]9.0 g/dLLow11.3-15.9[facility] HospitalComment on above:Performed By: #### [id number], 77828837, 6342407 #### [facility] (DEFAULT) [address] [place] [address] 82317Neq Diff?AutoNormalTrinity Health System West Campus HospitalComment on above: Performed By: #### [id number], 98952473, 0990600 #### [facility] (DEFAULT) [address] [place] [address] 95009NKS (RBC) [Entitic mass]25 zgYgoxfk32-80Ehawfzvr Hospital Comment on above:Performed By: #### [id number], 51869157, 2732138 #### [facility] (DEFAULT) [address] [place] [address] 82782UWHU (RBC) [Mass/Vol]30 g/pQRozezz42-69Gjmnraqz Hospital Comment on above:Performed By: #### [id number], 61109953, 2878146 #### [facility] (DEFAULT) [address] [place] [address] 51403RDU (RBC) [Entitic vol]82 eLQxbkce97-449Xkodvcar Hospital Comment on above:Performed By: #### [id number], [id number], 4982139 #### [facility] (DEFAULT) [address] [place] [address] 16404Jhearzbw mean volume (Bld) [Entitic vol]10.7 fLHigh 6.3-10.2Magrohiohealth [facility] hospital HospitalComment on above:Performed By: #### [id number], [id number], 4708611 #### [facility] (DEFAULT) [address] [place] [address] 32758Ybmckjckn (Bld) [#/Vol]230 q45Vhrbkp430-606Gdissxgn HospitalComment on above:Performed By: #### [id number], 40887536, 3026186 #### [facility] (DEFAULT) [address] [place] [address] 57659WNZ (Bld) [#/Vol]3.60 k38Cgj9.70-5.30[facility] Comment on above:Performed By: #### [id number], 08789193, 0133039 #### [facility] (DEFAULT) [address] [place] [address] 39348YMK (Bld) [#/Vol]8.8 l53Liuoocqz HospitalComment on above: Performed By: #### [id number], 78433250, 8438053 #### [facility] (DEFAULT) [address] [place] [address] 37675Xeniwh Summaryon 15-13-8447Ynrzju SummaryCODING DATE: 05/27/2020 [facility] STATUS: Transfer to Assisted PAYOR: Medicare Grouper: 470 MS-[employer]G MAJOR HIP AND KNEE JOINT REPLACEMENT OR REATTACHMENT OF LOWER EXTREMITY W/O GROUP HOME Low Trim 0 High Trim 999 ADMIT [...] other venous thrombosis and embolism 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 G47.33 Y Obstructive sleep apnea (adult) (pediatric) Z99.89 1 Dependence on other enabling machines and devices G40.909 Y Epilepsy, unspecified, not intractable, without status epilepticus Z79.899 1 Other ocean transportation intermediary (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 therapy E66.01 Y Morbid (severe) obesity due to excess calories PROCEDURES DOCTOR NAME DATE 4RCE853 Replacement of Left Knee Joint FERNANDO SILVA 05/23/2020 with Oxidized Zirconium on Polyethylene Synthetic Substitute, Cemented, Open Approach 83647D5 Transfusion of Nonautologous 05/25/2020 Red Blood Cells into Peripheral Vein, Percutaneous Approach NOTE: The code number assigned matches the documented diagnosis and / or procedure in the patient's chart. However, the narrative phrase printed from the coding software may appear abbreviated, or result in slightly different terminology. Revised Coded By: Jeane Mccormick Revised Date Saved: 05/27/2020 06:30 [facility] HospitalEducation Noteon 43-49-8406Pbkfkeacf NoteEducation Materials POST OPERATIVE TOTAL KNEE/HIP DISCHARGE [...] #8 follow up in office with physician doctor's assistant Octavio Centeno as scheduled #9 NOMS [...] proceed to the nearest hospital's emergency services department.[facility] RehabilitationInpatient Patient Summaryon 28-12-5743Cmhmvyib[place] [address] Patient Discharge Instructions Name: SANDRA TAVAREZ : 1940 Patient Address: [address] [place] [address] Primary Care Provider: Name: Robert Vail After you are discharged if you find you have any questions, please, call [phone] ext [phone] to speak to a nurse. Discharge Diagnosis: Acute pain of left knee Prescription Information: If you have been given a prescription for narcotics, seek immediate medical attention if you have any difficulty breathing or any sudden status changes such as confusion andsleepiness. If you or anyone you know is experiencing suicidal thoughts, mental health, alcohol and/or drug addiction problems; contact the [facility] 20/06 Crisis Hotline -Text 1ELNH is [phone]. If you received any narcotics, sedation, or [...] business decisions or sign any legal documents [facility] would like to thank you for allowing us to assist you with your healthcare needs.The following includes patient education materials and information regarding your injury/illness. SANDRA TAVAREZ has been given the following list of follow-up instructions, prescriptions, and patient education materials: Follow-up Instructions With: Address: When: Robert Vail [address] [place] [address] Business (1) With: Address: When: Tom Centeno [address] [place] [address], [facility] [address] [place], [place] [address] Business (1) 06/06/2020 1:00 PM Medications During [...] #8 follow up in office with physician doctor's assistant Octavio Centeno as scheduled #9 NOMS [...] Centers for Disease Control and Prevention July 2014[facility] POCT Glucose Levelon 24-32-4249Expwsow [Mass/Vol]125 mg/hOYdiy53-059Bixpfymo HospitalComment on above:Performed By: #### [id number] ####[facility] (DEFAULT)[address] [place] [address] 070[address]EMdw 98-39-5007PQT Coag (PPP) [Relative time]2.29 {INR}High0.91-1.11[facility] HospitalComment on above: Performed By: #### [id number], [id number], 4632297 #### [facility] (DEFAULT) [address] [place] [address] 62648MI Coag (PPP) [Time]22.2 second(s)High9.7-11.8[facility] HospitalComment on above:Performed By: #### [id number], [id number], 2666653 #### [facility] (DEFAULT) [address] [place] [address] 31317Ldtkwmjz Note - Nurseon 03-50-4359Weqktwgs Note - Nurse Dressing change per Dr Moon. RAFIQ hose applied to both lower legs. Daughter here for transfer to the [place] [facility]. Discharged to prison per private vehicle with daughter. PT and OT assisted patient into car. [Electronically Signed on: 05/27/2020 18:20 EDT] Mayra Tafoya RN [Verified on: 05/27/2020 18:20 EDT] Lencho Tafoya RNOhioHealth Riverside Methodist HospitalProgress Note-Physicianon 05-27-2020 Progress Note-PhysicianDATE OF ORTHOPEDIC PROGRESS [...] The patient will be going to [facility] today. CONDITION ON DISCHARGE: Stable. Tino Moon DO JOB #: [id number] bk [Electronically Signed on: 05/28/2020 10:10 EDT] TINO MOON DO [Verified on: 05/28/2020 10:10 EDT] MABLETINO Strauss [Transcribed on: 05/27/2020 14:44 EDT] [facility] HospitalProess Note-PhysicianDATE OF POSTOPERATIVE ORTHOPEDIC PROGRESS NOTE: 05/26/2020 [...] PROGNOSIS: Fair. Tino Moon DO JOB #: [id number] bk [Electronically Signed on: 05/27/2020 12:30 EDT] TINO MOON DO [Verified on: 05/27/2020 12:30 EDT] TINO MOON DO [Transcribed on: 05/27/2020 10:45 EDT] [facility].Auto Diff 1on 79-56-5874Hhsb Tate %16 %High1-12 [facility] HospitalComment on above:Performed By: #### [id number], [id number], 1514674 #### [facility] (DEFAULT) [address] [place] [address] 73950Ubdi Abs#0.0 d68Wtbshi3.0-0.2Mmain campus medical center HospitalComment on above:Performed By: #### [id number], [id number], 0971320 #### [facility] (DEFAULT) [address] [place] [address] 63797Twkgtjhmi/100 WBC (Bld)0.2 %Normal0.2-2.0[facility] Comment on above:Performed By: #### [id number], [id number], 0304598 #### [facility] (DEFAULT) [address] [place] [address] 89775Ysn Abs#0.0 u72Mciksr9.0-0.4[facility] HospitalComment on above:Performed By: #### [id number], 82484416, 0506405 #### [facility] (DEFAULT) [address] [place] [address] 78115Lhygomltloc/100 WBC (Bld)0.5 %Low0.9-4.0[facility] Comment on above:Performed By: #### [id number], 61466161, 1367531 #### [facility] (DEFAULT) [address] [place] [address] 42225Lpzppydenmh (Bld) [#/Vol]1.2 v89Gfh4.3-2.9[facility] HospitalComment on above:Performed By: #### [id number], 42707174, 7727384 #### [facility] (DEFAULT) [address] [place] [address] 16461Vcqewepddwg/100 WBC (Bld)15 %Ruocwg01-45Qswjdnbf Hospital Comment on above:Performed By: #### [id number], 91406038, 0225108 #### [facility] (DEFAULT) [address] [place] [address] 98454Yjvd Abs#1.3 d70Zjvg6.0-0.8[facility] HospitalComment on above:Performed By: #### [id number], 03353160, 8832328 #### [facility] (DEFAULT) [address] [place] [address] 76617Sket Abs#5.6 p03Ogjnyx3.5-9.2Mmain [facility] medical center HospitalComment on above:Performed By: #### [id number], 66039870, 9968192 #### [facility] (DEFAULT) [address] [place] [address] 84853Vdioghowdfo/100 WBC (Bld)68 %Eijhnx85-34Uewtecio Hospital Comment on above:Performed By: #### [id number], 45650356, 7543798 #### [facility] (DEFAULT) [address] [place] [address] 13990GKI w/ Auto Diffon 20-23-8210Wbulevldjxa distribution width (RBC) [Ratio]17.9 %High11.5-15.0[facility] HospitalComment on above: Performed By: #### [id number], [id number], 9632026 #### [facility] (DEFAULT) [address] [place] [address] 64967Lowmsqrmod (Bld) [Volume fraction]28.5 %Low33.7-40.4 [facility] HospitalComment on above:Performed By: #### [id number], 90707048, 0160612 #### [facility] (DEFAULT) [address] [place] [address] 30528Nzrhecylmw (Bld) [Mass/Vol]8.5 g/dLLow11.3-15.9[facility] HospitalComment on above:Performed By: #### [id number], 94929703, 0312723 #### [facility] (DEFAULT) [address] [place] [address] 23535Mzg Diff?AutoNormalTrinity Health System West Campus HospitalComment on above: Performed By: #### [id number], 53548666, 9849361 #### [facility] (DEFAULT) [address] [place] [address] 58396QHO (RBC) [Entitic mass]24 azJvvwvs63-54Rbggheek Hospital Comment on above:Performed By: #### [id number], 61752415, 5109724 #### [facility] (DEFAULT) [address] [place] [address] 63645VRII (RBC) [Mass/Vol]30 g/eXZcadoz74-31Wfdfvaui Hospital Comment on above:Performed By: #### [id number], 31539241, 7436263 #### [facility] (DEFAULT) [address] [place] [address] 45680RWK (RBC) [Entitic vol]81 pBDhgmjr69-250Fiadevpx Hospital Comment on above:Performed By: #### [id number], 76650406, 2344615 #### [facility] (DEFAULT) [address] [place] [address] 66347Zvhydwvg mean volume (Bld) [Entitic vol]10.5 fLHigh 6.3-10.2Mmain [facility] center HospitalComment on above:Performed By: #### [id number], 44585018, 1735339 #### [facility] (DEFAULT) [address] [place] [address] 00510Foppjeczg (Bld) [#/Vol]178 s31Ilmhsy473-291Jginiudb HospitalComment on above:Performed By: #### [id number], 98980287, 8648182 #### [facility] (DEFAULT) [address] [place] [address] 12240PWJ (Bld) [#/Vol]3.50 h24Jxi5.70-5.30[facility] Comment on above:Performed By: #### [id number], 81998332, 1264750 #### [facility] (DEFAULT) [address] [place] [address] 25963EYA (Bld) [#/Vol]8.2 l56Xspdhhjv HospitalComment on above: Performed By: #### [id number], 04613305, 0837100 #### [facility] (DEFAULT) [address] [place] [address] 44943Kglnq Greenon 56-05-4299Fpyb CollectedPremier Health [facility] Comment on above:Performed By: #### [id number], [id number], 8811778 #### [facility] (DEFAULT) [address] [place] [address] 41749Genojwn and Physicalon 39-72-2711Smmbree and Physical 137.252.90.179.187013394600538178534124538#1.00OTGTIFFChildren's Hospital for Rehabilitation Nutrition Noteon 35-45-4288Nexokjtbj NotePer intake records, Pt avg 50% of past 6 meals with inconsistent supplement intake avg 1X/d. Last BM on 05/23, will offer prunejuice. Post op anemia noted; per ortho 1unit PRBC given. CXR obtained for fever, dyspnea which was wnl. Possible discharge later today. Will continue to monitor.NormalMercy Health Urbana HospitalPTon 55-07-2172EME Coag (PPP) [Relative time]2.54 {INR}High0.91-1.11[facility] HospitalComment on above: Performed By: #### [id number], 73545772, 8364890 #### [facility] (DEFAULT) [address], [place] [address]AI Coag (PPP) [Time]24.4 second(s)High9.7-11.8[facility] HospitalComment on above:Performed By: #### [id number], [id number], 5093177 #### [facility] (DEFAULT) [address] [place] [address] 53456Opiudthm Note-Physicianon 61-64-2098Hcnqxtno Note-PhysicianDATE OF ORTHOPEDIC POSTOPERATIVE PROGRESS NOTE: 05/25/2020 [...] is good. Tino Moon DO JOB #: [id number] bk [Electronically Signed on: 05/26/2020 13:12 EDT] TINO MOON DO [Verified on: 05/26/2020 13:12 EDT] TINO MOON DO [Transcribed on: 05/26/2020 10:28 EDT] [facility] HospitalXR Chest 1 View Frontalon 27-57-1215TU Chest 1 View FrontalEXAM: XR Chest 1 [...] Jesus Green MD 05/26/20 3:37 pm Technologist: ,[facility].Auto Diff 1on 37-32-6551Zgbf Tate %17 %[address]Comment on above:Performed By: #### [id number], [id number], 8594577 #### [facility] (DEFAULT) [address] [place] [address] 21881Kudk Abs#0.0 v98Kdcons0.0-0.2Magruder HospitalComment on above:Performed By: #### [id number], 13693371, 9756870 #### [facility] (DEFAULT) [address] [place] [address] 67359Nhobfvhzv/100 WBC (Bld)0.3 %Normal0.2-2.0Magrohiohealth mansfield hospital Hospital Comment on above:Performed By: #### [id number], 97892467, 4317016 #### [facility] (DEFAULT) [address] [place] [address] 51376Jzl Abs#0.0 y70Wmdkhj1.0-0.4Magruder HospitalComment on above:Performed By: #### [id number], [id number], 0334230 #### [facility] (DEFAULT) [address] [place] [address] 35966Vxmoskzblmk/100 WBC (Bld)0.1 %Low0.9-4.0Magrohiohealth [facility]field hospital Hospital Comment on above:Performed By: #### [id number], [id number], 5063267 #### [facility] (DEFAULT) [address] [place] [address] 59390Zyxvaexuhld (Bld) [#/Vol]0.8 b64Woh5.3-2.9Magruder HospitalComment on above:Performed By: #### [id number], [id number], 1558624 #### [facility] (DEFAULT) [address] [place] [address] 19704Zdjulxfnxeg/100 WBC (Bld)11 %Tls77-48[facility] Comment on above:Performed By: #### [id number], [id number] #### [facility] (DEFAULT) [address] [place] [address] 48454Dfrg Abs#1.1 i49Kzog2.0-0.8[facility]uder HospitalComment on above:Performed By: #### [id number], [id number] #### [facility] (DEFAULT) [address] [place] [address] 65519Ynan Abs#4.8 b01Ewdiae5.5-9.2M[facility] HospitalComment on above:Performed By: #### [id number], [id number], [id number] #### [facility] (DEFAULT) [address] [place] [address] 44763Ztkjsyvdghk/100 WBC (Bld)72 %Xdfecf78-49[facility] Comment on above:Performed By: #### [id number], [id number] #### [facility] (DEFAULT) [address] [place] [address] [id number] w/ Auto Diffon 38-86-2703Bxwndkyoveg distribution width (RBC) [Ratio]17.6 %High11.5-15.0[facility] HospitalComment on above: Performed By: #### [id number], [id number], [id number] #### [facility] (DEFAULT) [address] [place] [address] 94622Fplgdwgeks (Bld) [Volume fraction]27.4 %Low33.7-40.4 [facility] HospitalComment on above:Performed By: #### [id number], [id number], [id number] #### [facility] (DEFAULT) [address] [place] [address] 47591Pwnbjjqvrp (Bld) [Mass/Vol]8.1 g/dLLow11.3-15.9[facility] HospitalComment on above:Performed By: #### [id number], [id number], [id number] #### [facility] (DEFAULT) [address] [place] [address] [id number] Diff?AutoNormalTrinity Health System West Campus HospitalComment on above: Performed By: #### [id number], [id number], [id number] #### [facility] (DEFAULT) [address] [place] [address] 00401IDI (RBC) [Entitic mass]24 prQzjwrd44-42Bmutsyle Hospital Comment on above:Performed By: #### [id number], [id number], [id number] #### [facility] (DEFAULT) [address] [place] [address] 18243UBJU (RBC) [Mass/Vol]30 g/eHAqmuvi16-70Grbdndgz Hospital Comment on above:Performed By: #### [id number], [id number], [id number] #### [facility] (DEFAULT) [address] [place] [address] 13230FQW (RBC) [Entitic vol]80 oSKwd91-048Irxnmeur Hospital Comment on above:Performed By: #### [id number], [id number], [id number] #### [facility] (DEFAULT) [address] [place] [address] 94090Oyknwwgx mean volume (Bld) [Entitic vol]10.8 fLHigh 6.3-10.2MCincinnati VA Medical CenterComment on above:Performed By: #### [id number], [id number], [id number] #### [facility] (DEFAULT) [address] [place] [address] 25496Lkmzpffpj (Bld) [#/Vol]186 d55Sxltpo811-633Zftvtwwp HospitalComment on above:Performed By: #### [id number], [id number], [id number] #### [facility] (DEFAULT) [address] [place] [address] 13995IQI (Bld) [#/Vol]3.42 m45Xpd5.70-5.30[facility] Comment on above:Performed By: #### [id number], [id number], [id number] #### [facility] (DEFAULT) [address] [place] [address] 15950KFZ (Bld) [#/Vol]6.8 w41Themxm5.5-10.5[facility] Comment on above:Performed By: #### [id number], [id number], [id number] #### [facility] (DEFAULT) [address] [place] [address] 68079Bdwgvovbemf Panel Standardon 87-51-5930Dyxwp gap [Moles/Vol]12.0 mmol/LNormal5.0-19.0[facility] HospitalComment on above:Performed By: #### [id number], [id number], [id number] #### [facility] (DEFAULT) [address] [place] [address] 23570Gssxfknz [Moles/Vol]102 mmol/PLcclfl113-385Ekzwjcit HospitalComment on above:Performed By: #### [id number], [id number], [id number] #### [facility] (DEFAULT) [address] [place] [address] 32762WY4 [Moles/Vol]28 mmol/HFiemuk55-85Iagossmi Hospital Comment on above:Performed By: #### [id number], [id number], [id number] #### [facility] (DEFAULT) [address] [place] [address] 32689Jhimqfwiw [Moles/Vol]4.0 mmol/LNormal3.6-5.1Mmain [facility] center HospitalComment on above:Performed By: #### [id number], [id number], [id number] #### [facility] (DEFAULT) [address] [place] [address] 25343Hfrphi [Moles/Vol]138.0 mmol/QInzfvw631.0-144.0[facility] HospitalComment on above:Performed By: #### [id number], [id number], [id number] #### [facility] (DEFAULT) [address] [place] [address] 98807VLsp 45-05-3654UVL Coag (PPP) [Relative time]1.89 {INR} High0.91-1.11[facility] HospitalComment on above:Performed By: #### [id number], [id number], [id number] #### [facility] (DEFAULT) [address] [place] [address] 01991AM Coag (PPP) [Time]18.6 second(s)High9.7-11.8[facility] HospitalComment on above:Performed By: #### [id number], [id number], [id number] #### [facility] (DEFAULT) [address], [place] [address]Fqzgqmzk Note - Nurseon 59-92-8135Ywppnxzp Note - Nursept requiring three assist to [...] [Verified on: 05/25/2020 18:51 EDT] Jessica Abernathy RNUK Healthcareess Note - NurseUnable to get mask to fit correctly so placed on 2 L overnight. [Electronically Signed on: 05/25/2020 01:45 EDT] Lyndsay Lou RN [Verified on: 05/25/2020 01:45 EDT] [facility]ay [facility] Note - NursePt asleep with cpap mask off, woke her to put it back on. [Electronically Signed on: 05/25/2020 01:33 EDT] Lyndsay Lou RN [Verified on: 05/25/2020 01:33 EDT] Lyndsay Lou [facility] HospitalProgress Note - NursePt up to bedside commode with 2 assist and walker, transfers very poorly and reports alot of knee pain. [Electronically Signed on: 05/25/2020 00:22 EDT] Lyndsay Lou RN [Verified on: 05/25/2020 00:22 EDT] Lyndsay Lou [facility] HospitalRBC.on 75-48-8354HWS (Bld) [#/Vol]# of Units: 1 RBC Indication: Post-Op Bleed Additional Units?: No Date Needed: 05/25/2002 Red Cell Status: RBC [facility] HospitalComment on above:Performed By: #### [id number], [id number], [id number] #### [facility] (DEFAULT) [address] [place] [address].Auto Diff 1on 09-76-5056Mqxl Tate %9 %Normal1-12[facility] HospitalComment on above:Performed By: #### [id number], [id number], [id number] #### [facility] [address] [place] [address] 80995Epae Abs#0.0 p91Rqfhrq1.0-0.2[facility] HospitalComment on above:Performed By: #### [id number], [id number], 9334639 #### [facility] (DEFAULT) [address] [place], [place] [address]Basophils/100 WBC (Bld)0.2 %Normal0.2-2.0[facility] Comment on above:Performed By: #### [id number], [id number], [id number] #### [facility] (DEFAULT) [address] [place] [address] 05705Byw Abs#0.0 t67Osrsmj8.0-0.4[facility] HospitalComment on above:Performed By: #### [id number], [id number], [id number] #### [facility] (DEFAULT) [address] [place] [address] 35610Sqxshlwbluf/100 WBC (Bld)0.0 %Low0.9-4.0[facility] Hospital Comment on above:Performed By: #### [id number], [id number], [id number] #### [facility] (DEFAULT) [address] [place] [address] 59542Qwhqxlnxipq (Bld) [#/Vol]0.7 q91Xuz5.3-2.9Magruder HospitalComment on above:Performed By: #### [id number], [id number], [id number] #### [facility] (DEFAULT) [address] [place] [address] 33095Sqywdtwkkap/100 WBC (Bld)6 %Alh83-56Vsptdbjg Hospital Comment on above:Performed By: #### [id number], [id number], [id number] #### [facility] (DEFAULT) [address] [place] [address] 66812Ntgo Abs#0.9 y93Vsin6.0-0.8[facility] HospitalComment on above:Performed By: #### [id number], [id number], [id number] #### [facility] (DEFAULT) [address] [place] [address] 35137Xfva Abs#8.7 g87Cvzbah3.5-9.2[facility] HospitalComment on above:Performed By: #### [id number], [id number], [id number] #### [facility] (DEFAULT) [address] [place] [address] 34306Mmfzfgjpvll/100 WBC (Bld)84 %Qarnyy72-84Vpkasimo Hospital Comment on above:Performed By: #### [id number], [id number], [id number] #### [facility] (DEFAULT) [address] [place] [address] 25661DNE Standardon 48-94-2740wFPL Non AA>60[facility] Comment on above:Performed By: #### [id number], [id number], [id number] #### [facility] (DEFAULT) [address] [place] [address] 53509tVSS AA>60[facility] HospitalComment on above:Result Comment: Chronic Kidney disease could be indicated at eGFRs of less than 60 ml/min/1.73m2. Kidney Failure is indicated at less than 15 ml/min/1.73m2 Performed By: #### [id number], [id number], [id number] #### [facility] (DEFAULT) [address] [place] [address] 94265Opwwp gap [Moles/Vol]13.0 mmol/LNormal5.0-19.0[facility] HospitalComment on above:Performed By: #### [id number], [id number], [id number] #### [facility] (DEFAULT) [address] [place] [address] 09762Iasyuzg [Mass/Vol]8.5 mg/dLLow8.9-10.3[facility] Comment on above:Performed By: #### [id number], [id number], [id number] #### [facility] (DEFAULT) [address] [place] [address] 73887Gxkqzzpd [Moles/Vol]102 mmol/IGqkamk276-857Ijxjirfa HospitalComment on above:Performed By: #### [id number], [id number], 0734871 #### [facility] (DEFAULT) [address] [place] [address] 37817TF9 [Moles/Vol]27 mmol/NGlocgz70-20Srxmxbxu Hospital Comment on above:Performed By: #### [id number], 43835335, [id number] #### [facility] (DEFAULT) [address] [place] [address] 89234Mwqbyuduor [Mass/Vol]0.57 mg/dLLow0.60-1.30[facility] HospitalComment on above:Performed By: #### [id number], [id number], 8138151 #### [facility] (DEFAULT) [address] [place] [address] 83380Bfvschk [Mass/Vol]134.0 mg/kMVwsr56.0-118.0[facility] HospitalComment on above:Performed By: #### [id number], [id number], 2156752 #### [facility] (DEFAULT) [address] [place] [address] 90337Pbdhyvponc [Osmolality]280 mOsm/LMmain campus medical center HospitalComment on above:Performed By: #### [id number], [id number], 7811941 #### [facility] (DEFAULT) [address] [place] [address] 73320Rqhmhigke [Moles/Vol]4.4 mmol/LNormal3.6-5.1Mmain [facility] center HospitalComment on above:Performed By: #### [id number], [id number], 9078808 #### [facility] (DEFAULT) [address] [place] [address] 85473Mmplcl [Moles/Vol]138.0 mmol/BAvqtfl401.0-144.0[facility] HospitalComment on above:Performed By: #### [id number], [id number], 7647197 #### [facility] (DEFAULT) [address] [place] [address] 85662Vzts nitrogen [Mass/Vol]19 mg/dLNormal8-26[facility] HospitalComment on above:Performed By: #### [id number], [id number], [id number] #### [facility] (DEFAULT) [address] [place] [address] 11965Rlmq nitrogen/Creatinine [Mass ratio]33.0 mg/mgHigh 4.6-16.2Mmain [facility] center HospitalComment on above:Performed By: #### [id number], [id number], [id number] #### [facility] (DEFAULT) [address] [place] [address] 44847VEF w/ Auto Diffon 90-06-8118Wftqrgygaqz distribution width (RBC) [Ratio]17.4 %High11.5-15.0[facility] HospitalComment on above: Performed By: #### [id number], [id number], [id number] #### [facility] (DEFAULT) [address] [place] [address] 85990Jpebftnxdt (Bld) [Volume fraction]29.3 %Low33.7-40.4 [facility] HospitalComment on above:Performed By: #### [id number], [id number], [id number] #### [facility] (DEFAULT) [address] [place] [address] 18256Tlzewwrrls (Bld) [Mass/Vol]8.7 g/dLLow11.3-15.9[facility] HospitalComment on above:Performed By: #### [id number], [id number], [id number] #### [facility] (DEFAULT) [address] [place] [address] 55840Uim Diff?AutoNormalTrinity Health System West Campus HospitalComment on above: Performed By: #### [id number], [id number], [id number] #### [facility] (DEFAULT) [address] [place] [address] 94613DKR (RBC) [Entitic mass]24 cuAcnito22-25Emgqvjvt Hospital Comment on above:Performed By: #### [id number], [id number], [id number] #### [facility] (DEFAULT) [address] [place] [address] 84950MVZG (RBC) [Mass/Vol]30 g/oVIsoagc12-44Bjtfwqvs Hospital Comment on above:Performed By: #### [id number], [id number], [id number] #### [facility] (DEFAULT) [address] [place] [address] 64250HLK (RBC) [Entitic vol]81 tDEjwgyb50-064Mughdjqj Hospital Comment on above:Performed By: #### [id number], [id number], [id number] #### [facility] (DEFAULT) [address] [place] [address] 71751Ldzbnziy mean volume (Bld) [Entitic vol]10.6 fLHigh 6.3-10.2M[facility] HospitalComment on above:Performed By: #### [id number], [id number], [id number] #### [facility] (DEFAULT) [address] [place] [address] 96029Jcvdbetmq (Bld) [#/Vol]211 y21Hyopbq071-257Xcsxwwua HospitalComment on above:Performed By: #### [id number], [id number], [id number] #### [facility] [address] [place] [address] 40084IKH (Bld) [#/Vol]3.63 s48Bgo2.70-5.30[facility] Comment on above:Performed By: #### [id number], 50775571, [id number] #### [facility] (DEFAULT) [address] [place] [address] 93898PTL (Bld) [#/Vol]10.4 p90Jtvsvn6.5-10.5[facility] Comment on above:Performed By: #### [id number], [id number], [id number] #### [facility] (DEFAULT) [address] [place] [address] 31995Znmlgzsga Noteon 97-82-1401Snfjcownu NoteDiet ordered as 3000kcal, DM w/ Boost Glucose Control BID. Diet adjusted to 2gr Na to reflect Pts home diet and supplement changed to Ensure Compact BID which is available in house. Pt does not have DM. Will continue to monitor.NormalMercy Health Urbana HospitalPT on 15-64-8409KEF Coag (PPP) [Relative time]1.21 {INR}High0.91-1.11[facility] HospitalComment on above:Performed By: #### [id number], [id number], [id number] #### [facility] (DEFAULT) [address] [place] [address] 41025FA Coag (PPP) [Time]12.3 second(s)High9.7-11.8[facility] HospitalComment on above:Performed By: #### [id number], [id number], [id number] #### [facility] ([facility]) [address] [place] [address] 22895Qknsiiih Noteon 41-64-4556Xjqtccgb NoteI have personally reviewed the patient's current [...] Molina [Verified on: 05/24/2020 16:28 EDT] Kellee MolinaFulton [facility] Note - Nurseon 05-24-2020 Progress Note - Nursepts pain becming worse. giving 10mg oxy po every four hours, polar care in place and dr epperson notified of pain not controlled. will administer po gabepentin per order. will continue to monitor [Electronically Signed on: 05/24/2020 17:20 EDT] Jessica Abernathy RN [Verified on: 05/24/2020 17:20 EDT] Jessica Abernathy RNUK Healthcareess Note - Nursept requires assistance getting in and out of bed. still a little stiff from surgery but does ok once up w the walker. pain so far has been controlled w 10 mg po oxy. [Electronically Signed on: 05/24/2020 10:54 EDT] Jessica Abernathy RN [Verified on: 05/24/2020 10:54 EDT] Jessica Abernathy RNNormLicking Memorial HospitalABORhon 32-69-4388DMF and group Nom (d)Hx Check: Not Found Anti-A: 4+ Anti-B: 0 Anti-D: 4+ DCon: NT A1: mf+ B: 4+ ABORh Interp: A POSMagrohiohealth mansfield hospital HospitalComment on above:Performed By: #### [id number], [id number], [id number] #### [facility] (DEFAULT) [address] [place] [address] 13812BCWDl Retypeon 63-24-5589WIN and group Nom (Bld)Ordered by Discern. Anti-A: 4+ Anti-B: 0 Anti-D: 4+ DCon: NT A1: mf+ B: 4+ ABORh Retype: A POSTrinity Health System West Campus HospitalComment on above:Performed By: #### [id number], [id number], [id number] #### [facility] (DEFAULT) [address] [place] [address] 25607MAPZ Gelon 57-89-8155WMLL GelNegativeFostoria City Hospital HospitalComment on above:Performed By: #### [id number], [id number], [id number] #### [facility] (DEFAULT) [address] [place] [address] 14100Xpuinduevc Noteon 95-42-1401Rocjczxery NotePatient: SANDRA TAVAREZ Age: 79 years Sex: [...] history): All Problems Anemia / SNOMED CT 915258262 / Confirmed At risk of pressure sore / SNOMED CT 856786062 / Confirmed Cardiomyopathy / SNOMED CT 477395853 / Confirmed DVT (deep venous thrombosis) / SNOMED CT 227109217 / Confirmed GERD (gastroesophageal reflux disease) / SNOMED CT 689874726 / Confirmed Hyperlipidemia / SNOMED CT 41443327 / Confirmed Hypertension / SNOMED CT 4215091996 / Confirmed Lumbar spondylosis / SNOMED CT 150633167 / Confirmed Mass / SNOMED CT 352535616 / Confirmed KERMIT (obstructive sleep apnea) / SNOMED CT 037546639 / Confirmed Pulmonary hypertension / SNOMED CT 612919027 / Confirmed Seizure / SNOMED CT 655773735 / Confirmed Venous insufficiency / SNOMED CT 811429520 / Confirmed Resolved: Adrenal adenoma / SNOMED CT 181964806 Resolved: Pulmonary emboli / SNOMED CT 93830841 Histories Family History: Diabetes mellitus Sister Heart attack Father Leukemia Father Stroke.... Mother Procedure history: Cholecystectomy (01723884). Colectomy (21788365). Colonoscopy (073382040). [place] filter (534819965). Femur fracture, right (26794360). Shoulder (08532121). Comments: 02/08/2020 9:57 Stacy Reynolds RN torn rotator cuff 02/08/2020 7:28 FRANSISCOT Stacy Booker RN arthroplasty Knee arthroplasty (923369515). Craniotomy (96884753). Laminectomy (4960527217). Comments: 02/08/2020 7:30 Stacy Reynolds RN foraminotomy, facetectomy with decompression and fusion Cataract (454406297). Social History Electronic Cigarette/Vaping Assessment Electronic Cigarette [...] Oriented. Review / Management Laboratory Results Plan [place] [employer]esthesi[employer]#(ASA) physical status classification: Class III. Anesthetic Preoperative Plan Anesthesia: General. , Regional Left Adductor Canal Block. Anesthetic plan, risks, benefits, and alternatives discussed with the patient and/or family. Risks discussed: nausea, vomiting, sore throat, serious complications. Patient verbalized understanding. Informed consent was given. Consent was signed by the patient. [Electronically Signed on: 05/23/2020 13:34 EDT] Maico Sadnhu DO [Verified on: 05/23/2020 13:34 EDT] Maico Sandhu [facility] HospitalBlood Bank IDon [id number] Bank ID BBID: [id number] Health Urbana HospitalComment on above:Performed By: #### [id number], [id number], [id number] #### [facility] (DEFAULT) [address] [place] [address] 66949Ylhvh Willet 67-83-4297Jgrm [facility] Comment on above:Performed By: #### [id number], [id number], [id number] #### [facility] (DEFAULT) [address] [place] [address] 75606Tlco CollectedPremier Health Miami Valley Hospital SouthComment on above: Performed By: #### [id number], [id number], [id number] #### [facility] (DEFAULT) [address] [place] [address] 18563Onfar 36-52-0376Akgrtkzocn (Bld) [Mass/Vol]10.1 g/dLLow 11.3-15.9[facility] HospitalComment on above:Performed By: #### [id number], [id number], [id number] #### [facility] (DEFAULT) [address] [place] [address] 58821VBUR Intraoperative Recordon 26-84-0015WKTR Intraoperative RecordMAGR Intra-Op Record Summary Primary Physician: FERNANDO SILVA Finalized Date/Time: 05/23/20 16:19:21 Pt. Name: SANDRA TAVAREZ Lyndsay ValdezB./Sex: 1940 FEMALE Med Rec #: [id number] Physician: FERNANDO SILVA Financial #: [id number] Pt. Type: I Room/Bed: [facility] Admit/Disch: 05/23/20 09:44:18 - Institution: Case [...] Role Performed Surgeon - Primary Anesthesiologist of Casing Splitter Record Time In 05/23/20 13:19:00 05/23/20 13:19:00 05/23/20 13:19:00 Time Out 05/23/20 16:17:00 05/23/20 16:17:00 05/23/20 15:52:00 Procedure Arthroplasty Knee Arthroplasty Knee Arthroplasty Knee Total(Left) Total(Left) Total(Left) Last Modified By: Shanique Brown RN, Barbara RN Long, Barbara RN 05/23/20 16:19:02 05/23/20 16:19:02 05/23/20 16:19:02 Entry 4 Entry 5 Entry 6 Case Attendee Thomas ASSEMBLY MEMBER, Sridhar Vallejo Jennifer RN Regina CST Role Performed Scrub Personnel Real Estate Specialist Real Estate Specialist Time In 05/23/20 13:19:00 05/23/20 13:19:00 05/23/20 13:19:00 Time Out 05/23/20 16:17:00 05/23/20 16:17:00 05/23/20 16:17:00 Procedure Arthroplasty Knee Arthroplasty Knee Arthroplasty Knee Total(Left) Total(Left) Total(Left) Last Modified By: Shanique Brown RN, Barbara RN Long, Barbara RN 05/23/20 16:19:02 05/23/20 16:19:02 05/23/20 16:19:02 General Comments: Jae Baezar waleska rep Surgical Procedures MAGR Pre-Care Text: A.20 Verifies operative procedure, surgical site, and laterality Im.150 Develops individualized plan of care Entry 1 Procedure Arthroplasty Knee Total Primary Procedure Yes Primary Surgeon FERNANDO SILVA Surgeon Comment LEFT TOTAL KNEE Start 05/23/20 [...] Final Counts Shanique Brown RN, Performed By aPm Guzman CST Final Count Time 05/23/20 15:32:00 [...] Implanted/Explanted By: Size 6.5mm 48mm 29MM ISADORA Pick Up waleska WALESKA WALESKA Catalog # Lot Number [id number] Expiration Date 10/27/29 11/27/29 10/27/29 Serial Number REF 6250 65 35 REF 5983 40 48 REF 5979 95 29 Device Identifier Human Readable CHASE Machine Readable CHASE MR Class Implant Usage Data Site Knee L Knee L Knee L Quantity 1 1 1 Reason for Explant Reason Not Retained Explant Disposition Training Administrator Sterility External Indicator Result Internal Indicator Results [...] C D 15MM ISADORA X 30MM L Pick Up W[employer]ESKA WALESKA WALESKA Catalog # Lot Number [id number] Expiration Date 02/25/30 01/25/25 08/27/29 Serial Number REF [id number] RE 59 62 30 10 REF 5099 12 15 Device Identifier Human Readable CHASE Machine Readable CHASE MR Class Implant Usage Data Site Knee L Knee L Knee L Quantity 1 1 1 Reason for Explant Reason Not Retained Explant Disposition Training Administrator Sterility External Indicator Result Internal Indicator Results [...] 05/23/20 15:16:00 05/23/20 15:16:00 Date/Time Implanted/Explanted FERNANDO SILVA, FERNANDO EDUARDO By: Size 29 MM ISADORA 4 D Pick Up WALESKA WALESKA WALESKA Catalog # Lot Number [id number] Expiration Date 09/27/27 09/25/29 07/28/26 Serial Number REF 42 [id number] 000 29 REF 5980 37 02 REF 00 [id number] Device Identifier Human Readable CHASE Machine Readable CHASE MR Class Implant Usage Data Site Knee L Knee L Knee L Quantity 1 1 1 Reason for Explant Reason Not Retained Explant Disposition Training Administrator Sterility External Indicator Result Internal Indicator Results Outcome Met (O.30) Yes Yes Yes Last Modified By: Shanique Brown RN, Barbara RN Long, Barbara RN 05/23/20 15:29:09 05/23/20 15:29:09 05/23/20 15:29:09 Entry 10 Entry 11 Procedure Arthroplasty Knee Arthroplasty Knee Total(Left) Total(Left) Implant Action Implant Implant Description WALESKA BIOMET BONE WALESKA/BIOMET BONE CEMENT CEMENT Implant Information Implant/Explant 05/23/20 15:29:00 05/23/20 15:30:00 Date/Time Implanted/Explanted STEPANIC, FERNANDO STEPANIC, FERNANDO By: Size Pick Up WALESKA/BIOMET WALESKA/BIOMET Catalog # Lot Number [id number] Expiration Date 05/27/24 05/27/24 Serial Number REF [id number] [id number] Device Identifier Human Readable CHASE Machine Readable CHASE MR Class Implant Usage Data Site Knee L Knee L Quantity 1 1 Reason for Explant Reason Not Retained Explant Disposition Training Administrator Sterility External Indicator Result Internal Indicator Results [...] Signatures Signed By: Shanique Brown RN 05/23/20 16:19[facility] Intraoperative Record MAGR Intra-Op Record Summary Primary Physician: Finalized Date/Time: 05/23/20 13:14:24 Pt. Name: SANDRA TAVAREZ/Sex: 1940 FEMALE Med Rec #: [id number] Physician: FERNANDO SILVA Financial #: [id number] Pt. Type: I Room/Bed: [facility] Admit/Disch: 05/23/20 09:44:18 - Institution: Case [...] Warga, Laura RN Role Performed Anesthesiologist of Casing Splitter Casing Splitter Record Time In 05/23/20 12:58:00 05/23/20 12:58:00 [...] Signatures Signed By: Stacy Pena RN 05/23/20 13:14[facility] PACU Recordon [id number] PACU RecordMA PACU Record Summary Primary Physician: FERNANDO SILVA Finalized Date/Time: 05/23/20 16:49:56 Pt. Name: SANDRA TAVAREZ/Sex: 1940 FEMALE Med Rec #: [id number] Physician: FERNANDO SILVA Financial #: [id number] Pt. Type: I Room/Bed: [facility] Admit/Disch: 05/23/20 09:44:18 - Institution: PACU Case Times MAGR Entry 1 In PACU I 05/23/20 16:18:00 Discharge from PACU 05/23/20 16:51:00 I Last Modified By: Shanique Brown RN 05/23/20 16:49:54 Finalized By: Shanique Brown RN Document Signatures Signed By: Shanique Brown RN 05/23/20 16:49[facility] for RehabilitationNutrition Noteon 01-77-0635Bmcmbwybw NotePt admitted for scheduled Lt total knee [...] risk r/t age greater than 65y and surgery.[facility] 10-59-8999CHQ Coag (PPP) [Relative time]1.22 {INR}High0.91-1.11 [facility] HospitalComment on above:Performed By: #### [id number], [id number], [id number] #### [facility] (DEFAULT) [address] [place] [address] 02867SQ Coag (PPP) [Time]12.4 second(s)High9.7-11.8[facility] HospitalComment on above:Result Comment: Called Shira in Pre - Surg at 1059 Performed By: #### [id number], [id number], [id number] #### [facility] (DEFAULT) [address] [place] [address] 29194XXIE-OnE-4 (COVID-19) PCRon 77-28-6466KMCQX-19 PCRNot DetectedNormalNot DetectedMercy Health Urbana HospitalComment on above:Result Comment: performed in house Results Called To Stacy in pre-surg By ARIADNA And Read Back For Confirmation On 05/23/2020 10:55:59 EDTPerformed By: #### [id number], [id number], [id number] #### [facility] (DEFAULT) [address] [place] [address] 44641VI Knee One or Two Views Lefton 41-63-1176LO Knee One or Two Views LeftEXAM: XR [...] Jae Cardona 05/23/20 4:50 pm Technologist: Tabitha BLANTONMercy Health Urbana HospitalProgress Note - Nurseon 05-07-2020 Progress Note - NurseChart reviewed by Dr. Maria and no new orders received. May proceed to surgery. [Electronically Signed on: 05/07/2020 15:56 EDT] Chrissie Contreras RN [Verified on: 05/07/2020 15:56 EDT] Chrissie Contreras RN [facility] HospitalCoding Summaryon 88-56-6331Iiyfio SummaryCODING DATE: 02/27/2020 [facility] STATUS: Home PAYOR: Medicare APC DESCRIPTION [...] Morena Fang Revised Date Saved: 02/27/2020 01:41 [facility] - Nurseon 88-19-7616Nvglnamy Note - NurseChart reviewed by Dr. Garcia and no new orders received. [Electronically Signed on: 02/12/2020 15:52 EDT] Chrissie Contreras RN [Verified on: 02/12/2020 15:52 EDT] Chrissie [facility]reras RN [facility] Hospital[facility] Orderson 02-11-2020 Provider [id number]#1.00OTGTIFFNoLancaster Municipal Hospital Urineon 02-10-2020C UrineUrine Culture ordered as a result of parameters set on specific urine dip and urine microsopic results. Mixed skin, or urogenital paddy. Clinically insignificantChildren's Hospital for Rehabilitation Comment on above:Performed By: #### [id number], [id number], [id number] #### [facility] (DEFAULT) [address] [place] [address] 94090.Auto Diff 1on 64-54-1894Qddn Tate %12 %Normal1-12[facility] HospitalComment on above:Performed By: #### [id number], [id number], [id number] #### [facility] (DEFAULT) [address] [place] [address] 26244Enki Abs#0.0 w58Fgpfkz0.0-0.2Mmain campus medical center HospitalComment on above:Performed By: #### [id number], [id number], [id number] #### [facility] (DEFAULT) [address] [place] [address] 54228Xeqrbxbxc/100 WBC (Bld)0.4 %Normal0.2-2.0[facility] Comment on above:Performed By: #### [id number], [id number], [id number] #### [facility] (DEFAULT) [address] [place] [address] 44064Tdj Abs#0.1 c08Qwgsjg3.0-0.4[facility] HospitalComment on above:Performed By: #### [id number], [id number], [id number] #### [facility] (DEFAULT) [address] [place] [address] 38677Vfhdheymawc/100 WBC (Bld)1.9 %Normal0.9-4.0[facility] HospitalComment on above:Performed By: #### [id number], [id number], [id number] #### [facility] (DEFAULT) [address] [place] [address] 09158Zvpwaozzdri (Bld) [#/Vol]1.0 h69Yas3.3-2.9[facility] HospitalComment on above:Performed By: #### [id number], [id number], [id number] #### [facility] (DEFAULT) [address] [place] [address] 74655Pzibishdfuc/100 WBC (Bld)22 %Qiruhk87-89Zositvga Hospital Comment on above:Performed By: #### [id number], [id number], [id number] #### [facility] (DEFAULT) [address] [place] [address] 67076Bscd Abs#0.6 s00Brrqaf5.0-0.8[facility] HospitalComment on above:Performed By: #### [id number], [id number], [id number] #### [facility] (DEFAULT) [address] [place] [address] 36666Fque Abs#3.0 h13Gfsygc1.5-9.2[facility] HospitalComment on above:Performed By: #### [id number], [id number], [id number] #### [facility] (DEFAULT) [address] [place] [address] 01326Nzukxxwtpti/100 WBC (Bld)64 %Hqozcp72-67Rtifzjhs Hospital Comment on above:Performed By: #### [id number], [id number], [id number] #### [facility] (DEFAULT) [address] [place] [address] 78388MMO Standardon 04-94-4576qRMC Non AA>60M[facility] Hospital Comment on above:Performed By: #### [id number], [id number], [id number] #### [facility] (DEFAULT) [address] [place] [address] 89919iOAI AA>60[facility] HospitalComment on above:Result Comment: Chronic Kidney disease could be indicated at eGFRs of less than 60 ml/min/1.73m2. Kidney Failure is indicated at less than 15 ml/min/1.73m2 Performed By: #### [id number], [id number], [id number] #### [facility] (DEFAULT) [address] [place] [address] 60998Tulhd gap [Moles/Vol]15.0 mmol/LNormal5.0-19.0[facility] HospitalComment on above:Performed By: #### [id number], [id number], [id number] #### [facility] (DEFAULT) [address] [place] [address] 66087Bxjygdy [Mass/Vol]9.4 mg/dLNormal8.9-10.3M[facility] Hospital Comment on above:Performed By: #### [id number], [id number], [id number] #### [facility] (DEFAULT) [address] [place] [address] 08123Odibcmwk [Moles/Vol]102 mmol/PLwbhzs967-118Shendugq HospitalComment on above:Performed By: #### [id number], [id number], [id number] #### [facility] (DEFAULT) [address] [place] [address] 10856HT6 [Moles/Vol]26 mmol/EDlsarr03-36Rsmtubqe Hospital Comment on above:Performed By: #### [id number], [id number], [id number] #### [facility] (DEFAULT) [address] [place] [address] 01386Ujlcmhnjsp [Mass/Vol]0.64 mg/dLNormal0.60-1.30[facility] HospitalComment on above:Performed By: #### [id number], [id number], [id number] #### [facility] (DEFAULT) [address] [place] [address] 03646Csllzgt [Mass/Vol]112.0 mg/cZUzccbo27.0-118.0[facility] HospitalComment on above:Performed By: #### [id number], [id number], [id number] #### [facility] (DEFAULT) [address] [place] [address] 32916Wpkxwnturu [Osmolality]280 mOsm/LMmain campus medical center HospitalComment on above:Performed By: #### [id number], [id number], [id number] #### [facility] (DEFAULT) [address] [place] [address] 06814Pgqhhvjqf [Moles/Vol]4.1 mmol/LNormal3.6-5.1Mmain [facility] medical center HospitalComment on above:Performed By: #### [id number], [id number], [id number] #### [facility] (DEFAULT) [address] [place] [address] 74089Quspmj [Moles/Vol]139.0 mmol/HKgmaoa497.0-144.0[facility] HospitalComment on above:Performed By: #### [id number], [id number], [id number] #### [facility] (DEFAULT) [address] [place] [address] 24660Hgpo nitrogen [Mass/Vol]19 mg/dLNormal8-26[facility] HospitalComment on above:Performed By: #### [id number], [id number], [id number] #### [facility] (DEFAULT) [address] [place] [address] 32316Yooz nitrogen/Creatinine [Mass ratio]30.0 mg/mgHigh 4.6-16.2Mmain campus medical center HospitalComment on above:Performed By: #### [id number], [id number], [id number] #### [facility] (DEFAULT) [address] [place] [address] 91521LQM w/ Auto Diffon 43-38-0434Shmuowaggao distribution width (RBC) [Ratio]14.8 %Qatxmb33.5-15.0[facility] HospitalComment on above: Performed By: #### [id number], [id number], [id number] #### [facility] (DEFAULT) [address] [place] [address] 78840Laimwyvjpm (Bld) [Volume fraction]37.2 %Ypqtyy04.7-40.4 [facility] HospitalComment on above:Performed By: #### [id number], 71012913, [id number] #### [facility] (DEFAULT) [address] [place] [address] 94518Zilkruobdi (Bld) [Mass/Vol]11.6 g/aWPjjhfc83.3-15.9 [facility] HospitalComment on above:Performed By: #### [id number], [id number], [id number] #### [facility] (DEFAULT) [address] [place] [address] 30080Wmq Diff?AutoNormalTrinity Health System West Campus HospitalComment on above: Performed By: #### [id number], [id number], [id number] #### [facility] (DEFAULT) [address] [place] [address] 76293GPI (RBC) [Entitic mass]26 jjGlnynf90-69Upytbyrk Hospital Comment on above:Performed By: #### [id number], [id number], [id number] #### [facility] (DEFAULT) [address] [place] [address] 31478OFMI (RBC) [Mass/Vol]31 g/jWSgxrem03-29Fnoyhoyq Hospital Comment on above:Performed By: #### [id number], [id number], [id number] #### [facility] (DEFAULT) [address] [place] [address] 25432DSR (RBC) [Entitic vol]83 zFCgskhp71-412Hfyjazgh Hospital Comment on above:Performed By: #### [id number], [id number], [id number] #### [facility] (DEFAULT) [address] [place] [address] 73638Dlosdydv mean volume (Bld) [Entitic vol]10.8 fLHigh 6.3-10.2MCincinnati VA Medical CenterComment on above:Performed By: #### [id number], [id number], [id number] #### [facility] (DEFAULT) [address] [place] [address] 24565Qvfoxjmgs (Bld) [#/Vol]218 k40Mpozyo784-045Apxcovai HospitalComment on above:Performed By: #### [id number], [id number], [id number] #### [facility] (DEFAULT) [address] [place] [address] 66466IDY (Bld) [#/Vol]4.47 v84Lhelcm9.70-5.30[facility] Comment on above:Performed By: #### [id number], [id number], [id number] #### [facility] (DEFAULT) [address] [place] [address] 96127TWF (Bld) [#/Vol]4.8 n88Ibnnkt9.5-10.5[facility] Comment on above:Performed By: #### [id number], [id number], [id number] #### [facility] (DEFAULT) [address] [place] [address] Cnyum4lw 03-76-0954TMN (U) [#/Vol]None SeenNormal [facility] HospitalComment on above:Order Comment: Urinalysis Microscopic order added on by [employer] Rules system.Performed By: #### [id number], [id number], [id number] #### [facility] (DEFAULT) [address] [place] [address] 94367GO Bacteria2+NormalMercy Health Urbana HospitalComment on above:Order Comment: Urinalysis Microscopic order added on by [employer] Rules system. Performed By: #### [id number], [id number], [id number] #### [facility] (DEFAULT) [address] [place] [address] 73644HX Squam EpiModerateNormalTrinity Health System West Campus HospitalComment on above:Order Comment: Urinalysis Microscopic order added on by [employer] Rules system.Performed By: #### [id number], [id number], [id number] #### [facility] (DEFAULT) [address] [place] [address] 91785TK WBC3-5NormLicking Memorial HospitalComment on above:Order Comment: Urinalysis Microscopic order added on by [employer] Rules system. Performed By: #### [id number], [id number], [id number] #### [facility] (DEFAULT) [address] [place], [place] [address]UA w Culture if Ind Standardon 69-67-1410Yezrwljbhw UA NormalMagruder HospitalComment on above:Performed By: #### [id number], [id number], [id number] #### [facility] (DEFAULT) [address] [place] [address] 41875Alupy (U)YellowNormalMagruder HospitalComment on above: Performed By: #### [id number], [id number], [id number] #### [facility] (DEFAULT) [address] [place] [address] 01456Azlueuk?YesNormalMagruder HospitalComment on above: Performed By: #### [id number], [id number], [id number] #### [facility] (DEFAULT) [address] [place] [address] 67538Lkvfait (U) [Mass/Vol]NegativeNormalMagruder Hospital Comment on above:Performed By: #### [id number], [id number], [id number] #### [facility] (DEFAULT) [address] [place] [address] 62473Atfubbx Ql (U)NegativeNormalMagruder HospitalComment on above:Performed By: #### [id number], [id number], [id number] #### [facility] (DEFAULT) [address] [place] [address] 23967Gzdlh?IndicatedMagruder HospitalComment on above:Performed By: #### [id number], [id number], [id number] #### [facility] (DEFAULT) [address] [place] [address] 53863KD BilirubinNegativeNormalMagruder HospitalComment on above:Performed By: #### [id number], [id number], [id number] #### [facility] (DEFAULT) [address] [place] [address] 27138VV BloodNegativeNormalNEGATIVEMagruder HospitalComment on above:Performed By: #### [id number], [id number], [id number] #### [facility] (DEFAULT) [address] [place] [address] 15041DE ClaritySL CLOUDYAbnormalCLEARMasycamore medical center HospitalComment on above:Performed By: #### [id number], [id number], [id number] #### [facility] (DEFAULT) [address] [place] [address] 81660AQ Leuk EstTRACEAbnormalNEGATIVETrinity Health System West Campus HospitalComment on above:Performed By: #### [id number], [id number], [id number] #### [facility] (DEFAULT) [address] [place] [address] 11115DS NitriteNegativeNormalNEGATIVETrinity Health System West Campus HospitalComment on above:Performed By: #### [id number], [id number], [id number] #### [facility] (DEFAULT) [address] [place] [address] 05103RH pH6.5Wbtcjx8-5Ponxfysq HospitalComment on above: Performed By: #### [id number], [id number], [id number] #### [facility] (DEFAULT) [address] [place] [address] 67597ZE ProteinNegativeNormalNEGATIVETrinity Health System West Campus HospitalComment on above:Performed By: #### [id number], [id number], [id number] #### [facility] (DEFAULT) [address] [place] [address] 03949MC Spec Grav1.180Ezhcfe9.001-1.035[facility] HospitalComment on above:Performed By: #### [id number], [id number], [id number] #### [facility] (DEFAULT) [address] [place] [address] 75375XU Urobilinogen0.2 mg/dLNormal0.2-1.0[facility] Comment on above:Performed By: #### [id number], [id number], [id number] #### [facility] (DEFAULT) [address] [place] [address] 82284Gnkhn SourceClean CatchNormalTrinity Health System West Campus HospitalComment on above:Performed By: #### [id number], [id number], [id number] #### [facility] (DEFAULT) [address], [place] [address]DV Knee Complete Left Standingon 36-61-4033HV Knee Complete Left StandingEXAM: XR Knee Complete [...] Signature): Hieu Mcpherson 02/08/20 3:02 pm Technologist[facility] Vital Signs Date TimeVital SignValuePerforming JxioixcjfXkjxtrbn38-78-7516 12:26-0400 Diastolic blood lhkjmide89 mm[Hg]Robert Ball DO Work Phone: [phone] [place], [place] 1030210-27-2025 12:26-0400 Heart rate71 /minBenjamin Ball DO Work Phone: [phone]10-27-2025 12:26-0400 SaO2% (BldA) [Mass fraction]98 %Robert Ball DO Work Phone: [phone] [place], [place] 1030210-27-2025 12:26-0400 Systolic blood mm[Hg]Robert Ball DO Work Phone: [phone] [place], [place] 1030209-15-2025 10:45-0400 Body vmykdi301.4 cmBenjamin Ball DO Work Phone: [phone])[phone]09-15-2025 10:45-0400 Body mass index (BMI) [Ratio]54.6 kg/e5Idedrvcv Ball DO Work Phone: [phone] [place], [place] 1030209-15-2025 10:45-0400 Body cxdpoc703.77 kgBenjamin Ball DO Work Phone: 1(419)[address] [place], [place] 5511409-15-2025 10:45-0400 Diastolic blood ipcsnpsh39 mm[Hg]Robert Ball DO Work Phone: 1(419)[address] [place], [place] 5511409-15-2025 10:45-0400 Heart rate81 /minBenjamin Ball DO Work Phone: 1(419)[address] [place], [place] 5511409-15-2025 10:45-0400 Respiratory rate12 /minBenjamin Ball DO Work Phone: [phone])[address] [place], [place] 5511409-15-2025 10:45-0400 Systolic blood ezrqyqwm242 mm[Hg]Robert Ball DO Work Phone: 1(419)[address] [place], [place] 5511407-22-2025 14:12-0400 Body hdlquk393.4 cmBenjamin Ball DO Work Phone: [phone] [place], [place] 5511407-22-2025 14:12-0400 Body mass index (BMI) [Ratio]53.8 kg/e3Ienxobbv Ball DO Work Phone: 1(419)[address] [place], [place] 5511407-22-2025 14:12-0400 Body ixrfuq165.19 kgBenjamin Ball DO Work Phone: [phone])[address] [place], [place] 5511407-22-2025 14:12-0400 Diastolic blood uxqhqcnm98 mm[Hg]Robert Ball DO Work Phone: 1(419)[address] [place], [place] 5511407-22-2025 14:12-0400 Heart rate76 /minBenjamin Ball DO Work Phone: 1(419)[facility] [place], [place] 1030207-22-2025 14:12-0400 Respiratory rate12 /minBenjamin Ball DO Work Phone: 1(419)[address] [place], [place] 5511407-22-2025 14:12-0400 Systolic blood cyfoaaje898 mm[Hg]Robert Ball DO Work Phone: 1(419)[address] [place], [place] 5511407-18-2025 11:29-0400 Body fsbgru564.4 cmBenjamin Ball DO Work Phone: [phone] [place], [place] 1030207-18-2025 11:29-0400 Body mass index (BMI) [Ratio]53.8 kg/e7Rmlopzqc Ball DO Work Phone: [phone])[address] [place], [place] 5511407-18-2025 11:29-0400 Body yfkuioatiln06.4 [degF]Robert Ball DO Work Phone: [phone])[address] [place], [place] 5511407-18-2025 11:29-0400 Body uyuctv835.19 kgBenjamin Ball DO Work Phone: [phone])[address] [place], [place] 5511407-18-2025 11:29-0400 Diastolic blood mm[Hg]Robert Ball DO Work Phone: 1(444)[address] [place], [place] 5511407-18-2025 11:29-0400 Heart rate82 /minBenjamin Ball DO Work Phone: [phone])[address] [place], [place] 5511407-18-2025 11:29-0400 SaO2% (BldA) [Mass fraction]96 %Robert Ball DO Work Phone: [phone])[address] [place], [place] 5511407-18-2025 11:29-0400 Systolic blood cliweitm226 mm[Hg]Robert Ball DO Work Phone: 1(977)[address] [place], [place] 5511406-19-2025 12:03-0400 Body .4 cmBenjamin Ball DO Work Phone: 1(149)[address] [place], [place] 5511406-19-2025 12:03-0400 Body mass index (BMI) [Ratio]53.3 kg/j3Mvknrcpb Ball DO Work Phone: 1(933)[address] [place], [place] 5511406-19-2025 12:03-0400 Body .83 kgBenjamin Ball DO Work Phone: [phone])[address] [place], [place] 5511406-19-2025 12:03-0400 Diastolic blood wjwehdhj62 mm[Hg]Robert Ball DO Work Phone: 1(530)[address] [place], [place] 5511406-19-2025 12:03-0400 Heart rate82 /minBenjamin Ball DO Work Phone: [facility]06-19-2025 12:03-0400 Respiratory rate12 /minBenjamin Ball DO Work Phone: [facility]06-19-2025 12:03-0400 Systolic blood iptuziik102 mm[Hg]Robert Ball DO Work Phone: [facility]06-09-2025 13:26-0400 Body .4 cmFisher[facility]06-09-2025 13:26-0400Body mass index (BMI) [Ratio]53.3 kg/d1UaofbqgalFisher-Titus Medical Center06-09-2025 13:26-0400Body .83 kgFisher-[facility]06-09-2025 13:26-0400Diastolic blood wmqjchxi02 mm[Hg][facility] 05-06-2025 13:26-0400Heart rate77 /[facility] 05-06-2025 13:26-0400Respiratory rate12 /[facility] 05-06-2025 13:26-0400Systolic blood mm[Hg][facility]06-09-2025 12:07-0400Diastolic blood otzyfbfw19 mm[Hg][facility]06-09-2025 12:07-0400Heart rate75 /[facility]06-09-2025 12:07-1796CrP5% (BldA) [Mass fraction]96 %[facility]06-09-2025 12:07-0400Systolic blood yvisikdf809 mm[Hg][facility]05-19-2025 13:57-0400Body eukwcw868.4 cmFisher-[facility]05-19-2025 13:57-0400Body mass index (BMI) [Ratio]53.4 kg/i3UirusfqelFisher-Titus Medical Center05-19-2025 13:57-0400Body fxdeuc791 kg [facility]05-19-2025 13:57-0400Diastolic blood yakaigtq83 mm[Hg][facility]05-19-2025 13:57-0400Heart rate77 /min [facility]05-19-2025 13:57-0400Respiratory rate18 /min [facility]05-19-2025 13:57-6033WzT1% (BldA) [Mass fraction]98 %[facility]05-19-2025 13:57-0400Systolic blood spsigkca688 mm[Hg][facility]05-13-2025 10:22-0400 Body .4 cmFisher[facility]05-13-2025 10:22-0400Body mass index (BMI) [Ratio]53.6 kg/k8NjlyavuiqFisher-Titus Medical Center05-13-2025 10:22-0400Body msoskg817.45 kgFisher-Titus Medical Center05-13-2025 10:22-0400Diastolic blood mm[Hg][facility] 04-09-2025 10:22-0400Heart rate92 /[facility] 04-09-2025 10:22-0400Respiratory rate12 /[facility] 04-09-2025 10:22-6008MnJ6% (BldA) [Mass fraction]98 %[facility]05-13-2025 10:22-0400Systolic blood mm[Hg][facility]04-23-2025 13:29-0400Body jyrqou061.4 cmBenjamin Ball DO Work Phone: [facility]04-23-2025 13:29-0400 Body mass index (BMI) [Ratio]53.6 kg/e5Bxeatovo Ball DO Work Phone: [facility]04-23-2025 13:29-0400 Body fiyshl667.73 kgBenjamin Ball DO Work Phone: [facility]04-23-2025 13:29-0400 Diastolic blood mm[Hg]Robert Ball DO Work Phone: [facility]04-23-2025 13:29-0400 Heart rate88 /minBenjamin Ball DO Work Phone: 1(460)[facility] [place], [place] [id number] 13:29-0400 SaO2% (BldA) [Mass fraction]97 %Robert Ball DO Work Phone: [phone] [place], [place] [id number] 13:29-0400 Systolic blood ydabvapt002 mm[Hg]Robert Ball DO Work Phone: 1419[facility] [place], [place] 1030204-01-2025 10:38-0400 Diastolic blood zcmydjbw58 mm[Hg]Robert Ball DO Work Phone: 1(475)[address] [place], [place] 5511404-01-2025 10:38-0400 Heart rate73 /minBenjamin Ball DO Work Phone: 1(750)[address] [place], [place] 5511404-01-2025 10:38-0400 SaO2% (BldA) [Mass fraction]99 %Robert Ball DO Work Phone: 1(439)[address] [place], [place] 5511404-01-2025 10:38-0400 Systolic blood dsytiapi326 mm[Hg]Robert Ball DO Work Phone: 1(634)[address] [place], [place] 5511402-19-2025 13:05-0500 Diastolic blood eeinjiqg60 mm[Hg]Robert Ball DO Work Phone: 1(638)[address] [place], [place] 5511402-19-2025 13:05-0500 Heart rate76 /minBenjamin Ball DO Work Phone: 1(070)[address] [place], [place] 5511402-19-2025 13:05-0500 SaO2% (BldA) [Mass fraction]98 %Robert Ball DO Work Phone: 1(890)[address] [place], [place] 5511402-19-2025 13:05-0500 Systolic blood zjribktc845 mm[Hg]Robert Ball DO Work Phone: [address] [place] [id number] 11:57-0500 Body lxakum425.56 cmBenjamin Ball DO Work Phone: 1(638)[address] [place], [place] 5511402-07-2025 11:57-0500 Body mass index (BMI) [Ratio]48.1 kg/o4Urgebszd Ball DO Work Phone: [phone])[address] [place], [place] 5511402-07-2025 11:57-0500 Body hjnvza244.14 kgBenjamin Ball DO Work Phone: [phone])[address] [place], [place] 5511402-07-2025 11:57-0500 Diastolic blood emdylrlh82 mm[Hg]Robert Ball DO Work Phone: [phone])[address] [place], [place] 5511402-07-2025 11:57-0500 Heart rate96 /minBenjamin Ball DO Work Phone: [phone])[address] [place], [place] 5511402-07-2025 11:57-0500 Respiratory rate12 /minBenjamin Ball DO Work Phone: [phone])[address] [place], [place] 5511402-07-2025 11:57-0500 Systolic blood zbkgbuvi046 mm[Hg]Robert Ball DO Work Phone: 1(239)[address] [place], [place] 5511401-29-2025 12:01-0500 Diastolic blood adwsgeve75 mm[Hg]Robert Ball DO Work Phone: 1(784)[address] [place], [place] 5511401-29-2025 12:01-0500 Heart rate70 /minBenjamin Ball DO Work Phone: 1(642)[address] [place], [place] 5511401-29-2025 12:01-0500 Respiratory rate16 /minBenjamin Ball DO Work Phone: 1(373)[address] [place], [place] 5511401-29-2025 12:01-0500 SaO2% (BldA) [Mass fraction]96 %Robert Ball DO Work Phone: 1(352)[address] [place], [place] 5511401-29-2025 12:01-0500 Systolic blood amfgqwev386 mm[Hg]Robert Ball DO Work Phone: 1(609)[address] [place], [place] 5511401-29-2025 11:26-0500 Inhaled oxygen flow rate4 L/minBenjamin Ball DO Work Phone: 1(328)[address] [place], [place] 5511401-29-2025 09:15-0500 Body mmxagh136.4 cmBenjamin Ball DO Work Phone: [facility]01-29-2025 09:15-0500 Body zecrll385.46 kgBenjamin Ball DO Work Phone: [facility]01-15-2025 13:50-0500 Body buclvq086.56 cm[facility]-15-2025 13:50-0500Body mass index (BMI) [Ratio]48.1 kg/j5GacalsvnbFisher-[facility]itus Medical Center01-15-2025 13:50-0500Body .26 kg[facility]01-15-2025 13:50-0500Diastolic blood sfogxxts80 mm[Hg][facility] 12-12-2024 13:50-0500Heart rate89 /[facility] 12-12-2024 13:50-0500Respiratory rate16 /[facility] 12-12-2024 13:50-0500Systolic blood efzvgxlp281 mm[Hg][facility]01-13-2025 13:38-0500Body .56 cm[facility]-13-2025 13:38-0500Body mass index (BMI) [Ratio]48.2 kg/n2BvbkbwprhFisher-[facility]itus Medical Center01-13-2025 13:38-0500Body akovxh000.45 kg[facility]01-13-2025 13:38-0500Diastolic blood ixvfekaj49 mm[Hg] [facility]01-13-2025 13:38-0500Heart rate88 /[facility]01-13-2025 13:38-1904XaN3% (BldA) [Mass fraction]98 % [facility]01-13-2025 13:38-0500Systolic blood dnrhpiad415 mm[Hg][facility]01-10-2025 11:02-0500Body egqkqo336.56 cm [facility]01-10-2025 11:02-0500Body mass index (BMI) [Ratio]48.3 kg/d1AsuxpemlqFisher-[facility]itus Medical Center01-10-2025 11:02-0500Body qrufwy360.68 kg[facility]01-10-2025 11:02-0500Diastolic blood oinayyzv18 mm[Hg][facility]01-10-2025 11:02-0500 Heart rate96 /[facility]01-10-2025 11:02-0500 Respiratory rate12 /[facility]01-10-2025 11:02-0500 Systolic blood mm[Hg][facility]10-08-2024 09:46-0400Diastolic blood mm[Hg]DO Robert Ball Work Phone: 1(870)[address]10-08-2024 09:46-0400 Heart rate73 /minDO Robert Ball Work Phone: 1(279)[address]10-08-2024 09:46-0400 SaO2% (BldA) [Mass fraction]97 %DO Robert Ball Work Phone: 1(842)[address]10-08-2024 09:46-0400 Systolic blood yoqhdcjz250 mm[Hg]DO Robert Ball Work Phone: 1(540)[address]09-27-2024 11:03-0400 Heart rate97 /minDO Robert Ball Work Phone: 1(720)[address]09-27-2024 11:03-0400 SaO2% (BldA) [Mass fraction]96 %DO Robert Ball Work Phone: 1(514)113-[address] [place], [place] 1030209-13-2024 14:18-0400 Diastolic blood npykckyx29 mm[Hg]DO Robert Ball Work Phone: 1(421)[address]09-13-2024 14:18-0400 Heart rate73 /minDO Robert Ball Work Phone: 1(795)299-[address] [place], [place] 1030209-13-2024 14:18-0400 Respiratory rate16 /minDO Robert Ball Work Phone: 1(785)262-[address] [place], [place] 1030209-13-2024 14:18-0400 SaO2% (BldA) [Mass fraction]98 %DO Robert Ball Work Phone: 1(817)856-[address] [place], [place] 1030209-13-2024 14:18-0400 Systolic blood zatbllci109 mm[Hg]DO Robert Ball Work Phone: [phone])[address]09-13-2024 12:13-0400 Body .4 cmDO Robert Ball Work Phone: 1419)[address] [place], [place] 5511409-13-2024 12:13-0400 Body usypgm885.2 kgDO Robert Ball Work Phone: 1419)[address] [place], [place] 5511409-09-2024 10:49-0400 Body .4 cmDO Robert Ball Work Phone: 1419)[address] [place], [place] 5511409-09-2024 10:49-0400 Body mass index (BMI) [Ratio]54.5 kg/m2DO Robert Ball Work Phone: 1419)[address] [place], [place] 5511409-09-2024 10:49-0400 Body tcjuzi635.6 kgDO Robert Ball Work Phone: 1(027)[address] [place], [place] 5511409-09-2024 10:49-0400 Diastolic blood pukvdalv14 mm[Hg]DO Robert Ball Work Phone: 1(351)[address] [place], [place] 5511409-09-2024 10:49-0400 Heart rate65 /minDO Robert Ball Work Phone: 1(983)[address] [place], [place] 5511409-09-2024 10:49-0400 Respiratory rate12 /minDO Robert Ball Work Phone: 1(293)[address] [place], [place] 5511409-09-2024 10:49-0400 Systolic blood scdytvbw255 mm[Hg]DO Robert Ball Work Phone: 1(973)[address] [place], [place] 5511409-03-2024 11:13-0400 Diastolic blood gnfqpuxd21 mm[Hg]DO Robert Ball Work Phone: 1(549)[address] [place], [place] 5511409-03-2024 11:13-0400 Heart rate71 /minDO Robert Ball Work Phone: 1(265)[address] [place], [place] 5511409-03-2024 11:13-0400 SaO2% (BldA) [Mass fraction]97 %DO Robert Ball Work Phone: [phone]09-03-2024 11:13-0400 Systolic blood sknesatw311 mm[Hg]DO Robert Ball Work Phone: [phone]07-01-2024 14:21-0400 Body aozigo053.4 cmDO Robert Ball Work Phone: 1(725)994-[address] [place], [place] 1030207-01-2024 14:21-0400 Body mass index (BMI) [Ratio]52.1 kg/m2DO Robert Ball Work Phone: 1(104)[address]07-01-2024 14:21-0400 Body nqueom453.1 kgDO Robert Ball Work Phone: [phone]07-01-2024 14:21-0400 Diastolic blood lgqeymqr35 mm[Hg]DO Robert Ball Work Phone: 1(373)899-[address] [place], [place] 1030207-01-2024 14:21-0400 Heart rate68 /minDO Robert Ball Work Phone: [phone]07-01-2024 14:21-0400 Respiratory rate18 /minDO Orbert Ball Work Phone: [phone]07-01-2024 14:21-0400 SaO2% (BldA) [Mass fraction]98 %DO Robert Ball Work Phone: [phone]07-01-2024 14:21-0400 Systolic blood uhopkpqe045 mm[Hg]DO Robert Ball Work Phone: [phone]06-03-2024 15:05-0400 Diastolic blood xigvlxis86 mm[Hg][facility]06-03-2024 15:05-0400Heart rate98 /[facility]06-03-2024 15:05-3079VyZ5% (BldA) [Mass fraction]97 %[facility] 04-30-2024 15:05-0400Systolic blood uuoowdnm179 mm[Hg][facility]05-02-2024 10:44-0400Body vjzjek929.4 cm[facility] 03-29-2024 10:44-0400Body mass index (BMI) [Ratio]53.6 kg/j2QixrddxlpFisher-[facility]itus Medical Center05-02-2024 10:44-0400Body vdhucq561.45 kgFisher[facility]05-02-2024 10:44-0400Diastolic blood qrbbabwz18 mm[Hg][facility]05-02-2024 10:44-0400Heart rate75 /[facility]05-02-2024 10:44-0400Respiratory rate16 /[facility]05-02-2024 10:44-0400Systolic blood wzmawavu395 mm[Hg][facility]03-20-2024 14:20-0400Body wejdqw444.4 cmDO Robert Ball Work Phone: [facility]03-20-2024 14:20-0400 Body mass index (BMI) [Ratio]53.1 kg/m2DO Robert Ball Work Phone: [facility]03-20-2024 14:20-0400 Body kbhras292.37 kgDO Robert Ball Work Phone: [facility]03-20-2024 14:20-0400 Diastolic blood dobxtxrk16 mm[Hg]DO Robert Ball Work Phone: [facility]03-20-2024 14:20-0400 Heart rate77 /minDO Robert Ball Work Phone: [facility]03-20-2024 14:20-0400 Respiratory rate16 /minDO Robert Ball Work Phone: [facility]03-20-2024 14:20-0400 Systolic blood adjuyddc068 mm[Hg]DO Robert Ball Work Phone: [facility]10-25-2023 14:00-0400 Body wvauef970.4 cmBenjamin Ball Other [facility] Other 10-25-2023 14:00-0400Body mass index (BMI) [Ratio] 52.69 kg/l1Vfzmhcch Ball Other [employer] Other 10-25-2023 14:00-0400Body xlcnut568.38 kgBenjamin Ball Other [facility] Other 10-25-2023 14:00-0400Diastolic blood qwbansbc26 mm[Hg] Robert Ball Other [employer] Other 10-25-2023 14:00-0400Respiratory rate20 /minBenjamin Ball Other [employer] Other 10-25-2023 14:00-0400Systolic blood mm[Hg] Robert Ball Other [facility] Other 09-18-2023 15:00-0400Body mwefdm463.4 cmBenjamin Ball Other [employer] Other 09-18-2023 15:00-0400Body mass index (BMI) [Ratio] 54.33 kg/t7Evvnjhiv Ball Other [employer] Other 09-18-2023 15:00-0400Body uqjsku174.19 kgBenjamin Ball Other [employer] Other 09-18-2023 15:00-0400Diastolic blood eslleizk03 mm[Hg] Robert Ball Other [employer] Other 09-18-2023 15:00-0400Respiratory rate16 /minBenjamin Ball Other [facility] Other 09-18-2023 15:00-0400Systolic blood qithkiob402 mm[Hg] Robert Ball Other [facility] Other 08-14-2023 11:00-0400Body .4 cmBenjamin Ball Other [facility] Other 08-14-2023 11:00-0400Body mass index (BMI) [Ratio] 55.26 kg/b6Twmgeoon Ball Other [employer] Other 08-14-2023 11:00-0400Body warzab310.37 kgBenjamin Ball Other [facility] Other 08-14-2023 11:00-0400Diastolic blood glumskpt57 mm[Hg] Robert Ball Other [facility] Other 08-14-2023 11:00-0400Respiratory rate16 /minBenjamin Ball Other [employer] Other 08-14-2023 11:00-0400Systolic blood jmeeaijt024 mm[Hg] Robert Ball Other [employer] Other 06-28-2023 14:00-0400Body pnsyfr819.4 cmBenjamin Ball Other [employer] Other 06-28-2023 14:00-0400Body mass index (BMI) [Ratio] 54.25 kg/f8Cvejzddp Ball Other [employer] Other 06-28-2023 14:00-0400Body kqqopn042.01 kgBenjamin Ball Other [employer] Other 06-28-2023 14:00-0400Diastolic blood tfizmdnb64 mm[Hg] Robert Ball Other [employer] Other 06-28-2023 14:00-0400Respiratory rate16 /minBenjamin Ball Other [employer] Other 06-28-2023 14:00-0400Systolic blood rxtqmzej055 mm[Hg] Robert Ball Other [employer] Other 05-12-2023 12:15-0400Body xarewh385.4 cmBenjamin Ball Other [employer] Other 05-12-2023 12:15-0400Body mass index (BMI) [Ratio] 53.84 kg/s3Vvoeilhb Ball Other [employer] Other 05-12-2023 12:15-0400Body .06 kgBenjamin Ball Other [employer] Other 05-12-2023 12:15-0400Diastolic blood gwgrcapo32 mm[Hg] Robert Ball Other [employer] Other 05-12-2023 12:15-0400Respiratory rate12 /minBenjamin Ball Other [employer] Other 05-12-2023 12:15-0400Systolic blood zsahjwls382 mm[Hg] Robert Ball Other [employer] Other 04-26-2023 14:30-0400Body .4 cmBenjamin Ball Other [employer] Other 04-26-2023 14:30-0400Body mass index (BMI) [Ratio] 53.82 kg/z5Mdjeesnu Ball Other [employer] Other 04-26-2023 14:30-0400Body oggehc864.01 kgBenjamin Ball Other [employer] Other 04-26-2023 14:30-0400Diastolic blood jyoytqeu74 mm[Hg] Robert Ball Other [employer] Other 04-26-2023 14:30-0400Respiratory rate12 /minBenjamin Ball Other [employer] Other 04-26-2023 14:30-0400Systolic blood lhaewxud504 mm[Hg] Robert Ball Other [employer] Other 04-05-2023 12:00-0400Body ilmsmj264.4 cmBenjamin Ball Other [employer] Other 04-05-2023 12:00-0400Body mass index (BMI) [Ratio] 54.01 kg/s8Jciijres Ball Other [employer] Other 04-05-2023 12:00-0400Body dmwwby855.47 kgBenjamin Ball Other [employer] Other 04-05-2023 12:00-0400Diastolic blood zjubgjce92 mm[Hg] Robert Ball Other [employer] Other 04-05-2023 12:00-0400Respiratory rate12 /minBenjamin Ball Other [facility] Other 04-05-2023 12:00-0400Systolic blood czvtiahj755 mm[Hg] Robert Ball Other [facility] Other 03-20-2023 14:15-0400Body ctuabz078.4 cmSherif Emelyn Other [facility] Other 03-20-2023 14:15-5827PgB1% (BldA) [Mass fraction]98 % Michael Dunaway Other [facility] Other 03-02-2023 15:00-0500Body vnfrxe176.4 cmSif Emelyn Other [facility] Other 03-02-2023 15:00-0500Diastolic blood edlljpuk99 mm[Hg] Michael Dunaway Other [employer] Other 03-02-2023 15:00-4705QfO2% (BldA) [Mass fraction]98 % [facility] Other 03-02-2023 15:00-0500Systolic blood dbujphcs366 mm[Hg] Michael Dunaway Other [employer] Other 02-03-2023 12:30-0500Body vewpaw126.4 cmSherif Emelyn Other [employer] Other 02-03-2023 12:30-2303KgH2% (BldA) [Mass fraction]96 % Michael Dunaway Other [employer] Other 01-30-2023 11:15-0500Body .4 cmIvon Batista Other [employer] Other 01-30-2023 11:15-0500Body mass index (BMI) [Ratio] 53.08 kg/x1FosnwaIvon Batista Other [employer] Other 01-30-2023 11:15-0500Body mcttvoitwyq93 [degF]Ivon Eusebio Other [employer] Other 01-30-2023 11:15-0500Body oezflf022.29 kgIvon Eusebio Other [employer] Other 01-30-2023 11:15-0500Diastolic blood mkbeapqd11 mm[Hg] Ivon Batista Other [employer] Other 01-30-2023 11:15-4774PpD2% (BldA) [Mass fraction]96 % Ivon Batista Other [employer] Other 01-30-2023 11:15-0500Systolic blood wtuihmwu533 mm[Hg] Ivon Batista Other [employer] Other 01-05-2023 11:45-0500Body usagir960.4 cmPegvishal Velarde Other [employer] Other 01-05-2023 11:45-0500Diastolic blood hdcnyhob42 mm[Hg] Ursula Velarde Other [employer] Other 01-05-2023 11:45-7185DjK4% (BldA) [Mass fraction]97 % Ursula Velarde Other [facility] Other 01-05-2023 11:45-0500Systolic blood txtfalhs500 mm[Hg] Ursula Velarde Other [facility] Other 12-06-2022 12:15-0500Body hcjubo205.4 cmSraúl Dunaway Other [facility] Other 12-06-2022 12:15-0500Diastolic blood abeiqahk71 mm[Hg] Michael Dunaway Other [facility] Other 12-06-2022 12:15-8544CpL0% (BldA) [Mass fraction]98 % Michael Dunaway Other [facility] Other 12-06-2022 12:15-0500Systolic blood nkgtdzox671 mm[Hg] Michael Dunaway Other [facility] Other 10-15-2022 11:55-0400Body lgzoti632.4 Mariam Foy Other [facility] Other 10-15-2022 11:55-0400Body mass index (BMI) [Ratio] 50.77 kg/i1WazbbKaitlynn Foy Other [facility] Other 10-15-2022 11:55-0400Body fupkitqafzw96.8 [degF]Kaitlynn Foy Other [facility] Other 10-15-2022 11:55-0400Body jaqcuq486.94 kgKaitlynn Foy Other [facility] Other 10-15-2022 11:55-0400Respiratory rate18 /minAmber Law Other [facility] Other 10-15-2022 11:55-5088UcE8% (BldA) [Mass fraction]97 % Kaitlynn Law Other [facility] Other 10-14-2022 12:30-0400Body nrzyfr853.4 cmSherif Emelyn Other [employer] Other 10-14-2022 12:30-0400Diastolic blood mnuedooe28 mm[Hg] Michael Emelyn Other [employer] Other 10-14-2022 12:30-4743XyQ1% (BldA) [Mass fraction]99 % Michaelrancho Dunaway Other [employer] Other 10-14-2022 12:30-0400Systolic blood kdrmyspb408 mm[Hg] Michael Emelyn Other [employer] Other 09-01-2022 17:45-0400Body xurcvh439.4 cmSherif Emelyn Other [employer] Other 09-01-2022 17:45-0400Diastolic blood mtwrjdyu02 mm[Hg] Michael Emelyn Other [employer] Other 09-01-2022 17:45-0078AoW6% (BldA) [Mass fraction]99 % Michael Emelyn Other [employer] Other 09-01-2022 17:45-0400Systolic blood aoutmlcu975 mm[Hg] Michael Anthonyky Other [facility] Other 08-05-2022 13:00-0400Body rfumay764.4 cmSraúl Dunaway Other [facility] Other 08-05-2022 13:00-0400Body mass index (BMI) [Ratio] 53.97 kg/w2AxprqjMichael Dunaway Other [facility] Other 08-05-2022 13:00-0400Body yfkcrd937.38 kgEvanseduardkash Dunaway Other [facility] Other 08-05-2022 13:00-0400Diastolic blood uxfmbxmx39 mm[Hg] Michael Emelyn Other [facility] Other 08-05-2022 13:00-0178VfZ1% (BldA) [Mass fraction]97 % Michael Emelyn Other [facility] Other 08-05-2022 13:00-0400Systolic blood hidhqcni533 mm[Hg] Michael Dunaway Other [facility] Other 07-27-2022 12:52-0400Diastolic blood szelignh43 mm[Hg] DO Robert Ball Work Phone: [facility]07-27-2022 12:52-0400 Heart rate73 /minDO Robert Ball Work Phone: [facility]07-27-2022 12:52-0400 Respiratory rate20 /minDO Robert Ball Work Phone: [facility]07-27-2022 12:52-0400 SaO2% (BldA) [Mass fraction]97 %DO [employer] Work Phone: [facility]07-27-2022 12:52-0400 Systolic blood sptypopp285 mm[Hg]DO Robert [employer] Work Phone: [facility]07-27-2022 12:16-0400 Inhaled oxygen flow rate3 L/minDO Robert [employer] Work Phone: [facility]07-27-2022 10:24-0400 Body grhtar606.4 cmDO Robert [employer] Work Phone: [facility]07-27-2022 10:24-0400 Body ygzzxs128.37 kgDO Robert [employer] Work Phone: [facility]07-22-2022 12:15-0400 Body wysecr680.4 cmSraúl Dunaway Other [facility] Other 07-22-2022 12:15-0400Body mass index (BMI) [Ratio] 53.19 kg/c2Msaiwvsunni Dunaway Other [facility] Other 07-22-2022 12:15-0400Body wuckcv831.56 kgSheduardkash Emelyn Other [facility] Other 07-22-2022 12:15-0400Diastolic blood kjcigmfk09 mm[Hg] Michael Dunaway Other [employer] Other 07-22-2022 12:15-4720BpZ5% (BldA) [Mass fraction]96 % Michael [facility]unaway [facility] Other 07-22-2022 12:15-0400Systolic blood velmcuwn931 mm[Hg] Michael Dunaway Other [facility] Other 06-08-2022 06:31-0400Body .4 cmDO Robert [employer] Work Phone: [facility]06-08-2022 06:31-0400 Body mass index (BMI) [Ratio]51.7 kg/m2DO Robert [employer] Work Phone: [facility]06-08-2022 06:31-0400 Body zbsciu000.2 kgDO Robert [employer] Work Phone: [facility]04-14-2022 17:15-0400 Body .4 cmSraúl Dunaway Other [facility] Other 04-14-2022 17:15-0400Diastolic blood ohvamsmi76 mm[Hg] Michael Dunaway Other [facility] Other 04-14-2022 17:15-2785VpS5% (BldA) [Mass fraction]98 % Michael Dunaway Other [facility] Other 04-14-2022 17:15-0400Systolic blood jxooipbh678 mm[Hg] Michael Dunaway Other [facility] Other 04-07-2022 09:59-0400Blood Pressure LocationMichael NILL [phone]-[facility]vmklC[facility] [place] 04-07-2022 09:59-0400Diastolic blood mcxmxyuy89 mm[Hg] Taye NILL [phone]-KjkozCincinnati [facility] [place] 04-07-2022 09:59-0400Heart rate72 /minMichael NILL [phone]-AcbebCincinnati [facility] [place] 04-07-2022 09:59-0400Respiratory rate20 /minMichael NILL [phone]-QwvowCincinnati [facility] [place] 04-07-2022 09:59-0400Systolic blood zqqookjo534 mm[Hg] Taye MUROL [phone]-[facility]xy[facility] [place] 03-24-2022 17:00-0400Body zhxipy231.4 cmSraúl uDnaway Other [employer] [facility] Other 03-24-2022 17:00-0400Body mass index (BMI) [Ratio] 53.51 kg/v0AmkynbMichael Dunaway Other [facility] Other 03-24-2022 17:00-0400Body yuxite272.29 kgShsunni Dunaway Other [facility] Other 03-24-2022 17:00-0400Diastolic blood qelijfga90 mm[Hg] Michael Dunaway Other [facility] Other 03-24-2022 17:00-9211PxK8% (BldA) [Mass fraction]94 % Michael Dunaway Other [employer] Other 03-24-2022 17:00-0400Systolic blood eazzyqdt505 mm[Hg] Michael Dunaway Other [employer] Other 03-03-2022 17:00-0500Body ploaol165.4 cmDale Batista Other [employer] Other 03-03-2022 17:00-0500Body mass index (BMI) [Ratio] 50.38 kg/m2Dale Batista Other [employer] Other 03-03-2022 17:00-0500Body bgseqt439.03 kgDale Batista Other [employer] Other 2021 12:20-0500Body btazsi032.4 cmPamela Iris Other [employer] Other 2021 12:20-0500Body mass index (BMI) [Ratio] 50.38 kg/r8Ghqcpg Iris Other [employer] Other 2021 12:20-0500Body kgwvtkpboee56.9 [degF]Quita Iris Other [employer] Other 2021 12:20-0500Body byvpgs659.03 kgPajimena Simmons Other [employer] Other 2021 12:20-0500Diastolic blood dobyevem18 mm[Hg] Quita Iris Other [employer] Other 2021 12:20-0500Respiratory rate18 /minPaalyssaa Iris Other [employer] Other 2021 12:20-6675CaH3% (BldA) [Mass fraction]96 % Quita Iris Other [employer] Other 2021 12:20-0500Systolic blood eobyrsgt024 mm[Hg] Quita Simmons Other [facility] Other Encounters Encounter DateEncounter TypeCare ProviderFacilityStart: 09-23-2025 End: 74-64-2830febnmkghgfGecznixu Ball DO Work Phone: [phone]-Njibligcq [facility] Pain MgmtStart: 09-23-2025 End: 87-65-9247Zsajmee encounter procedureSraúl Dunaway MD-[facility] Work Phone: Start: 08-12-2025 End: 27-10-9649qebvdqeejcPembvqwu Ball DO Work Phone: [facility] Work Phone: Start: 08-12-2025 End: 51-61-5199Fwoeeyc encounter procedureBenjamin Ball DO-[facility] Work Phone: Start: 06-18-2025 End: 92-44-6975bliojpherfDvjzpbvk Ball DO Work Phone: [facility] Work Phone: Start: 06-18-2025 End: 72-90-9373Flotytj encounter procedureBenjamin Ball DO-[facility] Work Phone: Start: 06-14-2025 End: 54-38-5069bplmsytxocCtjvhupq Ball DO Work Phone: [facility] Work Phone: Start: 06-14-2025 End: 07-71-0524Yxpphnq encounter procedureMorena Donato APRN [employer]-[facility] Work Phone: Start: 05-16-2025 End: 41-42-0244Fnlofhc encounter procedureBenjamin Ball DO-[facility] Work Phone: Start: 05-09-2025 End: 59-14-2852Cjhmlr flowsheetSammantha Harper PTNOMS CI PTStart: 05-09-2025 End: 03-95-2980Rzhnhj flowsheetSammantha Harper PTNOMS CI PTStart: 05-09-2025 End: 72-03-3658ohdmyxbfowYxwlwwupu Harper PTNOMS CI PTComment on above:Low back pain, unspecified back pain laterality, unspecified chronicity, unspecified whether sciatica present (Primary Dx)Start: 05-07-2025 End: 27-71-7006Fnnlzk Kathy Loco PTANO CI PTStart: 05-07-2025 End: 42-54-4726Duqzlu Kathy Loco PTANO CI PTStart: 05-07-2025 End: 99-33-6012fcmwakfxjeIoxnvsf Lawrence PTANO CI PTComment on above:Low back pain, unspecified back pain laterality, unspecified chronicity, unspecified whether sciatica present (Primary Dx)Start: 05-06-2025 End: 10-73-4359tmqksmmpwtJnwthmmcwLicking [facility] Work Phone: Start: 05-06-2025 End: 73-07-7042Fvfuvkz encounter [facility] Work Phone: Start: 05-06-2025 End: 40-47-5831releencqdhNhcyzpajeLicking Memorial Hospital Work Phone: Start: 05-06-2025 End: 52-63-5035Coyhmip encounter procedureAt[facility] Work Phone: Start: 05-03-2025 End: 38-52-6973Owkdmc flowsheetSammantha Harper PTNOMS CI PTStart: 05-03-2025 End: 29-32-3815Hfylqo flowsheetSammantha Harper PTNOMS CI PTStart: 05-03-2025 End: 31-64-5446bizoxxsvylGjeejiyuv Harper PTNOMS CI PTComment on above:Low back pain, unspecified back pain laterality, unspecified chronicity, unspecified whether sciatica present (Primary Dx)Start: 04-30-2025 End: 73-67-5680Ddomzh Kathy STACK CI PTStart: 04-30-2025 End: 40-29-5255Ajpbty Kathy STACK CI PTStart: 04-30-2025 End: 43-04-5150ftlloerxbfNQGBUQTDesi HOLLOWAY HealthcareComment on above:Low back pain, unspecified back pain laterality, unspecified chronicity, unspecified whether sciatica present (Primary Dx)Start: 04-26-2025 End: 23-55-4285Olfbha Kathy STACK CI PTStart: 04-26-2025 End: 46-10-7504Waxoic Kathy STACK CI PTStart: 04-26-2025 End: 11-60-2427vikrwekfkvJzyfopxDesi STACK CI PTComment on above:Low back pain, unspecified back pain laterality, unspecified chronicity, unspecified whether sciatica present (Primary Dx)Start: 04-23-2025 End: 68-76-6844likizxgnjaGtlqtpuDesi STACK CI PTComment on above:Low back pain, unspecified back pain laterality, unspecified chronicity, unspecified whether sciatica present (Primary Dx)Start: 04-23-2025 End: 52-79-1891Hqxttk Kathy STACK CI PTStart: 04-23-2025 End: 67-34-6363Zzvtlt Kathy STACK CI PTStart: 04-19-2025 End: 41-81-6776rxogbczehfWRVBCNNVL SCHNEIDERNot AvailableStart: 78-34-6024Vbv- patient / Non-visitAtrium Health [facility] Work Phone: Start: 04-15-2025 End: 34-73-7346Nnodsr miriheetSbob Harper PTNOMS CI PTStart: 04-15-2025 End: 37-76-2277Huvaje miriheetSbob Harper PTNOMS CI PTStart: 04-15-2025 End: 99-94-7979Lsfnddu encounter procedureAt[facility] GroupNov[facility] Work Phone: Start: 04-15-2025 End: 63-20-0207luzthndppkRlilwruxe Harper PTNOMS CI PTComment on above:Low back pain, unspecified back pain laterality, unspecified chronicity, unspecified whether sciatica present (Primary Dx)Start: 04-11-2025 End: 42-31-7161Ejdlkn flowsheetSammantha Harper PTNOMS CI PTStart: 04-11-2025 End: 89-38-2368Vqojyt flowsheetSammantha Harper PTNOMS CI PTStart: 04-11-2025 End: 73-55-8901vmgrmlurmyCdmpvwkog Harper PTNOMS CI PTComment on above:Low back pain, unspecified back pain laterality, unspecified chronicity, unspecified whether sciatica present (Primary Dx)Start: 04-09-2025 End: 60-03-4505dyusvdkzhgGobzgtdqwLicking Memorial Hospital Work Phone: Start: 04-09-2025 End: 23-65-6968Jnclgcx encounter procedureAt[facility] Work Phone: Start: 04-04-2025 End: 79-04-2211nkiecgrmshPjljyuk Lawrence KODAKNO CI PTComment on above:Low back pain, unspecified back pain laterality, unspecified chronicity, unspecified whether sciatica present (Primary Dx)Start: 04-04-2025 End: 90-66-7741Rfzhbh Michellegrecia Loco KODAKNO CI PTStart: 04-04-2025 End: 33-88-0509Fjfcrq Michellegrecia Xiao CANDELARIONO CI PTStart: 04-01-2025 End: 38-81-9331vyvdxqpasnHaqahagop Schneider PTNOMS CI PTComment on above:Low back pain, unspecified back pain laterality, unspecified chronicity, unspecified whether sciatica present (Primary Dx)Start: 03-28-2025 End: 36-12-2444pntqvuqlmrYlofqbdlrLicking Memorial Hospital Work Phone: Start: 03-28-2025 End: 82-61-8917Ahlbpgv [facility] Work Phone: Start: 03-21-2025 End: 39-81-5166Waledx flowsheetSammantha Harper PTNOMS CI PTStart: 03-21-2025 End: 29-45-9863Mirbgd flowsheetSammantha Harper PTNOMS CI PTStart: 03-21-2025 End: 63-90-1982pczcgmoybqQznilqacm Harper PTNOMS CI PTComment on above:Low back pain, unspecified back pain laterality, unspecified chronicity, unspecified whether sciatica present (Primary Dx)Start: 03-20-2025 End: 46-08-5538wfprckzlbkZxgvbpjo Ball DO Work Phone: [facility] Work Phone: start: 03-20-2025 End: 17-44-5535Rdgxvfb encounter procedureBenjamin Ball DO Work Phone: [facility] Work Phone: Start: 03-14-2025 End: 19-56-4745Qqpjyh flowsheetSammantha Harper PTNOMS CI PTStart: 03-14-2025 End: 70-91-1479Ozjkwl flowsheetSammantha Harper PTNOMS CI PTStart: 03-14-2025 End: 92-39-6954bmptzutpkaAgzuwmssf Harper PTNOMS CI PTComment on above:Low back pain, unspecified back pain laterality, unspecified chronicity, unspecified whether sciatica present (Primary Dx)Start: 03-12-2025 End: 86-77-6420qhbxhlprcaHvbxyeso Ball DO Work Phone: [facility] Work Phone: start: 03-12-2025 End: 38-99-0903Xchbrdl encounter procedureBenjamin Ball DO Work Phone: [facility] Work Phone: Start: 52-44-2478Gid-patient / Non-visitBenjamin Ball DO Work Phone: [facility] GroupMad[facility] Work Phone: Start: 02-28-2025 End: 17-98-3651Kmlkwv flowsheetSammantha Harper PTNOMS CI PTStart: 02-28-2025 End: 11-97-3825Dseiuf flowsheetSammantha Harper PTNOMS CI PTStart: 02-28-2025 End: 37-84-6333qbpzsrgoyhEcjzsjxuq Harper PTNOMS CI PTComment on above:Low back pain, unspecified back pain laterality, unspecified chronicity, unspecified whether sciatica present (Primary Dx)Start: 02-26-2025 End: 76-69-3028fceuljllymVjgwqcz R NILLFacility: BellevueStart: 02-26-2025 End: 10-02-1723vpnoafxkhzBbvyaezh Ball DO Work Phone: [facility] Work Phone: Start: 02-26-2025 End: 07-67-4416Nxwrqxe encounter procedureBenjamin Ball DO Work Phone: [facility] GroupSt[facility] Work Phone: Start: 02-25-2025 End: 29-07-6191Qmxbjz flowsheetMelissa Kelbley PTANOMS CI PTStart: 02-25-2025 End: 40-45-4626Bblesm flowsheetMelissa Kelbley PTANOMS CI PTStart: 02-25-2025 End: 25-50-8595clqucwmsozYtuveqm Kelbley PTANOMS CI PTComment on above:Low back pain, unspecified back pain laterality, unspecified chronicity, unspecified whether sciatica present (Primary Dx)Start: 90-59-7262hyrryciffmYpcpnop NILL Facility: [place]vueStart: 02-20-2025 End: 73-78-0303Zqogvl flowsheetMelissa Kelbley PTANOMS CI PTStart: 02-20-2025 End: 69-85-1625Jisscf flowsheetMelissa Kelbley PTANOMS CI PTStart: 02-20-2025 End: 16-22-8381yyixqdthnbQoshirt Kelbley PTANOMS CI PTComment on above:Low back pain, unspecified back pain laterality, unspecified chronicity, unspecified whether sciatica present (Primary Dx)Start: 12-87-2998Mcv-patient / Non-visit Robert Vail DO Work Phone: [facility] Work Phone: Start: 02-14-2025 End: 36-77-3605pzituyffxeVcavshad Ball DO Work Phone: [facility] Work Phone: Start: 02-14-2025 End: 54-28-6010Jbvsqhc encounter procedureBenmeagan Ball DO Work Phone: [facility] Work Phone: Start: 02-13-2025 End: 55-79-5672snmfqifwncEMLVJGF LAWRENCENot AvailableStart: 02-07-2025 End: 53-77-3253Ntludt flowsheetMelissa Kelbley PTANOMS CI PTStart: 02-07-2025 End: 47-89-2380Bfgmxv flowsheetMelissa Kelbley PTANOMS CI PTStart: 02-07-2025 End: 89-88-8858qyardrpxdvDrckqap Kelbley PTANOMS CI PTComment on above:Low back pain, unspecified back pain laterality, unspecified chronicity, unspecified whether sciatica present (Primary Dx)Start: 02-04-2025 End: 21-66-8633gbeqpclejcNNLORAK KELBLEYNot AvailableStart: 01-28-2025 End: 19-68-1344Qlqkbmmir encounterSammantha Leroy PTNOMS CI PTComment on above:Cx PT 01/28/25Start: 01-23-2025 End: 51-14-1097Ednisg flowsheetSammantha Leroy PTNOMS CI PTStart: 01-23-2025 End: 36-55-0050Gheyuw flowsheetSammantha Harper PTNOMS CI PTStart: 01-23-2025 End: 73-93-1042kzfimarrqoXqrhzcowi Harper PTNOMS CI PTComment on above:Low back pain, unspecified back pain laterality, unspecified chronicity, unspecified whether sciatica present (Primary Dx)Start: 01-21-2025 End: 83-10-6811ltypgyxtopArcboexDesi Loco PTANOMS CI PTComment on above:Low back pain, unspecified back pain laterality, unspecified chronicity, unspecified whether sciatica present (Primary Dx)Start: 01-21-2025 End: 15-29-8056Ksjqyw flowsNolvia Loco PTANOMS CI PTStart: 01-21-2025 End: 45-38-7735Amfqhj Kathy Loco PTANOMS CI PTStart: 01-17-2025 End: 79-63-8383Ljwive Kathy Loco PTANOMS CI PTStart: 01-17-2025 End: 69-57-8225Kmoudq Kathy Loco PTANOMS CI PTStart: 01-17-2025 End: 89-15-0771omigyvfjakGiwbdua Lawrence PTANOMS CI PTComment on above:Low back pain, unspecified back pain laterality, unspecified chronicity, unspecified whether sciatica present (Primary Dx)Start: 01-16-2025 End: 31-12-0231vclzkqtdhcXgwujzlf Ball DO Work Phone: [facility] Work Phone: Start: 01-16-2025 End: 04-11-6921Qetgsfe encounter procedureBenjamin Ball DO Work Phone: [facility] GroupNov[facility] Work Phone: Start: 01-14-2025 End: 97-56-0800Uciiwn flowsheetSammantha Harper PTNOMS CI PTStart: 01-14-2025 End: 51-22-1928Cbagld flowsheetSammantha Harper PTNOMS CI PTStart: 01-14-2025 End: 32-81-6436kmqiiqknmpDxuxpzxpy Harper PTNOMS CI PTComment on above:Low back pain, unspecified back pain laterality, unspecified chronicity, unspecified whether sciatica present (Primary Dx)Start: 01-04-2025 End: 32-36-8472jfczufjdmxFajmmqio Ball DO Work Phone: [facility] Work Phone: Start: 01-04-2025 End: 24-24-7665Zsprcfq encounter procedureBenjamin Ball DO Work Phone: [facility] Work Phone: Start: 81-35-5384Zcd-patient / Non-visitBenjamin Ball DO Work Phone: [facility] Pain Mgmt Work Phone: Start: 12-26-2024 End: 56-83-5082Pgvkpnxxp to same day surgery centerBenjocemin Ball DO Work Phone: [facility] Work Phone: Start: 12-26-2024 End: 62-14-7854duftmcizypYzqlcwkq Ball DO Work Phone: [facility] Work Phone: Start: 12-24-2024 End: 65-14-3724ykddcmognxSeopqykp Ball DO Work Phone: [facility] Work Phone: Start: 12-24-2024 End: 83-80-4626Evwqdmj encounter procedureBenjamin Ball DO Work Phone: [facility] [place] Work Phone: Start: 12-12-2024 End: 38-14-7846cllxzhygvzNzcldjpbwJoint [facility] Work Phone: Start: 12-12-2024 End: 97-19-2391Oyckebu encounter procedureAt[facility] Health [facility] Phys[facility] GroupNorthern [facility] Work Phone: Start: 25-78-9677Exd-patient / Non-visitFirelbert Physician Group-[facility] Work Phone: Start: 12-10-2024 End: 52-82-7480yybekkjetjIichezpelPremier Health [facility] Work Phone: Start: 12-10-2024 End: 65-44-4674Gnawska encounter procedureAt[facility] Pain [facility] Work Phone: Start: 12-07-2024 End: 56-98-5668xfftcfcnfpDbztdimwiPremier Health [facility] Work Phone: Start: 12-07-2024 End: 18-02-8845Hepmxfi encounter procedureAt[facility] Medical [facility] Work Phone: start: 09-04-2024 End: 04-23-8639rpvbecxhqpOS [facility] Work Phone: [facility] Work Phone: Start: 09-04-2024 End: 26-92-0091Womlvjg encounter procedureDO [facility] Work Phone: [facility] Work Phone: Start: 08-28-2024 End: 14-19-5277mtdgyndbdsEZ [facility] Work Phone: [facility] Work Phone: Start: 08-28-2024 End: 67-05-1846Jcokdoc encounter procedureDO Robert Vail Work Phone: [facility] Work Phone: Start: 70-02-1997Qvo-patient / Non-visitDO Robert Vail Work Phone: [facility]ant[facility] Work Phone: Start: 08-24-2024 End: 54-46-6400xzkcmkzvvvIB Robert Vail Work Phone: [facility] Work Phone: Start: 08-24-2024 End: 72-14-7043Lwdqyhi encounter procedureDO Robert Vail Work Phone: [facility] Work Phone: Start: 24-45-4676Imu-patient / Non-visitDO Robert Vail Work Phone: [facility] Work Phone: Start: 08-10-2024 End: 93-27-5938Xalctpwld to same day surgery centerDO Robert Vail Work Phone: [facility] Work Phone: Start: 08-10-2024 End: 09-94-6820yjutnnxbeqCK Robert Vail Work Phone: [facility] Work Phone: Start: 08-09-2024 End: 32-32-5180Cxqxsdp encounter procedureDO Robert Vail Work Phone: [facility] [place] Work Phone: Start: 08-09-2024 End: 48-05-8782dcghsolnzhGG Robert Vail Work Phone: [facility] Work Phone: Start: 08-06-2024 End: 64-94-2432wpneayitdqAF Robert Vail Work Phone: [facility] Work Phone: Start: 08-06-2024 End: 71-64-2724Ahbrmpm encounter procedureDO Robert Vail Work Phone: [facility] Work Phone: Start: 07-31-2024 End: 25-19-1332ongdfzcjflHH Robert Vail Work Phone: [facility] Work Phone: Start: 07-31-2024 End: 36-05-6974Svsrlnk encounter procedureDO Robert Vail Work Phone: [facility] Work Phone: Start: 06-15-2024 End: 27-60-6438Pbbqyvy encounter procedureDO Robert Vail Work Phone: [facility] [place] Work Phone: Start: 06-15-2024 End: 27-60-6744nsczqpugalAT Robert Vail Work Phone: [facility] Work Phone: Start: 05-28-2024 End: 77-32-1678ywcgctcdqqVI Robert Vail Work Phone: [facility] Work Phone: Start: 05-28-2024 End: 02-26-4186Dwomvul encounter procedureDO Robert Vail Work Phone: [facility] Work Phone: Start: 01-46-9176Mcq-patient / Non-visitDO Robert Vail Work Phone: [facility] Work Phone: Start: 05-10-2024 End: 95-17-2634vibkbrvquiAX Robert Vail Work Phone: [facility] Work Phone: Start: 05-10-2024 End: 00-40-1762Tysfxws encounter procedureDO Robert Vail Work Phone: [facility] Work Phone: Start: 94-04-4816Ocp-patient / Non-visitDO Robert Vail Work Phone: [facility] Work Phone: Start: 05-09-2024 End: 17-78-5829uegwrbvjxiCF Robert Vail Work Phone: [facility] Work Phone: Start: 05-09-2024 End: 49-75-7924Tvhwnvl encounter procedureDO Robert Vail Work Phone: [facility] [place] Work Phone: Start: 05-07-2024 End: 30-80-0534Gkvdqdp encounter procedureDO Robert Vail Work Phone: [facility] [place] Work Phone: Start: 05-07-2024 End: 17-16-7860bmdstxcxgwOL Robert Vail Work Phone: [facility] Work Phone: Start: 04-30-2024 End: 19-86-9321rycsxuuzpmEnvbvyjvm [facility] Work Phone: Start: 04-30-2024 End: 04-50-7781Noaafay encounter procedureFirelberts Physician Group-[facility] Work Phone: Start: 63-92-0878Lds-patient / Non-visitFirelands Physician Group-[facility] Work Phone: Start: 03-29-2024 End: 13-95-0421Rvpgdtf encounter procedureFirelands Physician Group-[facility] Work Phone: Start: 04-04-9354Lkp-patient / Non-visitFirelands Physician Group-[facility] Work Phone: Start: 02-15-2024 End: 34-31-3992bnlvcmharkXA Robert Vail Work Phone: [facility] Work Phone: Start: 02-15-2024 End: 65-66-2548Mjjgxyh encounter procedureDO Robert Vail Work Phone: [facility] Work Phone: Start: 01-12-2024 End: 71-70-7518tcvqjxgmqkVZ Robert Vail Work Phone: [facility] Work Phone: Start: 01-12-2024 End: 61-62-2092Mqxcjaoo ReferredDO Robert Vail Work Phone: [facility] [place] Work Phone: Start: 12-29-2023 End: 58-54-6120ojfvusnyenVzkepdir Ball Other [employer] Other Start: 21-92-2251Sdjlapkiz encounterBenjamin BallFPG [facility] ClinicStart: 12-22-2023 End: 98-26-7818zolpddqxdbJqvcurkg Ball Other [employer] Other Start: 92-45-1352Kpyzxk outpatient visit 25 minutes Robert BallFPG [facility] ClinicStart: 12-09-2023 End: 64-95-6961oyyctgaqryZxbknukm Ball Other [employer] Other Start: 50-00-2655Vdzrhc outpatient visit 15 minutes Robert BallFPG [facility] ClinicStart: 63-15-3008Mzdnwnr encounter procedure DO Robert Vail Work Phone: [facility]-Start: 11-11-2023 End: 56-87-5297wgxqmlzoweJnylyfop Ball Other [employer] Other Start: 63-44-2035Cqjhhsaeo encounterBenjamin BallFPG [facility] ClinicStart: 11-10-2023 End: 70-42-9221qmovbtwkrqPziopuhu Ball Other [employer] Other Start: 36-74-0221Qzmmgwovm encounterBenjamin BallFPG [facility] ClinicStart: 11-04-2023 End: 63-46-4130kgleflqevrWrxisjlk Ball Other [employer] Other Start: 77-20-5952Tavutvyfd encounterBenjamin BallFPG [facility] ClinicStart: 10-19-2023 End: 35-84-8856ppqdkhkqvyMedupeqr Ball Other [employer] Other Start: 93-62-5354Dtgdmtzkw encounterBenjamin BallFPG [facility] ClinicStart: 09-21-2023 End: 21-52-7548ectvqerdbwIcawzfhs Ball Other noWananchi [facility] Other Start: 18-80-0395Gjuaqo outpatient visit 25 minutes Robert BallFPG [facility] ClinicStart: 09-08-2023 End: 02-94-7657otpjeqosuuLrrqdezb Ball Other [facility] Other Start: 47-67-9380Sirqthquw encounterBenjamin BallFPG [facility] ClinicStart: 08-29-2023 End: 47-03-8615qvinlckqxdGtbymktr Ball Other [facility] Other Start: 87-15-5826Eqkgvhpiv encounterBenjamin BallFPG [facility] ClinicStart: 08-16-2023 End: 53-12-0132bazvdepswkFsauilyc Ball Other [employer] Other Start: 32-77-7489Zdfbbefuv encounterBenjamin BallFPG [facility] ClinicStart: 08-15-2023 End: 58-93-1060halwtcrxjyDlvphwqr Ball Other [employer] Other Start: 12-46-5995Eyackwoanhlf care manage srvc 14 day dischargeBenjamin BallFPG [facility] ClinicStart: 07-25-2023 End: 18-99-0188zqpyogizozFjdrolos Ball Other [employer] Other Start: 24-44-0799Ohpsgdttm encounterBenjamin BallFPG [facility] ClinicStart: 07-21-2023 End: 72-12-0373golnmujclmOaaxjoue Ball Other [employer] Other start: 36-70-1472Gjwvejxst encounterBenjamin BallFPG [facility] ClinicStart: 07-19-2023 End: 08-81-8616tesvhanckuWbcabxws Ball Other [employer] Other Start: 51-87-4639Mgbmndhpk encounterBenjamin BallFPG [facility] ClinicStart: 07-11-2023 End: 23-99-8489ngplcjhdcqNpgkqisb Ball Other [employer] Other Start: 03-33-6171Ivueoc outpatient visit 25 minutes Robert BallFPG [facility] ClinicStart: 05-25-2023 End: 89-22-3684vvudadsxptOihiwqyt Ball Other [employer] Other Start: 41-83-6450Ufwhzm outpatient visit 15 minutes Robert BallFPG [facility] ClinicStart: 04-26-2023 End: 16-62-8379amvksfgpplHyjmsbvh Ball Other [employer] Other Start: 51-66-2960Zmfuzjjic encounterBenjamin BallFPG [facility] ClinicStart: 04-08-2023 End: 13-03-3105huyubknzufAotuqmoa Ball Other [employer] Other Start: 09-23-6979Ckhcpu outpatient visit 15 minutes Robert BallFPG [facility] ClinicStart: 04-07-2023 End: 41-03-8481hqcygbvwicGM ROBERT BALLFacility:A9Rojne: 03-23-2023 End: 78-73-6812hggarqbppmNvgtyskd Ball Other [employer] Other Start: 38-36-2534Fjtglu outpatient visit 15 minutes Robert BallFPG [facility] ClinicStart: 03-16-2023 End: 83-62-6147ucvqzlmogjBrciejgc Ball Other [employer] Other Start: 11-03-3712Secnvhnit encounterBenjamin BallFPG [facility] ClinicStart: 03-14-2023 End: 68-46-1606rzdlgegkfnNW ROBERT BALLNort [facility] Other Start: 50-96-1772Qgjsjdaol encounterBenjamin BallFPG [facility] ClinicStart: 03-10-2023 End: 85-31-3885cagdhuthmsKpckfawx Ball Other [employer] Other Start: 65-20-5183Kqnwal outpatient visit 15 minutes Robert BallFPG [facility] ClinicStart: 50-17-2623Uznlsylnd encounterBenjamin BallFPG [facility] ClinicStart: 03-02-2023 End: 58-29-3494nxeipgupamPudnmhbj Ball Other [employer] Other Start: 95-38-3570Zserawe encounter procedureBenjamin BallFPG [facility] ClinicStart: 02-14-2023 End: 74-28-2512gaztngbagzHfzemkbj Ball Other [employer] Other Start: 64-85-6241Kofikj outpatient visit 25 minutes Michael Kenny Pain ManagementStart: 05-30-5444Rrsbwmvbh encounterBenmeagan HNA [facility] ClinicStart: 02-03-2023(PROC) PROCEDURESherif EmelynHca [facility] Surgery CenterStart: 02-03-2023 End: 83-62-6161piiepqsajnDmmzmc Emelyn Other [employer] [facility] Other Start: 01-27-2023 End: 45-55-2015odpgkclvwlLchshj Emelyn Other [employer] [facility] Other Start: 31-25-2721Qospxx-up encounterSherrancho Kenny Pain ManagementStart: 01-19-2023 End: 39-60-0346wgdowkbdbfEfqxoxcr Ball Other [employer] [facility] Other Start: 25-37-2694Ppgrczgcm encounterBenmeagan [facility] Medical ClinicStart: 01-04-2023(PROC) PROCEDURESherrancho DunawayBlack Hills Surgery Center CenterStart: 01-04-2023 End: 34-89-4026llerckhjagIcocce Emelyn Other [employer] [facility] Other Start: 12-31-2022 End: 29-70-2297bqozadjqctRlgftp Emelyn Other [employer] Other Start: 72-93-4686Gdbcnt outpatient visit 25 minutes Michael DunawayJOSELYNG Pain ManagementStart: 12-27-2022 End: 06-66-7812nqnuadwyniBsyjrd Braun Other [employer] Other Start: 97-25-0135Utsqmg outpatient visit 15 minutes Ivon BatistaEMELY [facility] ClinicStart: 12-02-2022 End: 34-57-5215dhkgzwhexiKtdxl Velarde Other [employer] Other Start: 85-99-7261Qtyfkg outpatient visit 15 minutes Ursula HartFPG Pain ManagementStart: 11-18-2022(PROC) PROCEDURESherif [facility] CenterStart: 11-18-2022 End: 00-86-4546hegamexnytYzovbz Emelyn Other [facility] Other Start: 98-04-1184Fwj-procedure evaluation check Robert Ball Other [facility] Other Start: 11-02-2022 End: 27-50-7941riefizxmxsEjbwgh Zaky Other [facility] Other Start: 75-23-4994Kfbppv outpatient visit 25 minutes Michael ZakyFPG Pain ManagementStart: 10-26-2022(Procedure) [facility] CenterStart: 10-26-2022 End: 20-16-3918lcokeuqebuXlfyud Emelyn Other [facility] Other Start: 09-11-2022 End: 48-13-4272bhjqipguwxYjsts Keller Other [facility] Other Start: 13-74-2326Jvctzf outpatient visit 25 minutes Kaitlynn KellerFPG [facility] ClydeStart: 09-10-2022 End: 02-04-3749uwsjgllbjfIbpkcf Emelyn Other [employer] [facility] Other Start: 41-32-5901Rhfujp outpatient visit 15 minutes Michael ZakyFPG Pain ManagementStart: 08-24-2022(Procedure) [facility] CenterStart: 08-24-2022 End: 53-50-9452upistijhuhKuhszd Emelyn Other [employer] [facility] Other Start: 08-03-2022(Procedure) Neville [facility] CenterStart: 08-03-2022 End: 74-27-8944wxmapxxiluBeliom Emelyn Other [facility] Other Start: 07-29-2022 End: 72-96-5221wwztbjkhvlCaynzf Emelyn Other [facility] Other Start: 62-43-1819Yhbjkh outpatient visit 15 minutes Michael ZarudyFPG Pain ManagementStart: 24-63-6608bybieylgjcLP ROBERT VAIL Facility:U8Ymtqh: 07-22-2022(Procedure) [facility]: 07-22[facility]2022 End: 71-34-1882rwlsgmyubvFminuk Emeyln Other [facility] Other Start: 07-06-2022 End: 22-27-7614dcgdhbweqyNZ BENJAMIN BALLcility:J1Ziyye: 07-02-2022 End: 34-13-1121dpsprqilfiBgqkyh Emelyn Other [facility] Other Start: 96-63-8066Rgfymo outpatient visit 25 minutes Michael ZakyFPG Pain ManagementStart: 06-23-2022(Procedure) Neville Dunaway [facility] OutPtStart: 06-23-2022 End: 37-51-4472nltigaihcdYavmwb Emelyn Other [employer] Other Start: 06-23-2022 End: 95-11-3074Sjhfwuvap to same day surgery grand marshDO Robert Vail Work Phone: [facility]Dig[facility] HealthStart: 06-18-2022 End: 36-86-8370kqlflyxjnjWrebia Zaky Other [facility] Other Start: 88-93-0455Kvlnts outpatient visit 25 minutes Michaelrancho Kenny Pain ManagementStart: 05-05-2022 End: 42-87-4316Frsetnl encounter procedureDO Robert Vail Work Phone: [facility]Digest[facility] HealthStart: 04-30-2022 End: 07-53-4664vgsxbgmwxiES ROBERT VAILFacility:L4Vuxoa: 04-13-2022 End: 19-11-4039dpoqavbujcWU ROBERT VAILFacility:E8Huwgz: 04-01-2022 End: 62-10-2885hojsuwvdeqWwrtl Hykes Other [facility] Other Start: 03-35-1018Jnjeafacy encounterDavid HykesFPG GastroenterologyStart: 03-19-2022 End: 30-21-8432sxennshynzSegqzt Zaky Other [facility] Other Start: 51-76-0240Xjzjbintg encounterSherif TatyanaG Pain ManagementStart: 03-11-2022 End: 02-14-0253xmkbhkmcibTibvtj Zaky Other [facility] Other Start: 85-36-2903Jmpnrx outpatient visit 25 minutes Michaelrancho Kenny Pain ManagementStart: 03-04-2022 End: 38-91-8256Jruuiqj encounter procedureMichael R NILL [phone]-UbazhCincinnati [facility] [place] Start: 02-25-2022(Procedure) ShortMichael Sahni [facility]: 02-25-2022 End: 80-00-0205mnxcnidrckXaroyu Zaky Other [facility] Other Start: 02-18-2022 End: 83-96-4314syucghxinbKnmkdw Zaky Other [facility] Other Start: 67-95-4518Njwmci outpatient new 45 minutes Michael EmelynFPG Pain ManagementStart: 01-28-2022 End: 68-46-6424ilqvhrapmnJdgn Batista Other [facility] Other start: 74-56-0039Sijtkb outpatient new 45 minutesDale BraunFPG [facility] NeurosurgeryStart: 05-22-9083Uvbna health examination Robert [employer] Other [facility] Other Start: 11-07-2021 End: 77-16-6697tqarhcawjyFylotn Dymond Other [facility] Other Start: 08-79-6459Nolvcb outpatient new 20 minutes Quiat SimmonsFPG [facility] [place] Procedures DateProcedureProcedure DetailPerforming ClinicianStart: 95-09-5248Yzkoe anesthetic sacral epidural blockBenjamin Ball DO Work Phone: Start: 92-03-5573Plseb anesthetic sacral epidural blockDO Robert Ball Work Phone: Start: 48-79-7503US lumbar spine wo conDO Robert [employer] Work Phone: Start: 65-12-6775Lhszmu X-rayDO Robert [employer] Work Phone: Start: 33-24-3161Qdmwwnxbxqy of sacrococcygeal spineDO [employer] Work Phone: Start: 02-67-5554X-ray of lumbar spine, four viewsDO Robert [employer] Work Phone: Start: 18-99-1078Agvhrga microbial cultureDO Robert Vail Work Phone: Start: 12-17-4602Kijtpgdtf of local anesthetic into sacroiliac jointDO Robert Vail Work Phone: Start: 80-76-8417Hhrwkwo endoscopyDO Robert Vail Work Phone: Start: 52-78-6438Dgoohbmpe for osteoporosisBenmeagan Vail Other Start: 73-03-5457Rtrqvpju extraction and insertion of intraocular lensMichael NILL Start: 69-58-8508Pfqbvuwj extraction and insertion of intraocular lensMichael NILL Comment on above:right eyeStart: 24-25-2275Yirucjnla mammographyBenmeagan Vail Other Start: 85-78-6900G4-L5 lumbar laminectomy, foraminotomy with facetectomy with decompression L5 nerve roots bilaterally 2 Taye NILL Comment on above:see operative report for further detailsStart: 78-96-0056Kjb-surgery evaluationBebarbara Vail Other Start: 39-14-8574Gaooswodnmuc cardiovascular examinationBenmeagan Vail Other Start: 58-90-2534Qjqwatwinksb pulmonary examination Robert Vail Other Start: 79-80-3104EaxmrldoukxXccdtah NILL Start: 10-15-9737LzgbrcakdnsQairmgv NILL Start: 85-00-0687FwtufymgmcSdkyumx NILL Arthroplasty of kneeMichael NILL Comment on above:leftArthroplasty of kneeMichael NILL Comment on above:rightCholecystectomyMichael NILL ChondroplastyMichael NILL CystoscopyMichael NILL Depression screeningBebarbara Vail Other EsophagogastroduodenoscopyMichael NILL insertion of jaspreet filterMichael NILL Lap sigmoid resectionMichael NILL orif right femurMichael NILL Repair of musculotendinous cuff of shoulderMichael NILL right knee arthroscopyMichael NILL Screening for malignant neoplasm of breastBenmeagan Vail Other Plan of Treatment DateCare ActivityDetailAuthorStart: 04-07-2026 End: 59-42-5038Yjmisfb encounter ivazaktwq96/11/2026 11:15 AM EDT Office Visit [facility] [address] [place] [address] Jr. Fernando Silva, DO [address] [place] [address] [facility]ICSStart: 05-09-2025 End: 03-48-1105qbocdkcysn85/12/2025 10:30 AM EDT Treatment [facility] [address] [place] [address] Jacqui Harper PTNOMS CI PTStart: 05-07-2025 End: 54-04-5312hpaftruucz30/10/2025 12:30 PM EDT Treatment [facility] [address] [place] [address] Gabriel Loco PTANOMS CI PTStart: 05-03-2025 End: 90-27-0535hrdcgtupavUIBH CI PTStart: 04-30-2025 End: 25-59-7073qggzjdkmogGBLU CI PTStart: 04-26-2025 End: 45-18-3486xckcolfqqf17/30/2025 9:00 AM EDT Treatment [facility] [address] [facility] [address] [place] [address] Gabriel Loco PTANO CI PTStart: 04-23-2025 End: 65-93-8685kxnlzehbgo11/27/2025 4:30 PM EDT Treatment [facility] [address] [facility] [address] [place] [address] Gabriel Loco PTA Low back pain, unspecified back pain laterality, unspecified chronicity, unspecified whether sciatica present (Primary Dx)[facility] PTComment on above:Low back pain, unspecified back pain laterality, unspecified chronicity, unspecified whether sciatica present (Primary Dx)Start: 04-17-2025 End: 83-06-8327bytrtydvmh08/21/2025 11:00 AM EDT Treatment [facility] [address] [facility] [address] [place] [address] Jacqui Harper PTNO CI PTStart: 04-15-2025 End: 93-87-3893jduuymksvu89/19/2025 9:30 AM EDT Treatment [facility] [address] [facility] [address] [place] [address] Jacqui Harper PTNOMS CI PTStart: 04-11-2025 End: 79-19-0543kagytriblk27/15/2025 9:00 AM EDT Treatment [facility] [address] [facility] [address] [place] [address] Jacqui Harper PTNOMS CI PTStart: 04-08-2025 End: 01-06-6754wjzoqfdyjp66/12/2025 1:00 PM EDT Treatment [facility] [address] [facility] [address] [place] [address] Gabriel Loco PTANOMS CI PTStart: 04-01-2025 End: 70-44-0955ouzcxmtttc23/05/2025 9:30 AM EDT Treatment [facility] [address] [place] [address] Jacqui Harper, PTNOMS CI PTStart: 03-21-2025 End: 65-84-8201gbvlaorwan26/24/2025 8:30 AM EDT Treatment [facility] [address] [place] [address] Jacqui Harper, PTNOMS CI PTStart: 03-14-2025 End: 72-51-1572gwkgecpsaaWSWV CI PTComment on above:ArrivedStart: 02-28-2025 End: 15-19-7671qtmhjcuclqIQQJ CI PTStart: 02-25-2025 End: 89-07-9439qdakzrgzut14/31/2025 12:00 PM EDT Treatment [facility] [address] [facility] [address] [place] [address] Tierney Paz, WIRE COATING OPERATOR METAL [facility] PTStart: 02-20-2025 End: 82-65-5591ynycxnadrl34/26/2025 1:00 PM EDT Treatment [facility] [address] [facility] [address] [place] [address] Tierney Paz, KODAK ArrivedNOMS CI PTComment on above:ArrivedStart: 02-13-2025 End: 33-22-6174hwbvhvwpph22/19/2025 1:00 PM EDT Treatment [facility] [address] [facility] [address] [place] [address] Gabriel Loco PTANOMS CI PTStart: 02-11-2025 End: 43-87-4202jeqbzrtsfj09/17/2025 12:30 PM EDT Treatment [facility] [address] [facility] [address] [place] [address] Amparo Giron PTANOMS CI PTStart: 01-31-2025 End: 35-69-8246ynwtiivbir75/06/2025 12:00 PM EST Treatment [facility] [address] [facility] [address] [place] [address] Gabriel Loco, PTANOMS CI PTStart: 01-28-2025 End: 95-46-2112xojnfeytqa38/03/2025 12:00 PM EST Treatment [facility] [address] [facility] [place] [address] Jacqui Harper PTNOMS CI PTStart: 01-23-2025 End: 75-62-2429vislkntpekNYAX CI PTComment on above:Low back pain, unspecified back pain laterality, unspecified chronicity, unspecified whether sciatica present (Primary Dx)Start: 01-21-2025 End: 50-28-8918pfujxfhkctFAHY CI PTComment on above:ArrivedStart: 01-17-2025 End: 67-29-8879gqhhazwfoqRSAJ CI PTComment on above:ArrivedStart: 01-14-2025 End: 49-00-8345ydsjopzecj46/17/2025 11:00 AM EST Evaluation [facility] [address] [facility] [place] [address] Jacqui Harper, PT ArrivedNOMS CI PTComment on above:ArrivedStart: 27-97-4950YafhwdinqCentervilletart: 15-95-7936DwvhpewuuTrinity Health System East Campus CenterStart: 80-99-9542Dvpimechzdj Wound CultureSuperficial Wound CultureCentervilletart: 89-96-6724DqaarubpcTrinity Health System East Campus Ctr Work Phone: Start: 91-95-7895AmdlnhfvoTrinity Health System East Campus Ctr Work Phone: Start: 79-13-2204Oyrslokeyogj Vaccine: 65+ Years (2 of 2 - PCV)Pneumococcal Vaccine: 65+ Years (2 of 2 - PCV)[facility] HealthcareaPTT in Platelet poor plasma by Coagulation assayFisher-Titus Medical Center Comprehensive metabolic 2000 panel - Serum or PlasmaFisher-Titus Medical CenterComprehensive metabolic 1999 panel - Serum or [facility] Medical CenterMicroalbumin [Mass/volume] in UrineFisher-Titus Medical CenterMR Lumbar spine WO contrastFisher-Titus Medical CenterPatient EducationTrinity Health System East Campus Ctr Work Phone: Patient referralTrinity Health System East Campus Ctr Work Phone: XR Lumbar spine 4 [facility] Pelvis 1 or 2 [facility] Sacrum and Coccyx GE 2 [facility] Immunizations Immunization DateImmunizationNotesCare ZptkpzhhWozztjij10-34-3621qypijnqhe, high dose seasonal, preservative-freeBenjamin Ball DO Work Phone: [facility]09-09-2024influenza, high dose seasonal, preservative-freeDO Robert Vail Work Phone: [facility]09-18-2023influenza, high dose seasonal, preservative-freeBenjamin Ball Other [employer] Other [id number] virus vaccine, unspecified formulationDO Robert Vail Work Phone: [facility]11-16-2022Influenza vaccine, quadrivalent, adjuvantedDO Robert Genna Work Phone: [facility]11-16-2022influenza virus vaccine, split virus (incl. purified surface antigen)Robert Vail Other [employer] Other [id number] virus vaccine, unspecified formulationDO Robert Vail Work Phone: [facility]11-11-2022influenza virus vaccine, unspecified formulationDO Robert Vail Work Phone: [facility]11-11-2022influenza, high dose seasonal, preservative-freeBenmeagan Vail Other [employer] [facility] Other [id number]-41 Vaccine Pfizer - Documentation Purposes OnlyBenmeagan Vail Other [facility]10-06-2021influenza virus vaccine, split virus (incl. purified surface antigen)Robert Vail Other [facility] Other [id number] virus vaccine, unspecified formulationDO Robert Vail Work Phone: [facility]03-17-2021COVID-19 Vaccine Pfizer - Documentation Purposes OnlyBenmeagan Vail Other [facility]02-24-2021COVID-19 Vaccine Pfizer - Documentation Purposes OnlyBenmeagan Vail Other [facility]09-28-2020influenza virus vaccine, split virus (incl. purified surface antigen)Robert Vail Other [facility] Other [id number] virus vaccine, unspecified formulationDO Robert Vail Work Phone: [facility]10-03-2019influenza virus vaccine, split virus (incl. purified surface antigen)Robert Vail Other [facility] Other [id number] virus vaccine, unspecified formulationDO Robert Vail Work Phone: [facility]11-14-2018influenza, injectable, quadrivalent, preservative freeDO Robert Vail Work Phone: [facility]10-22-2018influenza virus vaccine, split virus (incl. purified surface antigen)Robert Vail Other [facility] Other 570772-62-7747oojxhfzcn virus vaccine, unspecified formulationDO Robert Vail Work Phone: [facility]10-22-2018Seasonal trivalent influenza vaccine, adjuvanted, preservative freeDO Robert Vail Work Phone: [facility]09-20-2017influenza virus vaccine, split virus (incl. purified surface antigen)Robert Vail Other [facility] Other [id number] virus vaccine, unspecified formulationDO Robert Vail Work Phone: [facility]09-20-2017influenza, high dose seasonal, preservative-freeDO Robert Vail Work Phone: [facility]09-01-2017 pneumococcal polysaccharide vaccine, 23 valentBenjademetria Vail Other [facility]03-20-2017influenza virus vaccine, split virus (incl. purified surface antigen)Robert Vail Other [facility] Other [id number] virus vaccine, unspecified formulationDO Robert Vail Work Phone: [facility]11-10-2015 pneumococcal conjugate vaccine, 13 valentBenjademetria Vail Other [facility]09-22-2015influenza virus vaccine, split virus (incl. purified surface antigen)Robert Vail Other [facility] Other [id number] virus vaccine, unspecified formulationDO Robert Vail Work Phone: [facility]10-23-2014tetanus and diphtheria toxoids, adsorbed, preservative free, for adult use (5 Lf of tetanus toxoid and 2 Lf of diphtheria toxoid)Robert Vail Other [facility]09-20-2013tetanus and diphtheria toxoids, adsorbed, preservative free, for adult use (5 Lf of tetanus toxoid and 2 Lf of diphtheria toxoid)Robert Vail Other [facility]09-05-2012tetanus and diphtheria toxoids, adsorbed, preservative free, for adult use (5 Lf of tetanus toxoid and 2 Lf of diphtheria toxoid)Robert Vail Other [facility]07-08-2011zoster vaccine, liveDO Robert Vail Work Phone: [facility]08-06-2009 pneumococcal polysaccharide vaccine, 23 valentBenmeagan Vail Other [facility] Payers DatePayer CategoryPayerPolicy [id number] Health Insurance [id number] 2007MedicareMEDICARE Member Subscriber Plan / Payer (Effective 2006-Present) Name: Sandra Tavarez Member ID: [id number] Relation to Subscriber: Self Name: Sandra Tavarez Subscriber ID: [id number] Payer ID: STATE Group ID: Not on file Type: Medicare Address: [facility] [place] [id number] [id number] [id number] [id number] 2.16.840.7.55304[id number] 2.16.840.1.553226.3.57[id number] 2.16.840.1.276271.3.57[id number] 2.16.840.1.651847.3.579.[id number] 2.16.840.1.907054.3.579.[id number] 2.16840.1.915344.3.57[id number] 2.16.840.1.734154.3.57[id number] 2.16.840.1.125786.3.57[id number] 2.16.840.1.084219.3.579.[id number] 2.16.840.1.673697.3.579.2.54235-15-7853Wztomzq05652831 2.16.840.1.668404.3.579.2.973472-02-8653Jaeplpn97560609 2.16.840.1.413428.3.579.2.480034-41-1152Kglcwul32888759 2.16.840.1.349170.3.57[id number] 2.16.840.1.078089.3.579.2.648145-16-1376Mbiwwqy8674321 2.16.840.1.456053.3.579.2.824213-08-2211Torydqg6542589 2.16.840.1.793633.3.579.2.332561-96-5492Gfpeenw4178298 2.16.840.1.923955.3.579.2.462656-47-8099Ciyvzer0832216 2.16.840.1.487573.3.579.2.184280-51-6126Wilzygb2389180 2.16.840.1.524126.3.579.2.879434-46-5899Gfdiepp2390706 2.16.840.1.406152.3.579.2.159289-82-0686Wvnesno7774615 2.16.840.1.213526.3.579.[id number] 2.16.840.1.124792.3.579.2.951300-16-3881Ppcoazp3968416 2.16.840.1.243807.3.579.2.821895-28-7548Hrrqwhq6528828 2.16.840.1.635571.3.579.2.277887-31-9516Mycozjf4951935 2.16.840.1.640612.3.579.2.887157-70-2649Tktznab3005188 2.16.840.1.058983.3.579.2.281501-14-2983Lpcioei4316950 2.16.840.1.440305.3.579.2.739552-75-7570Qtjbbay5110701 2.16.840.1.998932.3.579.2.374172-02-5920Xlsagzl0393379 2.16.840.1.251479.3.579.2.853539-09-4857Ynfqmmn7547445 2..840.1.319226.3.579.2.847539-15-2198Ggcvvrk2039054 2.16.840.1.759796.3.579.2.638938-98-4204Kjpvyhb5169106 2..840.1.323421.3.579.2.502268-44-5867Uluydvi6219332 2.16.840.1.674168.3.579.2.3192Ggeuqtc67857173 2.16.840.1.039717.3.579.2.531 Gvavtmn24851537 2.16.840.1.677314.3.579.2.757Ijksaqi93994770 2..840.1.911472.3.579.2.262Evhgmey83177647 2.16.840.1.957700.3.579.2.531 Najmcmw16505358 2.16.840.1.439094.3.579.2.757Xtskkuu99016601 2.16.840.1.198844.3.579.2.796Ntukqtn78846036 2.16.840.1.591973.3.579.2.531 Sdmvsdz36216243 2.16840.1.015120.3.579.2.531 Social History DateTypeDetailFacilityStart: 03-04-2022 End: 62-12-5957Gjvtecd smoking statusEx-smoker (finding)[facility] Other Tobacco smoking statusNeverCincinnati Children'S [facility] [place] Start: 54-07-4620Kvs Assigned At BirthFePhysicians [facility] Other Start: 03-24-2022 End: 28-81-4637Vthhjyz smoking status NHISNever smoked tobacco (finding) Centervilletart: 95-03-9638Bhw Assigned At BirthFemalBerger Hospitaltart: 12-07-2024 End: 21-17-3841BcrPkbmpq (finding)[facility] CenterHistory of tobacco useCurrent smokerNOMS HealthcareHistory of tobacco useCigarette Smoker [facility] HealthcareStart: 54-19-0217Jzeaejn use and exposureSmokeless tobacco non-userNOMS HealthcareStart: 34-13-9153Iebqpluwu beverage intakeEx-drinker (finding)[facility] HealthcareStart: 92-52-0375Hakdkru of Social functionNOMS HealthcareStart: 94-72-6415Cjj assigned at birthNot on [facility] Medical Equipment Procedure CodeEquipment CodeEquipment Original TextEquipment IdentifierDates Capsule endoscopy, for patency of lumen evaluationVideo capsule endoscopy system ()[id number] FDAStart: 05-05-2022 Goals DatePatient GoalDesired Activity/State Clinical Notes 11-07-2021 to 08-12-2025 Note Date & HmwvElsgWaicbwqz54-83-0952 Evaluation note* Diagnosis Onset Date Resolution Status Admit Date Anticoagulant long-term use acuteSeptember 2024 10:31amGeneralized seizure disorderacuteSeptember 2024 10:31amHypercholesteremiaacuteSeptember 2024 10:31am HypertensionacuteSeptember 2024 10:31amObesityacuteSeptember 2024 10:31amOSA (obstructive sleep apnea)acuteSeptember 2024 10:31am ThrombophiliaacuteSeptember 2024 10:31amType 2 diabetes mellitus with hyperglycemiaacuteSeptember 2024 10:31amVenous hypertension, chronic, with ulceracuteSeptember 2024 10:31amAnticoagulant long-term useacuteOctober 2024 12:00pmOther chronic painacuteOctober 2024 12:00pmPost laminectomy syndromeacuteOctober 2024 12:00pmSacroiliitisacuteOctober 2024 12:00pm [facility] Work Phone: 1(183) 920-666206-19-2025 Evaluation note* Diagnosis Onset Date Resolution Status [...] 10:31amThrombophiliaacuteSeptember 2024 10:31amType 2 diabetes mellitus with hyperglycemiaacuteSeptember 2024 10:31am [facility] Work Phone: 1(557) 749-517706-12-2025 History of Present illness Narrative* Jacqui Harper, [...] instructed in home exercise program. - met Sock Folder Goals: To be met in 10 weeks [...] - met Discharge PT documented in this encounterSaint John's [facility] Community HospitalWragekkdfm62-68-2000 History of Present illness Narrative* Jacqui Harper [...] instructed in home exercise program. - met Nursing Home Goals: To be met in 10 weeks [...] Please sign below. Date: documented in this encounterSaint John's [facility] Community HospitalAohqcphlju80-96-0227 History of Present illness Narrative* Jacqui Harper, [...] instructed in home exercise program. - met Sock Folder Goals: To be met in 10 weeks [...] Please sign below. Date: documented in this encounterSaint John's Aurora Community HospitalPiktsgrchk18-69-4651 History of Present illness Narrative* Jacqui Harper, [...] instructed in home exercise program. - met Sock Folder Goals: To be met in 10 weeks [...] Please sign below. Date: documented in this encounterSaint John's Aurora Community HospitalZwovwntzad10-16-6269 History of Present illness Narrative* Jacqui Harper [...] instructed in home exercise program. - met Nursing Home Goals: To be met in 10 weeks [...] Please sign below. Date: documented in this encounterSaint John's Aurora Community HospitalFjdgdttkmc75-33-4445 History of Present illness Narrative* Jacqui Harper [...] instructed in home exercise program. - met Nursing Home Goals: To be met in 10 weeks [...] Please sign below. Date: documented in this [facility]04-23-2025 Evaluation note* Diagnosis Onset Date [...] 2024 11:39amCellulitisacuteJuly 2024 11:24amSkin tearacuteJuly 2024 11:24am [facility] Work Phone: 1(853) 190-805504-23-2025 Evaluation note* Diagnosis Onset Date Resolution Status [...] venous insufficiencyacuteJuly 2024 1:46pmSkin tearacuteJuly 2024 1:46pm [facility] Work Phone: 1(207) 454-721304-17-2025 History of Present illness Narrative* Jacqui Harper, [...] instructed in home exercise program. - met Sock Folder Goals: To be met in 10 weeks [...] Please sign below. Date: documented in this encounterSaint John's [facility] Community HospitalBinrdbosae51-22-7756 History of Present illness Narrative* Jacqui Harper PT - 02/28/2025 12:30 PM EDT Physical [...] instructed in home exercise program. - met Sock Folder Goals: To be met in 10 weeks [...] Please sign below. Date: documented in this encounterSaint John's [facility] Community HospitalOuqwtklxyy89-33-8277 NoteGeneral Surgery Office/Clinic Note Chief Complaint consultation [...] require lift technique; patient requests referral to [facility]; call with problems/questions. Ordered: [facility] Internal Ambulatory Referral Follow-up No qualifying data [...] Sister. Hypertension: Father, Siste (more content not included)...[facility] County Medical CenterComment on above:Result Comment: Electronically Signed By: GEORGE JENNINGS, Taye Ellington\Date and Time Signed: 02/26/25 13:52 [id number] Evaluation note * Diagnosis Onset Date Resolution [...] 11:46amOther chronic painacuteJune 2024 11:46amSacroiliitisacuteJune 2024 11:46am [facility] Work Phone: 1(640) 173-114403-03-2025 Telephone encounter Note* Telephone Encounter - Jenna Servin - 01/28/2025 8:25 AM EST She called noting up all last night not feeling well and no better this morning; she cx her 12:00 PT. I reminded and she said she will try to make her 3/6 PT; if unable she will contact jennifer. [facility] [id number] Miscellaneous Notes* Telephone Encounter - Jenna Servin - 01/28/2025 8:25 AM EST She called noting up all last night not feeling well and no better this morning; she cx her 12:00 PT. I reminded and she said she will try to make her 3/6 PT; if unable she will contact jennifer. documented in this encounterSaint [facility]'s [facility] [id number] History of Present illness Narrative* Jacqui Leroy, PT - 01/23/2025 1:00 PM EST Images [...] Left low back is hurting more today. [place] good after last session but pain returned. [...] as needed. Manual lumbar distraction supine with russian ball. Therapeutic Exercise: (31 minutes) Strength, Endurance, [...] to be instructed in home exercise program. Nursing Home Goals: To be met in 10 weeks [...] Please sign below. Date: documented in this [facility]02-19-2025 Evaluation note* Diagnosis Onset Date Resolution Status [...] 10:24amMedicare annual wellness visit, subsequentnoneactiveMay 2024 10:24am [facility] Work Phone: 1(393) 243-518802-17-2025 History of Present illness Narrative* Jacqui Harper, [...] to be instructed in home exercise program. [employer] Goals: To be met in 10 weeks [...] Please sign below. Date: documented in this encounterSaint John's [facility] Community [id number] Evaluation note* Diagnosis Onset Date Resolution Status [...] 1:27pmPost laminectomy syndromeacuteApril 2024 1:27pmSacroiliitisacuteApril 2024 1:27pm [facility] Work Phone: 1(195) 156-704001-29-2025 [place] [address] Pain Management Procedure Note Signed Patient: Sandra Tavarez MR#: [id number] : 1940 Acct:[id number] Age/Sex: 84 / F Adm Date: 5 Loc: Room: Type: [facility] Attending Dr: Michael Dunaway MD [...] MD 12/26/24 1119 Signed By: 12/26/24 1206 [facility]01-15-2025 Evaluation note* Diagnosis Onset Date [...] laminectomy syndrome acuteApril 2024 10:33amSacroiliitisacuteApril 2024 10:33am [facility] Work Phone: 1(399) 369-765001-10-2025 Evaluation note* Diagnosis Onset Date Resolution Status Admit Date Generalized seizure disorder acuteJanuary 2024 10:20amHypercholesteremiaacuteJanuary 2024 10:20am HypertensionacuteJanuary 2024 10:20amIron deficiency anemiaacuteJanuary 2024 10:20amLumbar spondylosisacuteJanuary 2024 10:20amOSA (obstructive sleep apnea)acuteJanuary 2024 10:20amThrombophiliaacute December 07, 2024 10:20amType 2 diabetes mellitus with hyperglycemiaacute December 07, 2024 10:20amChronic painacuteJanuary 2024 1:37pmEncounter for monitoring Coumadin therapyacuteJanuary 2024 1:37pmLumbosacral spondylosisacuteJanuary 2024 1:37pmPost laminectomy syndromeacuteJanuary 2024 1:37pmSacroiliitisacuteJanuary 2024 1:37pm [facility] Work Phone: 1(162) 709-251201-10-2025 Evaluation note* Diagnosis Onset Date Resolution Status [...] 1:39pmLaceration of leg excluding thighacuteJanuary 2024 1:39pm [facility] Work Phone: 1(602) 879-832601-10-2025 Evaluation note* Diagnosis Onset Date Resolution Status [...] laminectomy syndromeacuteFebruary 2024 12:55pm SacroiliitisacuteFebruary 2024 12:55pm [facility] Work Phone: 1(729) 442-312901-10-2025 Evaluation note* Diagnosis Onset Date Resolution Status [...] laminectomy syndrome acuteApril 2024 10:33amSacroiliitisacuteApril 2024 10:33am [facility] Work Phone: 1(889) 568-381009-13-2024 [facility] Evaluation note* Encounter Date Diagnosis [...] the patient reduces t he risk for WA, CVA, HTN, cardiac dysrhythmias and sudden cardiac [...] the risk for cerebrovascular and cardiovascular disease. [facility] Other 01-12-2024 Evaluation note* Encounter Date Diagnosis [...] virus infection (ICD-10 - Z20.822)Order sent to [facility], results negative for COVID infection. [facility] Other 12-14-2023 Evaluation note* Encounter Date Diagnosis Assessment Notes Treatment Notes Treatment Clinical Notes Oct, Acute cough (ICD-10 - R05.1) [facility] Other 10-25-2023 Evaluation note* Encounter Date Diagnosis [...] clinic for additionaltreatment Discussed compression, pumps etc [facility] Other 10-12-2023 Evaluation note* Encounter Date Diagnosis Assessment Notes Treatment Notes Treatment Clinical Notes Aug, Lumbar spondylosis (ICD-10 - M47 .816) [facility] Other 10-02-2023 Evaluation note* Encounter Date Diagnosis Assessment Notes Treatment Notes Treatment Clinical Notes Aug, Pain of right lower extremity (I CD-10 - M79.604) [facility] Other 09-18-2023 Evaluation note* Encounter Date Diagnosis [...] of right lower extremity (ICD-10 - M79.604) [facility] Other 08-22-2023 Evaluation note* Encounter Date Diagnosis Assessment Notes Treatment Notes Treatment Clinical Notes Jun, Dysuria (ICD-10 - R30.0) [facility] Other 08-14-2023 Evaluation note* Encounter Date Diagnosis [...] use, the patient reduces the risk for WA, CVA, HTN, cardiac dysrhythmias and sudden cardiac [...] or drinking prior to bedtime. Weight loss. [facility] Other 06-28-2023 Evaluation note* Encounter Date Diagnosis [...] supplied to the patient after her assessment [facility] Other 05-30-2023 Evaluation note* Encounter Date Diagnosis Assessment Notes Treatment Notes Treatment Clinical Notes March, Cellulitis of right lower extrem ity (ICD-10 - L03.115) [facility] Other 05-12-2023 Evaluation note* Encounter Date Diagnosis Assessment Notes Treatment Notes Treatment Clinical Notes March, Cellulitis of right lower extrem ity (ICD-10 - L03.115) Elevate and use warm compresses. March,hronic venous insufficiency (ICD-10 - I87.2)Avoid salt and elevate lower extremities, support stockings, inspect legs and feet daily for blisters and ulcerations. March,Hypercoagulable state (ICD-10 - D68.59)Not able to use NSAIDs [facility] Other 04-26-2023 Evaluation note* Encounter Date Diagnosis [...] normal BMI. Feb,Hypercoagulable state (ICD-10 - D68.59)Finish Avivajerardo and refer to med management clinic in [facility] Other 04-19-2023 Evaluation note* Encounter Date Diagnosis Assessment Notes Treatment Notes Treatment Clinical Notes Feb, Generalized seizure disorder (IC D-10 - G40.309) [facility] Other 04-17-2023 NotePROCEDURE: XR CHEST 2 V [...] Electronically authenticated by: CELINA JONES Date: 2023-03-14 15:11[facility]04-17-2023 Evaluation note* Encounter Date Diagnosis Assessment Notes Treatment Notes Treatment Clinical Notes Feb, Simple chronic bronchitis (ICD-1 0 - J41.0) [facility] Other 04-13-2023 Evaluation note* Encounter Date Diagnosis Assessment Notes Treatment Notes Treatment Clinical Notes Feb, Acute bronchitis due to other sp ecified organisms (ICD-10 - J20.8) Instructed to use Robitussin or Mucinex for cough, saline or Flonase NS for congestion, Tylenol forpain and fever. Feb,Seasonal allergic rhinitis due to pollen (ICD-10 - J30.1) [facility] Other 04-05-2023 Evaluation note* Encounter Date Diagnosis [...] use, the patient reduces the risk for WA, CVA, HTN, cardiac dysrhythmias and sudden cardiac [...] mammogram for breast cancer (ICD-10 - Z12.31) [facility] Other 03-20-2023 Evaluation note* Encounter Date Diagnosis [...] offered to prescribe a low dose of [place], she states she does not want to be on opioid pain medications. She can follow up in 3 months or as needed. Jan,hronic pain (ICD-10 - G89.29) Follow up as needed [facility] Other 03-02-2023 Evaluation note* Encounter Date Diagnosis [...] explained to patient; patient verbalizes understanding. Jan, 3Chronic pain (ICD-10 - G89.29) Follow up after procedure. [facility] Other 02-03-2023 Evaluation note* Encounter Date Diagnosis [...] Patient denies any sacral pain today. Dec, hronic pain (ICD-10 - G89.29) Follow up after procedure. [facility] Other 01-30-2023 Evaluation note* Encounter Date Diagnosis Assessment Notes Treatment Notes Treatment Clinical Notes Nov, Erysipelas (ICD-10 - A46) Start w antibiotic, take entire course. Call if no improvement for other prescription or dermatology referral. Nov,Systemic viral illness (ICD-10 - B34.9)Chills and nausea has resolved Continue to monitor symptoms [facility] Other 01-05-2023 Evaluation note* Encounter Date Diagnosis [...] - G89.29) Follow up in 4 weeks. [facility] Other 12-06-2022 Evaluation note* Encounter Date Diagnosis [...] for three days prior to each procedure [facility] Other 10-15-2022 Evaluation note* Encounter Date Diagnosis [...] treatment plan. Patient left in stable condition [facility] Other 10-14-2022 Evaluation note* Encounter Date Diagnosis [...] - G89.29) Follow up in 4 weeks. [facility] Other 09-01-2022 Evaluation note* Encounter Date Diagnosis [...] Eliquis for 3 days prior to procedure [facility] Other 08-05-2022 Evaluation note* Encounter Date Diagnosis [...] Eliquis for 3 days prior to procedure [facility] Other 07-27-2022 [facility] note* Encounter Date Diagnosis [...] a RFA if applicable under fluoroscopic guidance. May,2Chronic pain (ICD-10 - G89.29) Continue with current treatment plan May,nticoagulant long-term use (ICD-10 - Z79.01) Patient is aware to hold Eliquis for 3 days prior to procedure [facility] Other 04-14-2022 Evaluation note* Encounter Date Diagnosis [...] medial branch nerve blocks in the future. [facility] Other 03-24-2022 Evaluation note* Encounter Date Diagnosis [...] She reports prior surgerywith Dr. Rivers at [facility] 8 years ago. She also reports prior [...] negative findings were considered in medical decision-making. [facility] Other 03-03-2022 Evaluation note* Encounter Date Diagnosis [...] Jan,symptomatic age-related postmenopausal state (ICD-10 - Z78.0) [facility] Other 2021 Evaluation note* Encounter Date Diagnosis [...] no improvement in 2 to 3 days [facility] Other Evaluation + Plan note No data available for this section [facility] General Surgery [place] Evaluation noteNo InformationNortLifecare Hospital [facility] Other Evaluation noteNo assessment information available [facility] Work Phone: Evaluation note* Diagnosis Onset Date Resolution Status Chronic venous insufficiency acuteHypertensionacuteLumbar spondylosisacuteThrombophiliaacute [facility] Work Phone: Evaluation note* Diagnosis Onset Date Resolution Status Chronic venous insufficiency acuteThrombophiliaacuteNonhealing surgical woundnoneactiveGeneralized seizure disorderacuteHypercholesteremiaacuteHypertensionacuteLumbar spondylosisacuteOSA (obstructive sleep apnea)acuteThrombophiliaacuteType 2 diabetes mellitus with hyperglycemiaacuteMedicare annual wellness visit, subsequentnoneactive Anticoagulant long-term useacuteArthritis of sacroiliac jointacuteChronic pain acuteIschial bursitisacuteLumbosacral spondylosisacute [facility] Work Phone: Evaluation note* Diagnosis Onset Date Resolution Status Generalized seizure disorder acuteHypercholesteremiaacuteHypertensionacuteLumbar spondylosisacuteOSA (obstructive sleep apnea)acuteThrombophiliaacuteType 2 diabetes mellitus with hyperglycemiaacuteMedicare annual wellness visit, subsequentnoneactive Anticoagulant long-term useacuteArthritis of sacroiliac jointacuteChronic pain acuteIschial bursitisacuteLumbosacral spondylosisacute [facility] Work Phone: Evaluation note* Diagnosis Onset Date Resolution Status Generalized seizure disorder acuteHypercholesteremiaacuteHypertensionacuteLumbar spondylosisacuteOSA (obstructive sleep apnea)acuteThrombophiliaacuteType 2 diabetes mellitus with hyperglycemiaacuteMedicare annual wellness visit, subsequentnoneactive Anticoagulant long-term useacuteArthritis of sacroiliac jointacuteChronic pain acuteIschial bursitisacuteLumbosacral spondylosisacuteIschial bursitisacute Lumbosacral spondylosisacutePost laminectomy syndromeacute [facility] Work Phone: Evaluation note* Diagnosis Onset Date Resolution Status Ischial bursitis acuteLumbosacral spondylosisacutePost laminectomy syndromeacuteAnticoagulant long-term useacuteChronic painacuteLumbosacral spondylosisacutePost laminectomy syndromeacute [facility] Work Phone: evaluation note* Diagnosis Onset Date Resolution Status Ischial bursitis acuteLumbosacral spondylosisacutePost laminectomy syndromeacuteAnticoagulant long-term useacuteChronic painacuteLumbosacral spondylosisacutePost laminectomy syndromeacuteGeneralized seizure disorderacuteHypercholesteremiaacute HypertensionacuteLumbar spondylosisacuteOSA (obstructive sleep apnea)acute ThrombophiliaacuteType 2 diabetes mellitus with hyperglycemiaacute [facility] Work Phone: Evaluation note* Diagnosis Onset Date Resolution Status Ischial bursitis acuteLumbosacral spondylosisacutePost laminectomy syndromeacuteAnticoagulant long-term useacuteChronic painacuteLumbosacral spondylosisacutePost laminectomy syndromeacuteGeneralized seizure disorderacuteHypercholesteremiaacute HypertensionacuteLumbar spondylosisacuteOSA (obstructive sleep apnea)acute ThrombophiliaacuteType 2 diabetes mellitus with hyperglycemiaacuteAnticoagulant long-term useacuteChronic painacuteLumbosacral spondylosisacutePost laminectomy syndromeacuteSacroiliitisacute [facility] Work Phone: Evaluation note* Diagnosis Onset Date Resolution Status Anticoagulant long-term use acuteChronic painacuteLumbosacral spondylosisacutePost laminectomy syndromeacute Generalized seizure disorderacuteHypercholesteremiaacuteHypertensionacuteLumbar spondylosisacuteOSA (obstructive sleep apnea)acuteThrombophiliaacuteType 2 diabetes mellitus with hyperglycemiaacuteAnticoagulant long-term useacuteChronic painacuteLumbosacral spondylosisacutePost laminectomy syndromeacuteSacroiliitis acute [facility] Work Phone: Evaluation note* Diagnosis Onset Date Resolution Status Anticoagulant long-term use acuteChronic painacuteLumbosacral spondylosisacutePost laminectomy syndromeacute Generalized seizure disorderacuteHypercholesteremiaacuteHypertensionacuteLumbar spondylosisacuteOSA (obstructive sleep apnea)acuteThrombophiliaacuteType 2 diabetes mellitus with hyperglycemiaacuteAnticoagulant long-term useacuteChronic painacuteLumbosacral spondylosisacutePost laminectomy syndromeacuteSacroiliitis acuteChronic painacuteLumbosacral spondylosisacutePost laminectomy syndromeacute Sacroiliitisacute [facility] Work Phone: Evaluation note* Diagnosis Onset Date Resolution Status Admit Date Generalized seizure disorder acuteJanuary 2024 10:20amHypercholesteremiaacuteJanuary 2024 10:20am HypertensionacuteJanuary 2024 10:20amIron deficiency anemiaacuteJanuary 2024 10:20amLumbar spondylosisacuteJanuary 2024 10:20amOSA (obstructive sleep apnea)acuteJanuary 2024 10:20amThrombophiliaacute December 07, 2024 10:20amType 2 diabetes mellitus with hyperglycemiaacute December 07, 2024 10:20am [facility] Work Phone: Evaluation note* Diagnosis Low [...] Historyrotator cup repairSurgical Historyrt knee arthosopy,chondroplastySurgical HistorycolonoscopySurgical HistoryEGD-2005Surgical HistoryRT TKASurgical History CystoscopySurgical Historylao sigmoid resectionSurgical Historycholecystectomy Surgical HistoryIVC filterSurgical Historyknee replacement leftSurgical History fracture repair right femurHospitalization Historysee above [facility] Other History general Narrative - Reported* Type Description Date Medical History astma Medical HistoryOsteoporosisMedical HistoryHTN (hypertension)Medical History HypercholesteremiaSurgical HistoryBL/CTRSurgical HistorycraniotomySurgical Historyrotator cup repairSurgical Historyrt knee arthosopy,chondroplastySurgical HistoryColonoscopyurgical HistoryEGD-2004Surgical HistoryRT TKASurgical HistoryCystoscopySurgical Historylao sigmoid resectionSurgical History cholecystectomySurgical HistoryIVC filterSurgical Historyknee replacement left Surgical Historyfracture repair right femurHospitalization Historysee above [facility] Other Hospital Discharge instructions No data available for this section [facility] General Surgery [place] Reason for referral (narrative)* Reason Referral for lower e xtremity ulceration Diagnosis 1 Ulcer associated wit h varicose vein, with infection (I83.209) Referral Organization [facility] Genna cano Referring Provider First Name Robert Referring Provider Last Name Genna Referring Provider Specialty Internal Me dicine Referred Organization [facility] Referred Address [address] [place], [place],[address] Referred Provider Specialty Wound Care Referral Priority Routine General Notes Mrs. Tavarez has chroni c venous insufficiency and suffered a contusion injury to her RLE, which resulted in a nonhealing ulceration. It was sutured by the ER but didn't result in wound closure. She is being referred for debridement and bandaging. She was empirically placed on Mupirocin and Cephalexin. [facility] Other Reason for referral (narrative)No reason for referral information availableCrystal Clinic Orth[facility] Center Work Phone: Reason for visit NarrativeReferral Dr. Conley Lumbar RadiculopathyNGarnet Health [facility] Other reason for visit Narrative* Rehabilitation - Outpatient (Routine) - AuthorizedSpecialtyDiagnoses / ProceduresReferred By ContactReferred To ContactPhysical Therapy Diagnoses Low back pain, unspecified Proximal Leg Pain Procedures MT PHYSICAL THERAPY EVALUATION LOW COMPLEX 20 MINS MT OFFICE/OUTPATIENT NEW HIGH MDM 60 MINUTES Robert Vail MD [address] [place] [address] Phone: tel: fax: [facility] [address] [address] Phone: tel: fax: Referral IDStatusReasonStart DateExpiration DateVisits RequestedVisits [id number]/14/20258/13/20252020 [facility] HealthcareReason for visit Narrative* Rehabilitation - Outpatient (Routine) - AuthorizedSpecialtyDiagnoses / ProceduresReferred By ContactReferred To ContactPhysical Therapy Diagnoses Low back pain, unspecified Proximal Leg Pain Procedures MT PHYSICAL THERAPY EVALUATION LOW COMPLEX 20 MINS MT OFFICE/OUTPATIENT NEW [facility] MDM 60 MINUTES Robert Vail MD [address] [place] [address] Phone: tel: fax: [facility] [address] [address] Phone: tel: fax: Referral IDStatusReasonStart DateExpiration DateVisits RequestedVisits [id number]/14/202512/31/20252030 [facility] HealthcareReason for visit Narrative* Rehabilitation - Outpatient (Routine) - AuthorizedSpecialtyDiagnoses / ProceduresReferred By ContactReferred To ContactPhysical Therapy Diagnoses Low back pain, unspecified Proximal Leg Pain Procedures MT PHYSICAL THERAPY EVALUATION LOW COMPLEX 20 MINS MT OFFICE/OUTPATIENT NEW HIGH MDM 60 MINUTES Robert Vail MD Phone: tel: fax: [facility] [address] [address] Phone: tel: fax: Referral IDStatusReasonStart DateExpiration DateVisits RequestedVisits [id number]/14/202512/31/20252030 [facility] HealthcareReason for visit Narrative* Rehabilitation - Outpatient (Routine) - AuthorizedSpecialtyDiagnoses / ProceduresReferred By ContactReferred To ContactPhysical Therapy Diagnoses Low back pain, unspecified Proximal Leg Pain Procedures MT PHYSICAL THERAPY EVALUATION LOW COMPLEX 20 MINS MT OFFICE/OUTPATIENT NEW HIGH MDM 60 MINUTES Robert Vail MD Phone: tel: fax: [facility] [address] [address] Phone: tel: fax: Referral IDStatusReasonStart DateExpiration DateVisits RequestedVisits [id number]/14/202512/31/20252030 [facility] HealthcareReason for visit Narrative* Rehabilitation - Outpatient (Routine) - AuthorizedSpecialtyDiagnoses / ProceduresReferred By ContactReferred To ContactPhysical Therapy Diagnoses Low back pain, unspecified Proximal Leg Pain Procedures MT PHYSICAL THERAPY EVALUATION LOW COMPLEX 20 MINS MT OFFICE/OUTPATIENT NEW HIGH MDM 60 MINUTES Robert Vail DO Phone: tel: fax: [facility] [address] [address] Phone: tel: fax: Referral IDStatusReasonStart DateExpiration DateVisits RequestedVisits [id number]/14/202512/31/20252030 [facility] HealthcareReason for visit Narrative* Rehabilitation - Outpatient (Routine) - ClosedSpecialtyDiagnoses / ProceduresReferred By ContactReferred To Contact Physical Therapy Diagnoses Low back pain, unspecified Proximal Leg Pain Procedures MT PHYSICAL THERAPY EVALUATION LOW COMPLEX 20 MINS MT OFFICE/OUTPATIENT NEW HIGH MDM 60 MINUTES Robert Vail DO Phone: tel: fax: [facility] [address] [address] Phone: tel: fax: Referral IDStatusReasonStart DateExpiration DateVisits RequestedVisits [id number]/14/202512/31/20252030 [facility] Summary Purpose Family History Relationship Condition Age at Onset Recorded Date/T mg Not Specified Cerebrovascular accident (CVA) Unknown Heart diseaseUnknown Relationship Condition Age at Onset Recorded Date/T gm Not Specified Cerebrovascular accident (CVA) Unknown Heart [...] No March 20 1:53pm Hospital Course Note [facility] Clinical Discharge Summary PERSON INFORMATION Name SANDRA TAVAREZ Age 79 Years 1940 Sex FEMALE Language Romansh PCP Robert Vail Marital Status Med Service Med/Surg Acct# Arrival 05/23/2020 09:44:18 Visit Reason SURGERY - LEFT TOTAL KNEE Acuity LOS Address: [address] [place] [address] Comment: PROVIDER INFORMATION VITALS INFORMATION Vital Sign [...] whether neurogenic claudication present (M48.061) Referral Organization [facility] Ne urosurgery Referring Provider First Name Usama Referring Provider Last Name Eusebio Referring Provider Specialty Neurologica l Surgery Referred Organization [facility] Pain Managemen t Referred Provider Michael Dunaway Referred Address [address],[place] [address] ,[place], [place],[address] Referred Provider Specialty Pain Medicin e Referral Priority Routine General Notes Fore, Pmaela M 022 10:55:11 AM >Received today and [...] pain Ischial bursitis Lumbosacral spondylosis Chief Complaint [facility] INCREASED BUTTOCK PAIN Z79.01 M47.817 [...] Lumbosacral spondylosis Post laminectomy syndrome Chief Complaint [facility] INCREASED BUTTOCK PAIN Z79.01 M47.817 [...] leg excluding thigh Novuar y 2024 1:39pm Cellulitis January 04, 2025 [...] L4, L5 March 28, 2025 10:14am [facility] Well[facility] - HIGH RISK April 09, [...] L4, L5 March 28, 2025 10:14am [facility] - HIGH RISK April 09, 2025 10:24am 2 week follow up after RFA April 15 1:48pm follow up after lumbar RFA May 06 11:46am right leg wound May 06, 2025 1:20p m Chief Complaint Admit Date f/u after kristofer lumbar MBB March 20 1:27pm Coumadin kristofer lumbar facet RFA L3, L4, L5 March 28, 2025 10:14am [facility] Well[facility] - HIGH RISK April 09, [...] L4, L5 March 28, 2025 10:14am [facility] Well[facility] - HIGH RISK April 09, [...] 10:31am Type 2 diabetes mellitus with hyperglyce [facility] August 12, 2025 10:31am Chief Complaint Admit Date 4 month f/u August 12, 2025 10:31am siatic pain September 23, 2025 1 2:00pm Reason for Visit Admit Date Anticoagulant long-term use August 122024 10:31am Generalized seizure disorder July 292024 10:31am Hypercholesteremia August 12, 2025 10:31am Hypertension August 12, 2025 10:31am Obesity August 12, 2025 10:31am KERMIT (obstructive sleep apnea) August 12, 2025 10:31am Thrombophilia August 12, 2025 10:31am Type 2 diabetes mellitus with hyperglyce [facility] August 12, 2025 10:31am Venous hypertension, chronic, with ulcer August 12, 2025 10:31am Anticoagulant long-term use August 12:00pm Other chronic pain September 23, 2025 1 2:00pm Post laminectomy syndrome September 23, 2025 12:00pm Sacroiliitis September 23, 2025 1 2:00pm Additional Source Comments INFORMATION SOURCE (unrecogn ized section and content) DATE CREATED AUTHOR 08/15/2020 [facility] DATE CREATED AUTHOR AUTHOR'S ORGANIZ ATION 04/11/2023 [facility] DATE CREATED AUTHOR AUTHOR'S ORGANIZ ATION 01/08/2025 [facility] DATE CREATED AUTHOR AUTHOR'S ORGANIZ ATION 04/12/2025 [facility] DATE CREATED AUTHOR AUTHOR'S ORGANIZ ATION 05/12/2025 [facility] EPIC REASON FOR VISIT (unrecogniz ed section and content) ReasonOnset DateCommentsCx PT 01/28/2503 month Follow upHEAD COLD, TIREDLab resultstemp [id number] results1 month Follow upTBHMedication Qu estionmessage4 month/suture [...] COUMADIN CAUDAL EPIDURAL W/RACZREF BY DR USAMA BATISAT FOR SPINAL STENOSIS OF LUMBAR Care Teams (unrecognized sec tion and content) Team Status: Active Member Role Status Dates Robert Ball , DO Primary Care Provider Active Team Status: Inactive Member Role Status Dates Robert Vail DO Primary Care Provider Active Start: December 24, 2024 End: December 24, 2024Shsunni Dunaway , MDAttending ProviderActiveStart: December 24, 2024 End: December 24, 2024 Team Status: Inactive Member Role Status Dates Robert Vail DO Primary Care Provider Active Start: December 26, 2024 End: December 26, 2024Shsunni Dunaway , MDAttending ProviderActiveStart: December 26, 2024 End: December 26, 2024 Team Status: Active Member Role Status Dates Robert Vail DO Primary Care Provider Active Start: December 26, 2024 Michael Dunaway , MDAttending Provider, Other ProviderActiveStart: December 26, 2024 Team Status: Inactive Member Role Status Dates Robert Vail DO Primary Care Provide r, Attending Provider Active Start: January 04, 2025 End: January 04, 2025 Team Status: Inactive Member Role Status Dates Robert Vail DO Primary Care Provider Active Start: January 16, 2025 End: January 16, 2025Shsunni Dunaway , MDAttending ProviderActiveStart: January 16, 2025 End: January 16, 2025 Team Status: Inactive Member Role Status Dates Robert Vail DO Primary Care Provider Active Start: February 14, 2025 End: February 14, 2025Michael Dunaway , MDAttending ProviderActiveStart: February 14, 2025 End: February 14, 2025 Team Status: Active Member Role Status Dates Robert Vail DO Primary Care Provider Active Start: February 14, 2025 Michael Dunaway , MDAttending ProviderActiveStart: February 14, 2025 [...] Start: March 12, 2025 End: March 12, 2025Sherif S Emelyn , MDAttending ProviderActiveStart: March 12, 2025 End: [...] Start: May 28, 2024 End: May 28, 2024Shsunni Dunaway , MDAttending ProviderActiveStart: May 28, 2024 End: May 28, 2024 Team Status: Inactive Member Role Status Dates Robert Vail DO Primary Care Provider Active Start: June 15, 2024 End: June 15, 2024Michael Dunaway , MDAttending ProviderActiveStart: June 15, 2024 End: June [...] 09, 2024 End: August 09, 2024Micheal Dunaway , MDAttending ProviderActiveStart: August 09, 2024 End: August [...] 24, 2024 End: August 24, 2024Michael Dunaway , MDAttending ProviderActiveStart: August 24, 2024 End: August 24, 2024 Team Status: Active Member Role Status Dates Robert Vail DO Primary Care Provider Active Start: May 16, 2024 Shaikh Eduardo MDAttending ProviderActiveStart: May 16, 2024 Team Status: Inactive [...] 30, 2024 End: April 30, 2024Michael Dunaway , MDAttending ProviderActiveStart: April 30, 2024 End: April [...] 09, 2024 End: May 09, 2024Michael Dunaway MDAttending ProviderActiveStart: May 09, 2024 End: May [...] DO Primary Care Provider Active Michael Dunaway MDAttending ProviderActive Team Status: Inactive Member Role Status Dates Robert Vail DO Primary Care Provider Active Maico Lloyd DOAttending ProviderActive Team Status: Active Member Role Status Dates Provider Conversion Attending Provider Active St art: December 09, 2023 Team Status: Inactive Member Role Status Dates Rboert Vail DO Primary Care Provider Active Start: January 12, 2024 End: January 12, 2024Juancarlos Campbell , MDAttending ProviderActiveStart: January 12, 2024 End: January 12, 2024 Team Status: Inactive Member Role Status Dates Robert Vail DO Primary Care Provider Active Start: August 28, 2024 End: August 28, 2024Shsunni Dunaway MDAttending ProviderActiveStart: August 28, 2024 End: August 28, 2024 Team Status: Active Member Role Status Dates Robert Vail DO Primary Care Provider Active Start: August 28, 2024 Michael Dunaway , MDAttending ProviderActiveStart: August 28, 2024 Team Status: Inactive Member Role Status Dates Robert Vail DO Primary Care Provider Active Start: September 04, 2024 End: September 04, 2024Shsunni Dunaway , MDAttending ProviderActiveStart: September 04, 2024 [...] DateEnd Date Robert Vail MD [address] [place] [address] PCP - GeneralInternal Medicine04/03/24Team MemberRelationshipSpecialtyStart Date End Date Robert Vail MD [address] [facility] [place] [address] PCP - GeneralInternal Medicine04/03/24Team MemberRelationshipSpecialtyStart Date End Date Robert Vail MD [address] [facility] [place] [address] PCP - GeneralInternal Medicine04/03/24am MemberRelationshipSpecialtyStart Date End Date Robert Vail MD [address] [facility] [place] [phone] PCP - GeneralInternal Medicine04/03/24Team MemberRelationshipSpecialtyStart Date End Date Robert Vail MD [address] [facility] [place] [phone] PCP - GeneralInternal Medicine04/03/24Team MemberRelationshipSpecialtyStart Date End Date Robert Vail MD [address] [facility] [place] [phone] PCP - GeneralInternal Medicine04/03/24Team MemberRelationshipSpecialtyStart Date End Date Robert Vail MD [address] [facility] [place] [address] PCP - GeneralInternal Medicine04/03/24Team MemberRelationshipSpecialtyStart Date End Date Robert Vail MD [address] [facility] [place] [id number] PCP - GeneralInternal Medicine04/03/24Team MemberRelationshipSpecialtyStart Date End Date Robert Vail MD [address] [place] [phone] PCP - GeneralInternal Medicine04/03/24Team MemberRelationshipSpecialtyStart Date End Date Robert Vail MD PCP - GeneralInternal Medicine04/03/24Team MemberRelationshipSpecialtyStart Date End Date Robert Vail MD PCP - GeneralInternal Medicine04/03/24Team MemberRelationshipSpecialtyStart Date End Date Robert Vail MD PCP - GeneralInternal Medicine04/03/24Team MemberRelationshipSpecialtyStart Date End Date Robert Vail MD PCP - GeneralInternal Medicine04/03/24 Team Status: Inactive Member Role Status Shannon Vail DO Primary Care Provider Active Start: March 28, 2025 End: March 28, 2025Michael Dunaway MDAttmelvin ProviderActiveStart: March 28, 2025 End: March 28, 2025Team MemberRelationshipSpecialtyStart DateEnd Date Robert Vail DO PCP - GeneralInternal Medicine04/03/24Team MemberRelationshipSpecialtyStart Date End Date Robert Vail DO PCP - GeneralInternal Medicine04/03/24Team MemberRelationshipSpecialtyStart Date End Date Robert Vail DO PCP - GeneralInternal [facility]04/03/24Team MemberRelationshipSpecialtyStart Date End Date Robert Vail DO PCP - GeneralInternal [facility]04/03/24Te MemberRelationshipSpecialtyStart Date End Date Robert Vail [facility]/03/24 Team Status: Inactive Member Role Status Dates Robert Vail DO Primary Care Provide r, Attending Provider Active Start: April 09, 2025 End: April 09, 2025Team MemberRelationshipSpecialtyStart DateEnd Date Robert Vail DO [facility]04/03/24Team MemberRelationshipSpecialtyStart Date End Date Robert [facility]ail [facility]/03/24Team MemberRelationshipSpecialtyStart Date End Date Robert Vail DO PCP - GeneralInternal [facility]04/03/24Team MemberRelationshipSpecialtyStart Date End Date Robert Vail DO PCP [facility]ern[facility]04/03/24Te MemberRelationshipSpecialtyStart Date End Date Robert Vail DO PCP - GeneralInternal [facility]04/03/24Te MemberRelationshipSpecialtyStart Date End Date [facility]/24 Team Status: Inactive Member Role Status Dates Robert Vail DO Primary Care Provider Active Start: April 15, 2025 End: April 15, 2025Shsunni Dunaway MDAttending ProviderActiveStart: April 15, 2025 End: April 15, 2025 Team Status: Active Member Role Status Dates Robert Vail DO Primary Care Provide r, Attending Provider Active Start: April 18, 2025 Team Status: Inactive Member Role Status Dates Robert Vail DO Primary Care Provider Active Start: May 06, 2025 End: May 06, 2025Michael Dunaway MDAttending ProviderActiveStart: May 06, 2025 End: May 06, 2025 Team Status: Inactive Member Role Status Dates Robert Vail DO Primary Care Provide r, Attending Provider Active Start: May 06, 2025 End: May 06, 2025 Team Status: Inactive Member Role Status Dates Robert Vail DO Primary Care Provider Active Start: April 09, 2025 End: April 09enmeagan Vail DOAttending ProviderActiveStart: April 09, 2025 End: April 09, 2025 Team Status: Active Member Role Status Dates Robert Vail DO Primary Care Provider Active Start: April 18, 2025 Robert Vail DOAttending ProviderActiveStart: April 18, 2025 Team Status: Inactive Member Role Status Dates Robert Vail DO Primary Care Provider Active Start: May 06, 2025 End: May 06anushka Vail DOAttending ProviderActiveStart: May 06, 2025 End: May 06, 2025 Team Status: Inactive Member Role Status Dates Robert Vail DO Primary Care Provider Active Start: May 16, 2025 End: May 16anushka Vail DOAttending ProviderActiveStart: May 16, 2025 End: May 16, 2025 Team Status: Inactive Member Role Status Dates Robert Vail DO Primary Care Provider Active Start: June 14, 2025 End: June 14, 2025Morena Donato APRN [employer] SECURITY REPRESENTATIVE-CAttending ProviderActive Start: June 14, 2025 End: June 14, 2025 Team Status: Inactive Member Role Status Dates Robert Vail DO Primary Care Provider Active Start: June 18, 2025 End: June 18anushka Vail DOAttending ProviderActiveStart: June 18, 2025 End: June 18, 2025 Team Status: Inactive Member Role Status Dates Robert Vail , Primary Care Provider Active Start: August 12, 2025 End: August 12anushka Vail , DOAttending ProviderActiveStart: August 12, 2025 End: August 12, 2025 Team Status: Active Member Role/Relationship Status Dates Robert Vail , Primary Care Provider Active Team Status: Inactive Member Role/Relationship Status Dates Robert Vail , Primary Care Provider Active Start: August 12, 2025 End: August 12anushka Vail DOAttending ProviderActiveStart: August 12, 2025 End: August 12, 2025 Team Status: Inactive Member Role/Relationship Status Dates Robert Vail DO Primary Care Provider Active Start: September 23, 2025 End: September 23, 2025Michael Brianna Dunaway ARELYttmelvin ProviderActiveStart: September 23, 2025 End: September 23, 2025 Goals (unrecognized section and content) Goals [...] BE BASED ON THE PRIMARY CLINICAL RECORDS. [facility] [employer] provides no warranty or guarantee of the accuracy or completeness of information in this document.
== END 2025-10-02 09:56 | disposition home or self-care (01) ==
LOC: WC 09:55
PROVIDERS: PCP Internal Medicine; Visit Provider Physician Assistant
DX: I87.311 Chronic venous hypertension (idiopathic) with ulcer of right lower extremity (principal); L97.812 Non-pressure chronic ulcer of other part of right lower leg with fat layer exposed
CPT/HCPCS: 29580

== ENCOUNTER 2025-10-15 10:11 | Outpatient (OUT) | payer MEDICARE, OTHER, SELFPAY ==
--- OUTSIDE RECORDS SUMMARY | 2025-10-15 10:17 | XMS_ITS | CCD ---
Author Organization [facility] Care Team Providers Care Carpenter Name Role Phone ROBERT VAIL Primary Care Physician [phone] Quita Simmons Unavailable Usama Batista Unavailable Michael Dunaway Unavailable Maico Lloyd Unavailable DO Robert Vail Primary Care Provider DO Maico Lloyd Attending Provider [phone] MD Michael Dunaway Attending Provider Kaitlynn Foy [...] Care Provider MD Juancarlos Campbell Attending Provider [phone] DO Robert Vail Primary Care Provider MD Juancarlos Campbell Attending Provider [phone] Genna, DO Jones Primary Care Provider MD [...] Provider Robert Vail DO Primary Care Provider [phone] Michael Dunaway MD Attending Provider Robert Vail [...] Attending Provider Ball DO, Robert Attending Provider [phone] Morena Donato APRN Attending Provider Ball DO, Robert Primary Care Provider Ball DO, Robert Attending Provider [phone] Ball DO, Robert Primary Care Provider [phone] Ball DO, Robert Attending Provider [phone] Michael Dunaway MD Attending Provider [phone] Allergies Allergy ClassificationReported Allergen(s)Allergy TypeDate of OnsetReaction(s) FacilityNSAIDs (1 source)celecoxibDrug Inivrtp34-30-3307KnhchCdafoilwuProvidence Hospital Penicillins (antibiotic) (1 source)PenicillinsDrug Vspyqkc26-08-9625KcvzlAxbiiksegKettering Health Troyerotonin Reuptake Inhibitors (SSRIs) (1 source)CitalopramDrug Cuoghca84-48-7792UvwldZemcudsxaThe [facility] (2 sources)Adhesive Tape; Translations: [Tape]Drug allergyShelby Memorial Hospital (20 sources)celecoxib; Translations: [celecoxib]Drug Dwezemn78-92-9245vzvm, Hives, UnknownUniversity Hospitals [facility] (1 source)Penicillins; Translations: [penicillins]Drug allergygrogMercy Health Kings [facility] Hospital Comment on above:Pt. states PCN doesn't work for me, it just doesn't work (20 sources)Penicillin GDrug AllergyAdventHealth Zephyrhills mydeco Other (20 sources)Penicillins; Translations: [Penicillins]Allergy to substance 09-33-3203Erux, Itching, SwellingGood [facility]aritan Hospital (2 sources)celecoxibDrug Fbjkfqd55-22-0629Ulr [facility] (1 source)CitalopramDrug AllergySelect [facility] [place] [facility] (1 source)DesonideDrug AllergySelect [facility]ty [facility] [place] [facility] (20 sources)CitalopramDrug Woiucpg32-73-3122IzqaqixProMedica [facility] (18 sources)PenicillinDrug Tkoobhf19-19-9503ZgceepzAlkfvEcoark Other (1 source)Substance with penicillin structure and antibacterial mechanism of action (substance)Drug allergyIndiana University Health La Porte HospitalEcoark Other (1 source)patient allergy list reviewed by nurse or physiciaPropensity to adverse bspucxtgv24-53-0672Wosozmp:[facility] Other (1 source)celecoxibDrug Rrnvptd39-74-2321LrrgzblvsGood Samaritan Hospital Repository (1 source)CitalopramDrug Juwyuks74-29-1932Cmuocetko[address] [place] [address] Repository (20 sources)celecoxibDrug Qtgfuen97-66-0287Exvyr, Itching, Rash, SwellingNOMS Healthcare (20 sources)Wound Dressing AdhesiveDrug Wrztowo77-47-6356ZyagKQYZ Healthcare Medications Current Medications MedicationDrug Class(es)DatesSig (Normalized)Sig (Original)AeroChamber Mini Chamber - (20 sources)Start: 19-15-5185AybwQabiinh Mini Chamber - Use with MDI inhaled Use q 4 hours as needed for cough for 30 days Feb, ActiveAllegra Allergy 180 MG (20 sources)Start: 10-17-1040zuwk 1 tablet by mouth once dailyAllegra Allergy 180 MG 1 tablet Swallow whole with water; do not take with fruit juices. Orally Once a day for 30 days Feb, Activeatorvastatin 20 mg oral tablet (20 sources)HMG-CoA Reductase InhibitorStart: 06-18-2025 End: 78-64-8071fubv 1 tablet by mouth once daily in the eveningAtorvastatin 20 mg tablet Active 20 MG PO Every evening 90 90 August 12, 2025 11:06am Complies with drug therapyStart: 03-18-2025 End: 02-83-8802Rvjkyzbupehu 20 mg tablet Discontinued 0 .ROUTE .COMPLEX 90 3 March 18, 2025 6:30pm June 18, 2025 2:46pm TAKE 1 TABLET EVERY DAYStart: 05-62-0842Ndpdwuwfaiua 20 mg tablet Active 0 .ROUTE .COMPLEX 90 March 18, 2025 6:30pm TAKE 1 TABLET EVERY DAYStart: 03-27-2015 End: 68-38-5878pico 1 tablet by mouth once dailyAtorvastatin 20 mg tablet Discontinued 20 MG PO Daily May 05, 2022 12:00am March 12, 2024 6:05pm furosemide 20 mg oral tablet (20 sources)Loop DiureticStart: 09-21-2024 End: 09-12-5186gdgf 1 tablet by mouth twice dailyFurosemide 20 mg tablet Active 20 MG PO Twice daily 180 90 September 21, 2024 4:20pm Complies with drug therapyStart: 02-14-2024 End: 96-29-8450vzht 1 tablet by mouth once dailyFurosemide 40 mg tablet Discontinued 40 MG PO Daily February 14, 2024 12:00am September 21, 2024 3:26pm Start: 01-36-7921zlxw 1 tablet by mouth twice dailyLasix 20 mg Tab 20 mg = 1 tab(s), Oral, BID, Refills(s) 0 Start Date: 03/03/22 Status: OrderedInhalational Spacing Device (Aerochamber Mini) spacer (20 sources)Start: 93-74-2630Pmmurmevqbhi Spacing Device (Aerochamber Mini) spacer Active 0 [...] (20 sources)Angiotensin 2 Receptor BlockerStart: 06-18-2025 End: 33-98-2041nntp 1 tablet by mouth once dailyLosartan 50 mg tablet Active 50 MG PO Daily 90 90 3 August 12, 2025 11:07am Complies with drugtherapyStart: 03-18-2025 End: 61-50-2380Oqocxyel 50 mg tablet Discontinued 0 .ROUTE .COMPLEX 90 3 March 18, 2025 6:31pm June 18, 2025 2:46pm TAKE 1 TABLET EVERY DAYStart: 03-03-2022 End: 43-72-0710bdpd 1 tablet by mouth once dailyLosartan 50 mg tablet Discontinued 50 MG PO Daily February 14, 2024 12:00am March 12, 2024 6:05pmtake 1 tablet by mouth in the morninglosartan (Cozaar) 25 MG tablet Take 25 mg by mouth in the morning. ActivemethylPREDNISolone 4 mg oral tablet (1 source)CorticosteroidStart: 55-03-5560Pigjwd 4 MG as directed Orally as directed for 6 days Oct, Activemupirocin 0.02 mg/mg topical ointment (4 sources)RNA Synthetase Inhibitor AntibacterialStart: 81-44-4491Vtfwgjmlv 2 % ointment Active 1 APPLIC TOPICAL Twice daily 22 0 June 14, 2025 12:00am Cellulitis Skin tear Cellulitis, unspecified Complies with drug therapy polysaccharide iron complex 150 mg oral capsule (20 sources)Start: 12-10-2024 End: 73-21-7741Mhtcxxiepmbnbc Iron Complex (Ferrex 150) 150 mg iron capsule Active 150 MG PO Daily August 12, 2025 11:10am Complies with drug therapyStart: 08-27-2024 End: 36-23-8694uygy 1 capsule by mouth once dailyPolysaccharide Iron Complex (Ferrex 150) 150 mg iron capsule Discontinued 0 .ROUTE .COMPLEX 26 04August 27, 2024 12:37pm December 10, 2024 2:45pm TAKE 1 CAPSULE BY MOUTH DAILYStart: 08-10-2024 End: 10-30-9861Byuzhczsgwqwnp Iron Complex (Ferrex 150) 150 mg iron capsule Discontinued 150 MG PO every other dayS2023 12:00am August 27, 2024 12:37pmStart: 06-22-2022 End: 82-36-7757Paikjwskkeayyt Iron Complex (Ferrex 150) 150 mg iron capsule Discontinued 150 MG PO Daily February 15, 2024 3:00pm August 10, 2024 12:24pmStart: 42-88-2832uabd 1 capsule by mouth once dailyFerrex-150 oral [...] release oral capsule (20 sources)Start: 03-18-2025 End: 08-00-7564Eskaevqky Chloride 10 mEq capsule, extended release Active 0 .ROUTE .COMPLEX 90 August 12, 2025 11:07am TAKE 1 CAPSULE EVERY DAY Complies with drug therapyStart: 00-84-1230Zjwbywskq Chloride 10 mEq capsule, extended release Active 0 .ROUTE .COMPLEX March 18, 2025 6:31pm TAKE 1 CAPSULE EVERY DAYStart: 05-05-2022 End: 21-32-0767iveh 1 capsule by mouth once dailyPotassium Chloride 10 mEq capsule, extended release Discontinued 10 MEQ PO Daily February 14, 2024 12:00am March 12, 2024 6:05pmStart: 64-12-1288xshx 1 tablet by mouth once daily potassium chloride 10 mEq ER Tab 10 mEq = 1 tab(s), Oral, Daily, Refills(s) 0, Other (see comment) Start Date: 03/27/15 Status: Orderedtake 1 dose by mouth once daily at mealtimePotassium Chloride 20 MEQ 1 packet with food Orally Once a day Not-Taking/PRNtiZANidine 4 mg oral tablet (4 sources)Central alpha-2 Adrenergic AgonistStart: 80-56-7131cqEWGnxifn HCl 4 MG 1/2-1 tablet as needed Orally at bedtime for 30 days Jul, Active warfarin sodium 5 mg oral tablet (20 sources)Vitamin K AntagonistStart: 03-20-2025 End: 75-98-4013Etfnbriq 5 mg tablet Active 5 MG PO .COMPLEX 30 30 5 August 12, 2025 11:10am 5 mg orally; as directed by coumadin clinic Complies with drug therapyStart: 03-20-2025 End: 75-66-0294spvk 1 tablet by mouth three times weeklyWarfarin 2.5 mg tablet Discontinued 2.5 MG PO 3 Times a week March 20, 2025 1:36pm August 12, 2025 11:08amStart: 12-13-2024 End: 79-15-9185oool 1 tablet by mouth once dailyWarfarin 5 mg tablet Discontinued 0 .ROUTE .COMPLEX 240 3 December 13, 2024 6:15pm March 20, 2025 1:38pm TAKE 1 TABLET BY MOUTH DAILYStart: 08-10-2024 End: 56-04-3623xlet 1 tablet by mouth two times weeklyWarfarin 2.5 mg tablet Discontinued 2.5 MG PO Twice a Week August 10, 2024 12:00am February 1:38pmStart: 05-28-2024 End: 01-51-3940vwwb 1 tablet by mouth five times weeklyWarfarin 5 mg tablet Discontinued 5 MG PO 5 TIMES PER WEEK May 28, 2024 12:00am December 13, 2024 6:16pmStart: 70-48-4911cykz 1 tablet by mouth once dailywarfarin (Coumadin) 5 MG tablet Take 5 mg by mouth 1 (one) time each day 10/10/2023 Activetake 1 tablet by mouth two times weeklyCoumadin 5 5 MG 1 tablet Orally Two times a Week Active witch darien 200 mg/ml medicated pad (20 sources)Start: 01-61-9401Useti Darien (Preparation H Totables Wipes) 50 % pads Indications: Hemorrhoids, unspecified hemorrhoid type Apply 1 Dose topically every 8 (eight) hours if needed (with loose stool to wipe gently) 10 e ach 3 10/31/2023 Active Completed/Discontinued Medications MedicationDrug Class(es)DatesSig (Normalized)Sig (Original)acetaminophen 325 mg / HYDROcodone bitartrate 5 mg oral tablet (20 sources)Opioid AgonistStart: 02-14-2024 End: 32-91-9763ygpu 1 tablet by mouth twice dailyHydrocodone-Acetaminophen 5-325 mg tablet Discontinued 1 TAB PO Twice daily 0 February 14, 2024 12:00am March 29, 2024 11:00amStart: 11-97-3218qzeg 1 tablet by mouth twice daily as needed HYDROcodone-Acetaminophen 5-325 MG 1 tablet as needed Orally twice daily for 14 days Aug, Dnuxinrqx630158 200 actuat albuterol 0.09 mg/actuat metered dose inhaler (20 sources)beta2-Adrenergic AgonistStart: 02-14-2024 End: 99-04-4243glzv 1 puff(s) by inhalation every four hoursAlbuterol Sulfate 90 mcg/actuation HFA aerosol inhaler Discontinued 2 PUFF INHALATION Every 4 hours February 14, 2024 12:00am May 28, 2024 2:24pmStart: 99-37-2294dvjt 2 puff(s) by inhalation every four hours as needed for coughAlbuterol Sulfate HFA 108 (90 Base) MCG/ACT 2 puffs Inhalation every 4 hrs as needed for cough and SOB Feb, ActiveStart: 18-42-7339cfdd 2 puff(s) by inhalation every four hours as needed for coughAlbuterol Sulfate HFA 108 (90 Base) MCG/ACT 2 puffs Inhalation every 4 hrs as needed for cough and SOB Feb, ActiveStart: 19-15-3089ymsx 2 puff(s) by inhalation every four hours as needed for coughAlbuterol Sulfate HFA 108 (90 Base) MCG/ACT 2 puffs Inhalation every 4 hrs as needed for cough and SOB Feb, Activealendronic acid 5 mg oral tablet (20 sources)BisphosphonateStart: 02-14-2024 End: 89-50-7771Ooelkwtcpen 5 mg tablet Discontinued 5 MG PO February 14, 2024 12:00am March 29, 2024 11:00am 1 tablet 30 minutes before the first food, beverage or medicine of the day with plain water Orally Once a dayStart: 05-05-2022 End: 61-34-0151aooh 1 tablet by mouth every weekAlendronate 70 mg tablet Discontinued 70 MG PO every week May 05, 2022 12:00am June 23, 2022 10:21am Start: 27-87-5666kpzk 1 tablet by mouth every weekFosamax 70 mg oral tablet 70 mg = 1 tab(s), Oral, qWeek, Refills(s) 0 Start Date: 03/03/22 Status: Ordered Alendronate Sodium 5 MG 1 tablet 30 minutes before the first food, beverage or medicine of the day with plain water Orally Once a day Activeapixaban 5 mg oral tablet (20 sources)Factor Xa InhibitorStart: 05-05-2022 End: 86-41-6921pxry 1 tablet by mouth once dailyApixaban (Eliquis) 5 mg tablet Discontinued 5 MG PO Daily May 05, 2022 12:00am May 28, 2024 2:24pmEliquis 5 MG TAKE 1 TABLET TWICE DAILY ActiveEliquis Activeazithromycin 250 mg oral tablet (20 sources)Macrolide AntimicrobialStart: 69-42-8927Yxghziprjwhx 250 MG as directed Orally daily for 5 days Feb, Not-Taking/PRNStart: 12-27-2022 Azithromycin 500 MG 1 tablet Orally for 5 days Nov, Not-Taking/PRN benzonatate 200 mg oral capsule (20 sources)Non-narcotic AntitussiveStart: 02-14-2024 End: 18-01-5154bzzm 1 capsule by mouth three times dailyBenzonatate 100 mg capsule Discontinued 100 MG PO Three times daily February 14, 2024 12:00am April 30, 2024 3:05pmStart: 02-14-2024 End: 98-49-1254atne 1 capsule by mouth three times dailyBenzonatate 200 mg capsule Discontinued 200 MG PO Three times daily February 14, 2024 12:00am April 30, 2024 3:05pmStart: 29-33-9367jvyb 1 capsule by mouth every eight hours Benzonatate 100 MG 1 capsule as needed Orally Three times a day for 10 days Oct, ActiveStart: 34-26-4166mode 1 capsule by mouth every eight hours Benzonatate 200 MG 1 capsule Orally Three times a day for 10 13 Feb, 2023 Active Start: 42-28-2839news 1 capsule by mouth every eight hoursTessalon Perles 100 MG 1 capsule as needed Orally Three times a day for 7 days Aug, Active cephalexin 500 mg oral capsule (19 sources)Cephalosporin AntibacterialStart: 99-61-0694ulzg 1 capsule by mouth twice daily as neededCephalexin 500 MG 1 capsule Orally twice daily for 14 days Jun, Not-Taking/PRNStart: 04-48-6420kcja 1 capsule by mouth every twelve hoursCephalexin 500 MG 1 tablet Orally Twice a day for 7 days Aug, Not-Takingcodeine phosphate 2 mg/ml / guaiFENesin 20 mg/ml oral solution (20 sources)Opioid AgonistStart: 13-46-6116qadk 10 mL by mouth every six hours as needed for coughguaiFENesin-Codeine 100-10 MG/5ML 10 mL as needed Orally every 6 hours as needed for cough Feb, Not-Taking/PRNcolestipol hydrochloride 1000 mg oral tablet (20 sources)Bile Acid SequestrantStart: 02-14-2024 End: 62-25-4882Abbsffhwmp 1 gram tablet Discontinued 2 GM PO Daily February 14, 2024 12:00am May 28, 2024 2:25pmStart: 02-14-2024 End: 34-99-1076vdok 2 g by mouth once dailyColestipol Discontinued 2 GM PO Daily February 14, 2024 12:00am May 28, 2024 2:25pmStart: 87-17-0796prnh 2 tablets by mouth every twenty-four hoursColestipol HCl 1 GM 2 tablets Orally Once a day for 30 days Jun, Activetake 2 tablets by mouth every twenty-four hours Colestipol HCl 1 GM 2 tablets Orally Once a day for 90 days Activedoxycycline monohydrate 100 mg oral tablet (20 sources)Tetracycline-class DrugStart: 06-14-2025 End: 36-36-3333eifw 1 tablet by mouth twice dailyDoxycycline Monohydrate 100 mg tablet Discontinued 100 MG PO Twice daily 20 10 0 June 14, 2025 12:00am August 12, 2025 10:32amStart: 01-04-2025 End: 00-50-2424yzri 1 capsule by mouth twice dailyDoxycycline Hyclate 100 mg capsule Discontinued 100 MG PO Twice daily 14 7 0 January 16, 2025 1:46pm April 09, 2025 10:23amStart: 02-15-2024 End: 12-24-0078zxjm 1 capsule by mouth twice dailyDoxycycline Hyclate 100 mg capsule Discontinued 100 MG PO Twice daily 20 10 0 February 15, 2024 12:00am May 28, 2024 2:25pmStart: 01-84-6150dafq 1 capsule by mouth twice daily as needed Doxycycline Hyclate 100 MG 1 capsule Orally twice daily for 7 days March, Not-Taking/PRNStart: 05-05-2022 End: 05-73-0789zhbv 1 capsule by mouth once dailyDoxycycline Hyclate 100 mg capsule Discontinued 100 MG PO Daily May 05, 2022 12:00am June 23, 2022 10:21amempagliflozin 10 mg oral tablet (6 sources)Sodium-Glucose Cotransporter 2 InhibitorStart: 04-19-2025 End: 04-24-7722pfum 1 tablet by mouth once daily in the morningEmpagliflozin (Jardiance) 10 mg tablet Discontinued 10 MG PO Every morning 30 30 5 April 19, 2025 12:00am August 12, 2025 11:06am0.8 ml enoxaparin sodium 150 mg/ml prefilled syringe (20 sources)Low Molecular Weight HeparinStart: 12-14-2024 End: 32-84-0404Gqxrnfcsbw 120 mg/0.8 mL syringe Discontinued 0 .ROUTE .COMPLEX 4.8 0 December 14, 2024 6:34pm March 20, 2025 1:35pm INJECT 1 syringe EVERY 12 HOURS FOR 6 DAYSStart: 12-14-2024 End: 43-39-1628Aoxneodsaz (Lovenox) 120 mg/0.8 mL syringe Discontinued 0 SUBCUT Every 12 hours 4.8 6 0 December 14, 2024 1:00am December 14, 2024 6:34pm subcutaneously every 12 hours; Start 3 days prior to surgery, hold on morning of surgery, restart when surgeon determines safe.Enoxaparin 120 mg/0.8 mL syringe (12 sources)Start: 12-14-2024 End: 91-64-8895Dqigsjysqp 120 mg/0.8 mL syringe Discontinued 0 .ROUTE .COMPLEX 4.8 December 14, 2024 6:34pm 2024 1:35pm INJECT 1 syringe EVERY 12 HOURS FOR 6 DAYSStart: 68-96-2754Njinrfgfmb 120 mg/0.8 mL syringe Active 0 .ROUTE .COMPLEX 4.8 December 14, 2024 6:34pm INJECT 1 syringe EVERY 12 HOURS FOR 6 DAYSStart: 26-96-2617Dtmdqgwrbx 120 mg/0.8 mL syringe Active 0 .ROUTE .COMPLEX 4.8 December 14, 2024 5:34pm INJECT 1 syringe EVERY 12 HOURS FOR 6 DAYSferrous sulfate 325 mg oral tablet (20 sources)Start: 06-23-2022 End: 09-20-3352nxih 1 tablet by mouth once dailyFerrous Sulfate [...] tablet (20 sources)Histamine-1 Receptor AntagonistStart: 02-14-2024 End: 37-71-5303qxzs 1 tablet by mouth once daily as neededFexofenadine (Carole Allergy) 180 mg tablet Discontinued 180 MG PO Daily as needed for allergic sym ptoms February 14, 2024 12:00am March 20, 2025 1:35pmStart: 31-83-9985dvww 1 tablet by mouth once dailyAllegra Allergy 180 MG 1 tablet Swallow whole with water; do not take with fruit juices. Orally Once a day for 30 days Feb, ActiveIron (1 source)take 1 tablet by mouth once dailyIron 325 (65 Fe) MG 1 tablet Orally Once a day Not-TakinglevETIRAcetam 500 mg oral tablet (20 sources)Start: 03-12-2024 End: 70-83-2516Gcpsmaezyqwvx 500 mg tablet Discontinued 750 MG PO Twice daily 270 90 3 June 18, 2025 2:42pm August 12, 2025 11:09amStart: 03-12-2024 End: 99-46-3017gwij 750 mg by mouth twice dailyLevetiracetam Active 750 MG PO Twice daily 270 90 March 12, 2024 6:04pmStart: 02-14-2024 End: 21-77-9518Pyxprqxfephlc 500 mg tablet Discontinued 750 MG PO Daily February 14, 2024 12:00am March 12, 2024 5:05pmStart: 02-14-2024 End: 92-34-8215yozj 750 mg by mouth once dailyLevetiracetam Discontinued 750 MG PO Daily February 14, 2024 12:00am March 12, 2024 5:05pmStart: 05-05-2022 End: 20-89-0786fbom 1 tablet by mouth once dailyLevetiracetam 500 mg tablet Discontinued 500 MG PO Daily May 05, 2022 12:00am February 14, 2024 1:06pm Start: 11-20-2014 End: 22-61-0384saxb 1 tablet by mouth twice dailyLevetiracetam 500 mg tablet Discontinued 500 MG PO Twice daily February 14, 2024 1:04pm March 12, 2024 5:05pmtake 1 tablet by mouth every eight hoursKeppra 500 MG 1 tablet Orally tid Not-Takingphenytoin sodium 100 mg extended release oral capsule (20 sources)Anti-epileptic AgentStart: 05-05-2022 End: 25-86-9272vbfl 1 capsule by mouth three times dailyPhenytoin Sodium Extended 100 mg capsule Discontinued 100 MG PO Three times daily May 05, 2022 12:00am June 23, 2022 10:21amStart: 17-05-2984hgja 1 capsule by mouth twice dailyDilantin 100 [...] oral tablet (20 sources)Opioid AgonistStart: 02-14-2024 End: 94-72-5472ykey 1 tablet by mouth once daily at bedtimeTramadol 50 mg tablet Discontinued 50 MG PO Daily at bedtime February 14, 2024 12:00am March 29, 2024 11:00amStart: 91-30-1091qwff 1 tablet by mouth once daily at bedtime as needed traMADol HCl 50 MG 1 tablet as needed Orally Once a day at bedtime for 14 days Aug, ActiveStart: 53-25-2139svfe 1 tablet by mouth once daily at bedtime as neededtraMADol HCl 50 MG 1 tablet as needed Orally Once a day at bedtime for 14 days Jul, Active Problems Active Problems Problem ClassificationProblemDateDocumented DateEpisodic/ChronicAbdominal hernia (1 source)Diaphragmatic hernia; Translations: [Diaphragmatic hernia without mention of obstruction or gangrene]EpisodicAcute bronchitis (7 sources)Acute bronchitis due to other specified organisms; Translations: [Acute bronchitis]Onset: 27-64-7167YcoxlundFelnbhxqabmozc/social admission (2 sources)Persons encountering health services in other specified circumstances EpisodicAsthma (20 sources)Asthma - currently active; Translations: [Unspecified asthma, uncomplicated]55-71-9826YuxbqycRufktpg tract disease (2 sources)Biliary calculus; 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] 92-12-4881LfklhiihSabjerel (20 sources)After-cataract of bilateral eyes; 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, bilateral]Onset: 600818-96-2223LczdoxeHjrdvzj obstructive pulmonary disease and bronchiectasis (20 sources)Simple chronic bronchitis; Translations: [Simple chronic bronchitis] ChronicChronic ulcer of skin (9 sources)Non-pressure chronic ulcer of right calf limited to breakdown of skin; Translations: [Non-pressure chronic ulcer of right calf limited to breakdown of skin]ChronicCoagulation and hemorrhagic disorders (20 sources)Hypercoagulability state; Translations: [Other primary thrombophilia]Onset: 525697-55-7786WxdwytmKpehraiedotcl of surgical procedures or medical care (4 sources)Infection following a procedure, other surgical site, initial encounter; Translations: [Other complications of procedures, not elsewhere classified, initial encounter]57-91-0579RpplivkrTeafqtwwou heart failure; nonhypertensive (1 source)Chronic combined systolic and diastolic heart failure; Translations: [Chronic combined systolic (congestive) and diastolic (congestive) heart failure]ChronicDeficiency and other anemia (4 sources)Iron deficiency anemia secondary to blood loss (chronic); Translations: [IRON DEFIC ANEMIA SEC BLD LOSS CHRN]Onset: 16-28-9762Rjwjxaa Deficiency and other anemia (1 source)Anemia due to chronic blood loss; Translations: [Iron deficiency anemia secondary to blood loss (chronic)]ChronicDeficiency and other anemia (20 sources)Iron deficiency anemia; Translations: [Iron deficiency anemia, unspecified]Onset: 91-11-3051UisuqjvkSkoeceevzw and other anemia (11 sources)Anemia; Translations: [Anemia, unspecified] Resolved: 489603-09-0448JdapfkneQxbtmekgcr and other anemia (9 sources)Iron deficiency anemia, unspecified; Translations: [Iron deficiency anemia, unspecified]10-68-2592YqyiiwvcKgdojjemdl and other anemia (3 sources)Anemia, unspecified; Translations: [Anemia, unspecified]04-09-2025 EpisodicDiabetes mellitus with complications (20 sources)Type 2 diabetes mellitus; Translations: [Type 2 diabetes mellitus with hyperglycemia]Onset: 58-35-9508WdhdqudOflrwpjx mellitus without complication (1 source)Diabetes -42-1239TerbgdiLmwhcrjfl of lipid metabolism (20 sources)Hyperlipidemia; Translations: [Pure hypercholesterolemia]Onset: 061871-41-5531CvzkhzdMwaiubmrpzlcgx and diverticulitis (2 sources)Diverticular disease; Translations: [Diverticulitis of colon]Onset: 036690-81-5707PupuaefQ Codes: Adverse effects of medical drugs (6 sources)Adverse effect of anticoagulants, initial encounter; Translations: [Anticoagulants causing adverse effects in therapeutic use]34-87-4819Ruduimaz Epilepsy; convulsions (20 sources)Seizure disorder; Translations: [Generalized idiopathic epilepsy and epileptic syndromes, not intractable, without status epilepticus]Onset: 83-38-5021TefxvisKnzgwpvi; convulsions (3 sources)Seizure disorder; Translations: [Seizure]77-04-7430QwibwbxiGztujjwhvs disorders (20 sources)Gastroesophageal reflux disease; Translations: [Gastro-esophageal reflux disease with esophagitis]57-64-8519YrngblrPncgmqdqb hypertension (20 sources)Hypertensive disorder; Translations: [Essential (primary) hypertension]Onset: 917158-68-9237VpdaeodWsbbgjuympotq symptoms and ill- defined conditions (1 source)DysuriaEpisodicImmunity disorders (1 source)Common variable cyftwfgawsdkrsxrsd68-61-9088HdhncvqEvgwbhqxijbjc and screening for infectious disease (20 sources)Contact with and (suspected) exposure to other viral communicable diseases; Translations: [Vaccination given]EpisodicMenopausal disorders (1 source)Primary ovarian failure; Translations: [Other primary ovarian failure] Onset: 23-78-6799SwmhzdhIzap disorders (2 sources)Depressive disorder; 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] 29-52-5944QjozgnlJibd wounds of extremities (20 sources)Laceration of lower limb; Translations: [Laceration without foreign body, unspecified lower leg, initial encounter]19-31-1839NikqgenvDnzj wounds of head; neck; and trunk (10 sources)Tear of skin; Translations: [Open wound(s) (multiple) of unspecified site(s), without mention of complication]30-88-5225ZgehwfheXlwmgvkjxlmlbf (3 sources)Degenerative joint disease of pelvis; Translations: [Osteoarthrosis, unspecified whether generalized or localized, pelvic region and thigh]Onset: 17-02-8423UzinisjFcfowexmjjgp (20 sources)Osteoporosis; Translations: [Age-related osteoporosis without current pathological fracture]10-84-1279RhksjakPhtvk acquired deformities (1 source)Acquired ukoaxdsidvdokzwbr24-01-7509XuhgcduaIltbw aftercare (20 sources)Long-term current use of anticoagulant; Translations: [terminologist (current) use of anticoagulants]Onset: 93-85-6740TnksfwzeRrzop aftercare (20 sources)snf (current) use of anticoagulants; Translations: [Long-term (current) use of anticoagulants]Onset: 02-18-2022 Resolved: 56-81-8642EdsvfsrsLbzku aftercare (1 source)Long-term current use of drug therapy; Translations: [Other assistant terminal manager (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 therapy]EpisodicOther aftercare (20 sources)Encounter for therapeutic drug level monitoring; Translations: [Encounter for therapeutic drug monitoring]30-52-1503NseuwxasEqeov and unspecified benign neoplasm (1 source)Adrenal reoxwrx59-50-8969SyryekgcNbnoo and unspecified benign neoplasm (1 source)Benign neoplasm of adrenal gland; Translations: [Benign neoplasm of unspecified adrenal gland]EpisodicOther and unspecified benign neoplasm (1 source)Benign neoplasm of right adrenal gland; Translations: [Benign neoplasm of right adrenal gland]EpisodicOther congenital anomalies (1 source)Congenital spondylolysis of lumbosacral region; Translations: [Congenital spondylolysis, lumbosacral region]Onset: 26-09-2349QiduvzoSryan connective tissue disease (1 source)Artificial knee joint present; Translations: [Presence of left artificial knee joint]ChronicOther connective tissue disease (20 sources)History of lumbar fusion; Translations: [Arthrodesis status]Episodic Other connective tissue disease (20 sources)Pain in calf; Translations: [Pain in unspecified lower leg] 55-35-1585ZdzdttqjEiakgcm on above:Problem List clean-up per request of Phys. EHR CmteOther connective tissue disease (1 source)Neuralgia; Translations: [Unspecified neuralgia, neuritis, and radiculitis]EpisodicOther connective tissue disease (1 source)Spasm; Translations: [Other muscle spasm]EpisodicOther connective tissue disease (2 sources)Pain in right legEpisodicOther connective tissue disease (20 sources)Ischial bursitis ; Translations: [Other bursitis of hip, unspecified hip]77-71-7332GthusfiaDnudc diseases of bladder and urethra (2 sources)Vesicocolic dvbxnbe26-22-8136EhhnmfvGjfhv diseases of bladder and urethra (2 sources)Intestinovesical fistula; 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] ChronicOther diseases of veins and lymphatics (1 source)Chronic venous hypertension (idiopathic) without complications of unspecified lower extremity; Translations: [Chronic venous hypertension (idiopathic) without complications of unspecified lower extremity]ChronicOther diseases of veins and lymphatics (12 sources)Chronic peripheral venous hypertension; Translations: [Chronic venous hypertension (idiopathic) without complications of right lower extremity] 53-34-5686DzmgygpKrtbw diseases of veins and lymphatics (1 source)Chronic venous hypertension (idiopathic) without complications of right lower extremityChronicOther diseases of veins and lymphatics (20 sources)Peripheral venous insufficiency; Translations: [Venous insufficiency (chronic) (peripheral)]Onset: 424283-12-9121WhkthfprKnyfv diseases of veins and lymphatics (15 sources)Venous insufficiency (chronic) (peripheral); Translations: [Venous (peripheral) insufficiency, unspecified]EpisodicOther diseases of veins and lymphatics (3 sources)Stasis dermatitis; Translations: [Venous insufficiency (chronic) (peripheral)]EpisodicOther ear and sense organ disorders (1 source)Sensorineural hearing qxnc35-07-6015BqohddbXezhi female genital disorders (1 source)Abnormal uterine bleeding; Translations: [Abnormal uterine and vaginal bleeding, unspecified]Onset: 85-93-1410FpnalaeXpgug gastrointestinal disorders (1 source)Intra-abdominal and pelvic swelling, mass and lump; Translations: [Intra-abdominal and pelvic swelling, mass and lump, unspecified site]Episodic Other injuries and conditions due to external causes (2 sources)History of fall; Translations: [Personal history of fall]Onset: 14-51-8952DfnxkbhmGuvxe lower respiratory disease (20 sources)Dyspnea; Translations: [Shortness of breath]Onset: 11-18-2014 84-91-2963DzahgsqoAnilpwg on above:Problem List clean-up per request of Phys. EHR CmteOther nervous system disorders (20 sources)Chronic pain; Translations: [Other chronic pain]64-74-1179Hyeryqr Other nervous system disorders (20 sources)Other chronic pain; Translations: [Other chronic pain]Onset: 01-28-2022 Resolved: 56-93-2804IkflyysIpxuy nervous system disorders (1 source)Carpal tunnel syndrome; Translations: [Carpal tunnel syndrome, unspecified upper limb]ChronicOther nervous system disorders (1 source)Paresthesia; Translations: [Paresthesia of skin]EpisodicOther non- traumatic joint disorders (1 source)Lower limb joint arthritis; Translations: [Osteoarthrosis, unspecified whether generalized or localized, lower leg]Onset: 34-57-9553EqmdqnbRgsqs nutritional; endocrine; and metabolic disorders (4 sources)Body mass index 40+ - severely obese; Translations: [Body mass index (BMI) 50.0-59.9, adult]Onset: 41-24-6970WlhrykeJwyzb nutritional; endocrine; and metabolic disorders (2 sources)Morbid obesity; Translations: [Morbid (severe) obesity due to excess calories]94-29-8619YaybtdvZbrnm nutritional; endocrine; and metabolic disorders (4 sources)Obesity; Translations: [Obesity, unspecified]71-25-2861BqpiritZywyb upper respiratory disease (20 sources)Allergic rhinitis due to pollen; Translations: [Allergic rhinitis due to pollen]68-15-8184BzzwjokCyocy upper respiratory disease (1 source)Allergic rhinitis due to pollenChronicOther upper respiratory disease (1 source)Seasonal allergic rhinitis; Translations: [Other seasonal allergic rhinitis]Onset: 55-87-1432FcylfcqGnbvv upper respiratory disease (1 source)Other specified disorders of nose and nasal sinusesEpisodicPeri-; endo-; and myocarditis; cardiomyopathy (except that caused by tuberculosis or sexually transmitted disease) (1 source)Dilated cardiomyopathy; Translations: [Dilated cardiomyopathy]Chronic Peripheral and visceral atherosclerosis (1 source)Peripheral vascular disease; Translations: [Other peripheral vascular disease]Onset: 98-39-7433DrqcnveYeujpyptf; thrombophlebitis and thromboembolism (4 sources)H/O: Deep vein thrombosis; Translations: [Embolism from thrombosis of vein of distal lower extremity]Onset: 814115-80-8765VlnxnpmyPpddgsbiy heart disease (3 sources)Pulmonary hypertension; Translations: [Chronic pulmonary heart disease]Onset: 211207-97-6945QgrhgtuYpypctltu heart disease (4 sources)H/O: pulmonary embolus; Translations: [Pulmonary thromboembolism] 65-79-2866NwpfdoeqNoqrmlbe codes; unclassified (20 sources)Obstructive sleep apnea syndrome; Translations: [Obstructive sleep apnea (adult) (pediatric)]43-89-2013DpmftobXhzhauye codes; unclassified (20 sources)Obstructive sleep apnea (adult) (pediatric); Translations: [Obstructive sleep apnea (adult)(pediatric)]ChronicResidual codes; unclassified (1 source)Family history of leukemia; Translations: [FAMILY HISTORY OF LEUKEMIA] Onset: 06-78-3690WvjhbrrpPimqaqxk codes; unclassified (1 source)Family history of malignant neoplasm of other organs or systems; Translations: [FAM HX MALIG NEOPLASM OTH ORGN/SYS]Onset: 24-47-2832Pqzuksit Residual codes; unclassified (1 source)Postmenopausal state; Translations: [Asymptomatic menopausal state] EpisodicResidual codes; unclassified (9 sources)Mammogram declined; Translations: [Procedure and treatment not carried out because of patient's decision for unspecified reasons]04-07-2025 EpisodicResidual codes; unclassified (3 sources)Procedure and treatment not carried out because of patient's decision for unspecified reasons; Translations: [Surgical or other procedure not carried out because of patient's decision]88-43-8359PjcoeaewSkjvnnh detachments; defects; vascular occlusion; and retinopathy (20 sources)Epiretinal membrane of right eye; 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, right eye]Onset: 901012-17-0856EyoshykImdh and subcutaneous tissue infections (20 sources)Erysipelas; Translations: [Cellulitis of right lower limb]Onset: 08-17-2017 Resolved: 76-74-6721IyqxewznRhckycslgfa; intervertebral disc disorders; other back problems (20 sources)Solitary sacroiliitis; Translations: [Sacroiliitis, not elsewhere classified]Onset: 02-18-2022 Resolved: 40-13-3360IaawjxjDhgygjzexxe; intervertebral disc disorders; other back problems (20 sources)Spinal stenosis of lumbar region; Translations: [Spinal stenosis, lumbar region without neurogenic claudication]Onset: 02-22-2017 Resolved: 543435-35-1807TkoyolumThrofhi and strains (2 sources)Sprain of ligament of tarsometatarsal joint; Translations: [Sprain of tarsometatarsal ligament of left foot, initial encounter]Onset: 11-07-2018 EpisodicSuperficial injury; contusion (17 sources)Contusion of lower leg; Translations: [Contusion of left lower leg, initial encounter]Onset: 46-91-0201LfoovfyaYdvdimw disorders (20 sources)Thyroid nodule; Translations: [Nontoxic single thyroid nodule]Onset: 81-09-2593GsgpywxRjtzdwpoxkaj (1 source)Long-term current use of drug therapy; Translations: [Long-term (current) use of other medications]Onset: 86-50-3892Wpcgeodpfkqo (1 source)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); Translations: [Post COVID-19 condition, unspecified]Unclassified (1 source)Non-healing surgical wound; Translations: [Non-healing surgical wound] Onset: 63-33-4801Ujiqfiankkyw (1 source)Acute candidiasis of vulva and vagina; Translations: [Acute candidiasis of vulva and vagina]Unclassified (1 source)Infection following a procedure, unspecified, initial encounter; Translations: [Infection followinga procedure, unspecified, initial encounter] Onset: 21-27-1492Ymdkcuia veins of lower extremity (20 sources)Varicose veins of lower extremity; Translations: [Varicose veins of bilateral lower extremities with other complications]EpisodicViral infection (1 source)Viral infection, unspecifiedEpisodicViral infection (2 sources)COVID-19; Translations: [Disease caused by 2019-nCoV] Past or Other Problems Problem ClassificationProblemDateDocumented DateEpisodic/ChronicAbdominal pain (1 source)Right lower quadrant pain; Translations: [Right lower quadrant pain] Onset: 97-34-7458JirqustnYlpeqibzo infection; unspecified site (1 source)Bacterial infectious disease; Translations: [Bacterial infection, unspecified, in conditions classified elsewhere and of unspecified site]Onset: 94-20-2673JidppclkQqlpqkejamq and hemorrhagic disorders (1 source)Bleeding; Translations: [Hemorrhagic condition, unspecified]Onset: 92-67-5788VlibgmjdTmqmhdlw mellitus without complication (1 source)Impaired fasting glycemia; Translations: [Impaired fasting glucose] Resolved: 18-13-0551GdhufogcJhmgchuows disorders (3 sources)Esophageal disorders; Translations: [Gastro-esophageal reflux disease with esophagitis, without bleeding]Fluid and electrolyte disorders (1 source)Hypokalemia; Translations: [Hypokalemia]Onset: 99-88-1110Buxsmwwh Inflammation; infection of eye (except that caused by tuberculosis or sexually transmitteddisease) (20 sources)Blepharitis of upper and lower eyelids of bilateral eyes; Translations: [Unspecified blepharitis right eye, upper and lower eyelids]Onset: 769769-07-5406RzugnlcuZsyycsqrll infection (1 source)Infectious colitis, enteritis and gastroenteritis; Translations: [Infectious gastroenteritis and colitis, unspecified] Resolved: 34-60-7109GgsnqubvMdpje disorders and dislocations; trauma-related (1 source)Current tear of medial cartilage AND/OR meniscus of knee; Translations: [Other tear of medial meniscus, current injury, left knee, initial encounter]Onset: 90-00-4401TxvzspebJiuvabc and fatigue (1 source)Malaise and fatigue; Translations: [Other malaise and fatigue]Onset: 07-93-6745NzctzcoyFpjefdcoyhs chest pain (1 source)Chest pain; Translations: [Chest pain, unspecified]Onset: 02-14-2014 EpisodicOther connective tissue disease (1 source)Achilles tendinitis, left legOnset: 11-07-2021 Resolved: 76-74-6687JobywmchKahhb connective tissue disease (1 source)Arthrodesis statusOnset: 01-28-2022 Resolved: 93-01-1740FphpltkuDcqfp connective tissue disease (1 source)Prepatellar bursitis of left knee; Translations: [Prepatellar bursitis, left knee]Onset: 93-30-4215NalxekjyJdqke connective tissue disease (1 source)Pain in left lower limb; Translations: [Pain in left leg]Onset: 64-26-3576AqlumhxbOubhl connective tissue disease (14 sources)Other bursitis of hip, unspecified hip; Translations: [Enthesopathy of hip region]Onset: 674247-14-6166ZbaykwpfLhvzw eye disorders (20 sources)Dry eyes; Translations: [Dry eye syndrome of bilateral lacrimal glands]Onset: 787966-82-4335JxkjbiqeMbbsa gastrointestinal disorders (4 sources)Intra-abdominal and pelvic swelling, mass and lump, unspecified site; Translations: [INTRA-ABD PELVSWELL MASS LUMP]Onset: 85-12-3318RfefhoxfOuhkw injuries and conditions due to external causes (1 source)Contusion; Translations: [Contusion of unspecified site]Onset: 24-86-2735UxugzpxnVgdgb nervous system disorders (1 source)Neurogenic claudication; Translations: [Spinal Stenosis, lumbar region with neurogenic claudication]Onset: 90-73-2926UsabisavHrvwl non-traumatic joint disorders (1 source)Pain in left ankle and joints of left footOnset: 11-07-2021 Resolved: 88-14-7476YypdigvaXozfp non-traumatic joint disorders (1 source)Arthralgia of the ankle and/or foot; Translations: [Pain in joint, ankle and foot]Onset: 94-36-7614ZxpndixtJdywc non-traumatic joint disorders (1 source)Knee joint effusion; Translations: [Effusion, left knee]Onset: 82-07-9606VcnsksdcGjmes non-traumatic joint disorders (1 source)Arthralgia of the lower leg; Translations: [Pain in right knee]Onset: 58-74-6971UauzrtxkLxfym screening for suspected conditions (not mental disorders or infectious disease) (6 sources)Encounter for screening mammogram for malignant neoplasm of breast; Translations: [Imaging of abdomen abnormal]Onset: 05-23-2218EflesamzMeivb skin disorders (1 source)Mass in head or neck; Translations: [Swelling, mass, or lump in head and neck]Onset: 18-26-9170NmchatmhUbecsctt codes; unclassified (1 source)Asymptomatic menopausal stateOnset: 01-28-2022 Resolved: 14-92-6192TglwgewqHfccdkvh codes; unclassified (1 source)Family history of ischemic heart disease; Translations: [Family history of ischemic heart disease]Onset: 87-13-5336SlfevptsVhvppmkk codes; unclassified (1 source)Edema; Translations: [Edema]Onset: 03-28-0514UoubkhnhGuozcsee codes; unclassified (1 source)Requires influenza virus vaccination; Translations: [Need for prophylactic vaccination and inoculation, Influenza]Onset: 88-30-0663Gwzfpcbq Residual codes; unclassified (1 source)Localized edema; Translations: [Localized edema]Onset: 10-07-2016 EpisodicScreening and history of mental health and substance abuse codes (1 source)History of tobacco use; Translations: [Personal history of tobacco use, presenting hazards to health]Onset: 48-26-9984OlvkuzwfEkrkhcjjqzja (1 source)Low back pain, unspecified M54.50Onset: 01-28-2022 Resolved: 05-36-1215Ovzosbuilbcl (1 source)Acute cough R05.1Unclassified (1 source)Suspected COVID-19 virus infection Z20.822 Results Test NameValueInterpretationReference RangeFacilityBasophils Auto (Bld) [#/Vol] on 42-19-6263Tslacnhcg (Bld) [#/Vol]Automated basophil count0.0-0.1FParkwood HospitalBasophils (Bld) [#/Vol]0.0 10 3/uL0.0-0.1FParkwood HospitalBasophils/100 WBC Auto (Bld)on 66-86-6721Wuurzwwqk/100 WBC (Bld)Automated basophil %0.2-2.0[facility] Basophils/100 WBC (Bld)0.6 %0.2-2.0[facility] HospitalCholesterol in LDL Calc [Mass/Vol]on 74-03-4857Sqlqzhcocti in LDL [Mass/Vol]Cholesterol in LDL [Mass/volume] in Serum or Plasma by calculationGood Samaritan HospitalComment on above:<100 mg/dl RYPGFUI836-946 mg/dl NEAR OR ABOVE ALQVWVI147- 159 mg/dl BORDERLINE MNGL767-792 mg/dl HIGH>190 mg/dl VERY HIGHCholesterol in LDL [Mass/Vol]52.0 mg/dLGood Samaritan HospitalComment on above:<100 mg/dl CUDJART063-912 mg/dl NEAR OR ABOVE UVCMNGY872-316 mg/dl BORDERLINE GJML371-397 mg/dl HIGH>190 mg/dl VERY HIGHCholesterol in VLDL Calc [Mass/Vol]on 59-51-8198Lesmvsdrijz in VLDL [Mass/Vol]Cholesterol in VLDL [Mass/volume] in Serum or Plasma by calculationGood Samaritan HospitalCholesterol in VLDL [Mass/Vol]10.0 mg/dLGood Samaritan HospitalEosinophils/100 WBC Auto (Bld)on 00-34-2580Pyzjpybuynk/100 WBC (Bld)Automated eosinophil %0.9-7.0 [facility] HospitalEosinophils/100 WBC (Bld)1.3 %0.9-7.0[facility] HospitalErythrocyte distribution width Auto (RBC) [Ratio]on 74-94-8202Qbryrlilvkg distribution width (RBC) [Ratio]Erythrocyte distribution width [Ratio] by Automated count11.0-15.0[facility] Erythrocyte distribution width (RBC) [Ratio]14.6 %11.0-15.0[facility] HospitalEstimated glomerular filtration rate (GFR) non- Americanon 36-55-3881SYJ/1.73 sq M.predicted among non-blacks MDRD (S/P/Bld) [Vol rate/Area]Estimated glomerular filtration rate (GFR) non->=60 mL/min/1.73m 2FParkwood HospitalGFR/1.73 sq M.predicted among non-blacks MDRD (S/P/Bld) [Vol rate/Area]mL/min/{1.73_m2}>=60 mL/min/1.73m 2 [facility] HospitalGlobulin Calc (S) [Mass/Vol]on 04-18-2025 Globulin (S) [Mass/Vol]Serum globulin measurement by calculation (mass/volume) [facility] HospitalGlobulin (S) [Mass/Vol]3.5 g/dLGood Samaritan HospitalGlucose mean value [Mass/volume] in Blood Estimated from glycated hemoglobinon 38-87-1843Mqnbvgf glucose Estimated from glycated hemoglobin (Bld) [Mass/Vol]Glucose mean value [Mass/volume] in Blood Estimated from glycated hemoglobinGood Samaritan HospitalAverage glucose Estimated from glycated hemoglobin (Bld) [Mass/Vol]154 mg/dLGood Samaritan HospitalHematocrit Auto (Bld) [Volume fraction]on 36-59-6153Xylbkuhdwc (Bld) [Volume fraction]Hematocrit [Volume Fraction] of Blood by Automated count 36.0-48.0[facility] HospitalHematocrit (Bld) [Volume fraction]41.2 %36.0-48.0[facility] HospitalHemoglobin A1c percentageon 16-62-4091GaM3o (Bld) [Mass fraction]Hemoglobin A1c percentageHigh4.5-6.2 [facility] HospitalComment on above:ADA RECOMMENDED LIMIT 4.0 - 6.0ADA THERAPEUTIC TARGET < 7.0ACTION SUGGESTED> 7.0HbA1c (Bld) [Mass fraction] 7.0 %High4.5-6.2FParkwood HospitalComment on above:ADA RECOMMENDED LIMIT 4.0 - 6.0ADA THERAPEUTIC TARGET < 7.0ACTION SUGGESTED> 7.0 Hemoglobin [Mass/volume] in Bloodon 42-96-0271Dzaxuuommh (Bld) [Mass/Vol] Hemoglobin [Mass/volume] in Blood12.0-16.0[facility] Hemoglobin (Bld) [Mass/Vol]13.3 g/dL12.0-16.0[facility] - Chemistry and Chemistry - challengeon 74-11-3991Dlrnfls [Mass/Vol] 3.5 g/dL3.4-5.0[facility] HospitalALP [Catalytic activity/Vol]103 U/W83-870CfyyesbmaGood Samaritan HospitalALT [Catalytic activity/Vol]25 U/L 14-59[facility] HospitalAST [Catalytic activity/Vol]16 U/L15-37 [facility] HospitalBilirubin [Mass/Vol]0.9 mg/dL0.2-1.0[facility] HospitalCalcium [Mass/Vol]9.6 mg/dL8.5-10.1FParkwood HospitalChloride [Moles/Vol]103 mmol/I19-080RnhorhycrGood Samaritan HospitalCholesterol [Mass/Vol]140 mg/dL<=200[facility] Cholesterol in HDL [Mass/Vol]78 mg/lZFdpj54-30QmxvjqnlsGood Samaritan Hospital Comment on above:> or =60 mg/dl - LOW CARDIOVASCULAR RISK<40 mg/dl - HIGH CARDIOVASCULAR RISKCO2 [Moles/Vol]30.8 mmol/L21.0-32.0[facility] HospitalCreatinine [Mass/Vol]0.80 mg/dL0.55-1.02[facility] GFR/1.73 sq M.predicted MDRD (S/P/Bld) [Vol rate/Area]mL/min/{1.73_m2}>=60 mL/min/1.73m 2FParkwood HospitalGlucose [Mass/Vol]123 mg/dLHigh 74-106[facility] HospitalPotassium [Moles/Vol]4.3 mmol/L3.5-5.1 [facility] HospitalProtein [Mass/Vol]7.0 g/dL6.4-8.2FCleveland Clinic Hillcrest Hospitalodium [Moles/Vol]142 mmol/H837-142WdoirtelzGood Samaritan HospitalTriglyceride [Mass/Vol]50 mg/dL<=150Good [facility] HospitalTSH Qn0.678 m[IU]/L0.358-3.740[facility] HospitalUrea nitrogen [Mass/Vol]16.0 mg/dL7.0-18.0[facility] HospitalUrea nitrogen/Creatinine [Mass ratio]20.0 mg/mgGood Samaritan Hospital Laboratory - Hematology and Cell countson 41-00-9232Bmihmxki granulocytes/100 WBC (Bld)0.6 %High0.0-0.5FParkwood HospitalLeukocytes [#/volume] corrected for nucleated erythrocytes in Blood by Automated counon 92-76-8295XJP corrected for nucl RBC Auto (Bld) [#/Vol]Leukocytes [#/volume] corrected for nucleated erythrocytes in Blood by Automated coun4.0-11.0[facility] HospitalWBC corrected for nucl RBC Auto (Bld) [#/Vol]5.4 10 3/uL4.0-11.0 [facility] HospitalLymphocytes Auto (Bld) [#/Vol]on 04-18-2025 Lymphocytes (Bld) [#/Vol]Lymphocytes [#/volume] in Blood by Automated countLow 1.2-3.8[facility] HospitalLymphocytes (Bld) [#/Vol]0.7 10 3/uLLow 1.2-3.8[facility] HospitalLymphocytes/100 WBC Auto (Bld)on 98-76-8969Fjioqidbhhn/100 WBC (Bld)Lymphocytes/100 leukocytes in Blood by Automated bwnpbAxb93.5-60.0[facility] HospitalLymphocytes/100 WBC (Bld)13.5 %Low20.5-60.0[facility] CenterH Auto (RBC) [Entitic mass]on 78-25-4571ZVA (RBC) [Entitic mass]MCH [Entitic mass] by Automated count 26.7-34.0[facility] (RBC) [Entitic mass]29.2 pg 26.7-34.0[facility] HospitalMCHC Auto (RBC) [Mass/Vol]on 13-84-9037WGMP (RBC) [Mass/Vol]MCHC [Mass/volume] by Automated count29.9-35.2 [facility] CenterHC (RBC) [Mass/Vol]32.3 g/dL29.9-35.2 [facility] HospitalMCV Auto (RBC) [Entitic vol]on 32-54-0222CTK (RBC) [Entitic vol]MCV [Entitic volume] by Automated count81.0-99.0[facility] CenterV (RBC) [Entitic vol]90.5 fL81.0-99.0[facility] HospitalMicroalbumin [Mass/volume] in Urineon 05-79-4538Ecdyhmu DL <= 20 mg/L (U) [Mass/Vol]Microalbumin [Mass/volume] in Urine<=30.0[facility] HospitalAlbumin DL <= 20 mg/L (U) [Mass/Vol]2.2 mg/dL<=30.0[facility] HospitalMonocytes Auto (Bld) [#/Vol]on 76-51-1801Fiygqjtfa (Bld) [#/Vol]Automated blood monocyte count0.3-0.8[facility] Monocytes (Bld) [#/Vol]0.5 10 3/uL0.3-0.8[facility] Monocytes/100 WBC Auto (Bld)on 18-54-9727Jppnkxnzz/100 WBC (Bld)Automated monocyte %1.7-12.0[facility] HospitalMonocytes/100 WBC (Bld)8.3 % 1.7-12.0[facility] HospitalNeutrophils Auto (Bld) [#/Vol]on 05-40-2069Mxkfrtvdzti (Bld) [#/Vol]Neutrophils [#/volume] in Blood by Automated count1.4-6.5FParkwood HospitalNeutrophils (Bld) [#/Vol]4.1 10 3/uL1.4-6.5FParkwood HospitalNeutrophils/100 WBC Auto (Bld)on 47-16-4085Xwvldmfqcsj/100 WBC (Bld)Automated neutrophil %High43.0-75.0[facility] HospitalNeutrophils/100 WBC (Bld)75.7 %High43.0-75.0[facility] HospitalNo Panel Informationon 83-40-1730Dqzzj Random Creatinine 49.06 mg/dL20.00-300.00[facility] HospitalEosinophils # (Auto)0.1 10 3/uL0.0-0.7FParkwood HospitalImmature Granulocyte # (Auto)0.03 10 3/uL0.00-0.03[facility] HospitalPlatelet mean volume Auto (Bld) [Entitic vol]on 20-78-7831Uizemjde mean volume (Bld) [Entitic vol]Platelet mean volume [Entitic volume] in Blood by Automated count9.5-13.5FParkwood HospitalPlatelet mean volume (Bld) [Entitic vol]10.2 fL9.5-13.5 [facility] HospitalPlatelets Auto (Bld) [#/Vol]on 04-18-2025 Platelets (Bld) [#/Vol]Platelets [#/volume] in Blood by Automated tigmf043-192 [facility] HospitalPlatelets (Bld) [#/Vol]194 10 3/eO266-839 [facility] HospitalRB Auto (Bld) [#/Vol]on 01-63-1333VZH (d) [#/Vol]Erythrocytes [#/volume] in Blood by Automated count4.20-5.40[facility] (d) [#/Vol]4.55 10 6/uL4.20-5.40[facility] Hospitalerum or plasma albumin/globulin mass ratioon 04-18-2025 Albumin/Globulin [Mass ratio]Serum or plasma albumin/globulin mass ratio [facility] HospitalAlbumin/Globulin [Mass ratio]1.0 {ratio} [facility] Charles Hospitalerum or plasma anion gap determinationon 40-00-8067Tqegm gap [Moles/Vol]Serum or plasma anion gap determinationGood Samaritan HospitalAnion gap [Moles/Vol]12.5 mmol/LFCleveland Clinic Hillcrest Hospitalerum or plasma total cholesterol/high density lipoprotein (HDL) cholesterol mass stephane 94-39-6395Ewdssleoyzl.total/Cholesterol in HDL [Mass ratio]Serum or plasma total cholesterol/high density lipoprotein (HDL) cholesterol mass ratGood Samaritan HospitalComment on above:3.3 - 4.4 LOW RISK4.4 - 7.1 AVERAGE RISK7.1 - 11.0 MODERATE RISK>11.0 HIGH RISK Cholesterol.total/Cholesterol in HDL [Mass ratio]1.8 {ratio}[facility] Samaritan HospitalComment on above:3.3 - 4.4 LOW RISK4.4 - 7.1 AVERAGE RISK7.1 - 11.0 MODERATE RISK>11.0 HIGH RISKUrine microalbumin/creatinine mass ratioon 22-45-4238Kuusgux/Creatinine DL <= 20 mg/L (U) [Mass ratio]Urine microalbumin/creatinine mass ratioHigh0.0-29.9[facility] Comment on above:NO MICROALBUMINURIA 0-29 MG/GCLINICAL MICROALBUMINURIA 30-300 MG/GMACROALBUMINURIA >300 MG/GAlbumin/Creatinine DL <= 20 mg/L (U) [Mass ratio] 44.8 mg/gHigh0.0-29.9[facility]itan HospitalComment on above:NO MICROALBUMINURIA 0-29 MG/GCLINICAL MICROALBUMINURIA 30-300 MG/GMACROALBUMINURIA >300 MG/GGastroenterology Office/Clinic Noteon 34-43-8612Vofanhsbiybmzacd Office/Clinic NoteGastroenterology Office/Clinic Note Chief Complaint 3 [...] mm Hg 3077F 2. Chronic anticoagulation (Z79.01: terminologist (current) use of anticoagulants) 3. Redundant colon [...] days ago Toba (more content not included)... [facility] HealthComment on above:Result Comment: Electronically Signed By: Carmen Goss MA S\.br\Date and Time Signed: 04/11/25 10:07 EDT Ambulatory Visit Summaryon 90-46-8935Tierwtnhho Visit SummaryAmbulatory Visit Summary SANDRA TAVAREZ :1940 [...] you for choosing us for your care. [facility] HealthAmbulatory Visit Summaryon 81-38-7607Ssbiwvolkf Visit SummaryAmbulatory Visit Summary SANDRA TAVAREZ :1940 Visit Date:02/26/2025 Ambulatory Visit Instructions Your Care Team Attending Physician - GEORGE JENNINGS, Taye Lopez Primary Care Physician - ROBERT AVIL DO This Is Your Medications List atorvastatin [...] you for choosing us for your care. [facility] HealthINR in Platelet poor plasma by Coagulation assayOrdered By: Michael Dunaway on 71-73-7291ITJ Coag (PPP) [Relative time]INR in Platelet poor plasma by Coagulation assayGood Samaritan HospitalComment on above:INR Therapeutic Range A) Pre- and Peroperative OAT started two weeks before surgery. NOT HIP SURGERY: 1.5 - 2.5 HIP SURGERY: 2 - 3B) Primary and secondary prevention of venous THROMBOSIS: 2 - 3C) Active venous thrombosis, pulmonary embolismand prevention of recurrent venous thrombosis: 2 - 3D) Prevention of arterial thromboembolismincluding patients with mechanical heart valves: 3 - 4.5Partial Thromboplastin Timeon 23-40-9309gVUD Coag (Bld) [Time]29.0 fOiquwa78.1-36.5The [facility] Physician GroupComment on above:Result Comment: A hematocrit value greater than 55% may lead to inaccurate results in coagulation testing. Patients having hematocrit values >55% require a special collection tube for coagulation studies. Please contact the laboratory at [phone] for redraw instructions. PERFORMED BY: [address] [address] PATHOLOGIST PIN STICKER ESDRAS MOREL M.D.Performed By: #### PT, PTT #### [address] [address] USAProthrombin Time INRon 74-82-2148UEU Coag (PPP) [Relative time]1.1 {INR}NormalThe [facility]health Hendersonville Physician GroupComment on above:Result Comment: INR Therapeutic [...] - 4.5Performed By: #### PT, PTT #### [facility] [address] [place] [address] USAPT Coag (PPP) [Time]13.1 sHigh9.0-12.9The [facility] Physician GroupComment on above:Result Comment: A hematocrit value greater than 55% may lead to inaccurate results in coagulation testing. Patients having hematocrit values >55% require a special collection tube for coagulation studies. Please contact the laboratory at [phone] for redraw instructions.Performed By: #### PT, PTT #### [facility] [address] [place] [address] USAProthrombin time (PT)Ordered By: Michael Dunaway on 12-26-2024 PT Coag (PPP) [Time]Prothrombin time (PT)High9.0-12.9[facility] HospitalComment on above:A hematocrit value greater than 55% may lead to inaccurate results in coagulation testing. Patientshaving hematocrit values >55% require a special collection tube for coagulation studies. Please contact the laboratory at [phone] for redraw instructions.aPTT in Platelet poor plasma by Coagulation assayOrdered By: Michael Dunaway on 28-27-4531jLBK Coag (PPP) [Time] Activated partial thromboplastin time (aPTT) in platelet poor plasma by coagulation a25.1-36.5FParkwood HospitalComment on above:A hematocrit value greater than 55% may lead to inaccurate results in coagulation testing. Patientshaving hematocrit values >55% require a special collection tube for coagulation studies. Please contact the laboratory at [phone] for redraw instructions.INR in Platelet poor plasma by Coagulation assayOrdered By: Michael Dunaway on 41-12-5572OPO Coag (PPP) [Relative time]INR in Platelet poor plasma by Coagulation assayGood Samaritan HospitalComment on above:INR Therapeutic Range A) Pre- and Peroperative OAT started two weeks before surgery. NOT HIP SURGERY: 1.5 - 2.5 HIP SURGERY: 2 - 3B) Primary and secondary prevention of venous THROMBOSIS: 2 - 3C) Active venous thrombosis, pulmonary embolismand prevention of recurrent venous thrombosis: 2 - 3D) Prevention of arterial thromboembolismincluding patients with mechanical heart valves: 3 - 4.5 Prothrombin Time INRon 46-61-0074XSH Coag (PPP) [Relative time]1.6 {INR}Normal The [facility] Physician [facility] Health CenterComment on above:Result Comment: INR Therapeutic Range A) [...] heart valves: 3 - 4.5 PERFORMED BY: [place] [address] PATHOLOGIST PIN STICKER ESDRAS MOREL M.D.Performed By: #### PT #### [facility] [address] [place], [place] [address] USAPT Coag (PPP) [Time]18.8 sHigh9.0-12.9The [facility]ician [facility] Health CenterComment on above:Result Comment: A hematocrit value greater than 55% may lead to inaccurate results in coagulation testing. Patients having hematocrit values >55% require a special collection tube for coagulation studies. Please contact the laboratory at [phone] for redraw instructions.Performed By: #### PT #### [facility] [address] [place] [address] USAProthrombin time (PT)Ordered By: Michael Dunaway on 12-24-2024 PT Coag (PPP) [Time]Prothrombin time (PT)High9.0-12.9[facility]itan HospitalComment on above:A hematocrit value greater than 55% may lead to inaccurate results in coagulation testing. Patientshaving hematocrit values >55% require a special collection tube for coagulation studies. Please contact the laboratory at [phone] for redraw instructions.Basophils Auto (Bld) [#/Vol] on 31-79-7320Pjqvkawro (Bld) [#/Vol]Automated basophil count0.0-0.1FParkwood HospitalBasophils/100 WBC Auto (Bld)on 60-43-1538Rouldelzw/100 WBC (Bld)Automated basophil %0.2-2.0[facility] Eosinophils/100 WBC Auto (Bld)on 88-30-7779Zpuhdmdfnlq/100 WBC (Bld)Automated eosinophil %0.9-7.0[facility]itan HospitalErythrocyte distribution width Auto (RBC) [Ratio]on 25-52-6473Toffhfxbqmn distribution width (RBC) [Ratio]Erythrocyte distribution width [Ratio] by Automated count11.0-15.0 [facility] HospitalGlucose mean value [Mass/volume] in Blood Estimated from glycated hemoglobinon 71-40-1626Rkmzqcj glucose Estimated from glycated hemoglobin (Bld) [Mass/Vol]Glucose mean value [Mass/volume] in Blood Estimated from glycated hemoglobinGood Samaritan HospitalHematocrit Auto (Bld) [Volume fraction]on 55-21-6097Zmgsfzdktc (Bld) [Volume fraction] Hematocrit [Volume Fraction] of Blood by Automated count36.0-48.0[facility]itan HospitalHemoglobin [Mass/volume] in Bloodon 10-09-6945Jfmkaihoqm (Bld) [Mass/Vol]Hemoglobin [Mass/volume] in Blood12.0-16.0[facility] HospitalLaboratory - Chemistry and Chemistry - challengeon 12-12-2024 Ferritin [Mass/Vol]39.0 ng/mL8.0-252.0[facility] Laboratory - Hematology and Cell countson 43-93-2622JtK4f (Bld) [Mass fraction] 6.5 %High4.5-6.2FParkwood HospitalComment on above:ADA RECOMMENDED LIMIT 4.0 - 6.0ADA THERAPEUTIC TARGET < 7.0ACTION SUGGESTED> 7.0 Immature granulocytes/100 WBC (Bld)0.4 %0.0-0.5FParkwood Hospital Leukocytes [#/volume] corrected for nucleated erythrocytes in Blood by Automated counon 45-92-3283NXP corrected for nucl RBC Auto (Bld) [#/Vol]Leukocytes [#/volume] corrected for nucleated erythrocytes in Blood by Automated coun 4.0-11.0[facility] Samaritan HospitalLymphocytes Auto (Bld) [#/Vol]on 68-05-9530Jewuvamdptn (Bld) [#/Vol]Lymphocytes [#/volume] in Blood by Automated countLow1.2-3.8Good [facility]itan HospitalLymphocytes/100 WBC Auto (Bld)on 22-77-9501Pufkxvryvzl/100 WBC (Bld)Lymphocytes/100 leukocytes in Blood by Automated mzrkeKvc13.5-60.0[facility] CenterH Auto (RBC) [Entitic mass]on 78-56-7086SRK (RBC) [Entitic mass]MCH [Entitic mass] by Automated count26.7-34.0[facility]aritan HospitalMCHC Auto (RBC) [Mass/Vol]on 05-02-2486XHPB (RBC) [Mass/Vol]MCHC [Mass/volume] by Automated count29.9-35.2FParkwood HospitalMCV Auto (RBC) [Entitic vol]on 84-58-0375ZTF (RBC) [Entitic vol]MCV [Entitic volume] by Automated count 81.0-99.0[facility]itan HospitalMonocytes Auto (Bld) [#/Vol]on 99-57-8309Ytcfxfmne (Bld) [#/Vol]Automated blood monocyte count0.3-0.8[facility]itan HospitalMonocytes/100 WBC Auto (Bld)on 06-58-8825Wcnykzzkx/100 WBC (Bld)Automated monocyte %1.7-12.0[facility] Neutrophils Auto (Bld) [#/Vol]on 66-86-7782Oamdaedvzxu (Bld) [#/Vol]Neutrophils [#/volume] in Blood by Automated count1.4-6.5FParkwood Hospital Neutrophils/100 WBC Auto (Bld)on 74-29-9938Zbaezjytpof/100 WBC (Bld)Automated neutrophil %High43.0-75.0[facility]itan HospitalNo Panel Informationon 38-43-6676Yvgzswvnnyu # (Auto)0.1 10 3/uL0.0-0.7FParkwood HospitalImmature Granulocyte # (Auto)0.02 10 3/uL0.00-0.03[facility]itan HospitalPlatelet mean volume Auto (Bld) [Entitic vol]on 39-54-3337Cgpfqiid mean volume (Bld) [Entitic vol]Platelet mean volume [Entitic volume] in Blood by Automated count9.5-13.5FParkwood HospitalPlatelets Auto (Bld) [#/Vol]on 40-32-5006Yzdsrqike (Bld) [#/Vol]Platelets [#/volume] in Blood by Automated awllc542-249IdfsxlkwuGood Samaritan HospitalRBC Auto (Bld) [#/Vol]on 38-54-5599DPN (Bld) [#/Vol]Erythrocytes [#/volume] in Blood by Automated count 4.20-5.40Good Samaritan HospitalINR in Platelet poor plasma by Coagulation assayOrdered By: Michael Dunaway on 91-29-6304OUP Coag (PPP) [Relative time]1.3 {INR}NormalGood Samaritan HospitalComment on above:INR Therapeutic Range A) Pre- and [...] [facility] [address] [place] [address] PATHOLOGIST PIN STICKER HERMELINDO BLUM M.D.Performed By: #### PT #### [facility] [address] [place] [address] USAProthrombin time (PT)Ordered By: Michael Dunaway on 08-10-2024 PT Coag (PPP) [Time]15.1 sHigh9.0-12.9[facility] HospitalComment on above:A hematocrit value greater than 55% may lead to inaccurate results in coagulation testing. Patientshaving hematocrit values >55% require a special collection tube for coagulation studies. Please contact the laboratory at [phone] for redraw instructions.Result Comment: A hematocrit value greater than 55% may lead to inaccurate results in coagulation testing. Patients having hematocrit values >55% require a special collection tube for coagulation studies. Please contact the laboratory at [phone] for redraw instructions.Performed By: #### PT #### [address] [address] USAINR in Platelet poor plasma by Coagulation assayOrdered By: Michael Dunaway on 60-10-8823PRT Coag (PPP) [Relative time]1.7 {INR}Normal [facility] HospitalComment on above:INR Therapeutic Range A) Pre- and [...] valves: 3 - 4.5 PERFORMED BY: [address] [address] PATHOLOGIST PIN STICKER HERMELINDO BLUM M.D.Performed By: #### PT #### [address] [address] USAProthrombin time (PT)Ordered By: Michael Dunaway on 08-09-2024 PT Coag (PPP) [Time]19.0 sHigh9.0-12.9[facility]itan HospitalComment on above:A hematocrit value greater than 55% may lead to inaccurate results in coagulation testing. Patientshaving hematocrit values >55% require a special collection tube for coagulation studies. Please contact the laboratory at [phone] for redraw instructions.Result Comment: A hematocrit value greater than 55% may lead to inaccurate results in coagulation testing. Patients having hematocrit values >55% require a special collection tube for coagulation studies. Please contact the laboratory at [phone] for redraw instructions.Performed By: #### PT #### [address] [address] USAMR lumbar spine wo conon 37-62-9334FG lumbar spine wo con [facility] [place] [address] [place] [address] MRI Report Signed Patient: Sandra Tavarez MR#: [id number] 7 : 1940 Acct:[id number] Age/Sex: 83 / F ADM Date: 06/15/24 Loc: Room: Type: [facility] Attending Dr: Michael Dunaway MD Copies [...] Tex Diaz M.D.06/15/2024 8:35 PM Dictation Location: [place] [address] Transcribed By: [facility] 06/15/242034 Dictated By: Tex Diaz II, MD 06/15/242025 Signed By: 06/15/242034NoOur Community Hospital Physician GroupINR in Platelet poor plasma by Coagulation assayon 67-85-4492KDH Coag (PPP) [Relative time]1.36 {INR}[facility] Sam[facility]itan HospitalComment on above:DESIRED INR:2.0-3.0 CONDITIONS NOT LISTED BELOW2.5-3.5 FOR PROSTHETIC HEART VALVE REPLACEMENT2.5-3.5 RECURRENT THROMBOSISProthrombin time (PT)on 66-79-6946GV Coag (PPP) [Time]14.0 sHigh 9.0-11.6FParkwood HospitalXR pelvis 1-2Von 91-68-4930AJ pelvis 1-2[facility] [address] XRay Report Signed Patient: Sandra Tavarez MR#: [id number] 7 : 1940 Acct:[id number] Age/Sex: 83 / F ADM Date: 05/07/24 Loc: XD Room: Type: PRE CLI Attending Dr: Michael Dunaway MD Copies to: Michael Dunaway MD Ordering Provider: Michael Dunaway MD Date of Service: 05/09/24 XR/XR pelvis 1-2V: M70.70 - Other bursitis of hip, unspecified hip ([id number]) XR/XR lumbar spine AP/LAT/FLX/EXT: M47.817 - Spondylosis without myelopathy or radiculopathy... ([id number]) XR/XR sacrum coccyx min 2V: M47.818 - [...] D.OKen05/09/2024 3:59 PM Dictation Location: [place] [address] Transcribed By: [facility] 05/09/24 1559 Dictated By: Jaspreet Orozco Jr, DO 05/09/24 1556 Signed By: 05/09/24 1559[facility] Physician GroupINR in Platelet poor plasma by Coagulation assayOrdered By: Michael Dunaway on 70-43-4043QZG Coag (PPP) [Relative time]2.0 {INR}[facility] HospitalComment on above:INR Therapeutic Range A) Pre- and [...] [facility] [address] [place] [address] PATHOLOGIST PIN STICKER HERMELINDO BLUM M.D.Performed By: #### PT #### [facility] [address] [place] [address] USAProthrombin time (PT)Ordered By: Michael Dunaway on 05-07-2024 PT Coag (PPP) [Time]22.3 sHigh9.0-12.9[facility] HospitalComment on above:A hematocrit value greater than 55% may lead to inaccurate results in coagulation testing. Patientshaving hematocrit values >55% require a special collection tube for coagulation studies. Please contact the laboratory at [phone] for redraw instructions.Result Comment: A hematocrit value greater than 55% may lead to inaccurate results in coagulation testing. Patients having hematocrit values >55% require a special collection tube for coagulation studies. Please contact the laboratory at [phone] for redraw instructions.Performed By: #### PT #### [facility] [address] [place] [address] USABasophils Auto (Bld) [#/Vol]on 89-76-0474Raroaneuw (Bld) [#/Vol]0.0 10 3/uL0.0-0.1FParkwood HospitalBasophils/100 WBC Auto (Bld)on 13-59-6355Zqhcuavvs/100 WBC (Bld)0.7 %0.2-2.0[facility] HospitalCholesterol in LDL Calc [Mass/Vol]on 57-22-4275Xiykddnnobq in LDL [Mass/Vol]43.0 mg/dLGood Samaritan HospitalComment on above:<100 mg/dl BBUWZVO743-277 mg/dl NEAR OR ABOVE UWMVIQF147-385 mg/dl BORDERLINE WRVL613-959 mg/dl HIGH>190 mg/dl VERY HIGHCholesterol in VLDL Calc [Mass/Vol]on 04-30-2024 Cholesterol in VLDL [Mass/Vol]10.6 mg/dLGood Samaritan Hospital Eosinophils/100 WBC Auto (Bld)on 17-53-0647Osnnsbgctop/100 WBC (Bld)1.9 %0.9-7.0 [facility] HospitalErythrocyte distribution width Auto (RBC) [Ratio]on 20-48-1863Xsjtvahtzeu distribution width (RBC) [Ratio]13.6 %11.0-15.0 [facility] HospitalEstimated glomerular filtration rate (GFR) non- Americanon 78-37-8691ZDC/1.73 sq M.predicted among non-blacks MDRD (S/P/Bld) [Vol rate/Area]mL/min/{1.73_m2}>=60[facility] Globulin Calc (S) [Mass/Vol]on 31-09-6063Ymxhfgim (S) [Mass/Vol]3.4 g/dL [facility] HospitalGlucose mean value [Mass/volume] in Blood Estimated from glycated hemoglobinon 79-09-2063Jqfcdkt glucose Estimated from glycated hemoglobin (Bld) [Mass/Vol]137 mg/dLGood Samaritan Hospital Hematocrit Auto (Bld) [Volume fraction]on 58-59-6103Onmrjisljk (Bld) [Volume fraction]39.8 %36.0-48.0[facility] HospitalHemoglobin [Mass/volume] in Bloodon 86-21-8476Qhgtzkshqr (Bld) [Mass/Vol]13.0 g/dL12.0-16.0 [facility] HospitalLaboratory - Chemistry and Chemistry - challengeon 25-84-8335Cctlvpi [Mass/Vol]3.5 g/dL3.4-5.0[facility] HospitalALP [Catalytic activity/Vol]89 U/N91-535XtjohapxuGood Samaritan HospitalALT [Catalytic activity/Vol]25 U/O31-33HlfskmiwtGood Samaritan Hospital AST [Catalytic activity/Vol]21 U/J97-76AludfiqzkGood Samaritan Hospital Bilirubin [Mass/Vol]1.1 mg/dLHigh0.2-1.0[facility] HospitalCalcium [Mass/Vol]9.3 mg/dL8.5-10.1FParkwood HospitalChloride [Moles/Vol]105 mmol/E06-409MfgjxrnvuGood Samaritan HospitalCholesterol [Mass/Vol]123 mg/dL<=200Good [facility]itan HospitalCholesterol in HDL [Mass/Vol]70 mg/gWIcrq78-46CmegnjxteGood Samaritan HospitalComment on above:> or =60 mg/dl - LOW CARDIOVASCULAR RISK<40 mg/dl - HIGH CARDIOVASCULAR RISKCO2 [Moles/Vol]26.1 mmol/L21.0-32.0[facility] HospitalCreatinine [Mass/Vol]0.71 mg/dL0.55-1.02Good [facility]itan HospitalGFR/1.73 sq M.predicted MDRD (S/P/Bld) [Vol rate/Area]mL/min/{1.73_m2}>=60Good [facility]itan HospitalGlucose [Mass/Vol]96 mg/oK82-132XafwnsnwdGood Samaritan Hospital Potassium [Moles/Vol]4.0 mmol/L3.5-5.1FParkwood HospitalProtein [Mass/Vol]6.9 g/dL6.4-8.2FCleveland Clinic Hillcrest Hospitalodium [Moles/Vol]141 mmol/U050-280DmzbpibrbGood Samaritan HospitalTriglyceride [Mass/Vol]53 mg/dL <=150Good Samaritan HospitalTSH Qn0.705 m[IU]/L0.358-3.740Good Sam[facility]itan HospitalUrea nitrogen [Mass/Vol]16.0 mg/dL7.0-18.0[facility]itan HospitalUrea nitrogen/Creatinine [Mass ratio]22.5 mg/mgGood Samaritan HospitalLaboratory - Hematology and Cell countson 84-67-4255OjL8a (Bld) [Mass fraction]6.4 %High4.5-6.2FParkwood HospitalComment on above:ADA RECOMMENDED LIMIT 4.0 - 6.0ADA THERAPEUTIC TARGET < 7.0ACTION SUGGESTED> 7.0Immature granulocytes/100 WBC (Bld)0.4 %0.0-0.5FParkwood HospitalLeukocytes [#/volume] corrected for nucleated erythrocytes in Blood by Automated counon 25-46-5237CPM corrected for nucl RBC Auto (Bld) [#/Vol]5.3 10 3/uL4.0-11.0[facility]itan HospitalLymphocytes Auto (Bld) [#/Vol]on 16-34-2319Rraylkoxgzh (Bld) [#/Vol]1.0 10 3/uLLow1.2-3.8 [facility] HospitalLymphocytes/100 WBC Auto (Bld)on 04-30-2024 Lymphocytes/100 WBC (Bld)17.8 %Low20.5-60.0[facility] CenterH Auto (RBC) [Entitic mass]on 49-49-0169BJU (RBC) [Entitic mass]30.1 pg26.7-34.0 [facility] CenterHC Auto (RBC) [Mass/Vol]on 12-22-2441TYPE (RBC) [Mass/Vol]32.7 g/dL29.9-35.2FParkwood HospitalMCV Auto (RBC) [Entitic vol]on 37-25-2643JSI (RBC) [Entitic vol]92.1 fL81.0-99.0[facility] HospitalMonocytes Auto (Bld) [#/Vol]on 09-38-0570Ofuzidztr (Bld) [#/Vol]0.6 10 3/uL0.3-0.8[facility]itan HospitalMonocytes/100 WBC Auto (Bld)on 86-13-7075Saontbbtm/100 WBC (Bld)10.3 %1.7-12.0[facility]itan HospitalNeutrophils Auto (Bld) [#/Vol]on 10-96-5985Dvvhqxclkyw (Bld) [#/Vol]3.7 10 3/uL1.4-6.5FParkwood HospitalNeutrophils/100 WBC Auto (Bld)on 59-65-3121Ctfzobqsyfz/100 WBC (Bld)68.9 %43.0-75.0[facility] HospitalNo Panel Informationon 63-48-0100Xaqmbklkjpu # (Auto)0.1 10 3/uL0.0-0.7FParkwood HospitalImmature Granulocyte # (Auto)0.02 10 3/uL0.00-0.03[facility]itan HospitalPlatelet mean volume Auto (Bld) [Entitic vol]on 11-23-0549Aakjjlgj mean volume (Bld) [Entitic vol]10.5 fL 9.5-13.5FParkwood HospitalPlatelets Auto (Bld) [#/Vol]on 62-31-9222Yumpuzjle (Bld) [#/Vol]188 10 3/zY274-890CgidtvvqfGood Samaritan HospitalRBC Auto (Bld) [#/Vol]on 34-93-7987ODX (Bld) [#/Vol]4.32 10 6/uL4.20-5.[address] Charles Hospitalerum or plasma albumin/globulin mass ratioon 35-12-9882Osklqgz/Globulin [Mass ratio]1.0 {ratio}[facility] Charles Hospitalerum or plasma anion gap determinationon 87-69-9555Kebsw gap [Moles/Vol] 13.9 mmol/LFCleveland Clinic Hillcrest Hospitalerum or plasma total cholesterol/high density lipoprotein (HDL) cholesterol mass stephane 04-30-2024 Cholesterol.total/Cholesterol in HDL [Mass ratio]1.8 {ratio}[facility] HospitalComment on above:3.3 - 4.4 LOW RISK4.4 - 7.1 AVERAGE RISK7.1 - 11.0 MODERATE RISK>11.0 HIGH RISKBacteria identified Aer cx Nom (Unsp spec) Ordered By: Juancarlos Campbell on 74-14-6789Eakxwjxdctg Wound CulturePseudomonas aeruginosaMercy Health St. Charles Hospitaluperficial Wound Cultureon 37-83-6915Ipijjlnkhdp Wound CultureLT POSTERIOR ANKLE AND LEFT LEG [...] RESISTANT TO ALL B-LACTAM DRUGS. PERFORMED BY: [place] [address] PATHOLOGIST PIN STICKER HERMELINDO BLUM M.D.[facility] Physician GroupComment on above:Performed By: #### CUSUP #### [place] [id number] USAMG MAMM SCREEN 3D KRISTOFER CADon 01-84-4445FC MAMM SCREEN 3D KRISTOFER CADPatient: SANDRA TAVAREZ Exam Date: 04/07/2023 : 1940 Gender:F Ordering : DR ROBERT VAIL D.O. Admission #: [id number] Family : Order #: [id number] CLICK HERE TO VIEW EXAM RADIOLOGY REPORT [...] leukemia cancer at age 43. LOCATION: [facility] BREAST COMPOSITION: Scattered areas fibroglandular density. [...] by: Nida Alvarez M.D. on 04/07/2023 at 14:36NormalThParkview Health Bryan Hospital AUTO DIFFon 28-65-7841OXKD #0.1 103/ulNormal0.0-0.1[facility] HospitalComment on above:Performed By: #### CBC ####[facility] [address] [place], [place] [address]Dr.Gaurav ChangBasophils/100 WBC (Bld)0.9 %Normal0.2-2.0[facility] HospitalComment on above:Performed By: #### CBC ####[facility] [address] [place], [place] [address]Dr.Yilan ChangEO #0.1 103/ulNormal0.0-0.7The [facility] HospitalComaleda e. l[facility] on above:Performed By: #### CBC ####[facility] [address] [place], [place] [address]Dr.Gaurav ChangEosinophils/100 WBC (Bld)1.2 %Normal 0.9-7.0The [facility] HospitalComment on above:Performed By: #### CBC ####[facility] [address] [place], [place] [address]Dr.Gaurav Louis Erythrocyte distribution width (RBC) [Ratio]13.2 %Lfkvva86.0-15.0The [facility] HospitalComment on above:Performed By: #### CBC ####[facility] Q[address] [place], [place] [address]Dr.Gaurav ChangHematocrit (Bld) [Volume fraction]44.1 %Xfjvnt38.0-48.0The [facility] HospitalComment on above:Performed By: #### CBC ####[facility] [address] [place], [place] [address]Dr.Gaurav ChangHemoglobin (Bld) [Mass/Vol]14.7 g/dL Aeejlp83.0-16.0The [facility] HospitalComment on above:Performed By: #### CBC ####[facility] [address] [place] [id number]. Gaurav LouisIG #0.02 10e3/ulNormal0.00-0.03The [facility] HospitalComment on above: Performed By: #### CBC ####[facility] [address] [place] [address]Dr.Gaurav LouisIG %0.4 %Normal0.0-0.5The [facility] District HospitalComment on above:Performed By: #### CBC ####[facility] [address] [address]Dr.Gaurav LouisLYMPH #0.9 103/ulCritically low1.2-3.8The [facility] HospitalComment on above:Performed By: #### CBC ####[facility] [address] [place] [address] [address]Dr.Gaurav LouisLymphocytes/100 WBC (Bld)16.5 %Critically low20.5-60.0The [facility] HospitalComment on above:Performed By: #### CBC ####[facility] [address] [address]Dr.Gaurav LouisMANUAL DIFF REQ NONormalThe [facility] HospitalComment on above:Performed By: #### CBC ####[facility] [address] [place] [address]Dr. Gaurav LouisCREEDMOOR [facility]YCH[facility] (RBC) [Entitic mass]30.7 axSyhlso64.7-34.0The [facility] Comment on above:Performed By: #### CBC ####[facility] Sl[address] [place], [place] [address]Dr.Gaurav LouisHC (RBC) [Mass/Vol]33.3 g/dL Yvkiho05.9-35.2The [facility] HospitalComment on above:Performed By: #### CBC ####[facility] Tnji[address] [place], [place] [address]Dr. Gaurav LouisV (RBC) [Entitic vol]92.1 fQDxyrgl97.0-99.0The [facility] Comment on above:Performed By: #### CBC ####[facility] [address] [address]Dr.Gaurav LouisMONO #0.5 103/ulNormal0.3-0.8 The [facility] on above:Performed By: #### CBC ####[facility] Lcgdcjqz[address] [place], [place] [address]Dr.Gaurav Louis Monocytes/100 WBC (Bld)8.0 %Normal1.7-12.0The [facility] HospitalComment on above: Performed By: #### CBC ####[facility] Upyw[address]os[address] [place], [place] [address]Dr.Violettelan HeribertoNEUT #4.1 103/ulNormal1.4-6.5The [facility] HospitalComment on above:Performed By: #### CBC ####[facility] Dre[address]ke[address] [place], [place] [address]Dr.Gaurav LouisNeutrophils/100 WBC (Bld)73.0 %Dikfdk65.0-75.0The [facility] HospitalComment on above:Performed By: #### CBC ####[facility] Epr[address] [place], [place] [address]Dr.Gaurav LouisPlatelet mean volume (Bld) [Entitic vol]10.0 fLNormal9.5-13.5 The [facility] HospitalComaleda [facility] on above:Performed By: #### CBC ####[facility] Kh[address]rirwft[address] [place], [place] [address]Dr.Violettelan UtpqyTHW046 103/glIyqezs506-788Dok [facility] HospitalComment on above:Performed By: #### CBC ####[facility] Xljjjrxrww[address] [place], [place] [address]Dr. Violettelan ChangRBC4.79 106/ulNormal4.20-5.40The [facility] on above: Performed By: #### CBC ####[facility] Xypttjveis[address] [place], [place] [address]Dr.Violettelan ChangWBC5.6 103/ulNormal4.0-11.0The [facility] HospitalComment on above:Performed By: #### CBC ####[facility] [address]lt[address] [place] [address]Dr.Yilan LouisGLYCOHEMOGLOBIN A1Con [id number] RECOMMENDATIONSEE [facility] CampusCom[facility] on above:Result Comment: ADA RECOMMENDED LIMIT 4.0 - 6.0 ADA THERAPEUTIC TARGET < 7.0 ACTION SUGGESTED > 7.0Performed By: #### A1C #### [facility] [address] [address] [address] Gaurav LouisGlucose [Mass/Vol]148 mg/dLNoBluffton HospitalComment on above:Performed By: #### A1C #### [facility] [address] [address] [address] Gaurav LouisHbA1c (Bld) [Mass fraction]6.8 %Critically high4.5-6.2The [facility] HospitalComment on above:Performed By: #### A1C #### [facility] [address] [address] [address] Gaurav LouisLIPID PROFILEon [id number]-HDL RATIO NORMSEE [facility] CampusCom[facility] on above:Result Comment: 3.3 - 4.4 LOW RISK 4.4 - 7.1 AVERAGE RISK 7.1 - 11.0 MODERATE RISK >11.0 HIGH RISKPerformed By: #### TSH, LIPID, BMP #### [facility] [address] [address] [address] Gaurav LouisCholesterol [Mass/Vol]137 mg/dLNormal<=200The [facility] Comment on above:Performed By: #### TSH, LIPID, BMP #### [facility] [address] [address] [address] Gaurav LouisCholesterol in HDL [Mass/Vol]63 mg/dLCritically dbha87-33Dhl [facility] on above:Performed By: #### TSH, LIPID, BMP #### [facility] [address] [address] [address] Gaurav Pittmanesterol in LDL [Mass/Vol]57.8 mg/dLNoBluffton HospitalComment on above:Performed By: #### TSH, LIPID, BMP #### [facility] [address] [address] [address] Gaurav LouisCholesterol.total/Cholesterol in HDL [Mass ratio]2.2 {ratio} NormalThe [facility] District HospitalComment on above:Performed By: #### TSH, LIPID, BMP #### [facility] [address] [address] [address] Gaurav Amador NORMAL> or = 60 mg/dl - LOW CARDIOVASCULAR RISK <40 mg/dl - HIGH CARDIOVASCULAR RISKNoBluffton HospitalComment on above:Performed By: #### TSH, LIPID, BMP #### [facility] [address] [address] [address] Gaurav LouisLDL CALC NORMALSEE BELOWMercy Health St. Elizabeth Youngstown HospitalComment on above:Result Comment: <100 mg/dl OPTIMAL 100 - 129 mg/dl NEAR OR ABOVE OPTIMAL 130 - 159 mg/dl BORDERLINE HIGH 160 - 189 mg/dl HIGH >190 mg/dl VERY HIGH Performed By: #### TSH, LIPID, BMP #### [facility] [address] [address] [address] Gaurav LouisTriglyceride [Mass/Vol]81 mg/dLNormal<=150The [facility] Comment on above:Performed By: #### TSH, LIPID, BMP #### [facility] [address] [address] [address] Gaurav LouisVLDL CALC16.2 mg/dLNormSt. Rita's HospitalComment on above: Performed By: #### TSH, LIPID, BMP #### [facility] [address] [address] [address] Gaurav LouisMICROALBUMIN, RAND URon 86-28-7962lDNX6.8 mg/LNormal<=30.0The [facility] HospitalComment on above:Performed By: #### MALBR #### [facility] [address] [address] [address] Gaurav LouisPROF CHEM 8 (BAS METB)on 23-28-7855Thtyu gap [Moles/Vol]13.4 mmol/LNormalThe [facility] HospitalComment on above:Performed By: #### TSH, LIPID, BMP #### [facility] [address] [place] [address] Dr. Gaurav LouisCalcium [Mass/Vol]9.7 mg/dLNormal8.5-10.1[facility] Comment on above:Performed By: #### TSH, LIPID, BMP #### [facility] [address] [place] [address] Dr. Gaurav LouisChloride [Moles/Vol]103 mmol/INvnbpw08-568Bcw [facility] Comment on above:Performed By: #### TSH, LIPID, BMP #### [facility] [address] [place] [address] Dr. Gaurav LouisCO2 [Moles/Vol]28.2 mmol/ZUnecoz14.0-32.0The [facility] Comment on above:Performed By: #### TSH, LIPID, BMP #### [facility] [address] [place] [address] Dr. Gaurav LouisCreatinine [Mass/Vol]0.94 mg/dLNormal0.55-1.02The [facility] HospitalComment on above:Performed By: #### TSH, LIPID, BMP #### [facility] [address] [place] [address] Dr. Nolasco ChangEGFR-AF FRENCH>60Normal>=60The [facility] HospitalComment on above:Performed By: #### TSH, LIPID, BMP #### [facility] [address] [place] [address] Dr. Gaurav OntiverosGFR-NON AF ZKEBXEGE63 mL/min/1.50i2Hibfsvfsjz low>=60The [facility] HospitalComment on above:Performed By: #### TSH, LIPID, BMP #### [facility] [address] [place] [address] Dr. Gaurav LouisGlucose [Mass/Vol]155 mg/dLCritically xhst43-748Hqk [facility] HospitalComment on above:Performed By: #### TSH, LIPID, BMP #### [facility] [address] [address] [address] Gaurav LouisPotassium [Moles/Vol]3.6 mmol/LNormal3.5-5.1The [facility] Comment on above:Performed By: #### TSH, LIPID, BMP #### [facility] [address] [address] [address] Gaurav LouisSodium [Moles/Vol]141 mmol/HPnlpqb196-323Rlu [facility] Comment on above:Performed By: #### TSH, LIPID, BMP #### [facility] [address] [address] [address] Gaurav LouisUrea nitrogen [Mass/Vol]19.0 mg/dLCritically high7.0-18.0The [facility] HospitalComment on above:Performed By: #### TSH, LIPID, BMP #### [facility] [address] [place] [address] Dr. Gaurav Taylor nitrogen/Creatinine [Mass ratio]20.2 mg/mgNormalThe [facility] HospitalComment on above:Performed By: #### TSH, LIPID, BMP #### [facility] [address] [place] [address] Dr. Gaurav San 83-93-3226OYC0.784 uIU/mLNormal0.358-3.740The [facility] HospitalComment on above:Performed By: #### TSH, LIPID, BMP #### [facility] [address] [place] [address] Dr. Gaurav Brooks-CoV-2 (COVID-19) RNA LANDEN+probe Ql (Resp)on 09-11-2022 SARS-CoV-2 (COVID-19) RNA LANDEN+probe Ql (Unsp spec)PositiveNort mydeco Other cbc AUTO DIFFon [id number] #0.1 103/ulNormal 0.0-0.1The [facility] HospitalComment on above:Performed By: #### CBC #### [facility] [address] [place] [address] Dr. Yilan ChangBasophils/100 WBC (Bld)0.5 %Normal0.2-2.0[facility] Comment on above:Performed By: #### CBC #### [facility] [address] [place] [address] Dr. Gaurav Pal #0.1 103/ulNormal0.0-0.7The [facility] HospitalComment on above: Performed By: #### CBC #### [facility] [address] [place] [address] Dr. Gaurav Ontiverososinophils/100 WBC (Bld)0.7 %Critically low0.9-7.0The [facility] HospitalComment on above:Performed By: #### CBC #### [facility] [address] [place] [address] Dr. Gaurav Ontiverosrythrocyte distribution width (RBC) [Ratio]22.5 %Critically high 11.0-15.0The [facility] HospitalComment on above:Result Comment: 2+ anisocytosis Performed By: #### CBC #### [facility] [address] [place] [address] Dr. Gaurav LouisHematocrit (Bld) [Volume fraction]41.4 %Riujqa26.0-48.0The [facility] HospitalComment on above:Performed By: #### CBC #### [facility] [address] [place] [address] Dr. Gaurav LousiHemoglobin (Bld) [Mass/Vol]13.4 g/jRQximmp34.0-16.0The [facility] HospitalComment on above:Performed By: #### CBC #### [facility] [address] [place] [address] Dr. Gaurav Pineda #0.04 10e3/ulCritically high0.00-0.03The [facility] Comment on above:Performed By: #### CBC #### [facility] [address] [place] [address] Dr. Gaurav Pineda %0.4 %Normal0.0-0.5The [facility] HospitalComment on above: Performed By: #### CBC #### [facility] [address] [address] [address] Gaurav Sneed #1.1 103/ulCritically low1.2-3.8The [facility] Comment on above:Performed By: #### CBC #### [facility] [address] [address] [address] Gaurav Busbymphocytes/100 WBC (Bld)10.2 %Critically low20.5-60.0The [facility] HospitalComment on above:Performed By: #### CBC #### [facility] [address] [address] [address] Gaurav Tolentino DIFF REQNONormalThe [facility] HospitalComment on above: Performed By: #### CBC #### [facility] [address] [place] [address] Dr. Gaurav Bowden (RBC) [Entitic mass]28.3 joZtraov47.7-34.0The [facility] HospitalComment on above:Performed By: #### CBC #### [facility] [address] [place] [address] Dr. Gaurav Bowden (RBC) [Mass/Vol]32.4 g/sPTizbux72.9-35.2The [facility] HospitalComment on above:Performed By: #### CBC #### [facility] [address] [place] [address] Dr. Gaurav Bowden (RBC) [Entitic vol]87.5 mPLmzetr05.0-99.0The [facility] HospitalComment on above:Performed By: #### CBC #### [facility] [address] [place] [address] Dr. Gaurav Jennings #0.8 103/ulNormal0.3-0.8The [facility] HospitalComment on above:Performed By: #### CBC #### [facility] [address] [place] [address] Dr. Gaurav Ashocytes/100 WBC (Bld)7.3 %Normal1.7-12.0[facility] Comment on above:Performed By: #### CBC #### [facility] [address] [address] [address] Gaurav Bucio #8.4 103/ulCritically high1.4-6.5The [facility] Comment on above:Performed By: #### CBC #### [facility] [address] [place] [address] Dr. Garuav Yusufutrophils/100 WBC (Bld)80.9 %Critically high43.0-75.0The [facility] HospitalComment on above:Performed By: #### CBC #### [facility] [address] [place] [address] Dr. Gaurav LouisPlatelet mean volume (Bld) [Entitic vol]10.0 fLNormal9.5-13.5The [facility] HospitalComment on above:Performed By: #### CBC #### [facility] [address] [place] [address] Dr. Gaurav LouisPLT178 103/xbOsieou407-253Pre [facility] HospitalComment on above: Performed By: #### CBC #### [facility] [address] [place] [address] Dr. Gaurav LouisRBC4.73 106/ulNormal4.20-5.40The [facility] HospitalComment on above:Performed By: #### CBC #### [facility] [address] [place] [address] Dr. Gaurav LouisWBC10.3 103/ulNormal4.0-11.0The [facility] HospitalComment on above:Performed By: #### CBC #### [facility] [address] [place] [address] Dr. Gaurav LouisUS SINGLE QUAD LT LOWERon 70-00-9970FH SINGLE QUAD LT LOWEREXAM: US SINGLE QUAD [...] Electronically authenticated by: NIDA ALVAREZ Date: 2022-04-30 18:10NormOhioHealth [facility] AUTO DIFFon [id number] #0.0 103/ulNormal0.0-0.1The [facility] HospitalComment on above:Performed By: #### CBC #### [facility] [address] [place] [address] Dr. Gaurav LouisBasophils/100 WBC (Bld)0.6 %Normal0.2-2.0The [facility] Comment on above:Performed By: #### CBC #### [facility] [address] [place] [address] Dr. Gaurav Pal #0.1 103/ulNormal0.0-0.7The [facility] HospitalComment on above: Performed By: #### CBC #### [facility] [address] [place] [address] Dr. Gaurav Ontiverososinophils/100 WBC (Bld)1.7 %Normal0.9-7.0The [facility] Comment on above:Performed By: #### CBC #### [facility] [address] [place] [address] Dr. Gaurav Ontiverosrythrocyte distribution width (RBC) [Ratio]21.1 %Critically high 11.0-15.0The [facility] HospitalComment on above:Performed By: #### CBC #### [facility] [address] [place] [address] Dr. Gaurav LouisHematocrit (Bld) [Volume fraction]33.6 %Critically low36.0-48.0 The [facility] HospitalComment on above:Performed By: #### CBC #### [facility] [address] [place] [address] Dr. Gaurav LouisHemoglobin (Bld) [Mass/Vol]10.0 g/dLCritically low12.0-16.0The [facility] HospitalComment on above:Performed By: #### CBC #### [facility] [address] [place] [address] Dr. Gaurav Pineda #0.02 10e3/ulNormal0.00-0.03The [facility] HospitalComment on above:Performed By: #### CBC #### [facility] [address] [place] [address] Dr. Gaurav Pineda %0.4 %Normal0.0-0.5The [facility] HospitalComment on above: Performed By: #### CBC #### [facility] [address] [place] [address] Dr. Gaurav Sneed #1.0 103/ulCritically low1.2-3.8The [facility] Comment on above:Performed By: #### CBC #### [facility] [address] [place] [address] Dr. Gaurav Goddardhocytes/100 WBC (Bld)18.3 %Critically low20.5-60.0The [facility] HospitalComment on above:Performed By: #### CBC #### [facility] [address] [place] [address] Dr. Gaurav Tolentino DIFF REQNONormalThe [facility] HospitalComment on above: Performed By: #### CBC #### [facility] [address] [place] [address] Dr. Gaurav Bruce (RBC) [Entitic mass]22.8 pgCritically low26.7-34.0The [facility] HospitalComment on above:Performed By: #### CBC #### [facility] [address] [place] [address] Dr. Gaurav Bowden (RBC) [Mass/Vol]29.8 g/dLCritically low29.9-35.2The [facility] HospitalComment on above:Performed By: #### CBC #### [facility] [address] [place] [address] Dr. Gaurav Bowden (RBC) [Entitic vol]76.7 fLCritically low81.0-99.0The [facility] HospitalComment on above:Performed By: #### CBC #### [facility] [address] [place] [address] Dr. Gaurav Jennings #0.5 103/ulNormal0.3-0.8The [facility] HospitalComment on above:Performed By: #### CBC #### [facility] [address] [place] [address] Dr. Gaurav Ashocytes/100 WBC (Bld)8.8 %Normal1.7-12.0The [facility] Comment on above:Performed By: #### CBC #### [facility] [address] [place] [address] Dr. Gaurav Bucio #3.8 103/ulNormal1.4-6.5The [facility] HospitalComment on above:Performed By: #### CBC #### [facility] [address] [place] [address] Dr. Gaurav Yusufutrophils/100 WBC (Bld)70.2 %Wccmuu86.0-75.0The [facility] HospitalComment on above:Performed By: #### CBC #### [facility] [address] [place] [address] Dr. Gaurav Goldberg mean volume (Bld) [Entitic vol]9.4 fLCritically low 9.5-13.5The [facility] HospitalComment on above:Performed By: #### CBC #### [facility] [address] [place] [address] Dr. Gaurav LouisPLT226 103/frBkgdgl786-438Ugn [facility] HospitalComment on above: Performed By: #### CBC #### [facility] [address] [place] [address] Dr. Gaurav LouisRBC4.38 106/ulNormal4.20-5.40The [facility] HospitalComment on above:Performed By: #### CBC #### [facility] [address] [place] [address] Dr. Gaurav LouisWBC5.4 103/ulNormal4.0-11.0The [facility] HospitalComment on above: Performed By: #### CBC #### [facility] [address] [place] [address] Dr. Yilan ChangXR ankle LT min 3V*on 45-27-9982FT ankle LT min 3V*[facility] [employer] Other XR ankle LT min 3V*[facility] [employer] Other XR ankle LT min 3V*[address] [facility] mydeco Other XR ankle LT min 3V*LASHONDA Beckett 360[address]Fjkcv mydeco Other XR ankle LT min 3V*[facility] [employer] Other XR ankle LT min 3V*[facility] [employer] Other XR ankle LT min 3V*Patient: Sandra Tavarez MR#: [id number] [employer]de[employer] Other XR ankle LT min 3V*[facility] [employer] Other XR ankle LT min 3V*: 1940 Acct:[id number] [employer] Other XR ankle LT min 3V*Age/Sex: 80 / F ADM Date: 11/07/21 [employer] Other XR ankle LT min 3V*Loc: XDUCLY Room: Type: [facility] [employer] Other XR ankle LT min 3V*Attending Dr: Quita ZUNIGA [employer] Other XR ankle LT min 3V*Ordering Provider: [facility] [employer] Other XR ankle LT min 3V*Date of Service: 11/07/21[employer] Other XR ankle LT min 3V* XR/XR ankle LT min 3V*: Acute left ankle painBraggs mydeco Other XR ankle LT min 3V*Copies to: Quita Simmons, BATTERY SERVICE TECHNICIAN-C [employer] Other XR ankle LT min 3V*XR ankle LT min 3V* 11/07/2021 12:[address] [facility] [employer]deco Other XR ankle LT min 3V*SIGNS AND SYMPTOMS: Pain along the left Achilles and lateral aspect of the calcaneus, limited rangeBraggs [employer]co Other XR ankle LT min 3V*of motionBraggs [employer] Other XR ankle LT min 3V*PROTOCOL: Frontal, lateral, and oblique radiographs of the left ankleBraggs [employer]deco Other XR ankle LT min 3V*COMPARISON: [facility] mydeco Other XR ankle LT min 3V*FINDINGS:[employer] Other XR ankle LT min 3V*The ankle mortise is preserved. There is cortical irregularity along the inferior margin of [facility] Other XR ankle LT min 3V*lateral malleolus which may represent sequelae of a previous avulsive-type injury. There is softBraggs [employer] Other XR ankle LT min 3V*tissue swelling diffusely but greatest along the dorsal soft tissues. There is plantar surfaceBraggs mydeco Other XR ankle LT min 3V*calcaneal spurring. Vascular calcifications are present. Degenerative changes are noted in [employer] Other XR ankle LT min 3V*midfoot.[employer] Other XR ankle LT min 3V* XR/XR ankle LT min 3V*[employer] Other XR ankle LT min 3V*IMPRESSION:[employer] Other XR ankle LT min 3V*No acute displaced fracture.[employer] Other XR ankle LT min 3V*Diffuse soft tissue swelling greatest posteriorly.[employer] Other XR ankle LT min 3V*There is plantar surface calcaneal spurring.[employer] Other XR ankle LT min 3V*Impression dictated by: Tex Diaz M.D.11/07/2021 12:50 [facility] [employer] Other XR ankle LT min 3V*Dictation Location: [place] [address] [employer] Other XR ankle LT min 3V*Transcribed By: [facility] 11/07/21 [facility] [employer] Other XR ankle LT min 3V*Dictated By: Tex Diaz II, MD 11/07/21 1248[employer] Other XR ankle LT min 3V*Signed By:[employer] Other XR ankle LT min 3V*11/07/[address] [place], [place] [address] Other MADF Preoperative Recordon [id number] Preoperative RecordMAGR Pre-Op Record Summary Primary Physician: FERNANDO SILVA Finalized Date/Time: 06/04/20 08:46:37 Pt. Name: SANDRA TAVAREZ/Sex: 1940 FEMALE Med Rec #: [id number] Physician: FERNANDO SILVA Financial #: [id number] Pt. Type: I Room/Bed: [facility] Admit/Disch: 05/23/20 09:44:18 - 05/27/20 15:15:00 Institution: [...] Signatures Signed By: Stacy Pena RN 06/04/20 08:46[facility] Formson [id number] [id number]#1.00[facility] SpringfieldOutside Recordson 49-54-7108[employer] Records [id number]#1.00[facility] Outside [id number]#1.00[facility] CenterProvider Orderson 02-50-8891Nrehvxqg Orders [id number]#1.00[facility] Telemetry Stripson [id number] Strips [id number]#1.00[facility].Auto Diff 1on 81-77-9712Ysrd [place] %13 %High1-[address] [place], [place] [address]Comment on above: Performed By: #### [id number] #### [facility] (DEFAULT) [address] [place] [address]Crrd Abs#0.0 t99Tubifa6.0-0.2MToledo HospitalComment on above:Performed By: #### [id number], [id number], [id number] #### [facility] (DEFAULT) [address] [place] [address] 12089Fhiwhoyae/100 WBC (Bld)0.3 %Normal0.2-2.0[facility] Comment on above:Performed By: #### [id number], 50460934, 6342448 #### [facility] (DEFAULT) [address] [place] [address] 93102Jft Abs#0.1 x27Swxnpi5.0-0.4[facility] HospitalComment on above:Performed By: #### [id number], [id number], [id number] #### [facility] (DEFAULT) [address] [place] [address] 65968Odyzjlytgjt/100 WBC (Bld)1.4 %Normal0.9-4.0[facility] HospitalComment on above:Performed By: #### [id number], 72255037, 5533143 #### [facility] (DEFAULT) [address] [place] [address] 06619Dxdlmkvmnyu (Bld) [#/Vol]1.4 o53Dhuoey7.3-2.9[facility] HospitalComment on above:Performed By: #### [id number], 04789713, 0615686 #### [facility] (DEFAULT) [address] [place] [address] 32804Rgwhztwkdac/100 WBC (Bld)16 %Pdlghu76-07Infnwddj Hospital Comment on above:Performed By: #### [id number], 86105938, 5620971 #### [facility] (DEFAULT) [address] [place] [address] 99680Dzgo Abs#1.1 f97Lxwu6.0-0.8[facility] HospitalComment on above:Performed By: #### [id number], 07498897, 7925767 #### [facility] (DEFAULT) [address] [place] [address] 92940Mjsf Abs#6.1 h91Pxetpr9.5-9.2[facility] HospitalComment on above:Performed By: #### [id number], 79562401, 7335205 #### [facility] (DEFAULT) [address] [place] [address] 41988Djezsiwnfor/100 WBC (Bld)70 %Ceclok08-23Yzdqnvty Hospital Comment on above:Performed By: #### [id number], 38588421, 4700983 #### [facility] (DEFAULT) [address] [place] [address] 93000ISN Standardon 04-40-1899eTZF Non AA>60[facility] Comment on above:Performed By: #### [id number], 77857959, 0580545 #### [facility] (DEFAULT) [address] [place] [address] 59042rCOR AA>60[facility] ClinicComment on above:Result Comment: Chronic Kidney disease could be indicated at eGFRs of less than 60 ml/min/1.73m2. Kidney Failure is indicated at less than 15 ml/min/1.73m2 Performed By: #### [id number], [id number], 4809029 #### [facility] (DEFAULT) [address] [place] [address] 67737Pwdyg gap [Moles/Vol]15.0 mmol/LNormal5.0-19.0[facility] ClinicComment on above:Performed By: #### [id number], 13851875, 0727491 #### [facility] (DEFAULT) [address] [place] [address] 11366Bvfhzue [Mass/Vol]9.2 mg/dLNormal8.9-10.3MToledo Hospital Comment on above:Performed By: #### [id number], 27866935, 0658190 #### [facility] (DEFAULT) [address] [place] [address] 51222Ebigqays [Moles/Vol]101 mmol/GOvejlk657-238Pbejjdsy HospitalComment on above:Performed By: #### [id number], 23390012, 8077061 #### [facility] (DEFAULT) [address] [place] [address] 93926BE5 [Moles/Vol]26 mmol/MIszgng13-24Bccfvtjz Hospital Comment on above:Performed By: #### [id number], 98857026, 8551486 #### [facility] (DEFAULT) [address] [place] [address] 54452Dljyaotvot [Mass/Vol]0.58 mg/dLLow0.60-1.30[facility] HospitalComment on above:Performed By: #### [id number], 00705703, 0263962 #### [facility] (DEFAULT) [address] [place] [address] 00347Mjylman [Mass/Vol]120.0 mg/rHQkcy44.0-118.0[facility] HospitalComment on above:Performed By: #### [id number], 47423340, 7550207 #### [facility] (DEFAULT) [address] [place] [address] 56155Kmvijozqkg [Osmolality]279 mOsm/LMagrtrihealth [facility] HospitalComment on above:Performed By: #### [id number], 55789630, 1019308 #### [facility] (DEFAULT) [address] [place] [address] 00233Dpjoqbkeh [Moles/Vol]3.7 mmol/LNormal3.6-5.1[facility] HospitalComment on above:Performed By: #### [id number], 80842478, 9123501 #### [facility] (DEFAULT) [address] [place] [address] 18662Htxojs [Moles/Vol]138.0 mmol/UYpbjsh921.0-144.0[facility] HospitalComment on above:Performed By: #### [id number], 85900479, 5628022 #### [facility] (DEFAULT) [address] [place] [address] 38446Bulu nitrogen [Mass/Vol]19 mg/dLNormal8-26[facility] HospitalComment on above:Performed By: #### [id number], 32471649, 0092248 #### [facility] (DEFAULT) [address] [place] [address] 29386Znqm nitrogen/Creatinine [Mass ratio]33.0 mg/mgHigh 4.6-16.2[facility] HospitalComment on above:Performed By: #### [id number], 31492367, 2106428 #### [facility] (DEFAULT) [address] [place] [address] 67979ZVW w/ Auto Diffon 63-60-3665Cyyelusokna distribution width (RBC) [Ratio]18.4 %High11.5-15.0[facility] HospitalComment on above: Performed By: #### [id number], 59464637, 5888446 #### [facility] (DEFAULT) [address] [place] [address] 37201Myfgxghodq (Bld) [Volume fraction]29.7 %Low33.7-40.4 [facility] ClinicComment on above:Performed By: #### [id number], 39387034, 6089114 #### [facility] (DEFAULT) [address] [place] [address] 19581Kcglkhibdo (Bld) [Mass/Vol]9.0 g/dLLow11.3-15.9[facility] HospitalComment on above:Performed By: #### [id number], 02353766, 1299747 #### [facility] (DEFAULT) [address] [place] [address] 81662Stf Diff?AutoNormalCity Hospital HospitalComment on above: Performed By: #### [id number], 06156953, 4906976 #### [facility] (DEFAULT) [address] [place] [address] 90295TJP (RBC) [Entitic mass]25 oeGsnmcd23-37Agjtcwfj Hospital Comment on above:Performed By: #### [id number], 83811146, 4052853 #### [facility] (DEFAULT) [address] [place] [address] 86229YWCH (RBC) [Mass/Vol]30 g/xYPfjzzt83-18Sopvfgxj Hospital Comment on above:Performed By: #### [id number], 75733089, 9963073 #### [facility] (DEFAULT) [address] [place] [address] 06315CVI (RBC) [Entitic vol]82 aHMecfvc82-110Laknaykx Hospital Comment on above:Performed By: #### [id number], 41027460, 2264452 #### [facility] (DEFAULT) [address] [place] [address] 01418Wohypatv mean volume (Bld) [Entitic vol]10.7 fLHigh 6.3-10.2[facility] HospitalComment on above:Performed By: #### [id number], 15172262, 3623211 #### [facility] (DEFAULT) [address] [place] [address] 85178Cbbcmzjso (Bld) [#/Vol]230 l97Jhyzuv488-033Ohryybtq HospitalComment on above:Performed By: #### [id number], 69069366, 4027130 #### [facility] (DEFAULT) [address] [place] [address] 07224KBM (Bld) [#/Vol]3.60 y32Uwx7.70-5.30[facility] Comment on above:Performed By: #### [id number], 00014121, 9399630 #### [facility] (DEFAULT) [address] [place] [address] 77307WBA (Bld) [#/Vol]8.8 z11Jlzizgzo HospitalComment on above: Performed By: #### [id number], 03456414, 9756478 #### [facility] (DEFAULT) [address] [place] [address] 70654Uhcsfq Summaryon 06-54-6038Vaatts SummaryCODING DATE: 05/27/2020 [facility] STATUS: Transfer to [facility] PAYOR: Medicare Grouper: 470 MS-DRG MAJOR HIP [...] other venous thrombosis and embolism Z79.01 1 terminologist (current) use of anticoagulants G47.33 Y Obstructive sleep apnea (adult) (pediatric) Z99.89 1 Dependence on other enabling machines and devices G40.909 Y Epilepsy, unspecified, not intractable, without status epilepticus Z79.899 1 Other assistant terminal manager (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 therapy E66.01 Y Morbid (severe) obesity due to excess calories PROCEDURES DOCTOR NAME DATE [id number] Replacement of Left Knee Joint FERNANDO SILVA 05/23/2020 with Oxidized Zirconium on Polyethylene Synthetic Substitute, Cemented, Open Approach 79593X0 Transfusion of Nonautologous 05/25/2020 Red Blood Cells into Peripheral Vein, Percutaneous Approach NOTE: The code number assigned matches the documented diagnosis and / or procedure in the patient's chart. However, the narrative phrase printed from the coding software may appear abbreviated, or result in slightly different terminology. Revised Coded By: Jeane Mccormick Revised Date Saved: 05/27/2020 06:30 [facility] HospitalEducation Noteon 89-82-9633Emexgsccz NoteEducation Materials POST OPERATIVE TOTAL KNEE/HIP DISCHARGE [...] follow up in office with physician senior underwriting assistant Octavio Centeno as scheduled #9 NOMS [...] proceed to the nearest hospital's emergency services department.[facility] Patient Summaryon 32-14-4742Ytoeqcf[place] [address] Patient Discharge Instructions Name: SANDRA TAVAREZ : 1940 Patient Address: [address] [place] [address] Primary Care Provider: Name: Robert Vail After you are discharged if you find you have any questions, please, call [phone] ext [phone] to speak to a nurse. Discharge Diagnosis: Acute pain of left knee Prescription Information: If you have been given a prescription for narcotics, seek immediate medical attention if you have any difficulty breathing or any sudden status changes such as confusion andsleepiness. If you or anyone you know is experiencing suicidal thoughts, mental health, alcohol and/or drug addiction problems; contact the [facility] 20/06 Crisis Hotline -Text 3VQLN gf [phone]. If you received any narcotics, sedation, or [...] or sign any legal documents [facility] would like to thank you for allowing us to assist you with your healthcare needs.The following includes patient education materials and information regarding your injury/illness. SANDRA TAVAREZ has been given the following list of follow-up instructions, prescriptions, and patient education materials: Follow-up Instructions With: Address: When: Robert Vail [address] [place] [address] Business (1) With: Address: When: Tom Centeno [address] [place] [address], [facility] [address] [place], [place] [address] Business (1) 06/06/2020 1:00 PM Medications During [...] follow up in office with physician senior underwriting assistant Octavio Centeno as scheduled #9 NOMS [...] Centers for Disease Control and Prevention July 2014[facility] POCT Glucose Levelon 48-53-8085Mtfxybi [Mass/Vol]125 mg/pPQqvx97-484Ltuadfoy HospitalComment on above:Performed By: #### [id number] ####[facility] (DEFAULT)[address] [place] [address] 07769EHmo 61-15-0098ZWP Coag (PPP) [Relative time]2.29 {INR}High0.91-1.11[facility] HospitalComment on above: Performed By: #### [id number], 22169069, 7418700 #### [facility] (DEFAULT) [address] [place] [address] 57610SQ Coag (PPP) [Time]22.2 second(s)High9.7-11.8[facility] HospitalComment on above:Performed By: #### [id number], 43251265, 7849561 #### [facility] (DEFAULT) [address] [place] [address] 49011Kjoagoib Note - Nurseon 10-33-6604Jkncaqir Note - Nurse Dressing change per Dr Moon. RAFIQ hose applied to both lower legs. Daughter here for transfer to the [place] [facility]. Discharged to fdc per private vehicle with daughter. PT and OT assisted patient into car. [Electronically Signed on: 05/27/2020 18:20 EDT] Mayra Tafoya RN [Verified on: 05/27/2020 18:20 EDT] Lencho Tafoya RNMain Campus Medical CenterProgress Note-Physicianon 05-27-2020 Progress Note-PhysicianDATE OF ORTHOPEDIC PROGRESS [...] The patient will be going to [facility] today. CONDITION ON DISCHARGE: Stable. Tino Moon DO JOB #: [id number] bk [Electronically Signed on: 05/28/2020 10:10 EDT] TINO MOON DO [Verified on: 05/28/2020 10:10 EDT] MABLETINO Strauss [Transcribed on: 05/27/2020 14:44 EDT] [facility] HospitalProess Note-PhysicianDATE OF POSTOPERATIVE ORTHOPEDIC PROGRESS NOTE: [...] PROGNOSIS: Fair. Tino Moon DO JOB #: [id number] bk [Electronically Signed on: 05/27/2020 12:30 EDT] TINO MOON DO [Verified on: 05/27/2020 12:30 EDT] TINO MOON DO [Transcribed on: 05/27/2020 10:45 EDT] [facility].Auto Diff 1on 24-48-4523Jghw [place] %16 %High1-12 [facility] HospitalComment on above:Performed By: #### [id number], 53579114, 3957165 #### [facility] (DEFAULT) [address] [place] [address] 40228Dpow Abs#0.0 q21Imewie8.0-0.2[facility] HospitalComment on above:Performed By: #### [id number], 78952235, 0721348 #### [facility] (DEFAULT) [address] [place] [address] 68384Rhxeyfxjk/100 WBC (Bld)0.2 %Normal0.2-2.0[facility] Hospital Comment on above:Performed By: #### [id number], 32469348, 3240796 #### [facility] (DEFAULT) [address] [place] [address] 92407Myx Abs#0.0 e14Yowdwi3.0-0.4[facility] HospitalComment on above:Performed By: #### [id number], 74985095, 6908104 #### [facility] (DEFAULT) [address] [place] [address] 85994Predlcpzffj/100 WBC (Bld)0.5 %Low0.9-4.0[facility] Comment on above:Performed By: #### [id number], 55058288, 8715992 #### [facility] (DEFAULT) [address] [place] [address] 43304Lhibggyejti (Bld) [#/Vol]1.2 d10Aci2.3-2.9[facility] HospitalComment on above:Performed By: #### [id number], 64555753, 6304328 #### [facility] (DEFAULT) [address] [place] [address] 51060Wiblfpnzjjl/100 WBC (Bld)15 %Tpniur49-87Xffacydd Hospital Comment on above:Performed By: #### [id number], 49480355, 9028715 #### [facility] (DEFAULT) [address] [place] [address] 23741Wcsv Abs#1.3 u13Eaon6.0-0.8[facility] HospitalComment on above:Performed By: #### [id number], 76631050, 8965347 #### [facility] (DEFAULT) [address] [place] [address] 97552Tmsp Abs#5.6 z55Ksuszr5.5-9.2[facility] HospitalComment on above:Performed By: #### [id number], 42215093, 1501440 #### [facility] (DEFAULT) [address] [place] [address] 39992Bbzawhxiwwl/100 WBC (Bld)68 %Sgvqna10-76Ntrnrncd Hospital Comment on above:Performed By: #### [id number], 16253778, 1848877 #### [facility] (DEFAULT) [address] [place] [address] 24009GQG w/ Auto Diffon 14-35-5131Nrcvzgopsbv distribution width (RBC) [Ratio]17.9 %High11.5-15.0[facility] HospitalComment on above: Performed By: #### [id number], 85101709, 9567744 #### [facility] (DEFAULT) [address] [place] [address] 74094Qxttipkfzp (Bld) [Volume fraction]28.5 %Low33.7-40.4 [facility] HospitalComment on above:Performed By: #### [id number], 41718718, 4614874 #### [facility] (DEFAULT) [address] [place] [address] 52311Tuthdsoagz (Bld) [Mass/Vol]8.5 g/dLLow11.3-15.9[facility] HospitalComment on above:Performed By: #### [id number], 54650051, 9951350 #### [facility] (DEFAULT) [address] [place] [address] 66515Htj Diff?AutoNormalCity Hospital HospitalComment on above: Performed By: #### [id number], 30506310, 0151839 #### [facility] (DEFAULT) [address] [place] [address] 13016MQT (RBC) [Entitic mass]24 xqXqxqew09-36Iyupkvja Hospital Comment on above:Performed By: #### [id number], 49710694, 0578680 #### [facility] (DEFAULT) [address] [place] [address] 07131IJWF (RBC) [Mass/Vol]30 g/yQHoqrmc35-87Jixgekve Hospital Comment on above:Performed By: #### [id number], 37831892, 2712293 #### [facility] (DEFAULT) [address] [place] [address] 46404IMB (RBC) [Entitic vol]81 bBXrfwfw00-695Dhdpwdhh Hospital Comment on above:Performed By: #### [id number], 57320184, 2898195 #### [facility] (DEFAULT) [address] [place] [address] 26363Zgroexuz mean volume (Bld) [Entitic vol]10.5 fLHigh 6.3-10.2[facility] HospitalComment on above:Performed By: #### [id number], 89323358, 3315876 #### [facility] (DEFAULT) [address] [place] [address] 92722Pjwzgguqe (Bld) [#/Vol]178 h21Jphlcb685-184Outlrnfi HospitalComment on above:Performed By: #### [id number], 13661475, 3197514 #### [facility] (DEFAULT) [address] [place] [address] 59111SBO (Bld) [#/Vol]3.50 a80Xgz6.70-5.30[facility] Comment on above:Performed By: #### [id number], 51000906, 6545010 #### [facility] (DEFAULT) [address] [place] [address] 55897IFM (Bld) [#/Vol]8.2 q02Lvizbmdk HospitalComment on above: Performed By: #### [id number], 36966194, 4392099 #### [facility] (DEFAULT) [address] [place] [address] 91780Orqdd Greenon 60-45-4832Ykms CollectedKettering Health Dayton Comment on above:Performed By: #### [id number], 43563505, 9649820 #### [facility] (DEFAULT) [address] [place] [address] 50392Enpjyqb and Physicalon 33-65-3731Hlmcdic and Physical [id number]#1.00OTGTIFFParkview Health Nutrition Noteon 67-98-3330Abqscdoww NotePer intake records, Pt avg 50% of past 6 meals with inconsistent supplement intake avg 1X/d. Last BM on 05/23, will offer prunejuice. Post op anemia noted; per ortho 1unit PRBC given. CXR obtained for fever, dyspnea which was wnl. Possible discharge later today. Will continue to monitor.NormalCleveland ClinicPTon 50-68-2401KUM Coag (PPP) [Relative time]2.54 {INR}High0.91-1.11[facility] ClinicComment on above: Performed By: #### [id number], 66552686, 8173021 #### [facility] [address], [place] [address]TV Coag (PPP) [Time]24.4 second(s)High9.7-11.8[facility] HospitalComment on above:Performed By: #### [id number], 81917061, 5590651 #### [facility] (DEFAULT) [address] [place] [address] 25628Ulidslki Note-Physicianon 42-59-7755Ppawtnmu Note-PhysicianDATE OF ORTHOPEDIC POSTOPERATIVE PROGRESS NOTE: 05/25/2020 [...] is good. Tino Moon DO JOB #: [id number] bk [Electronically Signed on: 05/26/2020 13:12 EDT] TINO MOON DO [Verified on: 05/26/2020 13:12 EDT] TINO MOON DO [Transcribed on: 05/26/2020 10:28 EDT] [facility] HospitalXR Chest 1 View Frontalon 93-81-1815VO Chest 1 View FrontalEXAM: XR Chest 1 [...] Jesus Green MD 05/26/20 3:37 pm Technologist: ,[facility].Auto Diff 1on 65-32-1101Yzet [place] %17 %[address] Franklin StreetComment on above:Performed By: #### [id number], 91023183, 0190832 #### [facility] (DEFAULT) [address] [place] [address] 50482Jmvo Abs#0.0 u21Hirdyq1.0-0.2[facility] HospitalComment on above:Performed By: #### [id number], 34589635, 7871474 #### [facility] (DEFAULT) [address] [place] [address] 34208Hhvfpiovs/100 WBC (Bld)0.3 %Normal0.2-2.0[facility] Hospital Comment on above:Performed By: #### [id number], 06979963, 3533627 #### [facility] (DEFAULT) [address] [place] [address] 68278Eur Abs#0.0 a22Narjsh6.0-0.4[facility] HospitalComment on above:Performed By: #### [id number], 02810437, 1653797 #### [facility] (DEFAULT) [address] [place] [address] 83746Ornqypcqcyl/100 WBC (Bld)0.1 %Low0.9-4.0[facility] Hospital Comment on above:Performed By: #### [id number], 73231376, 4117124 #### [facility] (DEFAULT) [address] [place] [address] 82655Gavdvgjvdbp (Bld) [#/Vol]0.8 h65Gel6.3-2.9[facility] HospitalComment on above:Performed By: #### [id number], 92761404, 9882411 #### [facility] (DEFAULT) [address] [place] [address] 79709Nclzggvzlph/100 WBC (Bld)11 %Fyk18-88Ufpodyiq Hospital Comment on above:Performed By: #### [id number], 89907733, 2687922 #### [facility] (DEFAULT) [address] [place] [address] 72720Yoqj Abs#1.1 s61Ljgt9.0-0.8[facility] HospitalComment on above:Performed By: #### [id number], 50007192, 0125763 #### [facility] (DEFAULT) [address] [place] [address] 93994Iuyy Abs#4.8 a44Yjgnmv4.5-9.2[facility] HospitalComment on above:Performed By: #### [id number], 17687260, 6592695 #### [facility] (DEFAULT) [address] [place] [address] 55288Vayrdtjvcmw/100 WBC (Bld)72 %Eezxre37-19Xoxzpjaa Hospital Comment on above:Performed By: #### [id number], 29419502, 9646727 #### [facility] (DEFAULT) [address] [place] [address] 48319WQH w/ Auto Diffon 44-82-1988Fcqxovncmij distribution width (RBC) [Ratio]17.6 %High11.5-15.0[facility] HospitalComment on above: Performed By: #### [id number], 06813014, 3173133 #### [facility] (DEFAULT) [address] [place] [address] 19945Wvqsgzeqju (Bld) [Volume fraction]27.4 %Low33.7-40.4 [facility] ClinicComment on above:Performed By: #### [id number], 46295681, 4144818 #### [facility] (DEFAULT) [address] [place] [address] 06472Qmttypqkcv (Bld) [Mass/Vol]8.1 g/dLLow11.3-15.9[facility] HospitalComment on above:Performed By: #### [id number], 17857951, 6364688 #### [facility] (DEFAULT) [address] [place] [address] 32032Bay Diff?AutoNormalCity Hospital HospitalComment on above: Performed By: #### [id number], 56180267, 0048105 #### [facility] (DEFAULT) [address] [place] [address] 80770ERT (RBC) [Entitic mass]24 kvPffctj25-88Firwfrhv Hospital Comment on above:Performed By: #### [id number], 05291875, 6660729 #### [facility] (DEFAULT) [address] [place] [address] 30185NQDF (RBC) [Mass/Vol]30 g/oWFtibbk26-24Sphiejby Hospital Comment on above:Performed By: #### [id number], 80052503, 4262296 #### [facility] (DEFAULT) [address] [place] [address] 21124CNP (RBC) [Entitic vol]80 sUVov08-995Ebvilnlp Hospital Comment on above:Performed By: #### [id number], 70864737, 4278146 #### [facility] (DEFAULT) [address] [place] [address] 06259Vzskqelu mean volume (Bld) [Entitic vol]10.8 fLHigh 6.3-10.2MToledo HospitalComment on above:Performed By: #### [id number], 89889152, 7450923 #### [facility] (DEFAULT) [address] [place] [address] 02462Eneejiduu (Bld) [#/Vol]186 u01Zmqmtn587-218Bwzobxfr HospitalComment on above:Performed By: #### [id number], [id number], [id number] #### [facility] (DEFAULT) [address] [place] [address] 06746KVV (Bld) [#/Vol]3.42 h80Gbp4.70-5.30[facility] Comment on above:Performed By: #### [id number], [id number], [id number] #### [facility] (DEFAULT) [address] [place] [address] [id number] (Bld) [#/Vol]6.8 p42Ykkmtw0.5-10.5[facility] Comment on above:Performed By: #### [id number], [id number], [id number] #### [facility] (DEFAULT) [address] [place] [address] 33539Ejabuqrnlfe Panel Standardon 45-46-5647Tyctf gap [Moles/Vol]12.0 mmol/LNormal5.0-19.0[facility] HospitalComment on above:Performed By: #### [id number], [id number], [id number] #### [facility] (DEFAULT) [address] [place] [address] 97150Upblmyss [Moles/Vol]102 mmol/FSzniht450-582Ickpifxf HospitalComment on above:Performed By: #### [id number], [id number], [id number] #### [facility] (DEFAULT) [address] [place] [address] 01752MW2 [Moles/Vol]28 mmol/WHzjvui13-98Gzfskghz Hospital Comment on above:Performed By: #### [id number], [id number], [id number] #### [facility] (DEFAULT) [address] [place] [address] 56772Cstxsvjqj [Moles/Vol]4.0 mmol/LNormal3.6-5.1[facility] HospitalComment on above:Performed By: #### [id number], [id number], [id number] #### [facility] (DEFAULT) [address] [place] [address] 63042Rnplpw [Moles/Vol]138.0 mmol/PRrxkaj520.0-144.0[facility] HospitalComment on above:Performed By: #### [id number], [id number], [id number] #### [facility] (DEFAULT) [address] [place] [address] 11125FCxc [id number] Coag (PPP) [Relative time]1.89 {INR} High0.91-1.11[facility] HospitalComment on above:Performed By: #### [id number], [id number], [id number] #### [facility] (DEFAULT) [address] [place] [address] 69009LZ Coag (PPP) [Time]18.6 second(s)High9.7-11.8[facility] HospitalComment on above:Performed By: #### [id number], [id number], [id number] #### [facility] (DEFAULT) [address], [place] [address]Srlwhfld Note - Nurseon 84-90-9152Vgyxwvbc Note - Nursept requiring three assist to [...] [Verified on: 05/25/2020 18:51 EDT] Jessica Abernathy RNTwin City Hospitaless Note - NurseUnable to get mask to fit correctly so placed on 2 L overnight. [Electronically Signed on: 05/25/2020 01:45 EDT] Lyndsay Lou RN [Verified on: 05/25/2020 01:45 EDT] Lyndsay Lou RNKeenan Private Hospital Note - NursePt asleep with cpap mask off, woke her to put it back on. [Electronically Signed on: 05/25/2020 01:33 EDT] Lyndsay Lou RN [Verified on: 05/25/2020 01:33 EDT] [facility]dsay Lou [facility] HospitalProgress Note - NursePt up to bedside commode with 2 assist and walker, transfers very poorly and reports alot of knee pain. [Electronically Signed on: 05/25/2020 00:22 EDT] Lyndsay Lou RN [Verified on: 05/25/2020 00:22 EDT] Lyndsay Lou [facility] Medical CenterRBC.on 00-76-8390NFL (Bld) [#/Vol]# of Units: 1 RBC Indication: Post-Op Bleed Additional Units?: No Date Needed: 05/25/2002 Red Cell Status: RBC [facility] CenterComment on above:Performed By: #### [id number], [id number], [id number] #### [facility] (DEFAULT) [address] [place] [address].Auto Diff 1on 11-90-3035Axkc [place] %9 %Normal1-12C[facility] ClinicComment on above:Performed By: #### [id number], [id number], [id number] #### [facility] (DEFAULT) [address] [place] [address] 76016Marz Abs#0.0 q55Oreyfl4.0-0.2[facility]rtri[facility] HospitalComment on above:Performed By: #### [id number], [id number], [id number] #### [facility] (DEFAULT) [address] [place], [place] [address]Basophils/100 WBC (Bld)0.2 %Normal0.2-2.0[facility] Hospital Comment on above:Performed By: #### [id number], [id number], [id number] #### [facility] (DEFAULT) [address] [place] [address] 78642Ebl Abs#0.0 d30Qwuodo9.0-0.4Magrtri[facility] HospitalComment on above:Performed By: #### [id number], [id number], [id number] #### [facility] (DEFAULT) [address] [place] [address] 13602Iwtkirdjjst/100 WBC (Bld)0.0 %Low0.9-4.0[facility] Hospital Comment on above:Performed By: #### [id number], [id number], [id number] #### [facility] (DEFAULT) [address] [place] [address] 01208Cnlxdmcsrog (Bld) [#/Vol]0.7 t19Jeu5.3-2.9[facility] HospitalComment on above:Performed By: #### [id number], [id number], [id number] #### [facility] (DEFAULT) [address] [place] [address] 19854Bwtznpkfcvt/100 WBC (Bld)6 %Gpx71-72Zexkqejv Hospital Comment on above:Performed By: #### [id number], [id number], [id number] #### [facility] (DEFAULT) [address] [place] [address] 00230Lvea Abs#0.9 h84Lleh1.0-0.8[facility] HospitalComment on above:Performed By: #### [id number], [id number], [id number] #### [facility] (DEFAULT) [address] [place] [address] 88418Asot Abs#8.7 d94Hyintt7.5-9.2[facility] HospitalComment on above:Performed By: #### [id number], [id number], [id number] #### [facility] (DEFAULT) [address] [place] [address] 46906Mgslcnzjxqt/100 WBC (Bld)84 %Esztqw72-30Nvqvqohy Hospital Comment on above:Performed By: #### [id number], [id number], [id number] #### [facility] (DEFAULT) [address] [place] [address] 36623PFW Standardon 79-74-0427gPNI Non AA>60[facility] Comment on above:Performed By: #### [id number], [id number], [id number] #### [facility] (DEFAULT) [address] [place] [address] 65818lOPW AA>60C[facility] ClinicComment on above:Result Comment: Chronic Kidney disease could be indicated at eGFRs of less than 60 ml/min/1.73m2. Kidney Failure is indicated at less than 15 ml/min/1.73m2 Performed By: #### [id number], [id number], [id number] #### [facility] (DEFAULT) [address] [place] [address] 78883Kuudb gap [Moles/Vol]13.0 mmol/LNormal5.0-19.0C[facility] ClinicComment on above:Performed By: #### [id number], [id number], [id number] #### [facility] (DEFAULT) [address] [place] [address] 34924Rzhhhej [Mass/Vol]8.5 mg/dLLow8.9-10.3MToledo Hospital Comment on above:Performed By: #### [id number], [id number], [id number] #### [facility] (DEFAULT) [address] [place] [address] 78606Syrnzbtl [Moles/Vol]102 mmol/RMymvxb558-899Jdapiygs HospitalComment on above:Performed By: #### [id number], [id number], [id number] #### [facility] (DEFAULT) [address] [place] [address] 83940OF1 [Moles/Vol]27 mmol/YXtofwu58-07Wqmfgsgd Hospital Comment on above:Performed By: #### [id number], [id number], [id number] #### [facility] (DEFAULT) [address] [place] [address] 02305Ubixtawkdj [Mass/Vol]0.57 mg/dLLow0.60-1.30[facility] HospitalComment on above:Performed By: #### [id number], [id number], [id number] #### [facility] (DEFAULT) [address] [place] [address] 70827Yvreqxn [Mass/Vol]134.0 mg/cUGwse83.0-118.0[facility] HospitalComment on above:Performed By: #### [id number], [id number], [id number] #### [facility] (DEFAULT) [address] [place] [address] 03861Qjepdpxlgw [Osmolality]280 mOsm/LMeast [facility] HospitalComment on above:Performed By: #### [id number], [id number], [id number] #### [facility] (DEFAULT) [address] [place] [address] 61720Wuxgrylmw [Moles/Vol]4.4 mmol/LNormal3.6-5.1[facility] HospitalComment on above:Performed By: #### [id number], [id number], [id number] #### [facility] (DEFAULT) [address] [place] [address] 03746Xiyyac [Moles/Vol]138.0 mmol/CZldlqy065.0-144.0[facility] HospitalComment on above:Performed By: #### [id number], 64225727, [id number] #### [facility] (DEFAULT) [address] [place] [address] 36976Wopk nitrogen [Mass/Vol]19 mg/dLNormal8-26[facility] HospitalComment on above:Performed By: #### [id number], [id number], [id number] #### [facility] (DEFAULT) [address] [place] [address] 53882Gprb nitrogen/Creatinine [Mass ratio]33.0 mg/mgHigh 4.6-16.2[facility] HospitalComment on above:Performed By: #### [id number], 26782450, [id number] #### [facility] (DEFAULT) [address] [place] [address] 49797KBN w/ Auto Diffon 65-07-2857Ptsipyphfie distribution width (RBC) [Ratio]17.4 %High11.5-15.0C[facility] ClinicComment on above: Performed By: #### [id number], 69232892, [id number] #### [facility] (DEFAULT) [address] [place] [address] 70601Bahnvlekqo (Bld) [Volume fraction]29.3 %Low33.7-40.4 [facility] ClinicComment on above:Performed By: #### [id number], 14718932, [id number] #### [facility] (DEFAULT) [address] [place] [address] 72981Mtjjobnctg (Bld) [Mass/Vol]8.7 g/dLLow11.3-15.9C[facility] ClinicComment on above:Performed By: #### [id number], 85575193, [id number] #### [facility] (DEFAULT) [address] [place] [address] 29574Mdy Diff?AutoNormalCity Hospital HospitalComment on above: Performed By: #### [id number], [id number], [id number] #### [facility] (DEFAULT) [address] [place] [address] 40473OEA (RBC) [Entitic mass]24 vnWqhuln13-17Nfajlrex Hospital Comment on above:Performed By: #### [id number], 24512574, [id number] #### [facility] (DEFAULT) [address] [place] [address] 69754BESI (RBC) [Mass/Vol]30 g/zRWievob38-13Wcsjbsxa Hospital Comment on above:Performed By: #### [id number], 19128604, [id number] #### [facility] (DEFAULT) [address] [place] [address] 93600BGZ (RBC) [Entitic vol]81 tBTehhwu22-936Ktkgywxd Hospital Comment on above:Performed By: #### [id number], 76854423, [id number] #### [facility] (DEFAULT) [address] [place] [address] 06501Lpnozmcy mean volume (Bld) [Entitic vol]10.6 fLHigh 6.3-10.2[facility] HospitalComment on above:Performed By: #### [id number], 79673549, [id number] #### [facility] (DEFAULT) [address] [place] [address] 76375Hurzynswu (Bld) [#/Vol]211 c16Uyejle373-630Hbklzjsz HospitalComment on above:Performed By: #### 6141808, 54584455, [id number] #### [facility] (DEFAULT) [address] [place] [address] 30687EAX (Bld) [#/Vol]3.63 s35Ost8.70-5.30[facility] Comment on above:Performed By: #### [id number], 93800654, [id number] #### [facility] (DEFAULT) [address] [place] [address] 00360LVY (Bld) [#/Vol]10.4 y75Vaxlam5.5-10.5[facility] Comment on above:Performed By: #### [id number], 03221513, [id number] #### [facility] (DEFAULT) [address] [place] [address] 89923Crrkidqld Noteon 82-39-2628Nqmvxsgln NoteDiet ordered as 3000kcal, DM w/ Boost Glucose Control BID. Diet adjusted to 2gr Na to reflect Pts home diet and supplement changed to Ensure Compact BID which is available in house. Pt does not have DM. Will continue to monitor.NormalCleveland ClinicPT on 83-88-9797DST Coag (PPP) [Relative time]1.21 {INR}High0.91-1.11[facility] HospitalComment on above:Performed By: #### [id number], 01803570, [id number] #### [facility] (DEFAULT) [address] [place] [address] 99564NK Coag (PPP) [Time]12.3 second(s)High9.7-11.8[facility] HospitalComment on above:Performed By: #### [id number], [id number], [id number] #### [facility] ([facility]) [address] [place] [address] 63275Qkniwtrc Noteon 42-90-0930Nsnbneib NoteI have personally reviewed the patient's current [...] Molina [Verified on: 05/24/2020 16:28 EDT] Kellee MolinaKeenan Private Hospital Note - Nurseon 05-24-2020 Progress Note - Nursepts pain becming worse. giving 10mg oxy po every four hours, polar care in place and dr epperson notified of pain not controlled. will administer po gabepentin per order. will continue to monitor [Electronically Signed on: 05/24/2020 17:20 EDT] Jessica Abernathy RN [Verified on: 05/24/2020 17:20 EDT] Jessica Abernathy RNTwin City Hospitaless Note - Nursept requires assistance getting in and out of bed. still a little stiff from surgery but does ok once up w the walker. pain so far has been controlled w 10 mg po oxy. [Electronically Signed on: 05/24/2020 10:54 EDT] Jessica Abernathy RN [Verified on: 05/24/2020 10:54 EDT] Jessica Abernathy RNNormTrinity Health System Twin City Medical CenterABORhon 09-21-7663FTX and group Nom (d)Hx Check: Not Found Anti-A: 4+ Anti-B: 0 Anti-D: 4+ DCon: NT A1: mf+ B: 4+ ABORh Interp: A POSMagrtrihealth mccullough-hyde memorial hospital HospitalComment on above:Performed By: #### [id number], [id number], [id number] #### [facility] (DEFAULT) [address] [place] [address] 92017UDQHv Retypeon 38-13-7695IGV and group Nom (Bld)Ordered by Discern. Anti-A: 4+ Anti-B: 0 Anti-D: 4+ DCon: NT A1: mf+ B: 4+ ABORh Retype: A POSCity Hospital HospitalComment on above:Performed By: #### [id number], [id number], [id number] #### [facility] (DEFAULT) [address] [place] [address] 92512DQGX Gelon 92-39-1576BOXO GelNegativeThe [facility] Hospital HospitalComment on above:Performed By: #### [id number], 06421958, [id number] #### [facility] (DEFAULT) [address] [place] [address] 59376Medgfpzeoh Noteon 24-99-4592Ivhlfcdvxp NotePatient: SANDRA TAVAREZ Age: 79 years Sex: [...] history): All Problems Anemia / SNOMED CT 987264074 / Confirmed At risk of pressure sore / SNOMED CT 263427067 / Confirmed Cardiomyopathy / SNOMED CT 433293761 / Confirmed DVT (deep venous thrombosis) / SNOMED CT 421972004 / Confirmed GERD (gastroesophageal reflux disease) / SNOMED CT 186873806 / Confirmed Hyperlipidemia / SNOMED CT 39255798 / Confirmed Hypertension / SNOMED CT 1507486166 / Confirmed Lumbar spondylosis / SNOMED CT 063073604 / Confirmed Mass / SNOMED CT 066345910 / Confirmed KERMIT (obstructive sleep apnea) / SNOMED CT 732079665 / Confirmed Pulmonary hypertension / SNOMED CT 659079357 / Confirmed Seizure / SNOMED CT 316745337 / Confirmed Venous insufficiency / SNOMED CT 676657284 / Confirmed Resolved: Adrenal adenoma / SNOMED CT 438883503 Resolved: Pulmonary emboli / SNOMED CT 49869070 Histories Family History: Diabetes mellitus Sister Heart attack Father Leukemia Father Stroke.... Mother Procedure history: Cholecystectomy (26822363). Colectomy (07667277). Colonoscopy (115799040). Kevil filter (754151291). Femur fracture, right (83393562). Shoulder (99744995). Comments: 02/08/2020 9:57 Stacy Reynolds RN torn rotator cuff 02/08/2020 7:28 FRANSISCOT Stacy Booker RN arthroplasty Knee arthroplasty (467798762). Craniotomy (40330640). Laminectomy (7710673338). Comments: 02/08/2020 7:30 Stacy Reynolds RN foraminotomy, facetectomy with decompression and fusion Cataract (977325187). Social History Electronic Cigarette/Vaping Assessment Electronic Cigarette [...] [Verified on: 05/23/2020 13:34 EDT] Maico Sandhu [facility] Medical CenterBlood Bank IDon [id number] Bank ID BBID: [id number] ClinicComment on above:Performed By: #### [id number], [id number], [id number] #### [facility] (DEFAULT) [address] [place] [address] 28393Icxis [place] 36-77-4433Ingk [facility] Comment on above:Performed By: #### [id number], 48351122, [id number] #### [facility] (DEFAULT) [address] [place] [address] 15510Zdui CollectedKettering Health DaytonComment on above: Performed By: #### [id number], 44253209, [id number] #### [facility] (DEFAULT) [address] [place] [address] 51198Bqjrp 14-79-8794Zrexlzawbj (Bld) [Mass/Vol]10.1 g/dLLow 11.3-15.9[facility] ClinicComment on above:Performed By: #### [id number], 71544294, [id number] #### [facility] (DEFAULT) [address] [place] [address] 85018ANTI Intraoperative Recordon 96-99-6451UFZI Intraoperative RecordMAGR Intra-Op Record Summary Primary Physician: FERNANDO SILVA Finalized Date/Time: 05/23/20 16:19:21 Pt. Name: SANDRA TAVAREZ Lyndsay ValdezB./Sex: 1940 FEMALE Med Rec #: [id number] Physician: FERNANDO SILVA Financial #: [id number] Pt. Type: I Room/Bed: [facility] Admit/Disch: 05/23/20 09:44:18 - Institution: Case Times [...] Role Performed Surgeon - Primary Anesthesiologist of Assistant Printer Floor Covering Record Time In 05/23/20 13:19:00 05/23/20 13:19:00 05/23/20 13:19:00 Time Out 05/23/20 16:17:00 05/23/20 16:17:00 05/23/20 15:52:00 Procedure Arthroplasty Knee Arthroplasty Knee Arthroplasty Knee Total(Left) Total(Left) Total(Left) Last Modified By: Shanique Brown RN, Barbara RN Long, Barbara RN 05/23/20 16:19:02 05/23/20 16:19:02 05/23/20 16:19:02 Entry 4 Entry 5 Entry 6 Case Attendee Thomas PARK WARDEN, Sridhar Vallejo Jennifer RN Regina CST Role Performed Scrub Personnel Technical Information Specialist Technical Information Specialist Time In 05/23/20 13:19:00 05/23/20 13:19:00 05/23/20 13:19:00 Time Out 05/23/20 16:17:00 05/23/20 16:17:00 05/23/20 16:17:00 Procedure Arthroplasty Knee Arthroplasty Knee Arthroplasty Knee Total(Left) Total(Left) Total(Left) Last Modified By: Shanique Brown RN, Barbara RN Long, Barbara RN 05/23/20 16:19:02 05/23/20 16:19:02 05/23/20 16:19:02 General Comments: Jea Baezar waleska rep Surgical Procedures MAGR Pre-Care [...] Implanted/Explanted By: Size 6.5mm 48mm 29MM ISADORA Director Of Clinical Services waleska [employer]ES[employer] WALES[employer] Catalog # Lot Number [id number] Expiration Date 10/27/29 11/27/29 10/27/29 Serial Number REF [id number] [id number] 35 REF 5983 40 48 REF 5979 95 29 Device Identifier Human Readable CHASE Machine Readable CHASE MR Class Implant Usage Data Site Knee L Knee L Knee L Quantity 1 1 1 Reason for Explant Reason Not Retained Explant Disposition Baggage Screener Sterility External Indicator Result Internal Indicator Results [...] C D 15MM ISADORA X 30MM L Director Of Clinical Services [employer]ES[employer] W[employer]ES[employer] Catalog # Lot Number [id number] Expiration Date 02/25/30 01/25/25 08/27/29 Serial Number REF [id number] RE 59 62 30 10 REF 5099 12 15 Device Identifier Human Readable CHASE Machine Readable CHASE MR Class Implant Usage Data Site Knee L Knee L Knee L Quantity 1 1 1 Reason for Explant Reason Not Retained Explant Disposition Baggage Screener Sterility External Indicator Result Internal Indicator Results [...] By: Size 29 MM ISADORA 4 D Director Of Clinical Services WALESKA WALESKA WALESKA Catalog # Lot Number [id number] Expiration Date 09/27/27 09/25/29 07/28/26 Serial Number REF 42 [id number] 000 29 REF 5980 37 02 REF 00 [id number] [id number] Device Identifier Human Readable CHASE Machine Readable CHASE MR Class Implant Usage Data Site Knee L Knee L Knee L Quantity 1 1 1 Reason for Explant Reason Not Retained Explant Disposition Baggage Screener Sterility External Indicator Result Internal Indicator Results [...] Implanted/Explanted STEPANIC, FERNANDO STEPANIC, FERNANDO By: Size Director Of Clinical Services WALESKA/BIOMET WALESKA/BIOMET Catalog # Lot Number [id number] Expiration Date 05/27/24 05/27/24 Serial Number REF [id number] REF [id number] Device Identifier Human Readable CHASE Machine Readable CHASE MR Class Implant Usage Data Site Knee L Knee L Quantity 1 1 Reason for Explant Reason Not Retained Explant Disposition Baggage Screener Sterility External Indicator Result Internal Indicator Results [...] Signatures Signed By: Shanique Brown RN 05/23/20 16:19[facility] Intraoperative Record MAGR Intra-Op Record Summary Primary Physician: Finalized Date/Time: 05/23/20 13:14:24 Pt. Name: SANDRA TAVAREZ/Sex: 1940 FEMALE Med Rec #: [id number] Physician: FERNANDO SILVA Financial #: [id number] Pt. Type: I Room/Bed: [facility] Admit/Disch: 05/23/20 09:44:18 - Institution: Case Times [...] Warga, Laura RN Role Performed Anesthesiologist of Assistant Printer Floor Covering Assistant Printer Floor Covering Record Time In 05/23/20 12:58:00 05/23/20 12:58:00 [...] Signatures Signed By: Stacy Pena RN 05/23/20 13:14[facility] PACU Recordon [id number] PACU RecordMA PACU Record Summary Primary Physician: FERNANDO SILVA Finalized Date/Time: 05/23/20 16:49:56 Pt. Name: SANDRA TAVAREZ/Sex: 1940 FEMALE Med Rec #: [id number] Physician: FERNANDO SILVA Financial #: [id number] Pt. Type: I Room/Bed: [facility] Admit/Disch: 05/23/20 09:44:18 - Institution: PACU Case Times MAGR Entry 1 In PACU I 05/23/20 16:18:00 Discharge from PACU 05/23/20 16:51:00 I Last Modified By: Shanique Brown RN 05/23/20 16:49:54 Finalized By: Shanique Brown RN Document Signatures Signed By: Shanique Brown RN 05/23/20 16:49Park[facility] HealthNutrition Noteon 38-65-2762Bfrefzzhi NotePt admitted for scheduled Lt total knee [...] risk r/t age greater than 65y and surgery.[facility] 49-72-5923BIL Coag (PPP) [Relative time]1.22 {INR}High0.91-1.11 [facility] ClinicComment on above:Performed By: #### [id number], [id number], [id number] #### [facility] (DEFAULT) [address] [place] [address] 82390RJ Coag (PPP) [Time]12.4 second(s)High9.7-11.8[facility] ClinicComment on above:Result Comment: Called Shira in Pre - Surg at 1059 Performed By: #### 5048485, 66228578, [id number] #### [facility] (DEFAULT) [address] [place] [address] 52897RJID-QqC-2 (COVID-19) PCRon 33-05-4254UHBME-19 PCRNot DetectedNormalNot DetectedCleveland ClinicComment on above:Result Comment: performed in house Results Called To Stacy in pre-surg By ARIADNA And Read Back For Confirmation On 05/23/2020 10:55:59 EDTPerformed By: #### [id number], 73926032, [id number] #### [facility] (DEFAULT) [address] [place] [address] 31218PC Knee One or Two Views Lefton 21-97-2913CO Knee One or Two Views LeftEXAM: XR [...] Jae Cardona 05/23/20 4:50 pm Technologist: Tabitha BLANTONCleveland ClinicProgress Note - Nurseon 05-07-2020 Progress Note - NurseChart reviewed by Dr. Maria and no new orders received. May proceed to surgery. [Electronically Signed on: 05/07/2020 15:56 EDT] Chrissie Contreras RN [Verified on: 05/07/2020 15:56 EDT] Chrissie Contreras RN [facility] HospitalCoding Summaryon 92-70-9022Euoiaa SummaryCODING DATE: 02/27/2020 [facility] STATUS: Home PAYOR: Medicare APC DESCRIPTION [...] Morena Fang Revised Date Saved: 02/27/2020 01:41 [facility] HospitalProgress [facility] - Nurseon 84-42-5715Desdqotc Note - NurseChart reviewed by Dr. Garcia and no new orders received. [Electronically Signed on: 02/12/2020 15:52 EDT] Chrissie Contreras RN [Verified on: 02/12/2020 15:52 EDT] Chrissie Contreras RN [facility] CenterProvider Orderson 02-11-2020 Provider [id number]#1.00OTGTIFFNoBlanchard Valley Health System [facility] Urineon 02-10-2020C UrineUrine Culture ordered as a result of parameters set on specific urine dip and urine microsopic results. Mixed skin, or urogenital paddy. Clinically insignificantParkview Health Comment on above:Performed By: #### [id number], [id number], [id number] #### [facility] (DEFAULT) [address] [place] [address] 45289.Auto Diff 1on 56-79-9040Spje [place] %12 %Normal1-12[facility] HospitalComment on above:Performed By: #### [id number], [id number], [id number] #### [facility] (DEFAULT) [address] [place] [address] 54075Vpta Abs#0.0 i15Fjbwyw6.0-0.2[facility] HospitalComment on above:Performed By: #### [id number], 48840310, [id number] #### [facility] (DEFAULT) [address] [place] [address] 09281Hjfhbfnrf/100 WBC (Bld)0.4 %Normal0.2-2.0[facility] Comment on above:Performed By: #### [id number], 44623145, [id number] #### [facility] (DEFAULT) [address] [place] [address] 69218Xzc Abs#0.1 g20Ymgsdz8.0-0.4[facility] HospitalComment on above:Performed By: #### [id number], 29453241, [id number] #### [facility] (DEFAULT) [address] [place] [address] 37011Igvnxztgjnn/100 WBC (Bld)1.9 %Normal0.9-4.0[facility] HospitalComment on above:Performed By: #### [id number], 49333727, [id number] #### [facility] (DEFAULT) [address] [place] [address] 32866Hsbnbnsazed (Bld) [#/Vol]1.0 f51Way1.3-2.9Magrtri[facility] HospitalComment on above:Performed By: #### 9565455, 77319214, [id number] #### [facility] (DEFAULT) [address] [place] [address] 48198Lsemcqytyam/100 WBC (Bld)22 %Wzfshf12-29[facility] Comment on above:Performed By: #### 4115636, 08669282, [id number] #### [facility] (DEFAULT) [address] [place] [address] 98740Rjwb Abs#0.6 r57Norrhq0.0-0.8[facility]rtri[facility] HospitalComment on above:Performed By: #### 9952640, 71835062, [id number] #### [facility] (DEFAULT) [address] [place] [address] [id number] Abs#3.0 g26Ivgixq7.5-9.2[facility] HospitalComment on above:Performed By: #### [id number], [id number], [id number] #### [facility] (DEFAULT) [address] [place] [address] [id number]/100 WBC (Bld)64 %Twrbfd18-60[facility] Comment on above:Performed By: #### [id number], [id number], [id number] #### [facility] (DEFAULT) [address] [place] [address] [id number] Standardon [id number] Non AA>60[facility] Comment on above:Performed By: #### [id number], [id number], [id number] #### [facility] (DEFAULT) [address] [place] [address] [id number] AA>60[facility] HospitalComment on above:Result Comment: Chronic Kidney disease could be indicated at eGFRs of less than 60 ml/min/1.73m2. Kidney Failure is indicated at less than 15 ml/min/1.73m2 Performed By: #### [id number], [id number], [id number] #### [facility] (DEFAULT) [address] [place] [address] 23810Uwxeg gap [Moles/Vol]15.0 mmol/LNormal5.0-19.0[facility] HospitalComment on above:Performed By: #### [id number], [id number], [id number] #### [facility] (DEFAULT) [address] [place] [address] 67181Fzanjcg [Mass/Vol]9.4 mg/dLNormal8.9-10.3[facility] Hospital Comment on above:Performed By: #### [id number], [id number], [id number] #### [facility] (DEFAULT) [address] [place] [address] 40717Dhlaknhx [Moles/Vol]102 mmol/RGmqxzi325-635Vpivbciy HospitalComment on above:Performed By: #### [id number], [id number], [id number] #### [facility] (DEFAULT) [address] [place] [address] 92350NJ3 [Moles/Vol]26 mmol/OIktdbt02-34Jivwbwub Hospital Comment on above:Performed By: #### [id number], [id number], [id number] #### [facility] (DEFAULT) [address] [place] [address] 86123Swgtxlblag [Mass/Vol]0.64 mg/dLNormal0.60-1.30[facility] HospitalComment on above:Performed By: #### [id number], [id number], [id number] #### [facility] (DEFAULT) [address] [place] [address] 07692Cwaxygs [Mass/Vol]112.0 mg/mKZujyqp33.0-118.0[facility] HospitalComment on above:Performed By: #### [id number], [id number], [id number] #### [facility] (DEFAULT) [address] [place] [address] 09135Scspdnskcz [Osmolality]280 mOsm/LMeast [facility] HospitalComment on above:Performed By: #### [id number], [id number], [id number] #### [facility] (DEFAULT) [address] [place] [address] 53955Qlufuqjhi [Moles/Vol]4.1 mmol/LNormal3.6-5.1[facility] HospitalComment on above:Performed By: #### [id number], [id number], [id number] #### [facility] (DEFAULT) [address] [place] [address] 96881Phimfv [Moles/Vol]139.0 mmol/DMbcxhc906.0-144.0[facility] HospitalComment on above:Performed By: #### [id number], [id number], [id number] #### [facility] (DEFAULT) [address] [place] [address] 59488Kuxm nitrogen [Mass/Vol]19 mg/dLNormal8-26[facility] HospitalComment on above:Performed By: #### [id number], [id number], [id number] #### [facility] (DEFAULT) [address] [place] [address] 84367Lppw nitrogen/Creatinine [Mass ratio]30.0 mg/mgHigh 4.6-16.2[facility] HospitalComment on above:Performed By: #### [id number], [id number], [id number] #### [facility] (DEFAULT) [address] [place] [address] 37024BOZ w/ Auto Diffon 33-27-0301Psjotagmypy distribution width (RBC) [Ratio]14.8 %Kgcxuw00.5-15.0[facility] HospitalComment on above: Performed By: #### [id number], [id number], [id number] #### [facility] (DEFAULT) [address] [place] [address] 63955Mzytttnchi (Bld) [Volume fraction]37.2 %Bpybae39.7-40.4 [facility] HospitalComment on above:Performed By: #### [id number], [id number], [id number] #### [facility] (DEFAULT) [address] [place] [address] 01736Lxseiveegf (Bld) [Mass/Vol]11.6 g/yVOyvlbt58.3-15.9 [facility] ClinicComment on above:Performed By: #### [id number], [id number], [id number] #### [facility] (DEFAULT) [address] [place] [address] 88888Zfm Diff?AutoNormalCity Hospital HospitalComment on above: Performed By: #### [id number], [id number], [id number] #### [facility] (DEFAULT) [address] [place] [address] 71612VZI (RBC) [Entitic mass]26 ezQihlvx10-94Mdwtoquc Hospital Comment on above:Performed By: #### [id number], [id number], [id number] #### [facility] (DEFAULT) [address] [place] [address] 81991UHXI (RBC) [Mass/Vol]31 g/pLIlgydr94-98Zoowemmr Hospital Comment on above:Performed By: #### [id number], [id number], [id number] #### [facility] (DEFAULT) [address] [place] [address] 76914HTZ (RBC) [Entitic vol]83 jNJricaa50-167Iqgeajvh Hospital Comment on above:Performed By: #### [id number], [id number], [id number] #### [facility] (DEFAULT) [address] [place] [address] 66437Blznjydh mean volume (Bld) [Entitic vol]10.8 fLHigh 6.3-10.2MToledo HospitalComment on above:Performed By: #### [id number], [id number], [id number] #### [facility] (DEFAULT) [address] [place] [address] 66761Wncjzdqpr (Bld) [#/Vol]218 j52Mugsub977-677Pmrowrkm HospitalComment on above:Performed By: #### [id number], [id number], [id number] #### [facility] (DEFAULT) [address] [place] [address] 48487RTT (Bld) [#/Vol]4.47 o61Wwcjux6.70-5.30[facility] Hospital Comment on above:Performed By: #### [id number], [id number], [id number] #### [facility] (DEFAULT) [address] [place] [address] 19171PCS (Bld) [#/Vol]4.8 g02Polwfz8.5-10.5[facility] Comment on above:Performed By: #### [id number], [id number], [id number] #### [facility] (DEFAULT) [address] [place] [address] Rfpdi0zk 43-03-2772CMX (U) [#/Vol]None SeenNormal [facility] ClinicComment on above:Order Comment: Urinalysis Microscopic order added on by Seakeeper Expert Rules system.Performed By: #### [id number], [id number], [id number] #### [facility] (DEFAULT) [address] [place] [address] 94532MH Bacteria2+NormalCleveland ClinicComment on above:Order Comment: Urinalysis Microscopic order added on by Seakeeper Expert Rules system. Performed By: #### [id number], [id number], [id number] #### [facility] (DEFAULT) [address] [place] [address] 05652TG Squam EpiModerateNormalCity Hospital HospitalComment on above:Order Comment: Urinalysis Microscopic order added on by Seakeeper Expert Rules system.Performed By: #### [id number], [id number], [id number] #### [facility] (DEFAULT) [address] [place] [address] 26165SL WBC3-5NormTrinity Health System Twin City Medical CenterComment on above:Order Comment: Urinalysis Microscopic order added on by Seakeeper Expert Rules system. Performed By: #### [id number], [id number], [id number] #### [facility] (DEFAULT) [address] [place], [place] [address]UA w Culture if Ind Standardon 71-32-5174Fnlbqvveob UA NormalMagruder HospitalComment on above:Performed By: #### [id number], [id number], [id number] #### [facility] (DEFAULT) [address] [place] [address] 53401Nppxl (U)YellowNormalMagruder HospitalComment on above: Performed By: #### [id number], [id number], [id number] #### [facility] (DEFAULT) [address] [place] [address] 03511Ufysoeu?YesNormalMagruder HospitalComment on above: Performed By: #### [id number], [id number], [id number] #### [facility] (DEFAULT) [address] [place] [address] 92038Josecmq (U) [Mass/Vol]NegativeNormalMagruder Hospital Comment on above:Performed By: #### [id number], [id number], [id number] #### [facility] (DEFAULT) [address] [place] [address] 63937Txtvrge Ql (U)NegativeNormalMagruder HospitalComment on above:Performed By: #### [id number], [id number], [id number] #### [facility] (DEFAULT) [address] [place] [address] 63300Reosn?IndicatedMagruder HospitalComment on above:Performed By: #### [id number], [id number], [id number] #### [facility] (DEFAULT) [address] [place] [address] 08141PK BilirubinNegativeNormalMagruder HospitalComment on above:Performed By: #### [id number], [id number], [id number] #### [facility] (DEFAULT) [address] [place] [address] 03715CX BloodNegativeNormalNEGATIVEMagruder HospitalComment on above:Performed By: #### [id number], [id number], [id number] #### [facility] (DEFAULT) [address] [place] [address] 53789LY ClaritySL CLOUDYAbnormalCLEARMamercy health HospitalComment on above:Performed By: #### [id number], [id number], [id number] #### [facility] (DEFAULT) [address] [place] [address] 84363VK Leuk EstTRACEAbnormalNEGATIVECity Hospital HospitalComment on above:Performed By: #### [id number], [id number], [id number] #### [facility] (DEFAULT) [address] [place] [address] 69660XY NitriteNegativeNormalNEGATIVECity Hospital HospitalComment on above:Performed By: #### [id number], [id number], [id number] #### [facility] (DEFAULT) [address] [place] [address] 95565FE pH6.2Iozjwg6-4Snsqxbfs HospitalComment on above: Performed By: #### [id number], [id number], [id number] #### [facility] (DEFAULT) [address] [place] [address] 74505MQ ProteinNegativeNormalNEGATIVECity Hospital HospitalComment on above:Performed By: #### [id number], [id number], [id number] #### [facility] (DEFAULT) [address] [place] [address] 66057JB Spec Grav1.555Jerdax4.001-1.035[facility] HospitalComment on above:Performed By: #### [id number], [id number], [id number] #### [facility] (DEFAULT) [address] [place] [address] 13176CM Urobilinogen0.2 mg/dLNormal0.2-1.0[facility] Hospital Comment on above:Performed By: #### [id number], [id number], [id number] #### [facility] (DEFAULT) [address] [place] [address] 02469Ojyep SourceClean CatchNormalCity Hospital HospitalComment on above:Performed By: #### [id number], [id number], [id number] #### [facility] (DEFAULT) [address], [place] [address]BO Knee Complete Left Standingon 17-66-0145QA Knee Complete Left StandingEXAM: XR Knee Complete [...] Signature): Hieu Mcpherson 02/08/20 3:02 pm Technologist: [facility] Vital Signs Date TimeVital SignValuePerforming YaglzblbmLcvuktye89-98-4009 12:26-0400 Diastolic blood drvogvzi79 mm[Hg]Robert Ball DO Work Phone: [phone] [place], [place] 0564110-27-2025 12:26-0400 Heart rate71 /minBenjamin Ball DO Work Phone: 1(655)[address]10-27-2025 12:26-0400 SaO2% (BldA) [Mass fraction]98 %Robert Ball DO Work Phone: 1(884)557-[address] [place], [place] 0564110-27-2025 12:26-0400 Systolic blood gdsjcrvi987 mm[Hg]Robert Ball DO Work Phone: [phone])[phone] [place], [place] 0564109-15-2025 10:45-0400 Body vqyuql673.4 cmBenjamin Ball DO Work Phone: 1(319)[address]09-15-2025 10:45-0400 Body mass index (BMI) [Ratio]54.6 kg/i1Bfwcfmua Ball DO Work Phone: 1(168)868-[address] [place], [place] 0564109-15-2025 10:45-0400 Body csoycx081.77 kgBenjamin Ball DO Work Phone: 1(419)[address] [place], [place] 6045609-15-2025 10:45-0400 Diastolic blood wiycibby31 mm[Hg]Robert Ball DO Work Phone: 1(419)[address] [place], [place] 6045609-15-2025 10:45-0400 Heart rate81 /minBenjamin Ball DO Work Phone: 1(419)[address] [place], [place] 6045609-15-2025 10:45-0400 Respiratory rate12 /minBenjamin Ball DO Work Phone: 1(419)[address] [place], [place] 6045609-15-2025 10:45-0400 Systolic blood apniskjw060 mm[Hg]Robert Ball DO Work Phone: 1(419)[address] [place], [place] 6045607-22-2025 14:12-0400 Body jmjfym024.4 cmBenjamin Ball DO Work Phone: 1(419)[address] [place], [place] 6045607-22-2025 14:12-0400 Body mass index (BMI) [Ratio]53.8 kg/m0Rnebedhb Ball DO Work Phone: 1(419)[address] [place], [place] 6045607-22-2025 14:12-0400 Body xrbeff038.19 kgBenjamin Ball DO Work Phone: 1(419)[address] [place], [place] 6045607-22-2025 14:12-0400 Diastolic blood ixzwbbig26 mm[Hg]Robert Ball DO Work Phone: 1(419)[address] [place], [place] 6045607-22-2025 14:12-0400 Heart rate76 /minBenjamin Ball DO Work Phone: 1(419)[facility] [place], [place] 0564107-22-2025 14:12-0400 Respiratory rate12 /minBenjamin Ball DO Work Phone: 1(419)[address] [place], [place] 6045607-22-2025 14:12-0400 Systolic blood sayfospk066 mm[Hg]Robert Ball DO Work Phone: 1(419)[address] [place], [place] 6045607-18-2025 11:29-0400 Body ywkzkk016.4 cmBenjamin Ball DO Work Phone: 1(419)905-[address] [place], [place] 0564107-18-2025 11:29-0400 Body mass index (BMI) [Ratio]53.8 kg/w5Mpaohdri Ball DO Work Phone: 1419)[address] [place], [place] 6045607-18-2025 11:29-0400 Body lbxkmhfewlh65.4 [degF]Robert Ball DO Work Phone: 1419)[address] [place], [place] 6045607-18-2025 11:29-0400 Body .19 kgBenjamin Ball DO Work Phone: 1419)[address] [place], [place] 6045607-18-2025 11:29-0400 Diastolic blood mthaball31 mm[Hg]Robert Ball DO Work Phone: 1(896)[address] [place], [place] 6045607-18-2025 11:29-0400 Heart rate82 /minBenjamin Ball DO Work Phone: 1(107)[address] [place], [place] 6045607-18-2025 11:29-0400 SaO2% (BldA) [Mass fraction]96 %Robert Ball DO Work Phone: 1419)[address] [place], [place] 6045607-18-2025 11:29-0400 Systolic blood vueetaht424 mm[Hg]Robert Ball DO Work Phone: 1(890)[address] [place], [place] 6045606-19-2025 12:03-0400 Body .4 cmBenjamin Ball DO Work Phone: 1(606)[address] [place], [place] 6045606-19-2025 12:03-0400 Body mass index (BMI) [Ratio]53.3 kg/q5Tnkyzbqx Ball DO Work Phone: 1(431)[address] [place], [place] 6045606-19-2025 12:03-0400 Body aozadk582.83 kgBenjamin Ball DO Work Phone: 1419)[address] [place], [place] 6045606-19-2025 12:03-0400 Diastolic blood zeybolzt85 mm[Hg]Robert Ball DO Work Phone: 1(012)[address] [place], [place] 6045606-19-2025 12:03-0400 Heart rate82 /minBenjamin Ball DO Work Phone: [facility]06-19-2025 12:03-0400 Respiratory rate12 /minBenjamin Ball DO Work Phone: [facility]06-19-2025 12:03-0400 Systolic blood evcncjbh686 mm[Hg]Robert Ball DO Work Phone: [facility]06-09-2025 13:26-0400 Body cuivtg704.4 cmGood [facility]06-09-2025 13:26-0400Body mass index (BMI) [Ratio]53.3 kg/p2LnogijsthGood Samaritan Hospital06-09-2025 13:26-0400Body rjncih683.83 kgGood [facility]aritan Hospital06-09-2025 13:26-0400Diastolic blood joverymz47 mm[Hg][facility] 05-06-2025 13:26-0400Heart rate77 /[facility] 05-06-2025 13:26-0400Respiratory rate12 /[facility] 05-06-2025 13:26-0400Systolic blood jdlautqc312 mm[Hg][facility]06-09-2025 12:07-0400Diastolic blood mm[Hg][facility]06-09-2025 12:07-0400Heart rate75 /[facility]06-09-2025 12:07-4959DgX9% (BldA) [Mass fraction]96 %[facility]06-09-2025 12:07-0400Systolic blood kraaamgu900 mm[Hg][facility]05-19-2025 13:57-0400Body xtrkyk292.4 cmGood [facility]05-19-2025 13:57-0400Body mass index (BMI) [Ratio]53.4 kg/f4SkbwnvmqgGood Samaritan Hospital05-19-2025 13:57-0400Body kg [facility]05-19-2025 13:57-0400Diastolic blood jnowdtov90 mm[Hg][facility]05-19-2025 13:57-0400Heart rate77 /min [facility]05-19-2025 13:57-0400Respiratory rate18 /min [facility]05-19-2025 13:57-1388OeL5% (BldA) [Mass fraction]98 %[facility]05-19-2025 13:57-0400Systolic blood fpnhgfgy261 mm[Hg][facility]05-13-2025 10:22-0400 Body ywpofa332.4 cmGood [facility]05-13-2025 10:22-0400Body mass index (BMI) [Ratio]53.6 kg/f2XsujmbnqaGood Samaritan Hospital05-13-2025 10:22-0400Body lhqezm450.45 kgGood [facility]aritan Hospital05-13-2025 10:22-0400Diastolic blood zhhzcfga52 mm[Hg][facility] 04-09-2025 10:22-0400Heart rate92 /[facility] 04-09-2025 10:22-0400Respiratory rate12 /[facility] 04-09-2025 10:22-7726EsD1% (BldA) [Mass fraction]98 %[facility]05-13-2025 10:22-0400Systolic blood evwqzqvy195 mm[Hg][facility]04-23-2025 13:29-0400Body hhiqoy226.4 cmBenjamin Ball DO Work Phone: [facility]04-23-2025 13:29-0400 Body mass index (BMI) [Ratio]53.6 kg/d3Djglworv Ball DO Work Phone: [facility]04-23-2025 13:29-0400 Body .73 kgBenjamin Ball DO Work Phone: [facility]04-23-2025 13:29-0400 Diastolic blood kxhhhiqw51 mm[Hg]Robert Ball DO Work Phone: [facility]04-23-2025 13:29-0400 Heart rate88 /minBenjamin Ball DO Work Phone: 1(257)[facility] [place], [place] 0564104-23-2025 13:29-0400 SaO2% (BldA) [Mass fraction]97 %Robert Ball DO Work Phone: [phone])639-[address] [place], [place] 0564104-23-2025 13:29-0400 Systolic blood puyebpfe118 mm[Hg]Robert Ball DO Work Phone: 1419[facility] [place], [place] 0564104-01-2025 10:38-0400 Diastolic blood eloqchov80 mm[Hg]Robert Ball DO Work Phone: 1(026)[address] [place], [place] 6045604-01-2025 10:38-0400 Heart rate73 /minBenjamin Ball DO Work Phone: 1(882)[address] [place], [place] 6045604-01-2025 10:38-0400 SaO2% (BldA) [Mass fraction]99 %Robert Ball DO Work Phone: 1(584)[address] [place], [place] 6045604-01-2025 10:38-0400 Systolic blood jrqydugv667 mm[Hg]Robert Ball DO Work Phone: 1(383)[address] [place], [place] 6045602-19-2025 13:05-0500 Diastolic blood ouwqqytv56 mm[Hg]Robert Ball DO Work Phone: 1(126)[address] [place], [place] 6045602-19-2025 13:05-0500 Heart rate76 /minBenjamin Ball DO Work Phone: 1(736)[address] [place], [place] 6045602-19-2025 13:05-0500 SaO2% (BldA) [Mass fraction]98 %Robert Ball DO Work Phone: 1(939)[address] [place], [place] 6045602-19-2025 13:05-0500 Systolic blood gcdumjcl513 mm[Hg]Robert Ball DO Work Phone: [address] [place], [place] 6045602-07-2025 11:57-0500 Body shygof148.56 cmBenjamin Ball DO Work Phone: 1(788)[address] [place], [place] 6045602-07-2025 11:57-0500 Body mass index (BMI) [Ratio]48.1 kg/x2Fdhbnwas Ball DO Work Phone: 1419)[address] [place], [place] 6045602-07-2025 11:57-0500 Body .14 kgBenjamin Ball DO Work Phone: 1419)[address] [place], [place] 6045602-07-2025 11:57-0500 Diastolic blood sfyqecrc18 mm[Hg]Robert Ball DO Work Phone: 1419)[address] [place], [place] 6045602-07-2025 11:57-0500 Heart rate96 /minBenjamin Ball DO Work Phone: 1419)[address] [place], [place] 6045602-07-2025 11:57-0500 Respiratory rate12 /minBenjamin Ball DO Work Phone: 1419)[address] [place], [place] 6045602-07-2025 11:57-0500 Systolic blood mm[Hg]Robert Ball DO Work Phone: 1(039)[address] [place], [place] 6045601-29-2025 12:01-0500 Diastolic blood rihliiwk85 mm[Hg]Robert Ball DO Work Phone: 1(146)[address] [place], [place] 6045601-29-2025 12:01-0500 Heart rate70 /minBenjamin Ball DO Work Phone: 1(759)[address] [place], [place] 6045601-29-2025 12:01-0500 Respiratory rate16 /minBenjamin Ball DO Work Phone: 1(970)[address] [place], [place] 6045601-29-2025 12:01-0500 SaO2% (BldA) [Mass fraction]96 %Robert Ball DO Work Phone: 1(707)[address] [place], [place] 6045601-29-2025 12:01-0500 Systolic blood oexoiybl377 mm[Hg]Robert Ball DO Work Phone: 1(699)[address] [place], [place] 6045601-29-2025 11:26-0500 Inhaled oxygen flow rate4 L/minBenjamin Ball DO Work Phone: 1(507)[address] [place], [place] 6045601-29-2025 09:15-0500 Body prkcdy633.4 cmBenjamin Ball DO Work Phone: [facility]01-29-2025 09:15-0500 Body cvoqtn692.46 kgBenjamin Ball DO Work Phone: [facility]01-15-2025 13:50-0500 Body .56 cmGood [facility]itan [facility]01-15-2025 13:50-0500Body mass index (BMI) [Ratio]48.1 kg/m5XbtcytncfGood Samaritan Hospital01-15-2025 13:50-0500Body svfuuj560.26 kgGood [facility]aritan Hospital01-15-2025 13:50-0500Diastolic blood yoaikazy03 mm[Hg][facility] 12-12-2024 13:50-0500Heart rate89 /[facility] 12-12-2024 13:50-0500Respiratory rate16 /[facility] 12-12-2024 13:50-0500Systolic blood srbiyfco546 mm[Hg][facility]01-13-2025 13:38-0500Body gnvect677.56 cmGood [facility]aritan Hospital01-13-2025 13:38-0500Body mass index (BMI) [Ratio]48.2 kg/o6WvzjotnfnGood Samaritan Hospital01-13-2025 13:38-0500Body itizba239.45 kgGood Samaritan Hospital01-13-2025 13:38-0500Diastolic blood hhlpugtv39 mm[Hg] [facility]01-13-2025 13:38-0500Heart rate88 /[facility]01-13-2025 13:38-2471LnC1% (BldA) [Mass fraction]98 % [facility]01-13-2025 13:38-0500Systolic blood fiauhszq732 mm[Hg][facility]01-10-2025 11:02-0500Body wjugyb647.56 cm [facility]01-10-2025 11:02-0500Body mass index (BMI) [Ratio]48.3 kg/b5JjgqpnclhGood Samaritan Hospital01-10-2025 11:02-0500Body jnuyca039.68 kgGood [facility]aritan Hospital01-10-2025 11:02-0500Diastolic blood zoyauqig70 mm[Hg][facility]01-10-2025 11:02-0500 Heart rate96 /[facility]01-10-2025 11:02-0500 Respiratory rate12 /[facility]01-10-2025 11:02-0500 Systolic blood xokuiwnw965 mm[Hg][facility]10-08-2024 09:46-0400Diastolic blood vbbvcysy60 mm[Hg]DO Robert Ball Work Phone: 1(753)[address]10-08-2024 09:46-0400 Heart rate73 /minDO Robert Ball Work Phone: 1(277)[address]10-08-2024 09:46-0400 SaO2% (BldA) [Mass fraction]97 %DO Robert Ball Work Phone: 1(565)[address]10-08-2024 09:46-0400 Systolic blood lwiksanm113 mm[Hg]DO Robert Ball Work Phone: 1(168)[address]09-27-2024 11:03-0400 Heart rate97 /minDO Robert Ball Work Phone: 1(631)[address]09-27-2024 11:03-0400 SaO2% (BldA) [Mass fraction]96 %DO Robert Ball Work Phone: 1(282)417-[address] [place], [place] 0564109-13-2024 14:18-0400 Diastolic blood nmhwgfih08 mm[Hg]DO Robert Ball Work Phone: 1(249)[address]09-13-2024 14:18-0400 Heart rate73 /minDO Robert Ball Work Phone: 1(383)401-[address] [place], [place] 0564109-13-2024 14:18-0400 Respiratory rate16 /minDO Robert Ball Work Phone: 1(916)424-[address] [place], [place] 0564109-13-2024 14:18-0400 SaO2% (BldA) [Mass fraction]98 %DO Robert Ball Work Phone: 1(721)370-[address] [place], [place] 0564109-13-2024 14:18-0400 Systolic blood mm[Hg]DO Robert Ball Work Phone: 1419)[address]09-13-2024 12:13-0400 Body zqcgwa535.4 cmDO Robert Ball Work Phone: 1419)[address] [place], [place] 6045609-13-2024 12:13-0400 Body pkouhs549.2 kgDO Robert Ball Work Phone: 1419)[address] [place], [place] 6045609-09-2024 10:49-0400 Body snjioe381.4 cmDO Robert Ball Work Phone: 1419)[address] [place], [place] 6045609-09-2024 10:49-0400 Body mass index (BMI) [Ratio]54.5 kg/m2DO Robert Ball Work Phone: 1419)[address] [place], [place] 6045609-09-2024 10:49-0400 Body avtjoc069.6 kgDO Robert Ball Work Phone: 1(761)[address] [place], [place] 6045609-09-2024 10:49-0400 Diastolic blood zcjisozl42 mm[Hg]DO Robert Ball Work Phone: 1(933)[address] [place], [place] [id number] 10:49-0400 Heart rate65 /minDO Robert Ball Work Phone: 1(372)[address] [place], [place] [id number] 10:49-0400 Respiratory rate12 /minDO Robert Ball Work Phone: 1(916)[address] [place], [place] [id number] 10:49-0400 Systolic blood bbioyjsm336 mm[Hg]DO Robert Ball Work Phone: 1(313)[address] [place], [place] [id number] 11:13-0400 Diastolic blood keapmcft76 mm[Hg]DO Robert Ball Work Phone: 1(676)[address] [place], [place] [id number] 11:13-0400 Heart rate71 /minDO Robert Ball Work Phone: 1(360)[address] [place], [place] [id number] 11:13-0400 SaO2% (BldA) [Mass fraction]97 %DO Robert Ball Work Phone: [phone]09-03-2024 11:13-0400 Systolic blood utjvtwla486 mm[Hg]DO Robert Ball Work Phone: [phone]07-01-2024 14:21-0400 Body uwatlq599.4 cmDO Robert Ball Work Phone: [phone] [place], [place] [id number] 14:21-0400 Body mass index (BMI) [Ratio]52.1 kg/m2DO Robert Ball Work Phone: [phone]07-01-2024 14:21-0400 Body .1 kgDO Robert Ball Work Phone: [phone]07-01-2024 14:21-0400 Diastolic blood xhodjcpx71 mm[Hg]DO Robert Ball Work Phone: 1([phone] [place], [place] [id number] 14:21-0400 Heart rate68 /minDO Robert Ball Work Phone: [phone]07-01-2024 14:21-0400 Respiratory rate18 /minDO Robert Ball Work Phone: [phone]07-01-2024 14:21-0400 SaO2% (BldA) [Mass fraction]98 %DO Robert Ball Work Phone: [phone]07-01-2024 14:21-0400 Systolic blood smjhpfby415 mm[Hg]DO Robert Ball Work Phone: [phone]06-03-2024 15:05-0400 Diastolic blood mm[Hg][facility]06-03-2024 15:05-0400Heart rate98 /[facility]06-03-2024 15:05-8281IzX7% (BldA) [Mass fraction]97 %[facility] 04-30-2024 15:05-0400Systolic blood cnzavoeu571 mm[Hg][facility] [facility] 10:44-0400Body [facility]sluzx055.4 [facility] 10:44-0400Body mass index (BMI) [Ratio]53.6 kg/b7GfvjelpihGood Samaritan Hospital05-02-2024 10:44-0400Body dxznik273.45 kg[facility]05-[facility]-2024 10:44-0400Diastolic blood nsfhzeyy15 mm[Hg][facility]05-02-2024 10:44-0400Heart rate75 /[facility]05-02-2024 10:44-0400Respiratory rate16 /[facility]05-02-2024 10:44-0400Systolic blood lxfesytl327 mm[Hg][facility]03-20-2024 14:20-0400Body .4 cmDO Robert Ball Work Phone: [facility]03-20-2024 14:20-0400 Body mass index (BMI) [Ratio]53.1 kg/m2DO Robert Ball Work Phone: [facility]03-20-2024 14:20-0400 Body .37 kgDO Robert Ball Work Phone: [facility]03-20-2024 14:20-0400 Diastolic blood yugspwac91 mm[Hg]DO Robert Ball Work Phone: [facility]03-20-2024 14:20-0400 Heart rate77 /minDO Robert Ball Work Phone: [facility]03-20-2024 14:20-0400 Respiratory rate16 /minDO Robert Ball Work Phone: [facility]03-20-2024 14:20-0400 Systolic blood alapxgih839 mm[Hg]DO Robert Ball Work Phone: [facility]10-25-2023 14:00-0400 Body xpbamy233.4 cmBenjamin Ball Other [employer] Other 10-25-2023 14:00-0400Body mass index (BMI) [Ratio] 52.69 kg/s8Bwovjqee Ball Other [employer] Other 10-25-2023 14:00-0400Body .38 kgBenjamin Ball Other [employer] Other 10-25-2023 14:00-0400Diastolic blood mm[Hg] Robert Ball Other [employer] Other 10-25-2023 14:00-0400Respiratory rate20 /minBenjamin Ball Other [employer] Other 10-25-2023 14:00-0400Systolic blood qnacxiaw886 mm[Hg] Robert Ball Other [employer] Other 09-18-2023 15:00-0400Body ziyjus579.4 cmBenjamin Ball Other [employer] Other 09-18-2023 15:00-0400Body mass index (BMI) [Ratio] 54.33 kg/n9Rlnxzzvj Ball Other [employer] Other 09-18-2023 15:00-0400Body ahvgbf166.19 kgBenjamin Ball Other [employer] Other 09-18-2023 15:00-0400Diastolic blood izepsygg48 mm[Hg] Robert Ball Other [employer] Other 09-18-2023 15:00-0400Respiratory rate16 /minBenjamin Ball Other [employer] Other 09-18-2023 15:00-0400Systolic blood unuzihey620 mm[Hg] Robert Ball Other [employer] Other 08-14-2023 11:00-0400Body ahomrg920.4 cmBenjamin Ball Other [employer] Other 08-14-2023 11:00-0400Body mass index (BMI) [Ratio] 55.26 kg/y7Kjmharnn Ball Other [employer] Other 08-14-2023 11:00-0400Body eibytk268.37 kgBenjamin Ball Other [facility] [employer] Other 08-14-2023 11:00-0400Diastolic blood kzqjjoai25 mm[Hg] Robert Ball Other [employer] Other 08-14-2023 11:00-0400Respiratory rate16 /minBenjamin Ball Other [employer] Other 08-14-2023 11:00-0400Systolic blood ucsxgbli729 mm[Hg] Robert Ball Other [employer] Other 06-28-2023 14:00-0400Body rkxfiw371.4 cmBenjamin Ball Other [employer] Other 06-28-2023 14:00-0400Body mass index (BMI) [Ratio] 54.25 kg/j2Affxvnfi Ball Other [employer] Other 06-28-2023 14:00-0400Body jxvmaq343.01 kgBenjamin Ball Other [employer] Other 06-28-2023 14:00-0400Diastolic blood mm[Hg] Robert Ball Other [employer] Other 06-28-2023 14:00-0400Respiratory rate16 /minBenjamin Ball Other [employer] Other 06-28-2023 14:00-0400Systolic blood egfqcklu643 mm[Hg] Robert Ball Other [employer] Other 05-12-2023 12:15-0400Body hbfcfe199.4 cmBenjamin Ball Other [employer] Other 05-12-2023 12:15-0400Body mass index (BMI) [Ratio] 53.84 kg/x9Clyuklrm Ball Other [employer] Other 05-12-2023 12:15-0400Body ynulvg454.06 kgBenjamin Ball Other [employer] Other 05-12-2023 12:15-0400Diastolic blood esjbgnpc98 mm[Hg] Robert Ball Other [employer] Other 05-12-2023 12:15-0400Respiratory rate12 /minBenjamin Ball Other [employer] Other 05-12-2023 12:15-0400Systolic blood oukyodyu820 mm[Hg] Robert Ball Other [employer] Other 04-26-2023 14:30-0400Body gptnse467.4 cmBenjamin Ball Other [employer] Other 04-26-2023 14:30-0400Body mass index (BMI) [Ratio] 53.82 kg/s3Dhcxqiwz Ball Other [employer] Other 04-26-2023 14:30-0400Body .01 kgBenjamin Ball Other [employer] Other 04-26-2023 14:30-0400Diastolic blood mm[Hg] Robert Ball Other [employer] Other 04-26-2023 14:30-0400Respiratory rate12 /minBenjamin Ball Other [employer] Other 04-26-2023 14:30-0400Systolic blood mm[Hg] Robert Ball Other [employer] Other 04-05-2023 12:00-0400Body mejtrp532.4 cmBenjamin Ball Other [employer] Other 04-05-2023 12:00-0400Body mass index (BMI) [Ratio] 54.01 kg/y6Jevfltzg Ball Other [employer] Other 04-05-2023 12:00-0400Body zfrbpy077.47 kgBenjamin Ball Other [employer] Other 04-05-2023 12:00-0400Diastolic blood mm[Hg] Robert Ball Other [employer] Other 04-05-2023 12:00-0400Respiratory rate12 /minBenjamin Ball Other [facility] [employer] Other 04-05-2023 12:00-0400Systolic blood iyprhpyu428 mm[Hg] Robert Ball Other [facility] [employer] Other 03-20-2023 14:15-0400Body vbxrlu387.4 cmSherif Emelyn Other [employer] Other 03-20-2023 14:15-7047ZrQ4% (BldA) [Mass fraction]98 % Michael Dunaway Other [employer] Other 03-02-2023 15:00-0500Body gkfhuc770.4 cmSif Emelyn Other [employer] Other 03-02-2023 15:00-0500Diastolic blood jjtqywbm08 mm[Hg] Michael Dunaway Other [employer] Other 03-02-2023 15:00-3338OiK8% (BldA) [Mass fraction]98 % Michael [facility]unaway Other [facility] Other 03-02-2023 15:00-0500Systolic blood zktnrjbu689 mm[Hg] Michael Dunaway Other [employer] Other 02-03-2023 12:30-0500Body .4 cmSherif Emelyn Other [employer] Other 02-03-2023 12:30-1545CnI6% (BldA) [Mass fraction]96 % Michael Dunaway Other [employer] Other 01-30-2023 11:15-0500Body zceuxk713.4 cmIvon Batista Other [employer] Other 01-30-2023 11:15-0500Body mass index (BMI) [Ratio] 53.08 kg/w7QoubigIvon Batista Other [employer] Other 01-30-2023 11:15-0500Body grilyzqaezc34 [degF]Ivon Eusebio Other [employer] Other 01-30-2023 11:15-0500Body jeqmlm677.29 kgIvon Eusebio Other [employer] Other 01-30-2023 11:15-0500Diastolic blood nnfcaoro44 mm[Hg] Ivon Batista Other [employer] Other 01-30-2023 11:15-3321YcP0% (BldA) [Mass fraction]96 % Ivon Batista Other [employer] Other 01-30-2023 11:15-0500Systolic blood uogofiok827 mm[Hg] Ivon Batista Other [employer] Other 01-05-2023 11:45-0500Body ehdmyp986.4 cmPegvishal Velarde Other [employer] Other 01-05-2023 11:45-0500Diastolic blood xqdxrjvu70 mm[Hg] Ursula Velarde Other [employer] Other 01-05-2023 11:45-4384BfS9% (BldA) [Mass fraction]97 % Ursula Velarde Other [employer] Other 01-05-2023 11:45-0500Systolic blood tihouigh907 mm[Hg] Ursula Velarde Other [facility] Other 12-06-2022 12:15-0500Body .4 cmSraúl Dunaway Other [facility] Other 12-06-2022 12:15-0500Diastolic blood hhmgvhys01 mm[Hg] Michael Dunaway Other [facility] Other 12-06-2022 12:15-1722TcZ2% (BldA) [Mass fraction]98 % Michael Dunaway Other [facility] Other 12-06-2022 12:15-0500Systolic blood ljscbogh319 mm[Hg] Michael Dunaway Other [employer] Other 10-15-2022 11:55-0400Body .4 Mariam Foy Other [facility] Other 10-15-2022 11:55-0400Body mass index (BMI) [Ratio] 50.77 kg/k0WkwbfKaitlynn Foy Other [facility] Other 10-15-2022 11:55-0400Body avqrpkcvebp62.8 [degF]Kaitlynn Foy Other [facility] Other 10-15-2022 11:55-0400Body ithwam475.94 kgKaitlynn Foy Other [facility] [employer] Other 10-15-2022 11:55-0400Respiratory rate18 /minAmber Law Other [facility] Other 10-15-2022 11:55-3085YpZ5% (BldA) [Mass fraction]97 % Kaitlynn Law Other [facility] Other 10-14-2022 12:30-0400Body eearua166.4 cmSherif Emelyn Other [employer] Other 10-14-2022 12:30-0400Diastolic blood pxxrbets55 mm[Hg] Michael Emelyn Other [employer] Other 10-14-2022 12:30-0700MeK2% (BldA) [Mass fraction]99 % Michaelrancho Dunaway Other [employer] Other 10-14-2022 12:30-0400Systolic blood mm[Hg] Michael Emelyn Other [employer] Other 09-01-2022 17:45-0400Body mlnobl853.4 cmSherif Emelyn Other [employer] Other 09-01-2022 17:45-0400Diastolic blood mgeqtnrd20 mm[Hg] Michael Emelyn Other [employer] Other 09-01-2022 17:45-9236DbD4% (BldA) [Mass fraction]99 % Michael Emelyn Other [employer] Other 09-01-2022 17:45-0400Systolic blood tprnxugy246 mm[Hg] Michael Anthonyky Other [employer] Other 08-05-2022 13:00-0400Body ouhaab643.4 cmSraúl Dunaway Other [employer] Other 08-05-2022 13:00-0400Body mass index (BMI) [Ratio] 53.97 kg/a4HltymlMichael Dunaway Other [employer] Other 08-05-2022 13:00-0400Body vprfed742.38 kgEvanseduardkash Dunaway Other [employer] Other 08-05-2022 13:00-0400Diastolic blood eilzzzob81 mm[Hg] Michael Emelyn Other [employer] Other 08-05-2022 13:00-7969NuT1% (BldA) [Mass fraction]97 % Michael Emelyn Other [employer] Other 08-05-2022 13:00-0400Systolic blood evsnofxm663 mm[Hg] Michael Dunaway Other [employer] Other 07-27-2022 12:52-0400Diastolic blood mm[Hg] DO Robert Ball Work Phone: [facility]07-27-2022 12:52-0400 Heart rate73 /minDO Robert Ball Work Phone: [facility]07-27-2022 12:52-0400 Respiratory rate20 /minDO Robert Ball Work Phone: [facility]07-27-2022 12:52-0400 SaO2% (BldA) [Mass fraction]97 %DO [employer] Work Phone: [facility]07-27-2022 12:52-0400 Systolic blood dspvynsd480 mm[Hg]DO Robert Red Mapache Work Phone: [facility]07-27-2022 12:16-0400 Inhaled oxygen flow rate3 L/minDO Robert Red Mapache Work Phone: [facility]07-27-2022 10:24-0400 Body bipjil637.4 cmDO Robert Red Mapache Work Phone: [facility]07-27-2022 10:24-0400 Body urkxag358.37 kgDO Robert Red Mapache Work Phone: [facility]07-22-2022 12:15-0400 Body ibjzxu528.4 cmSraúl Dunaway Other [employer] Other 07-22-2022 12:15-0400Body mass index (BMI) [Ratio] 53.19 kg/v8Xxshbxsunni Dunaway Other [employer] Other 07-22-2022 12:15-0400Body vorsoj368.56 kgSheduardkash Emelyn Other [facility] [employer] Other 07-22-2022 12:15-0400Diastolic blood acnqywtd78 mm[Hg] Michael Dunaway Other [employer] Other 07-22-2022 12:15-7215GyF3% (BldA) [Mass fraction]96 % Michael [facility]unaway Other [facility] Other 07-22-2022 12:15-0400Systolic blood osmmzxhv413 mm[Hg] Michael Dunaway Other [facility] [employer] Other 06-08-2022 06:31-0400Body ljaldk720.4 cmDO Robert Red Mapache Work Phone: [facility]06-08-2022 06:31-0400 Body mass index (BMI) [Ratio]51.7 kg/m2DO Robert Red Mapache Work Phone: [facility]06-08-2022 06:31-0400 Body itneyg971.2 kgDO Robert Red Mapache Work Phone: [facility]04-14-2022 17:15-0400 Body gimsiv173.4 cmSraúl Dunaway Other [employer] Other 04-14-2022 17:15-0400Diastolic blood adwspsqo62 mm[Hg] Michael Dunaway Other [employer] Other 04-14-2022 17:15-6925BpH0% (BldA) [Mass fraction]98 % Michael Dunaway Other [employer] Other 04-14-2022 17:15-0400Systolic blood jbtfdkej186 mm[Hg] Michael Dunaway Other [employer] Other 04-07-2022 09:59-0400Blood Pressure LocationMichael NILL [phone]-[facility] [place] 04-07-2022 09:59-0400Diastolic blood ormxyglw13 mm[Hg] Taye NILL [phone]-WhyjkLakehealth [facility] [place] 04-07-2022 09:59-0400Heart rate72 /minMichael NILL [phone]-UuyjzLakehealth [facility] [place] 04-07-2022 09:59-0400Respiratory rate20 /minMichael NILL [phone]-FarknLakehealth [facility] [place] 04-07-2022 09:59-0400Systolic blood nhbbdmod174 mm[Hg] Taye MUROL [phone]-MxobsWay[facility] [place] 03-24-2022 17:00-0400Body donvoy373.4 cmSraúl Dunaway Other [employer] Other 03-24-2022 17:00-0400Body mass index (BMI) [Ratio] 53.51 kg/e3QjzzctMichael Dunaway Other [facility] [employer] Other 03-24-2022 17:00-0400Body irmkzd429.29 kgShsunni Dunaway Other [facility] [employer] Other 03-24-2022 17:00-0400Diastolic blood tznxoqoe38 mm[Hg] Michael Dunaway Other [facility] Other 03-24-2022 17:00-5041EjN1% (BldA) [Mass fraction]94 % Michael Dunaway Other [employer] Other 03-24-2022 17:00-0400Systolic blood wcyxsigk340 mm[Hg] Michael Dunaway Other [employer] Other 03-03-2022 17:00-0500Body aklibi139.4 cmDale Batista Other [employer] Other 03-03-2022 17:00-0500Body mass index (BMI) [Ratio] 50.38 kg/m2Dale Batista Other [employer] Other 03-03-2022 17:00-0500Body .03 kgDale Batista Other [employer] Other 2021 12:20-0500Body uoakpe787.4 cmPamela Iris Other [employer] Other 2021 12:20-0500Body mass index (BMI) [Ratio] 50.38 kg/c2Xmijfc Iris Other [employer] Other 2021 12:20-0500Body acbjrznmffc93.9 [degF]Quita Iris Other [employer] Other 2021 12:20-0500Body tgibet792.03 kgPajimena Simmons Other [employer] Other 2021 12:20-0500Diastolic blood xiglbrch30 mm[Hg] Quita Iris Other [employer] Other 2021 12:20-0500Respiratory rate18 /minPaalyssaa Iris Other [employer] Other 2021 12:20-0977JqN6% (BldA) [Mass fraction]96 % Quita Iris Other [employer] Other 2021 12:20-0500Systolic blood htynwtgn453 mm[Hg] Quita Simmons Other [employer] Other Encounters Encounter DateEncounter TypeCare ProviderFacilityStart: 09-23-2025 End: 38-11-6171tpneerjkxmIwabqhnv Ball DO Work Phone: [phone]-[facility]qcvvxf[facility] Pain MgmtStart: 09-23-2025 End: 32-27-3362Ysnhdtg encounter procedureSraúl Dunaway MD-[facility] Work Phone: Start: 08-12-2025 End: 64-20-8056cuwdxekoxzHcpcgyuh Ball DO Work Phone: [facility] Work Phone: Start: 08-12-2025 End: 21-27-5483Aqasqoi encounter procedureBenjamin Ball DO-[facility] Work Phone: Start: 06-18-2025 End: 78-97-7348qzcgfwlkfmEzbxvxro Ball DO Work Phone: [facility] Work Phone: Start: 06-18-2025 End: 77-47-7761Mjxexpd encounter procedureBenjamin Ball DO-[facility] Work Phone: Start: 06-14-2025 End: 54-19-1925zusfursbtlLcvehrpd Ball DO Work Phone: [facility] Work Phone: Start: 06-14-2025 End: 90-45-4632Qymcivs encounter procedureMorena Donato APRN [employer]INE SET UP OPERATOR-[facility] Work Phone: Start: 05-16-2025 End: 95-33-1516Mqnpzbc encounter procedureBenjamin Ball DO-[facility] Work Phone: Start: 05-09-2025 End: 10-81-4010Bpgdru flowsheetSammantha Harper PTNOMS CI PTStart: 05-09-2025 End: 02-40-2450Bofcwe flowsheetSammantha Harper PTNOMS CI PTStart: 05-09-2025 End: 33-83-7023unxhnwhedhObueplyfd Harper PTNOMS CI PTComment on above:Low back pain, unspecified back pain laterality, unspecified chronicity, unspecified whether sciatica present (Primary Dx)Start: 05-07-2025 End: 03-58-6160Oouwct Kathy Loco PTANO CI PTStart: 05-07-2025 End: 87-39-3249Ntujfg Kathy Loco PTANO CI PTStart: 05-07-2025 End: 37-63-8357vjdkykkzdnUdwxlav Lawrence PTANO CI PTComment on above:Low back pain, unspecified back pain laterality, unspecified chronicity, unspecified whether sciatica present (Primary Dx)Start: 05-06-2025 End: 31-56-3420icoihyvvgmGppdzsgysJ.W. [facility] Work Phone: Start: 05-06-2025 End: 71-83-9471Zoynrzi encounter procedureAdventhealth [facility] Work Phone: Start: 05-06-2025 End: 87-61-6773pkzsbhoiylLizwqqkncJ.W. [facility] Work Phone: Start: 05-06-2025 End: 08-72-7374Pcnnrso encounter procedureAdventhealth [facility] Physician [facility] Work Phone: Start: 05-03-2025 End: 53-13-2270Emilhy flowsheetSammantha Harper PTNOMS CI PTStart: 05-03-2025 End: 30-71-9680Vjtdhs flowsheetSammantha Harper PTNOMS CI PTStart: 05-03-2025 End: 18-63-9605tnxgzednccBjqhrmpvk Harper PTNOMS CI PTComment on above:Low back pain, unspecified back pain laterality, unspecified chronicity, unspecified whether sciatica present (Primary Dx)Start: 04-30-2025 End: 84-21-0293Zdajim Kathy STACK CI PTStart: 04-30-2025 End: 18-29-8933Ocnpji Kathy STACK CI PTStart: 04-30-2025 End: 32-69-8527cltfknuymmUPAQKZRDesi HOLLOWAY HealthcareComment on above:Low back pain, unspecified back pain laterality, unspecified chronicity, unspecified whether sciatica present (Primary Dx)Start: 04-26-2025 End: 98-14-0931Ucnlpu Kathy STACK CI PTStart: 04-26-2025 End: 01-04-7876Eudbjv Kathy STACK CI PTStart: 04-26-2025 End: 20-33-2857gevehguzayNtowdlnDesi STACK CI PTComment on above:Low back pain, unspecified back pain laterality, unspecified chronicity, unspecified whether sciatica present (Primary Dx)Start: 04-23-2025 End: 52-91-1317trowqzsiieKeafsydDesi STACK CI PTComment on above:Low back pain, unspecified back pain laterality, unspecified chronicity, unspecified whether sciatica present (Primary Dx)Start: 04-23-2025 End: 54-29-5424Hpknek Kathy STACK CI PTStart: 04-23-2025 End: 87-87-5397Fpqwqx Kathy STACK CI PTStart: 04-19-2025 End: 22-74-0661qsngvlnohvNKBLBDUZM SCHNEIDERNot AvailableStart: 74-65-8029Jke- patient / Non-visitAdventhealth Hendersonville [facility] Work Phone: Start: 04-15-2025 End: 83-83-3547Abgure miriheetSbob Harper PTNOMS CI PTStart: 04-15-2025 End: 91-32-3901Lfvvdp miriheetSbob Harper PTNOMS CI PTStart: 04-15-2025 End: 53-68-7949Slgymbk encounter procedureAdventhealth Hendersonville Physician GroupAt[facility] Work Phone: Start: 04-15-2025 End: 39-36-0934uzccycmycgIuxttnqio Harper PTNOMS CI PTComment on above:Low back pain, unspecified back pain laterality, unspecified chronicity, unspecified whether sciatica present (Primary Dx)Start: 04-11-2025 End: 20-26-1113Cuuaqe flowsheetSammantha Harper PTNOMS CI PTStart: 04-11-2025 End: 23-70-8396Lemgok flowsheetSammantha Harper PTNOMS CI PTStart: 04-11-2025 End: 74-88-9319cjkpshrnjeLceqatfti Harper PTNOMS CI PTComment on above:Low back pain, unspecified back pain laterality, unspecified chronicity, unspecified whether sciatica present (Primary Dx)Start: 04-09-2025 End: 92-87-2528kxwcrqtvkfFyntlqqdyJ.W. [facility] Work Phone: Start: 04-09-2025 End: 30-15-0491Weseqoj encounter procedureAdventhealth [facility] Physician [facility] Work Phone: Start: 04-04-2025 End: 41-48-6113hiazlkhgpyLoidexi Lawrence KODAKNO CI PTComment on above:Low back pain, unspecified back pain laterality, unspecified chronicity, unspecified whether sciatica present (Primary Dx)Start: 04-04-2025 End: 77-92-3405Oqthmg Michellegrecia Loco KODAKNO CI PTStart: 04-04-2025 End: 83-34-2822Oaqwnx Michellegrecia Xiao CANDELARIONO CI PTStart: 04-01-2025 End: 95-05-8908ppcdgwojaiPcsuckyzf Schneider PTNOMS CI PTComment on above:Low back pain, unspecified back pain laterality, unspecified chronicity, unspecified whether sciatica present (Primary Dx)Start: 03-28-2025 End: 79-11-7247lotixnriscFhywtsucvJ.W. [facility] Hospital Work Phone: Start: 03-28-2025 End: 65-25-4944Gagqsfw encounter procedureRoyal [facility] Work Phone: Start: 03-21-2025 End: 55-63-5233Ppneyi flowsheetSammantha Harper PTNOMS CI PTStart: 03-21-2025 End: 41-60-1170Rlxapq flowsheetSammantha Harper PTNOMS CI PTStart: 03-21-2025 End: 02-70-3119ojqfndgeucKomvkqcbn Harper PTNOMS CI PTComment on above:Low back pain, unspecified back pain laterality, unspecified chronicity, unspecified whether sciatica present (Primary Dx)Start: 03-20-2025 End: 69-68-0508ggpojzypqgLzzbtnpt Ball DO Work Phone: [facility] Work Phone: start: 03-20-2025 End: 44-13-0930Gxtjsex encounter procedureBenjamin Ball DO Work Phone: [facility] Work Phone: Start: 03-14-2025 End: 23-19-2662Xascbv flowsheetSammantha Harper PTNOMS CI PTStart: 03-14-2025 End: 44-19-3796Aygudm flowsheetSammantha Harper PTNOMS CI PTStart: 03-14-2025 End: 49-17-7074axojcsrtkvKudmvfzzl Harper PTNOMS CI PTComment on above:Low back pain, unspecified back pain laterality, unspecified chronicity, unspecified whether sciatica present (Primary Dx)Start: 03-12-2025 End: 66-78-8429silcqufavyYtqckcwo Ball DO Work Phone: [facility] Work Phone: start: 03-12-2025 End: 34-55-4957Dvrlxkz encounter procedureBenjamin Ball DO Work Phone: [facility] Work Phone: Start: 95-54-8414Vnn-patient / Non-visitBenjamin Ball DO Work Phone: [facility] Work Phone: Start: 02-28-2025 End: 09-31-2894Ovsiai flowsheetSammantha Harper PTNOMS CI PTStart: 02-28-2025 End: 37-08-6231Ljofsc flowsheetSammantha Harper PTNOMS CI PTStart: 02-28-2025 End: 00-36-7681exyeqntyarJgzbdfupz Harper PTNOMS CI PTComment on above:Low back pain, unspecified back pain laterality, unspecified chronicity, unspecified whether sciatica present (Primary Dx)Start: 02-26-2025 End: 10-86-0047xhgtryyxalIamvhnl R NILLFacility: BellevueStart: 02-26-2025 End: 52-27-5566oalfbcixrbIithhkft Ball DO Work Phone: [facility] Work Phone: Start: 02-26-2025 End: 64-28-4731Uglgmvt encounter procedureBenjamin Ball DO Work Phone: [facility] Work Phone: Start: 02-25-2025 End: 09-39-2156Gerujg flowsheetMelissa Kelbley PTANOMS CI PTStart: 02-25-2025 End: 65-90-3512Azdeeu flowsheetMelissa Kelbley PTANOMS CI PTStart: 02-25-2025 End: 86-44-9599qgmrdjwaqeIwdwyaf Kelbley PTANOMS CI PTComment on above:Low back pain, unspecified back pain laterality, unspecified chronicity, unspecified whether sciatica present (Primary Dx)Start: 88-57-8790tmbyyebiayAudfaqa NILL Facility: [place]vueStart: 02-20-2025 End: 96-92-1632Zkfyoq flowsheetMelissa Kelbley PTANOMS CI PTStart: 02-20-2025 End: 03-79-5770Omyfox flowsheetMelissa Kelbley PTANOMS CI PTStart: 02-20-2025 End: 52-34-1792bbdhiynimuFafthwx Kelbley PTANOMS CI PTComment on above:Low back pain, unspecified back pain laterality, unspecified chronicity, unspecified whether sciatica present (Primary Dx)Start: 13-80-0327Tlp-patient / Non-visit Robert Vail DO Work Phone: [facility] Work Phone: Start: 02-14-2025 End: 92-83-9079dhwjpxsmtwApqxbtyu Ball DO Work Phone: [facility] Work Phone: Start: 02-14-2025 End: 61-80-6344Zbzffyl encounter procedureBenmeagan Ball DO Work Phone: [facility] Work Phone: Start: 02-13-2025 End: 96-47-2750hrnbxhrulxZGKBHBS LAWRENCENot AvailableStart: 02-07-2025 End: 15-86-5267Ilghag flowsheetMelissa Kelbley PTANOMS CI PTStart: 02-07-2025 End: 65-00-6436Whbrnv flowsheetMelissa Kelbley PTANOMS CI PTStart: 02-07-2025 End: 05-54-1120wygvdstnvxHxfwdct Kelbley PTANOMS CI PTComment on above:Low back pain, unspecified back pain laterality, unspecified chronicity, unspecified whether sciatica present (Primary Dx)Start: 02-04-2025 End: 93-26-2383ortdpylvyyFZAZNZK KELBLEYNot AvailableStart: 01-28-2025 End: 17-70-9308Wjdlvwyun encounterSammantha Leroy PTNOMS CI PTComment on above:Cx PT 01/28/25Start: 01-23-2025 End: 73-24-0386Laxhob flowsheetSammantha Leroy PTNOMS CI PTStart: 01-23-2025 End: 69-46-0706Wgeslx flowsheetSammantha Harper PTNOMS CI PTStart: 01-23-2025 End: 58-70-0746ujayvssawmXqnxkqfrc Harper PTNOMS CI PTComment on above:Low back pain, unspecified back pain laterality, unspecified chronicity, unspecified whether sciatica present (Primary Dx)Start: 01-21-2025 End: 69-99-8045wmpbtcbxqxEqjtyneDesi Loco PTANOMS CI PTComment on above:Low back pain, unspecified back pain laterality, unspecified chronicity, unspecified whether sciatica present (Primary Dx)Start: 01-21-2025 End: 78-44-1549Rrfnat flowsNolvia Loco PTANOMS CI PTStart: 01-21-2025 End: 63-26-5526Biefkq Kathy Loco PTANOMS CI PTStart: 01-17-2025 End: 79-39-8244Zuenod Kathy Loco PTANOMS CI PTStart: 01-17-2025 End: 79-01-2130Kchhhu Kathy Loco PTANOMS CI PTStart: 01-17-2025 End: 03-49-8473qzoqtypamgIpheuny Lawrence PTANOMS CI PTComment on above:Low back pain, unspecified back pain laterality, unspecified chronicity, unspecified whether sciatica present (Primary Dx)Start: 01-16-2025 End: 90-20-0537cnkywlewwtDbibjovv Ball DO Work Phone: [facility] Work Phone: Start: 01-16-2025 End: 36-26-2547Outqsmg encounter procedureBenjamin Ball DO Work Phone: [facility] Work Phone: Start: 01-14-2025 End: 26-89-4318Fpiqwn flowsheetSammantha Harper PTNOMS CI PTStart: 01-14-2025 End: 80-08-2250Lazlaj flowsheetSammantha Harper PTNOMS CI PTStart: 01-14-2025 End: 63-70-6161pjaobzpdcxEkshywmey Harper PTNOMS CI PTComment on above:Low back pain, unspecified back pain laterality, unspecified chronicity, unspecified whether sciatica present (Primary Dx)Start: 01-04-2025 End: 97-90-4715tvinvwlcejDcujwdae Ball DO Work Phone: [facility] Work Phone: Start: 01-04-2025 End: 88-21-3917Fmuirlw encounter procedureBenjamin Ball DO Work Phone: [facility] Work Phone: Start: 27-80-3201Ano-patient / Non-visitBenjamin Ball DO Work Phone: [facility] Work Phone: Start: 12-26-2024 End: 66-98-9627Shutcwkxi to same day surgery centerBenjocemin Ball DO Work Phone: [facility] Work Phone: Start: 12-26-2024 End: 36-85-5121rjobchnsfmPiiywxmj Ball DO Work Phone: [facility] Work Phone: Start: 12-24-2024 End: 25-11-5867sctdxneadjFxjrpzyt Ball DO Work Phone: [facility] Work Phone: Start: 12-24-2024 End: 15-17-5772Tktllhv encounter procedureBenjamin Ball DO Work Phone: [facility] [place] Work Phone: Start: 12-12-2024 End: 99-93-4367nlstooqogyAdoxsvfooUniversity [facility]als [facility] Work Phone: Start: 12-12-2024 End: 60-99-7221Holuaib encounter procedureAdventhealth [facility] GroupHealth[facility] Work Phone: Start: 80-63-4617Hwf-patient / Non-visitFirelbert Physician Group-[facility] Work Phone: Start: 12-10-2024 End: 99-07-8901uvjqufwggsAlnruljciPremier Health [facility] Work Phone: Start: 12-10-2024 End: 91-22-2149Dtefeix encounter procedureAdventhealth [facility] Work Phone: Start: 12-07-2024 End: 47-47-1475hnznzalwcxTnnbdefwfPremier Health [facility] Work Phone: Start: 12-07-2024 End: 70-13-5535Nudedjf encounter procedureAd[facility]health [facility] Work Phone: start: 09-04-2024 End: 18-70-9927kmmacihcaqCP [facility] Work Phone: [facility] Work Phone: Start: 09-04-2024 End: 30-36-2414Spckjow encounter procedureDO [facility] Work Phone: [facility] Pain Management Work Phone: Start: 08-28-2024 End: 00-10-1611fwxkjvbyyjSK [facility] Work Phone: [facility] Work Phone: Start: 08-28-2024 End: 13-15-8346Czmpdzp encounter procedureDO Robert Vail Work Phone: [facility] Work Phone: Start: 04-07-3820Tzx-patient / Non-visitDO Robert Vail Work Phone: [facility] Work Phone: Start: 08-24-2024 End: 60-05-7687qrdafspndjUP Robert Vail Work Phone: [facility] Work Phone: Start: 08-24-2024 End: 97-75-6706Qhuzjed encounter procedureDO Robert Vail Work Phone: [facility] Work Phone: Start: 88-13-1292Reo-patient / Non-visitDO Robert Vail Work Phone: [facility] Work Phone: Start: 08-10-2024 End: 87-78-4584Oyhonozbt to same day surgery centerDO Robert Vail Work Phone: [facility] Work Phone: Start: 08-10-2024 End: 97-86-5670mctozvhcciUN Robert Vail Work Phone: [facility] Work Phone: Start: 08-09-2024 End: 69-01-0425Nokwgll encounter procedureDO Robert Vail Work Phone: [facility] [place] Work Phone: Start: 08-09-2024 End: 99-36-8750hxeuvlueghQK Robert Vail Work Phone: [facility] Work Phone: Start: 08-06-2024 End: 42-73-3553lfvhqqoprfKM Robert Vail Work Phone: [facility] Work Phone: Start: 08-06-2024 End: 43-49-4524Jkovxax encounter procedureDO Robert Vail Work Phone: [facility] Work Phone: Start: 07-31-2024 End: 98-34-1690bnfclfrgjnBI Robert Vail Work Phone: [facility] Work Phone: Start: 07-31-2024 End: 21-76-4387Rebrkko encounter procedureDO Robert Vail Work Phone: [facility] Work Phone: Start: 06-15-2024 End: 81-58-4484Buytqdl encounter procedureDO Robert Vail Work Phone: [facility] [place] Work Phone: Start: 06-15-2024 End: 86-87-9183vkvjoohpvyJV Robert Vail Work Phone: [facility] Work Phone: Start: 05-28-2024 End: 14-01-4708otorkejnneRY Robert Vail Work Phone: [facility] Work Phone: Start: 05-28-2024 End: 14-47-1042Nxargms encounter procedureDO Robert Vail Work Phone: [facility] Work Phone: Start: 38-60-6972Bmy-patient / Non-visitDO Robert Vail Work Phone: [facility] Work Phone: Start: 05-10-2024 End: 26-95-2913bmgkckdccfKK Robert Vail Work Phone: [facility] Work Phone: Start: 05-10-2024 End: 22-95-4404Kkmdido encounter procedureDO Robert Vail Work Phone: [facility] Work Phone: Start: 30-62-6541Axg-patient / Non-visitDO Robert Vail Work Phone: [facility] Work Phone: Start: 05-09-2024 End: 49-84-5381pksjzdozdxFS Robert Vail Work Phone: [facility] Work Phone: Start: 05-09-2024 End: 77-08-9841Mbzbhfx encounter procedureDO Robert Vail Work Phone: [facility] [place] Work Phone: Start: 05-07-2024 End: 33-11-9879Blhovfw encounter procedureDO Robert Vail Work Phone: [facility] [place] Work Phone: Start: 05-07-2024 End: 32-12-9570bcqgpdpvnsMO Robert Vail Work Phone: [facility] Work Phone: Start: 04-30-2024 End: 46-52-3514anrjzlcgagVhfrcxkmr [facility] Work Phone: Start: 04-30-2024 End: 30-67-2398Ncoqbig encounter procedureFirelberts Physician Group-[facility] Pain Management Work Phone: Start: 77-10-6414Vcn-patient / Non-visitFirelands Physician Group-[facility] Work Phone: Start: 03-29-2024 End: 05-83-3744Owcvnyr encounter procedureFirelands Physician Group-[facility] Work Phone: Start: 90-48-0054Zhr-patient / Non-visitFirelands Physician Group-[facility] Work Phone: Start: 02-15-2024 End: 57-24-5941rldmsutimuTX Robert Vail Work Phone: [facility] Work Phone: Start: 02-15-2024 End: 74-15-3141Bdauesj encounter procedureDO Robert Vail Work Phone: [facility] Work Phone: Start: 01-12-2024 End: 75-56-4739ywpygfnsssTS Robert Vail Work Phone: [facility] Work Phone: Start: 01-12-2024 End: 02-47-9113Eirutlku ReferredDO Robert Vail Work Phone: [facility] [place] Work Phone: Start: 12-29-2023 End: 43-86-6186zndeftlqlbTjsxwtsi Ball Other [employer] Other Start: 45-82-4495Atlcohgpb encounterBenjamin BallFPG [facility] ClinicStart: 12-22-2023 End: 22-66-9472iifelqcgocCxxxjufs Ball Other [employer] Other Start: 57-05-0126Ewyhll outpatient visit 25 minutes Robert BallFPG [facility] ClinicStart: 12-09-2023 End: 26-63-0962fjfcogwhdhMoxbdcoz Ball Other [employer] Other Start: 35-56-7155Iidotv outpatient visit 15 minutes Robert BallFPG [facility] ClinicStart: 98-00-2374Sgdmfee encounter procedure DO Robert Vail Work Phone: [facility]-Start: 11-11-2023 End: 58-68-9856gjzcryghkxWaxdkorc Ball Other [employer] Other Start: 93-99-7749Fijkxjjxm encounterBenjamin BallFPG [facility] ClinicStart: 11-10-2023 End: 53-21-2552kkfetkexsuPsclfrrw Ball Other [employer] Other Start: 48-50-9625Aaqqcixkr encounterBenjamin BallFPG [facility] ClinicStart: 11-04-2023 End: 89-96-0453udrmkktoeyOlsvskmb Ball Other [employer] Other Start: 08-79-0495Futuoxurp encounterBenjamin BallFPG [facility] ClinicStart: 10-19-2023 End: 28-50-3340waaihxdbkxUbzecmnn Ball Other [employer] Other Start: 58-72-0862Lwtwpkrbv encounterBenjamin BallFPG [facility] ClinicStart: 09-21-2023 End: 62-14-7632jruwrlqjsxNjetmvnm Ball Other [employer] Other Start: 40-35-6618Zxmcga outpatient visit 25 minutes Robert BallFPG [facility] ClinicStart: 09-08-2023 End: 04-60-6662jvifuudcvzPqwovvhs Ball Other [facility] [employer] Other Start: 99-57-1285Bnlxgqjmw encounterBenjamin BallFPG [facility] ClinicStart: 08-29-2023 End: 98-39-8881tmjsvgbnhyZjftsett Ball Other [facility] [employer] Other Start: 81-66-9391Gsiwmsgti encounterBenjamin BallFPG [facility] ClinicStart: 08-16-2023 End: 93-68-2169lzrizplperGehrnakl Ball Other [employer] Other Start: 59-05-5111Flnykrepi encounterBenjamin BallFPG [facility] ClinicStart: 08-15-2023 End: 58-75-2399fjbzkjzepeZbyvzvws Ball Other [employer] Other Start: 02-06-6456Fhtotgxrfpuw care manage srvc 14 day dischargeBenjamin BallFPG [facility] ClinicStart: 07-25-2023 End: 61-23-1137ekvjtyquuvBvhftezh Ball Other [employer] Other Start: 29-60-3588Olxzgogok encounterBenjamin BallFPG [facility] ClinicStart: 07-21-2023 End: 79-21-0799ufgyamcobeHjjdmfxq Ball Other [employer] Other start: 51-90-3159Ptnxhocmi encounterBenjamin BallFPG [facility] ClinicStart: 07-19-2023 End: 75-85-8744czslmfcsvrNmmnpioq Ball Other [employer] Other Start: 58-75-6097Rlywhafhf encounterBenjamin BallFPG [facility] ClinicStart: 07-11-2023 End: 31-29-6474klkztkhtufGokiteus Ball Other [employer] Other Start: 63-28-6503Emamqn outpatient visit 25 minutes Robert BallFPG [facility] ClinicStart: 05-25-2023 End: 62-52-5247luuqmiuinvZpdrfntq Ball Other [employer] Other Start: 21-01-0506Tunjvv outpatient visit 15 minutes Robert BallFPG [facility] ClinicStart: 04-26-2023 End: 59-41-3117hkfhthzysiLlqdxwml Ball Other [employer] Other Start: 80-25-1865Ubuptthco encounterBenjamin BallFPG [facility] ClinicStart: 04-08-2023 End: 09-90-8103uddwisdyscLjbqxokx Ball Other [employer] Other Start: 55-11-4320Ksolom outpatient visit 15 minutes Robert BallFPG [facility] ClinicStart: 04-07-2023 End: 59-24-8537netsavfpanUV ROBERT BALLFacility:R3Lnkmq: 03-23-2023 End: 76-09-8383lcmmnvzofdNyasymww Ball Other [employer] Other Start: 57-20-4261Bkvnwq outpatient visit 15 minutes Robert BallFPG [facility] ClinicStart: 03-16-2023 End: 59-84-8290vzrojuujwfTqtxqila Ball Other [employer] Other Start: 11-70-5540Gqbpwnppr encounterBenjamin BallFPG [facility] ClinicStart: 03-14-2023 End: 20-11-6367peqcidbcbmRS ROBERT BALLNort [employer] Other Start: 59-02-5125Qwqqsqtwn encounterBenjamin BallFPG [facility] ClinicStart: 03-10-2023 End: 10-09-4291unyrsuevknGugvnbbp Ball Other [employer] Other Start: 51-90-7842Fsvmri outpatient visit 15 minutes Robert BallFPG [facility] ClinicStart: 76-43-6249Rrgezpbio encounterBenjamin BallFPG [facility] ClinicStart: 03-02-2023 End: 26-98-2007ymbfowwivyDeuuihye Ball Other [employer] Other Start: 91-23-0674Ahzyqwo encounter procedureBenjamin BallFPG [facility] ClinicStart: 02-14-2023 End: 34-20-4853lrzayozbvgSqbzpbvz Ball Other [employer] Other Start: 20-08-5227Yvelee outpatient visit 25 minutes Michael Kenny Pain ManagementStart: 74-55-5597Zhayrgndt encounterBenmeagan HAN [facility] ClinicStart: 02-03-2023(PROC) PROCEDURESherif EmelynOrlando Health [facility] Surgery CenterStart: 02-03-2023 End: 29-06-3900zzrgphpfriAbpiou Emelyn Other [employer] Other Start: 01-27-2023 End: 03-46-9660muqxyywukrKoqpzn Emelyn Other [employer] Other Start: 97-41-7336Qwzvzj-up encounterSherrancho Kenny Pain ManagementStart: 01-19-2023 End: 14-19-4235xqwhkwncubSvlnfqar Ball Other [employer] Other Start: 22-67-8734Lsphgsrlm encounterBenmeagan Vail Medical ClinicStart: 01-04-2023(PROC) PROCEDURESherrancho DunawayBlack Hills Medical Center CenterStart: 01-04-2023 End: 39-28-3139mkbbbbqdbsLmsink Emelyn Other [employer] Other Start: 12-31-2022 End: 01-38-4952yiywvnxylqHanwmh Emelyn Other [employer] Other Start: 80-81-7814Lasqij outpatient visit 25 minutes Michael DunawayJOSELYNG Pain ManagementStart: 12-27-2022 End: 05-38-2444jhghcsvfofUaycoa Braun Other [employer] Other Start: 49-08-5878Xcrauu outpatient visit 15 minutes Ivon BatistaEMELY [facility] ClinicStart: 12-02-2022 End: 24-05-5812mvjacrrtnhLfuyu Velarde Other [employer] Other Start: 78-38-1693Jchdiv outpatient visit 15 minutes Ursula HartFPG Pain ManagementStart: 11-18-2022(PROC) PROCEDURESherif [facility] CenterStart: 11-18-2022 End: 74-99-2299imdrgnosrzMmtmjd Emelyn Other [facility] [employer] Other Start: 88-89-2672Ulu-procedure evaluation check Robert Ball Other [facility] [employer] Other Start: 11-02-2022 End: 17-01-3634xjzqpkwyqtTzxpvu Zaky Other [facility] [employer] Other Start: 86-05-6113Tlmaxt outpatient visit 25 minutes Michael ZakyFPG Pain ManagementStart: 10-26-2022(Procedure) [facility] CenterStart: 10-26-2022 End: 45-86-9003vosxugcltfYlwyyb Emelyn Other [facility] [employer] Other Start: 09-11-2022 End: 05-17-2144urgsphfpbmDotjr Keller Other [facility] [employer] Other Start: 15-91-6645Cybgkj outpatient visit 25 minutes Kaitlynn KellerFPG [facility] Care ClydeStart: 09-10-2022 End: 71-29-6799yfxkckmhsqKcxtqm Emelyn Other [employer] Other Start: 26-00-5369Fryyxk outpatient visit 15 minutes Michael ZakyFPG Pain ManagementStart: 08-24-2022(Procedure) [facility] Surgery CenterStart: 08-24-2022 End: 17-53-1560fefvrzrvaoLgvxjf Emelyn Other [employer] Other Start: 08-03-2022(Procedure) [facility] CenterStart: 08-03-2022 End: 27-71-1050lxvixhjydkEqfcbm Emelyn Other [employer] Other Start: 07-29-2022 End: 83-83-2747rqtjnlwxmkPurcbw Emelyn Other [employer] Other Start: 58-17-6596Auiwsm outpatient visit 15 minutes Michael ZarudyFPG Pain ManagementStart: 76-46-2981xzoxffrgyuQI ROBERT VAIL Facility:N9Wzfkh: 07-22-2022(Procedure) [facility]ille [facility] CenterStart: 07-22-2022 End: 59-57-0376gqhfvcdfciEplwbu Emelyn Other [employer] Other Start: 07-06-2022 End: 26-05-6304ipthslfizqMJ BENJAMIN BALLcility:I7Buvhp: 07-02-2022 End: 91-39-6504ahgckswvbvAllshn Emelyn Other [facility] [employer] Other Start: 37-14-1261Kpmomi outpatient visit 25 minutes Michael ZakyFPG Pain ManagementStart: 06-23-2022(Procedure) Neville Dunaway [facility] OutPtStart: 06-23-2022 End: 48-68-2736rsorbmhkqbBqzmvk Emelyn Other [employer] Other Start: 06-23-2022 End: 66-91-2661Ziruxjoer to same day surgery [place] Robert Vail Work Phone: [facility]Digest[facility] HealthStart: 06-18-2022 End: 51-93-0739noubllkszgPviozt Zaky Other [facility] [employer] Other Start: 63-45-8583Fswrbd outpatient visit 25 minutes Michaelrancho Kenny Pain ManagementStart: 05-05-2022 End: 67-32-7453Mjhaptc encounter procedureDO Robert Vail Work Phone: [facility] HospitalDigestive HealthStart: 04-30-2022 End: 19-18-3938eyzqgevxptYA ROBERT VAILFacility:A5Nblyt: 04-13-2022 End: 59-19-4254bnsnqmljtfQT ROBERT VAILFacility:O1Cfiud: 04-01-2022 End: 00-56-1042jxnbrttjrsFhzgr Hykes Other [facility] [employer] Other Start: 59-19-8948Siersdhwu encounterDavid HykesFPG GastroenterologyStart: 03-19-2022 End: 86-08-3133pijlntknkiEifhjf Zaky Other [facility] [employer] Other Start: 32-48-2094Qgicfwmby encounterSherif TatyanaG Pain ManagementStart: 03-11-2022 End: 20-27-3938vjtqphoimwXqlvnl Zaky Other [facility] [employer] Other Start: 65-50-6258Mtfdot outpatient visit 25 minutes Michaelrancho Kenny Pain ManagementStart: 03-04-2022 End: 86-78-4662Lxhbqmb encounter procedureMichael R NILL [phone]-JvadnLakehealth [facility] [place] Start: 02-25-2022(Procedure) ShortMichael Sahni [facility]: 02-25-2022 End: 94-02-3722mjqveskkxnBzszhf Zaky Other [facility] [employer] Other Start: 02-18-2022 End: 44-37-3777tlfjoukrsuJxonas Zaky Other [facility] [employer] Other Start: 22-34-8943Yudizr outpatient new 45 minutes Michael EmelynFPG Pain ManagementStart: 01-28-2022 End: 73-59-0508rcskdtkmwqVnca Batista Other [facility] [employer] Other start: 79-11-1743Aiawmq outpatient new 45 minutesDale BraunFPG [facility] NeurosurgeryStart: 25-66-6864Dwzrl health examination Robert Red Mapache Other [facility] [employer] Other Start: 11-07-2021 End: 70-55-6702foypibnfxhAkevty Dymond Other [facility] [employer] Other Start: 16-25-1264Rxbrcq outpatient new 20 minutes Quita SimmonsFPG [facility] [place] Procedures DateProcedureProcedure DetailPerforming ClinicianStart: 82-15-6802Vnrvr anesthetic sacral epidural blockBenjamin Ball DO Work Phone: Start: 04-07-2455Vfjbd anesthetic sacral epidural blockDO Robert Ball Work Phone: Start: 52-37-9528AY lumbar spine wo conDO Robert Red Mapache Work Phone: Start: 62-32-2877Noyefq X-rayDO Robert Red Mapache Work Phone: Start: 12-29-6912Qgfrwklifwh of sacrococcygeal spineDO [employer]aid Work Phone: Start: 50-99-9165Z-ray of lumbar spine, four viewsDO Robert Red Mapache Work Phone: Start: 63-87-9336Wftyqhf microbial cultureDO Robert Vail Work Phone: Start: 87-23-6389Fbtxdjvax of local anesthetic into sacroiliac jointDO Robert Vail Work Phone: Start: 41-94-0314Ikzfnpz endoscopyDO Robert Vail Work Phone: Start: 63-27-8579Xmgbbvoru for osteoporosisBenmeagan Vail Other Start: 85-33-7384Zwzlhgvu extraction and insertion of intraocular lensMichael NILL Start: 24-66-4123Mtxstbbq extraction and insertion of intraocular lensMichael NILL Comment on above:right eyeStart: 44-33-9700Ytgkqzwsl mammographyBenmeagan Vail Other Start: 84-68-9198O4-L5 lumbar laminectomy, foraminotomy with facetectomy with decompression L5 nerve roots bilaterally 2 Taye NILL Comment on above:see operative report for further detailsStart: 65-59-4058Muf-surgery evaluationBebarbara Vail Other Start: 12-53-4642Mfilvycibeah cardiovascular examinationBenmeagan Vail Other Start: 04-53-3210Brawrvzrzgag pulmonary examination Robert Vail Other Start: 61-60-2883UccuaqbdbpyLarpvpc NILL Start: 83-66-6221ScbrulchakfVgaeqqw NILL Start: 83-77-9335VqkumslijfQkrgefo NILL Arthroplasty of kneeMichael NILL Comment on [...] Plan of Treatment DateCare ActivityDetailAuthorStart: 04-07-2026 End: 65-78-4267Elnmnuh encounter rpfobxcch28/11/2026 11:15 AM EDT Office Visit [facility] [address] [place] [address] Jr. Fernando Silva, DO [address] [place] [address] [facility]OPA[facility]ICSStart: 05-09-2025 End: 77-26-9368piffekzsgy04/12/2025 10:30 AM EDT Treatment [facility] [address] [place] [address] Jacqui Harper PTNOMS CI PTStart: 05-07-2025 End: 17-25-0891vledrazzgo75/10/2025 12:30 PM EDT Treatment [facility] [address] [place] [address] Gabriel Loco PTANOMS CI PTStart: 05-03-2025 End: 03-03-3887jmlrsrsomqPLJM CI PTStart: 04-30-2025 End: 73-00-3613xxpfunofojXFQY CI PTStart: 04-26-2025 End: 17-31-1510hsyzuoesut44/30/2025 9:00 AM EDT Treatment [facility] [address] [place] [address] Gabriel Loco PTANO CI PTStart: 04-23-2025 End: 40-72-5792ogobbakwyx09/27/2025 4:30 PM EDT Treatment [facility] [address] [facility] [address] [place] [address] Gabriel Loco PTA Low back pain, unspecified back pain laterality, unspecified chronicity, unspecified whether sciatica present (Primary Dx)[facility] PTComment on above:Low back pain, unspecified back pain laterality, unspecified chronicity, unspecified whether sciatica present (Primary Dx)Start: 04-17-2025 End: 60-73-9901hqlqflhdfj59/21/2025 11:00 AM EDT Treatment [facility] [address] [facility] [address] [place] [address] Jacqui Harper PTNO CI PTStart: 04-15-2025 End: 07-61-2399otvdnsxtti26/19/2025 9:30 AM EDT Treatment [facility] [address] [facility] [address] [place] [address] Jacqui Harper PTNOMS CI PTStart: 04-11-2025 End: 39-18-7742pbbdsugbar30/15/2025 9:00 AM EDT Treatment [facility] [address] [facility] [address] [place] [address] Jacqui Harper PTNOMS CI PTStart: 04-08-2025 End: 22-60-0023aqboezhslr35/12/2025 1:00 PM EDT Treatment [facility] PT [address] [facility] [address] [place] [address] Gabriel Loco PTANOMS CI PTStart: 04-01-2025 End: 62-42-2549jwdocmlzlq93/05/2025 9:30 AM EDT Treatment [facility] [address] [place] [address] [place] [address] Jacqui Harper, PTNOMS CI PTStart: 03-21-2025 End: 87-71-2686mzyczcnrpk08/24/2025 8:30 AM EDT Treatment [facility] [address] [place] [address] [place] [address] Jacqui Harper, PTNOMS CI PTStart: 03-14-2025 End: 82-43-3023rryfpolwyvGODB CI PTComment on above:ArrivedStart: 02-28-2025 End: 11-95-3683xeihkutxmwXFZZ CI PTStart: 02-25-2025 End: 12-75-6439kruqgdgmoy98/31/2025 12:00 PM EDT Treatment [facility] [address] [facility] [address] [place] [address] Tierney Paz, DELINQUENCY COUNSELOR NOMS CI PTStart: 02-20-2025 End: 87-00-0203vzfyrzsiao72/26/2025 1:00 PM EDT Treatment [facility] PT [address] [facility] [address] [place] [address] Tierney Paz, KODAK ArrivedNOMS CI PTComment on above:ArrivedStart: 02-13-2025 End: 66-61-2948pcohmickeh58/19/2025 1:00 PM EDT Treatment [facility] PT [address] [facility] [address] [place] [address] Gabriel Loco PTANOMS CI PTStart: 02-11-2025 End: 52-32-2339zxvbquiaxr95/17/2025 12:30 PM EDT Treatment [facility] PT [address] [facility] [address] [place] [address] Amparo Giron PTANOMS CI PTStart: 01-31-2025 End: 86-43-6440ridibauqwa43/06/2025 12:00 PM EST Treatment [facility] PT [address] [facility] [address] [place] [address] Gabriel Loco, PTANOMS CI PTStart: 01-28-2025 End: 77-91-1958wzpnjieade26/03/2025 12:00 PM EST Treatment [facility] PT [address] [place] [address] Jacqui Harper PTNOMS CI PTStart: 01-23-2025 End: 47-32-6162yfdknlcogbTLTF CI PTComment on above:Low back pain, unspecified back pain laterality, unspecified chronicity, unspecified whether sciatica present (Primary Dx)Start: 01-21-2025 End: 58-35-1297vssndilcffBNVI CI PTComment on above:ArrivedStart: 01-17-2025 End: 63-36-3467ziyzfssgqeJEHJ CI PTComment on above:ArrivedStart: 01-14-2025 End: 17-06-3306boehoocbnb37/17/2025 11:00 AM EST Evaluation [facility] PT [address] [place] [address] Jacqui Harper, PT ArrivedNOMS CI PTComment on above:ArrivedStart: 83-72-3738QunqlnttwMercy Health St. Charles Hospitaltart: 48-42-0432RvolnpnxgLicking Memorial Hospital CenterStart: 68-40-8025Gqupcahrqjv Wound CultureSuperficial Wound CultureMercy Health St. Charles Hospitaltart: 67-41-1981IaepjyhpkLicking Memorial Hospital Ctr Work Phone: Start: 17-85-2264VqkhilikpLicking Memorial Hospital Ctr Work Phone: Start: 71-02-4262Bqcviqbecjww Vaccine: 65+ Years (2 of 2 - PCV)Pneumococcal Vaccine: 65+ Years (2 of 2 - PCV)NOMS HealthcareaPTT in Platelet poor plasma by Coagulation assayGood Samaritan Hospital Comprehensive metabolic 2000 panel - Serum or PlasmaGood Samaritan HospitalComprehensive metabolic 1999 panel - Serum or Berger HospitalMicroalbumin [Mass/volume] in UrineGood Samaritan HospitalMR Lumbar spine WO contrastGood Samaritan HospitalPatient EducationLicking Memorial Hospital Ctr Work Phone: Patient referralLicking Memorial Hospital Ctr Work Phone: XR Lumbar spine 4 [facility] Pelvis 1 or 2 [facility] Sacrum and Coccyx GE 2 [facility] Immunizations Immunization DateImmunizationNotesCare LxmhvxipOainwagi47-25-3668ouhnhuumt, high dose seasonal, preservative-freeBenjamin Ball DO Work Phone: [facility]09-09-2024influenza, high dose seasonal, preservative-freeDO Robert Vail Work Phone: [facility]09-18-2023influenza, high dose seasonal, preservative-freeBenjamin Ball Other [employer] Other [phone] virus vaccine, unspecified formulationDO Robert Vail Work Phone: [facility]11-16-2022Influenza vaccine, quadrivalent, adjuvantedDO Robert Genna Work Phone: [facility]11-16-2022influenza virus vaccine, split virus (incl. purified surface antigen)Robert Vail Other [employer] Other [id number]il virus vaccine, unspecified formulationDO Robert Vail Work Phone: [facility]11-11-2022influenza virus vaccine, unspecified formulationDO Robert Vail Work Phone: [facility]11-11-2022influenza, high dose seasonal, preservative-freeBenmeagan Vail Other [employer] Other [id number]-03 Vaccine Pfizer - Documentation Purposes OnlyBenmeagan Vail Other [facility]10-06-2021influenza virus vaccine, split virus (incl. purified surface antigen)Robert Vail Other [employer] Other [id number] virus vaccine, unspecified formulationDO Robert Vail Work Phone: [facility]03-17-2021COVID-19 Vaccine Pfizer - Documentation Purposes OnlyBenmeagan Vail Other [facility]02-24-2021COVID-19 Vaccine Pfizer - Documentation Purposes OnlyBenmeagan Vail Other [facility]09-28-2020influenza virus vaccine, split virus (incl. purified surface antigen)Robert Vail Other [employer] Other [id number] virus vaccine, unspecified formulationDO Robert Vail Work Phone: [facility]10-03-2019influenza virus vaccine, split virus (incl. purified surface antigen)Robert Vail Other [employer] Other [id number] virus vaccine, unspecified formulationDO Robert Vail Work Phone: [facility]11-14-2018influenza, injectable, quadrivalent, preservative freeDO Robert Vail Work Phone: [facility]10-22-2018influenza virus vaccine, split virus (incl. purified surface antigen)Robert Vail Other [facility] [employer] Other 912524-71-6195ikhcdaqqn virus vaccine, unspecified formulationDO Robert Vail Work Phone: [facility]10-22-2018Seasonal trivalent influenza vaccine, adjuvanted, preservative freeDO Robert Vail Work Phone: [facility]09-20-2017influenza virus vaccine, split virus (incl. purified surface antigen)Robert Vail Other [facility] [employer] Other [id number] virus vaccine, unspecified formulationDO Robert Vail Work Phone: [facility]09-20-2017influenza, high dose seasonal, preservative-freeDO Robert Vail Work Phone: [facility]09-01-2017 pneumococcal polysaccharide vaccine, 23 valentBenjademetria Vail Other [facility]03-20-2017influenza virus vaccine, split virus (incl. purified surface antigen)Robert Vail Other [facility] [employer] Other [id number] virus vaccine, unspecified formulationDO Robert Vail Work Phone: [facility]11-10-2015 pneumococcal conjugate vaccine, 13 valentBenjademetria Vail Other [facility]09-22-2015influenza virus vaccine, split virus (incl. purified surface antigen)Robert Vail Other [employer] Other [id number] virus vaccine, unspecified formulationDO Robert Vail Work Phone: [facility]10-23-2014tetanus and diphtheria toxoids, adsorbed, preservative free, for adult use (5 Lf of tetanus toxoid and 2 Lf of diphtheria toxoid)Robert Vail Other [facility]09-20-2013tetanus and diphtheria toxoids, adsorbed, preservative free, for adult use (5 Lf of tetanus toxoid and 2 Lf of diphtheria toxoid)Robert Vail Other [facility]09-05-2012tetanus and diphtheria toxoids, adsorbed, preservative free, for adult use (5 Lf of tetanus toxoid and 2 Lf of diphtheria toxoid)Robert Vail Other [facility]07-08-2011zoster vaccine, liveDO Robert Vail Work Phone: [facility]08-06-2009 pneumococcal polysaccharide vaccine, 23 valentBenmeagan Vail Other [facility] Payers DatePayer CategoryPayerPolicy [id number] Health Insurance [id number] 2007MedicareMEDICARE Member Subscriber Plan / Payer (Effective 2006-Present) Name: Sandra Tavarez Member ID: [id number] Relation to Subscriber: Self Name: Sandra Tavarez Subscriber ID: [id number] Payer ID: STATE Group ID: Not on file Type: Medicare Address: [facility] [place] [id number] [id number] [id number]-[id number] [id number] 2.16.840.3.63253[id number] 2.16.840.1.405939.3.57[id number] 2.16.840.1.079411.3.57[id number] 2.16.840.1.847792.3.57[id number] 2.16.840.1.627980.3.57[id number] 2.16840.1.619373.3.57[id number] 2.16.840.1.798937.3.57[id number] 2.16.840.1.811744.3.57[id number] 2.16.840.1.728794.3.57[id number] 2.16.840.1.274789.3.57[id number] 2.16.840.1.690602.3.57[id number] 2.16.840.1.760097.3.57[id number] 2.16.840.1.282086.3.57[id number] 2.16.840.1.153932.3.579.[id number] 2.16.840.1.221589.3.579.2.038729-17-0318Bdzubdd8266845 2.16.840.1.660689.3.57[id number] 2.16.840.1.164845.3.57[id number] 2.16.840.1.726813.3.579.2.594449-95-6295Qioncvi0611061 2.16.840.1.774398.3.579.2.669219-66-6292Jeetejs8691878 2.16.840.1.231777.3.579.2.629592-24-2569Grrfleg7960500 2.16.840.1.698067.3.579.2.[id number] 2.16.840.1.927127.3.579.2.301137-33-7775Uhbhhms9411040 2.16.840.1.605304.3.579.2.673704-44-4185Cidbprv5256069 2.16.840.1.035542.3.579.2.251652-55-2658Fhpgvdw0177309 2.16.840.1.990252.3.579.2.945594-46-5124Mdeoemu7049484 2.16.840.1.284095.3.579.2.237647-52-5675Fuqrkup9624346 2.16.840.1.485353.3.579.2.404595-34-5557Jfknssd6353636 2.16.840.1.995579.3.579.2.624199-05-6080Htvpmzi1996645 2.16.840.1.506599.3.579.2.138569-56-7623Ydfupkg0363214 2..840.1.064662.3.579.2.467413-73-3387Ynpwnvd9372293 2.16.840.1.425632.3.579.2.940829-04-7259Trbcerx5305653 2..840.1.820804.3.579.2.495249-89-6326Qllymjv3064573 2.16.840.1.740258.3.579.2.3262Tzxeepe34016793 2.16.840.1.343932.3.579.2.531 [id number] 2.16.840.1.1833[id number] 2..840.1.275515.3.579.2.208Azsdumt02468415 2.16.840.1.767266.3.579.2.531 [id number] 2.16.840.1.816314.3.579.2.101Hbxcroc92760734 2.16.840.1.320516.3.579.2.445Tlslrzf19191705 2.16.840.1.768988.3.579.2.531 Lelnxof05857246 2.16840.1.637619.3.579.2.531 Social History DateTypeDetailFacilityStart: 03-04-2022 End: 09-53-1616Dbgkfqp smoking statusEx-smoker (finding)[employer] Other Tobacco smoking statusNeverLakehealth [facility] [place] Start: 09-18-1639Qte Assigned At BirthFeBaptist Health Doctors Hospital [employer] Other Start: 03-24-2022 End: 48-47-2014Rmytvet smoking status NHISNever smoked tobacco (finding) [facility] Hospitaltart: 26-28-2412Zmm Assigned At BirthFemalFairfield Medical Centertart: 12-07-2024 End: 23-73-3400AfoXildvj (finding)[facility] HospitalHistory of tobacco useCurrent smokerNOMS HealthcareHistory of tobacco useCigarette Smoker [facility] HealthcareStart: 76-07-8916Lmruftx use and exposureSmokeless tobacco non-userNOMS HealthcareStart: 59-05-9118Rtpxlknqh beverage intakeEx-drinker (finding)[facility] HealthcareStart: 58-36-6731Umzskbd of Social functionNOMS HealthcareStart: 23-29-1379Tti assigned at birthNot on [facility] Medical Equipment Procedure CodeEquipment CodeEquipment Original TextEquipment IdentifierDates Capsule endoscopy, for patency of lumen evaluationVideo capsule endoscopy system ()[id number] FDAStart: 05-05-2022 Goals DatePatient GoalDesired Activity/State Clinical Notes 11-07-2021 to 08-12-2025 Note Date & HfmjNoaoIpotsajm32-36-4036 Evaluation note* Diagnosis Onset Date Resolution Status Admit Date Anticoagulant long-term use acuteSeptember 2024 10:31amGeneralized seizure disorderacuteSeptember 2024 10:31amHypercholesteremiaacuteSeptember 2024 10:31am HypertensionacuteSeptember 2024 10:31amObesityacuteSeptember 2024 10:31amOSA (obstructive sleep apnea)acuteSeptember 2024 10:31am ThrombophiliaacuteSeptember 2024 10:31amType 2 diabetes mellitus with hyperglycemiaacuteSeptember 2024 10:31amVenous hypertension, chronic, with ulceracuteSeptember 2024 10:31amAnticoagulant long-term useacuteOctober 2024 12:00pmOther chronic painacuteOctober 2024 12:00pmPost laminectomy syndromeacuteOctober 2024 12:00pmSacroiliitisacuteOctober 2024 12:00pm [facility] Work Phone: 1(892) 803-566206-19-2025 Evaluation note* Diagnosis Onset Date Resolution Status [...] 2 diabetes mellitus with hyperglycemiaacuteSeptember 2024 10:31am [facility] Work Phone: 1(811) 119-335106-12-2025 History of Present illness Narrative* Jacqui Harper, [...] instructed in home exercise program. - met Med Surg Nurse Goals: To be met in 10 weeks [...] in this encounterSSM Health Cardinal Glennon Children's HospitalCtposxiicr53-96-0628 History of Present illness Narrative* Jacqui Harper [...] instructed in home exercise program. - met Med Surg Nurse Goals: To be met in 10 weeks [...] in this encounterSSM Health Cardinal Glennon Children's HospitalRdqcihixil07-36-7786 History of Present illness Narrative* Jacqui Harper, [...] instructed in home exercise program. - met Prison Goals: To be met in 10 weeks [...] in this encounterSSM Health Cardinal Glennon Children's HospitalUtdageoqdx67-75-8970 History of Present illness Narrative* Jacqui Harper, [...] instructed in home exercise program. - met Prison Goals: To be met in 10 weeks [...] in this encounterSSM Health Cardinal Glennon Children's HospitalCrhqsxsron44-51-3809 History of Present illness Narrative* Jacqui Harper [...] instructed in home exercise program. - met Med Surg Nurse Goals: To be met in 10 weeks [...] in this encounterSSM Health Cardinal Glennon Children's HospitalFfgwvwlcvb94-84-2533 History of Present illness Narrative* Jacqui Harper [...] instructed in home exercise program. - met Med Surg Nurse Goals: To be met in 10 weeks [...] Please sign below. Date: documented in this [facility]04-23-2025 Evaluation note* Diagnosis Onset Date Resolution Status [...] 2024 11:39amCellulitisacuteJuly 2024 11:24amSkin tearacuteJuly 2024 11:24am [facility] Work Phone: 1(569) 112-613704-23-2025 Evaluation note* Diagnosis Onset Date Resolution Status [...] venous insufficiencyacuteJuly 2024 1:46pmSkin tearacuteJuly 2024 1:46pm [facility] Work Phone: 1(373) 631-398704-17-2025 History of Present illness Narrative* Jacqui Harper, [...] instructed in home exercise program. - met Med Surg Nurse Goals: To be met in 10 weeks [...] in this encounterSSM Health Cardinal Glennon Children's HospitalWwwcpxmmrp05-49-5046 History of Present illness Narrative* Jacqui Harper [...] instructed in home exercise program. - met Prison Goals: To be met in 10 weeks [...] in this encounterSSM Health Cardinal Glennon Children's HospitalVfsfrunecx94-82-0040 NoteGeneral Surgery Office/Clinic Note Chief Complaint consultation [...] require lift technique; patient requests referral to [facility]; call with problems/questions. Ordered: [facility] Internal Ambulatory Referral Follow-up No qualifying data [...] Sister. Hypertension: Father, Siste (more content not included)...[facility] Hospital At SouthwoodsComment on above:Result Comment: Electronically Signed By: GEORGE JENNINGS, Taye Ellington\Date and Time Signed: 02/26/25 13:52 [id number] Evaluation note * Diagnosis Onset Date Resolution [...] 11:46amOther chronic painacuteJune 2024 11:46amSacroiliitisacuteJune 2024 11:46am [facility] Work Phone: 1(199) 178-364403-03-2025 Telephone encounter Note* Telephone Encounter - Jenna Servin - 01/28/2025 8:25 AM EST She called noting up all last night not feeling well and no better this morning; she cx her 12:00 PT. I reminded and she said she will try to make her 3/6 PT; if unable she will contact jennifer. NOMS Vxcgiryhye71-77-6425 Miscellaneous Notes* Telephone Encounter - Jenna Servin - 01/28/2025 8:25 AM EST She called noting up all last night not feeling well and no better this morning; she cx her 12:00 PT. I reminded and she said she will try to make her 3/6 PT; if unable she will contact jennifer. documented in this encounterSSM Health Cardinal Glennon Children's HospitalUhhbyszqdt26-23-4898 History of Present illness Narrative* Jacqui Leroy, [...] Left low back is hurting more today. [place] good after last session but pain returned. [...] as needed. Manual lumbar distraction supine with serbian ball. Therapeutic Exercise: (31 minutes) Strength, Endurance, [...] to be instructed in home exercise program. Prison Goals: To be met in 10 weeks [...] Please sign below. Date: documented in this [facility]02-19-2025 Evaluation note* Diagnosis Onset Date [...] 10:24amMedicare annual wellness visit, subsequentnoneactiveMay 2024 10:24am [facility] Work Phone: 1(503) 669-855902-17-2025 History of Present illness Narrative* Jacqui Harper, [...] to be instructed in home exercise program. Med Surg Nurse Goals: To be met in 10 weeks [...] in this encounterSSM Health Cardinal Glennon Children's HospitalTzpwcnsjtn47-10-7697 Evaluation note* Diagnosis Onset Date Resolution Status [...] 1:27pmPost laminectomy syndromeacuteApril 2024 1:27pmSacroiliitisacuteApril 2024 1:27pm [facility] Work Phone: 1(424) 978-240301-29-2025 [place] [address] Pain Management Procedure Note Signed Patient: Sandra Tavarez MR#: [id number] : 1940 Acct:[id number] Age/Sex: 84 / F Adm Date: 5 Loc: Room: Type: [facility] Attending Dr: Michael Dunaway MD [...] MD 12/26/24 1119 Signed By: 12/26/24 1206 [facility]01-15-2025 Evaluation note* Diagnosis Onset Date Resolution [...] laminectomy syndrome acuteApril 2024 10:33amSacroiliitisacuteApril 2024 10:33am [facility] Work Phone: 1(374) 526-626301-10-2025 Evaluation note* Diagnosis Onset Date Resolution Status Admit Date Generalized seizure disorder acuteJanuary 2024 10:20amHypercholesteremiaacuteJanuary 2024 10:20am HypertensionacuteJanuary 2024 10:20amIron deficiency anemiaacuteJanuary 2024 10:20amLumbar spondylosisacuteJanuary 2024 10:20amOSA (obstructive sleep apnea)acuteJanuary 2024 10:20amThrombophiliaacute December 07, 2024 10:20amType 2 diabetes mellitus with hyperglycemiaacute December 07, 2024 10:20amChronic painacuteJanuary 2024 1:37pmEncounter for monitoring Coumadin therapyacuteJanuary 2024 1:37pmLumbosacral spondylosisacuteJanuary 2024 1:37pmPost laminectomy syndromeacuteJanuary 2024 1:37pmSacroiliitisacuteJanuary 2024 1:37pm [facility] Work Phone: 1(209) 991-471801-10-2025 Evaluation note* Diagnosis Onset Date Resolution Status [...] 1:39pmLaceration of leg excluding thighacuteJanuary 2024 1:39pm [facility] Work Phone: 1(200) 527-317201-10-2025 Evaluation note* Diagnosis Onset Date Resolution Status [...] laminectomy syndromeacuteFebruary 2024 12:55pm SacroiliitisacuteFebruary 2024 12:55pm [facility] Work Phone: 1(647) 258-137201-10-2025 Evaluation note* Diagnosis Onset Date Resolution Status [...] laminectomy syndrome acuteApril 2024 10:33amSacroiliitisacuteApril 2024 10:33am [facility] Work Phone: 1(199) 434-545909-13-2024 Procedure noteGood Samaritan Hospital01-25-2024 Evaluation note* Encounter Date Diagnosis Assessment [...] the patient reduces t he risk for ME, CVA, HTN, cardiac dysrhythmias and sudden cardiac [...] the risk for cerebrovascular and cardiovascular disease. [employer] Other 01-12-2024 Evaluation note* Encounter Date [...] virus infection (ICD-10 - Z20.822)Order sent to [facility], results negative for COVID infection. [employer] Other 12-14-2023 Evaluation note* Encounter Date Diagnosis Assessment Notes Treatment Notes Treatment Clinical Notes Oct, Acute cough (ICD-10 - R05.1) [employer] Other 10-25-2023 Evaluation note* Encounter Date [...] clinic for additionaltreatment Discussed compression, pumps etc [employer] Other 10-12-2023 Evaluation note* Encounter Date Diagnosis Assessment Notes Treatment Notes Treatment Clinical Notes Aug, Lumbar spondylosis (ICD-10 - M47 .816) [employer] Other 10-02-2023 Evaluation note* Encounter Date Diagnosis Assessment Notes Treatment Notes Treatment Clinical Notes Aug, Pain of right lower extremity (I CD-10 - M79.604) [employer] Other 09-18-2023 Evaluation note* Encounter Date [...] of right lower extremity (ICD-10 - M79.604) [employer] Other 08-22-2023 Evaluation note* Encounter Date Diagnosis Assessment Notes Treatment Notes Treatment Clinical Notes Jun, Dysuria (ICD-10 - R30.0) [employer] Other 08-14-2023 Evaluation note* Encounter Date [...] use, the patient reduces the risk for ME, CVA, HTN, cardiac dysrhythmias and sudden cardiac [...] or drinking prior to bedtime. Weight loss. [employer] Other 06-28-2023 Evaluation note* Encounter Date [...] supplied to the patient after her assessment [employer] Other 05-30-2023 Evaluation note* Encounter Date Diagnosis Assessment Notes Treatment Notes Treatment Clinical Notes March, Cellulitis of right lower extrem ity (ICD-10 - L03.115) [employer] Other 05-12-2023 Evaluation note* Encounter Date Diagnosis Assessment Notes Treatment Notes Treatment Clinical Notes March, Cellulitis of right lower extrem ity (ICD-10 - L03.115) Elevate and use warm compresses. March,hronic venous insufficiency (ICD-10 - I87.2)Avoid salt and elevate lower extremities, support stockings, inspect legs and feet daily for blisters and ulcerations. March,Hypercoagulable state (ICD-10 - D68.59)Not able to use NSAIDs [employer] Other 04-26-2023 Evaluation note* Encounter Date [...] and refer to med management clinic in [facility] Other 04-19-2023 Evaluation note* Encounter Date Diagnosis Assessment Notes Treatment Notes Treatment Clinical Notes Feb, Generalized seizure disorder (IC D-10 - G40.309) [facility] Other 04-17-2023 NotePROCEDURE: XR CHEST 2 V [...] Electronically authenticated by: CELINA JONES Date: 2023-03-14 15:11[facility]04-17-2023 Evaluation note* Encounter Date Diagnosis Assessment Notes Treatment Notes Treatment Clinical Notes Feb, Simple chronic bronchitis (ICD-1 0 - J41.0) [facility] Other 04-13-2023 Evaluation note* Encounter Date Diagnosis Assessment Notes Treatment Notes Treatment Clinical Notes Feb, Acute bronchitis due to other sp ecified organisms (ICD-10 - J20.8) Instructed to use Robitussin or Mucinex for cough, saline or Flonase NS for congestion, Tylenol forpain and fever. Feb,Seasonal allergic rhinitis due to pollen (ICD-10 - J30.1) [facility] Other 04-05-2023 Evaluation note* Encounter Date Diagnosis [...] use, the patient reduces the risk for ME, CVA, HTN, cardiac dysrhythmias and sudden cardiac [...] mammogram for breast cancer (ICD-10 - Z12.31) [facility] [employer] Other 03-20-2023 Evaluation note* Encounter Date [...] offered to prescribe a low dose of [place], she states she does not want to be on opioid pain medications. She can follow up in 3 months or as needed. Jan,hronic pain (ICD-10 - G89.29) Follow up as needed [facility] [employer] [employer] Other 03-02-2023 Evaluation note* Encounter Date [...] (ICD-10 - G89.29) Follow up after procedure. [employer] [facility] [employer] Other 02-03-2023 Evaluation note* Encounter Date [...] (ICD-10 - G89.29) Follow up after procedure. [employer] [employer] Other 01-30-2023 Evaluation note* Encounter Date Diagnosis Assessment Notes Treatment Notes Treatment Clinical Notes Nov, Erysipelas (ICD-10 - A46) Start w antibiotic, take entire course. Call if no improvement for other prescription or dermatology referral. Nov,Systemic viral illness (ICD-10 - B34.9)Chills and nausea has resolved Continue to monitor symptoms [facility] [employer] Other 01-05-2023 Evaluation note* Encounter Date [...] - G89.29) Follow up in 4 weeks. [employer] [facility] [employer] Other 12-06-2022 Evaluation note* Encounter Date [...] for three days prior to each procedure [employer] Other 10-15-2022 Evaluation note* Encounter Date [...] treatment plan. Patient left in stable condition [employer] Other 10-14-2022 Evaluation note* Encounter Date [...] - G89.29) Follow up in 4 weeks. [facility] [employer] Other 09-01-2022 Evaluation note* Encounter Date [...] Eliquis for 3 days prior to procedure [employer] Other 08-05-2022 Evaluation note* Encounter Date [...] Eliquis for 3 days prior to procedure [employer] Other [facility] Encounter Date Diagnosis Assessment [...] Eliquis for 3 days prior to procedure [employer] Other 04-14-2022 Evaluation note* Encounter Date [...] medial branch nerve blocks in the future. [employer] [employer] Other 03-24-2022 Evaluation note* Encounter Date [...] She reports prior surgerywith Dr. Rivers at [facility] 8 years ago. She also reports prior epidural steroid injections with Dr. Deacon Smallwood and Dr Kotahri, last received Nov 2021. She also notes [...] negative findings were considered in medical decision-making. [employer] [employer] Other 03-03-2022 Evaluation note* Encounter Date [...] Jan,symptomatic age-related postmenopausal state (ICD-10 - Z78.0) [facility] [employer] Other 2021 Evaluation note* Encounter Date Diagnosis [...] no improvement in 2 to 3 days [employer] Other Evaluation + Plan note No data available for this section [facility] [place] Evaluation noteNo InformationNortDepartment of [facility] [employer] Other Evaluation noteNo assessment information available [facility] Work Phone: Evaluation note* Diagnosis Onset Date Resolution Status Chronic venous insufficiency acuteHypertensionacuteLumbar spondylosisacuteThrombophiliaacute [facility] Work Phone: Evaluation note* Diagnosis Onset Date Resolution Status Chronic venous insufficiency acuteThrombophiliaacuteNonhealing surgical woundnoneactiveGeneralized seizure disorderacuteHypercholesteremiaacuteHypertensionacuteLumbar spondylosisacuteOSA (obstructive sleep apnea)acuteThrombophiliaacuteType 2 diabetes mellitus with hyperglycemiaacuteMedicare annual wellness visit, subsequentnoneactive Anticoagulant long-term useacuteArthritis of sacroiliac jointacuteChronic pain acuteIschial bursitisacuteLumbosacral spondylosisacute [facility] Work Phone: Evaluation note* Diagnosis Onset Date Resolution Status Generalized seizure disorder acuteHypercholesteremiaacuteHypertensionacuteLumbar spondylosisacuteOSA (obstructive sleep apnea)acuteThrombophiliaacuteType 2 diabetes mellitus with hyperglycemiaacuteMedicare annual wellness visit, subsequentnoneactive Anticoagulant long-term useacuteArthritis of sacroiliac jointacuteChronic pain acuteIschial bursitisacuteLumbosacral spondylosisacute [facility] Work Phone: Evaluation note* Diagnosis Onset Date Resolution Status Generalized seizure disorder acuteHypercholesteremiaacuteHypertensionacuteLumbar spondylosisacuteOSA (obstructive sleep apnea)acuteThrombophiliaacuteType 2 diabetes mellitus with hyperglycemiaacuteMedicare annual wellness visit, subsequentnoneactive Anticoagulant long-term useacuteArthritis of sacroiliac jointacuteChronic pain acuteIschial bursitisacuteLumbosacral spondylosisacuteIschial bursitisacute Lumbosacral spondylosisacutePost laminectomy syndromeacute [facility] Work Phone: Evaluation note* Diagnosis Onset Date Resolution Status Ischial bursitis acuteLumbosacral spondylosisacutePost laminectomy syndromeacuteAnticoagulant long-term useacuteChronic painacuteLumbosacral spondylosisacutePost laminectomy syndromeacute [facility] Work Phone: evaluation note* Diagnosis Onset Date Resolution Status Ischial bursitis acuteLumbosacral spondylosisacutePost laminectomy syndromeacuteAnticoagulant long-term useacuteChronic painacuteLumbosacral spondylosisacutePost laminectomy syndromeacuteGeneralized seizure disorderacuteHypercholesteremiaacute HypertensionacuteLumbar spondylosisacuteOSA (obstructive sleep apnea)acute ThrombophiliaacuteType 2 diabetes mellitus with hyperglycemiaacute [facility] Work Phone: Evaluation note* Diagnosis Onset Date Resolution Status Ischial bursitis acuteLumbosacral spondylosisacutePost laminectomy syndromeacuteAnticoagulant long-term useacuteChronic painacuteLumbosacral spondylosisacutePost laminectomy syndromeacuteGeneralized seizure disorderacuteHypercholesteremiaacute HypertensionacuteLumbar spondylosisacuteOSA (obstructive sleep apnea)acute ThrombophiliaacuteType 2 diabetes mellitus with hyperglycemiaacuteAnticoagulant long-term useacuteChronic painacuteLumbosacral spondylosisacutePost laminectomy syndromeacuteSacroiliitisacute [facility] Work Phone: Evaluation note* Diagnosis Onset Date Resolution Status Anticoagulant long-term use acuteChronic painacuteLumbosacral spondylosisacutePost laminectomy syndromeacute Generalized seizure disorderacuteHypercholesteremiaacuteHypertensionacuteLumbar spondylosisacuteOSA (obstructive sleep apnea)acuteThrombophiliaacuteType 2 diabetes mellitus with hyperglycemiaacuteAnticoagulant long-term useacuteChronic painacuteLumbosacral spondylosisacutePost laminectomy syndromeacuteSacroiliitis acute [facility] Work Phone: Evaluation note* Diagnosis Onset Date Resolution Status Anticoagulant long-term use acuteChronic painacuteLumbosacral spondylosisacutePost laminectomy syndromeacute Generalized seizure disorderacuteHypercholesteremiaacuteHypertensionacuteLumbar spondylosisacuteOSA (obstructive sleep apnea)acuteThrombophiliaacuteType 2 diabetes mellitus with hyperglycemiaacuteAnticoagulant long-term useacuteChronic painacuteLumbosacral spondylosisacutePost laminectomy syndromeacuteSacroiliitis acuteChronic painacuteLumbosacral spondylosisacutePost laminectomy syndromeacute Sacroiliitisacute [facility] Work Phone: Evaluation note* Diagnosis Onset Date Resolution Status Admit Date Generalized seizure disorder acuteJanuary 2024 10:20amHypercholesteremiaacuteJanuary 2024 10:20am HypertensionacuteJanuary 2024 10:20amIron deficiency anemiaacuteJanuary 2024 10:20amLumbar spondylosisacuteJanuary 2024 10:20amOSA (obstructive sleep apnea)acuteJanuary 2024 10:20amThrombophiliaacute December 07, 2024 10:20amType 2 diabetes mellitus with hyperglycemiaacute December 07, 2024 10:20am [facility] Work Phone: Evaluation note* Diagnosis [...] History fracture repair right femurHospitalization Historysee above [facility] [employer] Other History general Narrative - Reported* Type Description Date Medical History astma Medical HistoryOsteoporosisMedical HistoryHTN (hypertension)Medical History HypercholesteremiaSurgical HistoryBL/CTRSurgical HistorycraniotomySurgical Historyrotator cup repairSurgical Historyrt knee arthosopy,chondroplastySurgical HistoryColonoscopyurgical HistoryEGD-2004Surgical HistoryRT TKASurgical HistoryCystoscopySurgical Historylao sigmoid resectionSurgical History cholecystectomySurgical HistoryIVC filterSurgical Historyknee replacement left Surgical Historyfracture repair right femurHospitalization Historysee above [facility] [employer] Other Hospital Discharge instructions No data available for this section [facility] [place] Reason for referral (narrative)* Reason Referral for lower e xtremity ulceration Diagnosis 1 Ulcer associated wit h varicose vein, with infection (I83.209) Referral Organization [facility] Genna cano Referring Provider First Name Robert Referring Provider Last Name Genna Referring Provider Specialty Internal Me dicine Referred Organization [facility] Referred Address [address] [place], [place],[address] Referred Provider Specialty Wound Care Referral Priority Routine General Notes Mrs. Tavarez has chroni c venous insufficiency and suffered a contusion injury to her RLE, which resulted in a nonhealing ulceration. It was sutured by the ER but didn't result in wound closure. She is being referred for debridement and bandaging. She was empirically placed on Mupirocin and Cephalexin. [employer] Other Reason for referral (narrative)No reason for referral information availableUniversity [facility] Work Phone: Reason for visit NarrativeReferral Dr. Conley Lumbar RadiculopathyN[facility] Other reason for visit Narrative* Rehabilitation - Outpatient (Routine) - AuthorizedSpecialtyDiagnoses / ProceduresReferred By ContactReferred To ContactPhysical Therapy Diagnoses Low back pain, unspecified Proximal Leg Pain Procedures SD PHYSICAL THERAPY EVALUATION LOW COMPLEX 20 MINS SD OFFICE/OUTPATIENT NEW HIGH MDM 60 MINUTES Robert Vail MD [address] [place] [address] Phone: tel: fax: [facility] [address] [address] Phone: tel: fax: Referral IDStatusReasonStart DateExpiration DateVisits RequestedVisits [id number]/14/20258/13/20252020 [facility] HealthcareReason for visit Narrative* Rehabilitation - Outpatient (Routine) - AuthorizedSpecialtyDiagnoses / ProceduresReferred By ContactReferred To ContactPhysical Therapy Diagnoses Low back pain, unspecified Proximal Leg Pain Procedures SD PHYSICAL THERAPY EVALUATION LOW COMPLEX 20 MINS SD OFFICE/OUTPATIENT NEW [facility] MDM 60 MINUTES Robert Vail MD [address] [place] [address] Phone: tel: fax: [facility] [address] [address] Phone: tel: fax: Referral IDStatusReasonStart DateExpiration DateVisits RequestedVisits [id number]/14/202512/31/20252030 [facility] HealthcareReason for visit Narrative* Rehabilitation - Outpatient (Routine) - AuthorizedSpecialtyDiagnoses / ProceduresReferred By ContactReferred To ContactPhysical Therapy Diagnoses Low back pain, unspecified Proximal Leg Pain Procedures SD PHYSICAL THERAPY EVALUATION LOW COMPLEX 20 MINS SD OFFICE/OUTPATIENT NEW HIGH MDM 60 MINUTES Robert Vail MD Phone: tel: fax: [facility] [address] [address] Phone: tel: fax: Referral IDStatusReasonStart DateExpiration DateVisits RequestedVisits [id number]/14/202512/31/20252030 [facility] HealthcareReason for visit Narrative* Rehabilitation - Outpatient (Routine) - AuthorizedSpecialtyDiagnoses / ProceduresReferred By ContactReferred To ContactPhysical Therapy Diagnoses Low back pain, unspecified Proximal Leg Pain Procedures SD PHYSICAL THERAPY EVALUATION LOW COMPLEX 20 MINS SD OFFICE/OUTPATIENT NEW HIGH MDM 60 MINUTES Robert Vail MD Phone: tel: fax: [facility] [address] [address] Phone: tel: fax: Referral IDStatusReasonStart DateExpiration DateVisits RequestedVisits [id number]/14/202512/31/20252030 [facility] HealthcareReason for visit Narrative* Rehabilitation - Outpatient (Routine) - AuthorizedSpecialtyDiagnoses / ProceduresReferred By ContactReferred To ContactPhysical Therapy Diagnoses Low back pain, unspecified Proximal Leg Pain Procedures SD PHYSICAL THERAPY EVALUATION LOW COMPLEX 20 MINS SD OFFICE/OUTPATIENT NEW HIGH MDM 60 MINUTES Robert Vail DO Phone: tel: fax: [facility] [address] [address] Phone: tel: fax: Referral IDStatusReasonStart DateExpiration DateVisits RequestedVisits [id number]/14/202512/31/20252030 [facility] HealthcareReason for visit Narrative* Rehabilitation - Outpatient (Routine) - ClosedSpecialtyDiagnoses / ProceduresReferred By ContactReferred To Contact Physical Therapy Diagnoses Low back pain, unspecified Proximal Leg Pain Procedures SD PHYSICAL THERAPY EVALUATION LOW COMPLEX 20 MINS SD OFFICE/OUTPATIENT NEW HIGH MDM 60 MINUTES Robert Vail DO Phone: tel: fax: [facility] [address] [address] Phone: tel: fax: Referral IDStatusReasonStart DateExpiration DateVisits RequestedVisits [id number]/14/202512/31/20252030 [facility] Summary Purpose Family History Relationship [...] No March 20 1:53pm Hospital Course Note [facility] Clinical Discharge Summary PERSON INFORMATION Name SANDRA TAVAREZ Age 79 Years 1940 Sex FEMALE Language [place] PCP Robert Vail Marital Status Med Service Med/Surg Acct# Arrival 05/23/2020 09:44:18 Visit Reason SURGERY - LEFT TOTAL KNEE Acuity LOS Address: [address] [place] [address] Comment: PROVIDER INFORMATION VITALS INFORMATION Vital Sign [...] whether neurogenic claudication present (M48.061) Referral Organization [facility] Ne urosurgery Referring Provider First Name Usama Referring Provider Last Name Eusebio Referring Provider Specialty Neurologica l Surgery Referred Organization [facility] Pain Managemen t Referred Provider Michael Dunaway Referred Address [address],[place] [address] ,[place], [place],[address] Referred Provider Specialty Pain Medicin e Referral Priority Routine General Notes Fore, Pamela M 022 10:55:11 AM >Received today and [...] pain Ischial bursitis Lumbosacral spondylosis Chief Complaint [facility] [...] 10:31am Type 2 diabetes mellitus with hyperglyce [facility] August 12, 2025 10:31am Chief Complaint [...] 10:31am Type 2 diabetes mellitus with hyperglyce [facility] August 12, 2025 10:31am Venous hypertension, chronic, with ulcer August 12, 2025 10:31am Anticoagulant long-term use August 12:00pm Other chronic pain September 23, 2025 1 2:00pm Post laminectomy syndrome September 23, 2025 12:00pm Sacroiliitis September 23, 2025 1 2:00pm Additional Source Comments INFORMATION SOURCE (unrecogn ized section and content) DATE CREATED AUTHOR 08/15/2020 [facility] DATE CREATED AUTHOR AUTHOR'S ORGANIZ ATION 04/11/2023 [facility] DATE CREATED AUTHOR AUTHOR'S ORGANIZ ATION 01/08/2025 [facility] DATE CREATED AUTHOR AUTHOR'S ORGANIZ ATION 04/12/2025 [facility] DATE CREATED AUTHOR AUTHOR'S ORGANIZ ATION 05/12/2025 [facility] EPIC REASON FOR VISIT (unrecogniz ed section and content) ReasonOnset DateCommentsCx PT 01/28/2503 month Follow upHEAD COLD, TIREDLab resultstemp [id number] results1 month Follow upTBHMedication Qu estionmessage4 month/suture [...] Provider Active Start: March 12, 2025 Michael Dunawya , MDAttending ProviderActiveStart: March 12, 2025 Team [...] DateEnd Date Robert Vail MD [address] [place] [address] PCP - GeneralInternal Medicine04/03/24Team MemberRelationshipSpecialtyStart Date End Date Robert Vail MD [address] [place] [facility] [address] PCP - GeneralInternal Medicine04/03/24Team MemberRelationshipSpecialtyStart Date End Date Robert Vail MD [address] [place] [facility] [address] PCP - GeneralInternal Medicine04/03/24am MemberRelationshipSpecialtyStart Date End Date Robert Vail MD [address] [place] [facility] [place] [phone] PCP - GeneralInternal Medicine04/03/24Team MemberRelationshipSpecialtyStart Date End Date Robert Vail MD [address] [place] [facility] [address] PCP - GeneralInternal Medicine04/03/24Team MemberRelationshipSpecialtyStart Date End Date Robert Vail MD [address] [place] [facility] [address] PCP - GeneralInternal Medicine04/03/24Team MemberRelationshipSpecialtyStart Date End Date Robert Vail MD [address] [place] [facility] [address] PCP - GeneralInternal Medicine04/03/24Team MemberRelationshipSpecialtyStart Date End Date Robert Vail MD [address] [place] [facility] [place] [phone] PCP - GeneralInternal Medicine04/03/24Team MemberRelationshipSpecialtyStart Date End Date Robert Vail MD [address] [place] [phone] PCP - GeneralInternal Medicine04/03/24Team MemberRelationshipSpecialtyStart Date [...] Date Robert Vail DO PCP - GeneralInternal [facility]04/03/24Team MemberRelationshipSpecialtyStart Date End Date Robert Vail DO PCP - GeneralInternal [facility]04/03/24Te MemberRelationshipSpecialtyStart Date End Date Robert Vail DO PCP - GeneralT[facility] Centernal [facility]04/03/24 Team Status: Inactive Member Role Status Dates Robert Vail DO Primary Care Provide r, Attending Provider Active Start: April 09, 2025 End: April 09, 2025Team MemberRelationshipSpecialtyStart DateEnd Date Robert Vail DO PCP - GeneralT[facility] Centernal [facility]04/03/24Team MemberRelationshipSpecialtyStart Date End Date Robert Vail DO [facility] - [facility]04/03/24Team MemberRelationshipSpecialtyStart Date End Date Robert Vail DO PCP - GeneralInternal [facility]04/03/24Team MemberRelationshipSpecialtyStart Date End Date Robert Vail DO PCP - GeneralTucson [facility] Medical Centernal [facility]04/03/24Te MemberRelationshipSpecialtyStart Date End Date Robert Vail DO PCP - GeneralInternal [facility]04/03/24Te MemberRelationshipSpecialtyStart Date End Date Robert Vail [facility]04/03/24 Team Status: Inactive Member Role [...] 2025 End: June 14, 2025Morena Donato APRN BATTERY SERVICE TECHNICIAN-CAttending ProviderActive Start: June 14, 2025 End: June [...] BE BASED ON THE PRIMARY CLINICAL RECORDS. [facility] [employer] provides no warranty or guarantee of the accuracy or completeness of information in this document.
== END 2025-10-15 10:12 | disposition home or self-care (01) ==
LOC: WC 10:11
PROVIDERS: PCP Internal Medicine; Visit Provider Physician Assistant
DX: I87.311 Chronic venous hypertension (idiopathic) with ulcer of right lower extremity (principal); L97.812 Non-pressure chronic ulcer of other part of right lower leg with fat layer exposed
CPT/HCPCS: 29580

== ENCOUNTER 2025-10-28 10:14 | Outpatient (RCR) | payer MEDICARE, OTHER, SELFPAY | END 2025-11-27 12:41 | disposition home or self-care (01) | LOC: MM 10:14 | PROVIDERS: PCP Internal Medicine; Visit Provider Internal Medicine | DX: Z51.81 Encounter for therapeutic drug level monitoring (principal); Z79.01 Long term (current) use of anticoagulants; I82.409 Acute embolism and thrombosis of unspecified deep veins of unspecified lower extremity | CPT/HCPCS: 85610; G0463 ==

== ENCOUNTER 2025-11-05 11:05 | Outpatient (OUT) | payer MEDICARE, OTHER, SELFPAY ==
--- OUTSIDE RECORDS SUMMARY | 2025-11-05 11:11 | XMS_ITS | CCD ---
Author Organization [facility] Care Team Providers Care Plugman Name Role Phone ROBERT VAIL Primary Care Physician [phone] Quita Simmons Unavailable Usama Batista Unavailable Michael [...] Unavailable Genna, DO Jones Primary Care Provider [phone] MD Juancarlos Campbell Attending Provider DO Robert Vail Primary Care Provider MD Juancarlos Campbell Attending Provider Genna, DO Jones Primary Care Provider MD Michael Dunaway Attending Provider [phone] Genna, DO Jones Primary Care Provider [...] Attending Provider Ball DO, Robert Attending Provider [phone] Morena Donato APRN Attending Provider Ball DO, Robert Primary Care Provider Ball DO, Robert Attending Provider [phone] Ball DO, Robert Primary Care Provider [phone] Ball DO, Robert Attending Provider [phone] Michael Dunaway MD Attending Provider [phone] Allergies Allergy ClassificationReported Allergen(s)Allergy TypeDate of OnsetReaction(s) FacilityNSAIDs (1 source)celecoxibDrug Sudengf91-23-3477CjqazZqxwezuoaUniversity Hospitals [facility] Penicillins (antibiotic) (1 source)PenicillinsDrug Uvkjwkw30-41-5937UxqaiPqxhplaauCleveland Clinic Mentor Hospitalerotonin Reuptake Inhibitors (SSRIs) (1 source)CitalopramDrug Hiydghr58-14-9639HqbixAciejgghyOhioHealth Nelsonville Health Center (2 sources)Adhesive Tape; Translations: [Tape]Drug allergyOur [facility] of [facility] (20 sources)celecoxib; Translations: [celecoxib]Drug Ywpmnom43-94-5191kytd, Hives, UnknownMercy Health Anderson Hospital (1 source)Penicillins; Translations: [penicillins]Drug allergygrogProMedica Bay Park Hospital Comment on above:Pt. states PCN doesn't work for me, it just doesn't work (20 sources)Penicillin GDrug AllergyLower Keys Medical Center View3 Other (20 sources)Penicillins; Translations: [Penicillins]Allergy to substance 51-07-0384Jvrw, Itching, SwellingWyandot Memorial Hospital (2 sources)celecoxibDrug Kdvlclo78-26-5558Xrd [facility] Repository (1 source)CitalopramDrug AllergyMer[facility] Repository (1 source)DesonideDrug AllergyMercy Health Allen Hospital Repository (20 sources)CitalopramDrug Oazmiir74-56-6586XzysadrCorey Hospital (18 sources)PenicillinDrug Xsaiqdb97-43-2584VaerlqhAzfyzStandout Jobs Other (1 source)Substance with penicillin structure and antibacterial mechanism of action (substance)Drug allergyDeaconess HospitalStandout Jobs Other (1 source)patient allergy list reviewed by nurse or physiciaPropensity to adverse hwveemiti14-90-6019Ndoexsq:[facility] Hospitalmakerist Other (1 source)celecoxibDrug Jksklpa22-72-9365RdgirmofuWyandot Memorial Hospital Repository (1 source)CitalopramDrug Efhoeas04-18-6617Drohdpltx[address] [place] [address] Repository (20 sources)celecoxibDrug Qqbzsbb48-96-7291Iwmme, Itching, Rash, SwellingNOMS Healthcare (20 sources)Wound Dressing AdhesiveDrug Otuzcma65-92-4097HldzELCO Healthcare Medications Current Medications MedicationDrug Class(es)DatesSig (Normalized)Sig (Original)AeroChamber Mini Chamber - (20 sources)Start: 22-48-6346OpzwXhuawse Mini Chamber - Use with MDI inhaled Use q 4 hours as needed for cough for 30 days Feb, ActiveAllegra Allergy 180 MG (20 sources)Start: 17-18-2301bxmm 1 tablet by mouth once dailyAllegra Allergy 180 MG 1 tablet Swallow whole with water; do not take with fruit juices. Orally Once a day for 30 days Feb, Activeatorvastatin 20 mg oral tablet (20 sources)HMG-CoA Reductase InhibitorStart: 06-18-2025 End: 84-79-6861mmxe 1 tablet by mouth once daily in the eveningAtorvastatin 20 mg tablet Active 20 MG PO Every evening 90 90 August 12, 2025 11:06am Complies with drug therapyStart: 03-18-2025 End: 55-59-2822Poecbivxttgc 20 mg tablet Discontinued 0 .ROUTE .COMPLEX 90 3 March 18, 2025 6:30pm June 18, 2025 2:46pm TAKE 1 TABLET EVERY DAYStart: 66-61-6478Vdyzllxljxbw 20 mg tablet Active 0 .ROUTE .COMPLEX 90 March 18, 2025 6:30pm TAKE 1 TABLET EVERY DAYStart: 03-27-2015 End: 02-53-2688ahmn 1 tablet by mouth once dailyAtorvastatin 20 mg tablet Discontinued 20 MG PO Daily May 05, 2022 12:00am March 12, 2024 6:05pm furosemide 20 mg oral tablet (20 sources)Loop DiureticStart: 09-21-2024 End: 37-34-6239hgrl 1 tablet by mouth twice dailyFurosemide 20 mg tablet Active 20 MG PO Twice daily 180 90 September 21, 2024 4:20pm Complies with drug therapyStart: 02-14-2024 End: 78-95-8217nihe 1 tablet by mouth once dailyFurosemide 40 mg tablet Discontinued 40 MG PO Daily February 14, 2024 12:00am September 21, 2024 3:26pm Start: 55-73-8072dxxg 1 tablet by mouth twice dailyLasix 20 mg Tab 20 mg = 1 tab(s), Oral, BID, Refills(s) 0 Start Date: 03/03/22 Status: OrderedInhalational Spacing Device (Aerochamber Mini) spacer (20 sources)Start: 24-36-8804Tbjfagbhzkxe Spacing Device (Aerochamber Mini) spacer Active 0 [...] (20 sources)Angiotensin 2 Receptor BlockerStart: 06-18-2025 End: 66-18-2425cvix 1 tablet by mouth once dailyLosartan 50 mg tablet Active 50 MG PO Daily 90 90 3 August 12, 2025 11:07am Complies with drugtherapyStart: 03-18-2025 End: 97-32-3463Tavzxuzl 50 mg tablet Discontinued 0 .ROUTE .COMPLEX 90 3 March 18, 2025 6:31pm June 18, 2025 2:46pm TAKE 1 TABLET EVERY DAYStart: 03-03-2022 End: 20-48-3848nwcy 1 tablet by mouth once dailyLosartan 50 mg tablet Discontinued 50 MG PO Daily February 14, 2024 12:00am March 12, 2024 6:05pmtake 1 tablet by mouth in the morninglosartan (Cozaar) 25 MG tablet Take 25 mg by mouth in the morning. ActivemethylPREDNISolone 4 mg oral tablet (1 source)CorticosteroidStart: 58-21-4849Kxrena 4 MG as directed Orally as directed for 6 days Oct, Activemupirocin 0.02 mg/mg topical ointment (4 sources)RNA Synthetase Inhibitor AntibacterialStart: 23-85-4134Anmfdeito 2 % ointment Active 1 APPLIC TOPICAL Twice daily 22 0 June 14, 2025 12:00am Cellulitis Skin tear Cellulitis, unspecified Complies with drug therapy polysaccharide iron complex 150 mg oral capsule (20 sources)Start: 12-10-2024 End: 50-11-2126Jevymqvwoducsq Iron Complex (Ferrex 150) 150 mg iron capsule Active 150 MG PO Daily August 12, 2025 11:10am Complies with drug therapyStart: 08-27-2024 End: 59-17-0099wjxf 1 capsule by mouth once dailyPolysaccharide Iron Complex (Ferrex 150) 150 mg iron capsule Discontinued 0 .ROUTE .COMPLEX 26 04August 27, 2024 12:37pm December 10, 2024 2:45pm TAKE 1 CAPSULE BY MOUTH DAILYStart: 08-10-2024 End: 52-04-3963Grjhssfilnvujx Iron Complex (Ferrex 150) 150 mg iron capsule Discontinued 150 MG PO every other dayS2023 12:00am August 27, 2024 12:37pmStart: 06-22-2022 End: 16-18-7821Qgzhwauuzglllr Iron Complex (Ferrex 150) 150 mg iron capsule Discontinued 150 MG PO Daily February 15, 2024 3:00pm August 10, 2024 12:24pmStart: 72-45-3088yglh 1 capsule by mouth once dailyFerrex-150 oral [...] release oral capsule (20 sources)Start: 03-18-2025 End: 44-93-6361Opqveubdj Chloride 10 mEq capsule, extended release Active 0 .ROUTE .COMPLEX 90 August 12, 2025 11:07am TAKE 1 CAPSULE EVERY DAY Complies with drug therapyStart: 32-15-7926Jdcfjvbcf Chloride 10 mEq capsule, extended release Active 0 .ROUTE .COMPLEX March 18, 2025 6:31pm TAKE 1 CAPSULE EVERY DAYStart: 05-05-2022 End: 11-15-5216hpyw 1 capsule by mouth once dailyPotassium Chloride 10 mEq capsule, extended release Discontinued 10 MEQ PO Daily February 14, 2024 12:00am March 12, 2024 6:05pmStart: 96-06-6200gwig 1 tablet by mouth once daily potassium chloride 10 mEq ER Tab 10 mEq = 1 tab(s), Oral, Daily, Refills(s) 0, Other (see comment) Start Date: 03/27/15 Status: Orderedtake 1 dose by mouth once daily at mealtimePotassium Chloride 20 MEQ 1 packet with food Orally Once a day Not-Taking/PRNtiZANidine 4 mg oral tablet (4 sources)Central alpha-2 Adrenergic AgonistStart: 50-93-2190moLBSzchro HCl 4 MG 1/2-1 tablet as needed Orally at bedtime for 30 days Jul, Active warfarin sodium 5 mg oral tablet (20 sources)Vitamin K AntagonistStart: 03-20-2025 End: 28-33-9665Pyuitzjz 5 mg tablet Active 5 MG PO .COMPLEX 30 30 5 August 12, 2025 11:10am 5 mg orally; as directed by coumadin clinic Complies with drug therapyStart: 03-20-2025 End: 47-81-9356ckvb 1 tablet by mouth three times weeklyWarfarin 2.5 mg tablet Discontinued 2.5 MG PO 3 Times a week March 20, 2025 1:36pm August 12, 2025 11:08amStart: 12-13-2024 End: 95-13-8297dndr 1 tablet by mouth once dailyWarfarin 5 mg tablet Discontinued 0 .ROUTE .COMPLEX 240 3 December 13, 2024 6:15pm March 20, 2025 1:38pm TAKE 1 TABLET BY MOUTH DAILYStart: 08-10-2024 End: 66-88-3034szpt 1 tablet by mouth two times weeklyWarfarin 2.5 mg tablet Discontinued 2.5 MG PO Twice a Week August 10, 2024 12:00am February 1:38pmStart: 05-28-2024 End: 43-44-7444mwdx 1 tablet by mouth five times weeklyWarfarin 5 mg tablet Discontinued 5 MG PO 5 TIMES PER WEEK May 28, 2024 12:00am December 13, 2024 6:16pmStart: 02-05-2941fymg 1 tablet by mouth once dailywarfarin (Coumadin) 5 MG tablet Take 5 mg by mouth 1 (one) time each day 10/10/2023 Activetake 1 tablet by mouth two times weeklyCoumadin 5 5 MG 1 tablet Orally Two times a Week Active witch darien 200 mg/ml medicated pad (20 sources)Start: 87-36-1073Igdti Darien (Preparation H Totables Wipes) 50 % pads Indications: Hemorrhoids, unspecified hemorrhoid type Apply 1 Dose topically every 8 (eight) hours if needed (with loose stool to wipe gently) 10 e ach 3 10/31/2023 Active Completed/Discontinued Medications MedicationDrug Class(es)DatesSig (Normalized)Sig (Original)acetaminophen 325 mg / HYDROcodone bitartrate 5 mg oral tablet (20 sources)Opioid AgonistStart: 02-14-2024 End: 52-16-5711noay 1 tablet by mouth twice dailyHydrocodone-Acetaminophen 5-325 mg tablet Discontinued 1 TAB PO Twice daily 0 February 14, 2024 12:00am March 29, 2024 11:00amStart: 67-23-1980elmz 1 tablet by mouth twice daily as needed HYDROcodone-Acetaminophen 5-325 MG 1 tablet as needed Orally twice daily for 14 days Aug, Faoycfsbz937062 200 actuat albuterol 0.09 mg/actuat metered dose inhaler (20 sources)beta2-Adrenergic AgonistStart: 02-14-2024 End: 54-32-3337pkwi 1 puff(s) by inhalation every four hoursAlbuterol Sulfate 90 mcg/actuation HFA aerosol inhaler Discontinued 2 PUFF INHALATION Every 4 hours February 14, 2024 12:00am May 28, 2024 2:24pmStart: 24-46-3858gfea 2 puff(s) by inhalation every four hours as needed for coughAlbuterol Sulfate HFA 108 (90 Base) MCG/ACT 2 puffs Inhalation every 4 hrs as needed for cough and SOB Feb, ActiveStart: 94-53-5799tbmy 2 puff(s) by inhalation every four hours as needed for coughAlbuterol Sulfate HFA 108 (90 Base) MCG/ACT 2 puffs Inhalation every 4 hrs as needed for cough and SOB Feb, ActiveStart: 78-03-1529gzkj 2 puff(s) by inhalation every four hours as needed for coughAlbuterol Sulfate HFA 108 (90 Base) MCG/ACT 2 puffs Inhalation every 4 hrs as needed for cough and SOB Feb, Activealendronic acid 5 mg oral tablet (20 sources)BisphosphonateStart: 02-14-2024 End: 73-11-4946Phmefgdegrq 5 mg tablet Discontinued 5 MG PO February 14, 2024 12:00am March 29, 2024 11:00am 1 tablet 30 minutes before the first food, beverage or medicine of the day with plain water Orally Once a dayStart: 05-05-2022 End: 65-20-9037xqwl 1 tablet by mouth every weekAlendronate 70 mg tablet Discontinued 70 MG PO every week May 05, 2022 12:00am June 23, 2022 10:21am Start: 07-15-2826qfzp 1 tablet by mouth every weekFosamax 70 mg oral tablet 70 mg = 1 tab(s), Oral, qWeek, Refills(s) 0 Start Date: 03/03/22 Status: Ordered Alendronate Sodium 5 MG 1 tablet 30 minutes before the first food, beverage or medicine of the day with plain water Orally Once a day Activeapixaban 5 mg oral tablet (20 sources)Factor Xa InhibitorStart: 05-05-2022 End: 25-59-0304ahgb 1 tablet by mouth once dailyApixaban (Eliquis) 5 mg tablet Discontinued 5 MG PO Daily May 05, 2022 12:00am May 28, 2024 2:24pmEliquis 5 MG TAKE 1 TABLET TWICE DAILY ActiveEliquis Activeazithromycin 250 mg oral tablet (20 sources)Macrolide AntimicrobialStart: 97-58-6503Ajgveepnhskb 250 MG as directed Orally daily for 5 days Feb, Not-Taking/PRNStart: 12-27-2022 Azithromycin 500 MG 1 tablet Orally for 5 days Nov, Not-Taking/PRN benzonatate 200 mg oral capsule (20 sources)Non-narcotic AntitussiveStart: 02-14-2024 End: 50-28-8932lgku 1 capsule by mouth three times dailyBenzonatate 100 mg capsule Discontinued 100 MG PO Three times daily February 14, 2024 12:00am April 30, 2024 3:05pmStart: 02-14-2024 End: 75-05-1498rmof 1 capsule by mouth three times dailyBenzonatate 200 mg capsule Discontinued 200 MG PO Three times daily February 14, 2024 12:00am April 30, 2024 3:05pmStart: 75-48-3528bwon 1 capsule by mouth every eight hours Benzonatate 100 MG 1 capsule as needed Orally Three times a day for 10 days Oct, ActiveStart: 76-95-0111ygcp 1 capsule by mouth every eight hours Benzonatate 200 MG 1 capsule Orally Three times a day for 10 13 Feb, 2023 Active Start: 00-23-9238fpwn 1 capsule by mouth every eight hoursTessalon Perles 100 MG 1 capsule as needed Orally Three times a day for 7 days Aug, Active cephalexin 500 mg oral capsule (19 sources)Cephalosporin AntibacterialStart: 31-48-6551bhbm 1 capsule by mouth twice daily as neededCephalexin 500 MG 1 capsule Orally twice daily for 14 days Jun, Not-Taking/PRNStart: 72-65-3150qizu 1 capsule by mouth every twelve hoursCephalexin 500 MG 1 tablet Orally Twice a day for 7 days Aug, Not-Takingcodeine phosphate 2 mg/ml / guaiFENesin 20 mg/ml oral solution (20 sources)Opioid AgonistStart: 18-41-7152ickm 10 mL by mouth every six hours as needed for coughguaiFENesin-Codeine 100-10 MG/5ML 10 mL as needed Orally every 6 hours as needed for cough Feb, Not-Taking/PRNcolestipol hydrochloride 1000 mg oral tablet (20 sources)Bile Acid SequestrantStart: 02-14-2024 End: 32-99-6326Wlmlbvfcht 1 gram tablet Discontinued 2 GM PO Daily February 14, 2024 12:00am May 28, 2024 2:25pmStart: 02-14-2024 End: 41-85-4085lcba 2 g by mouth once dailyColestipol Discontinued 2 GM PO Daily February 14, 2024 12:00am May 28, 2024 2:25pmStart: 76-14-1775rnpk 2 tablets by mouth every twenty-four hoursColestipol HCl 1 GM 2 tablets Orally Once a day for 30 days Jun, Activetake 2 tablets by mouth every twenty-four hours Colestipol HCl 1 GM 2 tablets Orally Once a day for 90 days Activedoxycycline monohydrate 100 mg oral tablet (20 sources)Tetracycline-class DrugStart: 06-14-2025 End: 71-52-6069cert 1 tablet by mouth twice dailyDoxycycline Monohydrate 100 mg tablet Discontinued 100 MG PO Twice daily 20 10 0 June 14, 2025 12:00am August 12, 2025 10:32amStart: 01-04-2025 End: 70-61-1267zalu 1 capsule by mouth twice dailyDoxycycline Hyclate 100 mg capsule Discontinued 100 MG PO Twice daily 14 7 0 January 16, 2025 1:46pm April 09, 2025 10:23amStart: 02-15-2024 End: 93-32-5354ivtp 1 capsule by mouth twice dailyDoxycycline Hyclate 100 mg capsule Discontinued 100 MG PO Twice daily 20 10 0 February 15, 2024 12:00am May 28, 2024 2:25pmStart: 05-74-0003wnfu 1 capsule by mouth twice daily as needed Doxycycline Hyclate 100 MG 1 capsule Orally twice daily for 7 days March, Not-Taking/PRNStart: 05-05-2022 End: 76-69-7168akji 1 capsule by mouth once dailyDoxycycline Hyclate 100 mg capsule Discontinued 100 MG PO Daily May 05, 2022 12:00am June 23, 2022 10:21amempagliflozin 10 mg oral tablet (6 sources)Sodium-Glucose Cotransporter 2 InhibitorStart: 04-19-2025 End: 06-52-2931mggs 1 tablet by mouth once daily in the morningEmpagliflozin (Jardiance) 10 mg tablet Discontinued 10 MG PO Every morning 30 30 5 April 19, 2025 12:00am August 12, 2025 11:06am0.8 ml enoxaparin sodium 150 mg/ml prefilled syringe (20 sources)Low Molecular Weight HeparinStart: 12-14-2024 End: 79-68-2957Rixqbwggoc 120 mg/0.8 mL syringe Discontinued 0 .ROUTE .COMPLEX 4.8 0 December 14, 2024 6:34pm March 20, 2025 1:35pm INJECT 1 syringe EVERY 12 HOURS FOR 6 DAYSStart: 12-14-2024 End: 81-78-4755Tzajzryxps (Lovenox) 120 mg/0.8 mL syringe Discontinued 0 SUBCUT Every 12 hours 4.8 6 0 December 14, 2024 1:00am December 14, 2024 6:34pm subcutaneously every 12 hours; Start 3 days prior to surgery, hold on morning of surgery, restart when surgeon determines safe.Enoxaparin 120 mg/0.8 mL syringe (12 sources)Start: 12-14-2024 End: 55-00-8482Xbsmqlyryn 120 mg/0.8 mL syringe Discontinued 0 .ROUTE .COMPLEX 4.8 December 14, 2024 6:34pm 2024 1:35pm INJECT 1 syringe EVERY 12 HOURS FOR 6 DAYSStart: 66-04-7176Bbcjrncfny 120 mg/0.8 mL syringe Active 0 .ROUTE .COMPLEX 4.8 December 14, 2024 6:34pm INJECT 1 syringe EVERY 12 HOURS FOR 6 DAYSStart: 96-96-5272Fveoshaqzn 120 mg/0.8 mL syringe Active 0 .ROUTE .COMPLEX 4.8 December 14, 2024 5:34pm INJECT 1 syringe EVERY 12 HOURS FOR 6 DAYSferrous sulfate 325 mg oral tablet (20 sources)Start: 06-23-2022 End: 75-48-6640fmlx 1 tablet by mouth once dailyFerrous Sulfate [...] tablet (20 sources)Histamine-1 Receptor AntagonistStart: 02-14-2024 End: 52-63-0942txyb 1 tablet by mouth once daily as neededFexofenadine (Carole Allergy) 180 mg tablet Discontinued 180 MG PO Daily as needed for allergic sym ptoms February 14, 2024 12:00am March 20, 2025 1:35pmStart: 57-02-4608omsc 1 tablet by mouth once dailyAllegra Allergy 180 MG 1 tablet Swallow whole with water; do not take with fruit juices. Orally Once a day for 30 days Feb, ActiveIron (1 source)take 1 tablet by mouth once dailyIron 325 (65 Fe) MG 1 tablet Orally Once a day Not-TakinglevETIRAcetam 500 mg oral tablet (20 sources)Start: 03-12-2024 End: 41-13-9914Gvnzahtfsxppy 500 mg tablet Discontinued 750 MG PO Twice daily 270 90 3 June 18, 2025 2:42pm August 12, 2025 11:09amStart: 03-12-2024 End: 59-02-3940mawx 750 mg by mouth twice dailyLevetiracetam Active 750 MG PO Twice daily 270 90 March 12, 2024 6:04pmStart: 02-14-2024 End: 05-32-7960Rcmebtyfnyqge 500 mg tablet Discontinued 750 MG PO Daily February 14, 2024 12:00am March 12, 2024 5:05pmStart: 02-14-2024 End: 81-12-3234tluv 750 mg by mouth once dailyLevetiracetam Discontinued 750 MG PO Daily February 14, 2024 12:00am March 12, 2024 5:05pmStart: 05-05-2022 End: 52-59-7588ajrn 1 tablet by mouth once dailyLevetiracetam 500 mg tablet Discontinued 500 MG PO Daily May 05, 2022 12:00am February 14, 2024 1:06pm Start: 11-20-2014 End: 89-66-0761cbdx 1 tablet by mouth twice dailyLevetiracetam 500 mg tablet Discontinued 500 MG PO Twice daily February 14, 2024 1:04pm March 12, 2024 5:05pmtake 1 tablet by mouth every eight hoursKeppra 500 MG 1 tablet Orally tid Not-Takingphenytoin sodium 100 mg extended release oral capsule (20 sources)Anti-epileptic AgentStart: 05-05-2022 End: 86-59-5533hesb 1 capsule by mouth three times dailyPhenytoin Sodium Extended 100 mg capsule Discontinued 100 MG PO Three times daily May 05, 2022 12:00am June 23, 2022 10:21amStart: 67-26-3991lkeg 1 capsule by mouth twice dailyDilantin 100 [...] oral tablet (20 sources)Opioid AgonistStart: 02-14-2024 End: 21-63-5637ckki 1 tablet by mouth once daily at bedtimeTramadol 50 mg tablet Discontinued 50 MG PO Daily at bedtime February 14, 2024 12:00am March 29, 2024 11:00amStart: 71-98-2955lcqo 1 tablet by mouth once daily at bedtime as needed traMADol HCl 50 MG 1 tablet as needed Orally Once a day at bedtime for 14 days Aug, ActiveStart: 18-51-7146kgec 1 tablet by mouth once daily at bedtime as neededtraMADol HCl 50 MG 1 tablet as needed Orally Once a day at bedtime for 14 days Jul, Active Problems Active Problems Problem ClassificationProblemDateDocumented DateEpisodic/ChronicAbdominal hernia (1 source)Diaphragmatic hernia; Translations: [Diaphragmatic hernia without mention of obstruction or gangrene]EpisodicAcute bronchitis (7 sources)Acute bronchitis due to other specified organisms; Translations: [Acute bronchitis]Onset: 01-25-4057CdpvtskbNntjecpcdektxi/social admission (2 sources)Persons encountering health services in other specified circumstances EpisodicAsthma (20 sources)Asthma - currently active; Translations: [Unspecified asthma, uncomplicated]53-14-2318BydxgqvFdqjkbb tract disease (2 sources)Biliary calculus; 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] 71-47-4942JmwpkezrVflulmij (20 sources)After-cataract of bilateral eyes; 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, bilateral]Onset: 049746-98-7487OejxrxfPccwxxp obstructive pulmonary disease and bronchiectasis (20 sources)Simple chronic bronchitis; Translations: [Simple chronic bronchitis] ChronicChronic ulcer of skin (9 sources)Non-pressure chronic ulcer of right calf limited to breakdown of skin; Translations: [Non-pressure chronic ulcer of right calf limited to breakdown of skin]ChronicCoagulation and hemorrhagic disorders (20 sources)Hypercoagulability state; Translations: [Other primary thrombophilia]Onset: 856588-48-6737RkmutzrFjsuykiqijuqq of surgical procedures or medical care (4 sources)Infection following a procedure, other surgical site, initial encounter; Translations: [Other complications of procedures, not elsewhere classified, initial encounter]66-46-2006HfcsxgpnPzhworanaz heart failure; nonhypertensive (1 source)Chronic combined systolic and diastolic heart failure; Translations: [Chronic combined systolic (congestive) and diastolic (congestive) heart failure]ChronicDeficiency and other anemia (4 sources)Iron deficiency anemia secondary to blood loss (chronic); Translations: [IRON DEFIC ANEMIA SEC BLD LOSS CHRN]Onset: 83-40-4198Huoehkb Deficiency and other anemia (1 source)Anemia due to chronic blood loss; Translations: [Iron deficiency anemia secondary to blood loss (chronic)]ChronicDeficiency and other anemia (20 sources)Iron deficiency anemia; Translations: [Iron deficiency anemia, unspecified]Onset: 81-26-3321EcoepebmWsrdjmiixb and other anemia (11 sources)Anemia; Translations: [Anemia, unspecified] Resolved: 955837-15-3511DmjuezqwVgvoxerkln and other anemia (9 sources)Iron deficiency anemia, unspecified; Translations: [Iron deficiency anemia, unspecified]16-20-4023NydfzivuNjgnibmpoy and other anemia (3 sources)Anemia, unspecified; Translations: [Anemia, unspecified]04-09-2025 EpisodicDiabetes mellitus with complications (20 sources)Type 2 diabetes mellitus; Translations: [Type 2 diabetes mellitus with hyperglycemia]Onset: 34-94-7685EwcafvmQkuwpcmq mellitus without complication (1 source)Diabetes ichfkuvh08-81-3880NlsapmqBzkxvlzre of lipid metabolism (20 sources)Hyperlipidemia; Translations: [Pure hypercholesterolemia]Onset: 116492-28-6325LurnneeBmkcjotvvjyhkb and diverticulitis (2 sources)Diverticular disease; Translations: [Diverticulitis of colon]Onset: 429441-18-3784RbvqqfoZ Codes: Adverse effects of medical drugs (6 sources)Adverse effect of anticoagulants, initial encounter; Translations: [Anticoagulants causing adverse effects in therapeutic use]29-84-5642[place] Epilepsy; convulsions (20 sources)Seizure disorder; Translations: [Generalized idiopathic epilepsy and epileptic syndromes, not intractable, without status epilepticus]Onset: 36-62-4174BgfjywwFbhftwva; convulsions (3 sources)Seizure disorder; Translations: [Seizure]36-22-5696YvyqlnesSozrqtjcco disorders (20 sources)Gastroesophageal reflux disease; Translations: [Gastro-esophageal reflux disease with esophagitis]19-61-1331CwxxveoVnawhqqtl hypertension (20 sources)Hypertensive disorder; Translations: [Essential (primary) hypertension]Onset: 020754-40-6875WjzvbhzPhhziydpsqgxs symptoms and ill- defined conditions (1 source)DysuriaEpisodicImmunity disorders (1 source)Common variable vrjfakwovljiubnbms66-68-0848IxymvwqHgfpcgwmoitsz and screening for infectious disease (20 sources)Contact with and (suspected) exposure to other viral communicable diseases; Translations: [Vaccination given]EpisodicMenopausal disorders (1 source)Primary ovarian failure; Translations: [Other primary ovarian failure] Onset: 24-67-2738PabqhtgRydb disorders (2 sources)Depressive disorder; 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] 82-14-6521JuqoeyhCcfu wounds of extremities (20 sources)Laceration of lower limb; Translations: [Laceration without foreign body, unspecified lower leg, initial encounter]37-83-9694QabnoovmQtei wounds of head; neck; and trunk (10 sources)Tear of skin; Translations: [Open wound(s) (multiple) of unspecified site(s), without mention of complication]30-43-9923IeiaujfaEbednakrbtxnxf (3 sources)Degenerative joint disease of pelvis; Translations: [Osteoarthrosis, unspecified whether generalized or localized, pelvic region and thigh]Onset: 41-49-6158UcrlfnvTwgondxjdtst (20 sources)Osteoporosis; Translations: [Age-related osteoporosis without current pathological fracture]78-82-7037EepzwahImwjp acquired deformities (1 source)Acquired ohodfacmntvmqzxcg15-74-4427YgmihqmqNecbt aftercare (20 sources)Long-term current use of anticoagulant; Translations: [nursing home (current) use of anticoagulants]Onset: 10-55-1584HwigkljzFapoy aftercare (20 sources)nursing home (current) use of anticoagulants; Translations: [Long-term (current) use of anticoagulants]Onset: 02-18-2022 Resolved: 25-84-3875QxlrchcmTulyd aftercare (1 source)Long-term current use of drug therapy; Translations: [Other chcf (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 therapy]EpisodicOther aftercare (20 sources)Encounter for therapeutic drug level monitoring; Translations: [Encounter for therapeutic drug monitoring]89-50-8639TzzwzhrdTupqp and unspecified benign neoplasm (1 source)Adrenal xpvvhau86-49-3168FznzaksjXshpy and unspecified benign neoplasm (1 source)Benign neoplasm of adrenal gland; Translations: [Benign neoplasm of unspecified adrenal gland]EpisodicOther and unspecified benign neoplasm (1 source)Benign neoplasm of right adrenal gland; Translations: [Benign neoplasm of right adrenal gland]EpisodicOther congenital anomalies (1 source)Congenital spondylolysis of lumbosacral region; Translations: [Congenital spondylolysis, lumbosacral region]Onset: 46-57-6856DpaktvcXfvib connective tissue disease (1 source)Artificial knee joint present; Translations: [Presence of left artificial knee joint]ChronicOther connective tissue disease (20 sources)History of lumbar fusion; Translations: [Arthrodesis status]Episodic Other connective tissue disease (20 sources)Pain in calf; Translations: [Pain in unspecified lower leg] 47-61-3093PjaansmdDsacnsy on above:Problem List clean-up per request of Phys. EHR CmteOther connective tissue disease (1 source)Neuralgia; Translations: [Unspecified neuralgia, neuritis, and radiculitis]EpisodicOther connective tissue disease (1 source)Spasm; Translations: [Other muscle spasm]EpisodicOther connective tissue disease (2 sources)Pain in right legEpisodicOther connective tissue disease (20 sources)Ischial bursitis ; Translations: [Other bursitis of hip, unspecified hip]48-74-3962OvlneawqAvfej diseases of bladder and urethra (2 sources)Vesicocolic edtmzvh78-87-7024VtiqmciNkwrv diseases of bladder and urethra (2 sources)Intestinovesical fistula; 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] ChronicOther diseases of veins and lymphatics (1 source)Chronic venous hypertension (idiopathic) without complications of unspecified lower extremity; Translations: [Chronic venous hypertension (idiopathic) without complications of unspecified lower extremity]ChronicOther diseases of veins and lymphatics (12 sources)Chronic peripheral venous hypertension; Translations: [Chronic venous hypertension (idiopathic) without complications of right lower extremity] 69-90-3495YcahchfWhmim diseases of veins and lymphatics (1 source)Chronic venous hypertension (idiopathic) without complications of right lower extremityChronicOther diseases of veins and lymphatics (20 sources)Peripheral venous insufficiency; Translations: [Venous insufficiency (chronic) (peripheral)]Onset: 605309-15-1293QlqavatnXweyh diseases of veins and lymphatics (15 sources)Venous insufficiency (chronic) (peripheral); Translations: [Venous (peripheral) insufficiency, unspecified]EpisodicOther diseases of veins and lymphatics (3 sources)Stasis dermatitis; Translations: [Venous insufficiency (chronic) (peripheral)]EpisodicOther ear and sense organ disorders (1 source)Sensorineural hearing dabf61-29-5476YgxwlxlYfvwf female genital disorders (1 source)Abnormal uterine bleeding; Translations: [Abnormal uterine and vaginal bleeding, unspecified]Onset: 78-05-0911HlksvmfCfkqh gastrointestinal disorders (1 source)Intra-abdominal and pelvic swelling, mass and lump; Translations: [Intra-abdominal and pelvic swelling, mass and lump, unspecified site]Episodic Other injuries and conditions due to external causes (2 sources)History of fall; Translations: [Personal history of fall]Onset: 99-55-4310FjqqsseyBarmi lower respiratory disease (20 sources)Dyspnea; Translations: [Shortness of breath]Onset: 11-18-2014 42-13-8238PlseidouWiqpqvl on above:Problem List clean-up per request of Phys. EHR CmteOther nervous system disorders (20 sources)Chronic pain; Translations: [Other chronic pain]19-50-1216Zcetdzp Other nervous system disorders (20 sources)Other chronic pain; Translations: [Other chronic pain]Onset: 01-28-2022 Resolved: 17-52-4382QghjgxfHholx nervous system disorders (1 source)Carpal tunnel syndrome; Translations: [Carpal tunnel syndrome, unspecified upper limb]ChronicOther nervous system disorders (1 source)Paresthesia; Translations: [Paresthesia of skin]EpisodicOther non- traumatic joint disorders (1 source)Lower limb joint arthritis; Translations: [Osteoarthrosis, unspecified whether generalized or localized, lower leg]Onset: 69-58-6227LepjjnwRzxev nutritional; endocrine; and metabolic disorders (4 sources)Body mass index 40+ - severely obese; Translations: [Body mass index (BMI) 50.0-59.9, adult]Onset: 63-16-9058KyowaplJmgcm nutritional; endocrine; and metabolic disorders (2 sources)Morbid obesity; Translations: [Morbid (severe) obesity due to excess calories]54-98-7388AmdhlxxNzdra nutritional; endocrine; and metabolic disorders (4 sources)Obesity; Translations: [Obesity, unspecified]69-03-3824XsfbfbkIqacl upper respiratory disease (20 sources)Allergic rhinitis due to pollen; Translations: [Allergic rhinitis due to pollen]82-97-7034XnvscelMavxk upper respiratory disease (1 source)Allergic rhinitis due to pollenChronicOther upper respiratory disease (1 source)Seasonal allergic rhinitis; Translations: [Other seasonal allergic rhinitis]Onset: 40-25-4288GkqwxteKdfpx upper respiratory disease (1 source)Other specified disorders of nose and nasal sinusesEpisodicPeri-; endo-; and myocarditis; cardiomyopathy (except that caused by tuberculosis or sexually transmitted disease) (1 source)Dilated cardiomyopathy; Translations: [Dilated cardiomyopathy]Chronic Peripheral and visceral atherosclerosis (1 source)Peripheral vascular disease; Translations: [Other peripheral vascular disease]Onset: 59-00-5156HrtpkdzQlpylqszb; thrombophlebitis and thromboembolism (4 sources)H/O: Deep vein thrombosis; Translations: [Embolism from thrombosis of vein of distal lower extremity]Onset: 642540-37-6026XkwrxrlqLmwadetjq heart disease (3 sources)Pulmonary hypertension; Translations: [Chronic pulmonary heart disease]Onset: 878453-14-0018KeypxxbNeffktpxo heart disease (4 sources)H/O: pulmonary embolus; Translations: [Pulmonary thromboembolism] 73-60-2051AccfejcrIpnzszzn codes; unclassified (20 sources)Obstructive sleep apnea syndrome; Translations: [Obstructive sleep apnea (adult) (pediatric)]31-36-4987ZhhqvznEzgrwdkb codes; unclassified (20 sources)Obstructive sleep apnea (adult) (pediatric); Translations: [Obstructive sleep apnea (adult)(pediatric)]ChronicResidual codes; unclassified (1 source)Family history of leukemia; Translations: [FAMILY HISTORY OF LEUKEMIA] Onset: 02-04-8579GdejtkdfTbbketxw codes; unclassified (1 source)Family history of malignant neoplasm of other organs or systems; Translations: [FAM HX MALIG NEOPLASM OTH ORGN/SYS]Onset: 66-43-6255Vxlyhbsy Residual codes; unclassified (1 source)Postmenopausal state; Translations: [Asymptomatic menopausal state] EpisodicResidual codes; unclassified (9 sources)Mammogram declined; Translations: [Procedure and treatment not carried out because of patient's decision for unspecified reasons]04-07-2025 EpisodicResidual codes; unclassified (3 sources)Procedure and treatment not carried out because of patient's decision for unspecified reasons; Translations: [Surgical or other procedure not carried out because of patient's decision]38-79-2038EvtwqkhfQhvwhsy detachments; defects; vascular occlusion; and retinopathy (20 sources)Epiretinal membrane of right eye; 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, right eye]Onset: 592950-06-4685JvmqbgfHuap and subcutaneous tissue infections (20 sources)Erysipelas; Translations: [Cellulitis of right lower limb]Onset: 08-17-2017 Resolved: 82-57-8559OfrdzajsMbowbxsobyh; intervertebral disc disorders; other back problems (20 sources)Solitary sacroiliitis; Translations: [Sacroiliitis, not elsewhere classified]Onset: 02-18-2022 Resolved: 22-92-5949KwdpkcbReixyfflsyw; intervertebral disc disorders; other back problems (20 sources)Spinal stenosis of lumbar region; Translations: [Spinal stenosis, lumbar region without neurogenic claudication]Onset: 02-22-2017 Resolved: 609645-59-7369LafppkzzWjlcqwa and strains (2 sources)Sprain of ligament of tarsometatarsal joint; Translations: [Sprain of tarsometatarsal ligament of left foot, initial encounter]Onset: 11-07-2018 EpisodicSuperficial injury; contusion (17 sources)Contusion of lower leg; Translations: [Contusion of left lower leg, initial encounter]Onset: 12-26-3664XdxgdrvzOyvfosw disorders (20 sources)Thyroid nodule; Translations: [Nontoxic single thyroid nodule]Onset: 32-56-6689TpqokocRecgpzkrrrjh (1 source)Long-term current use of drug therapy; Translations: [Long-term (current) use of other medications]Onset: 65-61-2110Ocqvcbcooarc (1 source)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); Translations: [Post COVID-19 condition, unspecified]Unclassified (1 source)Non-healing surgical wound; Translations: [Non-healing surgical wound] Onset: 68-50-1163Cfdymdfvxhgw (1 source)Acute candidiasis of vulva and vagina; Translations: [Acute candidiasis of vulva and vagina]Unclassified (1 source)Infection following a procedure, unspecified, initial encounter; Translations: [Infection followinga procedure, unspecified, initial encounter] Onset: 43-63-1745Znynodwk veins of lower extremity (20 sources)Varicose veins of lower extremity; Translations: [Varicose veins of bilateral lower extremities with other complications]EpisodicViral infection (1 source)Viral infection, unspecifiedEpisodicViral infection (2 sources)COVID-19; Translations: [Disease caused by 2019-nCoV] Past or Other Problems Problem ClassificationProblemDateDocumented DateEpisodic/ChronicAbdominal pain (1 source)Right lower quadrant pain; Translations: [Right lower quadrant pain] Onset: 05-01-4966EvuaztgvUvdphfxpt infection; unspecified site (1 source)Bacterial infectious disease; Translations: [Bacterial infection, unspecified, in conditions classified elsewhere and of unspecified site]Onset: 34-18-8510UmpdnqivWuzjwukvham and hemorrhagic disorders (1 source)Bleeding; Translations: [Hemorrhagic condition, unspecified]Onset: 85-80-3810ZivbjarvOylfznfv mellitus without complication (1 source)Impaired fasting glycemia; Translations: [Impaired fasting glucose] Resolved: 94-61-9534MocjwhisPnshkzlofz disorders (3 sources)Esophageal disorders; Translations: [Gastro-esophageal reflux disease with esophagitis, without bleeding]Fluid and electrolyte disorders (1 source)Hypokalemia; Translations: [Hypokalemia]Onset: 62-98-9988Ghtjkiud Inflammation; infection of eye (except that caused by tuberculosis or sexually transmitteddisease) (20 sources)Blepharitis of upper and lower eyelids of bilateral eyes; Translations: [Unspecified blepharitis right eye, upper and lower eyelids]Onset: 107172-97-5956KqytunqnEjajgjwgmn infection (1 source)Infectious colitis, enteritis and gastroenteritis; Translations: [Infectious gastroenteritis and colitis, unspecified] Resolved: 74-25-3012DiuzogdwQqybf disorders and dislocations; trauma-related (1 source)Current tear of medial cartilage AND/OR meniscus of knee; Translations: [Other tear of medial meniscus, current injury, left knee, initial encounter]Onset: 39-96-8575QdfpzatmXtwijsd and fatigue (1 source)Malaise and fatigue; Translations: [Other malaise and fatigue]Onset: 37-89-0898ZvqwtqltLcrhtfaaamg chest pain (1 source)Chest pain; Translations: [Chest pain, unspecified]Onset: 02-14-2014 EpisodicOther connective tissue disease (1 source)Achilles tendinitis, left legOnset: 11-07-2021 Resolved: 21-99-8578AvtcvwpdXrlhd connective tissue disease (1 source)Arthrodesis statusOnset: 01-28-2022 Resolved: 97-86-9349JgccpkadIdnyo connective tissue disease (1 source)Prepatellar bursitis of left knee; Translations: [Prepatellar bursitis, left knee]Onset: 91-85-3061AnuwbmojFhmox connective tissue disease (1 source)Pain in left lower limb; Translations: [Pain in left leg]Onset: 00-02-9978ZommwuemTbrew connective tissue disease (14 sources)Other bursitis of hip, unspecified hip; Translations: [Enthesopathy of hip region]Onset: 513437-59-1941HtsabgrjExztf eye disorders (20 sources)Dry eyes; Translations: [Dry eye syndrome of bilateral lacrimal glands]Onset: 176194-13-0466PgnkniddZeuex gastrointestinal disorders (4 sources)Intra-abdominal and pelvic swelling, mass and lump, unspecified site; Translations: [INTRA-ABD PELVSWELL MASS LUMP]Onset: 68-58-4001WegxkdmlFnxts injuries and conditions due to external causes (1 source)Contusion; Translations: [Contusion of unspecified site]Onset: 34-29-4691YwdfogyoQdkqo nervous system disorders (1 source)Neurogenic claudication; Translations: [Spinal Stenosis, lumbar region with neurogenic claudication]Onset: 41-75-2924OfmdpcfjHptmh non-traumatic joint disorders (1 source)Pain in left ankle and joints of left footOnset: 11-07-2021 Resolved: 10-22-9635BsgfbibpMgvox non-traumatic joint disorders (1 source)Arthralgia of the ankle and/or foot; Translations: [Pain in joint, ankle and foot]Onset: 35-25-1325FqwdtcvbUzneg non-traumatic joint disorders (1 source)Knee joint effusion; Translations: [Effusion, left knee]Onset: 88-47-8152JfbmsdhyHghvf non-traumatic joint disorders (1 source)Arthralgia of the lower leg; Translations: [Pain in right knee]Onset: 16-88-4616CxztzynfPqivx screening for suspected conditions (not mental disorders or infectious disease) (6 sources)Encounter for screening mammogram for malignant neoplasm of breast; Translations: [Imaging of abdomen abnormal]Onset: 15-83-9418LjbktajmVxoxm skin disorders (1 source)Mass in head or neck; Translations: [Swelling, mass, or lump in head and neck]Onset: 28-07-0588DiwrlyxyAxjvkxuo codes; unclassified (1 source)Asymptomatic menopausal stateOnset: 01-28-2022 Resolved: 55-28-2510OlnccbquIdwxjqjl codes; unclassified (1 source)Family history of ischemic heart disease; Translations: [Family history of ischemic heart disease]Onset: 01-58-1008YfssoxtnOwwttypx codes; unclassified (1 source)Edema; Translations: [Edema]Onset: 34-67-2087GkjbmosbUmihngxt codes; unclassified (1 source)Requires influenza virus vaccination; Translations: [Need for prophylactic vaccination and inoculation, Influenza]Onset: 04-20-3162Tvxqyqum Residual codes; unclassified (1 source)Localized edema; Translations: [Localized edema]Onset: 10-07-2016 EpisodicScreening and history of mental health and substance abuse codes (1 source)History of tobacco use; Translations: [Personal history of tobacco use, presenting hazards to health]Onset: 66-26-6046LmuigsvpOwqmclszgpkt (1 source)Low back pain, unspecified M54.50Onset: 01-28-2022 Resolved: 25-76-6429Uuihuatauzdq (1 source)Acute cough R05.1Unclassified (1 source)Suspected COVID-19 virus infection Z20.822 Results Test NameValueInterpretationReference RangeFacilityBasophils Auto (Bld) [#/Vol] on 38-97-3035Fxtsfdbyr (Bld) [#/Vol]Automated basophil count0.0-0.1FSelect Medical Cleveland Clinic Rehabilitation Hospital, Edwin ShawBasophils (Bld) [#/Vol]0.0 10 3/uL0.0-0.1FSelect Medical Cleveland Clinic Rehabilitation Hospital, Edwin ShawBasophils/100 WBC Auto (Bld)on 82-00-3781Hhdznggox/100 WBC (Bld)Automated basophil %0.2-2.0[facility] Basophils/100 WBC (Bld)0.6 %0.2-2.0[facility] HospitalCholesterol in LDL Calc [Mass/Vol]on 90-13-1839Wylcinoaujl in LDL [Mass/Vol]Cholesterol in LDL [Mass/volume] in Serum or Plasma by calculationWyandot Memorial HospitalComment on above:<100 mg/dl BCKZCJZ667-215 mg/dl NEAR OR ABOVE FOVXXPH982- 159 mg/dl BORDERLINE XUAK406-297 mg/dl HIGH>190 mg/dl VERY HIGHCholesterol in LDL [Mass/Vol]52.0 mg/dLWyandot Memorial HospitalComment on above:<100 mg/dl CAKEATT499-310 mg/dl NEAR OR ABOVE PLFXUMX818-435 mg/dl BORDERLINE WDTE318-262 mg/dl HIGH>190 mg/dl VERY HIGHCholesterol in VLDL Calc [Mass/Vol]on 37-82-5691Fbmsqmidrgn in VLDL [Mass/Vol]Cholesterol in VLDL [Mass/volume] in Serum or Plasma by calculationWyandot Memorial HospitalCholesterol in VLDL [Mass/Vol]10.0 mg/dLWyandot Memorial HospitalEosinophils/100 WBC Auto (Bld)on 29-42-8021Gdrqnxwrrvs/100 WBC (Bld)Automated eosinophil %0.9-7.0 [facility] HospitalEosinophils/100 WBC (Bld)1.3 %0.9-7.0[facility] HospitalErythrocyte distribution width Auto (RBC) [Ratio]on 37-31-8315Yiiunsvqgvs distribution width (RBC) [Ratio]Erythrocyte distribution width [Ratio] by Automated count11.0-15.0[facility] Erythrocyte distribution width (RBC) [Ratio]14.6 %11.0-15.0[facility] HospitalEstimated glomerular filtration rate (GFR) non- Americanon 55-67-1389RRD/1.73 sq M.predicted among non-blacks MDRD (S/P/Bld) [Vol rate/Area]Estimated glomerular filtration rate (GFR) non->=60 mL/min/1.73m 2FSelect Medical Cleveland Clinic Rehabilitation Hospital, Edwin ShawGFR/1.73 sq M.predicted among non-blacks MDRD (S/P/Bld) [Vol rate/Area]mL/min/{1.73_m2}>=60 mL/min/1.73m 2 [facility] HospitalGlobulin Calc (S) [Mass/Vol]on 04-18-2025 Globulin (S) [Mass/Vol]Serum globulin measurement by calculation (mass/volume) [facility] HospitalGlobulin (S) [Mass/Vol]3.5 g/dLWyandot Memorial HospitalGlucose mean value [Mass/volume] in Blood Estimated from glycated hemoglobinon 55-20-0552Ppsipdw glucose Estimated from glycated hemoglobin (Bld) [Mass/Vol]Glucose mean value [Mass/volume] in Blood Estimated from glycated hemoglobinWyandot Memorial HospitalAverage glucose Estimated from glycated hemoglobin (Bld) [Mass/Vol]154 mg/dLWyandot Memorial HospitalHematocrit Auto (Bld) [Volume fraction]on 79-19-2984Mjfwwqrggw (Bld) [Volume fraction]Hematocrit [Volume Fraction] of Blood by Automated count 36.0-48.0[facility] HospitalHematocrit (Bld) [Volume fraction]41.2 %36.0-48.0[facility] HospitalHemoglobin A1c percentageon 88-34-2873TjQ4w (Bld) [Mass fraction]Hemoglobin A1c percentageHigh4.5-6.2 [facility] HospitalComment on above:ADA RECOMMENDED LIMIT 4.0 - 6.0ADA THERAPEUTIC TARGET < 7.0ACTION SUGGESTED> 7.0HbA1c (Bld) [Mass fraction] 7.0 %High4.5-6.2FSelect Medical Cleveland Clinic Rehabilitation Hospital, Edwin ShawComment on above:ADA RECOMMENDED LIMIT 4.0 - 6.0ADA THERAPEUTIC TARGET < 7.0ACTION SUGGESTED> 7.0 Hemoglobin [Mass/volume] in Bloodon 16-03-4135Jiycsmeiyi (Bld) [Mass/Vol] Hemoglobin [Mass/volume] in Blood12.0-16.0[facility] Hemoglobin (Bld) [Mass/Vol]13.3 g/dL12.0-16.0[facility] - Chemistry and Chemistry - challengeon 41-15-8331Gyikdzt [Mass/Vol] 3.5 g/dL3.4-5.0[facility] HospitalALP [Catalytic activity/Vol]103 U/S00-970NsffhxpjrWyandot Memorial HospitalALT [Catalytic activity/Vol]25 U/L 14-59[facility] HospitalAST [Catalytic activity/Vol]16 U/L15-37 [facility] HospitalBilirubin [Mass/Vol]0.9 mg/dL0.2-1.0[facility] HospitalCalcium [Mass/Vol]9.6 mg/dL8.5-10.1FSelect Medical Cleveland Clinic Rehabilitation Hospital, Edwin ShawChloride [Moles/Vol]103 mmol/V58-310IhxcmwsebWyandot Memorial HospitalCholesterol [Mass/Vol]140 mg/dL<=200[facility] Cholesterol in HDL [Mass/Vol]78 mg/qYUvbu08-63HjnxosereW[facility]ot Memorial Hospital Comment on above:> or =60 mg/dl - LOW CARDIOVASCULAR RISK<40 mg/dl - HIGH CARDIOVASCULAR RISKCO2 [Moles/Vol]30.8 mmol/L21.0-32.0[facility] HospitalCreatinine [Mass/Vol]0.80 mg/dL0.55-1.02[facility] GFR/1.73 sq M.predicted MDRD (S/P/Bld) [Vol rate/Area]mL/min/{1.73_m2}>=60 mL/min/1.73m 2FSelect Medical Cleveland Clinic Rehabilitation Hospital, Edwin ShawGlucose [Mass/Vol]123 mg/dLHigh 74-106[facility] HospitalPotassium [Moles/Vol]4.3 mmol/L3.5-5.1 [facility] HospitalProtein [Mass/Vol]7.0 g/dL6.4-8.2FOhioHealth Southeastern Medical Centerodium [Moles/Vol]142 mmol/J262-948SfilyeaomWyandot Memorial HospitalTriglyceride [Mass/Vol]50 mg/dL<=150[facility] HospitalTSH Qn0.678 m[IU]/L0.358-3.740[facility] HospitalUrea nitrogen [Mass/Vol]16.0 mg/dL7.0-18.0[facility] HospitalUrea nitrogen/Creatinine [Mass ratio]20.0 mg/mgWyandot Memorial Hospital Laboratory - Hematology and Cell countson 13-86-9564Mavfrxex granulocytes/100 WBC (Bld)0.6 %High0.0-0.5FSelect Medical Cleveland Clinic Rehabilitation Hospital, Edwin ShawLeukocytes [#/volume] corrected for nucleated erythrocytes in Blood by Automated counon 91-34-6166RGM corrected for nucl RBC Auto (Bld) [#/Vol]Leukocytes [#/volume] corrected for nucleated erythrocytes in Blood by Automated coun4.0-11.0[facility] HospitalWBC corrected for nucl RBC Auto (Bld) [#/Vol]5.4 10 3/uL4.0-11.0 [facility] HospitalLymphocytes Auto (Bld) [#/Vol]on 04-18-2025 Lymphocytes (Bld) [#/Vol]Lymphocytes [#/volume] in Blood by Automated countLow 1.2-3.8[facility] HospitalLymphocytes (Bld) [#/Vol]0.7 10 3/uLLow 1.2-3.8[facility] HospitalLymphocytes/100 WBC Auto (Bld)on 75-14-8473Dghjhuvbsmf/100 WBC (Bld)Lymphocytes/100 leukocytes in Blood by Automated grxthXss13.5-60.0[facility] HospitalLymphocytes/100 WBC (Bld)13.5 %Low20.5-60.0[facility] HospitalH Auto (RBC) [Entitic mass]on 94-99-5139XQG (RBC) [Entitic mass]MCH [Entitic mass] by Automated count 26.7-34.0[facility] (RBC) [Entitic mass]29.2 pg 26.7-34.0[facility] HospitalMCHC Auto (RBC) [Mass/Vol]on 37-66-3890IAKS (RBC) [Mass/Vol]MCHC [Mass/volume] by Automated count29.9-35.2 [facility] HospitalHC (RBC) [Mass/Vol]32.3 g/dL29.9-35.2 [facility] HospitalMCV Auto (RBC) [Entitic vol]on 70-52-9038KOT (RBC) [Entitic vol]MCV [Entitic volume] by Automated count81.0-99.0[facility] HospitalV (RBC) [Entitic vol]90.5 fL81.0-99.0[facility] HospitalMicroalbumin [Mass/volume] in Urineon 05-90-9646Utlqfgu DL <= 20 mg/L (U) [Mass/Vol]Microalbumin [Mass/volume] in Urine<=30.0[facility] HospitalAlbumin DL <= 20 mg/L (U) [Mass/Vol]2.2 mg/dL<=30.0[facility] HospitalMonocytes Auto (Bld) [#/Vol]on 75-94-4600Kcugaaixa (Bld) [#/Vol]Automated blood monocyte count0.3-0.8[facility] Monocytes (Bld) [#/Vol]0.5 10 3/uL0.3-0.8[facility] Monocytes/100 WBC Auto (Bld)on 52-95-3366Javotkjth/100 WBC (Bld)Automated monocyte %1.7-12.0[facility] HospitalMonocytes/100 WBC (Bld)8.3 % 1.7-12.0[facility] HospitalNeutrophils Auto (Bld) [#/Vol]on 09-22-7426Kplluwskuwi (Bld) [#/Vol]Neutrophils [#/volume] in Blood by Automated count1.4-6.5FSelect Medical Cleveland Clinic Rehabilitation Hospital, Edwin ShawNeutrophils (Bld) [#/Vol]4.1 10 3/uL1.4-6.5FSelect Medical Cleveland Clinic Rehabilitation Hospital, Edwin ShawNeutrophils/100 WBC Auto (Bld)on 32-33-6032Pvalouiqkib/100 WBC (Bld)Automated neutrophil %High43.0-75.0[facility] HospitalNeutrophils/100 WBC (Bld)75.7 %High43.0-75.0[facility] HospitalNo Panel Informationon 78-73-0836Rsslf Random Creatinine 49.06 mg/dL20.00-300.00[facility] HospitalEosinophils # (Auto)0.1 10 3/uL0.0-0.7FSelect Medical Cleveland Clinic Rehabilitation Hospital, Edwin ShawImmature Granulocyte # (Auto)0.03 10 3/uL0.00-0.03[facility] HospitalPlatelet mean volume Auto (Bld) [Entitic vol]on 82-48-0295Orkkjcrw mean volume (Bld) [Entitic vol]Platelet mean volume [Entitic volume] in Blood by Automated count9.5-13.5FSelect Medical Cleveland Clinic Rehabilitation Hospital, Edwin ShawPlatelet mean volume (Bld) [Entitic vol]10.2 fL9.5-13.5 [facility] HospitalPlatelets Auto (Bld) [#/Vol]on 04-18-2025 Platelets (Bld) [#/Vol]Platelets [#/volume] in Blood by Automated obffz553-072 [facility] Memorial HospitalPlatelets (Bld) [#/Vol]194 10 3/rM412-371 [facility] HospitalRB Auto (Bld) [#/Vol]on 94-94-2500UDP (d) [#/Vol]Erythrocytes [#/volume] in Blood by Automated count4.20-5.40[facility] (d) [#/Vol]4.55 10 6/uL4.20-5.40[facility] Hospitalerum or plasma albumin/globulin mass ratioon 04-18-2025 Albumin/Globulin [Mass ratio]Serum or plasma albumin/globulin mass ratio [facility] HospitalAlbumin/Globulin [Mass ratio]1.0 {ratio} [facility] Hospitalerum or plasma anion gap determinationon 83-33-8320Wlfqq gap [Moles/Vol]Serum or plasma anion gap determinationWyandot Memorial HospitalAnion gap [Moles/Vol]12.5 mmol/LFOhioHealth Southeastern Medical Centererum or plasma total cholesterol/high density lipoprotein (HDL) cholesterol mass stephane 05-88-8151Ncjvvumspqo.total/Cholesterol in HDL [Mass ratio]Serum or plasma total cholesterol/high density lipoprotein (HDL) cholesterol mass ratWyandot Memorial HospitalComment on above:3.3 - 4.4 LOW RISK4.4 - 7.1 AVERAGE RISK7.1 - 11.0 MODERATE RISK>11.0 HIGH RISK Cholesterol.total/Cholesterol in HDL [Mass ratio]1.8 {ratio}[facility] HospitalComment on above:3.3 - 4.4 LOW RISK4.4 - 7.1 AVERAGE RISK7.1 - 11.0 MODERATE RISK>11.0 HIGH RISKUrine microalbumin/creatinine mass ratioon 24-71-1995Omxfzuj/Creatinine DL <= 20 mg/L (U) [Mass ratio]Urine microalbumin/creatinine mass ratioHigh0.0-29.9[facility] Comment on above:NO MICROALBUMINURIA 0-29 MG/GCLINICAL MICROALBUMINURIA 30-300 MG/GMACROALBUMINURIA >300 MG/GAlbumin/Creatinine DL <= 20 mg/L (U) [Mass ratio] 44.8 mg/gHigh0.0-29.9[facility] HospitalComment on above:NO MICROALBUMINURIA 0-29 MG/GCLINICAL MICROALBUMINURIA 30-300 MG/GMACROALBUMINURIA >300 MG/GGastroenterology Office/Clinic Noteon 85-27-7110Xsavopkqjwicewhz Office/Clinic NoteGastroenterology Office/Clinic Note Chief Complaint 3 [...] Hg 3077F 2. 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 Redundant colon [...] days ago Toba (more content not included)... [facility] HospitalComment on above:Result Comment: Electronically Signed By: Carmen Goss MA S\.br\Date and Time Signed: 04/11/25 10:07 EDT Ambulatory Visit Summaryon 65-16-9375Oaamipsvzy Visit SummaryAmbulatory Visit Summary SANDRA TAVAREZ :1940 [...] you for choosing us for your care. [facility] HospitalAmbulatory Visit Summaryon 45-44-0469Lhlbochrwn Visit SummaryAmbulatory Visit Summary SANDRA TAVAREZ :1940 [...] you for choosing us for your care. [facility] HospitalINR in Platelet poor plasma by Coagulation assayOrdered By: Michael Dunaway on 71-46-5776HDZ Coag (PPP) [Relative time]INR in Platelet poor plasma by Coagulation assayWyandot Memorial HospitalComment on above:INR Therapeutic Range A) Pre- and Peroperative OAT started two weeks before surgery. NOT HIP SURGERY: 1.5 - 2.5 HIP SURGERY: 2 - 3B) Primary and secondary prevention of venous THROMBOSIS: 2 - 3C) Active venous thrombosis, pulmonary embolismand prevention of recurrent venous thrombosis: 2 - 3D) Prevention of arterial thromboembolismincluding patients with mechanical heart valves: 3 - 4.5Partial Thromboplastin Timeon 11-58-9918tGIJ Coag (Bld) [Time]29.0 hHdepqw39.1-36.5The [facility] Physician GroupComment on above:Result Comment: A hematocrit value greater than 55% may lead to inaccurate results in coagulation testing. Patients having hematocrit values >55% require a special collection tube for coagulation studies. Please contact the laboratory at [phone] for redraw instructions. PERFORMED BY: [address] [address] PATHOLOGIST MAIL CLERK ESDRAS MOREL M.D.Performed By: #### PT, PTT #### [address] [address] USAProthrombin Time INRon 20-30-5057DSD Coag (PPP) [Relative time]1.1 {INR}NormalThe [facility] Physician GroupComment on above:Result Comment: [...] - 4.5Performed By: #### PT, PTT #### [facility] [address] [place] [address] USAPT Coag (PPP) [Time]13.1 sHigh9.0-12.9The [facility] Physician GroupComment on above:Result Comment: A hematocrit value greater than 55% may lead to inaccurate results in coagulation testing. Patients having hematocrit values >55% require a special collection tube for coagulation studies. Please contact the laboratory at [phone] for redraw instructions.Performed By: #### PT, PTT #### [facility] [address] [place] [address] USAProthrombin time (PT)Ordered By: Michael Dunaway on 12-26-2024 PT Coag (PPP) [Time]Prothrombin time (PT)High9.0-12.9[facility] HospitalComment on above:A hematocrit value greater than 55% may lead to inaccurate results in coagulation testing. Patientshaving hematocrit values >55% require a special collection tube for coagulation studies. Please contact the laboratory at [phone] for redraw instructions.aPTT in Platelet poor plasma by Coagulation assayOrdered By: Michael Dunaway on 68-57-8767uARY Coag (PPP) [Time] Activated partial thromboplastin time (aPTT) in platelet poor plasma by coagulation a25.1-36.5FSelect Medical Cleveland Clinic Rehabilitation Hospital, Edwin ShawComment on above:A hematocrit value greater than 55% may lead to inaccurate results in coagulation testing. Patientshaving hematocrit values >55% require a special collection tube for coagulation studies. Please contact the laboratory at [phone] for redraw instructions.INR in Platelet poor plasma by Coagulation assayOrdered By: Michael Dunaway on 29-19-7891SWM Coag (PPP) [Relative time]INR in Platelet poor plasma by Coagulation assayWyandot Memorial HospitalComment on above:INR Therapeutic Range A) Pre- [...] valves: 3 - 4.5 Prothrombin Time INRon 19-40-0176FWS Coag (PPP) [Relative time]1.6 {INR}Normal The [facility] Physician [facility] HospitalComment on above:Result Comment: INR Therapeutic Range A) [...] heart valves: 3 - 4.5 PERFORMED BY: [place] [address] PATHOLOGIST MAIL CLERK ESDRAS MOREL M.D.Performed By: #### PT #### [facility] [address] [place], [place] [address] USAPT Coag (PPP) [Time]18.8 sHigh9.0-12.9The [facility] Physician [facility] HospitalComment on above:Result Comment: A hematocrit value greater than 55% may lead to inaccurate results in coagulation testing. Patients having hematocrit values >55% require a special collection tube for coagulation studies. Please contact the laboratory at [phone] for redraw instructions.Performed By: #### PT #### [facility] [address] [place] [address] USAProthrombin time (PT)Ordered By: Michael Dunaway on 12-24-2024 PT Coag (PPP) [Time]Prothrombin time (PT)High9.0-12.9[facility] HospitalComment on above:A hematocrit value greater than 55% may lead to inaccurate results in coagulation testing. Patientshaving hematocrit values >55% require a special collection tube for coagulation studies. Please contact the laboratory at [phone] for redraw instructions.Basophils Auto (Bld) [#/Vol] on 31-28-7553Keapkwnpt (Bld) [#/Vol]Automated basophil count0.0-0.1FSelect Medical Cleveland Clinic Rehabilitation Hospital, Edwin ShawBasophils/100 WBC Auto (Bld)on 41-06-0577Bfczmqbel/100 WBC (Bld)Automated basophil %0.2-2.0[facility] Eosinophils/100 WBC Auto (Bld)on 46-04-9384Oatideeuzzf/100 WBC (Bld)Automated eosinophil %0.9-7.0[facility] HospitalErythrocyte distribution width Auto (RBC) [Ratio]on 57-15-0080Bsbgbmsaazw distribution width (RBC) [Ratio]Erythrocyte distribution width [Ratio] by Automated count11.0-15.0 [facility] HospitalGlucose mean value [Mass/volume] in Blood Estimated from glycated hemoglobinon 45-05-4904Dsyrsrl glucose Estimated from glycated hemoglobin (Bld) [Mass/Vol]Glucose mean value [Mass/volume] in Blood Estimated from glycated hemoglobinWyandot Memorial HospitalHematocrit Auto (Bld) [Volume fraction]on 46-73-5731Cunkkwawtm (Bld) [Volume fraction] Hematocrit [Volume Fraction] of Blood by Automated count36.0-48.0[facility] HospitalHemoglobin [Mass/volume] in Bloodon 04-45-3558Kjkipgqguw (Bld) [Mass/Vol]Hemoglobin [Mass/volume] in Blood12.0-16.0[facility] HospitalLaboratory - Chemistry and Chemistry - challengeon 12-12-2024 Ferritin [Mass/Vol]39.0 ng/mL8.0-252.0[facility] Laboratory - Hematology and Cell countson 36-05-7328EdB0u (Bld) [Mass fraction] 6.5 %High4.5-6.2FSelect Medical Cleveland Clinic Rehabilitation Hospital, Edwin ShawComment on above:ADA RECOMMENDED LIMIT 4.0 - 6.0ADA THERAPEUTIC TARGET < 7.0ACTION SUGGESTED> 7.0 Immature granulocytes/100 WBC (Bld)0.4 %0.0-0.5FSelect Medical Cleveland Clinic Rehabilitation Hospital, Edwin Shaw Leukocytes [#/volume] corrected for nucleated erythrocytes in Blood by Automated counon 63-68-4795WAY corrected for nucl RBC Auto (Bld) [#/Vol]Leukocytes [#/volume] corrected for nucleated erythrocytes in Blood by Automated coun 4.0-11.0[facility] HospitalLymphocytes Auto (Bld) [#/Vol]on 02-35-0271Tcpbjcpbkuo (Bld) [#/Vol]Lymphocytes [#/volume] in Blood by Automated countLow1.2-3.8[facility] HospitalLymphocytes/100 WBC Auto (Bld)on 37-43-3320Lolmlzclstj/100 WBC (Bld)Lymphocytes/100 leukocytes in Blood by Automated ldtdjXbs93.5-60.0[facility] HospitalH Auto (RBC) [Entitic mass]on 58-22-0744ZJC (RBC) [Entitic mass]MCH [Entitic mass] by Automated count26.7-34.0[facility] HospitalMCHC Auto (RBC) [Mass/Vol]on 25-01-1739SEIG (RBC) [Mass/Vol]MCHC [Mass/volume] by Automated count29.9-35.2FSelect Medical Cleveland Clinic Rehabilitation Hospital, Edwin ShawMCV Auto (RBC) [Entitic vol]on 85-95-2624FWR (RBC) [Entitic vol]MCV [Entitic volume] by Automated count 81.0-99.0[facility] HospitalMonocytes Auto (Bld) [#/Vol]on 31-05-7523Edtlninst (Bld) [#/Vol]Automated blood monocyte count0.3-0.8[facility] HospitalMonocytes/100 WBC Auto (Bld)on 84-22-3534Vgoafrkld/100 WBC (Bld)Automated monocyte %1.7-12.0[facility] Neutrophils Auto (Bld) [#/Vol]on 09-01-4424Bcmokddpmhl (Bld) [#/Vol]Neutrophils [#/volume] in Blood by Automated count1.4-6.5FSelect Medical Cleveland Clinic Rehabilitation Hospital, Edwin Shaw Neutrophils/100 WBC Auto (Bld)on 74-50-4843Hzznvokwknu/100 WBC (Bld)Automated neutrophil %High43.0-75.0[facility] HospitalNo Panel Informationon 70-93-3029Dwyctacehui # (Auto)0.1 10 3/uL0.0-0.7FSelect Medical Cleveland Clinic Rehabilitation Hospital, Edwin ShawImmature Granulocyte # (Auto)0.02 10 3/uL0.00-0.03[facility] HospitalPlatelet mean volume Auto (Bld) [Entitic vol]on 56-61-5451Rbbkzxea mean volume (Bld) [Entitic vol]Platelet mean volume [Entitic volume] in Blood by Automated count9.5-13.5FSelect Medical Cleveland Clinic Rehabilitation Hospital, Edwin ShawPlatelets Auto (Bld) [#/Vol]on 56-31-5146Efmtkpzwd (Bld) [#/Vol]Platelets [#/volume] in Blood by Automated -725UwmxhdzjhWyandot Memorial HospitalRBC Auto (Bld) [#/Vol]on 44-70-8906FQA (Bld) [#/Vol]Erythrocytes [#/volume] in Blood by Automated count 4.20-5.40[facility] HospitalINR in Platelet poor plasma by Coagulation assayOrdered By: Michael Dunaway on 16-13-5274RQJ Coag (PPP) [Relative time]1.3 {INR}NormalWyandot Memorial HospitalComment on above:INR Therapeutic Range A) Pre- [...] heart valves: 3 - 4.5 PERFORMED BY: [facility] [address] [place] [address] PATHOLOGIST MAIL CLERK HERMELINDO BLUM M.D.Performed By: #### PT #### [facility] [address] [place] [address] USAProthrombin time (PT)Ordered By: Michael Dunaway on 08-10-2024 PT Coag (PPP) [Time]15.1 sHigh9.0-12.9[facility] HospitalComment on above:A hematocrit value greater than 55% may lead to inaccurate results in coagulation testing. Patientshaving hematocrit values >55% require a special collection tube for coagulation studies. Please contact the laboratory at [phone] for redraw instructions.Result Comment: A hematocrit value greater than 55% may lead to inaccurate results in coagulation testing. Patients having hematocrit values >55% require a special collection tube for coagulation studies. Please contact the laboratory at [phone] for redraw instructions.Performed By: #### PT #### [address] [address] USAINR in Platelet poor plasma by Coagulation assayOrdered By: Michael Dunaway on 62-55-2821PIT Coag (PPP) [Relative time]1.7 {INR}Normal [facility] HospitalComment on above:INR Therapeutic Range A) Pre- [...] heart valves: 3 - 4.5 PERFORMED BY: [address] [address] PATHOLOGIST MAIL CLERK HERMELINDO BLUM M.D.Performed By: #### PT #### [address] [address] USAProthrombin time (PT)Ordered By: Michael Dunaway on 08-09-2024 PT Coag (PPP) [Time]19.0 sHigh9.0-12.9[facility] HospitalComment on above:A hematocrit value greater than 55% may lead to inaccurate results in coagulation testing. Patientshaving hematocrit values >55% require a special collection tube for coagulation studies. Please contact the laboratory at [phone] for redraw instructions.Result Comment: A hematocrit value greater than 55% may lead to inaccurate results in coagulation testing. Patients having hematocrit values >55% require a special collection tube for coagulation studies. Please contact the laboratory at [phone] for redraw instructions.Performed By: #### PT #### [address] [address] USAMR lumbar spine wo conon 52-70-3624JS lumbar spine wo con [facility] [place] [address] [place] [address] MRI Report Signed Patient: Sandra Tavarez MR#: [id number] 7 : 1940 Acct:[id number] Age/Sex: 83 / F ADM Date: 06/15/24 Loc: Room: Type: [facility] Attending Dr: Michael Dunaway MD Copies [...] Tex Diaz M.D.06/15/2024 8:35 PM Dictation Location: [place] [address] Transcribed By: [facility] 06/15/242034 Dictated By: Tex Diaz II, MD 06/15/242025 Signed By: 06/15/242034NoCentral Harnett Hospital Physician GroupINR in Platelet poor plasma by Coagulation assayon 80-02-6343FRB Coag (PPP) [Relative time]1.36 {INR}[facility] HospitalComment on above:DESIRED INR:2.0-3.0 CONDITIONS NOT LISTED BELOW2.5-3.5 FOR PROSTHETIC HEART VALVE REPLACEMENT2.5-3.5 RECURRENT THROMBOSISProthrombin time (PT)on 13-90-2613AJ Coag (PPP) [Time]14.0 sHigh 9.0-11.6FSelect Medical Cleveland Clinic Rehabilitation Hospital, Edwin ShawXR pelvis 1-2Von 54-54-4818DK pelvis 1-2VSELECT [facility]ICAL [facility] [place] [address] XRay Report Signed Patient: Sandra Tavarez MR#: [id number] 7 : 1940 Acct:[id number] Age/Sex: 83 / F ADM Date: 05/07/24 Loc: XD Room: Type: PRE CLI Attending Dr: Michael Dunaway MD Copies to: Michael Dunaway MD Ordering Provider: Michael Dunaway MD Date of Service: 05/09/24 XR/XR pelvis 1-2V: M70.70 - Other bursitis of hip, unspecified hip ([id number]) XR/XR lumbar spine AP/LAT/FLX/EXT: M47.817 - Spondylosis without myelopathy or radiculopathy... ([id number]) XR/XR sacrum coccyx min 2V: M47.818 - [...] Orozco Jr., D.OKen05/09/2024 3:59 PM Dictation Location: [place] [address] Transcribed By: [facility] 05/09/24 1559 Dictated By: Jaspreet Orozco Jr, DO 05/09/24 1556 Signed By: 05/09/24 1559[facility] Physician GroupINR in Platelet poor plasma by Coagulation assayOrdered By: Michael Dunaway on 52-94-1957OSJ Coag (PPP) [Relative time]2.0 {INR}[facility] HospitalComment on above:INR Therapeutic Range A) Pre- [...] heart valves: 3 - 4.5 PERFORMED BY: [facility] [address] [place] [address] PATHOLOGIST MAIL CLERK HERMELINDO BLUM M.D.Performed By: #### PT #### [facility] [address] [place] [address] USAProthrombin time (PT)Ordered By: Michael Dunaway on 05-07-2024 PT Coag (PPP) [Time]22.3 sHigh9.0-12.9[facility] HospitalComment on above:A hematocrit value greater than 55% may lead to inaccurate results in coagulation testing. Patientshaving hematocrit values >55% require a special collection tube for coagulation studies. Please contact the laboratory at [phone] for redraw instructions.Result Comment: A hematocrit value greater than 55% may lead to inaccurate results in coagulation testing. Patients having hematocrit values >55% require a special collection tube for coagulation studies. Please contact the laboratory at [phone] for redraw instructions.Performed By: #### PT #### [facility] [address] [place] [address] USABasophils Auto (Bld) [#/Vol]on 40-05-3426Fqdqwqenn (Bld) [#/Vol]0.0 10 3/uL0.0-0.1FSelect Medical Cleveland Clinic Rehabilitation Hospital, Edwin ShawBasophils/100 WBC Auto (Bld)on 35-75-4983Dexkqetwm/100 WBC (Bld)0.7 %0.2-2.0[facility] HospitalCholesterol in LDL Calc [Mass/Vol]on 95-36-6841Lcbodqmvrjz in LDL [Mass/Vol]43.0 mg/dLWyandot Memorial HospitalComment on above:<100 mg/dl NGIBFRN568-938 mg/dl NEAR OR ABOVE JMWUQFJ989-165 mg/dl BORDERLINE SYZF003-769 mg/dl HIGH>190 mg/dl VERY HIGHCholesterol in VLDL Calc [Mass/Vol]on 04-30-2024 Cholesterol in VLDL [Mass/Vol]10.6 mg/dLWyandot Memorial Hospital Eosinophils/100 WBC Auto (Bld)on 52-49-8945Maabokyqbik/100 WBC (Bld)1.9 %0.9-7.0 [facility] HospitalErythrocyte distribution width Auto (RBC) [Ratio]on 52-37-6124Iooxvawzhbz distribution width (RBC) [Ratio]13.6 %11.0-15.0 [facility] HospitalEstimated glomerular filtration rate (GFR) non- Americanon 68-18-3800LNZ/1.73 sq M.predicted among non-blacks MDRD (S/P/Bld) [Vol rate/Area]mL/min/{1.73_m2}>=60[facility] Globulin Calc (S) [Mass/Vol]on 75-63-0693Xtfghwkh (S) [Mass/Vol]3.4 g/dL [facility] HospitalGlucose mean value [Mass/volume] in Blood Estimated from glycated hemoglobinon 91-98-5916Jdruawj glucose Estimated from glycated hemoglobin (Bld) [Mass/Vol]137 mg/dLWyandot Memorial Hospital Hematocrit Auto (Bld) [Volume fraction]on 99-62-9495Kudaoesixx (Bld) [Volume fraction]39.8 %36.0-48.0[facility] HospitalHemoglobin [Mass/volume] in Bloodon 12-53-2890Cktvrfqwgf (Bld) [Mass/Vol]13.0 g/dL12.0-16.0 [facility] HospitalLaboratory - Chemistry and Chemistry - challengeon 88-18-9535Jbtztlr [Mass/Vol]3.5 g/dL3.4-5.0[facility] HospitalALP [Catalytic activity/Vol]89 U/N64-581GmfsgwgwoWyandot Memorial HospitalALT [Catalytic activity/Vol]25 U/F22-78NojlmmlkzWyandot Memorial Hospital AST [Catalytic activity/Vol]21 U/E14-98XoqqcdzfgWyandot Memorial Hospital Bilirubin [Mass/Vol]1.1 mg/dLHigh0.2-1.0[facility] HospitalCalcium [Mass/Vol]9.3 mg/dL8.5-10.1FSelect Medical Cleveland Clinic Rehabilitation Hospital, Edwin ShawChloride [Moles/Vol]105 mmol/D50-063TzpbqesalWyandot Memorial HospitalCholesterol [Mass/Vol]123 mg/dL<=200[facility] HospitalCholesterol in HDL [Mass/Vol]70 mg/uGYttc90-27HrmatyqmyWyandot Memorial HospitalComment on above:> or =60 mg/dl - LOW CARDIOVASCULAR RISK<40 mg/dl - HIGH CARDIOVASCULAR RISKCO2 [Moles/Vol]26.1 mmol/L21.0-32.0[facility] HospitalCreatinine [Mass/Vol]0.71 mg/dL0.55-1.02[facility] HospitalGFR/1.73 sq M.predicted MDRD (S/P/Bld) [Vol rate/Area]mL/min/{1.73_m2}>=60[facility] HospitalGlucose [Mass/Vol]96 mg/uE21-340QmpavzcfuWyandot Memorial Hospital Potassium [Moles/Vol]4.0 mmol/L3.5-5.1FSelect Medical Cleveland Clinic Rehabilitation Hospital, Edwin ShawProtein [Mass/Vol]6.9 g/dL6.4-8.2FOhioHealth Southeastern Medical Centerodium [Moles/Vol]141 mmol/T368-300WhklkttodWyandot Memorial HospitalTriglyceride [Mass/Vol]53 mg/dL <=150W[facility] HospitalTSH Qn0.705 m[IU]/L0.358-3.740[facility] HospitalUrea nitrogen [Mass/Vol]16.0 mg/dL7.0-18.0[facility] HospitalUrea nitrogen/Creatinine [Mass ratio]22.5 mg/mgWyandot Memorial HospitalLaboratory - Hematology and Cell countson 45-51-4670BoF9y (Bld) [Mass fraction]6.4 %High4.5-6.2FSelect Medical Cleveland Clinic Rehabilitation Hospital, Edwin ShawComment on above:ADA RECOMMENDED LIMIT 4.0 - 6.0ADA THERAPEUTIC TARGET < 7.0ACTION SUGGESTED> 7.0Immature granulocytes/100 WBC (Bld)0.4 %0.0-0.5FSelect Medical Cleveland Clinic Rehabilitation Hospital, Edwin ShawLeukocytes [#/volume] corrected for nucleated erythrocytes in Blood by Automated counon 57-32-5778LPF corrected for nucl RBC Auto (Bld) [#/Vol]5.3 10 3/uL4.0-11.0[facility] HospitalLymphocytes Auto (Bld) [#/Vol]on 48-94-4644Ryirllswfrx (Bld) [#/Vol]1.0 10 3/uLLow1.2-3.8 [facility] HospitalLymphocytes/100 WBC Auto (Bld)on 04-30-2024 Lymphocytes/100 WBC (Bld)17.8 %Low20.5-60.0[facility] Surgical HospitalH Auto (RBC) [Entitic mass]on 13-31-4239WHR (RBC) [Entitic mass]30.1 pg26.7-34.0 [facility] HospitalHC Auto (RBC) [Mass/Vol]on 01-58-6348WRZO (RBC) [Mass/Vol]32.7 g/dL29.9-35.2FSelect Medical Cleveland Clinic Rehabilitation Hospital, Edwin ShawMCV Auto (RBC) [Entitic vol]on 45-95-7139GZI (RBC) [Entitic vol]92.1 fL81.0-99.0[facility] HospitalMonocytes Auto (Bld) [#/Vol]on 01-02-6695Kiwayoyzd (Bld) [#/Vol]0.6 10 3/uL0.3-0.8[facility] HospitalMonocytes/100 WBC Auto (Bld)on 32-24-8502Ecmhxswmx/100 WBC (Bld)10.3 %1.7-12.0[facility] HospitalNeutrophils Auto (Bld) [#/Vol]on 35-54-6670Uyqhlzxaqnm (Bld) [#/Vol]3.7 10 3/uL1.4-6.5FSelect Medical Cleveland Clinic Rehabilitation Hospital, Edwin ShawNeutrophils/100 WBC Auto (Bld)on 64-77-0126Dadqvseyary/100 WBC (Bld)68.9 %43.0-75.0[facility] HospitalNo Panel Informationon 46-10-2227Uhbybxgybcf # (Auto)0.1 10 3/uL0.0-0.7FSelect Medical Cleveland Clinic Rehabilitation Hospital, Edwin ShawImmature Granulocyte # (Auto)0.02 10 3/uL0.00-0.03[facility] HospitalPlatelet mean volume Auto (Bld) [Entitic vol]on 36-27-6698Eqzrbdjr mean volume (Bld) [Entitic vol]10.5 fL 9.5-13.5FSelect Medical Cleveland Clinic Rehabilitation Hospital, Edwin ShawPlatelets Auto (Bld) [#/Vol]on 14-17-1457Atqprxjyb (Bld) [#/Vol]188 10 3/oL176-625FjzfgesaiWyandot Memorial HospitalRBC Auto (Bld) [#/Vol]on 00-85-4122LDF (Bld) [#/Vol]4.32 10 6/uL4.20-5.40 [facility] [facility] Hospitalerum or plasma albumin/globulin mass ratioon 15-61-2776Wogveum/Globulin [Mass ratio]1.0 {ratio}[facility]. [facility] Hospitalerum or plasma anion gap determinationon 06-92-1673Stxcm gap [Moles/Vol] 13.9 mmol/LFOhioHealth Southeastern Medical Centererum or plasma total cholesterol/high density lipoprotein (HDL) cholesterol mass stephane 04-30-2024 Cholesterol.total/Cholesterol in HDL [Mass ratio]1.8 {ratio}[facility] HospitalComment on above:3.3 - 4.4 LOW RISK4.4 - 7.1 AVERAGE RISK7.1 - 11.0 MODERATE RISK>11.0 HIGH RISKBacteria identified Aer cx Nom (Unsp spec) Ordered By: Juancarlos Campbell on 38-77-3419Cjuqujgauzd Wound CulturePseudomonas aeruginosaSt. Charles Hospitaluperficial Wound Cultureon 99-01-3836Rwoyuynvkjy Wound CultureLT POSTERIOR ANKLE AND LEFT LEG [...] RESISTANT TO ALL B-LACTAM DRUGS. PERFORMED BY: [place] [address] PATHOLOGIST MAIL CLERK HERMELINDO BLUM M.D.[facility] Physician GroupComment on above:Performed By: #### CUSUP #### [place] [id number] USAMG MAMM SCREEN 3D KRISTOFER CADon 81-12-2165MD MAMM SCREEN 3D KRISTOFER CADPatient: SANDRA TAVAREZ Exam Date: 04/07/2023 : 1940 Gender:F Ordering : DR ROBERT VAIL D.O. Admission #: [id number] Family : Order #: [id number] CLICK HERE TO VIEW EXAM RADIOLOGY REPORT [...] leukemia cancer at age 43. LOCATION: [facility] BREAST COMPOSITION: Scattered areas fibroglandular [...] by: Nida Alvarez M.D. on 04/07/2023 at 14:36NormalThTogus VA Medical Center AUTO DIFFon 62-49-6118KMUY #0.1 103/ulNormal0.0-0.1The [facility]itt[facility] Medical CenterComment on above:Performed By: #### CBC ####[facility] [address] [place], [place] [address]Dr.Gaurav ChangBasophils/100 WBC (Bld)0.9 %Normal0.2-2.0The [facility] Rittman Medical CenterComment on above:Performed By: #### CBC ####[facility] Sftvoheugr[address] [place], [place] [address]Dr.Yilan ChangEO #0.1 103/ulNormal0.0-0.7The [facility]itt[facility] Medical CenterCommunson healthcare [facility] on above:Performed By: #### CBC ####[facility] [facility] X[address] [place], [place] [address]Dr.Gaurav ChangEosinophils/100 WBC (Bld)1.2 %Normal 0.9-7.0The [facility] CenterComment on above:Performed By: #### CBC ####[facility] Ubtdh[address] [place], [place] [address]Dr.Gaurav Louis Erythrocyte distribution width (RBC) [Ratio]13.2 %Ebtbeo03.0-15.0The [facility] CenterComment on above:Performed By: #### CBC ####[facility] Ylwbxioxgs[address] [place], [place] [address]Dr.Gaurav ChangHematocrit (Bld) [Volume fraction]44.1 %Euannp24.0-48.0The [facility] CenterComment on above:Performed By: #### CBC ####[facility] [address]qam[address]ae[address] [place], [place] [address]Dr.Gaurav ChangHemoglobin (Bld) [Mass/Vol]14.7 g/dL Dybyez44.0-16.0The [facility] CenterComment on above:Performed By: #### CBC ####[facility] [address] [id number]. Gaurav LouisIG #0.02 10e3/ulNormal0.00-0.03The [facility] CenterComment on above: Performed By: #### CBC ####[facility] [address] [address]Dr.Gaurav LouisIG %0.4 %Normal0.0-0.5The [facility] CenterComment on above:Performed By: #### CBC ####[facility] [address] [address]Dr.Gaurav LouisLYMPH #0.9 103/ulCritically low1.2-3.8The [facility] CenterComment on above:Performed By: #### CBC ####[facility] [address] [address]Dr.Gaurav LouisLymphocytes/100 WBC (Bld)16.5 %Critically low20.5-60.0The [facility] CenterComment on above:Performed By: #### CBC ####[facility] [address] [address]Dr.Gaurav LouisMANUAL DIFF REQ NONormalThe [facility] CenterComment on above:Performed By: #### CBC ####[facility] [address] [address]Dr. Gaur[facility]FR[facility] ([facility]BC) [Entitic mass]30.7 ypOuoplg65.7-34.0The [facility] Comment on above:Performed By: #### CBC ####[facility] Ihz[address]he[address] [place], [place] [address]Dr.Gaurav LouisHC (RBC) [Mass/Vol]33.3 g/dL Wyojsq60.9-35.2The [facility] CenterComment on above:Performed By: #### CBC ####[facility] Fmattxjxnx[address] [place], [place] [address]Dr. Gaurav LouisV (RBC) [Entitic vol]92.1 zLYukpxx09.0-99.0The [facility] Comment on above:Performed By: #### CBC ####[facility] [address] [address]Dr.Gaurav LouisMONO #0.5 103/ulNormal0.3-0.8 The [facility] on above:Performed By: #### CBC ####[facility] Oqnmiobjby[address] [place], [place] [address]Dr.Gaurav Louis Monocytes/100 WBC (Bld)8.0 %Normal1.7-12.0The [facility] CenterComment on above: Performed By: #### CBC ####[facility] Oiogauqigq[address] [place], [place] [address]Dr.Violettelan HeribertoNEUT #4.1 103/ulNormal1.4-6.5The [facility] CenterComment on above:Performed By: #### CBC ####[facility] Sawlxjmopa[address] [place], [place] [address]Dr.Gaurav LouisNeutrophils/100 WBC (Bld)73.0 %Xfnmit50.0-75.0The [facility] CenterComment on above:Performed By: #### CBC ####[facility] Hbnbbwftgl[address] [place], [place] [address]Dr.Gaurav LouisPlatelet mean volume (Bld) [Entitic vol]10.0 fLNormal9.5-13.5 The [facility] CenterCommunson healthcare [facility] on above:Performed By: #### CBC ####[facility] Iytamcifxa[address] [place], [place] [address]Dr.Violettelan NrlizUFQ490 103/doNjmgfg269-945Zvk [facility] CenterComment on above:Performed By: #### CBC ####[facility] Zcrcnqbjfh[address] [place], [place] [address]Dr. Violettelan ChangRBC4.79 106/ulNormal4.20-5.40The [facility] on above: Performed By: #### CBC ####[facility] Kfmhctlntz[address] [place], [place] [address]Dr.Violettelan ChangWBC5.6 103/ulNormal4.0-11.0The [facility] CenterComment on above:Performed By: #### CBC ####[facility] [address] [address]Dr.Yilan LouisGLYCOHEMOGLOBIN A1Con [id number] RECOMMENDATIONSEE [facility] on above:Result Comment: ADA RECOMMENDED LIMIT 4.0 - 6.0 ADA THERAPEUTIC TARGET < 7.0 ACTION SUGGESTED > 7.0Performed By: #### A1C #### [facility] [address] [address] [address] Gaurav LouisGlucose [Mass/Vol]148 mg/dLNoAshtabula General HospitalComment on above:Performed By: #### A1C #### [facility] [address] [address] [address] Gaurav LouisHbA1c (Bld) [Mass fraction]6.8 %Critically high4.5-6.2The [facility] CenterComment on above:Performed By: #### A1C #### [facility] [address] [address] [address] Gaurav LouisLIPID PROFILEon [id number]-HDL RATIO NORMSEE [facility] HamiltonCommun[facility] on above:Result Comment: 3.3 - 4.4 LOW RISK 4.4 - 7.1 AVERAGE RISK 7.1 - 11.0 MODERATE RISK >11.0 HIGH RISKPerformed By: #### TSH, LIPID, BMP #### [facility] [address] [address] [address] Gaurav LoiusCholesterol [Mass/Vol]137 mg/dLNormal<=200The [facility] Comment on above:Performed By: #### TSH, LIPID, BMP #### [facility] [address] [address] [address] Gaurav LouisCholesterol in HDL [Mass/Vol]63 mg/dLCritically xyet23-96Ofu [facility] on above:Performed By: #### TSH, LIPID, BMP #### [facility] [address] [address] [address] Gaurav Pittmanesterol in LDL [Mass/Vol]57.8 mg/dLNoAshtabula General HospitalComment on above:Performed By: #### TSH, LIPID, BMP #### [facility] [address] [address] [address] Gaurav LouisCholesterol.total/Cholesterol in HDL [Mass ratio]2.2 {ratio} NormalThe [facility] CenterComment on above:Performed By: #### TSH, LIPID, BMP #### [facility] [address] [address] [address] Gaurav Amador NORMAL> or = 60 mg/dl - LOW CARDIOVASCULAR RISK <40 mg/dl - HIGH CARDIOVASCULAR RISKNoAshtabula General HospitalComment on above:Performed By: #### TSH, LIPID, BMP #### [facility] [address] [address] [address] Gaurav LouisLDL CALC NORMALSEE BELOWAshtabula General HospitalComment on above:Result Comment: <100 mg/dl OPTIMAL 100 - 129 mg/dl NEAR OR ABOVE OPTIMAL 130 - 159 mg/dl BORDERLINE HIGH 160 - 189 mg/dl HIGH >190 mg/dl VERY HIGH Performed By: #### TSH, LIPID, BMP #### [facility] [address] [address] [address] Gaurav LouisTriglyceride [Mass/Vol]81 mg/dLNormal<=150The [facility] Comment on above:Performed By: #### TSH, LIPID, BMP #### [facility] [address] [address] [address] Gaurav LouisVLDL CALC16.2 mg/dLNormUniversity Hospitals Ahuja Medical CenterComment on above: Performed By: #### TSH, LIPID, BMP #### [facility] [address] [address] [address] Gaurav LouisMICROALBUMIN, RAND URon [id number] mg/LNormal<=30.0The [facility] CenterComment on above:Performed By: #### MALBR #### [facility] [address] [address] [address] Gaurav LouisPROF CHEM 8 (BAS METB)on [id number] gap [Moles/Vol]13.4 mmol/LNormalThe [facility] CenterComment on above:Performed By: #### TSH, LIPID, BMP #### [facility] [address] [place] [address] Dr. Gaurav LouisCalcium [Mass/Vol]9.7 mg/dLNormal8.5-10.1[facility] Comment on above:Performed By: #### TSH, LIPID, BMP #### [facility] [address] [place] [address] Dr. Gaurav LouisChloride [Moles/Vol]103 mmol/QNfppic66-169Jkv [facility] Comment on above:Performed By: #### TSH, LIPID, BMP #### [facility] [address] [place] [address] Dr. Gaurav LouisCO2 [Moles/Vol]28.2 mmol/IRyiscg29.0-32.0The [facility] Comment on above:Performed By: #### TSH, LIPID, BMP #### [facility] [address] [place] [address] Dr. Gaurav LouisCreatinine [Mass/Vol]0.94 mg/dLNormal0.55-1.02The [facility] CenterComment on above:Performed By: #### TSH, LIPID, BMP #### [facility] [address] [place] [address] Dr. Nolasco ChangEGFR-AF CONGOLESE>60Normal>=60The [facility] CenterComment on above:Performed By: #### TSH, LIPID, BMP #### [facility] [address] [place] [address] Dr. Gaurav OntiverosGFR-NON AF MAYRGWGE02 mL/min/1.02f8Wpkmtjdaii low>=60The [facility] CenterComment on above:Performed By: #### TSH, LIPID, BMP #### [facility] [address] [place] [address] Dr. Gaurav LouisGlucose [Mass/Vol]155 mg/dLCritically uxvy38-976Qim [facility] CenterComment on above:Performed By: #### TSH, LIPID, BMP #### [facility] [address] [address] [address] Gaurav LouisPotassium [Moles/Vol]3.6 mmol/LNormal3.5-5.1The [facility] Comment on above:Performed By: #### TSH, LIPID, BMP #### [facility] [address] [address] [address] Gaurav LouisSodium [Moles/Vol]141 mmol/NPsqxrz097-199Ijd [facility] Comment on above:Performed By: #### TSH, LIPID, BMP #### [facility] [address] [address] [address] Gaurav LouisUrea nitrogen [Mass/Vol]19.0 mg/dLCritically high7.0-18.0The [facility] CenterComment on above:Performed By: #### TSH, LIPID, BMP #### [facility] [address] [place] [address] Dr. Gaurav Taylor nitrogen/Creatinine [Mass ratio]20.2 mg/mgNormalThe [facility] CenterComment on above:Performed By: #### TSH, LIPID, BMP #### [facility] [address] [place] [address] Dr. Gaurav San [id number] uIU/mLNormal0.358-3.740The [facility] CenterComment on above:Performed By: #### TSH, LIPID, BMP #### [facility] [address] [place] [address] Dr. Gaurav Brokos-CoV-2 (COVID-19) RNA LANDEN+probe Ql (Resp)on 09-11-2022 SARS-CoV-2 (COVID-19) RNA LANDEN+probe Ql (Unsp spec)PositiveNort View3 Other cbc AUTO DIFFon [id number] #0.1 103/ulNormal 0.0-0.1The [facility] CenterComment on above:Performed By: #### CBC #### [facility] [address] [place] [address] Dr. Yilan ChangBasophils/100 WBC (Bld)0.5 %Normal0.2-2.0[facility] Comment on above:Performed By: #### CBC #### [facility] [address] [place] [address] Dr. Gaurav Pal #0.1 103/ulNormal0.0-0.7The [facility] CenterComment on above: Performed By: #### CBC #### [facility] [address] [place] [address] Dr. Gaurav Ontiverososinophils/100 WBC (Bld)0.7 %Critically low0.9-7.0The [facility] CenterComment on above:Performed By: #### CBC #### [facility] [address] [place] [address] Dr. Gaurav Ontiverosrythrocyte distribution width (RBC) [Ratio]22.5 %Critically high 11.0-15.0The [facility] CenterComment on above:Result Comment: 2+ anisocytosis Performed By: #### CBC #### [facility] [address] [place] [address] Dr. Gaurav LouisHematocrit (Bld) [Volume fraction]41.4 %Hwcujx87.0-48.0The [facility] CenterComment on above:Performed By: #### CBC #### [facility] [address] [place] [address] Dr. Gaurav LouisHemoglobin (Bld) [Mass/Vol]13.4 g/qAFkybmy78.0-16.0The [facility] CenterComment on above:Performed By: #### CBC #### [facility] [address] [place] [address] Dr. Gaurav Pineda #0.04 10e3/ulCritically high0.00-0.03The [facility] Comment on above:Performed By: #### CBC #### [facility] [address] [place] [address] Dr. Gaurav Pineda %0.4 %Normal0.0-0.5The [facility] CenterComment on above: Performed By: #### CBC #### [facility] [address] [address] [address] Gaurav Sneed #1.1 103/ulCritically low1.2-3.8The [facility] Comment on above:Performed By: #### CBC #### [facility] [address] [address] [address] Gaurav Busbymphocytes/100 WBC (Bld)10.2 %Critically low20.5-60.0The [facility] CenterComment on above:Performed By: #### CBC #### [facility] [address] [address] [address] Gaurav Tolentino DIFF REQNONormalThe [facility] CenterComment on above: Performed By: #### CBC #### [facility] [address] [place] [address] Dr. Gaurav Bowden (RBC) [Entitic mass]28.3 fiObalhu18.7-34.0The [facility] CenterComment on above:Performed By: #### CBC #### [facility] [address] [place] [address] Dr. Gaurav Bowden (RBC) [Mass/Vol]32.4 g/uDSzfnhu31.9-35.2The [facility] CenterComment on above:Performed By: #### CBC #### [facility] [address] [place] [address] Dr. Gaurav Bowden (RBC) [Entitic vol]87.5 aLGcxozr83.0-99.0The [facility] CenterComment on above:Performed By: #### CBC #### [facility] [address] [place] [address] Dr. Gaurav Jennings #0.8 103/ulNormal0.3-0.8The [facility] CenterComment on above:Performed By: #### CBC #### [facility] [address] [place] [address] Dr. Gaurav Ashocytes/100 WBC (Bld)7.3 %Normal1.7-12.0[facility] Comment on above:Performed By: #### CBC #### [facility] [address] [address] [address] Gaurav Bucio #8.4 103/ulCritically high1.4-6.5The [facility] Comment on above:Performed By: #### CBC #### [facility] [address] [place] [address] Dr. Gaurav Yusufutrophils/100 WBC (Bld)80.9 %Critically high43.0-75.0The [facility] CenterComment on above:Performed By: #### CBC #### [facility] [address] [place] [address] Dr. Gaurav LouisPlatelet mean volume (Bld) [Entitic vol]10.0 fLNormal9.5-13.5The [facility] CenterComment on above:Performed By: #### CBC #### [facility] [address] [place] [address] Dr. Gaurav LouisPLT178 103/zmTbijts644-652Kud [facility] CenterComment on above: Performed By: #### CBC #### [facility] [address] [place] [address] Dr. Gaurav LouisRBC4.73 106/ulNormal4.20-5.40The [facility] CenterComment on above:Performed By: #### CBC #### [facility] [address] [place] [address] Dr. Gaurav LouisWBC10.3 103/ulNormal4.0-11.0The [facility] CenterComment on above:Performed By: #### CBC #### [facility] [address] [place] [address] Dr. Gaurav LouisUS SINGLE QUAD LT LOWERon [id number] SINGLE QUAD LT LOWEREXAM: US SINGLE QUAD [...] Electronically authenticated by: NIDA ALVAREZ Date: 2022-04-30 18:10NormCoshocton [facility] AUTO DIFFon [id number] #0.0 103/ulNormal0.0-0.1The [facility] CenterComment on above:Performed By: #### CBC #### [facility] [address] [place] [address] Dr. Gaurav LouisBasophils/100 WBC (Bld)0.6 %Normal0.2-2.0The [facility] Comment on above:Performed By: #### CBC #### [facility] [address] [place] [address] Dr. Gaurav Pal #0.1 103/ulNormal0.0-0.7The [facility] CenterComment on above: Performed By: #### CBC #### [facility] [address] [place] [address] Dr. Gaurav Ontiverososinophils/100 WBC (Bld)1.7 %Normal0.9-7.0The [facility] Comment on above:Performed By: #### CBC #### [facility] [address] [place] [address] Dr. Gaurav Ontiverosrythrocyte distribution width (RBC) [Ratio]21.1 %Critically high 11.0-15.0The [facility] CenterComment on above:Performed By: #### CBC #### [facility] [address] [place] [address] Dr. Gaurav LouisHematocrit (Bld) [Volume fraction]33.6 %Critically low36.0-48.0 The [facility] CenterComment on above:Performed By: #### CBC #### [facility] [address] [place] [address] Dr. Gaurav LouisHemoglobin (Bld) [Mass/Vol]10.0 g/dLCritically low12.0-16.0The [facility] CenterComment on above:Performed By: #### CBC #### [facility] [address] [place] [address] Dr. Gaurav Pineda #0.02 10e3/ulNormal0.00-0.03The [facility] CenterComment on above:Performed By: #### CBC #### [facility] [address] [place] [address] Dr. Gaurav Pineda %0.4 %Normal0.0-0.5The [facility] CenterComment on above: Performed By: #### CBC #### [facility] [address] [place] [address] Dr. Gaurav Sneed #1.0 103/ulCritically low1.2-3.8The [facility] Comment on above:Performed By: #### CBC #### [facility] [address] [place] [address] Dr. Gaurav Goddardhocytes/100 WBC (Bld)18.3 %Critically low20.5-60.0The [facility] CenterComment on above:Performed By: #### CBC #### [facility] [address] [place] [address] Dr. Gaurav Tolentino DIFF REQNONormalThe [facility] CenterComment on above: Performed By: #### CBC #### [facility] [address] [place] [address] Dr. Gaurav Bruce (RBC) [Entitic mass]22.8 pgCritically low26.7-34.0The [facility] CenterComment on above:Performed By: #### CBC #### [facility] [address] [place] [address] Dr. Gaurav Bowden (RBC) [Mass/Vol]29.8 g/dLCritically low29.9-35.2The [facility] CenterComment on above:Performed By: #### CBC #### [facility] [address] [place] [address] Dr. Gaurav Bowden (RBC) [Entitic vol]76.7 fLCritically low81.0-99.0The [facility] CenterComment on above:Performed By: #### CBC #### [facility] [address] [place] [address] Dr. Gaurav Jennings #0.5 103/ulNormal0.3-0.8The [facility] CenterComment on above:Performed By: #### CBC #### [facility] [address] [place] [address] Dr. Gaurav Ashocytes/100 WBC (Bld)8.8 %Normal1.7-12.0The [facility] Comment on above:Performed By: #### CBC #### [facility] [address] [place] [address] Dr. Gaurav Bucio #3.8 103/ulNormal1.4-6.5The [facility] CenterComment on above:Performed By: #### CBC #### [facility] [address] [place] [address] Dr. Gaurav Yusufutrophils/100 WBC (Bld)70.2 %Qjfihd05.0-75.0The [facility] CenterComment on above:Performed By: #### CBC #### [facility] [address] [place] [address] Dr. Gaurav Goldberg mean volume (Bld) [Entitic vol]9.4 fLCritically low 9.5-13.5The [facility] CenterComment on above:Performed By: #### CBC #### [facility] Laboratory [address] [place] [address] Dr. Gaurav LouisPLT226 103/kiMqquue578-376Cfk [facility] CenterComment on above: Performed By: #### CBC #### [facility] Laboratory [address] [place] [address] Dr. Gaurav LouisRBC4.38 106/ulNormal4.20-5.40The [facility] CenterComment on above:Performed By: #### CBC #### [facility] Laboratory [address] [place] [address] Dr. Gaurav LouisWBC5.4 103/ulNormal4.0-11.0The [facility] CenterComment on above: Performed By: #### CBC #### [facility] [address] [place] [address] Dr. Yilan ChangXR ankle LT min 3V*on [id number] ankle LT min 3V*[facility] Other XR ankle LT min 3V*[facility] Main [place] [facility] View3 Other XR ankle LT min 3V*1111 [facility] View3 Other XR ankle LT min 3V*LASHONDA Beckett [address]Ynnze View3 Other XR ankle LT min 3V*XRay [facility] View3 Other XR ankle LT min 3V*[facility] View3 Other XR ankle LT min 3V*Patient: Sandra Tavarez MR#: [id number] View3 Other XR ankle LT min 3V*[facility] View3 Other XR ankle LT min 3V*: 1940 Acct:[id number] [place] View3 Other XR ankle LT min 3V*Age/Sex: 80 / F ADM Date: 11/07/21 [employer] Other XR ankle LT min 3V*Loc: XDUCLY Room: [facility]: [facility] [employer] Other XR ankle LT min 3V*Attending Dr: Quita ZUNIGA [employer] Other XR ankle LT min 3V*Ordering Provider: OP[facility] View[facility] Other XR ankle LT min 3V*Date of Service: 11/07/21[place] View3 Other XR ankle LT min 3V* XR/XR ankle LT min 3V*: Acute left [place] pain[place] View3 Other XR ankle LT min 3V*Copies to: Quita Simmons, DOWNSTAIRS MAID-C [place] View3 Other XR ankle LT min 3V*XR ankle LT min 3V* 11/07/2021 12:15 [facility] View3 Other XR ankle LT min 3V*SIGNS AND SYMPTOMS: Pain along the left Achilles and lateral aspect of the calcaneus, limited rangeC[place] View3 Other XR ankle LT min 3V*of motionC[place] View3 Other XR ankle LT min 3V*PROTOCOL: Frontal, lateral, and oblique radiographs of the left ankleC[place] View3 Other XR ankle LT min 3V*COMPARISON: [facility] View3 Other XR ankle LT min 3V*FINDINGS:[employer] Other XR ankle LT min 3V*The ankle mortise is preserved. There is cortical irregularity along the inferior margin of [facility] Other XR ankle LT min 3V*lateral malleolus which may represent sequelae of a previous avulsive-type injury. There is soft[place] View3 Other XR ankle LT min 3V*tissue swelling diffusely but greatest along the dorsal soft tissues. There is plantar surfaceC[place] Hill View3 Other XR ankle LT min 3V*calcaneal spurring. Vascular calcifications are present. Degenerative changes are noted in [place] Other XR ankle LT min 3V*midfoot.[employer] Other XR ankle LT min 3V* XR/XR ankle LT min 3V*[employer] Other XR ankle LT min 3V*IMPRESSION:[employer] Other XR ankle LT min 3V*No acute displaced fracture.[employer] Other XR ankle LT min 3V*Diffuse soft tissue swelling greatest posteriorly.[employer] Other XR ankle LT min 3V*There is plantar surface calcaneal spurring.[employer] Other XR ankle LT min 3V*Impression dictated by: Tex Diaz M.D.11/07/2021 12:50 [facility] View[facility] Other XR ankle LT min 3V*Dictation Location: [place] [address] [employer] Other XR ankle LT min 3V*Transcribed By: [facility] 11/07/[address] [facility] [employer] Other XR ankle LT min 3V*Dictated By: Tex Diaz II, MD 11/07/21 1248[place] View3 Other XR ankle LT min 3V*Signed By:[employer] Other XR ankle LT min 3V*11/07/[address] [place], [place] [email or web address] Other MAGQ Preoperative Recordon 60-96-6143JKZB Preoperative RecordMAGR Pre-Op Record Summary Primary Physician: FERNANDO SILVA Finalized Date/Time: 06/04/20 08:46:37 Pt. Name: SANDRA TAVAREZ/Sex: 1940 FEMALE Med Rec #: [id number] Physician: FERNANDO SILVA Financial #: [id number] Pt. Type: I Room/Bed: [facility] Admit/Disch: 05/23/20 09:44:18 - 05/27/20 15:15:00 [...] By: Stacy Pena RN 06/04/20 08:46[facility] Hospital of ColumbusConsent Formson 35-96-0348Cxsdodw [id number]#1.00[facility] HospitalOutside Recordson 18-96-0218Shqtspp Records [id number]#1.00[facility] Outside [id number]#1.00[facility] - TrumbullProvider Orderson 33-34-6285Fpnetarj Orders [id number]#1.00[facility] Telemetry Stripson 62-17-5479Jsavcbwkl Strips [id number]#1.00[facility].Auto Diff 1on 79-29-0508Aajy [place] %13 %High1-[address] [place], [place] [address]Comment on above: Performed By: #### [id number], 65935147, 1448957 #### [facility] (DEFAULT) [address] [place] [address] 34043Rbaq Abs#0.0 z18Nvsprn4.0-0.2MSt. John of God HospitalComment on above:Performed By: #### [id number], 77892666, 1286869 #### [facility] (DEFAULT) [address] [place] [address] 09030Hnzpimvja/100 WBC (Bld)0.3 %Normal0.2-2.0[facility] Hospital Comment on above:Performed By: #### [id number], 13454682, 4700278 #### [facility] (DEFAULT) [address] [place] [address] 52249Nji Abs#0.1 m89Uidipi2.0-0.4[facility]uder HospitalComment on above:Performed By: #### [id number], 05477689, 5123564 #### [facility] (DEFAULT) [address] [place] [address] 39203Robqdzglelb/100 WBC (Bld)1.4 %Normal0.9-4.0Magrohiohealth berger hospital HospitalComment on above:Performed By: #### [id number], 00942914, 6006769 #### [facility] (DEFAULT) [address] [place] [address] 41853Flnrdinthrc (Bld) [#/Vol]1.4 m30Dzowqo3.3-2.9[facility]ruder HospitalComment on above:Performed By: #### [id number], 48196627, 8295383 #### [facility] (DEFAULT) [address] [place] [address] 56867Iozrtcplplb/100 WBC (Bld)16 %Nyyaea57-90Zukmuwng Hospital Comment on above:Performed By: #### [id number], 76026576, 2721657 #### [facility] (DEFAULT) [address] [place] [address] 32442Hbbx Abs#1.1 i11Cudz3.0-0.8Magruder HospitalComment on above:Performed By: #### [id number], 63341297, 2469834 #### [facility] (DEFAULT) [address] [place] [address] 83445Duqn Abs#6.1 y93Nicflc8.5-9.2Magruder HospitalComment on above:Performed By: #### [id number], 54892082, 2462917 #### [facility] (DEFAULT) [address] [place] [address] 01855Tuitusjhpcf/100 WBC (Bld)70 %Tnpgwk94-25Vuhdxoch Hospital Comment on above:Performed By: #### [id number], 24288179, 1345721 #### [facility] (DEFAULT) [address] [place] [address] 25819KFV Standardon 22-78-3799eWOS Non AA>60[facility] Comment on above:Performed By: #### [id number], 43255957, 1020927 #### [facility] (DEFAULT) [address] [place] [address] 79740tLJA AA>60Providence HospitalComment on above:Result Comment: Chronic Kidney disease could be indicated at eGFRs of less than 60 ml/min/1.73m2. Kidney Failure is indicated at less than 15 ml/min/1.73m2 Performed By: #### [id number], 09164456, 7152732 #### [facility] (DEFAULT) [address] [place] [address] 75545Kyckx gap [Moles/Vol]15.0 mmol/LNormal5.0-19.0Providence HospitalComment on above:Performed By: #### [id number], 33433319, 8094389 #### [facility] (DEFAULT) [address] [place] [address] 55953Quxvdtq [Mass/Vol]9.2 mg/dLNormal8.9-10.3MSt. John of God Hospital Comment on above:Performed By: #### [id number], 48761120, 8528023 #### [facility] (DEFAULT) [address] [place] [address] 75938Seslvcpj [Moles/Vol]101 mmol/FPxaijp632-191Tlmlptix HospitalComment on above:Performed By: #### [id number], 16694228, 5845130 #### [facility] (DEFAULT) [address] [place] [address] 87101JK2 [Moles/Vol]26 mmol/ZFlkqre66-44Jyaoevpq Hospital Comment on above:Performed By: #### [id number], 68423493, 0475017 #### [facility] (DEFAULT) [address] [place] [address] 89313Iqanjakrrw [Mass/Vol]0.58 mg/dLLow0.60-1.30[facility] HospitalComment on above:Performed By: #### [id number], 66634726, 4969814 #### [facility] (DEFAULT) [address] [place] [address] 90335Ofkmefw [Mass/Vol]120.0 mg/jBBeic03.0-118.0[facility] HospitalComment on above:Performed By: #### [id number], 04811197, 7328324 #### [facility] (DEFAULT) [address] [place] [address] 68419Rrmzrmixpg [Osmolality]279 mOsm/LMagrohiohealth berger hospital HospitalComment on above:Performed By: #### [id number], 74682826, 6273696 #### [facility] (DEFAULT) [address] [place] [address] 59872Ybiqvyawj [Moles/Vol]3.7 mmol/LNormal3.6-5.1Magrohiohealth berger hospital HospitalComment on above:Performed By: #### [id number], 52579429, 4554535 #### [facility] (DEFAULT) [address] [place] [address] 25056Geotkl [Moles/Vol]138.0 mmol/IYeyxmt544.0-144.0[facility] HospitalComment on above:Performed By: #### [id number], 04269223, 9764566 #### [facility] (DEFAULT) [address] [place] [address] 70748Fbyn nitrogen [Mass/Vol]19 mg/dLNormal8-26[facility] HospitalComment on above:Performed By: #### [id number], 09701694, 9710350 #### [facility] (DEFAULT) [address] [place] [address] 72058Ltyc nitrogen/Creatinine [Mass ratio]33.0 mg/mgHigh 4.6-16.2Magrohiohealth berger hospital HospitalComment on above:Performed By: #### [id number], 00683931, 6562815 #### [facility] (DEFAULT) [address] [place] [address] 95938NGE w/ Auto Diffon 16-14-0209Kusxrwkdxlo distribution width (RBC) [Ratio]18.4 %High11.5-15.0[facility] HospitalComment on above: Performed By: #### [id number], 14257451, 1167681 #### [facility] (DEFAULT) [address] [place] [address] 59311Wpfilvymsv (Bld) [Volume fraction]29.7 %Low33.7-40.4 [facility] HospitalComment on above:Performed By: #### [id number], 85269922, 4967545 #### [facility] (DEFAULT) [address] [place] [address] 45283Axmhyeoowf (Bld) [Mass/Vol]9.0 g/dLLow11.3-15.9[facility] HospitalComment on above:Performed By: #### [id number], 70710956, 7320543 #### [facility] (DEFAULT) [address] [place] [address] 94659Bxv Diff?AutoNormalProvidence Hospital HospitalComment on above: Performed By: #### [id number], 84470574, 2690014 #### [facility] (DEFAULT) [address] [place] [address] 12653UTU (RBC) [Entitic mass]25 ysKqhoyx58-42Rjvfkyyo Hospital Comment on above:Performed By: #### [id number], 99470680, 1077617 #### [facility] (DEFAULT) [address] [place] [address] 76418CLKF (RBC) [Mass/Vol]30 g/sSQianoc30-86Gglucysh Hospital Comment on above:Performed By: #### [id number], 31865336, 7226041 #### [facility] (DEFAULT) [address] [place] [address] 59044BFE (RBC) [Entitic vol]82 mZOsqbpu61-198Yrkqthwd Hospital Comment on above:Performed By: #### [id number], 08320524, 9173043 #### [facility] (DEFAULT) [address] [place] [address] 21712Lbirnfja mean volume (Bld) [Entitic vol]10.7 fLHigh 6.3-10.2Magrohiohealth berger hospital HospitalComment on above:Performed By: #### [id number], 01367158, 9001852 #### [facility] (DEFAULT) [address] [place] [address] 35532Uufpjuebp (Bld) [#/Vol]230 m98Mdbvoo474-622Prtajkgm HospitalComment on above:Performed By: #### [id number], 18062164, 1877646 #### [facility] (DEFAULT) [address] [place] [address] 68793LXG (Bld) [#/Vol]3.60 u71Peh9.70-5.30[facility] Comment on above:Performed By: #### [id number], 24178833, 0774640 #### [facility] (DEFAULT) [address] [place] [address] 18856JJK (Bld) [#/Vol]8.8 u49Rtzrdpja HospitalComment on above: Performed By: #### [id number], 79695427, 3364983 #### [facility] (DEFAULT) [address] [place] [address] 70151Rmtemz Summaryon 07-24-7857Wskwuo SummaryCODING DATE: 05/27/2020 [facility] STATUS: Transfer to Care Home PAYOR: Medicare Grouper: 470 MS-DRG MAJOR HIP AND KNEE JOINT REPLACEMENT OR REATTACHMENT OF LOWER EXTREMITY W/O USP Low Trim 0 High Trim 999 ADMIT [...] other venous thrombosis and embolism 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.01 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 G47.33 Y Obstructive sleep apnea (adult) (pediatric) Z99.89 1 Dependence on other enabling machines and devices G40.909 Y Epilepsy, unspecified, not intractable, without status epilepticus Z79.899 1 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 However, the narrative phrase printed from the coding software may appear abbreviated, or result in slightly different terminology. Revised Coded By: Jaene Mccormick Revised Date Saved: 05/27/2020 06:30 [facility] HospitalEducation Noteon 51-42-8154Uqgcjrhar NoteEducation Materials POST OPERATIVE TOTAL KNEE/HIP DISCHARGE [...] #8 follow up in office with physician program services assistant Octavio Centeno as scheduled #9 [...] the nearest hospital's emergency services department.[facility] ColumbusInpatient Patient Summaryon 57-97-5225Zrlyjdcng [place] [address] Patient Discharge Instructions Name: SANDRA TAVAREZ : 1940 Patient Address: [address] [place] [address] Primary Care Provider: Name: Robert Vail After you are discharged if you find you have any questions, please, call [phone] ext [phone] to speak to a nurse. Discharge Diagnosis: [...] addiction problems; contact the [facility] 20/06 Crisis Hotline -Text 5FQRZ xx [phone]. If you received any narcotics, sedation, or [...] business decisions or sign any legal documents [facility] would like to thank you for allowing us to assist you with your healthcare needs.The following includes patient education materials and information regarding your injury/illness. SANDRA TAVAREZ has been given the following list of follow-up instructions, prescriptions, and patient education materials: Follow-up Instructions With: Address: When: Robert Vail [address] [place] [address] Business (1) With: Address: When: Tom Centeno [address] [place] [address], [facility] [address] [place], [place] [address] Business (1) 06/06/2020 1:00 PM Medications During [...] #8 follow up in office with physician program services assistant Octavio Centeno as scheduled #9 [...] Disease Control and Prevention July 2014[facility] POCT Glucose Levelon 64-71-8285Bkoihlg [Mass/Vol]125 mg/cBPbzs90-354Vjyerdpc HospitalComment on above:Performed By: #### [id number] ####[facility] (DEFAULT)[address] [place] [address] 22324EDmp 16-71-0140VAX Coag (PPP) [Relative time]2.29 {INR}High0.91-1.11[facility] HospitalComment on above: Performed By: #### [id number], 95288837, 3424426 #### [facility] (DEFAULT) [address] [place] [address] 36018ZH Coag (PPP) [Time]22.2 second(s)High9.7-11.8[facility] HospitalComment on above:Performed By: #### [id number], 74239973, 5362352 #### [facility] (DEFAULT) [address] [place] [address] 84732Niikskei Note - Nurseon 93-56-0963Xgkujonk Note - Nurse Dressing change per Dr Moon. RAFIQ hose applied to both lower legs. Daughter here for transfer to the [facility]. Discharged to [facility] per private vehicle with daughter. PT and OT assisted patient into car. [Electronically Signed on: 05/27/2020 18:20 EDT] Mayra Tafoya RN [Verified on: 05/27/2020 18:20 EDT] Lencho Tafoya RNCity HospitalProgress Note-Physicianon 05-27-2020 Progress Note-PhysicianDATE OF ORTHOPEDIC [...] The patient will be going to [facility] today. CONDITION ON DISCHARGE: Stable. Tino Moon DO JOB #: [id number] bk [Electronically Signed on: 05/28/2020 10:10 EDT] TINO MOON DO [Verified on: 05/28/2020 10:10 EDT] MABLETINO Strauss [Transcribed on: 05/27/2020 14:44 EDT] [facility] HospitalProess Note-PhysicianDATE OF POSTOPERATIVE ORTHOPEDIC PROGRESS NOTE: [...] PROGNOSIS: Fair. Tino Moon DO JOB #: [id number] bk [Electronically Signed on: 05/27/2020 12:30 EDT] TINO MOON DO [Verified on: 05/27/2020 12:30 EDT] TINO MOON DO [Transcribed on: 05/27/2020 10:45 EDT] [facility].Auto Diff 1on 20-98-5173Erja [place] %16 %High1-12 [facility] HospitalComment on above:Performed By: #### [id number], 10951522, 7131856 #### [facility] (DEFAULT) [address] [place] [address] 87022Scfh Abs#0.0 r65Qfjytm8.0-0.2Mcity hospital HospitalComment on above:Performed By: #### [id number], 58973975, 5431174 #### [facility] (DEFAULT) [address] [place] [address] 33162Sqlpwznco/100 WBC (Bld)0.2 %Normal0.2-2.0[facility] Hospital Comment on above:Performed By: #### [id number], 86381903, 4467630 #### [facility] (DEFAULT) [address] [place] [address] 51852Vyq Abs#0.0 k18Sqlwdk8.0-0.4[facility] HospitalComment on above:Performed By: #### [id number], 65440861, 7650372 #### [facility] (DEFAULT) [address] [place] [address] 31679Ipstcsqbpti/100 WBC (Bld)0.5 %Low0.9-4.0[facility] Comment on above:Performed By: #### [id number], 62267288, 8478798 #### [facility] (DEFAULT) [address] [place] [address] 73034Ufwmmrvndoj (Bld) [#/Vol]1.2 k41Yom9.3-2.9[facility] HospitalComment on above:Performed By: #### [id number], 47402333, 1867527 #### [facility] (DEFAULT) [address] [place] [address] 28268Iplrmoxambo/100 WBC (Bld)15 %Apuntj71-21Drgiaczy Hospital Comment on above:Performed By: #### [id number], 83433889, 4704347 #### [facility] (DEFAULT) [address] [place] [address] 53682Wooa Abs#1.3 k26Oxtc8.0-0.8[facility] HospitalComment on above:Performed By: #### [id number], 54470352, 3781242 #### [facility] (DEFAULT) [address] [place] [address] 61372Tnit Abs#5.6 w29Wwjfxm5.5-9.2Mcity hospital HospitalComment on above:Performed By: #### [id number], 28322005, 3328751 #### [facility] (DEFAULT) [address] [place] [address] 80435Tdclztqlgjs/100 WBC (Bld)68 %Grrold02-17Xoeaxquj Hospital Comment on above:Performed By: #### [id number], 08367101, 2141723 #### [facility] (DEFAULT) [address] [place] [address] 79308DUM w/ Auto Diffon 63-56-8053Bwwjwzmkguw distribution width (RBC) [Ratio]17.9 %High11.5-15.0[facility] HospitalComment on above: Performed By: #### [id number], 46215043, 3405305 #### [facility] (DEFAULT) [address] [place] [address] 27108Itvqyuwlla (Bld) [Volume fraction]28.5 %Low33.7-40.4 [facility] HospitalComment on above:Performed By: #### [id number], 72272932, 8788785 #### [facility] (DEFAULT) [address] [place] [address] 51247Gncjtpkkjo (Bld) [Mass/Vol]8.5 g/dLLow11.3-15.9[facility] HospitalComment on above:Performed By: #### [id number], 05953122, 2548998 #### [facility] (DEFAULT) [address] [place] [address] 93288Oho Diff?AutoNormalProvidence Hospital HospitalComment on above: Performed By: #### [id number], 96039317, 8711913 #### [facility] (DEFAULT) [address] [place] [address] 73583CHQ (RBC) [Entitic mass]24 mbIukocq36-95Capmgqmi Hospital Comment on above:Performed By: #### [id number], 66022083, 5782218 #### [facility] (DEFAULT) [address] [place] [address] 76860RQAR (RBC) [Mass/Vol]30 g/lDZjlyfk47-80Isbqifdw Hospital Comment on above:Performed By: #### [id number], 50556947, 3937971 #### [facility] (DEFAULT) [address] [place] [address] 18338JBH (RBC) [Entitic vol]81 bNBpnyxu78-435Lxzuvzfa Hospital Comment on above:Performed By: #### [id number], 06298376, 6029808 #### [facility] (DEFAULT) [address] [place] [address] 62415Ikyiugzs mean volume (Bld) [Entitic vol]10.5 fLHigh 6.3-10.2Mcity hospital HospitalComment on above:Performed By: #### [id number], 68269854, 6529402 #### [facility] (DEFAULT) [address] [place] [address] 48340Creobqnzc (Bld) [#/Vol]178 m84Hmmnhb831-990Delhfcgx HospitalComment on above:Performed By: #### [id number], 22672750, 1777357 #### [facility] (DEFAULT) [address] [place] [address] 02268YDX (Bld) [#/Vol]3.50 m97Pdq4.70-5.30[facility] Comment on above:Performed By: #### [id number], 52109475, 5888123 #### [facility] (DEFAULT) [address] [place] [address] 87104FTE (Bld) [#/Vol]8.2 d76Chxsqvtc HospitalComment on above: Performed By: #### [id number], 21717928, 3507291 #### [facility] (DEFAULT) [address] [place] [address] 61473Gulbz Greenon 52-84-0348Xsax CollectedWilson Health Comment on above:Performed By: #### [id number], 68913100, 0794526 #### [facility] (DEFAULT) [address] [place] [address] 25355Mresxro and Physicalon 07-52-1704Ayiraty and Physical [id number]#1.00OTGTIFFChildren's Hospital of Columbus Nutrition Noteon 24-17-6283Bgefsbqrs NotePer intake records, Pt avg 50% of past 6 meals with inconsistent supplement intake avg 1X/d. Last BM on 05/23, will offer prunejuice. Post op anemia noted; per ortho 1unit PRBC given. CXR obtained for fever, dyspnea which was wnl. Possible discharge later today. Will continue to monitor.NormalProvidence HospitalPTon 19-86-6398SHH Coag (PPP) [Relative time]2.54 {INR}High0.91-1.11[facility] HospitalComment on above: Performed By: #### [id number], 93190840, 4715212 #### [facility] (DEFAULT) [address] [place], [place] [address]DJ Coag (PPP) [Time]24.4 second(s)High9.7-11.8[facility] HospitalComment on above:Performed By: #### [id number], 36817961, 0336985 #### [facility] (DEFAULT) [address] [place] [address] 46490Lnwhytbb Note-Physicianon 33-64-3339Qrrhqtjh Note-PhysicianDATE OF ORTHOPEDIC POSTOPERATIVE PROGRESS NOTE: 05/25/2020 [...] is good. Tino Moon DO JOB #: [id number] bk [Electronically Signed on: 05/26/2020 13:12 EDT] TINO MOON DO [Verified on: 05/26/2020 13:12 EDT] TINO MOON DO [Transcribed on: 05/26/2020 10:28 EDT] [facility] HospitalXR Chest 1 View Frontalon 57-71-5182SF Chest 1 View FrontalEXAM: XR Chest 1 [...] Jesus Green MD 05/26/20 3:37 pm Technologist: ,[facility].Auto Diff 1on 48-30-2800Gxfg [place] %17 %[address] Edwards StreetComment on above:Performed By: #### [id number], 75856752, 8478633 #### [facility] (DEFAULT) [address] [place] [address] 33136Uyhk Abs#0.0 q89Scvhdr2.0-0.2[facility] HospitalComment on above:Performed By: #### [id number], 80297716, 0876333 #### [facility] (DEFAULT) [address] [place] [address] 10607Lgvqcgpid/100 WBC (Bld)0.3 %Normal0.2-2.0Magrohiohealth berger hospital Hospital Comment on above:Performed By: #### [id number], 27173174, 6917101 #### [facility] (DEFAULT) [address] [place] [address] 10556Ocd Abs#0.0 s69Exixdw4.0-0.4[facility]uder HospitalComment on [facility]:Performed By: #### [id number] #### [facility] (DEFAULT) [address] [place] [address] 11572Cjqwkbobmbg/100 WBC (Bld)0.1 %Low0.9-4.0[facility] Comment on above:Performed By: #### [id number] #### [facility] (DEFAULT) [address] [place] [address] 48457Uqkvafgflkn (Bld) [#/Vol]0.8 r21Fzz8.3-2.9[facility]:Performed By: #### [id number] #### [facility] (DEFAULT) [address] [place] [address] 14444Zmcpxwdnsdu/100 WBC (Bld)11 %Cjp15-30Xvfmkjww Hospital Comment on above:Performed By: #### [id number] #### [facility] (DEFAULT) [address] [place] [address] 94006Zoqx Abs#1.1 z23Qxvo3.0-0.8[facility] HospitalComment [facility] above:Performed By: #### [id number], [id number], [id number] #### [facility] (DEFAULT) [address] [place] [address] 28293Wzgw Abs#4.8 l53Nzgwtj3.5-9.2[facility] HospitalComment on above:Performed By: #### [id number], [id number], [id number] #### [facility] (DEFAULT) [address] [place] [address] 43201Xreolatpuyd/100 WBC (Bld)72 %Akihrm09-61Megkdbyj Hospital Comment on above:Performed By: #### [id number], [id number], 7498876 #### [facility] (DEFAULT) [address] [place] [address] 06731MQG w/ Auto Diffon 01-13-3861Abhlxjqffpw distribution width (RBC) [Ratio]17.6 %High11.5-15.0[facility] HospitalComment on above: Performed By: #### [id number], [id number], [id number] #### [facility] (DEFAULT) [address] [place] [address] 95065Wsukfihzou (Bld) [Volume fraction]27.4 %Low33.7-40.4 [facility] HospitalComment on above:Performed By: #### [id number], 30310404, 9692684 #### [facility] (DEFAULT) [address] [place] [address] 03313Sggobnvuuo (Bld) [Mass/Vol]8.1 g/dLLow11.3-15.9[facility] HospitalComment on above:Performed By: #### [id number], [id number], 6945007 #### [facility] (DEFAULT) [address] [place] [address] 59121Lqg Diff?AutoNormalProvidence Hospital HospitalComment on above: Performed By: #### [id number], 49521558, 7652654 #### [facility] (DEFAULT) [address] [place] [address] 78979XZB (RBC) [Entitic mass]24 bkUqihox67-83Kceurxhf Hospital Comment on above:Performed By: #### [id number], 69680409, 0172862 #### [facility] (DEFAULT) [address] [place] [address] 41957UAGG (RBC) [Mass/Vol]30 g/wTSkqytm17-66Ozatpuec Hospital Comment on above:Performed By: #### [id number], 30148421, [id number] #### [facility] (DEFAULT) [address] [place] [address] 36433KZR (RBC) [Entitic vol]80 nXJkc68-628Avckfmlb Hospital Comment on above:Performed By: #### [id number], 81435146, 0494953 #### [facility] (DEFAULT) [address] [place] [address] 35433Wfvxutja mean volume (Bld) [Entitic vol]10.8 fLHigh 6.3-10.2MSt. John of God HospitalComment on above:Performed By: #### [id number], 75670858, 8887954 #### [facility] (DEFAULT) [address] [place] [address] 24196Xxkcoyasl (Bld) [#/Vol]186 g15Rfqqnd182-887Bdrxcnvs HospitalComment on above:Performed By: #### [id number], 12149237, 2459886 #### [facility] (DEFAULT) [address] [place] [address] 17835LLB (Bld) [#/Vol]3.42 g93Kvy3.70-5.30[facility] Comment on above:Performed By: #### [id number], 95615803, 2681700 #### [facility] (DEFAULT) [address] [place] [address] 98636ZLW (Bld) [#/Vol]6.8 v89Grovyu1.5-10.5[facility] Comment on above:Performed By: #### [id number], 43927528, 9002317 #### [facility] (DEFAULT) [address] [place] [address] 63936Emblqzqhxvh Panel Standardon 41-75-3138Apzlo gap [Moles/Vol]12.0 mmol/LNormal5.0-19.0[facility] HospitalComment on above:Performed By: #### [id number], 13908789, 6232576 #### [facility] (DEFAULT) [address] [place] [address] 98130Gvglpxwu [Moles/Vol]102 mmol/EWyjpru123-892Iaguumfs HospitalComment on above:Performed By: #### [id number], 99144233, 1615353 #### [facility] (DEFAULT) [address] [place] [address] 43299GA1 [Moles/Vol]28 mmol/BAydedg05-28Yplxxfiy Hospital Comment on above:Performed By: #### [id number], 54594477, 2334480 #### [facility] (DEFAULT) [address] [place] [address] 03858Hufubttix [Moles/Vol]4.0 mmol/LNormal3.6-5.1[facility] HospitalComment on above:Performed By: #### [id number], 12043928, 7054732 #### [facility] (DEFAULT) [address] [place] [address] 40418Ntaulg [Moles/Vol]138.0 mmol/URjifpw588.0-144.0[facility] HospitalComment on above:Performed By: #### [id number], 78732674, 6272444 #### [facility] (DEFAULT) [address] [place] [address] 91629LFuf 20-09-4829YXO Coag (PPP) [Relative time]1.89 {INR} High0.91-1.11[facility] HospitalComment on above:Performed By: #### [id number], 15466856, 2760296 #### [facility] (DEFAULT) [address] [place] [address] 10205NX Coag (PPP) [Time]18.6 second(s)High9.7-11.8[facility] HospitalComment on above:Performed By: #### [id number], 20245166, 0745194 #### [facility] (DEFAULT) [address] [place], [place] [address]Rxmbhdvv Note - Nurseon 41-05-9857Fdproirp Note - Nursept requiring three assist to [...] [Verified on: 05/25/2020 18:51 EDT] Jessica Abernathy RNUniversity Hospitals Portage Medical Centeress Note - NurseUnable to get mask to fit correctly so placed on 2 L overnight. [Electronically Signed on: 05/25/2020 01:45 EDT] Lyndsay Lou RN [Verified on: 05/25/2020 01:45 EDT] Lyndsay Lou RNMary [facility] Note - NursePt asleep with cpap mask off, woke her to put it back on. [Electronically Signed on: 05/25/2020 01:33 EDT] Lyndsay Lou RN [Verified on: 05/25/2020 01:33 EDT] Lyndsay Lou [facility] HospitalProgress Note - NursePt up to bedside commode with 2 assist and walker, transfers very poorly and reports alot of knee pain. [Electronically Signed on: 05/25/2020 00:22 EDT] Lyndsay Lou RN [Verified on: 05/25/2020 00:22 EDT] Lyndsay Lou [facility] HospitalRBC.on 49-13-7715NWW (Bld) [#/Vol]# of Units: 1 RBC Indication: Post-Op Bleed Additional Units?: No Date Needed: 05/25/2002 Red Cell Status: RBC [place] HospitalComment on above:Performed By: #### [id number], [id number], 8435942 #### [facility] (DEFAULT) [address] [place] [address].Auto Diff 1on 83-76-9170Kqja [place] %9 %Normal1-12[facility] HospitalComment on above:Performed By: #### [id number], 31008506, 1496530 #### [facility] (DEFAULT) [address] [place] [address] 97945Nvfa Abs#0.0 e67Qwwtpp2.0-0.2Magrohiohealth berger hospital HospitalComment on above:Performed By: #### [id number], 26706308, 1026705 #### [facility] (DEFAULT) [address] [place], [place] [address]Basophils/100 WBC (Bld)0.2 %Normal0.2-2.0[facility] Hospital Comment on above:Performed By: #### [id number], 84424646, 7447082 #### [facility] (DEFAULT) [address] [place] [address] 61027Oee Abs#0.0 n70Xkvidm2.0-0.4Magrohiohealth berger hospital HospitalComment on above:Performed By: #### [id number], 87029706, 0317639 #### [facility] (DEFAULT) [address] [place] [address] 43471Hwwvzkmvcmt/100 WBC (Bld)0.0 %Low0.9-4.0Magrohiohealth berger hospital Hospital Comment on above:Performed By: #### [id number], 10420341, 6430348 #### [facility] (DEFAULT) [address] [place] [address] 23724Dxziaxuonuk (Bld) [#/Vol]0.7 m66Bjk7.3-2.9Magruder HospitalComment on above:Performed By: #### [id number], 00521156, 2929765 #### [facility] (DEFAULT) [address] [place] [address] 38417Flwfizluopk/100 WBC (Bld)6 %Afd83-74Ergnamxe Hospital Comment on above:Performed By: #### [id number], 07000426, 0836073 #### [facility] (DEFAULT) [address] [place] [address] 63034Mgxa Abs#0.9 c74Cbdv7.0-0.8Magrohiohealth berger hospital HospitalComment on above:Performed By: #### [id number], 74503334, 6651219 #### [facility] (DEFAULT) [address] [place] [address] 41503Cngr Abs#8.7 m16Xauomz1.5-9.2Magruder HospitalComment on above:Performed By: #### [id number], 85882405, 2261907 #### [facility] (DEFAULT) [address] [place] [address] 31927Jiqeeogyaum/100 WBC (Bld)84 %Wjzvhs05-76Xtbgbjmh Hospital Comment on above:Performed By: #### [id number], 09229209, 8296402 #### [facility] (DEFAULT) [address] [place] [address] 34816YWM Standardon 27-26-0820aXBR Non AA>60[facility] Comment on above:Performed By: #### [id number], 68521061, 1781366 #### [facility] (DEFAULT) [address] [place] [address] 43749jEUM AA>60[facility] HospitalComment on above:Result Comment: Chronic Kidney disease could be indicated at eGFRs of less than 60 ml/min/1.73m2. Kidney Failure is indicated at less than 15 ml/min/1.73m2 Performed By: #### [id number], 28322863, 0463794 #### [facility] (DEFAULT) [address] [place] [address] 41707Bfiwv gap [Moles/Vol]13.0 mmol/LNormal5.0-19.0[facility] HospitalComment on above:Performed By: #### [id number], 38834921, 4205081 #### [facility] (DEFAULT) [address] [place] [address] 91558Hzfmpng [Mass/Vol]8.5 mg/dLLow8.9-10.3MSt. [facility] of God [facility] Comment on above:Performed By: #### [id number], 03678172, 8429229 #### [facility] (DEFAULT) [address] [place] [address] 87892Qntgsvbn [Moles/Vol]102 mmol/YIdelqd889-617Imgstgeh HospitalComment on above:Performed By: #### [id number], 99471832, 5865069 #### [facility] (DEFAULT) [address] [place] [address] 00939WL9 [Moles/Vol]27 mmol/LCumtga60-85Rfydfgus Hospital Comment on above:Performed By: #### [id number], 00603544, 9992365 #### [facility] (DEFAULT) [address] [place] [address] 85796Drddlvbueb [Mass/Vol]0.57 mg/dLLow0.60-1.30[facility] HospitalComment on above:Performed By: #### [id number], 61067971, 6678981 #### [facility] (DEFAULT) [address] [place] [address] 11023Lfelqoq [Mass/Vol]134.0 mg/yAYefa74.0-118.0[facility] HospitalComment on above:Performed By: #### [id number], 58328541, 5160390 #### [facility] (DEFAULT) [address] [place] [address] 82748Xvrxjaiqka [Osmolality]280 mOsm/LMcity hospital HospitalComment on above:Performed By: #### [id number], 82564703, 2182876 #### [facility] (DEFAULT) [address] [place] [address] 72272Wnlqjxlxp [Moles/Vol]4.4 mmol/LNormal3.6-5.1[facility] HospitalComment on above:Performed By: #### [id number], 40392631, 2670539 #### [facility] (DEFAULT) [address] [place] [address] 11470Rrzfrv [Moles/Vol]138.0 mmol/SFtjzyy583.0-144.0[facility] HospitalComment on above:Performed By: #### [id number], 74205797, 7737498 #### [facility] (DEFAULT) [address] [place] [address] 54247Supp nitrogen [Mass/Vol]19 mg/dLNormal8-26[facility] HospitalComment on above:Performed By: #### [id number], 97680628, 6248844 #### [facility] (DEFAULT) [address] [place] [address] 92767Hojs nitrogen/Creatinine [Mass ratio]33.0 mg/mgHigh 4.6-16.2[facility] HospitalComment on above:Performed By: #### [id number], 40523930, 4189574 #### [facility] (DEFAULT) [address] [place] [address] 31515IUG w/ Auto Diffon 05-50-8586Xtbzwxvcdua distribution width (RBC) [Ratio]17.4 %High11.5-15.0[facility] HospitalComment on above: Performed By: #### [id number], 32076224, [id number] #### [facility] (DEFAULT) [address] [place] [address] 88801Wfojulapjf (Bld) [Volume fraction]29.3 %Low33.7-40.4 [facility] HospitalComment on above:Performed By: #### [id number], 02132291, [id number] #### [facility] (DEFAULT) [address] [place] [address] 09006Ndiyajsjbm (Bld) [Mass/Vol]8.7 g/dLLow11.3-15.9[facility] HospitalComment on above:Performed By: #### [id number], 28892898, 7605386987 #### [facility] (DEFAULT) [address] [place] [address] 89541Mhx Diff?AutoNormalProvidence Hospital HospitalComment on above: Performed By: #### [id number], 69481250, [id number] #### [facility] (DEFAULT) [address] [place] [address] 66881UKI (RBC) [Entitic mass]24 odXtsmok06-78Fphuuyeh Hospital Comment on above:Performed By: #### [id number], 88005604, [id number] #### [facility] (DEFAULT) [address] [place] [address] 03167YBRE (RBC) [Mass/Vol]30 g/vLHamecn90-82Hvqjahtf Hospital Comment on above:Performed By: #### [id number], 79747588, [id number] #### [facility] (DEFAULT) [address] [place] [address] 26065PBO (RBC) [Entitic vol]81 xVZtsdtx72-483Eavrumav Hospital Comment on above:Performed By: #### [id number], 62457788, [id number] #### [facility] (DEFAULT) [address] [place] [address] 45747Ssainzqn mean volume (Bld) [Entitic vol]10.6 fLHigh 6.3-10.2[facility] HospitalComment on above:Performed By: #### [id number], 10981419, 7168975332 #### [facility] (DEFAULT) [address] [place] [address] 89986Gwgsznkph (Bld) [#/Vol]211 z52Aemqwv361-722Djcwaqwl HospitalComment on above:Performed By: #### [id number], 27801777, [id number] #### [facility] (DEFAULT) [address] [place] [address] 52677OOQ (Bld) [#/Vol]3.63 f52Llu2.70-5.30[facility] Comment on above:Performed By: #### [id number], 96492877, 5273262233 #### [facility] (DEFAULT) [address] [place] [address] 57178QOE (Bld) [#/Vol]10.4 j16Uqwnnr6.5-10.5[facility] Comment on above:Performed By: #### [id number], 42206690, 3055091663 #### [facility] (DEFAULT) [address] [place] [address] 47683Kpgmafhym Noteon 89-05-2588Aiurackcb NoteDiet ordered as 3000kcal, DM w/ Boost Glucose Control BID. Diet adjusted to 2gr Na to reflect Pts home diet and supplement changed to Ensure Compact BID which is available in house. Pt does not have DM. Will continue to monitor.NormalProvidence HospitalPT on 87-08-8510VYC Coag (PPP) [Relative time]1.21 {INR}High0.91-1.11[facility] HospitalComment on above:Performed By: #### [id number], 86979368, 9928281 #### [facility] (DEFAULT) [address] [place] [address] 92198GS Coag (PPP) [Time]12.3 second(s)High9.7-11.8[facility] HospitalComment on above:Performed By: #### [id number], 13236097, 5481441 #### [facility] ([facility]) [address] [place] [address] 55764Epwmtgcc Noteon 90-57-1650Sflyvmss NoteI have personally reviewed the patient's current [...] Molina [Verified on: 05/24/2020 16:28 EDT] Kellee MolinaMary [facility] Hospital Note - Nurseon 05-24-2020 Progress Note - Nursepts pain becming worse. giving 10mg oxy po every four hours, polar care in place and dr epperson notified of pain not controlled. will administer po gabepentin per order. will continue to monitor [Electronically Signed on: 05/24/2020 17:20 EDT] Jessica Abernathy RN [Verified on: 05/24/2020 17:20 EDT] Jessica Abernathy RNUniversity Hospitals Portage Medical Centeress Note - Nursept requires assistance getting in and out of bed. still a little stiff from surgery but does ok once up w the walker. pain so far has been controlled w 10 mg po oxy. [Electronically Signed on: 05/24/2020 10:54 EDT] Jessica Abernathy RN [Verified on: 05/24/2020 10:54 EDT] Jessica Abernathy RNNormTuscarawas HospitalABORhon 53-14-0507DOS and group Nom (d)Hx Check: Not Found Anti-A: 4+ Anti-B: 0 Anti-D: 4+ DCon: NT A1: mf+ B: 4+ ABORh Interp: A POSMagrohiohealth berger hospital HospitalComment on above:Performed By: #### [id number], 91459427, [id number] #### [facility] (DEFAULT) [address] [place] [address] 87162UPJZo Retypeon 21-21-4401RLT and group Nom (Bld)Ordered by Discern. Anti-A: 4+ Anti-B: 0 Anti-D: 4+ DCon: NT A1: mf+ B: 4+ ABORh Retype: A POSProvidence Hospital HospitalComment on above:Performed By: #### [id number], 01537659, [id number] #### [facility] (DEFAULT) [address] [place] [address] 85782WGXK Gelon 49-43-3563OEHO GelNegativeChildren's Hospital of Columbus HospitalComment on above:Performed By: #### [id number], 97213348, [id number] #### [facility] (DEFAULT) [address] [place] [address] 46948Zcbkcoixgx Noteon 83-00-5851Ljjljmvfec NotePatient: SANDRA TAVAREZ Age: 79 years Sex: [...] history): All Problems Anemia / SNOMED CT 067537590 / Confirmed At risk of pressure sore / SNOMED CT 894837312 / Confirmed Cardiomyopathy / SNOMED CT 471363922 / Confirmed DVT (deep venous thrombosis) / SNOMED CT 253910983 / Confirmed GERD (gastroesophageal reflux disease) / SNOMED CT 097981334 / Confirmed Hyperlipidemia / SNOMED CT 27389804 / Confirmed Hypertension / SNOMED CT 6585637187 / Confirmed Lumbar spondylosis / SNOMED CT 769718136 / Confirmed Mass / SNOMED CT 120288113 / Confirmed KERMIT (obstructive sleep apnea) / SNOMED CT 027839979 / Confirmed Pulmonary hypertension / SNOMED CT 762345415 / Confirmed Seizure / SNOMED CT 428620807 / Confirmed Venous insufficiency / SNOMED CT 814633408 / Confirmed Resolved: Adrenal adenoma / SNOMED CT 693749459 Resolved: Pulmonary emboli / SNOMED CT 48500381 Histories Family History: Diabetes mellitus Sister Heart attack Father Leukemia Father Stroke.... Mother Procedure history: Cholecystectomy (32848655). Colectomy (51062766). Colonoscopy (708274166). [place] filter (325803544). Femur fracture, right (74471289). Shoulder (90439011). Comments: 02/08/2020 9:57 Stacy Reynolds RN torn rotator cuff 02/08/2020 7:28 FRANSISCOT Stacy Booker RN arthroplasty Knee arthroplasty (460048178). Craniotomy (95847675). Laminectomy (2135708874). Comments: 02/08/2020 7:30 Stacy Reynolds RN foraminotomy, facetectomy with decompression and fusion Cataract (490530959). Social History Electronic Cigarette/Vaping Assessment Electronic Cigarette [...] Oriented. Review / Management Laboratory Results Plan [place] [employer]hesi[employer]#(ASA) physical status classification: Class [...] [Verified on: 05/23/2020 13:34 EDT] Maico Sandhu [facility] HospitalBlood Bank IDon [id number] Bank ID BBID: [id number] HospitalComment on above:Performed By: #### [id number], 91181808, [id number] #### [facility] (DEFAULT) [address] [place] [address] 60474Tquek Diablo 74-57-6301Icsg [facility] Comment on above:Performed By: #### [id number], 35692099, [id number] #### [facility] (DEFAULT) [address] [place] [address] 33337Ougk CollectedWilson HealthComment on above: Performed By: #### 5043578, 64723480, [id number] #### [facility] (DEFAULT) [address] [place] [address] 28160Ixcut 60-08-5684Qalvewhrza (Bld) [Mass/Vol]10.1 g/dLLow 11.3-15.9[facility] HospitalComment on above:Performed By: #### 4021304, 08845200, [id number] #### [facility] (DEFAULT) [address] [place] [address] 11128TKIP Intraoperative Recordon 46-21-0363VYDE Intraoperative RecordMAGR Intra-Op Record Summary Primary Physician: FERNANDO SILVA Finalized Date/Time: 05/23/20 16:19:21 Pt. Name: SANDRA TAVAREZ Lyndsay ValdezB./Sex: 1940 FEMALE Med Rec #: [id number] Physician: FERNANDO SILVA Financial #: [id number] Pt. Type: I Room/Bed: [facility] Admit/Disch: 05/23/20 09:44:18 - Institution: Case [...] Role Performed Surgeon - Primary Anesthesiologist of Stitch Bonding Machine Operator Record Time In 05/23/20 13:19:00 05/23/20 13:19:00 05/23/20 13:19:00 Time Out 05/23/20 16:17:00 05/23/20 16:17:00 05/23/20 15:52:00 Procedure Arthroplasty Knee Arthroplasty Knee Arthroplasty Knee Total(Left) Total(Left) Total(Left) Last Modified By: Shanique Brown RN, Barbara RN Long, Barbara RN 05/23/20 16:19:02 05/23/20 16:19:02 05/23/20 16:19:02 Entry 4 Entry 5 Entry 6 Case Attendee Thomas HEALTH INFORMATION MANAGEMENT DIRECTOR, Sridhar Vallejo Jennifer RN Regina CST Role Performed Scrub Personnel Philosophy Specialist Philosophy Specialist Time In 05/23/20 13:19:00 05/23/20 13:19:00 [...] Implanted/Explanted By: Size 6.5mm 48mm 29MM ISADORA Hardware Designer waleska [employer] W[employer]ES[employer] Catalog # Lot Number [id number] Expiration Date 10/27/29 11/27/29 10/27/29 Serial Number REF [id number] 35 REF 5983 40 48 REF 5979 95 29 Device Identifier Human Readable CHASE Machine Readable CHASE MR Class Implant Usage Data Site Knee L Knee L Knee L Quantity 1 1 1 Reason for Explant Reason Not Retained Explant Disposition Orthodontic Laboratory Technician Sterility External Indicator Result Internal Indicator Results [...] C D 15MM ISADORA X 30MM L Hardware Designer W[employer]ES[employer] Catalog # Lot Number [id number] Expiration Date 02/25/30 01/25/25 08/27/29 Serial Number REF [id number] RE 59 62 30 10 REF 5099 12 15 Device Identifier Human Readable CHASE Machine Readable CHASE MR Class Implant Usage Data Site Knee L Knee L Knee L Quantity 1 1 1 Reason for Explant Reason Not Retained Explant Disposition Orthodontic Laboratory Technician Sterility External Indicator Result Internal Indicator Results [...] By: Size 29 MM ISADORA 4 D Hardware Designer [employer] Catalog # Lot Number [id number] Expiration Date 09/27/27 09/25/29 07/28/26 Serial Number REF 42 [id number] 000 29 REF 5980 37 02 REF 00 [id number] Device Identifier Human Readable CHASE Machine Readable CHASE MR Class Implant Usage Data Site Knee L Knee L Knee L Quantity 1 1 1 Reason for Explant Reason Not Retained Explant Disposition Orthodontic Laboratory Technician Sterility External Indicator Result Internal Indicator Results [...] Implanted/Explanted STEPANIC, FERNANDO STEPANIC, FERNANDO By: Size Hardware Designer WALESKA/BIOMET WALESKA/BIOMET Catalog # Lot Number [id number] Expiration Date 05/27/24 05/27/24 Serial Number REF [id number] REF [id number] Device Identifier Human Readable CHASE Machine Readable CHASE MR Class Implant Usage Data Site Knee L Knee L Quantity 1 1 Reason for Explant Reason Not Retained Explant Disposition Orthodontic Laboratory Technician Sterility External Indicator Result Internal Indicator Results [...] Signatures Signed By: Shanique Brown RN 05/23/20 16:19[facility] Intraoperative Record MAGR Intra-Op Record Summary Primary Physician: Finalized Date/Time: 05/23/20 13:14:24 Pt. Name: SANDRA TAVAREZ/Sex: 1940 FEMALE Med Rec #: [id number] Physician: FERNANDO SILVA Financial #: [id number] Pt. Type: I Room/Bed: [facility] Admit/Disch: 05/23/20 09:44:18 - Institution: Case [...] Warga, Laura RN Role Performed Anesthesiologist of Stitch Bonding Machine Operator Stitch Bonding Machine Operator Record Time In 05/23/20 12:58:00 05/23/20 12:58:00 [...] Signatures Signed By: Stacy Pena RN 05/23/20 13:14[facility] PACU Recordon [id number] PACU RecordMA PACU Record Summary Primary Physician: FERNANDO SILVA Finalized Date/Time: 05/23/20 16:49:56 Pt. Name: SANDRA TAVAREZ/Sex: 1940 FEMALE Med Rec #: [id number] Physician: FERNANDO SILVA Financial #: [id number] Pt. Type: I Room/Bed: [facility] Admit/Disch: 05/23/20 09:44:18 - Institution: PACU Case Times MAGR Entry 1 In PACU I 05/23/20 16:18:00 Discharge from PACU 05/23/20 16:51:00 I Last Modified By: Shanique Brown RN 05/23/20 16:49:54 Finalized By: Shanique Brown RN Document Signatures Signed By: Shanique Brown RN 05/23/20 16:49[facility] Hospital of ColumbusNutrition Noteon 70-28-7452Zeglrjjqt NotePt admitted for scheduled Lt total knee [...] risk r/t age greater than 65y and surgery.[facility] 49-02-6910TXC Coag (PPP) [Relative time]1.22 {INR}High0.91-1.11 [facility] HospitalComment on above:Performed By: #### [id number], [id number], [id number] #### [facility] (DEFAULT) [address] [place] [address] [id number] Coag (PPP) [Time]12.4 second(s)High9.7-11.8Prov[facility] HospitalComment on above:Result Comment: Called Shira in Pre - Surg at 1059 Performed By: #### [id number], [id number] #### [facility] (DEFAULT) [address] [place] [address] [id number] (COVID-19) PCRon [id number] PCRNot DetectedNormalNot DetectedProvidence HospitalComment on above:Result Comment: performed in house Results Called To Stacy in pre-surg By ARIADNA And Read Back For Confirmation On 05/23/2020 10:55:59 EDTPerformed By: #### [id number], [id number], [id number] #### [facility] (DEFAULT) [address] [place] [address] [id number] Knee One or Two Views Lefton [id number] Knee One or Two Views LeftEXAM: XR [...] Jae Cardona 05/23/20 4:50 pm Technologist: Tabitha BLANTONProvidence HospitalProgress Note - Nurseon 05-07-2020 Progress Note - NurseChart reviewed by Dr. Maria and no new orders received. May proceed to surgery. [Electronically Signed on: 05/07/2020 15:56 EDT] Chrissie Contreras RN [Verified on: 05/07/2020 15:56 EDT] Chrissie Contreras RN [facility] HospitalCoding Summaryon [id number] SummaryCODING DATE: 02/27/2020 [facility] STATUS: Home PAYOR: Medicare APC DESCRIPTION [...] Morena Fang Revised Date Saved: 02/27/2020 01:41 [facility] - Nurseon [id number] Note - NurseChart reviewed by Dr. Garcia and no new orders received. [Electronically Signed on: 02/12/2020 15:52 EDT] Chrissie Contreras RN [Verified on: 02/12/2020 15:52 EDT] Chrissie Contreras RN [facility]Provider Orderson 02-11-2020 Provider [id number]#1.00OTGTIFFNoMemorial Hospital Urineon 02-10-2020C UrineUrine Culture ordered as a result of parameters set on specific urine dip and urine microsopic results. Mixed skin, or urogenital paddy. [facility] insignificantChildren[facility] of [facility] Comment on above:Performed By: #### [id number], [id number], [id number] #### [facility] (DEFAULT) [address] [place] [address] 75973.Auto Diff 1on 85-40-8759Okzg [place] %12 %Normal1-12[facility] HospitalComment on above:Performed By: #### [id number], [id number], [id number] #### [facility] (DEFAULT) [address] [place] [address] 25971Fnhb Abs#0.0 n40Mjziiw6.0-0.2[facility] HospitalComment on above:Performed By: #### [id number], [id number], [id number] #### [facility] (DEFAULT) [address] [place] [address] 17061Ibnmrqfzu/100 WBC (Bld)0.4 %Normal0.2-2.0[facility] Comment on above:Performed By: #### [id number], [id number], [id number] #### [facility] (DEFAULT) [address] [place] [address] 70658Biw Abs#0.1 h06Lqtirq4.0-0.4[facility] HospitalComment on above:Performed By: #### [id number], [id number], [id number] #### [facility] (DEFAULT) [address] [place] [address] 30241Rnjotaunfkc/100 WBC (Bld)1.9 %Normal0.9-4.0[facility] HospitalComment on above:Performed By: #### [id number], [id number], [id number] #### [facility] (DEFAULT) [address] [place] [address] 91049Prrrvpvbafi (Bld) [#/Vol]1.0 z53Hgu7.3-2.9Mag[facility]hio[facility] hospital HospitalComment on above:Performed By: #### [id number], [id number], [id number] #### [facility] (DEFAULT) [address] [place] [address] 92446Niurasmqrsg/100 WBC (Bld)22 %Pmyufc78-29Tzvculdn Hospital Comment on above:Performed By: #### [id number], [id number], [id number] #### [facility] (DEFAULT) [address] [place] [address] 96737Oglx Abs#0.6 e61Wsihug9.0-0.8[facility] HospitalComment on above:Performed By: #### [id number], [id number], [id number] #### [facility] (DEFAULT) [address] [place] [address] 23180Jeep Abs#3.0 q49Qfoibw9.5-9.2[facility] hospital HospitalComment on above:Performed By: #### [id number], [id number], [id number] #### [facility] (DEFAULT) [address] [place] [address] 81216Bnrguilukyi/100 WBC (Bld)64 %Qwnztn56-45Wbwvtwit Hospital Comment on above:Performed By: #### [id number], [id number], [id number] #### [facility] (DEFAULT) [address] [place] [address] 28116MIX Standardon 00-73-2445yIYK Non AA>60[facility] Hospital Comment on above:Performed By: #### [id number], [id number], [id number] #### [facility] (DEFAULT) [address] [place] [address] 83845mUIP AA>60[facility] HospitalComment on above:Result Comment: Chronic Kidney disease could be indicated at eGFRs of less than 60 ml/min/1.73m2. Kidney Failure is indicated at less than 15 ml/min/1.73m2 Performed By: #### [id number], [id number], [id number] #### [facility] (DEFAULT) [address] [place] [address] 10336Fwlbk gap [Moles/Vol]15.0 mmol/LNormal5.0-19.0[facility] HospitalComment on above:Performed By: #### [id number], [id number], [id number] #### [facility] (DEFAULT) [address] [place] [address] 51515Okzchzd [Mass/Vol]9.4 mg/dLNormal8.9-10.3[facility] Hospital Comment on above:Performed By: #### [id number], [id number], [id number] #### [facility] (DEFAULT) [address] [place] [address] 47314Ezdtmzij [Moles/Vol]102 mmol/UQypifi737-168Agsdcmov HospitalComment on above:Performed By: #### [id number], [id number], [id number] #### [facility] (DEFAULT) [address] [place] [address] 48855ZO9 [Moles/Vol]26 mmol/OVpdwfi70-34Tjezshrc Hospital Comment on above:Performed By: #### [id number], [id number], [id number] #### [facility] (DEFAULT) [address] [place] [address] 75235Cuyjkqjmvs [Mass/Vol]0.64 mg/dLNormal0.60-1.30[facility] HospitalComment on above:Performed By: #### [id number], [id number], [id number] #### [facility] (DEFAULT) [address] [place] [address] 08571Uvxcjdo [Mass/Vol]112.0 mg/pLJnwmim23.0-118.0[facility] HospitalComment on above:Performed By: #### [id number], [id number], [id number] #### [facility] (DEFAULT) [address] [place] [address] 00572Gvbxgnggcy [Osmolality]280 mOsm/LMcity hospital HospitalComment on above:Performed By: #### [id number], 72085555, [id number] #### [facility] (DEFAULT) [address] [place] [address] 64192Dndkyssyq [Moles/Vol]4.1 mmol/LNormal3.6-5.1[facility] HospitalComment on above:Performed By: #### [id number], 60408109, [id number] #### [facility] (DEFAULT) [address] [place] [address] 46412Ypqmjr [Moles/Vol]139.0 mmol/ZTekzne645.0-144.0[facility] HospitalComment on above:Performed By: #### [id number], 89870617, [id number] #### [facility] (DEFAULT) [address] [place] [address] 00156Vlfm nitrogen [Mass/Vol]19 mg/dLNormal8-26[facility] HospitalComment on above:Performed By: #### [id number], 80574484, [id number] #### [facility] (DEFAULT) [address] [place] [address] 58493Yaxn nitrogen/Creatinine [Mass ratio]30.0 mg/mgHigh 4.6-16.2[facility] HospitalComment on above:Performed By: #### [id number], 49249079, [id number] #### [facility] (DEFAULT) [address] [place] [address] 20406NCL w/ Auto Diffon 88-27-7213Akhvlohwtmv distribution width (RBC) [Ratio]14.8 %Ckfrvf70.5-15.0[facility] HospitalComment on above: Performed By: #### [id number], [id number], [id number] #### [facility] (DEFAULT) [address] [place] [address] 59996Nwclukjegp (Bld) [Volume fraction]37.2 %Nnkijd43.7-40.4 [facility] HospitalComment on above:Performed By: #### 0569852, 99612269, [id number] #### [facility] (DEFAULT) [address] [place] [address] 35455Hnaozzvhyf (Bld) [Mass/Vol]11.6 g/rXEbaygt91.3-15.9 [facility] HospitalComment on above:Performed By: #### [id number], 04612654, [id number] #### [facility] (DEFAULT) [address] [place] [address] 89703Det Diff?AutoNormalProvidence Hospital HospitalComment on above: Performed By: #### [id number], 69951170, [id number] #### [facility] (DEFAULT) [address] [place] [address] 53757MNG (RBC) [Entitic mass]26 tlCdbfqi27-59Dembwwvu Hospital Comment on above:Performed By: #### [id number], 97818834, [id number] #### [facility] (DEFAULT) [address] [place] [address] 41598OXZH (RBC) [Mass/Vol]31 g/pGQprbra80-08Xacqnwct Hospital Comment on above:Performed By: #### [id number], [id number], [id number] #### [facility] (DEFAULT) [address] [place] [address] 57361YZE (RBC) [Entitic vol]83 aTGjwrsp77-239Peimrkgo Hospital Comment on above:Performed By: #### [id number], 79266568, [id number] #### [facility] (DEFAULT) [address] [place] [address] 34182Ceofiwqp mean volume (Bld) [Entitic vol]10.8 fLHigh 6.3-10.2MSt. John of God HospitalComment on above:Performed By: #### [id number], 35463115, [id number] #### [facility] (DEFAULT) [address] [place] [address] 86864Ywallxmtn (Bld) [#/Vol]218 i89Fzzlgg925-602Pcblvdan HospitalComment on above:Performed By: #### [id number], 34476627, [id number] #### [facility] (DEFAULT) [address] [place] [address] 10993DJS (Bld) [#/Vol]4.47 l07Alokmb0.70-5.30[facility] Hospital Comment on above:Performed By: #### [id number], 17803776, [id number] #### [facility] (DEFAULT) [address] [place] [address] 34467DEX (Bld) [#/Vol]4.8 z03Bsigdo9.5-10.5[facility] Comment on above:Performed By: #### [id number], 83148534, [id number] #### [facility] (DEFAULT) [address] [place] [address] Ziofp0ec 11-33-0654AWJ (U) [#/Vol]None SeenNormal [facility] HospitalComment on above:Order Comment: Urinalysis Microscopic order added on by Immun[employer] Expert Rules system.Performed By: #### [id number], [id number], [id number] #### [facility] (DEFAULT) [address] [place] [address] 05689IO Bacteria2+NormalProvidence HospitalComment on above:Order Comment: Urinalysis Microscopic order added on by Immun[employer] Expert Rules system. Performed By: #### [id number], [id number], [id number] #### [facility] (DEFAULT) [address] [place] [address] 26919RA Squam EpiModerateNormalProvidence Hospital HospitalComment on above:Order Comment: Urinalysis Microscopic order added on by Immunov[employer] Expert Rules system.Performed By: #### [id number], [id number], [id number] #### [facility] (DEFAULT) [address] [place] [address] 05433OJ WBC3-5NormTuscarawas HospitalComment on above:Order Comment: Urinalysis Microscopic order added on by Immunovaccine Expert Rules system. Performed By: #### [id number], [id number], [id number] #### [facility] (DEFAULT) [address] [place], [place] [address]UA w Culture if Ind Standardon 16-98-2606Mgzplosaqq UA NormalMagruder HospitalComment on above:Performed By: #### [id number], [id number], [id number] #### [facility] (DEFAULT) [address] [place] [address] 45545Uubkf (U)YellowNormalMagruder HospitalComment on above: Performed By: #### [id number], [id number], [id number] #### [facility] (DEFAULT) [address] [place] [address] 91097Qesrrpd?YesNormalMagruder HospitalComment on above: Performed By: #### [id number], [id number], [id number] #### [facility] (DEFAULT) [address] [place] [address] 02629Bfpxftk (U) [Mass/Vol]NegativeNormalMagruder Hospital Comment on above:Performed By: #### [id number], [id number], [id number] #### [facility] (DEFAULT) [address] [place] [address] 27634Ycmtszr Ql (U)NegativeNormalMagruder HospitalComment on above:Performed By: #### [id number], [id number], [id number] #### [facility] (DEFAULT) [address] [place] [address] 47120Whfyo?IndicatedMagruder HospitalComment on above:Performed By: #### [id number], [id number], [id number] #### [facility] (DEFAULT) [address] [place] [address] 59652DF BilirubinNegativeNormalMagruder HospitalComment on above:Performed By: #### [id number], [id number], [id number] #### [facility] (DEFAULT) [address] [place] [address] 73675FP BloodNegativeNormalNEGATIVEMagruder HospitalComment on above:Performed By: #### [id number], [id number], [id number] #### [facility] (DEFAULT) [address] [place] [address] 98501JT ClaritySL CLOUDYAbnormalCLEARMauc [facility] hospital HospitalComment on above:Performed By: #### [id number], [id number], [id number] #### [facility] (DEFAULT) [address] [place] [address] 18989ID Leuk EstTRACEAbnormalNEGATIVEProvidence Hospital HospitalComment on above:Performed By: #### [id number], [id number], [id number] #### [facility] (DEFAULT) [address] [place] [address] 99068TM NitriteNegativeNormalNEGATIVEProvidence Hospital HospitalComment on above:Performed By: #### [id number], 42076234, [id number] #### [facility] (DEFAULT) [address] [place] [address] 62226GX pH6.8Xwaoyn7-0Racogqmf HospitalComment on above: Performed By: #### [id number], [id number], [id number] #### [facility] (DEFAULT) [address] [place] [address] 95247CQ ProteinNegativeNormalNEGATIVEProvidence Hospital HospitalComment on above:Performed By: #### [id number], [id number], [id number] #### [facility] (DEFAULT) [address] [place] [address] 61655KB Spec Grav1.968Zpqfxl8.001-1.035[facility] HospitalComment on above:Performed By: #### [id number], [id number], [id number] #### [facility] (DEFAULT) [address] [place] [address] 92307DW Urobilinogen0.2 mg/dLNormal0.2-1.0[facility] Hospital Comment on above:Performed By: #### [id number], 78718359, [id number] #### [facility] (DEFAULT) [address] [place] [address] 99970Mpcbv SourceClean CatchNormalProvidence Hospital HospitalComment on above:Performed By: #### [id number], [id number], [id number] #### [facility] (DEFAULT) [address] [place], [place] [address]QP Knee Complete Left Standingon 68-55-7277MQ Knee Complete Left StandingEXAM: XR Knee Complete [...] Signature): Hieu Mcpherson 02/08/20 3:02 pm Technologist: [facility] Vital Signs Date TimeVital SignValuePerforming BhlzxtjdiXguhovqn86-69-1638 12:26-0400 Diastolic blood mxncjwuc79 mm[Hg]Robert Ball DO Work Phone: [phone] [place], [place] 8574210-27-2025 12:26-0400 Heart rate71 /minBenjamin Ball DO Work Phone: [phone]10-27-2025 12:26-0400 SaO2% (BldA) [Mass fraction]98 %Robert Ball DO Work Phone: [phone] [place], [place] 8574210-27-2025 12:26-0400 Systolic blood rheghqyc574 mm[Hg]Robert Ball DO Work Phone: [phone])[phone] [place], [place] 8574209-15-2025 10:45-0400 Body qhkjyd615.4 cmBenjamin Ball DO Work Phone: [phone])[address]09-15-2025 10:45-0400 Body mass index (BMI) [Ratio]54.6 kg/f7Mvvaxome Ball DO Work Phone: 1(242)415-[address] [place], [place] 8574209-15-2025 10:45-0400 Body .77 kgBenjamin Ball DO Work Phone: 1(419)[address] [place], [place] 2760309-15-2025 10:45-0400 Diastolic blood sjviyijj71 mm[Hg]Robert Ball DO Work Phone: 1(419)[address] [place], [place] 2760309-15-2025 10:45-0400 Heart rate81 /minBenjamin Ball DO Work Phone: 1(419)[address] [place], [place] 2760309-15-2025 10:45-0400 Respiratory rate12 /minBenjamin Ball DO Work Phone: 1(419)[address] [place], [place] 2760309-15-2025 10:45-0400 Systolic blood keaflahb801 mm[Hg]Robert Ball DO Work Phone: 1(419)[address] [place], [place] 2760307-22-2025 14:12-0400 Body awixql363.4 cmBenjamin Ball DO Work Phone: 1(419)[address] [place], [place] 2760307-22-2025 14:12-0400 Body mass index (BMI) [Ratio]53.8 kg/f9Qdolijvx Ball DO Work Phone: 1(419)[address] [place], [place] 2760307-22-2025 14:12-0400 Body .19 kgBenjamin Ball DO Work Phone: 1(419)[address] [place], [place] 2760307-22-2025 14:12-0400 Diastolic blood wywrhyhr19 mm[Hg]Robert Ball DO Work Phone: 1(419)[address] [place], [place] 2760307-22-2025 14:12-0400 Heart rate76 /minBenjamin Ball DO Work Phone: 1(419)[facility] [place], [place] 8574207-22-2025 14:12-0400 Respiratory rate12 /minBenjamin Ball DO Work Phone: 1(419)[address] [place], [place] 2760307-22-2025 14:12-0400 Systolic blood ysqbjaaa115 mm[Hg]Robert Ball DO Work Phone: 1(419)[address] [place], [place] 2760307-18-2025 11:29-0400 Body uxuqnr685.4 cmBenjamin Ball DO Work Phone: 1(419)415-[address] [place], [place] 8574207-18-2025 11:29-0400 Body mass index (BMI) [Ratio]53.8 kg/j4Ksibokrw Ball DO Work Phone: [phone])[address] [place], [place] 2760307-18-2025 11:29-0400 Body qwlysjxdmpv58.4 [degF]Robert Ball DO Work Phone: [phone])[address] [place], [place] 2760307-18-2025 11:29-0400 Body oezaci302.19 kgBenjamin Ball DO Work Phone: [phone])[address] [place], [place] 2760307-18-2025 11:29-0400 Diastolic blood wsbigphn88 mm[Hg]Robert Ball DO Work Phone: 1(740)[address] [place], [place] 2760307-18-2025 11:29-0400 Heart rate82 /minBenjamin Ball DO Work Phone: 1(641)[address] [place], [place] 2760307-18-2025 11:29-0400 SaO2% (BldA) [Mass fraction]96 %Robert Ball DO Work Phone: [phone])[address] [place], [place] 2760307-18-2025 11:29-0400 Systolic blood yjzhcomc112 mm[Hg]Robert Ball DO Work Phone: 1(528)[address] [place], [place] 2760306-19-2025 12:03-0400 Body bkxoyu792.4 cmBenjamin Ball DO Work Phone: 1(923)[address] [place], [place] 2760306-19-2025 12:03-0400 Body mass index (BMI) [Ratio]53.3 kg/m7Yaogcekb Ball DO Work Phone: 1(617)[address] [place], [place] 2760306-19-2025 12:03-0400 Body .83 kgBenjamin Ball DO Work Phone: [phone])[address] [place], [place] 2760306-19-2025 12:03-0400 Diastolic blood mm[Hg]Robert Ball DO Work Phone: 1(838)[address] [place], [place] 2760306-19-2025 12:03-0400 Heart rate82 /minBenjamin Ball DO Work Phone: [facility]06-19-2025 12:03-0400 Respiratory rate12 /minBenjamin Ball DO Work Phone: [facility]06-19-2025 12:03-0400 Systolic blood mm[Hg]Robert Ball DO Work Phone: [facility]06-09-2025 13:26-0400 Body sunwgu313.4 cmW[facility]06-09-2025 13:26-0400Body mass index (BMI) [Ratio]53.3 kg/h9HqxwhjfrfWyandot Memorial Hospital06-09-2025 13:26-0400Body mozicx414.83 kgW[facility]andot [facility] Hospital06-09-2025 13:26-0400Diastolic blood uwwkxpty39 mm[Hg][facility] 05-06-2025 13:26-0400Heart rate77 /[facility] 05-06-2025 13:26-0400Respiratory rate12 /[facility] 05-06-2025 13:26-0400Systolic blood mjqwbyyq811 mm[Hg][facility]06-09-2025 12:07-0400Diastolic blood kvrhykta13 mm[Hg][facility]06-09-2025 12:07-0400Heart rate75 /[facility]06-09-2025 12:07-3708JkL2% (BldA) [Mass fraction]96 %[facility]06-09-2025 12:07-0400Systolic blood mm[Hg][facility]05-19-2025 13:57-0400Body gryyiv081.4 cmW[facility]andot [facility] Hospital05-19-2025 13:57-0400Body mass index (BMI) [Ratio]53.4 kg/j1WdkdjsywwWyandot Memorial Hospital05-19-2025 13:57-0400Body ykcamh483 kg [facility]05-19-2025 13:57-0400Diastolic blood bttenjug69 mm[Hg][facility]05-19-2025 13:57-0400Heart rate77 /min [facility]05-19-2025 13:57-0400Respiratory rate18 /min [facility]05-19-2025 13:57-7053UwC3% (BldA) [Mass fraction]98 %[facility]05-19-2025 13:57-0400Systolic blood zsebebes455 mm[Hg][facility]05-13-2025 10:22-0400 Body capnni961.4 cmW[facility]andot Memorial Hospital05-13-2025 10:22-0400Body mass index (BMI) [Ratio]53.6 kg/q2YeotglozlWyandot Memorial Hospital05-13-2025 10:22-0400Body taktgm901.45 kgWyandot Memorial Hospital05-13-2025 10:22-0400Diastolic blood iqfhyoru17 mm[Hg][facility] 04-09-2025 10:22-0400Heart rate92 /[facility] 04-09-2025 10:22-0400Respiratory rate12 /[facility] 04-09-2025 10:22-8530DpV3% (BldA) [Mass fraction]98 %[facility]05-13-2025 10:22-0400Systolic blood mm[Hg][facility]04-23-2025 13:29-0400Body fidbra913.4 cmBenjamin Ball DO Work Phone: [facility]04-23-2025 13:29-0400 Body mass index (BMI) [Ratio]53.6 kg/r1Bjacvhgh Ball DO Work Phone: [facility]04-23-2025 13:29-0400 Body yflgeq995.73 kgBenjamin Ball DO Work Phone: [facility]04-23-2025 13:29-0400 Diastolic blood aqvmmcmt67 mm[Hg]Robert Ball DO Work Phone: [facility]04-23-2025 13:29-0400 Heart rate88 /minBenjamin Ball DO Work Phone: 1(526)[facility] [place], [place] 8574204-23-2025 13:29-0400 SaO2% (BldA) [Mass fraction]97 %Robert Ball DO Work Phone: [phone])162-[address] [place], [place] 8574204-23-2025 13:29-0400 Systolic blood dgtfoily646 mm[Hg]Robert Ball DO Work Phone: 1419[facility] [place], [place] 8574204-01-2025 10:38-0400 Diastolic blood jdxkkhjy60 mm[Hg]Robert Ball DO Work Phone: 1(563)[address] [place], [place] 2760304-01-2025 10:38-0400 Heart rate73 /minBenjamin Ball DO Work Phone: 1(421)[address] [place], [place] 2760304-01-2025 10:38-0400 SaO2% (BldA) [Mass fraction]99 %Robert Ball DO Work Phone: 1(704)[address] [place], [place] 2760304-01-2025 10:38-0400 Systolic blood hipigxff795 mm[Hg]Robert Ball DO Work Phone: 1(393)[address] [place], [place] 2760302-19-2025 13:05-0500 Diastolic blood ebmnjmhf69 mm[Hg]Robert Ball DO Work Phone: 1(750)[address] [place], [place] 2760302-19-2025 13:05-0500 Heart rate76 /minBenjamin Ball DO Work Phone: 1(166)[address] [place], [place] 2760302-19-2025 13:05-0500 SaO2% (BldA) [Mass fraction]98 %Robert Ball DO Work Phone: 1(120)[address] [place], [place] 2760302-19-2025 13:05-0500 Systolic blood uadlppvi453 mm[Hg]Robert Ball DO Work Phone: [address] [place], [place] 2760302-07-2025 11:57-0500 Body qdsyew648.56 cmBenjamin Ball DO Work Phone: 1(780)[address] [place], [place] 2760302-07-2025 11:57-0500 Body mass index (BMI) [Ratio]48.1 kg/m4Vfdssfcm Ball DO Work Phone: 1419)[address] [place], [place] 2760302-07-2025 11:57-0500 Body qupyou908.14 kgBenjamin Ball DO Work Phone: 1419)[address] [place], [place] 2760302-07-2025 11:57-0500 Diastolic blood akjbbgjl87 mm[Hg]Robert Ball DO Work Phone: 1419)[address] [place], [place] 2760302-07-2025 11:57-0500 Heart rate96 /minBenjamin Ball DO Work Phone: 1419)[address] [place], [place] 2760302-07-2025 11:57-0500 Respiratory rate12 /minBenjamin Ball DO Work Phone: 1419)[address] [place], [place] 2760302-07-2025 11:57-0500 Systolic blood napqhjew426 mm[Hg]Robert Ball DO Work Phone: 1(621)[address] [place], [place] 2760301-29-2025 12:01-0500 Diastolic blood xyullrkp78 mm[Hg]Robert Ball DO Work Phone: 1(888)[address] [place], [place] 2760301-29-2025 12:01-0500 Heart rate70 /minBenjamin Ball DO Work Phone: 1(788)[address] [place], [place] 2760301-29-2025 12:01-0500 Respiratory rate16 /minBenjamin Ball DO Work Phone: 1(946)[address] [place], [place] 2760301-29-2025 12:01-0500 SaO2% (BldA) [Mass fraction]96 %Robert Ball DO Work Phone: 1(140)[address] [place], [place] 2760301-29-2025 12:01-0500 Systolic blood mm[Hg]Robert Ball DO Work Phone: 1(402)[address] [place], [place] 2760301-29-2025 11:26-0500 Inhaled oxygen flow rate4 L/minBenjamin Ball DO Work Phone: 1(661)[address] [place], [place] 2760301-29-2025 09:15-0500 Body .4 cmBenjamin Ball DO Work Phone: [facility]01-29-2025 09:15-0500 Body tlyevk099.46 kgBenjamin Ball DO Work Phone: [facility]01-15-2025 13:50-0500 Body .56 cmW[facility]01-15-2025 13:50-0500Body mass index (BMI) [Ratio]48.1 kg/a7DnrqiaikcWyandot Memorial Hospital01-15-2025 13:50-0500Body .26 kgWyandot Memorial Hospital01-15-2025 13:50-0500Diastolic blood hkakzmwx31 mm[Hg][facility] 12-12-2024 13:50-0500Heart rate89 /[facility] 12-12-2024 13:50-0500Respiratory rate16 /[facility] 12-12-2024 13:50-0500Systolic blood frhlabrg028 mm[Hg][facility]01-13-2025 13:38-0500Body .56 cmW[facility]01-13-2025 13:38-0500Body mass index (BMI) [Ratio]48.2 kg/v6NnhgpjtmrWyandot [facility] Hospital01-13-2025 13:38-0500Body yqnwfe010.45 kgW[facility]01-13-2025 13:38-0500Diastolic blood vrhuniuu69 mm[Hg] [facility]01-13-2025 13:38-0500Heart rate88 /[facility]01-13-2025 13:38-3420HsP7% (BldA) [Mass fraction]98 % [facility]01-13-2025 13:38-0500Systolic blood mm[Hg][facility]01-10-2025 11:02-0500Body yjirxg002.56 cm [facility]01-10-2025 11:02-0500Body mass index (BMI) [Ratio]48.3 kg/v6KtifwnrlnWyandot Memorial Hospital01-10-2025 11:02-0500Body zjyugv562.68 kgW[facility]andot [facility]01-10-2025 11:02-0500Diastolic blood mm[Hg][facility]01-10-2025 11:02-0500 Heart rate96 /[facility]01-10-2025 11:02-0500 Respiratory rate12 /[facility]01-10-2025 11:02-0500 Systolic blood scvdixnf368 mm[Hg][facility]10-08-2024 09:46-0400Diastolic blood jyombbqo14 mm[Hg]DO Robert Ball Work Phone: 1([phone])[address]10-08-2024 09:46-0400 Heart rate73 /minDO Robert Ball Work Phone: 1([phone])[address]10-08-2024 09:46-0400 SaO2% (BldA) [Mass fraction]97 %DO Robert Ball Work Phone: 1([phone])[address]10-08-2024 09:46-0400 Systolic blood hrdudmvp097 mm[Hg]DO Robert Ball Work Phone: 1([phone])[address]09-27-2024 11:03-0400 Heart rate97 /minDO Robert Ball Work Phone: [phone])[address]09-27-2024 11:03-0400 SaO2% (BldA) [Mass fraction]96 %DO Robert Ball Work Phone: 1([phone])[phone] [place], [place] 8574209-13-2024 14:18-0400 Diastolic blood ggdylqjx96 mm[Hg]DO Robert Ball Work Phone: 1(072)[address]09-13-2024 14:18-0400 Heart rate73 /minDO Robert Ball Work Phone: 1(878)079-[address] [place], [place] 8574209-13-2024 14:18-0400 Respiratory rate16 /minDO Robert Ball Work Phone: 1(821)481-[address] [place], [place] 8574209-13-2024 14:18-0400 SaO2% (BldA) [Mass fraction]98 %DO Robert Ball Work Phone: 1(915)022-[address] [place], [place] 8574209-13-2024 14:18-0400 Systolic blood yttpomkx469 mm[Hg]DO Robert Ball Work Phone: [phone])[address]09-13-2024 12:13-0400 Body rjbovf181.4 cmDO Robert Ball Work Phone: [phone])[address] [place], [place] 2760309-13-2024 12:13-0400 Body .2 kgDO Robert Ball Work Phone: [phone])[address] [place], [place] 2760309-09-2024 10:49-0400 Body ebpfzb932.4 cmDO Robert Ball Work Phone: [phone])[address] [place], [place] 2760309-09-2024 10:49-0400 Body mass index (BMI) [Ratio]54.5 kg/m2DO Robert Ball Work Phone: [phone])[address] [place], [place] 2760309-09-2024 10:49-0400 Body fulkrz310.6 kgDO Robert Ball Work Phone: 1(097)[address] [place], [place] 2760309-09-2024 10:49-0400 Diastolic blood vkrlxuan05 mm[Hg]DO Robert Ball Work Phone: 1(560)[address] [place], [place] 2760309-09-2024 10:49-0400 Heart rate65 /minDO Robert Ball Work Phone: 1(453)[address] [place], [place] 2760309-09-2024 10:49-0400 Respiratory rate12 /minDO Robert Ball Work Phone: 1(722)[address] [place], [place] 2760309-09-2024 10:49-0400 Systolic blood dorxehxb655 mm[Hg]DO Robert Ball Work Phone: 1(881)[address] [place], [place] 2760309-03-2024 11:13-0400 Diastolic blood jqserbbt62 mm[Hg]DO Robert Ball Work Phone: 1(479)[address] [place], [place] 2760309-03-2024 11:13-0400 Heart rate71 /minDO Robert Ball Work Phone: 1(080)[address] [place], [place] 2760309-03-2024 11:13-0400 SaO2% (BldA) [Mass fraction]97 %DO Robert Ball Work Phone: [phone]09-03-2024 11:13-0400 Systolic blood awplmdfl450 mm[Hg]DO Robert Ball Work Phone: [phone]07-01-2024 14:21-0400 Body upmxqp847.4 cmDO Robert Ball Work Phone: 1(537)247-[address] [place], [place] 8574207-01-2024 14:21-0400 Body mass index (BMI) [Ratio]52.1 kg/m2DO Robert Ball Work Phone: 1(693)[address]07-01-2024 14:21-0400 Body assphm280.1 kgDO Robert Ball Work Phone: [phone]07-01-2024 14:21-0400 Diastolic blood byoiaqfs18 mm[Hg]DO Robert Ball Work Phone: 1(315)221-[address] [place], [place] 8574207-01-2024 14:21-0400 Heart rate68 /minDO Robert Ball Work Phone: [phone]07-01-2024 14:21-0400 Respiratory rate18 /minDO Robert Ball Work Phone: [phone]07-01-2024 14:21-0400 SaO2% (BldA) [Mass fraction]98 %DO Robert Ball Work Phone: [phone]07-01-2024 14:21-0400 Systolic blood iishrfek182 mm[Hg]DO Robert Ball Work Phone: [phone]06-03-2024 15:05-0400 Diastolic blood mm[Hg][facility]06-03-2024 15:05-0400Heart rate98 /[facility]06-03-2024 15:05-6148DoD7% (BldA) [Mass fraction]97 %[facility] 04-30-2024 15:05-0400Systolic blood cjccrmip817 mm[Hg][facility]05-02-2024 10:44-0400Body afvagm087.4 cmW[facility] 03-29-2024 10:44-0400Body mass index (BMI) [Ratio]53.6 kg/j5QibrftstnW[facility]ot [facility]05-02-2024 10:44-0400Body terlxl037.45 kgW[facility]05-02-2024 10:44-0400Diastolic blood czrqkqof78 mm[Hg][facility]05-02-2024 10:44-0400Heart rate75 /[facility]05-02-2024 10:44-0400Respiratory rate16 /[facility]05-02-2024 10:44-0400Systolic blood euqgebqk754 mm[Hg][facility]03-20-2024 14:20-0400Body anrcpp807.4 cmDO Robert Ball Work Phone: [facility]03-20-2024 14:20-0400 Body mass index (BMI) [Ratio]53.1 kg/m2DO Robert Ball Work Phone: [facility]03-20-2024 14:20-0400 Body alloze994.37 kgDO Robert Ball Work Phone: [facility]03-20-2024 14:20-0400 Diastolic blood evxabuaj08 mm[Hg]DO Robert Ball Work Phone: [facility]03-20-2024 14:20-0400 Heart rate77 /minDO Robert Ball Work Phone: [facility]03-20-2024 14:20-0400 Respiratory rate16 /minDO Robert Ball Work Phone: [facility]03-20-2024 14:20-0400 Systolic blood iyynycde141 mm[Hg]DO Robert Ball Work Phone: [facility]10-25-2023 14:00-0400 Body mxqxqu299.4 cmBenjamin Ball Other [place] Other 10-25-2023 14:00-0400Body mass index (BMI) [Ratio] 52.69 kg/w0Gkzwrrun Ball Other [employer] Other 10-25-2023 14:00-0400Body bjdfqo842.38 kgBenjamin Ball Other [employer] [facility] Other 10-25-2023 14:00-0400Diastolic blood tnbinxwn53 mm[Hg] Robert Ball Other [employer] Other 10-25-2023 14:00-0400Respiratory rate20 /minBenjamin Ball Other [employer] Other 10-25-2023 14:00-0400Systolic blood drxoiarh339 mm[Hg] Robert Ball Other [employer] [facility] Other 09-18-2023 15:00-0400Body xoymrf786.4 cmBenjamin Ball Other [employer] Other 09-18-2023 15:00-0400Body mass index (BMI) [Ratio] 54.33 kg/f0Eermftwi Ball Other [employer] Other 09-18-2023 15:00-0400Body iemeqy845.19 kgBenjamin Ball Other [employer] Other 09-18-2023 15:00-0400Diastolic blood scgcherx29 mm[Hg] Robert Ball Other [employer] Other 09-18-2023 15:00-0400Respiratory rate16 /minBenjamin Ball Other [facility] Other 09-18-2023 15:00-0400Systolic blood mm[Hg] Robert Ball Other [employer] [facility] Other 08-14-2023 11:00-0400Body xuhvra170.4 cmBenjamin Ball Other [facility] Other 08-14-2023 11:00-0400Body mass index (BMI) [Ratio] 55.26 kg/n8Bwffcgzk Ball Other [employer] Other 08-14-2023 11:00-0400Body zaqbkc933.37 kgBenjamin Ball Other [facility] Other 08-14-2023 11:00-0400Diastolic blood mm[Hg] Robert Ball Other [employer] [facility] Other 08-14-2023 11:00-0400Respiratory rate16 /minBenjamin Ball Other [employer] Other 08-14-2023 11:00-0400Systolic blood tyvrocww752 mm[Hg] Robert Ball Other [employer] Other 06-28-2023 14:00-0400Body vyicwv998.4 cmBenjamin Ball Other [employer] Other 06-28-2023 14:00-0400Body mass index (BMI) [Ratio] 54.25 kg/r4Xowetsgy Ball Other [employer] Other 06-28-2023 14:00-0400Body nbowfu728.01 kgBenjamin Ball Other [employer] Other 06-28-2023 14:00-0400Diastolic blood hvgvweuu50 mm[Hg] Robert Ball Other [employer] Other 06-28-2023 14:00-0400Respiratory rate16 /minBenjamin Ball Other [employer] Other 06-28-2023 14:00-0400Systolic blood cevciiit657 mm[Hg] Robert Ball Other [employer] Other 05-12-2023 12:15-0400Body idxxei455.4 cmBenjamin Ball Other [employer] Other 05-12-2023 12:15-0400Body mass index (BMI) [Ratio] 53.84 kg/z4Wyulqavx Ball Other [employer] Other 05-12-2023 12:15-0400Body ydehyg381.06 kgBenjamin Ball Other [employer] Other 05-12-2023 12:15-0400Diastolic blood ifeugpgj16 mm[Hg] Robert Ball Other [employer] Other 05-12-2023 12:15-0400Respiratory rate12 /minBenjamin Ball Other [employer] Other 05-12-2023 12:15-0400Systolic blood txycvrwr248 mm[Hg] Robert Ball Other [employer] Other 04-26-2023 14:30-0400Body .4 cmBenjamin Ball Other [employer] Other 04-26-2023 14:30-0400Body mass index (BMI) [Ratio] 53.82 kg/u0Cchpqqhu Ball Other [employer] Other 04-26-2023 14:30-0400Body ockwsl665.01 kgBenjamin Ball Other [employer] Other 04-26-2023 14:30-0400Diastolic blood pvzgymxr22 mm[Hg] Robert Ball Other [employer] Other 04-26-2023 14:30-0400Respiratory rate12 /minBenjamin Ball Other [employer] Other 04-26-2023 14:30-0400Systolic blood eapdcabv151 mm[Hg] Robert Ball Other [employer] Other 04-05-2023 12:00-0400Body wpdgsa483.4 cmBenjamin Ball Other [employer] Other 04-05-2023 12:00-0400Body mass index (BMI) [Ratio] 54.01 kg/k1Wpjpyjrw Ball Other [employer] Other 04-05-2023 12:00-0400Body ekytzo473.47 kgBenjamin Ball Other [employer] Other 04-05-2023 12:00-0400Diastolic blood yjccnuia03 mm[Hg] Robert Ball Other [employer] Other 04-05-2023 12:00-0400Respiratory rate12 /minBenjamin Ball Other [facility] Other 04-05-2023 12:00-0400Systolic blood zgfwcfaz203 mm[Hg] Robert Ball Other [facility] Other 03-20-2023 14:15-0400Body .4 cmSherif Emelyn Other [place] Other 03-20-2023 14:15-2678XpB2% (BldA) [Mass fraction]98 % Michael Dunaway Other [facility] Other 03-02-2023 15:00-0500Body .4 cmSif Emelyn Other [place] [place] [facility] Other 03-02-2023 15:00-0500Diastolic blood cuecfwzc64 mm[Hg] Michael Dunaway Other [employer] Other 03-02-2023 15:00-5261NiU7% (BldA) [Mass fraction]98 % [facility] Other 03-02-2023 15:00-0500Systolic blood czzmcguc184 mm[Hg] Michael Dunaway Other [employer] Other 02-03-2023 12:30-0500Body jgbzez432.4 cmSherif Emelyn Other [employer] Other 02-03-2023 12:30-8990FqL1% (BldA) [Mass fraction]96 % Michael Dunaway Other [employer] Other 01-30-2023 11:15-0500Body byviyb015.4 cmIvon Batista Other [employer] Other 01-30-2023 11:15-0500Body mass index (BMI) [Ratio] 53.08 kg/i2KtyipwIvon Batista Other [employer] Other 01-30-2023 11:15-0500Body roakgywvxju61 [degF]Ivon Eusebio Other [employer] Other 01-30-2023 11:15-0500Body emunsq486.29 kgIvon Eusebio Other [employer] Other 01-30-2023 11:15-0500Diastolic blood gqnciosd86 mm[Hg] Ivon Batista Other [employer] Other 01-30-2023 11:15-6377KdO1% (BldA) [Mass fraction]96 % Ivon Batista Other [employer] Other 01-30-2023 11:15-0500Systolic blood sdfsyvpm890 mm[Hg] Ivon Batista Other [employer] Other 01-05-2023 11:45-0500Body kqoufi712.4 cmPegvishal Velarde Other [employer] Other 01-05-2023 11:45-0500Diastolic blood nsvxgepv56 mm[Hg] Ursula Velarde Other [employer] Other 01-05-2023 11:45-7345FiG9% (BldA) [Mass fraction]97 % Ursula Velarde Other [facility] Other 01-05-2023 11:45-0500Systolic blood osdftkrr149 mm[Hg] Ursula Velarde Other [facility] Other 12-06-2022 12:15-0500Body styavn030.4 cmSraúl Dunaway Other [facility] Other 12-06-2022 12:15-0500Diastolic blood qzahskde55 mm[Hg] Michael Dunaway Other [facility] Other 12-06-2022 12:15-7608JpF0% (BldA) [Mass fraction]98 % Michael Dunaway Other [facility] Other 12-06-2022 12:15-0500Systolic blood gdpfjdvy803 mm[Hg] Michael Dunaway Other [place] [place] [facility] Other 10-15-2022 11:55-0400Body wvqekf197.4 Mariam Foy Other [facility] Other 10-15-2022 11:55-0400Body mass index (BMI) [Ratio] 50.77 kg/z4YvfwfKaitlynn Foy Other [facility] Other 10-15-2022 11:55-0400Body gjlohbgohyo30.8 [degF]Kaitlynn Foy Other [facility] Other 10-15-2022 11:55-0400Body oklvzh237.94 kgKaitlynn oFy Other [place] [facility] Other 10-15-2022 11:55-0400Respiratory rate18 /minAmber Law Other [facility] Other 10-15-2022 11:55-0482HiY8% (BldA) [Mass fraction]97 % Kaitlynn Law Other [facility] Other 10-14-2022 12:30-0400Body rnwbom212.4 cmSherif Emelyn Other [employer] Other 10-14-2022 12:30-0400Diastolic blood ootanypj20 mm[Hg] Michael Emelyn Other [employer] Other 10-14-2022 12:30-1670OfH0% (BldA) [Mass fraction]99 % Michaelrancho Dunaway Other [employer] Other 10-14-2022 12:30-0400Systolic blood qahlgalb267 mm[Hg] Michael Emelyn Other [employer] Other 09-01-2022 17:45-0400Body .4 cmSherif Emelyn Other [employer] Other 09-01-2022 17:45-0400Diastolic blood mm[Hg] Michael Emelyn Other [employer] Other 09-01-2022 17:45-6473BeX7% (BldA) [Mass fraction]99 % Michael Emelyn Other [employer] Other 09-01-2022 17:45-0400Systolic blood lpwzzefa988 mm[Hg] Michael Anthonyky Other [facility] Other 08-05-2022 13:00-0400Body cxehvu038.4 cmSraúl Dunaway Other [facility] Other 08-05-2022 13:00-0400Body mass index (BMI) [Ratio] 53.97 kg/g9XitotzMichael Dunaway Other [place] [facility] Other 08-05-2022 13:00-0400Body kraege641.38 kgEvanseduardkash Dunaway Other [place] [facility] Other 08-05-2022 13:00-0400Diastolic blood mzborlns66 mm[Hg] Michael Emelyn Other [facility] Other 08-05-2022 13:00-6803MvO7% (BldA) [Mass fraction]97 % Michael Emelyn Other [facility] [facility] Other 08-05-2022 13:00-0400Systolic blood rqirqigb866 mm[Hg] Michael Dunaway Other [facility] Other 07-27-2022 12:52-0400Diastolic blood rfirejoq60 mm[Hg] DO Robert Ball Work Phone: [facility]07-27-2022 12:52-0400 Heart rate73 /minDO Robert Ball Work Phone: [facility]07-27-2022 12:52-0400 Respiratory rate20 /minDO Robert Ball Work Phone: [facility]07-27-2022 12:52-0400 SaO2% (BldA) [Mass fraction]97 %DO hoohbe Work Phone: [facility]07-27-2022 12:52-0400 Systolic blood mm[Hg]DO Robert Veoh Work Phone: [facility]07-27-2022 12:16-0400 Inhaled oxygen flow rate3 L/minDO Robert Veoh Work Phone: [facility]07-27-2022 10:24-0400 Body .4 cmDO Robert Veoh Work Phone: [facility]07-27-2022 10:24-0400 Body .37 kgDO Robert Veoh Work Phone: [facility]07-22-2022 12:15-0400 Body .4 cmSraúl Dunaway Other [facility] Other 07-22-2022 12:15-0400Body mass index (BMI) [Ratio] 53.19 kg/g4Uoyvoxsunni Dunaway Other [facility] Other 07-22-2022 12:15-0400Body eebeyq434.56 kgSheduardkash Emelyn Other [facility] Other 07-22-2022 12:15-0400Diastolic blood outyemno15 mm[Hg] Michael Dunaway Other [employer] Other 07-22-2022 12:15-8545NkI4% (BldA) [Mass fraction]96 % Michael Dunaway [facility] Other 07-22-2022 12:15-0400Systolic blood qlyawniq140 mm[Hg] Michael Dunaway Other [facility] Other 06-08-2022 06:31-0400Body jzbbet679.4 cmDO Robert Veoh Work Phone: [facility]06-08-2022 06:31-0400 Body mass index (BMI) [Ratio]51.7 kg/m2DO Robert Veoh Work Phone: [facility]06-08-2022 06:31-0400 Body ujsayr002.2 kgDO Robert Veoh Work Phone: [facility]04-14-2022 17:15-0400 Body mvxmeq034.4 cmSraúl Dunaway Other [facility] [place] [facility] Other 04-14-2022 17:15-0400Diastolic blood cyrythef40 mm[Hg] Michael Dunaway Other [facility] Other 04-14-2022 17:15-0359LmH8% (BldA) [Mass fraction]98 % Michael Dunaway Other [facility] Other 04-14-2022 17:15-0400Systolic blood naduosrz331 mm[Hg] Michael Dunaway Other [facility] Other 04-07-2022 09:59-0400Blood Pressure LocationMichael NILL [phone]-[facility]ib[facility] [place] 04-07-2022 09:59-0400Diastolic blood vivgpfts77 mm[Hg] Taye NILL [phone]-XnmwrBarnesville Hospital [facility] [place] 04-07-2022 09:59-0400Heart rate72 /minMichael NILL [phone]-UqfpzBarnesville Hospital [facility] [place] 04-07-2022 09:59-0400Respiratory rate20 /minMichael NILL [phone]-NzwqbBarnesville Hospital [facility] [place] 04-07-2022 09:59-0400Systolic blood gjajzcss594 mm[Hg] Taye MUROL [phone]-QnapcTri[facility] [place] 03-24-2022 17:00-0400Body vmmeej105.4 cmSraúl Dunaway Other [employer] Other 03-24-2022 17:00-0400Body mass index (BMI) [Ratio] 53.51 kg/z6KhakqhMichael Dunaway Other [facility] Other 03-24-2022 17:00-0400Body .29 kgShsunni Dunaway Other [facility] Other 03-24-2022 17:00-0400Diastolic blood dyeknmyp46 mm[Hg] Michael Dunaway Other [facility] Other 03-24-2022 17:00-4224CfB5% (BldA) [Mass fraction]94 % Michael Dunaway Other [employer] Other 03-24-2022 17:00-0400Systolic blood mlxgsvyf476 mm[Hg] Michael Dunaway Other [employer] Other 03-03-2022 17:00-0500Body negmld287.4 cmDale Batista Other [employer] Other 03-03-2022 17:00-0500Body mass index (BMI) [Ratio] 50.38 kg/m2Dale Batista Other [employer] Other 03-03-2022 17:00-0500Body eelbvp281.03 kgDale Batista Other [employer] Other 2021 12:20-0500Body egzxlz640.4 cmPamela Iris Other [employer] Other 2021 12:20-0500Body mass index (BMI) [Ratio] 50.38 kg/l0Erppcg Iris Other [employer] Other 2021 12:20-0500Body .9 [degF]Quita Iris Other [employer] Other 2021 12:20-0500Body lyerxb305.03 kgPajimena Simmons Other [employer] Other 2021 12:20-0500Diastolic blood mm[Hg] Quita Iris Other [employer] Other 2021 12:20-0500Respiratory rate18 /minPaalyssaa Iris Other [employer] Other 2021 12:20-4672EjU9% (BldA) [Mass fraction]96 % Quita Iris Other [employer] Other 2021 12:20-0500Systolic blood mm[Hg] Quita Simmons Other [facility] [place] [facility] Other Encounters Encounter DateEncounter TypeCare ProviderFacilityStart: 09-23-2025 End: 26-70-0203grtcvlihkqHujgpniv Ball DO Work Phone: [phone]-Yrijqgvkt Health Pain MgmtStart: 09-23-2025 End: 61-53-3020Ixxtbvr encounter procedureSraúl Dunaway MD-[facility] Work Phone: Start: 08-12-2025 End: 87-87-9895dfbqqfxdcbKocpdwie Ball DO Work Phone: [facility] Work Phone: Start: 08-12-2025 End: 57-55-9152Zksbufy encounter procedureBenjamin Ball DO-[facility] Work Phone: Start: 06-18-2025 End: 02-90-3528wrszzjrcutRlxvmoph Ball DO Work Phone: [facility] Work Phone: Start: 06-18-2025 End: 29-71-2338Pnnxgyk encounter procedureBenjamin Ball DO-[facility] Work Phone: Start: 06-14-2025 End: 84-04-5424ywwjutopurZdilpwnt Ball DO Work Phone: [facility] Work Phone: Start: 06-14-2025 End: 47-06-7046Wqjuhqz encounter procedureMorena Donato APRN LOG ROPER-[facility] Work Phone: Start: 05-16-2025 End: 96-80-7349Rxxktoj encounter procedureBenjamin Ball DO-[facility] Work Phone: Start: 05-09-2025 End: 76-75-1774Kppowd flowsheetSammantha Harper PTNOMS CI PTStart: 05-09-2025 End: 51-07-6930Cqtorp flowsheetSammantha Harper PTNOMS CI PTStart: 05-09-2025 End: 84-55-3125vkbupoeexgTawecrhdt Harper PTNOMS CI PTComment on above:Low back pain, unspecified back pain laterality, unspecified chronicity, unspecified whether sciatica present (Primary Dx)Start: 05-07-2025 End: 85-75-8074Zkhify Kathy Loco PTANO CI PTStart: 05-07-2025 End: 88-12-6452Xurvup Kathy Loco PTANO CI PTStart: 05-07-2025 End: 35-39-1643twbyozbihmJzwfafd Lawrence PTANO CI PTComment on above:Low back pain, unspecified back pain laterality, unspecified chronicity, unspecified whether sciatica present (Primary Dx)Start: 05-06-2025 End: 08-04-1697frevqfzcpnQyafdhdsoHighland District Hospital Work Phone: Start: 05-06-2025 End: 39-76-3518Eoqrczy encounter procedureNov[facility] Work Phone: Start: 05-06-2025 End: 72-66-7702bobkjhpfuiZbfkipeucHighland District Hospital Work Phone: Start: 05-06-2025 End: 86-72-8963Hklqlow encounter procedureNov[facility] Work Phone: Start: 05-03-2025 End: 32-40-2680Poeest flowsheetSammantha Harper PTNOMS CI PTStart: 05-03-2025 End: 35-24-8092Ufrshz flowsheetSammantha Harper PTNOMS CI PTStart: 05-03-2025 End: 01-50-0747gwmlmxcufdEknjanhti Harper PTNOMS CI PTComment on above:Low back pain, unspecified back pain laterality, unspecified chronicity, unspecified whether sciatica present (Primary Dx)Start: 04-30-2025 End: 45-01-5085Rrppbu Kathy STACK CI PTStart: 04-30-2025 End: 73-64-4991Slgilx Kathy STACK CI PTStart: 04-30-2025 End: 09-45-2298provoflvuyMGSOTUADesi HOLLOWAY HealthcareComment on above:Low back pain, unspecified back pain laterality, unspecified chronicity, unspecified whether sciatica present (Primary Dx)Start: 04-26-2025 End: 61-92-2897Beynck Kathy STACK CI PTStart: 04-26-2025 End: 41-91-6943Aiikzn Kathy STACK CI PTStart: 04-26-2025 End: 39-57-6219imdlmjuxfsMujakdpDesi STACK CI PTComment on above:Low back pain, unspecified back pain laterality, unspecified chronicity, unspecified whether sciatica present (Primary Dx)Start: 04-23-2025 End: 49-59-6855obghatoxvrLkhnscaDesi STACK CI PTComment on above:Low back pain, unspecified back pain laterality, unspecified chronicity, unspecified whether sciatica present (Primary Dx)Start: 04-23-2025 End: 83-73-5060Pimwbu Kathy STACK CI PTStart: 04-23-2025 End: 27-48-8874Zfhfnu Kathy STACK CI PTStart: 04-19-2025 End: 81-58-6360utlooqrjthNUPKAFDVH SCHNEIDERNot AvailableStart: 21-25-6423Kki- patient / Non-visitNov[facility] Work Phone: Start: 04-15-2025 End: 27-40-9568Lyurbq miriheetSbob Harper PTNOMS CI PTStart: 04-15-2025 End: 35-52-7996Ywintr miriheetSbob Harper PTNOMS CI PTStart: 04-15-2025 End: 71-77-3078Rfotdjr encounter procedureNovant Health [facility] GroupUn[facility] Work Phone: Start: 04-15-2025 End: 92-79-7461iwsgrvscnfXhiuyleao Harper PTNOMS CI PTComment on above:Low back pain, unspecified back pain laterality, unspecified chronicity, unspecified whether sciatica present (Primary Dx)Start: 04-11-2025 End: 12-87-8776Uommfr flowsheetSammantha Harper PTNOMS CI PTStart: 04-11-2025 End: 13-77-2816Ocjgvq flowsheetSammantha Harper PTNOMS CI PTStart: 04-11-2025 End: 80-56-6755yjwqvfptswGkkvhdlxn Harper PTNOMS CI PTComment on above:Low back pain, unspecified back pain laterality, unspecified chronicity, unspecified whether sciatica present (Primary Dx)Start: 04-09-2025 End: 99-69-9155vipjpvhrhbMtguvwpckHighland District Hospital Work Phone: Start: 04-09-2025 End: 52-39-2100Dcbtuuy encounter procedureNov[facility] Phys[facility] Work Phone: Start: 04-04-2025 End: 77-27-3380rqprtvrdezCgsdqqw Lawrence KODAKNO CI PTComment on above:Low back pain, unspecified back pain laterality, unspecified chronicity, unspecified whether sciatica present (Primary Dx)Start: 04-04-2025 End: 21-00-4082Gemkbe Michellegrecia Loco KODAKNO CI PTStart: 04-04-2025 End: 31-29-9693Azmrgv Michellegrecia Xiao CANDELARIONO CI PTStart: 04-01-2025 End: 38-00-3952nrhxhsteusRgzgnjfsj Schneider PTNOMS CI PTComment on above:Low back pain, unspecified back pain laterality, unspecified chronicity, unspecified whether sciatica present (Primary Dx)Start: 03-28-2025 End: 99-14-0771remzqcfpudGqgdjozqrHighland District Hospital Work Phone: Start: 03-28-2025 End: 86-77-5604Ldzmxqi [facility]Indian [facility] Work Phone: Start: 03-21-2025 End: 10-80-6196Cjgsim flowsheetSammantha Harper PTNOMS CI PTStart: 03-21-2025 End: 94-72-3520Oksryj flowsheetSammantha Harper PTNOMS CI PTStart: 03-21-2025 End: 03-33-9265urociyaasvLmusnyklr Harper PTNOMS CI PTComment on above:Low back pain, unspecified back pain laterality, unspecified chronicity, unspecified whether sciatica present (Primary Dx)Start: 03-20-2025 End: 31-49-1798cscroiumhzOvpdqrcr Ball DO Work Phone: [facility] Work Phone: start: 03-20-2025 End: 31-11-7918Emnsfst encounter procedureBenjamin Ball DO Work Phone: [facility] Physician [facility] Work Phone: Start: 03-14-2025 End: 76-20-1082Ezfsui flowsheetSammantha Harper PTNOMS CI PTStart: 03-14-2025 End: 30-59-0535Fauopo flowsheetSammantha Harper PTNOMS CI PTStart: 03-14-2025 End: 82-11-9125eoxlzrpsdeXqesjkmcd Harper PTNOMS CI PTComment on above:Low back pain, unspecified back pain laterality, unspecified chronicity, unspecified whether sciatica present (Primary Dx)Start: 03-12-2025 End: 46-98-4191fvkkcpulvaRlfotxel Ball DO Work Phone: [facility] Work Phone: start: 03-12-2025 End: 35-25-8966Wwnipxy encounter procedureBenjamin Ball DO Work Phone: [facility] Work Phone: Start: 05-78-1952Frl-patient / Non-visitBenjamin Ball DO Work Phone: [facility] Work Phone: Start: 02-28-2025 End: 00-27-5362Xuglrr flowsheetSammantha Harper PTNOMS CI PTStart: 02-28-2025 End: 32-33-2597Nikris flowsheetSammantha Harper PTNOMS CI PTStart: 02-28-2025 End: 89-27-0647nskxdqxlkzTtgeicqac Harper PTNOMS CI PTComment on above:Low back pain, unspecified back pain laterality, unspecified chronicity, unspecified whether sciatica present (Primary Dx)Start: 02-26-2025 End: 11-74-3129hmnagopyylRnxfito R NILLFacility: [place]vueStart: 02-26-2025 End: 08-39-3900ynxfivrgofPnrndlbp Ball DO Work Phone: [facility] Work Phone: Start: 02-26-2025 End: 73-98-3704Rfpbrgd encounter procedureBenjamin Ball DO Work Phone: [facility] Work Phone: Start: 02-25-2025 End: 14-37-3375Ynqxhv flowsheetMelissa Kelbley PTANOMS CI PTStart: 02-25-2025 End: 57-63-1315Xbsjga flowsheetMelissa Kelbley PTANOMS CI PTStart: 02-25-2025 End: 30-15-6228mcmdzgizjgHdhlkag Kelbley PTANOMS CI PTComment on above:Low back pain, unspecified back pain laterality, unspecified chronicity, unspecified whether sciatica present (Primary Dx)Start: 30-01-4922nefycduizvAwkbmpg NILL Facility: [place]vueStart: 02-20-2025 End: 36-18-7150Bunwks flowsheetMelissa Kelbley PTANOMS CI PTStart: 02-20-2025 End: 84-09-7438Bropxx flowsheetMelissa Kelbley PTANOMS CI PTStart: 02-20-2025 End: 54-98-5121llajrbasvvJjhwuxw Kelbley PTANOMS CI PTComment on above:Low back pain, unspecified back pain laterality, unspecified chronicity, unspecified whether sciatica present (Primary Dx)Start: 21-27-1395Ewa-patient / Non-visit Robert Vail DO Work Phone: [facility] Work Phone: Start: 02-14-2025 End: 54-95-5628ceqolnlhceYijwijqx Ball DO Work Phone: [facility] Work Phone: Start: 02-14-2025 End: 43-52-4261Adqvjav encounter procedureBenmeagan Ball DO Work Phone: [facility] Work Phone: Start: 02-13-2025 End: 89-37-4587pqosgwldzjRAUMMVP LAWRENCENot AvailableStart: 02-07-2025 End: 68-11-5181Ocmvyo flowsheetMelissa Kelbley PTANOMS CI PTStart: 02-07-2025 End: 84-12-6541Xcskdo flowsheetMelissa Kelbley PTANOMS CI PTStart: 02-07-2025 End: 52-91-4873mdcrjfyccyZhkbgwt Kelbley PTANOMS CI PTComment on above:Low back pain, unspecified back pain laterality, unspecified chronicity, unspecified whether sciatica present (Primary Dx)Start: 02-04-2025 End: 07-60-7242qxcozyxurlPBFZTNU KELBLEYNot AvailableStart: 01-28-2025 End: 19-79-3286Csvcgdotv encounterSammantha Leroy PTNOMS CI PTComment on above:Cx PT 01/28/25Start: 01-23-2025 End: 94-70-8355Vshxfr flowsheetSammantha Leroy PTNOMS CI PTStart: 01-23-2025 End: 63-39-6150Quhuzk flowsheetSammantha Harper PTNOMS CI PTStart: 01-23-2025 End: 59-46-5262asymvqnrzvNcyjjodpd Harper PTNOMS CI PTComment on above:Low back pain, unspecified back pain laterality, unspecified chronicity, unspecified whether sciatica present (Primary Dx)Start: 01-21-2025 End: 83-39-9353jtayesdlqxQwzojgkDesi Loco PTANOMS CI PTComment on above:Low back pain, unspecified back pain laterality, unspecified chronicity, unspecified whether sciatica present (Primary Dx)Start: 01-21-2025 End: 88-47-1257Pkxblb flowsNolvia Loco PTANOMS CI PTStart: 01-21-2025 End: 73-09-9774Igonhl Kahty Loco PTANOMS CI PTStart: 01-17-2025 End: 76-27-6105Bsfjha Kathy Loco PTANOMS CI PTStart: 01-17-2025 End: 08-98-9786Imkqex Kathy Loco PTANOMS CI PTStart: 01-17-2025 End: 13-36-9450vpyfjzjlueEbynipc Lawrence PTANOMS CI PTComment on above:Low back pain, unspecified back pain laterality, unspecified chronicity, unspecified whether sciatica present (Primary Dx)Start: 01-16-2025 End: 53-07-3453xwbjgmoigoMetwenfz Ball DO Work Phone: [facility] Work Phone: Start: 01-16-2025 End: 17-40-1636Wgzpfqd encounter procedureBenjamin Ball DO Work Phone: [facility] Work Phone: Start: 01-14-2025 End: 02-00-4472Aiioou flowsheetSammantha Harper PTNOMS CI PTStart: 01-14-2025 End: 18-28-7051Cphpvg flowsheetSammantha Harper PTNOMS CI PTStart: 01-14-2025 End: 56-13-1218jeglcdantkLkbpfwjxx Harper PTNOMS CI PTComment on above:Low back pain, unspecified back pain laterality, unspecified chronicity, unspecified whether sciatica present (Primary Dx)Start: 01-04-2025 End: 39-72-0724klmmpmoconRzogllml Ball DO Work Phone: [facility] Work Phone: Start: 01-04-2025 End: 98-55-8420Fvfqqtc encounter procedureBenjamin Ball DO Work Phone: [facility] Work Phone: Start: 25-66-5617Wiq-patient / Non-visitBenjamin Ball DO Work Phone: [facility] Physician [facility] Work Phone: Start: 12-26-2024 End: 26-90-9386Djbsdzfwc to same day surgery centerBenjocemin Ball DO Work Phone: [facility] Work Phone: Start: 12-26-2024 End: 26-93-7907aquoxungfuHivtmcaw Ball DO Work Phone: [facility] Work Phone: Start: 12-24-2024 End: 98-82-3007kdxkucryfqAfhwrsvk Ball DO Work Phone: [facility] Work Phone: Start: 12-24-2024 End: 32-92-8683Cbsigpd encounter procedureBenjamin Ball DO Work Phone: [facility] [place] Work Phone: Start: 12-12-2024 End: 64-67-6826grnzrqjvulGkqppxuhnTrinity [facility] Work Phone: Start: 12-12-2024 End: 15-23-5969Fkwbemp encounter procedureNov[facility] Work Phone: Start: 68-83-6225Zyy-patient / Non-visitFirelbert Physician Group-[facility] Work Phone: Start: 12-10-2024 End: 13-40-7006wlklxagbklRdxcbhwehOhioHealth [facility] Work Phone: Start: 12-10-2024 End: 19-40-7160Rjjpand encounter procedureNov[facility] Work Phone: Start: 12-07-2024 End: 97-23-3849kcvomzvybgKblsbaxmjOhioHealth Pickerington [facility] Work Phone: Start: 12-07-2024 End: 63-81-6569Egijaxr encounter procedureNovant [facility] Work Phone: start: 09-04-2024 End: 61-96-0616sapxmigchaCN [facility] Work Phone: [facility] Work Phone: Start: 09-04-2024 End: 65-05-1599Fjibyyv encounter procedureDO [facility] Work Phone: [facility] Pain [facility] Work Phone: Start: 08-28-2024 End: 02-29-5183mjvuuprrdiKQ [facility] Work Phone: [facility] Work Phone: Start: 08-28-2024 End: 44-01-9173Hlidyxb encounter procedureDO Robert Vail Work Phone: [facility] Work Phone: Start: 19-04-4183Hjh-patient / Non-visitDO Robert Vail Work Phone: [facility] Work Phone: Start: 08-24-2024 End: 40-43-0288jrkadnfvytUN Robert Vail Work Phone: [facility] Work Phone: Start: 08-24-2024 End: 92-17-1288Clnxsuh encounter procedureDO Robert Vail Work Phone: [facility] Work Phone: Start: 44-05-9335Cxi-patient / Non-visitDO Robert Vail Work Phone: [facility] Work Phone: Start: 08-10-2024 End: 27-37-9593Azasucsxb to same day surgery centerDO Robert Vail Work Phone: [facility] Work Phone: Start: 08-10-2024 End: 83-40-8699xeqhavelafLJ Robert Vail Work Phone: [facility] Work Phone: Start: 08-09-2024 End: 03-66-9804Juvmiba encounter procedureDO Robert Vail Work Phone: [facility] [place] Work Phone: Start: 08-09-2024 End: 55-86-2233vvrzryeknfRF Robert Vail Work Phone: [facility] Work Phone: Start: 08-06-2024 End: 77-73-9926mguxfhnywgBH Robert Vail Work Phone: [facility] Work Phone: Start: 08-06-2024 End: 73-73-5603Kalhoix encounter procedureDO Robert Vail Work Phone: [facility] Work Phone: Start: 07-31-2024 End: 20-15-8576kfpvhskbyyIO Robert Vail Work Phone: [facility] Work Phone: Start: 07-31-2024 End: 86-25-3545Ejaawiv encounter procedureDO Robert Vail Work Phone: [facility] Work Phone: Start: 06-15-2024 End: 93-79-7704Ooedpko encounter procedureDO Robert Vail Work Phone: [facility] [place] Work Phone: Start: 06-15-2024 End: 14-49-7172erkneggakiMI Robert Vail Work Phone: [facility] Work Phone: Start: 05-28-2024 End: 81-13-1013qmevqudsvrFT Robert Vail Work Phone: [facility] Work Phone: Start: 05-28-2024 End: 42-08-7403Frvkjdf encounter procedureDO Robert Vail Work Phone: [facility] Work Phone: Start: 68-00-9911Hpz-patient / Non-visitDO Robert Vail Work Phone: [facility] Group-[facility] Work Phone: Start: 05-10-2024 End: 97-92-7954mqazlvddbpNR Robert Vail Work Phone: [facility] Work Phone: Start: 05-10-2024 End: 40-13-9637Cfjzvpt encounter procedureDO Robert Vail Work Phone: [facility] Physician Group-[facility] Work Phone: Start: 33-66-1096Tbt-patient / Non-visitDO Robert Vail Work Phone: [facility] Work Phone: Start: 05-09-2024 End: 29-42-7563dvdzbntcviNG Robert Vail Work Phone: [facility] Work Phone: Start: 05-09-2024 End: 58-56-4011Hgpyzqm encounter procedureDO Robert Vail Work Phone: [facility] [place] Work Phone: Start: 05-07-2024 End: 05-97-4359Wgseqnj encounter procedureDO Robert Vail Work Phone: [facility] [place] Work Phone: Start: 05-07-2024 End: 25-94-5752qbyhsgtaasNQ Robert Vail Work Phone: [facility] Work Phone: Start: 04-30-2024 End: 46-17-5396vocnedvtxoTzqshhkli [facility] Work Phone: Start: 04-30-2024 End: 19-35-8711Sfvgmgz encounter procedureFirelberts Physician Group-[facility] Pain Management Work Phone: Start: 16-51-0091Xvt-patient / Non-visitFirelands Physician Group-[facility] Work Phone: Start: 03-29-2024 End: 45-91-9371Ejjyfbu encounter procedureFirelands Physician Group-[facility] Work Phone: Start: 58-59-3561Oyz-patient / Non-visitFirelands Physician Group-[facility] Work Phone: Start: 02-15-2024 End: 44-14-9451mrnkojuxfaGV Robert Vail Work Phone: [facility] Work Phone: Start: 02-15-2024 End: 84-17-9696Prmcoke encounter procedureDO Robert Vail Work Phone: [facility] Work Phone: Start: 01-12-2024 End: 42-52-1421oalqvdsvndLE Robert Vail Work Phone: [facility] Work Phone: Start: 01-12-2024 End: 07-83-3956Xsnzfuho ReferredDO Robert Vail Work Phone: [facility] [place] Work Phone: Start: 12-29-2023 End: 27-63-0256aeplirbygfBozylssh Ball Other [employer] Other Start: 61-14-9467Uyzsmfevm encounterBenjamin BallFPG [facility] ClinicStart: 12-22-2023 End: 22-93-0776nnfjcrliwiOqppytjb Ball Other [employer] Other Start: 21-79-3007Iaetvu outpatient visit 25 minutes Robert BallFPG [facility] ClinicStart: 12-09-2023 End: 46-98-5492xczfljljgqDpsmeopw Ball Other [employer] Other Start: 94-05-0593Qghttm outpatient visit 15 minutes Robert BallFPG [facility] ClinicStart: 76-09-7761Rauihzp encounter procedure DO Robert Vail Work Phone: [facility] Physician Group-Start: 11-11-2023 End: 23-58-7241ukepxjeqzzNtgjducc Ball Other [employer] Other Start: 07-12-9698Fsfefisyu encounterBenjamin BallFPG [facility] ClinicStart: 11-10-2023 End: 64-70-7336exqcxnovdjFhfnbszp Ball Other [employer] Other Start: 94-33-8210Hdozuzszj encounterBenjamin BallFPG [facility] ClinicStart: 11-04-2023 End: 22-27-6011yczqrcehagTtcdkeci Ball Other [employer] Other Start: 80-01-2525Lgvhbjfll encounterBenjamin BallFPG [facility] ClinicStart: 10-19-2023 End: 17-41-2723bbitgqibfkVgitovxa Ball Other [employer] Other Start: 68-08-5663Lkaffgvgj encounterBenjamin BallFPG [facility] ClinicStart: 09-21-2023 End: 19-21-2590pyoumwfmobYzqdzmhv Ball Other [employer] Other Start: 47-33-4474Aqvzkw outpatient visit 25 minutes Robert BallFPG [facility] ClinicStart: 09-08-2023 End: 94-44-3285ketlfkqitfPzzhzkef Ball Other [facility] [employer] Other Start: 11-19-9198Iadcltlgw encounterBenjamin BallFPG [facility] ClinicStart: 08-29-2023 End: 59-97-2482cgysaxcqsxVytbtdaj Ball Other [facility] [employer] Other Start: 81-92-8301Meaderttp encounterBenjamin BallFPG [facility] ClinicStart: 08-16-2023 End: 96-96-8352huhlbopthlIijgecbd Ball Other [employer] Other Start: 64-90-6450Ugiidpnwm encounterBenjamin BallFPG [facility] ClinicStart: 08-15-2023 End: 19-71-0231rcndzpbysmEecvrlul Ball Other [employer] Other Start: 33-72-0953Oieygcfxtthm care manage srvc 14 day dischargeBenjamin BallFPG [facility] ClinicStart: 07-25-2023 End: 08-35-0109esuzihzzbtElwanpfo Ball Other [employer] Other Start: 75-59-7489Bddkgudaq encounterBenjamin BallFPG [facility] ClinicStart: 07-21-2023 End: 38-49-8418wulsfjnjxkQzguviwx Ball Other [employer] Other start: 58-43-8886Lubpgdeau encounterBenjamin BallFPG [facility] ClinicStart: 07-19-2023 End: 49-78-4253ganlwdoeucZgpqhhiw Ball Other [employer] Other Start: 48-46-1799Ylzxaftob encounterBenjamin BallFPG [facility] ClinicStart: 07-11-2023 End: 82-81-0509dlivgyfsvhVsfxcbjf Ball Other [employer] Other Start: 52-47-1866Qtichk outpatient visit 25 minutes Robert BallFPG [facility] ClinicStart: 05-25-2023 End: 45-78-3138ghdwbobkpaAczbgjfx Ball Other [employer] Other Start: 18-06-5489Mnoscl outpatient visit 15 minutes Robert BallFPG [facility] ClinicStart: 04-26-2023 End: 91-58-0700czouwxesgzTqbiarhr Ball Other [employer] Other Start: 64-06-1157Hrqabvzvx encounterBenjamin BallFPG [facility] ClinicStart: 04-08-2023 End: 23-09-1525ldybqlkicuPfghwnhy Ball Other [employer] Other Start: 95-06-7790Yszapr outpatient visit 15 minutes Robert BallFPG [facility] ClinicStart: 04-07-2023 End: 64-78-3850bmqkdjfchxXL ROBERT BALLFacility:O7Vwvfz: 03-23-2023 End: 30-40-4665bqzdnjvfvkAlydilyo Ball Other [employer] Other Start: 43-87-7198Uywpoq outpatient visit 15 minutes Robert BallFPG [facility] ClinicStart: 03-16-2023 End: 18-17-5878gwocqjuxumHxeoztid Ball Other [employer] Other Start: 76-34-7927Ryaqvknhu encounterBenjamin BallFPG [facility] ClinicStart: 03-14-2023 End: 29-56-7104qcknsxyeroEA ROBERT BALLNort [employer] Other Start: 90-26-1234Nsrvqakbi encounterBenjamin BallFPG [facility] ClinicStart: 03-10-2023 End: 60-61-4522ukcdzeibekCdvuxtqb Ball Other [employer] Other Start: 86-51-0893Kedsrt outpatient visit 15 minutes Robert BallFPG [facility] ClinicStart: 70-04-8672Djhlrggti encounterBenjamin BallFPG [facility] ClinicStart: 03-02-2023 End: 15-27-0269benkleotggMcqquoec Ball Other [employer] Other Start: 02-83-2590Pksjste encounter procedureBenjamin BallFPG [facility] ClinicStart: 02-14-2023 End: 02-81-1981jzkfrybvymTjlhaxqd Ball Other [employer] Other Start: 19-98-5520Bfitxs outpatient visit 25 minutes Michael Kenny Pain ManagementStart: 29-29-8515Rkfuzzrlf encounterBenmeagan HAN [facility] ClinicStart: 02-03-2023(PROC) PROCEDURESherif EmelynHca [facility] St. [facility] Surgery CenterStart: 02-03-2023 End: 19-72-8757lnhftnikthWacwbi Emelyn Other [employer] Other Start: 01-27-2023 End: 38-41-1392riufwweyxvDhgktq Emelyn Other [employer] Other Start: 09-14-5360Ttkxxn-up encounterSherrancho Kenny Pain ManagementStart: 01-19-2023 End: 29-03-2386lgzhowhxkfRsjlpewo Ball Other [employer] Other Start: 21-92-7333Pkppdwrqb encounterBenmeagan [facility] ClinicStart: 01-04-2023(PROC) PROCEDURESherrancho DunawayBrookings Health System CenterStart: 01-04-2023 End: 99-59-0408usdrzprajnTyieme Emelyn Other [employer] Other Start: 12-31-2022 End: 22-98-9638xsuypdzdyjTeevdq Emelyn Other [employer] Other Start: 39-18-4471Susuvd outpatient visit 25 minutes Michael DunawayJOSELYNG Pain ManagementStart: 12-27-2022 End: 05-45-7810gtfrqpfmemWnxlir Braun Other [employer] Other Start: 66-41-4600Uvlvht outpatient visit 15 minutes Ivon BatistaEMELY [facility] ClinicStart: 12-02-2022 End: 64-48-1422llocfwfqlyJmvsw Velarde Other [employer] Other Start: 33-57-7925Wujelt outpatient visit 15 minutes Ursula HartFPG Pain ManagementStart: 11-18-2022(PROC) PROCEDURESherif [facility] CenterStart: 11-18-2022 End: 49-95-0560whxsdwuyioEdrely Emelyn Other [facility] [employer] Other Start: 48-12-3942Hic-procedure evaluation check Robert Ball Other [facility] [employer] Other Start: 11-02-2022 End: 15-84-7025sjctjgjqttKvykdx Zaky Other [facility] [employer] Other Start: 15-18-0077Mkyerm outpatient visit 25 minutes Michael ZakyFPG Pain ManagementStart: 10-26-2022(Procedure) [facility]Robert [facility]. [facility] Surgery CenterStart: 10-26-2022 End: 35-25-6786lgyjsyfusgXswxow Emelyn Other [facility] [employer] Other Start: 09-11-2022 End: 36-09-9211sxmbyghgsoZnchh Keller Other [facility] [employer] Other Start: 86-81-1210Somobx outpatient visit 25 minutes Kaitlynn KellerFPG [facility] ClydeStart: 09-10-2022 End: 91-86-4249hznvccjyevHdzpsi Emelyn Other [employer] Other Start: 50-07-8417Ciqpay outpatient visit 15 minutes Michael ZakyFPG Pain ManagementStart: 08-24-2022(Procedure) ShortRobert [facility]. Kennedy [facility] Surgery CenterStart: 08-24-2022 End: 92-05-1445ukvlhizhccPhrlxo Emelyn Other [employer] Other Start: 08-03-2022(Procedure) [facility] CenterStart: 08-03-2022 End: 40-79-7388eayepyujdkCeojec Emelyn Other [employer] Other Start: 07-29-2022 End: 15-78-0328excynqclwwFpivta Emelyn Other [employer] Other Start: 91-57-4292Tvbqtu outpatient visit 15 minutes Michael ZarudyFPG Pain ManagementStart: 66-92-8116kawcmkmsuaEC ROBERT VAIL Facility:C5Wgsbn: 07-22-2022(Procedure) [facility]ille [facility] Surgery CenterStart: 07-22-2022 End: 90-60-8887wiuxszswugHwyxvt Emelyn Other [employer] Other Start: 07-06-2022 End: 91-70-5395nhniqowjvsVU BENJAMIN BALLcility:C8Vptcq: 07-02-2022 End: 57-74-5519ttrqdhcnzfIlluhs Emelyn Other [facility] [employer] Other Start: 38-60-1706Gpschx outpatient visit 25 minutes Michael ZakyFPG Pain ManagementStart: 06-23-2022(Procedure) Neville Dunaway [facility] OutPtStart: 06-23-2022 End: 42-63-7268siaawluiwbQkcpbl Emelny Other [employer] Other Start: 06-23-2022 End: 69-14-0931Noasqzdzb to same day surgery wendoverDO Robert Vail Work Phone: [facility]Digest[facility] HealthStart: 06-18-2022 End: 79-06-0642cqpbjxztutLfvdwm Zaky Other [facility] [employer] Other Start: 94-11-2943Ddyawk outpatient visit 25 minutes Michaelrancho Kenny Pain ManagementStart: 05-05-2022 End: 85-98-2731Sqywfmc encounter procedureDO Robert Vail Work Phone: [facility] CenterDig[facility] HealthStart: 04-30-2022 End: 11-61-7479aluwxtyjnqLA ROBERT VAILFacility:R8Gahvr: 04-13-2022 End: 71-41-9504swbgldpvriLW ROBERT VAILFacility:A2Zzsra: 04-01-2022 End: 19-96-5901crkbnqqjurFqodc Hykes Other [facility] [employer] Other Start: 07-10-8308Kityicvvj encounterDavid HykesFPG GastroenterologyStart: 03-19-2022 End: 14-76-4618vjdathzwawMpckdr Zaky Other [facility] [employer] Other Start: 97-05-4911Snxievhkf encounterSherif TatyanaG Pain ManagementStart: 03-11-2022 End: 46-00-5003demqjnmddiGpbpfu Zaky Other [facility] [employer] Other Start: 98-57-2006Ivvfpl outpatient visit 25 minutes Michaelrancho Kenny Pain ManagementStart: 03-04-2022 End: 02-70-9184Eoivubc encounter procedureMichael R NILL [phone]-TfiduBarn[facility] [place] Start: 02-25-2022(Procedure) ShortMichael Sahni [facility]: 02-25-2022 End: 65-62-2464etblayjzpqHtsoit Zaky Other [facility] [employer] Other Start: 02-18-2022 End: 52-01-7529bgnuuomkeeDhhxaa Zaky Other [facility] [employer] Other Start: 85-52-6010Ztrxct outpatient new 45 minutes Michael EmelynFPG Pain ManagementStart: 01-28-2022 End: 83-89-8486tpgazirkwqOssk Batista Other [facility] [employer] Other start: 60-83-0842Sumron outpatient new 45 minutesDale BraunFPG [facility] NeurosurgeryStart: 57-25-8723Mkfeh health examination Robert Veoh Other [facility] [employer] Other Start: 11-07-2021 End: 64-12-2806jkjvcrplheWpbtbp Dymond Other [facility] [employer] Other Start: 90-16-9431Hjtgmz outpatient new 20 minutes Quita SimmonsFPG [facility] Procedures DateProcedureProcedure DetailPerforming ClinicianStart: 03-29-8890Ixvzn anesthetic sacral epidural blockBenjamin Ball DO Work Phone: Start: 17-30-1455Ltgzw anesthetic sacral epidural blockDO Robert Ball Work Phone: Start: 01-17-3772OZ lumbar spine wo conDO Robert Veoh Work Phone: Start: 53-83-3054Lfvmds X-rayDO Robert Veoh Work Phone: Start: 29-59-4667Tktziwpagus of sacrococcygeal spineDO hoohbe Work Phone: Start: 22-94-8520H-ray of lumbar spine, four viewsDO Robert Veoh Work Phone: Start: 27-27-6378Zjtujww microbial cultureDO Robert Vail Work Phone: Start: 20-24-0859Nwwnqygfe of local anesthetic into sacroiliac jointDO Robert Vail Work Phone: Start: 04-29-2744Davjtus endoscopyDO Robert Vail Work Phone: Start: 77-02-9827Rbjxpefqj for osteoporosisBenmeagan Vail Other Start: 65-60-9584Jkzcaciw extraction and insertion of intraocular lensMichael NILL Start: 69-08-9396Sueajxep extraction and insertion of intraocular lensMichael NILL Comment on above:right eyeStart: 44-89-3536Qmjaftywt mammographyBenmeagan Vail Other Start: 66-80-5508B0-L5 lumbar laminectomy, foraminotomy with facetectomy with decompression L5 nerve roots bilaterally 2 Taye NILL Comment on above:see operative report for further detailsStart: 76-12-3968Zbm-surgery evaluationBebarbara Vail Other Start: 39-26-5381Bqrnqrlfuswa cardiovascular examinationBenmeagan Vail Other Start: 13-75-5599Lpebxcjslwkp pulmonary examination Robert Vail Other Start: 20-85-8744YseqqxwvilqOdootzy NILL Start: 88-79-6295LuqhgolrajnFevpeux NILL Start: 16-05-9054UvnstrpcquWnukxhn NILL Arthroplasty of kneeMichael NILL Comment on [...] Plan of Treatment DateCare ActivityDetailAuthorStart: 04-07-2026 End: 00-25-8829Ktlanvs encounter /11/2026 11:15 AM EDT Office Visit [facility] [address] [place] [address] Jr. Fernando Silva, DO [address] [place] [address] [facility]THOPAEDICSStart: 05-09-2025 End: 76-39-1028qejbwuuylw43/12/2025 10:30 AM EDT Treatment [facility] [address] [place] [address] Jacqui Harper PTNOMS CI PTStart: 05-07-2025 End: 45-95-2815styrrzqlpk07/10/2025 12:30 PM EDT Treatment [facility] [address] [place] [address] Gabriel Loco PTANOMS CI PTStart: 05-03-2025 End: 19-76-7422sepfddkysaEQPJ CI PTStart: 04-30-2025 End: 26-04-6766ncuydwnvdpJPBI CI PTStart: 04-26-2025 End: 21-57-1255ohirdoqbxr26/30/2025 9:00 AM EDT Treatment [facility] [address] [facility] [address] [place] [address] Gabriel Loco PTANO CI PTStart: 04-23-2025 End: 77-07-5750qulljzhouu16/27/2025 4:30 PM EDT Treatment [facility] [address] [facility] [address] [place] [address] Gabriel Loco PTA Low back pain, unspecified back pain laterality, unspecified chronicity, unspecified whether sciatica present (Primary Dx)[facility] CI PTComment on above:Low back pain, unspecified back pain laterality, unspecified chronicity, unspecified whether sciatica present (Primary Dx)Start: 04-17-2025 End: 97-93-0059kzrxmrtvws94/21/2025 11:00 AM EDT Treatment [facility] [address] [facility] [address] [place] [address] Jacqui Harper PTNO CI PTStart: 04-15-2025 End: 22-95-6068fsoklipjyt81/19/2025 9:30 AM EDT Treatment [facility] [address] [facility] [address] [place] [address] Jacqui Harper PTNOMS CI PTStart: 04-11-2025 End: 00-32-3097lugiqnwazw74/15/2025 9:00 AM EDT Treatment [facility] [address] [facility] [address] [place] [address] Jacqui Harper PTNOMS CI PTStart: 04-08-2025 End: 89-30-4218nnoqbxbwcp70/12/2025 1:00 PM EDT Treatment [facility] [address] [facility] [address] [place] [address] Gabriel Loco PTANOMS CI PTStart: 04-01-2025 End: 87-78-2893yybucuqlnu34/05/2025 9:30 AM EDT Treatment [facility] [address] [place] [address] Jacqui Harper, PTNOMS CI PTStart: 03-21-2025 End: 87-35-4703aodintmtko65/24/2025 8:30 AM EDT Treatment [facility] [address] [place] [address] Jacqui Harper, PTNOMS CI PTStart: 03-14-2025 End: 02-63-4506uxislepzcvOFUE CI PTComment on above:ArrivedStart: 02-28-2025 End: 68-91-4865fsezbpqdyqCDLG CI PTStart: 02-25-2025 End: 79-04-5781qcfvwoqzwg24/31/2025 12:00 PM EDT Treatment [facility] [address] [facility] [address] [place] [address] Tierney Paz, BAND SPLICER [facility] CI PTStart: 02-20-2025 End: 76-81-4297jqjybbenjp86/26/2025 1:00 PM EDT Treatment [facility] [address] [facility] [address] [place] [address] Tierney Paz, KODAK ArrivedNOMS CI PTComment on above:ArrivedStart: 02-13-2025 End: 66-43-2034ujuvcxzfmc65/19/2025 1:00 PM EDT Treatment [facility] [address] [facility] [address] [place] [address] Gabriel Loco PTANOMS CI PTStart: 02-11-2025 End: 75-67-8183ograxbydid67/17/2025 12:30 PM EDT Treatment [facility] [address] [facility] [address] [place] [address] Amparo Giron PTANOMS CI PTStart: 01-31-2025 End: 82-64-3959ayqyiqnhmf87/06/2025 12:00 PM EST Treatment [facility] [address] [facility] [address] [place] [address] Gabriel Loco, PTANOMS CI PTStart: 01-28-2025 End: 97-18-4111cidykhjqaq05/03/2025 12:00 PM EST Treatment [facility] [address] [facility] [place] [address] Jacqui Harper PTNOMS CI PTStart: 01-23-2025 End: 36-02-7698xrzjgvqyqaFKPX CI PTComment on above:Low back pain, unspecified back pain laterality, unspecified chronicity, unspecified whether sciatica present (Primary Dx)Start: 01-21-2025 End: 50-87-3796mzbfwgijkqCDTR CI PTComment on above:ArrivedStart: 01-17-2025 End: 93-64-5917mjrhlvfszqDEQC CI PTComment on above:ArrivedStart: 01-14-2025 End: 00-41-2541qmjsrdlekg08/17/2025 11:00 AM EST Evaluation [facility] [address] [facility] [place] [address] Jacqui Harper, PT ArrivedNOMS CI PTComment on above:ArrivedStart: 86-09-6600BwsikrsgkSt. Charles Hospitaltart: 07-84-4530MhfbftgyxMercy Health Lorain Hospital CenterStart: 55-41-5172Svjbgeqhcbf Wound CultureSuperficial Wound CultureSt. Charles Hospitaltart: 47-01-9306MbleohxjaMercy Health Lorain Hospital Ctr Work Phone: Start: 94-21-5643CsfktarprMercy Health Lorain Hospital Ctr Work Phone: Start: 63-37-8165Hrqsahnopmyz Vaccine: 65+ Years (2 of 2 - PCV)Pneumococcal Vaccine: 65+ Years (2 of 2 - PCV)[facility] HealthcareaPTT in Platelet poor plasma by Coagulation assayWyandot Memorial Hospital Comprehensive metabolic 2000 panel - Serum or PlasmaWyandot Memorial HospitalComprehensive metabolic 1999 panel - Serum or [facility] CenterMicroalbumin [Mass/volume] in UrineWyandot Memorial HospitalMR Lumbar spine WO contrastWyandot Memorial HospitalPatient EducationMercy Health Lorain Hospital Ctr Work Phone: Patient referralMercy Health Lorain Hospital Ctr Work Phone: XR Lumbar spine 4 [facility] Pelvis 1 or 2 [facility]XR Sacrum and Coccyx GE [address] [facility] Immunizations Immunization DateImmunizationNotesCare RtoavabhPwaooadk49-47-2128lxcyzgcoz, high dose seasonal, preservative-freeBenjamin Ball DO Work Phone: [facility]09-09-2024influenza, high dose seasonal, preservative-freeDO Robert Vail Work Phone: [facility]09-18-2023influenza, high dose seasonal, preservative-freeBenjamin Ball Other [employer] Other [id number] virus vaccine, unspecified formulationDO Robert Vail Work Phone: [facility]11-16-2022Influenza vaccine, quadrivalent, adjuvantedDO Robert Genna Work Phone: [facility]11-16-2022influenza virus vaccine, split virus (incl. purified surface antigen)Robert Vail Other [employer] Other [id number] virus vaccine, unspecified formulationDO Robert Vail Work Phone: [facility]11-11-2022influenza virus vaccine, unspecified formulationDO Robert Vail Work Phone: [facility]11-11-2022influenza, high dose seasonal, preservative-freeBenmeagan Vail Other [employer] Other [id number]-24 Vaccine Pfizer - Documentation Purposes OnlyBenmeagan Vail Other [facility]10-06-2021influenza virus vaccine, split virus (incl. purified surface antigen)Robert Vail Other [facility] Other [id number] virus vaccine, unspecified formulationDO Robert Vail Work Phone: [facility]03-17-2021COVID-19 Vaccine Pfizer - Documentation Purposes OnlyBenmeagan Vail Other [facility]02-24-2021COVID-19 Vaccine Pfizer - Documentation Purposes OnlyBenmeagan Vail Other [facility]09-28-2020influenza virus vaccine, split virus (incl. purified surface antigen)Robert Vail Other [facility] [employer] Other [id number] virus vaccine, unspecified formulationDO Robert Vail Work Phone: [facility]10-03-2019influenza virus vaccine, split virus (incl. purified surface antigen)Robert Vail Other [facility] Other [id number] virus vaccine, unspecified formulationDO Robert Vail Work Phone: [facility]11-14-2018influenza, injectable, quadrivalent, preservative freeDO Robert Vail Work Phone: [facility]10-22-2018influenza virus vaccine, split virus (incl. purified surface antigen)Robert Vail Other [facility] Other [id number] virus vaccine, unspecified formulationDO Robert Vail Work Phone: [facility]10-22-2018Seasonal trivalent influenza vaccine, adjuvanted, preservative freeDO Robert Vail Work Phone: [facility]09-20-2017influenza virus vaccine, split virus (incl. purified surface antigen)Robert Vail Other [facility] Other [id number] virus vaccine, unspecified formulationDO Robert Vail Work Phone: [facility]09-20-2017influenza, high dose seasonal, preservative-freeDO Robert Vail Work Phone: [facility]09-01-2017 pneumococcal polysaccharide vaccine, 23 valentBenjademetria Vail Other [facility]03-20-2017influenza virus vaccine, split virus (incl. purified surface antigen)Robert Vail Other [facility] Other [id number] virus vaccine, unspecified formulationDO Robert Vail Work Phone: [facility]11-10-2015 pneumococcal conjugate vaccine, 13 valentBenjademetria Vail Other [facility]09-22-2015influenza virus vaccine, split virus (incl. purified surface antigen)Robert Vail Other [facility] Other 09878931-40-6829hcctxtoxr virus vaccine, unspecified formulationDO Robert Vail Work Phone: [facility]10-23-2014tetanus and diphtheria toxoids, adsorbed, preservative free, for adult use (5 Lf of tetanus toxoid and 2 Lf of diphtheria toxoid)Robert Vail Other [facility]09-20-2013tetanus and diphtheria toxoids, adsorbed, preservative free, for adult use (5 Lf of tetanus toxoid and 2 Lf of diphtheria toxoid)Robert Vail Other [facility]09-05-2012tetanus and diphtheria toxoids, adsorbed, preservative free, for adult use (5 Lf of tetanus toxoid and 2 Lf of diphtheria toxoid)Robert Vail Other [facility]07-08-2011zoster vaccine, liveDO Robert Vail Work Phone: [facility]08-06-2009 pneumococcal polysaccharide vaccine, 23 valentBenmeagan Vail Other [facility] Payers DatePayer CategoryPayerPolicy [id number] Health Insurance [id number] 2007MedicareMEDICARE Member Subscriber Plan / Payer (Effective 2006-Present) Name: Sandra Tavarez Member ID: [id number] Relation to Subscriber: Self Name: Sandra Tavarez Subscriber ID: [id number] Payer ID: STATE Group ID: Not on file Type: Medicare Address: [place] [id number] [id number] 2.16.840.8.803588.64508660-01-8860Gnsb-[id number] [id number] 2.16.840.6.88050[id number] 2.16.840.1.650646.3.57[id number] 2.16.840.1.131266.3.57[id number] 2.16.840.1.843219.3.57[id number] 2.16.840.1.912719.3.579.[id number] 2.16840.1.911925.3.579.2.64689-39-0066Eqekxlg3661511 2.16.840.1.333072.3.579.2.[id number] 2.16.840.1.343889.3.579.2.09640-63-8298Jkdrygc84385259 2.16.840.1.069728.3.579.2.80583-05-4538Lekdxov99139540 2.16.840.1.727183.3.579.2.76692-56-6687Qabriew97441137 2.16.840.1.950963.3.579.2.644781-98-3358Biaoglm44069955 2.16.840.1.419551.3.579.2.886586-35-5399Oxykwut63610569 2.16.840.1.166328.3.579.2.900862-40-6112Dyylesk2958517 2.16.840.1.567656.3.579.2.579432-31-7110Uohysea7485640 2.16.840.1.406347.3.579.2.642381-13-1194Vbdpulc2971329 2.16.840.1.071087.3.579.2.999018-91-1278Irgkflk8577566 2.16.840.1.911741.3.579.2.111429-90-5032Jjpciab6310737 2.16.840.1.665882.3.579.2.103292-92-0014Otaitfg2462298 2.16.840.1.653754.3.579.2.563953-82-1765Ddcmurx4706176 2.16.840.1.262670.3.579.2.844520-46-6170Iwvrgty3302886 2.16.840.1.273304.3.579.2.250913-33-8077Iixswtm6676093 2.16.840.1.234718.3.579.2.912817-97-3516Mwrrrhe2155066 2.16.840.1.684439.3.579.2.702690-73-9081Glovxqg2013222 2.16.840.1.216195.3.579.2.226296-92-4124Myctzrq7514185 2.16.840.1.582834.3.579.2.161729-36-1344Gduldxl8849123 2.16.840.1.796345.3.579.2.375290-27-6449Tggyhtf0542405 2.16.840.1.492110.3.579.2.959468-48-6203Ifksghv7391694 2.16.840.1.621587.3.579.2.492552-27-9117Wipikjk9781826 2.16.840.1.672738.3.579.2.119617-38-5714Ogxqwgo6498473 2..840.1.340086.3.579.2.665113-85-5599Jrelymq7983444 2.16.840.1.254422.3.579.2.276748-16-3111Snqabzp3384876 2..840.1.977088.3.579.2.903183-17-4003Ppibzeq7123899 2.16.840.1.044234.3.579.2.0937Dhgqesb07528862 2.16.840.1.497926.3.579.2.531 Juazsby87017385 2.16.840.1.321228.3.579.2.922Zsauuoc64670739 2..840.1.670853.3.579.2.115Qdnezbh87691100 2.16.840.1.700381.3.579.2.531 Eglgztn28004790 2.16.840.1.423248.3.579.2.843Zmiqubo96510913 2.16.840.1.319006.3.579.2.066Wdjwsby08611192 2.16.840.1.437713.3.579.2.531 Bycqxgc62055982 2.16840.1.268641.3.579.2.531 Social History DateTypeDetailFacilityStart: 03-04-2022 End: 41-40-2476Iuvgnek smoking statusEx-smoker (finding)[facility] Other Tobacco smoking statusNeverBarnesville Hospital [facility] [place] Start: 96-94-4102Rbr Assigned At BirthFeHCA [facility] Other Start: 03-24-2022 End: 41-33-4779Jcpafsi smoking status NHISNever smoked tobacco (finding) [facility]: 24-74-4590Prs Assigned At BirthFemalMercy Health Fairfield Hospitaltart: 12-07-2024 End: 30-12-1471BlmSchemx (finding)[facility] HospitalHistory of tobacco useCurrent smokerNOMS HealthcareHistory of tobacco useCigarette Smoker [facility] HealthcareStart: 17-75-4968Btzbhqc use and exposureSmokeless tobacco non-userNOMS HealthcareStart: 20-28-7627Rakiowvgz beverage intakeEx-drinker (finding)[facility] HealthcareStart: 17-62-9324Gzvqzkx of Social functionNOMS HealthcareStart: 22-74-4219Drc assigned at birthNot on [facility] Medical Equipment Procedure CodeEquipment CodeEquipment Original TextEquipment IdentifierDates Capsule endoscopy, for patency of lumen evaluationVideo capsule endoscopy system ()[id number] FDAStart: 05-05-2022 Goals DatePatient GoalDesired Activity/State Clinical Notes 11-07-2021 to 08-12-2025 Note Date & QbntOmdbAzezruap19-71-0747 Evaluation note* Diagnosis Onset Date Resolution Status Admit Date Anticoagulant long-term use acuteSeptember 2024 10:31amGeneralized seizure disorderacuteSeptember 2024 10:31amHypercholesteremiaacuteSeptember 2024 10:31am HypertensionacuteSeptember 2024 10:31amObesityacuteSeptember 2024 10:31amOSA (obstructive sleep apnea)acuteSeptember 2024 10:31am ThrombophiliaacuteSeptember 2024 10:31amType 2 diabetes mellitus with hyperglycemiaacuteSeptember 2024 10:31amVenous hypertension, chronic, with ulceracuteSeptember 2024 10:31amAnticoagulant long-term useacuteOctober 2024 12:00pmOther chronic painacuteOctober 2024 12:00pmPost laminectomy syndromeacuteOctober 2024 12:00pmSacroiliitisacuteOctober 2024 12:00pm [facility] Work Phone: 1(995) 306-360506-19-2025 Evaluation note* Diagnosis Onset Date Resolution Status [...] 2 diabetes mellitus with hyperglycemiaacuteSeptember 2024 10:31am [facility] Work Phone: 1(957) 946-201106-12-2025 History of Present illness Narrative* Jacqui Harper, [...] instructed in home exercise program. - met Mine Deputy Goals: To be met in 10 weeks [...] - met Discharge PT documented in this encounterTwo Rivers Psychiatric HospitalWbkuxqfwpy43-62-7395 History of Present illness Narrative* Jacqui Harper [...] instructed in home exercise program. - met Longterm Goals: To be met in 10 weeks [...] Please sign below. Date: documented in this encounterTwo Rivers Psychiatric HospitalJxawlfgrrh58-14-0108 History of Present illness Narrative* Jacqui Harper, [...] instructed in home exercise program. - met Mine Deputy Goals: To be met in 10 weeks [...] Please sign below. Date: documented in this encounterTwo Rivers Psychiatric HospitalZauquqdkye97-86-0355 History of Present illness Narrative* Jacqui Harper, [...] instructed in home exercise program. - met Mine Deputy Goals: To be met in 10 weeks [...] Please sign below. Date: documented in this encounterTwo Rivers Psychiatric HospitalJjycheoeki33-66-1225 History of Present illness Narrative* Jacqui Harper [...] instructed in home exercise program. - met Longterm Goals: To be met in 10 weeks [...] Please sign below. Date: documented in this encounterTwo Rivers Psychiatric HospitalXrdoyzvjpa57-38-6145 History of Present illness Narrative* Jacqui Harper [...] instructed in home exercise program. - met Longterm Goals: To be met in 10 weeks [...] Please sign below. Date: documented in this [facility]04-23-2025 Evaluation note* Diagnosis Onset Date Resolution [...] 2024 11:39amCellulitisacuteJuly 2024 11:24amSkin tearacuteJuly 2024 11:24am [facility] Work Phone: 1(884) 754-528104-23-2025 Evaluation note* Diagnosis Onset Date Resolution Status [...] venous insufficiencyacuteJuly 2024 1:46pmSkin tearacuteJuly 2024 1:46pm [facility] Work Phone: 1(308) 904-786804-17-2025 History of Present illness Narrative* Jacqui Harper, [...] instructed in home exercise program. - met Mine Deputy Goals: To be met in 10 weeks [...] Please sign below. Date: documented in this encounterTwo Rivers Psychiatric HospitalRifnxuwtyi30-41-7295 History of Present illness Narrative* Jacqui Harper [...] instructed in home exercise program. - met Mine Deputy Goals: To be met in 10 weeks [...] Please sign below. Date: documented in this encounterTwo Rivers Psychiatric HospitalAojtqdvdrg34-23-5366 NoteGeneral Surgery Office/Clinic Note Chief Complaint consultation [...] require lift technique; patient requests referral to [facility]; call with problems/questions. Ordered: [facility] Internal Ambulatory Referral Follow-up No qualifying data [...] Sister. Hypertension: Father, Siste (more content not included)...[facility] HospitalComment on above:Result Comment: Electronically Signed By: GEORGE JENNINGS, Taye Ellington\Date and Time Signed: 02/26/25 13:52 [id number] Evaluation note * Diagnosis Onset Date Resolution [...] 11:46amOther chronic painacuteJune 2024 11:46amSacroiliitisacuteJune 2024 11:46am [facility] Work Phone: 1(302) 640-367803-03-2025 Telephone encounter Note* Telephone Encounter - Jenna Servin - 01/28/2025 8:25 AM EST She called noting up all last night not feeling well and no better this morning; she cx her 12:00 PT. I reminded and she said she will try to make her 3/6 PT; if unable she will contact jennifer. [facility] Ddnbsedbuj32-27-0409 Miscellaneous Notes* Telephone Encounter - Jenna Servin - 01/28/2025 8:25 AM EST She called noting up all last night not feeling well and no better this morning; she cx her 12:00 PT. I reminded and she said she will try to make her 3/6 PT; if unable she will contact jennifer. documented in this encounterTwo Rivers Psychiatric HospitalFkavvrrrow46-90-9401 History of Present illness Narrative* Jacqui Leroy, [...] Left low back is hurting more today. [place] good after last session but pain returned. [...] as needed. Manual lumbar distraction supine with finnish ball. Therapeutic Exercise: (31 minutes) Strength, Endurance, [...] to be instructed in home exercise program. Longterm Goals: To be met in 10 weeks [...] Please sign below. Date: documented in this [facility]02-19-2025 Evaluation note* Diagnosis Onset Date Resolution [...] 10:24amMedicare annual wellness visit, subsequentnoneactiveMay 2024 10:24am [facility] Work Phone: 1(564) 927-914602-17-2025 History of Present illness Narrative* Jacqui Harper, [...] to be instructed in home exercise program. Mine Deputy Goals: To be met in 10 weeks [...] Please sign below. Date: documented in this encounterTwo Rivers Psychiatric HospitalBxbercxiuh29-60-5981 Evaluation note* Diagnosis Onset Date Resolution Status [...] 1:27pmPost laminectomy syndromeacuteApril 2024 1:27pmSacroiliitisacuteApril 2024 1:27pm [facility] Work Phone: 1(703) 773-552301-29-2025 [place] [address] Pain Management Procedure Note Signed Patient: Sandra Tavarez MR#: [id number] : 1940 Acct:[id number] Age/Sex: 84 / F Adm Date: 5 Loc: Room: Type: [facility] Attending Dr: Michael Dunaway MD Copies to: [...] MD 12/26/24 1119 Signed By: 12/26/24 1206 [facility]01-15-2025 Evaluation note* Diagnosis Onset Date Resolution [...] laminectomy syndrome acuteApril 2024 10:33amSacroiliitisacuteApril 2024 10:33am [facility] Work Phone: 1(720) 823-503401-10-2025 Evaluation note* Diagnosis Onset Date Resolution Status Admit Date Generalized seizure disorder acuteJanuary 2024 10:20amHypercholesteremiaacuteJanuary 2024 10:20am HypertensionacuteJanuary 2024 10:20amIron deficiency anemiaacuteJanuary 2024 10:20amLumbar spondylosisacuteJanuary 2024 10:20amOSA (obstructive sleep apnea)acuteJanuary 2024 10:20amThrombophiliaacute December 07, 2024 10:20amType 2 diabetes mellitus with hyperglycemiaacute December 07, 2024 10:20amChronic painacuteJanuary 2024 1:37pmEncounter for monitoring Coumadin therapyacuteJanuary 2024 1:37pmLumbosacral spondylosisacuteJanuary 2024 1:37pmPost laminectomy syndromeacuteJanuary 2024 1:37pmSacroiliitisacuteJanuary 2024 1:37pm [facility] Work Phone: 1(660) 985-160201-10-2025 Evaluation note* Diagnosis Onset Date Resolution Status [...] 1:39pmLaceration of leg excluding thighacuteJanuary 2024 1:39pm [facility] Work Phone: 1(167) 247-395301-10-2025 Evaluation note* Diagnosis Onset Date Resolution Status [...] laminectomy syndromeacuteFebruary 2024 12:55pm SacroiliitisacuteFebruary 2024 12:55pm [facility] Work Phone: 1(745) 618-184701-10-2025 Evaluation note* Diagnosis Onset Date Resolution Status [...] laminectomy syndrome acuteApril 2024 10:33amSacroiliitisacuteApril 2024 10:33am [facility] Work Phone: 1(851) 737-724409-13-2024 Procedure noteWyandot Memorial Hospital01-25-2024 Evaluation note* Encounter Date Diagnosis Assessment [...] the patient reduces t he risk for MO, CVA, HTN, cardiac dysrhythmias and sudden cardiac [...] the risk for cerebrovascular and cardiovascular disease. [employer] Other 01-12-2024 Evaluation note* Encounter Date Diagnosis [...] virus infection (ICD-10 - Z20.822)[facility], results negative for COVID infection. [employer] Other 12-14-2023 Evaluation note* Encounter Date Diagnosis Assessment Notes Treatment Notes Treatment Clinical Notes Oct, Acute cough (ICD-10 - R05.1) [employer] Other 10-25-2023 Evaluation note* Encounter Date Diagnosis [...] clinic for additionaltreatment Discussed compression, pumps etc [employer] Other 10-12-2023 Evaluation note* Encounter Date Diagnosis Assessment Notes Treatment Notes Treatment Clinical Notes Aug, Lumbar spondylosis (ICD-10 - M47 .816) [employer] Other 10-02-2023 Evaluation note* Encounter Date Diagnosis Assessment Notes Treatment Notes Treatment Clinical Notes Aug, Pain of right lower extremity (I CD-10 - M79.604) [employer] Other 09-18-2023 Evaluation note* Encounter Date Diagnosis [...] of right lower extremity (ICD-10 - M79.604) [employer] Other 08-22-2023 Evaluation note* Encounter Date Diagnosis Assessment Notes Treatment Notes Treatment Clinical Notes Jun, Dysuria (ICD-10 - R30.0) [employer] Other 08-14-2023 Evaluation note* Encounter Date Diagnosis [...] use, the patient reduces the risk for MO, CVA, HTN, cardiac dysrhythmias and sudden cardiac [...] or drinking prior to bedtime. Weight loss. [employer] Other 06-28-2023 Evaluation note* Encounter Date Diagnosis [...] supplied to the patient after her assessment [employer] Other 05-30-2023 Evaluation note* Encounter Date Diagnosis Assessment Notes Treatment Notes Treatment Clinical Notes March, Cellulitis of right lower extrem ity (ICD-10 - L03.115) [employer] Other 05-12-2023 Evaluation note* Encounter Date Diagnosis Assessment Notes Treatment Notes Treatment Clinical Notes March, Cellulitis of right lower extrem ity (ICD-10 - L03.115) Elevate and use warm compresses. March,hronic venous insufficiency (ICD-10 - I87.2)Avoid salt and elevate lower extremities, support stockings, inspect legs and feet daily for blisters and ulcerations. March,Hypercoagulable state (ICD-10 - D68.59)Not able to use NSAIDs [employer] Other 04-26-2023 Evaluation note* Encounter Date Diagnosis [...] and refer to med management clinic in [facility] Other 04-19-2023 Evaluation note* Encounter Date Diagnosis Assessment Notes Treatment Notes Treatment Clinical Notes Feb, Generalized seizure disorder (IC D-10 - G40.309) [facility] Other 04-17-2023 NotePROCEDURE: XR CHEST 2 [...] Electronically authenticated by: CELINA JONES Date: 2023-03-14 15:11[facility]04-17-2023 Evaluation note* Encounter Date Diagnosis Assessment Notes Treatment Notes Treatment Clinical Notes Feb, Simple chronic bronchitis (ICD-1 0 - J41.0) [facility] Other 04-13-2023 Evaluation note* Encounter Date Diagnosis Assessment Notes Treatment Notes Treatment Clinical Notes Feb, Acute bronchitis due to other sp ecified organisms (ICD-10 - J20.8) Instructed to use Robitussin or Mucinex for cough, saline or Flonase NS for congestion, Tylenol forpain and fever. Feb,Seasonal allergic rhinitis due to pollen (ICD-10 - J30.1) [facility] Other 04-05-2023 Evaluation note* Encounter Date [...] use, the patient reduces the risk for MO, CVA, HTN, cardiac dysrhythmias and sudden cardiac [...] mammogram for breast cancer (ICD-10 - Z12.31) [employer] Other 03-20-2023 Evaluation note* Encounter Date Diagnosis [...] offered to prescribe a low dose of [place], she states she does not want to be on opioid pain medications. She can follow up in 3 months or as needed. Jan,hronic pain (ICD-10 - G89.29) Follow up as needed [employer] Other 03-02-2023 Evaluation note* Encounter Date Diagnosis [...] (ICD-10 - G89.29) Follow up after procedure. [employer] Other 02-03-2023 Evaluation note* Encounter Date Diagnosis [...] (ICD-10 - G89.29) Follow up after procedure. [employer] Other 01-30-2023 Evaluation note* Encounter Date Diagnosis Assessment Notes Treatment Notes Treatment Clinical Notes Nov, Erysipelas (ICD-10 - A46) Start w antibiotic, take entire course. Call if no improvement for other prescription or dermatology referral. Nov,Systemic viral illness (ICD-10 - B34.9)Chills and nausea has resolved Continue to monitor symptoms [employer] Other 01-05-2023 Evaluation note* Encounter Date Diagnosis [...] - G89.29) Follow up in 4 weeks. [employer] Other 12-06-2022 Evaluation note* Encounter Date Diagnosis [...] for three days prior to each procedure [employer] Other 10-15-2022 Evaluation note* Encounter Date Diagnosis [...] treatment plan. Patient left in stable condition [employer] Other 10-14-2022 Evaluation note* Encounter Date Diagnosis [...] - G89.29) Follow up in 4 weeks. [employer] Other 09-01-2022 Evaluation note* Encounter Date Diagnosis [...] Eliquis for 3 days prior to procedure [employer] Other 08-05-2022 Evaluation note* Encounter Date Diagnosis [...] Eliquis for 3 days prior to procedure [employer] Other 07-27-2022 [facility] Encounter Date Diagnosis [...] Eliquis for 3 days prior to procedure [employer] Other 04-14-2022 Evaluation note* Encounter Date Diagnosis [...] medial branch nerve blocks in the future. [employer] Other 03-24-2022 Evaluation note* Encounter Date Diagnosis [...] She reports prior surgerywith Dr. Rivers at [facility] 8 years ago. She also reports prior [...] negative findings were considered in medical decision-making. [employer] Other 03-03-2022 Evaluation note* Encounter Date Diagnosis [...] Jan,symptomatic age-related postmenopausal state (ICD-10 - Z78.0) [facility] [employer] Other 2021 Evaluation note* Encounter Date Diagnosis [...] no improvement in 2 to 3 days [employer] Other Evaluation + Plan note No data available for this section [facility] [place] Evaluation noteNo InformationNortWills Eye Hospital [employer] Other Evaluation noteNo assessment information available [facility] Work Phone: Evaluation note* Diagnosis Onset Date Resolution Status Chronic venous insufficiency acuteHypertensionacuteLumbar spondylosisacuteThrombophiliaacute [facility] Work Phone: Evaluation note* Diagnosis Onset Date Resolution Status Chronic venous insufficiency acuteThrombophiliaacuteNonhealing surgical woundnoneactiveGeneralized seizure disorderacuteHypercholesteremiaacuteHypertensionacuteLumbar spondylosisacuteOSA (obstructive sleep apnea)acuteThrombophiliaacuteType 2 diabetes mellitus with hyperglycemiaacuteMedicare annual wellness visit, subsequentnoneactive Anticoagulant long-term useacuteArthritis of sacroiliac jointacuteChronic pain acuteIschial bursitisacuteLumbosacral spondylosisacute [facility] Work Phone: Evaluation note* Diagnosis Onset Date Resolution Status Generalized seizure disorder acuteHypercholesteremiaacuteHypertensionacuteLumbar spondylosisacuteOSA (obstructive sleep apnea)acuteThrombophiliaacuteType 2 diabetes mellitus with hyperglycemiaacuteMedicare annual wellness visit, subsequentnoneactive Anticoagulant long-term useacuteArthritis of sacroiliac jointacuteChronic pain acuteIschial bursitisacuteLumbosacral spondylosisacute [facility] Work Phone: Evaluation note* Diagnosis Onset Date Resolution Status Generalized seizure disorder acuteHypercholesteremiaacuteHypertensionacuteLumbar spondylosisacuteOSA (obstructive sleep apnea)acuteThrombophiliaacuteType 2 diabetes mellitus with hyperglycemiaacuteMedicare annual wellness visit, subsequentnoneactive Anticoagulant long-term useacuteArthritis of sacroiliac jointacuteChronic pain acuteIschial bursitisacuteLumbosacral spondylosisacuteIschial bursitisacute Lumbosacral spondylosisacutePost laminectomy syndromeacute [facility] Work Phone: Evaluation note* Diagnosis Onset Date Resolution Status Ischial bursitis acuteLumbosacral spondylosisacutePost laminectomy syndromeacuteAnticoagulant long-term useacuteChronic painacuteLumbosacral spondylosisacutePost laminectomy syndromeacute [facility] Work Phone: evaluation note* Diagnosis Onset Date Resolution Status Ischial bursitis acuteLumbosacral spondylosisacutePost laminectomy syndromeacuteAnticoagulant long-term useacuteChronic painacuteLumbosacral spondylosisacutePost laminectomy syndromeacuteGeneralized seizure disorderacuteHypercholesteremiaacute HypertensionacuteLumbar spondylosisacuteOSA (obstructive sleep apnea)acute ThrombophiliaacuteType 2 diabetes mellitus with hyperglycemiaacute [facility] Work Phone: Evaluation note* Diagnosis Onset Date Resolution Status Ischial bursitis acuteLumbosacral spondylosisacutePost laminectomy syndromeacuteAnticoagulant long-term useacuteChronic painacuteLumbosacral spondylosisacutePost laminectomy syndromeacuteGeneralized seizure disorderacuteHypercholesteremiaacute HypertensionacuteLumbar spondylosisacuteOSA (obstructive sleep apnea)acute ThrombophiliaacuteType 2 diabetes mellitus with hyperglycemiaacuteAnticoagulant long-term useacuteChronic painacuteLumbosacral spondylosisacutePost laminectomy syndromeacuteSacroiliitisacute [facility] Work Phone: Evaluation note* Diagnosis Onset Date Resolution Status Anticoagulant long-term use acuteChronic painacuteLumbosacral spondylosisacutePost laminectomy syndromeacute Generalized seizure disorderacuteHypercholesteremiaacuteHypertensionacuteLumbar spondylosisacuteOSA (obstructive sleep apnea)acuteThrombophiliaacuteType 2 diabetes mellitus with hyperglycemiaacuteAnticoagulant long-term useacuteChronic painacuteLumbosacral spondylosisacutePost laminectomy syndromeacuteSacroiliitis acute [facility] Work Phone: Evaluation note* Diagnosis Onset Date Resolution Status Anticoagulant long-term use acuteChronic painacuteLumbosacral spondylosisacutePost laminectomy syndromeacute Generalized seizure disorderacuteHypercholesteremiaacuteHypertensionacuteLumbar spondylosisacuteOSA (obstructive sleep apnea)acuteThrombophiliaacuteType 2 diabetes mellitus with hyperglycemiaacuteAnticoagulant long-term useacuteChronic painacuteLumbosacral spondylosisacutePost laminectomy syndromeacuteSacroiliitis acuteChronic painacuteLumbosacral spondylosisacutePost laminectomy syndromeacute Sacroiliitisacute [facility] Work Phone: Evaluation note* Diagnosis Onset Date Resolution Status Admit Date Generalized seizure disorder acuteJanuary 2024 10:20amHypercholesteremiaacuteJanuary 2024 10:20am HypertensionacuteJanuary 2024 10:20amIron deficiency anemiaacuteJanuary 2024 10:20amLumbar spondylosisacuteJanuary 2024 10:20amOSA (obstructive sleep apnea)acuteJanuary 2024 10:20amThrombophiliaacute December 07, 2024 10:20amType 2 diabetes mellitus with hyperglycemiaacute December 07, 2024 10:20am [facility] Work Phone: Evaluation note* Diagnosis Low [...] History fracture repair right femurHospitalization Historysee above [employer] Other History general Narrative - Reported* Type Description Date Medical History astma Medical HistoryOsteoporosisMedical HistoryHTN (hypertension)Medical History HypercholesteremiaSurgical HistoryBL/CTRSurgical HistorycraniotomySurgical Historyrotator cup repairSurgical Historyrt knee arthosopy,chondroplastySurgical HistoryColonoscopyurgical HistoryEGD-2004Surgical HistoryRT TKASurgical HistoryCystoscopySurgical Historylao sigmoid resectionSurgical History cholecystectomySurgical HistoryIVC filterSurgical Historyknee replacement left Surgical Historyfracture repair right femurHospitalization Historysee above [employer] Other Hospital Discharge instructions No data available for this section [facility] [place] Reason for referral (narrative)* Reason Referral for lower e xtremity ulceration Diagnosis 1 Ulcer associated wit h varicose vein, with infection (I83.209) Referral Organization [facility] Genna cano Referring Provider First Name Robert Referring Provider Last Name Genna Referring Provider Specialty Internal Me dicine Referred Organization [facility] Referred Address [address] [place], [place],[address] Referred Provider Specialty Wound Care Referral Priority Routine General Notes Mrs. Tavarez has chroni c venous insufficiency and suffered a contusion injury to her RLE, which resulted in a nonhealing ulceration. It was sutured by the ER but didn't result in wound closure. She is being referred for debridement and bandaging. She was empirically placed on Mupirocin and Cephalexin. [employer] Other Reason for referral (narrative)No reason for referral information availableSheltering Arms Hospital Work Phone: Reason for visit NarrativeReferral Dr. Conley [facility]NSt. [facility] [employer] Other reason for visit Narrative* Rehabilitation - Outpatient (Routine) - AuthorizedSpecialtyDiagnoses / ProceduresReferred By ContactReferred To ContactPhysical Therapy Diagnoses Low back pain, unspecified Proximal Leg Pain Procedures [facility] EVALUATION LOW COMPLEX 20 MINS [facility] OFFICE/OUTPATIENT NEW HIGH MDM 60 MINUTES Robert Vail MD [address] [place] [address] Phone: tel: fax: [facility] [address] [address] Phone: tel: fax: Referral IDStatusReasonStart DateExpiration DateVisits RequestedVisits [id number]/14/20258/13/20252020 [facility] HealthcareReason for visit Narrative* Rehabilitation - Outpatient (Routine) - AuthorizedSpecialtyDiagnoses / ProceduresReferred By ContactReferred To ContactPhysical Therapy Diagnoses Low back pain, unspecified Proximal Leg Pain Procedures [facility] PHYSICAL THERAPY EVALUATION LOW COMPLEX 20 MINS VA OFFICE/OUTPATIENT NEW [facility] MDM 60 MINUTES Robert Vail MD [address] [place] [address] Phone: tel: fax: [facility] [address] [address] Phone: tel: fax: Referral IDStatusReasonStart DateExpiration DateVisits RequestedVisits [id number]/14/202512/31/20252030 [facility] HealthcareReason for visit Narrative* Rehabilitation - Outpatient (Routine) - AuthorizedSpecialtyDiagnoses / ProceduresReferred By ContactReferred To ContactPhysical Therapy Diagnoses Low back pain, unspecified Proximal Leg Pain Procedures [facility] PHYSICAL THERAPY EVALUATION LOW COMPLEX 20 MINS VA OFFICE/OUTPATIENT NEW HIGH MDM 60 MINUTES Robert Vail MD Phone: tel: fax: [facility] [address] [address] Phone: tel: fax: Referral IDStatusReasonStart DateExpiration DateVisits RequestedVisits [id number]/14/202512/31/20252030 [facility] HealthcareReason for visit Narrative* Rehabilitation - Outpatient (Routine) - AuthorizedSpecialtyDiagnoses / ProceduresReferred By ContactReferred To ContactPhysical Therapy Diagnoses Low back pain, unspecified Proximal Leg Pain Procedures [facility] PHYSICAL THERAPY EVALUATION LOW COMPLEX 20 MINS VA OFFICE/OUTPATIENT NEW HIGH MDM 60 MINUTES Robert Vail MD Phone: tel: fax: [facility] [address] [address] Phone: tel: fax: Referral IDStatusReasonStart DateExpiration DateVisits RequestedVisits [id number]/14/202512/31/20252030 [facility] HealthcareReason for visit Narrative* Rehabilitation - Outpatient (Routine) - AuthorizedSpecialtyDiagnoses / ProceduresReferred By ContactReferred To ContactPhysical Therapy Diagnoses Low back pain, unspecified Proximal Leg Pain Procedures [facility] PHYSICAL THERAPY EVALUATION LOW COMPLEX 20 MINS VA OFFICE/OUTPATIENT NEW HIGH MDM 60 MINUTES Robert Vail DO Phone: tel: fax: [facility] [address] [address] Phone: tel: fax: Referral IDStatusReasonStart DateExpiration DateVisits RequestedVisits [id number]/14/202512/31/20252030 [facility] HealthcareReason for visit Narrative* Rehabilitation - Outpatient (Routine) - ClosedSpecialtyDiagnoses / ProceduresReferred By ContactReferred To Contact Physical Therapy Diagnoses Low back pain, unspecified Proximal Leg Pain Procedures [facility] PHYSICAL THERAPY EVALUATION LOW COMPLEX 20 MINS VA OFFICE/OUTPATIENT NEW HIGH MDM 60 MINUTES Robert Vail DO Phone: tel: fax: [facility] [address] [address] Phone: tel: fax: Referral IDStatusReasonStart DateExpiration DateVisits RequestedVisits [id number]/14/202512/31/20252030 [facility] Summary Purpose Family History Relationship [...] No March 20 1:53pm Hospital Course Note [facility] Clinical Discharge Summary PERSON INFORMATION Name SANDRA TAVAREZ Age 79 Years 1940 Sex FEMALE Language Kyrgyz PCP Robert Vail Marital Status Med Service Med/Surg Acct# Arrival 05/23/2020 09:44:18 Visit Reason SURGERY - LEFT TOTAL KNEE Acuity LOS Address: [address] [place] [address] Comment: PROVIDER INFORMATION VITALS INFORMATION Vital Sign [...] whether neurogenic claudication present (M48.061) Referral Organization [facility] Ne urosurgery Referring Provider First Name Usama Referring Provider Last Name Eusebio Referring Provider Specialty Neurologica l Surgery Referred Organization [facility] Pain Managemen t Referred Provider Michael Dunaway Referred Address [address],[place] [address] ,[place], [place],[address] Referred Provider Specialty Pain Medicin e Referral [...] pain Ischial bursitis Lumbosacral spondylosis Chief Complaint [facility] INCREASED BUTTOCK PAIN [...] Lumbosacral spondylosis Post laminectomy syndrome Chief Complaint [facility] INCREASED BUTTOCK PAIN Z79.01 M47.817 M70.70 ELIQUISKRISTOFER ISCHIAL BURSA INJ FOLLOW UP AFTER KRSITOFER ISCHIAL BURSA INJ M96.1Reason for VisitGeneralized seizure [...] L3, L4, L5 March 28, 2025 10:14am [facility] Well[facility] - HIGH RISK [...] L3, L4, L5 March 28, 2025 10:14am [facility] [place] Wellness - HIGH RISK April 09, 2025 10:24am 2 week follow up after RFA April 15 1:48pm follow up after lumbar RFA May 06 11:46am right leg wound May 06, 2025 1:20p m Chief Complaint Admit Date f/u after kristofer lumbar MBB March 20 1:27pm Coumadin kristofer lumbar facet RFA L3, L4, L5 March 28, 2025 10:14am [facility] [place] Wellness - HIGH RISK [...] L3, L4, L5 March 28, 2025 10:14am [facility] [place] [facility] Wellness - HIGH RISK [...] 10:31am Type 2 diabetes mellitus with hyperglyce [facility] August 12, 2025 10:31am Chief Complaint Admit [...] 10:31am Type 2 diabetes mellitus with hyperglyce [facility] August 12, 2025 10:31am Venous hypertension, chronic, with ulcer August 12, 2025 10:31am Anticoagulant long-term use August 12:00pm Other chronic pain September 23, 2025 1 2:00pm Post laminectomy syndrome September 23, 2025 12:00pm Sacroiliitis September 23, 2025 1 2:00pm Additional Source Comments INFORMATION SOURCE (unrecogn ized section and content) DATE CREATED AUTHOR 08/15/2020 [facility] DATE CREATED AUTHOR AUTHOR'S ORGANIZ ATION 04/11/2023 [facility] DATE CREATED AUTHOR AUTHOR'S ORGANIZ ATION 01/08/2025 [facility] DATE CREATED AUTHOR AUTHOR'S ORGANIZ ATION 04/12/2025 [facility] DATE CREATED AUTHOR AUTHOR'S ORGANIZ ATION 05/12/2025 [facility] EPIC REASON FOR VISIT (unrecogniz ed section and content) ReasonOnset DateCommentsCx PT 01/28/2503 month Follow upHEAD COLD, TIREDLab resultstemp [id number] results1 month Follow upTBHMedication Qu estionmessage4 month/suture [...] Care Provider Active Start: May 10, 2024 Micahel Dunaway , MDAttending ProviderActiveStart: May 10, 2024 [...] DateEnd Date Robert Vail MD [address] [place] [address] PCP - GeneralInternal Medicine04/03/24Team MemberRelationshipSpecialtyStart Date End Date Robert Vail MD [address] [facility] [place] [address] PCP - GeneralInternal Medicine04/03/24Team MemberRelationshipSpecialtyStart Date End Date Robert Vail MD [address] [facility] [place] [address] PCP - GeneralInternal Medicine04/03/24am MemberRelationshipSpecialtyStart Date End Date Robert Vail MD [address] [facility] [place] [phone] PCP - GeneralInternal Medicine04/03/24Team MemberRelationshipSpecialtyStart Date End Date Robert Vail MD [address] [facility] [place] [address] PCP - GeneralInternal Medicine04/03/24Team MemberRelationshipSpecialtyStart Date End Date Robert Vail MD [address] [facility] [place] [address] PCP - GeneralInternal Medicine04/03/24Team MemberRelationshipSpecialtyStart Date End Date Robert Vail MD [address] [facility] [place] [address] PCP - GeneralInternal Medicine04/03/24Team MemberRelationshipSpecialtyStart Date End Date Robert Vail MD [address] [facility] [place] [phone] PCP - GeneralInternal Medicine04/03/24Team MemberRelationshipSpecialtyStart Date End Date Robert Vail MD [address] [place] [phone] PCP - GeneralInternal Medicine04/03/24Team MemberRelationshipSpecialtyStart Date [...] Date Robert Vail DO PCP - GeneralInternal [facility]04/03/24Team MemberRelationshipSpecialtyStart Date End Date Robert Vail DO PCP - GeneralInternal [facility]04/03/24Te MemberRelationshipSpecialtyStart Date End Date Robert Vail DO PCP - [facility] Hospitalnal [facility]04/03/24 Team Status: Inactive Member Role Status Dates Robert Vail DO Primary Care Provide r, Attending Provider Active Start: April 09, 2025 End: April 09, 2025Team MemberRelationshipSpecialtyStart DateEnd Date Robert Vail DO PCP - GeneralB[facility] Hospitalnal [facility]04/03/24Team MemberRelationshipSpecialtyStart Date End Date Robert Vail DO [facility]Va [facility]/03/24Team MemberRelationshipSpecialtyStart Date End Date Robert Vail DO PCP - GeneralInternal [facility]04/03/24Team MemberRelationshipSpecialtyStart Date End Date Robert Vail DO PCP - GeneralB[facility] Heart Hospitalnal [facility]04/03/24Te MemberRelationshipSpecialtyStart Date End Date Robert Vail DO PCP - GeneralInternal [facility]04/03/24Te MemberRelationshipSpecialtyStart Date End Date Robert Vail PCP - [facility]Ad[facility]04/03/24 Team Status: Inactive Member Role Status [...] 2025 End: June 14, 2025Morena Donato APRN [employer]-CAttending ProviderActive Start: June 14, 2025 End: June [...] BE BASED ON THE PRIMARY CLINICAL RECORDS. [facility] [employer] provides no warranty or guarantee of the accuracy or completeness of information in this document.
== END 2025-11-05 11:06 | disposition home or self-care (01) ==
LOC: WC 11:06
PROVIDERS: PCP Internal Medicine; Visit Provider Physician Assistant
DX: I87.311 Chronic venous hypertension (idiopathic) with ulcer of right lower extremity (principal); L97.812 Non-pressure chronic ulcer of other part of right lower leg with fat layer exposed
CPT/HCPCS: G0463

== ENCOUNTER 2025-11-18 11:08 | Outpatient (OUT) | payer MEDICARE, OTHER, SELFPAY ==
--- OUTSIDE RECORDS SUMMARY | 2025-11-18 11:11 | XMS_ITS | Clinical Summary ---
Author Organization [facility] Address [address] [place] [id number] Care Team Providers Care Rotary Drier Feeder Name Role Phone Unavailable Primary Care Provider Unavailabl e Allergies Active AllergyReactionsCriticalityNoted DateCommentsAdhesive Tape (Rosins)Rash 04/03/20152302QjqdwldrhEhagixcf35/19/3818QdvqpujwqvyQhfbqsje04/19/2015 Medications MedicationSigDispense QuantityRefillsLast FilledStart DateEnd DateStatus phenytoin [...] ProblemNoted DateDiagnosed DateBilateral leg edema07/08/2015Delayed surgical wound zlpymks8906/06/2015Delayed wound wmrspql0804/29/2015Morbid obesity with BMI of 50.0-59.9, adult04/29/2015S/P laminectomy with spinal lwipgk6204/29/2015Pulmonary iooqprux56/07/2015drenal mass02/06/2015Thyroid mass02/06/2015Thoracic compression /05/7314Fowoklwqvyyt04/05/2015Preoperative cardiovascular zzdqagarxzi02/24/2015Lumbar stenosis with neurogenic amfvmooseoos09/19/2015 Spondylolisthesis at L4-L5 level01/16/2015nemiaBursitisHTN (hypertension)High cholesterolSleep apneaCHF (congestive heart failure)BMI 45.0-49.9, adult Family History Medical HistoryRelationCommentsCancerFatherheart attack [Other]FatherStroke Maternal GrandfatherArthritisMotherStrokeMotherDiabetesSisterHTN [Other]Sister RelationStatusCommentsFatherMaternal GrandfatherMotherSister Social History Tobacco UseTypesPacks/DayYears UsedDateSmoking Tobacco: EcipfbDrdoopqfvn049 11/28/1959 - 11/28/1991 Comments:Quit 1991 Alcohol UseStandard Drinks/WeekCommentsNo0 (1 standard drink = 0.6 oz pure alcohol)CommentsNoSex and Gender InformationValueDate RecordedSex Assigned at BirthNot on fileLegal YwkLteqaq18/17/2014 11:48 AM ESTGender IdentityNot on fileSexual OrientationNot on fileOccupationIndustryJob Start Date Job End DateassemblyNot on fileNot on fileNot on file Last Filed Vital Signs Vital SignReadingTime TakenCommentsBlood Dwxbgoqc407/7805 9:34 AM EDT Xhwfr023004/27/2016 9:34 AM MRJDtninbmmeuy34.5 ??C (97.7 ??F)04/27/2016 9:34 AM EDTRespiratory Mhsi8926 9:34 AM EDTOxygen Fzggcjneyq75%04/27/2016 9:34 AM EDTInhaled Oxygen Concentration--Aahpns084.7 kg (252 lb 12.8 oz)04/27/2016 9:34 AM AEAPcvtts557.4 cm (5')04/27/2016 9:34 AM EDTBody Mass Index49.37 04/27/2016 9:34 AM EDT Plan of Treatment Health MaintenanceDue DateLast DoneCommentsAnxiety Gklbvbqrx87/14/1960Depression Jgmjrzzgt31/14/1960DTaP,Tdap,Td Vaccine (1 - Tdap)1Diabetes Screening 1986Pneumococcal Vaccine: 50+ (1 of 1 - PCV)1991Shingrix Vaccine (1 of 2)1991Bone Density Uiolxfdel19/14/2007RSV Vaccine (1 - 1-dose 75+ series)2016Advance Directive Fsxpsdvnrp26/01/2025ovid-19 Vaccine (1 - 2024-26 season)2025Influenza Vaccine (#1)2025 Insurance
--- OUTSIDE RECORDS SUMMARY | 2025-11-18 11:11 | XMS_ITS | Clinical Summary ---
Author Organization [facility] Address [address] [place] [address] Care Team Providers Care Mastic Worker Name Role Phone Robert Lopez DO Primary Care Provider [phone] Allergies Active AllergyReactionsCriticalityNoted DateCommentsCelecoxibHives,Itching,Rash, FnevvangPue16/19/2015PenicillinsRash,Itching,SukcoodlPlk61/19/2015 Pt. states PCN doesn't work for me, it just doesn't work Wound Dressing GlsklaqnNznyBom08/04/2023 Medications MedicationSigDispense QuantityRefillsLast FilledStart DateEnd DateStatus ferrous [...] InformationValueDate RecordedSex Assigned at BirthNot on fileLegal TokXaeldq06/15/2023 6:56 PM EDTGender Identity Not on fileSexual OrientationNot on file Last Filed Vital Signs Vital SignReadingTime TakenCommentsBlood Xqkgycoo470/90007/15/2022 12:00 PM EDT Pulse--Temperature--Respiratory Rate--Oxygen Saturation--Inhaled Oxygen Concentration--Xmhgbe839 kg (275 lb)10/31/2023 10:59 AM CWUFhwssz245.4 cm (5') 07/15/2022 12:00 PM EDTBody Mass Index53.71007/15/2022 12:00 PM EDT Plan of Treatment DateTypeDepartmentCare Team (Latest Contact Info)Yyyuamrdhbx73/11/2026 11:15 AM EDTOffice Visit [facility] [address] [place] [address] Jr. Jovi Silva, DO [address] [facility] [address] [place] [address] Health MaintenanceDue DateLast DoneCommentsPneumococcal Vaccine: 65+ Years (2 of 2 - PCV)COVID-19 Vaccine ( season)2025 10/05/2021, 02/11/2021, 01/21/2021Influenza Vaccine (#1)/07/2024, 10/13/2022, 11/16/2019, Additional [place] [id number] Care Teams Team MemberRelationshipSpecialtyStart DateEnd Date Robert Lopez DO PCP - GeneralInternal Medicine04/03/24
--- OUTSIDE RECORDS SUMMARY | 2025-11-18 11:12 | XMS_ITS | Patient Health Record ---
Author Organization [facility] [place] Address [address] [place] [address] Care Team Providers Care Renal Nurse Name Role Phone Robert Lopez DO Primary Care Provider Unavaila ble Reason For Referral No Information Medications Medication SIG (Take, Route, Frequency, Duration) Notes Start Date End Date Status hydroCHLOROthiazide 25 mg tablet DAILY ActiveNorco 325 mg-5 mgtablet Q6H11/28/18995863RjblzkRzdbubal64/01/1900 DreectAtrgfsak46/01/1900ActiveSM Abbvvzjtri62/01/8511YvjladQhtlvi Activepotassium rwnvelna27/01/8614ZocijghcaatMLS36/01/1900Active Problems Problem Type SNOMED Code ICD Code Onset Dates Problem Status W/U Status Risk Notes Problem Stasis dermatitis co -occurrent with venous ulcer of right lower extremity due to chronic peripheral venous hypertension (974104882788534) Chronic venous hypertension (idiopathic) with ulcer and inflammation of right lower extremity (I87.331) ActiveconfirmedProblemChronic ulcer of lower extremity (58075163)Non-pressure chronic ulcer of other part of right lower leg limited to breakdown of skin (L97.811)ActiveconfirmedProblemChronic non-pressure ulcer of calf extending to fat level (83690503239638532)Non-pressure chronic ulcer of other part of right lower leg with fat layer exposed (L97.812)ActiveconfirmedProblemSleep apnea (91678272)Sleep apnea (G47.30)ActiveconfirmedProblemAcquired lymphedema (38812120)Acquired lymphedema (I89.0)ActiveconfirmedProblemStasis dermatitis co- occurrent with venous ulcer of right lower extremity due to chronic peripheral venous hypertension (329937044010318)Idiopathic chronic venous hypertension of right lower extremity with ulcer (I87.311)ActiveconfirmedProblemEssential hypertension (97007599)BP (high blood pressure) (I10)ActiveconfirmedProblem Hypercholesterolemia (54355747)Hypercholesterolemia (E78.00)Activeconfirmed ProblemChronic ulcer of left leg, with [...] End Date [place] [address] [place] [address] [id number] Marine Tavarez - patient is the [id number] 2006MUTUAL OF [id number] [place] [facility] 8 MEDICARE SUPP CLMS DEPT [place] [id number] Marine Gamez - patient is the [id number] 2010 Medical (General) History Surgical History Surgery [...]
== END 2025-11-18 11:09 | disposition home or self-care (01) ==
LOC: WC 11:08
PROVIDERS: PCP Internal Medicine; Visit Provider Physician Assistant
DX: I87.311 Chronic venous hypertension (idiopathic) with ulcer of right lower extremity (principal); L97.812 Non-pressure chronic ulcer of other part of right lower leg with fat layer exposed
CPT/HCPCS: G0463